=== PATIENT | female | born 1950 | race American Indian/Alaskan Native ===

== ENCOUNTER 2018-07-31 20:35 | Inpatient (IN) | payer MEDICARE ==
[2018-07-31] MEDS ORDERED: NACL 0.9% 500 ML 500 ML IV ONE (21:01)
[2018-07-31] MEDS ORDERED: KEPPRA 1,000 MG/NS 0.75% 100ML 1,000 MG/100 ML BAG IV ONE (21:03)
--- NOTE | 2018-07-31 21:14 | Emergency Department Report ---
ED Altered Mental Status HPI - General Stated Complaint: WEAKNESS Time Seen by Provider: 07/31/18 20:50 - History of Present Illness Initial Comments: Mrs. Jones is a 67 yo female with hx of alcoholism, diabetes, seizure disorder, hepatic encephalopathy, alcohol related dementia, Hepatitis C, alcoholic liver disease who presents with altered mental status. Roommate reported to EMS that patient has been sitting on the couch in her own feces for the past 3 days without moving. Patient unable to give history due to altered mental status. Medical history obtained from EMR. In 2017, Mrs. Jones had a prolonged ICU course including intubation, tracheostomy, hemodialysis for status epilepticus, gram negative sepisis, hepatic encephalopathy. According to male friend, her last drink of alcohol was 4-5 days ago. She does not take any of her prescribed medications. She recently was discharged from a senior living 4-5 months ago. MD Complaint: altered mental status -: Gradual, days(s) (3) Severity: severe Consistency of Symptoms: getting worse Context: alcohol abuse Associated Symptoms: other (unable to obtain) - Related Data Previous Rx's Medication Instructions Recorded Last Taken Type Folic Acid [Folvite] 1 mg PO DAILY #30 tablet 01/29/17 Unknown Rx Ipratropium/Albuterol Sulfate 1 ampul IH Q6HRT #30 ampul.neb 01/29/17 Unknown Rx [DUONEB *Not for PRN Use*] Multivitamins Liq [Multiple 5 ml PO QDAY #5 oral.liqd 01/29/17 Unknown Rx Vitamin Liq (Theragran)] Petrolatum,White [Vaseline Lip 1 applic TP Q2HR PRN #1 tube 01/29/17 Unknown Rx Therapy] Potassium Chloride [K-Dur] 20 meq PO QDAY #10 tablet 01/29/17 Unknown Rx Rifaximin [Xifaxan] 550 mg PO BID #66 tablet 01/29/17 Unknown Rx Thiamine [Vitamin B-1] 100 mg PO QDAY #30 tablet 01/29/17 Unknown Rx Verapamil [Calan] 80 mg PO Q8HR #90 tablet 01/29/17 Unknown Rx levETIRAcetam [Keppra TAB] 750 mg PO BID #60 tablet 01/29/17 Unknown Rx Allergies Allergy/AdvReac Type Severity Reaction Status Date / Time No Known Allergies Allergy Verified 01/06/17 23:38 ED Review of Systems ROS: Stated complaint: WEAKNESS Other details as noted in HPI Comment: Unobtainable due to pts medical conditions (unable to obtain due to altered mental status) ED Past Medical Hx - Past Medical History Previous Medical History?: Yes Hx Congestive Heart Failure: No Hx Diabetes: No Hx Deep Vein Thrombosis: No Hx Seizures: Yes (- 12/2016) Hx Asthma: No Hx COPD: No Additional medical history: alcoholism - Surgical History Hx Pacemaker: No Hx Internal Defibrillator: No - Family History Family history: other (unable to be obtained) - Social History Smoking Status: Unknown if ever smoked Substance Use Type: Alcohol - Medications Home Medications: Home Medications Medication Instructions Recorded Confirmed Last Taken Type Folic Acid [Folvite] 1 mg PO DAILY #30 tablet 01/29/17 Unknown Rx Ipratropium/Albuterol Sulfate 1 ampul IH Q6HRT #30 ampul.neb 01/29/17 Unknown Rx [DUONEB *Not for PRN Use*] Multivitamins Liq [Multiple 5 ml PO QDAY #5 oral.liqd 01/29/17 Unknown Rx Vitamin Liq (Theragran)] Petrolatum,White [Vaseline Lip 1 applic TP Q2HR PRN #1 tube 01/29/17 Unknown Rx Therapy] Potassium Chloride [K-Dur] 20 meq PO QDAY #10 tablet 01/29/17 Unknown Rx Rifaximin [Xifaxan] 550 mg PO BID #66 tablet 01/29/17 Unknown Rx Thiamine [Vitamin B-1] 100 mg PO QDAY #30 tablet 01/29/17 Unknown Rx Verapamil [Calan] 80 mg PO Q8HR #90 tablet 01/29/17 Unknown Rx levETIRAcetam [Keppra TAB] 750 mg PO BID #60 tablet 01/29/17 Unknown Rx ED Physical Exam - General General appearance: lethargic, other (when asked name: She says "10") - Head Head exam: Present: atraumatic, normocephalic - Eye Eye exam: Present: conjunctival injection, other (dried discharge on eyelids) Pupils: Present: normal accommodation, irregular - ENT ENT exam: Present: mucous membranes dry - Neck Neck exam: Present: normal inspection, full ROM. Absent: tenderness - Respiratory Respiratory exam: Present: normal lung sounds bilaterally. Absent: respiratory distress, wheezes, rales, rhonchi - Cardiovascular Cardiovascular Exam: Present: normal rhythm, tachycardia, normal heart sounds. Absent: systolic murmur, diastolic murmur, rubs, gallop - GI/Abdominal GI/Abdominal exam: Present: soft, normal bowel sounds. Absent: distended, tenderness, guarding, rebound - Extremities Exam Extremities exam: Present: normal inspection - Back Exam Back exam: Present: normal inspection - Neurological Exam Neurological exam: Present: altered - Psychiatric Psychiatric exam: Present: flat affect - Skin Skin exam: Present: dry, other (diffuse moist excoriated skin buttocks, back, lichenified skin ankles, healing laceration left thigh). Absent: rash - Other Other exam information: Moist erythematous patches under breasts and abdominal pannus ED Course Vital Signs 07/31/18 07/31/18 21:08 22:56 Temperature 98.0 F Pulse Rate 113 H Respiratory 20 20 Rate Blood Pressure 164/92 [Left] O2 Sat by Pulse 99 99 Oximetry - Lab Data Result diagrams: 07/31/18 21:36 07/31/18 21:36 Lab Results 07/31/18 07/31/18 07/31/18 Range/Units 21:36 21:36 21:36 WBC 6.0 (4.5-11.0) K/mm3 RBC 4.72 (3.65-5.03) M/mm3 Hgb 17.7 H (10.1-14.3) gm/dl Hct 50.7 H (30.3-42.9) % MCV 108 H (79-97) fl MCH 37 H (28-32) pg MCHC 35 H (30-34) % RDW 15.9 H (13.2-15.2) % Plt Count (140-440) K/mm3 [place] % (Auto) [employer] Winder PT 17.2 H (12.2-14.9) Sec. INR 1.32 H (0.87-1.13) Sodium (137-145) mmol/L Potassium (3.6-5.0) mmol/L Chloride (98-107) mmol/L Carbon Dioxide (22-30) mmol/L Anion Gap mmol/L BUN (7-17) mg/dL Creatinine (0.7-1.2) mg/dL Estimated GFR ml/min BUN/Creatinine Ratio % Glucose (65-100) mg/dL Lactic Acid 3.30 H* (0.7-2.0) mmol/L Calcium (8.4-10.2) mg/dL Total Bilirubin (0.1-1.2) mg/dL AST (5-40) units/L ALT (7-56) units/L Alkaline Phosphatase (35-129) units/L Ammonia (25-60) umol/L Total Creatine Kinase (30-135) units/L Troponin T (0.00-0.029) ng/mL Total Protein (6.3-8.2) g/dL Albumin (3.9-5) g/dL Albumin/Globulin Ratio % TSH (0.270-4.200) mlU/mL Urine Color (Yellow) Urine Turbidity (Clear) Urine pH (5.0-7.0) Ur Specific [place] (1.003-1.030) Urine Protein (Negative) mg/dL Urine Glucose (UA) (Negative) mg/dL Urine Ketones (Negative) mg/dL Urine Blood (Negative) Urine Nitrite (Negative) Urine Bilirubin (Negative) Urine Urobilinogen (<2.0) mg/dL Ur Leukocyte Esterase (Negative) Urine WBC (Auto) (0.0-6.0) /HPF Urine RBC (Auto) (0.0-6.0) /HPF U Epithel Cells (Auto) (0-13.0) /HPF Urine Mucus /HPF Salicylates (2.8-20.0) mg/dL Urine Opiates Screen Urine Methadone Screen Acetaminophen (10.0-30.0) ug/mL Ur Barbiturates Screen Ur Phencyclidine Scrn Ur Amphetamines Screen U Benzodiazepines Scrn Urine Cocaine Screen U Marijuana (THC) Screen Drugs of Abuse Note Plasma/Serum Alcohol (0-0.07) % 07/31/18 07/31/18 07/31/18 Range/Units 21:36 21:36 21:36 WBC (4.5-11.0) K/mm3 RBC (3.65-5.03) M/mm3 Hgb (10.1-14.3) gm/dl Hct (30.3-42.9) % MCV (79-97) fl MCH (28-32) pg MCHC (30-34) % RDW (13.2-15.2) % Plt Count (140-440) K/mm3 [place] % (Auto) PT (12.2-14.9) Sec. INR (0.87-1.13) Sodium 144 (137-145) mmol/L Potassium 3.8 (3.6-5.0) mmol/L Chloride 98.3 (98-107) mmol/L Carbon Dioxide 26 (22-30) mmol/L Anion Gap 24 mmol/L BUN 43 H (7-17) mg/dL Creatinine 1.2 (0.7-1.2) mg/dL Estimated GFR 55 ml/min BUN/Creatinine Ratio 36 % Glucose 148 H (65-100) mg/dL Lactic Acid (0.7-2.0) mmol/L Calcium 10.0 (8.4-10.2) mg/dL Total Bilirubin 5.70 H (0.1-1.2) mg/dL AST 63 H (5-40) units/L ALT 38 (7-56) units/L Alkaline Phosphatase 96 (35-129) units/L Ammonia 166.0 H (25-60) umol/L Total Creatine Kinase 292 H (30-135) units/L Troponin T 0.025 (0.00-0.029) ng/mL Total Protein 8.4 H (6.3-8.2) g/dL Albumin 3.3 L (3.9-5) g/dL Albumin/Globulin Ratio 0.6 % TSH 1.840 (0.270-4.200) mlU/mL Urine Color (Yellow) Urine Turbidity (Clear) Urine pH (5.0-7.0) Ur Specific [place] (1.003-1.030) Urine Protein (Negative) mg/dL Urine Glucose (UA) (Negative) mg/dL Urine Ketones (Negative) mg/dL Urine Blood (Negative) Urine Nitrite (Negative) Urine Bilirubin (Negative) Urine Urobilinogen (<2.0) mg/dL Ur Leukocyte Esterase (Negative) Urine WBC (Auto) (0.0-6.0) /HPF Urine RBC (Auto) (0.0-6.0) /HPF U Epithel Cells (Auto) (0-13.0) /HPF Urine Mucus /HPF Salicylates (2.8-20.0) mg/dL Urine Opiates Screen Urine Methadone Screen Acetaminophen (10.0-30.0) ug/mL Ur Barbiturates Screen Ur Phencyclidine Scrn Ur Amphetamines Screen U Benzodiazepines Scrn Urine Cocaine Screen U Marijuana (THC) Screen Drugs of Abuse Note Plasma/Serum Alcohol (0-0.07) % 07/31/18 07/31/18 07/31/18 Range/Units 21:36 22:36 22:36 WBC (4.5-11.0) K/mm3 RBC (3.65-5.03) M/mm3 Hgb (10.1-14.3) gm/dl Hct (30.3-42.9) % MCV (79-97) fl MCH (28-32) pg MCHC (30-34) % RDW (13.2-15.2) % Plt Count (140-440) K/mm3 [place] % (Auto) PT (12.2-14.9) Sec. INR (0.87-1.13) Sodium (137-145) mmol/L Potassium (3.6-5.0) mmol/L Chloride (98-107) mmol/L Carbon Dioxide (22-30) mmol/L Anion Gap mmol/L BUN (7-17) mg/dL Creatinine (0.7-1.2) mg/dL Estimated GFR ml/min BUN/Creatinine Ratio % Glucose (65-100) mg/dL Lactic Acid (0.7-2.0) mmol/L Calcium (8.4-10.2) mg/dL Total Bilirubin (0.1-1.2) mg/dL AST (5-40) units/L ALT (7-56) units/L Alkaline Phosphatase (35-129) units/L Ammonia (25-60) umol/L Total Creatine Kinase (30-135) units/L Troponin T (0.00-0.029) ng/mL Total Protein (6.3-8.2) g/dL Albumin (3.9-5) g/dL Albumin/Globulin Ratio % TSH (0.270-4.200) mlU/mL Urine Color [place] (Yellow) Urine Turbidity Clear (Clear) Urine pH 5.0 (5.0-7.0) Ur Specific [place] 1.028 (1.003-1.030) Urine Protein 100 mg/dl (Negative) mg/dL Urine Glucose (UA) Neg (Negative) mg/dL Urine Ketones Neg (Negative) mg/dL Urine Blood Sm (Negative) Urine Nitrite Neg (Negative) Urine Bilirubin Neg (Negative) Urine Urobilinogen 4.0 (<2.0) mg/dL Ur Leukocyte Esterase Mod (Negative) Urine WBC (Auto) 118.0 H (0.0-6.0) /HPF Urine RBC (Auto) 5.0 (0.0-6.0) /HPF U Epithel Cells (Auto) 3.0 (0-13.0) /HPF Urine Mucus Few /HPF Salicylates (2.8-20.0) mg/dL Urine Opiates Screen Presumptive negative Urine Methadone Screen Presumptive negative Acetaminophen < 5.0 L (10.0-30.0) ug/mL Ur Barbiturates Screen Presumptive negative Ur Phencyclidine Scrn Presumptive negative Ur Amphetamines Screen Presumptive negative U Benzodiazepines Scrn Presumptive negative Urine Cocaine Screen Presumptive negative U Marijuana (THC) Screen Presumptive negative Drugs of Abuse Note Disclamer Plasma/Serum Alcohol (0-0.07) % 07/31/18 07/31/18 07/31/18 Range/Units 22:36 Unknown Unknown WBC (4.5-11.0) K/mm3 RBC (3.65-5.03) M/mm3 Hgb (10.1-14.3) gm/dl Hct (30.3-42.9) % MCV (79-97) fl MCH (28-32) pg MCHC (30-34) % RDW (13.2-15.2) % Plt Count (140-440) K/mm3 [place] % (Auto) PT (12.2-14.9) Sec. INR (0.87-1.13) Sodium (137-145) mmol/L Potassium (3.6-5.0) mmol/L Chloride (98-107) mmol/L Carbon Dioxide (22-30) mmol/L Anion Gap mmol/L BUN (7-17) mg/dL Creatinine (0.7-1.2) mg/dL Estimated GFR ml/min BUN/Creatinine Ratio % Glucose (65-100) mg/dL Lactic Acid 4.30 H* (0.7-2.0) mmol/L Calcium (8.4-10.2) mg/dL Total Bilirubin (0.1-1.2) mg/dL AST (5-40) units/L ALT (7-56) units/L Alkaline Phosphatase (35-129) units/L Ammonia (25-60) umol/L Total Creatine Kinase (30-135) units/L Troponin T (0.00-0.029) ng/mL Total Protein (6.3-8.2) g/dL Albumin (3.9-5) g/dL Albumin/Globulin Ratio % TSH (0.270-4.200) mlU/mL Urine Color (Yellow) Urine Turbidity (Clear) Urine pH (5.0-7.0) Ur Specific [place] (1.003-1.030) Urine Protein (Negative) mg/dL Urine Glucose (UA) (Negative) mg/dL Urine Ketones (Negative) mg/dL Urine Blood (Negative) Urine Nitrite (Negative) Urine Bilirubin (Negative) Urine Urobilinogen (<2.0) mg/dL Ur Leukocyte Esterase (Negative) Urine WBC (Auto) (0.0-6.0) /HPF Urine RBC (Auto) (0.0-6.0) /HPF U Epithel Cells (Auto) (0-13.0) /HPF Urine Mucus /HPF Salicylates < 0.3 L (2.8-20.0) mg/dL Urine Opiates Screen Urine Methadone Screen Acetaminophen (10.0-30.0) ug/mL Ur Barbiturates Screen Ur Phencyclidine Scrn Ur Amphetamines Screen U Benzodiazepines Scrn Urine Cocaine Screen U Marijuana (THC) Screen Drugs of Abuse Note Plasma/Serum Alcohol < 0.01 (0-0.07) % - Medical Decision Making 1. Acute metabolic encephalopathy. Hepatic encephalopathy with hyperammonemia is evident. Also must consider delirium tremens with last drink of alcohol 4-5 as ago. Additional consideration: Wernicke's encephalopathy, NGT ordered with lactulose administered per tube 2. SIRS, lactic acidosis, UTI, cath UA specimen revealed pyuria, hx of UTI sepsis 2017, placed on sepsis protocol with IVF and broad spectrum antibiotics 3. KERRI, minimal urine output over 6 hours, poor po intake, dehydration, IVF instituted 4. Seizure disorder hx: IV keppra administed in ED 5. Sequela of alcoholic liver disease: Coagulopathy, thrombocytopenia 6. Diffuse skin excoriations due to poor hygiene, prolonged immobilization and moisture exposure, will need wound care 7. Tinea cruris at the breast and pannus Admitted to hospitalist service in guarded condition. Critical Care Time: Yes Critical care time in (mins) excluding proc time.: 65 Critical care attestation.: If time is entered above; I have spent that time in minutes in the direct care of this critically ill patient, excluding procedure time. 60 minutes of critical care time excluding procedures were used in the care of the patient. Patient required multiple assessments and interventions. I reviewed the electronic medical record. I spoke with consultants involved in the care of the patient. ED Disposition Clinical Impression: Acute hepatic encephalopathy, UTI (urinary tract infection), Sepsis, KERRI (acute kidney injury), Alcoholic liver disease, Tinea cruris, Skin breakdown Disposition: [id number] OP ADMIT IP TO THIS HOSP Is pt being admited?: Yes Does the pt Need Aspirin: No Condition: Stable
--- NOTE | 2018-07-31 22:12 | XRay Report ---
PROCEDURE: XR CHEST 1V AP TECHNIQUE: Chest radiograph single view. HISTORY: Altered Mental Status COMPARISONS: None . FINDINGS: Heart: Cardiac size is upper limit of normal. Mediastinum/Vessels: There is widening of the superior mediastinum most likely secondary to patient p ositioning. Lungs/Pleural space: Normal. Bony thorax: No acute osseous abnormality. Life support devices: None. IMPRESSION: No obvious acute abnormality. This document is electronically signed by Sim Zamora MD., July 31 2018 10:10:31 PM ET
[2018-07-31 22:15] LABS: Albumin 3.3 g/dL (3.9-5)
[2018-07-31] MEDS ORDERED: CEPHULAC FEEDTUBE STA (22:15)
[2018-07-31 22:21] LABS: INR 1.32 (0.87-1.13)
[2018-07-31 22:55] LABS: Amphetamine Screen,Urine PRESUMPTIVE NEGATIVE; Benzodiazepines Screen,Urine PRESUMPTIVE NEGATIVE; Cannabinoid Screen,Urine PRESUMPTIVE NEGATIVE; Cocaine Screen,Urine PRESUMPTIVE NEGATIVE; Methadone Screen,Urine PRESUMPTIVE NEGATIVE; Opiate Screen,Urine PRESUMPTIVE NEGATIVE
[2018-07-31] MEDS ORDERED: NACL 0.9% 1000 ML IV ONE (22:55)
--- NOTE | 2018-07-31 23:17 | Cat Scan Report ---
PROCEDURE: CT HEAD/BRAIN WO CON TECHNIQUE: Computerized tomography of the head was performed without contrast material. CT DOSE LENGTH PRODUCT: 1169 mGycm HISTORY: Altered Mental Status COMPARISONS: None . FINDINGS: Skull and scalp: Normal . Paranasal sinuses: Normal . Ventricles and subarachnoid spaces: Normal . Cerebrum: No evidence of hemorrhage, acute infarction or mass. Moderate atrophy and slight periventr icular deep white matter changes are noted. . Cerebellum and brainstem: No evidence of hemorrhage, acute infarction or mass . Vasculature: Normal . Other: None . ASPECTS: 10 IMPRESSION: There is no evidence of an acute intracranial process. Moderate atrophy and slight periv entricular deep white matter changes are noted. . This document is electronically signed by Enid Ko DO., July 31 2018 11:14:28 PM ET
[2018-07-31 23:28] LABS: Hematocrit 50.7 % (30.3-42.9); Hemoglobin 17.7 gm/dl (10.1-14.3); Mean Corpuscular HGB Conc 35 % (30-34); Mean Corpuscular Volume 108 fl (79-97); Red Blood Count 4.72 M/mm3 (3.65-5.03); Red Cell Distribution Width 15.9 % (13.2-15.2)
[2018-07-31] MEDS: MAXIPIME/NS 2 GM/100 ML 2 GM/100 ML BAG IV SCH (23:50)
[2018-07-31 23:59] LABS: Bilirubin,Urine NEG (Negative); Blood,Urine SM (Negative); Color,Urine Amber (Yellow); Mucus,Urine FEW /HPF
[2018-08-01] MEDS ORDERED: ATIVAN IV ONE (00:43)
[2018-08-01] MEDS ORDERED: NORMODYNE IV ONE (00:43)
[2018-08-01] MEDS ORDERED: ZOFRAN IV PRN (01:08)
[2018-08-01] MEDS ORDERED: SODIUM CHLORIDE FLUSH SYRINGE 10 ML IV PRN (01:08)
--- NOTE | 2018-08-01 01:12 | History and Physical Report ---
History of Present Illness Date of examination: 07/31/18 History of present illness: 67-year-old woman with a history of diabetes, seizures, hepatitis C, dementia was brought to the emergency room for evaluation of altered mental status. Physician reported that the perforation, the patient was sitting in her feces for 3 days. Unable to reach family, patient is unable to give a history, review of system is unobtainable PAST MEDICAL HISTORY:diabetes, seizures, hepatitis C, dementia PAST SURGICAL HISTORY: Unknown SOCIAL HISTORY: Unknown FAMILY HISTORY: Unknown Medications and Allergies Allergies Allergy/AdvReac Type Severity Reaction Status Date / Time No Known Allergies Allergy Verified 01/06/17 23:38 Home Medications Medication Instructions Recorded Confirmed Last Taken Type Folic Acid [Folvite] 1 mg PO DAILY #30 tablet 01/29/17 Unknown Rx Ipratropium/Albuterol Sulfate 1 ampul IH Q6HRT #30 ampul.neb 01/29/17 Unknown Rx [DUONEB *Not for PRN Use*] Multivitamins Liq [Multiple 5 ml PO QDAY #5 oral.liqd 01/29/17 Unknown Rx Vitamin Liq (Theragran)] Petrolatum,White [Vaseline Lip 1 applic TP Q2HR PRN #1 tube 01/29/17 Unknown Rx Therapy] Potassium Chloride [K-Dur] 20 meq PO QDAY #10 tablet 01/29/17 Unknown Rx Rifaximin [Xifaxan] 550 mg PO BID #66 tablet 01/29/17 Unknown Rx Thiamine [Vitamin B-1] 100 mg PO QDAY #30 tablet 01/29/17 Unknown Rx Verapamil [Calan] 80 mg PO Q8HR #90 tablet 01/29/17 Unknown Rx levETIRAcetam [Keppra TAB] 750 mg PO BID #60 tablet 01/29/17 Unknown Rx Active Meds: Active Medications Cefepime HCl (Maxipime/Ns 2 Gm/100 Ml) 2 gm in 100 mls @ 200 mls/hr IV Q12HR CONNIE; Protocol Last Admin: 07/31/18 23:50 Dose: 200 mls/hr Documented by: Sodium Chloride (Nacl 0.9% 1000 Ml) 1,000 mls @ 100 mls/hr IV DIRECT CONNIE Ondansetron HCl (Zofran) 4 mg IV Q4H PRN PRN Reason: Nausea And Vomiting Sodium Chloride (Sodium Chloride Flush Syringe 10 Ml) 10 ml IV BID CONNIE Sodium Chloride (Sodium Chloride Flush Syringe 10 Ml) 10 ml IV PRN PRN PRN Reason: LINE FLUSH Exam - Physical Exam Narrative exam: General Apperance: The patient lying in bed, breathing comfortable HEENT: Normocephalic, atraumatic. Pupils equally round and reactive to light, unable to do EOM, no sclericterus or JVD or thyromegaly or nodule. , no carotid bruit, mucous membranes moist, unable to examine oral cavity Heart: S1-S2, regular is rhythm Lungs: Clear to auscultation bilaterally, breathing comfortable Abdomen: Positive bowel sounds, soft, nondistended, no organomegaly Extremities: No edema cyanosis clubbing Skin: no rash, nodule, warm and dry Neuro: sedated - Constitutional Vitals: Temp Pulse Resp BP Pulse Ox 98.0 F 113 H 20 164/92 99 07/31/18 21:08 07/31/18 21:08 07/31/18 22:56 07/31/18 21:08 07/31/18 22:56 Results - Labs CBC & Chem 7: 08/01/18 03:48 08/01/18 03:48 Labs: Abnormal lab results 07/31/18 07/31/18 07/31/18 Range/Units 21:36 21:36 21:36 Hgb 17.7 H (10.1-14.3) gm/dl Hct 50.7 H (30.3-42.9) % MCV 108 H (79-97) fl MCH 37 H (28-32) pg MCHC 35 H (30-34) % RDW 15.9 H (13.2-15.2) % PT 17.2 H (12.2-14.9) Sec. INR 1.32 H (0.87-1.13) BUN (7-17) mg/dL Glucose (65-100) mg/dL Lactic Acid 3.30 H* (0.7-2.0) mmol/L Total Bilirubin (0.1-1.2) mg/dL AST (5-40) units/L Ammonia (25-60) umol/L Total Creatine Kinase (30-135) units/L Total Protein (6.3-8.2) g/dL Albumin (3.9-5) g/dL Urine WBC (Auto) (0.0-6.0) /HPF Salicylates (2.8-20.0) mg/dL Acetaminophen (10.0-30.0) ug/mL 07/31/18 07/31/18 07/31/18 Range/Units 21:36 21:36 21:36 Hgb (10.1-14.3) gm/dl Hct (30.3-42.9) % MCV (79-97) fl MCH (28-32) pg MCHC (30-34) % RDW (13.2-15.2) % PT (12.2-14.9) Sec. INR (0.87-1.13) BUN 43 H (7-17) mg/dL Glucose 148 H (65-100) mg/dL Lactic Acid (0.7-2.0) mmol/L Total Bilirubin 5.70 H (0.1-1.2) mg/dL AST 63 H (5-40) units/L Ammonia 166.0 H (25-60) umol/L Total Creatine Kinase 292 H (30-135) units/L Total Protein 8.4 H (6.3-8.2) g/dL Albumin 3.3 L (3.9-5) g/dL Urine WBC (Auto) (0.0-6.0) /HPF Salicylates (2.8-20.0) mg/dL Acetaminophen < 5.0 L (10.0-30.0) ug/mL 07/31/18 07/31/18 07/31/18 Range/Units 22:36 22:36 Unknown Hgb (10.1-14.3) gm/dl Hct (30.3-42.9) % MCV (79-97) fl MCH (28-32) pg MCHC (30-34) % RDW (13.2-15.2) % PT (12.2-14.9) Sec. INR (0.87-1.13) BUN (7-17) mg/dL Glucose (65-100) mg/dL Lactic Acid 4.30 H* (0.7-2.0) mmol/L Total Bilirubin (0.1-1.2) mg/dL AST (5-40) units/L Ammonia (25-60) umol/L Total Creatine Kinase (30-135) units/L Total Protein (6.3-8.2) g/dL Albumin (3.9-5) g/dL Urine WBC (Auto) 118.0 H (0.0-6.0) /HPF Salicylates < 0.3 L (2.8-20.0) mg/dL Acetaminophen (10.0-30.0) ug/mL - Imaging and Cardiology CT Scan - head: report reviewed Assessment and Plan Assessment Hepatic encephalopathy Urinary tract infection diabetes seizures hepatitis C dementia Plan Admit to medicine Continue lactulose, IV antibiotics, IV fluid DVT prophylaxis
--- NOTE | 2018-08-01 01:15 | XRay Report ---
PROCEDURE: XR ABDOMEN 1V AP TECHNIQUE: Abdominal radiograph, single view. HISTORY: ngt confirmation COMPARISONS: None . FINDINGS: Bowel gas pattern: Nonobstructive . Masses or calcifications: None . Bony structures: No significant abnormality . Other: The nasogastric tube ends in the stomach . IMPRESSION: The nasogastric tube ends in the stomach. This document is electronically signed by Enid Ko DO., August 01 2018 01:13:17 AM ET
[2018-08-01] MEDS ORDERED: NACL 0.9% 1000 ML 1,000 ML IV SCH (02:00)
[2018-08-01] MEDS ORDERED: NACL 0.9% 1000 ML 1,000 ML ONE (04:03)
[2018-08-01 04:10] LABS: Hematocrit 46.4 % (30.3-42.9); Mean Corpuscular HGB Conc 34 % (30-34); Mean Corpuscular Volume 108 fl (79-97); Red Blood Count 4.29 M/mm3 (3.65-5.03); Red Cell Distribution Width 15.8 % (13.2-15.2)
[2018-08-01 04:34] LABS: BUN/Creatinine Ratio 43; Blood Urea Nitrogen 39 mg/dL (7-17); Calcium 8.6 mg/dL (8.4-10.2); Hemolysis Index 24
[2018-08-01] MEDS ORDERED: D50W (25GM) Syringe IV PRN (04:36)
[2018-08-01] MEDS ORDERED: D5/0.45NS 1,000 ML IV SCH (05:00)
[2018-08-01 05:05] LABS: Platelet Count 96 K/mm3 (140-440)
[2018-08-01] MEDS ORDERED: MAXIPIME/NS 2 GM/100 ML 2 GM/100 ML BAG IV SCH (06:00)
[2018-08-01 06:43] LABS: Band Neutrophils # (Manual) 0.4 K/mm3; Basophils % (Manual) 0 % (0.0-1.8); Eosinophils % (Manual) 0 % (0.0-4.3); Total Cells Counted 100
[2018-08-01 06:44] LABS: Anisocytosis 1+; Macrocytosis 1+; Platelet Estimate Appears Decreased
[2018-08-01] MEDS: CEPHULAC PO SCH ×3 (06:45→18:44)
[2018-08-01] MEDS ORDERED: CEPHULAC ONE ×2 (06:47→14:06)
[2018-08-01 06:50] LABS: Band Neutrophils # (Manual) 0.3 K/mm3; Basophils % (Manual) 0 % (0.0-1.8); Eosinophils % (Manual) 0 % (0.0-4.3); Total Cells Counted 100
[2018-08-01 06:51] LABS: Anisocytosis 1+; Macrocytosis 1+; Platelet Estimate Appears Decreased
[2018-08-01 07:05] LABS: Platelet Count 72 K/mm3 (140-440)
[2018-08-01] MEDS: KEPPRA 750 MG in NACL 0.9% 100 ML IV SCH ×2 (10:11→22:25)
[2018-08-01] MEDS: SODIUM CHLORIDE FLUSH SYRINGE 10 ML IV SCH ×2 (10:32→22:26)
--- NOTE | 2018-08-01 12:36 | Event Note ---
Date: 08/01/18 67-year-old woman with a history of diabetes, seizures, hepatitis C, dementia was brought to the emergency room for evaluation of altered mental status. Will cont current Mx and plan as dictated in H/p follow LFT/ammonia, follow blood cx, cont abx- add vancomycin as growing gm positive cocci monitor clinically
[2018-08-01] MEDS: MAXIPIME/NS 2 GM/100 ML 2 GM/100 ML BAG IV SCH ×2 (13:07→22:49)
[2018-08-01 14:06] LABS: Albumin 2.7 g/dL (3.9-5); Bilirubin,Direct 2.7 mg/dL (0-0.2)
[2018-08-01] MEDS ORDERED: VANCOMYCIN/NS 1 GM/250 ML 1 GM/250 ML BAG IV SCH (19:00)
[2018-08-01] MEDS ORDERED: VANCOMYCIN 1,500 MG in NACL 0.9% 500 ML 500 ML IV ONE (19:30)
[2018-08-01] MEDS ORDERED: MAXIPIME/NS 2 GM/100 ML 2 GM/100 ML BAG IV ONE (22:20)
[2018-08-02] MEDS: CEPHULAC PO SCH ×4 (00:29→19:25)
[2018-08-02] MEDS ORDERED: D5/0.45NS 1,000 ML IV ONE (06:48)
[2018-08-02] MEDS ORDERED: D5/0.45NS 1,000 ML IV SCH (07:00)
[2018-08-02] MEDS: VANCOMYCIN 1,250 MG in NACL 0.9% 250ML 250 ML IV SCH (13:32)
[2018-08-02] MEDS: SODIUM CHLORIDE FLUSH SYRINGE 10 ML IV SCH ×2 (13:32→22:26)
[2018-08-02] MEDS ORDERED: CEPHULAC ONE ×2 (13:44→18:40)
[2018-08-02] MEDS ORDERED: MAXIPIME/NS 2 GM/100 ML 2 GM/100 ML BAG IV ONE (13:44)
[2018-08-02] MEDS ORDERED: HALDOL ONE (14:34)
[2018-08-02] MEDS: HALDOL IM PRN (14:36)
[2018-08-02 14:46] LABS: Hematocrit 46.1 % (30.3-42.9); Hemoglobin 15.5 gm/dl (10.1-14.3)
[2018-08-02 14:58] LABS: Alanine Aminotransferase 31 units/L (7-56); Albumin 2.7 g/dL (3.9-5); BUN/Creatinine Ratio 36; Blood Urea Nitrogen 25 mg/dL (7-17); Hemolysis Index 39
--- NOTE | 2018-08-02 15:16 | Progress Note ---
Assessment and Plan Acute Hepatic encephalopathy - Continue lactulose, Monitor LFT, ammonia, TF if mental status not improved in next 24 hr Sepsis with UTI, bacteremia and lactic acidosis Urinary tract infection Bacteremia - IV antibiotics, IV fluid, follow cx Diabetes type 2 - Monitor BG with SSI, Seizures disorder - cont keppra Hypernatremia, cont hypotonic fluid hypokalemia, replete Hepatitis C, supportive care - will do GI consult, monitor LFT for now Dementia, by history, cont to monitor DVT prophylaxis, SCD Brief history: Mrs. Jones is a 67 yo female with hx of alcoholism, diabetes, seizure disorder, hepatic encephalopathy, alcohol related dementia, Hepatitis C, alcoholic liver disease who presents with altered mental status. Roommate reported to EMS that patient has been sitting on the couch in her own feces for the past 3 days without moving. Patient unable to give history due to altered mental status. Medical history obtained from EMR. In 2017, Mrs. Jones had a prolonged ICU course including intubation, tracheostomy, hemodialysis for status epilepticus, gram negative sepisis, hepatic encephalopathy. According to male friend, her last drink of alcohol was 4-5 days ago. She does not take any of her prescribed medications. She recently was discharged from a half-way 4-5 months ago. Physical exam: General Apperance: The patient lying in bed, breathing comfortable HEENT: Normocephalic, atraumatic. Pupils equally round and reactive to light, unable to do EOM, no sclericterus or JVD or thyromegaly or nodule, no carotid bruit, mucous membranes moist, unable to examine oral cavity Heart: S1-S2, regular is rhythm Lungs: Clear to auscultation bilaterally, breathing comfortable Abdomen: Positive bowel sounds, soft, nondistended, no organomegaly Extremities: No edema cyanosis clubbing Skin: no rash, nodule, warm and dry Neuro: lethargic Subjective Date of service: 08/02/18 Interval history: patient seen and examined remained lethargic but open eyes with verbal commend No family at bedside denies any chest pain Objective - Constitutional Vitals: Vital Signs - 12hr 08/02/18 08/02/18 08/02/18 03:49 04:00 05:00 Temperature 97.7 F Pulse Rate 77 100 H 91 H Respiratory 21 11 L 18 Rate Blood Pressure 144/86 146/79 Blood Pressure 144/86 [Left] O2 Sat by Pulse 100 95 95 Oximetry 08/02/18 08/02/18 06:00 07:00 Temperature Pulse Rate 94 H 96 H Respiratory 23 20 Rate Blood Pressure 140/89 141/79 Blood Pressure [Left] O2 Sat by Pulse 96 98 Oximetry - Labs CBC & Chem 7: 08/03/18 13:23 08/03/18 13:23 Labs: Abnormal lab results 08/01/18 08/01/18 08/01/18 Range/Units 14:43 15:48 18:47 Hgb (10.1-14.3) gm/dl Hct (30.3-42.9) % Sodium (137-145) mmol/L Potassium (3.6-5.0) mmol/L Chloride (98-107) mmol/L BUN (7-17) mg/dL Glucose (65-100) mg/dL POC Glucose (70-105) Lactic Acid 3.50 H* 3.70 H* 3.70 H* (0.7-2.0) mmol/L Total Bilirubin (0.1-1.2) mg/dL AST (5-40) units/L Albumin (3.9-5) g/dL 08/01/18 08/02/18 08/02/18 Range/Units 22:57 14:15 14:20 Hgb 15.5 H (10.1-14.3) gm/dl Hct 46.1 H (30.3-42.9) % Sodium 152 H (137-145) mmol/L Potassium 3.0 L (3.6-5.0) mmol/L Chloride 112.4 H (98-107) mmol/L BUN 25 H (7-17) mg/dL Glucose 179 H (65-100) mg/dL POC Glucose 108 H (70-105) Lactic Acid (0.7-2.0) mmol/L Total Bilirubin 3.40 H (0.1-1.2) mg/dL AST 64 H (5-40) units/L Albumin 2.7 L (3.9-5) g/dL 08/02/18 08/02/18 Range/Units 14:20 14:30 Hgb (10.1-14.3) gm/dl Hct (30.3-42.9) % Sodium (137-145) mmol/L Potassium (3.6-5.0) mmol/L Chloride (98-107) mmol/L BUN (7-17) mg/dL Glucose (65-100) mg/dL POC Glucose 184 H (70-105) Lactic Acid 2.60 H* (0.7-2.0) mmol/L Total Bilirubin (0.1-1.2) mg/dL AST (5-40) units/L Albumin (3.9-5) g/dL
[2018-08-02] MEDS ORDERED: K-DUR PO NR (16:00)
[2018-08-02] MEDS: MAXIPIME/NS 2 GM/100 ML 2 GM/100 ML BAG IV SCH ×2 (17:35→22:26)
[2018-08-02] MEDS: KEPPRA 750 MG in NACL 0.9% 100 ML IV SCH ×2 (18:36→23:51)
[2018-08-02] MEDS: KCL 20 MEQ in D5NS 0.2% 1,000 ML IV SCH (19:26)
[2018-08-03] MEDS: VANCOMYCIN 1,250 MG in NACL 0.9% 250ML 250 ML IV SCH ×2 (00:09→09:20)
[2018-08-03] MEDS: CEPHULAC PO SCH ×4 (00:58→17:41)
[2018-08-03] MEDS: SODIUM CHLORIDE FLUSH SYRINGE 10 ML IV SCH ×2 (09:21→22:57)
[2018-08-03] MEDS: MAXIPIME/NS 2 GM/100 ML 2 GM/100 ML BAG IV SCH ×2 (10:04→22:56)
[2018-08-03] MEDS: KEPPRA 750 MG in NACL 0.9% 100 ML IV SCH ×2 (10:24→22:56)
[2018-08-03] MEDS: KCL 20 MEQ in D5NS 0.2% 1,000 ML IV SCH (10:25)
[2018-08-03 13:38] LABS: Hematocrit 45.8 % (30.3-42.9); Hemoglobin 15.7 gm/dl (10.1-14.3); Mean Corpuscular HGB Conc 34 % (30-34); Red Blood Count 4.16 M/mm3 (3.65-5.03); Red Cell Distribution Width 16.1 % (13.2-15.2)
[2018-08-03 13:43] LABS: Mean Corpuscular Volume 110 fl (79-97)
[2018-08-03 13:47] LABS: BUN/Creatinine Ratio 44; Blood Urea Nitrogen 22 mg/dL (7-17); Calcium 8.5 mg/dL (8.4-10.2); Hemolysis Index 182
[2018-08-03 14:01] LABS: Albumin 2.5 g/dL (3.9-5); Bilirubin,Direct 0.8 mg/dL (0-0.2)
[2018-08-03 15:00] LABS: Basophils % (Manual) 0 % (0.0-1.8); Total Cells Counted 100
[2018-08-03 15:01] LABS: Macrocytosis 1+; Platelet Estimate Consistent w Auto
[2018-08-03 15:02] LABS: Platelet Count 41 K/mm3 (140-440)
[2018-08-03] MEDS ORDERED: MAGNESIUM SULFATE IV ONE (16:23)
--- NOTE | 2018-08-03 16:23 | Progress Note ---
Assessment and Plan Acute Hepatic encephalopathy - Continue lactulose, Monitor LFT, ammonia, Sepsis with UTI, bacteremia and lactic acidosis Urinary tract infection Bacteremia - IV antibiotics, IV fluid, follow cx Diabetes type 2 - Monitor BG with SSI, Seizures disorder - cont keppra Hypernatremia, cont hypotonic fluid hypokalemia, replete Hepatitis C, supportive care - will do GI consult, monitor LFT for now thrombocytopenia, likely from [facility], cont to monitor Dementia, by history, cont to monitor Alcohol abuse, cont folate, b12, watch for withdrawl DVT prophylaxis, SCD Brief history: Mrs. Jones is a 67 yo female with hx of alcoholism, diabetes, seizure disorder, hepatic encephalopathy, alcohol related dementia, Hepatitis C, alcoholic liver disease who presents with altered mental status. Roommate reported to EMS that patient has been sitting on the couch in her own feces for the past 3 days without moving. Patient unable to give history due to altered mental status. Medical history obtained from EMR. In 2017, Mrs. Jones had a prolonged ICU course including intubation, tracheostomy, hemodialysis for status epilepticus, gram negative sepisis, hepatic encephalopathy. According to male friend, her last drink of alcohol was 4-5 days ago. She does not take any of her prescribed medications. She recently was [facility] a [facility]5 months ago. Physical exam: General Apperance: The patient lying in bed, breathing comfortable HEENT: Normocephalic, atraumatic. Pupils equally round and reactive to light, unable to do EOM, no sclericterus or JVD or thyromegaly or nodule, no carotid bruit, mucous membranes moist, unable to examine oral cavity Heart: S1-S2, regular is rhythm Lungs: Clear to auscultation bilaterally, breathing comfortable Abdomen: Positive bowel sounds, soft, nondistended, no organomegaly Extremities: No edema cyanosis clubbing Skin: no rash, nodule, warm and dry Neuro: alert but oriented to self only Subjective Date of service: 08/03/18 Interval history: patient seen and examined much alert today, follow commend No family at bedside denies any chest pain Objective - Constitutional Vitals: Vital Signs - 12hr 08/03/18 08/03/18 08/03/18 06:00 07:41 08:00 Temperature 98.4 F 98.5 F O2 Sat by Pulse 95 Oximetry 08/03/18 12:00 Temperature 98.4 F O2 Sat by Pulse Oximetry - Labs CBC & Chem 7: 08/04/18 05:17 08/04/18 09:11 Labs: Abnormal lab results 08/02/18 08/03/18 08/03/18 Range/Units 21:54 12:01 13:23 WBC 3.3 L (4.5-11.0) K/mm3 Hgb 15.7 H (10.1-14.3) gm/dl Hct 45.8 H (30.3-42.9) % MCV 110 H (79-97) fl MCH 38 H (28-32) pg RDW 16.1 H (13.2-15.2) % Plt Count 41 L (140-440) K/mm3 Lymphocytes % (Manual) 8.0 L (13.4-35.0) % Monocytes % (Manual) 24.0 H (0.0-7.3) % Eosinophils % (Manual) 5.0 H (0.0-4.3) % Nucleated RBC % 1.0 H (0.0-0.9) % Lymphocytes # (Manual) 0.3 L (1.2-5.4) K/mm3 Chloride (98-107) mmol/L Carbon Dioxide (22-30) mmol/L BUN (7-17) mg/dL Creatinine (0.7-1.2) mg/dL Glucose (65-100) mg/dL POC Glucose 144 H 108 H (70-105) Phosphorus (2.5-4.5) mg/dL Magnesium (1.7-2.3) mg/dL Total Bilirubin (0.1-1.2) mg/dL Direct Bilirubin (0-0.2) mg/dL AST (5-40) units/L Ammonia (25-60) umol/L Albumin (3.9-5) g/dL 08/03/18 08/03/18 08/03/18 Range/Units 13:23 13:23 13:23 WBC (4.5-11.0) K/mm3 Hgb (10.1-14.3) gm/dl Hct (30.3-42.9) % MCV (79-97) fl MCH (28-32) pg RDW (13.2-15.2) % Plt Count (140-440) K/mm3 Lymphocytes % (Manual) (13.4-35.0) % Monocytes % (Manual) (0.0-7.3) % Eosinophils % (Manual) (0.0-4.3) % Nucleated RBC % (0.0-0.9) % Lymphocytes # (Manual) (1.2-5.4) K/mm3 Chloride 112.3 H (98-107) mmol/L Carbon Dioxide 21 L (22-30) mmol/L BUN 22 H (7-17) mg/dL Creatinine 0.5 L (0.7-1.2) mg/dL Glucose 160 H (65-100) mg/dL POC Glucose (70-105) Phosphorus 2.10 L (2.5-4.5) mg/dL Magnesium 1.60 L (1.7-2.3) mg/dL Total Bilirubin 2.50 H (0.1-1.2) mg/dL Direct Bilirubin 0.8 H (0-0.2) mg/dL AST 109 H (5-40) units/L Ammonia 121.0 H (25-60) umol/L Albumin 2.5 L (3.9-5) g/dL
[2018-08-03] MEDS ORDERED: MAGNESIUM SULFATE 1 GM in NACL 0.9% 50 ML IV ONE (17:00)
[2018-08-03] MEDS: D5NS0.3 1,000 ML IV SCH (22:57)
[2018-08-03] MEDS: PHOS-NAK PO SCH (22:57)
[2018-08-04] MEDS: CEPHULAC PO SCH ×4 (00:42→17:46)
[2018-08-04 05:33] LABS: Mean Corpuscular Volume 110 fl (79-97)
[2018-08-04 05:39] LABS: Hematocrit 46.1 % (30.3-42.9); Mean Corpuscular HGB Conc 35 % (30-34); Red Blood Count 4.19 M/mm3 (3.65-5.03); Red Cell Distribution Width 15.5 % (13.2-15.2)
[2018-08-04 07:24] LABS: Basophils % (Manual) 0 % (0.0-1.8); Total Cells Counted 100
[2018-08-04 07:26] LABS: Anisocytosis 1+; Platelet Count 99 K/mm3 (140-440); Platelet Estimate Consistent w Auto
[2018-08-04] MEDS: MAXIPIME/NS 2 GM/100 ML 2 GM/100 ML BAG IV SCH ×2 (09:56→22:36)
[2018-08-04] MEDS: KEPPRA 750 MG in NACL 0.9% 100 ML IV SCH ×2 (09:57→23:32)
[2018-08-04] MEDS: PHOS-NAK PO SCH ×2 (09:57→22:37)
[2018-08-04] MEDS: SODIUM CHLORIDE FLUSH SYRINGE 10 ML IV SCH ×2 (09:58→22:37)
[2018-08-04 10:02] LABS: Alanine Aminotransferase 56 units/L (7-56); Albumin 2.5 g/dL (3.9-5); BUN/Creatinine Ratio 31; Blood Urea Nitrogen 22 mg/dL (7-17); Calcium 8.8 mg/dL (8.4-10.2); Hemolysis Index 32
--- NOTE | 2018-08-04 10:38 | Gastroenterology Consultation ---
<CALEB ALBERTO - Last Filed: 08/04/18 11:13> History of Present Illness - Reason for Consult Consult date: 08/04/18 hepatic encephalopathy Requesting physician: FRANCOIS SARKAR - History of Present Illness Patient is a 67 y/o female with PMH of liver disease 2/2 ETOH abuse/hep C, hepatic encephalopathy, alcohol related dementia, diabetes, and seizure disorder who presented to ED for AMS. Upon admission, she was found to have sepsis 2/2 UTI and elevated ammonia level. GI has been consulted for hepatic encephalopathy. Patient is previously known to our service from a consult in 2017 for similar symptoms (had a prolonged ICU course during that admission including intubation, tracheostomy, hemodialysis for status epilepticus, gram ne gative sepsis, and HE). This morning patient was resting in bed w/o acute distress. Noted to be alert but oriented to person only. No family at bedside. Denies CP, SOB, wt loss, abd pain, jaundice, N/V, or signs of bleeding. Tolerating diet. Upon exam, abdomen is benign and stool in rectal tube is liquid brown. Still actively drinking alcohol with last drink a few days ago (nursing states she has been asking for a beer this am) and non-compliant with taking home medications per chart review. Past History Past Medical History: other (as per HPI) Past Surgical History: Other (unknown) Social history: alcohol abuse Medications and Allergies Allergies Allergy/AdvReac Type Severity Reaction Status Date / Time No Known Allergies Allergy Verified 01/06/17 23:38 Home Medications Medication Instructions Recorded Confirmed Last Taken Type Unobtainable 08/01/18 08/01/18 Unknown History Active Meds: Active Medications Dextrose (D50w (25gm) Syringe) 50 ml IV PRN PRN PRN Reason: Hypoglycemia Haloperidol Lactate (Haldol) 5 mg IM Q6H PRN PRN Reason: Agitation Last Admin: 08/02/18 14:36 Dose: 5 mg Documented by: Cefepime HCl (Maxipime/Ns 2 Gm/100 Ml) 2 gm in 100 mls @ 200 mls/hr IV Q12HR CONNIE; Protocol Last Admin: 08/04/18 09:56 Dose: 200 mls/hr Documented by: Levetiracetam 750 mg/ Sodium (Chloride) 107.5 mls @ 400 mls/hr IV Q12HR CONNIE Last Admin: 08/04/18 09:57 Dose: 400 mls/hr Documented by: Dextrose/Sodium Chloride ([id number]) 1,000 mls @ 42 mls/hr IV DIRECT [facility] Last Admin: 08/03/18 22:57 Dose: 42 mls/hr Documented by: Lactulose (Cephulac) 20 gm PO Q6HR [facility] Last Admin: 08/04/18 07:06 Dose: 20 gm Documented by: Ondansetron HCl (Zofran) 4 mg IV Q4H PRN PRN Reason: Nausea And Vomiting Potassium Phos/Sodium Phos (Phos-Nak) 1 each PO Q12HR [facility] Last Admin: 08/04/18 09:57 Dose: 1 each Documented by: Sodium Chloride (Sodium Chloride Flush Syringe 10 Ml) 10 ml IV BID [facility] Last Admin: 08/04/18 09:58 Dose: 10 ml Documented by: Sodium Chloride (Sodium Chloride Flush Syringe 10 Ml) 10 ml IV PRN PRN PRN Reason: LINE FLUSH medications reviewed/updated as required Review of Systems - Review of Systems All systems: negative Gastrointestinal: no abdominal pain, no nausea, no vomiting, no hematemesis, no melena, no hematochezia Exam - Constitutional Vital Signs: Temp Pulse Resp BP Pulse Ox 98.2 F 98 H 25 H 150/85 100 08/04/18 08:00 08/04/18 09:00 08/04/18 09:00 08/04/18 09:00 08/04/18 09:00 General appearance: no acute distress - Respiratory Respiratory: bilateral: CTA - Cardiovascular Rhythm: regular - Gastrointestinal General gastrointestinal: Present: soft, non-distended, normal bowel sounds - Neurologic Neurological: oriented to person - Labs CBC & Chem 7: 08/04/18 05:17 08/04/18 09:11 Lab Results: Laboratory Results - last 24 hr 08/03/18 08/03/18 08/03/18 12:01 13:23 13:23 WBC 3.3 L RBC 4.16 Hgb 15.7 H Hct 45.8 H MCV 110 H MCH 38 H MCHC 34 RDW 16.1 H Plt Count 41 L Reagan % (Auto) Director Emergency Department Add Manual Diff Complete Total Counted 100 Seg Neuts % (Manual) 63.0 Band Neutrophils % 0 Lymphocytes % (Manual) 8.0 L Reactive Lymphs % (Man) 0 Monocytes % (Manual) 24.0 H Eosinophils % (Manual) 5.0 H Basophils % (Manual) 0 Metamyelocytes % 0 Myelocytes % 0 Promyelocytes % 0 Blast Cells % 0 Nucleated RBC % 1.0 H Seg Neutrophils # Man 2.1 Band Neutrophils # 0.0 Lymphocytes # (Manual) 0.3 L Abs React Lymphs (Man) 0.0 Monocytes # (Manual) 0.8 Eosinophils # (Manual) 0.2 Basophils # (Manual) 0.0 Metamyelocytes # 0.0 Myelocytes # 0.0 Promyelocytes # 0.0 Blast Cells # 0.0 WBC Morphology Not Reportable Hypersegmented Neuts Not Reportable Hyposegmented Neuts Not Reportable Hypogranular Neuts Not Reportable Smudge Cells Not Reportable Toxic Granulation Not Reportable Toxic Vacuolation Not Reportable Dohle Bodies Not Reportable Pelger-Huet Anomaly Not Reportable Sheila Rods Not Reportable Platelet Estimate Consistent w auto Clumped Platelets Not Reportable Plt Clumps, EDTA Not Reportable Large Platelets Not Reportable Giant Platelets Not Reportable Platelet Satelliting Not Reportable Plt Morphology Comment Not Reportable RBC Morphology Not Reportable Dimorphic RBCs Not Reportable Polychromasia Not Reportable Hypochromasia Not Reportable Poikilocytosis Not Reportable Anisocytosis Not Reportable Microcytosis Not Reportable Macrocytosis 1+ Spherocytes Not Reportable Pappenheimer Bodies Not Reportable Sickle Cells Not Reportable Target Cells Not Reportable Tear Drop Cells Not Reportable Ovalocytes Not Reportable Helmet Cells Not Reportable [place] Bodies Not Reportable [place] Rings Not Reportable [place] Cells Not Reportable Bite Cells Not Reportable Crenated Cell Not Reportable Elliptocytes Not Reportable Acanthocytes (Spur) Not Reportable Rouleaux Not Reportable Hemoglobin C Crystals Not Reportable Schistocytes Not Reportable Malaria parasites Not Reportable [place] Bodies Not Reportable Hem Pathologist Commnt No Sodium 144 D Potassium 4.5 D Chloride 112.3 H Carbon Dioxide 21 L Anion Gap 15 BUN 22 H Creatinine 0.5 L Estimated GFR > 60 BUN/Creatinine Ratio 44 Glucose 160 H POC Glucose 108 H Calcium 8.5 Phosphorus 2.10 L Magnesium 1.60 L Total Bilirubin Direct Bilirubin Indirect Bilirubin AST ALT Alkaline Phosphatase Ammonia Total Protein Albumin Albumin/Globulin Ratio 03/19/19 03/19/19 03/19/19 13:23 13:23 16:22 WBC RBC Hgb Hct MCV MCH MCHC RDW Plt Count Reagan % (Auto) Add Manual Diff Total Counted Seg Neuts % (Manual) Band Neutrophils % Lymphocytes % (Manual) Reactive Lymphs % (Man) Monocytes % (Manual) Eosinophils % (Manual) Basophils % (Manual) Metamyelocytes % Myelocytes % Promyelocytes % Blast Cells % Nucleated RBC % Seg Neutrophils # Man Band Neutrophils # Lymphocytes # (Manual) Abs React Lymphs (Man) Monocytes # (Manual) Eosinophils # (Manual) Basophils # (Manual) Metamyelocytes # Myelocytes # Promyelocytes # Blast Cells # WBC Morphology Hypersegmented Neuts Hyposegmented Neuts Hypogranular Neuts Smudge Cells Toxic Granulation Toxic Vacuolation Dohle Bodies Pelger-Huet Anomaly Sheila Rods Platelet Estimate Clumped Platelets Plt Clumps, EDTA Large Platelets Giant Platelets Platelet Satelliting Plt Morphology Comment RBC Morphology Dimorphic RBCs Polychromasia Hypochromasia Poikilocytosis Anisocytosis Microcytosis Macrocytosis Spherocytes Pappenheimer Bodies Sickle Cells Target Cells Tear Drop Cells Ovalocytes Helmet Cells [place] Bodies [place] Rings Blessing Cells Bite Cells Crenated Cell Elliptocytes Acanthocytes (Spur) Rouleaux Hemoglobin C Crystals Schistocytes Malaria parasites [place] Bodies Hem Pathologist Commnt Sodium Potassium Chloride Carbon Dioxide Anion Gap BUN Creatinine Estimated GFR BUN/Creatinine Ratio Glucose POC Glucose 87 Calcium Phosphorus Magnesium Total Bilirubin 2.50 H Direct Bilirubin 0.8 H Indirect Bilirubin 1.7 AST 109 H ALT 46 Alkaline Phosphatase 71 Ammonia 121.0 H Total Protein 6.4 Albumin 2.5 L Albumin/Globulin Ratio 0.6 08/04/18 08/04/18 08/04/18 00:11 05:17 08:28 WBC 3.5 L RBC 4.19 Hgb 16.0 H Hct 46.1 H MCV 110 H MCH 38 H MCHC 35 H RDW 15.5 H Plt Count 99 L D Reagan % (Auto) Director Emergency Department Add Manual Diff Complete Total Counted 100 Seg Neuts % (Manual) 59.0 Band Neutrophils % 0 Lymphocytes % (Manual) 24.0 Reactive Lymphs % (Man) 0 Monocytes % (Manual) 15.0 H Eosinophils % (Manual) 2.0 Basophils % (Manual) 0 Metamyelocytes % 0 Myelocytes % 0 Promyelocytes % 0 Blast Cells % 0 Nucleated RBC % 1.0 H Seg Neutrophils # Man 2.1 Band Neutrophils # 0.0 Lymphocytes # (Manual) 0.8 L Abs React Lymphs (Man) 0.0 Monocytes # (Manual) 0.5 Eosinophils # (Manual) 0.1 Basophils # (Manual) 0.0 Metamyelocytes # 0.0 Myelocytes # 0.0 Promyelocytes # 0.0 Blast Cells # 0.0 WBC Morphology Not Reportable Hypersegmented Neuts Not Reportable Hyposegmented Neuts Not Reportable Hypogranular Neuts Not Reportable Smudge Cells Not Reportable Toxic Granulation Not Reportable Toxic Vacuolation Not Reportable Dohle Bodies Not Reportable Pelger-Huet Anomaly Not Reportable Sheila Rods Not Reportable Platelet Estimate Consistent w auto Clumped Platelets Not Reportable Plt Clumps, EDTA Not Reportable Large Platelets Not Reportable Giant Platelets Not Reportable Platelet Satelliting Not Reportable Plt Morphology Comment Not Reportable RBC Morphology Not Reportable Dimorphic RBCs Not Reportable Polychromasia Not Reportable Hypochromasia Not Reportable Poikilocytosis Not Reportable Anisocytosis 1+ Microcytosis Not Reportable Macrocytosis Not Reportable Spherocytes Not Reportable Pappenheimer Bodies Not Reportable Sickle Cells Not Reportable Target Cells Not Reportable Tear Drop Cells Not Reportable Ovalocytes Not Reportable Helmet Cells Not Reportable [place] Bodies Not Reportable [place] Rings Not Reportable [place] Cells Not Reportable Bite Cells Not Reportable Crenated Cell Not Reportable Elliptocytes Not Reportable Acanthocytes (Spur) Not Reportable Rouleaux Not Reportable Hemoglobin C Crystals Not Reportable Schistocytes Not Reportable Malaria parasites Not Reportable [place] Bodies Not Reportable Hem Pathologist Commnt No Sodium Potassium Chloride Carbon Dioxide Anion Gap BUN Creatinine Estimated GFR BUN/Creatinine Ratio Glucose POC Glucose 107 H 120 H Calcium Phosphorus Magnesium Total Bilirubin Direct Bilirubin Indirect Bilirubin AST ALT Alkaline Phosphatase Ammonia Total Protein Albumin Albumin/Globulin Ratio 08/04/18 09:11 WBC RBC Hgb Hct MCV MCH MCHC RDW Plt Count Reagan % (Auto) Add Manual Diff Total Counted Seg Neuts % (Manual) Band Neutrophils % Lymphocytes % (Manual) Reactive Lymphs % (Man) Monocytes % (Manual) Eosinophils % (Manual) Basophils % (Manual) Metamyelocytes % Myelocytes % Promyelocytes % Blast Cells % Nucleated RBC % Seg Neutrophils # Man Band Neutrophils # Lymphocytes # (Manual) Abs React Lymphs (Man) Monocytes # (Manual) Eosinophils # (Manual) Basophils # (Manual) Metamyelocytes # Myelocytes # Promyelocytes # Blast Cells # WBC Morphology Hypersegmented Neuts Hyposegmented Neuts Hypogranular Neuts Smudge Cells Toxic Granulation Toxic Vacuolation Dohle Bodies Pelger-Huet Anomaly Sheila Rods Platelet Estimate Clumped Platelets Plt Clumps, EDTA Large Platelets Giant Platelets Platelet Satelliting Plt Morphology Comment RBC Morphology Dimorphic RBCs Polychromasia Hypochromasia Poikilocytosis Anisocytosis Microcytosis Macrocytosis Spherocytes Pappenheimer Bodies Sickle Cells Target Cells Tear Drop Cells Ovalocytes Helmet Cells [place] Bodies [place] Rings [place] Cells Bite Cells Crenated Cell Elliptocytes Acanthocytes (Spur) Rouleaux Hemoglobin C Crystals Schistocytes Malaria parasites [place] Bodies Hem Pathologist Commnt Sodium 144 Potassium 3.6 Chloride 115.7 H Carbon Dioxide 19 L Anion Gap 13 BUN 22 H Creatinine 0.7 Estimated GFR > 60 BUN/Creatinine Ratio 31 Glucose 165 H POC Glucose Calcium 8.8 Phosphorus Magnesium Total Bilirubin 2.70 H Direct Bilirubin Indirect Bilirubin AST 110 H ALT 56 Alkaline Phosphatase 83 Ammonia Total Protein 6.8 Albumin 2.5 L Albumin/Globulin Ratio 0.6 Assessment and Plan 1.hepatic encephalopathy -afebrile -WBC 3.5 -H/H 16.0/46.1 -plt 99, INR 1.32 -ammonia 121 -LFTs stable (T.apple 2.70, AST 110, ALT 56, alk phos 83) -etiology-patient has a hx of liver disease 2/2 ETOH and Hep C. Encephalopathy is likely multifactorial but liver disease likely contributes. -clinically, patient's mental status is slowly improving. Denies abd pain or N/V. No active signs of bleeding. Tolerating diet. -abd U/S -start on xifaxan -continue lactulose -continue antibiotics -continue to trend labs and supportive care (repeat INR in am) -alcohol cessation discussed/encouraged with patient-monitor for signs of withdrawal -electrolyte management per primary team -will follow <AMBER LEZAMA - Last Filed: 08/04/18 13:05> Medications and Allergies Active Meds: Active Medications Dextrose (D50w (25gm) Syringe) 50 ml IV PRN PRN PRN Reason: Hypoglycemia Folic Acid (Folvite) 1 mg PO QDAY [facility] Haloperidol Lactate (Haldol) 5 mg IM Q6H PRN PRN Reason: Agitation Last Admin: 08/02/18 14:36 Dose: 5 mg Documented by: Cefepime HCl (Maxipime/Ns 2 Gm/100 Ml) 2 gm in 100 mls @ 200 mls/hr IV Q12HR [facility]; Protocol Last Admin: 08/04/18 09:56 Dose: 200 mls/hr Documented by: Levetiracetam 750 mg/ Sodium (Chloride) 107.5 mls @ 400 mls/hr IV Q12HR [facility] Last Admin: 08/04/18 09:57 Dose: 400 mls/hr Documented by: Dextrose/Sodium Chloride (D5ns0.3) 1,000 mls @ 42 mls/hr IV DIRECT [facility] Last Admin: 08/03/18 22:57 Dose: 42 mls/hr Documented by: Lactulose (Cephulac) 20 gm PO Q6HR [facility] Last Admin: 08/04/18 07:06 Dose: 20 gm Documented by: Ondansetron HCl (Zofran) 4 mg IV Q4H PRN PRN Reason: Nausea And Vomiting Potassium Phos/Sodium Phos (Phos-Nak) 1 each PO Q12HR [facility] Last Admin: 08/04/18 09:57 Dose: 1 each Documented by: Rifaximin (Xifaxan) 550 mg PO BID [facility] Sodium Chloride (Sodium Chloride Flush Syringe 10 Ml) 10 ml IV BID [facility] Last Admin: 08/04/18 09:58 Dose: 10 ml Documented by: Sodium Chloride (Sodium Chloride Flush Syringe 10 Ml) 10 ml IV PRN PRN PRN Reason: LINE FLUSH Thiamine HCl (Vitamin B-1) 100 mg PO QDAY [facility] Exam - Constitutional Vital Signs: Temp Pulse Resp BP Pulse Ox 98.2 F 98 H 25 H 150/85 100 08/04/18 08:00 08/04/18 09:00 08/04/18 09:00 08/04/18 09:00 08/04/18 09:00 - Labs CBC & Chem 7: 08/04/18 05:17 08/04/18 09:11 Lab Results: Laboratory Results - last 24 hr 08/03/18 08/03/18 08/03/18 13:23 13:23 13:23 WBC 3.3 L RBC 4.16 Hgb 15.7 H Hct 45.8 H MCV 110 H MCH 38 H MCHC 34 RDW 16.1 H Plt Count 41 L Reagan % (Auto) Director Emergency Department Add Manual Diff Complete Total Counted 100 Seg Neuts % (Manual) 63.0 Band Neutrophils % 0 Lymphocytes % (Manual) 8.0 L Reactive Lymphs % (Man) 0 Monocytes % (Manual) 24.0 H Eosinophils % (Manual) 5.0 H Basophils % (Manual) 0 Metamyelocytes % 0 Myelocytes % 0 Promyelocytes % 0 Blast Cells % 0 Nucleated RBC % 1.0 H Seg Neutrophils # Man 2.1 Band Neutrophils # 0.0 Lymphocytes # (Manual) 0.3 L Abs React Lymphs (Man) 0.0 Monocytes # (Manual) 0.8 Eosinophils # (Manual) 0.2 Basophils # (Manual) 0.0 Metamyelocytes # 0.0 Myelocytes # 0.0 Promyelocytes # 0.0 Blast Cells # 0.0 WBC Morphology Not Reportable Hypersegmented Neuts Not Reportable Hyposegmented Neuts Not Reportable Hypogranular Neuts Not Reportable Smudge Cells Not Reportable Toxic Granulation Not Reportable Toxic Vacuolation Not Reportable Dohle Bodies Not Reportable Pelger-Huet Anomaly Not Reportable Sheila Rods Not Reportable Platelet Estimate Consistent w auto Clumped Platelets Not Reportable Plt Clumps, EDTA Not Reportable Large Platelets Not Reportable Giant Platelets Not Reportable Platelet Satelliting Not Reportable Plt Morphology Comment Not Reportable RBC Morphology Not Reportable Dimorphic RBCs Not Reportable Polychromasia Not Reportable Hypochromasia Not Reportable Poikilocytosis Not Reportable Anisocytosis Not Reportable Microcytosis Not Reportable Macrocytosis 1+ Spherocytes Not Reportable Pappenheimer Bodies Not Reportable Sickle Cells Not Reportable Target Cells Not Reportable Tear Drop Cells Not Reportable Ovalocytes Not Reportable Helmet Cells Not Reportable [place] Bodies Not Reportable [place] Rings Not Reportable [place] Cells Not Reportable Bite Cells Not Reportable Crenated Cell Not Reportable Elliptocytes Not Reportable Acanthocytes (Spur) Not Reportable Rouleaux Not Reportable Hemoglobin C Crystals Not Reportable Schistocytes Not Reportable Malaria parasites Not Reportable [place] Bodies Not Reportable Hem Pathologist Commnt No Sodium 144 D Potassium 4.5 D Chloride 112.3 H Carbon Dioxide 21 L Anion Gap 15 BUN 22 H Creatinine 0.5 L Estimated GFR > 60 BUN/Creatinine Ratio 44 Glucose 160 H POC Glucose Calcium 8.5 Phosphorus 2.10 L Magnesium 1.60 L Total Bilirubin 2.50 H Direct Bilirubin 0.8 H Indirect Bilirubin 1.7 AST 109 H ALT 46 Alkaline Phosphatase 71 Ammonia Total Protein 6.4 Albumin 2.5 L Albumin/Globulin Ratio 0.6 08/03/18 08/03/18 08/04/18 13:23 16:22 00:11 WBC RBC Hgb Hct MCV MCH MCHC RDW Plt Count Reagan % (Auto) Add Manual Diff Total Counted Seg Neuts % (Manual) Band Neutrophils % Lymphocytes % (Manual) Reactive Lymphs % (Man) Monocytes % (Manual) Eosinophils % (Manual) Basophils % (Manual) Metamyelocytes % Myelocytes % Promyelocytes % Blast Cells % Nucleated RBC % Seg Neutrophils # Man Band Neutrophils # Lymphocytes # (Manual) Abs React Lymphs (Man) Monocytes # (Manual) Eosinophils # (Manual) Basophils # (Manual) Metamyelocytes # Myelocytes # Promyelocytes # Blast Cells # WBC Morphology Hypersegmented Neuts Hyposegmented Neuts Hypogranular Neuts Smudge Cells Toxic Granulation Toxic Vacuolation Dohle Bodies Pelger-Huet Anomaly Sheila Rods Platelet Estimate Clumped Platelets Plt Clumps, EDTA Large Platelets Giant Platelets Platelet Satelliting Plt Morphology Comment RBC Morphology Dimorphic RBCs Polychromasia Hypochromasia Poikilocytosis Anisocytosis Microcytosis Macrocytosis Spherocytes Pappenheimer Bodies Sickle Cells Target Cells Tear Drop Cells Ovalocytes Helmet Cells [place] Bodies [place] Rings Blessing Cells Bite Cells Crenated Cell Elliptocytes Acanthocytes (Spur) Rouleaux Hemoglobin C Crystals Schistocytes Malaria parasites [place] Bodies Hem Pathologist Commnt Sodium Potassium Chloride Carbon Dioxide Anion Gap BUN Creatinine Estimated GFR BUN/Creatinine Ratio Glucose POC Glucose 87 107 H Calcium Phosphorus Magnesium Total Bilirubin Direct Bilirubin Indirect Bilirubin AST ALT Alkaline Phosphatase Ammonia 121.0 H Total Protein Albumin Albumin/Globulin Ratio 08/04/18 08/04/18 08/04/18 05:17 08:28 09:11 WBC 3.5 L RBC 4.19 Hgb 16.0 H Hct 46.1 H MCV 110 H MCH 38 H MCHC 35 H RDW 15.5 H Plt Count 99 L D Reagan % (Auto) Director Emergency Department Add Manual Diff Complete Total Counted 100 Seg Neuts % (Manual) 59.0 Band Neutrophils % 0 Lymphocytes % (Manual) 24.0 Reactive Lymphs % (Man) 0 Monocytes % (Manual) 15.0 H Eosinophils % (Manual) 2.0 Basophils % (Manual) 0 Metamyelocytes % 0 Myelocytes % 0 Promyelocytes % 0 Blast Cells % 0 Nucleated RBC % 1.0 H Seg Neutrophils # Man 2.1 Band Neutrophils # 0.0 Lymphocytes # (Manual) 0.8 L Abs React Lymphs (Man) 0.0 Monocytes # (Manual) 0.5 Eosinophils # (Manual) 0.1 Basophils # (Manual) 0.0 Metamyelocytes # 0.0 Myelocytes # 0.0 Promyelocytes # 0.0 Blast Cells # 0.0 WBC Morphology Not Reportable Hypersegmented Neuts Not Reportable Hyposegmented Neuts Not Reportable Hypogranular Neuts Not Reportable Smudge Cells Not Reportable Toxic Granulation Not Reportable Toxic Vacuolation Not Reportable Dohle Bodies Not Reportable Pelger-Huet Anomaly Not Reportable Sheila Rods Not Reportable Platelet Estimate Consistent w auto Clumped Platelets Not Reportable Plt Clumps, EDTA Not Reportable Large Platelets Not Reportable Giant Platelets Not Reportable Platelet Satelliting Not Reportable Plt Morphology Comment Not Reportable RBC Morphology Not Reportable Dimorphic RBCs Not Reportable Polychromasia Not Reportable Hypochromasia Not Reportable Poikilocytosis Not Reportable Anisocytosis 1+ Microcytosis Not Reportable Macrocytosis Not Reportable Spherocytes Not Reportable Pappenheimer Bodies Not Reportable Sickle Cells Not Reportable Target Cells Not Reportable Tear Drop Cells Not Reportable Ovalocytes Not Reportable Helmet Cells Not Reportable [place] Bodies Not Reportable [place] Rings Not Reportable Blessing Cells Not Reportable Bite Cells Not Reportable Crenated Cell Not Reportable Elliptocytes Not Reportable Acanthocytes (Spur) Not Reportable Rouleaux Not Reportable Hemoglobin C Crystals Not Reportable Schistocytes Not Reportable Malaria parasites Not Reportable [place] Bodies Not Reportable Hem Pathologist Commnt No Sodium 144 Potassium 3.6 Chloride 115.7 H Carbon Dioxide 19 L Anion Gap 13 BUN 22 H Creatinine 0.7 Estimated GFR > 60 BUN/Creatinine Ratio 31 Glucose 165 H POC Glucose 120 H Calcium 8.8 Phosphorus Magnesium Total Bilirubin 2.70 H Direct Bilirubin Indirect Bilirubin AST 110 H ALT 56 Alkaline Phosphatase 83 Ammonia Total Protein 6.8 Albumin 2.5 L Albumin/Globulin Ratio 0.6 Assessment and Plan Pt seen and examined. Oriented to person and to place, but o/w confused. No pain, N/V, GI bleed. Plan as above. Pt has alcoholic hepatitis and underlying cirrhosis.
--- NOTE | 2018-08-04 12:40 | Progress Note ---
Assessment and Plan Acute Hepatic encephalopathy, improving - Continue lactulose, Monitor LFT, ammonia, Sepsis with UTI, bacteremia and lactic acidosis Urinary tract infection Bacteremia with gm negative rods - IV antibiotics, IV fluid, follow final cx - repeat blood cx Diabetes type 2 - Monitor BG with SSI, Seizures disorder - cont keppra Hypernatremia, cont hypotonic fluid hypokalemia, cont to replete Hepatitis C, supportive care - GI consulted, started on xifaxane, monitor LFT for now thrombocytopenia, likely from CLD, cont to monitor Dementia, by history, cont to monitor Alcohol abuse, cont folate, b12, thiamin watch for withdrawal DVT prophylaxis, SCD Brief history: Mrs. Jones is a 67 yo female with hx of alcoholism, diabetes, seizure disorder, hepatic encephalopathy, alcohol related dementia, Hepatitis C, alcoholic liver disease who presents with altered mental status. Roommate reported to EMS that patient has been sitting on the couch in her own feces for the past 3 days without moving. Patient unable to give history due to altered mental status. Medical history obtained from EMR. In 2017, Mrs. Jones had a prolonged ICU course including intubation, tracheostomy, hemodialysis for status epilepticus, gram negative sepisis, hepatic encephalopathy. According to male friend, her last drink of alcohol was 4-5 days ago. She does not take any of her prescribed medications. She recently was discharged from a [place] [facility] 4-5 months ago. Physical exam: General Apperance: The patient lying in bed, breathing comfortable HEENT: Normocephalic, atraumatic. Pupils equally round and reactive to light, unable to do EOM, no sclericterus or JVD or thyromegaly or nodule, no carotid bruit, mucous membranes moist, unable to examine oral cavity Heart: S1-S2, regular is rhythm Lungs: Clear to auscultation bilaterally, breathing comfortable Abdomen: Positive bowel sounds, soft, nondistended, no organomegaly Extremities: No edema cyanosis clubbing Skin: no rash, nodule, warm and dry Neuro: alert but oriented to self only Subjective Date of service: 08/04/18 Interval history: patient seen and examined much alert today but oriented X1, follow commend No family at bedside denies any chest pain, still on restraint Objective - Constitutional Vitals: Vital Signs - 12hr 08/04/18 08/04/18 08/04/18 00:50 01:00 01:10 Temperature Pulse Rate 92 H 97 H 104 H Pulse Rate [ From Monitor] Respiratory 20 17 22 Rate Blood Pressure 165/90 170/83 170/83 O2 Sat by Pulse 98 99 98 Oximetry 08/04/18 08/04/18 08/04/18 02:00 03:00 04:00 Temperature Pulse Rate 104 H 102 H 105 H Pulse Rate [ 94 H From Monitor] Respiratory 23 22 21 Rate Blood Pressure 163/92 150/98 163/92 O2 Sat by Pulse 99 98 98 Oximetry 08/04/18 08/04/18 08/04/18 05:00 06:00 07:00 Temperature Pulse Rate 102 H 100 H 95 H Pulse Rate [ From Monitor] Respiratory 13 24 23 Rate Blood Pressure 215/106 189/105 169/94 O2 Sat by Pulse 96 100 100 Oximetry 08/04/18 08/04/18 08:00 09:00 Temperature 98.2 F Pulse Rate 110 H 98 H Pulse Rate [ 94 H From Monitor] Respiratory 17 25 H Rate Blood Pressure 151/83 150/85 O2 Sat by Pulse 99 100 Oximetry - Labs CBC & Chem 7: 08/05/18 05:05 08/05/18 05:05 Labs: Abnormal lab results 08/03/18 08/03/18 08/03/18 Range/Units 13:23 13:23 13:23 WBC 3.3 L (4.5-11.0) K/mm3 Hgb 15.7 H (10.1-14.3) gm/dl Hct 45.8 H (30.3-42.9) % MCV 110 H (79-97) fl MCH 38 H (28-32) pg MCHC (30-34) % RDW 16.1 H (13.2-15.2) % Plt Count 41 L (140-440) K/mm3 Lymphocytes % (Manual) 8.0 L (13.4-35.0) % Monocytes % (Manual) 24.0 H (0.0-7.3) % Eosinophils % (Manual) 5.0 H (0.0-4.3) % Nucleated RBC % 1.0 H (0.0-0.9) % Lymphocytes # (Manual) 0.3 L (1.2-5.4) K/mm3 Chloride 112.3 H (98-107) mmol/L Carbon Dioxide 21 L (22-30) mmol/L BUN 22 H (7-17) mg/dL Creatinine 0.5 L (0.7-1.2) mg/dL Glucose 160 H (65-100) mg/dL POC Glucose (70-105) Phosphorus 2.10 L (2.5-4.5) mg/dL Magnesium 1.60 L (1.7-2.3) mg/dL Total Bilirubin 2.50 H (0.1-1.2) mg/dL Direct Bilirubin 0.8 H (0-0.2) mg/dL AST 109 H (5-40) units/L Ammonia (25-60) umol/L Albumin 2.5 L (3.9-5) g/dL 08/03/18 08/04/18 08/04/18 Range/Units 13:23 00:11 05:17 WBC 3.5 L (4.5-11.0) K/mm3 Hgb 16.0 H (10.1-14.3) gm/dl Hct 46.1 H (30.3-42.9) % MCV 110 H (79-97) fl MCH 38 H (28-32) pg MCHC 35 H (30-34) % RDW 15.5 H (13.2-15.2) % Plt Count 99 L D (140-440) K/mm3 Lymphocytes % (Manual) (13.4-35.0) % Monocytes % (Manual) 15.0 H (0.0-7.3) % Eosinophils % (Manual) (0.0-4.3) % Nucleated RBC % 1.0 H (0.0-0.9) % Lymphocytes # (Manual) 0.8 L (1.2-5.4) K/mm3 Chloride (98-107) mmol/L Carbon Dioxide (22-30) mmol/L BUN (7-17) mg/dL Creatinine (0.7-1.2) mg/dL Glucose (65-100) mg/dL POC Glucose 107 H (70-105) Phosphorus (2.5-4.5) mg/dL Magnesium (1.7-2.3) mg/dL Total Bilirubin (0.1-1.2) mg/dL Direct Bilirubin (0-0.2) mg/dL AST (5-40) units/L Ammonia 121.0 H (25-60) umol/L Albumin (3.9-5) g/dL 08/04/18 08/04/18 Range/Units 08:28 09:11 WBC (4.5-11.0) K/mm3 Hgb (10.1-14.3) gm/dl Hct (30.3-42.9) % MCV (79-97) fl MCH (28-32) pg MCHC (30-34) % RDW (13.2-15.2) % Plt Count (140-440) K/mm3 Lymphocytes % (Manual) (13.4-35.0) % Monocytes % (Manual) (0.0-7.3) % Eosinophils % (Manual) (0.0-4.3) % Nucleated RBC % (0.0-0.9) % Lymphocytes # (Manual) (1.2-5.4) K/mm3 Chloride 115.7 H (98-107) mmol/L Carbon Dioxide 19 L (22-30) mmol/L BUN 22 H (7-17) mg/dL Creatinine (0.7-1.2) mg/dL Glucose 165 H (65-100) mg/dL POC Glucose 120 H (70-105) Phosphorus (2.5-4.5) mg/dL Magnesium (1.7-2.3) mg/dL Total Bilirubin 2.70 H (0.1-1.2) mg/dL Direct Bilirubin (0-0.2) mg/dL AST 110 H (5-40) units/L Ammonia (25-60) umol/L Albumin 2.5 L (3.9-5) g/dL
[2018-08-04] MEDS: VITAMIN B-1 PO SCH (14:37)
[2018-08-04] MEDS: FOLVITE PO SCH (14:37)
[2018-08-04] MEDS: HALDOL IM PRN (14:37)
[2018-08-04] MEDS: XIFAXAN PO SCH ×2 (14:38→22:37)
[2018-08-04] MEDS ORDERED: MAGNESIUM SULFATE IV ONE (16:06)
[2018-08-04] MEDS ORDERED: MAGNESIUM SULFATE 2GM/50ML 2 GM/50 ML BAG IV ONE (18:00)
[2018-08-05] MEDS: CEPHULAC PO SCH ×5 (00:07→23:49)
[2018-08-05] MEDS: D5NS0.3 1,000 ML IV SCH (00:08)
[2018-08-05] MEDS: HALDOL IM PRN (00:18)
[2018-08-05 05:37] LABS: Hemoglobin 13.6 gm/dl (10.1-14.3); Mean Corpuscular HGB Conc 34 % (30-34); Mean Corpuscular Volume 110 fl (79-97); Red Blood Count 3.64 M/mm3 (3.65-5.03); Red Cell Distribution Width 15.5 % (13.2-15.2)
[2018-08-05 05:41] LABS: Platelet Count 69 K/mm3 (140-440)
[2018-08-05 06:06] LABS: INR 1.42 (0.87-1.13)
[2018-08-05 06:07] LABS: Alanine Aminotransferase 49 units/L (7-56); Albumin 2.3 g/dL (3.9-5); BUN/Creatinine Ratio 29; Blood Urea Nitrogen 20 mg/dL (7-17); Calcium 8.5 mg/dL (8.4-10.2); Hemolysis Index 5
[2018-08-05 07:13] LABS: Basophils % (Manual) 0 % (0.0-1.8); Eosinophils % (Manual) 0 % (0.0-4.3); Total Cells Counted 100
[2018-08-05 07:14] LABS: Platelet Estimate Consistent w Auto; Target Cells Rare
[2018-08-05] MEDS: VITAMIN B-1 PO SCH (10:04)
[2018-08-05] MEDS: KEPPRA 750 MG in NACL 0.9% 100 ML IV SCH ×2 (10:32→23:01)
[2018-08-05] MEDS: MAXIPIME/NS 2 GM/100 ML 2 GM/100 ML BAG IV SCH ×2 (10:32→23:32)
--- NOTE | 2018-08-05 10:32 | Gastroenterology Progress Note ---
<CALEB ALBERTO - Last Filed: 08/05/18 10:37> Assessment and Plan 1.hepatic encephalopathy -afebrile -WBC 3.9 -H/H WNL (13.6/41.0) -plt 69, INR 1.42-trending up -ammonia 76-trending down -LFTs stable (T.apple 2.10, AST 87, ALT 49, alk phos 83) -etiology-alcoholic hepatitis and underlying cirrhosis (2/2 ETOH and Hep C). Encephalopathy is likely multifactorial but liver disease likely contributes. -clinically, patient's mental status is slowly improving. Denies abd pain or N/V. No active signs of bleeding. Tolerating diet. -abd U/S results pending -will given vit K challenge for increasing INR to check synthetic function -continue xifaxan, lactulose (to goal of BM x 2-3/day), and empiric antibiotics -continue to trend labs and supportive care (repeat INR in am) -alcohol cessation discussed/encouraged with patient-monitor for signs of withdrawal -electrolyte management per primary team -will follow Subjective Date of service: 08/05/18 Principal diagnosis: hepatic encephalopathy Interval history: No acute distress. Denies abd pain, N/V, or signs of bleeding. Tolerating diet. Objective - Constitutional Vitals: Temp Pulse Resp BP Pulse Ox 98.2 F 100 H 20 149/80 98 08/05/18 07:08 08/04/18 20:00 08/05/18 07:08 08/05/18 07:08 08/05/18 08:00 General appearance: no acute distress - Respiratory Respiratory: bilateral: CTA - Cardiovascular Rhythm: regular - Gastrointestinal General gastrointestinal: Present: soft, non-tender, non-distended, normal bowel sounds - Labs CBC & Chem 7: 08/05/18 05:05 08/05/18 05:05 Labs: Laboratory Results - last 24 hr 08/04/18 08/04/18 08/04/18 13:46 17:16 22:07 WBC RBC Hgb Hct MCV MCH MCHC RDW Plt Count Dane % (Auto) Add Manual Diff Total Counted Seg Neuts % (Manual) Band Neutrophils % Lymphocytes % (Manual) Reactive Lymphs % (Man) Monocytes % (Manual) Eosinophils % (Manual) Basophils % (Manual) Metamyelocytes % Myelocytes % Promyelocytes % Blast Cells % Nucleated RBC % Seg Neutrophils # Man Band Neutrophils # Lymphocytes # (Manual) Abs React Lymphs (Man) Monocytes # (Manual) Eosinophils # (Manual) Basophils # (Manual) Metamyelocytes # Myelocytes # Promyelocytes # Blast Cells # WBC Morphology Hypersegmented Neuts Hyposegmented Neuts Hypogranular Neuts Smudge Cells Toxic Granulation Toxic Vacuolation Dohle Bodies Pelger-Huet Anomaly Sheila Rods Platelet Estimate Clumped Platelets Plt Clumps, EDTA Large Platelets Giant Platelets Platelet Satelliting Plt Morphology Comment RBC Morphology Dimorphic RBCs Polychromasia Hypochromasia Poikilocytosis Anisocytosis Microcytosis Macrocytosis Spherocytes Pappenheimer Bodies Sickle Cells Target Cells Tear Drop Cells Ovalocytes Helmet Cells [place] Bodies [place] Rings [place] Cells Bite Cells Crenated Cell Elliptocytes Acanthocytes (Spur) Rouleaux Hemoglobin C Crystals Schistocytes Malaria parasites [place] Bodies Hem Pathologist Commnt PT INR Sodium Potassium Chloride Carbon Dioxide Anion Gap BUN Creatinine Estimated GFR BUN/Creatinine Ratio Glucose POC Glucose 116 H 110 H Calcium Phosphorus 2.20 L Magnesium 1.10 L Total Bilirubin AST ALT Alkaline Phosphatase Ammonia Total Protein Albumin Albumin/Globulin Ratio 08/05/18 08/05/18 08/05/18 05:05 05:05 05:05 WBC RBC Hgb Hct MCV MCH MCHC RDW Plt Count [place]ane % (Auto) Add Manual Diff Total Counted Seg Neuts % (Manual) Band Neutrophils % Lymphocytes % (Manual) Reactive Lymphs % (Man) Monocytes % (Manual) Eosinophils % (Manual) Basophils % (Manual) Metamyelocytes % Myelocytes % Promyelocytes % Blast Cells % Nucleated RBC % Seg Neutrophils # Man Band Neutrophils # Lymphocytes # (Manual) Abs React Lymphs (Man) Monocytes # (Manual) Eosinophils # (Manual) Basophils # (Manual) Metamyelocytes # Myelocytes # Promyelocytes # Blast Cells # WBC Morphology Hypersegmented Neuts Hyposegmented Neuts Hypogranular Neuts Smudge Cells Toxic Granulation Toxic Vacuolation Dohle Bodies Pelger-Huet Anomaly Sheila Rods Platelet Estimate Clumped Platelets Plt Clumps, EDTA Large Platelets Giant Platelets Platelet Satelliting Plt Morphology Comment RBC Morphology Dimorphic RBCs Polychromasia Hypochromasia Poikilocytosis Anisocytosis Microcytosis Macrocytosis Spherocytes Pappenheimer Bodies Sickle Cells Target Cells Tear Drop Cells Ovalocytes Helmet Cells [place] Bodies [place] Rings [place] Cells Bite Cells Crenated Cell Elliptocytes Acanthocytes (Spur) Rouleaux Hemoglobin C Crystals Schistocytes Malaria parasites [place] Bodies Hem Pathologist Commnt PT 18.3 H INR 1.42 H Sodium 148 H Potassium 3.4 L Chloride 115.6 H Carbon Dioxide 23 Anion Gap 13 BUN 20 H Creatinine 0.7 Estimated GFR > 60 BUN/Creatinine Ratio 29 Glucose 115 H POC Glucose Calcium 8.5 Phosphorus Magnesium Total Bilirubin 2.10 H AST 87 H ALT 49 Alkaline Phosphatase 83 Ammonia 76.0 H Total Protein 6.0 L Albumin 2.3 L Albumin/Globulin Ratio 0.6 08/05/18 05:05 WBC 2.9 L RBC 3.64 L Hgb 13.6 Hct 40.0 D MCV 110 H MCH 37 H MCHC 34 RDW 15.5 H Plt Count 69 L Dane % (Auto) Final Finisher Add Manual Diff Complete Total Counted 100 Seg Neuts % (Manual) 69.0 Band Neutrophils % 0 Lymphocytes % (Manual) 8.0 L Reactive Lymphs % (Man) 0 Monocytes % (Manual) 21.0 H Eosinophils % (Manual) 0 Basophils % (Manual) 0 Metamyelocytes % 2.0 Myelocytes % 0 Promyelocytes % 0 Blast Cells % 0 Nucleated RBC % Not Reportable Seg Neutrophils # Man 2.0 Band Neutrophils # 0.0 Lymphocytes # (Manual) 0.2 L Abs React Lymphs (Man) 0.0 Monocytes # (Manual) 0.6 Eosinophils # (Manual) 0.0 Basophils # (Manual) 0.0 Metamyelocytes # 0.1 Myelocytes # 0.0 Promyelocytes # 0.0 Blast Cells # 0.0 WBC Morphology Not Reportable Hypersegmented Neuts Not Reportable Hyposegmented Neuts Not Reportable Hypogranular Neuts Not Reportable Smudge Cells Not Reportable Toxic Granulation Not Reportable Toxic Vacuolation Not Reportable Dohle Bodies Not Reportable Pelger-Huet Anomaly Not Reportable Sheila Rods Not Reportable Platelet Estimate Consistent w auto Clumped Platelets Not Reportable Plt Clumps, EDTA Not Reportable Large Platelets Not Reportable Giant Platelets Not Reportable Platelet Satelliting Not Reportable Plt Morphology Comment Not Reportable RBC Morphology Not Reportable Dimorphic RBCs Not Reportable Polychromasia Not Reportable Hypochromasia Not Reportable Poikilocytosis Not Reportable Anisocytosis Not Reportable Microcytosis Not Reportable Macrocytosis Not Reportable Spherocytes Not Reportable Pappenheimer Bodies Not Reportable Sickle Cells Not Reportable Target Cells Rare Tear Drop Cells Not Reportable Ovalocytes Not Reportable Helmet Cells Not Reportable [place] Bodies Not Reportable [place] Rings Not Reportable [place] Cells Not Reportable Bite Cells Not Reportable Crenated Cell Not Reportable Elliptocytes Not Reportable Acanthocytes (Spur) Not Reportable Rouleaux Not Reportable Hemoglobin C Crystals Not Reportable Schistocytes Not Reportable Malaria parasites Not Reportable [place] Bodies Not Reportable Hem Pathologist Commnt No PT INR Sodium Potassium Chloride Carbon Dioxide Anion Gap BUN Creatinine Estimated GFR BUN/Creatinine Ratio Glucose POC Glucose Calcium Phosphorus Magnesium Total Bilirubin AST ALT Alkaline Phosphatase Ammonia Total Protein Albumin Albumin/Globulin Ratio <AMBER LEZAMA R - Last Filed: 08/05/18 14:51> Assessment and Plan Pt seen and examined. Plan as noted. Objective - Constitutional Vitals: Temp Pulse Resp BP Pulse Ox 98.2 F 87 20 116/59 95 08/05/18 07:08 08/05/18 13:21 08/05/18 13:21 08/05/18 13:21 08/05/18 13:21 - Labs CBC & Chem 7: 08/05/18 05:05 08/05/18 05:05 Labs: Laboratory Results - last 24 hr 08/04/18 08/04/18 08/05/18 17:16 22:07 05:05 WBC RBC Hgb Hct MCV MCH MCHC RDW Plt Count [place]ane % (Auto) Add Manual Diff Total Counted Seg Neuts % (Manual) Band Neutrophils % Lymphocytes % (Manual) Reactive Lymphs % (Man) Monocytes % (Manual) Eosinophils % (Manual) Basophils % (Manual) Metamyelocytes % Myelocytes % Promyelocytes % Blast Cells % Nucleated RBC % Seg Neutrophils # Man Band Neutrophils # Lymphocytes # (Manual) Abs React Lymphs (Man) Monocytes # (Manual) Eosinophils # (Manual) Basophils # (Manual) Metamyelocytes # Myelocytes # Promyelocytes # Blast Cells # WBC Morphology Hypersegmented Neuts Hyposegmented Neuts Hypogranular Neuts Smudge Cells Toxic Granulation Toxic Vacuolation Dohle Bodies Pelger-Huet Anomaly Sheila Rods Platelet Estimate Clumped Platelets Plt Clumps, EDTA Large Platelets Giant Platelets Platelet Satelliting Plt Morphology Comment RBC Morphology Dimorphic RBCs Polychromasia Hypochromasia Poikilocytosis Anisocytosis Microcytosis Macrocytosis Spherocytes Pappenheimer Bodies Sickle Cells Target Cells Tear Drop Cells Ovalocytes Helmet Cells [place] Bodies [place] Rings [place] Cells Bite Cells Crenated Cell Elliptocytes Acanthocytes (Spur) Rouleaux Hemoglobin C Crystals Schistocytes Malaria parasites [place] Bodies Hem Pathologist Commnt PT 18.3 H INR 1.42 H Sodium Potassium Chloride Carbon Dioxide Anion Gap BUN Creatinine Estimated GFR BUN/Creatinine Ratio Glucose POC Glucose 116 H 110 H Calcium Magnesium Total Bilirubin AST ALT Alkaline Phosphatase Ammonia Total Protein Albumin Albumin/Globulin Ratio 08/05/18 08/05/18 08/05/18 05:05 05:05 05:05 WBC 2.9 L RBC 3.64 L Hgb 13.6 Hct 40.0 D MCV 110 H MCH 37 H MCHC 34 RDW 15.5 H Plt Count 69 L Dane % (Auto) Final Finisher Add Manual Diff Complete Total Counted 100 Seg Neuts % (Manual) 69.0 Band Neutrophils % 0 Lymphocytes % (Manual) 8.0 L Reactive Lymphs % (Man) 0 Monocytes % (Manual) 21.0 H Eosinophils % (Manual) 0 Basophils % (Manual) 0 Metamyelocytes % 2.0 Myelocytes % 0 Promyelocytes % 0 Blast Cells % 0 Nucleated RBC % Not Reportable Seg Neutrophils # Man 2.0 Band Neutrophils # 0.0 Lymphocytes # (Manual) 0.2 L Abs React Lymphs (Man) 0.0 Monocytes # (Manual) 0.6 Eosinophils # (Manual) 0.0 Basophils # (Manual) 0.0 Metamyelocytes # 0.1 Myelocytes # 0.0 Promyelocytes # 0.0 Blast Cells # 0.0 WBC Morphology Not Reportable Hypersegmented Neuts Not Reportable Hyposegmented Neuts Not Reportable Hypogranular Neuts Not Reportable Smudge Cells Not Reportable Toxic Granulation Not Reportable Toxic Vacuolation Not Reportable Dohle Bodies Not Reportable Pelger-Huet Anomaly Not Reportable Sheila Rods Not Reportable Platelet Estimate Consistent w auto Clumped Platelets Not Reportable Plt Clumps, EDTA Not Reportable Large Platelets Not Reportable Giant Platelets Not Reportable Platelet Satelliting Not Reportable Plt Morphology Comment Not Reportable RBC Morphology Not Reportable Dimorphic RBCs Not Reportable Polychromasia Not Reportable Hypochromasia Not Reportable Poikilocytosis Not Reportable Anisocytosis Not Reportable Microcytosis Not Reportable Macrocytosis Not Reportable Spherocytes Not Reportable Pappenheimer Bodies Not Reportable Sickle Cells Not Reportable Target Cells Rare Tear Drop Cells Not Reportable Ovalocytes Not Reportable Helmet Cells Not Reportable [place] Bodies Not Reportable [place] Rings Not Reportable [place] Cells Not Reportable Bite Cells Not Reportable Crenated Cell Not Reportable Elliptocytes Not Reportable Acanthocytes (Spur) Not Reportable Rouleaux Not Reportable Hemoglobin C Crystals Not Reportable Schistocytes Not Reportable Malaria parasites Not Reportable [place] Bodies Not Reportable Hem Pathologist Commnt No PT INR Sodium 148 H Potassium 3.4 L Chloride 115.6 H Carbon Dioxide 23 Anion Gap 13 BUN 20 H Creatinine 0.7 Estimated GFR > 60 BUN/Creatinine Ratio 29 Glucose 115 H POC Glucose Calcium 8.5 Magnesium Total Bilirubin 2.10 H AST 87 H ALT 49 Alkaline Phosphatase 83 Ammonia 76.0 H Total Protein 6.0 L Albumin 2.3 L Albumin/Globulin Ratio 0.6 08/05/18 08/05/18 05:05 11:51 WBC RBC Hgb Hct MCV MCH MCHC RDW Plt Count [place]ane % (Auto) Add Manual Diff Total Counted Seg Neuts % (Manual) Band Neutrophils % Lymphocytes % (Manual) Reactive Lymphs % (Man) Monocytes % (Manual) Eosinophils % (Manual) Basophils % (Manual) Metamyelocytes % Myelocytes % Promyelocytes % Blast Cells % Nucleated RBC % Seg Neutrophils # Man Band Neutrophils # Lymphocytes # (Manual) Abs React Lymphs (Man) Monocytes # (Manual) Eosinophils # (Manual) Basophils # (Manual) Metamyelocytes # Myelocytes # Promyelocytes # Blast Cells # WBC Morphology Hypersegmented Neuts Hyposegmented Neuts Hypogranular Neuts Smudge Cells Toxic Granulation Toxic Vacuolation Dohle Bodies Pelger-Huet Anomaly Sheila Rods Platelet Estimate Clumped Platelets Plt Clumps, EDTA Large Platelets Giant Platelets Platelet Satelliting Plt Morphology Comment RBC Morphology Dimorphic RBCs Polychromasia Hypochromasia Poikilocytosis Anisocytosis Microcytosis Macrocytosis Spherocytes Pappenheimer Bodies Sickle Cells Target Cells Tear Drop Cells Ovalocytes Helmet Cells [place] Bodies [place] Rings [place] Cells Bite Cells Crenated Cell Elliptocytes Acanthocytes (Spur) Rouleaux Hemoglobin C Crystals Schistocytes Malaria parasites [place] Bodies Hem Pathologist Commnt PT INR Sodium Potassium Chloride Carbon Dioxide Anion Gap BUN Creatinine Estimated GFR BUN/Creatinine Ratio Glucose POC Glucose 118 H Calcium Magnesium 1.80 Total Bilirubin AST ALT Alkaline Phosphatase Ammonia Total Protein Albumin Albumin/Globulin Ratio
[2018-08-05] MEDS: FOLVITE PO SCH (10:33)
[2018-08-05] MEDS: PHOS-NAK PO SCH ×2 (10:33→21:18)
[2018-08-05] MEDS: XIFAXAN PO SCH ×2 (10:34→21:18)
[2018-08-05] MEDS ORDERED: VITAMIN K (ADULT ONLY) SUB-Q ONE (11:37)
[2018-08-05] MEDS ORDERED: LIBRIUM PO PRN (11:57)
--- NOTE | 2018-08-05 11:58 | Progress Note ---
Assessment and Plan Acute Hepatic encephalopathy, improving - Continue lactulose, Monitor LFT, ammonia level 76 today, Sepsis with UTI, bacteremia and lactic acidosis Urinary tract infection Bacteremia with gm negative rods - IV antibiotics, IV fluid, follow final cx - repeat blood cx negative Elevated INR, ordered vit K Diabetes type 2 - Monitor BG with SSI, Seizures disorder - cont keppra Hypernatremia, cont hypotonic fluid hypokalemia, cont to replete Hepatitis C, supportive care - GI consulted, started on xifaxane, monitor LFT for now thrombocytopenia, likely from CLD, cont to monitor Dementia, by history, cont to monitor Alcohol abuse, cont folate, thiamin, watch for withdrawal DVT prophylaxis, SCD Brief history: Mrs. Jones is a 67 yo female with hx of alcoholism, diabetes, seizure disorder, hepatic encephalopathy, alcohol related dementia, Hepatitis C, alcoholic liver disease who presents with altered mental status. Roommate reported to EMS that patient has been sitting on the couch in her own feces for the past 3 days without moving. Patient unable to give history due to altered mental status. Medical history obtained from EMR. In 2017, Mrs. Jones had a prolonged ICU course including intubation, tracheostomy, hemodialysis for status epilepticus, gram negative sepisis, hepatic encephalopathy. According to male friend, her last drink of alcohol was 4-5 days ago. She does not take any of her prescribed medications. [facility] 4[facility]. Physical exam: General Apperance: The patient lying in bed, breathing comfortable HEENT: Normocephalic, atraumatic. Pupils equally round and reactive to light, unable to do EOM, no sclericterus or JVD or thyromegaly or nodule, no carotid bruit, mucous membranes moist, unable to examine oral cavity Heart: S1-S2, regular is rhythm Lungs: Clear to auscultation bilaterally, breathing comfortable Abdomen: Positive bowel sounds, soft, nondistended, no organomegaly Extremities: No edema cyanosis clubbing Skin: no rash, nodule, warm and dry Neuro: alert but oriented to self only Subjective Date of service: 08/05/18 Principal diagnosis: hepatic encephalopathy Interval history: patient seen and examined much alert today but oriented X1, follows commend roommate at bedside denies any chest pain, off restraint Objective - Constitutional Vitals: Vital Signs - 12hr 08/05/18 08/05/18 08/05/18 00:00 07:08 08:00 Temperature 98.2 F Respiratory 20 20 Rate Blood Pressure 149/80 O2 Sat by Pulse 99 98 Oximetry - Labs CBC & Chem 7: 08/06/18 04:31 08/06/18 04:31 Labs: Abnormal lab results 08/04/18 08/04/18 08/04/18 Range/Units 13:46 17:16 22:07 WBC (4.5-11.0) K/mm3 RBC (3.65-5.03) M/mm3 MCV (79-97) fl MCH (28-32) pg RDW (13.2-15.2) % Plt Count (140-440) K/mm3 Lymphocytes % (Manual) (13.4-35.0) % Monocytes % (Manual) (0.0-7.3) % Lymphocytes # (Manual) (1.2-5.4) K/mm3 PT (12.2-14.9) Sec. INR (0.87-1.13) Sodium (137-145) mmol/L Potassium (3.6-5.0) mmol/L Chloride (98-107) mmol/L BUN (7-17) mg/dL Glucose (65-100) mg/dL POC Glucose 116 H 110 H (70-105) Phosphorus 2.20 L (2.5-4.5) mg/dL Magnesium 1.10 L (1.7-2.3) mg/dL Total Bilirubin (0.1-1.2) mg/dL AST (5-40) units/L Ammonia (25-60) umol/L Total Protein (6.3-8.2) g/dL Albumin (3.9-5) g/dL 08/05/18 08/05/18 08/05/18 Range/Units 05:05 05:05 05:05 WBC (4.5-11.0) K/mm3 RBC (3.65-5.03) M/mm3 MCV (79-97) fl MCH (28-32) pg RDW (13.2-15.2) % Plt Count (140-440) K/mm3 Lymphocytes % (Manual) (13.4-35.0) % Monocytes % (Manual) (0.0-7.3) % Lymphocytes # (Manual) (1.2-5.4) K/mm3 PT 18.3 H (12.2-14.9) Sec. INR 1.42 H (0.87-1.13) Sodium 148 H (137-145) mmol/L Potassium 3.4 L (3.6-5.0) mmol/L Chloride 115.6 H (98-107) mmol/L BUN 20 H (7-17) mg/dL Glucose 115 H (65-100) mg/dL POC Glucose (70-105) Phosphorus (2.5-4.5) mg/dL Magnesium (1.7-2.3) mg/dL Total Bilirubin 2.10 H (0.1-1.2) mg/dL AST 87 H (5-40) units/L Ammonia 76.0 H (25-60) umol/L Total Protein 6.0 L (6.3-8.2) g/dL Albumin 2.3 L (3.9-5) g/dL 08/05/18 08/05/18 Range/Units 05:05 11:51 WBC 2.9 L (4.5-11.0) K/mm3 RBC 3.64 L (3.65-5.03) M/mm3 MCV 110 H (79-97) fl MCH 37 H (28-32) pg RDW 15.5 H (13.2-15.2) % Plt Count 69 L (140-440) K/mm3 Lymphocytes % (Manual) 8.0 L (13.4-35.0) % Monocytes % (Manual) 21.0 H (0.0-7.3) % Lymphocytes # (Manual) 0.2 L (1.2-5.4) K/mm3 PT (12.2-14.9) Sec. INR (0.87-1.13) Sodium (137-145) mmol/L Potassium (3.6-5.0) mmol/L Chloride (98-107) mmol/L BUN (7-17) mg/dL Glucose (65-100) mg/dL POC Glucose 118 H (70-105) Phosphorus (2.5-4.5) mg/dL Magnesium (1.7-2.3) mg/dL Total Bilirubin (0.1-1.2) mg/dL AST (5-40) units/L Ammonia (25-60) umol/L Total Protein (6.3-8.2) g/dL Albumin (3.9-5) g/dL
[2018-08-05] MEDS: KCL 20 MEQ in D5NS 0.2% 1,000 ML IV SCH ×2 (12:22→23:49)
--- NOTE | 2018-08-05 15:12 | Ultrasound Report ---
PROCEDURE: US ABDOMEN COMPLETE TECHNIQUE: Transverse longitudinal sonograms obtained with hugo scale sonography HISTORY: elevated LFTs COMPARISONS: Ultrasound January 10, 2017 FINDINGS: Liver demonstrates mild increase in echogenicity compatible with fatty infiltration. Findings similar to prior study. Gallbladder demonstrates multiple calculi. Normal wall thickness. No biliary dilatation. Common bile duct diameter is 0.3 cm. Pancreas largely obscured by bowel gas Right kidney measures 10.6 x 5.4 x 5.4 cm. Left kidney measures 11.4 x 5.7 x 6.0 cm. Kidneys demonstrate normal cortical thickness and echogenicity. No hydronephrosis. No free fluid IMPRESSION: Increased hepatic echogenicity compatible with fatty infiltration Cholelithiasis. No sonographic evidence of acute cholecystitis No biliary dilatation No hydronephrosis No free fluid. This document is electronically signed by Kevin Paul MD., August 05 2018 03:10:58 PM ET
[2018-08-05] MEDS: SODIUM CHLORIDE FLUSH SYRINGE 10 ML IV SCH ×2 (21:18→21:39)
[2018-08-06] MEDS: CEPHULAC PO SCH ×3 (05:47→19:14)
[2018-08-06 05:48] LABS: Hematocrit 41.5 % (30.3-42.9); Mean Corpuscular HGB Conc 34 % (30-34); Red Blood Count 3.75 M/mm3 (3.65-5.03); Red Cell Distribution Width 15.6 % (13.2-15.2)
[2018-08-06 06:14] LABS: Alanine Aminotransferase 53 units/L (7-56); Albumin 2.4 g/dL (3.9-5); BUN/Creatinine Ratio 24; Blood Urea Nitrogen 17 mg/dL (7-17); Calcium 8.4 mg/dL (8.4-10.2); Hemolysis Index 16
[2018-08-06 06:29] LABS: Mean Corpuscular Volume 111 fl (79-97); Platelet Count 65 K/mm3 (140-440)
[2018-08-06 08:47] LABS: Anisocytosis 1+; Basophils % (Manual) 0 % (0.0-1.8); Macrocytosis 1+; Platelet Estimate Consistent w Auto; Total Cells Counted 100
[2018-08-06 09:39] LABS: INR 1.47 (0.87-1.13)
--- NOTE | 2018-08-06 10:54 | Gastroenterology Progress Note ---
<CALEB ALBERTO - Last Filed: 08/06/18 12:46> Assessment and Plan 1.hepatic encephalopathy -afebrile -WBC 3.1 -H/H WNL (14.0/41.5) -plt 65 -INR 1.47 s/p vit K -ammonia 76-trending down -LFTs stable (T.apple 2.30, AST 99, ALT 53, alk phos 85) -abd U/S showed fatty infiltration of the liver and gallstones (no acute cholecystitis, biliary dilation, or ascites) -etiology-alcoholic hepatitis and underlying cirrhosis (2/2 ETOH and Hep C). Encephalopathy is likely multifactorial but liver disease likely contributes. -clinically, patient's mental status is slowly improving. Denies abd pain or N/V. No active signs of bleeding. Tolerating diet. -continue xifaxan, lactulose (to goal of BM x 2-3/day), and empiric antibiotics -continue to trend labs and supportive care -alcohol cessation discussed/encouraged with patient-monitor for signs of withdrawal -electrolyte management per primary team -will follow Subjective Date of service: 08/06/18 Principal diagnosis: hepatic encephalopathy Interval history: No acute distress. Denies abd pain, N/V, or signs of bleeding. Tolerating diet. Objective - Constitutional Vitals: Temp Pulse Resp BP Pulse Ox 98.3 F 77 20 135/84 100 08/06/18 07:33 08/06/18 07:33 08/06/18 07:33 08/06/18 07:33 08/06/18 08:56 General appearance: no acute distress - Respiratory Respiratory: bilateral: CTA - Cardiovascular Rhythm: regular - Gastrointestinal General gastrointestinal: Present: soft, non-tender, non-distended, normal bowel sounds - Labs CBC & Chem 7: 08/06/18 04:31 08/06/18 04:31 Labs: Laboratory Results - last 24 hr 08/05/18 08/05/18 08/05/18 05:05 11:51 16:29 WBC RBC Hgb Hct MCV MCH MCHC RDW Plt Count [place] % (Auto) Add Manual Diff Total Counted Seg Neuts % (Manual) Band Neutrophils % Lymphocytes % (Manual) Reactive Lymphs % (Man) Monocytes % (Manual) Eosinophils % (Manual) Basophils % (Manual) Metamyelocytes % Myelocytes % Promyelocytes % Blast Cells % Nucleated RBC % Seg Neutrophils # Man Band Neutrophils # Lymphocytes # (Manual) Abs React Lymphs (Man) Monocytes # (Manual) Eosinophils # (Manual) Basophils # (Manual) Metamyelocytes # Myelocytes # Promyelocytes # Blast Cells # WBC Morphology Hypersegmented Neuts Hyposegmented Neuts Hypogranular Neuts Smudge Cells Toxic Granulation Toxic Vacuolation Dohle Bodies Pelger-Huet Anomaly Sheila Rods Platelet Estimate Clumped Platelets Plt Clumps, EDTA Large Platelets Giant Platelets Platelet Satelliting Plt Morphology Comment RBC Morphology Dimorphic RBCs Polychromasia Hypochromasia Poikilocytosis Anisocytosis Microcytosis Macrocytosis Spherocytes Pappenheimer Bodies Sickle Cells Target Cells Tear Drop Cells Ovalocytes Helmet Cells [place] Bodies Crosby Rings [place] Cells Bite Cells Crenated Cell Elliptocytes Acanthocytes (Spur) Rouleaux Hemoglobin C Crystals Schistocytes Malaria parasites [place] Bodies Hem Pathologist Commnt PT INR Sodium Potassium Chloride Carbon Dioxide Anion Gap BUN Creatinine Estimated GFR BUN/Creatinine Ratio Glucose POC Glucose 118 H 125 H Calcium Magnesium 1.80 Total Bilirubin AST ALT Alkaline Phosphatase Total Protein Albumin Albumin/Globulin Ratio 08/06/18 08/06/18 08/06/18 04:31 04:31 07:36 WBC 3.1 L RBC 3.75 Hgb 14.0 Hct 41.5 MCV 111 H MCH 37 H MCHC 34 RDW 15.6 H Plt Count 65 L [place] % (Auto) Supervisor Machine Setter Add Manual Diff Complete Total Counted 100 Seg Neuts % (Manual) 56.0 Band Neutrophils % 1.0 Lymphocytes % (Manual) 14.0 Reactive Lymphs % (Man) 0 Monocytes % (Manual) 27.0 H Eosinophils % (Manual) 1.0 Basophils % (Manual) 0 Metamyelocytes % 1.0 Myelocytes % 0 Promyelocytes % 0 Blast Cells % 0 Nucleated RBC % Not Reportable Seg Neutrophils # Man 1.7 L Band Neutrophils # 0.0 Lymphocytes # (Manual) 0.4 L Abs React Lymphs (Man) 0.0 Monocytes # (Manual) 0.8 Eosinophils # (Manual) 0.0 Basophils # (Manual) 0.0 Metamyelocytes # 0.0 Myelocytes # 0.0 Promyelocytes # 0.0 Blast Cells # 0.0 WBC Morphology Not Reportable Hypersegmented Neuts Not Reportable Hyposegmented Neuts Not Reportable Hypogranular Neuts Not Reportable Smudge Cells Not Reportable Toxic Granulation Not Reportable Toxic Vacuolation Not Reportable Dohle Bodies Not Reportable Pelger-Huet Anomaly Not Reportable Sheila Rods Not Reportable Platelet Estimate Consistent w auto Clumped Platelets Not Reportable Plt Clumps, EDTA Not Reportable Large Platelets Not Reportable Giant Platelets Not Reportable Platelet Satelliting Not Reportable Plt Morphology Comment Not Reportable RBC Morphology Not Reportable Dimorphic RBCs Not Reportable Polychromasia Not Reportable Hypochromasia Not Reportable Poikilocytosis Not Reportable Anisocytosis 1+ Microcytosis Few Macrocytosis 1+ Spherocytes Not Reportable Pappenheimer Bodies Not Reportable Sickle Cells Not Reportable Target Cells Not Reportable Tear Drop Cells Not Reportable Ovalocytes Not Reportable Helmet Cells Not Reportable [place] Bodies Not Reportable Crosby Rings Not Reportable [place] Cells Not Reportable Bite Cells Not Reportable Crenated Cell Not Reportable Elliptocytes Not Reportable Acanthocytes (Spur) Not Reportable Rouleaux Not Reportable Hemoglobin C Crystals Not Reportable Schistocytes Not Reportable Malaria parasites Not Reportable [place] Bodies Not Reportable Hem Pathologist Commnt No PT INR Sodium 145 Potassium 3.8 Chloride 111.9 H Carbon Dioxide 21 L Anion Gap 16 BUN 17 Creatinine 0.7 Estimated GFR > 60 BUN/Creatinine Ratio 24 Glucose 130 H POC Glucose 120 H Calcium 8.4 Magnesium Total Bilirubin 2.30 H AST 99 H ALT 53 Alkaline Phosphatase 85 Total Protein 6.1 L Albumin 2.4 L Albumin/Globulin Ratio 0.6 08/06/18 08:29 WBC RBC Hgb Hct MCV MCH MCHC RDW Plt Count [place] % (Auto) Add Manual Diff Total Counted Seg Neuts % (Manual) Band Neutrophils % Lymphocytes % (Manual) Reactive Lymphs % (Man) Monocytes % (Manual) Eosinophils % (Manual) Basophils % (Manual) Metamyelocytes % Myelocytes % Promyelocytes % Blast Cells % Nucleated RBC % Seg Neutrophils # Man Band Neutrophils # Lymphocytes # (Manual) Abs React Lymphs (Man) Monocytes # (Manual) Eosinophils # (Manual) Basophils # (Manual) Metamyelocytes # Myelocytes # Promyelocytes # Blast Cells # WBC Morphology Hypersegmented Neuts Hyposegmented Neuts Hypogranular Neuts Smudge Cells Toxic Granulation Toxic Vacuolation Dohle Bodies Pelger-Huet Anomaly Sheila Rods Platelet Estimate Clumped Platelets Plt Clumps, EDTA Large Platelets Giant Platelets Platelet Satelliting Plt Morphology Comment RBC Morphology Dimorphic RBCs Polychromasia Hypochromasia Poikilocytosis Anisocytosis Microcytosis Macrocytosis Spherocytes Pappenheimer Bodies Sickle Cells Target Cells Tear Drop Cells Ovalocytes Helmet Cells [place] Bodies Crosby Rings [place] Cells Bite Cells Crenated Cell Elliptocytes Acanthocytes (Spur) Rouleaux Hemoglobin C Crystals Schistocytes Malaria parasites [place] Bodies Hem Pathologist Commnt PT 18.8 H INR 1.47 H Sodium Potassium Chloride Carbon Dioxide Anion Gap BUN Creatinine Estimated GFR BUN/Creatinine Ratio Glucose POC Glucose Calcium Magnesium Total Bilirubin AST ALT Alkaline Phosphatase Total Protein Albumin Albumin/Globulin Ratio <AMBER LEZAMA R - Last Filed: 08/06/18 12:53> Assessment and Plan Pt stable. INR went up, and may be due to delayed absorption since vit K was given subQ. Monitor INR. Objective - Constitutional Vitals: Temp Pulse Resp BP Pulse Ox 98.3 F 77 20 135/84 100 08/06/18 07:33 08/06/18 07:33 08/06/18 07:33 08/06/18 07:33 08/06/18 08:56 - Labs CBC & Chem 7: 08/06/18 04:31 08/06/18 04:31 Labs: Laboratory Results - last 24 hr 08/05/18 08/06/18 08/06/18 16:29 04:31 04:31 WBC 3.1 L RBC 3.75 Hgb 14.0 Hct 41.5 MCV 111 H MCH 37 H MCHC 34 RDW 15.6 H Plt Count 65 L [place] % (Auto) Supervisor Machine Setter Add Manual Diff Complete Total Counted 100 Seg Neuts % (Manual) 56.0 Band Neutrophils % 1.0 Lymphocytes % (Manual) 14.0 Reactive Lymphs % (Man) 0 Monocytes % (Manual) 27.0 H Eosinophils % (Manual) 1.0 Basophils % (Manual) 0 Metamyelocytes % 1.0 Myelocytes % 0 Promyelocytes % 0 Blast Cells % 0 Nucleated RBC % Not Reportable Seg Neutrophils # Man 1.7 L Band Neutrophils # 0.0 Lymphocytes # (Manual) 0.4 L Abs React Lymphs (Man) 0.0 Monocytes # (Manual) 0.8 Eosinophils # (Manual) 0.0 Basophils # (Manual) 0.0 Metamyelocytes # 0.0 Myelocytes # 0.0 Promyelocytes # 0.0 Blast Cells # 0.0 WBC Morphology Not Reportable Hypersegmented Neuts Not Reportable Hyposegmented Neuts Not Reportable Hypogranular Neuts Not Reportable Smudge Cells Not Reportable Toxic Granulation Not Reportable Toxic Vacuolation Not Reportable Dohle Bodies Not Reportable Pelger-Huet Anomaly Not Reportable Sheila Rods Not Reportable Platelet Estimate Consistent w auto Clumped Platelets Not Reportable Plt Clumps, EDTA Not Reportable Large Platelets Not Reportable Giant Platelets Not Reportable Platelet Satelliting Not Reportable Plt Morphology Comment Not Reportable RBC Morphology Not Reportable Dimorphic RBCs Not Reportable Polychromasia Not Reportable Hypochromasia Not Reportable Poikilocytosis Not Reportable Anisocytosis 1+ Microcytosis Few Macrocytosis 1+ Spherocytes Not Reportable Pappenheimer Bodies Not Reportable Sickle Cells Not Reportable Target Cells Not Reportable Tear Drop Cells Not Reportable Ovalocytes Not Reportable Helmet Cells Not Reportable [place] Bodies Not Reportable Crosby Rings Not Reportable [place] Cells Not Reportable Bite Cells Not Reportable Crenated Cell Not Reportable Elliptocytes Not Reportable Acanthocytes (Spur) Not Reportable Rouleaux Not Reportable Hemoglobin C Crystals Not Reportable Schistocytes Not Reportable Malaria parasites Not Reportable [place] Bodies Not Reportable Hem Pathologist Commnt No PT INR Sodium 145 Potassium 3.8 Chloride 111.9 H Carbon Dioxide 21 L Anion Gap 16 BUN 17 Creatinine 0.7 Estimated GFR > 60 BUN/Creatinine Ratio 24 Glucose 130 H POC Glucose 125 H Calcium 8.4 Total Bilirubin 2.30 H AST 99 H ALT 53 Alkaline Phosphatase 85 Total Protein 6.1 L Albumin 2.4 L Albumin/Globulin Ratio 0.6 08/06/18 08/06/18 08/06/18 07:36 08:29 11:16 WBC RBC Hgb Hct MCV MCH MCHC RDW Plt Count [place] % (Auto) Add Manual Diff Total Counted Seg Neuts % (Manual) Band Neutrophils % Lymphocytes % (Manual) Reactive Lymphs % (Man) Monocytes % (Manual) Eosinophils % (Manual) Basophils % (Manual) Metamyelocytes % Myelocytes % Promyelocytes % Blast Cells % Nucleated RBC % Seg Neutrophils # Man Band Neutrophils # Lymphocytes # (Manual) Abs React Lymphs (Man) Monocytes # (Manual) Eosinophils # (Manual) Basophils # (Manual) Metamyelocytes # Myelocytes # Promyelocytes # Blast Cells # WBC Morphology Hypersegmented Neuts Hyposegmented Neuts Hypogranular Neuts Smudge Cells Toxic Granulation Toxic Vacuolation Dohle Bodies Pelger-Huet Anomaly Sheila Rods Platelet Estimate Clumped Platelets Plt Clumps, EDTA Large Platelets Giant Platelets Platelet Satelliting Plt Morphology Comment RBC Morphology Dimorphic RBCs Polychromasia Hypochromasia Poikilocytosis Anisocytosis Microcytosis Macrocytosis Spherocytes Pappenheimer Bodies Sickle Cells Target Cells Tear Drop Cells Ovalocytes Helmet Cells [place] Bodies Cros[place] Rings [place] Cells Bite Cells Crenated Cell Elliptocytes Acanthocytes (Spur) Rouleaux Hemoglobin C Crystals Schistocytes Malaria parasites [place] Bodies Hem Pathologist Commnt PT 18.8 H INR 1.47 H Sodium Potassium Chloride Carbon Dioxide Anion Gap BUN Creatinine Estimated GFR BUN/Creatinine Ratio Glucose POC Glucose 120 H 137 H Calcium Total Bilirubin AST ALT Alkaline Phosphatase Total Protein Albumin Albumin/Globulin Ratio
--- NOTE | 2018-08-06 11:15 | Progress Note ---
Assessment and Plan Acute Hepatic encephalopathy, improving - Continue lactulose, Monitor LFT, ammonia level improving slowly Sepsis with UTI, bacteremia and lactic acidosis Urinary tract infection Bacteremia with gm negative rods - IV antibiotics, IV fluid, follow final cx - repeat blood cx negative, will consult ID Elevated INR, s/p vit K, cont to monitor Diabetes type 2 - Monitor BG with SSI, Seizures disorder - cont keppra Hypernatremia, cont hypotonic fluid, improving hypokalemia, cont to replete as needed Hepatitis C, supportive care - GI consulted, started on xifaxane, monitor LFT for now thrombocytopenia, likely from CLD, cont to monitor Dementia, by history, cont to monitor Alcohol abuse, cont folate, thiamin, watch for withdrawal DVT prophylaxis, SCD Brief history: Mrs. Jones is a 67 yo female with hx of alcoholism, diabetes, seizure disorder, hepatic encephalopathy, alcohol related dementia, Hepatitis C, alcoholic liver disease who presents with altered mental status. Roommate reported to EMS that patient has been sitting on the couch in her own feces for the past 3 days without moving. Patient unable to give history due to altered mental status. Medical history obtained from EMR. In 2017, Mrs. Jones had a prolonged ICU course including intubation, tracheostomy, hemodialysis for status epilepticus, gram negative sepisis, hepatic encephalopathy. According to male friend, her last drink of alcohol was 4-5 days ago. She does not take any of her prescribed medications. She recently was [facility] a [facility] months ago. Physical exam: General Apperance: The patient lying in bed, breathing comfortable HEENT: Normocephalic, atraumatic. Pupils equally round and reactive to light, unable to do EOM, no sclericterus or JVD or thyromegaly or nodule, no carotid bruit, mucous membranes moist, unable to examine oral cavity Heart: S1-S2, regular is rhythm Lungs: Clear to auscultation bilaterally, breathing comfortable Abdomen: Positive bowel sounds, soft, nondistended, no organomegaly Extremities: No edema cyanosis clubbing Skin: no rash, nodule, warm and dry Neuro: alert but oriented to self only Subjective Date of service: 08/06/18 Principal diagnosis: hepatic encephalopathy Interval history: patient seen and examined much alert today but oriented X1, follows commend denies any chest pain, off restraint c/o generalized weakness Objective - Constitutional Vitals: Vital Signs - 12hr 08/06/18 08/06/18 08/06/18 01:55 01:56 07:33 Temperature 97.8 F 98.3 F Pulse Rate 60 89 77 Respiratory 20 20 Rate Blood Pressure 151/90 135/84 O2 Sat by Pulse 98 97 96 Oximetry 08/06/18 08:56 Temperature Pulse Rate Respiratory Rate Blood Pressure O2 Sat by Pulse 100 Oximetry - Labs CBC & Chem 7: 08/06/18 04:31 08/06/18 04:31 Labs: Abnormal lab results 08/05/18 08/05/18 08/06/18 Range/Units 11:51 16:29 04:31 WBC (4.5-11.0) K/mm3 MCV (79-97) fl MCH (28-32) pg RDW (13.2-15.2) % Plt Count (140-440) K/mm3 Monocytes % (Manual) (0.0-7.3) % Seg Neutrophils # Man (1.8-7.7) K/mm3 Lymphocytes # (Manual) (1.2-5.4) K/mm3 PT (12.2-14.9) Sec. INR (0.87-1.13) Chloride 111.9 H (98-107) mmol/L Carbon Dioxide 21 L (22-30) mmol/L Glucose 130 H (65-100) mg/dL POC Glucose 118 H 125 H (70-105) Total Bilirubin 2.30 H (0.1-1.2) mg/dL AST 99 H (5-40) units/L Total Protein 6.1 L (6.3-8.2) g/dL Albumin 2.4 L (3.9-5) g/dL 08/06/18 08/06/18 08/06/18 Range/Units 04:31 07:36 08:29 WBC 3.1 L (4.5-11.0) K/mm3 MCV 111 H (79-97) fl MCH 37 H (28-32) pg RDW 15.6 H (13.2-15.2) % Plt Count 65 L (140-440) K/mm3 Monocytes % (Manual) 27.0 H (0.0-7.3) % Seg Neutrophils # Man 1.7 L (1.8-7.7) K/mm3 Lymphocytes # (Manual) 0.4 L (1.2-5.4) K/mm3 PT 18.8 H (12.2-14.9) Sec. INR 1.47 H (0.87-1.13) Chloride (98-107) mmol/L Carbon Dioxide (22-30) mmol/L Glucose (65-100) mg/dL POC Glucose 120 H (70-105) Total Bilirubin (0.1-1.2) mg/dL AST (5-40) units/L Total Protein (6.3-8.2) g/dL Albumin (3.9-5) g/dL
[2018-08-06] MEDS: FOLVITE PO SCH (11:54)
[2018-08-06] MEDS: XIFAXAN PO SCH (11:54)
[2018-08-06] MEDS: VITAMIN B-1 PO SCH (11:54)
[2018-08-06] MEDS: PHOS-NAK PO SCH (11:55)
[2018-08-06] MEDS: KEPPRA 750 MG in NACL 0.9% 100 ML IV SCH (11:59)
[2018-08-06] MEDS: SODIUM CHLORIDE FLUSH SYRINGE 10 ML IV SCH (13:17)
[2018-08-06] MEDS: MAXIPIME/NS 2 GM/100 ML 2 GM/100 ML BAG IV SCH (13:17)
--- NOTE | 2018-08-06 14:37 | Consultation ---
History of Present Illness - Reason for Consult Consult date: 08/06/18 GNB bacteremia Requesting physician: FRANCOIS SARKAR - History of Present Illness 67 y/o female with history of liver disease due to active ETOH abuse/HCV, previous hepatic encephalopathy, alcohol related dementia, diabetes and seizure disorder; previous E coli UTI; admitted on 07/31/2018 due to AMS. Patient found confused and somnolent sitting on feces. In 2017, patient had a prolonged ICU course including intubation, tracheostomy, hemodialysis for status epilepticus, E coli UTI, hepatic encephalopathy. According to male friend, her last drink of alcohol was 4-5 days ago. She does not take any of her prescribed medications. She recently was discharged from a retirement 4-5 months ago. In the ED, temp 98, HR 164, R 20, BP 164/92. WBC 6, Hg 17, Plat 96. Creat 1.2. AST 63. UA 118 wbc and moderate LE. Blood culture 07/31/2018 GNR 1 of 4 bottles. Blood culture 08/03/2018 no growth today. Urine culture 07/18/2018 >100K normal skin antoni. CXR neg. CT head neg. UA abd fatty liver, cholelithiasis w/o cholecystitis. Review of Systems: unable to obtain due to baseline mentation Past History Past Medical History: other (as per HPI) Past Surgical History: Other (unknown) Social history: alcohol abuse Medications and Allergies Allergies Allergy/AdvReac Type Severity Reaction Status Date / Time No Known Allergies Allergy Verified 01/06/17 23:38 Home Medications Medication Instructions Recorded Confirmed Last Taken Type Unobtainable 08/01/18 08/01/18 Unknown History Active Meds: Active Medications Chlordiazepoxide HCl (Librium) 25 mg PO Q8H PRN PRN Reason: Anxiety Clonidine HCl (Catapres-Tts Patch) 0.2 mg TD QWEEK [facility] Dextrose (D50w (25gm) Syringe) 50 ml IV PRN PRN PRN Reason: Hypoglycemia Folic Acid (Folvite) 1 mg PO QDAY [facility] Last Admin: 08/06/18 11:54 Dose: 1 mg Documented by: Haloperidol Lactate (Haldol) 5 mg IM Q6H PRN PRN Reason: Agitation Last Admin: 08/05/18 00:18 Dose: 5 mg Documented by: Cefepime HCl (Maxipime/Ns 2 Gm/100 Ml) 2 gm in 100 mls @ 200 mls/hr IV Q12HR [facility]; Protocol Last Admin: 08/06/18 13:17 Dose: 200 mls/hr Documented by: Levetiracetam 750 mg/ Sodium (Chloride) 107.5 mls @ 400 mls/hr IV Q12HR [facility] Last Admin: 08/06/18 11:59 Dose: 400 mls/hr Documented by: Potassium Chloride 20 meq/ (Dextrose/Sodium Chloride) 1,010 mls @ 75 mls/hr IV DIRECT [facility] Last Admin: 08/05/18 23:49 Dose: 75 mls/hr Documented by: Lactulose (Cephulac) 20 gm PO Q6HR [facility] Last Admin: 08/06/18 11:55 Dose: 20 gm Documented by: Ondansetron HCl (Zofran) 4 mg IV Q4H PRN PRN Reason: Nausea And Vomiting Potassium Phos/Sodium Phos (Phos-Nak) 1 each PO Q12HR [facility] Last Admin: 08/06/18 11:55 Dose: 1 each Documented by: Rifaximin (Xifaxan) 550 mg PO BID [facility] Last Admin: 08/06/18 11:54 Dose: 550 mg Documented by: Sodium Chloride (Sodium Chloride Flush Syringe 10 Ml) 10 ml IV BID [facility] Last Admin: 08/06/18 13:17 Dose: 10 ml Documented by: Sodium Chloride (Sodium Chloride Flush Syringe 10 Ml) 10 ml IV PRN PRN PRN Reason: LINE FLUSH Thiamine HCl (Vitamin B-1) 100 mg PO QDAY [facility] Last Admin: 08/06/18 11:54 Dose: 100 mg Documented by: Physical Examination - Physical Exam Narrative exam: General appearance: Alert in NAD, conversant confused Eyes: anicteric sclerae, moist conjunctivae; no lid-lag; PERRLA HENT: Atraumatic; oropharynx clear with moist mucous membranes and no mucosal ulcerations/no oral thrush; normal hard and soft palate. Normal external ears. Neck: Trachea midline; supple, no thyromegaly or lymphadenopathy Lungs: CTA CV: RRR, no murmurs Abdomen: Soft, non-tender; no masses or hepatosplenomegaly Extremities: No peripheral edema or extremity lymphadenopathy Skin: Normal temperature, turgor and texture; no rash, ulcers or subcutaneous nodules Psych: Appropriate affect, alert and oriented to person, place and time. Neuro: alert and oriented x 3. Moving all extermities - Constitutional Vitals: Vital Signs Temp Pulse Resp BP Pulse Ox 97.7 F 76 18 138/79 98 08/06/18 13:30 08/06/18 13:30 08/06/18 13:30 08/06/18 13:30 08/06/18 13:30 Temperature -Last 24 Hours Temperature 97.7 F Temperature 98.3 F Temperature 97.8 F Temperature 98.3 F Results - Labs CBC & Chem 7: 08/06/18 04:31 08/06/18 04:31 Labs: Abnormal lab results 08/05/18 08/06/18 08/06/18 Range/Units 16:29 04:31 04:31 WBC 3.1 L (4.5-11.0) K/mm3 MCV 111 H (79-97) fl MCH 37 H (28-32) pg RDW 15.6 H (13.2-15.2) % Plt Count 65 L (140-440) K/mm3 Monocytes % (Manual) 27.0 H (0.0-7.3) % Seg Neutrophils # Man 1.7 L (1.8-7.7) K/mm3 Lymphocytes # (Manual) 0.4 L (1.2-5.4) K/mm3 PT (12.2-14.9) Sec. INR (0.87-1.13) Chloride 111.9 H (98-107) mmol/L Carbon Dioxide 21 L (22-30) mmol/L Glucose 130 H (65-100) mg/dL POC Glucose 125 H (70-105) Total Bilirubin 2.30 H (0.1-1.2) mg/dL AST 99 H (5-40) units/L Total Protein 6.1 L (6.3-8.2) g/dL Albumin 2.4 L (3.9-5) g/dL 08/06/18 08/06/18 08/06/18 Range/Units 07:36 08:29 11:16 WBC (4.5-11.0) K/mm3 MCV (79-97) fl MCH (28-32) pg RDW (13.2-15.2) % Plt Count (140-440) K/mm3 Monocytes % (Manual) (0.0-7.3) % Seg Neutrophils # Man (1.8-7.7) K/mm3 Lymphocytes # (Manual) (1.2-5.4) K/mm3 PT 18.8 H (12.2-14.9) Sec. INR 1.47 H (0.87-1.13) Chloride (98-107) mmol/L Carbon Dioxide (22-30) mmol/L Glucose (65-100) mg/dL POC Glucose 120 H 137 H (70-105) Total Bilirubin (0.1-1.2) mg/dL AST (5-40) units/L Total Protein (6.3-8.2) g/dL Albumin (3.9-5) g/dL Assessment and Plan Cultures: Blood culture 07/31/2018 GNR 1 of 4 bottles. Blood culture 08/03/2018 no growth today. Assessment: 67 y/o female with history of liver disease due to active ETOH abuse/HCV, previ ous hepatic encephalopathy, alcohol related dementia, diabetes and seizure disorder; previous E coli UTI; admitted on 07/31/2018 due to AMS. 1) Sepsis: Present on admission, manifested by tachycardia, increased lactate. Etiology most likely GNR bacteremia. 2) GNR bacteremia: from UTI. Blood culture 07/31/2018 GNR 1 of 4 bottles. Blood culture 08/03/2018 no growth today. 3) UTI: Renal US no hydro. UA 118 wbc and moderate LE. Urine culture 07/18/2018 >100K normal skin antoni. History of previous E coli UTI in 2017. 4) Acute on chronic encephalopathy: from sepsis +/- hepatic encephalopathy. Improving. Recommendations: - follow-up blood cultures - continue cefepime IV for now - follow-up urine cultures ID and MICs Dr Giron is rounding this weekend Will follow. Eileen Be MD Infectious Diseases Clinical Trial Data Manager [facility] M [phone] O [phone]
[2018-08-07] MEDS: CEPHULAC PO SCH ×5 (00:22→23:29)
[2018-08-07] MEDS: PHOS-NAK PO SCH ×3 (00:23→22:44)
[2018-08-07] MEDS: MAXIPIME/NS 2 GM/100 ML 2 GM/100 ML BAG IV SCH ×3 (00:23→22:43)
[2018-08-07] MEDS: XIFAXAN PO SCH ×3 (00:23→22:44)
[2018-08-07] MEDS: KEPPRA 750 MG in NACL 0.9% 100 ML IV SCH ×3 (00:24→22:42)
[2018-08-07] MEDS: SODIUM CHLORIDE FLUSH SYRINGE 10 ML IV SCH ×3 (00:24→22:44)
[2018-08-07] MEDS: KCL 20 MEQ in D5NS 0.2% 1,000 ML IV SCH (09:07)
[2018-08-07] MEDS: VITAMIN B-1 PO SCH (09:09)
[2018-08-07] MEDS: FOLVITE PO SCH (09:09)
--- NOTE | 2018-08-07 12:04 | Progress Note ---
Assessment and Plan Acute Hepatic encephalopathy, improving - Continue lactulose, Monitor LFT, ammonia level improving slowly - goal for 2-3 BM daily Sepsis with UTI, bacteremia and lactic acidosis Urinary tract infection Bacteremia with gm negative rods - IV antibiotics (cefepime), IV fluid, follow final cx - repeat blood cx negative, consulted ID Elevated INR, s/p vit K, cont to monitor Diabetes type 2 - Monitor BG with SSI, Seizures disorder - cont keppra Hypernatremia, cont hypotonic fluid, improving hypokalemia, cont to replete as needed Hepatitis C, supportive care - GI consulted, started on xifaxane, monitor LFT for now thrombocytopenia, likely from CLD, cont to monitor Dementia, by history, cont to monitor Alcohol abuse, cont folate, thiamin, watch for withdrawal on librium tapering dose DVT prophylaxis, SCD Cultures: Blood culture 07/31/2018 GNR 1 of 4 bottles. Blood culture 08/03/2018 no growth today. Urine Cx - normal skin antoni Brief history: Mrs. Jones is a 67 yo female with hx of alcoholism, diabetes, seizure disorder, hepatic encephalopathy, alcohol related dementia, Hepatitis C, alcoholic liver disease who presents with altered mental status. Roommate reported to EMS that patient has been sitting on the couch in her own feces for the past 3 days without moving. Patient unable to give history due to altered mental status. Medical history obtained from EMR. In 2017, Mrs. Jones had a prolonged ICU course including intubation, tracheostomy, hemodialysis for status epilepticus, gram negative sepisis, hepatic encephalopathy. According to male friend, her last drink of alcohol was 4-5 days ago. She does not take any of her prescribed medications. She recently was discharged from a care home 4-5 months ago. Physical exam: General Apperance: The patient lying in bed, breathing comfortable HEENT: Normocephalic, atraumatic. Pupils equally round and reactive to light, unable to do EOM, no sclericterus or JVD or thyromegaly or nodule, no carotid bruit, mucous membranes moist, unable to examine oral cavity Heart: S1-S2, regular is rhythm Lungs: Clear to auscultation bilaterally, breathing comfortable Abdomen: Positive bowel sounds, soft, nondistended, no organomegaly Extremities: No edema cyanosis clubbing Skin: no rash, nodule, warm and dry Neuro: alert but oriented to self only Subjective Date of service: 08/14/18 Principal diagnosis: hepatic encephalopathy Interval history: patient seen and examined much alert today but oriented X1, follows commend denies any chest pain, off restraint c/o generalized weakness hardly getting out of bed, PT recommendation pending Objective - Constitutional Vitals: Vital Signs - 12hr 08/07/18 08/07/18 02:43 07:31 Temperature 98.2 F 98.6 F Pulse Rate 87 73 Respiratory 20 18 Rate Blood Pressure 189/95 172/99 O2 Sat by Pulse 99 98 Oximetry - Labs CBC & Chem 7: 08/06/18 04:31 08/06/18 04:31 Labs: Abnormal lab results 08/06/18 08/06/18 08/07/18 Range/Units 16:09 22:46 07:32 POC Glucose 174 H 146 H 127 H (70-105) 08/07/18 Range/Units 11:19 POC Glucose 129 H (70-105)
--- NOTE | 2018-08-07 15:45 | Gastroenterology Progress Note ---
Assessment and Plan - Patient Problems (1) Acute hepatic encephalopathy Current Visit: Yes Status: Acute Plan to address problem: - Hepatic encephalopathy with active EtOH abuse (and hx of HCV). - Improved with dual lactulose and xifaxan; will continue. - Continue librium taper and PO MVI for possible EtOH-withdrawal component of AMS. - Supportive care at present. Subjective Date of service: 08/07/18 Principal diagnosis: Hepatic Encephalopathy Interval history: The patient is confabulating (talking to people not present) but oriented to self and location, and knows her name and . Not somnolent or tremulous. Denies abdominal pain or vomiting, and no reports of vomiting per nursing. Objective - Constitutional Vitals: Temp Pulse Resp BP Pulse Ox 98.7 F 69 18 133/78 98 08/07/18 14:11 08/07/18 14:11 08/07/18 14:11 08/07/18 14:11 08/07/18 14:11 General appearance: no acute distress - Respiratory Respiratory effort: normal Respiratory: bilateral: CTA - Cardiovascular Rhythm: regular Heart Sounds: Present: S1 & S2 - Gastrointestinal General gastrointestinal: Present: soft, non-tender, non-distended - Labs CBC & Chem 7: 08/06/18 04:31 08/06/18 04:31 Labs: Laboratory Results - last 24 hr 08/06/18 08/06/18 08/07/18 16:09 22:46 07:32 POC Glucose 174 H 146 H 127 H 08/07/18 11:19 POC Glucose 129 H
--- NOTE | 2018-08-07 16:48 | Progress Note ---
Assessment and Plan Cultures: Blood culture 07/31/2018 GNR 1 of 4 bottles. Blood culture 08/03/2018 no growth today. Assessment: 67 y/o female with history of liver disease due to active ETOH abuse/HCV, prev ious hepatic encephalopathy, alcohol related dementia, diabetes and seizure disorder; previous E coli UTI; admitted on 07/31/2018 due to AMS. 1) Sepsis: Present on admission, manifested by tachycardia, increased lactate. Etiology most likely GNR bacteremia. 2) GNR bacteremia: from UTI. Blood culture 07/31/2018 GNR 1 of 4 bottles. Blood culture 08/03/2018 no growth. 3) UTI: Renal US no hydro. UA 118 wbc and moderate LE. Urine culture 07/18/2018 >100K normal skin antoni. History of previous E coli UTI in 2017. 4) Acute on chronic encephalopathy: from sepsis +/- hepatic encephalopathy. Imp roving. Recommendations: - continue cefepime IV for now (has received about 5 days of abx), may be able to discharge on PO abx if cultures allow - follow-up blood cultures ID and MICs. I called micro lab, still no update on the culture Kyle Giron MD [facility] C: [phone] O: [phone] F: [phone] Subjective Date of service: 08/07/18 Principal diagnosis: Hepatic Encephalopathy Interval history: No fever. Mental status seems to be improving. Denies any complaints. States she wants to go home. Objective - Exam Narrative Exam: Physical Exam: Constitutional: Alert, cooperative. No acute distress Head, Ears, Nose: Normocephalic, atraumatic. External ears, nose normal Eyes: Conjunctivae/corneas clear. No icterus. No ptosis. Neck: Supple, no meningeal signs Oral: no thrush Cardiovascular: S1, S2 normal. Respiratory: Good air entry, clear to auscultation bilaterally GI: Soft, non-tender; bowel sounds normal. No peritoneal signs. No suprapubic or CVA tenderness Musculoskeletal: No pedal edema, no cyanosis. Skin: No rash or abscess Hem/Lymphatic: No palpable cervical or supraclavicular nodes. No lymphangitis Psych: Mood ok. Affect normal Neurological: Awake, alert. - Constitutional Vitals: Vital Signs Temp Pulse Resp BP Pulse Ox 98.7 F 69 18 133/78 98 08/07/18 14:11 08/07/18 14:11 08/07/18 14:11 08/07/18 14:11 08/07/18 14:11 Temperature -Last 24 Hours Temperature 98.7 F Temperature 98.6 F Temperature 98.2 F Temperature 98.4 F - Labs CBC & Chem 7: 08/06/18 04:31 08/06/18 04:31 Labs: Abnormal lab results 08/06/18 08/07/18 08/07/18 Range/Units 22:46 07:32 11:19 POC Glucose 146 H 127 H 129 H (70-105)
[2018-08-07] MEDS: LIBRIUM PO SCH (19:52)
[2018-08-07] MEDS: HALDOL IM PRN (22:42)
[2018-08-08] MEDS: KCL 20 MEQ in D5NS 0.2% 1,000 ML IV SCH ×2 (02:36→22:19)
[2018-08-08] MEDS: LIBRIUM PO SCH ×2 (05:08→17:57)
[2018-08-08] MEDS: FOLVITE PO SCH (10:26)
[2018-08-08] MEDS: KEPPRA PO SCH ×2 (10:26→22:20)
[2018-08-08] MEDS: MAXIPIME/NS 2 GM/100 ML 2 GM/100 ML BAG IV SCH ×2 (10:26→22:21)
[2018-08-08] MEDS: VITAMIN B-1 PO SCH (10:26)
[2018-08-08] MEDS: XIFAXAN PO SCH ×2 (10:27→22:20)
[2018-08-08] MEDS: PHOS-NAK PO SCH ×2 (10:28→22:21)
[2018-08-08] MEDS: SODIUM CHLORIDE FLUSH SYRINGE 10 ML IV SCH ×2 (10:34→22:20)
[2018-08-08] MEDS: CEPHULAC PO SCH ×3 (10:39→23:42)
[2018-08-08] MEDS ORDERED: HALDOL PO PRN (12:16)
--- NOTE | 2018-08-08 12:16 | Progress Note ---
Assessment and Plan Acute Hepatic encephalopathy, improving - Continue lactulose and xifaxane, Monitor LFT, ammonia level improved - goal for 2-3 BM daily Sepsis with UTI, bacteremia and lactic acidosis Urinary tract infection Bacteremia with gm negative rods - IV antibiotics (cefepime), IV fluid, follow final cx - repeat blood cx negative, consulted ID Elevated INR, s/p vit K, cont to monitor Diabetes type 2 - Monitor BG with SSI, Seizures disorder - cont keppra Hypernatremia, cont hypotonic fluid, improving hypokalemia, cont to replete as needed Hepatitis C, supportive care - GI consulted, started on xifaxane, monitor LFT for now thrombocytopenia, likely from CLD, cont to monitor Dementia, by history, cont to monitor Alcohol abuse, cont folate, thiamin, watch for withdrawal - on librium tapering dose Stage 2 sacral wound/skin excoriation, POA - wound care following DVT prophylaxis, SCD Cultures: Blood culture 07/31/2018 GNR 1 of 4 bottles. Blood culture 08/03/2018 no growth today. Urine Cx - normal skin antoni Disposition: may need placement, wait for PT recommendation Brief history: Mrs. Jones is a 67 yo female with hx of alcoholism, diabetes, seizure disorder, hepatic encephalopathy, alcohol related dementia, Hepatitis C, alcoholic liver disease who presents with altered mental status. Roommate reported to EMS that patient has been sitting on the couch in her own feces for the past 3 days without moving. Patient unable to give history due to altered mental status. Medical history obtained from EMR. In 2017, Mrs. Jones had a prolonged ICU course including intubation, tracheostomy, hemodialysis for status epilepticus, gram negative sepisis, hepatic encephalopathy. According to male friend, her last drink of alcohol was 4-5 days ago. She does not take any of her prescribed medications. She recently was discharged from a shelter 4-5 months ago. Physical exam: General Apperance: The patient lying in bed, breathing comfortable HEENT: Normocephalic, atraumatic. Pupils equally round and reactive to light, unable to do EOM, no sclericterus or JVD or thyromegaly or nodule, no carotid bruit, mucous membranes moist, unable to examine oral cavity Heart: S1-S2, regular is rhythm Lungs: Clear to auscultation bilaterally, breathing comfortable Abdomen: Positive bowel sounds, soft, nondistended, no organomegaly Extremities: No edema cyanosis clubbing Skin: no rash, nodule, warm and dry Neuro: alert but oriented to self and place only Subjective Date of service: 08/08/18 Principal diagnosis: hepatic encephalopathy Interval history: patient seen and examined much alert today but oriented X2, follows commend denies any chest pain, off restraint c/o generalized weakness hardly getting out of bed, PT recommendation pending Objective - Constitutional Vitals: Vital Signs - 12hr 08/08/18 08/08/18 01:37 01:58 Temperature 97.5 F L 97.2 F L Pulse Rate 74 Respiratory 20 Rate Blood Pressure 133/80 O2 Sat by Pulse 96 Oximetry - Labs CBC & Chem 7: 08/06/18 04:31 08/06/18 04:31 Labs: Abnormal lab results 08/07/18 08/07/18 08/08/18 Range/Units 20:02 21:51 07:32 POC Glucose 114 H 126 H (70-105) Prealbumin 0.092 L (0.200-0.400) g/L 08/08/18 Range/Units 11:44 POC Glucose 132 H (70-105) Prealbumin (0.200-0.400) g/L
--- NOTE | 2018-08-08 15:35 | Gastroenterology Progress Note ---
Assessment and Plan - Patient Problems (1) Acute hepatic encephalopathy Current Visit: Yes Status: Acute Plan to address problem: - Hepatic encephalopathy with active EtOH abuse (and hx of HCV). - Improved with dual lactulose and xifaxan; will continue. - Continue librium taper and PO MVI for possible EtOH-withdrawal component of AMS. - Supportive care at present. Subjective Date of service: 08/08/18 Principal diagnosis: hepatic encephalopathy Interval history: The patient is eating better today, and appears less agitated, though still not sure where she is. No N/V/abdominal pain. Objective - Constitutional Vitals: Temp Pulse Resp BP Pulse Ox 98.3 F 71 18 142/80 98 08/08/18 13:00 08/08/18 13:00 08/08/18 13:00 08/08/18 13:00 08/08/18 13:00 General appearance: no acute distress - EENT Eyes: PERRL, EOM intact ENT: hearing intact - Respiratory Respiratory effort: normal Respiratory: bilateral: CTA - Cardiovascular Rhythm: regular Heart Sounds: Present: S1 & S2 - Gastrointestinal General gastrointestinal: Present: soft, non-tender, non-distended - Labs CBC & Chem 7: 08/06/18 04:31 08/06/18 04:31 Labs: Laboratory Results - last 24 hr 08/07/18 08/07/18 08/07/18 16:38 16:54 20:02 POC Glucose 97 Ammonia 32.0 Prealbumin 0.092 L 08/07/18 08/08/18 08/08/18 21:51 07:32 11:44 POC Glucose 114 H 126 H 132 H Ammonia Prealbumin
[2018-08-08 16:54] LABS: Hematocrit 40.2 % (30.3-42.9); Hemoglobin 13.8 gm/dl (10.1-14.3); Mean Corpuscular HGB Conc 34 % (30-34); Red Blood Count 3.62 M/mm3 (3.65-5.03); Red Cell Distribution Width 14.7 % (13.2-15.2)
[2018-08-08 17:04] LABS: Mean Corpuscular Volume 111 fl (79-97); Platelet Count 70 K/mm3 (140-440)
[2018-08-08 17:23] LABS: Albumin 2.2 g/dL (3.9-5); BUN/Creatinine Ratio 24; Blood Urea Nitrogen 12 mg/dL (7-17); Calcium 8.4 mg/dL (8.4-10.2); Hemolysis Index 104
[2018-08-08 17:30] LABS: Alanine Aminotransferase 42 units/L (7-56)
[2018-08-08 19:00] LABS: Anisocytosis 1+; Macrocytosis 1+; Total Cells Counted 100
[2018-08-08 19:01] LABS: Platelet Estimate Consistent w Auto
[2018-08-09] MEDS: LIBRIUM PO SCH ×2 (06:33→18:00)
--- NOTE | 2018-08-09 08:27 | Progress Note ---
Assessment and Plan Cultures: Blood culture 07/31/2018 GNR 1 of 4 bottles. Blood culture 08/03/2018 no growth today. Assessment: 67 y/o female with history of liver disease due to active ETOH abuse/HCV, prev ious hepatic encephalopathy, alcohol related dementia, diabetes and seizure disorder; previous E coli UTI; admitted on 07/31/2018 due to AMS. 1) Sepsis: Improved. Etiology most likely GNR bacteremia. 2) GNR bacteremia: from UTI. Blood culture 07/31/2018 GNR 1 of 4 bottles. Blood culture 08/03/2018 no growth. 3) UTI: Renal US no hydro. UA 118 wbc and moderate LE. Urine culture 07/18/2018 >100K normal skin antoni. History of previous E coli UTI in 2017. 4) Acute on chronic encephalopathy: continuing , from sepsis +/- hepatic encephalopathy. Recommendations: - continue cefepime IV for now, D6 - may be able to discharge on PO abx if cultures allow - follow-up blood cultures ID and ANABEL (will result early AM per microbiology tech) Maryam Godfrey NP [facility] M: [phone] O:[phone] Subjective Date of service: 08/09/18 Principal diagnosis: hepatic encephalopathy Interval history: Patent seen and examined. Confused, not following simple commands at this time. No acute distress observed. Objective - Exam Narrative Exam: Constitutional: Alert, confused. No acute distress Head, Ears, Nose: Normocephalic, atraumatic. External ears, nose normal Eyes: Conjunctivae/corneas clear. No icterus. No ptosis. Neck: Supple, no meningeal signs Oral: no thrush Cardiovascular: S1, S2 normal. Respiratory: Good air entry, clear to auscultation bilaterally GI: Soft, non-tender; bowel sounds normal. No peritoneal signs. No suprapubic or CVA tenderness Musculoskeletal: No pedal edema, no cyanosis. Skin: No rash or abscess Hem/Lymphatic: No palpable cervical or supraclavicular nodes. No lymphangitis Psych: Mood ok. Affect flat. Neurological: Awake, alert. confused. - Constitutional Vitals: Vital Signs Temp Pulse Resp BP Pulse Ox 98.2 F 77 20 155/74 99 08/09/18 02:11 08/09/18 02:13 08/09/18 02:11 08/09/18 02:11 08/09/18 02:13 Temperature -Last 24 Hours Temperature 98.2 F Temperature 98.3 F Temperature 98.3 F - Labs CBC & Chem 7: 08/08/18 16:18 08/08/18 16:18 Labs: Abnormal lab results 08/08/18 08/08/18 08/08/18 Range/Units 11:44 16:18 16:18 WBC 3.4 L (4.5-11.0) K/mm3 RBC 3.62 L (3.65-5.03) M/mm3 MCV 111 H (79-97) fl MCH 38 H (28-32) pg Plt Count 70 L (140-440) K/mm3 Monocytes % (Manual) 14.0 H (0.0-7.3) % Lymphocytes # (Manual) 0.5 L (1.2-5.4) K/mm3 Creatinine 0.5 L (0.7-1.2) mg/dL Glucose 192 H (65-100) mg/dL POC Glucose 132 H (70-105) Total Bilirubin 2.00 H (0.1-1.2) mg/dL AST 69 H (5-40) units/L Total Protein 6.2 L (6.3-8.2) g/dL Albumin 2.2 L (3.9-5) g/dL 08/08/18 08/08/18 08/09/18 Range/Units 16:30 22:03 07:55 WBC (4.5-11.0) K/mm3 RBC (3.65-5.03) M/mm3 MCV (79-97) fl MCH (28-32) pg Plt Count (140-440) K/mm3 Monocytes % (Manual) (0.0-7.3) % Lymphocytes # (Manual) (1.2-5.4) K/mm3 Creatinine (0.7-1.2) mg/dL Glucose (65-100) mg/dL POC Glucose 181 H 111 H 113 H (70-105) Total Bilirubin (0.1-1.2) mg/dL AST (5-40) units/L Total Protein (6.3-8.2) g/dL Albumin (3.9-5) g/dL
[2018-08-09] MEDS: KEPPRA PO SCH ×2 (09:38→22:09)
[2018-08-09] MEDS: FOLVITE PO SCH (09:38)
[2018-08-09] MEDS: PHOS-NAK PO SCH ×2 (09:38→22:09)
[2018-08-09] MEDS: XIFAXAN PO SCH ×2 (09:38→22:10)
[2018-08-09] MEDS: VITAMIN B-1 PO SCH (09:38)
[2018-08-09] MEDS: MAXIPIME/NS 2 GM/100 ML 2 GM/100 ML BAG IV SCH ×2 (09:39→22:09)
[2018-08-09] MEDS: SODIUM CHLORIDE FLUSH SYRINGE 10 ML IV SCH ×2 (09:39→22:11)
--- NOTE | 2018-08-09 12:10 | Gastroenterology Progress Note ---
Assessment and Plan 1.hepatic encephalopathy -afebrile -WBC 3.4 -H/H WNL (13.8/40.2) -plt 70 -INR 1.47 s/p vit K -ammonia 32-trended down to normal -LFTs stable (T.apple 2.00, AST 69, ALT 42, alk phos 69) -abd U/S showed fatty infiltration of the liver and gallstones (no acute cholecystitis, biliary dilation, or ascites) -etiology-alcoholic hepatitis and underlying cirrhosis (2/2 ETOH and Hep C). Encephalopathy is likely multifactorial but liver disease likely contributes. -clinically, patient's mental status has slowly improved back to baseline. Denies abd pain or N/V. No active signs of bleeding. Tolerating diet. -continue xifaxan, lactulose (to goal of BM x 2-3/day), and empiric antibiotics (per ID recommendations) -Continue librium taper and PO MVI for possible EtOH-withdrawal component of AMS. -continue to trend labs and supportive care -alcohol cessation discussed/encouraged with patient -electrolyte management per primary team -no further GI recommendations at this time -patient okay to be d/c per GI standpoint with f/u in clinic for further management -will sign off, please call if needed Subjective Date of service: 08/09/18 Principal diagnosis: hepatic encephalopathy Interval history: No acute distress. Denies abd pain, N/V, or signs of bleeding. Tolerating diet. Objective - Constitutional Vitals: Temp Pulse Resp BP Pulse Ox 98.0 F 73 22 148/88 100 08/09/18 07:29 08/09/18 07:29 08/09/18 07:29 08/09/18 07:29 08/09/18 07:29 General appearance: no acute distress - Respiratory Respiratory: bilateral: CTA - Cardiovascular Rhythm: regular - Gastrointestinal General gastrointestinal: Present: soft, non-tender, non-distended, normal bowel sounds - Labs CBC & Chem 7: 08/08/18 16:18 08/08/18 16:18 Labs: Laboratory Results - last 24 hr 08/08/18 08/08/18 08/08/18 16:18 16:18 16:30 WBC 3.4 L RBC 3.62 L Hgb 13.8 Hct 40.2 MCV 111 H MCH 38 H MCHC 34 RDW 14.7 Plt Count 70 L Weld % (Auto) Weaving Professor Add Manual Diff Complete Total Counted 100 Seg Neuts % (Manual) 67.0 Band Neutrophils % 1.0 Lymphocytes % (Manual) 15.0 Reactive Lymphs % (Man) 0 Monocytes % (Manual) 14.0 H Eosinophils % (Manual) 2.0 Basophils % (Manual) 1.0 Metamyelocytes % 0 Myelocytes % 0 Promyelocytes % 0 Blast Cells % 0 Nucleated RBC % Not Reportable Seg Neutrophils # Man 2.3 Band Neutrophils # 0.0 Lymphocytes # (Manual) 0.5 L Abs React Lymphs (Man) 0.0 Monocytes # (Manual) 0.5 Eosinophils # (Manual) 0.1 Basophils # (Manual) 0.0 Metamyelocytes # 0.0 Myelocytes # 0.0 Promyelocytes # 0.0 Blast Cells # 0.0 WBC Morphology Not Reportable Hypersegmented Neuts Not Reportable Hyposegmented Neuts Not Reportable Hypogranular Neuts Not Reportable Smudge Cells Not Reportable Toxic Granulation Not Reportable Toxic Vacuolation Not Reportable Dohle Bodies Not Reportable Pelger-Huet Anomaly Not Reportable Sheila Rods Not Reportable Platelet Estimate Consistent w auto Clumped Platelets Not Reportable Plt Clumps, EDTA Not Reportable Large Platelets Not Reportable Giant Platelets Not Reportable Platelet Satelliting Not Reportable Plt Morphology Comment Not Reportable RBC Morphology Not Reportable Dimorphic RBCs Not Reportable Polychromasia Not Reportable Hypochromasia Not Reportable Poikilocytosis Not Reportable Anisocytosis 1+ Microcytosis Not Reportable Macrocytosis 1+ Spherocytes Not Reportable Pappenheimer Bodies Not Reportable Sickle Cells Not Reportable Target Cells Not Reportable Tear Drop Cells Not Reportable Ovalocytes Not Reportable Helmet Cells Not Reportable [place] Bodies Not Reportable [place] Rings Not Reportable [place] Cells Not Reportable Bite Cells Not Reportable Crenated Cell Not Reportable Elliptocytes Not Reportable Acanthocytes (Spur) Not Reportable Rouleaux Not Reportable Hemoglobin C Crystals Not Reportable Schistocytes Not Reportable Malaria parasites Not Reportable [place] Bodies Not Reportable Hem Pathologist Commnt No Sodium 137 D Potassium 4.9 D Chloride 106.8 Carbon Dioxide 22 Anion Gap 13 BUN 12 Creatinine 0.5 L Estimated GFR > 60 BUN/Creatinine Ratio 24 Glucose 192 H POC Glucose 181 H Calcium 8.4 Total Bilirubin 2.00 H AST 69 H ALT 42 Alkaline Phosphatase 69 Total Protein 6.2 L Albumin 2.2 L Albumin/Globulin Ratio 0.6 08/08/18 08/09/18 08/09/18 22:03 07:55 11:28 WBC RBC Hgb Hct MCV MCH MCHC RDW Plt Count [place]eld % (Auto) Add Manual Diff Total Counted Seg Neuts % (Manual) Band Neutrophils % Lymphocytes % (Manual) Reactive Lymphs % (Man) Monocytes % (Manual) Eosinophils % (Manual) Basophils % (Manual) Metamyelocytes % Myelocytes % Promyelocytes % Blast Cells % Nucleated RBC % Seg Neutrophils # Man Band Neutrophils # Lymphocytes # (Manual) Abs React Lymphs (Man) Monocytes # (Manual) Eosinophils # (Manual) Basophils # (Manual) Metamyelocytes # Myelocytes # Promyelocytes # Blast Cells # WBC Morphology Hypersegmented Neuts Hyposegmented Neuts Hypogranular Neuts Smudge Cells Toxic Granulation Toxic Vacuolation Dohle Bodies Pelger-Huet Anomaly Sheila Rods Platelet Estimate Clumped Platelets Plt Clumps, EDTA Large Platelets Giant Platelets Platelet Satelliting Plt Morphology Comment RBC Morphology Dimorphic RBCs Polychromasia Hypochromasia Poikilocytosis Anisocytosis Microcytosis Macrocytosis Spherocytes Pappenheimer Bodies Sickle Cells Target Cells Tear Drop Cells Ovalocytes Helmet Cells [place] Bodies [place] Rings [place] Cells Bite Cells Crenated Cell Elliptocytes Acanthocytes (Spur) Rouleaux Hemoglobin C Crystals Schistocytes Malaria parasites [place] Bodies Hem Pathologist Commnt Sodium Potassium Chloride Carbon Dioxide Anion Gap BUN Creatinine Estimated GFR BUN/Creatinine Ratio Glucose POC Glucose 111 H 113 H 119 H Calcium Total Bilirubin AST ALT Alkaline Phosphatase Total Protein Albumin Albumin/Globulin Ratio
[2018-08-09] MEDS: CEPHULAC PO SCH ×2 (12:48→23:18)
[2018-08-09] MEDS: KCL 20 MEQ in D5NS 0.2% 1,000 ML IV SCH (13:30)
--- NOTE | 2018-08-09 14:26 | Progress Note ---
Assessment and Plan Acute Hepatic encephalopathy, improving - Continue lactulose and xifaxane, Monitor LFT, ammonia level improved - goal for 2-3 BM daily Sepsis with UTI, bacteremia and lactic acidosis Urinary tract infection Bacteremia with gm negative rods - IV antibiotics (cefepime), IV fluid, follow final cx - repeat blood cx negative, consulted ID Elevated INR, s/p vit K, cont to monitor Diabetes type 2 - Monitor BG with SSI, Seizures disorder - cont keppra Hypernatremia, cont hypotonic fluid, improving hypokalemia, cont to replete as needed Hepatitis C, supportive care - GI consulted, started on xifaxane, monitor LFT for now thrombocytopenia, likely from CLD, cont to monitor Dementia, by history, cont to monitor Alcohol abuse, cont folate, thiamin, watch for withdrawal - on librium tapering dose Stage 2 sacral wound/skin excoriation, POA - wound care following DVT prophylaxis, SCD Cultures: Blood culture 07/31/2018 GNR 1 of 4 bottles. Blood culture 08/03/2018 no growth today. Urine Cx - normal skin antoni Disposition: may need placement, wait for PT recommendation Brief history: Mrs. Jones is a 67 yo female with hx of alcoholism, diabetes, seizure disorder, hepatic encephalopathy, alcohol related dementia, Hepatitis C, alcoholic liver disease who presents with altered mental status. Roommate reported to EMS that patient has been sitting on the couch in her own feces for the past 3 days without moving. In 2017, Mrs. Jones had a prolonged ICU course including intubation, tracheostomy, hemodialysis for status epilepticus, gram negative sepisis, hepatic encephalopathy. According to male friend, her last drink of alcohol was 4-5 days ago before admission. She does not take any of her prescribed medications. She recently was discharged from a residential 4-5 months ago. Her ammonia level was 166 on admission, she was placed on lactulose, consulted GI. Ammonia level trended down, blood cx grew gm neg bacteremia - repeat blood cx negative. ID following, PT consulted for discharge clearance. Physical exam: General Apperance: The patient lying in bed, breathing comfortable HEENT: Normocephalic, atraumatic. Pupils equally round and reactive to light, unable to do EOM, no sclericterus or JVD or thyromegaly or nodule, no carotid bruit, mucous membranes moist, unable to examine oral cavity Heart: S1-S2, regular is rhythm Lungs: Clear to auscultation bilaterally, breathing comfortable Abdomen: Positive bowel sounds, soft, nondistended, no organomegaly Extremities: No edema cyanosis clubbing Skin: no rash, nodule, warm and dry Neuro: alert but oriented to self and place only Subjective Date of service: 08/09/18 Principal diagnosis: hepatic encephalopathy Interval history: patient seen and examined much alert today but oriented X2, follows commend denies any chest pain, off restraint c/o generalized weakness hardly getting out of bed, PT recommendation pending Objective - Constitutional Vitals: Vital Signs - 12hr 08/09/18 07:29 Temperature 98.0 F Pulse Rate 73 Respiratory 22 Rate Blood Pressure 148/88 O2 Sat by Pulse 100 Oximetry - Labs CBC & Chem 7: 08/08/18 16:18 08/08/18 16:18 Labs: Abnormal lab results 08/08/18 08/08/18 08/08/18 Range/Units 16:18 16:18 16:30 WBC 3.4 L (4.5-11.0) K/mm3 RBC 3.62 L (3.65-5.03) M/mm3 MCV 111 H (79-97) fl MCH 38 H (28-32) pg Plt Count 70 L (140-440) K/mm3 Monocytes % (Manual) 14.0 H (0.0-7.3) % Lymphocytes # (Manual) 0.5 L (1.2-5.4) K/mm3 Creatinine 0.5 L (0.7-1.2) mg/dL Glucose 192 H (65-100) mg/dL POC Glucose 181 H (70-105) Total Bilirubin 2.00 H (0.1-1.2) mg/dL AST 69 H (5-40) units/L Total Protein 6.2 L (6.3-8.2) g/dL Albumin 2.2 L (3.9-5) g/dL 08/08/18 08/09/18 08/09/18 Range/Units 22:03 07:55 11:28 WBC (4.5-11.0) K/mm3 RBC (3.65-5.03) M/mm3 MCV (79-97) fl MCH (28-32) pg Plt Count (140-440) K/mm3 Monocytes % (Manual) (0.0-7.3) % Lymphocytes # (Manual) (1.2-5.4) K/mm3 Creatinine (0.7-1.2) mg/dL Glucose (65-100) mg/dL POC Glucose 111 H 113 H 119 H (70-105) Total Bilirubin (0.1-1.2) mg/dL AST (5-40) units/L Total Protein (6.3-8.2) g/dL Albumin (3.9-5) g/dL
[2018-08-10] MEDS: LIBRIUM PO SCH ×2 (04:57→18:50)
--- NOTE | 2018-08-10 08:32 | Progress Note ---
Assessment and Plan Cultures: Blood culture 07/31/2018 GNR 1 of 4 bottles. Blood culture 08/03/2018 no growth today. Assessment: 67 y/o female with history of liver disease due to active ETOH abuse/HCV, prev ious hepatic encephalopathy, alcohol related dementia, diabetes and seizure disorder; previous E coli UTI; admitted on 07/31/2018 due to AMS. 1) Sepsis: Resolved. Etiology most likely GNR bacteremia. 2) GNR bacteremia: from UTI. Blood culture 07/31/2018 GNR 1 of 4 bottles. Blood culture 08/03/2018 no growth. 3) UTI: Renal US no hydro. UA 118 wbc and moderate LE. Urine culture 07/18/2018 >100K normal skin antoni. History of previous E coli UTI in 2017. 4) Acute on chronic encephalopathy: continuing , from sepsis +/- hepatic encephalopathy. Recommendations: - Discontinue cefepime D8 - follow-up blood cultures ID and ANABEL, still not available per micro tech -CBC ordered for tomorrow -monitor off antibiotics [facility] M: [id number] O:[phone] Subjective Date of service: 08/10/18 Principal diagnosis: hepatic encephalopathy Interval history: Patent seen and examined. Confusion continuing, however able to follow simple commands. No acute distress. Objective - Exam Narrative Exam: Constitutional: Alert, confused. No acute distress Head, Ears, Nose: Normocephalic, atraumatic. External ears, nose normal Eyes: Conjunctivae/corneas clear. No icterus. No ptosis. Neck: Supple, no meningeal signs Oral: no thrush Cardiovascular: S1, S2 normal. Respiratory: Good air entry, clear to auscultation bilaterally GI: Soft, non-tender; bowel sounds normal. No peritoneal signs. No suprapubic or CVA tenderness Musculoskeletal: No pedal edema, no cyanosis. Skin: No rash or abscess, left superficial buttocks wound with some bleeding from patient scratching Hem/Lymphatic: No palpable cervical or supraclavicular nodes. No lymphangitis Psych: Mood ok. Affect flat. Neurological: Awake, alert. confused. - Constitutional Vitals: Vital Signs Temp Pulse Resp BP Pulse Ox 98.2 F 82 20 144/102 96 08/10/18 01:46 08/10/18 01:46 08/10/18 01:46 08/10/18 01:46 08/10/18 01:46 Temperature -Last 24 Hours Temperature 98.2 F Temperature 98.3 F Temperature 98.7 F - Labs CBC & Chem 7: 08/08/18 16:18 08/08/18 16:18 Labs: Abnormal lab results 08/09/18 08/09/18 08/09/18 Range/Units 11:28 16:31 21:54 POC Glucose 119 H 143 H 127 H (70-105)
[2018-08-10] MEDS: PHOS-NAK PO SCH ×2 (10:21→21:53)
[2018-08-10] MEDS: KEPPRA PO SCH ×2 (10:21→21:53)
[2018-08-10] MEDS: XIFAXAN PO SCH ×2 (10:21→21:53)
[2018-08-10] MEDS: FOLVITE PO SCH (10:22)
[2018-08-10] MEDS: VITAMIN B-1 PO SCH (10:22)
[2018-08-10] MEDS: SODIUM CHLORIDE FLUSH SYRINGE 10 ML IV SCH ×2 (10:22→21:54)
[2018-08-10] MEDS: MAXIPIME/NS 2 GM/100 ML 2 GM/100 ML BAG IV SCH (10:25)
[2018-08-10] MEDS: CEPHULAC PO SCH (13:33)
--- NOTE | 2018-08-10 14:30 | Progress Note ---
Assessment and Plan Assessment and plan: Mrs. Jones is a 67 yo female with hx of alcoholism, diabetes, seizure disorder, hepatic encephalopathy, alcohol related dementia, Hepatitis C, alcoholic liver disease who presents with altered mental status. Roommate reported to EMS that patient has been sitting on the couch in her own feces for the past 3 days without moving. In 2017, Mrs. Jones had a prolonged ICU course including intubation, tracheostomy, hemodialysis for status epilepticus, gram negative sepisis, hepatic encephalopathy. According to male friend, her last drink of alcohol was 4-5 days ago before admission. She does not take any of her prescribed medications. She recently was discharged from a snf 4-5 months ago. Her ammonia level was 166 on admission, she was placed on lactulose, consulted GI. Ammonia level trended down, blood cx grew Gm neg bacteremia - repeat blood cx negative. ID following, PT consulted for discharge clearance. Acute Hepatic encephalopathy, improving - Continue lactulose and xifaxane, Monitor LFT, ammonia level improved - goal for 2-3 BM daily Sepsis with UTI, bacteremia and lactic acidosis Urinary tract infection Bacteremia with Gram negative rods - IV antibiotics (cefepime), IV fluid, follow final cx - repeat blood cx negative, ID following Elevated INR, s/p vit K, cont to monitor Diabetes type 2 - Monitor BG with SSI, Seizures disorder - cont keppra Hypernatremia, Resolved hypokalemia, Resolved Hepatitis C, supportive care - GI consulted, started on xifaxane, monitor LFT for now thrombocytopenia, likely from CLD, cont to monitor Dementia, by history, cont to monitor Alcohol abuse, cont folate, thiamin, watch for withdrawal - on librium tapering dose Stage 2 sacral wound/skin excoriation, POA - wound care following DVT prophylaxis, SCD Physical Therapy to re-evaluate History Interval history: Gen weakness Hospitalist Physical - Physical exam Narrative exam: GEN: Not in acute distress, lying in bed, obese HEENT: Normocephalic, atraumatic, Neck: supple, No JVD heart: S1 and S2 reg, no murmurs, rubs or gallop Lungs: Clear to auscultation bilaterally, no wheeze Abd:soft, non tender, non distended, normal bowel sounds Ext: No edema,no clubbing, no cyanosis, Neuro:Awake,alert,oriented to person, place, not to time. - Constitutional Vitals: Temp Pulse Resp BP Pulse Ox 97.9 F 82 20 174/96 98 08/10/18 07:23 08/10/18 07:23 08/10/18 07:23 08/10/18 07:23 08/10/18 07:23 Results - Labs CBC & Chem 7: 08/08/18 16:18 08/08/18 16:18 Labs: Laboratory Last Values WBC 3.4 K/mm3 (4.5-11.0) L 08/08/18 16:18 RBC 3.62 M/mm3 (3.65-5.03) L 08/08/18 16:18 Hgb 13.8 gm/dl (10.1-14.3) 08/08/18 16:18 Hct 40.2 % (30.3-42.9) 08/08/18 16:18 MCV 111 fl (79-97) H 08/08/18 16:18 MCH 38 pg (28-32) H 08/08/18 16:18 MCHC 34 % (30-34) 08/08/18 16:18 RDW 14.7 % (13.2-15.2) 08/08/18 16:18 Plt Count 70 K/mm3 (140-440) L 08/08/18 16:18 Dickens % (Auto) Director Of Cardiopulmonary Services 08/08/18 16:18 Add Manual Diff Complete 08/08/18 16:18 Total Counted 100 08/08/18 16:18 Seg Neuts % (Manual) 67.0 % (40.0-70.0) 08/08/18 16:18 Band Neutrophils % 1.0 % 08/08/18 16:18 Lymphocytes % (Manual) 15.0 % (13.4-35.0) 08/08/18 16:18 Reactive Lymphs % (Man) 0 % 08/08/18 16:18 Monocytes % (Manual) 14.0 % (0.0-7.3) H 08/08/18 16:18 Eosinophils % (Manual) 2.0 % (0.0-4.3) 08/08/18 16:18 Basophils % (Manual) 1.0 % (0.0-1.8) 08/08/18 16:18 Metamyelocytes % 0 % 08/08/18 16:18 Myelocytes % 0 % 08/08/18 16:18 Promyelocytes % 0 % 08/08/18 16:18 Blast Cells % 0 % 08/08/18 16:18 Nucleated RBC % Not Reportable 08/08/18 16:18 Seg Neutrophils # Man 2.3 K/mm3 (1.8-7.7) 08/08/18 16:18 Band Neutrophils # 0.0 K/mm3 08/08/18 16:18 Lymphocytes # (Manual) 0.5 K/mm3 (1.2-5.4) L 08/08/18 16:18 Abs React Lymphs (Man) 0.0 K/mm3 08/08/18 16:18 Monocytes # (Manual) 0.5 K/mm3 (0.0-0.8) 08/08/18 16:18 Eosinophils # (Manual) 0.1 K/mm3 (0.0-0.4) 08/08/18 16:18 Basophils # (Manual) 0.0 K/mm3 (0.0-0.1) 08/08/18 16:18 Metamyelocytes # 0.0 K/mm3 08/08/18 16:18 Myelocytes # 0.0 K/mm3 08/08/18 16:18 Promyelocytes # 0.0 K/mm3 08/08/18 16:18 Blast Cells # 0.0 K/mm3 08/08/18 16:18 WBC Morphology Not Reportable 08/08/18 16:18 Hypersegmented Neuts Not Reportable 08/08/18 16:18 Hyposegmented Neuts Not Reportable 08/08/18 16:18 Hypogranular Neuts Not Reportable 08/08/18 16:18 Smudge Cells Not Reportable 08/08/18 16:18 Toxic Granulation Not Reportable 08/08/18 16:18 Toxic Vacuolation Not Reportable 08/08/18 16:18 Dohle Bodies Not Reportable 08/08/18 16:18 Pelger-Huet Anomaly Not Reportable 08/08/18 16:18 Sheila Rods Not Reportable 08/08/18 16:18 Platelet Estimate Consistent w auto 08/08/18 16:18 Clumped Platelets Not Reportable 08/08/18 16:18 Plt Clumps, EDTA Not Reportable 08/08/18 16:18 Large Platelets Not Reportable 08/08/18 16:18 Giant Platelets Not Reportable 08/08/18 16:18 Platelet Satelliting Not Reportable 08/08/18 16:18 Plt Morphology Comment Not Reportable 08/08/18 16:18 RBC Morphology Not Reportable 08/08/18 16:18 Dimorphic RBCs Not Reportable 08/08/18 16:18 Polychromasia Not Reportable 08/08/18 16:18 Hypochromasia Not Reportable 08/08/18 16:18 Poikilocytosis Not Reportable 08/08/18 16:18 Anisocytosis 1+ 08/08/18 16:18 Microcytosis Not Reportable 08/08/18 16:18 Macrocytosis 1+ 08/08/18 16:18 Spherocytes Not Reportable 08/08/18 16:18 Pappenheimer Bodies Not Reportable 08/08/18 16:18 Sickle Cells Not Reportable 08/08/18 16:18 Target Cells Not Reportable 08/08/18 16:18 Tear Drop Cells Not Reportable 08/08/18 16:18 Ovalocytes Not Reportable 08/08/18 16:18 Helmet Cells Not Reportable 08/08/18 16:18 Ann-Lennox Bodies Not Reportable 08/08/18 16:18 Molena Rings Not Reportable 08/08/18 16:18 Aldair Cells Not Reportable 08/08/18 16:18 Bite Cells Not Reportable 08/08/18 16:18 Crenated Cell Not Reportable 08/08/18 16:18 Elliptocytes Not Reportable 08/08/18 16:18 Acanthocytes (Spur) Not Reportable 08/08/18 16:18 Rouleaux Not Reportable 08/08/18 16:18 Hemoglobin C Crystals Not Reportable 08/08/18 16:18 Schistocytes Not Reportable 08/08/18 16:18 Malaria parasites Not Reportable 08/08/18 16:18 Marin Bodies Not Reportable 08/08/18 16:18 Hem Pathologist Commnt No 08/08/18 16:18 PT 18.8 Sec. (12.2-14.9) H 08/06/18 08:29 INR 1.47 (0.87-1.13) H 08/06/18 08:29 POC ABG pH 7.376 (7.35-7.45) 08/01/18 13:02 POC ABG pCO2 45.6 (35-45) H 08/01/18 13:02 POC ABG pO2 91 (80-105) 08/01/18 13:02 POC ABG HCO3 26.8 (22-26 mml/L) 08/01/18 13:02 POC ABG Total CO2 28 (23-27mmol/L) 08/01/18 13:02 POC ABG O2 Sat 97 08/01/18 13:02 POC ABG Base Excess 2 ((-2) - (+3)mmol/L) 08/01/18 13:02 FiO2 28 % 08/01/18 13:02 Sodium 137 mmol/L (137-145) D 08/08/18 16:18 Potassium 4.9 mmol/L (3.6-5.0) D 08/08/18 16:18 Chloride 106.8 mmol/L (98-107) 08/08/18 16:18 Carbon Dioxide 22 mmol/L (22-30) 08/08/18 16:18 Anion Gap 13 mmol/L 08/08/18 16:18 BUN 12 mg/dL (7-17) 08/08/18 16:18 Creatinine 0.5 mg/dL (0.7-1.2) L 08/08/18 16:18 Estimated GFR > 60 ml/min 08/08/18 16:18 BUN/Creatinine Ratio 24 % 08/08/18 16:18 Glucose 192 mg/dL (65-100) H 08/08/18 16:18 POC Glucose 103 (70-105) 08/10/18 07:29 Lactic Acid 2.60 mmol/L (0.7-2.0) H* 08/02/18 14:30 Calcium 8.4 mg/dL (8.4-10.2) 08/08/18 16:18 Phosphorus 2.20 mg/dL (2.5-4.5) L 08/04/18 13:46 Magnesium 1.80 mg/dL (1.7-2.3) 08/05/18 05:05 Total Bilirubin 2.00 mg/dL (0.1-1.2) H 08/08/18 16:18 Direct Bilirubin 0.8 mg/dL (0-0.2) H 08/03/18 13:23 Indirect Bilirubin 1.7 mg/dL 08/03/18 13:23 AST 69 units/L (5-40) H 08/08/18 16:18 ALT 42 units/L (7-56) 08/08/18 16:18 Alkaline Phosphatase 69 units/L (35-129) 08/08/18 16:18 Ammonia 32.0 umol/L (25-60) 08/07/18 16:54 Total Creatine Kinase 292 units/L (30-135) H 07/31/18 21:36 Troponin T 0.025 ng/mL (0.00-0.029) 07/31/18 21:36 Total Protein 6.2 g/dL (6.3-8.2) L 08/08/18 16:18 Albumin 2.2 g/dL (3.9-5) L 08/08/18 16:18 Albumin/Globulin Ratio 0.6 % 08/08/18 16:18 Prealbumin 0.092 g/L (0.200-0.400) L 08/07/18 20:02 TSH 1.840 mlU/mL (0.270-4.200) 07/31/18 21:36 Urine Color Fabiola (Yellow) 07/31/18 22:36 Urine Turbidity Clear (Clear) 07/31/18 22:36 Urine pH 5.0 (5.0-7.0) 07/31/18 22:36 Ur Specific Opdyke 1.028 (1.003-1.030) 07/31/18 22:36 Urine Protein 100 mg/dl mg/dL (Negative) 07/31/18 22:36 Urine Glucose (UA) Neg mg/dL (Negative) 07/31/18 22:36 Urine Ketones Neg mg/dL (Negative) 07/31/18 22:36 Urine Blood Sm (Negative) 07/31/18 22:36 Urine Nitrite Neg (Negative) 07/31/18 22:36 Urine Bilirubin Neg (Negative) 07/31/18 22:36 Urine Urobilinogen 4.0 mg/dL (<2.0) 07/31/18 22:36 Ur Leukocyte Esterase Mod (Negative) 07/31/18 22:36 Urine WBC (Auto) 118.0 /HPF (0.0-6.0) H 07/31/18 22:36 Urine RBC (Auto) 5.0 /HPF (0.0-6.0) 07/31/18 22:36 U Epithel Cells (Auto) 3.0 /HPF (0-13.0) 07/31/18 22:36 Urine Mucus Few /HPF 07/31/18 22:36 Salicylates < 0.3 mg/dL (2.8-20.0) L 07/31/18 Unknown Urine Opiates Screen Presumptive negative 07/31/18 22:36 Urine Methadone Screen Presumptive negative 07/31/18 22:36 Acetaminophen < 5.0 ug/mL (10.0-30.0) L 07/31/18 21:36 Ur Barbiturates Screen Presumptive negative 07/31/18 22:36 Ur Phencyclidine Scrn Presumptive negative 07/31/18 22:36 Ur Amphetamines Screen Presumptive negative 07/31/18 22:36 U Benzodiazepines Scrn Presumptive negative 07/31/18 22:36 Urine Cocaine Screen Presumptive negative 07/31/18 22:36 U Marijuana (THC) Screen Presumptive negative 07/31/18 22:36 Drugs of Abuse Note Disclamer 07/31/18 22:36 Plasma/Serum Alcohol < 0.01 % (0-0.07) 07/31/18 Unknown Active Medications - Current Medications Current Medications: Generic Name Dose Route Start Last Admin Trade Name Freq PRN Reason Stop Dose Admin Chlordiazepoxide HCl 25 mg 08/07/18 17:00 08/10/18 04:57 Librium PO 25 mg Q12H CONNIE Administration Clonidine HCl 0.2 mg 08/12/18 10:00 Catapres-Tts Patch TD QWEEK CONNIE Dextrose 50 ml 08/01/18 04:36 D50w (25gm) Syringe IV PRN PRN Hypoglycemia Folic Acid 1 mg 08/04/18 14:00 08/10/18 10:22 Folvite PO 1 mg QDAY CONNIE Administration Haloperidol 0.5 mg 08/08/18 12:16 08/08/18 22:24 Haldol PO 0.5 mg Q6H PRN Administration Agitation Potassium Chloride 20 meq/ 1,010 mls @ 75 mls/hr 08/05/18 12:15 08/09/18 13:30 Dextrose/Sodium Chloride IV 75 mls/hr DIRECT CONNIE Administration Lactulose 20 gm 08/08/18 12:00 08/10/18 13:33 Cephulac PO 20 gm Q12H CONNIE Administration Levetiracetam 750 mg 08/08/18 10:00 08/10/18 10:21 Keppra PO 750 mg BID CONNIE Administration Ondansetron HCl 4 mg 08/01/18 01:08 Zofran IV Q4H PRN Nausea And Vomiting Potassium Phos/Sodium Phos 1 each 08/03/18 22:00 08/10/18 10:21 Phos-Nak PO 1 each Q12HR CONNIE Administration Rifaximin 550 mg 08/04/18 14:00 08/10/18 10:21 Xifaxan PO 550 mg BID CONNIE Administration Sodium Chloride 10 ml 08/01/18 10:00 08/10/18 10:22 Sodium Chloride Flush Syringe 10 Ml IV 10 ml BID CONNIE Administration Sodium Chloride 10 ml 08/01/18 01:08 Sodium Chloride Flush Syringe 10 Ml IV PRN PRN LINE FLUSH Thiamine HCl 100 mg 08/04/18 14:00 08/10/18 10:22 Vitamin B-1 PO 100 mg QDAY CONNIE Administration Nutrition/Malnutrition Assess - Dietary Evaluation Nutrition/Malnutrition Findings: Nutrition Notes Start: 08/06/18 10:55 Freq: Status: Active Protocol: Document 08/06/18 10:55 RD (Rec: 08/06/18 11:44 RD [email or web address]) Co-Sign 08/06/18 10:55 OL Nutrition Notes Need for Assessment generated from: LOS Initial or Follow up Brief Note Current Diagnosis Acute Kidney Injury,Sepsis Other Pertinent Diagnosis encephalopathy, UTI, alcoholic liver disease, Tinea cruris Current Diet GI soft Purling Body Weight (kg) 0 Subjective/Other Information RD screen for LOS. Pt was unable to speak, but shook head yes and no. Pt reports appetite is good and she is eating most of her meals. Recorded intakes average 92%. Nutrition Intervention Revisit per MD consult or patient Sign Off request:
[2018-08-11] MEDS: CEPHULAC PO SCH ×2 (00:24→15:21)
[2018-08-11 00:59] LABS: Basophils % (Auto) 1.2 % (0.0-1.8); Eosinophils # (Auto) 0.1 K/mm3 (0.0-0.4); Eosinophils % (Auto) 3.3 % (0.0-4.3); Hematocrit 38.3 % (30.3-42.9); Hemoglobin 13.2 gm/dl (10.1-14.3); Lymphocytes # (Auto) 0.7 K/mm3 (1.2-5.4); Lymphocytes % (Auto) 18.3 % (13.4-35.0); Mean Corpuscular HGB Conc 34 % (30-34); Mean Corpuscular Volume 109 fl (79-97); Monocytes # (Auto) 0.6 K/mm3 (0.0-0.8); Red Cell Distribution Width 14.7 % (13.2-15.2)
[2018-08-11 01:00] LABS: Platelet Count 74 K/mm3 (140-440)
[2018-08-11] MEDS: LIBRIUM PO SCH ×2 (05:25→18:18)
[2018-08-11 05:55] LABS: Hematocrit 39.4 % (30.3-42.9); Hemoglobin 13.5 gm/dl (10.1-14.3); Mean Corpuscular HGB Conc 34 % (30-34); Mean Corpuscular Volume 109 fl (79-97); Red Blood Count 3.63 M/mm3 (3.65-5.03); Red Cell Distribution Width 14.3 % (13.2-15.2)
[2018-08-11 06:08] LABS: BUN/Creatinine Ratio 20; Blood Urea Nitrogen 8 mg/dL (7-17); Calcium 8.5 mg/dL (8.4-10.2); Hemolysis Index 65
[2018-08-11 06:14] LABS: Platelet Count 67 K/mm3 (140-440)
--- NOTE | 2018-08-11 08:25 | Progress Note ---
Assessment and Plan Cultures: Blood culture 07/31/2018 Acinetobacter lwoffii, marin susceptible, 1 of 4 bottles. Blood culture 08/03/2018 no growth today. Assessment: 67 y/o female with history of liver disease due to active ETOH abuse/HCV, previous hepatic encephalopathy, alcohol related dementia, diabetes and seizure disorder; previous E coli UTI; admitted on 07/31/2018 due to AMS. 1) Sepsis: Resolved. Etiology Acinetobacter lwoffi, 1 out of 4 bottles. 2) Acinetobacter lwoffi bacteremia: marin susceptible, from UTI. Repeat cultures show no growth to date. Completed 10 days of cefepime. 3) UTI: Renal US no hydro. UA 118 wbc and moderate LE. Urine culture 07/18/2018 >100K normal skin antoni. History of previous E coli UTI in 2017. 4) Acute on chronic encephalopathy: Improved, from sepsis +/- hepatic encephalopathy. 5) Neutropenia and Thrombocytopenia: likely due to liver cirrhosis. Alcohol can also cause bone marrow depression. Recommendations: -monitor off antibiotics ID is signing off [facility] M: [id number] O:[phone] Subjective Date of service: 08/11/18 Principal diagnosis: hepatic encephalopathy Interval history: Patent seen and examined. Mentation improved, follow simple commands. Boyfriend at bedside. No acute distress, no fevers. Objective - Exam Narrative Exam: Constitutional: Alert, awake. No acute distress Head, Ears, Nose: Normocephalic, atraumatic. External ears, nose normal Eyes: Conjunctivae/corneas clear. No icterus. No ptosis. Neck: Supple, no meningeal signs Oral: no thrush Cardiovascular: S1, S2 normal. Respiratory: Good air entry, clear to auscultation bilaterally GI: Soft, non-tender; bowel sounds normal. No peritoneal signs. No suprapubic or CVA tenderness Musculoskeletal: No pedal edema, no cyanosis. Skin: No rash or abscess, left superficial buttocks wound with some bleeding from patient scratching Hem/Lymphatic: No palpable cervical or supraclavicular nodes. No lymphangitis Psych: Mood ok. Affect good Neurological: Awake, alert. follows simple commands. - Constitutional Vitals: Vital Signs Temp Pulse Resp BP Pulse Ox 97.8 F 69 18 168/98 100 08/11/18 07:20 08/11/18 07:20 08/11/18 07:20 08/11/18 07:20 08/11/18 07:20 Temperature -Last 24 Hours Temperature 97.8 F Temperature 98.5 F Temperature 97.3 F Temperature 98.4 F - Labs CBC & Chem 7: 08/11/18 05:18 08/11/18 05:18 Labs: Abnormal lab results 08/10/18 08/10/18 08/11/18 Range/Units 16:25 21:55 00:30 WBC 3.7 L (4.5-11.0) K/mm3 RBC 3.50 L (3.65-5.03) M/mm3 MCV 109 H (79-97) fl MCH 38 H (28-32) pg Plt Count 74 L (140-440) K/mm3 Buchanan % (Auto) 16.0 H (0.0-7.3) % Lymph # 0.7 L (1.2-5.4) K/mm3 Sodium (137-145) mmol/L Creatinine (0.7-1.2) mg/dL Glucose (65-100) mg/dL POC Glucose 109 H 121 H (70-105) 08/11/18 08/11/18 Range/Units 05:18 05:18 WBC 3.2 L (4.5-11.0) K/mm3 RBC 3.63 L (3.65-5.03) M/mm3 MCV 109 H (79-97) fl MCH 37 H (28-32) pg Plt Count 67 L (140-440) K/mm3 Buchanan % (Auto) (0.0-7.3) % Lymph # (1.2-5.4) K/mm3 Sodium 135 L (137-145) mmol/L Creatinine 0.4 L (0.7-1.2) mg/dL Glucose 102 H (65-100) mg/dL POC Glucose (70-105)
[2018-08-11] MEDS: PHOS-NAK PO SCH ×2 (10:14→22:50)
[2018-08-11] MEDS: VITAMIN B-1 PO SCH (10:14)
[2018-08-11] MEDS: KEPPRA PO SCH ×2 (10:14→22:49)
[2018-08-11] MEDS: FOLVITE PO SCH (10:14)
[2018-08-11] MEDS: XIFAXAN PO SCH ×2 (10:14→22:49)
[2018-08-11] MEDS: SODIUM CHLORIDE FLUSH SYRINGE 10 ML IV SCH ×2 (10:15→22:50)
--- NOTE | 2018-08-11 15:12 | Progress Note ---
Assessment and Plan Assessment and plan: Mrs. Jones is a 67 yo female with hx of alcoholism, diabetes, seizure disorder, hepatic encephalopathy, alcohol related dementia, Hepatitis C, alcoholic liver disease who presents with altered mental status. Roommate reported to EMS that patient has been sitting on the couch in her own feces for the past 3 days without moving. In 2017, Mrs. Jones had a prolonged ICU course including intubation, tracheostomy, hemodialysis for status epilepticus, gram negative sepisis, hepatic encephalopathy. According to male friend, her last drink of alcohol was 4-5 days ago before admission. She does not take any of her prescribed medications. She recently was discharged from a [place] [facility] 4-5 months ago. Her ammonia level was 166 on admission, she was placed on lactulose, consulted GI. Ammonia level trended down, blood cx grew Gm neg bacteremia - repeat blood cx negative. ID following, PT consulted for discharge clearance. Acute Hepatic encephalopathy, improving - Continue lactulose and xifaxane, Monitor LFT, ammonia level improved - goal for 2-3 BM daily Sepsis with UTI, bacteremia and lactic acidosis Urinary tract infection Bacteremia with Gram negative rods - IV antibiotics (cefepime), IV fluid, follow final cx - repeat blood cx negative, ID following Elevated INR, s/p vit K, cont to monitor Diabetes type 2 - Monitor BG with SSI, Seizures disorder - cont keppra Hypernatremia, Resolved Hypokalemia, Resolved Hepatitis C, supportive care - GI consulted, started on xifaxane, monitor LFT for now thrombocytopenia, likely from CLD, cont to monitor Dementia, by history, cont to monitor Alcohol abuse, cont folate, thiamin, watch for withdrawal - on librium tapering dose Stage 2 sacral wound/skin excoriation, POA - wound care following DVT prophylaxis, SCD For SNF placement History Interval history: Gen weakness Hospitalist Physical - Physical exam Narrative exam: GEN: Not in acute distress, lying in bed, obese HEENT: Normocephalic, atraumatic, Neck: supple, No JVD heart: S1 and S2 reg, no murmurs, rubs or gallop Lungs: Clear to auscultation bilaterally, no wheeze Abd:soft, non tender, non distended, normal bowel sounds Ext: No edema,no clubbing, no cyanosis, Neuro:Awake,alert, oriented to person, place, not to time. - Constitutional Vitals: Temp Pulse Resp BP Pulse Ox 97.6 F 69 18 168/86 100 08/11/18 13:49 08/11/18 13:49 08/11/18 13:49 08/11/18 13:51 08/11/18 13:49 Results - Labs CBC & Chem 7: 08/11/18 05:18 08/11/18 05:18 Labs: Laboratory Last Values WBC 3.2 K/mm3 (4.5-11.0) L 08/11/18 05:18 RBC 3.63 M/mm3 (3.65-5.03) L 08/11/18 05:18 Hgb 13.5 gm/dl (10.1-14.3) 08/11/18 05:18 Hct 39.4 % (30.3-42.9) 08/11/18 05:18 MCV 109 fl (79-97) H 08/11/18 05:18 MCH 37 pg (28-32) H 08/11/18 05:18 MCHC 34 % (30-34) 08/11/18 05:18 RDW 14.3 % (13.2-15.2) 08/11/18 05:18 Plt Count 67 K/mm3 (140-440) L 08/11/18 05:18 Lymph % (Auto) 18.3 % (13.4-35.0) 08/11/18 00:30 [place] % (Auto) 16.0 % (0.0-7.3) H 08/11/18 00:30 Eos % (Auto) 3.3 % (0.0-4.3) 08/11/18 00:30 Baso % (Auto) 1.2 % (0.0-1.8) 08/11/18 00:30 Lymph # 0.7 K/mm3 (1.2-5.4) L 08/11/18 00:30 [place] # 0.6 K/mm3 (0.0-0.8) 08/11/18 00:30 Eos # 0.1 K/mm3 (0.0-0.4) 08/11/18 00:30 Baso # 0.0 K/mm3 (0.0-0.1) 08/11/18 00:30 Add Manual Diff Complete 08/08/18 16:18 Total Counted 100 08/08/18 16:18 Seg Neutrophils % 61.2 % (40.0-70.0) 08/11/18 00:30 Seg Neuts % (Manual) 67.0 % (40.0-70.0) 08/08/18 16:18 Band Neutrophils % 1.0 % 08/08/18 16:18 Lymphocytes % (Manual) 15.0 % (13.4-35.0) 08/08/18 16:18 Reactive Lymphs % (Man) 0 % 08/08/18 16:18 Monocytes % (Manual) 14.0 % (0.0-7.3) H 08/08/18 16:18 Eosinophils % (Manual) 2.0 % (0.0-4.3) 08/08/18 16:18 Basophils % (Manual) 1.0 % (0.0-1.8) 08/08/18 16:18 Metamyelocytes % 0 % 08/08/18 16:18 Myelocytes % 0 % 08/08/18 16:18 Promyelocytes % 0 % 08/08/18 16:18 Blast Cells % 0 % 08/08/18 16:18 Nucleated RBC % Not Reportable 08/08/18 16:18 Seg Neutrophils # 2.3 K/mm3 (1.8-7.7) 08/11/18 00:30 Seg Neutrophils # Man 2.3 K/mm3 (1.8-7.7) 08/08/18 16:18 Band Neutrophils # 0.0 K/mm3 08/08/18 16:18 Lymphocytes # (Manual) 0.5 K/mm3 (1.2-5.4) L 08/08/18 16:18 Abs React Lymphs (Man) 0.0 K/mm3 08/08/18 16:18 Monocytes # (Manual) 0.5 K/mm3 (0.0-0.8) 08/08/18 16:18 Eosinophils # (Manual) 0.1 K/mm3 (0.0-0.4) 08/08/18 16:18 Basophils # (Manual) 0.0 K/mm3 (0.0-0.1) 08/08/18 16:18 Metamyelocytes # 0.0 K/mm3 08/08/18 16:18 Myelocytes # 0.0 K/mm3 08/08/18 16:18 Promyelocytes # 0.0 K/mm3 08/08/18 16:18 Blast Cells # 0.0 K/mm3 08/08/18 16:18 WBC Morphology Not Reportable 08/08/18 16:18 Hypersegmented Neuts Not Reportable 08/08/18 16:18 Hyposegmented Neuts Not Reportable 08/08/18 16:18 Hypogranular Neuts Not Reportable 08/08/18 16:18 Smudge Cells Not Reportable 08/08/18 16:18 Toxic Granulation Not Reportable 08/08/18 16:18 Toxic Vacuolation Not Reportable 08/08/18 16:18 Dohle Bodies Not Reportable 08/08/18 16:18 Pelger-Huet Anomaly Not Reportable 08/08/18 16:18 Sheila Rods Not Reportable 08/08/18 16:18 Platelet Estimate Consistent w auto 08/08/18 16:18 Clumped Platelets Not Reportable 08/08/18 16:18 Plt Clumps, EDTA Not Reportable 08/08/18 16:18 Large Platelets Not Reportable 08/08/18 16:18 Giant Platelets Not Reportable 08/08/18 16:18 Platelet Satelliting Not Reportable 08/08/18 16:18 Plt Morphology Comment Not Reportable 08/08/18 16:18 RBC Morphology Not Reportable 08/08/18 16:18 Dimorphic RBCs Not Reportable 08/08/18 16:18 Polychromasia Not Reportable 08/08/18 16:18 Hypochromasia Not Reportable 08/08/18 16:18 Poikilocytosis Not Reportable 08/08/18 16:18 Anisocytosis 1+ 08/08/18 16:18 Microcytosis Not Reportable 08/08/18 16:18 Macrocytosis 1+ 08/08/18 16:18 Spherocytes Not Reportable 08/08/18 16:18 Pappenheimer Bodies Not Reportable 08/08/18 16:18 Sickle Cells Not Reportable 08/08/18 16:18 Target Cells Not Reportable 08/08/18 16:18 Tear Drop Cells Not Reportable 08/08/18 16:18 Ovalocytes Not Reportable 08/08/18 16:18 Helmet Cells Not Reportable 08/08/18 16:18 [place] Bodies Not Reportable 08/08/18 16:18 [place] Rings Not Reportable 08/08/18 16:18 [place] Cells Not Reportable 08/08/18 16:18 Bite Cells Not Reportable 08/08/18 16:18 Crenated Cell Not Reportable 08/08/18 16:18 Elliptocytes Not Reportable 08/08/18 16:18 Acanthocytes (Spur) Not Reportable 08/08/18 16:18 Rouleaux Not Reportable 08/08/18 16:18 Hemoglobin C Crystals Not Reportable 08/08/18 16:18 Schistocytes Not Reportable 08/08/18 16:18 Malaria parasites Not Reportable 08/08/18 16:18 [place] Bodies Not Reportable 08/08/18 16:18 Hem Pathologist Commnt No 08/08/18 16:18 PT 18.8 Sec. (12.2-14.9) H 08/06/18 08:29 INR 1.47 (0.87-1.13) H 08/06/18 08:29 POC ABG pH 7.376 (7.35-7.45) 08/01/18 13:02 POC ABG pCO2 45.6 (35-45) H 08/01/18 13:02 POC ABG pO2 91 (80-105) 08/01/18 13:02 POC ABG HCO3 26.8 (22-26 mml/L) 08/01/18 13:02 POC ABG Total CO2 28 (23-27mmol/L) 08/01/18 13:02 POC ABG O2 Sat 97 08/01/18 13:02 POC ABG Base Excess 2 ((-2) - (+3)mmol/L) 08/01/18 13:02 FiO2 28 % 08/01/18 13:02 Sodium 135 mmol/L (137-145) L 08/11/18 05:18 Potassium 4.5 mmol/L (3.6-5.0) 08/11/18 05:18 Chloride 104.6 mmol/L (98-107) 08/11/18 05:18 Carbon Dioxide 23 mmol/L (22-30) 08/11/18 05:18 Anion Gap 12 mmol/L 08/11/18 05:18 BUN 8 mg/dL (7-17) 08/11/18 05:18 Creatinine 0.4 mg/dL (0.7-1.2) L 08/11/18 05:18 Estimated GFR > 60 ml/min 08/11/18 05:18 BUN/Creatinine Ratio 20 % 08/11/18 05:18 Glucose 102 mg/dL (65-100) H 08/11/18 05:18 POC Glucose 126 (70-105) H 08/11/18 11:06 Lactic Acid 2.60 mmol/L (0.7-2.0) H* 08/02/18 14:30 Calcium 8.5 mg/dL (8.4-10.2) 08/11/18 05:18 Phosphorus 2.20 mg/dL (2.5-4.5) L 08/04/18 13:46 Magnesium 1.80 mg/dL (1.7-2.3) 08/05/18 05:05 Total Bilirubin 2.00 mg/dL (0.1-1.2) H 08/08/18 16:18 Direct Bilirubin 0.8 mg/dL (0-0.2) H 08/03/18 13:23 Indirect Bilirubin 1.7 mg/dL 08/03/18 13:23 AST 69 units/L (5-40) H 08/08/18 16:18 ALT 42 units/L (7-56) 08/08/18 16:18 Alkaline Phosphatase 69 units/L (35-129) 08/08/18 16:18 Ammonia 32.0 umol/L (25-60) 08/07/18 16:54 Total Creatine Kinase 292 units/L (30-135) H 07/31/18 21:36 Troponin T 0.025 ng/mL (0.00-0.029) 07/31/18 21:36 Total Protein 6.2 g/dL (6.3-8.2) L 08/08/18 16:18 Albumin 2.2 g/dL (3.9-5) L 08/08/18 16:18 Albumin/Globulin Ratio 0.6 % 08/08/18 16:18 Prealbumin 0.092 g/L (0.200-0.400) L 08/07/18 20:02 TSH 1.840 mlU/mL (0.270-4.200) 07/31/18 21:36 Urine Color [place] (Yellow) 07/31/18 22:36 Urine Turbidity Clear (Clear) 07/31/18 22:36 Urine pH 5.0 (5.0-7.0) 07/31/18 22:36 Ur Specific [place] 1.028 (1.003-1.030) 07/31/18 22:36 Urine Protein 100 mg/dl mg/dL (Negative) 07/31/18 22:36 Urine Glucose (UA) Neg mg/dL (Negative) 07/31/18 22:36 Urine Ketones Neg mg/dL (Negative) 07/31/18 22:36 Urine Blood Sm (Negative) 07/31/18 22:36 Urine Nitrite Neg (Negative) 07/31/18 22:36 Urine Bilirubin Neg (Negative) 07/31/18 22:36 Urine Urobilinogen 4.0 mg/dL (<2.0) 07/31/18 22:36 Ur Leukocyte Esterase Mod (Negative) 07/31/18 22:36 Urine WBC (Auto) 118.0 /HPF (0.0-6.0) H 07/31/18 22:36 Urine RBC (Auto) 5.0 /HPF (0.0-6.0) 07/31/18 22:36 U Epithel Cells (Auto) 3.0 /HPF (0-13.0) 07/31/18 22:36 Urine Mucus Few /HPF 07/31/18 22:36 Salicylates < 0.3 mg/dL (2.8-20.0) L 07/31/18 Unknown Urine Opiates Screen Presumptive negative 07/31/18 22:36 Urine Methadone Screen Presumptive negative 07/31/18 22:36 Acetaminophen < 5.0 ug/mL (10.0-30.0) L 07/31/18 21:36 Ur Barbiturates Screen Presumptive negative 07/31/18 22:36 Ur Phencyclidine Scrn Presumptive negative 07/31/18 22:36 Ur Amphetamines Screen Presumptive negative 07/31/18 22:36 U Benzodiazepines Scrn Presumptive negative 07/31/18 22:36 Urine Cocaine Screen Presumptive negative 07/31/18 22:36 U Marijuana (THC) Screen Presumptive negative 07/31/18 22:36 Drugs of Abuse Note Disclamer 07/31/18 22:36 Plasma/Serum Alcohol < 0.01 % (0-0.07) 07/31/18 Unknown Active Medications - Current Medications Current Medications: Generic Name Dose Route Start Last Admin Trade Name Freq PRN Reason Stop Dose Admin Chlordiazepoxide HCl 25 mg 08/07/18 17:00 08/11/18 05:25 Librium PO 25 mg Q12H CONNIE Administration Clonidine HCl 0.2 mg 08/12/18 10:00 Catapres-Tts Patch TD QWEEK CONNIE Dextrose 50 ml 08/01/18 04:36 D50w (25gm) Syringe IV PRN PRN Hypoglycemia Folic Acid 1 mg 08/04/18 14:00 08/11/18 10:14 Folvite PO 1 mg QDAY CONNIE Administration Haloperidol 0.5 mg 08/08/18 12:16 08/08/18 22:24 Haldol PO 0.5 mg Q6H PRN Administration Agitation Lactulose 20 gm 08/08/18 12:00 08/11/18 00:24 Cephulac PO 20 gm Q12H CONNIE Administration Levetiracetam 750 mg 08/08/18 10:00 08/11/18 10:14 Keppra PO 750 mg BID CONNIE Administration Ondansetron HCl 4 mg 08/01/18 01:08 Zofran IV Q4H PRN Nausea And Vomiting Potassium Phos/Sodium Phos 1 each 08/03/18 22:00 08/11/18 10:14 Phos-Nak PO 1 each Q12HR CONNIE Administration Rifaximin 550 mg 08/04/18 14:00 08/11/18 10:14 Xifaxan PO 550 mg BID CONNIE Administration Sodium Chloride 10 ml 08/01/18 10:00 08/11/18 10:15 Sodium Chloride Flush Syringe 10 Ml IV 10 ml BID CONNIE Administration Sodium Chloride 10 ml 08/01/18 01:08 Sodium Chloride Flush Syringe 10 Ml IV PRN PRN LINE FLUSH Thiamine HCl 100 mg 08/04/18 14:00 08/11/18 10:14 Vitamin B-1 PO 100 mg QDAY CONNIE Administration Nutrition/Malnutrition Assess - Dietary Evaluation Nutrition/Malnutrition Findings: Nutrition Notes Start: 08/06/18 10:55 Freq: Status: Active Protocol: Document 08/06/18 10:55 RD (Rec: 08/06/18 11:44 RD [email or web address]) Co-Sign 08/06/18 10:55 OL Nutrition Notes Need for Assessment generated from: LOS Initial or Follow up Brief Note Current Diagnosis Acute Kidney Injury,Sepsis Other Pertinent Diagnosis encephalopathy, UTI, alcoholic liver disease, Tinea cruris Current Diet GI soft [place] Body Weight (kg) 0 Subjective/Other Information RD screen for LOS. Pt was unable to speak, but shook head yes and no. Pt reports appetite is good and she is eating most of her meals. Recorded intakes average 92%. Nutrition Intervention Revisit per MD consult or patient Sign Off request:
[2018-08-12] MEDS: CEPHULAC PO SCH ×2 (00:42→12:09)
[2018-08-12] MEDS: LIBRIUM PO SCH (05:54)
[2018-08-12] MEDS ORDERED: CATAPRES-TTS PATCH TD SCH (10:00)
[2018-08-12] MEDS: XIFAXAN PO SCH (10:34)
[2018-08-12] MEDS: VITAMIN B-1 PO SCH (10:35)
[2018-08-12] MEDS: FOLVITE PO SCH (10:35)
[2018-08-12] MEDS: PHOS-NAK PO SCH (10:35)
[2018-08-12] MEDS: SODIUM CHLORIDE FLUSH SYRINGE 10 ML IV SCH (10:35)
[2018-08-12] MEDS: KEPPRA PO SCH (10:35)
[2018-08-12] MEDS ORDERED: APRESOLINE IV PRN (12:00)
[2018-08-12] MEDS ORDERED: NORVASC PO SCH (12:00)
--- NOTE | 2018-08-12 13:52 | Discharge Summary ---
Providers - Providers Date of Admission: 08/01/18 01:08 Date of discharge: 08/12/18 Attending physician: SAGAR CHOPRA 08/03/18 14:21 Consult to Wound/ET Nurse [CONS] Routine Reason For Exam: wound eval. Bilateral sacral wound 08/03/18 16:17 Consult to Physician [CONS] Routine Comment: Consulting Provider: AMBER LEZAMA Physician Instructions: Reason For Exam: hepatic encephalopathy 08/06/18 10:16 Physical Therapy Evaluation and Treat [CONS] Routine Comment: Reason For Exam: placement 08/06/18 11:14 Consult to Physician [CONS] Routine Comment: Consulting Provider: DIONNA ANNE Physician Instructions: Reason For Exam: gm negative bacteremia 08/10/18 16:22 Physical Therapy Evaluation and Treat [CONS] Routine Comment: Reason For Exam: Gen weakness Primary care physician: CASSIDY CASTILLO Hospitalization Condition: Fair Hospital course: Mrs. Jones is a 67 yo female with hx of alcoholism, diabetes, seizure disorder, hepatic encephalopathy, alcohol related dementia, Hepatitis C, alcoholic liver disease who presented with altered mental status. Her room mate stated patient has been sitting on the couch in her own feces for the past 3 days without moving. According to friend, her last drink of alcohol was 4-5 days before admission. She does not take any of her prescribed medications. Her ammonia level was 166 on admission, she was placed on lactulose, consulted GI. Ammonia level trended down, blood culture grew Gram neg bacteremia. She was diagnosed with Sepsis due to UTI , treated with Cefepime and Vancomycin. She improved slowly and was discharged to SNF on 08/12/18. Total time spent on discharge , 32 mins Disposition: DC/TX-03 SNF W [facility] CERT - Discharge Diagnoses (1) Dementia Status: Acute (2) Acute hepatic encephalopathy Status: Acute (3) Alcoholic liver disease Status: Acute (4) Hypernatremia Status: Acute (5) Seizure disorder Status: Acute (6) Sepsis Status: Acute (7) Thrombocytopenia Status: Acute (8) UTI (urinary tract infection) Status: Acute (9) Diabetes mellitus type 2 in obese Status: Acute (10) Hepatitis C virus infection Status: Acute Core Measure Documentation - Palliative Care Palliative Care/ Comfort Measures: Not Applicable - Core Measures Any of the following diagnoses?: none Exam - Constitutional Vitals: Temp Pulse Resp BP Pulse Ox 97.8 F 78 18 158/87 100 08/12/18 07:28 08/12/18 12:09 08/12/18 07:28 08/12/18 12:09 08/12/18 11:59 Plan Activity: advance as tolerated Diet: low fat, low cholesterol, low salt Additional Instructions: 1.Follow up with Physician at [facility] in 2-3 days. 2.Rec heck ammonia level Thursday08/16/18. 3.Follow up with Dr. Ernst, GI in 1 week Follow up with: CASSIDY CASTILLO MD [Primary Care Provider] - 7 Days Prescriptions: Lactulose [Cephulac] 20 gm PO Q12H #1 bottle Folic Acid [Folvite] 1 mg PO QDAY #30 tablet Haloperidol [Haldol] 0.5 mg PO Q6H PRN #30 tablet PRN Reason: Agitation chlordiazePOXIDE [Librium] 25 mg PO DAILY #3 capsule amLODIPine [Norvasc] 5 mg PO QDAY #30 tablet Thiamine [Vitamin B-1] 100 mg PO QDAY #30 tablet Rifaximin [Xifaxan] 550 mg PO BID #60 tablet
[2018-08-12 14:01] VITALS: BP 130/83
== END 2018-08-12 15:22 | DRG 871 ==
LOC: ED 20:35 → IMCU 08-01 01:08 → 2B-ACE 08-04 20:50
PROVIDERS: ADMIT Internal Medicine; ATTEND Internal Medicine
PROC: 4A033R1 Measurement of Arterial Saturation, Peripheral, Percutaneous Approach (ICD-10-PCS; principal; 2018-08-01)
DX: A41.59 Other Gram-negative sepsis (principal); K72.00 Acute and subacute hepatic failure without coma; G93.41 Metabolic encephalopathy; N39.0 Urinary tract infection, site not specified; E87.0 Hyperosmolality and hypernatremia; N17.9 Acute kidney failure, unspecified; E87.6 Hypokalemia; K70.10 Alcoholic hepatitis without ascites; G40.909 Epilepsy, unspecified, not intractable, without status epilepticus; E11.9 Type 2 diabetes mellitus without complications; F03.90 Unspecified dementia, unspecified severity, without behavioral disturbance, psychotic disturbance, mood disturbance, and anxiety; B35.6 Tinea cruris; D69.6 Thrombocytopenia, unspecified; F10.10 Alcohol abuse, uncomplicated; K70.30 Alcoholic cirrhosis of liver without ascites; K76.0 Fatty (change of) liver, not elsewhere classified; K80.80 Other cholelithiasis without obstruction; D70.9 Neutropenia, unspecified; Z93.0 Tracheostomy status
CPT/HCPCS: 36415; 36600; 70450; 71045; 74018; 76700; 80048; 80053; 80076; 80307; 80320; 81001; 82140; 82550; 82803; 82962; 83735; 84100; 84134; 84443; 84484; 85007; 85014; 85018; 85025; 85027; 85610; 87040; 87076; 87086; 87186; 93005; 93010; G0378; G0480; J0360; J0692; J1630; J1953; J2060; J3370; J3430; J3475; J3480; J7030; J7040; J7050

== ENCOUNTER 2019-02-06 10:54 | Inpatient (IN) | payer MEDICARE ==
[2019-02-06] MEDS ORDERED: ACETAMINOPHEN 650 MG RECT SUPP PR ONE ×2 (11:18→11:22)
[2019-02-06] MEDS ORDERED: SODIUM CHLORIDE 0.9% 1000 ML 1,000 ML IV ONE ×2 (11:24→12:52)
--- NOTE | 2019-02-06 11:30 | Emergency Department Report ---
HPI - General Chief Complaint: Altered Mental Status Time Seen by Provider: 02/06/19 11:14 - HPI HPI: Room 23 The patient is a 68-year-old female presenting with a chief complaint of altered mental status. The patient is a [facility] resident at [facility] the patient is normally interactive with the nurses although nonverbal but her interaction has decreased over the past 3 days. Staff also reports the patient is not eating or drinking over the past 3 days. Patient was found to be febrile to 102.3F by EMS. The patient is nonverbal and does not answer questions. The patient will open her eyes with tactile stimulation Location: [See above] Duration: [See above] Quality: [See above] Severity: [See above] Timing: [See above] Context: [See above] Modifying factors: [See above] Associated signs and symptoms: [see above] ED Past Medical Hx - Past Medical History Hx Renal Disease: Yes Hx Seizures: Yes Hx Kidney Stones: Yes Hx Asthma: Yes Hx COPD: Yes Hx Dementia: Yes Additional medical history: alcoholism - Family History Family history: no significant - Social History Smoking Status: Unknown if ever smoked Substance Use Type: None - Medications Home Medications: Home Medications Medication Instructions Recorded Confirmed Last Taken Type Folic Acid [Folvite] 1 mg PO QDAY #30 tablet 08/12/18 Unknown Rx Haloperidol [Haldol] 0.5 mg PO Q6H PRN #30 tablet 08/12/18 Unknown Rx Lactulose [Cephulac] 20 gm PO Q12H #1 bottle 08/12/18 Unknown Rx Rifaximin [Xifaxan] 550 mg PO BID #60 tablet 08/12/18 Unknown Rx Thiamine [Vitamin B-1] 100 mg PO QDAY #30 tablet 08/12/18 Unknown Rx amLODIPine [Norvasc] 5 mg PO QDAY #30 tablet 08/12/18 Unknown Rx chlordiazePOXIDE [Librium] 25 mg PO DAILY #3 capsule 08/12/18 Unknown Rx ED Review of Systems ROS: Stated complaint: SEPSIS Other details as noted in HPI Comment: Unobtainable due to pts medical conditions Physical Exam - Physical Exam Physical Exam: GENERAL: The patient is well-developed well-nourished elderly female lying on stretcher not appearing to be in acute distress. Patient opens eyes with tactile stimuli but is nonverbal HEENT: Normocephalic. Atraumatic. Extraocular motions are intact. Patient has tried appearing lips NECK: Supple. Trachea midline CHEST/LUNGS: Clear to auscultation. There is no respiratory distress noted. HEART/CARDIOVASCULAR: Regular. There is tachycardia. There is no gallop rub or murmur. ABDOMEN: Abdomen is soft, nontender. Patient has normal bowel sounds. There is no abdominal distention. SKIN: There is no rash. There is no edema. There is no diaphoresis. MUSCULOSKELETAL: There is no evidence of acute injury. ED Medical Decision Making - Lab Data Result diagrams: 02/06/19 11:50 02/06/19 12:45 Laboratory Tests 02/06/19 02/06/19 02/06/19 11:50 11:50 11:50 PT 15.7 H INR 1.28 H APTT Not Reportable Sodium 164 H* Potassium 5.7 H Chloride 127.7 H Carbon Dioxide 20 L Anion Gap 22 BUN 70 H Creatinine 2.8 H Estimated GFR 20 BUN/Creatinine Ratio 25 Glucose 75 Lactic Acid 3.10 H* Calcium 9.4 Magnesium 2.20 Total Bilirubin 1.50 H AST 211 H ALT 252 H Alkaline Phosphatase 246 H Ammonia Total Creatine Kinase 1708 H CK-MB (CK-2) 9.5 H CK-MB (CK-2) Rel Index 0.5 Troponin T 0.114 H* Total Protein 7.0 Albumin 2.4 L Albumin/Globulin Ratio 0.5 Lipase 24 TSH Free T4 Urine Color Urine Turbidity Urine pH Ur Specific [place] Urine Protein Urine Glucose (UA) Urine Ketones Urine Blood Urine Nitrite Urine Bilirubin Urine Urobilinogen Ur Leukocyte Esterase Urine WBC (Auto) Urine RBC (Auto) U Epithel Cells (Auto) Urine Bacteria (Auto) Ur Renal Epithelial Cell Urine Mucus 02/06/19 02/06/19 02/06/19 11:50 11:50 Unknown PT INR APTT Sodium Potassium Chloride Carbon Dioxide Anion Gap BUN Creatinine Estimated GFR BUN/Creatinine Ratio Glucose Lactic Acid Calcium Magnesium Total Bilirubin AST ALT Alkaline Phosphatase Ammonia 65.0 H Total Creatine Kinase CK-MB (CK-2) CK-MB (CK-2) Rel Index Troponin T Total Protein Albumin Albumin/Globulin Ratio Lipase TSH 8.460 H Free T4 0.86 Urine Color Fabiola Urine Turbidity Slightly-cloudy Urine pH 8.0 H Ur Specific [place] 1.016 Urine Protein <15 mg/dl Urine Glucose (UA) Neg Urine Ketones Neg Urine Blood Sm Urine Nitrite Neg Urine Bilirubin Neg Urine Urobilinogen 4.0 Ur Leukocyte Esterase Lg Urine WBC (Auto) 58.0 H Urine RBC (Auto) 3.0 U Epithel Cells (Auto) 3.0 Urine Bacteria (Auto) 2+ Ur Renal Epithelial Cell 2 Urine Mucus Few - EKG Data -: EKG Interpreted by Me EKG shows normal: sinus rhythm Rate: tachycardia (104 bpm) - EKG Data When compared to previous EKG there are: previous EKG unavailable Interpretation: other (no ischemic changes seen) - Radiology Data Radiology results: pending (CT head (patient would not sit still for CT imaging)), report reviewed (chest x-ray, CT head), image reviewed (chest x-ray, CT head) interpreted by me: Chest x-ray-right lower lobe haziness. No pneumothorax [facility] [address] [place] [address] XRay Report Signed Patient: FRIDA KIMBLE MR#: [id number] : 1950 Acct:[id number] Age/Sex: 68 / F ADM Date: 02/06/19 Loc: ED Attending Dr: Ordering Physician: DIANA ALVAREZ MD Date of Service: 02/06/19 Procedure(s): XR chest 1V ap Accession Number(s): [id number] cc: DIANA ALVAREZ MD Fluoro Time In Minutes: CHEST 1 VIEW INDICATION / CLINICAL INFORMATION: fever, altered mental status. COMPARISON: 07/31/2018 FINDINGS: SUPPORT DEVICES: None. HEART / MEDIASTINUM: Heart size is normal. The thoracic aorta is tortuous. LUNGS / PLEURA: Homogeneous opacity is seen in the right lower hemithorax, findings could represent layering of pleural effusion, atelectasis or developing airspace disease. No pneumothorax. ADDITIONAL FINDINGS: No significant additional findings. IMPRESSION: 1. Opacity in the right lower hemithorax, layering pleural effusion versus atelectasis or airspace disease. Signer Name: Mayur Delatorre MD Signed: 02/06/2019 12:30 PM Workstation Name: [id number] Transcribed By: MARISOL Dictated By: Mayur Delatorre MD Electronically Authenticated By: Mayur Delatorre MD Signed Date/Time: 02/06/19 1230 DD/ 1228 TD/TT: [facility] [address] [place] [address] Cat Scan Report Signed Patient: FRIDA KIMBLE MR#: [id number] : 1950 Acct:[id number] Age/Sex: 68 / F ADM Date: 02/06/19 Loc: 4A [id number]: ENEDINA BENNETT DO Ordering Physician: DIANA ALVAREZ MD Date of Service: 02/06/19 Procedure(s): CT head/brain wo con Accession Number(s): [id number] cc: DIANA ALVAREZ MD CT head/brain wo con INDICATION / CLINICAL INFORMATION: 68 years Female; altered mental status. TECHNIQUE: Routine CT head without contrast. All CT scans at this location are performed using CT dose reduction for ALARA by means of automated exposure control. COMPARISON: Prior - 07/31/2018 FINDINGS: BRAIN / INTRACRANIAL CONTENTS: Small, presumed calcified meningioma seen along the inner table of the squamosal portion of the left temporal bone. No associated mass effect. This finding measures 9 mm in maximum dimension. This is unchanged from prior. Otherwise, acute hemorrhage, mass effect, midline shift, hydrocephalus, or acute, large territorial infarct. Mild to moderate cerebral and cerebellar atrophy. There are mild areas of decreased attenuation in the white matter of the cerebral hemispheres. These are nonspecific findings and may be related to microangiopathy (hypertension, diabetes, atherosclerosis), given the patient's age. It might be difficult to evaluate for small areas of ischemia without diffusion imaging by MRI. CRANIOCERVICAL JUNCTION: No significant abnormality. ORBITS: No significant abnormality of visualized orbits. SINUSES / MASTOIDS: Minimal mucosal thickening seen in the right mastoids. ADDITIONAL FINDINGS: No significant atherosclerotic disease appreciated. IMPRESSION: 1. No focal mass, hemorrhage, hydrocephalus, or acute, large territorial infar ct. Signer Name: Mio Figueroa MD, III Signed: 02/06/2019 2:38 PM Workstation Name: [id number] Transcribed By: HR Dictated By: Mio Figueroa MD Electronically Authenticated By: Mio Figueroa MD Signed Date/Time: 02/06/19 1438 DD/ 1422 TD/TT: - Differential Diagnosis sepsis, hyperammonemia, dehydration, ICH Critical care attestation.: If time is entered above; I have spent that time in minutes in the direct care of this critically ill patient, excluding procedure time. ED Disposition Clinical Impression: Elevated troponin, Acute renal failure, Dehydration, Rhabdomyolysis, Hepatic encephalopathy, Hyperkalemia, Pneumonia, UTI (urinary tract infection) Disposition: OP ADMIT IP TO THIS HOSP Is pt being admited?: Yes Does the pt Need Aspirin: No Condition: Fair Instructions: Bacterial Pneumonia (ED) Referrals: ENEDINA BENNETT DO [Primary Care Provider] - 3-5 Days Time of Disposition: 13:01 (Dr Bennett paged)
[2019-02-06 12:24] LABS: Bacteria,Urine 2+ /HPF (Negative); Bilirubin,Urine NEG (Negative); Blood,Urine SM (Negative); Color,Urine Amber (Yellow); Mucus,Urine FEW /HPF; Protein,Urine <15 mg/dL mg/dL (Negative); Renal Epithelial Cells,Urine 2 /LPF
[2019-02-06 12:33] LABS: INR 1.28 (0.87-1.13)
--- NOTE | 2019-02-06 12:34 | XRay Report ---
CHEST 1 VIEW INDICATION / CLINICAL INFORMATION: fever, altered mental status. COMPARISON: 07/31/2018 FINDINGS: SUPPORT DEVICES: None. HEART / MEDIASTINUM: Heart size is normal. The thoracic aorta is tortuous. LUNGS / PLEURA: Homogeneous opacity is seen in the right lower hemithorax, findings could represent l ayering of pleural effusion, atelectasis or developing airspace disease. No pneumothorax. ADDITIONAL FINDINGS: No significant additional findings. IMPRESSION: 1. Opacity in the right lower hemithorax, layering pleural effusion versus atelectasis or airspace di sease. Signer Name: Mayur Delatorre MD Signed: 02/06/2019 12:30 PM Workstation Name: [id number]
[2019-02-06] MEDS ORDERED: cefTRIAXone/NS 1 GM/50 ML 1 GM/50 ML BAG IV ONE ×2 (12:36→13:34)
[2019-02-06 12:45] LABS: Creatine Kinase MB 9.5 ng/mL (0.0-4.0)
[2019-02-06 12:46] LABS: Albumin 2.4 g/dL (3.9-5); Calcium 9.4 mg/dL (8.4-10.2)
[2019-02-06 12:52] LABS: Free T4 (Free Thyroxine) 0.86 ng/dL (0.76-1.46)
[2019-02-06] MEDS ORDERED: AZITHROMYCIN 500 MG in SODIUM CHLORIDE 0.9% 250ML 250 ML IV ONE (13:00)
[2019-02-06 13:03] LABS: Hematocrit 37.1 % (30.3-42.9); Hemoglobin 12.3 gm/dl (10.1-14.3); Mean Corpuscular HGB Conc 33 % (30-34); Mean Corpuscular Volume 90 fl (79-97); Red Blood Count 4.11 M/mm3 (3.65-5.03); Red Cell Distribution Width 18.8 % (13.2-15.2)
[2019-02-06 13:07] LABS: Chol/HDL Ratio 3.58 %
[2019-02-06 13:08] LABS: INR 1.46 (0.87-1.13)
[2019-02-06 13:09] LABS: Partial Thromboplastin Time 41.9 Sec. (24.2-36.6)
[2019-02-06 13:10] LABS: Creatine Kinase MB 12.6 ng/mL (0.0-4.0)
[2019-02-06 13:11] LABS: Albumin 2.5 g/dL (3.9-5); Calcium 9.2 mg/dL (8.4-10.2)
[2019-02-06 13:13] LABS: Platelet Count 32 K/mm3 (140-440)
[2019-02-06] MEDS ORDERED: LORazepam 2 MG/ML VIAL IV ONE (13:14)
[2019-02-06] MEDS ORDERED: SODIUM CHLORIDE 0.9% 1000 ML 1,000 ML ONE (13:33)
[2019-02-06] MEDS ORDERED: LORazepam 2 MG/ML VIAL ONE (13:33)
[2019-02-06] MEDS ORDERED: LACTULOSE ENEMA 1000 ML PR ONE (14:00)
[2019-02-06 14:18] LABS: Anisocytosis 1+; Band Neutrophils # (Manual) 1.2 K/mm3; Basophils % (Manual) 0 % (0.0-1.8); Eosinophils % (Manual) 0 % (0.0-4.3); Total Cells Counted 100
--- NOTE | 2019-02-06 14:43 | Cat Scan Report ---
CT head/brain wo con INDICATION / CLINICAL INFORMATION: 68 years Female; altered mental status. TECHNIQUE: Routine CT head without contrast. All CT scans at this location are performed using CT dos e reduction for ALARA by means of automated exposure control. COMPARISON: Prior - 07/31/2018 FINDINGS: BRAIN / INTRACRANIAL CONTENTS: Small, presumed calcified meningioma seen along the inner table of the squamosal portion of the left temporal bone. No associated mass effect. This finding measures 9 mm i n maximum dimension. This is unchanged from prior. Otherwise, acute hemorrhage, mass effect, midline shift, hydrocephalus, or acute, large territorial i nfarct. Mild to moderate cerebral and cerebellar atrophy. There are mild areas of decreased attenuation in the white matter of the cerebral hemispheres. These are nonspecific findings and may be related to microangiopathy (hypertension, diabetes, atheroscleros is), given the patient's age. It might be difficult to evaluate for small areas of ischemia without d iffusion imaging by MRI. CRANIOCERVICAL JUNCTION: No significant abnormality. ORBITS: No significant abnormality of visualized orbits. SINUSES / MASTOIDS: Minimal mucosal thickening seen in the right mastoids. ADDITIONAL FINDINGS: No significant atherosclerotic disease appreciated. IMPRESSION: 1. No focal mass, hemorrhage, hydrocephalus, or acute, large territorial infarct. Signer Name: Mio Figueroa MD, III Signed: 02/06/2019 2:38 PM Workstation Name: [id number]
[2019-02-07] MEDS ORDERED: LACTULOSE ENEMA 1000 ML PR ONE (01:00)
[2019-02-07 10:51] LABS: Hematocrit 34.4 % (30.3-42.9); Hemoglobin 11.4 gm/dl (10.1-14.3); Mean Corpuscular HGB Conc 33 % (30-34); Mean Corpuscular Volume 91 fl (79-97); Red Blood Count 3.79 M/mm3 (3.65-5.03); Red Cell Distribution Width 18.8 % (13.2-15.2)
[2019-02-07 10:53] LABS: Platelet Count 31 K/mm3 (140-440)
[2019-02-07] MEDS ORDERED: D5W/0.45% NACL 1,000 ML IV SCH (11:00)
[2019-02-07 11:06] LABS: Albumin 2.3 g/dL (3.9-5)
[2019-02-07] MEDS ORDERED: DEXTROSE 5% IN WATER 1,000 ML IV SCH (15:00)
[2019-02-07] MEDS: LORazepam 2 MG/ML VIAL IV PRN (17:19)
--- NOTE | 2019-02-07 19:24 | History and Physical Report ---
History of Present Illness Date of examination: 02/07/19 Date of admission: 02/06/19 13:11 Chief complaint: AMs History of present illness: Patient seen/examined, she presented to the ER from the [place], evaluated, and admitted for sxs management, and control.Other w/up , revealed, UTI, patient started on IV ABX.PLT is low, ammoni high, treated with lactulose. She also showed in her urine, rhabdo. She was admitted with AMS/sepsis, due to UTI, and was quite dehydrated.She was hydrated. PLT low at 31,000, etiology, unknown at this time. Full w/u will follow. Past History Past Medical History: hypertension Medications and Allergies Allergies Allergy/AdvReac Type Severity Reaction Status Date / Time No Known Allergies Allergy Verified 01/06/17 23:38 Home Medications Medication Instructions Recorded Confirmed Last Taken Type Folic Acid [Folvite] 1 mg PO QDAY #30 tablet 08/12/18 02/06/19 Unknown Rx Haloperidol [Haldol] 0.5 mg PO Q6H PRN #30 tablet 08/12/18 02/06/19 Unknown Rx Lactulose [Cephulac] 20 gm PO Q12H #1 bottle 08/12/18 02/06/19 Unknown Rx Rifaximin [Xifaxan] 550 mg PO BID #60 tablet 08/12/18 02/06/19 Unknown Rx Thiamine [Vitamin B-1] 100 mg PO QDAY #30 tablet 08/12/18 02/06/19 Unknown Rx amLODIPine [Norvasc] 5 mg PO QDAY #30 tablet 08/12/18 02/06/19 Unknown Rx chlordiazePOXIDE [Librium] 25 mg PO DAILY #3 capsule 08/12/18 02/06/19 Unknown Rx ALBUTEROL NEB's [Proventil] 2.5 mg IH TID PRN 02/06/19 02/06/19 Unknown History Acetaminophen [Tylenol] 650 mg PO Q6HR PRN 02/06/19 02/06/19 Unknown History Fluticasone [Flonase] 1 spray NS QDAY 02/06/19 02/06/19 Unknown History Ipratropium/Albuterol Sulfate 1 spray IH QID 02/06/19 02/06/19 Unknown History [Combivent Respimat] Melatonin [Melatonin 10MG CAP] 10 mg PO QHS 02/06/19 02/06/19 Unknown History Active Meds: Active Medications Dextrose/Sodium Chloride (D5/0.45ns) 1,000 mls @ 85 mls/hr IV DIRECT CONNIE Last Admin: 02/07/19 11:36 Dose: 85 mls/hr Documented by: Lorazepam (Ativan) 0.5 mg IV Q6H PRN PRN Reason: Agitation Last Admin: 02/07/19 17:19 Dose: 0.5 mg Documented by: Review of Systems Constitutional: fatigue, weakness, poor appetite Breasts: deferred Rectal: incontinence Exam - Constitutional Vitals: Temp Pulse Resp BP Pulse Ox 97.4 F L 98 H 22 128/67 99 02/07/19 08:47 02/07/19 08:47 02/07/19 10:00 02/07/19 08:47 02/07/19 10:00 General appearance: Present: mild distress - EENT Eyes: Present: PERRL ENT: hearing intact, clear oral mucosa - Neck Neck: Present: supple, normal ROM - Respiratory Respiratory effort: normal Respiratory: bilateral: CTA - Cardiovascular Heart Sounds: Present: S1 & S2. Absent: rub, click - Extremities Extremities: pulses symmetrical, No edema Peripheral Pulses: within normal limits - Abdominal General gastrointestinal: Present: soft, non-tender, non-distended, normal bowel sounds Female genitourinary: Present: deferred - Rectal Rectal Exam: deferred - Integumentary Integumentary: Present: clear, warm, dry - Musculoskeletal Musculoskeletal: gait normal, strength equal bilaterally - Psychiatric Psychiatric: appropriate mood/affect - Neurologic Neurologic: moves all extremities Results - Labs CBC & Chem 7: 02/07/19 10:31 02/07/19 10:31 Labs: Abnormal lab results 02/06/19 02/07/19 02/07/19 Range/Units 20:23 10:31 10:31 RDW (13.2-15.2) % Plt Count (140-440) K/mm3 Sodium 166 H* (137-145) mmol/L Chloride 134.7 H (98-107) mmol/L Carbon Dioxide 20 L (22-30) mmol/L BUN 68 H (7-17) mg/dL Creatinine 2.0 H (0.7-1.2) mg/dL Lactic Acid 3.00 H* (0.7-2.0) mmol/L AST 150 H (5-40) units/L ALT 191 H (7-56) units/L Alkaline Phosphatase 204 H (35-129) units/L Ammonia 62.0 H (25-60) umol/L Albumin 2.3 L (3.9-5) g/dL 02/07/19 Range/Units 10:31 RDW 18.8 H (13.2-15.2) % Plt Count 31 L (140-440) K/mm3 Sodium (137-145) mmol/L Chloride (98-107) mmol/L Carbon Dioxide (22-30) mmol/L BUN (7-17) mg/dL Creatinine (0.7-1.2) mg/dL Lactic Acid (0.7-2.0) mmol/L AST (5-40) units/L ALT (7-56) units/L Alkaline Phosphatase (35-129) units/L Ammonia (25-60) umol/L Albumin (3.9-5) g/dL Assessment and Plan - Patient Problems (1) Acute renal failure (ARF) Current Visit: Yes Status: Acute Plan to address problem: this is due to dehydration, will continue to hydrate. (2) Dehydration Current Visit: Yes Status: Acute Plan to address problem: Same as above. (3) Hepatic encephalopathy Current Visit: Yes Status: Acute Plan to address problem: Continuje with Lactulose, check hep panel. (4) Rhabdomyolysis Current Visit: Yes Status: Acute Plan to address problem: Alkalanize the urine. (5) UTI (urinary tract infection) Current Visit: Yes Status: Acute Plan to address problem: leading into sepsis, will continue IV abx. (6) Sepsis Current Visit: Yes Status: Acute Plan to address problem: Same as above.
[2019-02-07] MEDS ORDERED: ALBUTEROL 2.5 MG/3 ML NEBU IH PRN (19:36)
[2019-02-07] MEDS ORDERED: HALOPERIDOL 1 MG TAB PO PRN (19:36)
[2019-02-07] MEDS ORDERED: D5W/0.9% NACL 1,000 ML IV SCH (21:00)
[2019-02-07 21:34] LABS: Basophils % (Auto) 0.1 % (0.0-1.8); Eosinophils % (Auto) 0.5 % (0.0-4.3); Hematocrit 33.1 % (30.3-42.9); Hemoglobin 10.6 gm/dl (10.1-14.3); Lymphocytes # (Auto) 0.7 K/mm3 (1.2-5.4); Lymphocytes % (Auto) 9.5 % (13.4-35.0); Mean Corpuscular HGB Conc 32 % (30-34); Mean Corpuscular Volume 95 fl (79-97); Monocytes # (Auto) 0.5 K/mm3 (0.0-0.8); Monocytes % (Auto) 7.2 % (0.0-7.3); Platelet Count 33 K/mm3 (140-440); Red Cell Distribution Width 19.5 % (13.2-15.2)
--- NOTE | 2019-02-07 21:45 | XRay Report ---
CHEST 1 VIEW INDICATION: chest pain COMPARISON: 02/06/2019 FINDINGS: Support devices: None Heart: Stable. Lungs/Pleura: Focal parenchymal density in the right lower lung persists, probably representing pneum onia. This is superimposed on chronic interstitial lung disease. IMPRESSION: 1. Right basilar pneumonia. Suggest follow-up radiograph to document clearing and exclude a right low er lung mass. Signer Name: Nirmal Melgoza MD Signed: 02/07/2019 9:41 PM Workstation Name: [id number]
[2019-02-07] MEDS: CYPROHEPTADINE 4 MG TAB PO SCH (23:25)
[2019-02-07] MEDS: LACTULOSE 20 GM/30 ML ORAL LIQD PO SCH (23:25)
[2019-02-07] MEDS: RIFAXIMIN 550 MG TAB PO SCH (23:26)
[2019-02-08] MEDS: LORazepam 2 MG/ML VIAL IV PRN (00:57)
[2019-02-08 06:00] LABS: Basophils % (Auto) 0.1 % (0.0-1.8); Eosinophils # (Auto) 0.1 K/mm3 (0.0-0.4); Hematocrit 31.5 % (30.3-42.9); Hemoglobin 10.2 gm/dl (10.1-14.3); Lymphocytes # (Auto) 0.7 K/mm3 (1.2-5.4); Lymphocytes % (Auto) 10.2 % (13.4-35.0); Mean Corpuscular HGB Conc 33 % (30-34); Mean Corpuscular Volume 93 fl (79-97); Monocytes # (Auto) 0.5 K/mm3 (0.0-0.8); Monocytes % (Auto) 6.9 % (0.0-7.3); Red Blood Count 3.39 M/mm3 (3.65-5.03); Red Cell Distribution Width 19.5 % (13.2-15.2)
[2019-02-08 06:02] LABS: Platelet Count 35 K/mm3 (140-440)
[2019-02-08 06:57] LABS: Albumin 2.1 g/dL (3.9-5); Calcium 8.6 mg/dL (8.4-10.2)
[2019-02-08] MEDS: LACTULOSE 20 GM/30 ML ORAL LIQD PO SCH ×2 (10:18→22:40)
[2019-02-08] MEDS: FOLIC ACID 1 MG TAB PO SCH (10:18)
[2019-02-08] MEDS: RIFAXIMIN 550 MG TAB PO SCH ×2 (10:19→22:34)
[2019-02-08] MEDS: FLUTICASONE PROPIONATE NASAL SPRAY 16 GM NS SCH (10:19)
[2019-02-08] MEDS: CYPROHEPTADINE 4 MG TAB PO SCH ×2 (10:19→22:34)
[2019-02-08] MEDS: THIAMINE 100 MG TAB PO SCH (10:19)
--- NOTE | 2019-02-08 16:32 | Ultrasound Report ---
ULTRASOUND ABDOMEN, COMPLETE INDICATION: Abd pain. COMPARISON: None available. FINDINGS: Pancreas: Normal. Abdominal Aorta: Normal. IVC: Normal. Liver: 17 cm. Echotexture is mildly heterogeneous. Gallbladder: Gallstones and sludge. Negative for wall thickening. Bile ducts: Normal. Common Bile Duct measures 4 mm. Right Kidney: Normal. Left Kidney: Normal. Spleen: Normal. Free fluid: None. Additional Findings: None. IMPRESSION: 1. Gallstone/sludge without wall thickening or biliary dilatation. 2. Mildly large heterogeneous liver. Signer Name: Fausto Bonilla MD Signed: 02/08/2019 4:28 PM Workstation Name: [id number]
--- NOTE | 2019-02-08 16:34 | Ultrasound Report ---
Pelvic ultrasound. 02/08/2019. HISTORY: Pelvic pain. FINDINGS: The uterus measures 8 x 5.4 x 6.3 cm. The endometrial stripe measures 5 mm. An anterior fib roid measures 3.6 cm and is partially calcified. The ovaries are obscured by bowel gas. Negative for adnexal mass or fluid. IMPRESSION: 1. Anterior uterine fibroid. 2. Ovaries not visualized. Negative for adnexal mass or fluid. Signer Name: Fausto Bonilla MD Signed: 02/08/2019 4:29 PM Workstation Name: [id number]
[2019-02-08 19:22] LABS: Hematocrit 32.5 % (30.3-42.9); Hemoglobin 10.5 gm/dl (10.1-14.3); Mean Corpuscular HGB Conc 32 % (30-34); Mean Corpuscular Volume 92 fl (79-97); Red Blood Count 3.54 M/mm3 (3.65-5.03); Red Cell Distribution Width 19.2 % (13.2-15.2)
[2019-02-08 19:24] LABS: Platelet Count 41 K/mm3 (140-440)
--- NOTE | 2019-02-08 19:29 | Progress Note ---
Assessment and Plan - Patient Problems (1) Acute renal failure (ARF) Current Visit: Yes Status: Acute Plan to address problem: this is due to dehydration, will continue to hydrate. (2) Dehydration Current Visit: Yes Status: Acute Plan to address problem: Same as above. (3) Hepatic encephalopathy Current Visit: Yes Status: Acute Plan to address problem: Continuje with Lactulose, check hep panel. (4) Rhabdomyolysis Current Visit: Yes Status: Acute Plan to address problem: Alkalanize the urine. (5) UTI (urinary tract infection) Current Visit: Yes Status: Acute Plan to address problem: leading into sepsis, will continue IV abx. (6) Sepsis Current Visit: Yes Status: Acute Plan to address problem: Same as above. Subjective Date of service: 02/08/19 Principal diagnosis: AMS/Dehydration. Interval history: Patient seen/examined, resting in bed, records reviewed.Hep C ab positive, and will explain, ABN LFTs, Rhabdo still in progress, and will continue with hydration. Will check urine alkalization.Continue Lactulose, and monitor labs. Objective - Constitutional Vitals: Vital Signs - 12hr 02/08/19 02/08/19 02/08/19 07:37 13:10 16:36 Temperature 97.4 F L 97.3 F L 97.4 F L Pulse Rate 81 88 78 Respiratory 16 14 16 Rate Blood Pressure 105/69 112/53 99/63 O2 Sat by Pulse 100 97 99 Oximetry General appearance: Present: mild distress - EENT Eyes: PERRL, EOM intact ENT: hearing intact, clear oral mucosa Ears: bilateral: normal - Neck Neck: supple, normal ROM - Respiratory Respiratory: bilateral: rhonchi - Breasts Breasts: deferred - Cardiovascular Rhythm: regular Heart Sounds: Present: S1 & S2. Absent: gallop, rub Extremities: pulses intact, No edema, normal color, Full ROM - Gastrointestinal General gastrointestinal: Present: soft, non-tender, non-distended, normal bowel sounds Rectal Exam: deferred - Genitourinary Female genitourinary: deferred - Integumentary Integumentary: clear, warm, dry - Musculoskeletal Musculoskeletal: 1, strength equal bilaterally - Neurologic Neurologic: moves all extremities - Labs CBC & Chem 7: 02/08/19 04:26 02/08/19 04:26 Labs: Abnormal lab results 02/07/19 02/08/19 02/08/19 Range/Units 21:02 04:26 04:26 RBC 3.50 L 3.39 L (3.65-5.03) M/mm3 RDW 19.5 H 19.5 H (13.2-15.2) % Plt Count 33 L 35 L (140-440) K/mm3 Lymph % (Auto) 9.5 L 10.2 L (13.4-35.0) % Lymph # 0.7 L 0.7 L (1.2-5.4) K/mm3 Seg Neutrophils % 82.7 H 80.8 H (40.0-70.0) % Sodium (137-145) mmol/L Chloride (98-107) mmol/L Carbon Dioxide (22-30) mmol/L BUN (7-17) mg/dL Creatinine (0.7-1.2) mg/dL Glucose (65-100) mg/dL AST (5-40) units/L ALT (7-56) units/L Alkaline Phosphatase (35-129) units/L Ammonia (25-60) umol/L Total Creatine Kinase (30-135) units/L Albumin (3.9-5) g/dL Vitamin B12 (211-911) pg/mL Hepatitis C Antibody Reactive A (NonReactive) 02/08/19 02/08/19 02/08/19 Range/Units 04:26 04:26 04:26 RBC (3.65-5.03) M/mm3 RDW (13.2-15.2) % Plt Count (140-440) K/mm3 Lymph % (Auto) (13.4-35.0) % Lymph # (1.2-5.4) K/mm3 Seg Neutrophils % (40.0-70.0) % Sodium 164 H* (137-145) mmol/L Chloride 135.7 H (98-107) mmol/L Carbon Dioxide 21 L (22-30) mmol/L BUN 59 H (7-17) mg/dL Creatinine 1.8 H (0.7-1.2) mg/dL Glucose 107 H (65-100) mg/dL AST 112 H (5-40) units/L ALT 155 H (7-56) units/L Alkaline Phosphatase 185 H (35-129) units/L Ammonia 76.0 H (25-60) umol/L Total Creatine Kinase 704 H (30-135) units/L Albumin 2.1 L (3.9-5) g/dL Vitamin B12 1491 H (211-911) pg/mL Hepatitis C Antibody (NonReactive)
[2019-02-08] MEDS ORDERED: LACTULOSE ENEMA 1000 ML PR PRN (19:40)
[2019-02-08 20:15] LABS: Basophils % (Manual) 0 % (0.0-1.8); Myelocytes # (Manual) 0.1 K/mm3; Total Cells Counted 100
[2019-02-08 20:16] LABS: Anisocytosis 1+; Platelet Estimate Appears Decreased
[2019-02-08 20:17] LABS: Poikilocytosis 1+
[2019-02-08] MEDS: DEXTROSE 10% IN WATER 1,000 ML IV SCH (20:58)
[2019-02-09] MEDS: FLUTICASONE PROPIONATE NASAL SPRAY 16 GM NS SCH (10:17)
--- NOTE | 2019-02-09 10:34 | Progress Note ---
Assessment and Plan - Patient Problems (1) Acute renal failure (ARF) Current Visit: Yes Status: Acute Plan to address problem: this is pre renal azotemia, due to dehydration. (2) Dehydration Current Visit: Yes Status: Acute Plan to address problem: Same as above. (3) Hepatic encephalopathy Current Visit: Yes Status: Acute Plan to address problem: Continuje with Lactulose, check hep panel. (4) Rhabdomyolysis Current Visit: Yes Status: Acute Plan to address problem: Alkalanize the urine. (5) UTI (urinary tract infection) Current Visit: Yes Status: Acute Plan to address problem: leading into sepsis, will continue IV abx. (6) Sepsis Current Visit: Yes Status: Acute Plan to address problem: Same as above. (7) Pneumonia Current Visit: Yes Status: Acute Plan to address problem: continue with IV ABX. Subjective Date of service: 02/09/19 Principal diagnosis: AMS/Dehydration. Interval history: Patient seen/examined, resting in bed, records reviewed.Hep C ab positive, and will explain, ABN LFTs, Rhabdo still in progress, and will continue with hydration. Will check urine alkalization.Continue Lactulose, and monitor labs. Patient seen, resting in bed, NAD, labs reviewed.Will continue current management. Objective - Constitutional Vitals: Vital Signs - 12hr 02/08/19 02/09/19 23:32 04:45 Temperature 98.4 F 97.9 F Pulse Rate 89 56 L Respiratory 18 18 Rate Blood Pressure 128/80 100/65 O2 Sat by Pulse 99 100 Oximetry General appearance: Present: mild distress - EENT Eyes: PERRL, EOM intact ENT: hearing intact, clear oral mucosa Ears: bilateral: normal - Neck Neck: supple, normal ROM - Respiratory Respiratory effort: normal Respiratory: bilateral: rhonchi - Breasts Breasts: deferred - Cardiovascular Rhythm: regular Heart Sounds: Present: S1 & S2. Absent: gallop, rub Extremities: pulses intact, No edema, normal color, Full ROM - Gastrointestinal General gastrointestinal: Present: soft, non-tender, non-distended, normal bowel sounds Rectal Exam: deferred - Genitourinary Female genitourinary: deferred - Integumentary Integumentary: clear, warm, dry - Musculoskeletal Musculoskeletal: 1, strength equal bilaterally - Neurologic Neurologic: moves all extremities - Psychiatric Psychiatric: appropriate mood/affect - Labs CBC & Chem 7: 02/08/19 19:12 02/08/19 04:26 Labs: Abnormal lab results 02/08/19 02/08/19 Range/Units 04:26 19:12 RBC 3.54 L (3.65-5.03) M/mm3 RDW 19.2 H (13.2-15.2) % Plt Count 41 L (140-440) K/mm3 Seg Neuts % (Manual) 86.0 H (40.0-70.0) % Lymphocytes % (Manual) 6.0 L (13.4-35.0) % Eosinophils % (Manual) 5.0 H (0.0-4.3) % Lymphocytes # (Manual) 0.4 L (1.2-5.4) K/mm3 Vitamin B12 1491 H (211-911) pg/mL
[2019-02-09] MEDS: FOLIC ACID 1 MG TAB PO SCH (14:03)
[2019-02-09] MEDS: CYPROHEPTADINE 4 MG TAB PO SCH (14:03)
[2019-02-09] MEDS: THIAMINE 100 MG TAB PO SCH (14:04)
[2019-02-09] MEDS: RIFAXIMIN 550 MG TAB PO SCH (14:04)
[2019-02-09 19:50] LABS: Hematocrit 30.6 % (30.3-42.9); Hemoglobin 9.8 gm/dl (10.1-14.3); Mean Corpuscular HGB Conc 32 % (30-34); Mean Corpuscular Volume 92 fl (79-97); Red Blood Count 3.34 M/mm3 (3.65-5.03); Red Cell Distribution Width 19.6 % (13.2-15.2)
[2019-02-09 19:52] LABS: Platelet Count 43 K/mm3 (140-440)
[2019-02-09 20:43] LABS: Basophils % (Manual) 0 % (0.0-1.8); Total Cells Counted 100
[2019-02-09 20:44] LABS: RBC Morphology Normal
[2019-02-10] MEDS: CYPROHEPTADINE 4 MG TAB PO SCH ×3 (01:17→23:25)
[2019-02-10] MEDS: RIFAXIMIN 550 MG TAB PO SCH ×3 (01:17→23:25)
[2019-02-10 04:40] LABS: Calcium 8.4 mg/dL (8.4-10.2)
--- NOTE | 2019-02-10 10:24 | Progress Note ---
Assessment and Plan - Patient Problems (1) Acute renal failure (ARF) Current Visit: Yes Status: Acute Plan to address problem: this is pre renal azotemia, due to dehydration. (2) Dehydration Current Visit: Yes Status: Acute Plan to address problem: Same as above. (3) Hepatic encephalopathy Current Visit: Yes Status: Acute Plan to address problem: Continuje with Lactulose, check hep panel. (4) Rhabdomyolysis Current Visit: Yes Status: Acute Plan to address problem: Alkalanize the urine. (5) UTI (urinary tract infection) Current Visit: Yes Status: Acute Plan to address problem: leading into sepsis, will continue IV abx. (6) Sepsis Current Visit: Yes Status: Acute Plan to address problem: Same as above. (7) Pneumonia Current Visit: Yes Status: Acute Plan to address problem: continue with IV ABX. Subjective Date of service: 02/10/19 Principal diagnosis: AMS/Dehydration. Interval history: Patient seen/examined, resting in bed, records reviewed.Hep C ab positive, and will explain, ABN LFTs, Rhabdo still in progress, and will continue with hydration. Will check urine alkalization.Continue Lactulose, and monitor labs. Patient seen, resting in bed, NAD, labs reviewed.Will continue current management. patient seen, resting in bed, labs/records reviewed.K+ low, and replaced. Objective - Constitutional Vitals: Vital Signs - 12hr 02/10/19 08:37 Temperature 97.7 F Pulse Rate 63 Respiratory 18 Rate Blood Pressure 118/76 O2 Sat by Pulse 100 Oximetry General appearance: Present: mild distress - EENT Eyes: PERRL, EOM intact ENT: hearing intact, clear oral mucosa Ears: bilateral: normal - Neck Neck: supple, normal ROM - Respiratory Respiratory effort: normal Respiratory: bilateral: CTA - Breasts Breasts: deferred - Cardiovascular Rhythm: regular Heart Sounds: Present: S1 & S2. Absent: gallop, rub Extremities: pulses intact, No edema, normal color, Full ROM - Gastrointestinal General gastrointestinal: Present: soft, non-tender, non-distended, normal bowel sounds Rectal Exam: deferred - Genitourinary Female genitourinary: deferred - Integumentary Integumentary: clear, warm, dry - Musculoskeletal Musculoskeletal: 1, strength equal bilaterally - Psychiatric Psychiatric: appropriate mood/affect - Labs CBC & Chem 7: 02/09/19 19:33 02/10/19 03:56 Labs: Abnormal lab results 02/09/19 02/10/19 02/10/19 Range/Units 19:33 03:56 03:56 RBC 3.34 L (3.65-5.03) M/mm3 Hgb 9.8 L (10.1-14.3) gm/dl RDW 19.6 H (13.2-15.2) % Plt Count 43 L (140-440) K/mm3 Monocytes % (Manual) 9.0 H (0.0-7.3) % Sodium 156 H (137-145) mmol/L Potassium 3.3 L (3.6-5.0) mmol/L Chloride 128.7 H (98-107) mmol/L BUN 34 H (7-17) mg/dL Glucose 155 H (65-100) mg/dL AST 59 H (5-40) units/L ALT 107 H (7-56) units/L Alkaline Phosphatase 159 H (35-129) units/L Ammonia 65.0 H (25-60) umol/L Total Creatine Kinase 262 H (30-135) units/L Total Protein 6.2 L (6.3-8.2) g/dL Albumin 2.0 L (3.9-5) g/dL
[2019-02-10] MEDS: POTASSIUM CHLORIDE 10 MEQ 10 MEQ/100 ML BAG IV SCH ×2 (11:00→12:00)
[2019-02-10] MEDS: FLUTICASONE PROPIONATE NASAL SPRAY 16 GM NS SCH (11:04)
[2019-02-10] MEDS: FOLIC ACID 1 MG TAB PO SCH (11:04)
[2019-02-10] MEDS: THIAMINE 100 MG TAB PO SCH (11:04)
[2019-02-10 20:00] LABS: Hematocrit 27.8 % (30.3-42.9); Hemoglobin 9.1 gm/dl (10.1-14.3); Mean Corpuscular HGB Conc 33 % (30-34); Mean Corpuscular Volume 91 fl (79-97); Red Blood Count 3.05 M/mm3 (3.65-5.03); Red Cell Distribution Width 18.8 % (13.2-15.2)
[2019-02-10 20:10] LABS: Platelet Count 51 K/mm3 (140-440)
[2019-02-10 22:38] LABS: Band Neutrophils # (Manual) 0.1 K/mm3; Basophils % (Manual) 0 % (0.0-1.8); Total Cells Counted 100
[2019-02-10 22:39] LABS: Anisocytosis 1+; Hypochromasia 2+; Platelet Estimate Appears Decreased
[2019-02-10] MEDS: DEXTROSE 10% IN WATER 1,000 ML IV SCH (23:26)
[2019-02-11] MEDS: DEXTROSE 10% IN WATER 1,000 ML IV SCH ×2 (06:12→16:44)
[2019-02-11] MEDS: FLUTICASONE PROPIONATE NASAL SPRAY 16 GM NS SCH (10:00)
[2019-02-11] MEDS: THIAMINE 100 MG TAB PO SCH (10:05)
[2019-02-11] MEDS: RIFAXIMIN 550 MG TAB PO SCH (10:05)
[2019-02-11] MEDS: CYPROHEPTADINE 4 MG TAB PO SCH (10:05)
[2019-02-11] MEDS: FOLIC ACID 1 MG TAB PO SCH (10:05)
--- NOTE | 2019-02-11 10:35 | Progress Note ---
Assessment and Plan - Patient Problems (1) Acute renal failure (ARF) Current Visit: Yes Status: Acute Plan to address problem: this is pre renal azotemia, due to dehydration. (2) Dehydration Current Visit: Yes Status: Acute Plan to address problem: Same as above. (3) Hepatic encephalopathy Current Visit: Yes Status: Acute Plan to address problem: Continuje with Lactulose, check hep panel. (4) Rhabdomyolysis Current Visit: Yes Status: Acute Plan to address problem: Alkalanize the urine. (5) UTI (urinary tract infection) Current Visit: Yes Status: Acute Plan to address problem: leading into sepsis, will continue IV abx. (6) Sepsis Current Visit: Yes Status: Acute Plan to address problem: Same as above. (7) Pneumonia Current Visit: Yes Status: Acute Plan to address problem: continue with IV ABX. Subjective Date of service: 02/11/19 Principal diagnosis: AMS/Dehydration. Interval history: Patient seen/examined, resting in bed, records reviewed.Hep C ab positive, and will explain, ABN LFTs, Rhabdo still in progress, and will continue with hydration. Will check urine alkalization.Continue Lactulose, and monitor labs. Patient seen, resting in bed, NAD, labs reviewed.Will continue current management. patient seen, resting in bed, labs/records reviewed.K+ low, and replaced. Patient seen, resting in bed, labs reviewed, new ones ordered. Objective - Constitutional Vitals: Vital Signs - 12hr 02/10/19 02/11/19 02/11/19 23:51 04:18 08:03 Temperature 98.0 F 98 F 97.7 F Pulse Rate 78 68 61 Respiratory 18 18 18 Rate Blood Pressure 130/85 121/68 Blood Pressure 128/68 [Right] O2 Sat by Pulse 98 95 100 Oximetry General appearance: Present: mild distress - EENT Eyes: PERRL, EOM intact ENT: hearing intact, clear oral mucosa Ears: bilateral: normal - Neck Neck: supple, normal ROM - Respiratory Respiratory effort: normal Respiratory: bilateral: CTA - Breasts Breasts: deferred - Cardiovascular Rhythm: regular Heart Sounds: Present: S1 & S2. Absent: gallop, rub Extremities: pulses intact, No edema, normal color, Full ROM - Gastrointestinal General gastrointestinal: Present: soft, non-tender, non-distended, normal bowel sounds Rectal Exam: deferred - Genitourinary Female genitourinary: deferred - Integumentary Integumentary: clear, warm, dry - Musculoskeletal Musculoskeletal: 1, strength equal bilaterally - Neurologic Neurologic: moves all extremities - Labs CBC & Chem 7: 02/10/19 19:37 02/10/19 03:56 Labs: Abnormal lab results 02/08/19 02/10/19 Range/Units 04:26 19:37 RBC 3.05 L (3.65-5.03) M/mm3 Hgb 9.1 L (10.1-14.3) gm/dl Hct 27.8 L (30.3-42.9) % RDW 18.8 H (13.2-15.2) % Plt Count 51 L (140-440) K/mm3 Lymphocytes % (Manual) 9.0 L (13.4-35.0) % Monocytes % (Manual) 9.0 H (0.0-7.3) % Eosinophils % (Manual) 12.0 H (0.0-4.3) % Lymphocytes # (Manual) 0.4 L (1.2-5.4) K/mm3 Eosinophils # (Manual) 0.5 H (0.0-0.4) K/mm3 Hep Bs Antibody, Quant <5 L (>=10) mIU/mL
[2019-02-11 20:24] LABS: Basophils % (Auto) 0.1 % (0.0-1.8); Eosinophils # (Auto) 0.1 K/mm3 (0.0-0.4); Eosinophils % (Auto) 4.3 % (0.0-4.3); Hematocrit 29.3 % (30.3-42.9); Hemoglobin 9.7 gm/dl (10.1-14.3); Lymphocytes # (Auto) 0.4 K/mm3 (1.2-5.4); Lymphocytes % (Auto) 13.6 % (13.4-35.0); Mean Corpuscular HGB Conc 33 % (30-34); Mean Corpuscular Volume 89 fl (79-97); Monocytes # (Auto) 0.2 K/mm3 (0.0-0.8); Platelet Count 47 K/mm3 (140-440); Red Blood Count 3.27 M/mm3 (3.65-5.03); Red Cell Distribution Width 18.5 % (13.2-15.2)
[2019-02-12] MEDS: CYPROHEPTADINE 4 MG TAB PO SCH ×3 (03:53→21:38)
[2019-02-12] MEDS: RIFAXIMIN 550 MG TAB PO SCH ×3 (03:54→21:38)
[2019-02-12 08:19] LABS: Alanine Aminotransferase 81 units/L (7-56); Albumin 1.8 g/dL (3.9-5); BUN/Creatinine Ratio 19; Blood Urea Nitrogen 15 mg/dL (7-17); Calcium 8.2 mg/dL (8.4-10.2); Hemolysis Index 44
[2019-02-12 08:25] LABS: Hematocrit 29.2 % (30.3-42.9); Hemoglobin 9.6 gm/dl (10.1-14.3); Mean Corpuscular HGB Conc 33 % (30-34); Mean Corpuscular Volume 90 fl (79-97); Red Blood Count 3.26 M/mm3 (3.65-5.03); Red Cell Distribution Width 18.7 % (13.2-15.2)
[2019-02-12 08:39] LABS: Platelet Count 43 K/mm3 (140-440)
[2019-02-12] MEDS: FOLIC ACID 1 MG TAB PO SCH (11:10)
[2019-02-12] MEDS: FLUTICASONE PROPIONATE NASAL SPRAY 16 GM NS SCH (11:10)
[2019-02-12] MEDS: THIAMINE 100 MG TAB PO SCH (11:11)
--- NOTE | 2019-02-12 15:02 | Consultation ---
History of Present Illness Consult date: 02/12/19 Chief complaint: dyphagia - History of present illness History of present illness: 68 yo F with hx of etoh abuse presents to hospital for AMS. Patient is nonverbal and can not provide any history. All history is obtained from chart. Her notes, the patient lives [place] a [place] and was found to be less interactive by the penitentiary staff. They also reported that she had not been taking anything by mouth for the past 3 days. Patient was febrile. Found to have a UTI and has been treated for this. She was evaluated by speech therapy and noted to have normal swallowing however did hold at food bolus in her mouth for prolonged period of time prior to swallowing. They feel that this may impact her nutritional status and therefore a PEG tube evaluation was recommended. The patient's albumin is 1.8, indicating severe malnutrition. Past History Past Medical History: hypertension Past Surgical History: Other (unknown) Social history: alcohol abuse Family history: no significant family history Medications and Allergies Allergies Allergy/AdvReac Type Severity Reaction Status Date / Time No Known Allergies Allergy Verified 01/06/17 23:38 Home Medications Medication Instructions Recorded Confirmed Last Taken Type Folic Acid [Folvite] 1 mg PO QDAY #30 tablet 08/12/18 02/06/19 Unknown Rx Haloperidol [Haldol] 0.5 mg PO Q6H PRN #30 tablet 08/12/18 02/06/19 Unknown Rx Lactulose [Cephulac] 20 gm PO Q12H #1 bottle 08/12/18 02/06/19 Unknown Rx Rifaximin [Xifaxan] 550 mg PO BID #60 tablet 08/12/18 02/06/19 Unknown Rx Thiamine [Vitamin B-1] 100 mg PO QDAY #30 tablet 08/12/18 02/06/19 Unknown Rx amLODIPine [Norvasc] 5 mg PO QDAY #30 tablet 08/12/18 02/06/19 Unknown Rx chlordiazePOXIDE [Librium] 25 mg PO DAILY #3 capsule 08/12/18 02/06/19 Unknown Rx ALBUTEROL NEB's [Proventil] 2.5 mg IH TID PRN 02/06/19 02/06/19 Unknown History Acetaminophen [Tylenol] 650 mg PO Q6HR PRN 02/06/19 02/06/19 Unknown History Fluticasone [Flonase] 1 spray NS QDAY 02/06/19 02/06/19 Unknown History Ipratropium/Albuterol Sulfate 1 spray IH QID 02/06/19 02/06/19 Unknown History [Combivent Respimat] Melatonin [Melatonin 10MG CAP] 10 mg PO QHS 02/06/19 02/06/19 Unknown History Active Meds: Active Medications Albuterol (Proventil) 2.5 mg IH TID PRN PRN Reason: Wheezing Cyproheptadine HCl (Periactin) 4 mg PO BID [facility] Last Admin: 02/12/19 11:11 Dose: Not Given Documented by: Fluticasone Propionate (Flonase) 50 mcg NS QDAY [facility] Last Admin: 02/12/19 11:10 Dose: Not Given Documented by: Folic Acid (Folvite) 1 mg PO QDAY [facility] Last Admin: 02/12/19 11:10 Dose: Not Given Documented by: Haloperidol (Haldol) 0.5 mg PO Q6H PRN PRN Reason: Agitation Dextrose (D10w) 1,000 mls @ 125 mls/hr IV DIRECT [facility] Last Admin: 02/11/19 16:44 Dose: 125 mls/hr Documented by: Levofloxacin/Dextrose (Levaquin 750mg/150ml) 750 mg in 150 mls @ 100 mls/hr IV Q24HR [facility]; Protocol Stop: 02/13/19 11:29 Last Admin: 02/12/19 11:09 Dose: 100 mls/hr Documented by: Lorazepam (Ativan) 0.5 mg IV Q6H PRN PRN Reason: Agitation Last Admin: 02/08/19 00:57 Dose: 0.5 mg Documented by: Rifaximin (Xifaxan) 550 mg PO BID [facility] Last Admin: 02/12/19 11:11 Dose: Not Given Documented by: Thiamine HCl (Vitamin B-1) 100 mg PO QDAY [facility] Last Admin: 02/12/19 11:11 Dose: Not Given Documented by: Review of Systems ROS unobtainable: due to mental status Exam Vital Signs Temp Pulse Resp BP Pulse Ox 100.5 F H 117 H 15 116/74 98 02/06/19 11:02 02/06/19 11:02 02/06/19 11:02 02/06/19 11:02 02/06/19 11:02 Narrative exam: General: Awake and alert, nonverbal. No apparent distress ENT: No scleral icterus or conjunctival pallor CV: S1, S2 present Respiratory: Even and unlabored Abdomen: Soft, nontender, nondistended. No obvious surgical scars Extremity: No clubbing, cyanosis, edema Results - Labs 02/12/19 07:42 02/12/19 07:42 Abnormal lab results 02/11/19 02/12/19 02/12/19 Range/Units 19:40 07:42 07:42 WBC 3.1 L 3.6 L (4.5-11.0) K/mm3 RBC 3.27 L 3.26 L (3.65-5.03) M/mm3 Hgb 9.7 L 9.6 L (10.1-14.3) gm/dl Hct 29.3 L 29.2 L (30.3-42.9) % RDW 18.5 H 18.7 H (13.2-15.2) % Plt Count 47 L 43 L (140-440) K/mm3 Lymph # 0.4 L (1.2-5.4) K/mm3 Seg Neutrophils % 76.0 H (40.0-70.0) % Potassium 3.5 L (3.6-5.0) mmol/L Chloride 115.8 H (98-107) mmol/L Carbon Dioxide 20 L (22-30) mmol/L Glucose 172 H (65-100) mg/dL Calcium 8.2 L (8.4-10.2) mg/dL AST 53 H (5-40) units/L ALT 81 H (7-56) units/L Alkaline Phosphatase 149 H (35-129) units/L Total Protein 5.9 L (6.3-8.2) g/dL Albumin 1.8 L (3.9-5) g/dL Diabetes panel 02/12/19 Range/Units 07:42 Sodium 145 D (137-145) mmol/L Potassium 3.5 L (3.6-5.0) mmol/L Chloride 115.8 H (98-107) mmol/L Carbon Dioxide 20 L (22-30) mmol/L BUN 15 (7-17) mg/dL Creatinine 0.8 (0.7-1.2) mg/dL Glucose 172 H (65-100) mg/dL Calcium 8.2 L (8.4-10.2) mg/dL AST 53 H (5-40) units/L ALT 81 H (7-56) units/L Alkaline Phosphatase 149 H (35-129) units/L Total Protein 5.9 L (6.3-8.2) g/dL Albumin 1.8 L (3.9-5) g/dL Calcium panel 02/12/19 Range/Units 07:42 Calcium 8.2 L (8.4-10.2) mg/dL Albumin 1.8 L (3.9-5) g/dL Pituitary panel 02/12/19 Range/Units 07:42 Sodium 145 D (137-145) mmol/L Potassium 3.5 L (3.6-5.0) mmol/L Chloride 115.8 H (98-107) mmol/L Carbon Dioxide 20 L (22-30) mmol/L BUN 15 (7-17) mg/dL Creatinine 0.8 (0.7-1.2) mg/dL Glucose 172 H (65-100) mg/dL Calcium 8.2 L (8.4-10.2) mg/dL Adrenal panel 02/12/19 Range/Units 07:42 Sodium 145 D (137-145) mmol/L Potassium 3.5 L (3.6-5.0) mmol/L Chloride 115.8 H (98-107) mmol/L Carbon Dioxide 20 L (22-30) mmol/L BUN 15 (7-17) mg/dL Creatinine 0.8 (0.7-1.2) mg/dL Glucose 172 H (65-100) mg/dL Calcium 8.2 L (8.4-10.2) mg/dL Total Bilirubin 0.70 (0.1-1.2) mg/dL AST 53 H (5-40) units/L ALT 81 H (7-56) units/L Alkaline Phosphatase 149 H (35-129) units/L Total Protein 5.9 L (6.3-8.2) g/dL Albumin 1.8 L (3.9-5) g/dL - Imaging US - abdomen: report reviewed, image reviewed Assessment and Plan 68-year-old female with 1. severe protein calorie malnutrition 2. etoh dependence 3. thrombocytopenia likely 2/2 #2 Plan: 1. recommend consult to GI for PEG tube placement. If unable to be performed endoscopically, will consider laparoscopic placement in OR 2. IVF 3. prealbumin D/w Dr. Carter Thank you, please call with questions.
[2019-02-12] MEDS: DEXTROSE 10% IN WATER 1,000 ML IV SCH (15:11)
--- NOTE | 2019-02-12 17:24 | Progress Note ---
Assessment and Plan - Patient Problems (1) Acute renal failure (ARF) Current Visit: Yes Status: Acute Plan to address problem: this is pre renal azotemia, due to dehydration. (2) Dehydration Current Visit: Yes Status: Acute Plan to address problem: Same as above. (3) Hepatic encephalopathy Current Visit: Yes Status: Acute Plan to address problem: Continuje with Lactulose, check hep panel. (4) Rhabdomyolysis Current Visit: Yes Status: Acute Plan to address problem: Alkalanize the urine. (5) UTI (urinary tract infection) Current Visit: Yes Status: Acute Plan to address problem: leading into sepsis, will continue IV abx. (6) Sepsis Current Visit: Yes Status: Acute Plan to address problem: Same as above. (7) Pneumonia Current Visit: Yes Status: Acute Plan to address problem: continue with IV ABX. Subjective Date of service: 02/12/19 Principal diagnosis: AMS/Dehydration. Interval history: Patient seen/examined, resting in bed, records reviewed.Hep C ab positive, and will explain, ABN LFTs, Rhabdo still in progress, and will continue with hydration. Will check urine alkalization.Continue Lactulose, and monitor labs. Patient seen, resting in bed, NAD, labs reviewed.Will continue current management. patient seen, resting in bed, labs/records reviewed.K+ low, and replaced. Patient seen, resting in bed, labs reviewed, new ones ordered. Patient seen, resting in bed, labs reviewed, case d/c with family members at the bed side., will follow Gen surg rec to consult GI instead. will repeat labs, and coags before the procedure. Objective - Constitutional Vitals: Vital Signs - 12hr 02/12/19 02/12/19 07:58 10:00 Temperature 97.5 F L Pulse Rate 124 H Respiratory 18 20 Rate Blood Pressure 113/60 O2 Sat by Pulse 91 95 Oximetry General appearance: Present: mild distress - EENT Eyes: PERRL, EOM intact ENT: hearing intact, clear oral mucosa Ears: bilateral: normal - Neck Neck: supple, normal ROM - Respiratory Respiratory effort: normal Respiratory: bilateral: CTA - Breasts Breasts: deferred - Cardiovascular Rhythm: regular Heart Sounds: Present: S1 & S2. Absent: gallop, rub Extremities: pulses intact, No edema, normal color, Full ROM - Gastrointestinal General gastrointestinal: Present: soft, non-tender, non-distended, normal bowel sounds Rectal Exam: deferred - Genitourinary Female genitourinary: deferred - Integumentary Integumentary: clear, warm, dry - Musculoskeletal Musculoskeletal: 1, strength equal bilaterally - Neurologic Neurologic: moves all extremities - Labs CBC & Chem 7: 02/12/19 07:42 02/12/19 07:42 Labs: Abnormal lab results 02/11/19 02/12/19 02/12/19 Range/Units 19:40 07:42 07:42 WBC 3.1 L 3.6 L (4.5-11.0) K/mm3 RBC 3.27 L 3.26 L (3.65-5.03) M/mm3 Hgb 9.7 L 9.6 L (10.1-14.3) gm/dl Hct 29.3 L 29.2 L (30.3-42.9) % RDW 18.5 H 18.7 H (13.2-15.2) % Plt Count 47 L 43 L (140-440) K/mm3 Lymph # 0.4 L (1.2-5.4) K/mm3 Seg Neutrophils % 76.0 H (40.0-70.0) % Potassium 3.5 L (3.6-5.0) mmol/L Chloride 115.8 H (98-107) mmol/L Carbon Dioxide 20 L (22-30) mmol/L Glucose 172 H (65-100) mg/dL Calcium 8.2 L (8.4-10.2) mg/dL AST 53 H (5-40) units/L ALT 81 H (7-56) units/L Alkaline Phosphatase 149 H (35-129) units/L Total Protein 5.9 L (6.3-8.2) g/dL Albumin 1.8 L (3.9-5) g/dL
[2019-02-12] MEDS ORDERED: DEXTROSE 50% IN WATER (25GM) 50 ML VIAL IV PRN (17:45)
[2019-02-12] MEDS ORDERED: DEXTROSE 50% IN WATER (25GM) 50 ML SYRINGE IV ONE ×2 (17:58→18:20)
--- NOTE | 2019-02-12 18:55 | XRay Report ---
RIGHT WRIST 4 VIEWS INDICATION / CLINICAL INFORMATION: Deformed wrist, question trauma. Will not use arm. COMPARISON: None available. FINDINGS: BONES / JOINT(S): The bones are diffusely demineralized. There are mild degenerative changes involvin g the first metatarsophalangeal joint. I see no evidence of fracture or dislocation. SOFT TISSUES: There is mild soft tissue swelling dorsally. ADDITIONAL FINDINGS: None. IMPRESSION: No acute osseous abnormality. Signer Name: Julio Gutierrez MD Signed: 02/12/2019 6:51 PM Workstation Name: [id number]
--- NOTE | 2019-02-12 18:56 | XRay Report ---
RIGHT HAND 3 VIEWS INDICATION / CLINICAL INFORMATION: Deformed right hand with possible trauma. Will not use arm. COMPARISON: None available. FINDINGS: BONES / JOINT(S): There are mild degenerative changes involving the first metacarpophalangeal joint. The bones are diffusely demineralized. There is no evidence of fracture, dislocation or destructive l esion. SOFT TISSUES: No significant abnormality. ADDITIONAL FINDINGS: None. IMPRESSION: No acute abnormality. Signer Name: Julio Gutierrez MD Signed: 02/12/2019 6:52 PM Workstation Name: [id number]
[2019-02-12] MEDS: INSULIN LISPRO 100 UNIT/ML SUB-Q SCH (19:11)
[2019-02-12 21:30] LABS: Basophils % (Auto) 0.1 % (0.0-1.8); Eosinophils % (Auto) 0.9 % (0.0-4.3); Hematocrit 33.5 % (30.3-42.9); Lymphocytes # (Auto) 0.2 K/mm3 (1.2-5.4); Lymphocytes % (Auto) 8.3 % (13.4-35.0); Mean Corpuscular HGB Conc 33 % (30-34); Mean Corpuscular Volume 91 fl (79-97); Monocytes # (Auto) 0.2 K/mm3 (0.0-0.8); Monocytes % (Auto) 7.6 % (0.0-7.3); Red Blood Count 3.69 M/mm3 (3.65-5.03); Red Cell Distribution Width 18.9 % (13.2-15.2)
[2019-02-12 21:35] LABS: Platelet Count 46 K/mm3 (140-440)
[2019-02-13] MEDS: INSULIN LISPRO 100 UNIT/ML SUB-Q SCH ×5 (01:41→21:07)
[2019-02-13] MEDS: FOLIC ACID 1 MG TAB PO SCH (10:00)
[2019-02-13] MEDS: CYPROHEPTADINE 4 MG TAB PO SCH ×2 (10:16→21:07)
[2019-02-13] MEDS: THIAMINE 100 MG TAB PO SCH (10:16)
[2019-02-13] MEDS: RIFAXIMIN 550 MG TAB PO SCH ×2 (10:17→21:07)
[2019-02-13] MEDS: FLUTICASONE PROPIONATE NASAL SPRAY 16 GM NS SCH (12:02)
[2019-02-13] MEDS: DEXTROSE 10% IN WATER 1,000 ML IV SCH (12:08)
[2019-02-13] MEDS ORDERED: SODIUM CHLORIDE 0.9% 1000 ML 1,000 ML ONE (12:37)
[2019-02-13] MEDS ORDERED: D10W 500 ML IV SOLN IV SCH (14:00)
[2019-02-13] MEDS ORDERED: SODIUM CHLORIDE 0.9% 100 ML IVPB IV SCH (14:00)
--- NOTE | 2019-02-13 15:08 | Gastroenterology Consultation ---
History of Present Illness - Reason for Consult Consult date: 02/13/19 dysphagia, PEG tube placement Requesting physician: GURJIT ROWLAND - History of Present Illness This is a 67 yo female with pmh of cirrhosis 2/2 ETOH abuse/hep C, hepatic encephalopathy, alcohol related dementia, DM, and seizure disorder admitted on 02/07/2019 for AMS. Patient has been on antibiotics for UTI and pneumonia. Work up also includes CT head, which showed no acute changes but mild to moderate cerebral atrophy. GI consulted for PEG placement. She is alert but nonverbal. Unable to obtain any history. Spoke with family on the phone. It appears her mental status has been declining over the past year. Last admission in 07/2018 for AMS and treated for sepsis 2/2 UTI and hepatic encephalopathy. Medication list reviewed. Past History Past Medical History: hypertension Past Surgical History: Other (unknown) Social history: alcohol abuse Family history: no significant family history Medications and Allergies Allergies Allergy/AdvReac Type Severity Reaction Status Date / Time No Known Allergies Allergy Verified 01/06/17 23:38 Home Medications Medication Instructions Recorded Confirmed Last Taken Type Folic Acid [Folvite] 1 mg PO QDAY #30 tablet 08/12/18 02/06/19 Unknown Rx Haloperidol [Haldol] 0.5 mg PO Q6H PRN #30 tablet 08/12/18 02/06/19 Unknown Rx Lactulose [Cephulac] 20 gm PO Q12H #1 bottle 08/12/18 02/06/19 Unknown Rx Rifaximin [Xifaxan] 550 mg PO BID #60 tablet 08/12/18 02/06/19 Unknown Rx Thiamine [Vitamin B-1] 100 mg PO QDAY #30 tablet 08/12/18 02/06/19 Unknown Rx amLODIPine [Norvasc] 5 mg PO QDAY #30 tablet 08/12/18 02/06/19 Unknown Rx chlordiazePOXIDE [Librium] 25 mg PO DAILY #3 capsule 08/12/18 02/06/19 Unknown Rx ALBUTEROL NEB's [Proventil] 2.5 mg IH TID PRN 02/06/19 02/06/19 Unknown History Acetaminophen [Tylenol] 650 mg PO Q6HR PRN 02/06/19 02/06/19 Unknown History Fluticasone [Flonase] 1 spray NS QDAY 02/06/19 02/06/19 Unknown History Ipratropium/Albuterol Sulfate 1 spray IH QID 02/06/19 02/06/19 Unknown History [Combivent Respimat] Melatonin [Melatonin 10MG CAP] 10 mg PO QHS 02/06/19 02/06/19 Unknown History Active Meds: Active Medications Albuterol (Proventil) 2.5 mg IH TID PRN PRN Reason: Wheezing Cyproheptadine HCl (Periactin) 4 mg PO BID [facility] Last Admin: 02/13/19 10:16 Dose: Not Given Documented by: Dextrose (D50w (25gm) Vial) 25 gm IV PRN PRN PRN Reason: Hypoglycemia Last Admin: 02/12/19 18:22 Dose: 25 gm Documented by: Fluticasone Propionate (Flonase) 50 mcg NS QDAY [facility] Last Admin: 02/13/19 12:02 Dose: 50 mcg Documented by: Folic Acid (Folvite) 1 mg PO QDAY [facility] Last Admin: 02/13/19 10:00 Dose: Not Given Documented by: Haloperidol (Haldol) 0.5 mg PO Q6H PRN PRN Reason: Agitation Dextrose (D10w) 1,000 mls @ 125 mls/hr IV DIRECT [facility] Last Admin: 02/13/19 12:08 Dose: 125 mls/hr Documented by: Insulin Human Lispro (Humalog) 0 unit SUB-Q ACHS [facility]; Protocol Last Admin: 02/13/19 11:33 Dose: Not Given Documented by: Lorazepam (Ativan) 0.5 mg IV Q6H PRN PRN Reason: Agitation Last Admin: 02/08/19 00:57 Dose: 0.5 mg Documented by: Rifaximin (Xifaxan) 550 mg PO BID [facility] Last Admin: 02/13/19 10:17 Dose: Not Given Documented by: Thiamine HCl (Vitamin B-1) 100 mg PO QDAY [facility] Last Admin: 02/13/19 10:16 Dose: Not Given Documented by: Review of Systems - Review of Systems ROS unobtainable: due to mental status Exam - Constitutional Vital Signs: Temp Pulse Resp BP Pulse Ox 91.3 F L 60 16 88/58 96 02/13/19 04:50 02/13/19 04:22 02/13/19 10:00 02/13/19 07:58 02/13/19 10:00 General appearance: no acute distress - Neck Neck: supple - Respiratory Respiratory effort: normal - Cardiovascular Rhythm: regular Heart Sounds: Present: S1 & S2 - Gastrointestinal General gastrointestinal: Present: soft, non-tender, non-distended - Labs CBC & Chem 7: 02/12/19 20:57 02/12/19 20:57 Lab Results: Laboratory Results - last 24 hr 02/12/19 02/12/19 02/12/19 17:51 18:05 18:19 WBC RBC Hgb Hct MCV MCH MCHC RDW Plt Count Lymph % (Auto) Armstrong % (Auto) Eos % (Auto) Baso % (Auto) Lymph # Armstrong # Eos # Baso # Seg Neutrophils % Seg Neutrophils # Glucose POC Glucose < 40 L < 40 L 40 L Ammonia Prealbumin 02/12/19 02/12/19 02/12/19 18:37 20:43 20:57 WBC 2.5 L RBC 3.69 Hgb 11.0 Hct 33.5 MCV 91 MCH 30 MCHC 33 RDW 18.9 H Plt Count 46 L Lymph % (Auto) 8.3 L Armstrong % (Auto) 7.6 H Eos % (Auto) 0.9 Baso % (Auto) 0.1 Lymph # 0.2 L Armstrong # 0.2 Eos # 0.0 Baso # 0.0 Seg Neutrophils % 83.1 H Seg Neutrophils # 2.1 Glucose POC Glucose 176 H 228 H Ammonia Prealbumin 02/12/19 02/13/19 02/13/19 20:57 00:46 04:14 WBC RBC Hgb Hct MCV MCH MCHC RDW Plt Count Lymph % (Auto) Armstrong % (Auto) Eos % (Auto) Baso % (Auto) Lymph # Armstrong # Eos # Baso # Seg Neutrophils % Seg Neutrophils # Glucose 189 H POC Glucose 265 H Ammonia Prealbumin 0.044 L 02/13/19 02/13/19 02/13/19 05:51 08:03 11:37 WBC RBC Hgb Hct MCV MCH MCHC RDW Plt Count Lymph % (Auto) Armstrong % (Auto) Eos % (Auto) Baso % (Auto) Lymph # Armstrong # Eos # Baso # Seg Neutrophils % Seg Neutrophils # Glucose POC Glucose 70 88 66 L Ammonia Prealbumin 02/13/19 13:43 WBC RBC Hgb Hct MCV MCH MCHC RDW Plt Count Lymph % (Auto) Armstrong % (Auto) Eos % (Auto) Baso % (Auto) Lymph # Armstrong # Eos # Baso # Seg Neutrophils % Seg Neutrophils # Glucose POC Glucose Ammonia 83.0 H Prealbumin Assessment and Plan This is a 67 yo female with pmh of cirrhosis 2/2 ETOH abuse/hep C, hepatic ence phalopathy, alcohol related dementia, DM, and seizure disorder admitted on 02/07/2019 for AMS. Patient has been on antibiotics for UTI and pneumonia (5 days of levaquin). Work up also includes CT head, which showed no acute changes but mild to moderate cerebral atrophy. GI consulted for PEG placement. # Cirrhosis # AMS - may be multifactorial with baseline alcohol related dementia, sepsis 2/2 UTI/ pneumonia, and hepatic encephalopathy. - patient has received 5 days of levaquin. rifaximin ordered but not given due to mental status. - recommend lactulose enema. - check ammonia level. # Dysphagia # Malnutrition - evaluated by speech and appears to hold food bolus in the mouth. - Albumin at 1.7. - spoke with son on the phone regarding PEG tube placement. Discussed the nature of the procedure and risks of potential complications. Son is agreeable. - patient is hypotensive today and receiving IVF. will have to reassess to see if she is stable for sedation tomorrow. will also need to receive platelets with platelet goal above 50K prior to the procedure. - no signs of ascites on recent abdominal US.
[2019-02-13 19:53] LABS: Hemoglobin 9.3 gm/dl (10.1-14.3); Mean Corpuscular HGB Conc 33 % (30-34); Mean Corpuscular Volume 88 fl (79-97); Red Blood Count 3.17 M/mm3 (3.65-5.03); Red Cell Distribution Width 18.3 % (13.2-15.2)
[2019-02-13 20:02] LABS: Platelet Count 58 K/mm3 (140-440)
--- NOTE | 2019-02-13 20:03 | Progress Note ---
Assessment and Plan - Patient Problems (1) Acute renal failure (ARF) Current Visit: Yes Status: Acute Plan to address problem: this is pre renal azotemia, due to dehydration. (2) Dehydration Current Visit: Yes Status: Acute Plan to address problem: Same as above. (3) Hepatic encephalopathy Current Visit: Yes Status: Acute Plan to address problem: Continuje with Lactulose, check hep panel. (4) Rhabdomyolysis Current Visit: Yes Status: Acute Plan to address problem: Alkalanize the urine. (5) UTI (urinary tract infection) Current Visit: Yes Status: Acute Plan to address problem: leading into sepsis, will continue IV abx. (6) Sepsis Current Visit: Yes Status: Acute Plan to address problem: Same as above. (7) Pneumonia Current Visit: Yes Status: Acute Plan to address problem: continue with IV ABX. Subjective Date of service: 02/13/19 Principal diagnosis: AMS/Dehydration. Interval history: Patient seen/examined, resting in bed, records reviewed.Hep C ab positive, and will explain, ABN LFTs, Rhabdo still in progress, and will continue with hydration. Will check urine alkalization.Continue Lactulose, and monitor labs. Patient seen, resting in bed, NAD, labs reviewed.Will continue current management. patient seen, resting in bed, labs/records reviewed.K+ low, and replaced. Patient seen, resting in bed, labs reviewed, new ones ordered. Patient seen, resting in bed, labs reviewed, case d/c with family members at the bed side., will follow Gen surg rec to consult GI instead. will repeat labs, and coags before the procedure. Patient seen/examined, resting in bed, labs reviewed, as well as notes. Will check labs, and coags in am, in preparation for peg tube placement. BP was lower earlier, and adjusted.Xrays reviewed, of the hand/wist, consistent with DJD/demineralization. Objective - Constitutional Vitals: Vital Signs - 12hr 02/13/19 10:00 Respiratory 16 Rate O2 Sat by Pulse 96 Oximetry General appearance: Present: mild distress, cachectic - EENT Eyes: PERRL, EOM intact ENT: hearing intact, clear oral mucosa Ears: bilateral: normal - Neck Neck: supple, normal ROM - Respiratory Respiratory effort: normal Respiratory: bilateral: CTA - Breasts Breasts: deferred - Cardiovascular Rhythm: regular Heart Sounds: Present: S1 & S2. Absent: gallop, rub Extremities: pulses intact, No edema, normal color, Full ROM - Gastrointestinal General gastrointestinal: Present: soft, non-tender, non-distended, normal bowel sounds Rectal Exam: deferred - Genitourinary Female genitourinary: deferred - Integumentary Integumentary: clear, warm, dry - Musculoskeletal Musculoskeletal: 1, strength equal bilaterally - Labs CBC & Chem 7: 02/12/19 20:57 02/12/19 20:57 Labs: Abnormal lab results 02/12/19 02/12/19 02/12/19 Range/Units 20:43 20:57 20:57 WBC 2.5 L (4.5-11.0) K/mm3 RDW 18.9 H (13.2-15.2) % Plt Count 46 L (140-440) K/mm3 Lymph % (Auto) 8.3 L (13.4-35.0) % Cass % (Auto) 7.6 H (0.0-7.3) % Lymph # 0.2 L (1.2-5.4) K/mm3 Seg Neutrophils % 83.1 H (40.0-70.0) % Glucose 189 H (65-100) mg/dL POC Glucose 228 H (70-105) Ammonia (25-60) umol/L Prealbumin (0.200-0.400) g/L 02/13/19 02/13/19 02/13/19 Range/Units 00:46 04:14 11:37 WBC (4.5-11.0) K/mm3 RDW (13.2-15.2) % Plt Count (140-440) K/mm3 Lymph % (Auto) (13.4-35.0) % Cass % (Auto) (0.0-7.3) % Lymph # (1.2-5.4) K/mm3 Seg Neutrophils % (40.0-70.0) % Glucose (65-100) mg/dL POC Glucose 265 H 66 L (70-105) Ammonia (25-60) umol/L Prealbumin 0.044 L (0.200-0.400) g/L 02/13/19 02/13/19 Range/Units 13:43 16:39 WBC (4.5-11.0) K/mm3 RDW (13.2-15.2) % Plt Count (140-440) K/mm3 Lymph % (Auto) (13.4-35.0) % Cass % (Auto) (0.0-7.3) % Lymph # (1.2-5.4) K/mm3 Seg Neutrophils % (40.0-70.0) % Glucose (65-100) mg/dL POC Glucose 134 H (70-105) Ammonia 83.0 H (25-60) umol/L Prealbumin (0.200-0.400) g/L
--- NOTE | 2019-02-13 20:49 | XRay Report ---
CHEST 1 VIEW 02/13/2019 8:21 PM INDICATION / CLINICAL INFORMATION: Coarse breath sounds. COMPARISON: One view of the chest from 02/07/2019. FINDINGS: SUPPORT DEVICES: None. HEART / MEDIASTINUM: No significant abnormality. LUNGS / PLEURA: Right lower lobe opacities have progressed. The lungs are otherwise clear without a s ignificant pleural effusion. No pneumothorax. ADDITIONAL FINDINGS: No significant additional findings. IMPRESSION: Interval progression of right lower lobe opacities, likely representing pneumonia. Continued radiogra phic follow-up to resolution is recommended. Signer Name: Chaz Barton MD Signed: 02/13/2019 8:44 PM Workstation Name: [id number]
[2019-02-13 20:57] LABS: Basophils % (Manual) 0 % (0.0-1.8); Total Cells Counted 100
[2019-02-13 20:58] LABS: Ovalocytes Few; Platelet Estimate Consistent w Auto
[2019-02-13] MEDS ORDERED: DEXTROSE 10% IN WATER 1,000 ML IV SCH (21:00)
[2019-02-13] MEDS ORDERED: SODIUM CHLORIDE 0.9% 500 ML 500 ML IV ONE (23:47)
[2019-02-14 08:28] LABS: Basophils % (Auto) 0.1 % (0.0-1.8); Eosinophils % (Auto) 0.4 % (0.0-4.3); Hematocrit 27.5 % (30.3-42.9); Hemoglobin 9.3 gm/dl (10.1-14.3); Lymphocytes # (Auto) 0.4 K/mm3 (1.2-5.4); Lymphocytes % (Auto) 5.4 % (13.4-35.0); Mean Corpuscular HGB Conc 34 % (30-34); Mean Corpuscular Volume 90 fl (79-97); Monocytes # (Auto) 0.4 K/mm3 (0.0-0.8); Monocytes % (Auto) 4.9 % (0.0-7.3); Red Blood Count 3.07 M/mm3 (3.65-5.03); Red Cell Distribution Width 17.9 % (13.2-15.2)
[2019-02-14 08:35] LABS: Platelet Count 70 K/mm3 (140-440)
[2019-02-14 08:44] LABS: INR 1.47 (0.87-1.13); Partial Thromboplastin Time 35.6 Sec. (24.2-36.6)
[2019-02-14 08:50] LABS: Calcium 7.8 mg/dL (8.4-10.2)
[2019-02-14] MEDS: INSULIN LISPRO 100 UNIT/ML SUB-Q SCH ×4 (09:00→22:45)
--- NOTE | 2019-02-14 09:48 | Progress Note ---
Assessment and Plan - Patient Problems (1) Acute renal failure (ARF) Current Visit: Yes Status: Acute Plan to address problem: this is pre renal azotemia, due to dehydration. (2) Dehydration Current Visit: Yes Status: Acute Plan to address problem: Same as above. (3) Hepatic encephalopathy Current Visit: Yes Status: Acute Plan to address problem: Continuje with Lactulose, check hep panel. (4) Rhabdomyolysis Current Visit: Yes Status: Acute Plan to address problem: Alkalanize the urine. (5) UTI (urinary tract infection) Current Visit: Yes Status: Acute Plan to address problem: leading into sepsis, will continue IV abx. (6) Sepsis Current Visit: Yes Status: Acute Plan to address problem: Same as above. (7) Pneumonia Current Visit: Yes Status: Acute Plan to address problem: continue with IV ABX. Subjective Date of service: 02/14/19 Principal diagnosis: AMS/Dehydration. Interval history: Patient seen/examined, resting in bed, records reviewed.Hep C ab positive, and will explain, ABN LFTs, Rhabdo still in progress, and will continue with hydration. Will check urine alkalization.Continue Lactulose, and monitor labs. Patient seen, resting in bed, NAD, labs reviewed.Will continue current management. patient seen, resting in bed, labs/records reviewed.K+ low, and replaced. Patient seen, resting in bed, labs reviewed, new ones ordered. Patient seen, resting in bed, labs reviewed, case d/c with family members at the bed side., will follow Gen surg rec to consult GI instead. will repeat labs, and coags before the procedure. Patient seen/examined, resting in bed, labs reviewed, as well as notes. Will check labs, and coags in am, in preparation for peg tube placement. BP was lower earlier, and adjusted.Xrays reviewed, of the hand/wist, consistent with DJD/demineralization. Patient seen, resting in bed, labs reviewed, awaiting GI for the Peg tube placement. Objective - Constitutional Vitals: Vital Signs - 12hr 02/13/19 02/13/19 02/14/19 23:28 23:40 00:47 Temperature Pulse Rate 67 77 77 Respiratory 18 18 Rate Blood Pressure 62/32 69/36 Blood Pressure 92/47 [Right] O2 Sat by Pulse 92 94 99 Oximetry 09/02/14/19 02/14/19 01:11 02:38 04:22 Temperature 98.0 F Pulse Rate 80 79 81 Respiratory 16 18 18 Rate Blood Pressure 96/54 83/43 Blood Pressure 96/52 [Right] O2 Sat by Pulse 99 98 100 Oximetry 02/14/19 02/14/19 05:35 08:18 Temperature 97.9 F 97.7 F Pulse Rate 84 87 Respiratory 20 18 Rate Blood Pressure 101/54 Blood Pressure 91/51 [Right] O2 Sat by Pulse 97 96 Oximetry General appearance: Present: no acute distress - EENT Eyes: PERRL, EOM intact ENT: hearing intact, clear oral mucosa Ears: bilateral: normal - Neck Neck: supple, normal ROM - Respiratory Respiratory effort: normal Respiratory: bilateral: CTA - Breasts Breasts: deferred - Cardiovascular Rhythm: regular Heart Sounds: Present: S1 & S2. Absent: gallop, rub Extremities: pulses intact, No edema, normal color, Full ROM - Gastrointestinal General gastrointestinal: Present: soft, non-tender, non-distended, normal bowel sounds Rectal Exam: deferred - Genitourinary Female genitourinary: deferred - Integumentary Integumentary: clear, warm, dry - Musculoskeletal Musculoskeletal: 1, strength equal bilaterally - Psychiatric Psychiatric: appropriate mood/affect - Labs CBC & Chem 7: 02/14/19 08:05 02/14/19 08:05 Labs: Abnormal lab results 02/13/19 02/13/19 02/13/19 Range/Units 11:37 13:43 16:39 WBC (4.5-11.0) K/mm3 RBC (3.65-5.03) M/mm3 Hgb (10.1-14.3) gm/dl Hct (30.3-42.9) % RDW (13.2-15.2) % Plt Count (140-440) K/mm3 Lymph % (Auto) (13.4-35.0) % Lymph # (1.2-5.4) K/mm3 Seg Neutrophils % (40.0-70.0) % Seg Neuts % (Manual) (40.0-70.0) % Lymphocytes % (Manual) (13.4-35.0) % Lymphocytes # (Manual) (1.2-5.4) K/mm3 PT (12.2-14.9) Sec. INR (0.87-1.13) Chloride (98-107) mmol/L Carbon Dioxide (22-30) mmol/L Creatinine (0.7-1.2) mg/dL POC Glucose 66 L 134 H (70-105) Calcium (8.4-10.2) mg/dL Ammonia 83.0 H (25-60) umol/L 02/13/19 02/13/19 02/14/19 Range/Units 19:27 20:17 05:25 WBC 3.2 L (4.5-11.0) K/mm3 RBC 3.17 L (3.65-5.03) M/mm3 Hgb 9.3 L (10.1-14.3) gm/dl Hct 28.0 L (30.3-42.9) % RDW 18.3 H (13.2-15.2) % Plt Count 58 L (140-440) K/mm3 Lymph % (Auto) (13.4-35.0) % Lymph # (1.2-5.4) K/mm3 Seg Neutrophils % (40.0-70.0) % Seg Neuts % (Manual) 84.0 H (40.0-70.0) % Lymphocytes % (Manual) 11.0 L (13.4-35.0) % Lymphocytes # (Manual) 0.4 L (1.2-5.4) K/mm3 PT (12.2-14.9) Sec. INR (0.87-1.13) Chloride (98-107) mmol/L Carbon Dioxide (22-30) mmol/L Creatinine (0.7-1.2) mg/dL POC Glucose 156 H 143 H (70-105) Calcium (8.4-10.2) mg/dL Ammonia (25-60) umol/L 02/14/19 02/14/19 02/14/19 Range/Units 08:05 08:05 08:05 WBC (4.5-11.0) K/mm3 RBC 3.07 L (3.65-5.03) M/mm3 Hgb 9.3 L (10.1-14.3) gm/dl Hct 27.5 L (30.3-42.9) % RDW 17.9 H (13.2-15.2) % Plt Count 70 L (140-440) K/mm3 Lymph % (Auto) 5.4 L (13.4-35.0) % Lymph # 0.4 L (1.2-5.4) K/mm3 Seg Neutrophils % 89.2 H (40.0-70.0) % Seg Neuts % (Manual) (40.0-70.0) % Lymphocytes % (Manual) (13.4-35.0) % Lymphocytes # (Manual) (1.2-5.4) K/mm3 PT 17.5 H (12.2-14.9) Sec. INR 1.47 H (0.87-1.13) Chloride 109.8 H (98-107) mmol/L Carbon Dioxide 21 L (22-30) mmol/L Creatinine 1.4 H D (0.7-1.2) mg/dL POC Glucose (70-105) Calcium 7.8 L (8.4-10.2) mg/dL Ammonia (25-60) umol/L
[2019-02-14] MEDS: RIFAXIMIN 550 MG TAB PO SCH ×2 (11:15→22:46)
[2019-02-14] MEDS: THIAMINE 100 MG TAB PO SCH (11:16)
[2019-02-14] MEDS: CYPROHEPTADINE 4 MG TAB PO SCH ×2 (11:16→22:45)
[2019-02-14] MEDS: FOLIC ACID 1 MG TAB PO SCH (11:16)
[2019-02-14] MEDS: FLUTICASONE PROPIONATE NASAL SPRAY 16 GM NS SCH (11:29)
[2019-02-14] MEDS: cefTRIAXone/NS 1 GM/50 ML 1 GM/50 ML BAG IV SCH (11:32)
--- NOTE | 2019-02-14 11:32 | Gastroenterology Progress Note ---
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 Patient has been on antibiotics for UTI and pneumonia (5 days of levaquin). Work up also includes CT head, which showed no acute changes but mild to moderate cerebral atrophy. GI consulted for PEG placement. # Cirrhosis # AMS- may be multifactorial with baseline alcohol related dementia, sepsis 2/2 UTI/pneumonia, and hepatic encephalopathy #dysphagia/malnutrition/PEG placement -afebrile -WBC WNL -H/H 9.3/27.5-stable- no active signs of bleeding -plt 70, INR 1.47 -LFTs-stable -ammonia 83 (has not been receiving lactulose/rifaximin due to AMS per nursing ) - evaluated by speech and appears to hold food bolus in the mouth. - no signs of ascites on recent abdominal US - will consider PEG placement based on clinical course once respiratory status has improved (currently on antibiotics for pneumonia; will need pulmonary clearance) - spoke with son on the phone regarding PEG tube placement. Discussed the nature of the procedure and risks of potential complications. Son is agreeable. -recommend alternative method of nutrition for now with TFs via Dobhoff placement -give lactulose enema now then resume via PO along with rifaximin -continue to trend labs and supportive care -will follow Subjective Date of service: 02/14/19 Principal diagnosis: PEG placement Interval history: No acute distress. Objective - Constitutional Vitals: Temp Pulse Resp BP Pulse Ox 97.7 F 87 18 101/54 96 02/14/19 08:18 02/14/19 08:18 02/14/19 08:18 02/14/19 08:18 02/14/19 08:18 General appearance: no acute distress, other (nonverbal) - Respiratory Respiratory effort: normal Respiratory: bilateral: rhonchi - Cardiovascular Rhythm: regular - Gastrointestinal General gastrointestinal: Present: soft, non-distended, normal bowel sounds - Labs CBC & Chem 7: 02/14/19 08:05 02/14/19 08:05 Labs: Laboratory Results - last 24 hr 02/13/19 02/13/19 02/13/19 11:37 13:43 16:39 WBC RBC Hgb Hct MCV MCH MCHC RDW Plt Count Lymph % (Auto) Josephine % (Auto) Eos % (Auto) Baso % (Auto) Lymph # Josephine # Eos # Baso # Add Manual Diff Total Counted Seg Neutrophils % Seg Neuts % (Manual) Band Neutrophils % Lymphocytes % (Manual) Reactive Lymphs % (Man) Monocytes % (Manual) Eosinophils % (Manual) Basophils % (Manual) Metamyelocytes % Myelocytes % Promyelocytes % Blast Cells % Nucleated RBC % Seg Neutrophils # Seg Neutrophils # Man Band Neutrophils # Lymphocytes # (Manual) Abs React Lymphs (Man) Monocytes # (Manual) Eosinophils # (Manual) Basophils # (Manual) Metamyelocytes # Myelocytes # Promyelocytes # Blast Cells # WBC Morphology Hypersegmented Neuts Hyposegmented Neuts Hypogranular Neuts Smudge Cells Toxic Granulation Toxic Vacuolation Dohle Bodies Pelger-Huet Anomaly Sheila Rods Platelet Estimate Clumped Platelets Plt Clumps, EDTA Large Platelets Giant Platelets Platelet Satelliting Plt Morphology Comment RBC Morphology Dimorphic RBCs Polychromasia Hypochromasia Poikilocytosis Anisocytosis Microcytosis Macrocytosis Spherocytes Pappenheimer Bodies Sickle Cells Target Cells Tear Drop Cells Ovalocytes Helmet Cells [place] Bodies [place] Rings [place] Cells Bite Cells Crenated Cell Elliptocytes Acanthocytes (Spur) Rouleaux Hemoglobin C Crystals Schistocytes Malaria parasites [place] Bodies Hem Pathologist Commnt PT INR APTT Sodium Potassium Chloride Carbon Dioxide Anion Gap BUN Creatinine Estimated GFR BUN/Creatinine Ratio Glucose POC Glucose 66 L 134 H Calcium Ammonia 83.0 H Total Creatine Kinase 02/13/19 02/13/19 02/14/19 19:27 20:17 05:25 WBC 3.2 L RBC 3.17 L Hgb 9.3 L Hct 28.0 L MCV 88 MCH 29 MCHC 33 RDW 18.3 H Plt Count 58 L Lymph % (Auto) Josephine % (Auto) Eos % (Auto) Baso % (Auto) Lymph # Josephine # Eos # Baso # Add Manual Diff Complete Total Counted 100 Seg Neutrophils % Seg Neuts % (Manual) 84.0 H Band Neutrophils % 0 Lymphocytes % (Manual) 11.0 L Reactive Lymphs % (Man) 0 Monocytes % (Manual) 1.0 Eosinophils % (Manual) 2.0 Basophils % (Manual) 0 Metamyelocytes % 2.0 Myelocytes % 0 Promyelocytes % 0 Blast Cells % 0 Nucleated RBC % Not Reportable Seg Neutrophils # Seg Neutrophils # Man 2.7 Band Neutrophils # 0.0 Lymphocytes # (Manual) 0.4 L Abs React Lymphs (Man) 0.0 Monocytes # (Manual) 0.0 Eosinophils # (Manual) 0.1 Basophils # (Manual) 0.0 Metamyelocytes # 0.1 Myelocytes # 0.0 Promyelocytes # 0.0 Blast Cells # 0.0 WBC Morphology Not Reportable Hypersegmented Neuts Not Reportable Hyposegmented Neuts Not Reportable Hypogranular Neuts Not Reportable Smudge Cells Not Reportable Toxic Granulation Not Reportable Toxic Vacuolation Not Reportable Dohle Bodies Not Reportable Pelger-Huet Anomaly Not Reportable Sheila Rods Not Reportable Platelet Estimate Consistent w auto Clumped Platelets Not Reportable Plt Clumps, EDTA Not Reportable Large Platelets Not Reportable Giant Platelets Not Reportable Platelet Satelliting Not Reportable Plt Morphology Comment Not Reportable RBC Morphology Not Reportable Dimorphic RBCs Not Reportable Polychromasia Not Reportable Hypochromasia Not Reportable Poikilocytosis Not Reportable Anisocytosis Not Reportable Microcytosis Not Reportable Macrocytosis Not Reportable Spherocytes Not Reportable Pappenheimer Bodies Not Reportable Sickle Cells Not Reportable Target Cells Not Reportable Tear Drop Cells Not Reportable Ovalocytes Few Helmet Cells Not Reportable [place] Bodies Not Reportable [place] Rings Not Reportable [place] Cells Not Reportable Bite Cells Not Reportable Crenated Cell Not Reportable Elliptocytes Few Acanthocytes (Spur) Not Reportable Rouleaux Not Reportable Hemoglobin C Crystals Not Reportable Schistocytes Not Reportable Malaria parasites Not Reportable [place] Bodies Not Reportable Hem Pathologist Commnt No PT INR APTT Sodium Potassium Chloride Carbon Dioxide Anion Gap BUN Creatinine Estimated GFR BUN/Creatinine Ratio Glucose POC Glucose 156 H 143 H Calcium Ammonia Total Creatine Kinase 02/14/19 02/14/19 02/14/19 08:05 08:05 08:05 WBC 7.7 RBC 3.07 L Hgb 9.3 L Hct 27.5 L MCV 90 MCH 30 MCHC 34 RDW 17.9 H Plt Count 70 L Lymph % (Auto) 5.4 L Josephine % (Auto) 4.9 Eos % (Auto) 0.4 Baso % (Auto) 0.1 Lymph # 0.4 L Josephine # 0.4 Eos # 0.0 Baso # 0.0 Add Manual Diff Total Counted Seg Neutrophils % 89.2 H Seg Neuts % (Manual) Band Neutrophils % Lymphocytes % (Manual) Reactive Lymphs % (Man) Monocytes % (Manual) Eosinophils % (Manual) Basophils % (Manual) Metamyelocytes % Myelocytes % Promyelocytes % Blast Cells % Nucleated RBC % Seg Neutrophils # 6.9 Seg Neutrophils # Man Band Neutrophils # Lymphocytes # (Manual) Abs React Lymphs (Man) Monocytes # (Manual) Eosinophils # (Manual) Basophils # (Manual) Metamyelocytes # Myelocytes # Promyelocytes # Blast Cells # WBC Morphology Hypersegmented Neuts Hyposegmented Neuts Hypogranular Neuts Smudge Cells Toxic Granulation Toxic Vacuolation Dohle Bodies Pelger-Huet Anomaly Sheila Rods Platelet Estimate Clumped Platelets Plt Clumps, EDTA Large Platelets Giant Platelets Platelet Satelliting Plt Morphology Comment RBC Morphology Dimorphic RBCs Polychromasia Hypochromasia Poikilocytosis Anisocytosis Microcytosis Macrocytosis Spherocytes Pappenheimer Bodies Sickle Cells Target Cells Tear Drop Cells Ovalocytes Helmet Cells [place] Bodies [place] Rings [place] Cells Bite Cells Crenated Cell Elliptocytes Acanthocytes (Spur) Rouleaux Hemoglobin C Crystals Schistocytes Malaria parasites [place] Bodies Hem Pathologist Commnt PT 17.5 H INR 1.47 H APTT 35.6 Sodium 141 Potassium 3.6 Chloride 109.8 H Carbon Dioxide 21 L Anion Gap 14 BUN 16 Creatinine 1.4 H D Estimated GFR 46 BUN/Creatinine Ratio 11 Glucose 77 POC Glucose Calcium 7.8 L Ammonia Total Creatine Kinase 118 02/14/19 08:28 WBC RBC Hgb Hct MCV MCH MCHC RDW Plt Count Lymph % (Auto) Josephine % (Auto) Eos % (Auto) Baso % (Auto) Lymph # Josephine # Eos # Baso # Add Manual Diff Total Counted Seg Neutrophils % Seg Neuts % (Manual) Band Neutrophils % Lymphocytes % (Manual) Reactive Lymphs % (Man) Monocytes % (Manual) Eosinophils % (Manual) Basophils % (Manual) Metamyelocytes % Myelocytes % Promyelocytes % Blast Cells % Nucleated RBC % Seg Neutrophils # Seg Neutrophils # Man Band Neutrophils # Lymphocytes # (Manual) Abs React Lymphs (Man) Monocytes # (Manual) Eosinophils # (Manual) Basophils # (Manual) Metamyelocytes # Myelocytes # Promyelocytes # Blast Cells # WBC Morphology Hypersegmented Neuts Hyposegmented Neuts Hypogranular Neuts Smudge Cells Toxic Granulation Toxic Vacuolation Dohle Bodies Pelger-Huet Anomaly Sheila Rods Platelet Estimate Clumped Platelets Plt Clumps, EDTA Large Platelets Giant Platelets Platelet Satelliting Plt Morphology Comment RBC Morphology Dimorphic RBCs Polychromasia Hypochromasia Poikilocytosis Anisocytosis Microcytosis Macrocytosis Spherocytes Pappenheimer Bodies Sickle Cells Target Cells Tear Drop Cells Ovalocytes Helmet Cells [place] Bodies [place] Rings [place] Cells Bite Cells Crenated Cell Elliptocytes Acanthocytes (Spur) Rouleaux Hemoglobin C Crystals Schistocytes Malaria parasites [place] Bodies Hem Pathologist Commnt PT INR APTT Sodium Potassium Chloride Carbon Dioxide Anion Gap BUN Creatinine Estimated GFR BUN/Creatinine Ratio Glucose POC Glucose 79 Calcium Ammonia Total Creatine Kinase
[2019-02-14] MEDS: LACTULOSE 20 GM/30 ML ORAL LIQD PO SCH ×2 (12:00→18:00)
[2019-02-14] MEDS ORDERED: LACTULOSE ENEMA 1000 ML PR SCH (13:00)
--- NOTE | 2019-02-14 14:42 | XRay Report ---
ABDOMEN 1 VIEW(S) INDICATION / CLINICAL INFORMATION: felisha tube placement. COMPARISON: None available. FINDINGS: TUBES / LINES: The Dobbhoff tube terminates in a right lower lobe bronchus BOWEL GAS PATTERN: No significant abnormality. FREE AIR / EXTRALUMINAL GAS: None seen. ADDITIONAL FINDINGS: No significant additional findings. IMPRESSION: The Dobbhoff tube terminates in a right lower lobe bronchus. Replacement is recommended. Signer Name: Seng Varela Jr, MD Signed: 02/14/2019 2:37 PM Workstation Name: [id number]
--- NOTE | 2019-02-14 17:36 | Consultation ---
History of Present Illness Consult date: 02/14/19 Reason for consult: dyspnea, pneumonia History of present illness: PULMONARY AND CRITICAL CARE CONSULTAT ION. DR. SANCHEZ THANK YOU FOR ASKING US TO PARTICIPATE IN THE CARE OF THIS PATIENT. The patient is a 68-year-old female presenting with a chief complaint of altered mental status. The patient is a [facility] the patient is normally interactive with the nurses although nonverbal but her interaction has decreased over the past 3 days. Staff also reports the patient is not eating or drinking over the past 3 days. Patient was found to be febrile to 102.3F by EMS. The patient is nonverbal and does not answer questions. The patient will open her eyes with tactile stimulation .Other w/up , revealed, UTI, patient started on IV ABX.PLT is low, ammonia level high, treated with lactulose. She was admitted with AMS/sepsis, due to UTI, and was quite dehydrated.She was hydrated. PLT low at 31,000, etiology, unknown at this time. Patients chest xray showing right lower lobe infiltrate. Patient s blood gases reported POC ABG pH 7.271 (7.35-7.45) L 02/14/19 15:34 POC ABG pCO2 49.0 (35-45) H 02/14/19 15:34 POC ABG pO2 192 (80-105) H 02/14/19 15:34 POC ABG HCO3 22.6 (22-26 mml/L) 02/14/19 15:34 POC ABG Total CO2 24 (23-27mmol/L) 02/14/19 15:34 POC ABG O2 Sat 100 02/14/19 15:34 Patient is in hypercapnic respiratory failure. Placing the patient on BIPAP 16/6, rate 16, FIO2 40%. Repeating blood gases. Placing her on albuterol/atrovent aerosol treatments q 6 hours prn for shortness of breath. Brovanna/Budesonide aerosol treatments q 12 hours. Recommend to add also zithromax . Patients smoking and alcohol history not known at this time. Patient is not candidate for general anesthesia at this time. Patient needed treated for pneumonia,UTI, sepsis and respiratory failure and for thrombocytopenis, if those conditions improved, then considered for PEG placement. Past History Past Medical History: hypertension Past Surgical History: Other (unknown) Family history: no significant family history Medications and Allergies Allergies Allergy/AdvReac Type Severity Reaction Status Date / Time No Known Allergies Allergy Verified 01/06/17 23:38 Home Medications Medication Instructions Recorded Confirmed Last Taken Type Folic Acid [Folvite] 1 mg PO QDAY #30 tablet 08/12/18 02/06/19 Unknown Rx Haloperidol [Haldol] 0.5 mg PO Q6H PRN #30 tablet 08/12/18 02/06/19 Unknown Rx Lactulose [Cephulac] 20 gm PO Q12H #1 bottle 08/12/18 02/06/19 Unknown Rx Rifaximin [Xifaxan] 550 mg PO BID #60 tablet 08/12/18 02/06/19 Unknown Rx Thiamine [Vitamin B-1] 100 mg PO QDAY #30 tablet 08/12/18 02/06/19 Unknown Rx amLODIPine [Norvasc] 5 mg PO QDAY #30 tablet 08/12/18 02/06/19 Unknown Rx chlordiazePOXIDE [Librium] 25 mg PO DAILY #3 capsule 08/12/18 02/06/19 Unknown Rx ALBUTEROL NEB's [Proventil] 2.5 mg IH TID PRN 02/06/19 02/06/19 Unknown History Acetaminophen [Tylenol] 650 mg PO Q6HR PRN 02/06/19 02/06/19 Unknown History Fluticasone [Flonase] 1 spray NS QDAY 02/06/19 02/06/19 Unknown History Ipratropium/Albuterol Sulfate 1 spray IH QID 02/06/19 02/06/19 Unknown History [Combivent Respimat] Melatonin [Melatonin 10MG CAP] 10 mg PO QHS 02/06/19 02/06/19 Unknown History Active Meds: Active Medications Albuterol (Proventil) 2.5 mg IH TID PRN PRN Reason: Wheezing Cyproheptadine HCl (Periactin) 4 mg PO BID [facility] Last Admin: 02/14/19 11:16 Dose: Not Given Documented by: Dextrose (D50w (25gm) Vial) 25 gm IV PRN PRN PRN Reason: Hypoglycemia Last Admin: 02/12/19 18:22 Dose: 25 gm Documented by: Fluticasone Propionate (Flonase) 50 mcg NS QDAY [facility] Last Admin: 02/14/19 11:29 Dose: 50 mcg Documented by: Folic Acid (Folvite) 1 mg PO QDAY [facility] Last Admin: 02/14/19 11:16 Dose: Not Given Documented by: Haloperidol (Haldol) 0.5 mg PO Q6H PRN PRN Reason: Agitation Dextrose (D10w) 1,000 mls @ 150 mls/hr IV DIRECT [facility] Last Admin: 02/13/19 21:07 Dose: 150 mls/hr Documented by: Ceftriaxone Sodium (Rocephin/Ns 1 Gm/50 Ml) 1 gm in 50 mls @ 100 mls/hr IV Q24HR [facility]; Protocol Last Admin: 02/14/19 11:32 Dose: 100 mls/hr Documented by: Insulin Human Lispro (Humalog) 0 unit SUB-Q ACHS [facility]; Protocol Last Admin: 02/14/19 09:00 Dose: Not Given Documented by: Lactulose (Cephulac) 200 gm NC ONCE [facility]NIE Lactulose (Cephulac) 20 gm PO Q6HR [facility] Rifaximin (Xifaxan) 550 mg PO BID [facility] Last Admin: 02/14/19 11:15 Dose: Not Given Documented by: Thiamine HCl (Vitamin B-1) 100 mg PO QDAY [facility] Last Admin: 02/14/19 11:16 Dose: Not Given Documented by: Review of Systems All systems: negative Physical Examination Vital signs: Vital Signs Temp Pulse Resp BP Pulse Ox 100.5 F H 117 H 15 116/74 98 02/06/19 11:02 02/06/19 11:02 02/06/19 11:02 02/06/19 11:02 02/06/19 11:02 General appearance: lethargic, appears uncomfortable, other (Mild to moderate shortness of breath.) Eyes: non-icteric ENT: oropharynx moist Neck: supple, no JVD Effort: mildly labored Ascultation: Right: rhonchi Cardiovascular: regular rate and rhythm Gastrointestinal: normoactive bowel sounds, soft, non-tender Integumentary: normal Extremities: no cyanosis, no edema Musculoskeletal: no deformities unable to assess other (Unable toassess due to mental status.) Results - Laboratory Findings CBC and BMP: 02/14/19 08:05 02/14/19 08:05 ABG POC ABG pH 7.271 (7.35-7.45) L 02/14/19 15:34 POC ABG pCO2 49.0 (35-45) H 02/14/19 15:34 POC ABG pO2 192 (80-105) H 02/14/19 15:34 POC ABG HCO3 22.6 (22-26 mml/L) 02/14/19 15:34 POC ABG Total CO2 24 (23-27mmol/L) 02/14/19 15:34 POC ABG O2 Sat 100 02/14/19 15:34 PT/INR, D-dimer PT 17.5 Sec. (12.2-14.9) H 02/14/19 08:05 INR 1.47 (0.87-1.13) H 02/14/19 08:05 Abnormal lab findings: Abnormal Labs 02/06/19 02/06/19 02/06/19 11:50 11:50 11:50 WBC 12.9 H RBC Hgb Hct RDW 18.8 H Plt Count 32 L Lymph % (Auto) [place] % (Auto) Lymph # Seg Neutrophils % Seg Neuts % (Manual) 84.0 H Lymphocytes % (Manual) 5.0 L Monocytes % (Manual) Eosinophils % (Manual) Seg Neutrophils # Man 10.8 H Lymphocytes # (Manual) 0.6 L Eosinophils # (Manual) PT 15.7 H INR 1.28 H APTT POC ABG pH POC ABG pCO2 POC ABG pO2 Sodium 164 H* Potassium 5.7 H Chloride 127.7 H Carbon Dioxide 20 L BUN 70 H Creatinine 2.8 H Glucose POC Glucose Lactic Acid Calcium Total Bilirubin 1.50 H AST 211 H ALT 252 H Alkaline Phosphatase 246 H Ammonia Total Creatine Kinase 1708 H CK-MB (CK-2) 9.5 H Troponin T 0.114 H* Total Protein Albumin 2.4 L Prealbumin HDL Cholesterol 39 L Vitamin B12 TSH Urine pH Urine WBC (Auto) Hep Bs Antibody, Quant Hepatitis C Antibody 02/06/19 02/06/19 02/06/19 11:50 11:50 11:50 WBC RBC Hgb Hct RDW Plt Count Lymph % (Auto) [place] % (Auto) Lymph # Seg Neutrophils % Seg Neuts % (Manual) Lymphocytes % (Manual) Monocytes % (Manual) Eosinophils % (Manual) Seg Neutrophils # Man Lymphocytes # (Manual) Eosinophils # (Manual) PT INR APTT POC ABG pH POC ABG pCO2 POC ABG pO2 Sodium Potassium Chloride Carbon Dioxide BUN Creatinine Glucose POC Glucose Lactic Acid 3.10 H* Calcium Total Bilirubin AST ALT Alkaline Phosphatase Ammonia 65.0 H Total Creatine Kinase CK-MB (CK-2) Troponin T Total Protein Albumin Prealbumin HDL Cholesterol Vitamin B12 TSH 8.460 H Urine pH Urine WBC (Auto) Hep Bs Antibody, Quant Hepatitis C Antibody 02/06/19 02/06/19 02/06/19 12:45 12:45 20:23 WBC RBC Hgb Hct RDW Plt Count Lymph % (Auto) [place] % (Auto) Lymph # Seg Neutrophils % Seg Neuts % (Manual) Lymphocytes % (Manual) Monocytes % (Manual) Eosinophils % (Manual) Seg Neutrophils # Man Lymphocytes # (Manual) Eosinophils # (Manual) PT 17.4 H INR 1.46 H APTT 41.9 H POC ABG pH POC ABG pCO2 POC ABG pO2 Sodium 165 H* Potassium 5.3 H Chloride 130.8 H Carbon Dioxide 21 L BUN 70 H Creatinine 2.8 H Glucose POC Glucose Lactic Acid 3.00 H* Calcium Total Bilirubin 1.50 H AST 211 H ALT 248 H Alkaline Phosphatase 241 H Ammonia Total Creatine Kinase 1906 H CK-MB (CK-2) 12.6 H Troponin T 0.135 H* Total Protein Albumin 2.5 L Prealbumin HDL Cholesterol Vitamin B12 TSH Urine pH Urine WBC (Auto) Hep Bs Antibody, Quant Hepatitis C Antibody 02/06/19 02/07/19 02/07/19 Unknown 10:31 10:31 WBC RBC Hgb Hct RDW Plt Count Lymph % (Auto) [place] % (Auto) Lymph # Seg Neutrophils % Seg Neuts % (Manual) Lymphocytes % (Manual) Monocytes % (Manual) Eosinophils % (Manual) Seg Neutrophils # Man Lymphocytes # (Manual) Eosinophils # (Manual) PT INR APTT POC ABG pH POC ABG pCO2 POC ABG pO2 Sodium 166 H* Potassium Chloride 134.7 H Carbon Dioxide 20 L BUN 68 H Creatinine 2.0 H Glucose POC Glucose Lactic Acid Calcium Total Bilirubin AST 150 H ALT 191 H Alkaline Phosphatase 204 H Ammonia 62.0 H Total Creatine Kinase CK-MB (CK-2) Troponin T Total Protein Albumin 2.3 L Prealbumin HDL Cholesterol Vitamin B12 TSH Urine pH 8.0 H Urine WBC (Auto) 58.0 H Hep Bs Antibody, Quant Hepatitis C Antibody 02/07/19 02/07/19 02/08/19 10:31 21:02 04:26 WBC RBC 3.50 L 3.39 L Hgb Hct RDW 18.8 H 19.5 H 19.5 H Plt Count 31 L 33 L 35 L Lymph % (Auto) 9.5 L 10.2 L [place] % (Auto) Lymph # 0.7 L 0.7 L Seg Neutrophils % 82.7 H 80.8 H Seg Neuts % (Manual) Lymphocytes % (Manual) Monocytes % (Manual) Eosinophils % (Manual) Seg Neutrophils # Man Lymphocytes # (Manual) Eosinophils # (Manual) PT INR APTT POC ABG pH POC ABG pCO2 POC ABG pO2 Sodium Potassium Chloride Carbon Dioxide BUN Creatinine Glucose POC Glucose Lactic Acid Calcium Total Bilirubin AST ALT Alkaline Phosphatase Ammonia Total Creatine Kinase CK-MB (CK-2) Troponin T Total Protein Albumin Prealbumin HDL Cholesterol Vitamin B12 TSH Urine pH Urine WBC (Auto) Hep Bs Antibody, Quant Hepatitis C Antibody 02/08/19 02/08/19 02/08/19 04:26 04:26 04:26 WBC RBC Hgb Hct RDW Plt Count Lymph % (Auto) [place] % (Auto) Lymph # Seg Neutrophils % Seg Neuts % (Manual) Lymphocytes % (Manual) Monocytes % (Manual) Eosinophils % (Manual) Seg Neutrophils # Man Lymphocytes # (Manual) Eosinophils # (Manual) PT INR APTT POC ABG pH POC ABG pCO2 POC ABG pO2 Sodium Potassium Chloride Carbon Dioxide BUN Creatinine Glucose POC Glucose Lactic Acid Calcium Total Bilirubin AST ALT Alkaline Phosphatase Ammonia Total Creatine Kinase CK-MB (CK-2) Troponin T Total Protein Albumin Prealbumin HDL Cholesterol Vitamin B12 1491 H TSH Urine pH Urine WBC (Auto) Hep Bs Antibody, Quant <5 L Hepatitis C Antibody Reactive A 02/08/19 02/08/19 02/08/19 04:26 04:26 19:12 WBC RBC 3.54 L Hgb Hct RDW 19.2 H Plt Count 41 L Lymph % (Auto) [place] % (Auto) Lymph # Seg Neutrophils % Seg Neuts % (Manual) 86.0 H Lymphocytes % (Manual) 6.0 L Monocytes % (Manual) Eosinophils % (Manual) 5.0 H Seg Neutrophils # Man Lymphocytes # (Manual) 0.4 L Eosinophils # (Manual) PT INR APTT POC ABG pH POC ABG pCO2 POC ABG pO2 Sodium 164 H* Potassium Chloride 135.7 H Carbon Dioxide 21 L BUN 59 H Creatinine 1.8 H Glucose 107 H POC Glucose Lactic Acid Calcium Total Bilirubin AST 112 H ALT 155 H Alkaline Phosphatase 185 H Ammonia 76.0 H Total Creatine Kinase 704 H CK-MB (CK-2) Troponin T Total Protein Albumin 2.1 L Prealbumin HDL Cholesterol Vitamin B12 TSH Urine pH Urine WBC (Auto) Hep Bs Antibody, Quant Hepatitis C Antibody 02/09/19 02/10/19 02/10/19 19:33 03:56 03:56 WBC RBC 3.34 L Hgb 9.8 L Hct RDW 19.6 H Plt Count 43 L Lymph % (Auto) [place] % (Auto) Lymph # Seg Neutrophils % Seg Neuts % (Manual) Lymphocytes % (Manual) Monocytes % (Manual) 9.0 H Eosinophils % (Manual) Seg Neutrophils # Man Lymphocytes # (Manual) Eosinophils # (Manual) PT INR APTT POC ABG pH POC ABG pCO2 POC ABG pO2 Sodium 156 H Potassium 3.3 L Chloride 128.7 H Carbon Dioxide BUN 34 H Creatinine Glucose 155 H POC Glucose Lactic Acid Calcium Total Bilirubin AST 59 H ALT 107 H Alkaline Phosphatase 159 H Ammonia 65.0 H Total Creatine Kinase 262 H CK-MB (CK-2) Troponin T Total Protein 6.2 L Albumin 2.0 L Prealbumin HDL Cholesterol Vitamin B12 TSH Urine pH Urine WBC (Auto) Hep Bs Antibody, Quant Hepatitis C Antibody 02/10/19 02/11/19 02/12/19 19:37 19:40 07:42 WBC 3.1 L 3.6 L RBC 3.05 L 3.27 L 3.26 L Hgb 9.1 L 9.7 L 9.6 L Hct 27.8 L 29.3 L 29.2 L RDW 18.8 H 18.5 H 18.7 H Plt Count 51 L 47 L 43 L Lymph % (Auto) [place] % (Auto) Lymph # 0.4 L Seg Neutrophils % 76.0 H Seg Neuts % (Manual) Lymphocytes % (Manual) 9.0 L Monocytes % (Manual) 9.0 H Eosinophils % (Manual) 12.0 H Seg Neutrophils # Man Lymphocytes # (Manual) 0.4 L Eosinophils # (Manual) 0.5 H PT INR APTT POC ABG pH POC ABG pCO2 POC ABG pO2 Sodium Potassium Chloride Carbon Dioxide BUN Creatinine Glucose POC Glucose Lactic Acid Calcium Total Bilirubin AST ALT Alkaline Phosphatase Ammonia Total Creatine Kinase CK-MB (CK-2) Troponin T Total Protein Albumin Prealbumin HDL Cholesterol Vitamin B12 TSH Urine pH Urine WBC (Auto) Hep Bs Antibody, Quant Hepatitis C Antibody 02/12/19 02/12/19 02/12/19 07:42 17:51 18:05 WBC RBC Hgb Hct RDW Plt Count Lymph % (Auto) [place] % (Auto) Lymph # Seg Neutrophils % Seg Neuts % (Manual) Lymphocytes % (Manual) Monocytes % (Manual) Eosinophils % (Manual) Seg Neutrophils # Man Lymphocytes # (Manual) Eosinophils # (Manual) PT INR APTT POC ABG pH POC ABG pCO2 POC ABG pO2 Sodium Potassium 3.5 L Chloride 115.8 H Carbon Dioxide 20 L BUN Creatinine Glucose 172 H POC Glucose < 40 L < 40 L Lactic Acid Calcium 8.2 L Total Bilirubin AST 53 H ALT 81 H Alkaline Phosphatase 149 H Ammonia Total Creatine Kinase CK-MB (CK-2) Troponin T Total Protein 5.9 L Albumin 1.8 L Prealbumin HDL Cholesterol Vitamin B12 TSH Urine pH Urine WBC (Auto) Hep Bs Antibody, Quant Hepatitis C Antibody 02/12/19 02/12/19 02/12/19 18:19 18:37 20:43 WBC RBC Hgb Hct RDW Plt Count Lymph % (Auto) [place] % (Auto) Lymph # Seg Neutrophils % Seg Neuts % (Manual) Lymphocytes % (Manual) Monocytes % (Manual) Eosinophils % (Manual) Seg Neutrophils # Man Lymphocytes # (Manual) Eosinophils # (Manual) PT INR APTT POC ABG pH POC ABG pCO2 POC ABG pO2 Sodium Potassium Chloride Carbon Dioxide BUN Creatinine Glucose POC Glucose 40 L 176 H 228 H Lactic Acid Calcium Total Bilirubin AST ALT Alkaline Phosphatase Ammonia Total Creatine Kinase CK-MB (CK-2) Troponin T Total Protein Albumin Prealbumin HDL Cholesterol Vitamin B12 TSH Urine pH Urine WBC (Auto) Hep Bs Antibody, Quant Hepatitis C Antibody 02/12/19 02/12/19 02/13/19 20:57 20:57 00:46 WBC 2.5 L RBC Hgb Hct RDW 18.9 H Plt Count 46 L Lymph % (Auto) 8.3 L [place] % (Auto) 7.6 H Lymph # 0.2 L Seg Neutrophils % 83.1 H Seg Neuts % (Manual) Lymphocytes % (Manual) Monocytes % (Manual) Eosinophils % (Manual) Seg Neutrophils # Man Lymphocytes # (Manual) Eosinophils # (Manual) PT INR APTT POC ABG pH POC ABG pCO2 POC ABG pO2 Sodium Potassium Chloride Carbon Dioxide BUN Creatinine Glucose 189 H POC Glucose 265 H Lactic Acid Calcium Total Bilirubin AST ALT Alkaline Phosphatase Ammonia Total Creatine Kinase CK-MB (CK-2) Troponin T Total Protein Albumin Prealbumin HDL Cholesterol Vitamin B12 TSH Urine pH Urine WBC (Auto) Hep Bs Antibody, Quant Hepatitis C Antibody 02/13/19 02/13/19 02/13/19 04:14 11:37 13:43 WBC RBC Hgb Hct RDW Plt Count Lymph % (Auto) [place] % (Auto) Lymph # Seg Neutrophils % Seg Neuts % (Manual) Lymphocytes % (Manual) Monocytes % (Manual) Eosinophils % (Manual) Seg Neutrophils # Man Lymphocytes # (Manual) Eosinophils # (Manual) PT INR APTT POC ABG pH POC ABG pCO2 POC ABG pO2 Sodium Potassium Chloride Carbon Dioxide BUN Creatinine Glucose POC Glucose 66 L Lactic Acid Calcium Total Bilirubin AST ALT Alkaline Phosphatase Ammonia 83.0 H Total Creatine Kinase CK-MB (CK-2) Troponin T Total Protein Albumin Prealbumin 0.044 L HDL Cholesterol Vitamin B12 TSH Urine pH Urine WBC (Auto) Hep Bs Antibody, Quant Hepatitis C Antibody 02/13/19 02/13/19 02/13/19 16:39 19:27 20:17 WBC 3.2 L RBC 3.17 L Hgb 9.3 L Hct 28.0 L RDW 18.3 H Plt Count 58 L Lymph % (Auto) [place] % (Auto) Lymph # Seg Neutrophils % Seg Neuts % (Manual) 84.0 H Lymphocytes % (Manual) 11.0 L Monocytes % (Manual) Eosinophils % (Manual) Seg Neutrophils # Man Lymphocytes # (Manual) 0.4 L Eosinophils # (Manual) PT INR APTT POC ABG pH POC ABG pCO2 POC ABG pO2 Sodium Potassium Chloride Carbon Dioxide BUN Creatinine Glucose POC Glucose 134 H 156 H Lactic Acid Calcium Total Bilirubin AST ALT Alkaline Phosphatase Ammonia Total Creatine Kinase CK-MB (CK-2) Troponin T Total Protein Albumin Prealbumin HDL Cholesterol Vitamin B12 TSH Urine pH Urine WBC (Auto) Hep Bs Antibody, Quant Hepatitis C Antibody 02/14/19 02/14/19 02/14/19 05:25 08:05 08:05 WBC RBC 3.07 L Hgb 9.3 L Hct 27.5 L RDW 17.9 H Plt Count 70 L Lymph % (Auto) 5.4 L [place] % (Auto) Lymph # 0.4 L Seg Neutrophils % 89.2 H Seg Neuts % (Manual) Lymphocytes % (Manual) Monocytes % (Manual) Eosinophils % (Manual) Seg Neutrophils # Man Lymphocytes # (Manual) Eosinophils # (Manual) PT INR APTT POC ABG pH POC ABG pCO2 POC ABG pO2 Sodium Potassium Chloride 109.8 H Carbon Dioxide 21 L BUN Creatinine 1.4 H D Glucose POC Glucose 143 H Lactic Acid Calcium 7.8 L Total Bilirubin AST ALT Alkaline Phosphatase Ammonia Total Creatine Kinase CK-MB (CK-2) Troponin T Total Protein Albumin Prealbumin HDL Cholesterol Vitamin B12 TSH Urine pH Urine WBC (Auto) Hep Bs Antibody, Quant Hepatitis C Antibody 02/14/19 02/14/19 02/14/19 08:05 12:33 14:00 WBC RBC Hgb Hct RDW Plt Count Lymph % (Auto) [place] % (Auto) Lymph # Seg Neutrophils % Seg Neuts % (Manual) Lymphocytes % (Manual) Monocytes % (Manual) Eosinophils % (Manual) Seg Neutrophils # Man Lymphocytes # (Manual) Eosinophils # (Manual) PT 17.5 H INR 1.47 H APTT POC ABG pH POC ABG pCO2 POC ABG pO2 Sodium Potassium Chloride Carbon Dioxide BUN Creatinine Glucose POC Glucose 131 H 176 H Lactic Acid Calcium Total Bilirubin AST ALT Alkaline Phosphatase Ammonia Total Creatine Kinase CK-MB (CK-2) Troponin T Total Protein Albumin Prealbumin HDL Cholesterol Vitamin B12 TSH Urine pH Urine WBC (Auto) Hep Bs Antibody, Quant Hepatitis C Antibody 02/14/19 15:34 WBC RBC Hgb Hct RDW Plt Count Lymph % (Auto) [place] % (Auto) Lymph # Seg Neutrophils % Seg Neuts % (Manual) Lymphocytes % (Manual) Monocytes % (Manual) Eosinophils % (Manual) Seg Neutrophils # Man Lymphocytes # (Manual) Eosinophils # (Manual) PT INR APTT POC ABG pH 7.271 L POC ABG pCO2 49.0 H POC ABG pO2 192 H Sodium Potassium Chloride Carbon Dioxide BUN Creatinine Glucose POC Glucose Lactic Acid Calcium Total Bilirubin AST ALT Alkaline Phosphatase Ammonia Total Creatine Kinase CK-MB (CK-2) Troponin T Total Protein Albumin Prealbumin HDL Cholesterol Vitamin B12 TSH Urine pH Urine WBC (Auto) Hep Bs Antibody, Quant Hepatitis C Antibody - Diagnostic Findings Chest x-ray: report reviewed (RIGHT LOWER LOBE PNEUMONIA.), image reviewed Assessment and Plan The patient is a 68-year-old female presenting with a chief complaint of altered mental status. The patient is a longterm resident at [facility] the patient is normally interactive with the nurses although nonverbal but her interaction has decreased over the past 3 days. Staff also reports the patient is not eating or drinking over the past 3 days. Patient was found to be febrile to 102.3F by EMS. The patient is nonverbal and does not answer questions. The patient will open her eyes with tactile stimulation .Other w/up , revealed, UTI, patient started on IV ABX.PLT is low, ammonia level high, treated with lactulose. She was admitted with AMS/sepsis, due to UTI, and was quite dehydrated.She was hydrated. PLT low at 31,000, etiology, unknown at this time. Patients chest xray showing right lower lobe infiltrate. Patient s blood gases reported POC ABG pH 7.271 (7.35-7.45) L 02/14/19 15:34 POC ABG pCO2 49.0 (35-45) H 02/14/19 15:34 POC ABG pO2 192 (80-105) H 02/14/19 15:34 POC ABG HCO3 22.6 (22-26 mml/L) 02/14/19 15:34 POC ABG Total CO2 24 (23-27mmol/L) 02/14/19 15:34 POC ABG O2 Sat 100 02/14/19 15:34 Patient is in hypercapnic respiratory failure. Placing the patient on BIPAP 16/6, rate 16, FIO2 40%. Repeating blood gases. Placing her on albuterol/atrovent aerosol treatments q 6 hours prn for shortness of breath. Brovanna/Budesonide aerosol treatments q 12 hours. Recommend to add also zithromax . Patients smoking and alcohol history not known at this time. Patient is not candidate for general anesthesia at this time. Patient needed treated for pneumonia,UTI, sepsis and respiratory failure and for thrombocytopenis, if those conditions improved, then considered for PEG placement. - Patient Problems (1) Acute hypercapnic respiratory failure Current Visit: Yes Status: Acute Plan to address problem: BIPAP 16/6, rate 16, FIO2 40%. ABGs tomorrow. Brovanna/Budesonide aerosol treatments q 12 hours. Albuterol/atrovent aerosol treatments q 6 hours prn for shortness of breath. Continue Ceftrioxone and recommend to add zithromax also. SCDs GI prophylaxis. (2) Pneumonia Current Visit: Yes Status: Acute Plan to address problem: Recommend to add zithromax to ceftrioxone. (3) UTI (urinary tract infection) Current Visit: Yes Status: Acute Plan to address problem: Patient is on ceftrioxone. (4) Sepsis Current Visit: Yes Status: Acute (5) Acute renal failure (ARF) Current Visit: Yes Status: Acute Plan to address problem: Management as per primary care and nephrology. (6) Acute hepatic encephalopathy Current Visit: No Status: Acute Plan to address problem: Management as per primary care.
[2019-02-14] MEDS ORDERED: IPRATROPIUM 0.02% NEBU 2.5 ML IH PRN (19:31)
[2019-02-14] MEDS ORDERED: ALBUTEROL 2.5 MG/3 ML NEBU IH PRN (19:31)
[2019-02-14] MEDS ORDERED: ALBUTEROL 2.5 MG/3 ML NEBU IH SCH (20:00)
[2019-02-14] MEDS: BUDESONIDE 0.5 MG/2 ML NEBU IH SCH (20:15)
[2019-02-14] MEDS: ARFORMOTEROL 15 MCG/2 ML NEBU IH SCH (20:15)
[2019-02-14] MEDS: DEXTROSE 10% IN WATER 1,000 ML IV SCH (23:18)
[2019-02-14] MEDS: AZITHROMYCIN 500 MG in SODIUM CHLORIDE 0.9% 250ML 250 ML IV SCH (23:18)
[2019-02-15] MEDS: LACTULOSE 20 GM/30 ML ORAL LIQD PO SCH ×2 (00:05→05:32)
[2019-02-15] MEDS: ARFORMOTEROL 15 MCG/2 ML NEBU IH SCH ×2 (08:16→19:11)
[2019-02-15] MEDS: BUDESONIDE 0.5 MG/2 ML NEBU IH SCH ×2 (08:16→19:11)
--- NOTE | 2019-02-15 08:25 | Progress Note ---
Assessment and Plan The patient is a 68-year-old female presenting with a chief complaint of altered mental status. The patient is a group home resident at [facility] the patient is normally interactive with the nurses although nonverbal but her interaction has decreased over the past 3 days. Staff also reports the patient is not eating or drinking over the past 3 days. Patient was found to be febrile to 102.3F by EMS. The patient is nonverbal and does not answer questions. The patient will open her eyes with tactile stimulation .Other w/up , revealed, UTI, patient started on IV ABX.PLT is low, ammonia level high, treated with lactulose. She was admitted with AMS/sepsis, due to UTI, and was quite dehydrated.She was hydrated. PLT low at 31,000, etiology, unknown at this time. Patients chest xray showing right lower lobe infiltrate. Patient s blood gases reported POC ABG pH 7.271 (7.35-7.45) L 02/14/19 15:34 POC ABG pCO2 49.0 (35-45) H 02/14/19 15:34 POC ABG pO2 192 (80-105) H 02/14/19 15:34 POC ABG HCO3 22.6 (22-26 mml/L) 02/14/19 15:34 POC ABG Total CO2 24 (23-27mmol/L) 02/14/19 15:34 POC ABG O2 Sat 100 02/14/19 15:34 Patient is in hypercapnic respiratory failure. Placing the patient on BIPAP 16/6, rate 16, FIO2 40%. Repeating blood gases. Placing her on albuterol/atrovent aerosol treatments q 6 hours prn for shortness of breath. Brovanna/Budesonide aerosol treatments q 12 hours. Recommend to add also zithromax . Patients smoking and alcohol history not known at this time. Patient is not candidate for general anesthesia at this time. Patient needed treated for pneumonia,UTI, sepsis and respiratory failure and for thrombocytopenis, if those conditions improved, then considered for PEG placement. 02/15/19 Patient sleeping at this time on BIPAP. Patient presently on BIPAP 16/6, rate 16, FIO2 40%. patient tolerating BIPAP good. O2 saturation 100%. ABGs pending. Patient afebrile. No leukocytosis. HOld PEG tube placement until pneumonia, UTi, Sepsis and respiratory failure improves. - Patient Problems (1) Acute hypercapnic respiratory failure Current Visit: Yes Status: Acute Plan to address problem: BIPAP 16/6, rate 16, FIO2 40%. ABGs today. Brovanna/Budesonide aerosol treatments q 12 hours. Albuterol/atrovent aerosol treatments q 6 hours prn for shortness of breath. Continue Ceftrioxone and recommend to add zithromax also. SCDs GI prophylaxis. (2) Pneumonia Current Visit: Yes Status: Acute Plan to address problem: Continue zithromax to ceftrioxone. (3) UTI (urinary tract infection) Current Visit: Yes Status: Acute Plan to address problem: Patient is on ceftrioxone. (4) Sepsis Current Visit: Yes Status: Acute Plan to address problem: Patient is on Ceftrioxone and Zithromax. (5) Acute renal failure (ARF) Current Visit: Yes Status: Acute Plan to address problem: Management as per primary care and nephrology. (6) Acute hepatic encephalopathy Current Visit: No Status: Acute Plan to address problem: Management as per primary care. Subjective Date of service: 02/15/19 Principal diagnosis: PEG placement Interval history: Patient sleeping at this time on BIPAP. Patient presently on BIPAP 16/6, rate 16, FIO2 40%. patient tolerating BIPAP good. O2 saturation 100%. ABGs pending. Patient afebrile. No leukocytosis. HOld PEG tube placement until pneumonia, UTi, Sepsis and respiratory failure improves. Objective Vital Signs - 12hr 02/14/19 02/14/19 02/14/19 20:31 20:32 22:00 Temperature Pulse Rate Pulse Rate [ 87 Anterior Bilateral] Pulse Rate [ 91 H Bilateral Throughout] Pulse Rate [ 87 From Monitor] Pulse Rate [ 87 Radial] Respiratory 16 Rate Respiratory 25 H Rate [Anterior Bilateral] Respiratory 20 Rate [Bilateral Throughout] Blood Pressure O2 Sat by Pulse 100 100 Oximetry 02/14/19 02/14/19 02/15/19 23:00 23:06 02:59 Temperature 98.0 F Pulse Rate 84 84 73 Pulse Rate [ Anterior Bilateral] Pulse Rate [ Bilateral Throughout] Pulse Rate [ From Monitor] Pulse Rate [ Radial] Respiratory 18 20 23 Rate Respiratory Rate [Anterior Bilateral] Respiratory Rate [Bilateral Throughout] Blood Pressure 102/49 O2 Sat by Pulse 97 96 97 Oximetry 02/15/19 02/15/19 03:51 03:55 Temperature 97.5 F L Pulse Rate 75 Pulse Rate [ Anterior Bilateral] Pulse Rate [ Bilateral Throughout] Pulse Rate [ From Monitor] Pulse Rate [ Radial] Respiratory 19 Rate Respiratory Rate [Anterior Bilateral] Respiratory Rate [Bilateral Throughout] Blood Pressure 96/53 O2 Sat by Pulse 78 L 100 Oximetry Constitutional: no acute distress, asleep, other (Resting on BIPAP.;) Eyes: non-icteric ENT: oropharynx moist Neck: supple, no JVD Effort: mildly labored Ascultation: Right: rhonchi Cardiovascular: regular rate and rhythm Gastrointestinal: normoactive bowel sounds, soft, non-tender Integumentary: normal Extremities: no cyanosis, no edema Neurologic: unable to assess Psychiatric: other (Unable toassess due to mental status.) CBC and BMP: 02/14/19 08:05 02/14/19 08:05 ABG, PT/INR, D-dimer: ABG POC ABG pH 7.271 (7.35-7.45) L 02/14/19 15:34 POC ABG pCO2 49.0 (35-45) H 02/14/19 15:34 POC ABG pO2 192 (80-105) H 02/14/19 15:34 POC ABG HCO3 22.6 (22-26 mml/L) 02/14/19 15:34 POC ABG Total CO2 24 (23-27mmol/L) 02/14/19 15:34 POC ABG O2 Sat 100 02/14/19 15:34 PT/INR, D-dimer PT 17.5 Sec. (12.2-14.9) H 02/14/19 08:05 INR 1.47 (0.87-1.13) H 02/14/19 08:05 Abnormal lab findings: Abnormal Labs 02/06/19 02/06/19 02/06/19 11:50 11:50 11:50 WBC 12.9 H RBC Hgb Hct RDW 18.8 H Plt Count 32 L Lymph % (Auto) Dickson % (Auto) Lymph # Seg Neutrophils % Seg Neuts % (Manual) 84.0 H Lymphocytes % (Manual) 5.0 L Monocytes % (Manual) Eosinophils % (Manual) Seg Neutrophils # Man 10.8 H Lymphocytes # (Manual) 0.6 L Eosinophils # (Manual) PT 15.7 H INR 1.28 H APTT POC ABG pH POC ABG pCO2 POC ABG pO2 Sodium 164 H* Potassium 5.7 H Chloride 127.7 H Carbon Dioxide 20 L BUN 70 H Creatinine 2.8 H Glucose POC Glucose Lactic Acid Calcium Total Bilirubin 1.50 H AST 211 H ALT 252 H Alkaline Phosphatase 246 H Ammonia Total Creatine Kinase 1708 H CK-MB (CK-2) 9.5 H Troponin T 0.114 H* Total Protein Albumin 2.4 L Prealbumin HDL Cholesterol 39 L Vitamin B12 TSH Urine pH Urine WBC (Auto) Hep Bs Antibody, Quant Hepatitis C Antibody 02/06/19 02/06/19 02/06/19 11:50 11:50 11:50 WBC RBC Hgb Hct RDW Plt Count Lymph % (Auto) Dickson % (Auto) Lymph # Seg Neutrophils % Seg Neuts % (Manual) Lymphocytes % (Manual) Monocytes % (Manual) Eosinophils % (Manual) Seg Neutrophils # Man Lymphocytes # (Manual) Eosinophils # (Manual) PT INR APTT POC ABG pH POC ABG pCO2 POC ABG pO2 Sodium Potassium Chloride Carbon Dioxide BUN Creatinine Glucose POC Glucose Lactic Acid 3.10 H* Calcium Total Bilirubin AST ALT Alkaline Phosphatase Ammonia 65.0 H Total Creatine Kinase CK-MB (CK-2) Troponin T Total Protein Albumin Prealbumin HDL Cholesterol Vitamin B12 TSH 8.460 H Urine pH Urine WBC (Auto) Hep Bs Antibody, Quant Hepatitis C Antibody 02/06/19 02/06/19 02/06/19 12:45 12:45 20:23 WBC RBC Hgb Hct RDW Plt Count Lymph % (Auto) Dickson % (Auto) Lymph # Seg Neutrophils % Seg Neuts % (Manual) Lymphocytes % (Manual) Monocytes % (Manual) Eosinophils % (Manual) Seg Neutrophils # Man Lymphocytes # (Manual) Eosinophils # (Manual) PT 17.4 H INR 1.46 H APTT 41.9 H POC ABG pH POC ABG pCO2 POC ABG pO2 Sodium 165 H* Potassium 5.3 H Chloride 130.8 H Carbon Dioxide 21 L BUN 70 H Creatinine 2.8 H Glucose POC Glucose Lactic Acid 3.00 H* Calcium Total Bilirubin 1.50 H AST 211 H ALT 248 H Alkaline Phosphatase 241 H Ammonia Total Creatine Kinase 1906 H CK-MB (CK-2) 12.6 H Troponin T 0.135 H* Total Protein Albumin 2.5 L Prealbumin HDL Cholesterol Vitamin B12 TSH Urine pH Urine WBC (Auto) Hep Bs Antibody, Quant Hepatitis C Antibody 02/06/19 02/07/19 02/07/19 Unknown 10:31 10:31 WBC RBC Hgb Hct RDW Plt Count Lymph % (Auto) Dickson % (Auto) Lymph # Seg Neutrophils % Seg Neuts % (Manual) Lymphocytes % (Manual) Monocytes % (Manual) Eosinophils % (Manual) Seg Neutrophils # Man Lymphocytes # (Manual) Eosinophils # (Manual) PT INR APTT POC ABG pH POC ABG pCO2 POC ABG pO2 Sodium 166 H* Potassium Chloride 134.7 H Carbon Dioxide 20 L BUN 68 H Creatinine 2.0 H Glucose POC Glucose Lactic Acid Calcium Total Bilirubin AST 150 H ALT 191 H Alkaline Phosphatase 204 H Ammonia 62.0 H Total Creatine Kinase CK-MB (CK-2) Troponin T Total Protein Albumin 2.3 L Prealbumin HDL Cholesterol Vitamin B12 TSH Urine pH 8.0 H Urine WBC (Auto) 58.0 H Hep Bs Antibody, Quant Hepatitis C Antibody 02/07/19 02/07/19 02/08/19 10:31 21:02 04:26 WBC RBC 3.50 L 3.39 L Hgb Hct RDW 18.8 H 19.5 H 19.5 H Plt Count 31 L 33 L 35 L Lymph % (Auto) 9.5 L 10.2 L Dickson % (Auto) Lymph # 0.7 L 0.7 L Seg Neutrophils % 82.7 H 80.8 H Seg Neuts % (Manual) Lymphocytes % (Manual) Monocytes % (Manual) Eosinophils % (Manual) Seg Neutrophils # Man Lymphocytes # (Manual) Eosinophils # (Manual) PT INR APTT POC ABG pH POC ABG pCO2 POC ABG pO2 Sodium Potassium Chloride Carbon Dioxide BUN Creatinine Glucose POC Glucose Lactic Acid Calcium Total Bilirubin AST ALT Alkaline Phosphatase Ammonia Total Creatine Kinase CK-MB (CK-2) Troponin T Total Protein Albumin Prealbumin HDL Cholesterol Vitamin B12 TSH Urine pH Urine WBC (Auto) Hep Bs Antibody, Quant Hepatitis C Antibody 02/08/19 02/08/19 02/08/19 04:26 04:26 04:26 WBC RBC Hgb Hct RDW Plt Count Lymph % (Auto) Dickson % (Auto) Lymph # Seg Neutrophils % Seg Neuts % (Manual) Lymphocytes % (Manual) Monocytes % (Manual) Eosinophils % (Manual) Seg Neutrophils # Man Lymphocytes # (Manual) Eosinophils # (Manual) PT INR APTT POC ABG pH POC ABG pCO2 POC ABG pO2 Sodium Potassium Chloride Carbon Dioxide BUN Creatinine Glucose POC Glucose Lactic Acid Calcium Total Bilirubin AST ALT Alkaline Phosphatase Ammonia Total Creatine Kinase CK-MB (CK-2) Troponin T Total Protein Albumin Prealbumin HDL Cholesterol Vitamin B12 1491 H TSH Urine pH Urine WBC (Auto) Hep Bs Antibody, Quant <5 L Hepatitis C Antibody Reactive A 02/08/19 02/08/19 02/08/19 04:26 04:26 19:12 WBC RBC 3.54 L Hgb Hct RDW 19.2 H Plt Count 41 L Lymph % (Auto) Dickson % (Auto) Lymph # Seg Neutrophils % Seg Neuts % (Manual) 86.0 H Lymphocytes % (Manual) 6.0 L Monocytes % (Manual) Eosinophils % (Manual) 5.0 H Seg Neutrophils # Man Lymphocytes # (Manual) 0.4 L Eosinophils # (Manual) PT INR APTT POC ABG pH POC ABG pCO2 POC ABG pO2 Sodium 164 H* Potassium Chloride 135.7 H Carbon Dioxide 21 L BUN 59 H Creatinine 1.8 H Glucose 107 H POC Glucose Lactic Acid Calcium Total Bilirubin AST 112 H ALT 155 H Alkaline Phosphatase 185 H Ammonia 76.0 H Total Creatine Kinase 704 H CK-MB (CK-2) Troponin T Total Protein Albumin 2.1 L Prealbumin HDL Cholesterol Vitamin B12 TSH Urine pH Urine WBC (Auto) Hep Bs Antibody, Quant Hepatitis C Antibody 02/09/19 02/10/19 02/10/19 19:33 03:56 03:56 WBC RBC 3.34 L Hgb 9.8 L Hct RDW 19.6 H Plt Count 43 L Lymph % (Auto) Dickson % (Auto) Lymph # Seg Neutrophils % Seg Neuts % (Manual) Lymphocytes % (Manual) Monocytes % (Manual) 9.0 H Eosinophils % (Manual) Seg Neutrophils # Man Lymphocytes # (Manual) Eosinophils # (Manual) PT INR APTT POC ABG pH POC ABG pCO2 POC ABG pO2 Sodium 156 H Potassium 3.3 L Chloride 128.7 H Carbon Dioxide BUN 34 H Creatinine Glucose 155 H POC Glucose Lactic Acid Calcium Total Bilirubin AST 59 H ALT 107 H Alkaline Phosphatase 159 H Ammonia 65.0 H Total Creatine Kinase 262 H CK-MB (CK-2) Troponin T Total Protein 6.2 L Albumin 2.0 L Prealbumin HDL Cholesterol Vitamin B12 TSH Urine pH Urine WBC (Auto) Hep Bs Antibody, Quant Hepatitis C Antibody 02/10/19 02/11/19 02/12/19 19:37 19:40 07:42 WBC 3.1 L 3.6 L RBC 3.05 L 3.27 L 3.26 L Hgb 9.1 L 9.7 L 9.6 L Hct 27.8 L 29.3 L 29.2 L RDW 18.8 H 18.5 H 18.7 H Plt Count 51 L 47 L 43 L Lymph % (Auto) Dickson % (Auto) Lymph # 0.4 L Seg Neutrophils % 76.0 H Seg Neuts % (Manual) Lymphocytes % (Manual) 9.0 L Monocytes % (Manual) 9.0 H Eosinophils % (Manual) 12.0 H Seg Neutrophils # Man Lymphocytes # (Manual) 0.4 L Eosinophils # (Manual) 0.5 H PT INR APTT POC ABG pH POC ABG pCO2 POC ABG pO2 Sodium Potassium Chloride Carbon Dioxide BUN Creatinine Glucose POC Glucose Lactic Acid Calcium Total Bilirubin AST ALT Alkaline Phosphatase Ammonia Total Creatine Kinase CK-MB (CK-2) Troponin T Total Protein Albumin Prealbumin HDL Cholesterol Vitamin B12 TSH Urine pH Urine WBC (Auto) Hep Bs Antibody, Quant Hepatitis C Antibody 02/12/19 02/12/19 02/12/19 07:42 17:51 18:05 WBC RBC Hgb Hct RDW Plt Count Lymph % (Auto) Dickson % (Auto) Lymph # Seg Neutrophils % Seg Neuts % (Manual) Lymphocytes % (Manual) Monocytes % (Manual) Eosinophils % (Manual) Seg Neutrophils # Man Lymphocytes # (Manual) Eosinophils # (Manual) PT INR APTT POC ABG pH POC ABG pCO2 POC ABG pO2 Sodium Potassium 3.5 L Chloride 115.8 H Carbon Dioxide 20 L BUN Creatinine Glucose 172 H POC Glucose < 40 L < 40 L Lactic Acid Calcium 8.2 L Total Bilirubin AST 53 H ALT 81 H Alkaline Phosphatase 149 H Ammonia Total Creatine Kinase CK-MB (CK-2) Troponin T Total Protein 5.9 L Albumin 1.8 L Prealbumin HDL Cholesterol Vitamin B12 TSH Urine pH Urine WBC (Auto) Hep Bs Antibody, Quant Hepatitis C Antibody 02/12/19 02/12/19 02/12/19 18:19 18:37 20:43 WBC RBC Hgb Hct RDW Plt Count Lymph % (Auto) Dickson % (Auto) Lymph # Seg Neutrophils % Seg Neuts % (Manual) Lymphocytes % (Manual) Monocytes % (Manual) Eosinophils % (Manual) Seg Neutrophils # Man Lymphocytes # (Manual) Eosinophils # (Manual) PT INR APTT POC ABG pH POC ABG pCO2 POC ABG pO2 Sodium Potassium Chloride Carbon Dioxide BUN Creatinine Glucose POC Glucose 40 L 176 H 228 H Lactic Acid Calcium Total Bilirubin AST ALT Alkaline Phosphatase Ammonia Total Creatine Kinase CK-MB (CK-2) Troponin T Total Protein Albumin Prealbumin HDL Cholesterol Vitamin B12 TSH Urine pH Urine WBC (Auto) Hep Bs Antibody, Quant Hepatitis C Antibody 02/12/19 02/12/19 02/13/19 20:57 20:57 00:46 WBC 2.5 L RBC Hgb Hct RDW 18.9 H Plt Count 46 L Lymph % (Auto) 8.3 L Dickson % (Auto) 7.6 H Lymph # 0.2 L Seg Neutrophils % 83.1 H Seg Neuts % (Manual) Lymphocytes % (Manual) Monocytes % (Manual) Eosinophils % (Manual) Seg Neutrophils # Man Lymphocytes # (Manual) Eosinophils # (Manual) PT INR APTT POC ABG pH POC ABG pCO2 POC ABG pO2 Sodium Potassium Chloride Carbon Dioxide BUN Creatinine Glucose 189 H POC Glucose 265 H Lactic Acid Calcium Total Bilirubin AST ALT Alkaline Phosphatase Ammonia Total Creatine Kinase CK-MB (CK-2) Troponin T Total Protein Albumin Prealbumin HDL Cholesterol Vitamin B12 TSH Urine pH Urine WBC (Auto) Hep Bs Antibody, Quant Hepatitis C Antibody 02/13/19 02/13/19 02/13/19 04:14 11:37 13:43 WBC RBC Hgb Hct RDW Plt Count Lymph % (Auto) Dickson % (Auto) Lymph # Seg Neutrophils % Seg Neuts % (Manual) Lymphocytes % (Manual) Monocytes % (Manual) Eosinophils % (Manual) Seg Neutrophils # Man Lymphocytes # (Manual) Eosinophils # (Manual) PT INR APTT POC ABG pH POC ABG pCO2 POC ABG pO2 Sodium Potassium Chloride Carbon Dioxide BUN Creatinine Glucose POC Glucose 66 L Lactic Acid Calcium Total Bilirubin AST ALT Alkaline Phosphatase Ammonia 83.0 H Total Creatine Kinase CK-MB (CK-2) Troponin T Total Protein Albumin Prealbumin 0.044 L HDL Cholesterol Vitamin B12 TSH Urine pH Urine WBC (Auto) Hep Bs Antibody, Quant Hepatitis C Antibody 02/13/19 02/13/19 02/13/19 16:39 19:27 20:17 WBC 3.2 L RBC 3.17 L Hgb 9.3 L Hct 28.0 L RDW 18.3 H Plt Count 58 L Lymph % (Auto) Dickson % (Auto) Lymph # Seg Neutrophils % Seg Neuts % (Manual) 84.0 H Lymphocytes % (Manual) 11.0 L Monocytes % (Manual) Eosinophils % (Manual) Seg Neutrophils # Man Lymphocytes # (Manual) 0.4 L Eosinophils # (Manual) PT INR APTT POC ABG pH POC ABG pCO2 POC ABG pO2 Sodium Potassium Chloride Carbon Dioxide BUN Creatinine Glucose POC Glucose 134 H 156 H Lactic Acid Calcium Total Bilirubin AST ALT Alkaline Phosphatase Ammonia Total Creatine Kinase CK-MB (CK-2) Troponin T Total Protein Albumin Prealbumin HDL Cholesterol Vitamin B12 TSH Urine pH Urine WBC (Auto) Hep Bs Antibody, Quant Hepatitis C Antibody 02/14/19 02/14/19 02/14/19 05:25 08:05 08:05 WBC RBC 3.07 L Hgb 9.3 L Hct 27.5 L RDW 17.9 H Plt Count 70 L Lymph % (Auto) 5.4 L Dickson % (Auto) Lymph # 0.4 L Seg Neutrophils % 89.2 H Seg Neuts % (Manual) Lymphocytes % (Manual) Monocytes % (Manual) Eosinophils % (Manual) Seg Neutrophils # Man Lymphocytes # (Manual) Eosinophils # (Manual) PT INR APTT POC ABG pH POC ABG pCO2 POC ABG pO2 Sodium Potassium Chloride 109.8 H Carbon Dioxide 21 L BUN Creatinine 1.4 H D Glucose POC Glucose 143 H Lactic Acid Calcium 7.8 L Total Bilirubin AST ALT Alkaline Phosphatase Ammonia Total Creatine Kinase CK-MB (CK-2) Troponin T Total Protein Albumin Prealbumin HDL Cholesterol Vitamin B12 TSH Urine pH Urine WBC (Auto) Hep Bs Antibody, Quant Hepatitis C Antibody 02/14/19 02/14/19 02/14/19 08:05 12:33 14:00 WBC RBC Hgb Hct RDW Plt Count Lymph % (Auto) Dickson % (Auto) Lymph # Seg Neutrophils % Seg Neuts % (Manual) Lymphocytes % (Manual) Monocytes % (Manual) Eosinophils % (Manual) Seg Neutrophils # Man Lymphocytes # (Manual) Eosinophils # (Manual) PT 17.5 H INR 1.47 H APTT POC ABG pH POC ABG pCO2 POC ABG pO2 Sodium Potassium Chloride Carbon Dioxide BUN Creatinine Glucose POC Glucose 131 H 176 H Lactic Acid Calcium Total Bilirubin AST ALT Alkaline Phosphatase Ammonia Total Creatine Kinase CK-MB (CK-2) Troponin T Total Protein Albumin Prealbumin HDL Cholesterol Vitamin B12 TSH Urine pH Urine WBC (Auto) Hep Bs Antibody, Quant Hepatitis C Antibody 02/14/19 02/14/19 02/15/19 15:34 21:10 08:18 WBC RBC Hgb Hct RDW Plt Count Lymph % (Auto) Dickson % (Auto) Lymph # Seg Neutrophils % Seg Neuts % (Manual) Lymphocytes % (Manual) Monocytes % (Manual) Eosinophils % (Manual) Seg Neutrophils # Man Lymphocytes # (Manual) Eosinophils # (Manual) PT INR APTT POC ABG pH 7.271 L POC ABG pCO2 49.0 H POC ABG pO2 192 H Sodium Potassium Chloride Carbon Dioxide BUN Creatinine Glucose POC Glucose 130 H 135 H Lactic Acid Calcium Total Bilirubin AST ALT Alkaline Phosphatase Ammonia Total Creatine Kinase CK-MB (CK-2) Troponin T Total Protein Albumin Prealbumin HDL Cholesterol Vitamin B12 TSH Urine pH Urine WBC (Auto) Hep Bs Antibody, Quant Hepatitis C Antibody
[2019-02-15] MEDS: INSULIN LISPRO 100 UNIT/ML SUB-Q SCH ×3 (08:56→22:21)
[2019-02-15] MEDS: cefTRIAXone/NS 1 GM/50 ML 1 GM/50 ML BAG IV SCH (10:30)
[2019-02-15] MEDS ORDERED: SODIUM CHLORIDE 0.9% 250ML 250 ML ONE (10:39)
[2019-02-15] MEDS: FLUTICASONE PROPIONATE NASAL SPRAY 16 GM NS SCH (10:57)
[2019-02-15] MEDS: THIAMINE 100 MG TAB PO SCH (10:59)
[2019-02-15] MEDS: FOLIC ACID 1 MG TAB PO SCH (10:59)
[2019-02-15] MEDS: CYPROHEPTADINE 4 MG TAB PO SCH ×2 (10:59→22:21)
[2019-02-15] MEDS: RIFAXIMIN 550 MG TAB PO SCH (10:59)
--- NOTE | 2019-02-15 11:47 | Gastroenterology Progress Note ---
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 Patient has been on antibiotics for UTI and pneumonia (5 days of levaquin). Work up also includes CT head, which showed no acute changes but mild to moderate cerebral atrophy. GI consulted for PEG placement. # Cirrhosis # AMS- may be multifactorial with baseline alcohol related dementia, sepsis 2/2 UTI/pneumonia, and hepatic encephalopathy #dysphagia/malnutrition/PEG placement -afebrile -WBC WNL -H/H 9.3/27.5- no active signs of bleeding -plt 70, INR 1.47 -LFTs-stable -ammonia 83 - evaluated by speech and appears to hold food bolus in the mouth. - no signs of ascites on recent abdominal US - will consider PEG placement based on clinical course once respiratory status has improved (currently on antibiotics for pneumonia; will need pulmonary clearance-pulmonary following w/ recommendations to hold PEG for now) -recommend alternative method of nutrition for now with TFs via Dobhoff -continue lactulose and rifaximin (currently not receiving due to AMS; dobhoff failed yesterday per nursing) -continue to trend labs and supportive care -will follow Subjective Date of service: 02/15/19 Principal diagnosis: PEG placement Interval history: patient s/p code met yesterday due to respiratory distress and placed on BiPAP. No acute distress noted this am. Remains lethargic/nonverbal. Objective - Constitutional Vitals: Temp Pulse Resp BP Pulse Ox 98.1 F 87 19 83/35 100 02/15/19 08:12 02/15/19 08:18 02/15/19 08:18 02/15/19 08:12 02/15/19 03:55 General appearance: no acute distress, other (nonverbal) - Respiratory Respiratory effort: normal Respiratory: bilateral: diminished - Cardiovascular Rhythm: regular - Gastrointestinal General gastrointestinal: Present: soft, non-distended, normal bowel sounds - Labs CBC & Chem 7: 02/14/19 08:05 02/14/19 08:05 Labs: Laboratory Results - last 24 hr 02/09/19 02/14/19 02/14/19 04:53 12:33 14:00 POC ABG pH POC ABG pCO2 POC ABG pO2 POC ABG HCO3 POC ABG Total CO2 POC ABG O2 Sat POC ABG Base Excess FiO2 POC Glucose 131 H 176 H Hepatitis C Genotype 1a 02/14/19 02/14/19 02/15/19 15:34 21:10 08:18 POC ABG pH 7.271 L POC ABG pCO2 49.0 H POC ABG pO2 192 H POC ABG HCO3 22.6 POC ABG Total CO2 24 POC ABG O2 Sat 100 POC ABG Base Excess -4 FiO2 60 POC Glucose 130 H 135 H Hepatitis C Genotype 02/15/19 09:34 POC ABG pH 7.377 POC ABG pCO2 38.8 POC ABG pO2 129 H POC ABG HCO3 22.8 POC ABG Total CO2 24 POC ABG O2 Sat 99 POC ABG Base Excess -2 FiO2 40 POC Glucose Hepatitis C Genotype
[2019-02-15] MEDS ORDERED: LACTULOSE ENEMA 1000 ML PR SCH (16:00)
--- NOTE | 2019-02-15 18:23 | Progress Note ---
Assessment and Plan - Patient Problems (1) Acute renal failure (ARF) Current Visit: Yes Status: Acute Plan to address problem: this is pre renal azotemia, due to dehydration. resolving (2) Dehydration Current Visit: Yes Status: Acute Plan to address problem: Same as above.continue with some hydration. (3) Hepatic encephalopathy Current Visit: Yes Status: Acute Plan to address problem: Continue with Lactulose, check hep panel. continue with lactulose IA. (4) Rhabdomyolysis Current Visit: Yes Status: Deleted Plan to address problem: Alkalinize the urine. (5) UTI (urinary tract infection) Current Visit: Yes Status: Acute Plan to address problem: leading into sepsis, will continue IV abx. (6) Sepsis Current Visit: Yes Status: Acute Plan to address problem: Same as above. (7) Pneumonia Current Visit: Yes Status: Acute Plan to address problem: continue with IV ABX. Zithromax added. Subjective Date of service: 02/15/19 Principal diagnosis: PEG placement Interval history: Patient seen/examined, resting in bed, records reviewed.Hep C ab positive, and will explain, ABN LFTs, Rhabdo still in progress, and will continue with hydration. Will check urine alkalization.Continue Lactulose, and monitor labs. Patient seen, resting in bed, NAD, labs reviewed.Will continue current man agement. patient seen, resting in bed, labs/records reviewed.K+ low, and replaced. Patient seen, resting in bed, labs reviewed, new ones ordered. Patient seen, resting in bed, labs reviewed, case d/c with family members at the bed side., will follow Gen surg rec to consult GI instead. will repeat labs, and coags before the procedure. Patient seen/examined, resting in bed, labs reviewed, as well as notes. Will check labs, and coags in am, in preparation for peg tube placement. BP was lower earlier, and adjusted.Xrays reviewed, of the hand/wist, consistent with DJD/demineralization. Patient seen, resting in bed, labs reviewed, awaiting GI for the Peg tube placement. Patient seen/examined, resting in bed, now on BIPAP. consultants notes reviewed, and appreciated. Will continue current management, and once stable, will re eval for peg tube candidate. Objective - Constitutional Vitals: Vital Signs - 12hr 02/15/19 02/15/1919 08:12 08:18 13:10 Temperature 98.1 F Pulse Rate 98 H Pulse Rate [ 87 Anterior Bilateral] Respiratory 18 22 Rate Respiratory 19 Rate [Anterior Bilateral] Blood Pressure 83/35 O2 Sat by Pulse 98 Oximetry General appearance: Present: no acute distress, mild distress, cachectic - EENT Eyes: PERRL, EOM intact ENT: hearing intact, clear oral mucosa Ears: bilateral: normal - Neck Neck: supple, normal ROM - Respiratory Respiratory: bilateral: diminished - Breasts Breasts: normal - Cardiovascular Rhythm: regular Heart Sounds: Present: S1 & S2. Absent: gallop, rub Extremities: pulses intact, No edema, normal color, Full ROM - Gastrointestinal General gastrointestinal: Present: soft, non-tender, non-distended, normal bowel sounds Rectal Exam: deferred - Genitourinary Female genitourinary: deferred - Integumentary Integumentary: clear, warm, dry - Neurologic Neurologic: moves all extremities - Labs CBC & Chem 7: 02/14/19 08:05 02/14/19 08:05 Labs: Abnormal lab results 02/14/19 02/15/19 02/15/19 Range/Units 21:10 08:18 09:34 POC ABG pO2 129 H (80-105) POC Glucose 130 H 135 H (70-105) 02/15/19 Range/Units 12:34 POC ABG pO2 (80-105) POC Glucose 119 H (70-105)
[2019-02-15] MEDS ORDERED: LACTULOSE ENEMA 1000 ML PR PRN (21:00)
[2019-02-15] MEDS: AZITHROMYCIN 500 MG in SODIUM CHLORIDE 0.9% 250ML 250 ML IV SCH (22:20)
--- NOTE | 2019-02-16 01:03 | XRay Report ---
CHEST 2 VIEWS INDICATION / CLINICAL INFORMATION: SOB. History of COPD and asthma. COMPARISON: 02/13/19 FINDINGS: SUPPORT DEVICES: None. HEART / MEDIASTINUM: No significant abnormality. LUNGS / PLEURA: Right lung base airspace disease is unchanged. Sliding increase in diffuse interstiti al opacities. No pneumothorax. ADDITIONAL FINDINGS: No significant additional findings. IMPRESSION: 1. Stable right lung base pneumonia. 2. Slight increase in interstitial opacities. Signer Name: Giovany John MD Signed: 02/16/2019 12:58 AM Workstation Name: [id number]
[2019-02-16 04:47] LABS: Hemoglobin 8.8 gm/dl (10.1-14.3); Mean Corpuscular HGB Conc 34 % (30-34); Mean Corpuscular Volume 90 fl (79-97); Red Blood Count 2.89 M/mm3 (3.65-5.03); Red Cell Distribution Width 18.3 % (13.2-15.2)
[2019-02-16 04:58] LABS: Platelet Count 95 K/mm3 (140-440)
[2019-02-16 05:56] LABS: Band Neutrophils # (Manual) 0.1 K/mm3; Basophils % (Manual) 0 % (0.0-1.8); Eosinophils % (Manual) 0 % (0.0-4.3); Total Cells Counted 100
[2019-02-16 05:57] LABS: Anisocytosis Few; Macrocytosis Few
[2019-02-16 05:58] LABS: Platelet Estimate Consistent w Auto
[2019-02-16 06:32] LABS: BUN/Creatinine Ratio 14; Blood Urea Nitrogen 14 mg/dL (7-17); Calcium 8.2 mg/dL (8.4-10.2); Hemolysis Index 4
[2019-02-16] MEDS: LACTULOSE ENEMA 1000 ML PR SCH (06:32)
[2019-02-16] MEDS: ARFORMOTEROL 15 MCG/2 ML NEBU IH SCH ×2 (08:16→20:56)
[2019-02-16] MEDS: BUDESONIDE 0.5 MG/2 ML NEBU IH SCH ×2 (08:16→20:56)
--- NOTE | 2019-02-16 09:21 | Progress Note ---
Assessment and Plan - Patient Problems (1) Acute renal failure (ARF) Current Visit: Yes Status: Acute Plan to address problem: this is pre renal azotemia, due to dehydration. resolving (2) Dehydration Current Visit: Yes Status: Acute Plan to address problem: Same as above.continue with some hydration. (3) Hepatic encephalopathy Current Visit: Yes Status: Acute Plan to address problem: Continue with Lactulose, check hep panel. continue with lactulose ND. (4) UTI (urinary tract infection) Current Visit: Yes Status: Acute Plan to address problem: leading into sepsis, will continue IV abx. (5) Sepsis Current Visit: Yes Status: Acute Plan to address problem: Same as above. (6) Pneumonia Current Visit: Yes Status: Acute Plan to address problem: continue with IV ABX. Zithromax added. Subjective Date of service: 02/16/19 Principal diagnosis: PEG placement Interval history: Patient seen/examined, resting in bed, records reviewed.Hep C ab positive, and will explain, ABN LFTs, Rhabdo still in progress, and will continue with hydration. Will check urine alkalization.Continue Lactulose, and monitor labs. Patient seen, resting in bed, NAD, labs reviewed.Will continue current management. patient seen, resting in bed, labs/records reviewed.K+ low, and replaced. Patient seen, resting in bed, labs reviewed, new ones ordered. Patient seen, resting in bed, labs reviewed, case d/c with family members at the bed side., will follow Gen surg rec to consult GI instead. will repeat labs, and coags before the procedure. Patient seen/examined, resting in bed, labs reviewed, as well as notes. Will check labs, and coags in am, in preparation for peg tube placement. BP was lower earlier, and adjusted.Xrays reviewed, of the hand/wist, consistent with DJD/demineralization. Patient seen, resting in bed, labs reviewed, awaiting GI for the Peg tube placement. Patient seen/examined, resting in bed, now on BIPAP. consultants notes reviewed, and appreciated. Will continue current management, and once stable, will re eval for peg tube candidate. Patient seen/examined, resting in bed, awoke, non distressed, at this time.Labs reviewed, and fair.She still remains on [place] oxygen.deep suctioning on board.Follow pulm, for clearance ,when stable. Continue IV ABX, and pulm toileting. Objective - Constitutional Vitals: Vital Signs - 12hr 02/15/19 02/16/19 02/16/19 23:09 03:23 08:16 Temperature 98.2 F 98.0 F Pulse Rate 94 H 91 H Pulse Rate [ 86 Anterior Bilateral] Respiratory 18 19 Rate Respiratory 18 Rate [Anterior Bilateral] Blood Pressure 109/51 107/42 O2 Sat by Pulse 100 99 99 Oximetry General appearance: Present: no acute distress - EENT Eyes: PERRL, EOM intact ENT: hearing intact, clear oral mucosa Ears: bilateral: normal - Neck Neck: supple, normal ROM - Respiratory Respiratory: bilateral: diminished - Breasts Breasts: deferred - Cardiovascular Rhythm: regular Heart Sounds: Present: S1 & S2. Absent: gallop, rub Extremities: pulses intact, No edema, normal color, Full ROM - Gastrointestinal General gastrointestinal: Present: soft, non-tender, non-distended, normal bowel sounds Rectal Exam: deferred - Genitourinary Female genitourinary: deferred - Integumentary Integumentary: clear, warm, dry - Musculoskeletal Musculoskeletal: 1, strength equal bilaterally - Psychiatric Psychiatric: appropriate mood/affect - Labs CBC & Chem 7: 02/16/19 04:28 02/16/19 04:28 Labs: Abnormal lab results 02/15/19 02/15/19 02/16/19 Range/Units 09:34 12:34 04:28 RBC (3.65-5.03) M/mm3 Hgb (10.1-14.3) gm/dl Hct (30.3-42.9) % RDW (13.2-15.2) % Plt Count (140-440) K/mm3 Seg Neuts % (Manual) (40.0-70.0) % Lymphocytes % (Manual) (13.4-35.0) % Lymphocytes # (Manual) (1.2-5.4) K/mm3 POC ABG pO2 129 H (80-105) Potassium 3.3 L (3.6-5.0) mmol/L Chloride 113.3 H (98-107) mmol/L Carbon Dioxide 20 L (22-30) mmol/L Glucose 130 H (65-100) mg/dL POC Glucose 119 H (70-105) Calcium 8.2 L (8.4-10.2) mg/dL 02/16/19 02/16/19 Range/Units 04:28 08:11 RBC 2.89 L (3.65-5.03) M/mm3 Hgb 8.8 L (10.1-14.3) gm/dl Hct 26.0 L (30.3-42.9) % RDW 18.3 H (13.2-15.2) % Plt Count 95 L (140-440) K/mm3 Seg Neuts % (Manual) 93.0 H (40.0-70.0) % Lymphocytes % (Manual) 5.0 L (13.4-35.0) % Lymphocytes # (Manual) 0.3 L (1.2-5.4) K/mm3 POC ABG pO2 (80-105) Potassium (3.6-5.0) mmol/L Chloride (98-107) mmol/L Carbon Dioxide (22-30) mmol/L Glucose (65-100) mg/dL POC Glucose 121 H (70-105) Calcium (8.4-10.2) mg/dL
[2019-02-16] MEDS: INSULIN LISPRO 100 UNIT/ML SUB-Q SCH ×4 (09:41→22:03)
[2019-02-16] MEDS: cefTRIAXone/NS 1 GM/50 ML 1 GM/50 ML BAG IV SCH (09:58)
[2019-02-16] MEDS: FLUTICASONE PROPIONATE NASAL SPRAY 16 GM NS SCH (09:59)
[2019-02-16] MEDS: FOLIC ACID 1 MG TAB PO SCH (09:59)
[2019-02-16] MEDS: THIAMINE 100 MG TAB PO SCH (10:00)
[2019-02-16] MEDS: CYPROHEPTADINE 4 MG TAB PO SCH ×2 (10:00→22:03)
[2019-02-16] MEDS: POTASSIUM CHLORIDE 10 MEQ 10 MEQ/100 ML BAG IV SCH ×2 (13:15→14:54)
[2019-02-16] MEDS: DEXTROSE 10% IN WATER 1,000 ML IV SCH (14:56)
--- NOTE | 2019-02-16 17:26 | Progress Note ---
Assessment and Plan Patient awake, weak. No acute respiratory distress. Patient is on 4 litres O2. O2 saturation 98%. BIPAP stand by in the room. Patient afebrile. No leukocytosis. ABG on BIPAP. POC ABG pH 7.377 (7.35-7.45) 02/15/19 09:34 POC ABG pCO2 38.8 (35-45) 02/15/19 09:34 POC ABG pO2 129 (80-105) H 02/15/19 09:34 POC ABG HCO3 22.8 (22-26 mml/L) 02/15/19 09:34 POC ABG Total CO2 24 (23-27mmol/L) 02/15/19 09:34 POC ABG O2 Sat 99 02/15/19 09:34 Patient placed on 4 litres O2. Tolerating nasal canula at this time. Chest xray still reporting stable right lower lobe infiltrate. - Patient Problems (1) Acute hypercapnic respiratory failure Current Visit: Yes Status: Acute Plan to address problem: O2 4 litres via nasal canula. BIPAP 16/6, rate 16, FIO2 40% stand by in the room. Brovanna/Budesonide aerosol treatments q 12 hours. Albuterol/atrovent aerosol treatments q 6 hours prn for shortness of breath. Continue Ceftrioxone and recommend to add zithromax also. SCDs GI prophylaxis. (2) Pneumonia Current Visit: Yes Status: Acute Plan to address problem: Continue zithromax to ceftrioxone. (3) UTI (urinary tract infection) Current Visit: Yes Status: Acute Plan to address problem: Patient is on ceftrioxone. (4) Sepsis Current Visit: Yes Status: Acute Plan to address problem: Patient is on Ceftrioxone and Zithromax. (5) Acute renal failure (ARF) Current Visit: Yes Status: Acute Plan to address problem: Management as per primary care and nephrology. (6) Acute hepatic encephalopathy Current Visit: No Status: Acute Plan to address problem: Management as per primary care. Subjective Date of service: 02/16/19 Principal diagnosis: PEG placement Interval history: Patient awake, weak. No acute respiratory distress. Patient is on 4 litres O2. O2 saturation 98%. BIPAP stand by in the room. Patient afebrile. No leukocytosis. ABG on BIPAP. POC ABG pH 7.377 (7.35-7.45) 02/15/19 09:34 POC ABG pCO2 38.8 (35-45) 02/15/19 09:34 POC ABG pO2 129 (80-105) H 02/15/19 09:34 POC ABG HCO3 22.8 (22-26 mml/L) 02/15/19 09:34 POC ABG Total CO2 24 (23-27mmol/L) 02/15/19 09:34 POC ABG O2 Sat 99 02/15/19 09:34 Patient placed on 4 litres O2. Tolerating nasal canula at this time. Chest xray still reporting stable right lower lobe infiltrate. Objective Vital Signs - 12hr 02/16/19 02/16/19 02/16/19 08:04 08:16 09:45 Temperature 98.1 F Pulse Rate 90 87 Pulse Rate [ 86 Anterior Bilateral] Pulse Rate [ From Monitor] Respiratory 16 18 Rate Respiratory 18 Rate [Anterior Bilateral] Blood Pressure 99/44 Blood Pressure 84/50 [Right] O2 Sat by Pulse 100 99 99 Oximetry 02/16/19 02/16/19 02/16/19 10:31 11:00 12:48 Temperature 98.2 F Pulse Rate 87 91 H Pulse Rate [ Anterior Bilateral] Pulse Rate [ 88 From Monitor] Respiratory 20 20 16 Rate Respiratory Rate [Anterior Bilateral] Blood Pressure 104/51 Blood Pressure 105/57 [Right] O2 Sat by Pulse 99 100 Oximetry 02/16/19 16:50 Temperature 98.2 F Pulse Rate 99 H Pulse Rate [ Anterior Bilateral] Pulse Rate [ From Monitor] Respiratory 18 Rate Respiratory Rate [Anterior Bilateral] Blood Pressure 156/79 Blood Pressure [Right] O2 Sat by Pulse 98 Oximetry Constitutional: no acute distress, alert, other (Resting on nasal canula.) Eyes: non-icteric ENT: oropharynx moist Neck: supple, no JVD Effort: mildly labored Ascultation: Right: rhonchi Cardiovascular: regular rate and rhythm Gastrointestinal: normoactive bowel sounds, soft, non-tender Integumentary: normal Extremities: no cyanosis, no edema Neurologic: unable to assess Psychiatric: other (Unable toassess due to mental status.) CBC and BMP: 02/16/19 04:28 02/16/19 04:28 ABG, PT/INR, D-dimer: ABG POC ABG pH 7.377 (7.35-7.45) 02/15/19 09:34 POC ABG pCO2 38.8 (35-45) 02/15/19 09:34 POC ABG pO2 129 (80-105) H 02/15/19 09:34 POC ABG HCO3 22.8 (22-26 mml/L) 02/15/19 09:34 POC ABG Total CO2 24 (23-27mmol/L) 02/15/19 09:34 POC ABG O2 Sat 99 02/15/19 09:34 PT/INR, D-dimer PT 17.5 Sec. (12.2-14.9) H 02/14/19 08:05 INR 1.47 (0.87-1.13) H 02/14/19 08:05 Abnormal lab findings: Abnormal Labs 02/06/19 02/06/19 02/06/19 11:50 11:50 11:50 WBC 12.9 H RBC Hgb Hct RDW 18.8 H Plt Count 32 L Lymph % (Auto) Keith % (Auto) Lymph # Seg Neutrophils % Seg Neuts % (Manual) 84.0 H Lymphocytes % (Manual) 5.0 L Monocytes % (Manual) Eosinophils % (Manual) Seg Neutrophils # Man 10.8 H Lymphocytes # (Manual) 0.6 L Eosinophils # (Manual) PT 15.7 H INR 1.28 H APTT POC ABG pH POC ABG pCO2 POC ABG pO2 Sodium 164 H* Potassium 5.7 H Chloride 127.7 H Carbon Dioxide 20 L BUN 70 H Creatinine 2.8 H Glucose POC Glucose Lactic Acid Calcium Total Bilirubin 1.50 H AST 211 H ALT 252 H Alkaline Phosphatase 246 H Ammonia Total Creatine Kinase 1708 H CK-MB (CK-2) 9.5 H Troponin T 0.114 H* Total Protein Albumin 2.4 L Prealbumin HDL Cholesterol 39 L Vitamin B12 TSH Urine pH Urine WBC (Auto) Hep Bs Antibody, Quant Hepatitis C Antibody 02/06/19 02/06/19 02/06/19 11:50 11:50 11:50 WBC RBC Hgb Hct RDW Plt Count Lymph % (Auto) Keith % (Auto) Lymph # Seg Neutrophils % Seg Neuts % (Manual) Lymphocytes % (Manual) Monocytes % (Manual) Eosinophils % (Manual) Seg Neutrophils # Man Lymphocytes # (Manual) Eosinophils # (Manual) PT INR APTT POC ABG pH POC ABG pCO2 POC ABG pO2 Sodium Potassium Chloride Carbon Dioxide BUN Creatinine Glucose POC Glucose Lactic Acid 3.10 H* Calcium Total Bilirubin AST ALT Alkaline Phosphatase Ammonia 65.0 H Total Creatine Kinase CK-MB (CK-2) Troponin T Total Protein Albumin Prealbumin HDL Cholesterol Vitamin B12 TSH 8.460 H Urine pH Urine WBC (Auto) Hep Bs Antibody, Quant Hepatitis C Antibody 02/06/19 02/06/19 02/06/19 12:45 12:45 20:23 WBC RBC Hgb Hct RDW Plt Count Lymph % (Auto) Keith % (Auto) Lymph # Seg Neutrophils % Seg Neuts % (Manual) Lymphocytes % (Manual) Monocytes % (Manual) Eosinophils % (Manual) Seg Neutrophils # Man Lymphocytes # (Manual) Eosinophils # (Manual) PT 17.4 H INR 1.46 H APTT 41.9 H POC ABG pH POC ABG pCO2 POC ABG pO2 Sodium 165 H* Potassium 5.3 H Chloride 130.8 H Carbon Dioxide 21 L BUN 70 H Creatinine 2.8 H Glucose POC Glucose Lactic Acid 3.00 H* Calcium Total Bilirubin 1.50 H AST 211 H ALT 248 H Alkaline Phosphatase 241 H Ammonia Total Creatine Kinase 1906 H CK-MB (CK-2) 12.6 H Troponin T 0.135 H* Total Protein Albumin 2.5 L Prealbumin HDL Cholesterol Vitamin B12 TSH Urine pH Urine WBC (Auto) Hep Bs Antibody, Quant Hepatitis C Antibody 02/06/19 02/07/19 02/07/19 Unknown 10:31 10:31 WBC RBC Hgb Hct RDW Plt Count Lymph % (Auto) Keith % (Auto) Lymph # Seg Neutrophils % Seg Neuts % (Manual) Lymphocytes % (Manual) Monocytes % (Manual) Eosinophils % (Manual) Seg Neutrophils # Man Lymphocytes # (Manual) Eosinophils # (Manual) PT INR APTT POC ABG pH POC ABG pCO2 POC ABG pO2 Sodium 166 H* Potassium Chloride 134.7 H Carbon Dioxide 20 L BUN 68 H Creatinine 2.0 H Glucose POC Glucose Lactic Acid Calcium Total Bilirubin AST 150 H ALT 191 H Alkaline Phosphatase 204 H Ammonia 62.0 H Total Creatine Kinase CK-MB (CK-2) Troponin T Total Protein Albumin 2.3 L Prealbumin HDL Cholesterol Vitamin B12 TSH Urine pH 8.0 H Urine WBC (Auto) 58.0 H Hep Bs Antibody, Quant Hepatitis C Antibody 02/07/19 02/07/19 02/08/19 10:31 21:02 04:26 WBC RBC 3.50 L 3.39 L Hgb Hct RDW 18.8 H 19.5 H 19.5 H Plt Count 31 L 33 L 35 L Lymph % (Auto) 9.5 L 10.2 L Keith % (Auto) Lymph # 0.7 L 0.7 L Seg Neutrophils % 82.7 H 80.8 H Seg Neuts % (Manual) Lymphocytes % (Manual) Monocytes % (Manual) Eosinophils % (Manual) Seg Neutrophils # Man Lymphocytes # (Manual) Eosinophils # (Manual) PT INR APTT POC ABG pH POC ABG pCO2 POC ABG pO2 Sodium Potassium Chloride Carbon Dioxide BUN Creatinine Glucose POC Glucose Lactic Acid Calcium Total Bilirubin AST ALT Alkaline Phosphatase Ammonia Total Creatine Kinase CK-MB (CK-2) Troponin T Total Protein Albumin Prealbumin HDL Cholesterol Vitamin B12 TSH Urine pH Urine WBC (Auto) Hep Bs Antibody, Quant Hepatitis C Antibody 02/08/19 02/08/19 02/08/19 04:26 04:26 04:26 WBC RBC Hgb Hct RDW Plt Count Lymph % (Auto) Keith % (Auto) Lymph # Seg Neutrophils % Seg Neuts % (Manual) Lymphocytes % (Manual) Monocytes % (Manual) Eosinophils % (Manual) Seg Neutrophils # Man Lymphocytes # (Manual) Eosinophils # (Manual) PT INR APTT POC ABG pH POC ABG pCO2 POC ABG pO2 Sodium Potassium Chloride Carbon Dioxide BUN Creatinine Glucose POC Glucose Lactic Acid Calcium Total Bilirubin AST ALT Alkaline Phosphatase Ammonia Total Creatine Kinase CK-MB (CK-2) Troponin T Total Protein Albumin Prealbumin HDL Cholesterol Vitamin B12 1491 H TSH Urine pH Urine WBC (Auto) Hep Bs Antibody, Quant <5 L Hepatitis C Antibody Reactive A 02/08/19 02/08/19 02/08/19 04:26 04:26 19:12 WBC RBC 3.54 L Hgb Hct RDW 19.2 H Plt Count 41 L Lymph % (Auto) Keith % (Auto) Lymph # Seg Neutrophils % Seg Neuts % (Manual) 86.0 H Lymphocytes % (Manual) 6.0 L Monocytes % (Manual) Eosinophils % (Manual) 5.0 H Seg Neutrophils # Man Lymphocytes # (Manual) 0.4 L Eosinophils # (Manual) PT INR APTT POC ABG pH POC ABG pCO2 POC ABG pO2 Sodium 164 H* Potassium Chloride 135.7 H Carbon Dioxide 21 L BUN 59 H Creatinine 1.8 H Glucose 107 H POC Glucose Lactic Acid Calcium Total Bilirubin AST 112 H ALT 155 H Alkaline Phosphatase 185 H Ammonia 76.0 H Total Creatine Kinase 704 H CK-MB (CK-2) Troponin T Total Protein Albumin 2.1 L Prealbumin HDL Cholesterol Vitamin B12 TSH Urine pH Urine WBC (Auto) Hep Bs Antibody, Quant Hepatitis C Antibody 02/09/19 02/10/19 02/10/19 19:33 03:56 03:56 WBC RBC 3.34 L Hgb 9.8 L Hct RDW 19.6 H Plt Count 43 L Lymph % (Auto) Keith % (Auto) Lymph # Seg Neutrophils % Seg Neuts % (Manual) Lymphocytes % (Manual) Monocytes % (Manual) 9.0 H Eosinophils % (Manual) Seg Neutrophils # Man Lymphocytes # (Manual) Eosinophils # (Manual) PT INR APTT POC ABG pH POC ABG pCO2 POC ABG pO2 Sodium 156 H Potassium 3.3 L Chloride 128.7 H Carbon Dioxide BUN 34 H Creatinine Glucose 155 H POC Glucose Lactic Acid Calcium Total Bilirubin AST 59 H ALT 107 H Alkaline Phosphatase 159 H Ammonia 65.0 H Total Creatine Kinase 262 H CK-MB (CK-2) Troponin T Total Protein 6.2 L Albumin 2.0 L Prealbumin HDL Cholesterol Vitamin B12 TSH Urine pH Urine WBC (Auto) Hep Bs Antibody, Quant Hepatitis C Antibody 02/10/19 02/11/19 02/12/19 19:37 19:40 07:42 WBC 3.1 L 3.6 L RBC 3.05 L 3.27 L 3.26 L Hgb 9.1 L 9.7 L 9.6 L Hct 27.8 L 29.3 L 29.2 L RDW 18.8 H 18.5 H 18.7 H Plt Count 51 L 47 L 43 L Lymph % (Auto) Keith % (Auto) Lymph # 0.4 L Seg Neutrophils % 76.0 H Seg Neuts % (Manual) Lymphocytes % (Manual) 9.0 L Monocytes % (Manual) 9.0 H Eosinophils % (Manual) 12.0 H Seg Neutrophils # Man Lymphocytes # (Manual) 0.4 L Eosinophils # (Manual) 0.5 H PT INR APTT POC ABG pH POC ABG pCO2 POC ABG pO2 Sodium Potassium Chloride Carbon Dioxide BUN Creatinine Glucose POC Glucose Lactic Acid Calcium Total Bilirubin AST ALT Alkaline Phosphatase Ammonia Total Creatine Kinase CK-MB (CK-2) Troponin T Total Protein Albumin Prealbumin HDL Cholesterol Vitamin B12 TSH Urine pH Urine WBC (Auto) Hep Bs Antibody, Quant Hepatitis C Antibody 02/12/19 02/12/19 02/12/19 07:42 17:51 18:05 WBC RBC Hgb Hct RDW Plt Count Lymph % (Auto) Keith % (Auto) Lymph # Seg Neutrophils % Seg Neuts % (Manual) Lymphocytes % (Manual) Monocytes % (Manual) Eosinophils % (Manual) Seg Neutrophils # Man Lymphocytes # (Manual) Eosinophils # (Manual) PT INR APTT POC ABG pH POC ABG pCO2 POC ABG pO2 Sodium Potassium 3.5 L Chloride 115.8 H Carbon Dioxide 20 L BUN Creatinine Glucose 172 H POC Glucose < 40 L < 40 L Lactic Acid Calcium 8.2 L Total Bilirubin AST 53 H ALT 81 H Alkaline Phosphatase 149 H Ammonia Total Creatine Kinase CK-MB (CK-2) Troponin T Total Protein 5.9 L Albumin 1.8 L Prealbumin HDL Cholesterol Vitamin B12 TSH Urine pH Urine WBC (Auto) Hep Bs Antibody, Quant Hepatitis C Antibody 02/12/19 02/12/19 02/12/19 18:19 18:37 20:43 WBC RBC Hgb Hct RDW Plt Count Lymph % (Auto) Keith % (Auto) Lymph # Seg Neutrophils % Seg Neuts % (Manual) Lymphocytes % (Manual) Monocytes % (Manual) Eosinophils % (Manual) Seg Neutrophils # Man Lymphocytes # (Manual) Eosinophils # (Manual) PT INR APTT POC ABG pH POC ABG pCO2 POC ABG pO2 Sodium Potassium Chloride Carbon Dioxide BUN Creatinine Glucose POC Glucose 40 L 176 H 228 H Lactic Acid Calcium Total Bilirubin AST ALT Alkaline Phosphatase Ammonia Total Creatine Kinase CK-MB (CK-2) Troponin T Total Protein Albumin Prealbumin HDL Cholesterol Vitamin B12 TSH Urine pH Urine WBC (Auto) Hep Bs Antibody, Quant Hepatitis C Antibody 02/12/19 02/12/19 02/13/19 20:57 20:57 00:46 WBC 2.5 L RBC Hgb Hct RDW 18.9 H Plt Count 46 L Lymph % (Auto) 8.3 L Keith % (Auto) 7.6 H Lymph # 0.2 L Seg Neutrophils % 83.1 H Seg Neuts % (Manual) Lymphocytes % (Manual) Monocytes % (Manual) Eosinophils % (Manual) Seg Neutrophils # Man Lymphocytes # (Manual) Eosinophils # (Manual) PT INR APTT POC ABG pH POC ABG pCO2 POC ABG pO2 Sodium Potassium Chloride Carbon Dioxide BUN Creatinine Glucose 189 H POC Glucose 265 H Lactic Acid Calcium Total Bilirubin AST ALT Alkaline Phosphatase Ammonia Total Creatine Kinase CK-MB (CK-2) Troponin T Total Protein Albumin Prealbumin HDL Cholesterol Vitamin B12 TSH Urine pH Urine WBC (Auto) Hep Bs Antibody, Quant Hepatitis C Antibody 02/13/19 02/13/19 02/13/19 04:14 11:37 13:43 WBC RBC Hgb Hct RDW Plt Count Lymph % (Auto) Keith % (Auto) Lymph # Seg Neutrophils % Seg Neuts % (Manual) Lymphocytes % (Manual) Monocytes % (Manual) Eosinophils % (Manual) Seg Neutrophils # Man Lymphocytes # (Manual) Eosinophils # (Manual) PT INR APTT POC ABG pH POC ABG pCO2 POC ABG pO2 Sodium Potassium Chloride Carbon Dioxide BUN Creatinine Glucose POC Glucose 66 L Lactic Acid Calcium Total Bilirubin AST ALT Alkaline Phosphatase Ammonia 83.0 H Total Creatine Kinase CK-MB (CK-2) Troponin T Total Protein Albumin Prealbumin 0.044 L HDL Cholesterol Vitamin B12 TSH Urine pH Urine WBC (Auto) Hep Bs Antibody, Quant Hepatitis C Antibody 02/13/19 02/13/19 02/13/19 16:39 19:27 20:17 WBC 3.2 L RBC 3.17 L Hgb 9.3 L Hct 28.0 L RDW 18.3 H Plt Count 58 L Lymph % (Auto) Keith % (Auto) Lymph # Seg Neutrophils % Seg Neuts % (Manual) 84.0 H Lymphocytes % (Manual) 11.0 L Monocytes % (Manual) Eosinophils % (Manual) Seg Neutrophils # Man Lymphocytes # (Manual) 0.4 L Eosinophils # (Manual) PT INR APTT POC ABG pH POC ABG pCO2 POC ABG pO2 Sodium Potassium Chloride Carbon Dioxide BUN Creatinine Glucose POC Glucose 134 H 156 H Lactic Acid Calcium Total Bilirubin AST ALT Alkaline Phosphatase Ammonia Total Creatine Kinase CK-MB (CK-2) Troponin T Total Protein Albumin Prealbumin HDL Cholesterol Vitamin B12 TSH Urine pH Urine WBC (Auto) Hep Bs Antibody, Quant Hepatitis C Antibody 02/14/19 02/14/19 02/14/19 05:25 08:05 08:05 WBC RBC 3.07 L Hgb 9.3 L Hct 27.5 L RDW 17.9 H Plt Count 70 L Lymph % (Auto) 5.4 L Keith % (Auto) Lymph # 0.4 L Seg Neutrophils % 89.2 H Seg Neuts % (Manual) Lymphocytes % (Manual) Monocytes % (Manual) Eosinophils % (Manual) Seg Neutrophils # Man Lymphocytes # (Manual) Eosinophils # (Manual) PT INR APTT POC ABG pH POC ABG pCO2 POC ABG pO2 Sodium Potassium Chloride 109.8 H Carbon Dioxide 21 L BUN Creatinine 1.4 H D Glucose POC Glucose 143 H Lactic Acid Calcium 7.8 L Total Bilirubin AST ALT Alkaline Phosphatase Ammonia Total Creatine Kinase CK-MB (CK-2) Troponin T Total Protein Albumin Prealbumin HDL Cholesterol Vitamin B12 TSH Urine pH Urine WBC (Auto) Hep Bs Antibody, Quant Hepatitis C Antibody 02/14/19 02/14/19 02/14/19 08:05 12:33 14:00 WBC RBC Hgb Hct RDW Plt Count Lymph % (Auto) Keith % (Auto) Lymph # Seg Neutrophils % Seg Neuts % (Manual) Lymphocytes % (Manual) Monocytes % (Manual) Eosinophils % (Manual) Seg Neutrophils # Man Lymphocytes # (Manual) Eosinophils # (Manual) PT 17.5 H INR 1.47 H APTT POC ABG pH POC ABG pCO2 POC ABG pO2 Sodium Potassium Chloride Carbon Dioxide BUN Creatinine Glucose POC Glucose 131 H 176 H Lactic Acid Calcium Total Bilirubin AST ALT Alkaline Phosphatase Ammonia Total Creatine Kinase CK-MB (CK-2) Troponin T Total Protein Albumin Prealbumin HDL Cholesterol Vitamin B12 TSH Urine pH Urine WBC (Auto) Hep Bs Antibody, Quant Hepatitis C Antibody 02/14/19 02/14/19 02/15/19 15:34 21:10 08:18 WBC RBC Hgb Hct RDW Plt Count Lymph % (Auto) Keith % (Auto) Lymph # Seg Neutrophils % Seg Neuts % (Manual) Lymphocytes % (Manual) Monocytes % (Manual) Eosinophils % (Manual) Seg Neutrophils # Man Lymphocytes # (Manual) Eosinophils # (Manual) PT INR APTT POC ABG pH 7.271 L POC ABG pCO2 49.0 H POC ABG pO2 192 H Sodium Potassium Chloride Carbon Dioxide BUN Creatinine Glucose POC Glucose 130 H 135 H Lactic Acid Calcium Total Bilirubin AST ALT Alkaline Phosphatase Ammonia Total Creatine Kinase CK-MB (CK-2) Troponin T Total Protein Albumin Prealbumin HDL Cholesterol Vitamin B12 TSH Urine pH Urine WBC (Auto) Hep Bs Antibody, Quant Hepatitis C Antibody 02/15/19 02/15/19 02/16/19 09:34 12:34 04:28 WBC RBC Hgb Hct RDW Plt Count Lymph % (Auto) Keith % (Auto) Lymph # Seg Neutrophils % Seg Neuts % (Manual) Lymphocytes % (Manual) Monocytes % (Manual) Eosinophils % (Manual) Seg Neutrophils # Man Lymphocytes # (Manual) Eosinophils # (Manual) PT INR APTT POC ABG pH POC ABG pCO2 POC ABG pO2 129 H Sodium Potassium 3.3 L Chloride 113.3 H Carbon Dioxide 20 L BUN Creatinine Glucose 130 H POC Glucose 119 H Lactic Acid Calcium 8.2 L Total Bilirubin AST ALT Alkaline Phosphatase Ammonia Total Creatine Kinase CK-MB (CK-2) Troponin T Total Protein Albumin Prealbumin HDL Cholesterol Vitamin B12 TSH Urine pH Urine WBC (Auto) Hep Bs Antibody, Quant Hepatitis C Antibody 02/16/19 02/16/19 02/16/19 04:28 08:11 12:59 WBC RBC 2.89 L Hgb 8.8 L Hct 26.0 L RDW 18.3 H Plt Count 95 L Lymph % (Auto) Keith % (Auto) Lymph # Seg Neutrophils % Seg Neuts % (Manual) 93.0 H Lymphocytes % (Manual) 5.0 L Monocytes % (Manual) Eosinophils % (Manual) Seg Neutrophils # Man Lymphocytes # (Manual) 0.3 L Eosinophils # (Manual) PT INR APTT POC ABG pH POC ABG pCO2 POC ABG pO2 Sodium Potassium Chloride Carbon Dioxide BUN Creatinine Glucose POC Glucose 121 H 112 H Lactic Acid Calcium Total Bilirubin AST ALT Alkaline Phosphatase Ammonia Total Creatine Kinase CK-MB (CK-2) Troponin T Total Protein Albumin Prealbumin HDL Cholesterol Vitamin B12 TSH Urine pH Urine WBC (Auto) Hep Bs Antibody, Quant Hepatitis C Antibody 02/16/19 16:58 WBC RBC Hgb Hct RDW Plt Count Lymph % (Auto) Keith % (Auto) Lymph # Seg Neutrophils % Seg Neuts % (Manual) Lymphocytes % (Manual) Monocytes % (Manual) Eosinophils % (Manual) Seg Neutrophils # Man Lymphocytes # (Manual) Eosinophils # (Manual) PT INR APTT POC ABG pH POC ABG pCO2 POC ABG pO2 Sodium Potassium Chloride Carbon Dioxide BUN Creatinine Glucose POC Glucose 128 H Lactic Acid Calcium Total Bilirubin AST ALT Alkaline Phosphatase Ammonia Total Creatine Kinase CK-MB (CK-2) Troponin T Total Protein Albumin Prealbumin HDL Cholesterol Vitamin B12 TSH Urine pH Urine WBC (Auto) Hep Bs Antibody, Quant Hepatitis C Antibody Chest x-ray: report reviewed (Right lung base pneumonia.), image reviewed
[2019-02-16] MEDS: AZITHROMYCIN 500 MG in SODIUM CHLORIDE 0.9% 250ML 250 ML IV SCH (22:03)
[2019-02-17] MEDS: ARFORMOTEROL 15 MCG/2 ML NEBU IH SCH ×2 (07:47→21:25)
[2019-02-17] MEDS: BUDESONIDE 0.5 MG/2 ML NEBU IH SCH ×2 (07:47→21:25)
[2019-02-17] MEDS: INSULIN LISPRO 100 UNIT/ML SUB-Q SCH ×4 (08:50→22:04)
--- NOTE | 2019-02-17 09:35 | Progress Note ---
Assessment and Plan - Patient Problems (1) Acute renal failure (ARF) Current Visit: Yes Status: Acute Plan to address problem: this is pre renal azotemia, due to dehydration. resolving (2) Dehydration Current Visit: Yes Status: Acute Plan to address problem: Same as above.continue with some hydration. (3) Hepatic encephalopathy Current Visit: Yes Status: Acute Plan to address problem: Continue with Lactulose, check hep panel. continue with lactulose [place]. (4) UTI (urinary tract infection) Current Visit: Yes Status: Acute Plan to address problem: leading into sepsis, will continue IV abx. (5) Sepsis Current Visit: Yes Status: Acute Plan to address problem: Same as above. (6) Pneumonia Current Visit: Yes Status: Acute Plan to address problem: continue with IV ABX. Zithromax added. Subjective Date of service: 02/17/19 Principal diagnosis: PEG placement Interval history: Patient seen/examined, resting in bed, records reviewed.Hep C ab positive, and will explain, ABN LFTs, Rhabdo still in progress, and will continue with hydration. Will check urine alkalization.Continue Lactulose, and monitor labs. Patient seen, resting in bed, NAD, labs reviewed.Will continue current management. patient seen, resting in bed, labs/records reviewed.K+ low, and replaced. Patient seen, resting in bed, labs reviewed, new ones ordered. Patient seen, resting in bed, labs reviewed, case d/c with family members at the bed side., will follow Gen surg rec to consult GI instead. will repeat labs, and coags before the procedure. Patient seen/examined, resting in bed, labs reviewed, as well as notes. Will check labs, and coags in am, in preparation for peg tube placement. BP was lower earlier, and adjusted.Xrays reviewed, of the hand/wist, consistent with DJD/demineralization. Patient seen, resting in bed, labs reviewed, awaiting GI for the Peg tube placement. Patient seen/examined, resting in bed, now on BIPAP. consultants notes reviewed, and appreciated. Will continue current management, and once stable, will re eval for peg tube candidate. Patient seen/examined, resting in bed, awoke, non distressed, at this time.Labs reviewed, and fair.She still remains on [place] oxygen.deep suctioning on board.Follow pulm, for clearance ,when stable. Continue IV ABX, and pulm toileting. Patient seen/examined, resting in bed, labs reviewed, and new ones ordered. DR WICK WILL COVER ME FOR FRI,SAT, SUN. once patient recovers, will approach peg tube again. Objective - Constitutional Vitals: Vital Signs - 12hr 02/17/19 02/17/19 02/17/19 04:08 07:47 07:49 Temperature 97.9 F Pulse Rate Respiratory 18 Rate Respiratory 20 Rate [Anterior Bilateral] Blood Pressure 105/49 O2 Sat by Pulse 96 Oximetry 02/17/19 08:11 Temperature 97.9 F Pulse Rate 84 Respiratory 18 Rate Respiratory Rate [Anterior Bilateral] Blood Pressure 94/58 O2 Sat by Pulse 100 Oximetry General appearance: Present: mild distress - EENT Eyes: PERRL, EOM intact ENT: hearing intact, clear oral mucosa Ears: bilateral: normal - Neck Neck: supple, normal ROM - Respiratory Respiratory: bilateral: diminished - Breasts Breasts: deferred - Cardiovascular Rhythm: regular Heart Sounds: Present: S1 & S2. Absent: gallop, rub Extremities: pulses intact, No edema, normal color, Full ROM - Gastrointestinal General gastrointestinal: Present: soft, non-tender, non-distended, normal bowel sounds Rectal Exam: deferred - Genitourinary Female genitourinary: deferred - Integumentary Integumentary: clear, warm, dry - Musculoskeletal Musculoskeletal: 1, strength equal bilaterally - Neurologic Neurologic: moves all extremities - Labs CBC & Chem 7: 02/16/19 04:28 02/16/19 04:28 Labs: Abnormal lab results 02/16/19 02/16/19 02/16/19 Range/Units 12:59 16:58 20:28 POC Glucose 112 H 128 H 111 H (70-105)
[2019-02-17] MEDS: CYPROHEPTADINE 4 MG TAB PO SCH ×2 (11:16→22:03)
[2019-02-17] MEDS: THIAMINE 100 MG TAB PO SCH (11:17)
[2019-02-17] MEDS: cefTRIAXone/NS 1 GM/50 ML 1 GM/50 ML BAG IV SCH (11:19)
[2019-02-17] MEDS: FOLIC ACID 1 MG TAB PO SCH (11:19)
[2019-02-17] MEDS: FLUTICASONE PROPIONATE NASAL SPRAY 16 GM NS SCH (11:19)
--- NOTE | 2019-02-17 11:26 | Event Note ---
Date: 02/17/19 If the patient is not able to undergo placement of PICC line by the PICC team, the patient will be scheduled for placement of a tunneled PICC in the dairy lab technician tomorrow.
--- NOTE | 2019-02-17 13:47 | Progress Note ---
Assessment and Plan Acute hypercapnic respiratory failure Acute hepatic encephalopathy Pneumonia UTI (urinary tract infection) Sepsis Acute renal failure (ARF) Oropharyngeal Dysphagia (CXR with worsening bilateral pulmonary infiltrates) - ? prn diuresis (will follow clinically for now) - conservative volume management - aspiration precautions - continue supplemental oxygen as needed to keep O2 sat's > 90% - BIPAP scheduled qhs with prn daytime use - continue bronchodilators with pulmonary hygiene per RT - continue empiric AB's de-escalate based on clinical and microbiologic data - VTE prophylaxis - Stress ulcer prophylaxis - continue accuchecks with glycemic control per SSI for target blood glucose 140-180 mg/dL - continue mobility protocols / off loading for pressure ulcer prevention - fall precautions - continue other care per attending / other consultants PROGNOSIS: GUARDED CODE STATUS: DNR/DNI Subjective Date of service: 02/17/19 Principal diagnosis: Ac hypercapnic hypoxemic resp failure; Ac. encephalopathy; PNA; UTI Interval history: Patient is seen today for: Acute hypercapnic respiratory failure; Acute hepatic encephalopathy; Pneumonia; UTI (urinary tract infection); Sepsis; Acute renal failure (ARF); Oropharyngeal Dysphagia Seen and examined at bedside; 24hour events reviewed; nursing and respiratory care staff consulted; no adverse overnight events reported to me; resting in bed; still with mildly increased work of breathing; + encephalopathy; no emesis or overt aspiration Objective Vital Signs - 12hr 02/17/19 02/17/19 02/17/19 04:08 07:47 07:49 Temperature 97.9 F Pulse Rate Respiratory 18 Rate Respiratory 20 Rate [Anterior Bilateral] Blood Pressure 105/49 O2 Sat by Pulse 96 Oximetry 02/17/19 08:11 Temperature 97.9 F Pulse Rate 84 Respiratory 18 Rate Respiratory Rate [Anterior Bilateral] Blood Pressure 94/58 O2 Sat by Pulse 100 Oximetry Constitutional: no acute distress, alert, other (elderly looking female, normocephalic with midly increased resp effort at rest) Eyes: non-icteric ENT: oropharynx moist Neck: supple, no JVD Effort: mildly labored Ascultation: Bilateral: diminished breath sounds, rhonchi Percussion: Bilateral: not dull Cardiovascular: regular rate and rhythm Gastrointestinal: normoactive bowel sounds, soft, non-tender, non-distended Integumentary: normal Extremities: no cyanosis, no edema, pulses normal, no ischemia or petechiae Neurologic: pupils equal and round, unable to assess Psychiatric: other (Unable to assess due to mental status.) CBC and BMP: 02/18/19 06:28 02/18/19 06:28 ABG, PT/INR, D-dimer: ABG POC ABG pH 7.377 (7.35-7.45) 02/15/19 09:34 POC ABG pCO2 38.8 (35-45) 02/15/19 09:34 POC ABG pO2 129 (80-105) H 02/15/19 09:34 POC ABG HCO3 22.8 (22-26 mml/L) 02/15/19 09:34 POC ABG Total CO2 24 (23-27mmol/L) 02/15/19 09:34 POC ABG O2 Sat 99 02/15/19 09:34 PT/INR, D-dimer PT 17.5 Sec. (12.2-14.9) H 02/14/19 08:05 INR 1.47 (0.87-1.13) H 02/14/19 08:05 Abnormal lab findings: Abnormal Labs 02/06/19 02/06/19 02/06/19 11:50 11:50 11:50 WBC 12.9 H RBC Hgb Hct RDW 18.8 H Plt Count 32 L Lymph % (Auto) [place] % (Auto) Lymph # Seg Neutrophils % Seg Neuts % (Manual) 84.0 H Lymphocytes % (Manual) 5.0 L Monocytes % (Manual) Eosinophils % (Manual) Seg Neutrophils # Man 10.8 H Lymphocytes # (Manual) 0.6 L Eosinophils # (Manual) PT 15.7 H INR 1.28 H APTT POC ABG pH POC ABG pCO2 POC ABG pO2 Sodium 164 H* Potassium 5.7 H Chloride 127.7 H Carbon Dioxide 20 L BUN 70 H Creatinine 2.8 H Glucose POC Glucose Lactic Acid Calcium Total Bilirubin 1.50 H AST 211 H ALT 252 H Alkaline Phosphatase 246 H Ammonia Total Creatine Kinase 1708 H CK-MB (CK-2) 9.5 H Troponin T 0.114 H* Total Protein Albumin 2.4 L Prealbumin HDL Cholesterol 39 L Vitamin B12 TSH Urine pH Urine WBC (Auto) Hep Bs Antibody, Quant Hepatitis C Antibody 02/06/19 02/06/19 02/06/19 11:50 11:50 11:50 WBC RBC Hgb Hct RDW Plt Count Lymph % (Auto) [place] % (Auto) Lymph # Seg Neutrophils % Seg Neuts % (Manual) Lymphocytes % (Manual) Monocytes % (Manual) Eosinophils % (Manual) Seg Neutrophils # Man Lymphocytes # (Manual) Eosinophils # (Manual) PT INR APTT POC ABG pH POC ABG pCO2 POC ABG pO2 Sodium Potassium Chloride Carbon Dioxide BUN Creatinine Glucose POC Glucose Lactic Acid 3.10 H* Calcium Total Bilirubin AST ALT Alkaline Phosphatase Ammonia 65.0 H Total Creatine Kinase CK-MB (CK-2) Troponin T Total Protein Albumin Prealbumin HDL Cholesterol Vitamin B12 TSH 8.460 H Urine pH Urine WBC (Auto) Hep Bs Antibody, Quant Hepatitis C Antibody 02/06/19 02/06/19 02/06/19 12:45 12:45 20:23 WBC RBC Hgb Hct RDW Plt Count Lymph % (Auto) [place] % (Auto) Lymph # Seg Neutrophils % Seg Neuts % (Manual) Lymphocytes % (Manual) Monocytes % (Manual) Eosinophils % (Manual) Seg Neutrophils # Man Lymphocytes # (Manual) Eosinophils # (Manual) PT 17.4 H INR 1.46 H APTT 41.9 H POC ABG pH POC ABG pCO2 POC ABG pO2 Sodium 165 H* Potassium 5.3 H Chloride 130.8 H Carbon Dioxide 21 L BUN 70 H Creatinine 2.8 H Glucose POC Glucose Lactic Acid 3.00 H* Calcium Total Bilirubin 1.50 H AST 211 H ALT 248 H Alkaline Phosphatase 241 H Ammonia Total Creatine Kinase 1906 H CK-MB (CK-2) 12.6 H Troponin T 0.135 H* Total Protein Albumin 2.5 L Prealbumin HDL Cholesterol Vitamin B12 TSH Urine pH Urine WBC (Auto) Hep Bs Antibody, Quant Hepatitis C Antibody 02/06/19 02/07/19 02/07/19 Unknown 10:31 10:31 WBC RBC Hgb Hct RDW Plt Count Lymph % (Auto) [place] % (Auto) Lymph # Seg Neutrophils % Seg Neuts % (Manual) Lymphocytes % (Manual) Monocytes % (Manual) Eosinophils % (Manual) Seg Neutrophils # Man Lymphocytes # (Manual) Eosinophils # (Manual) PT INR APTT POC ABG pH POC ABG pCO2 POC ABG pO2 Sodium 166 H* Potassium Chloride 134.7 H Carbon Dioxide 20 L BUN 68 H Creatinine 2.0 H Glucose POC Glucose Lactic Acid Calcium Total Bilirubin AST 150 H ALT 191 H Alkaline Phosphatase 204 H Ammonia 62.0 H Total Creatine Kinase CK-MB (CK-2) Troponin T Total Protein Albumin 2.3 L Prealbumin HDL Cholesterol Vitamin B12 TSH Urine pH 8.0 H Urine WBC (Auto) 58.0 H Hep Bs Antibody, Quant Hepatitis C Antibody 02/07/19 02/07/19 02/08/19 10:31 21:02 04:26 WBC RBC 3.50 L 3.39 L Hgb Hct RDW 18.8 H 19.5 H 19.5 H Plt Count 31 L 33 L 35 L Lymph % (Auto) 9.5 L 10.2 L [place] % (Auto) Lymph # 0.7 L 0.7 L Seg Neutrophils % 82.7 H 80.8 H Seg Neuts % (Manual) Lymphocytes % (Manual) Monocytes % (Manual) Eosinophils % (Manual) Seg Neutrophils # Man Lymphocytes # (Manual) Eosinophils # (Manual) PT INR APTT POC ABG pH POC ABG pCO2 POC ABG pO2 Sodium Potassium Chloride Carbon Dioxide BUN Creatinine Glucose POC Glucose Lactic Acid Calcium Total Bilirubin AST ALT Alkaline Phosphatase Ammonia Total Creatine Kinase CK-MB (CK-2) Troponin T Total Protein Albumin Prealbumin HDL Cholesterol Vitamin B12 TSH Urine pH Urine WBC (Auto) Hep Bs Antibody, Quant Hepatitis C Antibody 02/08/19 02/08/19 02/08/19 04:26 04:26 04:26 WBC RBC Hgb Hct RDW Plt Count Lymph % (Auto) [place] % (Auto) Lymph # Seg Neutrophils % Seg Neuts % (Manual) Lymphocytes % (Manual) Monocytes % (Manual) Eosinophils % (Manual) Seg Neutrophils # Man Lymphocytes # (Manual) Eosinophils # (Manual) PT INR APTT POC ABG pH POC ABG pCO2 POC ABG pO2 Sodium Potassium Chloride Carbon Dioxide BUN Creatinine Glucose POC Glucose Lactic Acid Calcium Total Bilirubin AST ALT Alkaline Phosphatase Ammonia Total Creatine Kinase CK-MB (CK-2) Troponin T Total Protein Albumin Prealbumin HDL Cholesterol Vitamin B12 1491 H TSH Urine pH Urine WBC (Auto) Hep Bs Antibody, Quant <5 L Hepatitis C Antibody Reactive A 02/08/19 02/08/19 02/08/19 04:26 04:26 19:12 WBC RBC 3.54 L Hgb Hct RDW 19.2 H Plt Count 41 L Lymph % (Auto) [place] % (Auto) Lymph # Seg Neutrophils % Seg Neuts % (Manual) 86.0 H Lymphocytes % (Manual) 6.0 L Monocytes % (Manual) Eosinophils % (Manual) 5.0 H Seg Neutrophils # Man Lymphocytes # (Manual) 0.4 L Eosinophils # (Manual) PT INR APTT POC ABG pH POC ABG pCO2 POC ABG pO2 Sodium 164 H* Potassium Chloride 135.7 H Carbon Dioxide 21 L BUN 59 H Creatinine 1.8 H Glucose 107 H POC Glucose Lactic Acid Calcium Total Bilirubin AST 112 H ALT 155 H Alkaline Phosphatase 185 H Ammonia 76.0 H Total Creatine Kinase 704 H CK-MB (CK-2) Troponin T Total Protein Albumin 2.1 L Prealbumin HDL Cholesterol Vitamin B12 TSH Urine pH Urine WBC (Auto) Hep Bs Antibody, Quant Hepatitis C Antibody 02/09/19 02/10/19 02/10/19 19:33 03:56 03:56 WBC RBC 3.34 L Hgb 9.8 L Hct RDW 19.6 H Plt Count 43 L Lymph % (Auto) [place] % (Auto) Lymph # Seg Neutrophils % Seg Neuts % (Manual) Lymphocytes % (Manual) Monocytes % (Manual) 9.0 H Eosinophils % (Manual) Seg Neutrophils # Man Lymphocytes # (Manual) Eosinophils # (Manual) PT INR APTT POC ABG pH POC ABG pCO2 POC ABG pO2 Sodium 156 H Potassium 3.3 L Chloride 128.7 H Carbon Dioxide BUN 34 H Creatinine Glucose 155 H POC Glucose Lactic Acid Calcium Total Bilirubin AST 59 H ALT 107 H Alkaline Phosphatase 159 H Ammonia 65.0 H Total Creatine Kinase 262 H CK-MB (CK-2) Troponin T Total Protein 6.2 L Albumin 2.0 L Prealbumin HDL Cholesterol Vitamin B12 TSH Urine pH Urine WBC (Auto) Hep Bs Antibody, Quant Hepatitis C Antibody 02/10/19 02/11/19 02/12/19 19:37 19:40 07:42 WBC 3.1 L 3.6 L RBC 3.05 L 3.27 L 3.26 L Hgb 9.1 L 9.7 L 9.6 L Hct 27.8 L 29.3 L 29.2 L RDW 18.8 H 18.5 H 18.7 H Plt Count 51 L 47 L 43 L Lymph % (Auto) [place] % (Auto) Lymph # 0.4 L Seg Neutrophils % 76.0 H Seg Neuts % (Manual) Lymphocytes % (Manual) 9.0 L Monocytes % (Manual) 9.0 H Eosinophils % (Manual) 12.0 H Seg Neutrophils # Man Lymphocytes # (Manual) 0.4 L Eosinophils # (Manual) 0.5 H PT INR APTT POC ABG pH POC ABG pCO2 POC ABG pO2 Sodium Potassium Chloride Carbon Dioxide BUN Creatinine Glucose POC Glucose Lactic Acid Calcium Total Bilirubin AST ALT Alkaline Phosphatase Ammonia Total Creatine Kinase CK-MB (CK-2) Troponin T Total Protein Albumin Prealbumin HDL Cholesterol Vitamin B12 TSH Urine pH Urine WBC (Auto) Hep Bs Antibody, Quant Hepatitis C Antibody 02/12/19 02/12/19 02/12/19 07:42 17:51 18:05 WBC RBC Hgb Hct RDW Plt Count Lymph % (Auto) [place] % (Auto) Lymph # Seg Neutrophils % Seg Neuts % (Manual) Lymphocytes % (Manual) Monocytes % (Manual) Eosinophils % (Manual) Seg Neutrophils # Man Lymphocytes # (Manual) Eosinophils # (Manual) PT INR APTT POC ABG pH POC ABG pCO2 POC ABG pO2 Sodium Potassium 3.5 L Chloride 115.8 H Carbon Dioxide 20 L BUN Creatinine Glucose 172 H POC Glucose < 40 L < 40 L Lactic Acid Calcium 8.2 L Total Bilirubin AST 53 H ALT 81 H Alkaline Phosphatase 149 H Ammonia Total Creatine Kinase CK-MB (CK-2) Troponin T Total Protein 5.9 L Albumin 1.8 L Prealbumin HDL Cholesterol Vitamin B12 TSH Urine pH Urine WBC (Auto) Hep Bs Antibody, Quant Hepatitis C Antibody 02/12/19 02/12/19 02/12/19 18:19 18:37 20:43 WBC RBC Hgb Hct RDW Plt Count Lymph % (Auto) [place] % (Auto) Lymph # Seg Neutrophils % Seg Neuts % (Manual) Lymphocytes % (Manual) Monocytes % (Manual) Eosinophils % (Manual) Seg Neutrophils # Man Lymphocytes # (Manual) Eosinophils # (Manual) PT INR APTT POC ABG pH POC ABG pCO2 POC ABG pO2 Sodium Potassium Chloride Carbon Dioxide BUN Creatinine Glucose POC Glucose 40 L 176 H 228 H Lactic Acid Calcium Total Bilirubin AST ALT Alkaline Phosphatase Ammonia Total Creatine Kinase CK-MB (CK-2) Troponin T Total Protein Albumin Prealbumin HDL Cholesterol Vitamin B12 TSH Urine pH Urine WBC (Auto) Hep Bs Antibody, Quant Hepatitis C Antibody 02/12/19 02/12/19 02/13/19 20:57 20:57 00:46 WBC 2.5 L RBC Hgb Hct RDW 18.9 H Plt Count 46 L Lymph % (Auto) 8.3 L [place] % (Auto) 7.6 H Lymph # 0.2 L Seg Neutrophils % 83.1 H Seg Neuts % (Manual) Lymphocytes % (Manual) Monocytes % (Manual) Eosinophils % (Manual) Seg Neutrophils # Man Lymphocytes # (Manual) Eosinophils # (Manual) PT INR APTT POC ABG pH POC ABG pCO2 POC ABG pO2 Sodium Potassium Chloride Carbon Dioxide BUN Creatinine Glucose 189 H POC Glucose 265 H Lactic Acid Calcium Total Bilirubin AST ALT Alkaline Phosphatase Ammonia Total Creatine Kinase CK-MB (CK-2) Troponin T Total Protein Albumin Prealbumin HDL Cholesterol Vitamin B12 TSH Urine pH Urine WBC (Auto) Hep Bs Antibody, Quant Hepatitis C Antibody 02/13/19 02/13/19 02/13/19 04:14 11:37 13:43 WBC RBC Hgb Hct RDW Plt Count Lymph % (Auto) [place] % (Auto) Lymph # Seg Neutrophils % Seg Neuts % (Manual) Lymphocytes % (Manual) Monocytes % (Manual) Eosinophils % (Manual) Seg Neutrophils # Man Lymphocytes # (Manual) Eosinophils # (Manual) PT INR APTT POC ABG pH POC ABG pCO2 POC ABG pO2 Sodium Potassium Chloride Carbon Dioxide BUN Creatinine Glucose POC Glucose 66 L Lactic Acid Calcium Total Bilirubin AST ALT Alkaline Phosphatase Ammonia 83.0 H Total Creatine Kinase CK-MB (CK-2) Troponin T Total Protein Albumin Prealbumin 0.044 L HDL Cholesterol Vitamin B12 TSH Urine pH Urine WBC (Auto) Hep Bs Antibody, Quant Hepatitis C Antibody 02/13/19 02/13/19 02/13/19 16:39 19:27 20:17 WBC 3.2 L RBC 3.17 L Hgb 9.3 L Hct 28.0 L RDW 18.3 H Plt Count 58 L Lymph % (Auto) [place] % (Auto) Lymph # Seg Neutrophils % Seg Neuts % (Manual) 84.0 H Lymphocytes % (Manual) 11.0 L Monocytes % (Manual) Eosinophils % (Manual) Seg Neutrophils # Man Lymphocytes # (Manual) 0.4 L Eosinophils # (Manual) PT INR APTT POC ABG pH POC ABG pCO2 POC ABG pO2 Sodium Potassium Chloride Carbon Dioxide BUN Creatinine Glucose POC Glucose 134 H 156 H Lactic Acid Calcium Total Bilirubin AST ALT Alkaline Phosphatase Ammonia Total Creatine Kinase CK-MB (CK-2) Troponin T Total Protein Albumin Prealbumin HDL Cholesterol Vitamin B12 TSH Urine pH Urine WBC (Auto) Hep Bs Antibody, Quant Hepatitis C Antibody 02/14/19 02/14/19 02/14/19 05:25 08:05 08:05 WBC RBC 3.07 L Hgb 9.3 L Hct 27.5 L RDW 17.9 H Plt Count 70 L Lymph % (Auto) 5.4 L [place] % (Auto) Lymph # 0.4 L Seg Neutrophils % 89.2 H Seg Neuts % (Manual) Lymphocytes % (Manual) Monocytes % (Manual) Eosinophils % (Manual) Seg Neutrophils # Man Lymphocytes # (Manual) Eosinophils # (Manual) PT INR APTT POC ABG pH POC ABG pCO2 POC ABG pO2 Sodium Potassium Chloride 109.8 H Carbon Dioxide 21 L BUN Creatinine 1.4 H D Glucose POC Glucose 143 H Lactic Acid Calcium 7.8 L Total Bilirubin AST ALT Alkaline Phosphatase Ammonia Total Creatine Kinase CK-MB (CK-2) Troponin T Total Protein Albumin Prealbumin HDL Cholesterol Vitamin B12 TSH Urine pH Urine WBC (Auto) Hep Bs Antibody, Quant Hepatitis C Antibody 02/14/19 02/14/19 02/14/19 08:05 12:33 14:00 WBC RBC Hgb Hct RDW Plt Count Lymph % (Auto) [place] % (Auto) Lymph # Seg Neutrophils % Seg Neuts % (Manual) Lymphocytes % (Manual) Monocytes % (Manual) Eosinophils % (Manual) Seg Neutrophils # Man Lymphocytes # (Manual) Eosinophils # (Manual) PT 17.5 H INR 1.47 H APTT POC ABG pH POC ABG pCO2 POC ABG pO2 Sodium Potassium Chloride Carbon Dioxide BUN Creatinine Glucose POC Glucose 131 H 176 H Lactic Acid Calcium Total Bilirubin AST ALT Alkaline Phosphatase Ammonia Total Creatine Kinase CK-MB (CK-2) Troponin T Total Protein Albumin Prealbumin HDL Cholesterol Vitamin B12 TSH Urine pH Urine WBC (Auto) Hep Bs Antibody, Quant Hepatitis C Antibody 02/14/19 02/14/19 02/15/19 15:34 21:10 08:18 WBC RBC Hgb Hct RDW Plt Count Lymph % (Auto) [place] % (Auto) Lymph # Seg Neutrophils % Seg Neuts % (Manual) Lymphocytes % (Manual) Monocytes % (Manual) Eosinophils % (Manual) Seg Neutrophils # Man Lymphocytes # (Manual) Eosinophils # (Manual) PT INR APTT POC ABG pH 7.271 L POC ABG pCO2 49.0 H POC ABG pO2 192 H Sodium Potassium Chloride Carbon Dioxide BUN Creatinine Glucose POC Glucose 130 H 135 H Lactic Acid Calcium Total Bilirubin AST ALT Alkaline Phosphatase Ammonia Total Creatine Kinase CK-MB (CK-2) Troponin T Total Protein Albumin Prealbumin HDL Cholesterol Vitamin B12 TSH Urine pH Urine WBC (Auto) Hep Bs Antibody, Quant Hepatitis C Antibody 02/15/19 02/15/19 02/16/19 09:34 12:34 04:28 WBC RBC Hgb Hct RDW Plt Count Lymph % (Auto) [place] % (Auto) Lymph # Seg Neutrophils % Seg Neuts % (Manual) Lymphocytes % (Manual) Monocytes % (Manual) Eosinophils % (Manual) Seg Neutrophils # Man Lymphocytes # (Manual) Eosinophils # (Manual) PT INR APTT POC ABG pH POC ABG pCO2 POC ABG pO2 129 H Sodium Potassium 3.3 L Chloride 113.3 H Carbon Dioxide 20 L BUN Creatinine Glucose 130 H POC Glucose 119 H Lactic Acid Calcium 8.2 L Total Bilirubin AST ALT Alkaline Phosphatase Ammonia Total Creatine Kinase CK-MB (CK-2) Troponin T Total Protein Albumin Prealbumin HDL Cholesterol Vitamin B12 TSH Urine pH Urine WBC (Auto) Hep Bs Antibody, Quant Hepatitis C Antibody 02/16/19 02/16/19 02/16/19 04:28 08:11 12:59 WBC RBC 2.89 L Hgb 8.8 L Hct 26.0 L RDW 18.3 H Plt Count 95 L Lymph % (Auto) [place] % (Auto) Lymph # Seg Neutrophils % Seg Neuts % (Manual) 93.0 H Lymphocytes % (Manual) 5.0 L Monocytes % (Manual) Eosinophils % (Manual) Seg Neutrophils # Man Lymphocytes # (Manual) 0.3 L Eosinophils # (Manual) PT INR APTT POC ABG pH POC ABG pCO2 POC ABG pO2 Sodium Potassium Chloride Carbon Dioxide BUN Creatinine Glucose POC Glucose 121 H 112 H Lactic Acid Calcium Total Bilirubin AST ALT Alkaline Phosphatase Ammonia Total Creatine Kinase CK-MB (CK-2) Troponin T Total Protein Albumin Prealbumin HDL Cholesterol Vitamin B12 TSH Urine pH Urine WBC (Auto) Hep Bs Antibody, Quant Hepatitis C Antibody 02/16/19 02/16/19 16:58 20:28 WBC RBC Hgb Hct RDW Plt Count Lymph % (Auto) [place] % (Auto) Lymph # Seg Neutrophils % Seg Neuts % (Manual) Lymphocytes % (Manual) Monocytes % (Manual) Eosinophils % (Manual) Seg Neutrophils # Man Lymphocytes # (Manual) Eosinophils # (Manual) PT INR APTT POC ABG pH POC ABG pCO2 POC ABG pO2 Sodium Potassium Chloride Carbon Dioxide BUN Creatinine Glucose POC Glucose 128 H 111 H Lactic Acid Calcium Total Bilirubin AST ALT Alkaline Phosphatase Ammonia Total Creatine Kinase CK-MB (CK-2) Troponin T Total Protein Albumin Prealbumin HDL Cholesterol Vitamin B12 TSH Urine pH Urine WBC (Auto) Hep Bs Antibody, Quant Hepatitis C Antibody Chest x-ray: image reviewed (increased bilateral infiltrates with RLL predomin ance) Allied health notes reviewed: nursing
[2019-02-17] MEDS: LACTULOSE ENEMA 1000 ML PR SCH (14:14)
[2019-02-17] MEDS: AZITHROMYCIN 500 MG in SODIUM CHLORIDE 0.9% 250ML 250 ML IV SCH (22:03)
[2019-02-18] MEDS: DEXTROSE 10% IN WATER 1,000 ML IV SCH (00:07)
[2019-02-18 07:48] LABS: Basophils % (Auto) 0.5 % (0.0-1.8); Eosinophils # (Auto) 0.1 K/mm3 (0.0-0.4); Eosinophils % (Auto) 1.7 % (0.0-4.3); Hematocrit 26.3 % (30.3-42.9); Hemoglobin 8.7 gm/dl (10.1-14.3); Lymphocytes # (Auto) 0.5 K/mm3 (1.2-5.4); Lymphocytes % (Auto) 13.5 % (13.4-35.0); Mean Corpuscular HGB Conc 33 % (30-34); Mean Corpuscular Volume 90 fl (79-97); Monocytes # (Auto) 0.4 K/mm3 (0.0-0.8); Monocytes % (Auto) 8.9 % (0.0-7.3); Red Blood Count 2.91 M/mm3 (3.65-5.03); Red Cell Distribution Width 18.5 % (13.2-15.2)
[2019-02-18 07:53] LABS: Platelet Count 99 K/mm3 (140-440)
[2019-02-18 08:00] LABS: BUN/Creatinine Ratio 11; Blood Urea Nitrogen 9 mg/dL (7-17); Calcium 8.1 mg/dL (8.4-10.2); Hemolysis Index 3
[2019-02-18] MEDS: ARFORMOTEROL 15 MCG/2 ML NEBU IH SCH ×2 (08:09→20:46)
[2019-02-18] MEDS: BUDESONIDE 0.5 MG/2 ML NEBU IH SCH ×2 (08:09→20:47)
[2019-02-18] MEDS: INSULIN LISPRO 100 UNIT/ML SUB-Q SCH ×4 (09:00→21:56)
[2019-02-18] MEDS: cefTRIAXone/NS 1 GM/50 ML 1 GM/50 ML BAG IV SCH (09:53)
[2019-02-18] MEDS: CYPROHEPTADINE 4 MG TAB PO SCH ×2 (09:55→21:56)
[2019-02-18] MEDS: FOLIC ACID 1 MG TAB PO SCH (09:55)
[2019-02-18] MEDS: THIAMINE 100 MG TAB PO SCH (09:57)
--- NOTE | 2019-02-18 10:13 | Progress Note ---
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 Patient has been on antibiotics for UTI and pneumonia. Work up also includes CT head, which showed no acute changes but mild to moderate cerebral atrophy. GI consulted for PEG placement but not stable enough for a PEG tube placement. - Cirrhosis Continue to moniotr amonia level and avoid hepatotoxic agents GI following - Hepatic encephalopabhty Continue to manage Liver cirrhosis and respiratory failure - Oropharyngeal dysphagia/malnutrition For PEG tube placementwhen clinically stable - Acute hypercapnic respiratory failure continue with bronchodilators and supplemental oxygen as needed to keep O2 sat's > 90% BIPAP scheduled qhs with prn daytime use per [employer] - Pneumonia CXR showed worsenign apple pul infiltrarte continue with iv antibiotic Blood Cx, no growth so far - Sepsis - resolving Continue with iv antibiotic and f/u blood Cx result - UTI (urinary tract infection) On recephin - Acute renal failure (ARF) - resolved PROGNOSIS: GUARDED CODE STATUS: DNR/DNI Time spent : 30 mins Subjective Date of service: 02/18/19 Principal diagnosis: Ac hypercapnic hypoxemic resp failure; Ac. encephalopathy; PNA; UTI Interval history: Coverign for Dr Carter. Pt seen and examined. Still confused Objective - Exam Narrative Exam: Constitutional: Confused, Head: Normocephalic atraumatic Eyes: Pupils are equal round and reactive to light Nose: No enlarged turbinates, no septal deviation. Mouth: Moist mucous membranes. Neck: Supple no thyromegaly. No bruit. No JVD Heart: Regular rate and rhythm, S1-S2 normal. No rubs murmurs or gallop Lungs: Decreased breath sounds with rhonchi Abdomen: Soft, nontender. Bowel sound are present. Extremities: No edema, no cyanosis, no clubbing. Neuro: Confused. No focal sensory or motor deficit. Skin: No rashes or hyperpigmented spots Musculoskeletal system: No joint pain or swelling Hematological: No petechia or subcutanous hemorrhages. Immunological: No multiple septic spots on the skin Lymphatic: No generalized lymphadenopathy Psychiatry: Confused - Constitutional Vitals: Vital Signs - 12hr 02/17/19 02/18/19 02/18/19 22:15 00:08 04:14 Temperature 98.2 F 98.0 F Pulse Rate 88 68 Pulse Rate [ Anterior Bilateral] Pulse Rate [ 68 Apical] Pulse Rate [ 68 From Monitor] Respiratory 18 18 18 Rate Respiratory Rate [Anterior Bilateral] Blood Pressure 140/67 93/49 O2 Sat by Pulse 96 96 100 Oximetry 02/18/19 08:09 Temperature Pulse Rate Pulse Rate [ 83 Anterior Bilateral] Pulse Rate [ Apical] Pulse Rate [ From Monitor] Respiratory Rate Respiratory 18 Rate [Anterior Bilateral] Blood Pressure O2 Sat by Pulse 97 Oximetry - Labs CBC & Chem 7: 02/18/19 06:28 02/18/19 06:28 Labs: Abnormal lab results 02/18/19 02/18/19 02/18/19 Range/Units 04:25 06:28 06:28 WBC 3.9 L (4.5-11.0) K/mm3 RBC 2.91 L (3.65-5.03) M/mm3 Hgb 8.7 L (10.1-14.3) gm/dl Hct 26.3 L (30.3-42.9) % RDW 18.5 H (13.2-15.2) % Plt Count 99 L (140-440) K/mm3 [place] % (Auto) 8.9 H (0.0-7.3) % Lymph # 0.5 L (1.2-5.4) K/mm3 Seg Neutrophils % 75.4 H (40.0-70.0) % Potassium 3.2 L (3.6-5.0) mmol/L Chloride 111.4 H (98-107) mmol/L Glucose 113 H (65-100) mg/dL POC Glucose 143 H (70-105) Calcium 8.1 L (8.4-10.2) mg/dL
--- NOTE | 2019-02-18 11:10 | Progress Note ---
Assessment and Plan Acute hypercapnic respiratory failure Acute hepatic encephalopathy Pneumonia UTI (urinary tract infection) Sepsis Acute renal failure (ARF) Oropharyngeal Dysphagia (CXR with worsening bilateral pulmonary infiltrates) - lasix 20 mg I.V. daily X 2 doses - watch hemodynamics - continue conservative volume management - aspiration precautions - continue supplemental oxygen as needed to keep O2 sat's > 90% - BIPAP scheduled qhs with prn daytime use - continue bronchodilators with pulmonary hygiene per RT - continue empiric AB's de-escalate based on clinical and microbiologic data - VTE prophylaxis - Stress ulcer prophylaxis - continue accuchecks with glycemic control per SSI for target blood glucose 140-180 mg/dL - continue mobility protocols / off loading for pressure ulcer prevention - fall precautions - continue other care per attending / other consultants PROGNOSIS: GUARDED CODE STATUS: FULL Subjective Date of service: 02/18/19 Principal diagnosis: Ac hypercapnic hypoxemic resp failure; Ac. encephalopathy; PNA; UTI Interval history: Patient is seen today for: Acute hypercapnic respiratory failure; Acute hepatic encephalopathy; Pneumonia; UTI (urinary tract infection); Sepsis; Acute renal failure (ARF); Oropharyngeal Dysphagia Seen and examined at bedside; 24hour events reviewed; nursing and respiratory care staff consulted; no adverse overnight events reported to me; resting in bed; for PICC line placement; remains on supplemental oxygen; no high grade fevers Objective Vital Signs - 12hr 02/18/19 02/18/19 02/18/19 00:08 04:14 08:09 Temperature 98.2 F 98.0 F Pulse Rate 88 68 Pulse Rate [ 83 Anterior Bilateral] Respiratory 18 18 Rate Respiratory 18 Rate [Anterior Bilateral] Blood Pressure 140/67 93/49 O2 Sat by Pulse 96 100 97 Oximetry Constitutional: no acute distress, alert, other (elderly looking female, normocephalic with midly increased resp effort at rest) Eyes: non-icteric ENT: oropharynx moist Neck: supple, no JVD Effort: mildly labored Ascultation: Bilateral: diminished breath sounds, rhonchi Percussion: Bilateral: not dull Cardiovascular: regular rate and rhythm Gastrointestinal: normoactive bowel sounds, soft, non-tender, non-distended Integumentary: normal Extremities: no cyanosis, no edema, pulses normal, no ischemia or petechiae Neurologic: pupils equal and round, unable to assess Psychiatric: other (Unable to assess due to mental status.) CBC and BMP: 02/19/19 03:51 02/19/19 03:51 ABG, PT/INR, D-dimer: ABG POC ABG pH 7.377 (7.35-7.45) 02/15/19 09:34 POC ABG pCO2 38.8 (35-45) 02/15/19 09:34 POC ABG pO2 129 (80-105) H 02/15/19 09:34 POC ABG HCO3 22.8 (22-26 mml/L) 02/15/19 09:34 POC ABG Total CO2 24 (23-27mmol/L) 02/15/19 09:34 POC ABG O2 Sat 99 02/15/19 09:34 PT/INR, D-dimer PT 17.5 Sec. (12.2-14.9) H 02/14/19 08:05 INR 1.47 (0.87-1.13) H 02/14/19 08:05 Abnormal lab findings: Abnormal Labs 02/06/19 02/06/19 02/06/19 11:50 11:50 11:50 WBC 12.9 H RBC Hgb Hct RDW 18.8 H Plt Count 32 L Lymph % (Auto) [place] % (Auto) Lymph # Seg Neutrophils % Seg Neuts % (Manual) 84.0 H Lymphocytes % (Manual) 5.0 L Monocytes % (Manual) Eosinophils % (Manual) Seg Neutrophils # Man 10.8 H Lymphocytes # (Manual) 0.6 L Eosinophils # (Manual) PT 15.7 H INR 1.28 H APTT POC ABG pH POC ABG pCO2 POC ABG pO2 Sodium 164 H* Potassium 5.7 H Chloride 127.7 H Carbon Dioxide 20 L BUN 70 H Creatinine 2.8 H Glucose POC Glucose Lactic Acid Calcium Total Bilirubin 1.50 H AST 211 H ALT 252 H Alkaline Phosphatase 246 H Ammonia Total Creatine Kinase 1708 H CK-MB (CK-2) 9.5 H Troponin T 0.114 H* Total Protein Albumin 2.4 L Prealbumin HDL Cholesterol 39 L Vitamin B12 TSH Urine pH Urine WBC (Auto) Hep Bs Antibody, Quant Hepatitis C Antibody 02/06/19 02/06/19 02/06/19 11:50 11:50 11:50 WBC RBC Hgb Hct RDW Plt Count Lymph % (Auto) [place] % (Auto) Lymph # Seg Neutrophils % Seg Neuts % (Manual) Lymphocytes % (Manual) Monocytes % (Manual) Eosinophils % (Manual) Seg Neutrophils # Man Lymphocytes # (Manual) Eosinophils # (Manual) PT INR APTT POC ABG pH POC ABG pCO2 POC ABG pO2 Sodium Potassium Chloride Carbon Dioxide BUN Creatinine Glucose POC Glucose Lactic Acid 3.10 H* Calcium Total Bilirubin AST ALT Alkaline Phosphatase Ammonia 65.0 H Total Creatine Kinase CK-MB (CK-2) Troponin T Total Protein Albumin Prealbumin HDL Cholesterol Vitamin B12 TSH 8.460 H Urine pH Urine WBC (Auto) Hep Bs Antibody, Quant Hepatitis C Antibody 02/06/19 02/06/19 02/06/19 12:45 12:45 20:23 WBC RBC Hgb Hct RDW Plt Count Lymph % (Auto) [place] % (Auto) Lymph # Seg Neutrophils % Seg Neuts % (Manual) Lymphocytes % (Manual) Monocytes % (Manual) Eosinophils % (Manual) Seg Neutrophils # Man Lymphocytes # (Manual) Eosinophils # (Manual) PT 17.4 H INR 1.46 H APTT 41.9 H POC ABG pH POC ABG pCO2 POC ABG pO2 Sodium 165 H* Potassium 5.3 H Chloride 130.8 H Carbon Dioxide 21 L BUN 70 H Creatinine 2.8 H Glucose POC Glucose Lactic Acid 3.00 H* Calcium Total Bilirubin 1.50 H AST 211 H ALT 248 H Alkaline Phosphatase 241 H Ammonia Total Creatine Kinase 1906 H CK-MB (CK-2) 12.6 H Troponin T 0.135 H* Total Protein Albumin 2.5 L Prealbumin HDL Cholesterol Vitamin B12 TSH Urine pH Urine WBC (Auto) Hep Bs Antibody, Quant Hepatitis C Antibody 02/06/19 02/07/19 02/07/19 Unknown 10:31 10:31 WBC RBC Hgb Hct RDW Plt Count Lymph % (Auto) [place] % (Auto) Lymph # Seg Neutrophils % Seg Neuts % (Manual) Lymphocytes % (Manual) Monocytes % (Manual) Eosinophils % (Manual) Seg Neutrophils # Man Lymphocytes # (Manual) Eosinophils # (Manual) PT INR APTT POC ABG pH POC ABG pCO2 POC ABG pO2 Sodium 166 H* Potassium Chloride 134.7 H Carbon Dioxide 20 L BUN 68 H Creatinine 2.0 H Glucose POC Glucose Lactic Acid Calcium Total Bilirubin AST 150 H ALT 191 H Alkaline Phosphatase 204 H Ammonia 62.0 H Total Creatine Kinase CK-MB (CK-2) Troponin T Total Protein Albumin 2.3 L Prealbumin HDL Cholesterol Vitamin B12 TSH Urine pH 8.0 H Urine WBC (Auto) 58.0 H Hep Bs Antibody, Quant Hepatitis C Antibody 02/07/19 02/07/19 02/08/19 10:31 21:02 04:26 WBC RBC 3.50 L 3.39 L Hgb Hct RDW 18.8 H 19.5 H 19.5 H Plt Count 31 L 33 L 35 L Lymph % (Auto) 9.5 L 10.2 L [place] % (Auto) Lymph # 0.7 L 0.7 L Seg Neutrophils % 82.7 H 80.8 H Seg Neuts % (Manual) Lymphocytes % (Manual) Monocytes % (Manual) Eosinophils % (Manual) Seg Neutrophils # Man Lymphocytes # (Manual) Eosinophils # (Manual) PT INR APTT POC ABG pH POC ABG pCO2 POC ABG pO2 Sodium Potassium Chloride Carbon Dioxide BUN Creatinine Glucose POC Glucose Lactic Acid Calcium Total Bilirubin AST ALT Alkaline Phosphatase Ammonia Total Creatine Kinase CK-MB (CK-2) Troponin T Total Protein Albumin Prealbumin HDL Cholesterol Vitamin B12 TSH Urine pH Urine WBC (Auto) Hep Bs Antibody, Quant Hepatitis C Antibody 02/08/19 02/08/19 02/08/19 04:26 04:26 04:26 WBC RBC Hgb Hct RDW Plt Count Lymph % (Auto) [place] % (Auto) Lymph # Seg Neutrophils % Seg Neuts % (Manual) Lymphocytes % (Manual) Monocytes % (Manual) Eosinophils % (Manual) Seg Neutrophils # Man Lymphocytes # (Manual) Eosinophils # (Manual) PT INR APTT POC ABG pH POC ABG pCO2 POC ABG pO2 Sodium Potassium Chloride Carbon Dioxide BUN Creatinine Glucose POC Glucose Lactic Acid Calcium Total Bilirubin AST ALT Alkaline Phosphatase Ammonia Total Creatine Kinase CK-MB (CK-2) Troponin T Total Protein Albumin Prealbumin HDL Cholesterol Vitamin B12 1491 H TSH Urine pH Urine WBC (Auto) Hep Bs Antibody, Quant <5 L Hepatitis C Antibody Reactive A 02/08/19 02/08/19 02/08/19 04:26 04:26 19:12 WBC RBC 3.54 L Hgb Hct RDW 19.2 H Plt Count 41 L Lymph % (Auto) [place] % (Auto) Lymph # Seg Neutrophils % Seg Neuts % (Manual) 86.0 H Lymphocytes % (Manual) 6.0 L Monocytes % (Manual) Eosinophils % (Manual) 5.0 H Seg Neutrophils # Man Lymphocytes # (Manual) 0.4 L Eosinophils # (Manual) PT INR APTT POC ABG pH POC ABG pCO2 POC ABG pO2 Sodium 164 H* Potassium Chloride 135.7 H Carbon Dioxide 21 L BUN 59 H Creatinine 1.8 H Glucose 107 H POC Glucose Lactic Acid Calcium Total Bilirubin AST 112 H ALT 155 H Alkaline Phosphatase 185 H Ammonia 76.0 H Total Creatine Kinase 704 H CK-MB (CK-2) Troponin T Total Protein Albumin 2.1 L Prealbumin HDL Cholesterol Vitamin B12 TSH Urine pH Urine WBC (Auto) Hep Bs Antibody, Quant Hepatitis C Antibody 02/09/19 02/10/19 02/10/19 19:33 03:56 03:56 WBC RBC 3.34 L Hgb 9.8 L Hct RDW 19.6 H Plt Count 43 L Lymph % (Auto) [place] % (Auto) Lymph # Seg Neutrophils % Seg Neuts % (Manual) Lymphocytes % (Manual) Monocytes % (Manual) 9.0 H Eosinophils % (Manual) Seg Neutrophils # Man Lymphocytes # (Manual) Eosinophils # (Manual) PT INR APTT POC ABG pH POC ABG pCO2 POC ABG pO2 Sodium 156 H Potassium 3.3 L Chloride 128.7 H Carbon Dioxide BUN 34 H Creatinine Glucose 155 H POC Glucose Lactic Acid Calcium Total Bilirubin AST 59 H ALT 107 H Alkaline Phosphatase 159 H Ammonia 65.0 H Total Creatine Kinase 262 H CK-MB (CK-2) Troponin T Total Protein 6.2 L Albumin 2.0 L Prealbumin HDL Cholesterol Vitamin B12 TSH Urine pH Urine WBC (Auto) Hep Bs Antibody, Quant Hepatitis C Antibody 02/10/19 02/11/19 02/12/19 19:37 19:40 07:42 WBC 3.1 L 3.6 L RBC 3.05 L 3.27 L 3.26 L Hgb 9.1 L 9.7 L 9.6 L Hct 27.8 L 29.3 L 29.2 L RDW 18.8 H 18.5 H 18.7 H Plt Count 51 L 47 L 43 L Lymph % (Auto) [place] % (Auto) Lymph # 0.4 L Seg Neutrophils % 76.0 H Seg Neuts % (Manual) Lymphocytes % (Manual) 9.0 L Monocytes % (Manual) 9.0 H Eosinophils % (Manual) 12.0 H Seg Neutrophils # Man Lymphocytes # (Manual) 0.4 L Eosinophils # (Manual) 0.5 H PT INR APTT POC ABG pH POC ABG pCO2 POC ABG pO2 Sodium Potassium Chloride Carbon Dioxide BUN Creatinine Glucose POC Glucose Lactic Acid Calcium Total Bilirubin AST ALT Alkaline Phosphatase Ammonia Total Creatine Kinase CK-MB (CK-2) Troponin T Total Protein Albumin Prealbumin HDL Cholesterol Vitamin B12 TSH Urine pH Urine WBC (Auto) Hep Bs Antibody, Quant Hepatitis C Antibody 02/12/19 02/12/19 02/12/19 07:42 17:51 18:05 WBC RBC Hgb Hct RDW Plt Count Lymph % (Auto) [place] % (Auto) Lymph # Seg Neutrophils % Seg Neuts % (Manual) Lymphocytes % (Manual) Monocytes % (Manual) Eosinophils % (Manual) Seg Neutrophils # Man Lymphocytes # (Manual) Eosinophils # (Manual) PT INR APTT POC ABG pH POC ABG pCO2 POC ABG pO2 Sodium Potassium 3.5 L Chloride 115.8 H Carbon Dioxide 20 L BUN Creatinine Glucose 172 H POC Glucose < 40 L < 40 L Lactic Acid Calcium 8.2 L Total Bilirubin AST 53 H ALT 81 H Alkaline Phosphatase 149 H Ammonia Total Creatine Kinase CK-MB (CK-2) Troponin T Total Protein 5.9 L Albumin 1.8 L Prealbumin HDL Cholesterol Vitamin B12 TSH Urine pH Urine WBC (Auto) Hep Bs Antibody, Quant Hepatitis C Antibody 02/12/19 02/12/19 02/12/19 18:19 18:37 20:43 WBC RBC Hgb Hct RDW Plt Count Lymph % (Auto) [place] % (Auto) Lymph # Seg Neutrophils % Seg Neuts % (Manual) Lymphocytes % (Manual) Monocytes % (Manual) Eosinophils % (Manual) Seg Neutrophils # Man Lymphocytes # (Manual) Eosinophils # (Manual) PT INR APTT POC ABG pH POC ABG pCO2 POC ABG pO2 Sodium Potassium Chloride Carbon Dioxide BUN Creatinine Glucose POC Glucose 40 L 176 H 228 H Lactic Acid Calcium Total Bilirubin AST ALT Alkaline Phosphatase Ammonia Total Creatine Kinase CK-MB (CK-2) Troponin T Total Protein Albumin Prealbumin HDL Cholesterol Vitamin B12 TSH Urine pH Urine WBC (Auto) Hep Bs Antibody, Quant Hepatitis C Antibody 02/12/19 02/12/19 02/13/19 20:57 20:57 00:46 WBC 2.5 L RBC Hgb Hct RDW 18.9 H Plt Count 46 L Lymph % (Auto) 8.3 L [place] % (Auto) 7.6 H Lymph # 0.2 L Seg Neutrophils % 83.1 H Seg Neuts % (Manual) Lymphocytes % (Manual) Monocytes % (Manual) Eosinophils % (Manual) Seg Neutrophils # Man Lymphocytes # (Manual) Eosinophils # (Manual) PT INR APTT POC ABG pH POC ABG pCO2 POC ABG pO2 Sodium Potassium Chloride Carbon Dioxide BUN Creatinine Glucose 189 H POC Glucose 265 H Lactic Acid Calcium Total Bilirubin AST ALT Alkaline Phosphatase Ammonia Total Creatine Kinase CK-MB (CK-2) Troponin T Total Protein Albumin Prealbumin HDL Cholesterol Vitamin B12 TSH Urine pH Urine WBC (Auto) Hep Bs Antibody, Quant Hepatitis C Antibody 02/13/19 02/13/19 02/13/19 04:14 11:37 13:43 WBC RBC Hgb Hct RDW Plt Count Lymph % (Auto) [place] % (Auto) Lymph # Seg Neutrophils % Seg Neuts % (Manual) Lymphocytes % (Manual) Monocytes % (Manual) Eosinophils % (Manual) Seg Neutrophils # Man Lymphocytes # (Manual) Eosinophils # (Manual) PT INR APTT POC ABG pH POC ABG pCO2 POC ABG pO2 Sodium Potassium Chloride Carbon Dioxide BUN Creatinine Glucose POC Glucose 66 L Lactic Acid Calcium Total Bilirubin AST ALT Alkaline Phosphatase Ammonia 83.0 H Total Creatine Kinase CK-MB (CK-2) Troponin T Total Protein Albumin Prealbumin 0.044 L HDL Cholesterol Vitamin B12 TSH Urine pH Urine WBC (Auto) Hep Bs Antibody, Quant Hepatitis C Antibody 02/13/19 02/13/19 02/13/19 16:39 19:27 20:17 WBC 3.2 L RBC 3.17 L Hgb 9.3 L Hct 28.0 L RDW 18.3 H Plt Count 58 L Lymph % (Auto) [place] % (Auto) Lymph # Seg Neutrophils % Seg Neuts % (Manual) 84.0 H Lymphocytes % (Manual) 11.0 L Monocytes % (Manual) Eosinophils % (Manual) Seg Neutrophils # Man Lymphocytes # (Manual) 0.4 L Eosinophils # (Manual) PT INR APTT POC ABG pH POC ABG pCO2 POC ABG pO2 Sodium Potassium Chloride Carbon Dioxide BUN Creatinine Glucose POC Glucose 134 H 156 H Lactic Acid Calcium Total Bilirubin AST ALT Alkaline Phosphatase Ammonia Total Creatine Kinase CK-MB (CK-2) Troponin T Total Protein Albumin Prealbumin HDL Cholesterol Vitamin B12 TSH Urine pH Urine WBC (Auto) Hep Bs Antibody, Quant Hepatitis C Antibody 02/14/19 02/14/19 02/14/19 05:25 08:05 08:05 WBC RBC 3.07 L Hgb 9.3 L Hct 27.5 L RDW 17.9 H Plt Count 70 L Lymph % (Auto) 5.4 L [place] % (Auto) Lymph # 0.4 L Seg Neutrophils % 89.2 H Seg Neuts % (Manual) Lymphocytes % (Manual) Monocytes % (Manual) Eosinophils % (Manual) Seg Neutrophils # Man Lymphocytes # (Manual) Eosinophils # (Manual) PT INR APTT POC ABG pH POC ABG pCO2 POC ABG pO2 Sodium Potassium Chloride 109.8 H Carbon Dioxide 21 L BUN Creatinine 1.4 H D Glucose POC Glucose 143 H Lactic Acid Calcium 7.8 L Total Bilirubin AST ALT Alkaline Phosphatase Ammonia Total Creatine Kinase CK-MB (CK-2) Troponin T Total Protein Albumin Prealbumin HDL Cholesterol Vitamin B12 TSH Urine pH Urine WBC (Auto) Hep Bs Antibody, Quant Hepatitis C Antibody 02/14/19 02/14/19 02/14/19 08:05 12:33 14:00 WBC RBC Hgb Hct RDW Plt Count Lymph % (Auto) [place] % (Auto) Lymph # Seg Neutrophils % Seg Neuts % (Manual) Lymphocytes % (Manual) Monocytes % (Manual) Eosinophils % (Manual) Seg Neutrophils # Man Lymphocytes # (Manual) Eosinophils # (Manual) PT 17.5 H INR 1.47 H APTT POC ABG pH POC ABG pCO2 POC ABG pO2 Sodium Potassium Chloride Carbon Dioxide BUN Creatinine Glucose POC Glucose 131 H 176 H Lactic Acid Calcium Total Bilirubin AST ALT Alkaline Phosphatase Ammonia Total Creatine Kinase CK-MB (CK-2) Troponin T Total Protein Albumin Prealbumin HDL Cholesterol Vitamin B12 TSH Urine pH Urine WBC (Auto) Hep Bs Antibody, Quant Hepatitis C Antibody 02/14/19 02/14/19 02/15/19 15:34 21:10 08:18 WBC RBC Hgb Hct RDW Plt Count Lymph % (Auto) [place] % (Auto) Lymph # Seg Neutrophils % Seg Neuts % (Manual) Lymphocytes % (Manual) Monocytes % (Manual) Eosinophils % (Manual) Seg Neutrophils # Man Lymphocytes # (Manual) Eosinophils # (Manual) PT INR APTT POC ABG pH 7.271 L POC ABG pCO2 49.0 H POC ABG pO2 192 H Sodium Potassium Chloride Carbon Dioxide BUN Creatinine Glucose POC Glucose 130 H 135 H Lactic Acid Calcium Total Bilirubin AST ALT Alkaline Phosphatase Ammonia Total Creatine Kinase CK-MB (CK-2) Troponin T Total Protein Albumin Prealbumin HDL Cholesterol Vitamin B12 TSH Urine pH Urine WBC (Auto) Hep Bs Antibody, Quant Hepatitis C Antibody 02/15/19 02/15/19 02/16/19 09:34 12:34 04:28 WBC RBC Hgb Hct RDW Plt Count Lymph % (Auto) [place] % (Auto) Lymph # Seg Neutrophils % Seg Neuts % (Manual) Lymphocytes % (Manual) Monocytes % (Manual) Eosinophils % (Manual) Seg Neutrophils # Man Lymphocytes # (Manual) Eosinophils # (Manual) PT INR APTT POC ABG pH POC ABG pCO2 POC ABG pO2 129 H Sodium Potassium 3.3 L Chloride 113.3 H Carbon Dioxide 20 L BUN Creatinine Glucose 130 H POC Glucose 119 H Lactic Acid Calcium 8.2 L Total Bilirubin AST ALT Alkaline Phosphatase Ammonia Total Creatine Kinase CK-MB (CK-2) Troponin T Total Protein Albumin Prealbumin HDL Cholesterol Vitamin B12 TSH Urine pH Urine WBC (Auto) Hep Bs Antibody, Quant Hepatitis C Antibody 02/16/19 02/16/19 02/16/19 04:28 08:11 12:59 WBC RBC 2.89 L Hgb 8.8 L Hct 26.0 L RDW 18.3 H Plt Count 95 L Lymph % (Auto) [place] % (Auto) Lymph # Seg Neutrophils % Seg Neuts % (Manual) 93.0 H Lymphocytes % (Manual) 5.0 L Monocytes % (Manual) Eosinophils % (Manual) Seg Neutrophils # Man Lymphocytes # (Manual) 0.3 L Eosinophils # (Manual) PT INR APTT POC ABG pH POC ABG pCO2 POC ABG pO2 Sodium Potassium Chloride Carbon Dioxide BUN Creatinine Glucose POC Glucose 121 H 112 H Lactic Acid Calcium Total Bilirubin AST ALT Alkaline Phosphatase Ammonia Total Creatine Kinase CK-MB (CK-2) Troponin T Total Protein Albumin Prealbumin HDL Cholesterol Vitamin B12 TSH Urine pH Urine WBC (Auto) Hep Bs Antibody, Quant Hepatitis C Antibody 02/16/19 02/16/19 02/18/19 16:58 20:28 04:25 WBC RBC Hgb Hct RDW Plt Count Lymph % (Auto) [place] % (Auto) Lymph # Seg Neutrophils % Seg Neuts % (Manual) Lymphocytes % (Manual) Monocytes % (Manual) Eosinophils % (Manual) Seg Neutrophils # Man Lymphocytes # (Manual) Eosinophils # (Manual) PT INR APTT POC ABG pH POC ABG pCO2 POC ABG pO2 Sodium Potassium Chloride Carbon Dioxide BUN Creatinine Glucose POC Glucose 128 H 111 H 143 H Lactic Acid Calcium Total Bilirubin AST ALT Alkaline Phosphatase Ammonia Total Creatine Kinase CK-MB (CK-2) Troponin T Total Protein Albumin Prealbumin HDL Cholesterol Vitamin B12 TSH Urine pH Urine WBC (Auto) Hep Bs Antibody, Quant Hepatitis C Antibody 02/18/19 02/18/19 06:28 06:28 WBC 3.9 L RBC 2.91 L Hgb 8.7 L Hct 26.3 L RDW 18.5 H Plt Count 99 L Lymph % (Auto) [place] % (Auto) 8.9 H Lymph # 0.5 L Seg Neutrophils % 75.4 H Seg Neuts % (Manual) Lymphocytes % (Manual) Monocytes % (Manual) Eosinophils % (Manual) Seg Neutrophils # Man Lymphocytes # (Manual) Eosinophils # (Manual) PT INR APTT POC ABG pH POC ABG pCO2 POC ABG pO2 Sodium Potassium 3.2 L Chloride 111.4 H Carbon Dioxide BUN Creatinine Glucose 113 H POC Glucose Lactic Acid Calcium 8.1 L Total Bilirubin AST ALT Alkaline Phosphatase Ammonia Total Creatine Kinase CK-MB (CK-2) Troponin T Total Protein Albumin Prealbumin HDL Cholesterol Vitamin B12 TSH Urine pH Urine WBC (Auto) Hep Bs Antibody, Quant Hepatitis C Antibody Allied health notes reviewed: nursing
[2019-02-18] MEDS: POTASSIUM CHLORIDE 10 MEQ 10 MEQ/100 ML BAG IV SCH ×2 (11:22→15:00)
[2019-02-18] MEDS ORDERED: LIDOCAINE (2%) 20 MG/1 ML VIAL 20 ML MDV INFILTRATI ONE (13:45)
[2019-02-18] MEDS ORDERED: HEPARIN/NS 5000 UNIT/500ML 500 ML IR ONE (13:45)
[2019-02-18] MEDS ORDERED: SODIUM CHLORIDE 0.9% 250ML 250 ML ONE (13:46)
[2019-02-18] MEDS ORDERED: fentaNYL 100 MCG/2 ML INJ ONE (13:47)
[2019-02-18] MEDS ORDERED: MIDAZOLAM 2 MG/2 ML INJ ONE (13:47)
[2019-02-18] MEDS: LACTULOSE ENEMA 1000 ML PR SCH (14:21)
--- NOTE | 2019-02-18 14:21 | Operative Report ---
Operative Report Operative Report: Exam: Ultrasound and fluoroscopic guided placement of tunneled PICC Clinical indication: Patient with bacteremia requiring long-term IV access for antibiotics Date: 02/18/2019 Procedure: Following an explanation of the risks, benefits and alternatives; written informed consent was obtained. The patient was brought to the angiographic suite and placed in supine position on the examination table. Initial ultrasound evaluation of her neck demonstrated a patent right internal jugular vein. The patient's right neck and chest wall were prepped and draped in the usual sterile fashion. 1% lidocaine was used for anesthesia. Under ultrasound guidance, the right internal jugular vein was cannulated with a 7 cm 21-gauge needle. A 0.01 a guidewire was advanced centrally under fluoroscopy. The guidewire was advanced into the IVC to document intravenous positioning and for anchoring. The needle was removed. An appropriate catheter exit site was chosen along the lateral right chest wall. 1% lidocaine was used for anesthesia at the catheter exit site and along the tunnel tract. A Bard dual-lumen power PICC was then tunneled antegrade from the catheter exit site of the venotomy site. Following standard guidewire measurements, the guidewire was removed and the PICC inserted to the peel-away sheath to position the tip in the proximal right atrium. The peel-away sheath was removed. Both ports flushed and aspirated easily and more than locked with sterile saline. The venotomy was closed using Dermabond. The catheter exit site was approximated using 3-0 Ethilon suture, the suture was also uses a retention suture. A StatLock device was also applied. Sterile dressings were then applied. The patient tolerated the procedure well. There were no immediate post procedure complications. Conscious sedation was performed under the guidance or radiologic nursing. Continuous cardiopulmonary monitoring was utilized. Impression: Ultrasound and fluoroscopic guided placement of tunneled PICC via the right internal jugular vein.
[2019-02-18] MEDS: AZITHROMYCIN 500 MG in SODIUM CHLORIDE 0.9% 250ML 250 ML IV SCH (22:00)
[2019-02-19 04:56] LABS: Basophils % (Auto) 0.3 % (0.0-1.8); Eosinophils # (Auto) 0.1 K/mm3 (0.0-0.4); Eosinophils % (Auto) 2.9 % (0.0-4.3); Hematocrit 26.9 % (30.3-42.9); Hemoglobin 8.8 gm/dl (10.1-14.3); Lymphocytes # (Auto) 0.7 K/mm3 (1.2-5.4); Mean Corpuscular HGB Conc 33 % (30-34); Mean Corpuscular Volume 91 fl (79-97); Monocytes # (Auto) 0.4 K/mm3 (0.0-0.8); Monocytes % (Auto) 11.7 % (0.0-7.3); Platelet Count 107 K/mm3 (140-440); Red Blood Count 2.95 M/mm3 (3.65-5.03); Red Cell Distribution Width 19.4 % (13.2-15.2)
[2019-02-19 05:11] LABS: Alanine Aminotransferase 39 units/L (7-56); Albumin 1.9 g/dL (3.9-5); BUN/Creatinine Ratio 10; Blood Urea Nitrogen 7 mg/dL (7-17); Hemolysis Index 27
[2019-02-19] MEDS: INSULIN LISPRO 100 UNIT/ML SUB-Q SCH ×3 (07:30→17:34)
[2019-02-19] MEDS: ARFORMOTEROL 15 MCG/2 ML NEBU IH SCH ×2 (08:19→20:57)
[2019-02-19] MEDS: BUDESONIDE 0.5 MG/2 ML NEBU IH SCH ×2 (08:20→20:57)
--- NOTE | 2019-02-19 09:19 | Progress Note ---
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 Patient has been on antibiotics for UTI and pneumonia. Work up also includes CT head, which showed no acute changes but mild to moderate cerebral atrophy. GI consulted for PEG placement but not stable enough for a PEG tube placement. 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 Time spent : 30 mins Subjective Date of service: 02/19/19 Principal diagnosis: Ac hypercapnic hypoxemic resp failure; Ac. metabo encephalopathy; PNA; UTI Interval history: Pt seen and examined. Still confused. Had PICC line placed yesterday Objective - Exam Narrative Exam: Constitutional: Confused, Afebrile Head: Normocephalic atraumatic Eyes: Pupils are equal round and reactive to light Nose: No enlarged turbinates, no septal deviation. Mouth: Moist mucous membranes. Neck: Supple no thyromegaly. No bruit. No JVD Heart: Regular rate and rhythm, S1-S2 normal. No rubs murmurs or gallop Lungs: Decreased breath sounds with rhonchi Abdomen: Soft, nontender. Bowel sound are present. Extremities: No edema, no cyanosis, no clubbing. Neuro: Confused. No focal sensory or motor deficit. Skin: No rashes or hyperpigmented spots Musculoskeletal system: No joint pain or swelling Hematological: No petechia or subcutanous hemorrhages. Immunological: No multiple septic spots on the skin Lymphatic: No generalized lymphadenopathy Psychiatry: Confused - Constitutional Vitals: Vital Signs - 12hr 02/18/19 02/19/19 02/19/19 23:57 04:37 08:44 Temperature 98.0 F 98.0 F Pulse Rate 68 59 L Respiratory 18 18 18 Rate Blood Pressure 96/46 122/68 Blood Pressure 101/59 [Right] O2 Sat by Pulse 100 100 Oximetry - Labs CBC & Chem 7: 02/20/19 06:45 02/20/19 06:45 Labs: Abnormal lab results 02/18/19 02/18/19 02/19/19 Range/Units 11:27 18:30 03:51 WBC 3.4 L (4.5-11.0) K/mm3 RBC 2.95 L (3.65-5.03) M/mm3 Hgb 8.8 L (10.1-14.3) gm/dl Hct 26.9 L (30.3-42.9) % RDW 19.4 H (13.2-15.2) % Plt Count 107 L (140-440) K/mm3 Kings % (Auto) 11.7 H (0.0-7.3) % Lymph # 0.7 L (1.2-5.4) K/mm3 Chloride (98-107) mmol/L Glucose (65-100) mg/dL POC Glucose 122 H 133 H (70-105) Calcium (8.4-10.2) mg/dL Alkaline Phosphatase (35-129) units/L Total Protein (6.3-8.2) g/dL Albumin (3.9-5) g/dL 02/19/19 Range/Units 03:51 WBC (4.5-11.0) K/mm3 RBC (3.65-5.03) M/mm3 Hgb (10.1-14.3) gm/dl Hct (30.3-42.9) % RDW (13.2-15.2) % Plt Count (140-440) K/mm3 Kings % (Auto) (0.0-7.3) % Lymph # (1.2-5.4) K/mm3 Chloride 110.3 H (98-107) mmol/L Glucose 106 H (65-100) mg/dL POC Glucose (70-105) Calcium 8.0 L (8.4-10.2) mg/dL Alkaline Phosphatase 145 H (35-129) units/L Total Protein 6.1 L (6.3-8.2) g/dL Albumin 1.9 L (3.9-5) g/dL
[2019-02-19] MEDS: cefTRIAXone/NS 1 GM/50 ML 1 GM/50 ML BAG IV SCH (10:00)
[2019-02-19] MEDS: FLUTICASONE PROPIONATE NASAL SPRAY 16 GM NS SCH ×2 (10:01→10:02)
[2019-02-19] MEDS: FOLIC ACID 1 MG TAB PO SCH ×2 (10:02→10:04)
[2019-02-19] MEDS: THIAMINE 100 MG TAB PO SCH ×2 (10:02→10:07)
[2019-02-19] MEDS: CYPROHEPTADINE 4 MG TAB PO SCH ×3 (10:02→21:31)
--- NOTE | 2019-02-19 11:12 | Progress Note ---
Assessment and Plan Patient awake, weak. No acute respiratory distress. Patient is on 3 litres O2. O2 saturation 97%. BIPAP stand by in the room. Patient afebrile. No leukocytosis. - Patient Problems (1) Acute hypercapnic respiratory failure Current Visit: Yes Status: Acute Plan to address problem: O2 4 litres via nasal canula. BIPAP 16/6, rate 16, FIO2 40% stand by in the room. Brovanna/Budesonide aerosol treatments q 12 hours. Albuterol/atrovent aerosol treatments q 6 hours prn for shortness of breath. Continue Ceftrioxone and recommend to add zithromax also. SCDs GI prophylaxis. (2) Pneumonia Current Visit: Yes Status: Acute Plan to address problem: Continue zithromax to ceftrioxone. (3) UTI (urinary tract infection) Current Visit: Yes Status: Acute Plan to address problem: Patient is on ceftrioxone. (4) Sepsis Current Visit: Yes Status: Acute Plan to address problem: Patient is on Ceftrioxone and Zithromax. (5) Acute renal failure (ARF) Current Visit: Yes Status: Acute Plan to address problem: Management as per primary care and nephrology. (6) Acute hepatic encephalopathy Current Visit: No Status: Acute Plan to address problem: Management as per primary care. Subjective Date of service: 02/19/19 Principal diagnosis: Ac hypercapnic hypoxemic resp failure; Ac. encephalopathy; PNA; UTI Interval history: Patient awake, weak. No acute respiratory distress. Patient is on 3 litres O2. O2 saturation 97%. BIPAP stand by in the room. Patient afebrile. No leukocytosis. Objective Vital Signs - 12hr 02/18/19 02/19/19 02/19/19 23:57 04:37 08:20 Temperature 98.0 F 98.0 F Pulse Rate 68 Pulse Rate [ 67 Anterior Bilateral] Respiratory 18 18 Rate Respiratory 20 Rate [Anterior Bilateral] Blood Pressure 96/46 122/68 Blood Pressure [Right] O2 Sat by Pulse 100 100 Oximetry 02/19/19 02/19/19 08:44 09:13 Temperature 98.0 F Pulse Rate 59 L 65 Pulse Rate [ Anterior Bilateral] Respiratory 18 18 Rate Respiratory Rate [Anterior Bilateral] Blood Pressure 120/65 Blood Pressure 101/59 [Right] O2 Sat by Pulse 100 97 Oximetry Constitutional: no acute distress, alert, other (elderly looking female, normocephalic with midly increased resp effort at rest) Eyes: non-icteric ENT: oropharynx moist Neck: supple, no JVD Effort: mildly labored Ascultation: Bilateral: diminished breath sounds, rhonchi Percussion: Bilateral: not dull Cardiovascular: regular rate and rhythm Gastrointestinal: normoactive bowel sounds, soft, non-tender, non-distended Integumentary: normal Extremities: no cyanosis, no edema, pulses normal, no ischemia or petechiae Neurologic: pupils equal and round, unable to assess Psychiatric: other (Unable to assess due to mental status.) CBC and BMP: 02/19/19 03:51 02/19/19 03:51 ABG, PT/INR, D-dimer: ABG POC ABG pH 7.377 (7.35-7.45) 02/15/19 09:34 POC ABG pCO2 38.8 (35-45) 02/15/19 09:34 POC ABG pO2 129 (80-105) H 02/15/19 09:34 POC ABG HCO3 22.8 (22-26 mml/L) 02/15/19 09:34 POC ABG Total CO2 24 (23-27mmol/L) 02/15/19 09:34 POC ABG O2 Sat 99 02/15/19 09:34 PT/INR, D-dimer PT 17.5 Sec. (12.2-14.9) H 02/14/19 08:05 INR 1.47 (0.87-1.13) H 02/14/19 08:05 Abnormal lab findings: Abnormal Labs 02/06/19 02/06/19 02/06/19 11:50 11:50 11:50 WBC 12.9 H RBC Hgb Hct RDW 18.8 H Plt Count 32 L Lymph % (Auto) Alexander % (Auto) Lymph # Seg Neutrophils % Seg Neuts % (Manual) 84.0 H Lymphocytes % (Manual) 5.0 L Monocytes % (Manual) Eosinophils % (Manual) Seg Neutrophils # Man 10.8 H Lymphocytes # (Manual) 0.6 L Eosinophils # (Manual) PT 15.7 H INR 1.28 H APTT POC ABG pH POC ABG pCO2 POC ABG pO2 Sodium 164 H* Potassium 5.7 H Chloride 127.7 H Carbon Dioxide 20 L BUN 70 H Creatinine 2.8 H Glucose POC Glucose Lactic Acid Calcium Total Bilirubin 1.50 H AST 211 H ALT 252 H Alkaline Phosphatase 246 H Ammonia Total Creatine Kinase 1708 H CK-MB (CK-2) 9.5 H Troponin T 0.114 H* Total Protein Albumin 2.4 L Prealbumin HDL Cholesterol 39 L Vitamin B12 TSH Urine pH Urine WBC (Auto) Hep Bs Antibody, Quant Hepatitis C Antibody 02/06/19 02/06/19 02/06/19 11:50 11:50 11:50 WBC RBC Hgb Hct RDW Plt Count Lymph % (Auto) Alexander % (Auto) Lymph # Seg Neutrophils % Seg Neuts % (Manual) Lymphocytes % (Manual) Monocytes % (Manual) Eosinophils % (Manual) Seg Neutrophils # Man Lymphocytes # (Manual) Eosinophils # (Manual) PT INR APTT POC ABG pH POC ABG pCO2 POC ABG pO2 Sodium Potassium Chloride Carbon Dioxide BUN Creatinine Glucose POC Glucose Lactic Acid 3.10 H* Calcium Total Bilirubin AST ALT Alkaline Phosphatase Ammonia 65.0 H Total Creatine Kinase CK-MB (CK-2) Troponin T Total Protein Albumin Prealbumin HDL Cholesterol Vitamin B12 TSH 8.460 H Urine pH Urine WBC (Auto) Hep Bs Antibody, Quant Hepatitis C Antibody 02/06/19 02/06/19 02/06/19 12:45 12:45 20:23 WBC RBC Hgb Hct RDW Plt Count Lymph % (Auto) Alexander % (Auto) Lymph # Seg Neutrophils % Seg Neuts % (Manual) Lymphocytes % (Manual) Monocytes % (Manual) Eosinophils % (Manual) Seg Neutrophils # Man Lymphocytes # (Manual) Eosinophils # (Manual) PT 17.4 H INR 1.46 H APTT 41.9 H POC ABG pH POC ABG pCO2 POC ABG pO2 Sodium 165 H* Potassium 5.3 H Chloride 130.8 H Carbon Dioxide 21 L BUN 70 H Creatinine 2.8 H Glucose POC Glucose Lactic Acid 3.00 H* Calcium Total Bilirubin 1.50 H AST 211 H ALT 248 H Alkaline Phosphatase 241 H Ammonia Total Creatine Kinase 1906 H CK-MB (CK-2) 12.6 H Troponin T 0.135 H* Total Protein Albumin 2.5 L Prealbumin HDL Cholesterol Vitamin B12 TSH Urine pH Urine WBC (Auto) Hep Bs Antibody, Quant Hepatitis C Antibody 02/06/19 02/07/19 02/07/19 Unknown 10:31 10:31 WBC RBC Hgb Hct RDW Plt Count Lymph % (Auto) Alexander % (Auto) Lymph # Seg Neutrophils % Seg Neuts % (Manual) Lymphocytes % (Manual) Monocytes % (Manual) Eosinophils % (Manual) Seg Neutrophils # Man Lymphocytes # (Manual) Eosinophils # (Manual) PT INR APTT POC ABG pH POC ABG pCO2 POC ABG pO2 Sodium 166 H* Potassium Chloride 134.7 H Carbon Dioxide 20 L BUN 68 H Creatinine 2.0 H Glucose POC Glucose Lactic Acid Calcium Total Bilirubin AST 150 H ALT 191 H Alkaline Phosphatase 204 H Ammonia 62.0 H Total Creatine Kinase CK-MB (CK-2) Troponin T Total Protein Albumin 2.3 L Prealbumin HDL Cholesterol Vitamin B12 TSH Urine pH 8.0 H Urine WBC (Auto) 58.0 H Hep Bs Antibody, Quant Hepatitis C Antibody 02/07/19 02/07/19 02/08/19 10:31 21:02 04:26 WBC RBC 3.50 L 3.39 L Hgb Hct RDW 18.8 H 19.5 H 19.5 H Plt Count 31 L 33 L 35 L Lymph % (Auto) 9.5 L 10.2 L Alexander % (Auto) Lymph # 0.7 L 0.7 L Seg Neutrophils % 82.7 H 80.8 H Seg Neuts % (Manual) Lymphocytes % (Manual) Monocytes % (Manual) Eosinophils % (Manual) Seg Neutrophils # Man Lymphocytes # (Manual) Eosinophils # (Manual) PT INR APTT POC ABG pH POC ABG pCO2 POC ABG pO2 Sodium Potassium Chloride Carbon Dioxide BUN Creatinine Glucose POC Glucose Lactic Acid Calcium Total Bilirubin AST ALT Alkaline Phosphatase Ammonia Total Creatine Kinase CK-MB (CK-2) Troponin T Total Protein Albumin Prealbumin HDL Cholesterol Vitamin B12 TSH Urine pH Urine WBC (Auto) Hep Bs Antibody, Quant Hepatitis C Antibody 02/08/19 02/08/19 02/08/19 04:26 04:26 04:26 WBC RBC Hgb Hct RDW Plt Count Lymph % (Auto) Alexander % (Auto) Lymph # Seg Neutrophils % Seg Neuts % (Manual) Lymphocytes % (Manual) Monocytes % (Manual) Eosinophils % (Manual) Seg Neutrophils # Man Lymphocytes # (Manual) Eosinophils # (Manual) PT INR APTT POC ABG pH POC ABG pCO2 POC ABG pO2 Sodium Potassium Chloride Carbon Dioxide BUN Creatinine Glucose POC Glucose Lactic Acid Calcium Total Bilirubin AST ALT Alkaline Phosphatase Ammonia Total Creatine Kinase CK-MB (CK-2) Troponin T Total Protein Albumin Prealbumin HDL Cholesterol Vitamin B12 1491 H TSH Urine pH Urine WBC (Auto) Hep Bs Antibody, Quant <5 L Hepatitis C Antibody Reactive A 02/08/19 02/08/19 02/08/19 04:26 04:26 19:12 WBC RBC 3.54 L Hgb Hct RDW 19.2 H Plt Count 41 L Lymph % (Auto) Alexander % (Auto) Lymph # Seg Neutrophils % Seg Neuts % (Manual) 86.0 H Lymphocytes % (Manual) 6.0 L Monocytes % (Manual) Eosinophils % (Manual) 5.0 H Seg Neutrophils # Man Lymphocytes # (Manual) 0.4 L Eosinophils # (Manual) PT INR APTT POC ABG pH POC ABG pCO2 POC ABG pO2 Sodium 164 H* Potassium Chloride 135.7 H Carbon Dioxide 21 L BUN 59 H Creatinine 1.8 H Glucose 107 H POC Glucose Lactic Acid Calcium Total Bilirubin AST 112 H ALT 155 H Alkaline Phosphatase 185 H Ammonia 76.0 H Total Creatine Kinase 704 H CK-MB (CK-2) Troponin T Total Protein Albumin 2.1 L Prealbumin HDL Cholesterol Vitamin B12 TSH Urine pH Urine WBC (Auto) Hep Bs Antibody, Quant Hepatitis C Antibody 02/09/19 02/10/19 02/10/19 19:33 03:56 03:56 WBC RBC 3.34 L Hgb 9.8 L Hct RDW 19.6 H Plt Count 43 L Lymph % (Auto) Alexander % (Auto) Lymph # Seg Neutrophils % Seg Neuts % (Manual) Lymphocytes % (Manual) Monocytes % (Manual) 9.0 H Eosinophils % (Manual) Seg Neutrophils # Man Lymphocytes # (Manual) Eosinophils # (Manual) PT INR APTT POC ABG pH POC ABG pCO2 POC ABG pO2 Sodium 156 H Potassium 3.3 L Chloride 128.7 H Carbon Dioxide BUN 34 H Creatinine Glucose 155 H POC Glucose Lactic Acid Calcium Total Bilirubin AST 59 H ALT 107 H Alkaline Phosphatase 159 H Ammonia 65.0 H Total Creatine Kinase 262 H CK-MB (CK-2) Troponin T Total Protein 6.2 L Albumin 2.0 L Prealbumin HDL Cholesterol Vitamin B12 TSH Urine pH Urine WBC (Auto) Hep Bs Antibody, Quant Hepatitis C Antibody 02/10/19 02/11/19 02/12/19 19:37 19:40 07:42 WBC 3.1 L 3.6 L RBC 3.05 L 3.27 L 3.26 L Hgb 9.1 L 9.7 L 9.6 L Hct 27.8 L 29.3 L 29.2 L RDW 18.8 H 18.5 H 18.7 H Plt Count 51 L 47 L 43 L Lymph % (Auto) Alexander % (Auto) Lymph # 0.4 L Seg Neutrophils % 76.0 H Seg Neuts % (Manual) Lymphocytes % (Manual) 9.0 L Monocytes % (Manual) 9.0 H Eosinophils % (Manual) 12.0 H Seg Neutrophils # Man Lymphocytes # (Manual) 0.4 L Eosinophils # (Manual) 0.5 H PT INR APTT POC ABG pH POC ABG pCO2 POC ABG pO2 Sodium Potassium Chloride Carbon Dioxide BUN Creatinine Glucose POC Glucose Lactic Acid Calcium Total Bilirubin AST ALT Alkaline Phosphatase Ammonia Total Creatine Kinase CK-MB (CK-2) Troponin T Total Protein Albumin Prealbumin HDL Cholesterol Vitamin B12 TSH Urine pH Urine WBC (Auto) Hep Bs Antibody, Quant Hepatitis C Antibody 02/12/19 02/12/19 02/12/19 07:42 17:51 18:05 WBC RBC Hgb Hct RDW Plt Count Lymph % (Auto) Alexander % (Auto) Lymph # Seg Neutrophils % Seg Neuts % (Manual) Lymphocytes % (Manual) Monocytes % (Manual) Eosinophils % (Manual) Seg Neutrophils # Man Lymphocytes # (Manual) Eosinophils # (Manual) PT INR APTT POC ABG pH POC ABG pCO2 POC ABG pO2 Sodium Potassium 3.5 L Chloride 115.8 H Carbon Dioxide 20 L BUN Creatinine Glucose 172 H POC Glucose < 40 L < 40 L Lactic Acid Calcium 8.2 L Total Bilirubin AST 53 H ALT 81 H Alkaline Phosphatase 149 H Ammonia Total Creatine Kinase CK-MB (CK-2) Troponin T Total Protein 5.9 L Albumin 1.8 L Prealbumin HDL Cholesterol Vitamin B12 TSH Urine pH Urine WBC (Auto) Hep Bs Antibody, Quant Hepatitis C Antibody 02/12/19 02/12/19 02/12/19 18:19 18:37 20:43 WBC RBC Hgb Hct RDW Plt Count Lymph % (Auto) Alexander % (Auto) Lymph # Seg Neutrophils % Seg Neuts % (Manual) Lymphocytes % (Manual) Monocytes % (Manual) Eosinophils % (Manual) Seg Neutrophils # Man Lymphocytes # (Manual) Eosinophils # (Manual) PT INR APTT POC ABG pH POC ABG pCO2 POC ABG pO2 Sodium Potassium Chloride Carbon Dioxide BUN Creatinine Glucose POC Glucose 40 L 176 H 228 H Lactic Acid Calcium Total Bilirubin AST ALT Alkaline Phosphatase Ammonia Total Creatine Kinase CK-MB (CK-2) Troponin T Total Protein Albumin Prealbumin HDL Cholesterol Vitamin B12 TSH Urine pH Urine WBC (Auto) Hep Bs Antibody, Quant Hepatitis C Antibody 02/12/19 02/12/19 02/13/19 20:57 20:57 00:46 WBC 2.5 L RBC Hgb Hct RDW 18.9 H Plt Count 46 L Lymph % (Auto) 8.3 L Alexander % (Auto) 7.6 H Lymph # 0.2 L Seg Neutrophils % 83.1 H Seg Neuts % (Manual) Lymphocytes % (Manual) Monocytes % (Manual) Eosinophils % (Manual) Seg Neutrophils # Man Lymphocytes # (Manual) Eosinophils # (Manual) PT INR APTT POC ABG pH POC ABG pCO2 POC ABG pO2 Sodium Potassium Chloride Carbon Dioxide BUN Creatinine Glucose 189 H POC Glucose 265 H Lactic Acid Calcium Total Bilirubin AST ALT Alkaline Phosphatase Ammonia Total Creatine Kinase CK-MB (CK-2) Troponin T Total Protein Albumin Prealbumin HDL Cholesterol Vitamin B12 TSH Urine pH Urine WBC (Auto) Hep Bs Antibody, Quant Hepatitis C Antibody 02/13/19 02/13/19 02/13/19 04:14 11:37 13:43 WBC RBC Hgb Hct RDW Plt Count Lymph % (Auto) Alexander % (Auto) Lymph # Seg Neutrophils % Seg Neuts % (Manual) Lymphocytes % (Manual) Monocytes % (Manual) Eosinophils % (Manual) Seg Neutrophils # Man Lymphocytes # (Manual) Eosinophils # (Manual) PT INR APTT POC ABG pH POC ABG pCO2 POC ABG pO2 Sodium Potassium Chloride Carbon Dioxide BUN Creatinine Glucose POC Glucose 66 L Lactic Acid Calcium Total Bilirubin AST ALT Alkaline Phosphatase Ammonia 83.0 H Total Creatine Kinase CK-MB (CK-2) Troponin T Total Protein Albumin Prealbumin 0.044 L HDL Cholesterol Vitamin B12 TSH Urine pH Urine WBC (Auto) Hep Bs Antibody, Quant Hepatitis C Antibody 02/13/19 02/13/19 02/13/19 16:39 19:27 20:17 WBC 3.2 L RBC 3.17 L Hgb 9.3 L Hct 28.0 L RDW 18.3 H Plt Count 58 L Lymph % (Auto) Alexander % (Auto) Lymph # Seg Neutrophils % Seg Neuts % (Manual) 84.0 H Lymphocytes % (Manual) 11.0 L Monocytes % (Manual) Eosinophils % (Manual) Seg Neutrophils # Man Lymphocytes # (Manual) 0.4 L Eosinophils # (Manual) PT INR APTT POC ABG pH POC ABG pCO2 POC ABG pO2 Sodium Potassium Chloride Carbon Dioxide BUN Creatinine Glucose POC Glucose 134 H 156 H Lactic Acid Calcium Total Bilirubin AST ALT Alkaline Phosphatase Ammonia Total Creatine Kinase CK-MB (CK-2) Troponin T Total Protein Albumin Prealbumin HDL Cholesterol Vitamin B12 TSH Urine pH Urine WBC (Auto) Hep Bs Antibody, Quant Hepatitis C Antibody 02/14/19 02/14/19 02/14/19 05:25 08:05 08:05 WBC RBC 3.07 L Hgb 9.3 L Hct 27.5 L RDW 17.9 H Plt Count 70 L Lymph % (Auto) 5.4 L Alexander % (Auto) Lymph # 0.4 L Seg Neutrophils % 89.2 H Seg Neuts % (Manual) Lymphocytes % (Manual) Monocytes % (Manual) Eosinophils % (Manual) Seg Neutrophils # Man Lymphocytes # (Manual) Eosinophils # (Manual) PT INR APTT POC ABG pH POC ABG pCO2 POC ABG pO2 Sodium Potassium Chloride 109.8 H Carbon Dioxide 21 L BUN Creatinine 1.4 H D Glucose POC Glucose 143 H Lactic Acid Calcium 7.8 L Total Bilirubin AST ALT Alkaline Phosphatase Ammonia Total Creatine Kinase CK-MB (CK-2) Troponin T Total Protein Albumin Prealbumin HDL Cholesterol Vitamin B12 TSH Urine pH Urine WBC (Auto) Hep Bs Antibody, Quant Hepatitis C Antibody 02/14/19 02/14/19 02/14/19 08:05 12:33 14:00 WBC RBC Hgb Hct RDW Plt Count Lymph % (Auto) Alexander % (Auto) Lymph # Seg Neutrophils % Seg Neuts % (Manual) Lymphocytes % (Manual) Monocytes % (Manual) Eosinophils % (Manual) Seg Neutrophils # Man Lymphocytes # (Manual) Eosinophils # (Manual) PT 17.5 H INR 1.47 H APTT POC ABG pH POC ABG pCO2 POC ABG pO2 Sodium Potassium Chloride Carbon Dioxide BUN Creatinine Glucose POC Glucose 131 H 176 H Lactic Acid Calcium Total Bilirubin AST ALT Alkaline Phosphatase Ammonia Total Creatine Kinase CK-MB (CK-2) Troponin T Total Protein Albumin Prealbumin HDL Cholesterol Vitamin B12 TSH Urine pH Urine WBC (Auto) Hep Bs Antibody, Quant Hepatitis C Antibody 02/14/19 02/14/19 02/15/19 15:34 21:10 08:18 WBC RBC Hgb Hct RDW Plt Count Lymph % (Auto) Alexander % (Auto) Lymph # Seg Neutrophils % Seg Neuts % (Manual) Lymphocytes % (Manual) Monocytes % (Manual) Eosinophils % (Manual) Seg Neutrophils # Man Lymphocytes # (Manual) Eosinophils # (Manual) PT INR APTT POC ABG pH 7.271 L POC ABG pCO2 49.0 H POC ABG pO2 192 H Sodium Potassium Chloride Carbon Dioxide BUN Creatinine Glucose POC Glucose 130 H 135 H Lactic Acid Calcium Total Bilirubin AST ALT Alkaline Phosphatase Ammonia Total Creatine Kinase CK-MB (CK-2) Troponin T Total Protein Albumin Prealbumin HDL Cholesterol Vitamin B12 TSH Urine pH Urine WBC (Auto) Hep Bs Antibody, Quant Hepatitis C Antibody 02/15/19 02/15/19 02/16/19 09:34 12:34 04:28 WBC RBC Hgb Hct RDW Plt Count Lymph % (Auto) Alexander % (Auto) Lymph # Seg Neutrophils % Seg Neuts % (Manual) Lymphocytes % (Manual) Monocytes % (Manual) Eosinophils % (Manual) Seg Neutrophils # Man Lymphocytes # (Manual) Eosinophils # (Manual) PT INR APTT POC ABG pH POC ABG pCO2 POC ABG pO2 129 H Sodium Potassium 3.3 L Chloride 113.3 H Carbon Dioxide 20 L BUN Creatinine Glucose 130 H POC Glucose 119 H Lactic Acid Calcium 8.2 L Total Bilirubin AST ALT Alkaline Phosphatase Ammonia Total Creatine Kinase CK-MB (CK-2) Troponin T Total Protein Albumin Prealbumin HDL Cholesterol Vitamin B12 TSH Urine pH Urine WBC (Auto) Hep Bs Antibody, Quant Hepatitis C Antibody 02/16/19 02/16/19 02/16/19 04:28 08:11 12:59 WBC RBC 2.89 L Hgb 8.8 L Hct 26.0 L RDW 18.3 H Plt Count 95 L Lymph % (Auto) Alexander % (Auto) Lymph # Seg Neutrophils % Seg Neuts % (Manual) 93.0 H Lymphocytes % (Manual) 5.0 L Monocytes % (Manual) Eosinophils % (Manual) Seg Neutrophils # Man Lymphocytes # (Manual) 0.3 L Eosinophils # (Manual) PT INR APTT POC ABG pH POC ABG pCO2 POC ABG pO2 Sodium Potassium Chloride Carbon Dioxide BUN Creatinine Glucose POC Glucose 121 H 112 H Lactic Acid Calcium Total Bilirubin AST ALT Alkaline Phosphatase Ammonia Total Creatine Kinase CK-MB (CK-2) Troponin T Total Protein Albumin Prealbumin HDL Cholesterol Vitamin B12 TSH Urine pH Urine WBC (Auto) Hep Bs Antibody, Quant Hepatitis C Antibody 02/16/19 02/16/19 02/18/19 16:58 20:28 04:25 WBC RBC Hgb Hct RDW Plt Count Lymph % (Auto) Alexander % (Auto) Lymph # Seg Neutrophils % Seg Neuts % (Manual) Lymphocytes % (Manual) Monocytes % (Manual) Eosinophils % (Manual) Seg Neutrophils # Man Lymphocytes # (Manual) Eosinophils # (Manual) PT INR APTT POC ABG pH POC ABG pCO2 POC ABG pO2 Sodium Potassium Chloride Carbon Dioxide BUN Creatinine Glucose POC Glucose 128 H 111 H 143 H Lactic Acid Calcium Total Bilirubin AST ALT Alkaline Phosphatase Ammonia Total Creatine Kinase CK-MB (CK-2) Troponin T Total Protein Albumin Prealbumin HDL Cholesterol Vitamin B12 TSH Urine pH Urine WBC (Auto) Hep Bs Antibody, Quant Hepatitis C Antibody 02/18/19 02/18/19 02/18/19 06:28 06:28 11:27 WBC 3.9 L RBC 2.91 L Hgb 8.7 L Hct 26.3 L RDW 18.5 H Plt Count 99 L Lymph % (Auto) Alexander % (Auto) 8.9 H Lymph # 0.5 L Seg Neutrophils % 75.4 H Seg Neuts % (Manual) Lymphocytes % (Manual) Monocytes % (Manual) Eosinophils % (Manual) Seg Neutrophils # Man Lymphocytes # (Manual) Eosinophils # (Manual) PT INR APTT POC ABG pH POC ABG pCO2 POC ABG pO2 Sodium Potassium 3.2 L Chloride 111.4 H Carbon Dioxide BUN Creatinine Glucose 113 H POC Glucose 122 H Lactic Acid Calcium 8.1 L Total Bilirubin AST ALT Alkaline Phosphatase Ammonia Total Creatine Kinase CK-MB (CK-2) Troponin T Total Protein Albumin Prealbumin HDL Cholesterol Vitamin B12 TSH Urine pH Urine WBC (Auto) Hep Bs Antibody, Quant Hepatitis C Antibody 02/18/19 02/19/19 02/19/19 18:30 03:51 03:51 WBC 3.4 L RBC 2.95 L Hgb 8.8 L Hct 26.9 L RDW 19.4 H Plt Count 107 L Lymph % (Auto) Alexander % (Auto) 11.7 H Lymph # 0.7 L Seg Neutrophils % Seg Neuts % (Manual) Lymphocytes % (Manual) Monocytes % (Manual) Eosinophils % (Manual) Seg Neutrophils # Man Lymphocytes # (Manual) Eosinophils # (Manual) PT INR APTT POC ABG pH POC ABG pCO2 POC ABG pO2 Sodium Potassium Chloride 110.3 H Carbon Dioxide BUN Creatinine Glucose 106 H POC Glucose 133 H Lactic Acid Calcium 8.0 L Total Bilirubin AST ALT Alkaline Phosphatase 145 H Ammonia Total Creatine Kinase CK-MB (CK-2) Troponin T Total Protein 6.1 L Albumin 1.9 L Prealbumin HDL Cholesterol Vitamin B12 TSH Urine pH Urine WBC (Auto) Hep Bs Antibody, Quant Hepatitis C Antibody 02/19/19 09:15 WBC RBC Hgb Hct RDW Plt Count Lymph % (Auto) Alexander % (Auto) Lymph # Seg Neutrophils % Seg Neuts % (Manual) Lymphocytes % (Manual) Monocytes % (Manual) Eosinophils % (Manual) Seg Neutrophils # Man Lymphocytes # (Manual) Eosinophils # (Manual) PT INR APTT POC ABG pH POC ABG pCO2 POC ABG pO2 Sodium Potassium Chloride Carbon Dioxide BUN Creatinine Glucose POC Glucose 134 H Lactic Acid Calcium Total Bilirubin AST ALT Alkaline Phosphatase Ammonia Total Creatine Kinase CK-MB (CK-2) Troponin T Total Protein Albumin Prealbumin HDL Cholesterol Vitamin B12 TSH Urine pH Urine WBC (Auto) Hep Bs Antibody, Quant Hepatitis C Antibody Allied health notes reviewed: nursing
--- NOTE | 2019-02-19 13:48 | Gastroenterology Progress Note ---
Assessment and Plan GI: pt for peg when stable - will sign off for now, call when needed Subjective Date of service: 02/19/19 Principal diagnosis: Ac hypercapnic hypoxemic resp failure; Ac. encephalopathy; PNA; UTI Interval history: - no issues overnight per staff Objective - Constitutional Vitals: Temp Pulse Resp BP Pulse Ox 98.0 F 65 18 120/65 97 02/19/19 09:13 02/19/19 09:13 02/19/19 09:13 02/19/19 09:13 02/19/19 09:13 General appearance: no acute distress - EENT Eyes: PERRL - Respiratory Respiratory: bilateral: rhonchi - Cardiovascular Rhythm: regular Heart Sounds: Present: S1 & S2 - Gastrointestinal General gastrointestinal: Present: soft, non-tender, non-distended - Labs CBC & Chem 7: 02/19/19 03:51 02/19/19 03:51 Labs: Laboratory Results - last 24 hr 02/18/19 02/18/19 02/19/19 18:30 21:22 03:51 WBC 3.4 L RBC 2.95 L Hgb 8.8 L Hct 26.9 L MCV 91 MCH 30 MCHC 33 RDW 19.4 H Plt Count 107 L Lymph % (Auto) 21.0 Faulkner % (Auto) 11.7 H Eos % (Auto) 2.9 Baso % (Auto) 0.3 Lymph # 0.7 L Faulkner # 0.4 Eos # 0.1 Baso # 0.0 Seg Neutrophils % 64.1 Seg Neutrophils # 2.2 Sodium Potassium Chloride Carbon Dioxide Anion Gap BUN Creatinine Estimated GFR BUN/Creatinine Ratio Glucose POC Glucose 133 H 97 Calcium Total Bilirubin AST ALT Alkaline Phosphatase Total Protein Albumin Albumin/Globulin Ratio 02/19/19 02/19/19 02/19/19 03:51 09:15 12:23 WBC RBC Hgb Hct MCV MCH MCHC RDW Plt Count Lymph % (Auto) Faulkner % (Auto) Eos % (Auto) Baso % (Auto) Lymph # Fa[place]ner # Eos # Baso # Seg Neutrophils % Seg Neutrophils # Sodium 142 Potassium 3.6 Chloride 110.3 H Carbon Dioxide 23 Anion Gap 12 BUN 7 Creatinine 0.7 Estimated GFR > 60 BUN/Creatinine Ratio 10 Glucose 106 H POC Glucose 134 H 121 H Calcium 8.0 L Total Bilirubin 0.50 AST 33 ALT 39 Alkaline Phosphatase 145 H Total Protein 6.1 L Albumin 1.9 L Albumin/Globulin Ratio 0.5
[2019-02-19] MEDS: FUROSEMIDE 20 MG/2 ML INJ IV SCH (14:25)
[2019-02-19] MEDS: AZITHROMYCIN 500 MG in SODIUM CHLORIDE 0.9% 250ML 250 ML IV SCH (21:31)
[2019-02-20] MEDS: INSULIN LISPRO 100 UNIT/ML SUB-Q SCH ×5 (00:20→22:00)
[2019-02-20] MEDS: DEXTROSE 10% IN WATER 1,000 ML IV SCH (00:31)
[2019-02-20 07:15] LABS: Basophils % (Auto) 0.5 % (0.0-1.8); Eosinophils # (Auto) 0.1 K/mm3 (0.0-0.4); Eosinophils % (Auto) 2.5 % (0.0-4.3); Hemoglobin 8.6 gm/dl (10.1-14.3); Lymphocytes # (Auto) 0.4 K/mm3 (1.2-5.4); Lymphocytes % (Auto) 14.5 % (13.4-35.0); Mean Corpuscular HGB Conc 34 % (30-34); Mean Corpuscular Volume 89 fl (79-97); Monocytes # (Auto) 0.3 K/mm3 (0.0-0.8); Monocytes % (Auto) 9.9 % (0.0-7.3); Platelet Count 110 K/mm3 (140-440); Red Cell Distribution Width 19.7 % (13.2-15.2)
[2019-02-20 07:47] LABS: Alanine Aminotransferase 37 units/L (7-56); BUN/Creatinine Ratio 7; Blood Urea Nitrogen 5 mg/dL (7-17); Calcium 8.1 mg/dL (8.4-10.2); Hemolysis Index 4
[2019-02-20] MEDS: ARFORMOTEROL 15 MCG/2 ML NEBU IH SCH ×2 (07:58→19:50)
[2019-02-20] MEDS: BUDESONIDE 0.5 MG/2 ML NEBU IH SCH ×2 (07:58→19:50)
[2019-02-20] MEDS: cefTRIAXone/NS 1 GM/50 ML 1 GM/50 ML BAG IV SCH (11:41)
[2019-02-20] MEDS: FUROSEMIDE 20 MG/2 ML INJ IV SCH (11:45)
[2019-02-20] MEDS: FLUTICASONE PROPIONATE NASAL SPRAY 16 GM NS SCH (11:46)
[2019-02-20] MEDS: CYPROHEPTADINE 4 MG TAB PO SCH ×2 (11:48→23:13)
[2019-02-20] MEDS: THIAMINE 100 MG TAB PO SCH (11:48)
[2019-02-20] MEDS: FOLIC ACID 1 MG TAB PO SCH (11:48)
--- NOTE | 2019-02-20 12:33 | Progress Note ---
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 Patient has been on antibiotics for UTI and pneumonia. Work up also includes CT head, which showed no acute changes but mild to moderate cerebral atrophy. GI consulted for PEG placement but not stable enough for a PEG tube placement. - Liver Cirrhosis Continue to monitor ammonia level and avoid hepatotoxic agents GI following - Hepatic encephalopabhty Continue to manage Liver cirrhosis and respiratory failure - Oropharyngeal dysphagia/malnutrition For PEG tube placement when clinically stable Will recommend another swallowing study while waiting - Acute hypercapnic respiratory failure continue with bronchodilators and supplemental oxygen as needed to keep O2 sat's > 90% BIPAP scheduled qhs with prn daytime use per Pharmacognosist - Pneumonia CXR showed worsenign apple pul infiltrarte continue with iv antibiotic Blood Cx, no growth so far - Hypokalemia supplement and recheck - Sepsis - resolving PICC line place for iv antibiotic 02/18/19 Continue with iv antibiotic and f/u blood Cx result - UTI (urinary tract infection) On recephin - Acute renal failure (ARF) - resolved PROGNOSIS: GUARDED CODE STATUS: DNR/DNI dispositon: awaiting PEG tube placemtn when pt is clinically stable. Time spent : 30 mins Subjective Date of service: 02/20/19 Principal diagnosis: Ac hypercapnic hypoxemic resp failure; Ac. metabo encephalopathy; PNA; UTI Interval history: Pt seen and examined. Still confused. Had PICC line placed 02/19/19 Objective - Exam Narrative Exam: Constitutional: Confused, Afebrile Head: Normocephalic atraumatic Eyes: Pupils are equal round and reactive to light Nose: No enlarged turbinates, no septal deviation. Mouth: Moist mucous membranes. Neck: Supple no thyromegaly. No bruit. No JVD Heart: Regular rate and rhythm, S1-S2 normal. No rubs murmurs or gallop Lungs: Decreased breath sounds with rhonchi Abdomen: Soft, nontender. Bowel sound are present. Extremities: No edema, no cyanosis, no clubbing. Neuro: Confused. No focal sensory or motor deficit. Skin: No rashes or hyperpigmented spots Musculoskeletal system: No joint pain or swelling Hematological: No petechia or subcutanous hemorrhages. Immunological: No multiple septic spots on the skin Lymphatic: No generalized lymphadenopathy Psychiatry: Confused - Constitutional Vitals: Vital Signs - 12hr 02/20/19 02/20/19 02/20/19 03:42 07:58 08:00 Temperature 97.7 F 97.7 F Pulse Rate 76 68 Pulse Rate [ 68 Anterior Bilateral] Respiratory 19 16 Rate Respiratory 18 Rate [Anterior Bilateral] Blood Pressure 98/50 115/64 O2 Sat by Pulse 97 100 100 Oximetry - Labs CBC & Chem 7: 02/20/19 06:45 02/20/19 06:45 Labs: Abnormal lab results 02/20/19 02/20/19 Range/Units 06:45 06:45 WBC 2.8 L (4.5-11.0) K/mm3 RBC 2.80 L (3.65-5.03) M/mm3 Hgb 8.6 L (10.1-14.3) gm/dl Hct 25.0 L (30.3-42.9) % RDW 19.7 H (13.2-15.2) % Plt Count 110 L (140-440) K/mm3 Dixon % (Auto) 9.9 H (0.0-7.3) % Lymph # 0.4 L (1.2-5.4) K/mm3 Seg Neutrophils % 72.6 H (40.0-70.0) % Potassium 3.2 L (3.6-5.0) mmol/L Chloride 108.4 H (98-107) mmol/L BUN 5 L (7-17) mg/dL Calcium 8.1 L (8.4-10.2) mg/dL Alkaline Phosphatase 150 H (35-129) units/L Total Protein 6.2 L (6.3-8.2) g/dL Albumin 2.0 L (3.9-5) g/dL
[2019-02-20] MEDS: POTASSIUM CHLORIDE 10 MEQ 10 MEQ/100 ML BAG IV SCH ×2 (13:18→13:57)
--- NOTE | 2019-02-20 14:34 | Progress Note ---
Assessment and Plan atient awake, weak. No acute respiratory distress. Patient not using o2 as recommended. She is pulling her o2 most of the time. O2 saturation 95%. BIPAP stand by in the room.Patient afebrile. No leukocytosis. - Patient Problems (1) Acute hypercapnic respiratory failure Current Visit: Yes Status: Acute Plan to address problem: O2 2 litres via nasal canula. BIPAP 16/6, rate 16, FIO2 40% stand by in the room. Brovanna/Budesonide aerosol treatments q 12 hours. Albuterol/atrovent aerosol treatments q 6 hours prn for shortness of breath. Continue Ceftrioxone and recommend to add zithromax also. SCDs GI prophylaxis. (2) Pneumonia Current Visit: Yes Status: Acute Plan to address problem: Continue zithromax to ceftrioxone. (3) UTI (urinary tract infection) Current Visit: Yes Status: Acute Plan to address problem: Patient is on ceftrioxone. (4) Sepsis Current Visit: Yes Status: Acute Plan to address problem: Patient is on Ceftrioxone and Zithromax. (5) Acute renal failure (ARF) Current Visit: Yes Status: Acute Plan to address problem: Management as per primary care and nephrology. (6) Acute hepatic encephalopathy Current Visit: No Status: Acute Plan to address problem: Management as per primary care. Subjective Date of service: 02/20/19 Principal diagnosis: Ac hypercapnic hypoxemic resp failure; Ac. metabo encephalopathy; PNA; UTI Interval history: Patient awake, weak. No acute respiratory distress. Patient not using o2 as recommended. She is pulling her o2 most of the time. O2 saturation 95%. BIPAP stand by in the room.Patient afebrile. No leukocytosis. Objective Vital Signs - 12hr 02/20/19 02/20/19 02/20/19 03:42 07:58 08:00 Temperature 97.7 F 97.7 F Pulse Rate 76 68 Pulse Rate [ 68 Anterior Bilateral] Pulse Rate [ Apical] Pulse Rate [ Left Radial] Pulse Rate [ Radial] Respiratory 19 16 Rate Respiratory 18 Rate [Anterior Bilateral] Blood Pressure 98/50 115/64 Blood Pressure [Right] O2 Sat by Pulse 97 100 100 Oximetry 02/20/19 02/20/19 10:00 12:49 Temperature 98.4 F Pulse Rate 69 Pulse Rate [ Anterior Bilateral] Pulse Rate [ 90 Apical] Pulse Rate [ 90 Left Radial] Pulse Rate [ 90 Radial] Respiratory 21 16 Rate Respiratory Rate [Anterior Bilateral] Blood Pressure Blood Pressure 133/68 [Right] O2 Sat by Pulse 98 95 Oximetry Constitutional: no acute distress, alert Eyes: non-icteric ENT: oropharynx moist Neck: supple, no JVD Effort: mildly labored Ascultation: Bilateral: diminished breath sounds, rhonchi Percussion: Bilateral: not dull Cardiovascular: regular rate and rhythm Gastrointestinal: normoactive bowel sounds, soft, non-tender, non-distended Integumentary: normal Extremities: no cyanosis, no edema, pulses normal, no ischemia or petechiae Neurologic: pupils equal and round, unable to assess Psychiatric: other (Unable to assess due to mental status.) CBC and BMP: 02/20/19 06:45 02/20/19 06:45 ABG, PT/INR, D-dimer: ABG POC ABG pH 7.377 (7.35-7.45) 02/15/19 09:34 POC ABG pCO2 38.8 (35-45) 02/15/19 09:34 POC ABG pO2 129 (80-105) H 02/15/19 09:34 POC ABG HCO3 22.8 (22-26 mml/L) 02/15/19 09:34 POC ABG Total CO2 24 (23-27mmol/L) 02/15/19 09:34 POC ABG O2 Sat 99 02/15/19 09:34 PT/INR, D-dimer PT 17.5 Sec. (12.2-14.9) H 02/14/19 08:05 INR 1.47 (0.87-1.13) H 02/14/19 08:05 Abnormal lab findings: Abnormal Labs 02/06/19 02/06/19 02/06/19 11:50 11:50 11:50 WBC 12.9 H RBC Hgb Hct RDW 18.8 H Plt Count 32 L Lymph % (Auto) [place] % (Auto) Lymph # Seg Neutrophils % Seg Neuts % (Manual) 84.0 H Lymphocytes % (Manual) 5.0 L Monocytes % (Manual) Eosinophils % (Manual) Seg Neutrophils # Man 10.8 H Lymphocytes # (Manual) 0.6 L Eosinophils # (Manual) PT 15.7 H INR 1.28 H APTT POC ABG pH POC ABG pCO2 POC ABG pO2 Sodium 164 H* Potassium 5.7 H Chloride 127.7 H Carbon Dioxide 20 L BUN 70 H Creatinine 2.8 H Glucose POC Glucose Lactic Acid Calcium Total Bilirubin 1.50 H AST 211 H ALT 252 H Alkaline Phosphatase 246 H Ammonia Total Creatine Kinase 1708 H CK-MB (CK-2) 9.5 H Troponin T 0.114 H* Total Protein Albumin 2.4 L Prealbumin HDL Cholesterol 39 L Vitamin B12 TSH Urine pH Urine WBC (Auto) Hep Bs Antibody, Quant Hepatitis C Antibody 02/06/19 02/06/19 02/06/19 11:50 11:50 11:50 WBC RBC Hgb Hct RDW Plt Count Lymph % (Auto) [place] % (Auto) Lymph # Seg Neutrophils % Seg Neuts % (Manual) Lymphocytes % (Manual) Monocytes % (Manual) Eosinophils % (Manual) Seg Neutrophils # Man Lymphocytes # (Manual) Eosinophils # (Manual) PT INR APTT POC ABG pH POC ABG pCO2 POC ABG pO2 Sodium Potassium Chloride Carbon Dioxide BUN Creatinine Glucose POC Glucose Lactic Acid 3.10 H* Calcium Total Bilirubin AST ALT Alkaline Phosphatase Ammonia 65.0 H Total Creatine Kinase CK-MB (CK-2) Troponin T Total Protein Albumin Prealbumin HDL Cholesterol Vitamin B12 TSH 8.460 H Urine pH Urine WBC (Auto) Hep Bs Antibody, Quant Hepatitis C Antibody 02/06/19 02/06/19 02/06/19 12:45 12:45 20:23 WBC RBC Hgb Hct RDW Plt Count Lymph % (Auto) [place] % (Auto) Lymph # Seg Neutrophils % Seg Neuts % (Manual) Lymphocytes % (Manual) Monocytes % (Manual) Eosinophils % (Manual) Seg Neutrophils # Man Lymphocytes # (Manual) Eosinophils # (Manual) PT 17.4 H INR 1.46 H APTT 41.9 H POC ABG pH POC ABG pCO2 POC ABG pO2 Sodium 165 H* Potassium 5.3 H Chloride 130.8 H Carbon Dioxide 21 L BUN 70 H Creatinine 2.8 H Glucose POC Glucose Lactic Acid 3.00 H* Calcium Total Bilirubin 1.50 H AST 211 H ALT 248 H Alkaline Phosphatase 241 H Ammonia Total Creatine Kinase 1906 H CK-MB (CK-2) 12.6 H Troponin T 0.135 H* Total Protein Albumin 2.5 L Prealbumin HDL Cholesterol Vitamin B12 TSH Urine pH Urine WBC (Auto) Hep Bs Antibody, Quant Hepatitis C Antibody 02/06/19 02/07/19 02/07/19 Unknown 10:31 10:31 WBC RBC Hgb Hct RDW Plt Count Lymph % (Auto) [place] % (Auto) Lymph # Seg Neutrophils % Seg Neuts % (Manual) Lymphocytes % (Manual) Monocytes % (Manual) Eosinophils % (Manual) Seg Neutrophils # Man Lymphocytes # (Manual) Eosinophils # (Manual) PT INR APTT POC ABG pH POC ABG pCO2 POC ABG pO2 Sodium 166 H* Potassium Chloride 134.7 H Carbon Dioxide 20 L BUN 68 H Creatinine 2.0 H Glucose POC Glucose Lactic Acid Calcium Total Bilirubin AST 150 H ALT 191 H Alkaline Phosphatase 204 H Ammonia 62.0 H Total Creatine Kinase CK-MB (CK-2) Troponin T Total Protein Albumin 2.3 L Prealbumin HDL Cholesterol Vitamin B12 TSH Urine pH 8.0 H Urine WBC (Auto) 58.0 H Hep Bs Antibody, Quant Hepatitis C Antibody 02/07/19 02/07/19 02/08/19 10:31 21:02 04:26 WBC RBC 3.50 L 3.39 L Hgb Hct RDW 18.8 H 19.5 H 19.5 H Plt Count 31 L 33 L 35 L Lymph % (Auto) 9.5 L 10.2 L [place] % (Auto) Lymph # 0.7 L 0.7 L Seg Neutrophils % 82.7 H 80.8 H Seg Neuts % (Manual) Lymphocytes % (Manual) Monocytes % (Manual) Eosinophils % (Manual) Seg Neutrophils # Man Lymphocytes # (Manual) Eosinophils # (Manual) PT INR APTT POC ABG pH POC ABG pCO2 POC ABG pO2 Sodium Potassium Chloride Carbon Dioxide BUN Creatinine Glucose POC Glucose Lactic Acid Calcium Total Bilirubin AST ALT Alkaline Phosphatase Ammonia Total Creatine Kinase CK-MB (CK-2) Troponin T Total Protein Albumin Prealbumin HDL Cholesterol Vitamin B12 TSH Urine pH Urine WBC (Auto) Hep Bs Antibody, Quant Hepatitis C Antibody 02/08/19 02/08/19 02/08/19 04:26 04:26 04:26 WBC RBC Hgb Hct RDW Plt Count Lymph % (Auto) [place] % (Auto) Lymph # Seg Neutrophils % Seg Neuts % (Manual) Lymphocytes % (Manual) Monocytes % (Manual) Eosinophils % (Manual) Seg Neutrophils # Man Lymphocytes # (Manual) Eosinophils # (Manual) PT INR APTT POC ABG pH POC ABG pCO2 POC ABG pO2 Sodium Potassium Chloride Carbon Dioxide BUN Creatinine Glucose POC Glucose Lactic Acid Calcium Total Bilirubin AST ALT Alkaline Phosphatase Ammonia Total Creatine Kinase CK-MB (CK-2) Troponin T Total Protein Albumin Prealbumin HDL Cholesterol Vitamin B12 1491 H TSH Urine pH Urine WBC (Auto) Hep Bs Antibody, Quant <5 L Hepatitis C Antibody Reactive A 02/08/19 02/08/19 02/08/19 04:26 04:26 19:12 WBC RBC 3.54 L Hgb Hct RDW 19.2 H Plt Count 41 L Lymph % (Auto) [place] % (Auto) Lymph # Seg Neutrophils % Seg Neuts % (Manual) 86.0 H Lymphocytes % (Manual) 6.0 L Monocytes % (Manual) Eosinophils % (Manual) 5.0 H Seg Neutrophils # Man Lymphocytes # (Manual) 0.4 L Eosinophils # (Manual) PT INR APTT POC ABG pH POC ABG pCO2 POC ABG pO2 Sodium 164 H* Potassium Chloride 135.7 H Carbon Dioxide 21 L BUN 59 H Creatinine 1.8 H Glucose 107 H POC Glucose Lactic Acid Calcium Total Bilirubin AST 112 H ALT 155 H Alkaline Phosphatase 185 H Ammonia 76.0 H Total Creatine Kinase 704 H CK-MB (CK-2) Troponin T Total Protein Albumin 2.1 L Prealbumin HDL Cholesterol Vitamin B12 TSH Urine pH Urine WBC (Auto) Hep Bs Antibody, Quant Hepatitis C Antibody 02/09/19 02/10/19 02/10/19 19:33 03:56 03:56 WBC RBC 3.34 L Hgb 9.8 L Hct RDW 19.6 H Plt Count 43 L Lymph % (Auto) [place] % (Auto) Lymph # Seg Neutrophils % Seg Neuts % (Manual) Lymphocytes % (Manual) Monocytes % (Manual) 9.0 H Eosinophils % (Manual) Seg Neutrophils # Man Lymphocytes # (Manual) Eosinophils # (Manual) PT INR APTT POC ABG pH POC ABG pCO2 POC ABG pO2 Sodium 156 H Potassium 3.3 L Chloride 128.7 H Carbon Dioxide BUN 34 H Creatinine Glucose 155 H POC Glucose Lactic Acid Calcium Total Bilirubin AST 59 H ALT 107 H Alkaline Phosphatase 159 H Ammonia 65.0 H Total Creatine Kinase 262 H CK-MB (CK-2) Troponin T Total Protein 6.2 L Albumin 2.0 L Prealbumin HDL Cholesterol Vitamin B12 TSH Urine pH Urine WBC (Auto) Hep Bs Antibody, Quant Hepatitis C Antibody 02/10/19 02/11/19 02/12/19 19:37 19:40 07:42 WBC 3.1 L 3.6 L RBC 3.05 L 3.27 L 3.26 L Hgb 9.1 L 9.7 L 9.6 L Hct 27.8 L 29.3 L 29.2 L RDW 18.8 H 18.5 H 18.7 H Plt Count 51 L 47 L 43 L Lymph % (Auto) [place] % (Auto) Lymph # 0.4 L Seg Neutrophils % 76.0 H Seg Neuts % (Manual) Lymphocytes % (Manual) 9.0 L Monocytes % (Manual) 9.0 H Eosinophils % (Manual) 12.0 H Seg Neutrophils # Man Lymphocytes # (Manual) 0.4 L Eosinophils # (Manual) 0.5 H PT INR APTT POC ABG pH POC ABG pCO2 POC ABG pO2 Sodium Potassium Chloride Carbon Dioxide BUN Creatinine Glucose POC Glucose Lactic Acid Calcium Total Bilirubin AST ALT Alkaline Phosphatase Ammonia Total Creatine Kinase CK-MB (CK-2) Troponin T Total Protein Albumin Prealbumin HDL Cholesterol Vitamin B12 TSH Urine pH Urine WBC (Auto) Hep Bs Antibody, Quant Hepatitis C Antibody 02/12/19 02/12/19 02/12/19 07:42 17:51 18:05 WBC RBC Hgb Hct RDW Plt Count Lymph % (Auto) [place] % (Auto) Lymph # Seg Neutrophils % Seg Neuts % (Manual) Lymphocytes % (Manual) Monocytes % (Manual) Eosinophils % (Manual) Seg Neutrophils # Man Lymphocytes # (Manual) Eosinophils # (Manual) PT INR APTT POC ABG pH POC ABG pCO2 POC ABG pO2 Sodium Potassium 3.5 L Chloride 115.8 H Carbon Dioxide 20 L BUN Creatinine Glucose 172 H POC Glucose < 40 L < 40 L Lactic Acid Calcium 8.2 L Total Bilirubin AST 53 H ALT 81 H Alkaline Phosphatase 149 H Ammonia Total Creatine Kinase CK-MB (CK-2) Troponin T Total Protein 5.9 L Albumin 1.8 L Prealbumin HDL Cholesterol Vitamin B12 TSH Urine pH Urine WBC (Auto) Hep Bs Antibody, Quant Hepatitis C Antibody 02/12/19 02/12/19 02/12/19 18:19 18:37 20:43 WBC RBC Hgb Hct RDW Plt Count Lymph % (Auto) [place] % (Auto) Lymph # Seg Neutrophils % Seg Neuts % (Manual) Lymphocytes % (Manual) Monocytes % (Manual) Eosinophils % (Manual) Seg Neutrophils # Man Lymphocytes # (Manual) Eosinophils # (Manual) PT INR APTT POC ABG pH POC ABG pCO2 POC ABG pO2 Sodium Potassium Chloride Carbon Dioxide BUN Creatinine Glucose POC Glucose 40 L 176 H 228 H Lactic Acid Calcium Total Bilirubin AST ALT Alkaline Phosphatase Ammonia Total Creatine Kinase CK-MB (CK-2) Troponin T Total Protein Albumin Prealbumin HDL Cholesterol Vitamin B12 TSH Urine pH Urine WBC (Auto) Hep Bs Antibody, Quant Hepatitis C Antibody 02/12/19 02/12/19 02/13/19 20:57 20:57 00:46 WBC 2.5 L RBC Hgb Hct RDW 18.9 H Plt Count 46 L Lymph % (Auto) 8.3 L [place] % (Auto) 7.6 H Lymph # 0.2 L Seg Neutrophils % 83.1 H Seg Neuts % (Manual) Lymphocytes % (Manual) Monocytes % (Manual) Eosinophils % (Manual) Seg Neutrophils # Man Lymphocytes # (Manual) Eosinophils # (Manual) PT INR APTT POC ABG pH POC ABG pCO2 POC ABG pO2 Sodium Potassium Chloride Carbon Dioxide BUN Creatinine Glucose 189 H POC Glucose 265 H Lactic Acid Calcium Total Bilirubin AST ALT Alkaline Phosphatase Ammonia Total Creatine Kinase CK-MB (CK-2) Troponin T Total Protein Albumin Prealbumin HDL Cholesterol Vitamin B12 TSH Urine pH Urine WBC (Auto) Hep Bs Antibody, Quant Hepatitis C Antibody 02/13/19 02/13/19 02/13/19 04:14 11:37 13:43 WBC RBC Hgb Hct RDW Plt Count Lymph % (Auto) [place] % (Auto) Lymph # Seg Neutrophils % Seg Neuts % (Manual) Lymphocytes % (Manual) Monocytes % (Manual) Eosinophils % (Manual) Seg Neutrophils # Man Lymphocytes # (Manual) Eosinophils # (Manual) PT INR APTT POC ABG pH POC ABG pCO2 POC ABG pO2 Sodium Potassium Chloride Carbon Dioxide BUN Creatinine Glucose POC Glucose 66 L Lactic Acid Calcium Total Bilirubin AST ALT Alkaline Phosphatase Ammonia 83.0 H Total Creatine Kinase CK-MB (CK-2) Troponin T Total Protein Albumin Prealbumin 0.044 L HDL Cholesterol Vitamin B12 TSH Urine pH Urine WBC (Auto) Hep Bs Antibody, Quant Hepatitis C Antibody 02/13/19 02/13/19 02/13/19 16:39 19:27 20:17 WBC 3.2 L RBC 3.17 L Hgb 9.3 L Hct 28.0 L RDW 18.3 H Plt Count 58 L Lymph % (Auto) [place] % (Auto) Lymph # Seg Neutrophils % Seg Neuts % (Manual) 84.0 H Lymphocytes % (Manual) 11.0 L Monocytes % (Manual) Eosinophils % (Manual) Seg Neutrophils # Man Lymphocytes # (Manual) 0.4 L Eosinophils # (Manual) PT INR APTT POC ABG pH POC ABG pCO2 POC ABG pO2 Sodium Potassium Chloride Carbon Dioxide BUN Creatinine Glucose POC Glucose 134 H 156 H Lactic Acid Calcium Total Bilirubin AST ALT Alkaline Phosphatase Ammonia Total Creatine Kinase CK-MB (CK-2) Troponin T Total Protein Albumin Prealbumin HDL Cholesterol Vitamin B12 TSH Urine pH Urine WBC (Auto) Hep Bs Antibody, Quant Hepatitis C Antibody 02/14/19 02/14/19 02/14/19 05:25 08:05 08:05 WBC RBC 3.07 L Hgb 9.3 L Hct 27.5 L RDW 17.9 H Plt Count 70 L Lymph % (Auto) 5.4 L [place] % (Auto) Lymph # 0.4 L Seg Neutrophils % 89.2 H Seg Neuts % (Manual) Lymphocytes % (Manual) Monocytes % (Manual) Eosinophils % (Manual) Seg Neutrophils # Man Lymphocytes # (Manual) Eosinophils # (Manual) PT INR APTT POC ABG pH POC ABG pCO2 POC ABG pO2 Sodium Potassium Chloride 109.8 H Carbon Dioxide 21 L BUN Creatinine 1.4 H D Glucose POC Glucose 143 H Lactic Acid Calcium 7.8 L Total Bilirubin AST ALT Alkaline Phosphatase Ammonia Total Creatine Kinase CK-MB (CK-2) Troponin T Total Protein Albumin Prealbumin HDL Cholesterol Vitamin B12 TSH Urine pH Urine WBC (Auto) Hep Bs Antibody, Quant Hepatitis C Antibody 02/14/19 02/14/19 02/14/19 08:05 12:33 14:00 WBC RBC Hgb Hct RDW Plt Count Lymph % (Auto) [place] % (Auto) Lymph # Seg Neutrophils % Seg Neuts % (Manual) Lymphocytes % (Manual) Monocytes % (Manual) Eosinophils % (Manual) Seg Neutrophils # Man Lymphocytes # (Manual) Eosinophils # (Manual) PT 17.5 H INR 1.47 H APTT POC ABG pH POC ABG pCO2 POC ABG pO2 Sodium Potassium Chloride Carbon Dioxide BUN Creatinine Glucose POC Glucose 131 H 176 H Lactic Acid Calcium Total Bilirubin AST ALT Alkaline Phosphatase Ammonia Total Creatine Kinase CK-MB (CK-2) Troponin T Total Protein Albumin Prealbumin HDL Cholesterol Vitamin B12 TSH Urine pH Urine WBC (Auto) Hep Bs Antibody, Quant Hepatitis C Antibody 02/14/19 02/14/19 02/15/19 15:34 21:10 08:18 WBC RBC Hgb Hct RDW Plt Count Lymph % (Auto) [place] % (Auto) Lymph # Seg Neutrophils % Seg Neuts % (Manual) Lymphocytes % (Manual) Monocytes % (Manual) Eosinophils % (Manual) Seg Neutrophils # Man Lymphocytes # (Manual) Eosinophils # (Manual) PT INR APTT POC ABG pH 7.271 L POC ABG pCO2 49.0 H POC ABG pO2 192 H Sodium Potassium Chloride Carbon Dioxide BUN Creatinine Glucose POC Glucose 130 H 135 H Lactic Acid Calcium Total Bilirubin AST ALT Alkaline Phosphatase Ammonia Total Creatine Kinase CK-MB (CK-2) Troponin T Total Protein Albumin Prealbumin HDL Cholesterol Vitamin B12 TSH Urine pH Urine WBC (Auto) Hep Bs Antibody, Quant Hepatitis C Antibody 02/15/19 02/15/19 02/16/19 09:34 12:34 04:28 WBC RBC Hgb Hct RDW Plt Count Lymph % (Auto) [place] % (Auto) Lymph # Seg Neutrophils % Seg Neuts % (Manual) Lymphocytes % (Manual) Monocytes % (Manual) Eosinophils % (Manual) Seg Neutrophils # Man Lymphocytes # (Manual) Eosinophils # (Manual) PT INR APTT POC ABG pH POC ABG pCO2 POC ABG pO2 129 H Sodium Potassium 3.3 L Chloride 113.3 H Carbon Dioxide 20 L BUN Creatinine Glucose 130 H POC Glucose 119 H Lactic Acid Calcium 8.2 L Total Bilirubin AST ALT Alkaline Phosphatase Ammonia Total Creatine Kinase CK-MB (CK-2) Troponin T Total Protein Albumin Prealbumin HDL Cholesterol Vitamin B12 TSH Urine pH Urine WBC (Auto) Hep Bs Antibody, Quant Hepatitis C Antibody 02/16/19 02/16/19 02/16/19 04:28 08:11 12:59 WBC RBC 2.89 L Hgb 8.8 L Hct 26.0 L RDW 18.3 H Plt Count 95 L Lymph % (Auto) [place] % (Auto) Lymph # Seg Neutrophils % Seg Neuts % (Manual) 93.0 H Lymphocytes % (Manual) 5.0 L Monocytes % (Manual) Eosinophils % (Manual) Seg Neutrophils # Man Lymphocytes # (Manual) 0.3 L Eosinophils # (Manual) PT INR APTT POC ABG pH POC ABG pCO2 POC ABG pO2 Sodium Potassium Chloride Carbon Dioxide BUN Creatinine Glucose POC Glucose 121 H 112 H Lactic Acid Calcium Total Bilirubin AST ALT Alkaline Phosphatase Ammonia Total Creatine Kinase CK-MB (CK-2) Troponin T Total Protein Albumin Prealbumin HDL Cholesterol Vitamin B12 TSH Urine pH Urine WBC (Auto) Hep Bs Antibody, Quant Hepatitis C Antibody 02/16/19 02/16/19 02/18/19 16:58 20:28 04:25 WBC RBC Hgb Hct RDW Plt Count Lymph % (Auto) [place] % (Auto) Lymph # Seg Neutrophils % Seg Neuts % (Manual) Lymphocytes % (Manual) Monocytes % (Manual) Eosinophils % (Manual) Seg Neutrophils # Man Lymphocytes # (Manual) Eosinophils # (Manual) PT INR APTT POC ABG pH POC ABG pCO2 POC ABG pO2 Sodium Potassium Chloride Carbon Dioxide BUN Creatinine Glucose POC Glucose 128 H 111 H 143 H Lactic Acid Calcium Total Bilirubin AST ALT Alkaline Phosphatase Ammonia Total Creatine Kinase CK-MB (CK-2) Troponin T Total Protein Albumin Prealbumin HDL Cholesterol Vitamin B12 TSH Urine pH Urine WBC (Auto) Hep Bs Antibody, Quant Hepatitis C Antibody 02/18/19 02/18/19 02/18/19 06:28 06:28 11:27 WBC 3.9 L RBC 2.91 L Hgb 8.7 L Hct 26.3 L RDW 18.5 H Plt Count 99 L Lymph % (Auto) [place] % (Auto) 8.9 H Lymph # 0.5 L Seg Neutrophils % 75.4 H Seg Neuts % (Manual) Lymphocytes % (Manual) Monocytes % (Manual) Eosinophils % (Manual) Seg Neutrophils # Man Lymphocytes # (Manual) Eosinophils # (Manual) PT INR APTT POC ABG pH POC ABG pCO2 POC ABG pO2 Sodium Potassium 3.2 L Chloride 111.4 H Carbon Dioxide BUN Creatinine Glucose 113 H POC Glucose 122 H Lactic Acid Calcium 8.1 L Total Bilirubin AST ALT Alkaline Phosphatase Ammonia Total Creatine Kinase CK-MB (CK-2) Troponin T Total Protein Albumin Prealbumin HDL Cholesterol Vitamin B12 TSH Urine pH Urine WBC (Auto) Hep Bs Antibody, Quant Hepatitis C Antibody 02/18/19 02/19/19 02/19/19 18:30 03:51 03:51 WBC 3.4 L RBC 2.95 L Hgb 8.8 L Hct 26.9 L RDW 19.4 H Plt Count 107 L Lymph % (Auto) [place] % (Auto) 11.7 H Lymph # 0.7 L Seg Neutrophils % Seg Neuts % (Manual) Lymphocytes % (Manual) Monocytes % (Manual) Eosinophils % (Manual) Seg Neutrophils # Man Lymphocytes # (Manual) Eosinophils # (Manual) PT INR APTT POC ABG pH POC ABG pCO2 POC ABG pO2 Sodium Potassium Chloride 110.3 H Carbon Dioxide BUN Creatinine Glucose 106 H POC Glucose 133 H Lactic Acid Calcium 8.0 L Total Bilirubin AST ALT Alkaline Phosphatase 145 H Ammonia Total Creatine Kinase CK-MB (CK-2) Troponin T Total Protein 6.1 L Albumin 1.9 L Prealbumin HDL Cholesterol Vitamin B12 TSH Urine pH Urine WBC (Auto) Hep Bs Antibody, Quant Hepatitis C Antibody 02/19/19 02/19/19 02/20/19 09:15 12:23 06:45 WBC 2.8 L RBC 2.80 L Hgb 8.6 L Hct 25.0 L RDW 19.7 H Plt Count 110 L Lymph % (Auto) [place] % (Auto) 9.9 H Lymph # 0.4 L Seg Neutrophils % 72.6 H Seg Neuts % (Manual) Lymphocytes % (Manual) Monocytes % (Manual) Eosinophils % (Manual) Seg Neutrophils # Man Lymphocytes # (Manual) Eosinophils # (Manual) PT INR APTT POC ABG pH POC ABG pCO2 POC ABG pO2 Sodium Potassium Chloride Carbon Dioxide BUN Creatinine Glucose POC Glucose 134 H 121 H Lactic Acid Calcium Total Bilirubin AST ALT Alkaline Phosphatase Ammonia Total Creatine Kinase CK-MB (CK-2) Troponin T Total Protein Albumin Prealbumin HDL Cholesterol Vitamin B12 TSH Urine pH Urine WBC (Auto) Hep Bs Antibody, Quant Hepatitis C Antibody 02/20/19 06:45 WBC RBC Hgb Hct RDW Plt Count Lymph % (Auto) [place] % (Auto) Lymph # Seg Neutrophils % Seg Neuts % (Manual) Lymphocytes % (Manual) Monocytes % (Manual) Eosinophils % (Manual) Seg Neutrophils # Man Lymphocytes # (Manual) Eosinophils # (Manual) PT INR APTT POC ABG pH POC ABG pCO2 POC ABG pO2 Sodium Potassium 3.2 L Chloride 108.4 H Carbon Dioxide BUN 5 L Creatinine Glucose POC Glucose Lactic Acid Calcium 8.1 L Total Bilirubin AST ALT Alkaline Phosphatase 150 H Ammonia Total Creatine Kinase CK-MB (CK-2) Troponin T Total Protein 6.2 L Albumin 2.0 L Prealbumin HDL Cholesterol Vitamin B12 TSH Urine pH Urine WBC (Auto) Hep Bs Antibody, Quant Hepatitis C Antibody Allied health notes reviewed: nursing
[2019-02-20] MEDS: AZITHROMYCIN 500 MG in SODIUM CHLORIDE 0.9% 250ML 250 ML IV SCH (21:57)
[2019-02-21] MEDS: INSULIN LISPRO 100 UNIT/ML SUB-Q SCH ×4 (07:51→22:10)
[2019-02-21] MEDS: ARFORMOTEROL 15 MCG/2 ML NEBU IH SCH ×2 (07:52→21:42)
[2019-02-21] MEDS: BUDESONIDE 0.5 MG/2 ML NEBU IH SCH ×2 (07:52→21:42)
[2019-02-21 08:30] LABS: Hematocrit 23.6 % (30.3-42.9); Mean Corpuscular HGB Conc 34 % (30-34); Mean Corpuscular Volume 90 fl (79-97); Platelet Count 103 K/mm3 (140-440); Red Blood Count 2.61 M/mm3 (3.65-5.03); Red Cell Distribution Width 19.3 % (13.2-15.2)
[2019-02-21] MEDS: FLUTICASONE PROPIONATE NASAL SPRAY 16 GM NS SCH (09:51)
[2019-02-21] MEDS: cefTRIAXone/NS 1 GM/50 ML 1 GM/50 ML BAG IV SCH (09:51)
[2019-02-21] MEDS: FOLIC ACID 1 MG TAB PO SCH (09:52)
[2019-02-21] MEDS: CYPROHEPTADINE 4 MG TAB PO SCH ×2 (09:52→22:10)
[2019-02-21] MEDS: THIAMINE 100 MG TAB PO SCH (09:52)
[2019-02-21 11:22] LABS: Alanine Aminotransferase 32 units/L (7-56); Albumin 1.8 g/dL (3.9-5); BUN/Creatinine Ratio 4; Blood Urea Nitrogen 3 mg/dL (7-17); Calcium 7.8 mg/dL (8.4-10.2); Hemolysis Index 6
[2019-02-21 12:07] LABS: Total Cells Counted 100
[2019-02-21 12:13] LABS: RBC Morphology Normal
[2019-02-21 12:14] LABS: Platelet Estimate Consistent w Auto
[2019-02-21] MEDS ORDERED: POTASSIUM CHLORIDE 20 MEQ PACKET FEEDTUBE ONE (12:45)
--- NOTE | 2019-02-21 13:20 | Progress Note ---
Assessment and Plan Patient awake. No acute respiratory distress. Patient is on 2 litres O2. O2 saturation 100%. BIPAP stand by in the room.Patient afebrile. No leukocytosis. Patient start eating soft food. . - Patient Problems (1) Acute hypercapnic respiratory failure Current Visit: Yes Status: Acute Plan to address problem: O2 2 litres via nasal canula. BIPAP 16/6, rate 16, FIO2 40% stand by in the room. Brovanna/Budesonide aerosol treatments q 12 hours. Albuterol/atrovent aerosol treatments q 6 hours prn for shortness of breath. Continue Ceftrioxone and recommend to add zithromax also. SCDs GI prophylaxis. (2) Pneumonia Current Visit: Yes Status: Acute Plan to address problem: Continue zithromax to ceftrioxone. (3) UTI (urinary tract infection) Current Visit: Yes Status: Acute Plan to address problem: Patient is on ceftrioxone. (4) Sepsis Current Visit: Yes Status: Acute Plan to address problem: Improved. Patient is on Ceftrioxone and Zithromax. (5) Acute renal failure (ARF) Current Visit: Yes Status: Acute Plan to address problem: Management as per primary care and nephrology. (6) Acute hepatic encephalopathy Current Visit: No Status: Acute Plan to address problem: Management as per primary care. Subjective Date of service: 02/21/19 Principal diagnosis: Ac hypercapnic hypoxemic resp failure; Ac. metabo encephalopathy; PNA; UTI Interval history: Patient awake. No acute respiratory distress. Patient is on 2 litres O2. O2 saturation 100%. BIPAP stand by in the room.Patient afebrile. No leukocytosis. Patient start eating soft food. Objective Vital Signs - 12hr 02/21/19 02/21/19 02/21/19 03:48 07:35 07:52 Temperature 97.4 F L 97.7 F Pulse Rate 39 L 69 Pulse Rate [ 77 Anterior Bilateral] Pulse Rate [ Apical] Pulse Rate [ Left Radial] Pulse Rate [ Radial] Respiratory 19 18 Rate Respiratory 18 Rate [Anterior Bilateral] Blood Pressure 120/65 122/76 O2 Sat by Pulse 99 88 Oximetry 02/21/19 02/21/19 02/21/19 07:54 07:55 08:17 Temperature Pulse Rate Pulse Rate [ Anterior Bilateral] Pulse Rate [ 69 Apical] Pulse Rate [ 69 Left Radial] Pulse Rate [ 69 Radial] Respiratory 18 Rate Respiratory Rate [Anterior Bilateral] Blood Pressure O2 Sat by Pulse 96 96 98 Oximetry Constitutional: no acute distress, alert Eyes: non-icteric ENT: oropharynx moist Neck: supple, no JVD Effort: mildly labored Ascultation: Bilateral: diminished breath sounds, rhonchi Percussion: Bilateral: not dull Cardiovascular: regular rate and rhythm Gastrointestinal: normoactive bowel sounds, soft, non-tender, non-distended Integumentary: normal Extremities: no cyanosis, no edema, pulses normal, no ischemia or petechiae Neurologic: pupils equal and round, unable to assess Psychiatric: other (Unable to assess due to mental status.) CBC and BMP: 02/21/19 19:36 02/21/19 19:36 ABG, PT/INR, D-dimer: ABG POC ABG pH 7.377 (7.35-7.45) 02/15/19 09:34 POC ABG pCO2 38.8 (35-45) 02/15/19 09:34 POC ABG pO2 129 (80-105) H 02/15/19 09:34 POC ABG HCO3 22.8 (22-26 mml/L) 02/15/19 09:34 POC ABG Total CO2 24 (23-27mmol/L) 02/15/19 09:34 POC ABG O2 Sat 99 02/15/19 09:34 PT/INR, D-dimer PT 17.5 Sec. (12.2-14.9) H 02/14/19 08:05 INR 1.47 (0.87-1.13) H 02/14/19 08:05 Abnormal lab findings: Abnormal Labs 02/06/19 02/06/19 02/06/19 11:50 11:50 11:50 WBC 12.9 H RBC Hgb Hct RDW 18.8 H Plt Count 32 L Lymph % (Auto) Caroline % (Auto) Lymph # Seg Neutrophils % Seg Neuts % (Manual) 84.0 H Lymphocytes % (Manual) 5.0 L Monocytes % (Manual) Eosinophils % (Manual) Nucleated RBC % Seg Neutrophils # Man 10.8 H Lymphocytes # (Manual) 0.6 L Eosinophils # (Manual) PT 15.7 H INR 1.28 H APTT POC ABG pH POC ABG pCO2 POC ABG pO2 Sodium 164 H* Potassium 5.7 H Chloride 127.7 H Carbon Dioxide 20 L BUN 70 H Creatinine 2.8 H Glucose POC Glucose Lactic Acid Calcium Total Bilirubin 1.50 H AST 211 H ALT 252 H Alkaline Phosphatase 246 H Ammonia Total Creatine Kinase 1708 H CK-MB (CK-2) 9.5 H Troponin T 0.114 H* Total Protein Albumin 2.4 L Prealbumin HDL Cholesterol 39 L Vitamin B12 TSH Urine pH Urine WBC (Auto) Hep Bs Antibody, Quant Hepatitis C Antibody 02/06/19 02/06/19 02/06/19 11:50 11:50 11:50 WBC RBC Hgb Hct RDW Plt Count Lymph % (Auto) Caroline % (Auto) Lymph # Seg Neutrophils % Seg Neuts % (Manual) Lymphocytes % (Manual) Monocytes % (Manual) Eosinophils % (Manual) Nucleated RBC % Seg Neutrophils # Man Lymphocytes # (Manual) Eosinophils # (Manual) PT INR APTT POC ABG pH POC ABG pCO2 POC ABG pO2 Sodium Potassium Chloride Carbon Dioxide BUN Creatinine Glucose POC Glucose Lactic Acid 3.10 H* Calcium Total Bilirubin AST ALT Alkaline Phosphatase Ammonia 65.0 H Total Creatine Kinase CK-MB (CK-2) Troponin T Total Protein Albumin Prealbumin HDL Cholesterol Vitamin B12 TSH 8.460 H Urine pH Urine WBC (Auto) Hep Bs Antibody, Quant Hepatitis C Antibody 02/06/19 02/06/19 02/06/19 12:45 12:45 20:23 WBC RBC Hgb Hct RDW Plt Count Lymph % (Auto) Caroline % (Auto) Lymph # Seg Neutrophils % Seg Neuts % (Manual) Lymphocytes % (Manual) Monocytes % (Manual) Eosinophils % (Manual) Nucleated RBC % Seg Neutrophils # Man Lymphocytes # (Manual) Eosinophils # (Manual) PT 17.4 H INR 1.46 H APTT 41.9 H POC ABG pH POC ABG pCO2 POC ABG pO2 Sodium 165 H* Potassium 5.3 H Chloride 130.8 H Carbon Dioxide 21 L BUN 70 H Creatinine 2.8 H Glucose POC Glucose Lactic Acid 3.00 H* Calcium Total Bilirubin 1.50 H AST 211 H ALT 248 H Alkaline Phosphatase 241 H Ammonia Total Creatine Kinase 1906 H CK-MB (CK-2) 12.6 H Troponin T 0.135 H* Total Protein Albumin 2.5 L Prealbumin HDL Cholesterol Vitamin B12 TSH Urine pH Urine WBC (Auto) Hep Bs Antibody, Quant Hepatitis C Antibody 02/06/19 02/07/19 02/07/19 Unknown 10:31 10:31 WBC RBC Hgb Hct RDW Plt Count Lymph % (Auto) Caroline % (Auto) Lymph # Seg Neutrophils % Seg Neuts % (Manual) Lymphocytes % (Manual) Monocytes % (Manual) Eosinophils % (Manual) Nucleated RBC % Seg Neutrophils # Man Lymphocytes # (Manual) Eosinophils # (Manual) PT INR APTT POC ABG pH POC ABG pCO2 POC ABG pO2 Sodium 166 H* Potassium Chloride 134.7 H Carbon Dioxide 20 L BUN 68 H Creatinine 2.0 H Glucose POC Glucose Lactic Acid Calcium Total Bilirubin AST 150 H ALT 191 H Alkaline Phosphatase 204 H Ammonia 62.0 H Total Creatine Kinase CK-MB (CK-2) Troponin T Total Protein Albumin 2.3 L Prealbumin HDL Cholesterol Vitamin B12 TSH Urine pH 8.0 H Urine WBC (Auto) 58.0 H Hep Bs Antibody, Quant Hepatitis C Antibody 02/07/19 02/07/19 02/08/19 10:31 21:02 04:26 WBC RBC 3.50 L 3.39 L Hgb Hct RDW 18.8 H 19.5 H 19.5 H Plt Count 31 L 33 L 35 L Lymph % (Auto) 9.5 L 10.2 L Caroline % (Auto) Lymph # 0.7 L 0.7 L Seg Neutrophils % 82.7 H 80.8 H Seg Neuts % (Manual) Lymphocytes % (Manual) Monocytes % (Manual) Eosinophils % (Manual) Nucleated RBC % Seg Neutrophils # Man Lymphocytes # (Manual) Eosinophils # (Manual) PT INR APTT POC ABG pH POC ABG pCO2 POC ABG pO2 Sodium Potassium Chloride Carbon Dioxide BUN Creatinine Glucose POC Glucose Lactic Acid Calcium Total Bilirubin AST ALT Alkaline Phosphatase Ammonia Total Creatine Kinase CK-MB (CK-2) Troponin T Total Protein Albumin Prealbumin HDL Cholesterol Vitamin B12 TSH Urine pH Urine WBC (Auto) Hep Bs Antibody, Quant Hepatitis C Antibody 02/08/19 02/08/19 02/08/19 04:26 04:26 04:26 WBC RBC Hgb Hct RDW Plt Count Lymph % (Auto) Caroline % (Auto) Lymph # Seg Neutrophils % Seg Neuts % (Manual) Lymphocytes % (Manual) Monocytes % (Manual) Eosinophils % (Manual) Nucleated RBC % Seg Neutrophils # Man Lymphocytes # (Manual) Eosinophils # (Manual) PT INR APTT POC ABG pH POC ABG pCO2 POC ABG pO2 Sodium Potassium Chloride Carbon Dioxide BUN Creatinine Glucose POC Glucose Lactic Acid Calcium Total Bilirubin AST ALT Alkaline Phosphatase Ammonia Total Creatine Kinase CK-MB (CK-2) Troponin T Total Protein Albumin Prealbumin HDL Cholesterol Vitamin B12 1491 H TSH Urine pH Urine WBC (Auto) Hep Bs Antibody, Quant <5 L Hepatitis C Antibody Reactive A 02/08/19 02/08/19 02/08/19 04:26 04:26 19:12 WBC RBC 3.54 L Hgb Hct RDW 19.2 H Plt Count 41 L Lymph % (Auto) Caroline % (Auto) Lymph # Seg Neutrophils % Seg Neuts % (Manual) 86.0 H Lymphocytes % (Manual) 6.0 L Monocytes % (Manual) Eosinophils % (Manual) 5.0 H Nucleated RBC % Seg Neutrophils # Man Lymphocytes # (Manual) 0.4 L Eosinophils # (Manual) PT INR APTT POC ABG pH POC ABG pCO2 POC ABG pO2 Sodium 164 H* Potassium Chloride 135.7 H Carbon Dioxide 21 L BUN 59 H Creatinine 1.8 H Glucose 107 H POC Glucose Lactic Acid Calcium Total Bilirubin AST 112 H ALT 155 H Alkaline Phosphatase 185 H Ammonia 76.0 H Total Creatine Kinase 704 H CK-MB (CK-2) Troponin T Total Protein Albumin 2.1 L Prealbumin HDL Cholesterol Vitamin B12 TSH Urine pH Urine WBC (Auto) Hep Bs Antibody, Quant Hepatitis C Antibody 02/09/19 02/10/19 02/10/19 19:33 03:56 03:56 WBC RBC 3.34 L Hgb 9.8 L Hct RDW 19.6 H Plt Count 43 L Lymph % (Auto) Caroline % (Auto) Lymph # Seg Neutrophils % Seg Neuts % (Manual) Lymphocytes % (Manual) Monocytes % (Manual) 9.0 H Eosinophils % (Manual) Nucleated RBC % Seg Neutrophils # Man Lymphocytes # (Manual) Eosinophils # (Manual) PT INR APTT POC ABG pH POC ABG pCO2 POC ABG pO2 Sodium 156 H Potassium 3.3 L Chloride 128.7 H Carbon Dioxide BUN 34 H Creatinine Glucose 155 H POC Glucose Lactic Acid Calcium Total Bilirubin AST 59 H ALT 107 H Alkaline Phosphatase 159 H Ammonia 65.0 H Total Creatine Kinase 262 H CK-MB (CK-2) Troponin T Total Protein 6.2 L Albumin 2.0 L Prealbumin HDL Cholesterol Vitamin B12 TSH Urine pH Urine WBC (Auto) Hep Bs Antibody, Quant Hepatitis C Antibody 02/10/19 02/11/19 02/12/19 19:37 19:40 07:42 WBC 3.1 L 3.6 L RBC 3.05 L 3.27 L 3.26 L Hgb 9.1 L 9.7 L 9.6 L Hct 27.8 L 29.3 L 29.2 L RDW 18.8 H 18.5 H 18.7 H Plt Count 51 L 47 L 43 L Lymph % (Auto) Caroline % (Auto) Lymph # 0.4 L Seg Neutrophils % 76.0 H Seg Neuts % (Manual) Lymphocytes % (Manual) 9.0 L Monocytes % (Manual) 9.0 H Eosinophils % (Manual) 12.0 H Nucleated RBC % Seg Neutrophils # Man Lymphocytes # (Manual) 0.4 L Eosinophils # (Manual) 0.5 H PT INR APTT POC ABG pH POC ABG pCO2 POC ABG pO2 Sodium Potassium Chloride Carbon Dioxide BUN Creatinine Glucose POC Glucose Lactic Acid Calcium Total Bilirubin AST ALT Alkaline Phosphatase Ammonia Total Creatine Kinase CK-MB (CK-2) Troponin T Total Protein Albumin Prealbumin HDL Cholesterol Vitamin B12 TSH Urine pH Urine WBC (Auto) Hep Bs Antibody, Quant Hepatitis C Antibody 02/12/19 02/12/19 02/12/19 07:42 17:51 18:05 WBC RBC Hgb Hct RDW Plt Count Lymph % (Auto) Caroline % (Auto) Lymph # Seg Neutrophils % Seg Neuts % (Manual) Lymphocytes % (Manual) Monocytes % (Manual) Eosinophils % (Manual) Nucleated RBC % Seg Neutrophils # Man Lymphocytes # (Manual) Eosinophils # (Manual) PT INR APTT POC ABG pH POC ABG pCO2 POC ABG pO2 Sodium Potassium 3.5 L Chloride 115.8 H Carbon Dioxide 20 L BUN Creatinine Glucose 172 H POC Glucose < 40 L < 40 L Lactic Acid Calcium 8.2 L Total Bilirubin AST 53 H ALT 81 H Alkaline Phosphatase 149 H Ammonia Total Creatine Kinase CK-MB (CK-2) Troponin T Total Protein 5.9 L Albumin 1.8 L Prealbumin HDL Cholesterol Vitamin B12 TSH Urine pH Urine WBC (Auto) Hep Bs Antibody, Quant Hepatitis C Antibody 02/12/19 02/12/19 02/12/19 18:19 18:37 20:43 WBC RBC Hgb Hct RDW Plt Count Lymph % (Auto) Caroline % (Auto) Lymph # Seg Neutrophils % Seg Neuts % (Manual) Lymphocytes % (Manual) Monocytes % (Manual) Eosinophils % (Manual) Nucleated RBC % Seg Neutrophils # Man Lymphocytes # (Manual) Eosinophils # (Manual) PT INR APTT POC ABG pH POC ABG pCO2 POC ABG pO2 Sodium Potassium Chloride Carbon Dioxide BUN Creatinine Glucose POC Glucose 40 L 176 H 228 H Lactic Acid Calcium Total Bilirubin AST ALT Alkaline Phosphatase Ammonia Total Creatine Kinase CK-MB (CK-2) Troponin T Total Protein Albumin Prealbumin HDL Cholesterol Vitamin B12 TSH Urine pH Urine WBC (Auto) Hep Bs Antibody, Quant Hepatitis C Antibody 02/12/19 02/12/19 02/13/19 20:57 20:57 00:46 WBC 2.5 L RBC Hgb Hct RDW 18.9 H Plt Count 46 L Lymph % (Auto) 8.3 L Caroline % (Auto) 7.6 H Lymph # 0.2 L Seg Neutrophils % 83.1 H Seg Neuts % (Manual) Lymphocytes % (Manual) Monocytes % (Manual) Eosinophils % (Manual) Nucleated RBC % Seg Neutrophils # Man Lymphocytes # (Manual) Eosinophils # (Manual) PT INR APTT POC ABG pH POC ABG pCO2 POC ABG pO2 Sodium Potassium Chloride Carbon Dioxide BUN Creatinine Glucose 189 H POC Glucose 265 H Lactic Acid Calcium Total Bilirubin AST ALT Alkaline Phosphatase Ammonia Total Creatine Kinase CK-MB (CK-2) Troponin T Total Protein Albumin Prealbumin HDL Cholesterol Vitamin B12 TSH Urine pH Urine WBC (Auto) Hep Bs Antibody, Quant Hepatitis C Antibody 02/13/19 02/13/19 02/13/19 04:14 11:37 13:43 WBC RBC Hgb Hct RDW Plt Count Lymph % (Auto) Caroline % (Auto) Lymph # Seg Neutrophils % Seg Neuts % (Manual) Lymphocytes % (Manual) Monocytes % (Manual) Eosinophils % (Manual) Nucleated RBC % Seg Neutrophils # Man Lymphocytes # (Manual) Eosinophils # (Manual) PT INR APTT POC ABG pH POC ABG pCO2 POC ABG pO2 Sodium Potassium Chloride Carbon Dioxide BUN Creatinine Glucose POC Glucose 66 L Lactic Acid Calcium Total Bilirubin AST ALT Alkaline Phosphatase Ammonia 83.0 H Total Creatine Kinase CK-MB (CK-2) Troponin T Total Protein Albumin Prealbumin 0.044 L HDL Cholesterol Vitamin B12 TSH Urine pH Urine WBC (Auto) Hep Bs Antibody, Quant Hepatitis C Antibody 02/13/19 02/13/19 02/13/19 16:39 19:27 20:17 WBC 3.2 L RBC 3.17 L Hgb 9.3 L Hct 28.0 L RDW 18.3 H Plt Count 58 L Lymph % (Auto) Caroline % (Auto) Lymph # Seg Neutrophils % Seg Neuts % (Manual) 84.0 H Lymphocytes % (Manual) 11.0 L Monocytes % (Manual) Eosinophils % (Manual) Nucleated RBC % Seg Neutrophils # Man Lymphocytes # (Manual) 0.4 L Eosinophils # (Manual) PT INR APTT POC ABG pH POC ABG pCO2 POC ABG pO2 Sodium Potassium Chloride Carbon Dioxide BUN Creatinine Glucose POC Glucose 134 H 156 H Lactic Acid Calcium Total Bilirubin AST ALT Alkaline Phosphatase Ammonia Total Creatine Kinase CK-MB (CK-2) Troponin T Total Protein Albumin Prealbumin HDL Cholesterol Vitamin B12 TSH Urine pH Urine WBC (Auto) Hep Bs Antibody, Quant Hepatitis C Antibody 02/14/19 02/14/19 02/14/19 05:25 08:05 08:05 WBC RBC 3.07 L Hgb 9.3 L Hct 27.5 L RDW 17.9 H Plt Count 70 L Lymph % (Auto) 5.4 L Caroline % (Auto) Lymph # 0.4 L Seg Neutrophils % 89.2 H Seg Neuts % (Manual) Lymphocytes % (Manual) Monocytes % (Manual) Eosinophils % (Manual) Nucleated RBC % Seg Neutrophils # Man Lymphocytes # (Manual) Eosinophils # (Manual) PT INR APTT POC ABG pH POC ABG pCO2 POC ABG pO2 Sodium Potassium Chloride 109.8 H Carbon Dioxide 21 L BUN Creatinine 1.4 H D Glucose POC Glucose 143 H Lactic Acid Calcium 7.8 L Total Bilirubin AST ALT Alkaline Phosphatase Ammonia Total Creatine Kinase CK-MB (CK-2) Troponin T Total Protein Albumin Prealbumin HDL Cholesterol Vitamin B12 TSH Urine pH Urine WBC (Auto) Hep Bs Antibody, Quant Hepatitis C Antibody 02/14/19 02/14/19 02/14/19 08:05 12:33 14:00 WBC RBC Hgb Hct RDW Plt Count Lymph % (Auto) Caroline % (Auto) Lymph # Seg Neutrophils % Seg Neuts % (Manual) Lymphocytes % (Manual) Monocytes % (Manual) Eosinophils % (Manual) Nucleated RBC % Seg Neutrophils # Man Lymphocytes # (Manual) Eosinophils # (Manual) PT 17.5 H INR 1.47 H APTT POC ABG pH POC ABG pCO2 POC ABG pO2 Sodium Potassium Chloride Carbon Dioxide BUN Creatinine Glucose POC Glucose 131 H 176 H Lactic Acid Calcium Total Bilirubin AST ALT Alkaline Phosphatase Ammonia Total Creatine Kinase CK-MB (CK-2) Troponin T Total Protein Albumin Prealbumin HDL Cholesterol Vitamin B12 TSH Urine pH Urine WBC (Auto) Hep Bs Antibody, Quant Hepatitis C Antibody 02/14/19 02/14/19 02/15/19 15:34 21:10 08:18 WBC RBC Hgb Hct RDW Plt Count Lymph % (Auto) Caroline % (Auto) Lymph # Seg Neutrophils % Seg Neuts % (Manual) Lymphocytes % (Manual) Monocytes % (Manual) Eosinophils % (Manual) Nucleated RBC % Seg Neutrophils # Man Lymphocytes # (Manual) Eosinophils # (Manual) PT INR APTT POC ABG pH 7.271 L POC ABG pCO2 49.0 H POC ABG pO2 192 H Sodium Potassium Chloride Carbon Dioxide BUN Creatinine Glucose POC Glucose 130 H 135 H Lactic Acid Calcium Total Bilirubin AST ALT Alkaline Phosphatase Ammonia Total Creatine Kinase CK-MB (CK-2) Troponin T Total Protein Albumin Prealbumin HDL Cholesterol Vitamin B12 TSH Urine pH Urine WBC (Auto) Hep Bs Antibody, Quant Hepatitis C Antibody 02/15/19 02/15/19 02/16/19 09:34 12:34 04:28 WBC RBC Hgb Hct RDW Plt Count Lymph % (Auto) Caroline % (Auto) Lymph # Seg Neutrophils % Seg Neuts % (Manual) Lymphocytes % (Manual) Monocytes % (Manual) Eosinophils % (Manual) Nucleated RBC % Seg Neutrophils # Man Lymphocytes # (Manual) Eosinophils # (Manual) PT INR APTT POC ABG pH POC ABG pCO2 POC ABG pO2 129 H Sodium Potassium 3.3 L Chloride 113.3 H Carbon Dioxide 20 L BUN Creatinine Glucose 130 H POC Glucose 119 H Lactic Acid Calcium 8.2 L Total Bilirubin AST ALT Alkaline Phosphatase Ammonia Total Creatine Kinase CK-MB (CK-2) Troponin T Total Protein Albumin Prealbumin HDL Cholesterol Vitamin B12 TSH Urine pH Urine WBC (Auto) Hep Bs Antibody, Quant Hepatitis C Antibody 02/16/19 02/16/19 02/16/19 04:28 08:11 12:59 WBC RBC 2.89 L Hgb 8.8 L Hct 26.0 L RDW 18.3 H Plt Count 95 L Lymph % (Auto) Caroline % (Auto) Lymph # Seg Neutrophils % Seg Neuts % (Manual) 93.0 H Lymphocytes % (Manual) 5.0 L Monocytes % (Manual) Eosinophils % (Manual) Nucleated RBC % Seg Neutrophils # Man Lymphocytes # (Manual) 0.3 L Eosinophils # (Manual) PT INR APTT POC ABG pH POC ABG pCO2 POC ABG pO2 Sodium Potassium Chloride Carbon Dioxide BUN Creatinine Glucose POC Glucose 121 H 112 H Lactic Acid Calcium Total Bilirubin AST ALT Alkaline Phosphatase Ammonia Total Creatine Kinase CK-MB (CK-2) Troponin T Total Protein Albumin Prealbumin HDL Cholesterol Vitamin B12 TSH Urine pH Urine WBC (Auto) Hep Bs Antibody, Quant Hepatitis C Antibody 02/16/19 02/16/19 02/18/19 16:58 20:28 04:25 WBC RBC Hgb Hct RDW Plt Count Lymph % (Auto) Caroline % (Auto) Lymph # Seg Neutrophils % Seg Neuts % (Manual) Lymphocytes % (Manual) Monocytes % (Manual) Eosinophils % (Manual) Nucleated RBC % Seg Neutrophils # Man Lymphocytes # (Manual) Eosinophils # (Manual) PT INR APTT POC ABG pH POC ABG pCO2 POC ABG pO2 Sodium Potassium Chloride Carbon Dioxide BUN Creatinine Glucose POC Glucose 128 H 111 H 143 H Lactic Acid Calcium Total Bilirubin AST ALT Alkaline Phosphatase Ammonia Total Creatine Kinase CK-MB (CK-2) Troponin T Total Protein Albumin Prealbumin HDL Cholesterol Vitamin B12 TSH Urine pH Urine WBC (Auto) Hep Bs Antibody, Quant Hepatitis C Antibody 02/18/19 02/18/19 02/18/19 06:28 06:28 11:27 WBC 3.9 L RBC 2.91 L Hgb 8.7 L Hct 26.3 L RDW 18.5 H Plt Count 99 L Lymph % (Auto) Caroline % (Auto) 8.9 H Lymph # 0.5 L Seg Neutrophils % 75.4 H Seg Neuts % (Manual) Lymphocytes % (Manual) Monocytes % (Manual) Eosinophils % (Manual) Nucleated RBC % Seg Neutrophils # Man Lymphocytes # (Manual) Eosinophils # (Manual) PT INR APTT POC ABG pH POC ABG pCO2 POC ABG pO2 Sodium Potassium 3.2 L Chloride 111.4 H Carbon Dioxide BUN Creatinine Glucose 113 H POC Glucose 122 H Lactic Acid Calcium 8.1 L Total Bilirubin AST ALT Alkaline Phosphatase Ammonia Total Creatine Kinase CK-MB (CK-2) Troponin T Total Protein Albumin Prealbumin HDL Cholesterol Vitamin B12 TSH Urine pH Urine WBC (Auto) Hep Bs Antibody, Quant Hepatitis C Antibody 02/18/19 02/19/19 02/19/19 18:30 03:51 03:51 WBC 3.4 L RBC 2.95 L Hgb 8.8 L Hct 26.9 L RDW 19.4 H Plt Count 107 L Lymph % (Auto) Caroline % (Auto) 11.7 H Lymph # 0.7 L Seg Neutrophils % Seg Neuts % (Manual) Lymphocytes % (Manual) Monocytes % (Manual) Eosinophils % (Manual) Nucleated RBC % Seg Neutrophils # Man Lymphocytes # (Manual) Eosinophils # (Manual) PT INR APTT POC ABG pH POC ABG pCO2 POC ABG pO2 Sodium Potassium Chloride 110.3 H Carbon Dioxide BUN Creatinine Glucose 106 H POC Glucose 133 H Lactic Acid Calcium 8.0 L Total Bilirubin AST ALT Alkaline Phosphatase 145 H Ammonia Total Creatine Kinase CK-MB (CK-2) Troponin T Total Protein 6.1 L Albumin 1.9 L Prealbumin HDL Cholesterol Vitamin B12 TSH Urine pH Urine WBC (Auto) Hep Bs Antibody, Quant Hepatitis C Antibody 02/19/19 02/19/19 02/20/19 09:15 12:23 06:45 WBC 2.8 L RBC 2.80 L Hgb 8.6 L Hct 25.0 L RDW 19.7 H Plt Count 110 L Lymph % (Auto) Caroline % (Auto) 9.9 H Lymph # 0.4 L Seg Neutrophils % 72.6 H Seg Neuts % (Manual) Lymphocytes % (Manual) Monocytes % (Manual) Eosinophils % (Manual) Nucleated RBC % Seg Neutrophils # Man Lymphocytes # (Manual) Eosinophils # (Manual) PT INR APTT POC ABG pH POC ABG pCO2 POC ABG pO2 Sodium Potassium Chloride Carbon Dioxide BUN Creatinine Glucose POC Glucose 134 H 121 H Lactic Acid Calcium Total Bilirubin AST ALT Alkaline Phosphatase Ammonia Total Creatine Kinase CK-MB (CK-2) Troponin T Total Protein Albumin Prealbumin HDL Cholesterol Vitamin B12 TSH Urine pH Urine WBC (Auto) Hep Bs Antibody, Quant Hepatitis C Antibody 02/20/19 02/20/19 02/21/19 06:45 21:32 07:37 WBC 2.2 L RBC 2.61 L Hgb 8.0 L Hct 23.6 L RDW 19.3 H Plt Count 103 L Lymph % (Auto) Caroline % (Auto) Lymph # Seg Neutrophils % Seg Neuts % (Manual) 88.0 H Lymphocytes % (Manual) 4.0 L Monocytes % (Manual) Eosinophils % (Manual) Nucleated RBC % 4.0 H Seg Neutrophils # Man Lymphocytes # (Manual) 0.1 L Eosinophils # (Manual) PT INR APTT POC ABG pH POC ABG pCO2 POC ABG pO2 Sodium Potassium 3.2 L Chloride 108.4 H Carbon Dioxide BUN 5 L Creatinine Glucose POC Glucose 62 L Lactic Acid Calcium 8.1 L Total Bilirubin AST ALT Alkaline Phosphatase 150 H Ammonia Total Creatine Kinase CK-MB (CK-2) Troponin T Total Protein 6.2 L Albumin 2.0 L Prealbumin HDL Cholesterol Vitamin B12 TSH Urine pH Urine WBC (Auto) Hep Bs Antibody, Quant Hepatitis C Antibody 02/21/19 07:37 WBC RBC Hgb Hct RDW Plt Count Lymph % (Auto) Caroline % (Auto) Lymph # Seg Neutrophils % Seg Neuts % (Manual) Lymphocytes % (Manual) Monocytes % (Manual) Eosinophils % (Manual) Nucleated RBC % Seg Neutrophils # Man Lymphocytes # (Manual) Eosinophils # (Manual) PT INR APTT POC ABG pH POC ABG pCO2 POC ABG pO2 Sodium Potassium 2.9 L* Chloride Carbon Dioxide BUN 3 L Creatinine Glucose 341 H POC Glucose Lactic Acid Calcium 7.8 L Total Bilirubin AST ALT Alkaline Phosphatase 138 H Ammonia Total Creatine Kinase CK-MB (CK-2) Troponin T Total Protein 5.9 L Albumin 1.8 L Prealbumin HDL Cholesterol Vitamin B12 TSH Urine pH Urine WBC (Auto) Hep Bs Antibody, Quant Hepatitis C Antibody Allied health notes reviewed: nursing
--- NOTE | 2019-02-21 18:32 | Progress Note ---
Assessment and Plan - Patient Problems (1) Acute renal failure (ARF) Current Visit: Yes Status: Acute Plan to address problem: this is pre renal azotemia, due to dehydration. resolving (2) Dehydration Current Visit: Yes Status: Acute Plan to address problem: Same as above.continue with some hydration. (3) Hepatic encephalopathy Current Visit: Yes Status: Acute Plan to address problem: Continue with Lactulose, check hep panel. continue with lactulose MO. (4) UTI (urinary tract infection) Current Visit: Yes Status: Acute Plan to address problem: leading into sepsis, will continue IV abx. (5) Sepsis Current Visit: Yes Status: Acute Plan to address problem: Same as above. (6) Pneumonia Current Visit: Yes Status: Acute Plan to address problem: continue with IV ABX. Zithromax added. (7) Leukopenia Current Visit: Yes Status: Acute Plan to address problem: This is due to hep c, will adjust as needed, (8) Thrombocytopenia Current Visit: Yes Status: Acute Plan to address problem: This is due to hep c., will monitor ,and adjust labs. (9) Hep C w/o coma, chronic Current Visit: Yes Status: Acute Plan to address problem: supportive. Subjective Date of service: 02/21/19 Principal diagnosis: Ac hypercapnic hypoxemic resp failure; Ac. metabo encephalopathy; PNA; UTI Interval history: Patient seen/examined, resting in bed, records reviewed.Hep C ab positive, and will explain, ABN LFTs, Rhabdo still in progress, and will continue with hydration. Will check urine alkalization.Continue Lactulose, and monitor labs. Patient seen, resting in bed, NAD, labs reviewed.Will continue current ma nagement. patient seen, resting in bed, labs/records reviewed.K+ low, and replaced. Patient seen, resting in bed, labs reviewed, new ones ordered. Patient seen, resting in bed, labs reviewed, case d/c with family members at the bed side., will follow Gen surg rec to consult GI instead. will repeat labs, and coags before the procedure. Patient seen/examined, resting in bed, labs reviewed, as well as notes. Will check labs, and coags in am, in preparation for peg tube placement. BP was lower earlier, and adjusted.Xrays reviewed, of the hand/wist, consistent with DJD/demineralization. Patient seen, resting in bed, labs reviewed, awaiting GI for the Peg tube placement. Patient seen/examined, resting in bed, now on BIPAP. consultants notes reviewed, and appreciated. Will continue current management, and once stable, will re eval for peg tube candidate. Patient seen/examined, resting in bed, awoke, non distressed, at this time.Labs reviewed, and fair.She still remains on [place] oxygen.deep suctioning on board.Follow pulm, for clearance ,when stable. Continue IV ABX, and pulm toileting. Patient seen/examined, resting in bed, labs reviewed, and new ones ordered. DR WICK WILL COVER ME FOR FRI<,SAT, SUN. once patient recovers, will approach peg tube again. Patient seen today, resting in bed, labs reviewed, case d/w DR HOLLINGSWORTH earlier today,reg lenght of stay. I have reached out to the LTAC for possible transfer for calibration checker continuation of care.Will also discuss possibility of hospice eval, probably a long shot, given family dynamics. Objective - Constitutional Vitals: Vital Signs - 12hr 02/21/19 02/21/19 02/21/19 07:35 07:52 07:54 Temperature 97.7 F Pulse Rate 69 Pulse Rate [ 77 Anterior Bilateral] Pulse Rate [ Apical] Pulse Rate [ Left Radial] Pulse Rate [ Radial] Respiratory 18 Rate Respiratory 18 Rate [Anterior Bilateral] Blood Pressure 122/76 O2 Sat by Pulse 88 96 Oximetry 02/21/19 02/21/19 02/21/19 07:55 08:17 12:00 Temperature Pulse Rate 78 Pulse Rate [ Anterior Bilateral] Pulse Rate [ 69 Apical] Pulse Rate [ 69 Left Radial] Pulse Rate [ 69 Radial] Respiratory 18 Rate Respiratory Rate [Anterior Bilateral] Blood Pressure O2 Sat by Pulse 96 98 Oximetry 02/21/19 02/21/19 14:05 17:00 Temperature Pulse Rate 73 66 Pulse Rate [ Anterior Bilateral] Pulse Rate [ Apical] Pulse Rate [ Left Radial] Pulse Rate [ Radial] Respiratory Rate Respiratory Rate [Anterior Bilateral] Blood Pressure O2 Sat by Pulse Oximetry General appearance: Present: mild distress, cachectic - EENT Eyes: PERRL, EOM intact ENT: hearing intact, clear oral mucosa Ears: bilateral: normal - Neck Neck: supple, normal ROM - Respiratory Respiratory: bilateral: diminished - Breasts Breasts: deferred - Cardiovascular Rhythm: regular Heart Sounds: Present: S1 & S2. Absent: gallop, rub Extremities: pulses intact, No edema, normal color, Full ROM - Gastrointestinal General gastrointestinal: Present: soft, non-tender, non-distended, normal bowel sounds Rectal Exam: deferred - Genitourinary Female genitourinary: deferred - Integumentary Integumentary: clear, warm, dry - Musculoskeletal Musculoskeletal: 1, strength equal bilaterally - Neurologic Neurologic: moves all extremities - Labs CBC & Chem 7: 02/21/19 07:37 02/21/19 07:37 Labs: Abnormal lab results 02/20/19 02/21/19 02/21/19 Range/Units 21:32 07:37 07:37 WBC 2.2 L (4.5-11.0) K/mm3 RBC 2.61 L (3.65-5.03) M/mm3 Hgb 8.0 L (10.1-14.3) gm/dl Hct 23.6 L (30.3-42.9) % RDW 19.3 H (13.2-15.2) % Plt Count 103 L (140-440) K/mm3 Seg Neuts % (Manual) 88.0 H (40.0-70.0) % Lymphocytes % (Manual) 4.0 L (13.4-35.0) % Nucleated RBC % 4.0 H (0.0-0.9) % Lymphocytes # (Manual) 0.1 L (1.2-5.4) K/mm3 Potassium 2.9 L* (3.6-5.0) mmol/L BUN 3 L (7-17) mg/dL Glucose 341 H (65-100) mg/dL POC Glucose 62 L (70-105) Calcium 7.8 L (8.4-10.2) mg/dL Alkaline Phosphatase 138 H (35-129) units/L Total Protein 5.9 L (6.3-8.2) g/dL Albumin 1.8 L (3.9-5) g/dL
[2019-02-21 19:59] LABS: Hematocrit 26.1 % (30.3-42.9); Hemoglobin 8.9 gm/dl (10.1-14.3)
[2019-02-21 20:13] LABS: BUN/Creatinine Ratio 4; Blood Urea Nitrogen 3 mg/dL (7-17); Calcium 7.8 mg/dL (8.4-10.2); Hemolysis Index 6
[2019-02-21] MEDS: AZITHROMYCIN 500 MG in SODIUM CHLORIDE 0.9% 250ML 250 ML IV SCH (22:10)
[2019-02-22] MEDS: DEXTROSE 10% IN WATER 1,000 ML IV SCH (03:53)
[2019-02-22] MEDS: BUDESONIDE 0.5 MG/2 ML NEBU IH SCH (08:58)
[2019-02-22] MEDS: ARFORMOTEROL 15 MCG/2 ML NEBU IH SCH (08:58)
--- NOTE | 2019-02-22 09:35 | XRay Report ---
CHEST 2 VIEWS INDICATION: Follow up on pneumonia. COMPARISON: 02/16/2019 FINDINGS: Support devices: Right IJ venous catheter terminates near the cavoatrial junction. Heart: Within normal limits. Lungs/pleura: Patchy bilateral infiltrates or congestive changes have nearly resolved. A focal airspa ce opacity in the right infrahilar region/right lower lobe remains and appears grossly unchanged. Sma ll right pleural effusion is suspected on the lateral image. No pneumothorax. Additional findings: None. IMPRESSION: Decreased bilateral infiltrates or congestive changes. Right lower lobe focal opacity appears relativ tyra stable. Small right pleural effusion. Signer Name: Seng Varela Jr, MD Signed: 02/22/2019 9:30 AM Workstation Name: [id number]
--- NOTE | 2019-02-22 10:44 | Discharge Summary ---
Providers - Providers Date of Admission: 02/06/19 13:11 Date of discharge: 02/22/19 Attending physician: ENEDINA BENNETT 02/08/19 10:15 Speech Therapy Evaluation and Treat [CONS] Routine Reason For Exam: difficult swallowing 02/11/19 19:11 Consult to Physician [CONS] Routine Comment: Consulting Provider: MELISSA AYALA Physician Instructions: Reason For Exam: resp distress 02/12/19 15:00 Consult to Physician [CONS] Routine Comment: Consulting Provider: MC WILSON Physician Instructions: Reason For Exam: PEG tube placement 02/14/19 12:04 Consult to Dietitian/Nutrition [CONS] Routine Physician Instructions: Reason For Exam: Reason for Consult: Write/Manage Tube Feeding 02/16/19 09:56 Consult to PICC Line RN [CONS] Urgent Reason For Exam: picc line Type Line:: PICC 02/17/19 09:43 Consult to Physician [CONS] Stat Comment: Consulting Provider: NITA YOUNGER Physician Instructions: Reason For Exam: Picc line placement/or central line placement. 02/21/19 10:54 Speech Therapy Evaluation and Treat [CONS] Routine Reason For Exam: swallowing evaluation 02/21/19 18:44 Consult to Case Management [CONS] Routine Services Needed at Discharge: Other Notified:: case checker Comment:: LTAC refferal, for eval,and placement. Additional Physician Instructions: I have already notified [facility]. Primary care physician: ENEDINA BENNETT Hospitalization Reason for admission: AMS/UTI Condition: Stable Pertinent studies: CXR Hospital course: Patient seen/examined, resting in bed, records reviewed, case d/w case checker, and with bridge game director, patient was eating her breakfast, and doing well, as long as some one is helping her. I am asured by the staff , and the bridge game director, that she is getting enough nutrition, again , as long as some one is there to feed her. Exami, is stable, she is answering questions, but still with remenant confusion, not surprising, given her chronic medical condition, and this is not too far from [place] the [facility].Therefore, I do not think,that she needs any feeding tube, and she is not a candidate for LTAC. Putting all these together, I will d/c her back to the [facility] today.I have called the son for update, no answer, and I have left him a message.She had presented to the [facility] ,on the day of admission,with CC as above, admitted for sxs management, and overall tx. She had PNA, also, and was treated with IV ABX, along with the ABX for her ongoing UTI. She was seen by GI, ID, and Pulm consultants, and their rec was followed as needed.I had spoken to the family at various times , in person during this admission period. Disposition: [id number]/[id number] SNF W [facility] CERT - Discharge Diagnoses (1) Acute renal failure (ARF) Status: Resolved (2) Dehydration Status: Resolved (3) Hepatic encephalopathy Status: Chronic (4) UTI (urinary tract infection) Status: Resolved (5) Sepsis Status: Resolved (6) Pneumonia Status: Inactive (7) Leukopenia Status: Inactive (8) Thrombocytopenia Status: Inactive (9) Hep C w/o coma, chronic Status: Chronic Core Measure Documentation - Palliative Care Palliative Care/ Comfort Measures: Not Applicable - Core Measures Any of the following diagnoses?: none Exam - Constitutional Vitals: Temp Pulse Resp BP Pulse Ox 97.7 F 84 18 116/65 99 02/22/19 05:19 02/22/19 09:00 02/22/19 09:00 02/22/19 05:18 02/22/19 08:59 General appearance: Present: no acute distress, other (improving with her eating.) - EENT Eyes: Present: PERRL ENT: hearing intact, clear oral mucosa - Neck Neck: Present: supple, normal ROM - Respiratory Respiratory effort: normal Respiratory: bilateral: CTA - Cardiovascular Heart Sounds: Present: S1 & S2. Absent: rub, click - Extremities Extremities: pulses symmetrical, No edema Peripheral Pulses: within normal limits - Abdominal General gastrointestinal: Present: soft, non-tender, non-distended, normal bowel sounds Female genitourinary: Present: deferred - Rectal Rectal Exam: deferred - Integumentary Integumentary: Present: clear, warm, dry - Musculoskeletal Musculoskeletal: gait normal, strength equal bilaterally - Psychiatric Psychiatric: appropriate mood/affect, intact judgment & insight - Neurologic Neurologic: moves all extremities Plan Activity: up only with assistance, fall precautions Diet: diabetic Durable Medical Equipment Needed Upon Discharge: other (Patient will be on oxygen at the [facility].She will continue her previous meds at the [facility].) Follow up with: ENEDINA BENNETT DO [Primary Care Provider] - 3-5 Days
[2019-02-22] MEDS: INSULIN LISPRO 100 UNIT/ML SUB-Q SCH (11:18)
[2019-02-22] MEDS: cefTRIAXone/NS 1 GM/50 ML 1 GM/50 ML BAG IV SCH (11:28)
[2019-02-22] MEDS: CYPROHEPTADINE 4 MG TAB PO SCH (11:28)
[2019-02-22] MEDS: FLUTICASONE PROPIONATE NASAL SPRAY 16 GM NS SCH (11:29)
[2019-02-22] MEDS: THIAMINE 100 MG TAB PO SCH (11:29)
[2019-02-22] MEDS: FOLIC ACID 1 MG TAB PO SCH (11:29)
[2019-02-22 11:42] VITALS: BP 114/67
--- NOTE | 2019-02-22 11:42 | Progress Note ---
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 Patient has been on antibiotics for UTI and pneumonia. Work up also includes CT head, which showed no acute changes but mild to moderate cerebral atrophy. GI consulted for PEG placement but not stable enough for a PEG tube placement. - Liver Cirrhosis Continue to monitor ammonia level and avoid hepatotoxic agents GI following - Hepatic encephalopabhty Continue to manage Liver cirrhosis and respiratory failure - Oropharyngeal dysphagia/malnutrition For PEG tube placement when clinically stable Will recommend another swallowing study while waiting - Acute hypercapnic respiratory failure continue with bronchodilators and supplemental oxygen as needed to keep O2 sat's > 90% BIPAP scheduled qhs with prn daytime use per Occupational Therapy Technician - Pneumonia CXR showed worsenign apple pul infiltrarte continue with iv antibiotic Blood Cx, no growth so far - Hypokalemia supplement and recheck - Sepsis - resolving PICC line place for iv antibiotic 02/18/19 Continue with iv antibiotic and f/u blood Cx result - UTI (urinary tract infection) On recephin - Acute renal failure (ARF) - resolved PROGNOSIS: GUARDED CODE STATUS: DNR/DNI dispositon: awaiting PEG tube placemtn when pt is clinically stable. Time spent : 30 mins Subjective Date of service: 02/22/19 Principal diagnosis: Ac hypercapnic hypoxemic resp failure; Ac. metabo encephalopathy; PNA; UTI Interval history: Pt seen and examined. Still confused. Had PICC line placed 02/19/19 Objective - Exam Narrative Exam: Constitutional: Confused, Afebrile Head: Normocephalic atraumatic Eyes: Pupils are equal round and reactive to light Nose: No enlarged turbinates, no septal deviation. Mouth: Moist mucous membranes. Neck: Supple no thyromegaly. No bruit. No JVD Heart: Regular rate and rhythm, S1-S2 normal. No rubs murmurs or gallop Lungs: Decreased breath sounds with rhonchi Abdomen: Soft, nontender. Bowel sound are present. Extremities: No edema, no cyanosis, no clubbing. Neuro: Confused. No focal sensory or motor deficit. Skin: No rashes or hyperpigmented spots Musculoskeletal system: No joint pain or swelling Hematological: No petechia or subcutanous hemorrhages. Immunological: No multiple septic spots on the skin Lymphatic: No generalized lymphadenopathy Psychiatry: Confused - Constitutional Vitals: Vital Signs - 12hr 02/21/19 02/21/19 02/22/19 23:52 23:53 05:18 Temperature 97.7 F Pulse Rate 77 70 Pulse Rate [ Anterior Bilateral] Pulse Rate [ Bilateral Throughout] Respiratory 18 18 Rate Respiratory Rate [Anterior Bilateral] Respiratory Rate [Bilateral Throughout] Blood Pressure 110/58 116/65 O2 Sat by Pulse 96 100 Oximetry 02/22/19 02/22/19 02/22/19 05:19 06:05 08:59 Temperature 97.7 F Pulse Rate Pulse Rate [ Anterior Bilateral] Pulse Rate [ Bilateral Throughout] Respiratory Rate Respiratory Rate [Anterior Bilateral] Respiratory Rate [Bilateral Throughout] Blood Pressure O2 Sat by Pulse 96 99 Oximetry 02/22/19 09:00 Temperature Pulse Rate Pulse Rate [ 81 Anterior Bilateral] Pulse Rate [ 84 Bilateral Throughout] Respiratory Rate Respiratory 16 Rate [Anterior Bilateral] Respiratory 18 Rate [Bilateral Throughout] Blood Pressure O2 Sat by Pulse Oximetry - Labs CBC & Chem 7: 02/22/19 13:38 02/21/19 19:36 Labs: Abnormal lab results 02/21/19 02/21/19 02/21/19 Range/Units 07:37 19:36 19:36 Hgb 8.9 L (10.1-14.3) gm/dl Hct 26.1 L (30.3-42.9) % Seg Neuts % (Manual) 88.0 H (40.0-70.0) % Lymphocytes % (Manual) 4.0 L (13.4-35.0) % Nucleated RBC % 4.0 H (0.0-0.9) % Lymphocytes # (Manual) 0.1 L (1.2-5.4) K/mm3 BUN 3 L (7-17) mg/dL Calcium 7.8 L (8.4-10.2) mg/dL
[2019-02-22 14:00] LABS: Basophils % (Auto) 1.1 % (0.0-1.8); Eosinophils # (Auto) 0.1 K/mm3 (0.0-0.4); Eosinophils % (Auto) 1.9 % (0.0-4.3); Hematocrit 24.6 % (30.3-42.9); Hemoglobin 8.4 gm/dl (10.1-14.3); Lymphocytes # (Auto) 0.8 K/mm3 (1.2-5.4); Lymphocytes % (Auto) 23.6 % (13.4-35.0); Mean Corpuscular HGB Conc 34 % (30-34); Mean Corpuscular Volume 90 fl (79-97); Monocytes # (Auto) 0.4 K/mm3 (0.0-0.8); Platelet Count 103 K/mm3 (140-440); Red Blood Count 2.73 M/mm3 (3.65-5.03); Red Cell Distribution Width 19.7 % (13.2-15.2)
== END 2019-02-22 16:10 | DRG 871 ==
LOC: ED 10:54 → 4A 13:11
PROVIDERS: ADMIT Internal Medicine Hematology & Oncology; ATTEND Internal Medicine Hematology & Oncology
PROC: 5A09357 Assistance with Respiratory Ventilation, Less than 24 Consecutive Hours, Continuous Positive Airway Pressure (ICD-10-PCS; 2019-02-14)
PROC: 4A033R1 Measurement of Arterial Saturation, Peripheral, Percutaneous Approach (ICD-10-PCS; 2019-02-15)
PROC: 5A09357 Assistance with Respiratory Ventilation, Less than 24 Consecutive Hours, Continuous Positive Airway Pressure (ICD-10-PCS; 2019-02-15)
PROC: 05HY33Z Insertion of Infusion Device into Upper Vein, Percutaneous Approach (ICD-10-PCS; 2019-02-16)
PROC: 0JH63XZ Insertion of Tunneled Vascular Access Device into Chest Subcutaneous Tissue and Fascia, Percutaneous Approach (ICD-10-PCS; principal; 2019-02-18)
PROC: 02HV33Z Insertion of Infusion Device into Superior Vena Cava, Percutaneous Approach (ICD-10-PCS; 2019-02-18)
PROC: B5181ZA Fluoroscopy of Superior Vena Cava using Low Osmolar Contrast, Guidance (ICD-10-PCS; 2019-02-18)
PROC: B548ZZA Ultrasonography of Superior Vena Cava, Guidance (ICD-10-PCS; 2019-02-18)
DX: A41.9 Sepsis, unspecified organism (principal); J18.9 Pneumonia, unspecified organism; E43 Unspecified severe protein-calorie malnutrition; J96.02 Acute respiratory failure with hypercapnia; N17.9 Acute kidney failure, unspecified; N39.0 Urinary tract infection, site not specified; M62.82 Rhabdomyolysis; E86.0 Dehydration; K72.90 Hepatic failure, unspecified without coma; I10 Essential (primary) hypertension; B18.2 Chronic viral hepatitis C; R13.12 Dysphagia, oropharyngeal phase; Z66 Do not resuscitate; Y90.9 Presence of alcohol in blood, level not specified; E87.5 Hyperkalemia; F10.20 Alcohol dependence, uncomplicated; K74.60 Unspecified cirrhosis of liver; Z79.51 Long term (current) use of inhaled steroids; Z68.23 Body mass index [BMI] 23.0-23.9, adult; Z87.442 Personal history of urinary calculi
CPT/HCPCS: 36415; 36558; 36600; 70450; 71045; 71046; 74018; 76700; 76856; 77001; 80048; 80053; 80061; 81001; 82140; 82550; 82553; 82607; 82747; 82803; 82947; 82962; 83690; 83735; 84134; 84439; 84443; 84484; 85007; 85014; 85018; 85025; 85027; 85610; 85730; 86705; 86706; 86803; 87040; 87086; 87517; 87806; 87902; 93005; 93010; 94640; 94660; 94760; 96361; 96365; 96375; G0378; C1751; J0456; J0696; J1644; J1815; J1940; J1956; J2060; J2250; J3010; J3480; J7030; J7040; J7042; J7050; J7070

== ENCOUNTER 2019-03-10 13:00 | Inpatient (IN) | payer MEDICARE ==
[2019-03-10] MEDS ORDERED: SODIUM CHLORIDE 0.9% 1000 ML 1,000 ML IV ONE (13:13)
--- NOTE | 2019-03-10 13:13 | Emergency Department Report ---
ED Altered Mental Status HPI - General Stated Complaint: AMS Time Seen by Provider: 03/10/19 13:08 Source: EMS Mode of arrival: Stretcher Limitations: Altered Mental Status - History of Present Illness Initial Comments: is a 68-year-old female that lives in a alf that presents emergency room for altered mental status. Patient came to the ER with unknown amount of time of altered mental status. Patient is minimally responsive at baseline. Patient has multiple medical problems report she received from alf. 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 MD Complaint: altered mental status, decreased responsiveness -: Sudden Severity: Unable to Determine Consistency of Symptoms: constant - Related Data Home Medications Medication Instructions Recorded Confirmed Last Taken ALBUTEROL NEB's [Proventil] 2.5 mg IH TID PRN 02/06/19 02/06/19 Unknown Acetaminophen [Tylenol] 650 mg PO Q6HR PRN 02/06/19 02/06/19 Unknown Fluticasone [Flonase] 1 spray NS QDAY 02/06/19 02/06/19 Unknown Ipratropium/Albuterol Sulfate 1 spray IH QID 02/06/19 02/06/19 Unknown [Combivent Respimat] Melatonin [Melatonin 10MG CAP] 10 mg PO QHS 02/06/19 02/06/19 Unknown Previous Rx's Medication Instructions Recorded Last Taken Type Folic Acid [Folvite] 1 mg PO QDAY #30 tablet 08/12/18 Unknown Rx Haloperidol [Haldol] 0.5 mg PO Q6H PRN #30 tablet 08/12/18 Unknown Rx Lactulose [Cephulac] 20 gm PO Q12H #1 bottle 08/12/18 Unknown Rx Rifaximin [Xifaxan] 550 mg PO BID #60 tablet 08/12/18 Unknown Rx Thiamine [Vitamin B-1] 100 mg PO QDAY #30 tablet 08/12/18 Unknown Rx amLODIPine 5 mg PO QDAY #30 tablet 08/12/18 Unknown Rx chlordiazePOXIDE [Librium] 25 mg PO DAILY #3 capsule 08/12/18 Unknown Rx Allergies Allergy/AdvReac Type Severity Reaction Status Date / Time No Known Allergies Allergy Verified 01/06/17 23:38 ED Review of Systems ROS: Stated complaint: AMS Other details as noted in HPI Comment: Unobtainable due to pts medical conditions ED Past Medical Hx - Past Medical History Previous Medical History?: Yes Hx Hypertension: Yes Hx Congestive Heart Failure: No Hx Diabetes: Yes Hx Deep Vein Thrombosis: No Hx Renal Disease: Yes Hx Seizures: Yes Hx Kidney Stones: Yes Hx Asthma: Yes Hx COPD: Yes Hx Dementia: Yes Hx HIV: No Additional medical history: alcoholism. Hep C. Thyroidism. anemia. . - Surgical History Past Surgical History?: No Hx Pacemaker: No Hx Internal Defibrillator: No - Family History Family history: no significant - Social History Smoking Status: Former Smoker - Medications Home Medications: Home Medications Medication Instructions Recorded Confirmed Last Taken Type Folic Acid [Folvite] 1 mg PO QDAY #30 tablet 08/12/18 02/06/19 Unknown Rx Haloperidol [Haldol] 0.5 mg PO Q6H PRN #30 tablet 08/12/18 02/06/19 Unknown Rx Lactulose [Cephulac] 20 gm PO Q12H #1 bottle 08/12/18 02/06/19 Unknown Rx Rifaximin [Xifaxan] 550 mg PO BID #60 tablet 08/12/18 02/06/19 Unknown Rx Thiamine [Vitamin B-1] 100 mg PO QDAY #30 tablet 08/12/18 02/06/19 Unknown Rx amLODIPine 5 mg PO QDAY #30 tablet 08/12/18 02/06/19 Unknown Rx chlordiazePOXIDE [Librium] 25 mg PO DAILY #3 capsule 08/12/18 02/06/19 Unknown Rx ALBUTEROL NEB's [Proventil] 2.5 mg IH TID PRN 02/06/19 02/06/19 Unknown History Acetaminophen [Tylenol] 650 mg PO Q6HR PRN 02/06/19 02/06/19 Unknown History Fluticasone [Flonase] 1 spray NS QDAY 02/06/19 02/06/19 Unknown History Ipratropium/Albuterol Sulfate 1 spray IH QID 02/06/19 02/06/19 Unknown History [Combivent Respimat] Melatonin [Melatonin 10MG CAP] 10 mg PO QHS 02/06/19 02/06/19 Unknown History ED Physical Exam - General Limitations: Altered Mental Status, Physical Limitation General appearance: in no apparent distress - Head Head exam: Present: atraumatic, normocephalic - Eye Eye exam: Present: normal appearance, PERRL Pupils: Present: normal accommodation - ENT ENT exam: Present: mucous membranes dry - Neck Neck exam: Present: normal inspection - Respiratory Respiratory exam: Present: normal lung sounds bilaterally, decreased breath sounds. Absent: respiratory distress, wheezes - Cardiovascular Cardiovascular Exam: Present: regular rate, normal rhythm - GI/Abdominal GI/Abdominal exam: Present: soft, normal bowel sounds - Rectal Rectal exam: Present: deferred - Extremities Exam Extremities exam: Present: normal inspection - Neurological Exam Neurological exam: Present: altered - Skin Skin exam: Present: warm, dry, intact, normal color. Absent: rash - Assessment Assessment Interval: Baseline - Level of Consciousness 1a. Level of Consciousness: coma/unresponsive - LOC Questions 1b. LOC Questions: aphasic - LOC Command 1c. LOC Commands: performs no tasks correctly - Best Gaze 2. Best Gaze: normal - Visual 3. Visual: no visual loss - Facial Palsy 4. Facial Palsy: normal symmetrical movement - Motor Arm 5a. Motor Arm Left: no gravity effort 5b. Motor Arm Right: no gravity effort - Motor Leg 6a. Motor Leg Left: no gravity effort 6b. Motor Leg Right: no gravity effort - Limb Ataxia 7. Limb Ataxia: absent - Sensory 8. Sensory: normal - Best Language 9. Best Language: mute/global aphasia - Dysarthria 10. Dysarthria: mute/anarrthric - Extinction and Inattention 11. Extinction/Inattention: no abnormality - Scoring Total Score: 24 Stroke Severity: Severe Stroke ED Course Vital Signs 03/10/19 13:09 Temperature 98.0 F Pulse Rate 57 L Respiratory 18 Rate Blood Pressure 135/68 O2 Sat by Pulse 100 Oximetry - Consultations Consultation #1: Hospitalist consult for admission. Hospitalist admit patient. 03/10/19 14:13 - Lab Data Result diagrams: 03/10/19 13:16 03/10/19 13:16 Lab Results 03/10/19 03/10/19 03/10/19 Range/Units 13:16 13:16 13:16 WBC 0.8 L* (4.5-11.0) K/mm3 RBC 3.35 L (3.65-5.03) M/mm3 Hgb 10.1 (10.1-14.3) gm/dl Hct 31.9 (30.3-42.9) % MCV 95 (79-97) fl MCH 30 (28-32) pg MCHC 32 (30-34) % RDW 22.1 H (13.2-15.2) % Plt Count 78 L (140-440) K/mm3 Sodium 147 H (137-145) mmol/L Potassium 5.4 H (3.6-5.0) mmol/L Chloride 111.8 H (98-107) mmol/L Carbon Dioxide 26 (22-30) mmol/L Anion Gap 15 mmol/L BUN 14 (7-17) mg/dL Creatinine 0.6 L (0.7-1.2) mg/dL Estimated GFR > 60 ml/min BUN/Creatinine Ratio 23 % Glucose 73 (65-100) mg/dL Lactic Acid 0.90 (0.7-2.0) mmol/L Calcium 9.4 (8.4-10.2) mg/dL Total Bilirubin 0.40 (0.1-1.2) mg/dL AST 128 H (5-40) units/L ALT 79 H (7-56) units/L Alkaline Phosphatase 174 H (35-129) units/L Total Creatine Kinase 86 (30-135) units/L Troponin T 0.017 (0.00-0.029) ng/mL Total Protein 7.2 (6.3-8.2) g/dL Albumin 2.4 L (3.9-5) g/dL Albumin/Globulin Ratio 0.5 % Urine Color (Yellow) Urine Turbidity (Clear) Urine pH (5.0-7.0) Ur Specific [place] (1.003-1.030) Urine Protein (Negative) mg/dL Urine Glucose (UA) (Negative) mg/dL Urine Ketones (Negative) mg/dL Urine Blood (Negative) Urine Nitrite (Negative) Urine Bilirubin (Negative) Urine Urobilinogen (<2.0) mg/dL Ur Leukocyte Esterase (Negative) Urine WBC (Auto) (0.0-6.0) /HPF Urine RBC (Auto) (0.0-6.0) /HPF U Epithel Cells (Auto) (0-13.0) /HPF Urine Bacteria (Auto) (Negative) /HPF Urine Mucus /HPF 03/10/19 Range/Units 14:38 WBC (4.5-11.0) K/mm3 RBC (3.65-5.03) M/mm3 Hgb (10.1-14.3) gm/dl Hct (30.3-42.9) % MCV (79-97) fl MCH (28-32) pg MCHC (30-34) % RDW (13.2-15.2) % Plt Count (140-440) K/mm3 Sodium (137-145) mmol/L Potassium (3.6-5.0) mmol/L Chloride (98-107) mmol/L Carbon Dioxide (22-30) mmol/L Anion Gap mmol/L BUN (7-17) mg/dL Creatinine (0.7-1.2) mg/dL Estimated GFR ml/min BUN/Creatinine Ratio % Glucose (65-100) mg/dL Lactic Acid (0.7-2.0) mmol/L Calcium (8.4-10.2) mg/dL Total Bilirubin (0.1-1.2) mg/dL AST (5-40) units/L ALT (7-56) units/L Alkaline Phosphatase (35-129) units/L Total Creatine Kinase (30-135) units/L Troponin T (0.00-0.029) ng/mL Total Protein (6.3-8.2) g/dL Albumin (3.9-5) g/dL Albumin/Globulin Ratio % Urine Color Straw (Yellow) Urine Turbidity Clear (Clear) Urine pH 7.0 (5.0-7.0) Ur Specific [place] 1.009 (1.003-1.030) Urine Protein <15 mg/dl (Negative) mg/dL Urine Glucose (UA) Neg (Negative) mg/dL Urine Ketones Neg (Negative) mg/dL Urine Blood Neg (Negative) Urine Nitrite Neg (Negative) Urine Bilirubin Neg (Negative) Urine Urobilinogen < 2.0 (<2.0) mg/dL Ur Leukocyte Esterase Sm (Negative) Urine WBC (Auto) 9.0 H (0.0-6.0) /HPF Urine RBC (Auto) 2.0 (0.0-6.0) /HPF U Epithel Cells (Auto) 1.0 (0-13.0) /HPF Urine Bacteria (Auto) 2+ (Negative) /HPF Urine Mucus Few /HPF - EKG Data -: EKG Interpreted by [facility] EKG shows normal: intervals, QRS complexes, ST-T waves Rate: normal Interpretation: other (A. fib. [place] deviation.) - Radiology Data Radiology results: report reviewed, image reviewed interpreted by me: No acute findings on cxr. CT head/brain wo con INDICATION: Altered Mental Status. TECHNIQUE: Routine CT head without contrast. All CT scans at this location are performed using CT dose reduction for ALARA by means of automated exposure control. COMPARISON: Head CT on 02/06/2019. FINDINGS: BRAIN / INTRACRANIAL CONTENTS: No acute hemorrhage, mass effect, midline shift, or hydrocephalus. No appreciable acute large territorial or lacunar infarct. No chronic infarct. Age-commensurate ventricular and cisternal/sulcal prominence. Atherosclerotic calcifications again seen in the intracranial internal carotid arteries. There is an unchanged tiny presumed calcified meningioma measuring 9 mm along the inner table of the left squamosal temporal bone. ORBITS: No significant abnormality of visualized orbits. SINUSES / MASTOIDS: No significant abnormality of visualized sinuses and mastoid air cells. ADDITIONAL FINDINGS: None. IMPRESSION: 1. No acute intracranial abnormality. No adverse change from the prior exam. - Medical Decision Making Patient is a 68-year-old female that presents emergency room for altered mental status. Patient found to have multiple abnormalities on laboratories. Patient's head CT negative for acute findings. Patient's chest x-ray negative for acute findings. Patient admitted to the hospital service. Patient given fluids and antibiotics due to laboratory findings. Patient had a Andersen placed. - Differential Diagnosis UTI. Altered mental status. Critical Care Time: Yes Critical care time in (mins) excluding proc time.: 35 Critical care attestation.: If time is entered above; I have spent that time in minutes in the direct care of this critically ill patient, excluding procedure time. Critical Care Time: 35 minutes ED Disposition Clinical Impression: Hypernatremia, Encephalopathy, Hyperkalemia, Abnormal complete blood count, Thrombocytopenia, Dehydration Altered mental state Qualifiers: Altered mental status type: unspecified Qualified Code(s): R41.82 - Altered mental status, unspecified Leukopenia Qualifiers: Leukopenia type: unspecified Qualified Code(s): D72.819 - Decreased white blood cell count, unspecified UTI (urinary tract infection) Qualifiers: Urinary tract infection type: acute cystitis Hematuria presence: with hematuria Qualified Code(s): N30.01 - Acute cystitis with hematuria Disposition: DC-09 OP ADMIT IP TO THIS HOSP Is pt being admited?: Yes Does the pt Need Aspirin: No Condition: Critical Time of Disposition: 14:31
[2019-03-10 13:37] LABS: Hematocrit 31.9 % (30.3-42.9); Hemoglobin 10.1 gm/dl (10.1-14.3); Mean Corpuscular HGB Conc 32 % (30-34); Mean Corpuscular Volume 95 fl (79-97); Red Blood Count 3.35 M/mm3 (3.65-5.03)
--- NOTE | 2019-03-10 13:48 | XRay Report ---
CHEST 1 VIEW INDICATION: Altered Mental Status. COMPARISON: 02/22/2019 FINDINGS: SUPPORT DEVICES: None. HEART / MEDIASTINUM: No significant abnormality. LUNGS / PLEURA: Diffuse interstitial pulmonary process again noted with patchy parenchymal changes lo wer lobes No pneumothorax. ADDITIONAL FINDINGS: IMPRESSION: 1. No significant change as compared to previous exam Signer Name: Slade Woodson MD Signed: 03/10/2019 1:43 PM Workstation Name: [id number]
[2019-03-10 13:50] LABS: Platelet Count 78 K/mm3 (140-440); Red Cell Distribution Width 22.1 % (13.2-15.2)
[2019-03-10] MEDS ORDERED: SODIUM CHLORIDE 0.9% 1000 ML IV SOLN IV ONE (13:59)
[2019-03-10] MEDS ORDERED: CEFEPIME/NS 2 GM/100 ML 2 GM/100 ML BAG IV ONE (14:00)
[2019-03-10 14:04] LABS: Alanine Aminotransferase 79 units/L (7-56); Albumin 2.4 g/dL (3.9-5); BUN/Creatinine Ratio 23; Blood Urea Nitrogen 14 mg/dL (7-17); Calcium 9.4 mg/dL (8.4-10.2); Hemolysis Index 43
[2019-03-10] MEDS ORDERED: CALCIUM CHLORIDE 1,000 MG/10 ML SDV IVP ONE (14:07)
[2019-03-10] MEDS ORDERED: DEXTROSE 50% IN WATER (25GM) 50 ML VIAL IV PRN (14:07)
[2019-03-10] MEDS ORDERED: INSULIN REGULAR, HUMAN 100 UNITS/1 ML IV ONE (14:07)
--- NOTE | 2019-03-10 14:15 | Cat Scan Report ---
CT head/brain wo con INDICATION: Altered Mental Status. TECHNIQUE: Routine CT head without contrast. All CT scans at this location are performed using CT dos e reduction for ALARA by means of automated exposure control. COMPARISON: Head CT on 02/06/2019. FINDINGS: BRAIN / INTRACRANIAL CONTENTS: No acute hemorrhage, mass effect, midline shift, or hydrocephalus. No appreciable acute large territorial or lacunar infarct. No chronic infarct. Age-commensurate ventricu lar and cisternal/sulcal prominence. Atherosclerotic calcifications again seen in the intracranial in ternal carotid arteries. There is an unchanged tiny presumed calcified meningioma measuring 9 mm abrahan g the inner table of the left squamosal temporal bone. ORBITS: No significant abnormality of visualized orbits. SINUSES / MASTOIDS: No significant abnormality of visualized sinuses and mastoid air cells. ADDITIONAL FINDINGS: None. IMPRESSION: 1. No acute intracranial abnormality. No adverse change from the prior exam. Signer Name: Slade Pantoja MD Signed: 03/10/2019 2:11 PM Workstation Name: [id number]
[2019-03-10] MEDS ORDERED: CALCIUM CHLORIDE 1,000 MG in SODIUM CHLORIDE 0.9% 100 ML IV ONE (15:00)
[2019-03-10 15:12] LABS: Bacteria,Urine 2+ /HPF (Negative); Bilirubin,Urine NEG (Negative); Blood,Urine NEG (Negative); Color,Urine Straw (Yellow); Mucus,Urine FEW /HPF; Protein,Urine <15 mg/dL mg/dL (Negative); Urobilinogen,Urine < 2.0 mg/dL (<2.0)
[2019-03-10] MEDS ORDERED: ONDANSETRON 4 MG/2 ML INJ IV PRN (17:46)
[2019-03-10] MEDS ORDERED: ACETAMINOPHEN 325 MG TAB PO PRN (17:46)
--- NOTE | 2019-03-10 17:46 | History and Physical Report ---
History of Present Illness Date of examination: 03/10/19 Medications and Allergies Allergies Allergy/AdvReac Type Severity Reaction Status Date / Time No Known Allergies Allergy Verified 01/06/17 23:38 Home Medications Medication Instructions Recorded Confirmed Last Taken Type Folic Acid [Folvite] 1 mg PO QDAY #30 tablet 08/12/18 02/06/19 Unknown Rx Haloperidol [Haldol] 0.5 mg PO Q6H PRN #30 tablet 08/12/18 02/06/19 Unknown Rx Lactulose [Cephulac] 20 gm PO Q12H #1 bottle 08/12/18 02/06/19 Unknown Rx Rifaximin [Xifaxan] 550 mg PO BID #60 tablet 08/12/18 02/06/19 Unknown Rx Thiamine [Vitamin B-1] 100 mg PO QDAY #30 tablet 08/12/18 02/06/19 Unknown Rx amLODIPine 5 mg PO QDAY #30 tablet 08/12/18 02/06/19 Unknown Rx chlordiazePOXIDE [Librium] 25 mg PO DAILY #3 capsule 08/12/18 02/06/19 Unknown Rx ALBUTEROL NEB's [Proventil] 2.5 mg IH TID PRN 02/06/19 02/06/19 Unknown History Acetaminophen [Tylenol] 650 mg PO Q6HR PRN 02/06/19 02/06/19 Unknown History Fluticasone [Flonase] 1 spray NS QDAY 02/06/19 02/06/19 Unknown History Ipratropium/Albuterol Sulfate 1 spray IH QID 02/06/19 02/06/19 Unknown History [Combivent Respimat] Melatonin [Melatonin 10MG CAP] 10 mg PO QHS 02/06/19 02/06/19 Unknown History Exam - Constitutional Vitals: Temp Pulse Resp BP Pulse Ox 98.0 F 66 18 133/68 99 03/10/19 14:10 03/10/19 16:41 03/10/19 16:41 03/10/19 16:41 03/10/19 16:41 Results - Labs CBC & Chem 7: 03/10/19 13:16 03/10/19 13:16 Labs: Laboratory Last Values WBC 0.8 K/mm3 (4.5-11.0) L* 03/10/19 13:16 RBC 3.35 M/mm3 (3.65-5.03) L 03/10/19 13:16 Hgb 10.1 gm/dl (10.1-14.3) 03/10/19 13:16 Hct 31.9 % (30.3-42.9) 03/10/19 13:16 MCV 95 fl (79-97) 03/10/19 13:16 MCH 30 pg (28-32) 03/10/19 13:16 MCHC 32 % (30-34) 03/10/19 13:16 RDW 22.1 % (13.2-15.2) H 03/10/19 13:16 Plt Count 78 K/mm3 (140-440) L 03/10/19 13:16 Sodium 147 mmol/L (137-145) H 03/10/19 13:16 Potassium 5.4 mmol/L (3.6-5.0) H 03/10/19 13:16 Chloride 111.8 mmol/L (98-107) H 03/10/19 13:16 Carbon Dioxide 26 mmol/L (22-30) 03/10/19 13:16 Anion Gap 15 mmol/L 03/10/19 13:16 BUN 14 mg/dL (7-17) 03/10/19 13:16 Creatinine 0.6 mg/dL (0.7-1.2) L 03/10/19 13:16 Estimated GFR > 60 ml/min 03/10/19 13:16 BUN/Creatinine Ratio 23 % 03/10/19 13:16 Glucose 73 mg/dL (65-100) 03/10/19 13:16 Lactic Acid 0.80 mmol/L (0.7-2.0) 03/10/19 16:52 Calcium 9.4 mg/dL (8.4-10.2) 03/10/19 13:16 Total Bilirubin 0.40 mg/dL (0.1-1.2) 03/10/19 13:16 AST 128 units/L (5-40) H 03/10/19 13:16 ALT 79 units/L (7-56) H 03/10/19 13:16 Alkaline Phosphatase 174 units/L (35-129) H 03/10/19 13:16 Total Creatine Kinase 86 units/L (30-135) 03/10/19 13:16 Troponin T 0.017 ng/mL (0.00-0.029) 03/10/19 13:16 Total Protein 7.2 g/dL (6.3-8.2) 03/10/19 13:16 Albumin 2.4 g/dL (3.9-5) L 03/10/19 13:16 Albumin/Globulin Ratio 0.5 % 03/10/19 13:16 Urine Color Straw (Yellow) 03/10/19 14:38 Urine Turbidity Clear (Clear) 03/10/19 14:38 Urine pH 7.0 (5.0-7.0) 03/10/19 14:38 Ur Specific [place] 1.009 (1.003-1.030) 03/10/19 14:38 Urine Protein <15 mg/dl mg/dL (Negative) 03/10/19 14:38 Urine Glucose (UA) Neg mg/dL (Negative) 03/10/19 14:38 Urine Ketones Neg mg/dL (Negative) 03/10/19 14:38 Urine Blood Neg (Negative) 03/10/19 14:38 Urine Nitrite Neg (Negative) 03/10/19 14:38 Urine Bilirubin Neg (Negative) 03/10/19 14:38 Urine Urobilinogen < 2.0 mg/dL (<2.0) 03/10/19 14:38 Ur Leukocyte Esterase Sm (Negative) 03/10/19 14:38 Urine WBC (Auto) 9.0 /HPF (0.0-6.0) H 03/10/19 14:38 Urine RBC (Auto) 2.0 /HPF (0.0-6.0) 03/10/19 14:38 U Epithel Cells (Auto) 1.0 /HPF (0-13.0) 03/10/19 14:38 Urine Bacteria (Auto) 2+ /HPF (Negative) 03/10/19 14:38 Urine Mucus Few /HPF 03/10/19 14:38
[2019-03-10] MEDS ORDERED: SODIUM CHLORIDE 0.9% 1000 ML 1,000 ML IV SCH (18:00)
[2019-03-10] MEDS ORDERED: VANCOMYCIN PHARMACY TO DOSE IV SCH (18:00)
[2019-03-10 18:36] LABS: Total Cells Counted 100
[2019-03-10 18:37] LABS: Anisocytosis 1+; Basophils % (Manual) 0 % (0.0-1.8); Hypochromasia 1+
[2019-03-10 18:38] LABS: Ovalocytes Few; Platelet Estimate Appears Decreased; Target Cells Few
[2019-03-10] MEDS ORDERED: VANCOMYCIN 1,500 MG in SODIUM CHLORIDE 0.9% 500 ML 500 ML IV ONE (19:30)
[2019-03-10] MEDS: CEFEPIME/NS 1 GM/100 ML 1 GM/100 ML BAG IV SCH (22:28)
[2019-03-10] MEDS: DEXTROSE 50% IN WATER (25GM) 50 ML SYRINGE IV PRN (22:52)
[2019-03-11] MEDS: INSULIN LISPRO 100 UNIT/ML SUB-Q SCH ×4 (00:07→18:20)
[2019-03-11] MEDS ORDERED: LIDOCAINE VISCOUS 2% 15 ML ORAL LIQD ONE (03:00)
[2019-03-11] MEDS ORDERED: ALBUTEROL 2.5 MG/3 ML NEBU IH PRN (03:52)
[2019-03-11] MEDS ORDERED: HALOPERIDOL 1 MG TAB PO PRN (03:52)
--- NOTE | 2019-03-11 04:14 | History and Physical Report ---
CHIEF COMPLAINT: Altered sensorium. HISTORY OF PRESENT ILLNESS: A 68-year-old female with multiple medical problems including hepatic failure, hypertension, sent from shelter for altered mental status. The patient is minimally responsive. 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 No fever or chills. PAST MEDICAL HISTORY: As mentioned, hypertension, hepatitis C, hepatic failure, anemia, renal stones, COPD. PAST SURGICAL HISTORY: None. FAMILY HISTORY: Hypertension. SOCIAL HISTORY: Former smoker and alcohol dependence. CURRENT MEDICATIONS: On the chart. REVIEW OF SYSTEMS: Significant for decreased responsiveness and confusion. PHYSICAL EXAMINATION: GENERAL: Elderly female, confused and lethargic. VITAL SIGNS: Temperature is 97.5, pulse is 49, respirations are 18, sats are 99%, blood pressure 122/74. HEENT: Unremarkable. Pupils equal and reactive. NECK: Supple, no lymphadenopathy, no thyromegaly. LUNGS: Clear to auscultation and percussion. Good air entry. CARDIOVASCULAR: S1, S2 heard. No gallop, no murmur, no rub. Apical impulse in left fifth intercostal space and midclavicular line. ABDOMEN: Soft and benign. No hepatosplenomegaly. No guarding, no rigidity. Hernial orifices are normal. EXTREMITIES: Good pedal pulses. No pedal edema. CENTRAL NERVOUS SYSTEM: Alert and oriented x 4. Lethargic, confused. Decreased responsiveness. LABORATORY DATA: White count is 0.8%. H and H is 10.1 and 31.19. Platelet count is 78,000. Sodium is 147, potassium is 5.4, chloride is 111.8, creatinine is 0.6, AST is 128, ALT is 79, alkaline phosphatase is 174. Albumin is 2.4. Urine WBC is 9.0. DIAGNOSTIC DATA: Head CT, no acute findings. Electrocardiogram shows atrial fibrillation, right bundle branch block and left anterior fascicular block. Chest x-ray, no acute findings. ASSESSMENT AND PLAN: 1. Acute encephalopathy sec to sepsis. Ammonia level normal. Lactulose initiated. 2. Hyperkalemia, treated in the Emergency Room. 3. Hypertension. Continue antihypertensives. 4. Chronic obstructive pulmonary disease. Continue Combivent and DuoNeb nebulizer treatments. 5. Transaminitis secondary to hepatitis C. 6. Urinary tract infection, IV Rocephin for now. 7. Hypernatremia. IV D5W for now. 8. Pancytopenia. Hematology consult requested. Reverse isolation initiated. The patient was initiated on empiric antibiotics. We will get ID consult and Hematology consult. 9. Deep venous thrombosis prophylaxis. No Lovenox or heparin. Only SCDs. In summary, the patient has acute encephalopathy, possible hyperammonemia, pancytopenia, urinary tract infection, transaminitis secondary to hepatitis C, hypernatremia, hyperkalemia. JOB# [id number] DENIS/LICO REBOLLEDO
[2019-03-11] MEDS: LACTULOSE 20 GM/30 ML ORAL LIQD PO SCH ×2 (04:56→17:04)
[2019-03-11] MEDS: DEXTROSE 5% IN WATER 1,000 ML IV SCH ×2 (04:57→17:50)
[2019-03-11] MEDS: MORPHINE 2 MG/1 ML INJ IV PRN (05:04)
[2019-03-11] MEDS: CEFEPIME/NS 1 GM/100 ML 1 GM/100 ML BAG IV SCH ×3 (05:05→21:43)
[2019-03-11] MEDS: VANCOMYCIN/NS 1 GM/250 ML 1 GM/250 ML BAG IV SCH ×2 (06:03→18:22)
[2019-03-11] MEDS: IPRATROPIUM/ALBUTEROL SULFATE 3 ML AMPUL.NEB IH SCH ×3 (08:17→21:06)
[2019-03-11 08:25] LABS: Alanine Aminotransferase 65 units/L (7-56); Albumin 1.8 g/dL (3.9-5); BUN/Creatinine Ratio 22; Blood Urea Nitrogen 13 mg/dL (7-17); Calcium 8.8 mg/dL (8.4-10.2); Hemolysis Index 31
[2019-03-11] MEDS: FLUTICASONE PROPIONATE NASAL SPRAY 16 GM NS SCH (09:48)
[2019-03-11] MEDS: amLODIPine 5 MG TAB PO SCH (09:56)
[2019-03-11] MEDS: FOLIC ACID 1 MG TAB PO SCH (09:56)
[2019-03-11] MEDS: THIAMINE 100 MG TAB PO SCH (09:56)
[2019-03-11] MEDS: chlordiazePOXIDE 25 MG CAP PO SCH (09:56)
[2019-03-11] MEDS: RIFAXIMIN 550 MG TAB PO SCH ×2 (09:57→21:44)
[2019-03-11] MEDS ORDERED: IPRATROPIUM IH SCH (10:00)
[2019-03-11] MEDS ORDERED: ALBUTEROL SULFATE IH SCH (10:00)
--- NOTE | 2019-03-11 11:40 | Event Note ---
Date: 03/10/19 See H/p in reports Pancytopenia Sepsis
--- NOTE | 2019-03-11 14:30 | Progress Note ---
Assessment and Plan Assessment and plan: 68-year-old female with multiple medical problems including hep C, hypertension sent from jail for altered mental status. Patient was minimally responsive and doesn't answer questions. Patient has liver failure secondary to hepatitis C and alcoholism. Metabolic encephalopathy - Hepatic encephalopathic is possible and patient is on lactulose despite normal level of ammonia, rifaximine - Continue to monitor Pancytopenia - WBC count is 0.8 and platelet count is 71 - Hematology and oncology consulted - Patient is covered with IV antibiotics Hypertension - continue home medications Hypernatremia - D5W Hyperkalemia - kayexalate DVT prophylaxis - On SCDs History Interval history: Patient was seen and evaluated at the bedside, patient was confused and doesn't answer any of my questions. Patient presented from jail. Patient is a patient of Dr. Carter, I called him and he wants the hospitalist group to manage the patient. Hospitalist Physical - Physical exam Narrative exam: Not in cardiopulmonary distress. The patient appeared well nourished and normally developed. Vital signs as documented. Head exam is unremarkable. No scleral icterus . Neck is without jugular venous distension, thyromegaly, or carotid bruits. Lungs are clear to auscultation. Cardiac exam reveals regular rate and Rhythm. First and second heart sounds normal. No murmurs, rubs or gallops. Abdominal exam reveals normal bowel sounds, no masses, no organomegaly and no aortic enlargement. Extremities are nonedematous and both femoral and pedal pulses are normal. 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 No focal weakness. - Constitutional Vitals: Temp Pulse Resp BP Pulse Ox 97.1 F L 72 18 127/61 99 03/11/19 08:01 03/11/19 14:00 03/11/19 14:00 03/11/19 14:00 03/11/19 08:02 Results - Labs CBC & Chem 7: 03/10/19 13:16 03/11/19 07:29 Labs: Laboratory Last Values WBC 0.8 K/mm3 (4.5-11.0) L* 03/10/19 13:16 RBC 3.35 M/mm3 (3.65-5.03) L 03/10/19 13:16 Hgb 10.1 gm/dl (10.1-14.3) 03/10/19 13:16 Hct 31.9 % (30.3-42.9) 03/10/19 13:16 MCV 95 fl (79-97) 03/10/19 13:16 MCH 30 pg (28-32) 03/10/19 13:16 MCHC 32 % (30-34) 03/10/19 13:16 RDW 22.1 % (13.2-15.2) H 03/10/19 13:16 Plt Count 78 K/mm3 (140-440) L 03/10/19 13:16 Add Manual Diff Complete 03/10/19 13:16 Total Counted 100 03/10/19 13:16 Seg Neuts % (Manual) 42.0 % (40.0-70.0) 03/10/19 13:16 Band Neutrophils % 0 % 03/10/19 13:16 Lymphocytes % (Manual) 49.0 % (13.4-35.0) H 03/10/19 13:16 Reactive Lymphs % (Man) 0 % 03/10/19 13:16 Monocytes % (Manual) 6.0 % (0.0-7.3) 03/10/19 13:16 Eosinophils % (Manual) 3.0 % (0.0-4.3) 03/10/19 13:16 Basophils % (Manual) 0 % (0.0-1.8) 03/10/19 13:16 Metamyelocytes % 0 % 03/10/19 13:16 Myelocytes % 0 % 03/10/19 13:16 Promyelocytes % 0 % 03/10/19 13:16 Blast Cells % 0 % 03/10/19 13:16 Nucleated RBC % Not Reportable 03/10/19 13:16 Seg Neutrophils # Man 0.3 K/mm3 (1.8-7.7) L 03/10/19 13:16 Band Neutrophils # 0.0 K/mm3 03/10/19 13:16 Lymphocytes # (Manual) 0.4 K/mm3 (1.2-5.4) L 03/10/19 13:16 Abs React Lymphs (Man) 0.0 K/mm3 03/10/19 13:16 Monocytes # (Manual) 0.0 K/mm3 (0.0-0.8) 03/10/19 13:16 Eosinophils # (Manual) 0.0 K/mm3 (0.0-0.4) 03/10/19 13:16 Basophils # (Manual) 0.0 K/mm3 (0.0-0.1) 03/10/19 13:16 Metamyelocytes # 0.0 K/mm3 03/10/19 13:16 Myelocytes # 0.0 K/mm3 03/10/19 13:16 Promyelocytes # 0.0 K/mm3 03/10/19 13:16 Blast Cells # 0.0 K/mm3 03/10/19 13:16 WBC Morphology Not Reportable 03/10/19 13:16 Hypersegmented Neuts Not Reportable 03/10/19 13:16 Hyposegmented Neuts Not Reportable 03/10/19 13:16 Hypogranular Neuts Not Reportable 03/10/19 13:16 Smudge Cells Not Reportable 03/10/19 13:16 Toxic Granulation Not Reportable 03/10/19 13:16 Toxic Vacuolation Not Reportable 03/10/19 13:16 Dohle Bodies Not Reportable 03/10/19 13:16 Pelger-Huet Anomaly Not Reportable 03/10/19 13:16 Sheila Rods Not Reportable 03/10/19 13:16 Platelet Estimate Appears decreased 03/10/19 13:16 Clumped Platelets Not Reportable 03/10/19 13:16 Plt Clumps, EDTA Not Reportable 03/10/19 13:16 Large Platelets Not Reportable 03/10/19 13:16 Giant Platelets Not Reportable 03/10/19 13:16 Platelet Satelliting Not Reportable 03/10/19 13:16 Plt Morphology Comment Not Reportable 03/10/19 13:16 RBC Morphology Not Reportable 03/10/19 13:16 Dimorphic RBCs Not Reportable 03/10/19 13:16 Polychromasia Not Reportable 03/10/19 13:16 Hypochromasia 1+ 03/10/19 13:16 Poikilocytosis Not Reportable 03/10/19 13:16 Anisocytosis 1+ 03/10/19 13:16 Microcytosis Not Reportable 03/10/19 13:16 Macrocytosis Not Reportable 03/10/19 13:16 Spherocytes Not Reportable 03/10/19 13:16 Pappenheimer Bodies Not Reportable 03/10/19 13:16 Sickle Cells Not Reportable 03/10/19 13:16 Target Cells Few 03/10/19 13:16 Tear Drop Cells Not Reportable 03/10/19 13:16 Ovalocytes Few 03/10/19 13:16 Helmet Cells Not Reportable 03/10/19 13:16 [place] Bodies Not Reportable 03/10/19 13:16 [place] Rings Not Reportable 03/10/19 13:16 [place] Cells Not Reportable 03/10/19 13:16 Bite Cells Not Reportable 03/10/19 13:16 Crenated Cell Not Reportable 03/10/19 13:16 Elliptocytes Not Reportable 03/10/19 13:16 Acanthocytes (Spur) Not Reportable 03/10/19 13:16 Rouleaux Not Reportable 03/10/19 13:16 Hemoglobin C Crystals Not Reportable 03/10/19 13:16 Schistocytes Not Reportable 03/10/19 13:16 Malaria parasites Not Reportable 03/10/19 13:16 [place] Bodies Not Reportable 03/10/19 13:16 Hem Pathologist Commnt No 03/10/19 13:16 Sodium 148 mmol/L (137-145) H 03/11/19 07:29 Potassium 5.6 mmol/L (3.6-5.0) H 03/11/19 07:29 Chloride 122.3 mmol/L (98-107) H 03/11/19 07:29 Carbon Dioxide 20 mmol/L (22-30) L 03/11/19 07:29 Anion Gap 11 mmol/L 03/11/19 07:29 BUN 13 mg/dL (7-17) 03/11/19 07:29 Creatinine 0.6 mg/dL (0.7-1.2) L 03/11/19 07:29 Estimated GFR > 60 ml/min 03/11/19 07:29 BUN/Creatinine Ratio 22 % 03/11/19 07:29 Glucose 77 mg/dL (65-100) 03/11/19 07:29 POC Glucose 117 (70-105) H 03/11/19 11:25 Hemoglobin A1c 4.6 % (4-6) 03/10/19 13:16 Lactic Acid 0.80 mmol/L (0.7-2.0) 03/10/19 16:52 Calcium 8.8 mg/dL (8.4-10.2) 03/11/19 07:29 Total Bilirubin 0.40 mg/dL (0.1-1.2) 03/11/19 07:29 AST 102 units/L (5-40) H 03/11/19 07:29 ALT 65 units/L (7-56) H 03/11/19 07:29 Alkaline Phosphatase 134 units/L (35-129) H 03/11/19 07:29 Ammonia 54.0 umol/L (25-60) 03/11/19 07:29 Total Creatine Kinase 86 units/L (30-135) 03/10/19 13:16 Troponin T 0.017 ng/mL (0.00-0.029) 03/10/19 13:16 Total Protein 6.1 g/dL (6.3-8.2) L 03/11/19 07:29 Albumin 1.8 g/dL (3.9-5) L 03/11/19 07:29 Albumin/Globulin Ratio 0.4 % 03/11/19 07:29 Urine Color Straw (Yellow) 03/10/19 14:38 Urine Turbidity Clear (Clear) 03/10/19 14:38 Urine pH 7.0 (5.0-7.0) 03/10/19 14:38 Ur Specific [place] 1.009 (1.003-1.030) 03/10/19 14:38 Urine Protein <15 mg/dl mg/dL (Negative) 03/10/19 14:38 Urine Glucose (UA) Neg mg/dL (Negative) 03/10/19 14:38 Urine Ketones Neg mg/dL (Negative) 03/10/19 14:38 Urine Blood Neg (Negative) 03/10/19 14:38 Urine Nitrite Neg (Negative) 03/10/19 14:38 Urine Bilirubin Neg (Negative) 03/10/19 14:38 Urine Urobilinogen < 2.0 mg/dL (<2.0) 03/10/19 14:38 Ur Leukocyte Esterase Sm (Negative) 03/10/19 14:38 Urine WBC (Auto) 9.0 /HPF (0.0-6.0) H 03/10/19 14:38 Urine RBC (Auto) 2.0 /HPF (0.0-6.0) 03/10/19 14:38 U Epithel Cells (Auto) 1.0 /HPF (0-13.0) 03/10/19 14:38 Urine Bacteria (Auto) 2+ /HPF (Negative) 03/10/19 14:38 Urine Mucus Few /HPF 03/10/19 14:38 Active Medications - Current Medications Current Medications: Generic Name Dose Route Start Last Admin Trade Name Freq PRN Reason Stop Dose Admin Acetaminophen 650 mg 03/10/19 17:46 Tylenol PO Q4H PRN Pain MILD(1-3)/Fever >100.5/GUERRERO Albuterol 2.5 mg 03/11/19 03:52 Proventil IH TID PRN Wheezing Albuterol/Ipratropium 1 ampul 03/11/19 08:00 03/11/19 08:17 Duoneb *Not For Prn Use* IH 1 ampul Q6HRT CONNIE Administration Amlodipine Besylate 5 mg 03/11/19 10:00 03/11/19 09:56 Amlodipine PO Not Given QDAY CONNIE Chlordiazepoxide HCl 25 mg 03/11/19 10:00 03/11/19 09:56 Librium PO Not Given DAILY CONNIE Dextrose 50 ml 03/10/19 22:27 03/10/19 22:52 D50w (25gm) Syringe IV 50 ml Q30MIN PRN Administration Hypoglycemia Fluticasone Propionate 50 mcg 03/11/19 10:00 03/11/19 09:48 Flonase NS 50 mcg QDAY CONNIE Administration Folic Acid 1 mg 03/11/19 10:00 03/11/19 09:56 Folvite PO Not Given QDAY CONNIE Haloperidol 0.5 mg 03/11/19 03:52 Haldol PO Q6H PRN Agitation Sodium Chloride 1,000 mls @ 75 mls/hr 03/10/19 18:00 03/10/19 21:59 Nacl 0.9% 1000 Ml IV 75 mls/hr DIRECT CONNIE Administration Cefepime HCl 1 gm in 100 mls @ 200 mls/hr 03/10/19 22:00 03/11/19 05:05 Cefepime/Ns 1 Gm/100 Ml IV 200 mls/hr Q8HR CONNIE Administration Protocol Vancomycin HCl 1 gm in 250 mls @ 166.667 mls/hr 03/11/19 07:00 03/11/19 06:03 Vancomycin/Ns 1 Gm/250 Ml IV 166.667 mls/hr Q12H CONNIE Administration Dextrose 1,000 mls @ 100 mls/hr 03/11/19 05:00 03/11/19 04:57 D5w IV 100 mls/hr DIRECT CONNIE Administration Insulin Human Lispro 0 unit 03/11/19 00:00 03/11/19 11:42 Humalog SUB-Q Not Given Q6HR [facility] Protocol Lactulose 20 gm 03/11/19 04:00 03/11/19 04:56 Cephulac PO 20 gm Q12H CONNIE Administration Morphine Sulfate 2 mg 03/10/19 17:56 03/11/19 05:04 Morphine IV 2 mg Q4H PRN Administration Pain, Moderate (4-6) Ondansetron HCl 4 mg 03/10/19 17:46 03/11/19 05:04 Zofran IV 4 mg Q8H PRN Administration Nausea And Vomiting Rifaximin 550 mg 03/11/19 10:00 03/11/19 09:57 Xifaxan PO Not Given BID CONNIE Sodium Chloride 10 ml 03/10/19 22:00 03/11/19 09:52 Sodium Chloride Flush Syringe 10 Ml IV 10 ml BID CONNIE Administration Sodium Chloride 10 ml 03/10/19 17:46 Sodium Chloride Flush Syringe 10 Ml IV PRN PRN LINE FLUSH Thiamine HCl 100 mg 03/11/19 10:00 03/11/19 09:56 Vitamin B-1 PO Not Given QDAY CONNIE Nutrition/Malnutrition Assess - Dietary Evaluation Nutrition/Malnutrition Findings: Nutrition Notes Start: 03/11/19 10:01 Freq: Status: Active Protocol: Document 03/11/19 10:01 AP (Rec: 03/11/19 10:20 AP [id number]) Co-Sign 03/11/19 10:01 LP Nutrition Notes Need for Assessment generated from: MD Order,MST Initial or Follow up Assessment Current Diagnosis COPD,Decubitus(Pressure Ulcer) ,Hypertension Other Pertinent Diagnosis AMS/nonverbal, Hep C, Anemia, Renal stones Current Diet Cardiac Labs/Tests Na 148 Pertinent Medications D5 at 100ml/hr NS at 75ml/hr Height 5 ft 3 in Weight 77.56 kg [place] Body Weight (kg) 52.27 BMI 30.2 Weight Status Obese Subjective/Other Information MD consult for MST. Pt non- verbal, spoke to RN who requested pureed diet as pt needs mealtime assistance and does not open her mouth much. Sarabjit score of 14. 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 Is patient on ventilator? No Is Patient Ambulatory and/or Out of Bed No REE-(Hettinger-St. Jeor-confined to bed) 1547.076 Calculation Used for Recommendations Hettinger-St Jeor Additional Notes PRO needs: 64-77g/day (1-1.2g/ kg/AdBW 64.5kg) Fluids: 1ml/kcal or per MD Nutrition Intervention Change Diet Order: Pureed Goal #1 Pt meet >80% of kcal/PRO needs via PO. Anticipated Discharge Needs: Unknown Follow-Up By: 03/14/19 Additional Comments F/U for PO intakes, need for ONS.
[2019-03-11] MEDS ORDERED: SODIUM POLYSTYRENE 15 GM/60 ML ORAL LIQD PR ONE (14:37)
[2019-03-11 16:01] LABS: Mean Corpuscular HGB Conc 32 % (30-34); Mean Corpuscular Volume 95 fl (79-97); Red Blood Count 3.67 M/mm3 (3.65-5.03)
[2019-03-11 16:04] LABS: Platelet Count 53 K/mm3 (140-440); Red Cell Distribution Width 22.1 % (13.2-15.2)
[2019-03-11] MEDS ORDERED: SODIUM POLYSTYRENE 15 GM/60 ML ORAL LIQD PR NR (17:30)
[2019-03-11 19:16] LABS: Basophils % (Manual) 0 % (0.0-1.8); Eosinophils % (Manual) 2.4 % (0.0-4.3); Monocytes % (Manual) 9.5 % (0.0-7.3); Total Cells Counted 42
[2019-03-11 19:17] LABS: Anisocytosis 1+; Platelet Estimate Appears Decreased
[2019-03-11 19:18] LABS: Target Cells Few
[2019-03-12] MEDS: INSULIN LISPRO 100 UNIT/ML SUB-Q SCH ×4 (01:12→17:51)
[2019-03-12] MEDS: LACTULOSE 20 GM/30 ML ORAL LIQD PO SCH ×2 (03:26→15:11)
[2019-03-12] MEDS: IPRATROPIUM/ALBUTEROL SULFATE 3 ML AMPUL.NEB IH SCH ×4 (04:00→19:00)
[2019-03-12] MEDS: CEFEPIME/NS 1 GM/100 ML 1 GM/100 ML BAG IV SCH ×3 (05:59→21:39)
[2019-03-12] MEDS: DEXTROSE 5% IN WATER 1,000 ML IV SCH ×2 (06:00→18:21)
[2019-03-12] MEDS: VANCOMYCIN/NS 1 GM/250 ML 1 GM/250 ML BAG IV SCH ×2 (06:59→18:17)
[2019-03-12] MEDS ORDERED: IPRATROPIUM/ALBUTEROL SULFATE 3 ML AMPUL.NEB IH ONE (07:56)
[2019-03-12] MEDS: amLODIPine 5 MG TAB PO SCH (09:32)
[2019-03-12] MEDS: RIFAXIMIN 550 MG TAB PO SCH ×2 (09:32→21:40)
[2019-03-12] MEDS: chlordiazePOXIDE 25 MG CAP PO SCH (09:32)
[2019-03-12] MEDS: THIAMINE 100 MG TAB PO SCH (09:32)
[2019-03-12] MEDS: FOLIC ACID 1 MG TAB PO SCH (09:33)
[2019-03-12] MEDS: FLUTICASONE PROPIONATE NASAL SPRAY 16 GM NS SCH (09:33)
[2019-03-12 09:34] LABS: BUN/Creatinine Ratio 16; Blood Urea Nitrogen 13 mg/dL (7-17); Calcium 8.6 mg/dL (8.4-10.2); Hemolysis Index 23
[2019-03-12 09:38] LABS: Hematocrit 32.2 % (30.3-42.9); Hemoglobin 10.3 gm/dl (10.1-14.3); Mean Corpuscular HGB Conc 32 % (30-34); Mean Corpuscular Volume 97 fl (79-97); Red Blood Count 3.33 M/mm3 (3.65-5.03)
[2019-03-12 09:39] LABS: Platelet Count 58 K/mm3 (140-440); Red Cell Distribution Width 22.8 % (13.2-15.2)
[2019-03-12] MEDS ORDERED: SODIUM POLYSTYRENE 15 GM/60 ML ORAL LIQD PR ONE (09:54)
--- NOTE | 2019-03-12 10:49 | Progress Note ---
Assessment and Plan Assessment and plan: 68-year-old female with multiple medical problems including hep C, hypertension sent from intermediate for altered mental status. Patient was minimally responsive and doesn't answer questions. Patient has liver failure secondary to hepatitis C and alcoholism. Metabolic encephalopathy - Hepatic encephalopathic is possible and patient is on lactulose despite normal level of ammonia, rifaximine - Continue to monitor - Showed some improvement from yesterday Pancytopenia - WBC count was 0.8 and platelet count was 71 on admission, currently WBC is 1.2, todays labs pending - Hematology consulted waiting his recommendations - ON neutropenic precautions - Patient is covered with IV antibiotics Hypertension - continue home medications Hypernatremia - D5W Hyperkalemia - kayexalate - Labs pending Nutrition - On IVF, will ask the nurse to put NG tube feeding DVT prophylaxis - On SCDs Disposition; continue inpatient care History Interval history: Patient was seen and evaluated at the bedside, patient is non verbal. She refused to eat. Hospitalist Physical - Physical exam Narrative exam: Not in cardiopulmonary distress. The patient appeared well nourished and normally developed. Vital signs as documented. Head exam is unremarkable. No scleral icterus . Neck is without jugular venous distension, thyromegaly, or carotid bruits. Lungs are clear to auscultation. Cardiac exam reveals regular rate and Rhythm. First and second heart sounds normal. No murmurs, rubs or gallops. Abdominal exam reveals normal bowel sounds, no masses, no organomegaly and no ao rtic enlargement. Extremities are nonedematous and both femoral and pedal pulses are normal. 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 - Constitutional Vitals: Temp Pulse Resp BP Pulse Ox 97.5 F L 84 17 120/69 96 03/12/19 02:00 03/12/19 08:00 03/12/19 08:00 03/12/19 07:49 03/12/19 07:49 Results - Labs CBC & Chem 7: 03/12/19 08:55 03/12/19 08:55 Labs: Laboratory Last Values WBC 2.4 K/mm3 (4.5-11.0) L 03/12/19 08:55 RBC 3.33 M/mm3 (3.65-5.03) L 03/12/19 08:55 Hgb 10.3 gm/dl (10.1-14.3) 03/12/19 08:55 Hct 32.2 % (30.3-42.9) 03/12/19 08:55 MCV 97 fl (79-97) 03/12/19 08:55 MCH 31 pg (28-32) 03/12/19 08:55 MCHC 32 % (30-34) 03/12/19 08:55 RDW 22.8 % (13.2-15.2) H 03/12/19 08:55 Plt Count 58 K/mm3 (140-440) L 03/12/19 08:55 Lymph % (Auto) [place] 03/12/19 08:55 [place] % (Auto) [place] 03/12/19 08:55 Eos % (Auto) [place] 03/12/19 08:55 Baso % (Auto) [place] 03/12/19 08:55 Lymph # [place] 03/12/19 08:55 [place] # [place] 03/12/19 08:55 Eos # [place] 03/12/19 08:55 Baso # [place] 03/12/19 08:55 Add Manual Diff Complete 03/11/19 15:28 Total Counted 42 03/11/19 15:28 Seg Neutrophils % [place] 03/12/19 08:55 Seg Neuts % (Manual) 78.6 % (40.0-70.0) H 03/11/19 15:28 Band Neutrophils % 0 % 03/11/19 15:28 Lymphocytes % (Manual) 9.5 % (13.4-35.0) L 03/11/19 15:28 Reactive Lymphs % (Man) 0 % 03/11/19 15:28 Monocytes % (Manual) 9.5 % (0.0-7.3) H 03/11/19 15:28 Eosinophils % (Manual) 2.4 % (0.0-4.3) 03/11/19 15:28 Basophils % (Manual) 0 % (0.0-1.8) 03/11/19 15:28 Metamyelocytes % 0 % 03/11/19 15:28 Myelocytes % 0 % 03/11/19 15:28 Promyelocytes % 0 % 03/11/19 15:28 Blast Cells % 0 % 03/11/19 15:28 Nucleated RBC % Not Reportable 03/11/19 15:28 Seg Neutrophils # [place] 10/26/19 08:55 Seg Neutrophils # Man 0.9 K/mm3 (1.8-7.7) L 03/11/19 15:28 Band Neutrophils # 0.0 K/mm3 03/11/19 15:28 Lymphocytes # (Manual) 0.1 K/mm3 (1.2-5.4) L 03/11/19 15:28 Abs React Lymphs (Man) 0.0 K/mm3 03/11/19 15:28 Monocytes # (Manual) 0.1 K/mm3 (0.0-0.8) 03/11/19 15:28 Eosinophils # (Manual) 0.0 K/mm3 (0.0-0.4) 03/11/19 15:28 Basophils # (Manual) 0.0 K/mm3 (0.0-0.1) 03/11/19 15:28 Metamyelocytes # 0.0 K/mm3 03/11/19 15:28 Myelocytes # 0.0 K/mm3 03/11/19 15:28 Promyelocytes # 0.0 K/mm3 03/11/19 15:28 Blast Cells # 0.0 K/mm3 03/11/19 15:28 WBC Morphology Not Reportable 03/11/19 15:28 Hypersegmented Neuts Not Reportable 03/11/19 15:28 Hyposegmented Neuts Not Reportable 03/11/19 15:28 Hypogranular Neuts Not Reportable 03/11/19 15:28 Smudge Cells Not Reportable 03/11/19 15:28 Toxic Granulation Not Reportable 03/11/19 15:28 Toxic Vacuolation Not Reportable 03/11/19 15:28 Dohle Bodies Not Reportable 03/11/19 15:28 Pelger-Huet Anomaly Not Reportable 03/11/19 15:28 Sheila Rods Not Reportable 03/11/19 15:28 Platelet Estimate Appears decreased 03/11/19 15:28 Clumped Platelets Not Reportable 03/11/19 15:28 Plt Clumps, EDTA Not Reportable 03/11/19 15:28 Large Platelets Not Reportable 03/11/19 15:28 Giant Platelets Not Reportable 03/11/19 15:28 Platelet Satelliting Not Reportable 03/11/19 15:28 Plt Morphology Comment Not Reportable 03/11/19 15:28 RBC Morphology Not Reportable 03/11/19 15:28 Dimorphic RBCs Not Reportable 03/11/19 15:28 Polychromasia Not Reportable 03/11/19 15:28 Hypochromasia Not Reportable 03/11/19 15:28 Poikilocytosis Not Reportable 03/11/19 15:28 Anisocytosis 1+ 03/11/19 15:28 Microcytosis Not Reportable 03/11/19 15:28 Macrocytosis Not Reportable 03/11/19 15:28 Spherocytes Not Reportable 03/11/19 15:28 Pappenheimer Bodies Not Reportable 03/11/19 15:28 Sickle Cells Not Reportable 03/11/19 15:28 Target Cells Few 03/11/19 15:28 Tear Drop Cells Not Reportable 03/11/19 15:28 Ovalocytes Not Reportable 03/11/19 15:28 Helmet Cells Not Reportable 03/11/19 15:28 [place] Bodies Not Reportable 03/11/19 15:28 [place] Rings Not Reportable 03/11/19 15:28 [place] Cells Not Reportable 03/11/19 15:28 Bite Cells Not Reportable 03/11/19 15:28 Crenated Cell Not Reportable 03/11/19 15:28 Elliptocytes Not Reportable 03/11/19 15:28 Acanthocytes (Spur) Not Reportable 03/11/19 15:28 Rouleaux Not Reportable 03/11/19 15:28 Hemoglobin C Crystals Not Reportable 03/11/19 15:28 Schistocytes Not Reportable 03/11/19 15:28 Malaria parasites Not Reportable 03/11/19 15:28 [place] Bodies Not Reportable 03/11/19 15:28 Hem Pathologist Commnt No 03/11/19 15:28 Sodium 143 mmol/L (137-145) 03/12/19 08:55 Potassium 5.6 mmol/L (3.6-5.0) H 03/12/19 08:55 Chloride 114.2 mmol/L (98-107) H 03/12/19 08:55 Carbon Dioxide 21 mmol/L (22-30) L 03/12/19 08:55 Anion Gap 13 mmol/L 03/12/19 08:55 BUN 13 mg/dL (7-17) 03/12/19 08:55 Creatinine 0.8 mg/dL (0.7-1.2) 03/12/19 08:55 Estimated GFR > 60 ml/min 03/12/19 08:55 BUN/Creatinine Ratio 16 % 03/12/19 08:55 Glucose 74 mg/dL (65-100) 03/12/19 08:55 POC Glucose 116 (70-105) H 03/12/19 05:45 Hemoglobin A1c 4.6 % (4-6) 03/10/19 13:16 Lactic Acid 0.80 mmol/L (0.7-2.0) 03/10/19 16:52 Calcium 8.6 mg/dL (8.4-10.2) 03/12/19 08:55 Total Bilirubin 0.40 mg/dL (0.1-1.2) 03/11/19 07:29 AST 102 units/L (5-40) H 03/11/19 07:29 ALT 65 units/L (7-56) H 03/11/19 07:29 Alkaline Phosphatase 134 units/L (35-129) H 03/11/19 07:29 Ammonia 54.0 umol/L (25-60) 03/11/19 07:29 Total Creatine Kinase 86 units/L (30-135) 03/10/19 13:16 Troponin T 0.017 ng/mL (0.00-0.029) 03/10/19 13:16 Total Protein 6.1 g/dL (6.3-8.2) L 03/11/19 07:29 Albumin 1.8 g/dL (3.9-5) L 03/11/19 07:29 Albumin/Globulin Ratio 0.4 % 03/11/19 07:29 Urine Color Straw (Yellow) 03/10/19 14:38 Urine Turbidity Clear (Clear) 03/10/19 14:38 Urine pH 7.0 (5.0-7.0) 03/10/19 14:38 Ur Specific [place] 1.009 (1.003-1.030) 03/10/19 14:38 Urine Protein <15 mg/dl mg/dL (Negative) 03/10/19 14:38 Urine Glucose (UA) Neg mg/dL (Negative) 03/10/19 14:38 Urine Ketones Neg mg/dL (Negative) 03/10/19 14:38 Urine Blood Neg (Negative) 03/10/19 14:38 Urine Nitrite Neg (Negative) 03/10/19 14:38 Urine Bilirubin Neg (Negative) 03/10/19 14:38 Urine Urobilinogen < 2.0 mg/dL (<2.0) 03/10/19 14:38 Ur Leukocyte Esterase Sm (Negative) 03/10/19 14:38 Urine WBC (Auto) 9.0 /HPF (0.0-6.0) H 03/10/19 14:38 Urine RBC (Auto) 2.0 /HPF (0.0-6.0) 03/10/19 14:38 U Epithel Cells (Auto) 1.0 /HPF (0-13.0) 03/10/19 14:38 Urine Bacteria (Auto) 2+ /HPF (Negative) 03/10/19 14:38 Urine Mucus Few /HPF 03/10/19 14:38 Active Medications - Current Medications Current Medications: Generic Name Dose Route Start Last Admin Trade Name Freq PRN Reason Stop Dose Admin Acetaminophen 650 mg 03/10/19 17:46 Tylenol PO Q4H PRN Pain MILD(1-3)/Fever >100.5/GUERRERO Albuterol 2.5 mg 03/11/19 03:52 Proventil IH TID PRN Wheezing Albuterol/Ipratropium 1 ampul 03/11/19 08:00 03/12/19 08:00 Duoneb *Not For Prn Use* IH 1 ampul Q6HRT CONNIE Administration Amlodipine Besylate 5 mg 03/11/19 10:00 03/12/19 09:32 Amlodipine PO 5 mg QDAY CONNIE Administration Chlordiazepoxide HCl 25 mg 03/11/19 10:00 03/12/19 09:32 Librium PO 25 mg DAILY CONNIE Administration Dextrose 50 ml 03/10/19 22:27 03/10/19 22:52 D50w (25gm) Syringe IV 50 ml Q30MIN PRN Administration Hypoglycemia Fluticasone Propionate 50 mcg 03/11/19 10:00 03/12/19 09:33 Flonase NS 50 mcg QDAY CONNIE Administration Folic Acid 1 mg 03/11/19 10:00 03/12/19 09:33 Folvite PO 1 mg QDAY CONNIE Administration Haloperidol 0.5 mg 03/11/19 03:52 03/12/19 09:32 Haldol PO 0.5 mg Q6H PRN Administration Agitation Sodium Chloride 1,000 mls @ 75 mls/hr 03/10/19 18:00 03/10/19 21:59 Nacl 0.9% 1000 Ml IV 75 mls/hr DIRECT CONNIE Administration Cefepime HCl 1 gm in 100 mls @ 200 mls/hr 03/10/19 22:00 03/12/19 05:59 Cefepime/Ns 1 Gm/100 Ml IV 200 mls/hr Q8HR CONNIE Administration Protocol Vancomycin HCl 1 gm in 250 mls @ 166.667 mls/hr 03/11/19 07:00 03/12/19 06:59 Vancomycin/Ns 1 Gm/250 Ml IV 166.667 mls/hr Q12H CONNIE Administration Dextrose 1,000 mls @ 100 mls/hr 03/11/19 05:00 03/12/19 06:00 D5w IV 100 mls/hr DIRECT CONNIE Administration Insulin Human Lispro 0 unit 03/11/19 00:00 03/12/19 06:00 Humalog SUB-Q Not Given Q6HR [facility] Protocol Lactulose 20 gm 03/11/19 04:00 03/12/19 03:26 Cephulac PO Not Given Q12H [facility] Morphine Sulfate 2 mg 03/10/19 17:56 03/11/19 05:04 Morphine IV 2 mg Q4H PRN Administration Pain, Moderate (4-6) Ondansetron HCl 4 mg 03/10/19 17:46 03/11/19 05:04 Zofran IV 4 mg Q8H PRN Administration Nausea And Vomiting Rifaximin 550 mg 03/11/19 10:00 03/12/19 09:32 Xifaxan PO 550 mg BID CONNIE Administration Sodium Chloride 10 ml 03/10/19 22:00 03/12/19 09:33 Sodium Chloride Flush Syringe 10 Ml IV 10 ml BID CONNIE Administration Sodium Chloride 10 ml 03/10/19 17:46 Sodium Chloride Flush Syringe 10 Ml IV PRN PRN LINE FLUSH Thiamine HCl 100 mg 03/11/19 10:00 03/12/19 09:32 Vitamin B-1 PO 100 mg QDAY CONNIE Administration Nutrition/Malnutrition Assess - Dietary Evaluation Nutrition/Malnutrition Findings: Nutrition Notes Start: 03/11/19 10:01 Freq: Status: Active Protocol: Document 03/11/19 10:01 AP (Rec: 03/11/19 10:20 AP [id number]) Co-Sign 03/11/19 10:01 LP Nutrition Notes Need for Assessment generated from: MD Order,MST Initial or Follow up Assessment Current Diagnosis COPD,Decubitus(Pressure Ulcer) ,Hypertension Other Pertinent Diagnosis AMS/nonverbal, Hep C, Anemia, Renal stones Current Diet Cardiac Labs/Tests Na 148 Pertinent Medications D5 at 100ml/hr NS at 75ml/hr Height 5 ft 3 in Weight 77.56 kg Hansen Body Weight (kg) 52.27 BMI 30.2 Weight Status Obese Subjective/Other Information MD consult for MST. Pt non- verbal, spoke to RN who requested pureed diet as pt needs mealtime assistance and does not open her mouth much. Sarabjit score of 14. Current % PO Poor (25-49%) Minimum of two criteria No Reduced [employer] Strength Measurably Reduced (severe) #1 Nutrition Diagnosis Inadequate oral intake Etiology AMS As Evidenced by Signs and Symptoms Pt needing meal time assistance, pureed foods for easier buccal access. Is patient on ventilator? No Is Patient Ambulatory and/or Out of Bed No REE-([facility]-confined to bed) [phone] Calculation Used for Recommendations [facility] Additional Notes PRO needs: 64-77g/day (1-1.2g/ kg/AdBW 64.5kg) Fluids: 1ml/kcal or per MD Nutrition Intervention Change Diet Order: Pureed Goal #1 Pt meet >80% of kcal/PRO needs via PO. Anticipated Discharge Needs: Unknown Follow-Up By: 03/14/19 Additional Comments F/U for PO intakes, need for ONS.
[2019-03-12 11:05] LABS: Anisocytosis 1+; Basophils % (Manual) 0 % (0.0-1.8); Macrocytosis 1+; Platelet Estimate Consistent w Auto; Total Cells Counted 100
[2019-03-12] MEDS ORDERED: SIMPLE SYRUP 15 ML FEEDTUBE PRN ×2 (11:12)
[2019-03-12] MEDS ORDERED: LIPASE 10,500/PROTEASE 25,000/AMYLASE 43,750 (UNITS) DR CAP FEEDTUBE PRN (11:12)
[2019-03-12] MEDS ORDERED: SODIUM BICARBONATE 325 MG TAB FEEDTUBE PRN (11:12)
--- NOTE | 2019-03-12 12:47 | XRay Report ---
ABDOMEN 1 VIEW(S) INDICATION / CLINICAL INFORMATION: NG tube placement.. COMPARISON: Abdomen from 02/14/2019 FINDINGS: TUBES / LINES: DHT tip in the proximal stomach should be advanced at least 10 cm distally. BOWEL GAS PATTERN: Moderate colonic stool burden as may be seen with constipation. FREE AIR / EXTRALUMINAL GAS: None seen. ADDITIONAL FINDINGS: There is cholelithiasis. IMPRESSION: 1. DHT as above. Signer Name: Roscoe Kaiser MD Signed: 03/12/2019 12:43 PM Workstation Name: [id number]
--- NOTE | 2019-03-12 14:18 | XRay Report ---
ABDOMEN 1 VIEW 1:57 PM INDICATION / CLINICAL INFORMATION: NG tube placement.. COMPARISON: Earlier today at 12:18 PM FINDINGS: TUBES / LINES: There is a feeding tube which has been advanced the prior study. The tip of the tube o verlies the proximal stomach and is well below the gastroesophageal junction. BOWEL GAS PATTERN: No significant abnormality. FREE AIR / EXTRALUMINAL GAS: None seen. ADDITIONAL FINDINGS: No significant additional findings. IMPRESSION: Feeding tube tip overlies the proximal stomach. Signer Name: Julio Gutierrez MD Signed: 03/12/2019 2:13 PM Workstation Name: [id number]
--- NOTE | 2019-03-12 15:38 | Event Note ---
Date: 03/12/19 [id number]
[2019-03-13] MEDS: INSULIN LISPRO 100 UNIT/ML SUB-Q SCH ×4 (00:51→17:54)
[2019-03-13] MEDS: IPRATROPIUM/ALBUTEROL SULFATE 3 ML AMPUL.NEB IH SCH ×4 (01:56→19:33)
[2019-03-13] MEDS: LACTULOSE 20 GM/30 ML ORAL LIQD PO SCH ×2 (03:09→16:05)
[2019-03-13 04:46] LABS: Hematocrit 29.4 % (30.3-42.9); Hemoglobin 9.4 gm/dl (10.1-14.3); Mean Corpuscular HGB Conc 32 % (30-34); Mean Corpuscular Volume 96 fl (79-97); Red Blood Count 3.06 M/mm3 (3.65-5.03)
[2019-03-13 04:50] LABS: Red Cell Distribution Width 23.1 % (13.2-15.2)
[2019-03-13 04:55] LABS: BUN/Creatinine Ratio 14; Blood Urea Nitrogen 14 mg/dL (7-17); Calcium 8.6 mg/dL (8.4-10.2); Hemolysis Index 65
[2019-03-13] MEDS: CEFEPIME/NS 1 GM/100 ML 1 GM/100 ML BAG IV SCH (05:26)
[2019-03-13] MEDS: DEXTROSE 5% IN WATER 1,000 ML IV SCH ×2 (05:26→16:05)
[2019-03-13 06:56] LABS: Basophils % (Manual) 0 % (0.0-1.8); Total Cells Counted 100
[2019-03-13 06:57] LABS: Anisocytosis 1+; Macrocytosis Few; Platelet Estimate Consistent w Auto
[2019-03-13] MEDS: VANCOMYCIN/NS 1 GM/250 ML 1 GM/250 ML BAG IV SCH (07:23)
[2019-03-13 07:35] LABS: Mean Platelet Volume 9.8 fl (6-12); Platelet Count 62 K/mm3 (140-440)
[2019-03-13] MEDS: chlordiazePOXIDE 25 MG CAP PO SCH (09:27)
[2019-03-13] MEDS: RIFAXIMIN 550 MG TAB PO SCH ×2 (09:27→22:50)
[2019-03-13] MEDS: FOLIC ACID 1 MG TAB PO SCH (09:27)
[2019-03-13] MEDS: THIAMINE 100 MG TAB PO SCH (09:27)
[2019-03-13] MEDS: FLUTICASONE PROPIONATE NASAL SPRAY 16 GM NS SCH (09:28)
[2019-03-13] MEDS: amLODIPine 5 MG TAB PO SCH (09:28)
--- NOTE | 2019-03-13 13:39 | Progress Note ---
Assessment and Plan Assessment and plan: 68-year-old female with multiple medical problems including hep C, hypertension sent from halfway for altered mental status. Patient is responsive but doesn't answer questions. She has liver failure secondary to hepatitis C and alcoholism. VRE UTI -IV cefepime and vancomycin discontinued -IV consulted Acute Metabolic encephalopathy with agitation - Probably due to acute infection - on scheduled and PRN sedative agents and restraints - Continue to monitor clinically Acute on chronic Pancytopenia - improving, will continue to monitor levels - Oncology consulted Hypertension - stable Hypernatremia - probably 2/2 dehydration - improved on IV D5W Hyperkalemia - s/p kayexalate, improved Hypoglycemia -On hypoglycemic protocol CLD -Continue lactulose and rifaximin Nutrition - s/p NG tube placement on tube feeding DVT prophylaxis - On SCDs due to thrombocytopenia Disposition: continue inpatient care, d/c per clinical course History Interval history: Pt is unable to communicate appropriately. She continues to be on restraints due to agitation Hospitalist Physical - Constitutional Vitals: Temp Pulse Resp BP Pulse Ox 98.5 F 106 H 18 108/59 93 03/13/19 08:34 03/13/19 09:28 03/13/19 08:34 03/13/19 09:28 03/13/19 08:34 General appearance: Present: no acute distress, well-nourished - EENT Eyes: Present: PERRL, EOM intact ENT: clear oral mucosa - Neck Neck: Present: supple - Respiratory Respiratory effort: normal Respiratory: bilateral: rhonchi - Cardiovascular Rhythm: regular Heart Sounds: Present: S1 & S2 - Extremities Extremities: No edema - Abdominal General gastrointestinal: soft, non-tender, normal bowel sounds - Psychiatric Psychiatric: other (could not assess due to AMS) - Neurologic Neurologic: moves all extremities, other (AMS) Results - Labs CBC & Chem 7: 03/13/19 03:48 03/13/19 03:48 Labs: Laboratory Last Values WBC 2.7 K/mm3 (4.5-11.0) L 03/13/19 03:48 RBC 3.06 M/mm3 (3.65-5.03) L 03/13/19 03:48 Hgb 9.4 gm/dl (10.1-14.3) L 03/13/19 03:48 Hct 29.4 % (30.3-42.9) L 03/13/19 03:48 MCV 96 fl (79-97) 03/13/19 03:48 MCH 31 pg (28-32) 03/13/19 03:48 MCHC 32 % (30-34) 03/13/19 03:48 RDW 23.1 % (13.2-15.2) H 03/13/19 03:48 Plt Count 62 K/mm3 (140-440) L 03/13/19 03:48 Lymph % (Auto) Telecommunications Repairer 03/12/19 08:55 [place] % (Auto) Telecommunications Repairer 03/12/19 08:55 Eos % (Auto) Telecommunications Repairer 03/12/19 08:55 Baso % (Auto) Telecommunications Repairer 03/12/19 08:55 Lymph # Telecommunications Repairer 03/12/19 08:55 [place] # Telecommunications Repairer 03/12/19 08:55 Eos # Telecommunications Repairer 03/12/19 08:55 Baso # Telecommunications Repairer 03/12/19 08:55 Add Manual Diff Complete 03/13/19 03:48 Total Counted 100 03/13/19 03:48 Seg Neutrophils % Telecommunications Repairer 03/12/19 08:55 Seg Neuts % (Manual) 76.0 % (40.0-70.0) H 03/13/19 03:48 Band Neutrophils % 0 % 03/13/19 03:48 Lymphocytes % (Manual) 20.0 % (13.4-35.0) 03/13/19 03:48 Reactive Lymphs % (Man) 0 % 03/13/19 03:48 Monocytes % (Manual) 3.0 % (0.0-7.3) 03/13/19 03:48 Eosinophils % (Manual) 1.0 % (0.0-4.3) 03/13/19 03:48 Basophils % (Manual) 0 % (0.0-1.8) 03/13/19 03:48 Metamyelocytes % 0 % 03/13/19 03:48 Myelocytes % 0 % 03/13/19 03:48 Promyelocytes % 0 % 03/13/19 03:48 Blast Cells % 0 % 03/13/19 03:48 Nucleated RBC % 11.0 % (0.0-0.9) H 03/13/19 03:48 Seg Neutrophils # Telecommunications Repairer 03/12/19 08:55 Seg Neutrophils # Man 2.0 K/mm3 (1.8-7.7) 03/13/19 03:48 Band Neutrophils # 0.0 K/mm3 03/13/19 03:48 Lymphocytes # (Manual) 0.5 K/mm3 (1.2-5.4) L 03/13/19 03:48 Abs React Lymphs (Man) 0.0 K/mm3 03/13/19 03:48 Monocytes # (Manual) 0.1 K/mm3 (0.0-0.8) 03/13/19 03:48 Eosinophils # (Manual) 0.0 K/mm3 (0.0-0.4) 03/13/19 03:48 Basophils # (Manual) 0.0 K/mm3 (0.0-0.1) 03/13/19 03:48 Metamyelocytes # 0.0 K/mm3 03/13/19 03:48 Myelocytes # 0.0 K/mm3 03/13/19 03:48 Promyelocytes # 0.0 K/mm3 03/13/19 03:48 Blast Cells # 0.0 K/mm3 03/13/19 03:48 WBC Morphology Not Reportable 03/13/19 03:48 Hypersegmented Neuts Not Reportable 03/13/19 03:48 Hyposegmented Neuts Not Reportable 03/13/19 03:48 Hypogranular Neuts Not Reportable 03/13/19 03:48 Smudge Cells Not Reportable 03/13/19 03:48 Toxic Granulation Not Reportable 03/13/19 03:48 Toxic Vacuolation Not Reportable 03/13/19 03:48 Dohle Bodies Not Reportable 03/13/19 03:48 Pelger-Huet Anomaly Not Reportable 03/13/19 03:48 Sheila Rods Not Reportable 03/13/19 03:48 Platelet Estimate Consistent w auto 03/13/19 03:48 Clumped Platelets Not Reportable 03/13/19 03:48 Plt Clumps, EDTA Not Reportable 03/13/19 03:48 Large Platelets Not Reportable 03/13/19 03:48 Giant Platelets Not Reportable 03/13/19 03:48 Platelet Satelliting Not Reportable 03/13/19 03:48 Plt Morphology Comment Not Reportable 03/13/19 03:48 RBC Morphology Not Reportable 03/13/19 03:48 Dimorphic RBCs Not Reportable 03/13/19 03:48 Polychromasia Not Reportable 03/13/19 03:48 Hypochromasia Not Reportable 03/13/19 03:48 Poikilocytosis Not Reportable 03/13/19 03:48 Anisocytosis 1+ 03/13/19 03:48 Microcytosis Rare 03/13/19 03:48 Macrocytosis Few 03/13/19 03:48 Spherocytes Not Reportable 03/13/19 03:48 Pappenheimer Bodies Not Reportable 03/13/19 03:48 Sickle Cells Not Reportable 03/13/19 03:48 Target Cells Not Reportable 03/13/19 03:48 Tear Drop Cells Not Reportable 03/13/19 03:48 Ovalocytes Not Reportable 03/13/19 03:48 Helmet Cells Not Reportable 03/13/19 03:48 Ann-Di Giorgio Bodies Not Reportable 03/13/19 03:48 Bowdle Rings Not Reportable 03/13/19 03:48 Aldair Cells Not Reportable 03/13/19 03:48 Bite Cells Not Reportable 03/13/19 03:48 Crenated Cell Not Reportable 03/13/19 03:48 Elliptocytes Not Reportable 03/13/19 03:48 Acanthocytes (Spur) Not Reportable 03/13/19 03:48 Rouleaux Not Reportable 03/13/19 03:48 Hemoglobin C Crystals Not Reportable 03/13/19 03:48 Schistocytes Not Reportable 03/13/19 03:48 Malaria parasites Not Reportable 03/13/19 03:48 Marin Bodies Not Reportable 03/13/19 03:48 Hem Pathologist Commnt No 03/13/19 03:48 Sodium 140 mmol/L (137-145) 03/13/19 03:48 Potassium 4.9 mmol/L (3.6-5.0) 03/13/19 03:48 Chloride 112.7 mmol/L (98-107) H 03/13/19 03:48 Carbon Dioxide 21 mmol/L (22-30) L 03/13/19 03:48 Anion Gap 11 mmol/L 03/13/19 03:48 BUN 14 mg/dL (7-17) 03/13/19 03:48 Creatinine 1.0 mg/dL (0.7-1.2) 03/13/19 03:48 Estimated GFR > 60 ml/min 03/13/19 03:48 BUN/Creatinine Ratio 14 % 03/13/19 03:48 Glucose 103 mg/dL (65-100) H 03/13/19 03:48 POC Glucose 116 (70-105) H 03/13/19 12:12 Hemoglobin A1c 4.6 % (4-6) 03/10/19 13:16 Lactic Acid 0.80 mmol/L (0.7-2.0) 03/10/19 16:52 Calcium 8.6 mg/dL (8.4-10.2) 03/13/19 03:48 Total Bilirubin 0.40 mg/dL (0.1-1.2) 03/11/19 07:29 AST 102 units/L (5-40) H 03/11/19 07:29 ALT 65 units/L (7-56) H 03/11/19 07:29 Alkaline Phosphatase 134 units/L (35-129) H 03/11/19 07:29 Ammonia 54.0 umol/L (25-60) 03/11/19 07:29 Total Creatine Kinase 86 units/L (30-135) 03/10/19 13:16 Troponin T 0.017 ng/mL (0.00-0.029) 03/10/19 13:16 Total Protein 6.1 g/dL (6.3-8.2) L 03/11/19 07:29 Albumin 1.8 g/dL (3.9-5) L 03/11/19 07:29 Albumin/Globulin Ratio 0.4 % 03/11/19 07:29 Urine Color Straw (Yellow) 03/10/19 14:38 Urine Turbidity Clear (Clear) 03/10/19 14:38 Urine pH 7.0 (5.0-7.0) 03/10/19 14:38 Ur Specific [place] 1.009 (1.003-1.030) 03/10/19 14:38 Urine Protein <15 mg/dl mg/dL (Negative) 03/10/19 14:38 Urine Glucose (UA) Neg mg/dL (Negative) 03/10/19 14:38 Urine Ketones Neg mg/dL (Negative) 03/10/19 14:38 Urine Blood Neg (Negative) 03/10/19 14:38 Urine Nitrite Neg (Negative) 03/10/19 14:38 Urine Bilirubin Neg (Negative) 03/10/19 14:38 Urine Urobilinogen < 2.0 mg/dL (<2.0) 03/10/19 14:38 Ur Leukocyte Esterase Sm (Negative) 03/10/19 14:38 Urine WBC (Auto) 9.0 /HPF (0.0-6.0) H 03/10/19 14:38 Urine RBC (Auto) 2.0 /HPF (0.0-6.0) 03/10/19 14:38 U Epithel Cells (Auto) 1.0 /HPF (0-13.0) 03/10/19 14:38 Urine Bacteria (Auto) 2+ /HPF (Negative) 03/10/19 14:38 Urine Mucus Few /HPF 03/10/19 14:38 Vancomycin Trough 39.7 ug/mL (5.0-20.0) H 03/13/19 05:58 Active Medications - Current Medications Current Medications: Generic Name Dose Route Start Last Admin Trade Name Freq PRN Reason Stop Dose Admin Acetaminophen 650 mg 03/10/19 17:46 Tylenol PO Q4H PRN Pain MILD(1-3)/Fever >100.5/GUERRERO Albuterol 2.5 mg 03/11/19 03:52 Proventil IH TID PRN Wheezing Albuterol/Ipratropium 1 ampul 03/11/19 08:00 03/13/19 07:41 Duoneb *Not For Prn Use* IH 1 ampul Q6HRT CONNIE Administration Amlodipine Besylate 5 mg 03/11/19 10:00 03/13/19 09:28 Amlodipine PO 5 mg QDAY CONNIE Administration Lipase/Protease/Amylase 1 each 03/12/19 11:12 Pancremartine Sahni 10,500 Unit FEEDTUBE PRN PRN For Clogged Feeding Tube Chlordiazepoxide HCl 25 mg 03/11/19 10:00 03/13/19 09:27 Librium PO 25 mg DAILY CONNIE Administration Dextrose 50 ml 03/10/19 22:27 03/10/19 22:52 D50w (25gm) Syringe IV 50 ml Q30MIN PRN Administration Hypoglycemia Fluticasone Propionate 50 mcg 03/11/19 10:00 03/13/19 09:28 Flonase NS 50 mcg QDAY CONNIE Administration Folic Acid 1 mg 03/11/19 10:00 03/13/19 09:27 Folvite PO 1 mg QDAY CONNIE Administration Haloperidol 0.5 mg 03/11/19 03:52 03/12/19 09:32 Haldol PO 0.5 mg Q6H PRN Administration Agitation Sodium Chloride 1,000 mls @ 75 mls/hr 03/10/19 18:00 03/10/19 21:59 Nacl 0.9% 1000 Ml IV 75 mls/hr DIRECT CONNIE Administration Dextrose 1,000 mls @ 100 mls/hr 03/11/19 05:00 03/13/19 05:26 D5w IV 100 mls/hr DIRECT CONNIE Administration Insulin Human Lispro 0 unit 03/11/19 00:00 03/13/19 12:49 Humalog SUB-Q Not Given Q6HR [facility] Protocol Lactulose 20 gm 03/11/19 04:00 03/13/19 03:09 Cephulac PO 20 gm Q12H CONNIE Administration Morphine Sulfate 2 mg 03/10/19 17:56 03/11/19 05:04 Morphine IV 2 mg Q4H PRN Administration Pain, Moderate (4-6) Ondansetron HCl 4 mg 03/10/19 17:46 03/11/19 05:04 Zofran IV 4 mg Q8H PRN Administration Nausea And Vomiting Rifaximin 550 mg 03/11/19 10:00 03/13/19 09:27 Xifaxan PO 550 mg BID CONNIE Administration Simple Syrup 15 ml 03/12/19 11:12 Simple Syrup FEEDTUBE PRN PRN Hypoglycemia Simple Syrup 30 ml 03/12/19 11:12 Simple Syrup FEEDTUBE PRN PRN Hypoglycemia Sodium Bicarbonate 325 mg 03/12/19 11:12 Sodium Bicarbonate FEEDTUBE PRN PRN For Clogged Feeding Tube Sodium Chloride 10 ml 03/10/19 22:00 03/13/19 09:27 Sodium Chloride Flush Syringe 10 Ml IV 10 ml BID CONNIE Administration Sodium Chloride 10 ml 03/10/19 17:46 Sodium Chloride Flush Syringe 10 Ml IV PRN PRN LINE FLUSH Thiamine HCl 100 mg 03/11/19 10:00 03/13/19 09:27 Vitamin B-1 PO 100 mg QDAY CONNIE Administration Nutrition/Malnutrition Assess - Dietary Evaluation Nutrition/Malnutrition Findings: Nutrition Notes Start: 03/11/19 10:01 Freq: Status: Active Protocol: Document 03/12/19 11:00 ASHLEY (Rec: 03/12/19 11:12 [id number]) Nutrition Notes Need for Assessment generated from: MD Order Initial or Follow up Assessment Current Diagnosis COPD,Decubitus(Pressure Ulcer) ,Hypertension Other Pertinent Diagnosis AMS/nonverbal, Hep C, Anemia, Renal stones Current Diet Pureed Labs/Tests K: 5.6 Pertinent Medications albuterol D5W at 100ml/hr Height 5 ft 3 in Weight 77.56 kg [place] Body Weight (kg) 52.27 BMI 30.2 Weight Status Obese Subjective/Other Information MD consult to write/manage TF. RD to trial Nepro, as kidney labs are trending high Percent of energy/protein needs met: 0%/0% Minimum of two criteria No Reduced [employer] And Repairer Strength Measurably Reduced (severe) #1 Nutrition Diagnosis Inadequate oral intake As Evidenced by Signs and Symptoms Pt now requiring TF Diagnosis Progress(for reassessment Continues documentation) Is patient on ventilator? No Is Patient Ambulatory and/or Out of Bed No REE-([facility]-confined to bed) [phone] Calculation Used for Recommendations [facility] Additional Notes PRO needs: 64-77g/day (1-1.2g/ kg/AdBW 64.5kg) Fluids: 1ml/kcal or per MD Nutrition Intervention Change Diet Order: TF Nutrition Support: Nepro 1.8 at 35ml/hr Water flush of 150ml q4h Kcal 1,512 Protein (gm) 68 Fluid (mL) 611 Goal #1 TF initiation Goal #2 TF to meet at least 80% of estimated energy and protein needs. Anticipated Discharge Needs: Unknown Follow-Up By: 03/14/19 Additional Comments F/u for TF tolerance, K+ labs
[2019-03-14] MEDS: INSULIN LISPRO 100 UNIT/ML SUB-Q SCH ×4 (00:35→17:55)
[2019-03-14] MEDS: DEXTROSE 5% IN WATER 1,000 ML IV SCH (01:38)
[2019-03-14] MEDS: IPRATROPIUM/ALBUTEROL SULFATE 3 ML AMPUL.NEB IH SCH ×5 (01:41→20:57)
[2019-03-14] MEDS: LACTULOSE 20 GM/30 ML ORAL LIQD PO SCH ×2 (03:05→16:42)
[2019-03-14] MEDS ORDERED: CALCIUM CHLORIDE 1,000 MG/10 ML SYRINGE IV ONE (06:45)
[2019-03-14] MEDS ORDERED: LIP THERAPY VASELINE TP PRN (06:51)
[2019-03-14] MEDS ORDERED: MINERAL OIL/PETROLATUM, WHITE OPHTH OINT 3.5 GM OU PRN (06:51)
[2019-03-14] MEDS ORDERED: PROPOFOL 1,000 MG/100 ML BOTTLE IV SCH (07:00)
--- NOTE | 2019-03-14 07:16 | XRay Report ---
CHEST 1 VIEW INDICATION: ETT placement. COMPARISON: 03/10/2019 FINDINGS: Support devices: Endotracheal tube below the level of clavicles in the distal trachea. Dobbhoff tube is incompletely visualized on this exam; however, the tip remains curled in the proximal stomach and should be repositioned at least 10 cm distally into the duodenum. Heart: Within normal limits. Lungs/Pleura: Mild interstitial edema. Additional findings: None. IMPRESSION: 1. Support devices as above. 2. Mild interstitial edema. Signer Name: Roscoe Kaiser MD Signed: 03/14/2019 7:12 AM Workstation Name: [id number]
--- NOTE | 2019-03-14 07:29 | Event Note ---
Date: 03/14/19 JANNY SAUL WAS CALLED ON PATIENT AT ABOUT 6.40A.M AFTER THE NURSE NOTICED VOMITING WITH RESPIRATORY DISTRESS. ON ARRIVAL , CPR WAS IN PROGRESS AND PATIENT WAS BEING SUCTIONED AND BAGGED. 1 DOSE OF EPINEPHRINE WAS GIVEN I.V AND VITAL SIGN RESTORED. PATIENT WAS SUBSEQUENTLY INTUBATED AND PULSE AND BLOOD PRESSURE RESTORED. VITAL SIGN ; BP =138/83. T= 96 F, P= 69 PATIENT WAS TRANSFERED TO ICU WITH VENTILATOR SETTINGS, LABS (CBC, CMP,CARDIACS, BLOOD CULTURE ), CHEST X-RAY ORDERED. PATIENT WAS ALSO PLACED ON I.V ZOSYN AFTER CHEST X-RAY SHOWED BILATERAL PATCHY OPACITY . CRITICAL CARE CONSULT WAS PLACED ON PATIENT WHO REMAINED STABLE .
--- NOTE | 2019-03-14 07:54 | Hem/Onc Progress Note ---
Assessment and Plan 1. Leukopenia and the patient has a history of liver disease and alcohol usage. These may have a role. Thrombocytopenia may have a similar reason. Deficiency investigations. In January, B12 was 1400, folate 13. 2. Encephalopathy, being treated for sepsis. 3. History of electrolyte imbalance. 4. History of hypertension. 5. History of chronic obstructive pulmonary disease. 6. AST, ALT abnormality. 7. The patient was placed on reverse isolation. I will follow the patient during inpatient stay. wbc better - but pt on vent - Patient Problems (1) Leukopenia Current Visit: Yes Status: Acute Qualifiers: Leukopenia type: unspecified Qualified Code(s): D72.819 - Decreased white blood cell count, unspecified Subjective Date of service: 03/14/19 Principal diagnosis: low wbc Interval history: transfered to ICU - on vent Objective - Exam Narrative Exam: Pain - on vent General appearance - intubated Performance status - complete dependence Eyes - no icterus, ENT - no bleeding LNs cervical not palpable Neck - no LN Respiratory Normal Breath sounds - CTA anteriorly CVS S1 S2 + Extremities edema+ General GI Soft Rectal deferred female - deferred Skin warm Musculoskeletal on vent Neurologically intubated - Constitutional Vitals: Last Vital Signs Temp 98.1 F 03/14/19 02:28 Pulse 95 H 03/14/19 04:31 Resp 18 03/14/19 02:28 BP 96/48 03/14/19 02:28 Pulse Ox 97 03/14/19 02:28 - Labs Lab Results: Laboratory Results - last 24 hr 03/13/19 03/13/19 03/14/19 12:12 18:00 00:17 POC Glucose 116 H 132 H 130 H Random Vancomycin 03/14/19 03/14/19 03/14/19 05:24 05:44 06:53 POC Glucose 110 H 98 Random Vancomycin 27.6 Medications & Allergies - Medications Allergies/Adverse Reactions: Allergies No Known Allergies Allergy (Verified 01/06/17 23:38) Per son Home Medications: Home Medications Medication Instructions Recorded Confirmed Last Taken Type Folic Acid [Folvite] 1 mg PO QDAY #30 tablet 08/12/18 03/10/19 03/09/19 Rx Haloperidol [Haldol] 0.5 mg PO Q6H PRN #30 tablet 08/12/18 03/10/19 03/10/19 Rx Lactulose [Cephulac] 20 gm PO Q12H #1 bottle 08/12/18 03/10/19 03/09/19 Rx Rifaximin [Xifaxan] 550 mg PO BID #60 tablet 08/12/18 03/10/19 03/09/19 Rx Thiamine [Vitamin B-1] 100 mg PO QDAY #30 tablet 08/12/18 03/10/19 03/09/19 Rx amLODIPine 5 mg PO QDAY #30 tablet 08/12/18 03/10/19 03/09/19 Rx chlordiazePOXIDE [Librium] 25 mg PO DAILY #3 capsule 08/12/18 03/10/19 03/09/19 Rx ALBUTEROL NEB's [Proventil] 2.5 mg IH TID PRN 02/06/19 03/10/19 03/09/19 History Acetaminophen [Tylenol] 650 mg PO Q6HR PRN 02/06/19 03/10/19 03/09/19 History Fluticasone [Flonase] 1 spray NS QDAY 02/06/19 03/10/19 03/09/19 History Ipratropium/Albuterol Sulfate 1 spray IH QID 02/06/19 03/10/19 03/09/19 History [Combivent Respimat] Melatonin [Melatonin 10MG CAP] 10 mg PO QHS 02/06/19 03/10/19 03/09/19 History Active Medications: Generic Name Dose Route Start Last Admin Trade Name Freq PRN Reason Stop Dose Admin Acetaminophen 650 mg 03/10/19 17:46 Tylenol PO Q4H PRN Pain MILD(1-3)/Fever >100.5/GUERRERO Albuterol 2.5 mg 03/11/19 03:52 Proventil IH TID PRN Wheezing Albuterol/Ipratropium 1 ampul 03/11/19 08:00 03/14/19 01:41 Duoneb *Not For Prn Use* IH 1 ampul Q6HRT CONNIE Administration Lipase/Protease/Amylase 1 each 03/12/19 11:12 Pancremartine Sahni 10,500 Unit FEEDTUBE PRN PRN For Clogged Feeding Tube Chlordiazepoxide HCl 25 mg 03/11/19 10:00 03/13/19 09:27 Librium PO 25 mg DAILY CONNIE Administration Dextrose 50 ml 03/10/19 22:27 03/10/19 22:52 D50w (25gm) Syringe IV 50 ml Q30MIN PRN Administration Hypoglycemia Fluticasone Propionate 50 mcg 03/11/19 10:00 03/13/19 09:28 Flonase NS 50 mcg QDAY CONNIE Administration Folic Acid 1 mg 03/11/19 10:00 03/13/19 09:27 Folvite PO 1 mg QDAY CONNIE Administration Haloperidol 0.5 mg 03/11/19 03:52 03/12/19 09:32 Haldol PO 0.5 mg Q6H PRN Administration Agitation Hydrophilic Ointment 1 applic 03/14/19 06:51 Vaseline Lip Therapy TP Q2HR PRN Dry Lips Dextrose 1,000 mls @ 100 mls/hr 03/11/19 05:00 03/14/19 01:38 D5w IV 100 mls/hr DIRECT CONNIE Administration Propofol 1,000 mg in 100 mls @ 2.587 mls/hr 03/14/19 07:00 Diprivan 10 Mg/Ml IV TITR CONNIE Protocol 5 MCG/KG/MIN Piperacillin Sod/Tazobactam Sod 4.5 gm in 100 mls @ 200 mls/hr 03/14/19 08:00 Zosyn/Ns 4.5gm/100ml IV Q6HR [facility] Protocol Insulin Human Lispro 0 unit 03/11/19 00:00 03/14/19 07:18 Humalog SUB-Q Not Given Q6HR [facility] Protocol Lactulose 20 gm 03/11/19 04:00 03/14/19 03:05 Cephulac PO 20 gm Q12H CONNIE Administration Morphine Sulfate 2 mg 03/10/19 17:56 03/11/19 05:04 Morphine IV 2 mg Q4H PRN Administration Pain, Moderate (4-6) Multi-Ingred Cream/Lotion/Oil/Oint 1 applic 03/14/19 06:51 Artificial Tears Ophth Oint OU Q4HR PRN Dry Eye(s) Ondansetron HCl 4 mg 03/10/19 17:46 03/11/19 05:04 Zofran IV 4 mg Q8H PRN Administration Nausea And Vomiting Rifaximin 550 mg 03/11/19 10:00 03/13/19 22:50 Xifaxan PO 550 mg BID CONNIE Administration Simple Syrup 15 ml 03/12/19 11:12 Simple Syrup FEEDTUBE PRN PRN Hypoglycemia Simple Syrup 30 ml 03/12/19 11:12 Simple Syrup FEEDTUBE PRN PRN Hypoglycemia Sodium Bicarbonate 325 mg 03/12/19 11:12 Sodium Bicarbonate FEEDTUBE PRN PRN For Clogged Feeding Tube Sodium Chloride 10 ml 03/10/19 22:00 03/14/19 00:34 Sodium Chloride Flush Syringe 10 Ml IV 10 ml BID CONNIE Administration Sodium Chloride 10 ml 03/10/19 17:46 03/13/19 22:50 Sodium Chloride Flush Syringe 10 Ml IV 10 ml PRN PRN Administration LINE FLUSH Thiamine HCl 100 mg 03/11/19 10:00 03/13/19 09:27 Vitamin B-1 PO 100 mg QDAY CONNIE Administration
[2019-03-14 08:02] LABS: Hematocrit 28.3 % (30.3-42.9); Hemoglobin 9.2 gm/dl (10.1-14.3); Mean Corpuscular HGB Conc 32 % (30-34); Mean Corpuscular Volume 94 fl (79-97); Platelet Count 44 K/mm3 (140-440); Red Cell Distribution Width 22.5 % (13.2-15.2)
[2019-03-14 08:13] LABS: Creatine Kinase MB 8.6 ng/mL (0.0-4.0)
[2019-03-14 08:14] LABS: Albumin 2.2 g/dL (3.9-5); Calcium 9.5 mg/dL (8.4-10.2)
[2019-03-14 08:40] LABS: Chol/HDL Ratio 3.09 %
[2019-03-14 10:13] LABS: Anisocytosis 1+; Band Neutrophils # (Manual) 0.1 K/mm3; Basophils % (Manual) 0 % (0.0-1.8); Macrocytosis 1+; Platelet Estimate Consistent w Auto; Total Cells Counted 100
[2019-03-14] MEDS: fentaNYL DRIP Premix 2,000 MCG/100 ML BAG IV SCH (11:00)
--- NOTE | 2019-03-14 11:33 | Progress Note ---
Assessment and Plan Assessment and plan: 68-year-old female with multiple medical problems including hep C, hypertension sent from longterm for altered mental status. Patient is responsive but doesn't answer questions. She has liver failure secondary to hepatitis C and alcoholism. 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 New sepsis evidenced by wbc<4k, HR>90, not POA -due to possible aspiration PNA -CXR reported as mild interstitial edema -sputum and blood cultures pending VRE UTI -IV cefepime and vancomycin discontinued -due to her severe thrombocytopenia, will hold off on Zyvox until pt seen by ID -ID consult pending Acute Metabolic encephalopathy with agitation - Probably due to the acute infection - head CT scan on 03/10 neg, repeat head CT scan today pending Acute on chronic Pancytopenia - continue to monitor levels - Oncology consulted Hypotension - likely due to the sepsis - monitor BP, may need IV pressor Hypernatremia - probably 2/2 dehydration - improved on IV D5W Hyperkalemia - s/p kayexalate, resolved Hypoglycemia -On hypoglycemic protocol KERRI -cont IVF, will monitor cr level H/o CLD -Continue lactulose and rifaximin Nutrition -tube feeding on hold due to aspiration -will repeat KUB for tube positioning DVT prophylaxis - On SCDs due to thrombocytopenia Disposition: condition is guarded Critical time spent: 35 mins History Interval history: Per report, pt aspirated this am and became unresponsive. CPR was done and she was intubated and transferred to the ICU Hospitalist Physical - Constitutional Vitals: Temp Pulse Resp BP Pulse Ox 98.1 F 87 24 85/55 98 03/14/19 02:28 03/14/19 11:21 03/14/19 11:21 03/14/19 11:21 03/14/19 11:21 General appearance: Present: no acute distress, other (mildly agitated) - EENT Eyes: Present: PERRL ENT: clear oral mucosa, other (pt is intubated and dubhoff tube noted) - Neck Neck: Present: supple - Respiratory Respiratory effort: normal Respiratory: bilateral: rales, wheezing - Cardiovascular Rhythm: regular Heart Sounds: Present: S1 & S2 - Extremities Extremities: No edema - Abdominal General gastrointestinal: soft, non-tender, non-distended, normal bowel sounds - Psychiatric Psychiatric: other (could not be assessed because pt is intubated and sedated) - Neurologic Neurologic: other (could not be assessed because pt is intubated and sedated) Results - Labs CBC & Chem 7: 03/14/19 06:44 03/14/19 06:44 Labs: Laboratory Last Values WBC 2.6 K/mm3 (4.5-11.0) L 03/14/19 06:44 RBC 3.00 M/mm3 (3.65-5.03) L 03/14/19 06:44 Hgb 9.2 gm/dl (10.1-14.3) L 03/14/19 06:44 Hct 28.3 % (30.3-42.9) L 03/14/19 06:44 MCV 94 fl (79-97) 03/14/19 06:44 MCH 31 pg (28-32) 03/14/19 06:44 MCHC 32 % (30-34) 03/14/19 06:44 RDW 22.5 % (13.2-15.2) H 03/14/19 06:44 Plt Count 44 K/mm3 (140-440) L 03/14/19 06:44 Lymph % (Auto) Refinery Operator Helper 03/12/19 08:55 [place] % (Auto) Refinery Operator Helper 03/12/19 08:55 Eos % (Auto) Refinery Operator Helper 03/12/19 08:55 Baso % (Auto) Refinery Operator Helper 03/12/19 08:55 Lymph # Refinery Operator Helper 03/12/19 08:55 [place] # Refinery Operator Helper 03/12/19 08:55 Eos # Refinery Operator Helper 03/12/19 08:55 Baso # Refinery Operator Helper 03/12/19 08:55 Add Manual Diff Complete 03/14/19 06:44 Total Counted 100 03/14/19 06:44 Seg Neutrophils % Refinery Operator Helper 03/12/19 08:55 Seg Neuts % (Manual) 75.0 % (40.0-70.0) H 03/14/19 06:44 Band Neutrophils % 2.0 % 03/14/19 06:44 Lymphocytes % (Manual) 14.0 % (13.4-35.0) 03/14/19 06:44 Reactive Lymphs % (Man) 0 % 03/14/19 06:44 Monocytes % (Manual) 4.0 % (0.0-7.3) 03/14/19 06:44 Eosinophils % (Manual) 5.0 % (0.0-4.3) H 03/14/19 06:44 Basophils % (Manual) 0 % (0.0-1.8) 03/14/19 06:44 Metamyelocytes % 0 % 03/14/19 06:44 Myelocytes % 0 % 03/14/19 06:44 Promyelocytes % 0 % 03/14/19 06:44 Blast Cells % 0 % 03/14/19 06:44 Nucleated RBC % 19.0 % (0.0-0.9) H 03/14/19 06:44 Seg Neutrophils # Refinery Operator Helper 03/12/19 08:55 Seg Neutrophils # Man 2.0 K/mm3 (1.8-7.7) 03/14/19 06:44 Band Neutrophils # 0.1 K/mm3 03/14/19 06:44 Lymphocytes # (Manual) 0.4 K/mm3 (1.2-5.4) L 03/14/19 06:44 Abs React Lymphs (Man) 0.0 K/mm3 03/14/19 06:44 Monocytes # (Manual) 0.1 K/mm3 (0.0-0.8) 03/14/19 06:44 Eosinophils # (Manual) 0.1 K/mm3 (0.0-0.4) 03/14/19 06:44 Basophils # (Manual) 0.0 K/mm3 (0.0-0.1) 03/14/19 06:44 Metamyelocytes # 0.0 K/mm3 03/14/19 06:44 Myelocytes # 0.0 K/mm3 03/14/19 06:44 Promyelocytes # 0.0 K/mm3 03/14/19 06:44 Blast Cells # 0.0 K/mm3 03/14/19 06:44 WBC Morphology Not Reportable 03/14/19 06:44 Hypersegmented Neuts Not Reportable 03/14/19 06:44 Hyposegmented Neuts Not Reportable 03/14/19 06:44 Hypogranular Neuts Not Reportable 03/14/19 06:44 Smudge Cells Not Reportable 03/14/19 06:44 Toxic Granulation Not Reportable 03/14/19 06:44 Toxic Vacuolation Not Reportable 03/14/19 06:44 Dohle Bodies Not Reportable 03/14/19 06:44 Pelger-Huet Anomaly Not Reportable 03/14/19 06:44 Sheila Rods Not Reportable 03/14/19 06:44 Platelet Estimate Consistent w auto 03/14/19 06:44 Clumped Platelets Not Reportable 03/14/19 06:44 Plt Clumps, EDTA Not Reportable 03/14/19 06:44 Large Platelets Not Reportable 03/14/19 06:44 Giant Platelets Not Reportable 03/14/19 06:44 Platelet Satelliting Not Reportable 03/14/19 06:44 Plt Morphology Comment Not Reportable 03/14/19 06:44 RBC Morphology Not Reportable 03/14/19 06:44 Dimorphic RBCs Not Reportable 03/14/19 06:44 Polychromasia Not Reportable 03/14/19 06:44 Hypochromasia Not Reportable 03/14/19 06:44 Poikilocytosis Not Reportable 03/14/19 06:44 Anisocytosis 1+ 03/14/19 06:44 Microcytosis Not Reportable 03/14/19 06:44 Macrocytosis 1+ 03/14/19 06:44 Spherocytes Not Reportable 03/14/19 06:44 Pappenheimer Bodies Not Reportable 03/14/19 06:44 Sickle Cells Not Reportable 03/14/19 06:44 Target Cells Not Reportable 03/14/19 06:44 Tear Drop Cells Not Reportable 03/14/19 06:44 Ovalocytes Not Reportable 03/14/19 06:44 Helmet Cells Not Reportable 03/14/19 06:44 Ann-Hallam Bodies Not Reportable 03/14/19 06:44 [place] Rings Not Reportable 03/14/19 06:44 [place] Cells Not Reportable 03/14/19 06:44 Bite Cells Not Reportable 03/14/19 06:44 Crenated Cell Not Reportable 03/14/19 06:44 Elliptocytes Not Reportable 03/14/19 06:44 Acanthocytes (Spur) Not Reportable 03/14/19 06:44 Rouleaux Not Reportable 03/14/19 06:44 Hemoglobin C Crystals Not Reportable 03/14/19 06:44 Schistocytes Not Reportable 03/14/19 06:44 Malaria parasites Not Reportable 03/14/19 06:44 [place] Bodies Not Reportable 03/14/19 06:44 Hem Pathologist Commnt No 03/14/19 06:44 POC ABG pH 7.283 (7.35-7.45) L 03/14/19 09:05 POC ABG pCO2 54.9 (35-45) H 03/14/19 09:05 POC ABG pO2 76 (80-105) L 03/14/19 09:05 POC ABG HCO3 26.0 (22-26 mml/L) 03/14/19 09:05 POC ABG Total CO2 28 (23-27mmol/L) 03/14/19 09:05 POC ABG O2 Sat 93 03/14/19 09:05 POC ABG Base Excess -1 ((-2) - (+3)mmol/L) 03/14/19 09:05 FiO2 50 % 03/14/19 09:05 Sodium 140 mmol/L (137-145) 03/14/19 06:44 Potassium 4.6 mmol/L (3.6-5.0) 03/14/19 06:44 Chloride 110.2 mmol/L (98-107) H 03/14/19 06:44 Carbon Dioxide 21 mmol/L (22-30) L 03/14/19 06:44 Anion Gap 13 mmol/L 03/14/19 06:44 BUN 14 mg/dL (7-17) 03/14/19 06:44 Creatinine 1.3 mg/dL (0.7-1.2) H 03/14/19 06:44 Estimated GFR 50 ml/min 03/14/19 06:44 BUN/Creatinine Ratio 11 % 03/14/19 06:44 Glucose 96 mg/dL (65-100) 03/14/19 06:44 POC Glucose 98 (70-105) 03/14/19 06:53 Hemoglobin A1c 4.6 % (4-6) 03/10/19 13:16 Lactic Acid 0.80 mmol/L (0.7-2.0) 03/10/19 16:52 Calcium 9.5 mg/dL (8.4-10.2) 03/14/19 06:44 Total Bilirubin 0.50 mg/dL (0.1-1.2) 03/14/19 06:44 AST 144 units/L (5-40) H 03/14/19 06:44 ALT 90 units/L (7-56) H 03/14/19 06:44 Alkaline Phosphatase 226 units/L (35-129) H 03/14/19 06:44 Ammonia 54.0 umol/L (25-60) 03/11/19 07:29 Total Creatine Kinase 120 units/L (30-135) 03/14/19 06:44 CK-MB (CK-2) 8.6 ng/mL (0.0-4.0) H 03/14/19 06:44 CK-MB (CK-2) Rel Index 7.1 (0-4) H 03/14/19 06:44 Troponin T 0.056 ng/mL (0.00-0.029) H D 03/14/19 06:44 Total Protein 6.7 g/dL (6.3-8.2) 03/14/19 06:44 Albumin 2.2 g/dL (3.9-5) L 03/14/19 06:44 Albumin/Globulin Ratio 0.5 % 03/14/19 06:44 Triglycerides 62 mg/dL (2-149) 03/14/19 06:44 Cholesterol 133 mg/dL (50-199) 03/14/19 06:44 LDL Cholesterol Direct 89 mg/dL (50-130) 03/14/19 06:44 HDL Cholesterol 43 mg/dL (40-59) 03/14/19 06:44 Cholesterol/HDL Ratio 3.09 % 03/14/19 06:44 Urine Color Straw (Yellow) 03/10/19 14:38 Urine Turbidity Clear (Clear) 03/10/19 14:38 Urine pH 7.0 (5.0-7.0) 03/10/19 14:38 Ur Specific [place] 1.009 (1.003-1.030) 03/10/19 14:38 Urine Protein <15 mg/dl mg/dL (Negative) 03/10/19 14:38 Urine Glucose (UA) Neg mg/dL (Negative) 03/10/19 14:38 Urine Ketones Neg mg/dL (Negative) 03/10/19 14:38 Urine Blood Neg (Negative) 03/10/19 14:38 Urine Nitrite Neg (Negative) 03/10/19 14:38 Urine Bilirubin Neg (Negative) 03/10/19 14:38 Urine Urobilinogen < 2.0 mg/dL (<2.0) 03/10/19 14:38 Ur Leukocyte Esterase Sm (Negative) 03/10/19 14:38 Urine WBC (Auto) 9.0 /HPF (0.0-6.0) H 03/10/19 14:38 Urine RBC (Auto) 2.0 /HPF (0.0-6.0) 03/10/19 14:38 U Epithel Cells (Auto) 1.0 /HPF (0-13.0) 03/10/19 14:38 Urine Bacteria (Auto) 2+ /HPF (Negative) 03/10/19 14:38 Urine Mucus Few /HPF 03/10/19 14:38 Vancomycin Trough 39.7 ug/mL (5.0-20.0) H 03/13/19 05:58 Random Vancomycin 27.6 ug/mL (0-40.0) 03/14/19 05:44 Active Medications - Current Medications Current Medications: Generic Name Dose Route Start Last Admin Trade Name Freq PRN Reason Stop Dose Admin Acetaminophen 650 mg 03/10/19 17:46 Tylenol PO Q4H PRN Pain MILD(1-3)/Fever >100.5/GUERRERO Albuterol 2.5 mg 03/11/19 03:52 Proventil IH TID PRN Wheezing Albuterol/Ipratropium 1 ampul 03/11/19 08:00 03/14/19 09:34 Duoneb *Not For Prn Use* IH 1 ampul Q6HRT CONNIE Administration Lipase/Protease/Amylase 1 each 03/12/19 11:12 Pancremartine Sahni 10,500 Unit FEEDTUBE PRN PRN For Clogged Feeding Tube Chlordiazepoxide HCl 25 mg 03/11/19 10:00 03/13/19 09:27 Librium PO 25 mg DAILY CONNIE Administration Dextrose 50 ml 03/10/19 22:27 03/10/19 22:52 D50w (25gm) Syringe IV 50 ml Q30MIN PRN Administration Hypoglycemia Fluticasone Propionate 50 mcg 03/11/19 10:00 03/13/19 09:28 Flonase NS 50 mcg QDAY CONNIE Administration Folic Acid 1 mg 03/11/19 10:00 03/13/19 09:27 Folvite PO 1 mg QDAY CONNIE Administration Haloperidol 0.5 mg 03/11/19 03:52 03/12/19 09:32 Haldol PO 0.5 mg Q6H PRN Administration Agitation Hydrophilic Ointment 1 applic 03/14/19 06:51 Vaseline Lip Therapy TP Q2HR PRN Dry Lips Dextrose 1,000 mls @ 100 mls/hr 03/11/19 05:00 03/14/19 01:38 D5w IV 100 mls/hr DIRECT CONNIE Administration Propofol 1,000 mg in 100 mls @ 2.587 mls/hr 03/14/19 07:00 03/14/19 11:15 Diprivan 10 Mg/Ml IV 5 mcg/kg/min TITR CONNIE 2.587 mls/hr Titration Protocol 5 MCG/KG/MIN Piperacillin Sod/Tazobactam Sod 4.5 gm in 100 mls @ 200 mls/hr 03/14/19 08:00 Zosyn/Ns 4.5gm/100ml IV Q6HR [facility] Protocol Fentanyl Citrate 2,000 mcg in 100 mls @ 4.312 mls/hr 03/14/19 11:00 03/14/19 11:30 Fentanyl Drip Premix IV 3 mcg/kg/hr TITR CONNIE 12.935 mls/hr Titration Protocol 1 MCG/KG/HR Insulin Human Lispro 0 unit 03/11/19 00:00 03/14/19 07:18 Humalog SUB-Q Not Given Q6HR [facility] Protocol Lactulose 20 gm 03/11/19 04:00 03/14/19 03:05 Cephulac PO 20 gm Q12H CONNIE Administration Morphine Sulfate 2 mg 03/10/19 17:56 03/11/19 05:04 Morphine IV 2 mg Q4H PRN Administration Pain, Moderate (4-6) Multi-Ingred Cream/Lotion/Oil/Oint 1 applic 03/14/19 06:51 Artificial Tears Ophth Oint OU Q4HR PRN Dry Eye(s) Ondansetron HCl 4 mg 03/10/19 17:46 03/11/19 05:04 Zofran IV 4 mg Q8H PRN Administration Nausea And Vomiting Rifaximin 550 mg 03/11/19 10:00 03/13/19 22:50 Xifaxan PO 550 mg BID CONNIE Administration Simple Syrup 15 ml 03/12/19 11:12 Simple Syrup FEEDTUBE PRN PRN Hypoglycemia Simple Syrup 30 ml 03/12/19 11:12 Simple Syrup FEEDTUBE PRN PRN Hypoglycemia Sodium Bicarbonate 325 mg 03/12/19 11:12 Sodium Bicarbonate FEEDTUBE PRN PRN For Clogged Feeding Tube Sodium Chloride 10 ml 03/10/19 22:00 03/14/19 00:34 Sodium Chloride Flush Syringe 10 Ml IV 10 ml BID CONNIE Administration Sodium Chloride 10 ml 03/10/19 17:46 03/13/19 22:50 Sodium Chloride Flush Syringe 10 Ml IV 10 ml PRN PRN Administration LINE FLUSH Thiamine HCl 100 mg 03/11/19 10:00 03/13/19 09:27 Vitamin B-1 PO 100 mg QDAY CONNIE Administration Nutrition/Malnutrition Assess - Dietary Evaluation Nutrition/Malnutrition Findings: Nutrition Notes Start: 03/11/19 10:01 Freq: Status: Active Protocol: Document 03/14/19 11:11 LM (Rec: 03/14/19 11:30 LM [id number]) Nutrition Notes Initial or Follow up Reassessment Current Diagnosis COPD,Decubitus(Pressure Ulcer) ,Hypertension Other Pertinent Diagnosis AMS/nonverbal, Hep C, Anemia, Renal stones Current Diet Nepro 1.8 at 35 ml/hr Labs/Tests Cr 1.8 GFR 50 Pertinent Medications Propofol at 2.587 ml/hr ( provides 68 kcal) Height 5 ft 3 in Weight 86.23 kg [place] Body Weight (kg) 52.27 BMI 33.6 Weight change and time frame wt change noted. Wt taken from bedscale this AM. Weight Status Obese Subjective/Other Information Pt tranferred to CCU. Pt coded and intubated. Percent of energy/protein needs met: 0%/0% Minimum of two criteria No #1 Nutrition Diagnosis Inadequate oral intake Diagnosis Progress(for reassessment Continues documentation) Is patient on ventilator? Yes Is Patient Ambulatory and/or Out of Bed No REE-([facility]-confined to bed) 5108.008 Calculation Used for Recommendations [facility] Additional Notes Protein: >105 g (>2g/kg IBW 52 .27 kg) Fluids: 1 ml/kcal or per Nutrition Intervention Change Diet Order: TF Nutrition Support: Nepro 1.8 at 35ml/hr Water flush of 150ml q4h Kcal 1,512 Protein (gm) 68 Fluid (mL) 611
[2019-03-14] MEDS: PIPERACIL/TAZOBACTA 4.5/NS 100 4.5 GM/100 ML VIAL IV SCH ×3 (13:01→17:56)
[2019-03-14] MEDS: FLUTICASONE PROPIONATE NASAL SPRAY 16 GM NS SCH (13:21)
[2019-03-14] MEDS ORDERED: SIMPLE SYRUP 15 ML FEEDTUBE PRN ×2 (13:25)
[2019-03-14] MEDS ORDERED: LIPASE 10,500/PROTEASE 25,000/AMYLASE 43,750 (UNITS) DR CAP FEEDTUBE PRN (13:25)
[2019-03-14] MEDS ORDERED: SODIUM BICARBONATE 325 MG TAB FEEDTUBE PRN (13:25)
[2019-03-14] MEDS: DEXTROSE 50% IN WATER (25GM) 50 ML SYRINGE IV PRN ×2 (13:33→17:55)
--- NOTE | 2019-03-14 13:43 | XRay Report ---
ABDOMEN 1 VIEW 1:14 PM INDICATION / CLINICAL INFORMATION: Dobbhoff placement. COMPARISON: 03/12/2019. FINDINGS: TUBES / LINES: The tip of the weighted enteric feeding tube overlies the proximal stomach, similar in appearance to the prior study. BOWEL GAS PATTERN: No significant abnormality. FREE AIR / EXTRALUMINAL GAS: None seen. ADDITIONAL FINDINGS: No significant additional findings. IMPRESSION: Feeding tube tip overlies the proximal stomach. Signer Name: Julio Gutierrez MD Signed: 03/14/2019 1:38 PM Workstation Name: [id number]
[2019-03-14] MEDS ORDERED: SODIUM CHLORIDE 0.9% 1000 ML 1,000 ML IV ONE ×3 (13:51→18:00)
[2019-03-14] MEDS: D5W/0.9% NACL 1,000 ML IV SCH (14:04)
[2019-03-14] MEDS: VASOPRESSIN 20 UNIT in SODIUM CHLORIDE 0.9% 100 ML IV SCH (15:48)
--- NOTE | 2019-03-14 15:50 | Consultation ---
History of Present Illness - Reason for Consult Consult date: 03/14/19 - History of Present Illness Ms Jones is a 68 yo F who is the [facility] of a [facility] who was admitted to the hospital for complaints of altered mental status. She has a multitude of medical problems, and is minimally responsive at baseline. She is noted to have a history of DM2 and hepatitis C. Afebrile since admission and neutropenic, which has since improved. urine cultures positive for VRE faecium. She is currently on vanc and Zosyn. Imaging personally reviewed: CXR - interstitial edema Past History Past Medical History: hepatitis Past Surgical History: Other (Unabel to obtain secondary to mental status) Social history: other (Unabel to obtain secondary to mental status) Family history: other (Unabel to obtain secondary to mental status) Medications and Allergies Allergies Allergy/AdvReac Type Severity Reaction Status Date / Time No Known Allergies Allergy Verified 01/06/17 23:38 Home Medications Medication Instructions Recorded Confirmed Last Taken Type Folic Acid [Folvite] 1 mg PO QDAY #30 tablet 08/12/18 03/10/19 03/09/19 Rx Haloperidol [Haldol] 0.5 mg PO Q6H PRN #30 tablet 08/12/18 03/10/19 03/10/19 Rx Lactulose [Cephulac] 20 gm PO Q12H #1 bottle 08/12/18 03/10/19 03/09/19 Rx Rifaximin [Xifaxan] 550 mg PO BID #60 tablet 08/12/18 03/10/19 03/09/19 Rx Thiamine [Vitamin B-1] 100 mg PO QDAY #30 tablet 08/12/18 03/10/19 03/09/19 Rx amLODIPine 5 mg PO QDAY #30 tablet 08/12/18 03/10/19 03/09/19 Rx chlordiazePOXIDE [Librium] 25 mg PO DAILY #3 capsule 08/12/18 03/10/19 03/09/19 Rx ALBUTEROL NEB's [Proventil] 2.5 mg IH TID PRN 02/06/19 03/10/19 03/09/19 History Acetaminophen [Tylenol] 650 mg PO Q6HR PRN 02/06/19 03/10/19 03/09/19 History Fluticasone [Flonase] 1 spray NS QDAY 02/06/19 03/10/19 03/09/19 History Ipratropium/Albuterol Sulfate 1 spray IH QID 02/06/19 03/10/19 03/09/19 History [Combivent Respimat] Melatonin [Melatonin 10MG CAP] 10 mg PO QHS 02/06/19 03/10/19 03/09/19 History Active Meds: Active Medications Acetaminophen (Tylenol) 650 mg PO Q4H PRN PRN Reason: Pain MILD(1-3)/Fever >100.5/GUERRERO Albuterol (Proventil) 2.5 mg IH TID PRN PRN Reason: Wheezing Albuterol/Ipratropium (Duoneb *Not For Prn Use*) 1 ampul IH Q6HRT [facility] Last Admin: 03/14/19 13:54 Dose: 1 ampul Documented by: Lipase/Protease/Amylase (Pancremartine Sahni 10,500 Unit) 1 each FEEDTUBE PRN PRN PRN Reason: For Clogged Feeding Tube Chlordiazepoxide HCl (Librium) 25 mg PO DAILY [facility] Last Admin: 03/13/19 09:27 Dose: 25 mg Documented by: Dextrose (D50w (25gm) Syringe) 50 ml IV Q30MIN PRN PRN Reason: Hypoglycemia Last Admin: 03/14/19 13:33 Dose: 15 ml Documented by: Fluticasone Propionate (Flonase) 50 mcg NS QDAY [facility] Last Admin: 03/14/19 13:21 Dose: Not Given Documented by: Folic Acid (Folvite) 1 mg PO QDAY [facility] Last Admin: 03/13/19 09:27 Dose: 1 mg Documented by: Haloperidol (Haldol) 0.5 mg PO Q6H PRN PRN Reason: Agitation Last Admin: 03/12/19 09:32 Dose: 0.5 mg Documented by: Hydrophilic Ointment (Vaseline Lip Therapy) 1 applic TP Q2HR PRN PRN Reason: Dry Lips Propofol (Diprivan 10 Mg/Ml) 1,000 mg in 100 mls @ 2.587 mls/hr IV TITR [facility]; Protocol Last Titration: 03/14/19 12:00 Dose: 0 mcg/kg/min, 0 mls/hr Documented by: Piperacillin Sod/Tazobactam Sod (Zosyn/Ns 4.5gm/100ml) 4.5 gm in 100 mls @ 200 mls/hr IV Q6HR CONNIE; Protocol Last Admin: 03/14/19 13:21 Dose: 200 mls/hr Documented by: Fentanyl Citrate (Fentanyl Drip Premix) 2,000 mcg in 100 mls @ 4.312 mls/hr IV TITR CONNIE; Protocol Last Titration: 03/14/19 14:04 Dose: 0 mcg/kg/hr, 0 mls/hr Documented by: Dextrose/Sodium Chloride (D5ns) 1,000 mls @ 100 mls/hr IV DIRECT CONNIE Last Admin: 03/14/19 14:04 Dose: 100 mls/hr Documented by: Vasopressin 20 unit/ Sodium (Chloride) 101 mls @ 9.09 mls/hr IV TITR CONNIE; Protocol Insulin Human Lispro (Humalog) 0 unit SUB-Q Q6HR CONNIE; Protocol Last Admin: 03/14/19 13:25 Dose: Not Given Documented by: Lactulose (Cephulac) 20 gm PO Q12H CONNIE Last Admin: 03/14/19 03:05 Dose: 20 gm Documented by: Morphine Sulfate (Morphine) 2 mg IV Q4H PRN PRN Reason: Pain, Moderate (4-6) Last Admin: 03/11/19 05:04 Dose: 2 mg Documented by: Multi-Ingred Cream/Lotion/Oil/Oint (Artificial Tears Ophth Oint) 1 applic OU Q4HR PRN PRN Reason: Dry Eye(s) Ondansetron HCl (Zofran) 4 mg IV Q8H PRN PRN Reason: Nausea And Vomiting Last Admin: 03/11/19 05:04 Dose: 4 mg Documented by: Rifaximin (Xifaxan) 550 mg PO BID [facility] Last Admin: 03/13/19 22:50 Dose: 550 mg Documented by: Simple Syrup (Simple Syrup) 15 ml FEEDTUBE PRN PRN PRN Reason: Hypoglycemia Simple Syrup (Simple Syrup) 30 ml FEEDTUBE PRN PRN PRN Reason: Hypoglycemia Sodium Bicarbonate (Sodium Bicarbonate) 325 mg FEEDTUBE PRN PRN PRN Reason: For Clogged Feeding Tube Sodium Chloride (Sodium Chloride Flush Syringe 10 Ml) 10 ml IV BID [facility] Last Admin: 03/14/19 00:34 Dose: 10 ml Documented by: Sodium Chloride (Sodium Chloride Flush Syringe 10 Ml) 10 ml IV PRN PRN PRN Reason: LINE FLUSH Last Admin: 03/13/19 22:50 Dose: 10 ml Documented by: Thiamine HCl (Vitamin B-1) 100 mg PO QDAY CONNIE Last Admin: 03/13/19 09:27 Dose: 100 mg Documented by: Review of Systems ROS unobtainable: due to mental status Physical Examination - Physical Exam Narrative exam: Constitutional: intubated, sedated Head, Ears, Nose: Normocephalic, atraumatic. External ears, nose normal Eyes: Conjunctivae/corneas clear. No icterus. No ptosis. Neck: Supple, no meningeal signs Oral: dentition fair, no thrush Cardiovascular: S1, S2 normal. Respiratory: Good air entry, clear to auscultation bilaterally GI: Soft, non-tender; bowel sounds normal. No peritoneal signs. Musculoskeletal: No pedal edema, no cyanosis. Skin: No rash or abscess Hem/Lymphatic: No palpable cervical or supraclavicular nodes. No lymphangitis Psych: Sedated Neurological: Intubated, sedated - Constitutional Vitals: Vital Signs Temp Pulse Resp BP Pulse Ox 97.9 F 90 16 82/48 100 03/14/19 12:00 03/14/19 15:11 03/14/19 15:11 03/14/19 15:11 03/14/19 15:11 Temperature -Last 24 Hours Temperature 97.9 F Temperature 98.1 F Temperature 97.9 F Results - Labs CBC & Chem 7: 03/14/19 06:44 03/14/19 06:44 Labs: Abnormal lab results 03/13/19 03/14/19 03/14/19 Range/Units 18:00 00:17 05:24 WBC (4.5-11.0) K/mm3 RBC (3.65-5.03) M/mm3 Hgb (10.1-14.3) gm/dl Hct (30.3-42.9) % RDW (13.2-15.2) % Plt Count (140-440) K/mm3 Seg Neuts % (Manual) (40.0-70.0) % Eosinophils % (Manual) (0.0-4.3) % Nucleated RBC % (0.0-0.9) % Lymphocytes # (Manual) (1.2-5.4) K/mm3 POC ABG pH (7.35-7.45) POC ABG pCO2 (35-45) POC ABG pO2 (80-105) Chloride (98-107) mmol/L Carbon Dioxide (22-30) mmol/L Creatinine (0.7-1.2) mg/dL POC Glucose 132 H 130 H 110 H (70-105) Lactic Acid (0.7-2.0) mmol/L AST (5-40) units/L ALT (7-56) units/L Alkaline Phosphatase (35-129) units/L CK-MB (CK-2) (0.0-4.0) ng/mL CK-MB (CK-2) Rel Index (0-4) Troponin T (0.00-0.029) ng/mL Albumin (3.9-5) g/dL 03/14/19 03/14/19 03/14/19 Range/Units 06:44 06:44 09:05 WBC 2.6 L (4.5-11.0) K/mm3 RBC 3.00 L (3.65-5.03) M/mm3 Hgb 9.2 L (10.1-14.3) gm/dl Hct 28.3 L (30.3-42.9) % RDW 22.5 H (13.2-15.2) % Plt Count 44 L (140-440) K/mm3 Seg Neuts % (Manual) 75.0 H (40.0-70.0) % Eosinophils % (Manual) 5.0 H (0.0-4.3) % Nucleated RBC % 19.0 H (0.0-0.9) % Lymphocytes # (Manual) 0.4 L (1.2-5.4) K/mm3 POC ABG pH 7.283 L (7.35-7.45) POC ABG pCO2 54.9 H (35-45) POC ABG pO2 76 L (80-105) Chloride 110.2 H (98-107) mmol/L Carbon Dioxide 21 L (22-30) mmol/L Creatinine 1.3 H (0.7-1.2) mg/dL POC Glucose (70-105) Lactic Acid (0.7-2.0) mmol/L AST 144 H (5-40) units/L ALT 90 H (7-56) units/L Alkaline Phosphatase 226 H (35-129) units/L CK-MB (CK-2) 8.6 H (0.0-4.0) ng/mL CK-MB (CK-2) Rel Index 7.1 H (0-4) Troponin T 0.056 H D (0.00-0.029) ng/mL Albumin 2.2 L (3.9-5) g/dL 03/14/19 03/14/19 03/14/19 Range/Units 11:54 12:15 12:43 WBC (4.5-11.0) K/mm3 RBC (3.65-5.03) M/mm3 Hgb (10.1-14.3) gm/dl Hct (30.3-42.9) % RDW (13.2-15.2) % Plt Count (140-440) K/mm3 Seg Neuts % (Manual) (40.0-70.0) % Eosinophils % (Manual) (0.0-4.3) % Nucleated RBC % (0.0-0.9) % Lymphocytes # (Manual) (1.2-5.4) K/mm3 POC ABG pH 7.458 H (7.35-7.45) POC ABG pCO2 32.7 L (35-45) POC ABG pO2 (80-105) Chloride (98-107) mmol/L Carbon Dioxide (22-30) mmol/L Creatinine (0.7-1.2) mg/dL POC Glucose (70-105) Lactic Acid 2.10 H* 2.10 H* (0.7-2.0) mmol/L AST (5-40) units/L ALT (7-56) units/L Alkaline Phosphatase (35-129) units/L CK-MB (CK-2) (0.0-4.0) ng/mL CK-MB (CK-2) Rel Index (0-4) Troponin T (0.00-0.029) ng/mL Albumin (3.9-5) g/dL Assessment and Plan Cultures: 03/10 UCx - VRE faecim 03/10 BCx - NGTD 03/14 BCX - NGTD A/P: 68 yo F PMHx hepatitis C, Dm2, many other comorbidities admitted with altered mental status, possible secondary to VRE UTI 1. VRE UTI - given worsening thrombocytopenia would treat with daptomycin. Would also ensure steen catheter is changed prior to cessation of antibiotics. OK to stop vancomycin and pip-david. 2. Hepatitis C 3. DM2 - tight glycemic control for wound healing Recs: - start daptomycin 8mg/kg q24h - stop vancomycin - stop pip-david - change steen catheter when able. Thank you for the consult, we will continue to follow. Berta Stacy MD [facility] ([facility]) M: [phone] O: [phone] F: [phone]
[2019-03-14] MEDS: RIFAXIMIN 550 MG TAB PO SCH ×2 (16:40→22:08)
[2019-03-14] MEDS: THIAMINE 100 MG TAB PO SCH (16:40)
[2019-03-14] MEDS: chlordiazePOXIDE 25 MG CAP PO SCH (16:40)
[2019-03-14] MEDS: FOLIC ACID 1 MG TAB PO SCH (16:40)
--- NOTE | 2019-03-14 16:57 | Consultation ---
History of Present Illness Consult date: 03/14/19 Requesting physician: CHRISTOPHER PATE Reason for consult: other (Acute hypoxemic respiratory failure; Severe sepsis with septic shock; Aspiration pneumonia) History of present illness: 68-year-old female that lives in a [facility] that presents emergency room for altered mental status. Patient came to the ER with unknown amount of time of altered mental status. Patient is minimally responsive at baseline. Patient has multiple medical problems report she received from [facility]. 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 This morning, was being suctioned, aspirated and documented asystole. She received 1 dose of epinephrine and was intubated and transferred to the ICU for ongoing care. Patient was seen and examined. Vitals, labs, medications, chart and imaging reviewed. History per review of medical records. Past History Past Medical History: hepatitis Past Surgical History: Other (Unabel to obtain secondary to mental status) Social history: other (Unabel to obtain secondary to mental status) Family history: other (Unabel to obtain secondary to mental status) Medications and Allergies Allergies Allergy/AdvReac Type Severity Reaction Status Date / Time No Known Allergies Allergy Verified 01/06/17 23:38 Home Medications Medication Instructions Recorded Confirmed Last Taken Type Folic Acid [Folvite] 1 mg PO QDAY #30 tablet 08/12/18 03/10/19 03/09/19 Rx Haloperidol [Haldol] 0.5 mg PO Q6H PRN #30 tablet 08/12/18 03/10/19 03/10/19 Rx Lactulose [Cephulac] 20 gm PO Q12H #1 bottle 08/12/18 03/10/19 03/09/19 Rx Rifaximin [Xifaxan] 550 mg PO BID #60 tablet 08/12/18 03/10/19 03/09/19 Rx Thiamine [Vitamin B-1] 100 mg PO QDAY #30 tablet 08/12/18 03/10/19 03/09/19 Rx amLODIPine 5 mg PO QDAY #30 tablet 08/12/18 03/10/19 03/09/19 Rx chlordiazePOXIDE [Librium] 25 mg PO DAILY #3 capsule 08/12/18 03/10/19 03/09/19 Rx ALBUTEROL NEB's [Proventil] 2.5 mg IH TID PRN 02/06/19 03/10/19 03/09/19 History Acetaminophen [Tylenol] 650 mg PO Q6HR PRN 02/06/19 03/10/19 03/09/19 History Fluticasone [Flonase] 1 spray NS QDAY 02/06/19 03/10/19 03/09/19 History Ipratropium/Albuterol Sulfate 1 spray IH QID 02/06/19 03/10/19 03/09/19 History [Combivent Respimat] Melatonin [Melatonin 10MG CAP] 10 mg PO QHS 02/06/19 03/10/19 03/09/19 History Active Meds: Active Medications Acetaminophen (Tylenol) 650 mg PO Q4H PRN PRN Reason: Pain MILD(1-3)/Fever >100.5/GUERRERO Albuterol (Proventil) 2.5 mg IH TID PRN PRN Reason: Wheezing Albuterol/Ipratropium (Duoneb *Not For Prn Use*) 1 ampul IH Q6HRT [facility] Last Admin: 03/14/19 13:54 Dose: 1 ampul Documented by: Lipase/Protease/Amylase (Roseann Sahni 10,500 Unit) 1 each FEEDTUBE PRN PRN PRN Reason: For Clogged Feeding Tube Chlordiazepoxide HCl (Librium) 25 mg PO DAILY [facility] Last Admin: 03/14/19 16:40 Dose: 25 mg Documented by: Dextrose (D50w (25gm) Syringe) 50 ml IV Q30MIN PRN PRN Reason: Hypoglycemia Last Admin: 03/14/19 13:33 Dose: 15 ml Documented by: Fluticasone Propionate (Flonase) 50 mcg NS QDAY [facility] Last Admin: 03/14/19 13:21 Dose: Not Given Documented by: Folic Acid (Folvite) 1 mg PO QDAY [facility] Last Admin: 03/14/19 16:40 Dose: 1 mg Documented by: Haloperidol (Haldol) 0.5 mg PO Q6H PRN PRN Reason: Agitation Last Admin: 03/12/19 09:32 Dose: 0.5 mg Documented by: Hydrophilic Ointment (Vaseline Lip Therapy) 1 applic TP Q2HR PRN PRN Reason: Dry Lips Propofol (Diprivan 10 Mg/Ml) 1,000 mg in 100 mls @ 2.587 mls/hr IV TITR CONNIE; Protocol Last Titration: 03/14/19 12:00 Dose: 0 mcg/kg/min, 0 mls/hr Documented by: Piperacillin Sod/Tazobactam Sod (Zosyn/Ns 4.5gm/100ml) 4.5 gm in 100 mls @ 200 mls/hr IV Q6HR CONNIE; Protocol Last Admin: 03/14/19 13:21 Dose: 200 mls/hr Documented by: Fentanyl Citrate (Fentanyl Drip Premix) 2,000 mcg in 100 mls @ 4.312 mls/hr IV TITR CONNIE; Protocol Last Titration: 03/14/19 14:04 Dose: 0 mcg/kg/hr, 0 mls/hr Documented by: Dextrose/Sodium Chloride (D5ns) 1,000 mls @ 100 mls/hr IV DIRECT CONNIE Last Admin: 03/14/19 14:04 Dose: 100 mls/hr Documented by: Vasopressin 20 unit/ Sodium (Chloride) 101 mls @ 9.09 mls/hr IV TITR CONNIE; Protocol Last Admin: 03/14/19 15:48 Dose: 0.03 units/min, 9.09 mls/hr Documented by: Sodium Chloride (Nacl 0.9% 1000 Ml) 1,000 mls @ 999 mls/hr IV BOLUS ONE Stop: 03/14/19 17:29 Last Admin: 03/14/19 16:40 Dose: 999 mls/hr Documented by: Insulin Human Lispro (Humalog) 0 unit SUB-Q Q6HR CONNIE; Protocol Last Admin: 03/14/19 13:25 Dose: Not Given Documented by: Lactulose (Cephulac) 20 gm PO Q12H CONNIE Last Admin: 03/14/19 16:42 Dose: Not Given Documented by: Morphine Sulfate (Morphine) 2 mg IV Q4H PRN PRN Reason: Pain, Moderate (4-6) Last Admin: 03/11/19 05:04 Dose: 2 mg Documented by: Multi-Ingred Cream/Lotion/Oil/Oint (Artificial Tears Ophth Oint) 1 applic OU Q4HR PRN PRN Reason: Dry Eye(s) Ondansetron HCl (Zofran) 4 mg IV Q8H PRN PRN Reason: Nausea And Vomiting Last Admin: 03/11/19 05:04 Dose: 4 mg Documented by: Rifaximin (Xifaxan) 550 mg PO BID [facility] Last Admin: 03/14/19 16:40 Dose: 550 mg Documented by: Simple Syrup (Simple Syrup) 15 ml FEEDTUBE PRN PRN PRN Reason: Hypoglycemia Simple Syrup (Simple Syrup) 30 ml FEEDTUBE PRN PRN PRN Reason: Hypoglycemia Sodium Bicarbonate (Sodium Bicarbonate) 325 mg FEEDTUBE PRN PRN PRN Reason: For Clogged Feeding Tube Sodium Chloride (Sodium Chloride Flush Syringe 10 Ml) 10 ml IV BID [facility] Last Admin: 03/14/19 16:41 Dose: 10 ml Documented by: Sodium Chloride (Sodium Chloride Flush Syringe 10 Ml) 10 ml IV PRN PRN PRN Reason: LINE FLUSH Last Admin: 03/13/19 22:50 Dose: 10 ml Documented by: Thiamine HCl (Vitamin B-1) 100 mg PO QDAY [facility] Last Admin: 03/14/19 16:40 Dose: 100 mg Documented by: Physical Examination Vital signs: Vital Signs Temp Pulse Resp BP Pulse Ox 98.0 F 57 L 18 135/68 100 03/10/19 13:09 03/10/19 13:09 03/10/19 13:09 03/10/19 13:09 03/10/19 13:09 General appearance: other (mild respiratory distress, ) Eyes: non-icteric ENT: oropharynx dry, other (ETT at 23cm at the lip, small bowel feeding tube in nares) Neck: supple, no lymphadenopathy, no JVD Effort: mildly labored Ascultation: Bilateral: diminished breath sounds, rhonchi Cardiovascular: regular rate and rhythm, other (S1, S2, no murmurs, gallops or rubs rhythm strip shows accelerated junctional ) Gastrointestinal: normoactive bowel sounds, soft, non-tender, other (non distended, Andersen minimal urine output) Integumentary: normal Extremities: no cyanosis, no edema, pink and warm, pulses normal, no ischemia or petechiae unable to assess other (unable to assess) Results - Laboratory Findings CBC and BMP: 03/15/19 04:00 03/15/19 04:00 ABG POC ABG pH 7.458 (7.35-7.45) H 03/14/19 12:15 POC ABG pCO2 32.7 (35-45) L 03/14/19 12:15 POC ABG HCO3 23.2 (22-26 mml/L) 03/14/19 12:15 POC ABG Total CO2 24 (23-27mmol/L) 03/14/19 12:15 POC ABG O2 Sat 83 03/14/19 12:15 Abnormal lab findings: Abnormal Labs 03/10/19 03/10/19 03/10/19 13:16 13:16 14:38 WBC 0.8 L* RBC 3.35 L Hgb Hct RDW 22.1 H Plt Count 78 L Seg Neuts % (Manual) Lymphocytes % (Manual) 49.0 H Monocytes % (Manual) Eosinophils % (Manual) Nucleated RBC % Seg Neutrophils # Man 0.3 L Lymphocytes # (Manual) 0.4 L POC ABG pH POC ABG pCO2 POC ABG pO2 Sodium 147 H Potassium 5.4 H Chloride 111.8 H Carbon Dioxide Creatinine 0.6 L Glucose POC Glucose Lactic Acid AST 128 H ALT 79 H Alkaline Phosphatase 174 H CK-MB (CK-2) CK-MB (CK-2) Rel Index Troponin T Total Protein Albumin 2.4 L Urine WBC (Auto) 9.0 H Vancomycin Trough 03/10/19 03/10/19 03/11/19 21:22 23:36 07:29 WBC RBC Hgb Hct RDW Plt Count Seg Neuts % (Manual) Lymphocytes % (Manual) Monocytes % (Manual) Eosinophils % (Manual) Nucleated RBC % Seg Neutrophils # Man Lymphocytes # (Manual) POC ABG pH POC ABG pCO2 POC ABG pO2 Sodium 148 H Potassium 5.6 H Chloride 122.3 H Carbon Dioxide 20 L Creatinine 0.6 L Glucose POC Glucose 65 L 112 H Lactic Acid AST 102 H ALT 65 H Alkaline Phosphatase 134 H CK-MB (CK-2) CK-MB (CK-2) Rel Index Troponin T Total Protein 6.1 L Albumin 1.8 L Urine WBC (Auto) Vancomycin Trough 03/11/19 03/11/19 03/11/19 11:25 15:28 18:00 WBC 1.2 L* RBC Hgb Hct RDW 22.1 H Plt Count 53 L Seg Neuts % (Manual) 78.6 H Lymphocytes % (Manual) 9.5 L Monocytes % (Manual) 9.5 H Eosinophils % (Manual) Nucleated RBC % Seg Neutrophils # Man 0.9 L Lymphocytes # (Manual) 0.1 L POC ABG pH POC ABG pCO2 POC ABG pO2 Sodium Potassium Chloride Carbon Dioxide Creatinine Glucose POC Glucose 117 H 118 H Lactic Acid AST ALT Alkaline Phosphatase CK-MB (CK-2) CK-MB (CK-2) Rel Index Troponin T Total Protein Albumin Urine WBC (Auto) Vancomycin Trough 03/12/19 03/12/19 03/12/19 00:19 05:45 08:55 WBC 2.4 L RBC 3.33 L Hgb Hct RDW 22.8 H Plt Count 58 L Seg Neuts % (Manual) 93.0 H Lymphocytes % (Manual) 4.0 L Monocytes % (Manual) Eosinophils % (Manual) Nucleated RBC % 7.0 H Seg Neutrophils # Man Lymphocytes # (Manual) 0.1 L POC ABG pH POC ABG pCO2 POC ABG pO2 Sodium Potassium Chloride Carbon Dioxide Creatinine Glucose POC Glucose 124 H 116 H Lactic Acid AST ALT Alkaline Phosphatase CK-MB (CK-2) CK-MB (CK-2) Rel Index Troponin T Total Protein Albumin Urine WBC (Auto) Vancomycin Trough 03/12/19 03/13/19 03/13/19 08:55 00:18 03:48 WBC 2.7 L RBC 3.06 L Hgb 9.4 L Hct 29.4 L RDW 23.1 H Plt Count 62 L Seg Neuts % (Manual) 76.0 H Lymphocytes % (Manual) Monocytes % (Manual) Eosinophils % (Manual) Nucleated RBC % 11.0 H Seg Neutrophils # Man Lymphocytes # (Manual) 0.5 L POC ABG pH POC ABG pCO2 POC ABG pO2 Sodium Potassium 5.6 H Chloride 114.2 H Carbon Dioxide 21 L Creatinine Glucose POC Glucose 119 H Lactic Acid AST ALT Alkaline Phosphatase CK-MB (CK-2) CK-MB (CK-2) Rel Index Troponin T Total Protein Albumin Urine WBC (Auto) Vancomycin Trough 03/13/19 03/13/19 03/13/19 03:48 05:52 05:58 WBC RBC Hgb Hct RDW Plt Count Seg Neuts % (Manual) Lymphocytes % (Manual) Monocytes % (Manual) Eosinophils % (Manual) Nucleated RBC % Seg Neutrophils # Man Lymphocytes # (Manual) POC ABG pH POC ABG pCO2 POC ABG pO2 Sodium Potassium Chloride 112.7 H Carbon Dioxide 21 L Creatinine Glucose 103 H POC Glucose 114 H Lactic Acid AST ALT Alkaline Phosphatase CK-MB (CK-2) CK-MB (CK-2) Rel Index Troponin T Total Protein Albumin Urine WBC (Auto) Vancomycin Trough 39.7 H 03/13/19 03/13/19 03/14/19 12:12 18:00 00:17 WBC RBC Hgb Hct RDW Plt Count Seg Neuts % (Manual) Lymphocytes % (Manual) Monocytes % (Manual) Eosinophils % (Manual) Nucleated RBC % Seg Neutrophils # Man Lymphocytes # (Manual) POC ABG pH POC ABG pCO2 POC ABG pO2 Sodium Potassium Chloride Carbon Dioxide Creatinine Glucose POC Glucose 116 H 132 H 130 H Lactic Acid AST ALT Alkaline Phosphatase CK-MB (CK-2) CK-MB (CK-2) Rel Index Troponin T Total Protein Albumin Urine WBC (Auto) Vancomycin Trough 03/14/19 03/14/19 03/14/19 05:24 06:44 06:44 WBC 2.6 L RBC 3.00 L Hgb 9.2 L Hct 28.3 L RDW 22.5 H Plt Count 44 L Seg Neuts % (Manual) 75.0 H Lymphocytes % (Manual) Monocytes % (Manual) Eosinophils % (Manual) 5.0 H Nucleated RBC % 19.0 H Seg Neutrophils # Man Lymphocytes # (Manual) 0.4 L POC ABG pH POC ABG pCO2 POC ABG pO2 Sodium Potassium Chloride 110.2 H Carbon Dioxide 21 L Creatinine 1.3 H Glucose POC Glucose 110 H Lactic Acid AST 144 H ALT 90 H Alkaline Phosphatase 226 H CK-MB (CK-2) 8.6 H CK-MB (CK-2) Rel Index 7.1 H Troponin T 0.056 H D Total Protein Albumin 2.2 L Urine WBC (Auto) Vancomycin Trough 03/14/19 03/14/19 03/14/19 09:05 11:54 12:15 WBC RBC Hgb Hct RDW Plt Count Seg Neuts % (Manual) Lymphocytes % (Manual) Monocytes % (Manual) Eosinophils % (Manual) Nucleated RBC % Seg Neutrophils # Man Lymphocytes # (Manual) POC ABG pH 7.283 L 7.458 H POC ABG pCO2 54.9 H 32.7 L POC ABG pO2 76 L Sodium Potassium Chloride Carbon Dioxide Creatinine Glucose POC Glucose Lactic Acid 2.10 H* AST ALT Alkaline Phosphatase CK-MB (CK-2) CK-MB (CK-2) Rel Index Troponin T Total Protein Albumin Urine WBC (Auto) Vancomycin Trough 03/14/19 03/14/19 03/14/19 12:43 13:35 15:35 WBC RBC Hgb Hct RDW Plt Count Seg Neuts % (Manual) Lymphocytes % (Manual) Monocytes % (Manual) Eosinophils % (Manual) Nucleated RBC % Seg Neutrophils # Man Lymphocytes # (Manual) POC ABG pH POC ABG pCO2 POC ABG pO2 Sodium Potassium Chloride Carbon Dioxide Creatinine Glucose POC Glucose 68 L Lactic Acid 2.10 H* 3.50 H* AST ALT Alkaline Phosphatase CK-MB (CK-2) CK-MB (CK-2) Rel Index Troponin T Total Protein Albumin Urine WBC (Auto) Vancomycin Trough - Diagnostic Findings Chest x-ray: image reviewed (ETT in position, right lung bases developing infiltrate) Assessment and Plan Severe sepsis with septic shock Cardiac arrest-asystole with ROSC Acute hypoxic respiratory failure on MVS Lactic acidosis- multifactorial Acute toxic- metabolic encephalopathy Aspiration pneumonia VRE UTI Hypernatremia Thrombocytopenia h/o Cirrhosis h/o Alcohol abuse disorder KERRI Hyperkalemia PLAN - Wean vasopressor support for MAP>65, currently on vasopressin Add dopamine if needed, place central venous access -Volume resuscitation per sepsis protocol -VAP bundle addressed -Aspiration precautions, HOB>40 degrees - Lung protective strategies -Adjust minute ventilation for better acid-base balance -Increases FIO2 100% and PEEP to 8, follow up ABG in 2 hours -CXR, ABG in am -CBC, BMP and lactic acid at 8pm -Daily SAT, SBT as tolerated -Hold tube feedings for 24 hours, will reassess in the morning and address nutrition then -Keep off sedation to allow for evaluation of mental status -Empiric antibiotics for aspiration PNA, antibiotics for VRE, de-escalate based on cultures and clinical status -Place on contact isolation -VTE prophylaxis ( SCDs), tend platelet counts and monitor for bleeding -Stress ulcer prophylaxis - Accuchecks with glycemic control for SSI (While critically ill target blood glucose of 140-180 mg/dL; avoid hypoglycemia) - mobility protocol for pressure ulcer prevention - Monitor hemodynamics closely -Monitor electrolyte profile closely and replete as indicated -Chronic home medications, resume as clinically indicated -Hold off on CT scan of the brain today as her hemodynamics are unstable. She is on high ventilatory settings and is unstable for transport. Will reassess her neurologic status and decide on timing of head CT/neuro imaging -Andersen catheter in this critically ill patient, with poor urine output, requiring accurate intake and output monitoring. -12 lead EKG, she is in a n accelerated junctional rhythm on telemetry CONDITION: CRITICAL PROGNOSIS: GUARDED-POOR CODE STATUS: FULL CODE The high probability of a clinically significant, sudden or life-threatening deterioration of the [respiratory, cardiovascular, neurology] system(s) required my full and direct attention, intervention and personal management. The aggregate critical care time was [75] minutes without overlap. Time includes spent on; [x] Data Review and interpretation [x] Patient assessment and monitoring of vital signs [x] Documentation [x] Medication orders and management
[2019-03-14 21:01] LABS: Calcium 8.4 mg/dL (8.4-10.2)
[2019-03-14] MEDS: DOPamine/D5W 800 MG/250 ML 800 MG/250 ML BAG IV SCH (21:41)
[2019-03-14] MEDS: MORPHINE 2 MG/1 ML INJ IV PRN (22:15)
[2019-03-14] MEDS ORDERED: ALBUMIN HUMAN 25% (25 GM/100 ML) INJ IV ONE (22:19)
[2019-03-15] MEDS: D5W/0.9% NACL 1,000 ML IV SCH ×3 (00:01→17:14)
[2019-03-15] MEDS: PIPERACIL/TAZOBACTA 4.5/NS 100 4.5 GM/100 ML VIAL IV SCH ×5 (00:01→23:33)
[2019-03-15] MEDS: VASOPRESSIN 20 UNIT in SODIUM CHLORIDE 0.9% 100 ML IV SCH ×3 (00:04→22:46)
[2019-03-15] MEDS: INSULIN LISPRO 100 UNIT/ML SUB-Q SCH ×4 (00:15→18:51)
[2019-03-15] MEDS ORDERED: ETOMIDATE 20 MG/10 ML INJ IV ONE (01:00)
[2019-03-15] MEDS ORDERED: SUCCINYLCHOLINE CHLORIDE 200 MG/10 ML INJ MDV ONE (01:00)
[2019-03-15] MEDS: IPRATROPIUM/ALBUTEROL SULFATE 3 ML AMPUL.NEB IH SCH ×4 (01:17→21:10)
[2019-03-15] MEDS: MORPHINE 2 MG/1 ML INJ IV PRN (02:12)
[2019-03-15 05:03] LABS: Hematocrit 27.3 % (30.3-42.9); Hemoglobin 8.5 gm/dl (10.1-14.3); Mean Corpuscular HGB Conc 31 % (30-34); Mean Corpuscular Volume 98 fl (79-97); Red Blood Count 2.77 M/mm3 (3.65-5.03)
[2019-03-15 05:13] LABS: Calcium 8.2 mg/dL (8.4-10.2)
--- NOTE | 2019-03-15 05:36 | XRay Report ---
CHEST 1 VIEW 0231 INDICATION / CLINICAL INFORMATION: follow up respiratory failure. COMPARISON: 03/14/2019 FINDINGS: SUPPORT DEVICES: Stable HEART / MEDIASTINUM: Stable LUNGS / PLEURA: Bilateral pulmonary infiltrates/edema have moderately worsened. Congestive changes ar e worse. No pneumothorax. ADDITIONAL FINDINGS: No significant additional findings. IMPRESSION: Worsening Signer Name: Derrek Baker MD Signed: 03/15/2019 5:31 AM Workstation Name: [id number]
[2019-03-15 05:43] LABS: Platelet Count 27 K/mm3 (140-440)
--- NOTE | 2019-03-15 06:39 | Consultation ---
REFERRED BY: Natalya See M.D. REASON FOR CONSULTATION: Leukopenia and thrombocytopenia. HISTORY OF PRESENT ILLNESS: I saw the patient, a 68-year-old female with ____ issues in the hospital. The patient has a history of hepatic failure, hypertension. The patient was at skilled nursing and was sent for altered mentation and being unresponsive, history of hepatitis C and history of alcoholic liver disease. Blood count shows low white cell count and platelets. I have been asked to evaluate the patient for this. The patient is not responding to verbal commands. Most of the information comes from the medical records. PAST MEDICAL HISTORY: As above, renal stones, anemia, COPD. PAST SURGICAL HISTORY: None available. FAMILY HISTORY: Hypertension. SOCIAL HISTORY: Ex-smoker, no alcohol usage. REVIEW OF SYSTEMS: Not reliable. ALLERGIES: No known drug allergies. MEDICATIONS: Includes Lipase, Librium, folic acid. PHYSICAL EXAMINATION: VITAL SIGNS: Temperature ____, pulse 91, respirations 18, BP 98/53. HEENT: No pallor, no icterus. NECK: No neck lymph nodes. HEART: S1, S2. LUNGS: Clear to auscultation anteriorly. ABDOMEN: ____. NEUROLOGIC: Alert, not verbalizing. LABORATORY DATA: White cell 1.2 then later 2.4, hemoglobin 11, MCV 95, platelets 53. Potassium 5.6, creatinine 0.6, calcium 8.8, bilirubin ____. RADIOLOGY: Head CT was done. This shows nil acute. ASSESSMENT AND PLAN: 1. Leukopenia and the patient has a history of liver disease and alcohol usage. These may have a role. Thrombocytopenia may have a similar reason. Deficiency investigations will be looked into. In January, B12 was 1400, folate 13. ____. We will follow the trend. 2. Encephalopathy, being treated for sepsis. 3. History of electrolyte imbalance. 4. History of hypertension. 5. History of chronic obstructive pulmonary disease. 6. AST, ALT abnormality. 7. The patient was placed on reverse isolation. I will follow the patient during inpatient stay. JOB# [id number] MS/NTS
--- NOTE | 2019-03-15 08:01 | Hem/Onc Progress Note ---
Assessment and Plan 1. Leukopenia and the patient has a history of liver disease and alcohol usage. These may have a role. Thrombocytopenia may have a similar reason. Deficiency investigations. In January, B12 was 1400, folate 13. 2. Encephalopathy, being treated for sepsis. 3. History of electrolyte imbalance. 4. History of hypertension. 5. History of chronic obstructive pulmonary disease. 6. AST, ALT abnormality. 7. The patient was placed on reverse isolation. I will follow the patient during inpatient stay. wbc better - but pt on vent b12 - folate normal - will follow plt low - may be sec to meds/antibiotics - Patient Problems (1) Leukopenia Current Visit: Yes Status: Acute Qualifiers: Leukopenia type: unspecified Qualified Code(s): D72.819 - Decreased white blood cell count, unspecified Subjective Date of service: 03/15/19 Principal diagnosis: low plt Interval history: intubated - on abx Objective - Exam Narrative Exam: Pain - on vent General appearance - intubated Performance status - complete dependence Eyes - no icterus, ENT - no bleeding LNs cervical not palpable Neck - no LN Respiratory Normal Breath sounds - CTA anteriorly CVS S1 S2 + Extremities edema+ General GI Soft Rectal deferred female - deferred Skin warm Musculoskeletal on vent Neurologically intubated - Constitutional Vitals: Last Vital Signs Temp 99.2 F 03/15/19 07:41 Pulse 94 H 03/15/19 06:15 Resp 22 03/15/19 06:15 BP 92/62 03/15/19 06:15 Pulse Ox 100 03/15/19 06:15 - Labs Lab Results: Laboratory Results - last 24 hr 03/14/19 03/14/19 03/14/19 06:44 06:44 09:05 WBC 2.6 L RBC 3.00 L Hgb 9.2 L Hct 28.3 L MCV 94 MCH 31 MCHC 32 RDW 22.5 H Plt Count 44 L Add Manual Diff Complete Total Counted 100 Seg Neuts % (Manual) 75.0 H Band Neutrophils % 2.0 Lymphocytes % (Manual) 14.0 Reactive Lymphs % (Man) 0 Monocytes % (Manual) 4.0 Eosinophils % (Manual) 5.0 H Basophils % (Manual) 0 Metamyelocytes % 0 Myelocytes % 0 Promyelocytes % 0 Blast Cells % 0 Nucleated RBC % 19.0 H Seg Neutrophils # Man 2.0 Band Neutrophils # 0.1 Lymphocytes # (Manual) 0.4 L Abs React Lymphs (Man) 0.0 Monocytes # (Manual) 0.1 Eosinophils # (Manual) 0.1 Basophils # (Manual) 0.0 Metamyelocytes # 0.0 Myelocytes # 0.0 Promyelocytes # 0.0 Blast Cells # 0.0 WBC Morphology Not Reportable Hypersegmented Neuts Not Reportable Hyposegmented Neuts Not Reportable Hypogranular Neuts Not Reportable Smudge Cells Not Reportable Toxic Granulation Not Reportable Toxic Vacuolation Not Reportable Dohle Bodies Not Reportable Pelger-Huet Anomaly Not Reportable Sheila Rods Not Reportable Platelet Estimate Consistent w auto Clumped Platelets Not Reportable Plt Clumps, EDTA Not Reportable Large Platelets Not Reportable Giant Platelets Not Reportable Platelet Satelliting Not Reportable Plt Morphology Comment Not Reportable RBC Morphology Not Reportable Dimorphic RBCs Not Reportable Polychromasia Not Reportable Hypochromasia Not Reportable Poikilocytosis Not Reportable Anisocytosis 1+ Microcytosis Not Reportable Macrocytosis 1+ Spherocytes Not Reportable Pappenheimer Bodies Not Reportable Sickle Cells Not Reportable Target Cells Not Reportable Tear Drop Cells Not Reportable Ovalocytes Not Reportable Helmet Cells Not Reportable [place] Bodies Not Reportable [place] Rings Not Reportable [place] Cells Not Reportable Bite Cells Not Reportable Crenated Cell Not Reportable Elliptocytes Not Reportable Acanthocytes (Spur) Not Reportable Rouleaux Not Reportable Hemoglobin C Crystals Not Reportable Schistocytes Not Reportable Malaria parasites Not Reportable [place] Bodies Not Reportable Hem Pathologist Commnt No POC ABG pH 7.283 L POC ABG pCO2 54.9 H POC ABG pO2 76 L POC ABG HCO3 26.0 POC ABG Total CO2 28 POC ABG O2 Sat 93 POC ABG Base Excess -1 FiO2 50 Sodium 140 Potassium 4.6 Chloride 110.2 H Carbon Dioxide 21 L Anion Gap 13 BUN 14 Creatinine 1.3 H Estimated GFR 50 BUN/Creatinine Ratio 11 Glucose 96 POC Glucose Lactic Acid Calcium 9.5 Total Bilirubin 0.50 AST 144 H ALT 90 H Alkaline Phosphatase 226 H Total Creatine Kinase 120 CK-MB (CK-2) 8.6 H CK-MB (CK-2) Rel Index 7.1 H Troponin T 0.056 H D Total Protein 6.7 Albumin 2.2 L Albumin/Globulin Ratio 0.5 Triglycerides 62 Cholesterol 133 LDL Cholesterol Direct 89 HDL Cholesterol 43 Cholesterol/HDL Ratio 3.09 03/14/19 03/14/19 03/14/19 11:54 12:15 12:43 WBC RBC Hgb Hct MCV MCH MCHC RDW Plt Count Add Manual Diff Total Counted Seg Neuts % (Manual) Band Neutrophils % Lymphocytes % (Manual) Reactive Lymphs % (Man) Monocytes % (Manual) Eosinophils % (Manual) Basophils % (Manual) Metamyelocytes % Myelocytes % Promyelocytes % Blast Cells % Nucleated RBC % Seg Neutrophils # Man Band Neutrophils # Lymphocytes # (Manual) Abs React Lymphs (Man) Monocytes # (Manual) Eosinophils # (Manual) Basophils # (Manual) Metamyelocytes # Myelocytes # Promyelocytes # Blast Cells # WBC Morphology Hypersegmented Neuts Hyposegmented Neuts Hypogranular Neuts Smudge Cells Toxic Granulation Toxic Vacuolation Dohle Bodies Pelger-Huet Anomaly Sheila Rods Platelet Estimate Clumped Platelets Plt Clumps, EDTA Large Platelets Giant Platelets Platelet Satelliting Plt Morphology Comment RBC Morphology Dimorphic RBCs Polychromasia Hypochromasia Poikilocytosis Anisocytosis Microcytosis Macrocytosis Spherocytes Pappenheimer Bodies Sickle Cells Target Cells Tear Drop Cells Ovalocytes Helmet Cells [place] Bodies [place] Rings [place] Cells Bite Cells Crenated Cell Elliptocytes Acanthocytes (Spur) Rouleaux Hemoglobin C Crystals Schistocytes Malaria parasites [place] Bodies Hem Pathologist Commnt POC ABG pH 7.458 H POC ABG pCO2 32.7 L POC ABG pO2 POC ABG HCO3 23.2 POC ABG Total CO2 24 POC ABG O2 Sat 83 POC ABG Base Excess -1 FiO2 50 Sodium Potassium Chloride Carbon Dioxide Anion Gap BUN Creatinine Estimated GFR BUN/Creatinine Ratio Glucose POC Glucose Lactic Acid 2.10 H* 2.10 H* Calcium Total Bilirubin AST ALT Alkaline Phosphatase Total Creatine Kinase CK-MB (CK-2) CK-MB (CK-2) Rel Index Troponin T Total Protein Albumin Albumin/Globulin Ratio Triglycerides Cholesterol LDL Cholesterol Direct HDL Cholesterol Cholesterol/HDL Ratio 03/14/19 03/14/19 03/14/19 13:35 15:35 17:34 WBC RBC Hgb Hct MCV MCH MCHC RDW Plt Count Add Manual Diff Total Counted Seg Neuts % (Manual) Band Neutrophils % Lymphocytes % (Manual) Reactive Lymphs % (Man) Monocytes % (Manual) Eosinophils % (Manual) Basophils % (Manual) Metamyelocytes % Myelocytes % Promyelocytes % Blast Cells % Nucleated RBC % Seg Neutrophils # Man Band Neutrophils # Lymphocytes # (Manual) Abs React Lymphs (Man) Monocytes # (Manual) Eosinophils # (Manual) Basophils # (Manual) Metamyelocytes # Myelocytes # Promyelocytes # Blast Cells # WBC Morphology Hypersegmented Neuts Hyposegmented Neuts Hypogranular Neuts Smudge Cells Toxic Granulation Toxic Vacuolation Dohle Bodies Pelger-Huet Anomaly Sheila Rods Platelet Estimate Clumped Platelets Plt Clumps, EDTA Large Platelets Giant Platelets Platelet Satelliting Plt Morphology Comment RBC Morphology Dimorphic RBCs Polychromasia Hypochromasia Poikilocytosis Anisocytosis Microcytosis Macrocytosis Spherocytes Pappenheimer Bodies Sickle Cells Target Cells Tear Drop Cells Ovalocytes Helmet Cells [place] Bodies [place] Rings [place] Cells Bite Cells Crenated Cell Elliptocytes Acanthocytes (Spur) Rouleaux Hemoglobin C Crystals Schistocytes Malaria parasites [place] Bodies Hem Pathologist Commnt POC ABG pH 7.241 L POC ABG pCO2 50.4 H POC ABG pO2 POC ABG HCO3 21.7 POC ABG Total CO2 23 POC ABG O2 Sat 67 POC ABG Base Excess -6 FiO2 100 Sodium Potassium Chloride Carbon Dioxide Anion Gap BUN Creatinine Estimated GFR BUN/Creatinine Ratio Glucose POC Glucose 68 L Lactic Acid 3.50 H* Calcium Total Bilirubin AST ALT Alkaline Phosphatase Total Creatine Kinase CK-MB (CK-2) CK-MB (CK-2) Rel Index Troponin T Total Protein Albumin Albumin/Globulin Ratio Triglycerides Cholesterol LDL Cholesterol Direct HDL Cholesterol Cholesterol/HDL Ratio 03/14/19 03/14/19 03/14/19 17:46 17:55 18:29 WBC RBC Hgb Hct MCV MCH MCHC RDW Plt Count Add Manual Diff Total Counted Seg Neuts % (Manual) Band Neutrophils % Lymphocytes % (Manual) Reactive Lymphs % (Man) Monocytes % (Manual) Eosinophils % (Manual) Basophils % (Manual) Metamyelocytes % Myelocytes % Promyelocytes % Blast Cells % Nucleated RBC % Seg Neutrophils # Man Band Neutrophils # Lymphocytes # (Manual) Abs React Lymphs (Man) Monocytes # (Manual) Eosinophils # (Manual) Basophils # (Manual) Metamyelocytes # Myelocytes # Promyelocytes # Blast Cells # WBC Morphology Hypersegmented Neuts Hyposegmented Neuts Hypogranular Neuts Smudge Cells Toxic Granulation Toxic Vacuolation Dohle Bodies Pelger-Huet Anomaly Sheila Rods Platelet Estimate Clumped Platelets Plt Clumps, EDTA Large Platelets Giant Platelets Platelet Satelliting Plt Morphology Comment RBC Morphology Dimorphic RBCs Polychromasia Hypochromasia Poikilocytosis Anisocytosis Microcytosis Macrocytosis Spherocytes Pappenheimer Bodies Sickle Cells Target Cells Tear Drop Cells Ovalocytes Helmet Cells [place] Bodies [place] Rings [place] Cells Bite Cells Crenated Cell Elliptocytes Acanthocytes (Spur) Rouleaux Hemoglobin C Crystals Schistocytes Malaria parasites [place] Bodies Hem Pathologist Commnt POC ABG pH 7.244 L POC ABG pCO2 50.1 H POC ABG pO2 156 H POC ABG HCO3 21.6 POC ABG Total CO2 23 POC ABG O2 Sat 99 POC ABG Base Excess -6 FiO2 100 Sodium Potassium Chloride Carbon Dioxide Anion Gap BUN Creatinine Estimated GFR BUN/Creatinine Ratio Glucose POC Glucose 49 L 57 L Lactic Acid Calcium Total Bilirubin AST ALT Alkaline Phosphatase Total Creatine Kinase CK-MB (CK-2) CK-MB (CK-2) Rel Index Troponin T Total Protein Albumin Albumin/Globulin Ratio Triglycerides Cholesterol LDL Cholesterol Direct HDL Cholesterol Cholesterol/HDL Ratio 03/14/19 03/14/19 03/14/19 18:32 20:27 23:47 WBC RBC Hgb Hct MCV MCH MCHC RDW Plt Count Add Manual Diff Total Counted Seg Neuts % (Manual) Band Neutrophils % Lymphocytes % (Manual) Reactive Lymphs % (Man) Monocytes % (Manual) Eosinophils % (Manual) Basophils % (Manual) Metamyelocytes % Myelocytes % Promyelocytes % Blast Cells % Nucleated RBC % Seg Neutrophils # Man Band Neutrophils # Lymphocytes # (Manual) Abs React Lymphs (Man) Monocytes # (Manual) Eosinophils # (Manual) Basophils # (Manual) Metamyelocytes # Myelocytes # Promyelocytes # Blast Cells # WBC Morphology Hypersegmented Neuts Hyposegmented Neuts Hypogranular Neuts Smudge Cells Toxic Granulation Toxic Vacuolation Dohle Bodies Pelger-Huet Anomaly Sheila Rods Platelet Estimate Clumped Platelets Plt Clumps, EDTA Large Platelets Giant Platelets Platelet Satelliting Plt Morphology Comment RBC Morphology Dimorphic RBCs Polychromasia Hypochromasia Poikilocytosis Anisocytosis Microcytosis Macrocytosis Spherocytes Pappenheimer Bodies Sickle Cells Target Cells Tear Drop Cells Ovalocytes Helmet Cells [place] Bodies [place] Rings [place] Cells Bite Cells Crenated Cell Elliptocytes Acanthocytes (Spur) Rouleaux Hemoglobin C Crystals Schistocytes Malaria parasites [place] Bodies Hem Pathologist Commnt POC ABG pH POC ABG pCO2 POC ABG pO2 POC ABG HCO3 POC ABG Total CO2 POC ABG O2 Sat POC ABG Base Excess FiO2 Sodium 141 Potassium 4.2 Chloride 112.6 H Carbon Dioxide 19 L Anion Gap 14 BUN 15 Creatinine 1.4 H Estimated GFR 46 BUN/Creatinine Ratio 11 Glucose 132 H POC Glucose 115 H 116 H Lactic Acid Calcium 8.4 Total Bilirubin AST ALT Alkaline Phosphatase Total Creatine Kinase CK-MB (CK-2) CK-MB (CK-2) Rel Index Troponin T Total Protein Albumin Albumin/Globulin Ratio Triglycerides Cholesterol LDL Cholesterol Direct HDL Cholesterol Cholesterol/HDL Ratio 03/14/19 03/15/19 03/15/19 Unknown 04:00 04:00 WBC 6.9 RBC 2.77 L Hgb 8.5 L Hct 27.3 L MCV 98 H MCH 31 MCHC 31 RDW 23.0 H Plt Count 27 L Add Manual Diff Total Counted Seg Neuts % (Manual) Band Neutrophils % Lymphocytes % (Manual) Reactive Lymphs % (Man) Monocytes % (Manual) Eosinophils % (Manual) Basophils % (Manual) Metamyelocytes % Myelocytes % Promyelocytes % Blast Cells % Nucleated RBC % Seg Neutrophils # Man Band Neutrophils # Lymphocytes # (Manual) Abs React Lymphs (Man) Monocytes # (Manual) Eosinophils # (Manual) Basophils # (Manual) Metamyelocytes # Myelocytes # Promyelocytes # Blast Cells # WBC Morphology Hypersegmented Neuts Hyposegmented Neuts Hypogranular Neuts Smudge Cells Toxic Granulation Toxic Vacuolation Dohle Bodies Pelger-Huet Anomaly Sheila Rods Platelet Estimate Clumped Platelets Plt Clumps, EDTA Large Platelets Giant Platelets Platelet Satelliting Plt Morphology Comment RBC Morphology Dimorphic RBCs Polychromasia Hypochromasia Poikilocytosis Anisocytosis Microcytosis Macrocytosis Spherocytes Pappenheimer Bodies Sickle Cells Target Cells Tear Drop Cells Ovalocytes Helmet Cells [place] Bodies [place] Cells Bite Cells Crenated Cell Elliptocytes Acanthocytes (Spur) Rouleaux Hemoglobin C Crystals Schistocytes Malaria parasites [place] Bodies Hem Pathologist Commnt POC ABG pH POC ABG pCO2 POC ABG pO2 POC ABG HCO3 POC ABG Total CO2 POC ABG O2 Sat POC ABG Base Excess FiO2 Sodium 141 Potassium 4.8 Chloride 112.1 H Carbon Dioxide 19 L Anion Gap 15 BUN 17 Creatinine 1.5 H Estimated GFR 42 BUN/Creatinine Ratio 11 Glucose 123 H POC Glucose Lactic Acid 3.30 H* Calcium 8.2 L Total Bilirubin AST ALT Alkaline Phosphatase Total Creatine Kinase CK-MB (CK-2) CK-MB (CK-2) Rel Index Troponin T Total Protein Albumin Albumin/Globulin Ratio Triglycerides Cholesterol LDL Cholesterol Direct HDL Cholesterol Cholesterol/HDL Ratio 03/15/19 03/15/19 03/15/19 05:30 05:47 06:24 WBC RBC Hgb Hct MCV MCH MCHC RDW Plt Count Add Manual Diff Total Counted Seg Neuts % (Manual) Band Neutrophils % Lymphocytes % (Manual) Reactive Lymphs % (Man) Monocytes % (Manual) Eosinophils % (Manual) Basophils % (Manual) Metamyelocytes % Myelocytes % Promyelocytes % Blast Cells % Nucleated RBC % Seg Neutrophils # Man Band Neutrophils # Lymphocytes # (Manual) Abs React Lymphs (Man) Monocytes # (Manual) Eosinophils # (Manual) Basophils # (Manual) Metamyelocytes # Myelocytes # Promyelocytes # Blast Cells # WBC Morphology Hypersegmented Neuts Hyposegmented Neuts Hypogranular Neuts Smudge Cells Toxic Granulation Toxic Vacuolation Dohle Bodies Pelger-Huet Anomaly Sheila Rods Platelet Estimate Clumped Platelets Plt Clumps, EDTA Large Platelets Giant Platelets Platelet Satelliting Plt Morphology Comment RBC Morphology Dimorphic RBCs Polychromasia Hypochromasia Poikilocytosis Anisocytosis Microcytosis Macrocytosis Spherocytes Pappenheimer Bodies Sickle Cells Target Cells Tear Drop Cells Ovalocytes Helmet Cells [place] Bodies [place] Rings [place] Cells Bite Cells Crenated Cell Elliptocytes Acanthocytes (Spur) Rouleaux Hemoglobin C Crystals Schistocytes Malaria parasites [place] Bodies Hem Pathologist Commnt POC ABG pH 7.303 L 7.243 L POC ABG pCO2 45.8 H 52.2 H POC ABG pO2 50 L POC ABG HCO3 22.7 22.5 POC ABG Total CO2 24 24 POC ABG O2 Sat 81 77 POC ABG Base Excess -4 -5 FiO2 80 80 Sodium Potassium Chloride Carbon Dioxide Anion Gap BUN Creatinine Estimated GFR BUN/Creatinine Ratio Glucose POC Glucose 140 H Lactic Acid Calcium Total Bilirubin AST ALT Alkaline Phosphatase Total Creatine Kinase CK-MB (CK-2) CK-MB (CK-2) Rel Index Troponin T Total Protein Albumin Albumin/Globulin Ratio Triglycerides Cholesterol LDL Cholesterol Direct HDL Cholesterol Cholesterol/HDL Ratio 03/15/19 07:35 WBC RBC Hgb Hct MCV MCH MCHC RDW Plt Count Add Manual Diff Total Counted Seg Neuts % (Manual) Band Neutrophils % Lymphocytes % (Manual) Reactive Lymphs % (Man) Monocytes % (Manual) Eosinophils % (Manual) Basophils % (Manual) Metamyelocytes % Myelocytes % Promyelocytes % Blast Cells % Nucleated RBC % Seg Neutrophils # Man Band Neutrophils # Lymphocytes # (Manual) Abs React Lymphs (Man) Monocytes # (Manual) Eosinophils # (Manual) Basophils # (Manual) Metamyelocytes # Myelocytes # Promyelocytes # Blast Cells # WBC Morphology Hypersegmented Neuts Hyposegmented Neuts Hypogranular Neuts Smudge Cells Toxic Granulation Toxic Vacuolation Dohle Bodies Pelger-Huet Anomaly Sheila Rods Platelet Estimate Clumped Platelets Plt Clumps, EDTA Large Platelets Giant Platelets Platelet Satelliting Plt Morphology Comment RBC Morphology Dimorphic RBCs Polychromasia Hypochromasia Poikilocytosis Anisocytosis Microcytosis Macrocytosis Spherocytes Pappenheimer Bodies Sickle Cells Target Cells Tear Drop Cells Ovalocytes Helmet Cells [place] Bodies [place] Rings [place] Cells Bite Cells Crenated Cell Elliptocytes Acanthocytes (Spur) Rouleaux Hemoglobin C Crystals Schistocytes Malaria parasites [place] Bodies Hem Pathologist Commnt POC ABG pH 7.282 L POC ABG pCO2 50.4 H POC ABG pO2 71 L POC ABG HCO3 23.8 POC ABG Total CO2 25 POC ABG O2 Sat 92 POC ABG Base Excess -3 FiO2 80 Sodium Potassium Chloride Carbon Dioxide Anion Gap BUN Creatinine Estimated GFR BUN/Creatinine Ratio Glucose POC Glucose Lactic Acid Calcium Total Bilirubin AST ALT Alkaline Phosphatase Total Creatine Kinase CK-MB (CK-2) CK-MB (CK-2) Rel Index Troponin T Total Protein Albumin Albumin/Globulin Ratio Triglycerides Cholesterol LDL Cholesterol Direct HDL Cholesterol Cholesterol/HDL Ratio Medications & Allergies - Medications Allergies/Adverse Reactions: Allergies No Known Allergies Allergy (Verified 01/06/17 23:38) Per son Home Medications: Home Medications Medication Instructions Recorded Confirmed Last Taken Type Folic Acid [Folvite] 1 mg PO QDAY #30 tablet 08/12/18 03/10/19 03/09/19 Rx Haloperidol [Haldol] 0.5 mg PO Q6H PRN #30 tablet 08/12/18 03/10/19 03/10/19 Rx Lactulose [Cephulac] 20 gm PO Q12H #1 bottle 08/12/18 03/10/19 03/09/19 Rx Rifaximin [Xifaxan] 550 mg PO BID #60 tablet 08/12/18 03/10/19 03/09/19 Rx Thiamine [Vitamin B-1] 100 mg PO QDAY #30 tablet 08/12/18 03/10/19 03/09/19 Rx amLODIPine 5 mg PO QDAY #30 tablet 08/12/18 03/10/19 03/09/19 Rx chlordiazePOXIDE [Librium] 25 mg PO DAILY #3 capsule 08/12/18 03/10/19 03/09/19 Rx ALBUTEROL NEB's [Proventil] 2.5 mg IH TID PRN 02/06/19 03/10/19 03/09/19 History Acetaminophen [Tylenol] 650 mg PO Q6HR PRN 02/06/19 03/10/19 03/09/19 History Fluticasone [Flonase] 1 spray NS QDAY 02/06/19 03/10/19 03/09/19 History Ipratropium/Albuterol Sulfate 1 spray IH QID 02/06/19 03/10/19 03/09/19 History [Combivent Respimat] Melatonin [Melatonin 10MG CAP] 10 mg PO QHS 02/06/19 03/10/19 03/09/19 History Active Medications: Generic Name Dose Route Start Last Admin Trade Name Freq PRN Reason Stop Dose Admin Acetaminophen 650 mg 03/10/19 17:46 Tylenol PO Q4H PRN Pain MILD(1-3)/Fever >100.5/GUERRERO Albuterol 2.5 mg 03/11/19 03:52 Proventil IH TID PRN Wheezing Albuterol/Ipratropium 1 ampul 03/11/19 08:00 03/15/19 01:17 Duoneb *Not For Prn Use* IH 1 ampul Q6HRT CONNIE Administration Lipase/Protease/Amylase 1 each 03/14/19 13:25 Pancremartine Sahni 10,500 Unit FEEDTUBE PRN PRN For Clogged Feeding Tube Chlordiazepoxide HCl 25 mg 03/11/19 10:00 03/14/19 16:40 Librium PO 25 mg DAILY CONNIE Administration Dextrose 50 ml 03/10/19 22:27 03/14/19 17:55 D50w (25gm) Syringe IV 50 ml Q30MIN PRN Administration Hypoglycemia Fluticasone Propionate 50 mcg 03/11/19 10:00 03/14/19 13:21 Flonase NS Not Given QDAY CONNIE Folic Acid 1 mg 03/11/19 10:00 03/14/19 16:40 Folvite PO 1 mg QDAY CONNIE Administration Haloperidol 0.5 mg 03/11/19 03:52 03/12/19 09:32 Haldol PO 0.5 mg Q6H PRN Administration Agitation Hydrophilic Ointment 1 applic 03/14/19 06:51 Vaseline Lip Therapy TP Q2HR PRN Dry Lips Propofol 1,000 mg in 100 mls @ 2.587 mls/hr 03/14/19 07:00 03/14/19 12:00 Diprivan 10 Mg/Ml IV 0 mcg/kg/min TITR CONNIE 0 mls/hr Titration Protocol 5 MCG/KG/MIN Piperacillin Sod/Tazobactam Sod 4.5 gm in 100 mls @ 200 mls/hr 03/14/19 08:00 03/15/19 06:22 Zosyn/Ns 4.5gm/100ml IV 200 mls/hr Q6HR CONNIE Administration Protocol Fentanyl Citrate 2,000 mcg in 100 mls @ 4.312 mls/hr 03/14/19 11:00 03/15/19 07:41 Fentanyl Drip Premix IV 1 mcg/kg/hr TITR CONNIE 4.312 mls/hr Titration Protocol 1 MCG/KG/HR Dextrose/Sodium Chloride 1,000 mls @ 125 mls/hr 03/14/19 14:50 03/15/19 00:01 D5ns IV 125 mls/hr DIRECT CONNIE Administration Vasopressin 20 unit/ Sodium 101 mls @ 9.09 mls/hr 03/14/19 14:00 03/15/19 00:04 Chloride IV 0.03 units/min TITR CONNIE 9.09 mls/hr Administration Protocol 0.03 UNITS/MIN Daptomycin 700 mg/ Sodium 100 mls @ 200 mls/hr 03/14/19 18:00 03/14/19 18:19 Chloride IV 200 mls/hr Q24H CONNIE Administration Protocol Dopamine HCl/Dextrose 800 mg in 250 mls @ 3.234 mls/hr 03/14/19 22:00 03/14/19 21:41 Intropin Drip 800 Mg/D5w 250 Ml IV 5 mcg/kg/min TITR CONNIE 8.084 mls/hr Administration Protocol 2 MCG/KG/MIN Insulin Human Lispro 0 unit 03/11/19 00:00 03/15/19 06:22 Humalog SUB-Q Not Given Q6HR [facility] Protocol Morphine Sulfate 2 mg 03/10/19 17:56 03/15/19 02:12 Morphine IV 2 mg Q4H PRN Administration Pain, Moderate (4-6) Multi-Ingred Cream/Lotion/Oil/Oint 1 applic 03/14/19 06:51 Artificial Tears Ophth Oint OU Q4HR PRN Dry Eye(s) Ondansetron HCl 4 mg 03/10/19 17:46 03/11/19 05:04 Zofran IV 4 mg Q8H PRN Administration Nausea And Vomiting Rifaximin 550 mg 03/11/19 10:00 03/14/19 22:08 Xifaxan PO 550 mg BID CONNIE Administration Simple Syrup 15 ml 03/14/19 13:25 Simple Syrup FEEDTUBE PRN PRN Hypoglycemia Simple Syrup 30 ml 03/14/19 13:25 Simple Syrup FEEDTUBE PRN PRN Hypoglycemia Sodium Bicarbonate 325 mg 03/14/19 13:25 Sodium Bicarbonate FEEDTUBE PRN PRN For Clogged Feeding Tube Sodium Chloride 10 ml 03/10/19 22:00 03/14/19 22:08 Sodium Chloride Flush Syringe 10 Ml IV 10 ml BID CONNIE Administration Sodium Chloride 10 ml 03/10/19 17:46 03/13/19 22:50 Sodium Chloride Flush Syringe 10 Ml IV 10 ml PRN PRN Administration LINE FLUSH Thiamine HCl 100 mg 03/11/19 10:00 03/14/19 16:40 Vitamin B-1 PO 100 mg QDAY CONNIE Administration
[2019-03-15 08:16] LABS: Band Neutrophils # (Manual) 1.2 K/mm3; Basophils % (Manual) 0 % (0.0-1.8); Total Cells Counted 100
[2019-03-15 08:17] LABS: Anisocytosis 1+; Platelet Estimate Consistent w Auto
[2019-03-15] MEDS: FOLIC ACID 1 MG TAB PO SCH (09:03)
[2019-03-15] MEDS: THIAMINE 100 MG TAB PO SCH (09:04)
[2019-03-15] MEDS: chlordiazePOXIDE 25 MG CAP PO SCH (09:04)
[2019-03-15] MEDS: RIFAXIMIN 550 MG TAB PO SCH ×2 (09:06→21:24)
[2019-03-15] MEDS: FLUTICASONE PROPIONATE NASAL SPRAY 16 GM NS SCH (09:07)
--- NOTE | 2019-03-15 09:52 | Progress Note ---
Assessment and Plan Severe sepsis with septic shock Cardiac arrest-asystole with ROSC Acute hypoxic respiratory failure on MVS Lactic acidosis- multifactorial Acute toxic- metabolic encephalopathy Aspiration pneumonia VRE UTI Hypernatremia Thrombocytopenia h/o Cirrhosis h/o Alcohol abuse disorder KERRI Hyperkalemia - Continue to wean vasopressor support for MAP>65, currently on vasopressin Add dopamine if needed, place central venous access -Volume resuscitation per sepsis protocol -VAP bundle addressed -Aspiration precautions, HOB>40 degrees - Lung protective strategies -Wean FIO2 for O2 sats>90% , once FIO2 is down to 50%, wean PEEP -CXR, ABG in am -CBC, BMP in am -Avoid nephrotoxins and adjust all medications fro GFR and CrCL -Daily assessment fro weaning readiness -Start tube feedings -Agitation management, Pain management -Empiric antibiotics for aspiration PNA, antibiotics for VRE, de-escalate based on cultures and clinical status -Continue contact isolation - Continue VTE prophylaxis ( SCDs), trend platelet counts and monitor for bleeding -Stress ulcer prophylaxis - Accuchecks with glycemic control for SSI (While critically ill target blood glucose of 140-180 mg/dL; avoid hypoglycemia) - Continue mobility protocol for pressure ulcer prevention - Continue to monitor hemodynamics closely -Monitor electrolyte profile closely and replete as indicated -Chronic home medications, continue as clinically indicated - Continue to hold off on neuro-imaging for now - Continue Andersen catheter in this critically ill patient, with poor urine output, requiring accurate intake and output monitoring. CONDITION: CRITICAL PROGNOSIS: GUARDED CODE STATUS: FULL CODE The high probability of a clinically significant, sudden or life-threatening deterioration of the [respiratory, cardiovascular, neurology, hematology] system(s) required my full and direct attention, intervention and personal manag ement. The aggregate critical care time was [35] minutes without overlap. Time includes spent on; [x] Data Review and interpretation [x] Patient assessment and monitoring of vital signs [x] Documentation [x] Medication orders and management Subjective Date of service: 03/15/19 Principal diagnosis: low plt Interval history: Follow up for severe sepsis with septic shock; acute hypoxemic respiratory failure on MVS; s/p cardiac arrest with ROSC; VRE UTI; aspiration pneumonia; Patient seen and examined. Vitals, labs, medications, chart and imaging r eviewed. Events overnight were managed remotely. She remains on vasopressin and dopamine at 5mcg, now making urine: no fevers, no vomiting; weaning supplemental oxygen Remains critically ill on full ventilatory support Objective - Exam Narrative Exam: General appearance: other (no respiratory distress, no patient-ventilator dys- synchrony) Eyes: non-icteric ENT: oropharynx dry, other (ETT at 23cm at the lip, small bowel feeding tube in nares) Neck: supple, no lymphadenopathy, no JVD Effort: mildly labored Ascultation: Bilateral: diminished breath sounds, rhonchi Cardiovascular: regular rate and rhythm, other (S1, S2, no murmurs, gallops or rubs rhythm strip shows accelerated junctional ) Gastrointestinal: normoactive bowel sounds, soft, non-tender, other (non distended, Andersen minimal urine output) Integumentary: normal Extremities: no cyanosis, no edema, pink and warm, pulses normal, no ischemia or petechiae Neurology- Obeys simple commands Vital Signs - 12hr 03/14/19 03/14/19 03/14/19 22:00 22:15 22:30 Temperature Pulse Rate 81 95 H 98 H Pulse Rate [ Anterior Bilateral Throughout] Pulse Rate [ From Monitor] Respiratory 23 24 15 Rate Respiratory Rate [Anterior Bilateral Throughout] Blood Pressure 99/58 110/62 119/70 O2 Sat by Pulse 98 85 88 Oximetry 03/14/19 03/14/19 03/14/19 22:41 22:45 23:00 Temperature Pulse Rate 102 H 103 H 99 H Pulse Rate [ Anterior Bilateral Throughout] Pulse Rate [ From Monitor] Respiratory 18 14 24 Rate Respiratory Rate [Anterior Bilateral Throughout] Blood Pressure 119/70 117/78 112/64 O2 Sat by Pulse 96 89 100 Oximetry 03/14/19 03/14/19 03/14/19 23:15 23:31 23:45 Temperature Pulse Rate 99 H 100 H 96 H Pulse Rate [ Anterior Bilateral Throughout] Pulse Rate [ From Monitor] Respiratory 24 23 24 Rate Respiratory Rate [Anterior Bilateral Throughout] Blood Pressure 108/63 117/58 104/62 O2 Sat by Pulse 99 88 97 Oximetry 03/15/19 03/15/19 03/15/19 00:00 00:15 00:20 Temperature 97.3 F L Pulse Rate 101 H 96 H Pulse Rate [ Anterior Bilateral Throughout] Pulse Rate [ 97 H From Monitor] Respiratory 22 7 L 24 Rate Respiratory Rate [Anterior Bilateral Throughout] Blood Pressure 102/65 106/64 O2 Sat by Pulse 100 100 Oximetry 03/15/19 03/15/19 03/15/19 00:30 00:45 00:50 Temperature Pulse Rate 95 H 96 H 96 H Pulse Rate [ Anterior Bilateral Throughout] Pulse Rate [ From Monitor] Respiratory 18 22 Rate Respiratory Rate [Anterior Bilateral Throughout] Blood Pressure 95/65 91/64 91/64 O2 Sat by Pulse 100 100 100 Oximetry 03/15/19 03/15/19 03/15/19 01:00 01:15 01:27 Temperature Pulse Rate 94 H 98 H Pulse Rate [ 100 H Anterior Bilateral Throughout] Pulse Rate [ From Monitor] Respiratory 24 6 L Rate Respiratory 24 Rate [Anterior Bilateral Throughout] Blood Pressure 103/64 112/65 O2 Sat by Pulse 100 100 Oximetry 03/15/19 03/15/19 03/15/19 01:30 01:45 02:01 Temperature Pulse Rate 100 H 100 H 101 H Pulse Rate [ Anterior Bilateral Throughout] Pulse Rate [ From Monitor] Respiratory 13 24 10 L Rate Respiratory Rate [Anterior Bilateral Throughout] Blood Pressure 96/54 112/52 103/56 O2 Sat by Pulse 100 100 100 Oximetry 03/15/19 03/15/19 03/15/19 02:15 02:30 02:45 Temperature Pulse Rate 105 H 103 H 103 H Pulse Rate [ Anterior Bilateral Throughout] Pulse Rate [ From Monitor] Respiratory 12 14 17 Rate Respiratory Rate [Anterior Bilateral Throughout] Blood Pressure 112/62 116/67 129/75 O2 Sat by Pulse 100 95 100 Oximetry 03/15/19 03/15/19 03/15/19 03:00 03:15 03:30 Temperature Pulse Rate 100 H 96 H 96 H Pulse Rate [ Anterior Bilateral Throughout] Pulse Rate [ From Monitor] Respiratory 17 15 15 Rate Respiratory Rate [Anterior Bilateral Throughout] Blood Pressure 107/74 111/63 115/64 O2 Sat by Pulse 99 100 100 Oximetry 03/15/19 03/15/19 03/15/19 03:45 04:00 04:13 Temperature 97 F L Pulse Rate 95 H 92 H Pulse Rate [ Anterior Bilateral Throughout] Pulse Rate [ 92 H From Monitor] Respiratory 15 17 Rate Respiratory Rate [Anterior Bilateral Throughout] Blood Pressure 113/72 97/58 O2 Sat by Pulse 99 100 Oximetry 03/15/19 03/15/19 03/15/19 04:15 04:31 04:45 Temperature Pulse Rate 95 H 95 H 96 H Pulse Rate [ Anterior Bilateral Throughout] Pulse Rate [ From Monitor] Respiratory 14 15 15 Rate Respiratory Rate [Anterior Bilateral Throughout] Blood Pressure 98/62 111/60 110/60 O2 Sat by Pulse 98 100 100 Oximetry 03/15/19 03/15/19 03/15/19 04:57 05:00 05:15 Temperature Pulse Rate 96 H 96 H 90 Pulse Rate [ Anterior Bilateral Throughout] Pulse Rate [ From Monitor] Respiratory 20 25 H Rate Respiratory Rate [Anterior Bilateral Throughout] Blood Pressure 113/60 113/60 O2 Sat by Pulse 100 100 100 Oximetry 03/15/19 03/15/19 03/15/19 05:30 05:45 06:00 Temperature Pulse Rate 96 H 91 H 96 H Pulse Rate [ Anterior Bilateral Throughout] Pulse Rate [ From Monitor] Respiratory 22 21 25 H Rate Respiratory Rate [Anterior Bilateral Throughout] Blood Pressure 115/55 106/60 101/54 O2 Sat by Pulse 100 100 100 Oximetry 03/15/19 03/15/19 03/15/19 06:15 06:30 06:45 Temperature Pulse Rate 94 H 92 H 93 H Pulse Rate [ Anterior Bilateral Throughout] Pulse Rate [ From Monitor] Respiratory 22 18 24 Rate Respiratory Rate [Anterior Bilateral Throughout] Blood Pressure 92/62 102/52 95/48 O2 Sat by Pulse 100 97 100 Oximetry 03/15/19 03/15/19 03/15/19 07:00 07:15 07:30 Temperature Pulse Rate 90 92 H 93 H Pulse Rate [ Anterior Bilateral Throughout] Pulse Rate [ From Monitor] Respiratory 24 14 24 Rate Respiratory Rate [Anterior Bilateral Throughout] Blood Pressure 96/50 91/43 91/49 O2 Sat by Pulse 100 100 100 Oximetry 03/15/19 03/15/19 03/15/19 07:41 07:45 07:49 Temperature 99.2 F Pulse Rate 90 93 H Pulse Rate [ Anterior Bilateral Throughout] Pulse Rate [ From Monitor] Respiratory 21 Rate Respiratory Rate [Anterior Bilateral Throughout] Blood Pressure 96/57 96/57 O2 Sat by Pulse 100 100 Oximetry 03/15/19 03/15/19 03/15/19 08:00 08:05 08:15 Temperature Pulse Rate 93 H 95 H Pulse Rate [ 101 H Anterior Bilateral Throughout] Pulse Rate [ From Monitor] Respiratory 18 21 Rate Respiratory 24 Rate [Anterior Bilateral Throughout] Blood Pressure 108/57 113/60 O2 Sat by Pulse 100 100 Oximetry 03/15/19 03/15/19 03/15/19 08:30 08:45 09:00 Temperature Pulse Rate 86 98 H 95 H Pulse Rate [ Anterior Bilateral Throughout] Pulse Rate [ From Monitor] Respiratory 24 10 L 14 Rate Respiratory Rate [Anterior Bilateral Throughout] Blood Pressure 101/49 107/51 106/47 O2 Sat by Pulse 100 100 100 Oximetry CBC and BMP: 03/15/19 04:00 03/15/19 04:00 ABG, PT/INR, D-dimer: ABG POC ABG pH 7.282 (7.35-7.45) L 03/15/19 07:35 POC ABG pCO2 50.4 (35-45) H 03/15/19 07:35 POC ABG pO2 71 (80-105) L 03/15/19 07:35 POC ABG HCO3 23.8 (22-26 mml/L) 03/15/19 07:35 POC ABG Total CO2 25 (23-27mmol/L) 03/15/19 07:35 POC ABG O2 Sat 92 03/15/19 07:35 Abnormal lab findings: Abnormal Labs 03/10/19 03/10/19 03/10/19 13:16 13:16 14:38 WBC 0.8 L* RBC 3.35 L Hgb Hct MCV RDW 22.1 H Plt Count 78 L Seg Neuts % (Manual) Lymphocytes % (Manual) 49.0 H Monocytes % (Manual) Eosinophils % (Manual) Nucleated RBC % Seg Neutrophils # Man 0.3 L Lymphocytes # (Manual) 0.4 L POC ABG pH POC ABG pCO2 POC ABG pO2 Sodium 147 H Potassium 5.4 H Chloride 111.8 H Carbon Dioxide Creatinine 0.6 L Glucose POC Glucose Lactic Acid Calcium AST 128 H ALT 79 H Alkaline Phosphatase 174 H CK-MB (CK-2) CK-MB (CK-2) Rel Index Troponin T Total Protein Albumin 2.4 L Urine WBC (Auto) 9.0 H Vancomycin Trough 03/10/19 03/10/19 03/11/19 21:22 23:36 07:29 WBC RBC Hgb Hct MCV RDW Plt Count Seg Neuts % (Manual) Lymphocytes % (Manual) Monocytes % (Manual) Eosinophils % (Manual) Nucleated RBC % Seg Neutrophils # Man Lymphocytes # (Manual) POC ABG pH POC ABG pCO2 POC ABG pO2 Sodium 148 H Potassium 5.6 H Chloride 122.3 H Carbon Dioxide 20 L Creatinine 0.6 L Glucose POC Glucose 65 L 112 H Lactic Acid Calcium AST 102 H ALT 65 H Alkaline Phosphatase 134 H CK-MB (CK-2) CK-MB (CK-2) Rel Index Troponin T Total Protein 6.1 L Albumin 1.8 L Urine WBC (Auto) Vancomycin Trough 03/11/19 03/11/19 03/11/19 11:25 15:28 18:00 WBC 1.2 L* RBC Hgb Hct MCV RDW 22.1 H Plt Count 53 L Seg Neuts % (Manual) 78.6 H Lymphocytes % (Manual) 9.5 L Monocytes % (Manual) 9.5 H Eosinophils % (Manual) Nucleated RBC % Seg Neutrophils # Man 0.9 L Lymphocytes # (Manual) 0.1 L POC ABG pH POC ABG pCO2 POC ABG pO2 Sodium Potassium Chloride Carbon Dioxide Creatinine Glucose POC Glucose 117 H 118 H Lactic Acid Calcium AST ALT Alkaline Phosphatase CK-MB (CK-2) CK-MB (CK-2) Rel Index Troponin T Total Protein Albumin Urine WBC (Auto) Vancomycin Trough 03/12/19 03/12/19 03/12/19 00:19 05:45 08:55 WBC 2.4 L RBC 3.33 L Hgb Hct MCV RDW 22.8 H Plt Count 58 L Seg Neuts % (Manual) 93.0 H Lymphocytes % (Manual) 4.0 L Monocytes % (Manual) Eosinophils % (Manual) Nucleated RBC % 7.0 H Seg Neutrophils # Man Lymphocytes # (Manual) 0.1 L POC ABG pH POC ABG pCO2 POC ABG pO2 Sodium Potassium Chloride Carbon Dioxide Creatinine Glucose POC Glucose 124 H 116 H Lactic Acid Calcium AST ALT Alkaline Phosphatase CK-MB (CK-2) CK-MB (CK-2) Rel Index Troponin T Total Protein Albumin Urine WBC (Auto) Vancomycin Trough 03/12/19 03/13/19 03/13/19 08:55 00:18 03:48 WBC 2.7 L RBC 3.06 L Hgb 9.4 L Hct 29.4 L MCV RDW 23.1 H Plt Count 62 L Seg Neuts % (Manual) 76.0 H Lymphocytes % (Manual) Monocytes % (Manual) Eosinophils % (Manual) Nucleated RBC % 11.0 H Seg Neutrophils # Man Lymphocytes # (Manual) 0.5 L POC ABG pH POC ABG pCO2 POC ABG pO2 Sodium Potassium 5.6 H Chloride 114.2 H Carbon Dioxide 21 L Creatinine Glucose POC Glucose 119 H Lactic Acid Calcium AST ALT Alkaline Phosphatase CK-MB (CK-2) CK-MB (CK-2) Rel Index Troponin T Total Protein Albumin Urine WBC (Auto) Vancomycin Trough 03/13/19 03/13/19 03/13/19 03:48 05:52 05:58 WBC RBC Hgb Hct MCV RDW Plt Count Seg Neuts % (Manual) Lymphocytes % (Manual) Monocytes % (Manual) Eosinophils % (Manual) Nucleated RBC % Seg Neutrophils # Man Lymphocytes # (Manual) POC ABG pH POC ABG pCO2 POC ABG pO2 Sodium Potassium Chloride 112.7 H Carbon Dioxide 21 L Creatinine Glucose 103 H POC Glucose 114 H Lactic Acid Calcium AST ALT Alkaline Phosphatase CK-MB (CK-2) CK-MB (CK-2) Rel Index Troponin T Total Protein Albumin Urine WBC (Auto) Vancomycin Trough 39.7 H 03/13/19 03/13/19 03/14/19 12:12 18:00 00:17 WBC RBC Hgb Hct MCV RDW Plt Count Seg Neuts % (Manual) Lymphocytes % (Manual) Monocytes % (Manual) Eosinophils % (Manual) Nucleated RBC % Seg Neutrophils # Man Lymphocytes # (Manual) POC ABG pH POC ABG pCO2 POC ABG pO2 Sodium Potassium Chloride Carbon Dioxide Creatinine Glucose POC Glucose 116 H 132 H 130 H Lactic Acid Calcium AST ALT Alkaline Phosphatase CK-MB (CK-2) CK-MB (CK-2) Rel Index Troponin T Total Protein Albumin Urine WBC (Auto) Vancomycin Trough 03/14/19 03/14/19 03/14/19 05:24 06:44 06:44 WBC 2.6 L RBC 3.00 L Hgb 9.2 L Hct 28.3 L MCV RDW 22.5 H Plt Count 44 L Seg Neuts % (Manual) 75.0 H Lymphocytes % (Manual) Monocytes % (Manual) Eosinophils % (Manual) 5.0 H Nucleated RBC % 19.0 H Seg Neutrophils # Man Lymphocytes # (Manual) 0.4 L POC ABG pH POC ABG pCO2 POC ABG pO2 Sodium Potassium Chloride 110.2 H Carbon Dioxide 21 L Creatinine 1.3 H Glucose POC Glucose 110 H Lactic Acid Calcium AST 144 H ALT 90 H Alkaline Phosphatase 226 H CK-MB (CK-2) 8.6 H CK-MB (CK-2) Rel Index 7.1 H Troponin T 0.056 H D Total Protein Albumin 2.2 L Urine WBC (Auto) Vancomycin Trough 03/14/19 03/14/19 03/14/19 09:05 11:54 12:15 WBC RBC Hgb Hct MCV RDW Plt Count Seg Neuts % (Manual) Lymphocytes % (Manual) Monocytes % (Manual) Eosinophils % (Manual) Nucleated RBC % Seg Neutrophils # Man Lymphocytes # (Manual) POC ABG pH 7.283 L 7.458 H POC ABG pCO2 54.9 H 32.7 L POC ABG pO2 76 L Sodium Potassium Chloride Carbon Dioxide Creatinine Glucose POC Glucose Lactic Acid 2.10 H* Calcium AST ALT Alkaline Phosphatase CK-MB (CK-2) CK-MB (CK-2) Rel Index Troponin T Total Protein Albumin Urine WBC (Auto) Vancomycin Trough 03/14/19 03/14/19 03/14/19 12:43 13:35 15:35 WBC RBC Hgb Hct MCV RDW Plt Count Seg Neuts % (Manual) Lymphocytes % (Manual) Monocytes % (Manual) Eosinophils % (Manual) Nucleated RBC % Seg Neutrophils # Man Lymphocytes # (Manual) POC ABG pH POC ABG pCO2 POC ABG pO2 Sodium Potassium Chloride Carbon Dioxide Creatinine Glucose POC Glucose 68 L Lactic Acid 2.10 H* 3.50 H* Calcium AST ALT Alkaline Phosphatase CK-MB (CK-2) CK-MB (CK-2) Rel Index Troponin T Total Protein Albumin Urine WBC (Auto) Vancomycin Trough 03/14/19 03/14/19 03/14/19 17:34 17:46 17:55 WBC RBC Hgb Hct MCV RDW Plt Count Seg Neuts % (Manual) Lymphocytes % (Manual) Monocytes % (Manual) Eosinophils % (Manual) Nucleated RBC % Seg Neutrophils # Man Lymphocytes # (Manual) POC ABG pH 7.241 L 7.244 L POC ABG pCO2 50.4 H 50.1 H POC ABG pO2 156 H Sodium Potassium Chloride Carbon Dioxide Creatinine Glucose POC Glucose 49 L Lactic Acid Calcium AST ALT Alkaline Phosphatase CK-MB (CK-2) CK-MB (CK-2) Rel Index Troponin T Total Protein Albumin Urine WBC (Auto) Vancomycin Trough 03/14/19 03/14/19 03/14/19 18:29 18:32 20:27 WBC RBC Hgb Hct MCV RDW Plt Count Seg Neuts % (Manual) Lymphocytes % (Manual) Monocytes % (Manual) Eosinophils % (Manual) Nucleated RBC % Seg Neutrophils # Man Lymphocytes # (Manual) POC ABG pH POC ABG pCO2 POC ABG pO2 Sodium Potassium Chloride 112.6 H Carbon Dioxide 19 L Creatinine 1.4 H Glucose 132 H POC Glucose 57 L 115 H Lactic Acid Calcium AST ALT Alkaline Phosphatase CK-MB (CK-2) CK-MB (CK-2) Rel Index Troponin T Total Protein Albumin Urine WBC (Auto) Vancomycin Trough 03/14/19 03/14/19 03/15/19 23:47 Unknown 04:00 WBC RBC 2.77 L Hgb 8.5 L Hct 27.3 L MCV 98 H RDW 23.0 H Plt Count 27 L Seg Neuts % (Manual) 75.0 H Lymphocytes % (Manual) 1.0 L Monocytes % (Manual) Eosinophils % (Manual) Nucleated RBC % 4.0 H Seg Neutrophils # Man Lymphocytes # (Manual) 0.1 L POC ABG pH POC ABG pCO2 POC ABG pO2 Sodium Potassium Chloride Carbon Dioxide Creatinine Glucose POC Glucose 116 H Lactic Acid 3.30 H* Calcium AST ALT Alkaline Phosphatase CK-MB (CK-2) CK-MB (CK-2) Rel Index Troponin T Total Protein Albumin Urine WBC (Auto) Vancomycin Trough 03/15/19 03/15/19 03/15/19 04:00 05:30 05:47 WBC RBC Hgb Hct MCV RDW Plt Count Seg Neuts % (Manual) Lymphocytes % (Manual) Monocytes % (Manual) Eosinophils % (Manual) Nucleated RBC % Seg Neutrophils # Man Lymphocytes # (Manual) POC ABG pH 7.303 L 7.243 L POC ABG pCO2 45.8 H 52.2 H POC ABG pO2 50 L Sodium Potassium Chloride 112.1 H Carbon Dioxide 19 L Creatinine 1.5 H Glucose 123 H POC Glucose Lactic Acid Calcium 8.2 L AST ALT Alkaline Phosphatase CK-MB (CK-2) CK-MB (CK-2) Rel Index Troponin T Total Protein Albumin Urine WBC (Auto) Vancomycin Trough 03/15/19 03/15/19 06:24 07:35 WBC RBC Hgb Hct MCV RDW Plt Count Seg Neuts % (Manual) Lymphocytes % (Manual) Monocytes % (Manual) Eosinophils % (Manual) Nucleated RBC % Seg Neutrophils # Man Lymphocytes # (Manual) POC ABG pH 7.282 L POC ABG pCO2 50.4 H POC ABG pO2 71 L Sodium Potassium Chloride Carbon Dioxide Creatinine Glucose POC Glucose 140 H Lactic Acid Calcium AST ALT Alkaline Phosphatase CK-MB (CK-2) CK-MB (CK-2) Rel Index Troponin T Total Protein Albumin Urine WBC (Auto) Vancomycin Trough
--- NOTE | 2019-03-15 11:43 | Progress Note ---
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, encephalopathy, renal disease Acute resp failure with hypoxia on mechanical ventilator less than 96 hours Management per manager cleaning -Chest x-ray shows worsening pulmonary edema Cannot rule out pneumonia, empiric antibiotics, obtain echo, diuretics KERRI is due to ATN and vasomotor nephropathy -monitor cr level VRE UTI, septic shock abx per ID , on two pressors thrombocytopenia likely 2/2 sepsis Acute Metabolic encephalopathy with agitation - Probably due to the acute infection - head CT scan neg x 2 Acute on chronic Pancytopenia - continue to monitor levels - Oncology consulted Hypernatremia - probably 2/2 dehydration - improved on IV D5W Hyperkalemia - s/p kayexalate, resolved Hypoglycemia -On hypoglycemic protocol H/o CLD -Continue lactulose and rifaximin Nutrition -tube feeding on hold due to worsening respiratory status, will resume tube feedings today -will repeat KUB for tube positioning DVT prophylaxis - On SCDs due to thrombocytopenia Disposition: condition is guarded Critical time spent: 35 mins History Interval history: Intubated and sedated, no vomiting, no fevers, no agitation, no seizures Hospitalist Physical - Physical exam Narrative exam: General.: No distress, intubated HEENT: Moist mucous membranes, extraocular muscles intact, no lymphadenopathy Neck: supple Cardiac: S1-S2 heard Lungs: clear to auscultation bilaterally Abdomen: soft , nontender, nondistended, bowel sounds positive Extremities: no edema clubbing or cyanosis Skin: no rash or lesions Neurologic: Intubated and sedated Psych: Intubated and sedated - Constitutional Vitals: Temp Pulse Resp BP Pulse Ox 99.2 F 94 H 10 L 108/55 100 03/15/19 07:41 03/15/19 10:45 03/15/19 10:45 03/15/19 10:45 03/15/19 10:45 General appearance: Present: no acute distress, other (mildly agitated) Results - Labs CBC & Chem 7: 03/15/19 04:00 03/15/19 04:00 Labs: Laboratory Last Values WBC 6.9 K/mm3 (4.5-11.0) 03/15/19 04:00 RBC 2.77 M/mm3 (3.65-5.03) L 03/15/19 04:00 Hgb 8.5 gm/dl (10.1-14.3) L 03/15/19 04:00 Hct 27.3 % (30.3-42.9) L 03/15/19 04:00 MCV 98 fl (79-97) H 03/15/19 04:00 MCH 31 pg (28-32) 03/15/19 04:00 MCHC 31 % (30-34) 03/15/19 04:00 RDW 23.0 % (13.2-15.2) H 03/15/19 04:00 Plt Count 27 K/mm3 (140-440) L 03/15/19 04:00 Lymph % (Auto) Business Liaison Manager 03/12/19 08:55 [place] % (Auto) Business Liaison Manager 03/12/19 08:55 Eos % (Auto) Business Liaison Manager 03/12/19 08:55 Baso % (Auto) Business Liaison Manager 03/12/19 08:55 Lymph # Business Liaison Manager 03/12/19 08:55 [place] # Business Liaison Manager 03/12/19 08:55 Eos # Business Liaison Manager 03/12/19 08:55 Baso # Business Liaison Manager 03/12/19 08:55 Add Manual Diff Complete 03/15/19 04:00 Total Counted 100 03/15/19 04:00 Seg Neutrophils % Business Liaison Manager 03/12/19 08:55 Seg Neuts % (Manual) 75.0 % (40.0-70.0) H 03/15/19 04:00 Band Neutrophils % 18.0 % 03/15/19 04:00 Lymphocytes % (Manual) 1.0 % (13.4-35.0) L 03/15/19 04:00 Reactive Lymphs % (Man) 0 % 03/15/19 04:00 Monocytes % (Manual) 4.0 % (0.0-7.3) 03/15/19 04:00 Eosinophils % (Manual) 1.0 % (0.0-4.3) 03/15/19 04:00 Basophils % (Manual) 0 % (0.0-1.8) 03/15/19 04:00 Metamyelocytes % 1.0 % 03/15/19 04:00 Myelocytes % 0 % 03/15/19 04:00 Promyelocytes % 0 % 03/15/19 04:00 Blast Cells % 0 % 03/15/19 04:00 Nucleated RBC % 4.0 % (0.0-0.9) H 03/15/19 04:00 Seg Neutrophils # Business Liaison Manager 03/12/19 08:55 Seg Neutrophils # Man 5.2 K/mm3 (1.8-7.7) 03/15/19 04:00 Band Neutrophils # 1.2 K/mm3 03/15/19 04:00 Lymphocytes # (Manual) 0.1 K/mm3 (1.2-5.4) L 03/15/19 04:00 Abs React Lymphs (Man) 0.0 K/mm3 03/15/19 04:00 Monocytes # (Manual) 0.3 K/mm3 (0.0-0.8) 03/15/19 04:00 Eosinophils # (Manual) 0.1 K/mm3 (0.0-0.4) 03/15/19 04:00 Basophils # (Manual) 0.0 K/mm3 (0.0-0.1) 03/15/19 04:00 Metamyelocytes # 0.1 K/mm3 03/15/19 04:00 Myelocytes # 0.0 K/mm3 03/15/19 04:00 Promyelocytes # 0.0 K/mm3 03/15/19 04:00 Blast Cells # 0.0 K/mm3 03/15/19 04:00 WBC Morphology Not Reportable 03/15/19 04:00 Hypersegmented Neuts Not Reportable 03/15/19 04:00 Hyposegmented Neuts Not Reportable 03/15/19 04:00 Hypogranular Neuts Not Reportable 03/15/19 04:00 Smudge Cells Not Reportable 03/15/19 04:00 Toxic Granulation Not Reportable 03/15/19 04:00 Toxic Vacuolation Not Reportable 03/15/19 04:00 Dohle Bodies Not Reportable 03/15/19 04:00 Pelger-Huet Anomaly Not Reportable 03/15/19 04:00 Sheila Rods Not Reportable 03/15/19 04:00 Platelet Estimate Consistent w auto 03/15/19 04:00 Clumped Platelets Not Reportable 03/15/19 04:00 Plt Clumps, EDTA Not Reportable 03/15/19 04:00 Large Platelets Not Reportable 03/15/19 04:00 Giant Platelets Not Reportable 03/15/19 04:00 Platelet Satelliting Not Reportable 03/15/19 04:00 Plt Morphology Comment Not Reportable 03/15/19 04:00 RBC Morphology Not Reportable 03/15/19 04:00 Dimorphic RBCs Not Reportable 03/15/19 04:00 Polychromasia Not Reportable 03/15/19 04:00 Hypochromasia Not Reportable 03/15/19 04:00 Poikilocytosis Not Reportable 03/15/19 04:00 Anisocytosis 1+ 03/15/19 04:00 Microcytosis Not Reportable 03/15/19 04:00 Macrocytosis Not Reportable 03/15/19 04:00 Spherocytes Not Reportable 03/15/19 04:00 Pappenheimer Bodies Not Reportable 03/15/19 04:00 Sickle Cells Not Reportable 03/15/19 04:00 Target Cells Not Reportable 03/15/19 04:00 Tear Drop Cells Not Reportable 03/15/19 04:00 Ovalocytes Not Reportable 03/15/19 04:00 Helmet Cells Not Reportable 03/15/19 04:00 Ann-[place] Bodies Not Reportable 03/15/19 04:00 [place] Rings Not Reportable 03/15/19 04:00 [place] Cells Not Reportable 03/15/19 04:00 Bite Cells Not Reportable 03/15/19 04:00 Crenated Cell Not Reportable 03/15/19 04:00 Elliptocytes Not Reportable 03/15/19 04:00 Acanthocytes (Spur) Not Reportable 03/15/19 04:00 Rouleaux Not Reportable 03/15/19 04:00 Hemoglobin C Crystals Not Reportable 03/15/19 04:00 Schistocytes Not Reportable 03/15/19 04:00 Malaria parasites Not Reportable 03/15/19 04:00 [place] Bodies Not Reportable 03/15/19 04:00 Hem Pathologist Commnt No 03/15/19 04:00 POC ABG pH 7.282 (7.35-7.45) L 03/15/19 07:35 POC ABG pCO2 50.4 (35-45) H 03/15/19 07:35 POC ABG pO2 71 (80-105) L 03/15/19 07:35 POC ABG HCO3 23.8 (22-26 mml/L) 03/15/19 07:35 POC ABG Total CO2 25 (23-27mmol/L) 03/15/19 07:35 POC ABG O2 Sat 92 03/15/19 07:35 POC ABG Base Excess -3 ((-2) - (+3)mmol/L) 03/15/19 07:35 FiO2 80 % 03/15/19 07:35 Sodium 141 mmol/L (137-145) 03/15/19 04:00 Potassium 4.8 mmol/L (3.6-5.0) 03/15/19 04:00 Chloride 112.1 mmol/L (98-107) H 03/15/19 04:00 Carbon Dioxide 19 mmol/L (22-30) L 03/15/19 04:00 Anion Gap 15 mmol/L 03/15/19 04:00 BUN 17 mg/dL (7-17) 03/15/19 04:00 Creatinine 1.5 mg/dL (0.7-1.2) H 03/15/19 04:00 Estimated GFR 42 ml/min 03/15/19 04:00 BUN/Creatinine Ratio 11 % 03/15/19 04:00 Glucose 123 mg/dL (65-100) H 03/15/19 04:00 POC Glucose 140 (70-105) H 03/15/19 06:24 Hemoglobin A1c 4.6 % (4-6) 03/10/19 13:16 Lactic Acid 3.30 mmol/L (0.7-2.0) H* 03/14/19 Unknown Calcium 8.2 mg/dL (8.4-10.2) L 03/15/19 04:00 Total Bilirubin 0.50 mg/dL (0.1-1.2) 03/14/19 06:44 AST 144 units/L (5-40) H 03/14/19 06:44 ALT 90 units/L (7-56) H 03/14/19 06:44 Alkaline Phosphatase 226 units/L (35-129) H 03/14/19 06:44 Ammonia 54.0 umol/L (25-60) 03/11/19 07:29 Total Creatine Kinase 120 units/L (30-135) 03/14/19 06:44 CK-MB (CK-2) 8.6 ng/mL (0.0-4.0) H 03/14/19 06:44 CK-MB (CK-2) Rel Index 7.1 (0-4) H 03/14/19 06:44 Troponin T 0.056 ng/mL (0.00-0.029) H D 03/14/19 06:44 Total Protein 6.7 g/dL (6.3-8.2) 03/14/19 06:44 Albumin 2.2 g/dL (3.9-5) L 03/14/19 06:44 Albumin/Globulin Ratio 0.5 % 03/14/19 06:44 Triglycerides 62 mg/dL (2-149) 03/14/19 06:44 Cholesterol 133 mg/dL (50-199) 03/14/19 06:44 LDL Cholesterol Direct 89 mg/dL (50-130) 03/14/19 06:44 HDL Cholesterol 43 mg/dL (40-59) 03/14/19 06:44 Cholesterol/HDL Ratio 3.09 % 03/14/19 06:44 Urine Color Straw (Yellow) 03/10/19 14:38 Urine Turbidity Clear (Clear) 03/10/19 14:38 Urine pH 7.0 (5.0-7.0) 03/10/19 14:38 Ur Specific [place] 1.009 (1.003-1.030) 03/10/19 14:38 Urine Protein <15 mg/dl mg/dL (Negative) 03/10/19 14:38 Urine Glucose (UA) Neg mg/dL (Negative) 03/10/19 14:38 Urine Ketones Neg mg/dL (Negative) 03/10/19 14:38 Urine Blood Neg (Negative) 03/10/19 14:38 Urine Nitrite Neg (Negative) 03/10/19 14:38 Urine Bilirubin Neg (Negative) 03/10/19 14:38 Urine Urobilinogen < 2.0 mg/dL (<2.0) 03/10/19 14:38 Ur Leukocyte Esterase Sm (Negative) 03/10/19 14:38 Urine WBC (Auto) 9.0 /HPF (0.0-6.0) H 03/10/19 14:38 Urine RBC (Auto) 2.0 /HPF (0.0-6.0) 03/10/19 14:38 U Epithel Cells (Auto) 1.0 /HPF (0-13.0) 03/10/19 14:38 Urine Bacteria (Auto) 2+ /HPF (Negative) 03/10/19 14:38 Urine Mucus Few /HPF 03/10/19 14:38 Vancomycin Trough 39.7 ug/mL (5.0-20.0) H 03/13/19 05:58 Random Vancomycin 27.6 ug/mL (0-40.0) 03/14/19 05:44 Active Medications - Current Medications Current Medications: Generic Name Dose Route Start Last Admin Trade Name Freq PRN Reason Stop Dose Admin Acetaminophen 650 mg 03/10/19 17:46 Tylenol PO Q4H PRN Pain MILD(1-3)/Fever >100.5/GUERRERO Albuterol 2.5 mg 03/11/19 03:52 Proventil IH TID PRN Wheezing Albuterol/Ipratropium 1 ampul 03/11/19 08:00 03/15/19 08:05 Duoneb *Not For Prn Use* IH 1 ampul Q6HRT CONNIE Administration Lipase/Protease/Amylase 1 each 03/14/19 13:25 Pancremartine Sahni 10,500 Unit FEEDTUBE PRN PRN For Clogged Feeding Tube Chlordiazepoxide HCl 25 mg 03/11/19 10:00 03/15/19 09:04 Librium PO 25 mg DAILY CONNIE Administration Dextrose 50 ml 03/10/19 22:27 03/14/19 17:55 D50w (25gm) Syringe IV 50 ml Q30MIN PRN Administration Hypoglycemia Famotidine 20 mg 03/15/19 10:00 Pepcid PO DAILY CONNIE Fluticasone Propionate 50 mcg 03/11/19 10:00 03/15/19 09:07 Flonase NS 50 mcg QDAY CONNIE Administration Folic Acid 1 mg 03/11/19 10:00 03/15/19 09:03 Folvite PO 1 mg QDAY CONNIE Administration Haloperidol 0.5 mg 03/11/19 03:52 03/12/19 09:32 Haldol PO 0.5 mg Q6H PRN Administration Agitation Hydrophilic Ointment 1 applic 03/14/19 06:51 Vaseline Lip Therapy TP Q2HR PRN Dry Lips Propofol 1,000 mg in 100 mls @ 2.587 mls/hr 03/14/19 07:00 03/14/19 12:00 Diprivan 10 Mg/Ml IV 0 mcg/kg/min TITR CONNIE 0 mls/hr Titration Protocol 5 MCG/KG/MIN Piperacillin Sod/Tazobactam Sod 4.5 gm in 100 mls @ 200 mls/hr 03/14/19 08:00 03/15/19 06:22 Zosyn/Ns 4.5gm/100ml IV 200 mls/hr Q6HR CONNIE Administration Protocol Fentanyl Citrate 2,000 mcg in 100 mls @ 4.312 mls/hr 03/14/19 11:00 03/15/19 07:41 Fentanyl Drip Premix IV 1 mcg/kg/hr TITR CONNIE 4.312 mls/hr Titration Protocol 1 MCG/KG/HR Dextrose/Sodium Chloride 1,000 mls @ 125 mls/hr 03/14/19 14:50 03/15/19 09:04 D5ns IV 125 mls/hr DIRECT CONNIE Administration Vasopressin 20 unit/ Sodium 101 mls @ 9.09 mls/hr 03/14/19 14:00 03/15/19 11:19 Chloride IV 0.03 units/min TITR CONNIE 9.09 mls/hr Administration Protocol 0.03 UNITS/MIN Dopamine HCl/Dextrose 800 mg in 250 mls @ 3.234 mls/hr 03/14/19 22:00 03/15/19 11:20 Intropin Drip 800 Mg/D5w 250 Ml IV 3 mcg/kg/min TITR CONNIE 4.85 mls/hr Titration Protocol 2 MCG/KG/MIN Daptomycin 700 mg/ Sodium 100 mls @ 200 mls/hr 03/16/19 10:00 Chloride IV Q48HR [facility] Protocol Insulin Human Lispro 0 unit 03/11/19 00:00 03/15/19 06:22 Humalog SUB-Q Not Given Q6HR CONNIE Protocol Morphine Sulfate 2 mg 03/10/19 17:56 03/15/19 02:12 Morphine IV 2 mg Q4H PRN Administration Pain, Moderate (4-6) Multi-Ingred Cream/Lotion/Oil/Oint 1 applic 03/14/19 06:51 Artificial Tears Ophth Oint OU Q4HR PRN Dry Eye(s) Ondansetron HCl 4 mg 03/10/19 17:46 03/11/19 05:04 Zofran IV 4 mg Q8H PRN Administration Nausea And Vomiting Rifaximin 550 mg 03/11/19 10:00 03/15/19 09:06 Xifaxan PO 550 mg BID CONNIE Administration Simple Syrup 15 ml 03/14/19 13:25 Simple Syrup FEEDTUBE PRN PRN Hypoglycemia Simple Syrup 30 ml 03/14/19 13:25 Simple Syrup FEEDTUBE PRN PRN Hypoglycemia Sodium Bicarbonate 325 mg 03/14/19 13:25 Sodium Bicarbonate FEEDTUBE PRN PRN For Clogged Feeding Tube Sodium Chloride 10 ml 03/10/19 22:00 03/15/19 09:04 Sodium Chloride Flush Syringe 10 Ml IV 10 ml BID CONNIE Administration Sodium Chloride 10 ml 03/10/19 17:46 03/13/19 22:50 Sodium Chloride Flush Syringe 10 Ml IV 10 ml PRN PRN Administration LINE FLUSH Thiamine HCl 100 mg 03/11/19 10:00 03/15/19 09:04 Vitamin B-1 PO 100 mg QDAY CONNIE Administration Nutrition/Malnutrition Assess - Dietary Evaluation Nutrition/Malnutrition Findings: Nutrition Notes Start: 03/11/19 10:01 Freq: Status: Active Protocol: Document 03/15/19 10:07 AP (Rec: 03/15/19 10:37 AP [id number]) Co-Sign 03/15/19 10:07 LM Nutrition Notes Need for Assessment generated from: MD Order Initial or Follow up Reassessment Current Diagnosis COPD,Decubitus(Pressure Ulcer) ,Hypertension Other Pertinent Diagnosis AMS/nonverbal, Hep C, Anemia, Renal stones Current Diet Vital AF 1.2 at 55ml/hr Labs/Tests Reviewed Pertinent Medications Propofol at 2.587 ml/hr ( provides 68 kcal) Height 5 ft 3 in Weight 89.9 kg [place] Body Weight (kg) 52.27 BMI 35.1 Weight Status Obese Subjective/Other Information F/U for TF reinitiation. TF will resume per MD later today , dobhoff in place. Percent of energy/protein needs met: 0%/0% Minimum of two criteria No Reduced Financial Reporting Manager Strength Measurably Reduced (severe) #1 Nutrition Diagnosis Inadequate oral intake Diagnosis Progress(for reassessment Continues documentation) Is patient on ventilator? Yes Is Patient Ambulatory and/or Out of Bed No REE-([facility]-confined to bed) 1695.012 Calculation Used for Recommendations [facility] Additional Notes Protein: >105 g (>2g/kg IBW 52 .27 kg) Fluids: 1 ml/kcal or per MD Nutrition Intervention Change Diet Order: TF Nutrition Support: Vital AF 1.2 at 55ml/hr Flush 100ml q4h Kcal 1,584 Protein (gm) 99 Fluid (mL) 1,071 Goal #1 TF tolerance Goal #2 TF to meet at least 80% of estimated energy and protein needs. Anticipated Discharge Needs: unable to determine at this time Follow-Up By: 03/17/19 Additional Comments F/U for TF tolerance/rates.
[2019-03-15] MEDS: FAMOTIDINE 20 MG TAB PO SCH (11:50)
--- NOTE | 2019-03-15 12:49 | Progress Note ---
Assessment and Plan Cultures: 03/10 UCx - VRE faecim 03/10 BCx - NGTD 03/14 BCX - NGTD A/P: 68 yo F PMHx hepatitis C, Dm2, many other comorbidities admitted with altered mental status, possible secondary to VRE UTI 1. VRE UTI - given worsening thrombocytopenia would treat with daptomycin. Would also ensure steen catheter is changed prior to cessation of antibiotics. OK to stop vancomycin and pip-david. 2. Hepatitis C 3. DM2 - tight glycemic control for wound healing Recs: - start daptomycin 8mg/kg q24h - plan for 5 day course stop date 03/19 - ordered CK for AM for daptomycin monitoring. - change steen catheter when able. Thank you for the consult, we will continue to follow. Berta Stacy MD [facility] ([facility]) M: [phone] O: [phone] F: [phone] Subjective Date of service: 03/15/19 Principal diagnosis: low plt Interval history: remains intubated and sedated Objective - Exam Narrative Exam: Constitutional: intubated, sedated Head, Ears, Nose: Normocephalic, atraumatic. External ears, nose normal Eyes: Conjunctivae/corneas clear. No icterus. No ptosis. Neck: Supple, no meningeal signs Oral: dentition fair, no thrush Cardiovascular: S1, S2 normal. Respiratory: Good air entry, clear to auscultation bilaterally GI: Soft, non-tender; bowel sounds normal. No peritoneal signs. Musculoskeletal: No pedal edema, no cyanosis. Skin: No rash or abscess Hem/Lymphatic: No palpable cervical or supraclavicular nodes. No lymphangitis Psych: Sedated Neurological: Intubated, sedated - Constitutional Vitals: Vital Signs Temp Pulse Resp BP Pulse Ox 96.4 F L 92 H 17 88/47 100 03/15/19 11:45 03/15/19 12:14 03/15/19 11:30 03/15/19 12:14 03/15/19 12:14 Temperature -Last 24 Hours Temperature 96.4 F Temperature 99.2 F Temperature 97 F Temperature 97.3 F Temperature 96 F Temperature 98.0 F - Labs CBC & Chem 7: 03/15/19 04:00 03/15/19 04:00 Labs: Abnormal lab results 03/14/19 03/14/19 03/14/19 Range/Units 12:43 13:35 15:35 RBC (3.65-5.03) M/mm3 Hgb (10.1-14.3) gm/dl Hct (30.3-42.9) % MCV (79-97) fl RDW (13.2-15.2) % Plt Count (140-440) K/mm3 Seg Neuts % (Manual) (40.0-70.0) % Lymphocytes % (Manual) (13.4-35.0) % Nucleated RBC % (0.0-0.9) % Lymphocytes # (Manual) (1.2-5.4) K/mm3 POC ABG pH (7.35-7.45) POC ABG pCO2 (35-45) POC ABG pO2 (80-105) Chloride (98-107) mmol/L Carbon Dioxide (22-30) mmol/L Creatinine (0.7-1.2) mg/dL Glucose (65-100) mg/dL POC Glucose 68 L (70-105) Lactic Acid 2.10 H* 3.50 H* (0.7-2.0) mmol/L Calcium (8.4-10.2) mg/dL 03/14/19 03/14/19 03/14/19 Range/Units 17:34 17:46 17:55 RBC (3.65-5.03) M/mm3 Hgb (10.1-14.3) gm/dl Hct (30.3-42.9) % MCV (79-97) fl RDW (13.2-15.2) % Plt Count (140-440) K/mm3 Seg Neuts % (Manual) (40.0-70.0) % Lymphocytes % (Manual) (13.4-35.0) % Nucleated RBC % (0.0-0.9) % Lymphocytes # (Manual) (1.2-5.4) K/mm3 POC ABG pH 7.241 L 7.244 L (7.35-7.45) POC ABG pCO2 50.4 H 50.1 H (35-45) POC ABG pO2 156 H (80-105) Chloride (98-107) mmol/L Carbon Dioxide (22-30) mmol/L Creatinine (0.7-1.2) mg/dL Glucose (65-100) mg/dL POC Glucose 49 L (70-105) Lactic Acid (0.7-2.0) mmol/L Calcium (8.4-10.2) mg/dL 03/14/19 03/14/19 03/14/19 Range/Units 18:29 18:32 20:27 RBC (3.65-5.03) M/mm3 Hgb (10.1-14.3) gm/dl Hct (30.3-42.9) % MCV (79-97) fl RDW (13.2-15.2) % Plt Count (140-440) K/mm3 Seg Neuts % (Manual) (40.0-70.0) % Lymphocytes % (Manual) (13.4-35.0) % Nucleated RBC % (0.0-0.9) % Lymphocytes # (Manual) (1.2-5.4) K/mm3 POC ABG pH (7.35-7.45) POC ABG pCO2 (35-45) POC ABG pO2 (80-105) Chloride 112.6 H (98-107) mmol/L Carbon Dioxide 19 L (22-30) mmol/L Creatinine 1.4 H (0.7-1.2) mg/dL Glucose 132 H (65-100) mg/dL POC Glucose 57 L 115 H (70-105) Lactic Acid (0.7-2.0) mmol/L Calcium (8.4-10.2) mg/dL 03/14/19 03/14/19 03/15/19 Range/Units 23:47 Unknown 04:00 RBC 2.77 L (3.65-5.03) M/mm3 Hgb 8.5 L (10.1-14.3) gm/dl Hct 27.3 L (30.3-42.9) % MCV 98 H (79-97) fl RDW 23.0 H (13.2-15.2) % Plt Count 27 L (140-440) K/mm3 Seg Neuts % (Manual) 75.0 H (40.0-70.0) % Lymphocytes % (Manual) 1.0 L (13.4-35.0) % Nucleated RBC % 4.0 H (0.0-0.9) % Lymphocytes # (Manual) 0.1 L (1.2-5.4) K/mm3 POC ABG pH (7.35-7.45) POC ABG pCO2 (35-45) POC ABG pO2 (80-105) Chloride (98-107) mmol/L Carbon Dioxide (22-30) mmol/L Creatinine (0.7-1.2) mg/dL Glucose (65-100) mg/dL POC Glucose 116 H (70-105) Lactic Acid 3.30 H* (0.7-2.0) mmol/L Calcium (8.4-10.2) mg/dL 03/15/19 03/15/19 03/15/19 Range/Units 04:00 05:30 05:47 RBC (3.65-5.03) M/mm3 Hgb (10.1-14.3) gm/dl Hct (30.3-42.9) % MCV (79-97) fl RDW (13.2-15.2) % Plt Count (140-440) K/mm3 Seg Neuts % (Manual) (40.0-70.0) % Lymphocytes % (Manual) (13.4-35.0) % Nucleated RBC % (0.0-0.9) % Lymphocytes # (Manual) (1.2-5.4) K/mm3 POC ABG pH 7.303 L 7.243 L (7.35-7.45) POC ABG pCO2 45.8 H 52.2 H (35-45) POC ABG pO2 50 L (80-105) Chloride 112.1 H (98-107) mmol/L Carbon Dioxide 19 L (22-30) mmol/L Creatinine 1.5 H (0.7-1.2) mg/dL Glucose 123 H (65-100) mg/dL POC Glucose (70-105) Lactic Acid (0.7-2.0) mmol/L Calcium 8.2 L (8.4-10.2) mg/dL 03/15/19 03/15/19 03/15/19 Range/Units 06:24 07:35 11:47 RBC (3.65-5.03) M/mm3 Hgb (10.1-14.3) gm/dl Hct (30.3-42.9) % MCV (79-97) fl RDW (13.2-15.2) % Plt Count (140-440) K/mm3 Seg Neuts % (Manual) (40.0-70.0) % Lymphocytes % (Manual) (13.4-35.0) % Nucleated RBC % (0.0-0.9) % Lymphocytes # (Manual) (1.2-5.4) K/mm3 POC ABG pH 7.282 L (7.35-7.45) POC ABG pCO2 50.4 H (35-45) POC ABG pO2 71 L (80-105) Chloride (98-107) mmol/L Carbon Dioxide (22-30) mmol/L Creatinine (0.7-1.2) mg/dL Glucose (65-100) mg/dL POC Glucose 140 H 161 H (70-105) Lactic Acid (0.7-2.0) mmol/L Calcium (8.4-10.2) mg/dL
[2019-03-15] MEDS: FUROSEMIDE 40 MG/4 ML INJ IV SCH ×2 (13:28→23:32)
[2019-03-15] MEDS: fentaNYL DRIP Premix 2,000 MCG/100 ML BAG IV SCH (17:13)
[2019-03-16] MEDS: INSULIN LISPRO 100 UNIT/ML SUB-Q SCH ×3 (00:24→17:39)
[2019-03-16] MEDS: DOPamine/D5W 800 MG/250 ML 800 MG/250 ML BAG IV SCH (00:53)
[2019-03-16] MEDS: D5W/0.9% NACL 1,000 ML IV SCH ×3 (01:30→20:05)
[2019-03-16] MEDS: IPRATROPIUM/ALBUTEROL SULFATE 3 ML AMPUL.NEB IH SCH ×4 (02:11→20:05)
--- NOTE | 2019-03-16 03:50 | XRay Report ---
CHEST 1 VIEW [id number] INDICATION / CLINICAL INFORMATION: follow up respiratory failure. COMPARISON: 03/15/2019 FINDINGS: SUPPORT DEVICES: Stable HEART / MEDIASTINUM: Stable LUNGS / PLEURA: Congestive changes and pulmonary edema continue. No pneumothorax. ADDITIONAL FINDINGS: No significant additional findings. IMPRESSION: No significant changes Signer Name: Derrek Baker MD Signed: 03/16/2019 3:46 AM Workstation Name: [id number]
[2019-03-16 04:37] LABS: ABG Base Excess -6.6 mmol/L (-2.0-3.0); ABG HCO3 19.2 mmol/L (20.0-26.0); ABG Methemoglobin 0.6 % (0.0-1.5); ABG PCO2 39.6 mm Hg; ABG PH 7.304 pH Units (7.350-7.450); ABG PO2 174.4 mm Hg (80.0-90.0)
[2019-03-16 05:36] LABS: Hemoglobin 8.9 gm/dl (10.1-14.3); Mean Corpuscular HGB Conc 32 % (30-34); Mean Corpuscular Volume 96 fl (79-97); Red Blood Count 2.92 M/mm3 (3.65-5.03)
[2019-03-16] MEDS: PIPERACIL/TAZOBACTA 4.5/NS 100 4.5 GM/100 ML VIAL IV SCH ×3 (05:55→17:37)
[2019-03-16 05:56] LABS: Platelet Count 42 K/mm3 (140-440); Red Cell Distribution Width 22.8 % (13.2-15.2)
--- NOTE | 2019-03-16 07:59 | Hem/Onc Progress Note ---
Assessment and Plan 1. h/o Leukopenia and the patient has a history of liver disease and alcohol usage. These may have a role. Thrombocytopenia may have a similar reason. Deficiency investigations. In January, B12 was 1400, folate 13. 2. Encephalopathy, being treated for sepsis. 3. History of electrolyte imbalance. 4. History of hypertension. 5. History of chronic obstructive pulmonary disease. 6. AST, ALT abnormality. 7. The patient was placed on reverse isolation. I will follow the patient during inpatient stay. wbc better - but pt on vent b12 - folate normal - will follow plt low - may be sec to meds/antibiotics - Patient Problems (1) Leukopenia Current Visit: Yes Status: Acute Qualifiers: Leukopenia type: unspecified Qualified Code(s): D72.819 - Decreased white blood cell count, unspecified Subjective Date of service: 03/16/19 Principal diagnosis: low plt Interval history: intubated Objective - Exam Narrative Exam: Pain - on vent General appearance - intubated Performance status - complete dependence Eyes - no icterus, ENT - no bleeding LNs cervical not palpable Neck - no LN Respiratory Normal Breath sounds - CTA anteriorly CVS S1 S2 + Extremities edema+ General GI Soft Rectal deferred female - deferred Skin warm Musculoskeletal on vent Neurologically intubated - Constitutional Vitals: Last Vital Signs Temp 96.6 F L 03/16/19 04:00 Pulse 97 H 03/16/19 07:00 Resp 24 03/16/19 07:00 BP 118/79 03/16/19 07:00 Pulse Ox 97 03/16/19 07:00 - Labs Lab Results: Laboratory Results - last 24 hr 03/15/19 03/15/19 03/15/19 04:00 11:47 13:15 WBC RBC Hgb Hct MCV MCH MCHC RDW Plt Count Add Manual Diff Complete Total Counted 100 Seg Neuts % (Manual) 75.0 H Band Neutrophils % 18.0 Lymphocytes % (Manual) 1.0 L Reactive Lymphs % (Man) 0 Monocytes % (Manual) 4.0 Eosinophils % (Manual) 1.0 Basophils % (Manual) 0 Metamyelocytes % 1.0 Myelocytes % 0 Promyelocytes % 0 Blast Cells % 0 Nucleated RBC % 4.0 H Seg Neutrophils # Man 5.2 Band Neutrophils # 1.2 Lymphocytes # (Manual) 0.1 L Abs React Lymphs (Man) 0.0 Monocytes # (Manual) 0.3 Eosinophils # (Manual) 0.1 Basophils # (Manual) 0.0 Metamyelocytes # 0.1 Myelocytes # 0.0 Promyelocytes # 0.0 Blast Cells # 0.0 WBC Morphology Not Reportable Hypersegmented Neuts Not Reportable Hyposegmented Neuts Not Reportable Hypogranular Neuts Not Reportable Smudge Cells Not Reportable Toxic Granulation Not Reportable Toxic Vacuolation Not Reportable Dohle Bodies Not Reportable Pelger-Huet Anomaly Not Reportable Sheila Rods Not Reportable Platelet Estimate Consistent w auto Clumped Platelets Not Reportable Plt Clumps, EDTA Not Reportable Large Platelets Not Reportable Giant Platelets Not Reportable Platelet Satelliting Not Reportable Plt Morphology Comment Not Reportable RBC Morphology Not Reportable Dimorphic RBCs Not Reportable Polychromasia Not Reportable Hypochromasia Not Reportable Poikilocytosis Not Reportable Anisocytosis 1+ Microcytosis Not Reportable Macrocytosis Not Reportable Spherocytes Not Reportable Pappenheimer Bodies Not Reportable Sickle Cells Not Reportable Target Cells Not Reportable Tear Drop Cells Not Reportable Ovalocytes Not Reportable Helmet Cells Not Reportable [place] Bodies Not Reportable [place] Rings Not Reportable [place] Cells Not Reportable Bite Cells Not Reportable Crenated Cell Not Reportable Elliptocytes Not Reportable Acanthocytes (Spur) Not Reportable Rouleaux Not Reportable Hemoglobin C Crystals Not Reportable Schistocytes Not Reportable Malaria parasites Not Reportable [place] Bodies Not Reportable Hem Pathologist Commnt No ABG pH ABG pCO2 ABG pO2 ABG HCO3 ABG O2 Saturation ABG O2 Content ABG Base Excess ABG Hemoglobin ABG Carboxyhemoglobin ABG Methemoglobin Oxyhemoglobin FiO2 Sodium Potassium Chloride Carbon Dioxide Anion Gap BUN Creatinine Estimated GFR BUN/Creatinine Ratio Glucose POC Glucose 161 H Lactic Acid 1.50 Calcium Total Creatine Kinase 03/15/19 03/15/19 03/16/19 18:22 23:25 04:33 WBC RBC Hgb Hct MCV MCH MCHC RDW Plt Count Add Manual Diff Total Counted Seg Neuts % (Manual) Band Neutrophils % Lymphocytes % (Manual) Reactive Lymphs % (Man) Monocytes % (Manual) Eosinophils % (Manual) Basophils % (Manual) Metamyelocytes % Myelocytes % Promyelocytes % Blast Cells % Nucleated RBC % Seg Neutrophils # Man Band Neutrophils # Lymphocytes # (Manual) Abs React Lymphs (Man) Monocytes # (Manual) Eosinophils # (Manual) Basophils # (Manual) Metamyelocytes # Myelocytes # Promyelocytes # Blast Cells # WBC Morphology Hypersegmented Neuts Hyposegmented Neuts Hypogranular Neuts Smudge Cells Toxic Granulation Toxic Vacuolation Dohle Bodies Pelger-Huet Anomaly Sheila Rods Platelet Estimate Clumped Platelets Plt Clumps, EDTA Large Platelets Giant Platelets Platelet Satelliting Plt Morphology Comment RBC Morphology Dimorphic RBCs Polychromasia Hypochromasia Poikilocytosis Anisocytosis Microcytosis Macrocytosis Spherocytes Pappenheimer Bodies Sickle Cells Target Cells Tear Drop Cells Ovalocytes Helmet Cells [place] Bodies [place] Rings [place] Cells Bite Cells Crenated Cell Elliptocytes Acanthocytes (Spur) Rouleaux Hemoglobin C Crystals Schistocytes Malaria parasites [place] Bodies Hem Pathologist Commnt ABG pH 7.304 L ABG pCO2 39.6 ABG pO2 174.4 H ABG HCO3 19.2 L ABG O2 Saturation 99.0 ABG O2 Content 12.0 ABG Base Excess -6.6 L ABG Hemoglobin 8.5 L ABG Carboxyhemoglobin 1.9 ABG Methemoglobin 0.6 Oxyhemoglobin 96.6 FiO2 65 Sodium Potassium Chloride Carbon Dioxide Anion Gap BUN Creatinine Estimated GFR BUN/Creatinine Ratio Glucose POC Glucose 103 139 H Lactic Acid Calcium Total Creatine Kinase 03/16/19 03/16/19 03/16/19 05:19 05:19 05:19 WBC 9.3 RBC 2.92 L Hgb 8.9 L Hct 28.0 L MCV 96 MCH 30 MCHC 32 RDW 22.8 H Plt Count 42 L Add Manual Diff Total Counted Seg Neuts % (Manual) Band Neutrophils % Lymphocytes % (Manual) Reactive Lymphs % (Man) Monocytes % (Manual) Eosinophils % (Manual) Basophils % (Manual) Metamyelocytes % Myelocytes % Promyelocytes % Blast Cells % Nucleated RBC % Seg Neutrophils # Man Band Neutrophils # Lymphocytes # (Manual) Abs React Lymphs (Man) Monocytes # (Manual) Eosinophils # (Manual) Basophils # (Manual) Metamyelocytes # Myelocytes # Promyelocytes # Blast Cells # WBC Morphology Hypersegmented Neuts Hyposegmented Neuts Hypogranular Neuts Smudge Cells Toxic Granulation Toxic Vacuolation Dohle Bodies Pelger-Huet Anomaly Sheila Rods Platelet Estimate Clumped Platelets Plt Clumps, EDTA Large Platelets Giant Platelets Platelet Satelliting Plt Morphology Comment RBC Morphology Dimorphic RBCs Polychromasia Hypochromasia Poikilocytosis Anisocytosis Microcytosis Macrocytosis Spherocytes Pappenheimer Bodies Sickle Cells Target Cells Tear Drop Cells Ovalocytes Helmet Cells [place] Bodies [place] Rings [place] Cells Bite Cells Crenated Cell Elliptocytes Acanthocytes (Spur) Rouleaux Hemoglobin C Crystals Schistocytes Malaria parasites [place] Bodies Hem Pathologist Commnt ABG pH ABG pCO2 ABG pO2 ABG HCO3 ABG O2 Saturation ABG O2 Content ABG Base Excess ABG Hemoglobin ABG Carboxyhemoglobin ABG Methemoglobin Oxyhemoglobin FiO2 Sodium 142 Potassium 5.2 H Chloride 114.0 H Carbon Dioxide 18 L Anion Gap 15 BUN 22 H Creatinine 1.7 H Estimated GFR 36 BUN/Creatinine Ratio 13 Glucose 109 H POC Glucose Lactic Acid Calcium 8.0 L Total Creatine Kinase 194 H 03/16/19 05:51 WBC RBC Hgb Hct MCV MCH MCHC RDW Plt Count Add Manual Diff Total Counted Seg Neuts % (Manual) Band Neutrophils % Lymphocytes % (Manual) Reactive Lymphs % (Man) Monocytes % (Manual) Eosinophils % (Manual) Basophils % (Manual) Metamyelocytes % Myelocytes % Promyelocytes % Blast Cells % Nucleated RBC % Seg Neutrophils # Man Band Neutrophils # Lymphocytes # (Manual) Abs React Lymphs (Man) Monocytes # (Manual) Eosinophils # (Manual) Basophils # (Manual) Metamyelocytes # Myelocytes # Promyelocytes # Blast Cells # WBC Morphology Hypersegmented Neuts Hyposegmented Neuts Hypogranular Neuts Smudge Cells Toxic Granulation Toxic Vacuolation Dohle Bodies Pelger-Huet Anomaly Sheila Rods Platelet Estimate Clumped Platelets Plt Clumps, EDTA Large Platelets Giant Platelets Platelet Satelliting Plt Morphology Comment RBC Morphology Dimorphic RBCs Polychromasia Hypochromasia Poikilocytosis Anisocytosis Microcytosis Macrocytosis Spherocytes Pappenheimer Bodies Sickle Cells Target Cells Tear Drop Cells Ovalocytes Helmet Cells [place] Bodies [place] Rings [place] Cells Bite Cells Crenated Cell Elliptocytes Acanthocytes (Spur) Rouleaux Hemoglobin C Crystals Schistocytes Malaria parasites [place] Bodies Hem Pathologist Commnt ABG pH ABG pCO2 ABG pO2 ABG HCO3 ABG O2 Saturation ABG O2 Content ABG Base Excess ABG Hemoglobin ABG Carboxyhemoglobin ABG Methemoglobin Oxyhemoglobin FiO2 Sodium Potassium Chloride Carbon Dioxide Anion Gap BUN Creatinine Estimated GFR BUN/Creatinine Ratio Glucose POC Glucose 123 H Lactic Acid Calcium Total Creatine Kinase Medications & Allergies - Medications Allergies/Adverse Reactions: Allergies No Known Allergies Allergy (Verified 01/06/17 23:38) Per son Home Medications: Home Medications Medication Instructions Recorded Confirmed Last Taken Type Folic Acid [Folvite] 1 mg PO QDAY #30 tablet 08/12/18 03/10/19 03/09/19 Rx Haloperidol [Haldol] 0.5 mg PO Q6H PRN #30 tablet 08/12/18 03/10/19 03/10/19 Rx Lactulose [Cephulac] 20 gm PO Q12H #1 bottle 08/12/18 03/10/19 03/09/19 Rx Rifaximin [Xifaxan] 550 mg PO BID #60 tablet 08/12/18 03/10/19 03/09/19 Rx Thiamine [Vitamin B-1] 100 mg PO QDAY #30 tablet 08/12/18 03/10/19 03/09/19 Rx amLODIPine 5 mg PO QDAY #30 tablet 08/12/18 03/10/19 03/09/19 Rx chlordiazePOXIDE [Librium] 25 mg PO DAILY #3 capsule 08/12/18 03/10/19 03/09/19 Rx ALBUTEROL NEB's [Proventil] 2.5 mg IH TID PRN 02/06/19 03/10/19 03/09/19 History Acetaminophen [Tylenol] 650 mg PO Q6HR PRN 02/06/19 03/10/19 03/09/19 History Fluticasone [Flonase] 1 spray NS QDAY 02/06/19 03/10/19 03/09/19 History Ipratropium/Albuterol Sulfate 1 spray IH QID 02/06/19 03/10/19 03/09/19 History [Combivent Respimat] Melatonin [Melatonin 10MG CAP] 10 mg PO QHS 02/06/19 03/10/19 03/09/19 History Active Medications: Generic Name Dose Route Start Last Admin Trade Name Freq PRN Reason Stop Dose Admin Acetaminophen 650 mg 03/10/19 17:46 Tylenol PO Q4H PRN Pain MILD(1-3)/Fever >100.5/GUERRERO Albuterol 2.5 mg 03/11/19 03:52 Proventil IH TID PRN Wheezing Albuterol/Ipratropium 1 ampul 03/11/19 08:00 03/16/19 02:11 Duoneb *Not For Prn Use* IH 1 ampul Q6HRT CONNIE Administration Lipase/Protease/Amylase 1 each 03/14/19 13:25 Pancremartine Sahni 10,500 Unit FEEDTUBE PRN PRN For Clogged Feeding Tube Chlordiazepoxide HCl 25 mg 03/11/19 10:00 03/15/19 09:04 Librium PO 25 mg DAILY CONNIE Administration Dextrose 50 ml 03/10/19 22:27 03/14/19 17:55 D50w (25gm) Syringe IV 50 ml Q30MIN PRN Administration Hypoglycemia Famotidine 20 mg 03/15/19 10:00 03/15/19 11:50 Pepcid PO 20 mg DAILY CONNIE Administration Fluticasone Propionate 50 mcg 03/11/19 10:00 03/15/19 09:07 Flonase NS 50 mcg QDAY CONNIE Administration Folic Acid 1 mg 03/11/19 10:00 03/15/19 09:03 Folvite PO 1 mg QDAY CONNIE Administration Furosemide 40 mg 03/15/19 12:00 03/15/19 23:32 Lasix IV 40 mg Q12H CONNIE Administration Haloperidol 0.5 mg 03/11/19 03:52 03/12/19 09:32 Haldol PO 0.5 mg Q6H PRN Administration Agitation Hydrophilic Ointment 1 applic 03/14/19 06:51 Vaseline Lip Therapy TP Q2HR PRN Dry Lips Propofol 1,000 mg in 100 mls @ 2.587 mls/hr 03/14/19 07:00 03/14/19 12:00 Diprivan 10 Mg/Ml IV 0 mcg/kg/min TITR CONNIE 0 mls/hr Titration Protocol 5 MCG/KG/MIN Piperacillin Sod/Tazobactam Sod 4.5 gm in 100 mls @ 200 mls/hr 03/14/19 08:00 03/16/19 05:55 Zosyn/Ns 4.5gm/100ml IV 200 mls/hr Q6HR [facility] Administration Protocol Fentanyl Citrate 2,000 mcg in 100 mls @ 4.312 mls/hr 03/14/19 11:00 03/16/19 01:24 Fentanyl Drip Premix IV 1 mcg/kg/hr TITR CONNIE 4.312 mls/hr Titration Protocol 1 MCG/KG/HR Dextrose/Sodium Chloride 1,000 mls @ 125 mls/hr 03/14/19 14:50 03/16/19 01:30 D5ns IV 125 mls/hr DIRECT CONNIE Administration Vasopressin 20 unit/ Sodium 101 mls @ 9.09 mls/hr 03/14/19 14:00 03/15/19 22:46 Chloride IV 0.03 units/min TITR CONNIE 9.09 mls/hr Administration Protocol 0.03 UNITS/MIN Dopamine HCl/Dextrose 800 mg in 250 mls @ 3.234 mls/hr 03/14/19 22:00 03/16/19 00:53 Intropin Drip 800 Mg/D5w 250 Ml IV 7 mcg/kg/min TITR CONNIE 11.318 mls/hr Administration Protocol 2 MCG/KG/MIN Daptomycin 700 mg/ Sodium 100 mls @ 200 mls/hr 03/16/19 10:00 Chloride IV Q48HR [facility] Protocol Insulin Human Lispro 0 unit 03/11/19 00:00 03/16/19 00:24 Humalog SUB-Q Not Given Q6HR [facility] Protocol Morphine Sulfate 2 mg 03/10/19 17:56 03/15/19 02:12 Morphine IV 2 mg Q4H PRN Administration Pain, Moderate (4-6) Multi-Ingred Cream/Lotion/Oil/Oint 1 applic 03/14/19 06:51 Artificial Tears Ophth Oint OU Q4HR PRN Dry Eye(s) Ondansetron HCl 4 mg 03/10/19 17:46 03/11/19 05:04 Zofran IV 4 mg Q8H PRN Administration Nausea And Vomiting Rifaximin 550 mg 03/11/19 10:00 03/15/19 21:24 Xifaxan PO 550 mg BID CONNIE Administration Simple Syrup 15 ml 03/14/19 13:25 Simple Syrup FEEDTUBE PRN PRN Hypoglycemia Simple Syrup 30 ml 03/14/19 13:25 Simple Syrup FEEDTUBE PRN PRN Hypoglycemia Sodium Bicarbonate 325 mg 03/14/19 13:25 Sodium Bicarbonate FEEDTUBE PRN PRN For Clogged Feeding Tube Sodium Chloride 10 ml 03/10/19 22:00 03/15/19 21:24 Sodium Chloride Flush Syringe 10 Ml IV 10 ml BID CONNIE Administration Sodium Chloride 10 ml 03/10/19 17:46 03/13/19 22:50 Sodium Chloride Flush Syringe 10 Ml IV 10 ml PRN PRN Administration LINE FLUSH Thiamine HCl 100 mg 03/11/19 10:00 03/15/19 09:04 Vitamin B-1 PO 100 mg QDAY CONINE Administration
--- NOTE | 2019-03-16 09:47 | Progress Note ---
Assessment and Plan Severe sepsis with septic shock Cardiac arrest-asystole with ROSC Acute hypoxic respiratory failure on MVS Lactic acidosis- multifactorial ( resolved) Acute toxic- metabolic encephalopathy Aspiration pneumonia VRE UTI Hypernatremia Thrombocytopenia h/o Cirrhosis h/o Alcohol abuse disorder KERRI Hyperkalemia -Patient is has decreasing oxygen requirement. Hold off on fluid restrictive strategies, until shock has resolved. With on going acidosis and negative base excess on ABG she still needs some intravascular volume. -Stop lasix -Place central venous access- discussed with son and a consent was obtained. -Updated the son at the bedside and answered all his questions -Discussed in ICU-IDT rounds - Continue to wean vasopressor support for MAP>65, currently on vasopressin, dop amine -Volume resuscitation per sepsis protocol -VAP bundle addressed -Aspiration precautions, HOB>40 degrees - Lung protective strategies -Wean FIO2 for O2 sats>90% , once FIO2 is down to 50%, wean PEEP -CXR, ABG in am -CBC, BMP in am -Avoid nephrotoxins and adjust all medications fro GFR and CrCL -Daily assessment fro weaning readiness -Start tube feedings -Agitation management, Pain management -Empiric antibiotics for aspiration PNA, antibiotics for VRE, de-escalate based on cultures and clinical status -Continue contact isolation - Continue VTE prophylaxis ( SCDs), trend platelet counts and monitor for bleeding -Stress ulcer prophylaxis - Accuchecks with glycemic control for SSI (While critically ill target blood glucose of 140-180 mg/dL; avoid hypoglycemia) - Continue mobility protocol for pressure ulcer prevention - Continue to monitor hemodynamics closely -Monitor electrolyte profile closely and replete as indicated -Chronic home medications, continue as clinically indicated - Continue to hold off on neuro-imaging for now - Continue Andersen catheter in this critically ill patient, with poor urine output, requiring accurate intake and output monitoring. CONDITION: CRITICAL PROGNOSIS: GUARDED CODE STATUS: FULL CODE The high probability of a clinically significant, sudden or life-threatening deterioration of the [respiratory, cardiovascular, neurology, hematology] system(s) required my full and direct attention, intervention and personal management. The aggregate critical care time was [35] minutes without overlap. Time includes spent on; [x] Data Review and interpretation [x] Patient assessment and monitoring of vital signs [x] Documentation [x] Medication orders and management Subjective Date of service: 03/16/19 Principal diagnosis: low plt Interval history: Follow up for severe sepsis with septic shock; acute hypoxemic respiratory failure on MVS; s/p cardiac arrest with ROSC; VRE UTI; aspiration pneumonia; Patient seen and examined. Vitals, labs, medications, chart and imaging reviewed. Events overnight were managed remotely. She remains on vasopressin and dopamine at [facility] [place], now making urine: no fevers, no vomiting; weaning supplemental oxygen ABG 7.3/40/174/19/-7 Remains critically ill on full ventilatory support Objective Vital Signs - 12hr 03/15/19 03/15/19 03/15/19 22:00 22:15 22:30 Temperature Pulse Rate 94 H 94 H 95 H Pulse Rate [ Anterior Bilateral Throughout] Pulse Rate [ From Monitor] Respiratory 16 12 12 Rate Respiratory Rate [Anterior Bilateral Throughout] Blood Pressure 92/52 106/62 112/71 O2 Sat by Pulse 100 100 100 Oximetry 03/15/19 03/15/19 03/15/19 22:45 23:00 23:15 Temperature Pulse Rate 93 H 93 H 91 H Pulse Rate [ Anterior Bilateral Throughout] Pulse Rate [ From Monitor] Respiratory 10 L 9 L 15 Rate Respiratory Rate [Anterior Bilateral Throughout] Blood Pressure 113/71 115/72 115/74 O2 Sat by Pulse 100 100 100 Oximetry 03/15/19 03/15/19 03/15/19 23:23 23:30 23:45 Temperature Pulse Rate 96 H 94 H 95 H Pulse Rate [ Anterior Bilateral Throughout] Pulse Rate [ From Monitor] Respiratory 14 11 L 24 Rate Respiratory Rate [Anterior Bilateral Throughout] Blood Pressure 115/74 118/70 113/68 O2 Sat by Pulse 100 100 98 Oximetry 03/16/19 03/16/19 03/16/19 00:00 00:15 00:30 Temperature 96.6 F L Pulse Rate 92 H 94 H 93 H Pulse Rate [ Anterior Bilateral Throughout] Pulse Rate [ 92 H From Monitor] Respiratory 24 16 10 L Rate Respiratory Rate [Anterior Bilateral Throughout] Blood Pressure 108/67 95/52 90/45 O2 Sat by Pulse 100 100 100 Oximetry 03/16/19 03/16/19 03/16/19 00:39 00:45 01:01 Temperature Pulse Rate 79 84 78 Pulse Rate [ Anterior Bilateral Throughout] Pulse Rate [ From Monitor] Respiratory 16 12 Rate Respiratory Rate [Anterior Bilateral Throughout] Blood Pressure 86/41 103/46 86/41 O2 Sat by Pulse 100 99 100 Oximetry 03/16/19 03/16/19 03/16/19 01:15 01:30 01:45 Temperature Pulse Rate 78 88 92 H Pulse Rate [ Anterior Bilateral Throughout] Pulse Rate [ From Monitor] Respiratory 17 24 24 Rate Respiratory Rate [Anterior Bilateral Throughout] Blood Pressure 92/51 101/62 108/67 O2 Sat by Pulse 100 100 100 Oximetry 03/16/19 03/16/19 03/16/19 02:00 02:11 02:15 Temperature Pulse Rate 91 H 94 H Pulse Rate [ 89 Anterior Bilateral Throughout] Pulse Rate [ From Monitor] Respiratory 20 24 Rate Respiratory 24 Rate [Anterior Bilateral Throughout] Blood Pressure 115/71 115/67 O2 Sat by Pulse 100 100 Oximetry 03/16/19 03/16/19 03/16/19 02:30 02:45 03:00 Temperature Pulse Rate 93 H 86 86 Pulse Rate [ Anterior Bilateral Throughout] Pulse Rate [ From Monitor] Respiratory 15 24 25 H Rate Respiratory Rate [Anterior Bilateral Throughout] Blood Pressure 94/57 88/51 96/57 O2 Sat by Pulse 100 100 100 Oximetry 03/16/19 03/16/19 03/16/19 03:15 03:30 03:45 Temperature Pulse Rate 88 86 91 H Pulse Rate [ Anterior Bilateral Throughout] Pulse Rate [ From Monitor] Respiratory 26 H 23 22 Rate Respiratory Rate [Anterior Bilateral Throughout] Blood Pressure 106/62 104/65 109/68 O2 Sat by Pulse 100 100 100 Oximetry 03/16/19 03/16/19 03/16/19 04:00 04:15 04:31 Temperature 96.6 F L Pulse Rate 92 H 90 92 H Pulse Rate [ Anterior Bilateral Throughout] Pulse Rate [ 99 H From Monitor] Respiratory 25 H 23 24 Rate Respiratory Rate [Anterior Bilateral Throughout] Blood Pressure 121/75 121/75 112/83 O2 Sat by Pulse 100 100 100 Oximetry 03/16/19 03/16/19 03/16/19 04:45 05:00 05:15 Temperature Pulse Rate 95 H 96 H 98 H Pulse Rate [ Anterior Bilateral Throughout] Pulse Rate [ From Monitor] Respiratory 23 25 H 23 Rate Respiratory Rate [Anterior Bilateral Throughout] Blood Pressure 113/80 110/77 117/78 O2 Sat by Pulse 99 100 100 Oximetry 03/16/19 03/16/19 03/16/19 05:19 05:30 05:45 Temperature Pulse Rate 102 H 100 H 101 H Pulse Rate [ Anterior Bilateral Throughout] Pulse Rate [ From Monitor] Respiratory 24 23 Rate Respiratory Rate [Anterior Bilateral Throughout] Blood Pressure 117/78 113/75 112/75 O2 Sat by Pulse 91 98 100 Oximetry 03/16/19 03/16/19 03/16/19 06:00 06:15 06:30 Temperature Pulse Rate 97 H 98 H 95 H Pulse Rate [ Anterior Bilateral Throughout] Pulse Rate [ From Monitor] Respiratory 24 24 24 Rate Respiratory Rate [Anterior Bilateral Throughout] Blood Pressure 120/84 112/73 114/75 O2 Sat by Pulse 100 100 100 Oximetry 03/16/19 03/16/19 03/16/19 06:45 07:00 07:15 Temperature Pulse Rate 100 H 97 H 98 H Pulse Rate [ Anterior Bilateral Throughout] Pulse Rate [ From Monitor] Respiratory 23 24 25 H Rate Respiratory Rate [Anterior Bilateral Throughout] Blood Pressure 117/80 118/79 122/77 O2 Sat by Pulse 98 97 100 Oximetry 03/16/19 03/16/19 03/16/19 07:30 07:45 08:00 Temperature 97.4 F L Pulse Rate 101 H 107 H 97 H Pulse Rate [ Anterior Bilateral Throughout] Pulse Rate [ From Monitor] Respiratory 24 26 H 24 Rate Respiratory Rate [Anterior Bilateral Throughout] Blood Pressure 118/76 93/46 107/69 O2 Sat by Pulse 98 98 100 Oximetry 03/16/19 03/16/19 03/16/19 08:15 08:30 08:45 Temperature Pulse Rate 92 H 95 H 104 H Pulse Rate [ Anterior Bilateral Throughout] Pulse Rate [ From Monitor] Respiratory 24 25 H 18 Rate Respiratory Rate [Anterior Bilateral Throughout] Blood Pressure 127/78 132/81 107/74 O2 Sat by Pulse 100 100 99 Oximetry 03/16/19 03/16/19 03/16/19 09:00 09:04 09:06 Temperature Pulse Rate 96 H 95 H Pulse Rate [ 101 H Anterior Bilateral Throughout] Pulse Rate [ From Monitor] Respiratory 23 Rate Respiratory 24 Rate [Anterior Bilateral Throughout] Blood Pressure 107/74 115/74 O2 Sat by Pulse 98 100 Oximetry Constitutional: other (mild respiratory distress, ) Eyes: non-icteric ENT: oropharynx dry, other (ETT at 23cm at the lip, small bowel feeding tube in nares) Neck: supple, no lymphadenopathy, no JVD Effort: mildly labored Ascultation: Bilateral: diminished breath sounds, rhonchi Cardiovascular: regular rate and rhythm, other (S1, S2, no murmurs, gallops or rubs rhythm strip shows accelerated junctional ) Gastrointestinal: normoactive bowel sounds, soft, non-tender, other (non distended, Andersen minimal urine output) Integumentary: normal Extremities: no cyanosis, no edema, pink and warm, pulses normal, no ischemia or petechiae Neurologic: unable to assess Psychiatric: other (unable to assess) CBC and BMP: 03/16/19 05:19 03/16/19 05:19 ABG, PT/INR, D-dimer: ABG POC ABG pH 7.282 (7.35-7.45) L 03/15/19 07:35 ABG pH 7.304 pH Units (7.350-7.450) L 03/16/19 04:33 POC ABG pCO2 50.4 (35-45) H 03/15/19 07:35 ABG pCO2 39.6 mm Hg 03/16/19 04:33 POC ABG pO2 71 (80-105) L 03/15/19 07:35 ABG pO2 174.4 mm Hg (80.0-90.0) H 03/16/19 04:33 POC ABG HCO3 23.8 (22-26 mml/L) 03/15/19 07:35 POC ABG Total CO2 25 (23-27mmol/L) 03/15/19 07:35 POC ABG O2 Sat 92 03/15/19 07:35 ABG O2 Saturation 99.0 % (95.0-99.0) 03/16/19 04:33 Abnormal lab findings: Abnormal Labs 03/10/19 03/10/19 03/10/19 13:16 13:16 14:38 WBC 0.8 L* RBC 3.35 L Hgb Hct MCV RDW 22.1 H Plt Count 78 L Seg Neuts % (Manual) Lymphocytes % (Manual) 49.0 H Monocytes % (Manual) Eosinophils % (Manual) Nucleated RBC % Seg Neutrophils # Man 0.3 L Lymphocytes # (Manual) 0.4 L POC ABG pH ABG pH POC ABG pCO2 POC ABG pO2 ABG pO2 ABG HCO3 ABG Base Excess ABG Hemoglobin Sodium 147 H Potassium 5.4 H Chloride 111.8 H Carbon Dioxide BUN Creatinine 0.6 L Glucose POC Glucose Lactic Acid Calcium AST 128 H ALT 79 H Alkaline Phosphatase 174 H Total Creatine Kinase CK-MB (CK-2) CK-MB (CK-2) Rel Index Troponin T Total Protein Albumin 2.4 L Urine WBC (Auto) 9.0 H Vancomycin Trough 03/10/19 03/10/19 03/11/19 21:22 23:36 07:29 WBC RBC Hgb Hct MCV RDW Plt Count Seg Neuts % (Manual) Lymphocytes % (Manual) Monocytes % (Manual) Eosinophils % (Manual) Nucleated RBC % Seg Neutrophils # Man Lymphocytes # (Manual) POC ABG pH ABG pH POC ABG pCO2 POC ABG pO2 ABG pO2 ABG HCO3 ABG Base Excess ABG Hemoglobin Sodium 148 H Potassium 5.6 H Chloride 122.3 H Carbon Dioxide 20 L BUN Creatinine 0.6 L Glucose POC Glucose 65 L 112 H Lactic Acid Calcium AST 102 H ALT 65 H Alkaline Phosphatase 134 H Total Creatine Kinase CK-MB (CK-2) CK-MB (CK-2) Rel Index Troponin T Total Protein 6.1 L Albumin 1.8 L Urine WBC (Auto) Vancomycin Trough 03/11/19 03/11/19 03/11/19 11:25 15:28 18:00 WBC 1.2 L* RBC Hgb Hct MCV RDW 22.1 H Plt Count 53 L Seg Neuts % (Manual) 78.6 H Lymphocytes % (Manual) 9.5 L Monocytes % (Manual) 9.5 H Eosinophils % (Manual) Nucleated RBC % Seg Neutrophils # Man 0.9 L Lymphocytes # (Manual) 0.1 L POC ABG pH ABG pH POC ABG pCO2 POC ABG pO2 ABG pO2 ABG HCO3 ABG Base Excess ABG Hemoglobin Sodium Potassium Chloride Carbon Dioxide BUN Creatinine Glucose POC Glucose 117 H 118 H Lactic Acid Calcium AST ALT Alkaline Phosphatase Total Creatine Kinase CK-MB (CK-2) CK-MB (CK-2) Rel Index Troponin T Total Protein Albumin Urine WBC (Auto) Vancomycin Trough 03/12/19 03/12/19 03/12/19 00:19 05:45 08:55 WBC 2.4 L RBC 3.33 L Hgb Hct MCV RDW 22.8 H Plt Count 58 L Seg Neuts % (Manual) 93.0 H Lymphocytes % (Manual) 4.0 L Monocytes % (Manual) Eosinophils % (Manual) Nucleated RBC % 7.0 H Seg Neutrophils # Man Lymphocytes # (Manual) 0.1 L POC ABG pH ABG pH POC ABG pCO2 POC ABG pO2 ABG pO2 ABG HCO3 ABG Base Excess ABG Hemoglobin Sodium Potassium Chloride Carbon Dioxide BUN Creatinine Glucose POC Glucose 124 H 116 H Lactic Acid Calcium AST ALT Alkaline Phosphatase Total Creatine Kinase CK-MB (CK-2) CK-MB (CK-2) Rel Index Troponin T Total Protein Albumin Urine WBC (Auto) Vancomycin Trough 03/12/19 03/13/19 03/13/19 08:55 00:18 03:48 WBC 2.7 L RBC 3.06 L Hgb 9.4 L Hct 29.4 L MCV RDW 23.1 H Plt Count 62 L Seg Neuts % (Manual) 76.0 H Lymphocytes % (Manual) Monocytes % (Manual) Eosinophils % (Manual) Nucleated RBC % 11.0 H Seg Neutrophils # Man Lymphocytes # (Manual) 0.5 L POC ABG pH ABG pH POC ABG pCO2 POC ABG pO2 ABG pO2 ABG HCO3 ABG Base Excess ABG Hemoglobin Sodium Potassium 5.6 H Chloride 114.2 H Carbon Dioxide 21 L BUN Creatinine Glucose POC Glucose 119 H Lactic Acid Calcium AST ALT Alkaline Phosphatase Total Creatine Kinase CK-MB (CK-2) CK-MB (CK-2) Rel Index Troponin T Total Protein Albumin Urine WBC (Auto) Vancomycin Trough 03/13/19 03/13/19 03/13/19 03:48 05:52 05:58 WBC RBC Hgb Hct MCV RDW Plt Count Seg Neuts % (Manual) Lymphocytes % (Manual) Monocytes % (Manual) Eosinophils % (Manual) Nucleated RBC % Seg Neutrophils # Man Lymphocytes # (Manual) POC ABG pH ABG pH POC ABG pCO2 POC ABG pO2 ABG pO2 ABG HCO3 ABG Base Excess ABG Hemoglobin Sodium Potassium Chloride 112.7 H Carbon Dioxide 21 L BUN Creatinine Glucose 103 H POC Glucose 114 H Lactic Acid Calcium AST ALT Alkaline Phosphatase Total Creatine Kinase CK-MB (CK-2) CK-MB (CK-2) Rel Index Troponin T Total Protein Albumin Urine WBC (Auto) Vancomycin Trough 39.7 H 03/13/19 03/13/19 03/14/19 12:12 18:00 00:17 WBC RBC Hgb Hct MCV RDW Plt Count Seg Neuts % (Manual) Lymphocytes % (Manual) Monocytes % (Manual) Eosinophils % (Manual) Nucleated RBC % Seg Neutrophils # Man Lymphocytes # (Manual) POC ABG pH ABG pH POC ABG pCO2 POC ABG pO2 ABG pO2 ABG HCO3 ABG Base Excess ABG Hemoglobin Sodium Potassium Chloride Carbon Dioxide BUN Creatinine Glucose POC Glucose 116 H 132 H 130 H Lactic Acid Calcium AST ALT Alkaline Phosphatase Total Creatine Kinase CK-MB (CK-2) CK-MB (CK-2) Rel Index Troponin T Total Protein Albumin Urine WBC (Auto) Vancomycin Trough 03/14/19 03/14/19 03/14/19 05:24 06:44 06:44 WBC 2.6 L RBC 3.00 L Hgb 9.2 L Hct 28.3 L MCV RDW 22.5 H Plt Count 44 L Seg Neuts % (Manual) 75.0 H Lymphocytes % (Manual) Monocytes % (Manual) Eosinophils % (Manual) 5.0 H Nucleated RBC % 19.0 H Seg Neutrophils # Man Lymphocytes # (Manual) 0.4 L POC ABG pH ABG pH POC ABG pCO2 POC ABG pO2 ABG pO2 ABG HCO3 ABG Base Excess ABG Hemoglobin Sodium Potassium Chloride 110.2 H Carbon Dioxide 21 L BUN Creatinine 1.3 H Glucose POC Glucose 110 H Lactic Acid Calcium AST 144 H ALT 90 H Alkaline Phosphatase 226 H Total Creatine Kinase CK-MB (CK-2) 8.6 H CK-MB (CK-2) Rel Index 7.1 H Troponin T 0.056 H D Total Protein Albumin 2.2 L Urine WBC (Auto) Vancomycin Trough 03/14/19 03/14/19 03/14/19 09:05 11:54 12:15 WBC RBC Hgb Hct MCV RDW Plt Count Seg Neuts % (Manual) Lymphocytes % (Manual) Monocytes % (Manual) Eosinophils % (Manual) Nucleated RBC % Seg Neutrophils # Man Lymphocytes # (Manual) POC ABG pH 7.283 L 7.458 H ABG pH POC ABG pCO2 54.9 H 32.7 L POC ABG pO2 76 L ABG pO2 ABG HCO3 ABG Base Excess ABG Hemoglobin Sodium Potassium Chloride Carbon Dioxide BUN Creatinine Glucose POC Glucose Lactic Acid 2.10 H* Calcium AST ALT Alkaline Phosphatase Total Creatine Kinase CK-MB (CK-2) CK-MB (CK-2) Rel Index Troponin T Total Protein Albumin Urine WBC (Auto) Vancomycin Trough 03/14/19 03/14/19 03/14/19 12:43 13:35 15:35 WBC RBC Hgb Hct MCV RDW Plt Count Seg Neuts % (Manual) Lymphocytes % (Manual) Monocytes % (Manual) Eosinophils % (Manual) Nucleated RBC % Seg Neutrophils # Man Lymphocytes # (Manual) POC ABG pH ABG pH POC ABG pCO2 POC ABG pO2 ABG pO2 ABG HCO3 ABG Base Excess ABG Hemoglobin Sodium Potassium Chloride Carbon Dioxide BUN Creatinine Glucose POC Glucose 68 L Lactic Acid 2.10 H* 3.50 H* Calcium AST ALT Alkaline Phosphatase Total Creatine Kinase CK-MB (CK-2) CK-MB (CK-2) Rel Index Troponin T Total Protein Albumin Urine WBC (Auto) Vancomycin Trough 03/14/19 03/14/19 03/14/19 17:34 17:46 17:55 WBC RBC Hgb Hct MCV RDW Plt Count Seg Neuts % (Manual) Lymphocytes % (Manual) Monocytes % (Manual) Eosinophils % (Manual) Nucleated RBC % Seg Neutrophils # Man Lymphocytes # (Manual) POC ABG pH 7.241 L 7.244 L ABG pH POC ABG pCO2 50.4 H 50.1 H POC ABG pO2 156 H ABG pO2 ABG HCO3 ABG Base Excess ABG Hemoglobin Sodium Potassium Chloride Carbon Dioxide BUN Creatinine Glucose POC Glucose 49 L Lactic Acid Calcium AST ALT Alkaline Phosphatase Total Creatine Kinase CK-MB (CK-2) CK-MB (CK-2) Rel Index Troponin T Total Protein Albumin Urine WBC (Auto) Vancomycin Trough 03/14/19 03/14/19 03/14/19 18:29 18:32 20:27 WBC RBC Hgb Hct MCV RDW Plt Count Seg Neuts % (Manual) Lymphocytes % (Manual) Monocytes % (Manual) Eosinophils % (Manual) Nucleated RBC % Seg Neutrophils # Man Lymphocytes # (Manual) POC ABG pH ABG pH POC ABG pCO2 POC ABG pO2 ABG pO2 ABG HCO3 ABG Base Excess ABG Hemoglobin Sodium Potassium Chloride 112.6 H Carbon Dioxide 19 L BUN Creatinine 1.4 H Glucose 132 H POC Glucose 57 L 115 H Lactic Acid Calcium AST ALT Alkaline Phosphatase Total Creatine Kinase CK-MB (CK-2) CK-MB (CK-2) Rel Index Troponin T Total Protein Albumin Urine WBC (Auto) Vancomycin Trough 10/28/19 10/28/19 10/29/19 23:47 Unknown 04:00 WBC RBC 2.77 L Hgb 8.5 L Hct 27.3 L MCV 98 H RDW 23.0 H Plt Count 27 L Seg Neuts % (Manual) 75.0 H Lymphocytes % (Manual) 1.0 L Monocytes % (Manual) Eosinophils % (Manual) Nucleated RBC % 4.0 H Seg Neutrophils # Man Lymphocytes # (Manual) 0.1 L POC ABG pH ABG pH POC ABG pCO2 POC ABG pO2 ABG pO2 ABG HCO3 ABG Base Excess ABG Hemoglobin Sodium Potassium Chloride Carbon Dioxide BUN Creatinine Glucose POC Glucose 116 H Lactic Acid 3.30 H* Calcium AST ALT Alkaline Phosphatase Total Creatine Kinase CK-MB (CK-2) CK-MB (CK-2) Rel Index Troponin T Total Protein Albumin Urine WBC (Auto) Vancomycin Trough 03/15/19 03/15/19 03/15/19 04:00 06:24 07:35 WBC RBC Hgb Hct MCV RDW Plt Count Seg Neuts % (Manual) Lymphocytes % (Manual) Monocytes % (Manual) Eosinophils % (Manual) Nucleated RBC % Seg Neutrophils # Man Lymphocytes # (Manual) POC ABG pH 7.282 L ABG pH POC ABG pCO2 50.4 H POC ABG pO2 71 L ABG pO2 ABG HCO3 ABG Base Excess ABG Hemoglobin Sodium Potassium Chloride 112.1 H Carbon Dioxide 19 L BUN Creatinine 1.5 H Glucose 123 H POC Glucose 140 H Lactic Acid Calcium 8.2 L AST ALT Alkaline Phosphatase Total Creatine Kinase CK-MB (CK-2) CK-MB (CK-2) Rel Index Troponin T Total Protein Albumin Urine WBC (Auto) Vancomycin Trough 03/15/19 03/15/19 03/16/19 11:47 23:25 04:33 WBC RBC Hgb Hct MCV RDW Plt Count Seg Neuts % (Manual) Lymphocytes % (Manual) Monocytes % (Manual) Eosinophils % (Manual) Nucleated RBC % Seg Neutrophils # Man Lymphocytes # (Manual) POC ABG pH ABG pH 7.304 L POC ABG pCO2 POC ABG pO2 ABG pO2 174.4 H ABG HCO3 19.2 L ABG Base Excess -6.6 L ABG Hemoglobin 8.5 L Sodium Potassium Chloride Carbon Dioxide BUN Creatinine Glucose POC Glucose 161 H 139 H Lactic Acid Calcium AST ALT Alkaline Phosphatase Total Creatine Kinase CK-MB (CK-2) CK-MB (CK-2) Rel Index Troponin T Total Protein Albumin Urine WBC (Auto) Vancomycin Trough 03/16/19 03/16/19 03/16/19 05:19 05:19 05:19 WBC RBC 2.92 L Hgb 8.9 L Hct 28.0 L MCV RDW 22.8 H Plt Count 42 L Seg Neuts % (Manual) Lymphocytes % (Manual) Monocytes % (Manual) Eosinophils % (Manual) Nucleated RBC % Seg Neutrophils # Man Lymphocytes # (Manual) POC ABG pH ABG pH POC ABG pCO2 POC ABG pO2 ABG pO2 ABG HCO3 ABG Base Excess ABG Hemoglobin Sodium Potassium 5.2 H Chloride 114.0 H Carbon Dioxide 18 L BUN 22 H Creatinine 1.7 H Glucose 109 H POC Glucose Lactic Acid Calcium 8.0 L AST ALT Alkaline Phosphatase Total Creatine Kinase 194 H CK-MB (CK-2) CK-MB (CK-2) Rel Index Troponin T Total Protein Albumin Urine WBC (Auto) Vancomycin Trough 03/16/19 05:51 WBC RBC Hgb Hct MCV RDW Plt Count Seg Neuts % (Manual) Lymphocytes % (Manual) Monocytes % (Manual) Eosinophils % (Manual) Nucleated RBC % Seg Neutrophils # Man Lymphocytes # (Manual) POC ABG pH ABG pH POC ABG pCO2 POC ABG pO2 ABG pO2 ABG HCO3 ABG Base Excess ABG Hemoglobin Sodium Potassium Chloride Carbon Dioxide BUN Creatinine Glucose POC Glucose 123 H Lactic Acid Calcium AST ALT Alkaline Phosphatase Total Creatine Kinase CK-MB (CK-2) CK-MB (CK-2) Rel Index Troponin T Total Protein Albumin Urine WBC (Auto) Vancomycin Trough Chest x-ray: image reviewed (ETT in position, alveolar edema) Allied health notes reviewed: RT
[2019-03-16] MEDS: chlordiazePOXIDE 25 MG CAP PO SCH (09:48)
[2019-03-16] MEDS: FLUTICASONE PROPIONATE NASAL SPRAY 16 GM NS SCH (09:48)
[2019-03-16] MEDS: RIFAXIMIN 550 MG TAB PO SCH (09:48)
[2019-03-16] MEDS: THIAMINE 100 MG TAB PO SCH (09:48)
[2019-03-16] MEDS: FAMOTIDINE 20 MG TAB PO SCH (09:48)
[2019-03-16] MEDS: FOLIC ACID 1 MG TAB PO SCH (09:48)
[2019-03-16] MEDS ORDERED: MIDAZOLAM 2 MG/2 ML INJ ONE (10:51)
--- NOTE | 2019-03-16 10:54 | Progress Note ---
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, encephalopathy, renal disease Acute resp failure with hypoxia on mechanical ventilator less than 96 hours Management per assistant therapy aide -Chest x-ray shows worsening pulmonary edema Cannot rule out pneumonia, empiric antibiotics, echo shows preserved EF, cont inue diuretics KERRI is due to ATN and vasomotor nephropathy -monitor cr level VRE UTI, septic shock abx per ID , on two pressors, dopamine and vasopressin thrombocytopenia likely 2/2 sepsis Acute Metabolic encephalopathy with agitation - Probably due to the acute infection - head CT scan neg x 2 Acute on chronic Pancytopenia - continue to monitor levels - Oncology consulted Hypernatremia - probably 2/2 dehydration - improved on IV D5W Hyperkalemia - s/p kayexalate, resolved Hypoglycemia -On hypoglycemic protocol H/o CLD -Continue lactulose and rifaximin Nutrition Continue tube feeding DVT prophylaxis - On SCDs due to thrombocytopenia Disposition: Prognosis is guarded/poor Critical time spent: 35 mins History Interval history: Intubated and sedated, no vomiting, no fevers, no agitation, no seizures Hospitalist Physical - Physical exam Narrative exam: General.: No distress, intubated HEENT: Moist mucous membranes, extraocular muscles intact, no lymphadenopathy Neck: supple Cardiac: S1-S2 heard Lungs: clear to auscultation bilaterally Abdomen: soft , nontender, nondistended, bowel sounds positive Extremities: no edema clubbing or cyanosis Skin: no rash or lesions Neurologic: Intubated and sedated Psych: Intubated and sedated - Constitutional Vitals: Temp Pulse Resp BP Pulse Ox 97.4 F L 101 H 24 115/74 100 03/16/19 08:00 03/16/19 09:06 03/16/19 09:06 03/16/19 09:04 03/16/19 09:04 General appearance: Present: no acute distress, other (mildly agitated) Results - Labs CBC & Chem 7: 03/16/19 05:19 03/16/19 05:19 Labs: Laboratory Last Values WBC 9.3 K/mm3 (4.5-11.0) 03/16/19 05:19 RBC 2.92 M/mm3 (3.65-5.03) L 03/16/19 05:19 Hgb 8.9 gm/dl (10.1-14.3) L 03/16/19 05:19 Hct 28.0 % (30.3-42.9) L 03/16/19 05:19 MCV 96 fl (79-97) 03/16/19 05:19 MCH 30 pg (28-32) 03/16/19 05:19 MCHC 32 % (30-34) 03/16/19 05:19 RDW 22.8 % (13.2-15.2) H 03/16/19 05:19 Plt Count 42 K/mm3 (140-440) L 03/16/19 05:19 Lymph % (Auto) Concierge Manager 03/12/19 08:55 [place] % (Auto) Concierge Manager 03/12/19 08:55 Eos % (Auto) Concierge Manager 03/12/19 08:55 Baso % (Auto) Concierge Manager 03/12/19 08:55 Lymph # Concierge Manager 03/12/19 08:55 [place] # Concierge Manager 03/12/19 08:55 Eos # Concierge Manager 03/12/19 08:55 Baso # Concierge Manager 03/12/19 08:55 Add Manual Diff Complete 03/15/19 04:00 Total Counted 100 03/15/19 04:00 Seg Neutrophils % Concierge Manager 03/12/19 08:55 Seg Neuts % (Manual) 75.0 % (40.0-70.0) H 03/15/19 04:00 Band Neutrophils % 18.0 % 03/15/19 04:00 Lymphocytes % (Manual) 1.0 % (13.4-35.0) L 03/15/19 04:00 Reactive Lymphs % (Man) 0 % 03/15/19 04:00 Monocytes % (Manual) 4.0 % (0.0-7.3) 03/15/19 04:00 Eosinophils % (Manual) 1.0 % (0.0-4.3) 03/15/19 04:00 Basophils % (Manual) 0 % (0.0-1.8) 03/15/19 04:00 Metamyelocytes % 1.0 % 03/15/19 04:00 Myelocytes % 0 % 03/15/19 04:00 Promyelocytes % 0 % 03/15/19 04:00 Blast Cells % 0 % 03/15/19 04:00 Nucleated RBC % 4.0 % (0.0-0.9) H 03/15/19 04:00 Seg Neutrophils # Concierge Manager 03/12/19 08:55 Seg Neutrophils # Man 5.2 K/mm3 (1.8-7.7) 03/15/19 04:00 Band Neutrophils # 1.2 K/mm3 03/15/19 04:00 Lymphocytes # (Manual) 0.1 K/mm3 (1.2-5.4) L 03/15/19 04:00 Abs React Lymphs (Man) 0.0 K/mm3 03/15/19 04:00 Monocytes # (Manual) 0.3 K/mm3 (0.0-0.8) 03/15/19 04:00 Eosinophils # (Manual) 0.1 K/mm3 (0.0-0.4) 03/15/19 04:00 Basophils # (Manual) 0.0 K/mm3 (0.0-0.1) 03/15/19 04:00 Metamyelocytes # 0.1 K/mm3 03/15/19 04:00 Myelocytes # 0.0 K/mm3 03/15/19 04:00 Promyelocytes # 0.0 K/mm3 03/15/19 04:00 Blast Cells # 0.0 K/mm3 03/15/19 04:00 WBC Morphology Not Reportable 03/15/19 04:00 Hypersegmented Neuts Not Reportable 03/15/19 04:00 Hyposegmented Neuts Not Reportable 03/15/19 04:00 Hypogranular Neuts Not Reportable 03/15/19 04:00 Smudge Cells Not Reportable 03/15/19 04:00 Toxic Granulation Not Reportable 03/15/19 04:00 Toxic Vacuolation Not Reportable 03/15/19 04:00 Dohle Bodies Not Reportable 03/15/19 04:00 Pelger-Huet Anomaly Not Reportable 03/15/19 04:00 Sheila Rods Not Reportable 03/15/19 04:00 Platelet Estimate Consistent w auto 03/15/19 04:00 Clumped Platelets Not Reportable 03/15/19 04:00 Plt Clumps, EDTA Not Reportable 03/15/19 04:00 Large Platelets Not Reportable 03/15/19 04:00 Giant Platelets Not Reportable 03/15/19 04:00 Platelet Satelliting Not Reportable 03/15/19 04:00 Plt Morphology Comment Not Reportable 03/15/19 04:00 RBC Morphology Not Reportable 03/15/19 04:00 Dimorphic RBCs Not Reportable 03/15/19 04:00 Polychromasia Not Reportable 03/15/19 04:00 Hypochromasia Not Reportable 03/15/19 04:00 Poikilocytosis Not Reportable 03/15/19 04:00 Anisocytosis 1+ 03/15/19 04:00 Microcytosis Not Reportable 03/15/19 04:00 Macrocytosis Not Reportable 03/15/19 04:00 Spherocytes Not Reportable 03/15/19 04:00 Pappenheimer Bodies Not Reportable 03/15/19 04:00 Sickle Cells Not Reportable 03/15/19 04:00 Target Cells Not Reportable 03/15/19 04:00 Tear Drop Cells Not Reportable 03/15/19 04:00 Ovalocytes Not Reportable 03/15/19 04:00 Helmet Cells Not Reportable 03/15/19 04:00 [place] Bodies Not Reportable 03/15/19 04:00 [place] Rings Not Reportable 03/15/19 04:00 [place] Cells Not Reportable 03/15/19 04:00 Bite Cells Not Reportable 03/15/19 04:00 Crenated Cell Not Reportable 03/15/19 04:00 Elliptocytes Not Reportable 03/15/19 04:00 Acanthocytes (Spur) Not Reportable 03/15/19 04:00 Rouleaux Not Reportable 03/15/19 04:00 Hemoglobin C Crystals Not Reportable 03/15/19 04:00 Schistocytes Not Reportable 03/15/19 04:00 Malaria parasites Not Reportable 03/15/19 04:00 [place] Bodies Not Reportable 03/15/19 04:00 Hem Pathologist Commnt No 03/15/19 04:00 POC ABG pH 7.282 (7.35-7.45) L 03/15/19 07:35 ABG pH 7.304 pH Units (7.350-7.450) L 03/16/19 04:33 POC ABG pCO2 50.4 (35-45) H 03/15/19 07:35 ABG pCO2 39.6 mm Hg 03/16/19 04:33 POC ABG pO2 71 (80-105) L 03/15/19 07:35 ABG pO2 174.4 mm Hg (80.0-90.0) H 03/16/19 04:33 POC ABG HCO3 23.8 (22-26 mml/L) 03/15/19 07:35 ABG HCO3 19.2 mmol/L (20.0-26.0) L 03/16/19 04:33 POC ABG Total CO2 25 (23-27mmol/L) 03/15/19 07:35 POC ABG O2 Sat 92 03/15/19 07:35 ABG O2 Saturation 99.0 % (95.0-99.0) 03/16/19 04:33 ABG O2 Content 12.0 (0.0-44) 03/16/19 04:33 POC ABG Base Excess -3 ((-2) - (+3)mmol/L) 03/15/19 07:35 ABG Base Excess -6.6 mmol/L (-2.0-3.0) L 03/16/19 04:33 ABG Hemoglobin 8.5 gm/dl (12.0-16.0) L 03/16/19 04:33 ABG Carboxyhemoglobin 1.9 % (0.0-5.0) 03/16/19 04:33 ABG Methemoglobin 0.6 % (0.0-1.5) 03/16/19 04:33 Oxyhemoglobin 96.6 % (95.0-99.0) 03/16/19 04:33 FiO2 65 % 03/16/19 04:33 Sodium 142 mmol/L (137-145) 03/16/19 05:19 Potassium 5.2 mmol/L (3.6-5.0) H 03/16/19 05:19 Chloride 114.0 mmol/L (98-107) H 03/16/19 05:19 Carbon Dioxide 18 mmol/L (22-30) L 03/16/19 05:19 Anion Gap 15 mmol/L 03/16/19 05:19 BUN 22 mg/dL (7-17) H 03/16/19 05:19 Creatinine 1.7 mg/dL (0.7-1.2) H 03/16/19 05:19 Estimated GFR 36 ml/min 03/16/19 05:19 BUN/Creatinine Ratio 13 % 03/16/19 05:19 Glucose 109 mg/dL (65-100) H 03/16/19 05:19 POC Glucose 123 (70-105) H 03/16/19 05:51 Hemoglobin A1c 4.6 % (4-6) 03/10/19 13:16 Lactic Acid 1.50 mmol/L (0.7-2.0) 03/15/19 13:15 Calcium 8.0 mg/dL (8.4-10.2) L 03/16/19 05:19 Total Bilirubin 0.50 mg/dL (0.1-1.2) 03/14/19 06:44 AST 144 units/L (5-40) H 03/14/19 06:44 ALT 90 units/L (7-56) H 03/14/19 06:44 Alkaline Phosphatase 226 units/L (35-129) H 03/14/19 06:44 Ammonia 54.0 umol/L (25-60) 03/11/19 07:29 Total Creatine Kinase 194 units/L (30-135) H 03/16/19 05:19 CK-MB (CK-2) 8.6 ng/mL (0.0-4.0) H 03/14/19 06:44 CK-MB (CK-2) Rel Index 7.1 (0-4) H 03/14/19 06:44 Troponin T 0.056 ng/mL (0.00-0.029) H D 03/14/19 06:44 Total Protein 6.7 g/dL (6.3-8.2) 03/14/19 06:44 Albumin 2.2 g/dL (3.9-5) L 03/14/19 06:44 Albumin/Globulin Ratio 0.5 % 03/14/19 06:44 Triglycerides 62 mg/dL (2-149) 03/14/19 06:44 Cholesterol 133 mg/dL (50-199) 03/14/19 06:44 LDL Cholesterol Direct 89 mg/dL (50-130) 03/14/19 06:44 HDL Cholesterol 43 mg/dL (40-59) 03/14/19 06:44 Cholesterol/HDL Ratio 3.09 % 03/14/19 06:44 Urine Color Straw (Yellow) 03/10/19 14:38 Urine Turbidity Clear (Clear) 03/10/19 14:38 Urine pH 7.0 (5.0-7.0) 03/10/19 14:38 Ur Specific [place] 1.009 (1.003-1.030) 03/10/19 14:38 Urine Protein <15 mg/dl mg/dL (Negative) 03/10/19 14:38 Urine Glucose (UA) Neg mg/dL (Negative) 03/10/19 14:38 Urine Ketones Neg mg/dL (Negative) 03/10/19 14:38 Urine Blood Neg (Negative) 03/10/19 14:38 Urine Nitrite Neg (Negative) 03/10/19 14:38 Urine Bilirubin Neg (Negative) 03/10/19 14:38 Urine Urobilinogen < 2.0 mg/dL (<2.0) 03/10/19 14:38 Ur Leukocyte Esterase Sm (Negative) 03/10/19 14:38 Urine WBC (Auto) 9.0 /HPF (0.0-6.0) H 03/10/19 14:38 Urine RBC (Auto) 2.0 /HPF (0.0-6.0) 03/10/19 14:38 U Epithel Cells (Auto) 1.0 /HPF (0-13.0) 03/10/19 14:38 Urine Bacteria (Auto) 2+ /HPF (Negative) 03/10/19 14:38 Urine Mucus Few /HPF 03/10/19 14:38 Vancomycin Trough 39.7 ug/mL (5.0-20.0) H 03/13/19 05:58 Random Vancomycin 27.6 ug/mL (0-40.0) 03/14/19 05:44 Active Medications - Current Medications Current Medications: Generic Name Dose Route Start Last Admin Trade Name Freq PRN Reason Stop Dose Admin Acetaminophen 650 mg 03/10/19 17:46 Tylenol PO Q4H PRN Pain MILD(1-3)/Fever >100.5/GUERRERO Albuterol 2.5 mg 03/11/19 03:52 Proventil IH TID PRN Wheezing Albuterol/Ipratropium 1 ampul 03/11/19 08:00 03/16/19 09:06 Duoneb *Not For Prn Use* IH 1 ampul Q6HRT CONNIE Administration Lipase/Protease/Amylase 1 each 03/14/19 13:25 Pancremartine Sahni 10,500 Unit FEEDTUBE PRN PRN For Clogged Feeding Tube Chlordiazepoxide HCl 25 mg 03/11/19 10:00 03/16/19 09:48 Librium PO 25 mg DAILY CONNIE Administration Dextrose 50 ml 03/10/19 22:27 03/14/19 17:55 D50w (25gm) Syringe IV 50 ml Q30MIN PRN Administration Hypoglycemia Famotidine 20 mg 03/15/19 10:00 03/16/19 09:48 Pepcid PO 20 mg DAILY CONNIE Administration Fluticasone Propionate 50 mcg 03/11/19 10:00 03/16/19 09:48 Flonase NS 50 mcg QDAY CONNIE Administration Folic Acid 1 mg 03/11/19 10:00 03/16/19 09:48 Folvite PO 1 mg QDAY CONNIE Administration Haloperidol 0.5 mg 03/11/19 03:52 03/12/19 09:32 Haldol PO 0.5 mg Q6H PRN Administration Agitation Hydrophilic Ointment 1 applic 03/14/19 06:51 Vaseline Lip Therapy TP Q2HR PRN Dry Lips Propofol 1,000 mg in 100 mls @ 2.587 mls/hr 03/14/19 07:00 03/14/19 12:00 Diprivan 10 Mg/Ml IV 0 mcg/kg/min TITR CONNIE 0 mls/hr Titration Protocol 5 MCG/KG/MIN Piperacillin Sod/Tazobactam Sod 4.5 gm in 100 mls @ 200 mls/hr 03/14/19 08:00 03/16/19 05:55 Zosyn/Ns 4.5gm/100ml IV 200 mls/hr Q6HR CONNIE Administration Protocol Fentanyl Citrate 2,000 mcg in 100 mls @ 4.312 mls/hr 03/14/19 11:00 03/16/19 01:24 Fentanyl Drip Premix IV 1 mcg/kg/hr TITR CONNIE 4.312 mls/hr Titration Protocol 1 MCG/KG/HR Dextrose/Sodium Chloride 1,000 mls @ 125 mls/hr 03/14/19 14:50 03/16/19 01:30 D5ns IV 125 mls/hr DIRECT CONNIE Administration Vasopressin 20 unit/ Sodium 101 mls @ 9.09 mls/hr 03/14/19 14:00 03/15/19 22:46 Chloride IV 0.03 units/min TITR CONNIE 9.09 mls/hr Administration Protocol 0.03 UNITS/MIN Dopamine HCl/Dextrose 800 mg in 250 mls @ 3.234 mls/hr 03/14/19 22:00 03/16/19 10:05 Intropin Drip 800 Mg/D5w 250 Ml IV 7 mcg/kg/min TITR CONNIE 11.318 mls/hr Titration Protocol 2 MCG/KG/MIN Daptomycin 700 mg/ Sodium 100 mls @ 200 mls/hr 03/16/19 10:00 Chloride IV Q48HR [facility] Protocol Insulin Human Lispro 0 unit 03/11/19 00:00 03/16/19 00:24 Humalog SUB-Q Not Given Q6HR [facility] Protocol Morphine Sulfate 2 mg 03/10/19 17:56 03/15/19 02:12 Morphine IV 2 mg Q4H PRN Administration Pain, Moderate (4-6) Multi-Ingred Cream/Lotion/Oil/Oint 1 applic 03/14/19 06:51 Artificial Tears Ophth Oint OU Q4HR PRN Dry Eye(s) Ondansetron HCl 4 mg 03/10/19 17:46 03/11/19 05:04 Zofran IV 4 mg Q8H PRN Administration Nausea And Vomiting Rifaximin 550 mg 03/11/19 10:00 03/16/19 09:48 Xifaxan PO 550 mg BID CONNIE Administration Simple Syrup 15 ml 03/14/19 13:25 Simple Syrup FEEDTUBE PRN PRN Hypoglycemia Simple Syrup 30 ml 03/14/19 13:25 Simple Syrup FEEDTUBE PRN PRN Hypoglycemia Sodium Bicarbonate 325 mg 03/14/19 13:25 Sodium Bicarbonate FEEDTUBE PRN PRN For Clogged Feeding Tube Sodium Chloride 10 ml 03/10/19 22:00 03/16/19 09:49 Sodium Chloride Flush Syringe 10 Ml IV 10 ml BID CONNIE Administration Sodium Chloride 10 ml 03/10/19 17:46 03/13/19 22:50 Sodium Chloride Flush Syringe 10 Ml IV 10 ml PRN PRN Administration LINE FLUSH Thiamine HCl 100 mg 03/11/19 10:00 03/16/19 09:48 Vitamin B-1 PO 100 mg QDAY CONNIE Administration Nutrition/Malnutrition Assess - Dietary Evaluation Nutrition/Malnutrition Findings: Nutrition Notes Start: 03/11/19 10:01 Freq: Status: Active Protocol: Document 03/15/19 10:07 AP (Rec: 03/15/19 10:37 AP [id number]) Co-Sign 03/15/19 10:07 LM Nutrition Notes Need for Assessment generated from: MD Order Initial or Follow up Reassessment Current Diagnosis COPD,Decubitus(Pressure Ulcer) ,Hypertension Other Pertinent Diagnosis AMS/nonverbal, Hep C, Anemia, Renal stones Current Diet Vital AF 1.2 at 55ml/hr Labs/Tests Reviewed Pertinent Medications Propofol at 2.587 ml/hr ( provides 68 kcal) Height 5 ft 3 in Weight 89.9 kg [place] Body Weight (kg) 52.27 BMI 35.1 Weight Status Obese Subjective/Other Information F/U for TF reinitiation. TF will resume per MD later today , dobhoff in place. Percent of energy/protein needs met: 0%/0% Minimum of two criteria No Reduced Associate Director Regulatory Affairs Strength Measurably Reduced (severe) #1 Nutrition Diagnosis Inadequate oral intake Diagnosis Progress(for reassessment Continues documentation) Is patient on ventilator? Yes Is Patient Ambulatory and/or Out of Bed No REE-([facility]-confined to bed) [phone] Calculation Used for Recommendations [facility] Additional Notes Protein: >105 g (>2g/kg IBW 52 .27 kg) Fluids: 1 ml/kcal or per MD Nutrition Intervention Change Diet Order: TF Nutrition Support: Vital AF 1.2 at 55ml/hr Flush 100ml q4h Kcal 1,584 Protein (gm) 99 Fluid (mL) 1,071 Goal #1 TF tolerance Goal #2 TF to meet at least 80% of estimated energy and protein needs. Anticipated Discharge Needs: unable to determine at this time Follow-Up By: 03/17/19 Additional Comments F/U for TF tolerance/rates.
--- NOTE | 2019-03-16 11:08 | Procedure Note ---
Date of procedure: 03/16/19 Pre-op diagnosis: Severe sepsis with septic shock, acute hypoxic respiratory failure Post-op diagnosis: same Procedure: Right IJ central venous catheter under ultrasound guidance Informed consent obtained. [place] precautions addressed. Sterile drapes, under ultrasound guidance, right internal jugular identified, canulated. Dark red blood aspirated, guidewire passed. Stab wound created, vein dilated. Triple lumen CVC placed, Seldinger technique, guidewire removed. All ports aspirating blood and flushing easily Sterile dressing placed. Stat CXR ordered. No immediate complications. Anesthesia: other (Midazolam) Surgeon: GIOVANNY LAL Estimated blood loss: minimal Pathology: none Condition: critical Disposition: ICU
[2019-03-16] MEDS: fentaNYL DRIP Premix 2,000 MCG/100 ML BAG IV SCH (11:12)
--- NOTE | 2019-03-16 11:34 | XRay Report ---
CHEST 1 VIEW INDICATION / CLINICAL INFORMATION: R internal Jugular TLC placement.. COMPARISON: 03/16/2019, at 0223 hours FINDINGS: SUPPORT DEVICES: There is a new right internal jugular central line with the tip injecting at the exp ected location of the superior vena cava/right atrial junction. Endotracheal tube and feeding tube ap pear unchanged HEART / MEDIASTINUM: Unchanged LUNGS / PLEURA: There is bilateral perihilar initial disease characteristic of pulmonary edema. As ap pears relatively unchanged when compared to earlier today.. No pneumothorax. ADDITIONAL FINDINGS: No significant additional findings. IMPRESSION: 1. Pulmonary edema appears unchanged. Right internal jugular central line appears in satisfactory pos ition radiographically. No pneumothorax is seen. Signer Name: Rogers Conner MD Signed: 03/16/2019 11:30 AM Workstation Name: [id number]
[2019-03-16] MEDS: VASOPRESSIN 20 UNIT in SODIUM CHLORIDE 0.9% 100 ML IV SCH (11:49)
[2019-03-16 11:53] LABS: Band Neutrophils # (Manual) 0.1 K/mm3; Basophils % (Manual) 0 % (0.0-1.8); Total Cells Counted 100
[2019-03-16 11:55] LABS: Anisocytosis Few; Ovalocytes Few; Platelet Estimate Consistent w Auto
[2019-03-16] MEDS ORDERED: MIDAZOLAM 2 MG/2 ML INJ IV ONE (12:00)
--- NOTE | 2019-03-16 14:58 | Progress Note ---
Assessment and Plan Cultures: 03/10 UCx - VRE faecim 03/10 BCx - NGTD 03/14 BCX - NGTD A/P: 68 yo F PMHx hepatitis C, Dm2, many other comorbidities admitted with altered mental status, possible secondary to VRE UTI 1. VRE UTI - given worsening thrombocytopenia would treat with daptomycin. Would also ensure steen catheter is changed prior to cessation of antibiotics. OK to stop vancomycin and pip-david. 2. Hepatitis C 3. DM2 - tight glycemic control for wound healing Recs: - start daptomycin 8mg/kg q24h - plan for 5 day course stop date 03/19 - ordered CK for AM for daptomycin monitoring. - change steen catheter when able. Thank you for the consult, we will continue to follow. Berta Stacy MD [facility] ([facility]) M: [phone] O: [phone] F: [phone] Subjective Date of service: 03/16/19 Principal diagnosis: low plt Interval history: remains intubated and sedated Objective - Exam Narrative Exam: Constitutional: intubated, sedated Head, Ears, Nose: Normocephalic, atraumatic. External ears, nose normal Eyes: Conjunctivae/corneas clear. No icterus. No ptosis. Neck: Supple, no meningeal signs Oral: dentition fair, no thrush Cardiovascular: S1, S2 normal. Respiratory: Good air entry, clear to auscultation bilaterally GI: Soft, non-tender; bowel sounds normal. No peritoneal signs. Musculoskeletal: No pedal edema, no cyanosis. Skin: No rash or abscess Hem/Lymphatic: No palpable cervical or supraclavicular nodes. No lymphangitis Psych: Sedated Neurological: Intubated, sedated - Constitutional Vitals: Vital Signs Temp Pulse Resp BP Pulse Ox 96.8 F L 90 11 L 111/65 100 03/16/19 12:00 03/16/19 14:15 03/16/19 14:15 03/16/19 14:15 03/16/19 14:15 Temperature -Last 24 Hours Temperature 96.8 F Temperature 97.4 F Temperature 96.6 F Temperature 96.6 F Temperature 96.4 F Temperature 97.9 F - Labs CBC & Chem 7: 03/16/19 05:19 03/16/19 05:19 Labs: Abnormal lab results 03/15/19 03/16/19 03/16/19 Range/Units 23:25 04:33 05:19 RBC 2.92 L (3.65-5.03) M/mm3 Hgb 8.9 L (10.1-14.3) gm/dl Hct 28.0 L (30.3-42.9) % RDW 22.8 H (13.2-15.2) % Plt Count 42 L (140-440) K/mm3 Seg Neuts % (Manual) 84.0 H (40.0-70.0) % Lymphocytes % (Manual) 5.0 L (13.4-35.0) % Seg Neutrophils # Man 7.8 H (1.8-7.7) K/mm3 Lymphocytes # (Manual) 0.5 L (1.2-5.4) K/mm3 ABG pH 7.304 L (7.350-7.450) pH Units ABG pO2 174.4 H (80.0-90.0) mm Hg ABG HCO3 19.2 L (20.0-26.0) mmol/L ABG Base Excess -6.6 L (-2.0-3.0) mmol/L ABG Hemoglobin 8.5 L (12.0-16.0) gm/dl Potassium (3.6-5.0) mmol/L Chloride (98-107) mmol/L Carbon Dioxide (22-30) mmol/L BUN (7-17) mg/dL Creatinine (0.7-1.2) mg/dL Glucose (65-100) mg/dL POC Glucose 139 H (70-105) Calcium (8.4-10.2) mg/dL Total Creatine Kinase (30-135) units/L 03/16/19 03/16/19 03/16/19 Range/Units 05:19 05:19 05:51 RBC (3.65-5.03) M/mm3 Hgb (10.1-14.3) gm/dl Hct (30.3-42.9) % RDW (13.2-15.2) % Plt Count (140-440) K/mm3 Seg Neuts % (Manual) (40.0-70.0) % Lymphocytes % (Manual) (13.4-35.0) % Seg Neutrophils # Man (1.8-7.7) K/mm3 Lymphocytes # (Manual) (1.2-5.4) K/mm3 ABG pH (7.350-7.450) pH Units ABG pO2 (80.0-90.0) mm Hg ABG HCO3 (20.0-26.0) mmol/L ABG Base Excess (-2.0-3.0) mmol/L ABG Hemoglobin (12.0-16.0) gm/dl Potassium 5.2 H (3.6-5.0) mmol/L Chloride 114.0 H (98-107) mmol/L Carbon Dioxide 18 L (22-30) mmol/L BUN 22 H (7-17) mg/dL Creatinine 1.7 H (0.7-1.2) mg/dL Glucose 109 H (65-100) mg/dL POC Glucose 123 H (70-105) Calcium 8.0 L (8.4-10.2) mg/dL Total Creatine Kinase 194 H (30-135) units/L
[2019-03-17] MEDS: VASOPRESSIN 20 UNIT in SODIUM CHLORIDE 0.9% 100 ML IV SCH ×2 (00:16→13:06)
[2019-03-17] MEDS: PIPERACIL/TAZOBACTA 4.5/NS 100 4.5 GM/100 ML VIAL IV SCH ×4 (00:17→23:29)
[2019-03-17] MEDS: INSULIN LISPRO 100 UNIT/ML SUB-Q SCH ×4 (00:30→19:06)
[2019-03-17] MEDS: DOPamine/D5W 800 MG/250 ML 800 MG/250 ML BAG IV SCH (01:45)
[2019-03-17] MEDS: RIFAXIMIN 550 MG TAB PO SCH ×3 (02:11→22:47)
[2019-03-17] MEDS: IPRATROPIUM/ALBUTEROL SULFATE 3 ML AMPUL.NEB IH SCH ×4 (02:21→21:30)
--- NOTE | 2019-03-17 04:16 | XRay Report ---
CHEST 1 VIEW 0207 INDICATION / CLINICAL INFORMATION: follow up respiratory failure. COMPARISON: 03/16/2019 FINDINGS: SUPPORT DEVICES: Stable HEART / MEDIASTINUM: Stable LUNGS / PLEURA: Congestive changes and pulmonary edema continue. No pneumothorax. ADDITIONAL FINDINGS: No significant additional findings. IMPRESSION: No significant changes Signer Name: Derrek Baker MD Signed: 03/17/2019 4:11 AM Workstation Name: [id number]
[2019-03-17 05:12] LABS: Basophils % (Auto) 0.2 % (0.0-1.8); Eosinophils # (Auto) 0.3 K/mm3 (0.0-0.4); Eosinophils % (Auto) 3.2 % (0.0-4.3); Hematocrit 23.4 % (30.3-42.9); Hemoglobin 7.5 gm/dl (10.1-14.3); Lymphocytes # (Auto) 0.5 K/mm3 (1.2-5.4); Lymphocytes % (Auto) 6.2 % (13.4-35.0); Mean Corpuscular HGB Conc 32 % (30-34); Mean Corpuscular Volume 97 fl (79-97); Monocytes # (Auto) 0.6 K/mm3 (0.0-0.8); Monocytes % (Auto) 6.4 % (0.0-7.3); Red Blood Count 2.42 M/mm3 (3.65-5.03)
[2019-03-17] MEDS: D5W/0.9% NACL 1,000 ML IV SCH (05:22)
[2019-03-17 05:26] LABS: Red Cell Distribution Width 22.2 % (13.2-15.2)
[2019-03-17 05:27] LABS: Platelet Count 37 K/mm3 (140-440)
[2019-03-17 05:33] LABS: Calcium 7.9 mg/dL (8.4-10.2)
[2019-03-17 05:37] LABS: ABG Base Excess -8.8 mmol/L (-2.0-3.0); ABG HCO3 17.9 mmol/L (20.0-26.0); ABG Methemoglobin 0.5 % (0.0-1.5); ABG Oxygen Saturation 97.7 % (95.0-99.0); ABG PCO2 42.9 mm Hg; ABG PH 7.238 pH Units (7.350-7.450); ABG PO2 114.7 mm Hg (80.0-90.0)
--- NOTE | 2019-03-17 07:15 | Hem/Onc Progress Note ---
Assessment and Plan 1. h/o Leukopenia and the patient has a history of liver disease and alcohol usage. These may have a role. Thrombocytopenia may have a similar reason. Deficiency investigations. In January, B12 was 1400, folate 13. 2. Encephalopathy, being treated for sepsis. 3. History of electrolyte imbalance. 4. History of hypertension. 5. History of chronic obstructive pulmonary disease. 6. AST, ALT abnormality. 7. The patient was placed on reverse isolation. I will follow the patient during inpatient stay. wbc better - but pt on vent b12 - folate normal - will follow plt low - may be sec to meds/antibiotics ID following pt - Patient Problems (1) Leukopenia Current Visit: Yes Status: Acute Qualifiers: Leukopenia type: unspecified Qualified Code(s): D72.819 - Decreased white blood cell count, unspecified Subjective Date of service: 03/17/19 Principal diagnosis: low plt and anemia Interval history: on vent Objective - Exam Narrative Exam: Pain - on vent General appearance - intubated Performance status - complete dependence Eyes - no icterus, ENT - no bleeding LNs cervical not palpable Neck - no LN Respiratory Normal Breath sounds - CTA anteriorly CVS S1 S2 + Extremities edema+ General GI Soft Rectal deferred female - deferred Skin warm Musculoskeletal on vent Neurologically intubated - Constitutional Vitals: Last Vital Signs Temp 99.0 F 03/17/19 04:00 Pulse 96 H 03/17/19 07:00 Resp 15 03/17/19 07:00 BP 139/84 03/17/19 07:00 Pulse Ox 100 03/17/19 07:00 - Labs Lab Results: Laboratory Results - last 24 hr 03/15/19 03/15/19 03/16/19 05:30 05:47 05:19 WBC RBC Hgb Hct MCV MCH MCHC RDW Plt Count Lymph % (Auto) [place] % (Auto) Eos % (Auto) Baso % (Auto) Lymph # [place] # Eos # Baso # Add Manual Diff Complete Total Counted 100 Seg Neutrophils % Seg Neuts % (Manual) 84.0 H Band Neutrophils % 1.0 Lymphocytes % (Manual) 5.0 L Reactive Lymphs % (Man) 0 Monocytes % (Manual) 5.0 Eosinophils % (Manual) 3.0 Basophils % (Manual) 0 Metamyelocytes % 2.0 Myelocytes % 0 Promyelocytes % 0 Blast Cells % 0 Nucleated RBC % Not Reportable Seg Neutrophils # Seg Neutrophils # Man 7.8 H Band Neutrophils # 0.1 Lymphocytes # (Manual) 0.5 L Abs React Lymphs (Man) 0.0 Monocytes # (Manual) 0.5 Eosinophils # (Manual) 0.3 Basophils # (Manual) 0.0 Metamyelocytes # 0.2 Myelocytes # 0.0 Promyelocytes # 0.0 Blast Cells # 0.0 WBC Morphology Not Reportable Hypersegmented Neuts Not Reportable Hyposegmented Neuts Not Reportable Hypogranular Neuts Not Reportable Smudge Cells Not Reportable Toxic Granulation Not Reportable Toxic Vacuolation Not Reportable Dohle Bodies Not Reportable Pelger-Huet Anomaly Not Reportable Sheila Rods Not Reportable Platelet Estimate Consistent w auto Clumped Platelets Not Reportable Plt Clumps, EDTA Not Reportable Large Platelets Not Reportable Giant Platelets Not Reportable Platelet Satelliting Not Reportable Plt Morphology Comment Not Reportable RBC Morphology Not Reportable Dimorphic RBCs Not Reportable Polychromasia Not Reportable Hypochromasia Not Reportable Poikilocytosis Not Reportable Anisocytosis Few Microcytosis Not Reportable Macrocytosis Not Reportable Spherocytes Not Reportable Pappenheimer Bodies Not Reportable Sickle Cells Not Reportable Target Cells Not Reportable Tear Drop Cells Not Reportable Ovalocytes Few Helmet Cells Not Reportable Ann-[place] Bodies Not Reportable Jal Rings Not Reportable [place] Cells Not Reportable Bite Cells Not Reportable Crenated Cell Not Reportable Elliptocytes Not Reportable Acanthocytes (Spur) Not Reportable Rouleaux Not Reportable Hemoglobin C Crystals Not Reportable Schistocytes Not Reportable Malaria parasites Not Reportable [place] Bodies Not Reportable Hem Pathologist Commnt No POC ABG pH TNR TNR ABG pH POC ABG pCO2 TNR TNR ABG pCO2 POC ABG pO2 TNR TNR ABG pO2 POC ABG HCO3 TNR TNR ABG HCO3 POC ABG Total CO2 TNR TNR POC ABG O2 Sat TNR TNR ABG O2 Saturation ABG O2 Content POC ABG Base Excess TNR TNR ABG Base Excess ABG Hemoglobin ABG Carboxyhemoglobin ABG Methemoglobin Oxyhemoglobin FiO2 TNR TNR Sodium Potassium Chloride Carbon Dioxide Anion Gap BUN Creatinine Estimated GFR BUN/Creatinine Ratio Glucose POC Glucose Calcium 1003/16/19 03/17/19 12:19 17:42 00:46 WBC RBC Hgb Hct MCV MCH MCHC RDW Plt Count Lymph % (Auto) [place] % (Auto) Eos % (Auto) Baso % (Auto) Lymph # [place] # Eos # Baso # Add Manual Diff Total Counted Seg Neutrophils % Seg Neuts % (Manual) Band Neutrophils % Lymphocytes % (Manual) Reactive Lymphs % (Man) Monocytes % (Manual) Eosinophils % (Manual) Basophils % (Manual) Metamyelocytes % Myelocytes % Promyelocytes % Blast Cells % Nucleated RBC % Seg Neutrophils # Seg Neutrophils # Man Band Neutrophils # Lymphocytes # (Manual) Abs React Lymphs (Man) Monocytes # (Manual) Eosinophils # (Manual) Basophils # (Manual) Metamyelocytes # Myelocytes # Promyelocytes # Blast Cells # WBC Morphology Hypersegmented Neuts Hyposegmented Neuts Hypogranular Neuts Smudge Cells Toxic Granulation Toxic Vacuolation Dohle Bodies Pelger-Huet Anomaly Sheila Rods Platelet Estimate Clumped Platelets Plt Clumps, EDTA Large Platelets Giant Platelets Platelet Satelliting Plt Morphology Comment RBC Morphology Dimorphic RBCs Polychromasia Hypochromasia Poikilocytosis Anisocytosis Microcytosis Macrocytosis Spherocytes Pappenheimer Bodies Sickle Cells Target Cells Tear Drop Cells Ovalocytes Helmet Cells Ann-[place] Bodies Jal Rings [place] Cells Bite Cells Crenated Cell Elliptocytes Acanthocytes (Spur) Rouleaux Hemoglobin C Crystals Schistocytes Malaria parasites [place] Bodies Hem Pathologist Commnt POC ABG pH ABG pH POC ABG pCO2 ABG pCO2 POC ABG pO2 ABG pO2 POC ABG HCO3 ABG HCO3 POC ABG Total CO2 POC ABG O2 Sat ABG O2 Saturation ABG O2 Content POC ABG Base Excess ABG Base Excess ABG Hemoglobin ABG Carboxyhemoglobin ABG Methemoglobin Oxyhemoglobin FiO2 Sodium Potassium Chloride Carbon Dioxide Anion Gap BUN Creatinine Estimated GFR BUN/Creatinine Ratio Glucose POC Glucose 134 H 130 H 115 H Calcium 03/17/19 03/17/19 03/17/19 04:45 04:45 05:00 WBC 8.6 RBC 2.42 L Hgb 7.5 L Hct 23.4 L MCV 97 MCH 31 MCHC 32 RDW 22.2 H Plt Count 37 L Lymph % (Auto) 6.2 L [place] % (Auto) 6.4 Eos % (Auto) 3.2 Baso % (Auto) 0.2 Lymph # 0.5 L [place] # 0.6 Eos # 0.3 Baso # 0.0 Add Manual Diff Total Counted Seg Neutrophils % 84.0 H Seg Neuts % (Manual) Band Neutrophils % Lymphocytes % (Manual) Reactive Lymphs % (Man) Monocytes % (Manual) Eosinophils % (Manual) Basophils % (Manual) Metamyelocytes % Myelocytes % Promyelocytes % Blast Cells % Nucleated RBC % Seg Neutrophils # 7.2 Seg Neutrophils # Man Band Neutrophils # Lymphocytes # (Manual) Abs React Lymphs (Man) Monocytes # (Manual) Eosinophils # (Manual) Basophils # (Manual) Metamyelocytes # Myelocytes # Promyelocytes # Blast Cells # WBC Morphology Hypersegmented Neuts Hyposegmented Neuts Hypogranular Neuts Smudge Cells Toxic Granulation Toxic Vacuolation Dohle Bodies Pelger-Huet Anomaly Sheila Rods Platelet Estimate Clumped Platelets Plt Clumps, EDTA Large Platelets Giant Platelets Platelet Satelliting Plt Morphology Comment RBC Morphology Dimorphic RBCs Polychromasia Hypochromasia Poikilocytosis Anisocytosis Microcytosis Macrocytosis Spherocytes Pappenheimer Bodies Sickle Cells Target Cells Tear Drop Cells Ovalocytes Helmet Cells Ann-[place] Bodies Jal Rings [place] Cells Bite Cells Crenated Cell Elliptocytes Acanthocytes (Spur) Rouleaux Hemoglobin C Crystals Schistocytes Malaria parasites [place] Bodies Hem Pathologist Commnt POC ABG pH ABG pH 7.238 L POC ABG pCO2 ABG pCO2 42.9 POC ABG pO2 ABG pO2 114.7 H POC ABG HCO3 ABG HCO3 17.9 L POC ABG Total CO2 POC ABG O2 Sat ABG O2 Saturation 97.7 ABG O2 Content 9.9 POC ABG Base Excess ABG Base Excess -8.8 L ABG Hemoglobin 7.3 L ABG Carboxyhemoglobin 2.2 ABG Methemoglobin 0.5 Oxyhemoglobin 95.1 FiO2 30 Sodium 145 Potassium 4.2 Chloride 115.4 H Carbon Dioxide 16 L Anion Gap 18 BUN 27 H Creatinine 1.8 H Estimated GFR 34 BUN/Creatinine Ratio 15 Glucose 109 H POC Glucose Calcium 7.9 L 03/17/19 06:05 WBC RBC Hgb Hct MCV MCH MCHC RDW Plt Count Lymph % (Auto) [place] % (Auto) Eos % (Auto) Baso % (Auto) Lymph # [place] # Eos # Baso # Add Manual Diff Total Counted Seg Neutrophils % Seg Neuts % (Manual) Band Neutrophils % Lymphocytes % (Manual) Reactive Lymphs % (Man) Monocytes % (Manual) Eosinophils % (Manual) Basophils % (Manual) Metamyelocytes % Myelocytes % Promyelocytes % Blast Cells % Nucleated RBC % Seg Neutrophils # Seg Neutrophils # Man Band Neutrophils # Lymphocytes # (Manual) Abs React Lymphs (Man) Monocytes # (Manual) Eosinophils # (Manual) Basophils # (Manual) Metamyelocytes # Myelocytes # Promyelocytes # Blast Cells # WBC Morphology Hypersegmented Neuts Hyposegmented Neuts Hypogranular Neuts Smudge Cells Toxic Granulation Toxic Vacuolation Dohle Bodies Pelger-Huet Anomaly Sheila Rods Platelet Estimate Clumped Platelets Plt Clumps, EDTA Large Platelets Giant Platelets Platelet Satelliting Plt Morphology Comment RBC Morphology Dimorphic RBCs Polychromasia Hypochromasia Poikilocytosis Anisocytosis Microcytosis Macrocytosis Spherocytes Pappenheimer Bodies Sickle Cells Target Cells Tear Drop Cells Ovalocytes Helmet Cells Ann-[place] Bodies Jal Rings [place] Cells Bite Cells Crenated Cell Elliptocytes Acanthocytes (Spur) Rouleaux Hemoglobin C Crystals Schistocytes Malaria parasites [place] Bodies Hem Pathologist Commnt POC ABG pH ABG pH POC ABG pCO2 ABG pCO2 POC ABG pO2 ABG pO2 POC ABG HCO3 ABG HCO3 POC ABG Total CO2 POC ABG O2 Sat ABG O2 Saturation ABG O2 Content POC ABG Base Excess ABG Base Excess ABG Hemoglobin ABG Carboxyhemoglobin ABG Methemoglobin Oxyhemoglobin FiO2 Sodium Potassium Chloride Carbon Dioxide Anion Gap BUN Creatinine Estimated GFR BUN/Creatinine Ratio Glucose POC Glucose 124 H Calcium Medications & Allergies - Medications Allergies/Adverse Reactions: Allergies No Known Allergies Allergy (Verified 01/06/17 23:38) Per son Home Medications: Home Medications Medication Instructions Recorded Confirmed Last Taken Type Folic Acid [Folvite] 1 mg PO QDAY #30 tablet 08/12/18 03/10/19 03/09/19 Rx Haloperidol [Haldol] 0.5 mg PO Q6H PRN #30 tablet 08/12/18 03/10/19 03/10/19 Rx Lactulose [Cephulac] 20 gm PO Q12H #1 bottle 0303/10/19 03/09/19 Rx Rifaximin [Xifaxan] 550 mg PO BID #60 tablet 08/12/18 03/10/19 03/09/19 Rx Thiamine [Vitamin B-1] 100 mg PO QDAY #30 tablet 08/12/18 03/10/19 03/09/19 Rx amLODIPine 5 mg PO QDAY #30 tablet 08/12/18 03/10/19 03/09/19 Rx chlordiazePOXIDE [Librium] 25 mg PO DAILY #3 capsule 08/12/18 03/10/19 03/09/19 Rx ALBUTEROL NEB's [Proventil] 2.5 mg IH TID PRN 02/06/19 03/10/19 03/09/19 History Acetaminophen [Tylenol] 650 mg PO Q6HR PRN 02/06/19 03/10/19 03/09/19 History Fluticasone [Flonase] 1 spray NS QDAY 02/06/19 03/10/19 03/09/19 History Ipratropium/Albuterol Sulfate 1 spray IH QID 02/06/19 03/10/19 03/09/19 History [Combivent Respimat] Melatonin [Melatonin 10MG CAP] 10 mg PO QHS 02/06/19 03/10/19 03/09/19 History Active Medications: Generic Name Dose Route Start Last Admin Trade Name Freq PRN Reason Stop Dose Admin Acetaminophen 650 mg 03/10/19 17:46 Tylenol PO Q4H PRN Pain MILD(1-3)/Fever >100.5/GUERRERO Albuterol 2.5 mg 03/11/19 03:52 Proventil IH TID PRN Wheezing Albuterol/Ipratropium 1 ampul 03/11/19 08:00 03/17/19 02:21 Duoneb *Not For Prn Use* IH 1 ampul Q6HRT CONNIE Administration Lipase/Protease/Amylase 1 each 03/14/19 13:25 Roseann Sahni 10,500 Unit FEEDTUBE PRN PRN For Clogged Feeding Tube Chlordiazepoxide HCl 25 mg 03/11/19 10:00 03/16/19 09:48 Librium PO 25 mg DAILY CONNIE Administration Dextrose 50 ml 03/10/19 22:27 03/14/19 17:55 D50w (25gm) Syringe IV 50 ml Q30MIN PRN Administration Hypoglycemia Famotidine 20 mg 03/15/19 10:00 03/16/19 09:48 Pepcid PO 20 mg DAILY CONNIE Administration Fluticasone Propionate 50 mcg 03/11/19 10:00 03/16/19 09:48 Flonase NS 50 mcg QDAY CONNIE Administration Folic Acid 1 mg 03/11/19 10:00 03/16/19 09:48 Folvite PO 1 mg QDAY CONNIE Administration Haloperidol 0.5 mg 03/11/19 03:52 03/12/19 09:32 Haldol PO 0.5 mg Q6H PRN Administration Agitation Hydrophilic Ointment 1 applic 03/14/19 06:51 Vaseline Lip Therapy TP Q2HR PRN Dry Lips Propofol 1,000 mg in 100 mls @ 2.587 mls/hr 03/14/19 07:00 03/14/19 12:00 Diprivan 10 Mg/Ml IV 0 mcg/kg/min TITR CONNIE 0 mls/hr Titration Protocol 5 MCG/KG/MIN Piperacillin Sod/Tazobactam Sod 4.5 gm in 100 mls @ 200 mls/hr 03/14/19 08:00 03/17/19 07:07 Zosyn/Ns 4.5gm/100ml IV 200 mls/hr Q6HR CONNIE Administration Protocol Fentanyl Citrate 2,000 mcg in 100 mls @ 4.312 mls/hr 03/14/19 11:00 03/16/19 23:48 Fentanyl Drip Premix IV 0 mcg/kg/hr TITR CONNIE 0 mls/hr Titration Protocol 1 MCG/KG/HR Dextrose/Sodium Chloride 1,000 mls @ 125 mls/hr 03/14/19 14:50 03/17/19 05:22 D5ns IV 125 mls/hr DIRECT CONNIE Administration Vasopressin 20 unit/ Sodium 101 mls @ 9.09 mls/hr 03/14/19 14:00 03/17/19 00:16 Chloride IV 0.03 units/min TITR CONNIE 9.09 mls/hr Administration Protocol 0.03 UNITS/MIN Dopamine HCl/Dextrose 800 mg in 250 mls @ 3.234 mls/hr 03/14/19 22:00 03/17/19 01:45 Intropin Drip 800 Mg/D5w 250 Ml IV 5 mcg/kg/min TITR CONNIE 8.084 mls/hr Administration Protocol 2 MCG/KG/MIN Daptomycin 700 mg/ Sodium 100 mls @ 200 mls/hr 03/16/19 10:00 03/16/19 11:14 Chloride IV 200 mls/hr Q48HR [facility] Administration Protocol Insulin Human Lispro 0 unit 03/11/19 00:00 03/17/19 06:30 Humalog SUB-Q Not Given Q6HR [facility] Protocol Morphine Sulfate 2 mg 03/10/19 17:56 03/15/19 02:12 Morphine IV 2 mg Q4H PRN Administration Pain, Moderate (4-6) Multi-Ingred Cream/Lotion/Oil/Oint 1 applic 03/14/19 06:51 Artificial Tears Ophth Oint OU Q4HR PRN Dry Eye(s) Ondansetron HCl 4 mg 03/10/19 17:46 03/11/19 05:04 Zofran IV 4 mg Q8H PRN Administration Nausea And Vomiting Rifaximin 550 mg 03/11/19 10:00 03/17/19 02:11 Xifaxan PO 550 mg BID CONNIE Administration Simple Syrup 15 ml 03/14/19 13:25 Simple Syrup FEEDTUBE PRN PRN Hypoglycemia Simple Syrup 30 ml 03/14/19 13:25 Simple Syrup FEEDTUBE PRN PRN Hypoglycemia Sodium Bicarbonate 325 mg 03/14/19 13:25 Sodium Bicarbonate FEEDTUBE PRN PRN For Clogged Feeding Tube Sodium Chloride 10 ml 03/10/19 22:00 03/16/19 22:05 Sodium Chloride Flush Syringe 10 Ml IV Not Given BID CONNIE Sodium Chloride 10 ml 03/10/19 17:46 03/13/19 22:50 Sodium Chloride Flush Syringe 10 Ml IV 10 ml PRN PRN Administration LINE FLUSH Thiamine HCl 100 mg 03/11/19 10:00 03/16/19 09:48 Vitamin B-1 PO 100 mg QDAY CONNIE Administration
--- NOTE | 2019-03-17 10:40 | Progress Note ---
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 ID consult appreciated KERRI is due to ATN and vasomotor nephropathy -monitor cr level, stable VRE UTI, septic shock, sepsis POA abx per ID , on two pressors, dopamine and vasopressin thrombocytopenia likely 2/2 sepsis Acute Metabolic encephalopathy with agitation - Probably due to the acute infection - head CT scan neg x 2 Acute on chronic Pancytopenia - continue to monitor levels - Oncology consulted Hypernatremia - probably 2/2 dehydration - improved on IV D5W Hyperkalemia - s/p kayexalate, resolved Hypoglycemia -On hypoglycemic protocol H/o CLD -Continue lactulose and rifaximin Nutrition Continue tube feeding DVT prophylaxis - On SCDs due to thrombocytopenia Disposition: Prognosis is guarded/poor Critical time spent: 35 mins History Interval history: Intubated and sedated, no vomiting, no fevers, no agitation, no seizures Hospitalist Physical - Physical exam Narrative exam: General.: No distress, intubated HEENT: Moist mucous membranes, extraocular muscles intact, no lymphadenopathy Neck: supple Cardiac: S1-S2 heard Lungs: clear to auscultation bilaterally Abdomen: soft , nontender, nondistended, bowel sounds positive Extremities: no edema clubbing or cyanosis Skin: no rash or lesions Neurologic: Intubated and sedated Psych: Intubated and sedated - Constitutional Vitals: Temp Pulse Resp BP Pulse Ox 98.1 F 100 H 19 139/84 100 03/17/19 08:00 03/17/19 07:53 03/17/19 07:53 03/17/19 07:00 03/17/19 07:00 General appearance: Present: no acute distress, other (mildly agitated) Results - Labs CBC & Chem 7: 03/17/19 04:45 03/17/19 04:45 Labs: Laboratory Last Values WBC 8.6 K/mm3 (4.5-11.0) 03/17/19 04:45 RBC 2.42 M/mm3 (3.65-5.03) L 03/17/19 04:45 Hgb 7.5 gm/dl (10.1-14.3) L 03/17/19 04:45 Hct 23.4 % (30.3-42.9) L 03/17/19 04:45 MCV 97 fl (79-97) 03/17/19 04:45 MCH 31 pg (28-32) 03/17/19 04:45 MCHC 32 % (30-34) 03/17/19 04:45 RDW 22.2 % (13.2-15.2) H 03/17/19 04:45 Plt Count 37 K/mm3 (140-440) L 03/17/19 04:45 Lymph % (Auto) 6.2 % (13.4-35.0) L 03/17/19 04:45 [place] % (Auto) 6.4 % (0.0-7.3) 03/17/19 04:45 Eos % (Auto) 3.2 % (0.0-4.3) 03/17/19 04:45 Baso % (Auto) 0.2 % (0.0-1.8) 03/17/19 04:45 Lymph # 0.5 K/mm3 (1.2-5.4) L 03/17/19 04:45 [place] # 0.6 K/mm3 (0.0-0.8) 03/17/19 04:45 Eos # 0.3 K/mm3 (0.0-0.4) 03/17/19 04:45 Baso # 0.0 K/mm3 (0.0-0.1) 03/17/19 04:45 Add Manual Diff Complete 03/16/19 05:19 Total Counted 100 03/16/19 05:19 Seg Neutrophils % 84.0 % (40.0-70.0) H 03/17/19 04:45 Seg Neuts % (Manual) 84.0 % (40.0-70.0) H 03/16/19 05:19 Band Neutrophils % 1.0 % 03/16/19 05:19 Lymphocytes % (Manual) 5.0 % (13.4-35.0) L 03/16/19 05:19 Reactive Lymphs % (Man) 0 % 03/16/19 05:19 Monocytes % (Manual) 5.0 % (0.0-7.3) 03/16/19 05:19 Eosinophils % (Manual) 3.0 % (0.0-4.3) 03/16/19 05:19 Basophils % (Manual) 0 % (0.0-1.8) 03/16/19 05:19 Metamyelocytes % 2.0 % 03/16/19 05:19 Myelocytes % 0 % 03/16/19 05:19 Promyelocytes % 0 % 03/16/19 05:19 Blast Cells % 0 % 03/16/19 05:19 Nucleated RBC % Not Reportable 03/16/19 05:19 Seg Neutrophils # 7.2 K/mm3 (1.8-7.7) 03/17/19 04:45 Seg Neutrophils # Man 7.8 K/mm3 (1.8-7.7) H 03/16/19 05:19 Band Neutrophils # 0.1 K/mm3 03/16/19 05:19 Lymphocytes # (Manual) 0.5 K/mm3 (1.2-5.4) L 03/16/19 05:19 Abs React Lymphs (Man) 0.0 K/mm3 03/16/19 05:19 Monocytes # (Manual) 0.5 K/mm3 (0.0-0.8) 03/16/19 05:19 Eosinophils # (Manual) 0.3 K/mm3 (0.0-0.4) 03/16/19 05:19 Basophils # (Manual) 0.0 K/mm3 (0.0-0.1) 03/16/19 05:19 Metamyelocytes # 0.2 K/mm3 03/16/19 05:19 Myelocytes # 0.0 K/mm3 03/16/19 05:19 Promyelocytes # 0.0 K/mm3 03/16/19 05:19 Blast Cells # 0.0 K/mm3 03/16/19 05:19 WBC Morphology Not Reportable 03/16/19 05:19 Hypersegmented Neuts Not Reportable 03/16/19 05:19 Hyposegmented Neuts Not Reportable 03/16/19 05:19 Hypogranular Neuts Not Reportable 03/16/19 05:19 Smudge Cells Not Reportable 03/16/19 05:19 Toxic Granulation Not Reportable 03/16/19 05:19 Toxic Vacuolation Not Reportable 03/16/19 05:19 Dohle Bodies Not Reportable 03/16/19 05:19 Pelger-Huet Anomaly Not Reportable 03/16/19 05:19 Sheila Rods Not Reportable 03/16/19 05:19 Platelet Estimate Consistent w auto 03/16/19 05:19 Clumped Platelets Not Reportable 03/16/19 05:19 Plt Clumps, EDTA Not Reportable 03/16/19 05:19 Large Platelets Not Reportable 03/16/19 05:19 Giant Platelets Not Reportable 03/16/19 05:19 Platelet Satelliting Not Reportable 03/16/19 05:19 Plt Morphology Comment Not Reportable 03/16/19 05:19 RBC Morphology Not Reportable 03/16/19 05:19 Dimorphic RBCs Not Reportable 03/16/19 05:19 Polychromasia Not Reportable 03/16/19 05:19 Hypochromasia Not Reportable 03/16/19 05:19 Poikilocytosis Not Reportable 03/16/19 05:19 Anisocytosis Few 03/16/19 05:19 Microcytosis Not Reportable 03/16/19 05:19 Macrocytosis Not Reportable 03/16/19 05:19 Spherocytes Not Reportable 03/16/19 05:19 Pappenheimer Bodies Not Reportable 03/16/19 05:19 Sickle Cells Not Reportable 03/16/19 05:19 Target Cells Not Reportable 03/16/19 05:19 Tear Drop Cells Not Reportable 03/16/19 05:19 Ovalocytes Few 03/16/19 05:19 Helmet Cells Not Reportable 03/16/19 05:19 [place] Bodies Not Reportable 03/16/19 05:19 [place] Rings Not Reportable 03/16/19 05:19 [place] Cells Not Reportable 03/16/19 05:19 Bite Cells Not Reportable 03/16/19 05:19 Crenated Cell Not Reportable 03/16/19 05:19 Elliptocytes Not Reportable 03/16/19 05:19 Acanthocytes (Spur) Not Reportable 03/16/19 05:19 Rouleaux Not Reportable 03/16/19 05:19 Hemoglobin C Crystals Not Reportable 03/16/19 05:19 Schistocytes Not Reportable 03/16/19 05:19 Malaria parasites Not Reportable 03/16/19 05:19 [place] Bodies Not Reportable 03/16/19 05:19 Hem Pathologist Commnt No 03/16/19 05:19 POC ABG pH 7.282 (7.35-7.45) L 03/15/19 07:35 ABG pH 7.238 pH Units (7.350-7.450) L 03/17/19 05:00 POC ABG pCO2 50.4 (35-45) H 03/15/19 07:35 ABG pCO2 42.9 mm Hg 03/17/19 05:00 POC ABG pO2 71 (80-105) L 03/15/19 07:35 ABG pO2 114.7 mm Hg (80.0-90.0) H 03/17/19 05:00 POC ABG HCO3 23.8 (22-26 mml/L) 03/15/19 07:35 ABG HCO3 17.9 mmol/L (20.0-26.0) L 03/17/19 05:00 POC ABG Total CO2 25 (23-27mmol/L) 03/15/19 07:35 POC ABG O2 Sat 92 03/15/19 07:35 ABG O2 Saturation 97.7 % (95.0-99.0) 03/17/19 05:00 ABG O2 Content 9.9 (0.0-44) 03/17/19 05:00 POC ABG Base Excess -3 ((-2) - (+3)mmol/L) 03/15/19 07:35 ABG Base Excess -8.8 mmol/L (-2.0-3.0) L 03/17/19 05:00 ABG Hemoglobin 7.3 gm/dl (12.0-16.0) L 03/17/19 05:00 ABG Carboxyhemoglobin 2.2 % (0.0-5.0) 03/17/19 05:00 ABG Methemoglobin 0.5 % (0.0-1.5) 03/17/19 05:00 Oxyhemoglobin 95.1 % (95.0-99.0) 03/17/19 05:00 FiO2 30 % 03/17/19 05:00 Sodium 145 mmol/L (137-145) 03/17/19 04:45 Potassium 4.2 mmol/L (3.6-5.0) 03/17/19 04:45 Chloride 115.4 mmol/L (98-107) H 03/17/19 04:45 Carbon Dioxide 16 mmol/L (22-30) L 03/17/19 04:45 Anion Gap 18 mmol/L 03/17/19 04:45 BUN 27 mg/dL (7-17) H 03/17/19 04:45 Creatinine 1.8 mg/dL (0.7-1.2) H 03/17/19 04:45 Estimated GFR 34 ml/min 03/17/19 04:45 BUN/Creatinine Ratio 15 % 03/17/19 04:45 Glucose 109 mg/dL (65-100) H 03/17/19 04:45 POC Glucose 124 (70-105) H 03/17/19 06:05 Hemoglobin A1c 4.6 % (4-6) 03/10/19 13:16 Lactic Acid 1.50 mmol/L (0.7-2.0) 03/15/19 13:15 Calcium 7.9 mg/dL (8.4-10.2) L 03/17/19 04:45 Total Bilirubin 0.50 mg/dL (0.1-1.2) 03/14/19 06:44 AST 144 units/L (5-40) H 03/14/19 06:44 ALT 90 units/L (7-56) H 03/14/19 06:44 Alkaline Phosphatase 226 units/L (35-129) H 03/14/19 06:44 Ammonia 54.0 umol/L (25-60) 03/11/19 07:29 Total Creatine Kinase 194 units/L (30-135) H 03/16/19 05:19 CK-MB (CK-2) 8.6 ng/mL (0.0-4.0) H 03/14/19 06:44 CK-MB (CK-2) Rel Index 7.1 (0-4) H 03/14/19 06:44 Troponin T 0.056 ng/mL (0.00-0.029) H D 03/14/19 06:44 Total Protein 6.7 g/dL (6.3-8.2) 03/14/19 06:44 Albumin 2.2 g/dL (3.9-5) L 03/14/19 06:44 Albumin/Globulin Ratio 0.5 % 03/14/19 06:44 Triglycerides 62 mg/dL (2-149) 03/14/19 06:44 Cholesterol 133 mg/dL (50-199) 03/14/19 06:44 LDL Cholesterol Direct 89 mg/dL (50-130) 03/14/19 06:44 HDL Cholesterol 43 mg/dL (40-59) 03/14/19 06:44 Cholesterol/HDL Ratio 3.09 % 03/14/19 06:44 Urine Color Straw (Yellow) 03/10/19 14:38 Urine Turbidity Clear (Clear) 03/10/19 14:38 Urine pH 7.0 (5.0-7.0) 03/10/19 14:38 Ur Specific [place] 1.009 (1.003-1.030) 03/10/19 14:38 Urine Protein <15 mg/dl mg/dL (Negative) 03/10/19 14:38 Urine Glucose (UA) Neg mg/dL (Negative) 03/10/19 14:38 Urine Ketones Neg mg/dL (Negative) 03/10/19 14:38 Urine Blood Neg (Negative) 03/10/19 14:38 Urine Nitrite Neg (Negative) 03/10/19 14:38 Urine Bilirubin Neg (Negative) 03/10/19 14:38 Urine Urobilinogen < 2.0 mg/dL (<2.0) 03/10/19 14:38 Ur Leukocyte Esterase Sm (Negative) 03/10/19 14:38 Urine WBC (Auto) 9.0 /HPF (0.0-6.0) H 03/10/19 14:38 Urine RBC (Auto) 2.0 /HPF (0.0-6.0) 03/10/19 14:38 U Epithel Cells (Auto) 1.0 /HPF (0-13.0) 03/10/19 14:38 Urine Bacteria (Auto) 2+ /HPF (Negative) 03/10/19 14:38 Urine Mucus Few /HPF 03/10/19 14:38 Vancomycin Trough 39.7 ug/mL (5.0-20.0) H 03/13/19 05:58 Random Vancomycin 27.6 ug/mL (0-40.0) 03/14/19 05:44 Active Medications - Current Medications Current Medications: Generic Name Dose Route Start Last Admin Trade Name Freq PRN Reason Stop Dose Admin Acetaminophen 650 mg 03/10/19 17:46 Tylenol PO Q4H PRN Pain MILD(1-3)/Fever >100.5/GUERRERO Albuterol 2.5 mg 03/11/19 03:52 Proventil IH TID PRN Wheezing Albuterol/Ipratropium 1 ampul 03/11/19 08:00 03/17/19 07:53 Duoneb *Not For Prn Use* IH 1 ampul Q6HRT CONNIE Administration Lipase/Protease/Amylase 1 each 03/14/19 13:25 Pancremartine Sahni 10,500 Unit FEEDTUBE PRN PRN For Clogged Feeding Tube Chlordiazepoxide HCl 25 mg 03/11/19 10:00 03/16/19 09:48 Librium PO 25 mg DAILY CONNIE Administration Dextrose 50 ml 03/10/19 22:27 03/14/19 17:55 D50w (25gm) Syringe IV 50 ml Q30MIN PRN Administration Hypoglycemia Famotidine 20 mg 03/15/19 10:00 03/16/19 09:48 Pepcid PO 20 mg DAILY CONNIE Administration Fluticasone Propionate 50 mcg 03/11/19 10:00 03/16/19 09:48 Flonase NS 50 mcg QDAY CONNIE Administration Folic Acid 1 mg 03/11/19 10:00 03/16/19 09:48 Folvite PO 1 mg QDAY CONNIE Administration Haloperidol 0.5 mg 03/11/19 03:52 03/12/19 09:32 Haldol PO 0.5 mg Q6H PRN Administration Agitation Hydrophilic Ointment 1 applic 03/14/19 06:51 Vaseline Lip Therapy TP Q2HR PRN Dry Lips Propofol 1,000 mg in 100 mls @ 2.587 mls/hr 03/14/19 07:00 03/14/19 12:00 Diprivan 10 Mg/Ml IV 0 mcg/kg/min TITR CONNIE 0 mls/hr Titration Protocol 5 MCG/KG/MIN Piperacillin Sod/Tazobactam Sod 4.5 gm in 100 mls @ 200 mls/hr 03/14/19 08:00 03/17/19 07:07 Zosyn/Ns 4.5gm/100ml IV 200 mls/hr Q6HR CONNIE Administration Protocol Fentanyl Citrate 2,000 mcg in 100 mls @ 4.312 mls/hr 03/14/19 11:00 03/16/19 23:48 Fentanyl Drip Premix IV 0 mcg/kg/hr TITR CONNIE 0 mls/hr Titration Protocol 1 MCG/KG/HR Dextrose/Sodium Chloride 1,000 mls @ 125 mls/hr 03/14/19 14:50 03/17/19 05:22 D5ns IV 125 mls/hr DIRECT CONNIE Administration Vasopressin 20 unit/ Sodium 101 mls @ 9.09 mls/hr 03/14/19 14:00 03/17/19 08:15 Chloride IV 0.03 units/min TITR CONNIE 9.09 mls/hr Titration Protocol 0.03 UNITS/MIN Dopamine HCl/Dextrose 800 mg in 250 mls @ 3.234 mls/hr 03/14/19 22:00 03/17/19 09:15 Intropin Drip 800 Mg/D5w 250 Ml IV 2 mcg/kg/min TITR CONNIE 3.234 mls/hr Titration Protocol 2 MCG/KG/MIN Daptomycin 700 mg/ Sodium 100 mls @ 200 mls/hr 03/16/19 10:00 03/16/19 11:14 Chloride IV 200 mls/hr Q48HR CONNIE Administration Protocol Insulin Human Lispro 0 unit 03/11/19 00:00 03/17/19 06:30 Humalog SUB-Q Not Given Q6HR [facility] Protocol Morphine Sulfate 2 mg 03/10/19 17:56 03/15/19 02:12 Morphine IV 2 mg Q4H PRN Administration Pain, Moderate (4-6) Multi-Ingred Cream/Lotion/Oil/Oint 1 applic 03/14/19 06:51 Artificial Tears Ophth Oint OU Q4HR PRN Dry Eye(s) Ondansetron HCl 4 mg 03/10/19 17:46 03/11/19 05:04 Zofran IV 4 mg Q8H PRN Administration Nausea And Vomiting Rifaximin 550 mg 03/11/19 10:00 03/17/19 02:11 Xifaxan PO 550 mg BID CONNIE Administration Simple Syrup 15 ml 03/14/19 13:25 Simple Syrup FEEDTUBE PRN PRN Hypoglycemia Simple Syrup 30 ml 03/14/19 13:25 Simple Syrup FEEDTUBE PRN PRN Hypoglycemia Sodium Bicarbonate 325 mg 03/14/19 13:25 Sodium Bicarbonate FEEDTUBE PRN PRN For Clogged Feeding Tube Sodium Chloride 10 ml 03/10/19 22:00 03/16/19 22:05 Sodium Chloride Flush Syringe 10 Ml IV Not Given BID CONNIE Sodium Chloride 10 ml 03/10/19 17:46 03/13/19 22:50 Sodium Chloride Flush Syringe 10 Ml IV 10 ml PRN PRN Administration LINE FLUSH Thiamine HCl 100 mg 03/11/19 10:00 03/16/19 09:48 Vitamin B-1 PO 100 mg QDAY CONNIE Administration Nutrition/Malnutrition Assess - Dietary Evaluation Nutrition/Malnutrition Findings: Nutrition Notes Start: 03/11/19 10:01 Freq: Status: Active Protocol: Document 03/15/19 10:07 AP (Rec: 03/15/19 10:37 AP [id number]) Co-Sign 03/15/19 10:07 LM Nutrition Notes Need for Assessment generated from: MD Order Initial or Follow up Reassessment Current Diagnosis COPD,Decubitus(Pressure Ulcer) ,Hypertension Other Pertinent Diagnosis AMS/nonverbal, Hep C, Anemia, Renal stones Current Diet Vital AF 1.2 at 55ml/hr Labs/Tests Reviewed Pertinent Medications Propofol at 2.587 ml/hr ( provides 68 kcal) Height 5 ft 3 in Weight 89.9 kg [place] Body Weight (kg) 52.27 BMI 35.1 Weight Status Obese Subjective/Other Information F/U for TF reinitiation. TF will resume per MD later today , dobhoff in place. Percent of energy/protein needs met: 0%/0% Minimum of two criteria No Reduced Runway Model Strength Measurably Reduced (severe) #1 Nutrition Diagnosis Inadequate oral intake Diagnosis Progress(for reassessment Continues documentation) Is patient on ventilator? Yes Is Patient Ambulatory and/or Out of Bed No REE-([facility]-confined to bed) 0478.012 Calculation Used for Recommendations [facility] Additional Notes Protein: >105 g (>2g/kg IBW 52 .27 kg) Fluids: 1 ml/kcal or per MD Nutrition Intervention Change Diet Order: TF Nutrition Support: Vital AF 1.2 at 55ml/hr Flush 100ml q4h Kcal 1,584 Protein (gm) 99 Fluid (mL) 1,071 Goal #1 TF tolerance Goal #2 TF to meet at least 80% of estimated energy and protein needs. Anticipated Discharge Needs: unable to determine at this time Follow-Up By: 03/17/19 Additional Comments F/U for TF tolerance/rates.
--- NOTE | 2019-03-17 10:55 | Progress Note ---
Assessment and Plan Severe sepsis with septic shock Cardiac arrest (asystole with ROSC) Acute hypoxic respiratory failure on MVS Lactic acidosis- multifactorial (resolved) Acute toxic- metabolic encephalopathy Aspiration pneumonia VRE UTI Hypernatremia Thrombocytopenia h/o Cirrhosis h/o Alcohol abuse disorder KERRI Hyperkalemia - get CVP's and address - increase set minute volumes re: persistent metabolic acidosis and hypotension) - begin D5W with 3 amps NaHCO3/L at 125 ml's per hour X 3 liters and re-evaluate - lasix stopped - Continue to wean vasopressor support for MAP > 65 mmHg (currently on vasopressin & dopamine) - continue volume resuscitation for sepsis - VAP bundle addressed (Aspiration precautions, HOB > 40 degrees) - continue Lung protective strategies - continue to wean FIO2 for O2 sats>90% , once FIO2 is down to 50%, wean PEEP - prn CXR's & ABG's acutely - continue to avoid nephrotoxins and adjust all medications fro GFR and CrCL - daily SAT's and SBT assessment as tolerated - continue enteral nutrition and advance to goal rate as tolerated - continue agitation management / Pain management per CPOT - continue empiric antibiotics for aspiration PNA, antibiotics for VRE, de- escalate based on cultures and clinical status (ID input appreciated) - Continue contact isolation - Continue VTE prophylaxis (SCDs), trend platelet counts and monitor for bleeding - continue stress ulcer prophylaxis with PPI - continue accuchecks with glycemic control for SSI (While critically ill target blood glucose of 140-180 mg/dL; avoid hypoglycemia) - Continue mobility protocol for pressure ulcer prevention - Continue to monitor hemodynamics closely - Monitor electrolyte profile closely and replete as indicated - continue chronic home medications per attending and as clinically indicated - Continue to hold off on neuro-imaging for now - Continue Andersen catheter in this critically ill patient, with poor urine output, requiring accurate intake and output monitoring. - continue other care per attending / other consultants .... re-evaluate in am & prn CONDITION: CRITICAL PROGNOSIS: GUARDED CODE STATUS: FULL CODE The high probability of a clinically significant, sudden or life-threatening deterioration of the [respiratory, cardiovascular, neurology, hematology] system(s) required my full and direct attention, intervention and personal management. The aggregate critical care time was [35] minutes without overlap. Time includes spent on; [x] Data Review and interpretation [x] Patient assessment and monitoring of vital signs [x] Documentation [x] Medication orders and management Subjective Date of service: 03/17/19 Principal diagnosis: Severe sepsis with shock; Ac. hypoxemic resp failure; cardiac arrest; PNA Interval history: Follow up for severe sepsis with septic shock; acute hypoxemic respiratory failure on MVS; s/p cardiac arrest with ROSC; VRE UTI; Aspiration pneumonia Seen and examined at bedside; 24hour events reviewed; nursing and respiratory care staff consulted; no adverse overnight events reported to me; resting in bed; remains on MVS; daily SAT ongoing and she is begining to wake up and open her eyes; No emesis or overt aspiration; no high grade fevers; remains on Vasopressin Objective Vital Signs - 12hr 03/16/19 03/16/19 03/16/19 23:00 23:15 23:28 Temperature Pulse Rate 98 H 98 H 90 Pulse Rate [ Anterior Bilateral Throughout] Pulse Rate [ From Monitor] Respiratory 12 18 Rate Respiratory Rate [Anterior Bilateral Throughout] Blood Pressure 66/39 74/44 83/50 O2 Sat by Pulse 100 100 100 Oximetry 03/16/19 03/16/19 03/17/19 23:30 23:45 00:00 Temperature 97.8 F Pulse Rate 89 92 H 90 Pulse Rate [ Anterior Bilateral Throughout] Pulse Rate [ 90 From Monitor] Respiratory 19 10 L 14 Rate Respiratory Rate [Anterior Bilateral Throughout] Blood Pressure 83/50 86/55 85/49 O2 Sat by Pulse 100 100 100 Oximetry 03/17/19 03/17/19 03/17/19 00:15 00:30 00:45 Temperature Pulse Rate 91 H 95 H 95 H Pulse Rate [ Anterior Bilateral Throughout] Pulse Rate [ From Monitor] Respiratory 15 12 16 Rate Respiratory Rate [Anterior Bilateral Throughout] Blood Pressure 86/50 104/70 112/68 O2 Sat by Pulse 100 100 100 Oximetry 03/17/19 03/17/19 03/17/19 01:00 01:15 01:30 Temperature Pulse Rate 96 H 88 91 H Pulse Rate [ Anterior Bilateral Throughout] Pulse Rate [ From Monitor] Respiratory 11 L 16 24 Rate Respiratory Rate [Anterior Bilateral Throughout] Blood Pressure 97/69 87/56 95/57 O2 Sat by Pulse 100 100 100 Oximetry 03/17/19 03/17/19 03/17/19 01:45 02:00 02:15 Temperature Pulse Rate 87 96 H 91 H Pulse Rate [ Anterior Bilateral Throughout] Pulse Rate [ From Monitor] Respiratory 15 24 24 Rate Respiratory Rate [Anterior Bilateral Throughout] Blood Pressure 104/64 106/61 110/72 O2 Sat by Pulse 100 100 Oximetry 03/17/19 03/17/19 03/17/19 02:17 02:30 02:45 Temperature Pulse Rate 104 H 98 H Pulse Rate [ 99 H Anterior Bilateral Throughout] Pulse Rate [ From Monitor] Respiratory 14 23 Rate Respiratory 24 Rate [Anterior Bilateral Throughout] Blood Pressure 112/78 114/72 O2 Sat by Pulse Oximetry 03/17/19 03/17/19 03/17/19 03:00 03:15 03:30 Temperature Pulse Rate 100 H 98 H 100 H Pulse Rate [ Anterior Bilateral Throughout] Pulse Rate [ From Monitor] Respiratory 23 23 23 Rate Respiratory Rate [Anterior Bilateral Throughout] Blood Pressure 120/75 122/78 123/80 O2 Sat by Pulse Oximetry 03/17/19 03/17/19 03/17/19 03:45 04:00 04:15 Temperature 99.0 F Pulse Rate 100 H 99 H 97 H Pulse Rate [ Anterior Bilateral Throughout] Pulse Rate [ 93 H From Monitor] Respiratory 23 23 23 Rate Respiratory Rate [Anterior Bilateral Throughout] Blood Pressure 119/79 124/79 117/74 O2 Sat by Pulse 100 Oximetry 03/17/19 03/17/19 03/17/19 04:30 04:46 05:00 Temperature Pulse Rate 106 H 103 H 94 H Pulse Rate [ Anterior Bilateral Throughout] Pulse Rate [ From Monitor] Respiratory 15 13 13 Rate Respiratory Rate [Anterior Bilateral Throughout] Blood Pressure 108/64 76/47 68/37 O2 Sat by Pulse 100 Oximetry 03/17/19 03/17/19 03/17/19 05:14 05:15 05:30 Temperature Pulse Rate 70 69 104 H Pulse Rate [ Anterior Bilateral Throughout] Pulse Rate [ From Monitor] Respiratory 21 23 Rate Respiratory Rate [Anterior Bilateral Throughout] Blood Pressure 141/75 141/75 180/100 O2 Sat by Pulse 99 99 100 Oximetry 03/17/19 03/17/19 03/17/19 05:45 06:00 06:15 Temperature Pulse Rate 105 H 108 H 101 H Pulse Rate [ Anterior Bilateral Throughout] Pulse Rate [ From Monitor] Respiratory 15 16 20 Rate Respiratory Rate [Anterior Bilateral Throughout] Blood Pressure 183/103 177/101 147/88 O2 Sat by Pulse 100 100 100 Oximetry 03/17/19 03/17/19 03/17/19 06:30 06:45 07:00 Temperature Pulse Rate 97 H 94 H 96 H Pulse Rate [ Anterior Bilateral Throughout] Pulse Rate [ From Monitor] Respiratory 10 L 9 L 15 Rate Respiratory Rate [Anterior Bilateral Throughout] Blood Pressure 140/83 129/82 139/84 O2 Sat by Pulse 100 100 100 Oximetry 03/17/19 03/17/19 07:53 08:00 Temperature 98.1 F Pulse Rate Pulse Rate [ 100 H Anterior Bilateral Throughout] Pulse Rate [ From Monitor] Respiratory Rate Respiratory 19 Rate [Anterior Bilateral Throughout] Blood Pressure O2 Sat by Pulse Oximetry Constitutional: appears uncomfortable, other (elderly looking obese AAF with mild respiratory distress on MVS ) Eyes: non-icteric ENT: oropharynx moist, other (ETT at 23cm at the lip, small bowel feeding tube in nares) Neck: supple, no lymphadenopathy, no JVD Effort: mildly labored Ascultation: Bilateral: diminished breath sounds, rhonchi Percussion: Bilateral: not dull Cardiovascular: regular rate and rhythm, other (S1, S2, no murmurs, gallops or rubs rhythm strip shows accelerated junctional ) Gastrointestinal: normoactive bowel sounds, soft, non-tender, non-distended, other (No HSM) Integumentary: normal Extremities: no cyanosis, no edema, pulses normal, no ischemia or petechiae Neurologic: unable to assess Psychiatric: other (unable to assess) CBC and BMP: 03/17/19 04:45 03/17/19 04:45 ABG, PT/INR, D-dimer: ABG POC ABG pH 7.282 (7.35-7.45) L 03/15/19 07:35 ABG pH 7.238 pH Units (7.350-7.450) L 03/17/19 05:00 POC ABG pCO2 50.4 (35-45) H 03/15/19 07:35 ABG pCO2 42.9 mm Hg 03/17/19 05:00 POC ABG pO2 71 (80-105) L 03/15/19 07:35 ABG pO2 114.7 mm Hg (80.0-90.0) H 03/17/19 05:00 POC ABG HCO3 23.8 (22-26 mml/L) 03/15/19 07:35 POC ABG Total CO2 25 (23-27mmol/L) 03/15/19 07:35 POC ABG O2 Sat 92 03/15/19 07:35 ABG O2 Saturation 97.7 % (95.0-99.0) 03/17/19 05:00 Abnormal lab findings: Abnormal Labs 03/10/19 03/10/19 03/10/19 13:16 13:16 14:38 WBC 0.8 L* RBC 3.35 L Hgb Hct MCV RDW 22.1 H Plt Count 78 L Lymph % (Auto) Lymph # Seg Neutrophils % Seg Neuts % (Manual) Lymphocytes % (Manual) 49.0 H Monocytes % (Manual) Eosinophils % (Manual) Nucleated RBC % Seg Neutrophils # Man 0.3 L Lymphocytes # (Manual) 0.4 L POC ABG pH ABG pH POC ABG pCO2 POC ABG pO2 ABG pO2 ABG HCO3 ABG Base Excess ABG Hemoglobin Sodium 147 H Potassium 5.4 H Chloride 111.8 H Carbon Dioxide BUN Creatinine 0.6 L Glucose POC Glucose Lactic Acid Calcium AST 128 H ALT 79 H Alkaline Phosphatase 174 H Total Creatine Kinase CK-MB (CK-2) CK-MB (CK-2) Rel Index Troponin T Total Protein Albumin 2.4 L Urine WBC (Auto) 9.0 H Vancomycin Trough 03/10/19 03/10/19 03/11/19 21:22 23:36 07:29 WBC RBC Hgb Hct MCV RDW Plt Count Lymph % (Auto) Lymph # Seg Neutrophils % Seg Neuts % (Manual) Lymphocytes % (Manual) Monocytes % (Manual) Eosinophils % (Manual) Nucleated RBC % Seg Neutrophils # Man Lymphocytes # (Manual) POC ABG pH ABG pH POC ABG pCO2 POC ABG pO2 ABG pO2 ABG HCO3 ABG Base Excess ABG Hemoglobin Sodium 148 H Potassium 5.6 H Chloride 122.3 H Carbon Dioxide 20 L BUN Creatinine 0.6 L Glucose POC Glucose 65 L 112 H Lactic Acid Calcium AST 102 H ALT 65 H Alkaline Phosphatase 134 H Total Creatine Kinase CK-MB (CK-2) CK-MB (CK-2) Rel Index Troponin T Total Protein 6.1 L Albumin 1.8 L Urine WBC (Auto) Vancomycin Trough 03/11/19 03/11/19 03/11/19 11:25 15:28 18:00 WBC 1.2 L* RBC Hgb Hct MCV RDW 22.1 H Plt Count 53 L Lymph % (Auto) Lymph # Seg Neutrophils % Seg Neuts % (Manual) 78.6 H Lymphocytes % (Manual) 9.5 L Monocytes % (Manual) 9.5 H Eosinophils % (Manual) Nucleated RBC % Seg Neutrophils # Man 0.9 L Lymphocytes # (Manual) 0.1 L POC ABG pH ABG pH POC ABG pCO2 POC ABG pO2 ABG pO2 ABG HCO3 ABG Base Excess ABG Hemoglobin Sodium Potassium Chloride Carbon Dioxide BUN Creatinine Glucose POC Glucose 117 H 118 H Lactic Acid Calcium AST ALT Alkaline Phosphatase Total Creatine Kinase CK-MB (CK-2) CK-MB (CK-2) Rel Index Troponin T Total Protein Albumin Urine WBC (Auto) Vancomycin Trough 03/12/19 03/12/19 03/12/19 00:19 05:45 08:55 WBC 2.4 L RBC 3.33 L Hgb Hct MCV RDW 22.8 H Plt Count 58 L Lymph % (Auto) Lymph # Seg Neutrophils % Seg Neuts % (Manual) 93.0 H Lymphocytes % (Manual) 4.0 L Monocytes % (Manual) Eosinophils % (Manual) Nucleated RBC % 7.0 H Seg Neutrophils # Man Lymphocytes # (Manual) 0.1 L POC ABG pH ABG pH POC ABG pCO2 POC ABG pO2 ABG pO2 ABG HCO3 ABG Base Excess ABG Hemoglobin Sodium Potassium Chloride Carbon Dioxide BUN Creatinine Glucose POC Glucose 124 H 116 H Lactic Acid Calcium AST ALT Alkaline Phosphatase Total Creatine Kinase CK-MB (CK-2) CK-MB (CK-2) Rel Index Troponin T Total Protein Albumin Urine WBC (Auto) Vancomycin Trough 03/12/19 03/13/19 03/13/19 08:55 00:18 03:48 WBC 2.7 L RBC 3.06 L Hgb 9.4 L Hct 29.4 L MCV RDW 23.1 H Plt Count 62 L Lymph % (Auto) Lymph # Seg Neutrophils % Seg Neuts % (Manual) 76.0 H Lymphocytes % (Manual) Monocytes % (Manual) Eosinophils % (Manual) Nucleated RBC % 11.0 H Seg Neutrophils # Man Lymphocytes # (Manual) 0.5 L POC ABG pH ABG pH POC ABG pCO2 POC ABG pO2 ABG pO2 ABG HCO3 ABG Base Excess ABG Hemoglobin Sodium Potassium 5.6 H Chloride 114.2 H Carbon Dioxide 21 L BUN Creatinine Glucose POC Glucose 119 H Lactic Acid Calcium AST ALT Alkaline Phosphatase Total Creatine Kinase CK-MB (CK-2) CK-MB (CK-2) Rel Index Troponin T Total Protein Albumin Urine WBC (Auto) Vancomycin Trough 03/13/19 03/13/19 03/13/19 03:48 05:52 05:58 WBC RBC Hgb Hct MCV RDW Plt Count Lymph % (Auto) Lymph # Seg Neutrophils % Seg Neuts % (Manual) Lymphocytes % (Manual) Monocytes % (Manual) Eosinophils % (Manual) Nucleated RBC % Seg Neutrophils # Man Lymphocytes # (Manual) POC ABG pH ABG pH POC ABG pCO2 POC ABG pO2 ABG pO2 ABG HCO3 ABG Base Excess ABG Hemoglobin Sodium Potassium Chloride 112.7 H Carbon Dioxide 21 L BUN Creatinine Glucose 103 H POC Glucose 114 H Lactic Acid Calcium AST ALT Alkaline Phosphatase Total Creatine Kinase CK-MB (CK-2) CK-MB (CK-2) Rel Index Troponin T Total Protein Albumin Urine WBC (Auto) Vancomycin Trough 39.7 H 03/13/19 03/13/19 03/14/19 12:12 18:00 00:17 WBC RBC Hgb Hct MCV RDW Plt Count Lymph % (Auto) Lymph # Seg Neutrophils % Seg Neuts % (Manual) Lymphocytes % (Manual) Monocytes % (Manual) Eosinophils % (Manual) Nucleated RBC % Seg Neutrophils # Man Lymphocytes # (Manual) POC ABG pH ABG pH POC ABG pCO2 POC ABG pO2 ABG pO2 ABG HCO3 ABG Base Excess ABG Hemoglobin Sodium Potassium Chloride Carbon Dioxide BUN Creatinine Glucose POC Glucose 116 H 132 H 130 H Lactic Acid Calcium AST ALT Alkaline Phosphatase Total Creatine Kinase CK-MB (CK-2) CK-MB (CK-2) Rel Index Troponin T Total Protein Albumin Urine WBC (Auto) Vancomycin Trough 03/14/19 03/14/19 03/14/19 05:24 06:44 06:44 WBC 2.6 L RBC 3.00 L Hgb 9.2 L Hct 28.3 L MCV RDW 22.5 H Plt Count 44 L Lymph % (Auto) Lymph # Seg Neutrophils % Seg Neuts % (Manual) 75.0 H Lymphocytes % (Manual) Monocytes % (Manual) Eosinophils % (Manual) 5.0 H Nucleated RBC % 19.0 H Seg Neutrophils # Man Lymphocytes # (Manual) 0.4 L POC ABG pH ABG pH POC ABG pCO2 POC ABG pO2 ABG pO2 ABG HCO3 ABG Base Excess ABG Hemoglobin Sodium Potassium Chloride 110.2 H Carbon Dioxide 21 L BUN Creatinine 1.3 H Glucose POC Glucose 110 H Lactic Acid Calcium AST 144 H ALT 90 H Alkaline Phosphatase 226 H Total Creatine Kinase CK-MB (CK-2) 8.6 H CK-MB (CK-2) Rel Index 7.1 H Troponin T 0.056 H D Total Protein Albumin 2.2 L Urine WBC (Auto) Vancomycin Trough 03/14/19 03/14/19 03/14/19 09:05 11:54 12:15 WBC RBC Hgb Hct MCV RDW Plt Count Lymph % (Auto) Lymph # Seg Neutrophils % Seg Neuts % (Manual) Lymphocytes % (Manual) Monocytes % (Manual) Eosinophils % (Manual) Nucleated RBC % Seg Neutrophils # Man Lymphocytes # (Manual) POC ABG pH 7.283 L 7.458 H ABG pH POC ABG pCO2 54.9 H 32.7 L POC ABG pO2 76 L ABG pO2 ABG HCO3 ABG Base Excess ABG Hemoglobin Sodium Potassium Chloride Carbon Dioxide BUN Creatinine Glucose POC Glucose Lactic Acid 2.10 H* Calcium AST ALT Alkaline Phosphatase Total Creatine Kinase CK-MB (CK-2) CK-MB (CK-2) Rel Index Troponin T Total Protein Albumin Urine WBC (Auto) Vancomycin Trough 03/14/19 03/14/19 03/14/19 12:43 13:35 15:35 WBC RBC Hgb Hct MCV RDW Plt Count Lymph % (Auto) Lymph # Seg Neutrophils % Seg Neuts % (Manual) Lymphocytes % (Manual) Monocytes % (Manual) Eosinophils % (Manual) Nucleated RBC % Seg Neutrophils # Man Lymphocytes # (Manual) POC ABG pH ABG pH POC ABG pCO2 POC ABG pO2 ABG pO2 ABG HCO3 ABG Base Excess ABG Hemoglobin Sodium Potassium Chloride Carbon Dioxide BUN Creatinine Glucose POC Glucose 68 L Lactic Acid 2.10 H* 3.50 H* Calcium AST ALT Alkaline Phosphatase Total Creatine Kinase CK-MB (CK-2) CK-MB (CK-2) Rel Index Troponin T Total Protein Albumin Urine WBC (Auto) Vancomycin Trough 03/14/19 03/14/19 03/14/19 17:34 17:46 17:55 WBC RBC Hgb Hct MCV RDW Plt Count Lymph % (Auto) Lymph # Seg Neutrophils % Seg Neuts % (Manual) Lymphocytes % (Manual) Monocytes % (Manual) Eosinophils % (Manual) Nucleated RBC % Seg Neutrophils # Man Lymphocytes # (Manual) POC ABG pH 7.241 L 7.244 L ABG pH POC ABG pCO2 50.4 H 50.1 H POC ABG pO2 156 H ABG pO2 ABG HCO3 ABG Base Excess ABG Hemoglobin Sodium Potassium Chloride Carbon Dioxide BUN Creatinine Glucose POC Glucose 49 L Lactic Acid Calcium AST ALT Alkaline Phosphatase Total Creatine Kinase CK-MB (CK-2) CK-MB (CK-2) Rel Index Troponin T Total Protein Albumin Urine WBC (Auto) Vancomycin Trough 03/14/19 03/14/19 03/14/19 18:29 18:32 20:27 WBC RBC Hgb Hct MCV RDW Plt Count Lymph % (Auto) Lymph # Seg Neutrophils % Seg Neuts % (Manual) Lymphocytes % (Manual) Monocytes % (Manual) Eosinophils % (Manual) Nucleated RBC % Seg Neutrophils # Man Lymphocytes # (Manual) POC ABG pH ABG pH POC ABG pCO2 POC ABG pO2 ABG pO2 ABG HCO3 ABG Base Excess ABG Hemoglobin Sodium Potassium Chloride 112.6 H Carbon Dioxide 19 L BUN Creatinine 1.4 H Glucose 132 H POC Glucose 57 L 115 H Lactic Acid Calcium AST ALT Alkaline Phosphatase Total Creatine Kinase CK-MB (CK-2) CK-MB (CK-2) Rel Index Troponin T Total Protein Albumin Urine WBC (Auto) Vancomycin Trough 03/14/19 03/14/19 03/15/19 23:47 Unknown 04:00 WBC RBC 2.77 L Hgb 8.5 L Hct 27.3 L MCV 98 H RDW 23.0 H Plt Count 27 L Lymph % (Auto) Lymph # Seg Neutrophils % Seg Neuts % (Manual) 75.0 H Lymphocytes % (Manual) 1.0 L Monocytes % (Manual) Eosinophils % (Manual) Nucleated RBC % 4.0 H Seg Neutrophils # Man Lymphocytes # (Manual) 0.1 L POC ABG pH ABG pH POC ABG pCO2 POC ABG pO2 ABG pO2 ABG HCO3 ABG Base Excess ABG Hemoglobin Sodium Potassium Chloride Carbon Dioxide BUN Creatinine Glucose POC Glucose 116 H Lactic Acid 3.30 H* Calcium AST ALT Alkaline Phosphatase Total Creatine Kinase CK-MB (CK-2) CK-MB (CK-2) Rel Index Troponin T Total Protein Albumin Urine WBC (Auto) Vancomycin Trough 03/15/19 03/15/19 03/15/19 04:00 06:24 07:35 WBC RBC Hgb Hct MCV RDW Plt Count Lymph % (Auto) Lymph # Seg Neutrophils % Seg Neuts % (Manual) Lymphocytes % (Manual) Monocytes % (Manual) Eosinophils % (Manual) Nucleated RBC % Seg Neutrophils # Man Lymphocytes # (Manual) POC ABG pH 7.282 L ABG pH POC ABG pCO2 50.4 H POC ABG pO2 71 L ABG pO2 ABG HCO3 ABG Base Excess ABG Hemoglobin Sodium Potassium Chloride 112.1 H Carbon Dioxide 19 L BUN Creatinine 1.5 H Glucose 123 H POC Glucose 140 H Lactic Acid Calcium 8.2 L AST ALT Alkaline Phosphatase Total Creatine Kinase CK-MB (CK-2) CK-MB (CK-2) Rel Index Troponin T Total Protein Albumin Urine WBC (Auto) Vancomycin Trough 03/15/19 03/15/19 03/16/19 11:47 23:25 04:33 WBC RBC Hgb Hct MCV RDW Plt Count Lymph % (Auto) Lymph # Seg Neutrophils % Seg Neuts % (Manual) Lymphocytes % (Manual) Monocytes % (Manual) Eosinophils % (Manual) Nucleated RBC % Seg Neutrophils # Man Lymphocytes # (Manual) POC ABG pH ABG pH 7.304 L POC ABG pCO2 POC ABG pO2 ABG pO2 174.4 H ABG HCO3 19.2 L ABG Base Excess -6.6 L ABG Hemoglobin 8.5 L Sodium Potassium Chloride Carbon Dioxide BUN Creatinine Glucose POC Glucose 161 H 139 H Lactic Acid Calcium AST ALT Alkaline Phosphatase Total Creatine Kinase CK-MB (CK-2) CK-MB (CK-2) Rel Index Troponin T Total Protein Albumin Urine WBC (Auto) Vancomycin Trough 03/16/19 03/16/19 03/16/19 05:19 05:19 05:19 WBC RBC 2.92 L Hgb 8.9 L Hct 28.0 L MCV RDW 22.8 H Plt Count 42 L Lymph % (Auto) Lymph # Seg Neutrophils % Seg Neuts % (Manual) 84.0 H Lymphocytes % (Manual) 5.0 L Monocytes % (Manual) Eosinophils % (Manual) Nucleated RBC % Seg Neutrophils # Man 7.8 H Lymphocytes # (Manual) 0.5 L POC ABG pH ABG pH POC ABG pCO2 POC ABG pO2 ABG pO2 ABG HCO3 ABG Base Excess ABG Hemoglobin Sodium Potassium 5.2 H Chloride 114.0 H Carbon Dioxide 18 L BUN 22 H Creatinine 1.7 H Glucose 109 H POC Glucose Lactic Acid Calcium 8.0 L AST ALT Alkaline Phosphatase Total Creatine Kinase 194 H CK-MB (CK-2) CK-MB (CK-2) Rel Index Troponin T Total Protein Albumin Urine WBC (Auto) Vancomycin Trough 03/16/19 03/16/19 03/16/19 05:51 12:19 17:42 WBC RBC Hgb Hct MCV RDW Plt Count Lymph % (Auto) Lymph # Seg Neutrophils % Seg Neuts % (Manual) Lymphocytes % (Manual) Monocytes % (Manual) Eosinophils % (Manual) Nucleated RBC % Seg Neutrophils # Man Lymphocytes # (Manual) POC ABG pH ABG pH POC ABG pCO2 POC ABG pO2 ABG pO2 ABG HCO3 ABG Base Excess ABG Hemoglobin Sodium Potassium Chloride Carbon Dioxide BUN Creatinine Glucose POC Glucose 123 H 134 H 130 H Lactic Acid Calcium AST ALT Alkaline Phosphatase Total Creatine Kinase CK-MB (CK-2) CK-MB (CK-2) Rel Index Troponin T Total Protein Albumin Urine WBC (Auto) Vancomycin Trough 03/17/19 03/17/19 03/17/19 00:46 04:45 04:45 WBC RBC 2.42 L Hgb 7.5 L Hct 23.4 L MCV RDW 22.2 H Plt Count 37 L Lymph % (Auto) 6.2 L Lymph # 0.5 L Seg Neutrophils % 84.0 H Seg Neuts % (Manual) Lymphocytes % (Manual) Monocytes % (Manual) Eosinophils % (Manual) Nucleated RBC % Seg Neutrophils # Man Lymphocytes # (Manual) POC ABG pH ABG pH POC ABG pCO2 POC ABG pO2 ABG pO2 ABG HCO3 ABG Base Excess ABG Hemoglobin Sodium Potassium Chloride 115.4 H Carbon Dioxide 16 L BUN 27 H Creatinine 1.8 H Glucose 109 H POC Glucose 115 H Lactic Acid Calcium 7.9 L AST ALT Alkaline Phosphatase Total Creatine Kinase CK-MB (CK-2) CK-MB (CK-2) Rel Index Troponin T Total Protein Albumin Urine WBC (Auto) Vancomycin Trough 03/17/19 03/17/19 05:00 06:05 WBC RBC Hgb Hct MCV RDW Plt Count Lymph % (Auto) Lymph # Seg Neutrophils % Seg Neuts % (Manual) Lymphocytes % (Manual) Monocytes % (Manual) Eosinophils % (Manual) Nucleated RBC % Seg Neutrophils # Man Lymphocytes # (Manual) POC ABG pH ABG pH 7.238 L POC ABG pCO2 POC ABG pO2 ABG pO2 114.7 H ABG HCO3 17.9 L ABG Base Excess -8.8 L ABG Hemoglobin 7.3 L Sodium Potassium Chloride Carbon Dioxide BUN Creatinine Glucose POC Glucose 124 H Lactic Acid Calcium AST ALT Alkaline Phosphatase Total Creatine Kinase CK-MB (CK-2) CK-MB (CK-2) Rel Index Troponin T Total Protein Albumin Urine WBC (Auto) Vancomycin Trough Chest x-ray: image reviewed (rotated to the right; RIJ CVL tip in distal SVC) Allied health notes reviewed: RT
[2019-03-17] MEDS: FLUTICASONE PROPIONATE NASAL SPRAY 16 GM NS SCH (11:00)
[2019-03-17] MEDS: FAMOTIDINE 20 MG TAB PO SCH (11:00)
[2019-03-17] MEDS: chlordiazePOXIDE 25 MG CAP PO SCH (11:01)
[2019-03-17] MEDS: THIAMINE 100 MG TAB PO SCH (11:01)
[2019-03-17] MEDS: FOLIC ACID 1 MG TAB PO SCH (11:01)
[2019-03-17] MEDS ORDERED: DEXTROSE 5% IN WATER 1,000 ML with SODIUM BICARBONATE 150 MEQ IV SCH (12:00)
[2019-03-17 12:58] LABS: Iron 81 ug/dL (37-170); Total Iron Binding Capacity 127 mcg/dL (250-450)
[2019-03-17] MEDS ORDERED: SODIUM CHLORIDE 0.9% 500 ML 500 ML ONE (13:04)
--- NOTE | 2019-03-17 16:37 | Progress Note ---
Assessment and Plan Cultures: 03/10 UCx - VRE faecim 03/10 BCx - NGTD 03/14 BCX - NGTD A/P: 68 yo F PMHx hepatitis C, Dm2, many other comorbidities admitted with altered mental status, possible secondary to VRE UTI 1. VRE UTI - given worsening thrombocytopenia would treat with daptomycin. Would also ensure steen catheter is changed prior to cessation of antibiotics. OK to stop vancomycin and pip-david. 2. Hepatitis C 3. DM2 - tight glycemic control for wound healing 4. Hypoxic respiratory failure secondary to aspiration pneumonia - Continue pip- david for now, expect 5-7 day course pending clinical improvement. Recs: - start daptomycin 8mg/kg q24h - plan for 5 day course stop date 03/19 - continue pip-david 4.5g q6h. expect 5-7 day course pending improvement. Thank you for the consult, we will continue to follow. Berta Stacy MD [facility] ([facility]) M: [phone] O: [phone] F: [phone] Subjective Date of service: 03/17/19 Principal diagnosis: Severe sepsis with shock; Ac. hypoxemic resp failure; cardiac arrest; PNA Interval history: remains intubated and sedated Objective - Exam Narrative Exam: Constitutional: intubated, sedated Head, Ears, Nose: Normocephalic, atraumatic. External ears, nose normal Eyes: Conjunctivae/corneas clear. No icterus. No ptosis. Neck: Supple, no meningeal signs Oral: dentition fair, no thrush Cardiovascular: S1, S2 normal. Respiratory: Good air entry, clear to auscultation bilaterally GI: Soft, non-tender; bowel sounds normal. No peritoneal signs. Musculoskeletal: No pedal edema, no cyanosis. Skin: No rash or abscess Hem/Lymphatic: No palpable cervical or supraclavicular nodes. No lymphangitis Psych: Sedated Neurological: Intubated, sedated - Constitutional Vitals: Vital Signs Temp Pulse Resp BP Pulse Ox 98.1 F 87 24 115/72 100 03/17/19 08:00 03/17/19 15:00 03/17/19 14:07 03/17/19 15:00 03/17/19 15:00 Temperature -Last 24 Hours Temperature 98.1 F Temperature 99.0 F Temperature 97.8 F Temperature 98.6 F - Labs CBC & Chem 7: 03/17/19 04:45 03/17/19 04:45 Labs: Abnormal lab results 03/16/19 03/16/19 03/17/19 Range/Units 12: 17:42 00:46 RBC (3.65-5.03) M/mm3 Hgb (10.1-14.3) gm/dl Hct (30.3-42.9) % RDW (13.2-15.2) % Plt Count (140-440) K/mm3 Lymph % (Auto) (13.4-35.0) % Lymph # (1.2-5.4) K/mm3 Seg Neutrophils % (40.0-70.0) % ABG pH (7.350-7.450) pH Units ABG pO2 (80.0-90.0) mm Hg ABG HCO3 (20.0-26.0) mmol/L ABG Base Excess (-2.0-3.0) mmol/L ABG Hemoglobin (12.0-16.0) gm/dl Chloride (98-107) mmol/L Carbon Dioxide (22-30) mmol/L BUN (7-17) mg/dL Creatinine (0.7-1.2) mg/dL Glucose (65-100) mg/dL POC Glucose 134 H 130 H 115 H (70-105) Calcium (8.4-10.2) mg/dL TIBC (250-450) mcg/dL Ferritin (13.0-400.0) ng/mL 03/17/19 03/17/19 03/17/19 Range/Units 04:45 04:45 05:00 RBC 2.42 L (3.65-5.03) M/mm3 Hgb 7.5 L (10.1-14.3) gm/dl Hct 23.4 L (30.3-42.9) % RDW 22.2 H (13.2-15.2) % Plt Count 37 L (140-440) K/mm3 Lymph % (Auto) 6.2 L (13.4-35.0) % Lymph # 0.5 L (1.2-5.4) K/mm3 Seg Neutrophils % 84.0 H (40.0-70.0) % ABG pH 7.238 L (7.350-7.450) pH Units ABG pO2 114.7 H (80.0-90.0) mm Hg ABG HCO3 17.9 L (20.0-26.0) mmol/L ABG Base Excess -8.8 L (-2.0-3.0) mmol/L ABG Hemoglobin 7.3 L (12.0-16.0) gm/dl Chloride 115.4 H (98-107) mmol/L Carbon Dioxide 16 L (22-30) mmol/L BUN 27 H (7-17) mg/dL Creatinine 1.8 H (0.7-1.2) mg/dL Glucose 109 H (65-100) mg/dL POC Glucose (70-105) Calcium 7.9 L (8.4-10.2) mg/dL TIBC (250-450) mcg/dL Ferritin (13.0-400.0) ng/mL 03/17/19 03/17/19 03/17/19 Range/Units 06:05 11:15 11:15 RBC (3.65-5.03) M/mm3 Hgb (10.1-14.3) gm/dl Hct (30.3-42.9) % RDW (13.2-15.2) % Plt Count (140-440) K/mm3 Lymph % (Auto) (13.4-35.0) % Lymph # (1.2-5.4) K/mm3 Seg Neutrophils % (40.0-70.0) % ABG pH (7.350-7.450) pH Units ABG pO2 (80.0-90.0) mm Hg ABG HCO3 (20.0-26.0) mmol/L ABG Base Excess (-2.0-3.0) mmol/L ABG Hemoglobin (12.0-16.0) gm/dl Chloride (98-107) mmol/L Carbon Dioxide (22-30) mmol/L BUN (7-17) mg/dL Creatinine (0.7-1.2) mg/dL Glucose (65-100) mg/dL POC Glucose 124 H (70-105) Calcium (8.4-10.2) mg/dL TIBC 127 L (250-450) mcg/dL Ferritin 512.4 H (13.0-400.0) ng/mL 03/17/19 Range/Units 12:06 RBC (3.65-5.03) M/mm3 Hgb (10.1-14.3) gm/dl Hct (30.3-42.9) % RDW (13.2-15.2) % Plt Count (140-440) K/mm3 Lymph % (Auto) (13.4-35.0) % Lymph # (1.2-5.4) K/mm3 Seg Neutrophils % (40.0-70.0) % ABG pH (7.350-7.450) pH Units ABG pO2 (80.0-90.0) mm Hg ABG HCO3 (20.0-26.0) mmol/L ABG Base Excess (-2.0-3.0) mmol/L ABG Hemoglobin (12.0-16.0) gm/dl Chloride (98-107) mmol/L Carbon Dioxide (22-30) mmol/L BUN (7-17) mg/dL Creatinine (0.7-1.2) mg/dL Glucose (65-100) mg/dL POC Glucose 133 H (70-105) Calcium (8.4-10.2) mg/dL TIBC (250-450) mcg/dL Ferritin (13.0-400.0) ng/mL
[2019-03-17] MEDS ORDERED: SODIUM CHLORIDE 0.9% 500 ML 500 ML IV SCH (20:00)
[2019-03-17] MEDS ORDERED: SODIUM BICARBONATE 150 MEQ in DEXTROSE 5% IN WATER 1,000 ML IV ONE (23:00)
[2019-03-18] MEDS: INSULIN LISPRO 100 UNIT/ML SUB-Q SCH ×4 (00:02→17:56)
[2019-03-18] MEDS: VASOPRESSIN 20 UNIT in SODIUM CHLORIDE 0.9% 100 ML IV SCH (01:15)
[2019-03-18] MEDS: IPRATROPIUM/ALBUTEROL SULFATE 3 ML AMPUL.NEB IH SCH ×4 (02:59→20:22)
--- NOTE | 2019-03-18 04:02 | XRay Report ---
CHEST 1 VIEW [id number] INDICATION / CLINICAL INFORMATION: follow up respiratory failure. COMPARISON: 03/17/2019 FINDINGS: SUPPORT DEVICES: Stable HEART / MEDIASTINUM: Stable LUNGS / PLEURA: Congestive changes and mild pulmonary edema continue. Left perihilar infiltrate/edema is unchanged. No pneumothorax. ADDITIONAL FINDINGS: No significant additional findings. IMPRESSION: No significant changes Signer Name: Derrek Baker MD Signed: 03/18/2019 3:57 AM Workstation Name: [id number]
[2019-03-18 04:40] LABS: ABG HCO3 21.1 mmol/L (20.0-26.0); ABG Methemoglobin 0.4 % (0.0-1.5); ABG Oxygen Saturation 98.2 % (95.0-99.0); ABG PCO2 33.2 mm Hg; ABG PH 7.422 pH Units (7.350-7.450); ABG PO2 113.7 mm Hg (80.0-90.0)
[2019-03-18] MEDS: PIPERACIL/TAZOBACTA 4.5/NS 100 4.5 GM/100 ML VIAL IV SCH ×3 (05:51→23:00)
[2019-03-18 06:24] LABS: Calcium 7.6 mg/dL (8.4-10.2)
--- NOTE | 2019-03-18 06:46 | Hem/Onc Progress Note ---
Assessment and Plan 1. h/o Leukopenia and the patient has a history of liver disease and alcohol usage. These may have a role. Thrombocytopenia may have a similar reason. Deficiency investigations. In January, B12 was 1400, folate 13. 2. Encephalopathy, being treated for sepsis. 3. History of electrolyte imbalance. 4. History of hypertension. 5. History of chronic obstructive pulmonary disease. 6. AST, ALT abnormality. 7. The patient was placed on reverse isolation. I will follow the patient during inpatient stay. wbc better - but pt on vent b12 - folate normal - will follow plt low - may be sec to infection/meds/antibiotics - pt was on vanco - zosyn - now daptomycin ID following pt cbc today - d/w RN - plt still low but no bleeding b12- folate - iron ferritin WNL - Patient Problems (1) Leukopenia Current Visit: Yes Status: Acute Qualifiers: Leukopenia type: unspecified Qualified Code(s): D72.819 - Decreased white blood cell count, unspecified Subjective Date of service: 03/18/19 Principal diagnosis: low plt Interval history: still on vent Objective - Exam Narrative Exam: Pain - on vent General appearance - intubated Performance status - complete dependence Eyes - no icterus, ENT - no bleeding LNs cervical not palpable Neck - no LN Respiratory Normal Breath sounds - CTA anteriorly CVS S1 S2 + Extremities edema+ General GI Soft Rectal deferred female - deferred Skin warm Musculoskeletal on vent Neurologically intubated - Constitutional Vitals: Last Vital Signs Temp 98.5 F 03/18/19 04:00 Pulse 67 03/18/19 06:15 Resp 19 03/18/19 06:15 BP 92/55 03/18/19 06:15 Pulse Ox 100 03/18/19 06:15 - Labs Lab Results: Laboratory Results - last 24 hr 03/17/19 03/17/19 03/17/19 11:15 11:15 12:06 ABG pH ABG pCO2 ABG pO2 ABG HCO3 ABG O2 Saturation ABG O2 Content ABG Base Excess ABG Hemoglobin ABG Carboxyhemoglobin ABG Methemoglobin Oxyhemoglobin FiO2 Sodium Potassium Chloride Carbon Dioxide Anion Gap BUN Creatinine Estimated GFR BUN/Creatinine Ratio Glucose POC Glucose 133 H Calcium Iron 81 TIBC 127 L Ferritin 512.4 H 03/17/19 03/17/19 03/18/19 18:27 23:30 04:00 ABG pH 7.422 ABG pCO2 33.2 ABG pO2 113.7 H ABG HCO3 21.1 ABG O2 Saturation 98.2 ABG O2 Content 9.7 ABG Base Excess -3.0 L ABG Hemoglobin 7.0 L ABG Carboxyhemoglobin 2.2 ABG Methemoglobin 0.4 Oxyhemoglobin 95.7 FiO2 25 Sodium Potassium Chloride Carbon Dioxide Anion Gap BUN Creatinine Estimated GFR BUN/Creatinine Ratio Glucose POC Glucose 158 H 143 H Calcium Iron TIBC Ferritin 03/18/19 03/18/19 05:48 05:50 ABG pH ABG pCO2 ABG pO2 ABG HCO3 ABG O2 Saturation ABG O2 Content ABG Base Excess ABG Hemoglobin ABG Carboxyhemoglobin ABG Methemoglobin Oxyhemoglobin FiO2 Sodium 141 Potassium 3.6 Chloride 109.9 H Carbon Dioxide 22 Anion Gap 13 BUN 28 H Creatinine 1.5 H Estimated GFR 42 BUN/Creatinine Ratio 19 Glucose 128 H POC Glucose 118 H Calcium 7.6 L Iron TIBC Ferritin Medications & Allergies - Medications Allergies/Adverse Reactions: Allergies No Known Allergies Allergy (Verified 01/06/17 23:38) Per son Home Medications: Home Medications Medication Instructions Recorded Confirmed Last Taken Type Folic Acid [Folvite] 1 mg PO QDAY #30 tablet 08/12/18 03/10/19 03/09/19 Rx Haloperidol [Haldol] 0.5 mg PO Q6H PRN #30 tablet 08/12/18 03/10/19 03/10/19 Rx Lactulose [Cephulac] 20 gm PO Q12H #1 bottle 08/12/18 03/10/19 03/09/19 Rx Rifaximin [Xifaxan] 550 mg PO BID #60 tablet 08/12/18 03/10/19 03/09/19 Rx Thiamine [Vitamin B-1] 100 mg PO QDAY #30 tablet 08/12/18 03/10/19 03/09/19 Rx amLODIPine 5 mg PO QDAY #30 tablet 08/12/18 03/10/19 03/09/19 Rx chlordiazePOXIDE [Librium] 25 mg PO DAILY #3 capsule 08/12/18 03/10/19 03/09/19 Rx ALBUTEROL NEB's [Proventil] 2.5 mg IH TID PRN 02/06/19 03/10/19 03/09/19 History Acetaminophen [Tylenol] 650 mg PO Q6HR PRN 02/06/19 03/10/19 03/09/19 History Fluticasone [Flonase] 1 spray NS QDAY 02/06/19 03/10/19 03/09/19 History Ipratropium/Albuterol Sulfate 1 spray IH QID 02/06/19 03/10/19 03/09/19 History [Combivent Respimat] Melatonin [Melatonin 10MG CAP] 10 mg PO QHS 02/06/19 03/10/19 03/09/19 History Active Medications: Generic Name Dose Route Start Last Admin Trade Name Freq PRN Reason Stop Dose Admin Acetaminophen 650 mg 03/10/19 17:46 Tylenol PO Q4H PRN Pain MILD(1-3)/Fever >100.5/GUERRERO Albuterol 2.5 mg 03/11/19 03:52 Proventil IH TID PRN Wheezing Albuterol/Ipratropium 1 ampul 03/11/19 08:00 03/18/19 02:59 Duoneb *Not For Prn Use* IH 1 ampul Q6HRT CONNIE Administration Lipase/Protease/Amylase 1 each 03/14/19 13:25 Pancreazmarti Sahni 10,500 Unit FEEDTUBE PRN PRN For Clogged Feeding Tube Chlordiazepoxide HCl 25 mg 03/11/19 10:00 03/17/19 11:01 Librium PO 25 mg DAILY CONNIE Administration Dextrose 50 ml 03/10/19 22:27 03/14/19 17:55 D50w (25gm) Syringe IV 50 ml Q30MIN PRN Administration Hypoglycemia Famotidine 20 mg 03/15/19 10:00 03/17/19 11:00 Pepcid PO 20 mg DAILY CONNIE Administration Fluticasone Propionate 50 mcg 03/11/19 10:00 03/17/19 11:00 Flonase NS 50 mcg QDAY CONNIE Administration Folic Acid 1 mg 03/11/19 10:00 03/17/19 11:01 Folvite PO 1 mg QDAY CONNIE Administration Haloperidol 0.5 mg 03/11/19 03:52 03/12/19 09:32 Haldol PO 0.5 mg Q6H PRN Administration Agitation Hydrophilic Ointment 1 applic 03/14/19 06:51 Vaseline Lip Therapy TP Q2HR PRN Dry Lips Propofol 1,000 mg in 100 mls @ 2.587 mls/hr 03/14/19 07:00 03/14/19 12:00 Diprivan 10 Mg/Ml IV 0 mcg/kg/min TITR CONNIE 0 mls/hr Titration Protocol 5 MCG/KG/MIN Piperacillin Sod/Tazobactam Sod 4.5 gm in 100 mls @ 200 mls/hr 03/14/19 08:00 03/18/19 05:51 Zosyn/Ns 4.5gm/100ml IV 200 mls/hr Q6HR CONNIE Administration Protocol Fentanyl Citrate 2,000 mcg in 100 mls @ 4.312 mls/hr 03/14/19 11:00 03/18/19 05:00 Fentanyl Drip Premix IV 0 mcg/kg/hr TITR CONNIE 0 mls/hr Titration Protocol 1 MCG/KG/HR Vasopressin 20 unit/ Sodium 101 mls @ 9.09 mls/hr 03/14/19 14:00 03/18/19 01:15 Chloride IV 0.03 units/min TITR CONNIE 9.09 mls/hr Administration Protocol 0.03 UNITS/MIN Dopamine HCl/Dextrose 800 mg in 250 mls @ 3.234 mls/hr 03/14/19 22:00 03/17/19 20:31 Intropin Drip 800 Mg/D5w 250 Ml IV 2 mcg/kg/min TITR CONNIE 3.234 mls/hr Titration Protocol 2 MCG/KG/MIN Daptomycin 700 mg/ Sodium 100 mls @ 200 mls/hr 03/16/19 10:00 03/16/19 11:14 Chloride IV 200 mls/hr Q48HR CONNIE Administration Protocol Sodium Chloride 500 mls @ 15 mls/hr 03/17/19 20:00 Nacl 0.9% 500 Ml IV PRN CONNIE Sodium Bicarbonate 150 meq/ 1,150 mls @ 125 mls/hr 03/17/19 23:00 03/17/19 22:57 Dextrose IV 03/18/19 08:11 125 mls/hr DIRECT ONE Administration Insulin Human Lispro 0 unit 03/11/19 00:00 03/18/19 05:52 Humalog SUB-Q Not Given Q6HR CONNIE Protocol Morphine Sulfate 2 mg 03/10/19 17:56 03/15/19 02:12 Morphine IV 2 mg Q4H PRN Administration Pain, Moderate (4-6) Multi-Ingred Cream/Lotion/Oil/Oint 1 applic 03/14/19 06:51 Artificial Tears Ophth Oint OU Q4HR PRN Dry Eye(s) Ondansetron HCl 4 mg 03/10/19 17:46 03/11/19 05:04 Zofran IV 4 mg Q8H PRN Administration Nausea And Vomiting Rifaximin 550 mg 03/11/19 10:00 03/17/19 22:47 Xifaxan PO 550 mg BID CONNIE Administration Simple Syrup 15 ml 03/14/19 13:25 Simple Syrup FEEDTUBE PRN PRN Hypoglycemia Simple Syrup 30 ml 03/14/19 13:25 Simple Syrup FEEDTUBE PRN PRN Hypoglycemia Sodium Bicarbonate 325 mg 03/14/19 13:25 Sodium Bicarbonate FEEDTUBE PRN PRN For Clogged Feeding Tube Sodium Chloride 10 ml 03/10/19 22:00 03/17/19 22:47 Sodium Chloride Flush Syringe 10 Ml IV 10 ml BID CONNIE Administration Sodium Chloride 10 ml 03/10/19 17:46 03/13/19 22:50 Sodium Chloride Flush Syringe 10 Ml IV 10 ml PRN PRN Administration LINE FLUSH Thiamine HCl 100 mg 03/11/19 10:00 03/17/19 11:01 Vitamin B-1 PO 100 mg QDAY CONNIE Administration
[2019-03-18 07:32] LABS: Mean Corpuscular HGB Conc 32 % (30-34); Mean Corpuscular Volume 95 fl (79-97); Red Blood Count 2.31 M/mm3 (3.65-5.03)
[2019-03-18 07:37] LABS: Platelet Count 45 K/mm3 (140-440); Red Cell Distribution Width 22.2 % (13.2-15.2)
[2019-03-18 08:50] LABS: Basophils % (Manual) 0 % (0.0-1.8); Total Cells Counted 100
[2019-03-18 08:51] LABS: Anisocytosis 1+; Macrocytosis Rare
[2019-03-18 08:52] LABS: Platelet Estimate Consistent w Auto; Target Cells Few
--- NOTE | 2019-03-18 10:50 | Progress Note ---
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 ID consult appreciated KERRI is due to ATN and vasomotor nephropathy -monitor cr level, stable and improved VRE UTI, septic shock, sepsis POA abx per ID , off pressors since 03/17 thrombocytopenia likely 2/2 sepsis, stable Acute Metabolic encephalopathy with agitation - Probably due to the acute infection - head CT scan neg x 2 Acute on chronic Pancytopenia - continue to monitor levels - Oncology consulted Hypernatremia - probably 2/2 dehydration - improved on IV D5W Hyperkalemia - s/p kayexalate, resolved Hypoglycemia -On hypoglycemic protocol H/o CLD -Continue lactulose and rifaximin Nutrition Continue tube feeding DVT prophylaxis - On SCDs due to thrombocytopenia Disposition: Prognosis is guarded/poor Critical time spent: 35 mins History Interval history: Intubated and not sedated, , no vomiting, no fevers, no agitation, no seizures Hospitalist Physical - Physical exam Narrative exam: General.: No distress, intubated HEENT: Moist mucous membranes, extraocular muscles intact, no lymphadenopathy Neck: supple Cardiac: S1-S2 heard Lungs: clear to auscultation bilaterally Abdomen: soft , nontender, nondistended, bowel sounds positive Extremities: no edema clubbing or cyanosis Skin: no rash or lesions Neurologic: Intubated, not sedated. Minimally responsive. Grimaces to painful stimuli, does not open eyes, does not turn to voice, but squeezes her face to loud noise Psych: Intubated - Constitutional Vitals: Temp Pulse Resp BP Pulse Ox 97.3 F L 72 16 100/68 100 03/18/19 08:00 03/18/19 09:45 03/18/19 09:45 03/18/19 09:45 03/18/19 09:45 General appearance: Present: no acute distress, other (mildly agitated) Results - Labs CBC & Chem 7: 03/18/19 05:45 03/18/19 05:48 Labs: Laboratory Last Values WBC 6.8 K/mm3 (4.5-11.0) 03/18/19 05:45 RBC 2.31 M/mm3 (3.65-5.03) L 03/18/19 05:45 Hgb 7.0 gm/dl (10.1-14.3) L 03/18/19 05:45 Hct 22.0 % (30.3-42.9) L 03/18/19 05:45 MCV 95 fl (79-97) 03/18/19 05:45 MCH 31 pg (28-32) 03/18/19 05:45 MCHC 32 % (30-34) 03/18/19 05:45 RDW 22.2 % (13.2-15.2) H 03/18/19 05:45 Plt Count 45 K/mm3 (140-440) L 03/18/19 05:45 Lymph % (Auto) 6.2 % (13.4-35.0) L 03/17/19 04:45 [place] % (Auto) 6.4 % (0.0-7.3) 03/17/19 04:45 Eos % (Auto) 3.2 % (0.0-4.3) 03/17/19 04:45 Baso % (Auto) 0.2 % (0.0-1.8) 03/17/19 04:45 Lymph # 0.5 K/mm3 (1.2-5.4) L 03/17/19 04:45 [place] # 0.6 K/mm3 (0.0-0.8) 03/17/19 04:45 Eos # 0.3 K/mm3 (0.0-0.4) 03/17/19 04:45 Baso # 0.0 K/mm3 (0.0-0.1) 03/17/19 04:45 Add Manual Diff Complete 03/18/19 05:45 Total Counted 100 03/18/19 05:45 Seg Neutrophils % 84.0 % (40.0-70.0) H 03/17/19 04:45 Seg Neuts % (Manual) 82.0 % (40.0-70.0) H 03/18/19 05:45 Band Neutrophils % 0 % 03/18/19 05:45 Lymphocytes % (Manual) 12.0 % (13.4-35.0) L 03/18/19 05:45 Reactive Lymphs % (Man) 0 % 03/18/19 05:45 Monocytes % (Manual) 1.0 % (0.0-7.3) 03/18/19 05:45 Eosinophils % (Manual) 5.0 % (0.0-4.3) H 03/18/19 05:45 Basophils % (Manual) 0 % (0.0-1.8) 03/18/19 05:45 Metamyelocytes % 0 % 03/18/19 05:45 Myelocytes % 0 % 03/18/19 05:45 Promyelocytes % 0 % 03/18/19 05:45 Blast Cells % 0 % 03/18/19 05:45 Nucleated RBC % 1.0 % (0.0-0.9) H 03/18/19 05:45 Seg Neutrophils # 7.2 K/mm3 (1.8-7.7) 03/17/19 04:45 Seg Neutrophils # Man 5.6 K/mm3 (1.8-7.7) 03/18/19 05:45 Band Neutrophils # 0.0 K/mm3 03/18/19 05:45 Lymphocytes # (Manual) 0.8 K/mm3 (1.2-5.4) L 03/18/19 05:45 Abs React Lymphs (Man) 0.0 K/mm3 03/18/19 05:45 Monocytes # (Manual) 0.1 K/mm3 (0.0-0.8) 03/18/19 05:45 Eosinophils # (Manual) 0.3 K/mm3 (0.0-0.4) 03/18/19 05:45 Basophils # (Manual) 0.0 K/mm3 (0.0-0.1) 03/18/19 05:45 Metamyelocytes # 0.0 K/mm3 03/18/19 05:45 Myelocytes # 0.0 K/mm3 03/18/19 05:45 Promyelocytes # 0.0 K/mm3 03/18/19 05:45 Blast Cells # 0.0 K/mm3 03/18/19 05:45 WBC Morphology Not Reportable 03/16/19 05:19 Hypersegmented Neuts Not Reportable 03/18/19 05:45 Hyposegmented Neuts Not Reportable 03/18/19 05:45 Hypogranular Neuts Not Reportable 03/18/19 05:45 Smudge Cells Not Reportable 03/18/19 05:45 Toxic Granulation Not Reportable 03/18/19 05:45 Toxic Vacuolation Not Reportable 03/18/19 05:45 Dohle Bodies Not Reportable 03/18/19 05:45 Pelger-Huet Anomaly Not Reportable 03/18/19 05:45 Sheila Rods Not Reportable 03/18/19 05:45 Platelet Estimate Consistent w auto 03/18/19 05:45 Clumped Platelets Not Reportable 03/18/19 05:45 Plt Clumps, EDTA Not Reportable 03/18/19 05:45 Large Platelets Not Reportable 03/18/19 05:45 Giant Platelets Not Reportable 03/18/19 05:45 Platelet Satelliting Not Reportable 03/18/19 05:45 Plt Morphology Comment Not Reportable 03/18/19 05:45 RBC Morphology Not Reportable 03/18/19 05:45 Dimorphic RBCs Not Reportable 03/18/19 05:45 Polychromasia Not Reportable 03/18/19 05:45 Hypochromasia Not Reportable 03/18/19 05:45 Poikilocytosis Not Reportable 03/18/19 05:45 Anisocytosis 1+ 03/18/19 05:45 Microcytosis Rare 03/18/19 05:45 Macrocytosis Rare 03/18/19 05:45 Spherocytes Not Reportable 03/18/19 05:45 Pappenheimer Bodies Not Reportable 03/18/19 05:45 Sickle Cells Not Reportable 03/18/19 05:45 Target Cells Few 03/18/19 05:45 Tear Drop Cells Not Reportable 03/18/19 05:45 Ovalocytes Not Reportable 03/18/19 05:45 Helmet Cells Not Reportable 03/18/19 05:45 Ann-Chidester Bodies Not Reportable 03/18/19 05:45 [place] Rings Not Reportable 03/18/19 05:45 Aldair Cells Not Reportable 03/18/19 05:45 Bite Cells Not Reportable 03/18/19 05:45 Crenated Cell Not Reportable 03/18/19 05:45 Elliptocytes Not Reportable 03/18/19 05:45 Acanthocytes (Spur) Not Reportable 03/18/19 05:45 Rouleaux Not Reportable 03/18/19 05:45 Hemoglobin C Crystals Not Reportable 03/18/19 05:45 Schistocytes Not Reportable 03/18/19 05:45 Malaria parasites Not Reportable 03/18/19 05:45 [place] Bodies Not Reportable 03/18/19 05:45 Hem Pathologist Commnt Sent to pathology 03/18/19 05:45 POC ABG pH 7.282 (7.35-7.45) L 03/15/19 07:35 ABG pH 7.422 pH Units (7.350-7.450) 03/18/19 04:00 POC ABG pCO2 50.4 (35-45) H 03/15/19 07:35 ABG pCO2 33.2 mm Hg 03/18/19 04:00 POC ABG pO2 71 (80-105) L 03/15/19 07:35 ABG pO2 113.7 mm Hg (80.0-90.0) H 03/18/19 04:00 POC ABG HCO3 23.8 (22-26 mml/L) 03/15/19 07:35 ABG HCO3 21.1 mmol/L (20.0-26.0) 03/18/19 04:00 POC ABG Total CO2 25 (23-27mmol/L) 03/15/19 07:35 POC ABG O2 Sat 92 03/15/19 07:35 ABG O2 Saturation 98.2 % (95.0-99.0) 03/18/19 04:00 ABG O2 Content 9.7 (0.0-44) 03/18/19 04:00 POC ABG Base Excess -3 ((-2) - (+3)mmol/L) 03/15/19 07:35 ABG Base Excess -3.0 mmol/L (-2.0-3.0) L 03/18/19 04:00 ABG Hemoglobin 7.0 gm/dl (12.0-16.0) L 03/18/19 04:00 ABG Carboxyhemoglobin 2.2 % (0.0-5.0) 03/18/19 04:00 ABG Methemoglobin 0.4 % (0.0-1.5) 03/18/19 04:00 Oxyhemoglobin 95.7 % (95.0-99.0) 03/18/19 04:00 FiO2 25 % 03/18/19 04:00 Sodium 141 mmol/L (137-145) 03/18/19 05:48 Potassium 3.6 mmol/L (3.6-5.0) 03/18/19 05:48 Chloride 109.9 mmol/L (98-107) H 03/18/19 05:48 Carbon Dioxide 22 mmol/L (22-30) 03/18/19 05:48 Anion Gap 13 mmol/L 03/18/19 05:48 BUN 28 mg/dL (7-17) H 03/18/19 05:48 Creatinine 1.5 mg/dL (0.7-1.2) H 03/18/19 05:48 Estimated GFR 42 ml/min 03/18/19 05:48 BUN/Creatinine Ratio 19 % 03/18/19 05:48 Glucose 128 mg/dL (65-100) H 03/18/19 05:48 POC Glucose 118 (70-105) H 03/18/19 05:50 Hemoglobin A1c 4.6 % (4-6) 03/10/19 13:16 Lactic Acid 1.50 mmol/L (0.7-2.0) 03/15/19 13:15 Calcium 7.6 mg/dL (8.4-10.2) L 03/18/19 05:48 Iron 81 ug/dL (37-170) 03/17/19 11:15 TIBC 127 mcg/dL (250-450) L 03/17/19 11:15 Ferritin 512.4 ng/mL (13.0-400.0) H 03/17/19 11:15 Total Bilirubin 0.50 mg/dL (0.1-1.2) 03/14/19 06:44 AST 144 units/L (5-40) H 03/14/19 06:44 ALT 90 units/L (7-56) H 03/14/19 06:44 Alkaline Phosphatase 226 units/L (35-129) H 03/14/19 06:44 Ammonia 54.0 umol/L (25-60) 03/11/19 07:29 Total Creatine Kinase 194 units/L (30-135) H 03/16/19 05:19 CK-MB (CK-2) 8.6 ng/mL (0.0-4.0) H 03/14/19 06:44 CK-MB (CK-2) Rel Index 7.1 (0-4) H 03/14/19 06:44 Troponin T 0.056 ng/mL (0.00-0.029) H D 03/14/19 06:44 Total Protein 6.7 g/dL (6.3-8.2) 03/14/19 06:44 Albumin 2.2 g/dL (3.9-5) L 03/14/19 06:44 Albumin/Globulin Ratio 0.5 % 03/14/19 06:44 Triglycerides 62 mg/dL (2-149) 03/14/19 06:44 Cholesterol 133 mg/dL (50-199) 03/14/19 06:44 LDL Cholesterol Direct 89 mg/dL (50-130) 03/14/19 06:44 HDL Cholesterol 43 mg/dL (40-59) 03/14/19 06:44 Cholesterol/HDL Ratio 3.09 % 03/14/19 06:44 Urine Color Straw (Yellow) 03/10/19 14:38 Urine Turbidity Clear (Clear) 03/10/19 14:38 Urine pH 7.0 (5.0-7.0) 03/10/19 14:38 Ur Specific [place] 1.009 (1.003-1.030) 03/10/19 14:38 Urine Protein <15 mg/dl mg/dL (Negative) 03/10/19 14:38 Urine Glucose (UA) Neg mg/dL (Negative) 03/10/19 14:38 Urine Ketones Neg mg/dL (Negative) 03/10/19 14:38 Urine Blood Neg (Negative) 03/10/19 14:38 Urine Nitrite Neg (Negative) 03/10/19 14:38 Urine Bilirubin Neg (Negative) 03/10/19 14:38 Urine Urobilinogen < 2.0 mg/dL (<2.0) 03/10/19 14:38 Ur Leukocyte Esterase Sm (Negative) 03/10/19 14:38 Urine WBC (Auto) 9.0 /HPF (0.0-6.0) H 03/10/19 14:38 Urine RBC (Auto) 2.0 /HPF (0.0-6.0) 03/10/19 14:38 U Epithel Cells (Auto) 1.0 /HPF (0-13.0) 03/10/19 14:38 Urine Bacteria (Auto) 2+ /HPF (Negative) 03/10/19 14:38 Urine Mucus Few /HPF 03/10/19 14:38 Vancomycin Trough 39.7 ug/mL (5.0-20.0) H 03/13/19 05:58 Random Vancomycin 27.6 ug/mL (0-40.0) 03/14/19 05:44 Active Medications - Current Medications Current Medications: Generic Name Dose Route Start Last Admin Trade Name Freq PRN Reason Stop Dose Admin Acetaminophen 650 mg 03/10/19 17:46 Tylenol PO Q4H PRN Pain MILD(1-3)/Fever >100.5/GUERRERO Albuterol 2.5 mg 03/11/19 03:52 Proventil IH TID PRN Wheezing Albuterol/Ipratropium 1 ampul 03/11/19 08:00 03/18/19 08:25 Duoneb *Not For Prn Use* IH 1 ampul Q6HRT CONNIE Administration Lipase/Protease/Amylase 1 each 03/14/19 13:25 Pancreazmarti Sahni 10,500 Unit FEEDTUBE PRN PRN For Clogged Feeding Tube Chlordiazepoxide HCl 25 mg 03/11/19 10:00 03/17/19 11:01 Librium PO 25 mg DAILY CONNIE Administration Dextrose 50 ml 03/10/19 22:27 03/14/19 17:55 D50w (25gm) Syringe IV 50 ml Q30MIN PRN Administration Hypoglycemia Famotidine 20 mg 03/15/19 10:00 03/17/19 11:00 Pepcid PO 20 mg DAILY CONNIE Administration Fluticasone Propionate 50 mcg 03/11/19 10:00 03/17/19 11:00 Flonase NS 50 mcg QDAY CONNIE Administration Folic Acid 1 mg 03/11/19 10:00 03/17/19 11:01 Folvite PO 1 mg QDAY CONNIE Administration Haloperidol 0.5 mg 03/11/19 03:52 03/12/19 09:32 Haldol PO 0.5 mg Q6H PRN Administration Agitation Hydrophilic Ointment 1 applic 03/14/19 06:51 Vaseline Lip Therapy TP Q2HR PRN Dry Lips Propofol 1,000 mg in 100 mls @ 2.587 mls/hr 03/14/19 07:00 03/14/19 12:00 Diprivan 10 Mg/Ml IV 0 mcg/kg/min TITR CONNIE 0 mls/hr Titration Protocol 5 MCG/KG/MIN Piperacillin Sod/Tazobactam Sod 4.5 gm in 100 mls @ 200 mls/hr 03/14/19 08:00 03/18/19 05:51 Zosyn/Ns 4.5gm/100ml IV 200 mls/hr Q6HR CONNIE Administration Protocol Fentanyl Citrate 2,000 mcg in 100 mls @ 4.312 mls/hr 03/14/19 11:00 03/18/19 05:00 Fentanyl Drip Premix IV 0 mcg/kg/hr TITR CONNIE 0 mls/hr Titration Protocol 1 MCG/KG/HR Vasopressin 20 unit/ Sodium 101 mls @ 9.09 mls/hr 03/14/19 14:00 03/18/19 01:15 Chloride IV 0.03 units/min TITR CONNIE 9.09 mls/hr Administration Protocol 0.03 UNITS/MIN Dopamine HCl/Dextrose 800 mg in 250 mls @ 3.234 mls/hr 03/14/19 22:00 1106/05 08:45 Intropin Drip 800 Mg/D5w 250 Ml IV 0 mcg/kg/min TITR CONNIE 0 mls/hr Titration Protocol 2 MCG/KG/MIN Sodium Chloride 500 mls @ 15 mls/hr 03/17/19 20:00 Nacl 0.9% 500 Ml IV PRN CONNIE Daptomycin 700 mg/ Sodium 100 mls @ 200 mls/hr 03/18/19 10:00 Chloride IV 03/19/19 23:59 Q24HR CONNIE Protocol Insulin Human Lispro 0 unit 03/11/19 00:00 03/18/19 05:52 Humalog SUB-Q Not Given Q6HR CONNIE Protocol Morphine Sulfate 2 mg 03/10/19 17:56 03/15/19 02:12 Morphine IV 2 mg Q4H PRN Administration Pain, Moderate (4-6) Multi-Ingred Cream/Lotion/Oil/Oint 1 applic 03/14/19 06:51 Artificial Tears Ophth Oint OU Q4HR PRN Dry Eye(s) Ondansetron HCl 4 mg 03/10/19 17:46 03/11/19 05:04 Zofran IV 4 mg Q8H PRN Administration Nausea And Vomiting Rifaximin 550 mg 03/11/19 10:00 03/17/19 22:47 Xifaxan PO 550 mg BID CONNIE Administration Simple Syrup 15 ml 03/14/19 13:25 Simple Syrup FEEDTUBE PRN PRN Hypoglycemia Simple Syrup 30 ml 03/14/19 13:25 Simple Syrup FEEDTUBE PRN PRN Hypoglycemia Sodium Bicarbonate 325 mg 03/14/19 13:25 Sodium Bicarbonate FEEDTUBE PRN PRN For Clogged Feeding Tube Sodium Chloride 10 ml 03/10/19 22:00 03/17/19 22:47 Sodium Chloride Flush Syringe 10 Ml IV 10 ml BID CONNIE Administration Sodium Chloride 10 ml 03/10/19 17:46 03/13/19 22:50 Sodium Chloride Flush Syringe 10 Ml IV 10 ml PRN PRN Administration LINE FLUSH Thiamine HCl 100 mg 03/11/19 10:00 03/17/19 11:01 Vitamin B-1 PO 100 mg QDAY CONNIE Administration Nutrition/Malnutrition Assess - Dietary Evaluation Nutrition/Malnutrition Findings: Nutrition Notes Start: 03/11/19 10:01 Freq: Status: Active Protocol: Document 03/17/19 11:08 AP (Rec: 03/17/19 11:33 AP [id number]) Co-Sign 03/17/19 11:08 LM Nutrition Notes Need for Assessment generated from: MD Order Initial or Follow up Reassessment Current Diagnosis COPD,Decubitus(Pressure Ulcer) ,Hypertension Other Pertinent Diagnosis AMS/nonverbal, Hep C, Anemia, Renal stones Current Diet Vital AF 1.2 at 55ml/hr Labs/Tests Reviewed Pertinent Medications Reviewed Height 5 ft 3 in Weight 96.5 kg [place] Body Weight (kg) 52.27 BMI 37.7 Weight Status Obese Subjective/Other Information F/U for TF rate/tolerance. Vital AF 1.2 running at 55ml/ hr. Percent of energy/protein needs met: 93%/94% Minimum of two criteria No #1 Nutrition Diagnosis Inadequate oral intake Diagnosis Progress(for reassessment Continues documentation) Is patient on ventilator? Yes Is Patient Ambulatory and/or Out of Bed No REE-([facility]-confined to bed) 1774.128 Calculation Used for Recommendations Alonzo Carrington Additional Notes Protein: >105 g (>2g/kg IBW 52 .27 kg) Fluids: 1 ml/kcal or per MD Nutrition Intervention Change Diet Order: TF Nutrition Support: Vital AF 1.2 at 55ml/hr Flush 100ml q4h Kcal 1,584 Protein (gm) 99 Fluid (mL) 1,071 Goal #1 TF tolerance Goal #2 TF continue to meet at least 80% of estimated energy and protein needs. Anticipated Discharge Needs: unable to determine at this time Follow-Up By: 03/24/19 Additional Comments F/U for TF tolerance/rate.
[2019-03-18] MEDS: FAMOTIDINE 20 MG TAB PO SCH (10:51)
[2019-03-18] MEDS: THIAMINE 100 MG TAB PO SCH (10:51)
[2019-03-18] MEDS: FOLIC ACID 1 MG TAB PO SCH (10:51)
[2019-03-18] MEDS: chlordiazePOXIDE 25 MG CAP PO SCH (10:51)
[2019-03-18] MEDS: FLUTICASONE PROPIONATE NASAL SPRAY 16 GM NS SCH (10:51)
[2019-03-18] MEDS: RIFAXIMIN 550 MG TAB PO SCH ×2 (10:51→22:28)
[2019-03-18] MEDS ORDERED: SODIUM CHLORIDE 0.9% 1000 ML 1,000 ML IV SCH (13:00)
[2019-03-18] MEDS ORDERED: SCOPOLAMINE TRANSDERMAL PATCH 72 HR TD ONE (13:00)
--- NOTE | 2019-03-18 14:36 | Progress Note ---
Assessment and Plan Severe sepsis with septic shock Cardiac arrest (asystole with ROSC) Acute hypoxic respiratory failure on MVS Lactic acidosis- multifactorial (resolved) Acute toxic- metabolic encephalopathy Aspiration pneumonia VRE UTI Hypernatremia Thrombocytopenia h/o Cirrhosis h/o Alcohol abuse disorder KERRI Hyperkalemia - CVP's running high; will target conservative volume management - add midodrine to support BP - Continue to wean vasopressor support for MAP > 65 mmHg (currently on vasopressin & dopamine) - stop D5W with 3 amps NaHCO3/L at 125 ml's per hour (begin IVNS @ 100mls/hr X 1 liter) - increase Psupp to 15 cm H2O; continue SBT but rest overnight on AC mode - discontinue steen catheter - place scopolamine patch for secretion control - VAP bundle addressed (Aspiration precautions, HOB > 40 degrees) - continue Lung protective strategies - continue to wean FIO2 for O2 sats >90% - prn CXR's & ABG's acutely - continue to avoid nephrotoxins and adjust all medications fro GFR and CrCL - daily SAT's and SBT assessment as tolerated - continue enteral nutrition and advance to goal rate as tolerated - continue agitation management / Pain management per CPOT - continue empiric antibiotics for aspiration PNA, antibiotics for VRE, de- escalate based on cultures and clinical status (ID input appreciated) - Continue contact isolation - Continue VTE prophylaxis (SCDs), trend platelet counts and monitor for bleeding - continue stress ulcer prophylaxis with PPI - continue accuchecks with glycemic control for SSI (While critically ill target blood glucose of 140-180 mg/dL; avoid hypoglycemia) - Continue mobility protocol for pressure ulcer prevention - Continue to monitor hemodynamics closely - Monitor electrolyte profile closely and replete as indicated - continue chronic home medications per attending and as clinically indicated - Continue to hold off on neuro-imaging for now - Continue Steen catheter in this critically ill patient, with poor urine output, requiring accurate intake and output monitoring. - continue other care per attending / other consultants .... re-evaluate in am & prn CONDITION: CRITICAL PROGNOSIS: GUARDED CODE STATUS: FULL CODE The high probability of a clinically significant, sudden or life-threatening deterioration of the [respiratory, cardiovascular, neurology, hematology] syste m(s) required my full and direct attention, intervention and personal management. The aggregate critical care time was [33] minutes without overlap. Time includes spent on; [x] Data Review and interpretation [x] Patient assessment and monitoring of vital signs [x] Documentation [x] Medication orders and management Subjective Date of service: 03/18/19 Principal diagnosis: Severe sepsis with shock; Ac. hypoxemic resp failure; cardiac arrest; PNA Interval history: Follow up for severe sepsis with septic shock; acute hypoxemic respiratory failure on MVS; s/p cardiac arrest with ROSC; VRE UTI; Aspiration pneumonia Seen and examined at bedside; 24hour events reviewed; nursing and respiratory care staff consulted; no adverse overnight events reported to me; resting in bed; remains on MVS; daily SAT ongoing; secretions large; ABD on SBT suboptimal with hypercapnia; AMS is persistent; no emesis or overt aspiration reported; remains on vasopressors but weaning Objective Vital Signs - 12hr 03/18/19 03/18/19 03/18/19 02:45 02:59 03:00 Temperature Pulse Rate 78 75 Pulse Rate [ 80 Anterior Throughout] Pulse Rate [ From Monitor] Respiratory 9 L 15 Rate Respiratory 24 Rate [Anterior Throughout] Blood Pressure 125/71 129/72 O2 Sat by Pulse 100 100 Oximetry 03/18/19 03/18/19 03/18/19 03:15 03:30 03:40 Temperature Pulse Rate 74 77 75 Pulse Rate [ Anterior Throughout] Pulse Rate [ From Monitor] Respiratory 13 19 Rate Respiratory Rate [Anterior Throughout] Blood Pressure 131/74 137/75 137/75 O2 Sat by Pulse 100 100 100 Oximetry 03/18/19 03/18/19 03/18/19 03:45 04:00 04:15 Temperature 98.5 F Pulse Rate 76 79 75 Pulse Rate [ Anterior Throughout] Pulse Rate [ 79 From Monitor] Respiratory 20 16 10 L Rate Respiratory Rate [Anterior Throughout] Blood Pressure 129/75 123/70 112/68 O2 Sat by Pulse 100 100 100 Oximetry 03/18/19 03/18/19 03/18/19 04:30 04:45 05:00 Temperature Pulse Rate 77 74 81 Pulse Rate [ Anterior Throughout] Pulse Rate [ From Monitor] Respiratory 10 L 12 14 Rate Respiratory Rate [Anterior Throughout] Blood Pressure 116/70 122/70 126/76 O2 Sat by Pulse 100 100 100 Oximetry 03/18/19 03/18/19 03/18/19 05:15 05:31 05:45 Temperature Pulse Rate 76 89 87 Pulse Rate [ Anterior Throughout] Pulse Rate [ From Monitor] Respiratory 15 13 13 Rate Respiratory Rate [Anterior Throughout] Blood Pressure 128/75 81/55 96/49 O2 Sat by Pulse 100 100 100 Oximetry 03/18/19 03/18/19 03/18/19 06:00 06:15 06:30 Temperature Pulse Rate 75 67 70 Pulse Rate [ Anterior Throughout] Pulse Rate [ From Monitor] Respiratory 14 19 18 Rate Respiratory Rate [Anterior Throughout] Blood Pressure 87/57 92/55 106/63 O2 Sat by Pulse 100 100 100 Oximetry 03/18/19 03/18/19 03/18/19 06:45 07:00 07:15 Temperature Pulse Rate 74 68 76 Pulse Rate [ Anterior Throughout] Pulse Rate [ From Monitor] Respiratory 18 16 16 Rate Respiratory Rate [Anterior Throughout] Blood Pressure 116/69 121/74 128/76 O2 Sat by Pulse 100 100 100 Oximetry 03/18/19 03/18/19 03/18/19 07:30 07:45 08:00 Temperature 97.3 F L Pulse Rate 68 75 78 Pulse Rate [ Anterior Throughout] Pulse Rate [ 78 From Monitor] Respiratory 16 16 25 H Rate Respiratory Rate [Anterior Throughout] Blood Pressure 124/70 122/79 119/72 O2 Sat by Pulse 100 100 100 Oximetry 03/18/19 03/18/19 03/18/19 08:01 08:15 08:31 Temperature Pulse Rate 75 78 93 H Pulse Rate [ Anterior Throughout] Pulse Rate [ From Monitor] Respiratory 22 14 14 Rate Respiratory Rate [Anterior Throughout] Blood Pressure 134/74 129/82 119/72 O2 Sat by Pulse 100 100 99 Oximetry 03/18/19 03/18/19 03/18/19 08:45 09:00 09:15 Temperature Pulse Rate 78 89 79 Pulse Rate [ Anterior Throughout] Pulse Rate [ From Monitor] Respiratory 15 15 19 Rate Respiratory Rate [Anterior Throughout] Blood Pressure 124/74 122/79 97/60 O2 Sat by Pulse 100 100 100 Oximetry 03/18/19 03/18/19 03/18/19 09:30 09:45 10:00 Temperature Pulse Rate 76 72 75 Pulse Rate [ Anterior Throughout] Pulse Rate [ From Monitor] Respiratory 18 16 23 Rate Respiratory Rate [Anterior Throughout] Blood Pressure 96/56 100/68 102/59 O2 Sat by Pulse 100 100 100 Oximetry 03/18/19 03/18/19 03/18/19 10:15 10:30 10:45 Temperature Pulse Rate 74 78 82 Pulse Rate [ Anterior Throughout] Pulse Rate [ From Monitor] Respiratory 15 15 14 Rate Respiratory Rate [Anterior Throughout] Blood Pressure 96/57 97/65 100/73 O2 Sat by Pulse 100 100 100 Oximetry 03/18/19 03/18/19 03/18/19 11:00 11:15 11:22 Temperature Pulse Rate 86 87 101 H Pulse Rate [ Anterior Throughout] Pulse Rate [ From Monitor] Respiratory 20 17 Rate Respiratory Rate [Anterior Throughout] Blood Pressure 102/70 104/74 104/74 O2 Sat by Pulse 100 100 100 Oximetry 03/18/19 03/18/19 03/18/19 11:31 11:45 12:00 Temperature Pulse Rate 100 H 90 92 H Pulse Rate [ Anterior Throughout] Pulse Rate [ From Monitor] Respiratory 15 18 15 Rate Respiratory Rate [Anterior Throughout] Blood Pressure 110/72 110/72 107/68 O2 Sat by Pulse 95 100 100 Oximetry 03/18/19 03/18/19 03/18/19 12:15 12:30 12:45 Temperature Pulse Rate 87 89 88 Pulse Rate [ Anterior Throughout] Pulse Rate [ From Monitor] Respiratory 23 15 12 Rate Respiratory Rate [Anterior Throughout] Blood Pressure 113/71 111/74 111/74 O2 Sat by Pulse 100 100 100 Oximetry 03/18/19 03/18/19 03/18/19 13:00 13:15 13:31 Temperature Pulse Rate 89 86 94 H Pulse Rate [ Anterior Throughout] Pulse Rate [ From Monitor] Respiratory 22 20 9 L Rate Respiratory Rate [Anterior Throughout] Blood Pressure 105/69 95/55 95/62 O2 Sat by Pulse 100 100 98 Oximetry 03/18/19 03/18/19 03/18/19 13:45 14:00 14:15 Temperature Pulse Rate 90 92 H 87 Pulse Rate [ Anterior Throughout] Pulse Rate [ From Monitor] Respiratory 19 15 20 Rate Respiratory Rate [Anterior Throughout] Blood Pressure 98/62 98/60 102/60 O2 Sat by Pulse 100 100 100 Oximetry Constitutional: appears uncomfortable, other (elderly looking obese AAF with mild respiratory distress on MVS ) Eyes: non-icteric ENT: oropharynx moist, other (ETT at 23cm at the lip, small bowel feeding tube in nares) Neck: supple, no lymphadenopathy, no JVD Effort: mildly labored Ascultation: Bilateral: diminished breath sounds, rales Percussion: Bilateral: not dull Cardiovascular: regular rate and rhythm, other (S1, S2, no murmurs, gallops or rubs rhythm strip shows accelerated junctional ) Gastrointestinal: normoactive bowel sounds, soft, non-tender, non-distended, other (No HSM) Integumentary: normal Extremities: no cyanosis, no edema, pulses normal, no ischemia or petechiae Neurologic: unable to assess Psychiatric: other (unable to assess) CBC and BMP: 03/18/19 05:45 03/18/19 05:48 ABG, PT/INR, D-dimer: ABG POC ABG pH 7.299 (7.35-7.45) L 03/18/19 14:01 ABG pH 7.422 pH Units (7.350-7.450) 03/18/19 04:00 POC ABG pCO2 48.7 (35-45) H 03/18/19 14:01 ABG pCO2 33.2 mm Hg 03/18/19 04:00 POC ABG pO2 81 (80-105) 03/18/19 14:01 ABG pO2 113.7 mm Hg (80.0-90.0) H 03/18/19 04:00 POC ABG HCO3 23.9 (22-26 mml/L) 03/18/19 14:01 POC ABG Total CO2 25 (23-27mmol/L) 03/18/19 14:01 POC ABG O2 Sat 94 03/18/19 14:01 ABG O2 Saturation 98.2 % (95.0-99.0) 03/18/19 04:00 Abnormal lab findings: Abnormal Labs 03/10/19 03/10/19 03/10/19 13:16 13:16 14:38 WBC 0.8 L* RBC 3.35 L Hgb Hct MCV RDW 22.1 H Plt Count 78 L Lymph % (Auto) Lymph # Seg Neutrophils % Seg Neuts % (Manual) Lymphocytes % (Manual) 49.0 H Monocytes % (Manual) Eosinophils % (Manual) Nucleated RBC % Seg Neutrophils # Man 0.3 L Lymphocytes # (Manual) 0.4 L POC ABG pH ABG pH POC ABG pCO2 POC ABG pO2 ABG pO2 ABG HCO3 ABG Base Excess ABG Hemoglobin Sodium 147 H Potassium 5.4 H Chloride 111.8 H Carbon Dioxide BUN Creatinine 0.6 L Glucose POC Glucose Lactic Acid Calcium TIBC Ferritin AST 128 H ALT 79 H Alkaline Phosphatase 174 H Total Creatine Kinase CK-MB (CK-2) CK-MB (CK-2) Rel Index Troponin T Total Protein Albumin 2.4 L Urine WBC (Auto) 9.0 H Vancomycin Trough 03/10/19 03/10/19 03/11/19 21:22 23:36 07:29 WBC RBC Hgb Hct MCV RDW Plt Count Lymph % (Auto) Lymph # Seg Neutrophils % Seg Neuts % (Manual) Lymphocytes % (Manual) Monocytes % (Manual) Eosinophils % (Manual) Nucleated RBC % Seg Neutrophils # Man Lymphocytes # (Manual) POC ABG pH ABG pH POC ABG pCO2 POC ABG pO2 ABG pO2 ABG HCO3 ABG Base Excess ABG Hemoglobin Sodium 148 H Potassium 5.6 H Chloride 122.3 H Carbon Dioxide 20 L BUN Creatinine 0.6 L Glucose POC Glucose 65 L 112 H Lactic Acid Calcium TIBC Ferritin AST 102 H ALT 65 H Alkaline Phosphatase 134 H Total Creatine Kinase CK-MB (CK-2) CK-MB (CK-2) Rel Index Troponin T Total Protein 6.1 L Albumin 1.8 L Urine WBC (Auto) Vancomycin Trough 03/11/19 03/11/19 03/11/19 11:25 15:28 18:00 WBC 1.2 L* RBC Hgb Hct MCV RDW 22.1 H Plt Count 53 L Lymph % (Auto) Lymph # Seg Neutrophils % Seg Neuts % (Manual) 78.6 H Lymphocytes % (Manual) 9.5 L Monocytes % (Manual) 9.5 H Eosinophils % (Manual) Nucleated RBC % Seg Neutrophils # Man 0.9 L Lymphocytes # (Manual) 0.1 L POC ABG pH ABG pH POC ABG pCO2 POC ABG pO2 ABG pO2 ABG HCO3 ABG Base Excess ABG Hemoglobin Sodium Potassium Chloride Carbon Dioxide BUN Creatinine Glucose POC Glucose 117 H 118 H Lactic Acid Calcium TIBC Ferritin AST ALT Alkaline Phosphatase Total Creatine Kinase CK-MB (CK-2) CK-MB (CK-2) Rel Index Troponin T Total Protein Albumin Urine WBC (Auto) Vancomycin Trough 03/12/19 03/12/19 03/12/19 00:19 05:45 08:55 WBC 2.4 L RBC 3.33 L Hgb Hct MCV RDW 22.8 H Plt Count 58 L Lymph % (Auto) Lymph # Seg Neutrophils % Seg Neuts % (Manual) 93.0 H Lymphocytes % (Manual) 4.0 L Monocytes % (Manual) Eosinophils % (Manual) Nucleated RBC % 7.0 H Seg Neutrophils # Man Lymphocytes # (Manual) 0.1 L POC ABG pH ABG pH POC ABG pCO2 POC ABG pO2 ABG pO2 ABG HCO3 ABG Base Excess ABG Hemoglobin Sodium Potassium Chloride Carbon Dioxide BUN Creatinine Glucose POC Glucose 124 H 116 H Lactic Acid Calcium TIBC Ferritin AST ALT Alkaline Phosphatase Total Creatine Kinase CK-MB (CK-2) CK-MB (CK-2) Rel Index Troponin T Total Protein Albumin Urine WBC (Auto) Vancomycin Trough 03/12/19 03/13/19 03/13/19 08:55 00:18 03:48 WBC 2.7 L RBC 3.06 L Hgb 9.4 L Hct 29.4 L MCV RDW 23.1 H Plt Count 62 L Lymph % (Auto) Lymph # Seg Neutrophils % Seg Neuts % (Manual) 76.0 H Lymphocytes % (Manual) Monocytes % (Manual) Eosinophils % (Manual) Nucleated RBC % 11.0 H Seg Neutrophils # Man Lymphocytes # (Manual) 0.5 L POC ABG pH ABG pH POC ABG pCO2 POC ABG pO2 ABG pO2 ABG HCO3 ABG Base Excess ABG Hemoglobin Sodium Potassium 5.6 H Chloride 114.2 H Carbon Dioxide 21 L BUN Creatinine Glucose POC Glucose 119 H Lactic Acid Calcium TIBC Ferritin AST ALT Alkaline Phosphatase Total Creatine Kinase CK-MB (CK-2) CK-MB (CK-2) Rel Index Troponin T Total Protein Albumin Urine WBC (Auto) Vancomycin Trough 03/13/19 03/13/19 03/13/19 03:48 05:52 05:58 WBC RBC Hgb Hct MCV RDW Plt Count Lymph % (Auto) Lymph # Seg Neutrophils % Seg Neuts % (Manual) Lymphocytes % (Manual) Monocytes % (Manual) Eosinophils % (Manual) Nucleated RBC % Seg Neutrophils # Man Lymphocytes # (Manual) POC ABG pH ABG pH POC ABG pCO2 POC ABG pO2 ABG pO2 ABG HCO3 ABG Base Excess ABG Hemoglobin Sodium Potassium Chloride 112.7 H Carbon Dioxide 21 L BUN Creatinine Glucose 103 H POC Glucose 114 H Lactic Acid Calcium TIBC Ferritin AST ALT Alkaline Phosphatase Total Creatine Kinase CK-MB (CK-2) CK-MB (CK-2) Rel Index Troponin T Total Protein Albumin Urine WBC (Auto) Vancomycin Trough 39.7 H 03/13/19 03/13/19 03/14/19 12:12 18:00 00:17 WBC RBC Hgb Hct MCV RDW Plt Count Lymph % (Auto) Lymph # Seg Neutrophils % Seg Neuts % (Manual) Lymphocytes % (Manual) Monocytes % (Manual) Eosinophils % (Manual) Nucleated RBC % Seg Neutrophils # Man Lymphocytes # (Manual) POC ABG pH ABG pH POC ABG pCO2 POC ABG pO2 ABG pO2 ABG HCO3 ABG Base Excess ABG Hemoglobin Sodium Potassium Chloride Carbon Dioxide BUN Creatinine Glucose POC Glucose 116 H 132 H 130 H Lactic Acid Calcium TIBC Ferritin AST ALT Alkaline Phosphatase Total Creatine Kinase CK-MB (CK-2) CK-MB (CK-2) Rel Index Troponin T Total Protein Albumin Urine WBC (Auto) Vancomycin Trough 03/14/19 03/14/19 03/14/19 05:24 06:44 06:44 WBC 2.6 L RBC 3.00 L Hgb 9.2 L Hct 28.3 L MCV RDW 22.5 H Plt Count 44 L Lymph % (Auto) Lymph # Seg Neutrophils % Seg Neuts % (Manual) 75.0 H Lymphocytes % (Manual) Monocytes % (Manual) Eosinophils % (Manual) 5.0 H Nucleated RBC % 19.0 H Seg Neutrophils # Man Lymphocytes # (Manual) 0.4 L POC ABG pH ABG pH POC ABG pCO2 POC ABG pO2 ABG pO2 ABG HCO3 ABG Base Excess ABG Hemoglobin Sodium Potassium Chloride 110.2 H Carbon Dioxide 21 L BUN Creatinine 1.3 H Glucose POC Glucose 110 H Lactic Acid Calcium TIBC Ferritin AST 144 H ALT 90 H Alkaline Phosphatase 226 H Total Creatine Kinase CK-MB (CK-2) 8.6 H CK-MB (CK-2) Rel Index 7.1 H Troponin T 0.056 H D Total Protein Albumin 2.2 L Urine WBC (Auto) Vancomycin Trough 03/14/19 03/14/19 03/14/19 09:05 11:54 12:15 WBC RBC Hgb Hct MCV RDW Plt Count Lymph % (Auto) Lymph # Seg Neutrophils % Seg Neuts % (Manual) Lymphocytes % (Manual) Monocytes % (Manual) Eosinophils % (Manual) Nucleated RBC % Seg Neutrophils # Man Lymphocytes # (Manual) POC ABG pH 7.283 L 7.458 H ABG pH POC ABG pCO2 54.9 H 32.7 L POC ABG pO2 76 L ABG pO2 ABG HCO3 ABG Base Excess ABG Hemoglobin Sodium Potassium Chloride Carbon Dioxide BUN Creatinine Glucose POC Glucose Lactic Acid 2.10 H* Calcium TIBC Ferritin AST ALT Alkaline Phosphatase Total Creatine Kinase CK-MB (CK-2) CK-MB (CK-2) Rel Index Troponin T Total Protein Albumin Urine WBC (Auto) Vancomycin Trough 03/14/19 03/14/19 03/14/19 12:43 13:35 15:35 WBC RBC Hgb Hct MCV RDW Plt Count Lymph % (Auto) Lymph # Seg Neutrophils % Seg Neuts % (Manual) Lymphocytes % (Manual) Monocytes % (Manual) Eosinophils % (Manual) Nucleated RBC % Seg Neutrophils # Man Lymphocytes # (Manual) POC ABG pH ABG pH POC ABG pCO2 POC ABG pO2 ABG pO2 ABG HCO3 ABG Base Excess ABG Hemoglobin Sodium Potassium Chloride Carbon Dioxide BUN Creatinine Glucose POC Glucose 68 L Lactic Acid 2.10 H* 3.50 H* Calcium TIBC Ferritin AST ALT Alkaline Phosphatase Total Creatine Kinase CK-MB (CK-2) CK-MB (CK-2) Rel Index Troponin T Total Protein Albumin Urine WBC (Auto) Vancomycin Trough 03/14/19 03/14/19 03/14/19 17:34 17:46 17:55 WBC RBC Hgb Hct MCV RDW Plt Count Lymph % (Auto) Lymph # Seg Neutrophils % Seg Neuts % (Manual) Lymphocytes % (Manual) Monocytes % (Manual) Eosinophils % (Manual) Nucleated RBC % Seg Neutrophils # Man Lymphocytes # (Manual) POC ABG pH 7.241 L 7.244 L ABG pH POC ABG pCO2 50.4 H 50.1 H POC ABG pO2 156 H ABG pO2 ABG HCO3 ABG Base Excess ABG Hemoglobin Sodium Potassium Chloride Carbon Dioxide BUN Creatinine Glucose POC Glucose 49 L Lactic Acid Calcium TIBC Ferritin AST ALT Alkaline Phosphatase Total Creatine Kinase CK-MB (CK-2) CK-MB (CK-2) Rel Index Troponin T Total Protein Albumin Urine WBC (Auto) Vancomycin Trough 03/14/19 03/14/19 03/14/19 18:29 18:32 20:27 WBC RBC Hgb Hct MCV RDW Plt Count Lymph % (Auto) Lymph # Seg Neutrophils % Seg Neuts % (Manual) Lymphocytes % (Manual) Monocytes % (Manual) Eosinophils % (Manual) Nucleated RBC % Seg Neutrophils # Man Lymphocytes # (Manual) POC ABG pH ABG pH POC ABG pCO2 POC ABG pO2 ABG pO2 ABG HCO3 ABG Base Excess ABG Hemoglobin Sodium Potassium Chloride 112.6 H Carbon Dioxide 19 L BUN Creatinine 1.4 H Glucose 132 H POC Glucose 57 L 115 H Lactic Acid Calcium TIBC Ferritin AST ALT Alkaline Phosphatase Total Creatine Kinase CK-MB (CK-2) CK-MB (CK-2) Rel Index Troponin T Total Protein Albumin Urine WBC (Auto) Vancomycin Trough 03/14/19 03/14/19 03/15/19 23:47 Unknown 04:00 WBC RBC 2.77 L Hgb 8.5 L Hct 27.3 L MCV 98 H RDW 23.0 H Plt Count 27 L Lymph % (Auto) Lymph # Seg Neutrophils % Seg Neuts % (Manual) 75.0 H Lymphocytes % (Manual) 1.0 L Monocytes % (Manual) Eosinophils % (Manual) Nucleated RBC % 4.0 H Seg Neutrophils # Man Lymphocytes # (Manual) 0.1 L POC ABG pH ABG pH POC ABG pCO2 POC ABG pO2 ABG pO2 ABG HCO3 ABG Base Excess ABG Hemoglobin Sodium Potassium Chloride Carbon Dioxide BUN Creatinine Glucose POC Glucose 116 H Lactic Acid 3.30 H* Calcium TIBC Ferritin AST ALT Alkaline Phosphatase Total Creatine Kinase CK-MB (CK-2) CK-MB (CK-2) Rel Index Troponin T Total Protein Albumin Urine WBC (Auto) Vancomycin Trough 03/15/19 03/15/19 03/15/19 04:00 06:24 07:35 WBC RBC Hgb Hct MCV RDW Plt Count Lymph % (Auto) Lymph # Seg Neutrophils % Seg Neuts % (Manual) Lymphocytes % (Manual) Monocytes % (Manual) Eosinophils % (Manual) Nucleated RBC % Seg Neutrophils # Man Lymphocytes # (Manual) POC ABG pH 7.282 L ABG pH POC ABG pCO2 50.4 H POC ABG pO2 71 L ABG pO2 ABG HCO3 ABG Base Excess ABG Hemoglobin Sodium Potassium Chloride 112.1 H Carbon Dioxide 19 L BUN Creatinine 1.5 H Glucose 123 H POC Glucose 140 H Lactic Acid Calcium 8.2 L TIBC Ferritin AST ALT Alkaline Phosphatase Total Creatine Kinase CK-MB (CK-2) CK-MB (CK-2) Rel Index Troponin T Total Protein Albumin Urine WBC (Auto) Vancomycin Trough 03/15/19 03/15/19 03/16/19 11:47 23:25 04:33 WBC RBC Hgb Hct MCV RDW Plt Count Lymph % (Auto) Lymph # Seg Neutrophils % Seg Neuts % (Manual) Lymphocytes % (Manual) Monocytes % (Manual) Eosinophils % (Manual) Nucleated RBC % Seg Neutrophils # Man Lymphocytes # (Manual) POC ABG pH ABG pH 7.304 L POC ABG pCO2 POC ABG pO2 ABG pO2 174.4 H ABG HCO3 19.2 L ABG Base Excess -6.6 L ABG Hemoglobin 8.5 L Sodium Potassium Chloride Carbon Dioxide BUN Creatinine Glucose POC Glucose 161 H 139 H Lactic Acid Calcium TIBC Ferritin AST ALT Alkaline Phosphatase Total Creatine Kinase CK-MB (CK-2) CK-MB (CK-2) Rel Index Troponin T Total Protein Albumin Urine WBC (Auto) Vancomycin Trough 03/16/19 03/16/19 03/16/19 05:19 05:19 05:19 WBC RBC 2.92 L Hgb 8.9 L Hct 28.0 L MCV RDW 22.8 H Plt Count 42 L Lymph % (Auto) Lymph # Seg Neutrophils % Seg Neuts % (Manual) 84.0 H Lymphocytes % (Manual) 5.0 L Monocytes % (Manual) Eosinophils % (Manual) Nucleated RBC % Seg Neutrophils # Man 7.8 H Lymphocytes # (Manual) 0.5 L POC ABG pH ABG pH POC ABG pCO2 POC ABG pO2 ABG pO2 ABG HCO3 ABG Base Excess ABG Hemoglobin Sodium Potassium 5.2 H Chloride 114.0 H Carbon Dioxide 18 L BUN 22 H Creatinine 1.7 H Glucose 109 H POC Glucose Lactic Acid Calcium 8.0 L TIBC Ferritin AST ALT Alkaline Phosphatase Total Creatine Kinase 194 H CK-MB (CK-2) CK-MB (CK-2) Rel Index Troponin T Total Protein Albumin Urine WBC (Auto) Vancomycin Trough 03/16/19 03/16/19 03/16/19 05:51 12:19 17:42 WBC RBC Hgb Hct MCV RDW Plt Count Lymph % (Auto) Lymph # Seg Neutrophils % Seg Neuts % (Manual) Lymphocytes % (Manual) Monocytes % (Manual) Eosinophils % (Manual) Nucleated RBC % Seg Neutrophils # Man Lymphocytes # (Manual) POC ABG pH ABG pH POC ABG pCO2 POC ABG pO2 ABG pO2 ABG HCO3 ABG Base Excess ABG Hemoglobin Sodium Potassium Chloride Carbon Dioxide BUN Creatinine Glucose POC Glucose 123 H 134 H 130 H Lactic Acid Calcium TIBC Ferritin AST ALT Alkaline Phosphatase Total Creatine Kinase CK-MB (CK-2) CK-MB (CK-2) Rel Index Troponin T Total Protein Albumin Urine WBC (Auto) Vancomycin Trough 03/17/19 03/17/19 03/17/19 00:46 04:45 04:45 WBC RBC 2.42 L Hgb 7.5 L Hct 23.4 L MCV RDW 22.2 H Plt Count 37 L Lymph % (Auto) 6.2 L Lymph # 0.5 L Seg Neutrophils % 84.0 H Seg Neuts % (Manual) Lymphocytes % (Manual) Monocytes % (Manual) Eosinophils % (Manual) Nucleated RBC % Seg Neutrophils # Man Lymphocytes # (Manual) POC ABG pH ABG pH POC ABG pCO2 POC ABG pO2 ABG pO2 ABG HCO3 ABG Base Excess ABG Hemoglobin Sodium Potassium Chloride 115.4 H Carbon Dioxide 16 L BUN 27 H Creatinine 1.8 H Glucose 109 H POC Glucose 115 H Lactic Acid Calcium 7.9 L TIBC Ferritin AST ALT Alkaline Phosphatase Total Creatine Kinase CK-MB (CK-2) CK-MB (CK-2) Rel Index Troponin T Total Protein Albumin Urine WBC (Auto) Vancomycin Trough 03/17/19 03/17/19 03/17/19 05:00 06:05 11:15 WBC RBC Hgb Hct MCV RDW Plt Count Lymph % (Auto) Lymph # Seg Neutrophils % Seg Neuts % (Manual) Lymphocytes % (Manual) Monocytes % (Manual) Eosinophils % (Manual) Nucleated RBC % Seg Neutrophils # Man Lymphocytes # (Manual) POC ABG pH ABG pH 7.238 L POC ABG pCO2 POC ABG pO2 ABG pO2 114.7 H ABG HCO3 17.9 L ABG Base Excess -8.8 L ABG Hemoglobin 7.3 L Sodium Potassium Chloride Carbon Dioxide BUN Creatinine Glucose POC Glucose 124 H Lactic Acid Calcium TIBC 127 L Ferritin AST ALT Alkaline Phosphatase Total Creatine Kinase CK-MB (CK-2) CK-MB (CK-2) Rel Index Troponin T Total Protein Albumin Urine WBC (Auto) Vancomycin Trough 03/17/19 03/17/19 03/17/19 11:15 12:06 18:27 WBC RBC Hgb Hct MCV RDW Plt Count Lymph % (Auto) Lymph # Seg Neutrophils % Seg Neuts % (Manual) Lymphocytes % (Manual) Monocytes % (Manual) Eosinophils % (Manual) Nucleated RBC % Seg Neutrophils # Man Lymphocytes # (Manual) POC ABG pH ABG pH POC ABG pCO2 POC ABG pO2 ABG pO2 ABG HCO3 ABG Base Excess ABG Hemoglobin Sodium Potassium Chloride Carbon Dioxide BUN Creatinine Glucose POC Glucose 133 H 158 H Lactic Acid Calcium TIBC Ferritin 512.4 H AST ALT Alkaline Phosphatase Total Creatine Kinase CK-MB (CK-2) CK-MB (CK-2) Rel Index Troponin T Total Protein Albumin Urine WBC (Auto) Vancomycin Trough 03/17/19 03/18/19 03/18/19 23:30 04:00 05:45 WBC RBC 2.31 L Hgb 7.0 L Hct 22.0 L MCV RDW 22.2 H Plt Count 45 L Lymph % (Auto) Lymph # Seg Neutrophils % Seg Neuts % (Manual) 82.0 H Lymphocytes % (Manual) 12.0 L Monocytes % (Manual) Eosinophils % (Manual) 5.0 H Nucleated RBC % 1.0 H Seg Neutrophils # Man Lymphocytes # (Manual) 0.8 L POC ABG pH ABG pH POC ABG pCO2 POC ABG pO2 ABG pO2 113.7 H ABG HCO3 ABG Base Excess -3.0 L ABG Hemoglobin 7.0 L Sodium Potassium Chloride Carbon Dioxide BUN Creatinine Glucose POC Glucose 143 H Lactic Acid Calcium TIBC Ferritin AST ALT Alkaline Phosphatase Total Creatine Kinase CK-MB (CK-2) CK-MB (CK-2) Rel Index Troponin T Total Protein Albumin Urine WBC (Auto) Vancomycin Trough 03/18/19 03/18/19 03/18/19 05:48 05:50 14:01 WBC RBC Hgb Hct MCV RDW Plt Count Lymph % (Auto) Lymph # Seg Neutrophils % Seg Neuts % (Manual) Lymphocytes % (Manual) Monocytes % (Manual) Eosinophils % (Manual) Nucleated RBC % Seg Neutrophils # Man Lymphocytes # (Manual) POC ABG pH 7.299 L ABG pH POC ABG pCO2 48.7 H POC ABG pO2 ABG pO2 ABG HCO3 ABG Base Excess ABG Hemoglobin Sodium Potassium Chloride 109.9 H Carbon Dioxide BUN 28 H Creatinine 1.5 H Glucose 128 H POC Glucose 118 H Lactic Acid Calcium 7.6 L TIBC Ferritin AST ALT Alkaline Phosphatase Total Creatine Kinase CK-MB (CK-2) CK-MB (CK-2) Rel Index Troponin T Total Protein Albumin Urine WBC (Auto) Vancomycin Trough Chest x-ray: image reviewed Allied health notes reviewed: RT
--- NOTE | 2019-03-18 14:49 | Progress Note ---
Assessment and Plan Cultures: 03/10 UCx - VRE faecim 03/10 BCx - NGTD 03/14 BCX - NGTD A/P: 68 yo F PMHx hepatitis C, Dm2, many other comorbidities admitted with altered mental status, possible secondary to VRE UTI 1. VRE UTI - given worsening thrombocytopenia would treat with daptomycin. Would also ensure steen catheter is changed prior to cessation of antibiotics. 2. Hepatitis C 3. DM2 - tight glycemic control for wound healing 4. Hypoxic respiratory failure secondary to aspiration pneumonia - Continue pip- david for now, expect 5-7 day course pending clinical improvement. Recs: - start daptomycin 8mg/kg q24h - plan for 5 day course stop date 03/19 - continue pip-david 4.5g q6h. expect 7 day course pending improvement. Thank you for the consult, we will continue to follow. Berta Stacy MD [facility] ([facility]) M: [phone] O: [phone] F: [phone] Subjective Date of service: 03/18/19 Principal diagnosis: Severe sepsis with shock; Ac. hypoxemic resp failure; cardiac arrest; PNA Interval history: remains intubated and sedated Objective - Exam Narrative Exam: Constitutional: intubated, sedated Head, Ears, Nose: Normocephalic, atraumatic. External ears, nose normal Eyes: Conjunctivae/corneas clear. No icterus. No ptosis. Neck: Supple, no meningeal signs Oral: dentition fair, no thrush Cardiovascular: S1, S2 normal. Respiratory: Good air entry, clear to auscultation bilaterally GI: Soft, non-tender; bowel sounds normal. No peritoneal signs. Musculoskeletal: No pedal edema, no cyanosis. Skin: No rash or abscess Hem/Lymphatic: No palpable cervical or supraclavicular nodes. No lymphangitis Psych: Sedated Neurological: Intubated, sedated - Constitutional Vitals: Vital Signs Temp Pulse Resp BP Pulse Ox 97.3 F L 87 20 102/60 100 03/18/19 08:00 03/18/19 14:15 03/18/19 14:15 03/18/19 14:15 03/18/19 14:15 Temperature -Last 24 Hours Temperature 97.3 F Temperature 98.5 F Temperature 99.3 F Temperature 99.3 F Temperature 98.8 F Temperature 98.8 F Temperature 98.5 F - Labs CBC & Chem 7: 03/18/19 05:45 03/18/19 05:48 Labs: Abnormal lab results 03/17/19 03/17/19 03/18/19 Range/Units 18:27 23:30 04:00 RBC (3.65-5.03) M/mm3 Hgb (10.1-14.3) gm/dl Hct (30.3-42.9) % RDW (13.2-15.2) % Plt Count (140-440) K/mm3 Seg Neuts % (Manual) (40.0-70.0) % Lymphocytes % (Manual) (13.4-35.0) % Eosinophils % (Manual) (0.0-4.3) % Nucleated RBC % (0.0-0.9) % Lymphocytes # (Manual) (1.2-5.4) K/mm3 POC ABG pH (7.35-7.45) POC ABG pCO2 (35-45) ABG pO2 113.7 H (80.0-90.0) mm Hg ABG Base Excess -3.0 L (-2.0-3.0) mmol/L ABG Hemoglobin 7.0 L (12.0-16.0) gm/dl Chloride (98-107) mmol/L BUN (7-17) mg/dL Creatinine (0.7-1.2) mg/dL Glucose (65-100) mg/dL POC Glucose 158 H 143 H (70-105) Calcium (8.4-10.2) mg/dL 03/18/19 03/18/19 03/18/19 Range/Units 05:45 05:48 05:50 RBC 2.31 L (3.65-5.03) M/mm3 Hgb 7.0 L (10.1-14.3) gm/dl Hct 22.0 L (30.3-42.9) % RDW 22.2 H (13.2-15.2) % Plt Count 45 L (140-440) K/mm3 Seg Neuts % (Manual) 82.0 H (40.0-70.0) % Lymphocytes % (Manual) 12.0 L (13.4-35.0) % Eosinophils % (Manual) 5.0 H (0.0-4.3) % Nucleated RBC % 1.0 H (0.0-0.9) % Lymphocytes # (Manual) 0.8 L (1.2-5.4) K/mm3 POC ABG pH (7.35-7.45) POC ABG pCO2 (35-45) ABG pO2 (80.0-90.0) mm Hg ABG Base Excess (-2.0-3.0) mmol/L ABG Hemoglobin (12.0-16.0) gm/dl Chloride 109.9 H (98-107) mmol/L BUN 28 H (7-17) mg/dL Creatinine 1.5 H (0.7-1.2) mg/dL Glucose 128 H (65-100) mg/dL POC Glucose 118 H (70-105) Calcium 7.6 L (8.4-10.2) mg/dL 03/18/19 Range/Units 14:01 RBC (3.65-5.03) M/mm3 Hgb (10.1-14.3) gm/dl Hct (30.3-42.9) % RDW (13.2-15.2) % Plt Count (140-440) K/mm3 Seg Neuts % (Manual) (40.0-70.0) % Lymphocytes % (Manual) (13.4-35.0) % Eosinophils % (Manual) (0.0-4.3) % Nucleated RBC % (0.0-0.9) % Lymphocytes # (Manual) (1.2-5.4) K/mm3 POC ABG pH 7.299 L (7.35-7.45) POC ABG pCO2 48.7 H (35-45) ABG pO2 (80.0-90.0) mm Hg ABG Base Excess (-2.0-3.0) mmol/L ABG Hemoglobin (12.0-16.0) gm/dl Chloride (98-107) mmol/L BUN (7-17) mg/dL Creatinine (0.7-1.2) mg/dL Glucose (65-100) mg/dL POC Glucose (70-105) Calcium (8.4-10.2) mg/dL
[2019-03-18] MEDS: MIDODRINE 5 MG TAB PO SCH ×3 (15:13→20:34)
[2019-03-19] MEDS: INSULIN LISPRO 100 UNIT/ML SUB-Q SCH ×4 (00:04→21:17)
--- NOTE | 2019-03-19 02:35 | XRay Report ---
CHEST 1 VIEW 03/19/2019 2:16 AM INDICATION / CLINICAL INFORMATION: follow up respiratory failure. COMPARISON: 03/18/19 FINDINGS: SUPPORT DEVICES: Unchanged. Right midline PICC again projects over the right axilla. HEART / MEDIASTINUM: Stable. LUNGS / PLEURA: Mild bilateral interstitial edema is unchanged. No pneumothorax. ADDITIONAL FINDINGS: No significant additional findings. IMPRESSION: 1. No significant change. Signer Name: Giovany John MD Signed: 03/19/2019 2:31 AM Workstation Name: [id number]
[2019-03-19] MEDS: IPRATROPIUM/ALBUTEROL SULFATE 3 ML AMPUL.NEB IH SCH ×4 (03:33→20:07)
[2019-03-19 05:03] LABS: ABG Base Excess -3.3 mmol/L (-2.0-3.0); ABG HCO3 22.3 mmol/L (20.0-26.0); ABG Methemoglobin 0.5 % (0.0-1.5); ABG PH 7.332 pH Units (7.350-7.450); ABG PO2 116.2 mm Hg (80.0-90.0)
[2019-03-19] MEDS: PIPERACIL/TAZOBACTA 4.5/NS 100 4.5 GM/100 ML VIAL IV SCH ×3 (06:17→21:18)
--- NOTE | 2019-03-19 07:48 | Progress Note ---
Assessment and Plan Assessment and plan: 68-year-old woman who was sent from [facility] for altered mental status, she is only minimally responsive at baseline Past medical history includes hypertension, diabetes, hep C, liver disease secondary to alcoholism, encephalopathy, renal disease Acute resp failure with hypoxia on mechanical ventilator less than 96 hours Management per income tax investigator, daily weaning trials Septic shock/pneumonia Continue antibiotics. ID consult appreciated KERRI is due to ATN and vasomotor nephropathy -monitor cr level, stable and improved VRE UTI, septic shock, sepsis POA abx per ID , off pressors since 03/17 thrombocytopenia likely 2/2 sepsis, stable Acute Metabolic encephalopathy with agitation - Probably due to the acute infection - head CT scan neg x 2, Acute on chronic Pancytopenia - continue to monitor levels - Oncology consulted Hypernatremia - probably 2/2 dehydration - improved on IV D5W Hyperkalemia - s/p kayexalate, resolved Hypoglycemia -On hypoglycemic protocol H/o CLD -Continue lactulose and rifaximin Nutrition Continue tube feeding DVT prophylaxis - On SCDs due to thrombocytopenia Disposition: Prognosis is guarded/poor Critical time spent: 35 mins History Interval history: Intubated and not sedated, , no vomiting, no fevers, no agitation, no seizures Hospitalist Physical - Physical exam Narrative exam: General.: No distress, intubated HEENT: Moist mucous membranes, extraocular muscles intact, no lymphadenopathy Neck: supple Cardiac: S1-S2 heard Lungs: clear to auscultation bilaterally Abdomen: soft , nontender, nondistended, bowel sounds positive Extremities: no edema clubbing or cyanosis Skin: no rash or lesions Neurologic: Intubated, not sedated. Minimally responsive. Grimaces to painful stimuli, does not open eyes, does not turn to voice, but squeezes her face to loud noise Psych: Intubated - Constitutional Vitals: Temp Pulse Resp BP Pulse Ox 95.0 F L 68 18 94/58 100 03/19/19 04:00 03/19/19 07:00 03/19/19 07:00 03/19/19 07:00 03/19/19 07:00 General appearance: Present: no acute distress, other (mildly agitated) Results - Labs CBC & Chem 7: 03/18/19 05:45 03/18/19 05:48 Labs: Laboratory Last Values WBC 6.8 K/mm3 (4.5-11.0) 03/18/19 05:45 RBC 2.31 M/mm3 (3.65-5.03) L 03/18/19 05:45 Hgb 7.0 gm/dl (10.1-14.3) L 03/18/19 05:45 Hct 22.0 % (30.3-42.9) L 03/18/19 05:45 MCV 95 fl (79-97) 03/18/19 05:45 MCH 31 pg (28-32) 03/18/19 05:45 MCHC 32 % (30-34) 03/18/19 05:45 RDW 22.2 % (13.2-15.2) H 03/18/19 05:45 Plt Count 45 K/mm3 (140-440) L 03/18/19 05:45 Lymph % (Auto) 6.2 % (13.4-35.0) L 03/17/19 04:45 [place] % (Auto) 6.4 % (0.0-7.3) 03/17/19 04:45 Eos % (Auto) 3.2 % (0.0-4.3) 03/17/19 04:45 Baso % (Auto) 0.2 % (0.0-1.8) 03/17/19 04:45 Lymph # 0.5 K/mm3 (1.2-5.4) L 03/17/19 04:45 [place] # 0.6 K/mm3 (0.0-0.8) 03/17/19 04:45 Eos # 0.3 K/mm3 (0.0-0.4) 03/17/19 04:45 Baso # 0.0 K/mm3 (0.0-0.1) 03/17/19 04:45 Add Manual Diff Complete 03/18/19 05:45 Total Counted 100 03/18/19 05:45 Seg Neutrophils % 84.0 % (40.0-70.0) H 03/17/19 04:45 Seg Neuts % (Manual) 82.0 % (40.0-70.0) H 03/18/19 05:45 Band Neutrophils % 0 % 03/18/19 05:45 Lymphocytes % (Manual) 12.0 % (13.4-35.0) L 03/18/19 05:45 Reactive Lymphs % (Man) 0 % 03/18/19 05:45 Monocytes % (Manual) 1.0 % (0.0-7.3) 03/18/19 05:45 Eosinophils % (Manual) 5.0 % (0.0-4.3) H 03/18/19 05:45 Basophils % (Manual) 0 % (0.0-1.8) 03/18/19 05:45 Metamyelocytes % 0 % 03/18/19 05:45 Myelocytes % 0 % 03/18/19 05:45 Promyelocytes % 0 % 03/18/19 05:45 Blast Cells % 0 % 03/18/19 05:45 Nucleated RBC % 1.0 % (0.0-0.9) H 03/18/19 05:45 Seg Neutrophils # 7.2 K/mm3 (1.8-7.7) 03/17/19 04:45 Seg Neutrophils # Man 5.6 K/mm3 (1.8-7.7) 03/18/19 05:45 Band Neutrophils # 0.0 K/mm3 03/18/19 05:45 Lymphocytes # (Manual) 0.8 K/mm3 (1.2-5.4) L 03/18/19 05:45 Abs React Lymphs (Man) 0.0 K/mm3 03/18/19 05:45 Monocytes # (Manual) 0.1 K/mm3 (0.0-0.8) 03/18/19 05:45 Eosinophils # (Manual) 0.3 K/mm3 (0.0-0.4) 03/18/19 05:45 Basophils # (Manual) 0.0 K/mm3 (0.0-0.1) 03/18/19 05:45 Metamyelocytes # 0.0 K/mm3 03/18/19 05:45 Myelocytes # 0.0 K/mm3 03/18/19 05:45 Promyelocytes # 0.0 K/mm3 03/18/19 05:45 Blast Cells # 0.0 K/mm3 03/18/19 05:45 Pathologist Review 03/18/19 05:45 WBC Morphology Not Reportable 03/16/19 05:19 Hypersegmented Neuts Not Reportable 03/18/19 05:45 Hyposegmented Neuts Not Reportable 03/18/19 05:45 Hypogranular Neuts Not Reportable 03/18/19 05:45 Smudge Cells Not Reportable 03/18/19 05:45 Toxic Granulation Not Reportable 03/18/19 05:45 Toxic Vacuolation Not Reportable 03/18/19 05:45 Dohle Bodies Not Reportable 03/18/19 05:45 Pelger-Huet Anomaly Not Reportable 03/18/19 05:45 Sheila Rods Not Reportable 03/18/19 05:45 Platelet Estimate Consistent w auto 03/18/19 05:45 Clumped Platelets Not Reportable 03/18/19 05:45 Plt Clumps, EDTA Not Reportable 03/18/19 05:45 Large Platelets Not Reportable 03/18/19 05:45 Giant Platelets Not Reportable 03/18/19 05:45 Platelet Satelliting Not Reportable 03/18/19 05:45 Plt Morphology Comment Not Reportable 03/18/19 05:45 RBC Morphology Not Reportable 03/18/19 05:45 Dimorphic RBCs Not Reportable 03/18/19 05:45 Polychromasia Not Reportable 03/18/19 05:45 Hypochromasia Not Reportable 03/18/19 05:45 Poikilocytosis Not Reportable 03/18/19 05:45 Anisocytosis 1+ 03/18/19 05:45 Microcytosis Rare 03/18/19 05:45 Macrocytosis Rare 03/18/19 05:45 Spherocytes Not Reportable 03/18/19 05:45 Pappenheimer Bodies Not Reportable 03/18/19 05:45 Sickle Cells Not Reportable 03/18/19 05:45 Target Cells Few 03/18/19 05:45 Tear Drop Cells Not Reportable 03/18/19 05:45 Ovalocytes Not Reportable 03/18/19 05:45 Helmet Cells Not Reportable 03/18/19 05:45 [place] Bodies Not Reportable 03/18/19 05:45 [place] Rings Not Reportable 03/18/19 05:45 [place] Cells Not Reportable 03/18/19 05:45 Bite Cells Not Reportable 03/18/19 05:45 Crenated Cell Not Reportable 03/18/19 05:45 Elliptocytes Not Reportable 03/18/19 05:45 Acanthocytes (Spur) Not Reportable 03/18/19 05:45 Rouleaux Not Reportable 03/18/19 05:45 Hemoglobin C Crystals Not Reportable 03/18/19 05:45 Schistocytes Not Reportable 03/18/19 05:45 Malaria parasites Not Reportable 03/18/19 05:45 [place] Bodies Not Reportable 03/18/19 05:45 Hem Pathologist Commnt Sent to pathology 03/18/19 05:45 POC ABG pH 7.299 (7.35-7.45) L 03/18/19 14:01 ABG pH 7.332 pH Units (7.350-7.450) L 03/19/19 04:43 POC ABG pCO2 48.7 (35-45) H 03/18/19 14:01 ABG pCO2 43.0 mm Hg 03/19/19 04:43 POC ABG pO2 81 (80-105) 03/18/19 14:01 ABG pO2 116.2 mm Hg (80.0-90.0) H 03/19/19 04:43 POC ABG HCO3 23.9 (22-26 mml/L) 03/18/19 14:01 ABG HCO3 22.3 mmol/L (20.0-26.0) 03/19/19 04:43 POC ABG Total CO2 25 (23-27mmol/L) 03/18/19 14:01 POC ABG O2 Sat 94 03/18/19 14:01 ABG O2 Saturation 98.0 % (95.0-99.0) 03/19/19 04:43 ABG O2 Content 10.0 (0.0-44) 03/19/19 04:43 POC ABG Base Excess -3 ((-2) - (+3)mmol/L) 03/18/19 14:01 ABG Base Excess -3.3 mmol/L (-2.0-3.0) L 03/19/19 04:43 ABG Hemoglobin 7.3 gm/dl (12.0-16.0) L 03/19/19 04:43 ABG Carboxyhemoglobin 2.7 % (0.0-5.0) 03/19/19 04:43 ABG Methemoglobin 0.5 % (0.0-1.5) 03/19/19 04:43 Oxyhemoglobin 94.9 % (95.0-99.0) L 03/19/19 04:43 FiO2 25 % 03/19/19 04:43 Sodium 141 mmol/L (137-145) 03/18/19 05:48 Potassium 3.6 mmol/L (3.6-5.0) 03/18/19 05:48 Chloride 109.9 mmol/L (98-107) H 03/18/19 05:48 Carbon Dioxide 22 mmol/L (22-30) 03/18/19 05:48 Anion Gap 13 mmol/L 03/18/19 05:48 BUN 28 mg/dL (7-17) H 03/18/19 05:48 Creatinine 1.5 mg/dL (0.7-1.2) H 03/18/19 05:48 Estimated GFR 42 ml/min 03/18/19 05:48 BUN/Creatinine Ratio 19 % 03/18/19 05:48 Glucose 128 mg/dL (65-100) H 03/18/19 05:48 POC Glucose 122 (70-105) H 03/19/19 06:02 Hemoglobin A1c 4.6 % (4-6) 03/10/19 13:16 Lactic Acid 1.50 mmol/L (0.7-2.0) 03/15/19 13:15 Calcium 7.6 mg/dL (8.4-10.2) L 03/18/19 05:48 Iron 81 ug/dL (37-170) 03/17/19 11:15 TIBC 127 mcg/dL (250-450) L 03/17/19 11:15 Ferritin 512.4 ng/mL (13.0-400.0) H 03/17/19 11:15 Total Bilirubin 0.50 mg/dL (0.1-1.2) 03/14/19 06:44 AST 144 units/L (5-40) H 03/14/19 06:44 ALT 90 units/L (7-56) H 03/14/19 06:44 Alkaline Phosphatase 226 units/L (35-129) H 03/14/19 06:44 Ammonia 54.0 umol/L (25-60) 03/11/19 07:29 Total Creatine Kinase 194 units/L (30-135) H 03/16/19 05:19 CK-MB (CK-2) 8.6 ng/mL (0.0-4.0) H 03/14/19 06:44 CK-MB (CK-2) Rel Index 7.1 (0-4) H 03/14/19 06:44 Troponin T 0.056 ng/mL (0.00-0.029) H D 03/14/19 06:44 Total Protein 6.7 g/dL (6.3-8.2) 03/14/19 06:44 Albumin 2.2 g/dL (3.9-5) L 03/14/19 06:44 Albumin/Globulin Ratio 0.5 % 03/14/19 06:44 Triglycerides 62 mg/dL (2-149) 03/14/19 06:44 Cholesterol 133 mg/dL (50-199) 03/14/19 06:44 LDL Cholesterol Direct 89 mg/dL (50-130) 03/14/19 06:44 HDL Cholesterol 43 mg/dL (40-59) 03/14/19 06:44 Cholesterol/HDL Ratio 3.09 % 03/14/19 06:44 Urine Color Straw (Yellow) 03/10/19 14:38 Urine Turbidity Clear (Clear) 03/10/19 14:38 Urine pH 7.0 (5.0-7.0) 03/10/19 14:38 Ur Specific [place] 1.009 (1.003-1.030) 03/10/19 14:38 Urine Protein <15 mg/dl mg/dL (Negative) 03/10/19 14:38 Urine Glucose (UA) Neg mg/dL (Negative) 03/10/19 14:38 Urine Ketones Neg mg/dL (Negative) 03/10/19 14:38 Urine Blood Neg (Negative) 03/10/19 14:38 Urine Nitrite Neg (Negative) 03/10/19 14:38 Urine Bilirubin Neg (Negative) 03/10/19 14:38 Urine Urobilinogen < 2.0 mg/dL (<2.0) 03/10/19 14:38 Ur Leukocyte Esterase Sm (Negative) 03/10/19 14:38 Urine WBC (Auto) 9.0 /HPF (0.0-6.0) H 03/10/19 14:38 Urine RBC (Auto) 2.0 /HPF (0.0-6.0) 03/10/19 14:38 U Epithel Cells (Auto) 1.0 /HPF (0-13.0) 03/10/19 14:38 Urine Bacteria (Auto) 2+ /HPF (Negative) 03/10/19 14:38 Urine Mucus Few /HPF 03/10/19 14:38 Vancomycin Trough 39.7 ug/mL (5.0-20.0) H 03/13/19 05:58 Random Vancomycin 27.6 ug/mL (0-40.0) 03/14/19 05:44 Active Medications - Current Medications Current Medications: Generic Name Dose Route Start Last Admin Trade Name Freq PRN Reason Stop Dose Admin Acetaminophen 650 mg 03/10/19 17:46 Tylenol PO Q4H PRN Pain MILD(1-3)/Fever >100.5/GUERRERO Albuterol 2.5 mg 03/11/19 03:52 Proventil IH TID PRN Wheezing Albuterol/Ipratropium 1 ampul 03/11/19 08:00 03/19/19 03:33 Duoneb *Not For Prn Use* IH 1 ampul Q6HRT CONNIE Administration Lipase/Protease/Amylase 1 each 03/14/19 13:25 Pancreazmarti Sahni 10,500 Unit FEEDTUBE PRN PRN For Clogged Feeding Tube Chlordiazepoxide HCl 25 mg 03/11/19 10:00 03/18/19 10:51 Librium PO 25 mg DAILY CONNIE Administration Dextrose 50 ml 03/10/19 22:27 03/14/19 17:55 D50w (25gm) Syringe IV 50 ml Q30MIN PRN Administration Hypoglycemia Famotidine 20 mg 03/15/19 10:00 03/18/19 10:51 Pepcid PO 20 mg DAILY CONNIE Administration Fluticasone Propionate 50 mcg 03/11/19 10:00 03/18/19 10:51 Flonase NS 50 mcg QDAY CONNIE Administration Folic Acid 1 mg 03/11/19 10:00 03/18/19 10:51 Folvite PO 1 mg QDAY CONNIE Administration Haloperidol 0.5 mg 03/11/19 03:52 03/12/19 09:32 Haldol PO 0.5 mg Q6H PRN Administration Agitation Hydrophilic Ointment 1 applic 03/14/19 06:51 Vaseline Lip Therapy TP Q2HR PRN Dry Lips Propofol 1,000 mg in 100 mls @ 2.587 mls/hr 03/14/19 07:00 03/14/19 12:00 Diprivan 10 Mg/Ml IV 0 mcg/kg/min TITR CONNIE 0 mls/hr Titration Protocol 5 MCG/KG/MIN Fentanyl Citrate 2,000 mcg in 100 mls @ 4.312 mls/hr 03/14/19 11:00 03/18/19 21:00 Fentanyl Drip Premix IV 2 mcg/kg/hr TITR CONNIE 8.623 mls/hr Titration Protocol 1 MCG/KG/HR Vasopressin 20 unit/ Sodium 101 mls @ 9.09 mls/hr 03/14/19 14:00 03/18/19 12:30 Chloride IV Infused TITR CONNIE Titration Protocol 0.03 UNITS/MIN Dopamine HCl/Dextrose 800 mg in 250 mls @ 3.234 mls/hr 03/14/19 22:00 03/18/19 08:45 Intropin Drip 800 Mg/D5w 250 Ml IV 0 mcg/kg/min TITR CONNIE 0 mls/hr Titration Protocol 2 MCG/KG/MIN Sodium Chloride 500 mls @ 15 mls/hr 03/17/19 20:00 Nacl 0.9% 500 Ml IV PRN CONNIE Daptomycin 700 mg/ Sodium 100 mls @ 200 mls/hr 03/18/19 10:00 03/18/19 10:50 Chloride IV 03/19/19 23:59 200 mls/hr Q24HR CONNIE Administration Protocol Piperacillin Sod/Tazobactam Sod 4.5 gm in 100 mls @ 200 mls/hr 03/18/19 22:00 03/19/19 06:17 Zosyn/Ns 4.5gm/100ml IV 200 mls/hr Q8HR CONNIE Administration Protocol Insulin Human Lispro 0 unit 03/11/19 00:00 03/19/19 06:17 Humalog SUB-Q Not Given Q6HR CONNIE Protocol Midodrine 10 mg 03/18/19 14:00 03/18/19 20:34 Proamatine PO 03/19/19 08:01 10 mg TID CONNIE Administration Morphine Sulfate 2 mg 03/10/19 17:56 03/15/19 02:12 Morphine IV 2 mg Q4H PRN Administration Pain, Moderate (4-6) Multi-Ingred Cream/Lotion/Oil/Oint 1 applic 03/14/19 06:51 Artificial Tears Ophth Oint OU Q4HR PRN Dry Eye(s) Ondansetron HCl 4 mg 03/10/19 17:46 03/11/19 05:04 Zofran IV 4 mg Q8H PRN Administration Nausea And Vomiting Rifaximin 550 mg 03/11/19 10:00 03/18/19 22:28 Xifaxan PO 550 mg BID CONNIE Administration Simple Syrup 15 ml 03/14/19 13:25 Simple Syrup FEEDTUBE PRN PRN Hypoglycemia Simple Syrup 30 ml 03/14/19 13:25 Simple Syrup FEEDTUBE PRN PRN Hypoglycemia Sodium Bicarbonate 325 mg 03/14/19 13:25 Sodium Bicarbonate FEEDTUBE PRN PRN For Clogged Feeding Tube Sodium Chloride 10 ml 03/10/19 22:00 03/19/19 04:13 Sodium Chloride Flush Syringe 10 Ml IV Not Given BID CONNIE Sodium Chloride 10 ml 03/10/19 17:46 03/13/19 22:50 Sodium Chloride Flush Syringe 10 Ml IV 10 ml PRN PRN Administration LINE FLUSH Thiamine HCl 100 mg 03/11/19 10:00 03/18/19 10:51 Vitamin B-1 PO 100 mg QDAY CONNIE Administration Nutrition/Malnutrition Assess - Dietary Evaluation Nutrition/Malnutrition Findings: Nutrition Notes Start: 03/11/19 10:01 Freq: Status: Active Protocol: Document 03/17/19 11:08 AP (Rec: 03/17/19 11:33 AP [id number]) Co-Sign 03/17/19 11:08 LM Nutrition Notes Need for Assessment generated from: MD Order Initial or Follow up Reassessment Current Diagnosis COPD,Decubitus(Pressure Ulcer) ,Hypertension Other Pertinent Diagnosis AMS/nonverbal, Hep C, Anemia, Renal stones Current Diet Vital AF 1.2 at 55ml/hr Labs/Tests Reviewed Pertinent Medications Reviewed Height 5 ft 3 in Weight 96.5 kg [place] Body Weight (kg) 52.27 BMI 37.7 Weight Status Obese Subjective/Other Information F/U for TF rate/tolerance. Vital AF 1.2 running at 55ml/ hr. Percent of energy/protein needs met: 93%/94% Minimum of two criteria No #1 Nutrition Diagnosis Inadequate oral intake Diagnosis Progress(for reassessment Continues documentation) Is patient on ventilator? Yes Is Patient Ambulatory and/or Out of Bed No REE-([facility]-confined to bed) 1774.128 Calculation Used for Recommendations [facility] Additional Notes Protein: >105 g (>2g/kg IBW 52 .27 kg) Fluids: 1 ml/kcal or per MD Nutrition Intervention Change Diet Order: TF Nutrition Support: Vital AF 1.2 at 55ml/hr Flush 100ml q4h Kcal 1,584 Protein (gm) 99 Fluid (mL) 1,071 Goal #1 TF tolerance Goal #2 TF continue to meet at least 80% of estimated energy and protein needs. Anticipated Discharge Needs: unable to determine at this time Follow-Up By: 03/24/19 Additional Comments F/U for TF tolerance/rate.
--- NOTE | 2019-03-19 09:09 | Progress Note ---
Assessment and Plan Severe sepsis with septic shock Cardiac arrest-asystole with ROSC Acute hypoxic respiratory failure on MVS Lactic acidosis- multifactorial ( resolved) Acute toxic- metabolic encephalopathy Aspiration pneumonia VRE UTI Hypernatremia Thrombocytopenia h/o Cirrhosis h/o Alcohol abuse disorder KERRI Hyperkalemia She is inconsistently tolerating PSV trials, and has copious oropharyngeal secretions. Her mental status also waxes and wanes. Will evaluate on a dialy basis for readiness for extubation. Add anti-cholinergics for secretion control and management Continue all therapies and care as outlined below -VAP bundle addressed -Aspiration precautions, HOB>40 degrees - Lung protective strategies -Wean FIO2 for O2 sats>90% , once FIO2 is down to 50%, wean PEEP -CXR, ABG prn -Avoid nephrotoxins and adjust all medications fro GFR and CrCL -Daily assessment fro weaning readiness -Start tube feedings -Agitation management, Pain management -Empiric antibiotics for aspiration PNA, antibiotics for VRE, de-escalate based on cultures and clinical status -Continue contact isolation - Continue VTE prophylaxis ( SCDs), trend platelet counts and monitor for bleeding -Stress ulcer prophylaxis - Accuchecks with glycemic control for SSI (While critically ill target blood glucose of 140-180 mg/dL; avoid hypoglycemia) - Continue mobility protocol for pressure ulcer prevention - Continue to monitor hemodynamics closely -Monitor electrolyte profile closely and replete as indicated -Chronic home medications, continue as clinically indicated - Continue to hold off on neuro-imaging for now - Continue Andersen catheter in this critically ill patient, with poor urine output, requiring accurate intake and output monitoring. CONDITION: CRITICAL PROGNOSIS: GUARDED CODE STATUS: FULL CODE The high probability of a clinically significant, sudden or life-threatening deterioration of the [respiratory, cardiovascular, neurology, hematology] system(s) required my full and direct attention, intervention and personal management. The aggregate critical care time was [35] minutes without overlap. Time includes spent on; [x] Data Review and interpretation [x] Patient assessment and monitoring of vital signs [x] Documentation [x] Medication orders and management Subjective Date of service: 03/19/19 Principal diagnosis: Severe sepsis with shock; Ac. hypoxemic resp failure; cardiac arrest; PNA Interval history: Follow up for severe sepsis with septic shock; acute hypoxemic respiratory failu re on MVS; s/p cardiac arrest with ROSC; VRE UTI; aspiration pneumonia; Patient seen and examined. Vitals, labs, medications, chart and imaging reviewed.24 hour events reviewed. Remains encephalopathic Remains critically ill on full ventilatory support Objective Vital Signs - 12hr 03/18/19 03/18/19 03/18/19 21:15 21:30 21:45 Temperature Pulse Rate 75 77 74 Pulse Rate [ Anterior Bilateral Throughout] Pulse Rate [ Anterior Throughout] Pulse Rate [ From Monitor] Respiratory 12 11 L 19 Rate Respiratory Rate [Anterior Bilateral Throughout] Respiratory Rate [Anterior Throughout] Respiratory Rate [ Generalized] Blood Pressure 106/69 141/121 116/65 O2 Sat by Pulse 100 100 100 Oximetry 03/18/19 03/18/19 03/18/19 22:00 22:15 22:30 Temperature Pulse Rate 72 71 71 Pulse Rate [ Anterior Bilateral Throughout] Pulse Rate [ Anterior Throughout] Pulse Rate [ From Monitor] Respiratory 14 18 13 Rate Respiratory Rate [Anterior Bilateral Throughout] Respiratory Rate [Anterior Throughout] Respiratory 25 H Rate [ Generalized] Blood Pressure 109/62 108/62 105/60 O2 Sat by Pulse 100 100 100 Oximetry 03/18/19 03/18/19 03/18/19 22:45 23:00 23:15 Temperature Pulse Rate 70 72 69 Pulse Rate [ Anterior Bilateral Throughout] Pulse Rate [ Anterior Throughout] Pulse Rate [ From Monitor] Respiratory 14 15 16 Rate Respiratory Rate [Anterior Bilateral Throughout] Respiratory Rate [Anterior Throughout] Respiratory Rate [ Generalized] Blood Pressure 110/62 108/63 109/62 O2 Sat by Pulse 100 100 100 Oximetry 03/18/19 03/18/19 03/18/19 23:24 23:30 23:45 Temperature Pulse Rate 69 76 76 Pulse Rate [ Anterior Bilateral Throughout] Pulse Rate [ Anterior Throughout] Pulse Rate [ From Monitor] Respiratory 13 13 15 Rate Respiratory Rate [Anterior Bilateral Throughout] Respiratory Rate [Anterior Throughout] Respiratory Rate [ Generalized] Blood Pressure 109/62 108/58 119/66 O2 Sat by Pulse 100 100 100 Oximetry 03/18/19 03/19/19 03/19/19 23:52 00:00 00:03 Temperature 97.8 F Pulse Rate 76 66 66 Pulse Rate [ Anterior Bilateral Throughout] Pulse Rate [ Anterior Throughout] Pulse Rate [ 67 From Monitor] Respiratory 13 14 Rate Respiratory Rate [Anterior Bilateral Throughout] Respiratory Rate [Anterior Throughout] Respiratory Rate [ Generalized] Blood Pressure 105/58 110/67 110/67 O2 Sat by Pulse 100 100 100 Oximetry 03/19/19 03/19/19 03/19/19 00:15 00:30 00:45 Temperature Pulse Rate 72 60 65 Pulse Rate [ Anterior Bilateral Throughout] Pulse Rate [ Anterior Throughout] Pulse Rate [ From Monitor] Respiratory 14 17 13 Rate Respiratory Rate [Anterior Bilateral Throughout] Respiratory Rate [Anterior Throughout] Respiratory Rate [ Generalized] Blood Pressure 91/52 88/50 109/65 O2 Sat by Pulse 100 100 100 Oximetry 03/19/19 03/19/19 03/19/19 01:00 01:15 01:30 Temperature Pulse Rate 65 62 60 Pulse Rate [ Anterior Bilateral Throughout] Pulse Rate [ Anterior Throughout] Pulse Rate [ From Monitor] Respiratory 16 16 14 Rate Respiratory Rate [Anterior Bilateral Throughout] Respiratory Rate [Anterior Throughout] Respiratory Rate [ Generalized] Blood Pressure 108/66 112/64 110/61 O2 Sat by Pulse 100 100 100 Oximetry 03/19/19 03/19/19 03/19/19 01:45 02:00 02:15 Temperature Pulse Rate 61 63 76 Pulse Rate [ Anterior Bilateral Throughout] Pulse Rate [ Anterior Throughout] Pulse Rate [ From Monitor] Respiratory 13 17 12 Rate Respiratory Rate [Anterior Bilateral Throughout] Respiratory Rate [Anterior Throughout] Respiratory Rate [ Generalized] Blood Pressure 113/67 118/66 122/70 O2 Sat by Pulse 100 100 100 Oximetry 03/19/19 03/19/19 03/19/19 02:30 02:45 03:00 Temperature Pulse Rate 65 65 64 Pulse Rate [ Anterior Bilateral Throughout] Pulse Rate [ Anterior Throughout] Pulse Rate [ From Monitor] Respiratory 15 12 19 Rate Respiratory Rate [Anterior Bilateral Throughout] Respiratory Rate [Anterior Throughout] Respiratory Rate [ Generalized] Blood Pressure 116/69 118/67 124/72 O2 Sat by Pulse 100 100 100 Oximetry 03/19/19 03/19/19 03/19/19 03:15 03:30 03:34 Temperature Pulse Rate 66 67 Pulse Rate [ Anterior Bilateral Throughout] Pulse Rate [ 66 Anterior Throughout] Pulse Rate [ From Monitor] Respiratory 16 23 Rate Respiratory Rate [Anterior Bilateral Throughout] Respiratory 20 Rate [Anterior Throughout] Respiratory Rate [ Generalized] Blood Pressure 117/71 118/73 O2 Sat by Pulse 100 100 Oximetry 03/19/19 03/19/19 03/19/19 03:45 04:00 04:15 Temperature 95.0 F L Pulse Rate 64 68 67 Pulse Rate [ Anterior Bilateral Throughout] Pulse Rate [ Anterior Throughout] Pulse Rate [ 66 From Monitor] Respiratory 12 16 10 L Rate Respiratory Rate [Anterior Bilateral Throughout] Respiratory Rate [Anterior Throughout] Respiratory Rate [ Generalized] Blood Pressure 114/67 117/73 121/71 O2 Sat by Pulse 100 100 100 Oximetry 03/19/19 03/19/19 03/19/19 04:24 04:30 04:45 Temperature Pulse Rate 66 68 66 Pulse Rate [ Anterior Bilateral Throughout] Pulse Rate [ Anterior Throughout] Pulse Rate [ From Monitor] Respiratory 11 L 12 Rate Respiratory Rate [Anterior Bilateral Throughout] Respiratory Rate [Anterior Throughout] Respiratory Rate [ Generalized] Blood Pressure 121/71 105/72 102/66 O2 Sat by Pulse 100 100 100 Oximetry 03/19/19 03/19/19 03/19/19 05:00 05:15 05:30 Temperature Pulse Rate 67 65 66 Pulse Rate [ Anterior Bilateral Throughout] Pulse Rate [ Anterior Throughout] Pulse Rate [ From Monitor] Respiratory 16 16 18 Rate Respiratory Rate [Anterior Bilateral Throughout] Respiratory Rate [Anterior Throughout] Respiratory Rate [ Generalized] Blood Pressure 95/68 114/67 123/71 O2 Sat by Pulse 100 100 100 Oximetry 03/19/19 03/19/19 03/19/19 05:45 06:00 06:15 Temperature Pulse Rate 66 68 68 Pulse Rate [ Anterior Bilateral Throughout] Pulse Rate [ Anterior Throughout] Pulse Rate [ From Monitor] Respiratory 13 15 14 Rate Respiratory Rate [Anterior Bilateral Throughout] Respiratory Rate [Anterior Throughout] Respiratory Rate [ Generalized] Blood Pressure 114/69 122/72 119/75 O2 Sat by Pulse 100 100 100 Oximetry 03/19/19 03/19/19 03/19/19 06:30 06:45 07:00 Temperature Pulse Rate 79 75 68 Pulse Rate [ Anterior Bilateral Throughout] Pulse Rate [ Anterior Throughout] Pulse Rate [ From Monitor] Respiratory 14 15 18 Rate Respiratory Rate [Anterior Bilateral Throughout] Respiratory Rate [Anterior Throughout] Respiratory Rate [ Generalized] Blood Pressure 156/88 129/78 94/58 O2 Sat by Pulse 100 100 100 Oximetry 03/19/19 03/19/19 03/19/19 07:15 07:30 07:45 Temperature Pulse Rate 68 66 82 Pulse Rate [ Anterior Bilateral Throughout] Pulse Rate [ Anterior Throughout] Pulse Rate [ From Monitor] Respiratory 12 22 17 Rate Respiratory Rate [Anterior Bilateral Throughout] Respiratory Rate [Anterior Throughout] Respiratory Rate [ Generalized] Blood Pressure 125/72 123/74 113/71 O2 Sat by Pulse 100 100 100 Oximetry 03/19/19 03/19/19 03/19/19 08:00 08:16 08:28 Temperature Pulse Rate 78 72 73 Pulse Rate [ 85 Anterior Bilateral Throughout] Pulse Rate [ 85 Anterior Throughout] Pulse Rate [ From Monitor] Respiratory 14 18 25 H Rate Respiratory 18 Rate [Anterior Bilateral Throughout] Respiratory 18 Rate [Anterior Throughout] Respiratory Rate [ Generalized] Blood Pressure 108/72 139/73 111/70 O2 Sat by Pulse 100 100 100 Oximetry Constitutional: appears uncomfortable, other (elderly looking obese AAF with mild respiratory distress on MVS ) Eyes: non-icteric ENT: oropharynx moist, other (ETT at 23cm at the lip, small bowel feeding tube in nares) Neck: supple, no lymphadenopathy, no JVD Effort: mildly labored Ascultation: Bilateral: diminished breath sounds, rales, rhonchi Percussion: Bilateral: not dull Cardiovascular: regular rate and rhythm, other (S1, S2, no murmurs, gallops or rubs rhythm strip shows accelerated junctional ) Gastrointestinal: normoactive bowel sounds, soft, non-tender, non-distended, other (No HSM) Integumentary: normal Extremities: no cyanosis, no edema, pulses normal, no ischemia or petechiae Neurologic: pupils equal and round, other (awke and alert, tracks voice) Psychiatric: other (unable to assess) CBC and BMP: 03/29/19 05:00 03/29/19 05:00 ABG, PT/INR, D-dimer: ABG POC ABG pH 7.299 (7.35-7.45) L 03/18/19 14:01 ABG pH 7.332 pH Units (7.350-7.450) L 03/19/19 04:43 POC ABG pCO2 48.7 (35-45) H 03/18/19 14:01 ABG pCO2 43.0 mm Hg 03/19/19 04:43 POC ABG pO2 81 (80-105) 03/18/19 14:01 ABG pO2 116.2 mm Hg (80.0-90.0) H 03/19/19 04:43 POC ABG HCO3 23.9 (22-26 mml/L) 03/18/19 14:01 POC ABG Total CO2 25 (23-27mmol/L) 03/18/19 14:01 POC ABG O2 Sat 94 03/18/19 14:01 ABG O2 Saturation 98.0 % (95.0-99.0) 03/19/19 04:43 Abnormal lab findings: Abnormal Labs 03/10/19 03/10/19 03/10/19 13:16 13:16 14:38 WBC 0.8 L* RBC 3.35 L Hgb Hct MCV RDW 22.1 H Plt Count 78 L Lymph % (Auto) Lymph # Seg Neutrophils % Seg Neuts % (Manual) Lymphocytes % (Manual) 49.0 H Monocytes % (Manual) Eosinophils % (Manual) Nucleated RBC % Seg Neutrophils # Man 0.3 L Lymphocytes # (Manual) 0.4 L POC ABG pH ABG pH POC ABG pCO2 POC ABG pO2 ABG pO2 ABG HCO3 ABG Base Excess ABG Hemoglobin Oxyhemoglobin Sodium 147 H Potassium 5.4 H Chloride 111.8 H Carbon Dioxide BUN Creatinine 0.6 L Glucose POC Glucose Lactic Acid Calcium TIBC Ferritin AST 128 H ALT 79 H Alkaline Phosphatase 174 H Total Creatine Kinase CK-MB (CK-2) CK-MB (CK-2) Rel Index Troponin T Total Protein Albumin 2.4 L Urine WBC (Auto) 9.0 H Vancomycin Trough 03/10/19 03/10/19 03/11/19 21:22 23:36 07:29 WBC RBC Hgb Hct MCV RDW Plt Count Lymph % (Auto) Lymph # Seg Neutrophils % Seg Neuts % (Manual) Lymphocytes % (Manual) Monocytes % (Manual) Eosinophils % (Manual) Nucleated RBC % Seg Neutrophils # Man Lymphocytes # (Manual) POC ABG pH ABG pH POC ABG pCO2 POC ABG pO2 ABG pO2 ABG HCO3 ABG Base Excess ABG Hemoglobin Oxyhemoglobin Sodium 148 H Potassium 5.6 H Chloride 122.3 H Carbon Dioxide 20 L BUN Creatinine 0.6 L Glucose POC Glucose 65 L 112 H Lactic Acid Calcium TIBC Ferritin AST 102 H ALT 65 H Alkaline Phosphatase 134 H Total Creatine Kinase CK-MB (CK-2) CK-MB (CK-2) Rel Index Troponin T Total Protein 6.1 L Albumin 1.8 L Urine WBC (Auto) Vancomycin Trough 03/11/19 03/11/19 03/11/19 11:25 15:28 18:00 WBC 1.2 L* RBC Hgb Hct MCV RDW 22.1 H Plt Count 53 L Lymph % (Auto) Lymph # Seg Neutrophils % Seg Neuts % (Manual) 78.6 H Lymphocytes % (Manual) 9.5 L Monocytes % (Manual) 9.5 H Eosinophils % (Manual) Nucleated RBC % Seg Neutrophils # Man 0.9 L Lymphocytes # (Manual) 0.1 L POC ABG pH ABG pH POC ABG pCO2 POC ABG pO2 ABG pO2 ABG HCO3 ABG Base Excess ABG Hemoglobin Oxyhemoglobin Sodium Potassium Chloride Carbon Dioxide BUN Creatinine Glucose POC Glucose 117 H 118 H Lactic Acid Calcium TIBC Ferritin AST ALT Alkaline Phosphatase Total Creatine Kinase CK-MB (CK-2) CK-MB (CK-2) Rel Index Troponin T Total Protein Albumin Urine WBC (Auto) Vancomycin Trough 03/12/19 03/12/19 03/12/19 00:19 05:45 08:55 WBC 2.4 L RBC 3.33 L Hgb Hct MCV RDW 22.8 H Plt Count 58 L Lymph % (Auto) Lymph # Seg Neutrophils % Seg Neuts % (Manual) 93.0 H Lymphocytes % (Manual) 4.0 L Monocytes % (Manual) Eosinophils % (Manual) Nucleated RBC % 7.0 H Seg Neutrophils # Man Lymphocytes # (Manual) 0.1 L POC ABG pH ABG pH POC ABG pCO2 POC ABG pO2 ABG pO2 ABG HCO3 ABG Base Excess ABG Hemoglobin Oxyhemoglobin Sodium Potassium Chloride Carbon Dioxide BUN Creatinine Glucose POC Glucose 124 H 116 H Lactic Acid Calcium TIBC Ferritin AST ALT Alkaline Phosphatase Total Creatine Kinase CK-MB (CK-2) CK-MB (CK-2) Rel Index Troponin T Total Protein Albumin Urine WBC (Auto) Vancomycin Trough 03/12/19 03/13/19 03/13/19 08:55 00:18 03:48 WBC 2.7 L RBC 3.06 L Hgb 9.4 L Hct 29.4 L MCV RDW 23.1 H Plt Count 62 L Lymph % (Auto) Lymph # Seg Neutrophils % Seg Neuts % (Manual) 76.0 H Lymphocytes % (Manual) Monocytes % (Manual) Eosinophils % (Manual) Nucleated RBC % 11.0 H Seg Neutrophils # Man Lymphocytes # (Manual) 0.5 L POC ABG pH ABG pH POC ABG pCO2 POC ABG pO2 ABG pO2 ABG HCO3 ABG Base Excess ABG Hemoglobin Oxyhemoglobin Sodium Potassium 5.6 H Chloride 114.2 H Carbon Dioxide 21 L BUN Creatinine Glucose POC Glucose 119 H Lactic Acid Calcium TIBC Ferritin AST ALT Alkaline Phosphatase Total Creatine Kinase CK-MB (CK-2) CK-MB (CK-2) Rel Index Troponin T Total Protein Albumin Urine WBC (Auto) Vancomycin Trough 03/13/19 03/13/19 03/13/19 03:48 05:52 05:58 WBC RBC Hgb Hct MCV RDW Plt Count Lymph % (Auto) Lymph # Seg Neutrophils % Seg Neuts % (Manual) Lymphocytes % (Manual) Monocytes % (Manual) Eosinophils % (Manual) Nucleated RBC % Seg Neutrophils # Man Lymphocytes # (Manual) POC ABG pH ABG pH POC ABG pCO2 POC ABG pO2 ABG pO2 ABG HCO3 ABG Base Excess ABG Hemoglobin Oxyhemoglobin Sodium Potassium Chloride 112.7 H Carbon Dioxide 21 L BUN Creatinine Glucose 103 H POC Glucose 114 H Lactic Acid Calcium TIBC Ferritin AST ALT Alkaline Phosphatase Total Creatine Kinase CK-MB (CK-2) CK-MB (CK-2) Rel Index Troponin T Total Protein Albumin Urine WBC (Auto) Vancomycin Trough 39.7 H 03/13/19 03/13/19 03/14/19 12:12 18:00 00:17 WBC RBC Hgb Hct MCV RDW Plt Count Lymph % (Auto) Lymph # Seg Neutrophils % Seg Neuts % (Manual) Lymphocytes % (Manual) Monocytes % (Manual) Eosinophils % (Manual) Nucleated RBC % Seg Neutrophils # Man Lymphocytes # (Manual) POC ABG pH ABG pH POC ABG pCO2 POC ABG pO2 ABG pO2 ABG HCO3 ABG Base Excess ABG Hemoglobin Oxyhemoglobin Sodium Potassium Chloride Carbon Dioxide BUN Creatinine Glucose POC Glucose 116 H 132 H 130 H Lactic Acid Calcium TIBC Ferritin AST ALT Alkaline Phosphatase Total Creatine Kinase CK-MB (CK-2) CK-MB (CK-2) Rel Index Troponin T Total Protein Albumin Urine WBC (Auto) Vancomycin Trough 03/14/19 03/14/19 03/14/19 05:24 06:44 06:44 WBC 2.6 L RBC 3.00 L Hgb 9.2 L Hct 28.3 L MCV RDW 22.5 H Plt Count 44 L Lymph % (Auto) Lymph # Seg Neutrophils % Seg Neuts % (Manual) 75.0 H Lymphocytes % (Manual) Monocytes % (Manual) Eosinophils % (Manual) 5.0 H Nucleated RBC % 19.0 H Seg Neutrophils # Man Lymphocytes # (Manual) 0.4 L POC ABG pH ABG pH POC ABG pCO2 POC ABG pO2 ABG pO2 ABG HCO3 ABG Base Excess ABG Hemoglobin Oxyhemoglobin Sodium Potassium Chloride 110.2 H Carbon Dioxide 21 L BUN Creatinine 1.3 H Glucose POC Glucose 110 H Lactic Acid Calcium TIBC Ferritin AST 144 H ALT 90 H Alkaline Phosphatase 226 H Total Creatine Kinase CK-MB (CK-2) 8.6 H CK-MB (CK-2) Rel Index 7.1 H Troponin T 0.056 H D Total Protein Albumin 2.2 L Urine WBC (Auto) Vancomycin Trough 03/14/19 03/14/19 03/14/19 09:05 11:54 12:15 WBC RBC Hgb Hct MCV RDW Plt Count Lymph % (Auto) Lymph # Seg Neutrophils % Seg Neuts % (Manual) Lymphocytes % (Manual) Monocytes % (Manual) Eosinophils % (Manual) Nucleated RBC % Seg Neutrophils # Man Lymphocytes # (Manual) POC ABG pH 7.283 L 7.458 H ABG pH POC ABG pCO2 54.9 H 32.7 L POC ABG pO2 76 L ABG pO2 ABG HCO3 ABG Base Excess ABG Hemoglobin Oxyhemoglobin Sodium Potassium Chloride Carbon Dioxide BUN Creatinine Glucose POC Glucose Lactic Acid 2.10 H* Calcium TIBC Ferritin AST ALT Alkaline Phosphatase Total Creatine Kinase CK-MB (CK-2) CK-MB (CK-2) Rel Index Troponin T Total Protein Albumin Urine WBC (Auto) Vancomycin Trough 03/14/19 03/14/19 03/14/19 12:43 13:35 15:35 WBC RBC Hgb Hct MCV RDW Plt Count Lymph % (Auto) Lymph # Seg Neutrophils % Seg Neuts % (Manual) Lymphocytes % (Manual) Monocytes % (Manual) Eosinophils % (Manual) Nucleated RBC % Seg Neutrophils # Man Lymphocytes # (Manual) POC ABG pH ABG pH POC ABG pCO2 POC ABG pO2 ABG pO2 ABG HCO3 ABG Base Excess ABG Hemoglobin Oxyhemoglobin Sodium Potassium Chloride Carbon Dioxide BUN Creatinine Glucose POC Glucose 68 L Lactic Acid 2.10 H* 3.50 H* Calcium TIBC Ferritin AST ALT Alkaline Phosphatase Total Creatine Kinase CK-MB (CK-2) CK-MB (CK-2) Rel Index Troponin T Total Protein Albumin Urine WBC (Auto) Vancomycin Trough 03/14/19 03/14/19 03/14/19 17:34 17:46 17:55 WBC RBC Hgb Hct MCV RDW Plt Count Lymph % (Auto) Lymph # Seg Neutrophils % Seg Neuts % (Manual) Lymphocytes % (Manual) Monocytes % (Manual) Eosinophils % (Manual) Nucleated RBC % Seg Neutrophils # Man Lymphocytes # (Manual) POC ABG pH 7.241 L 7.244 L ABG pH POC ABG pCO2 50.4 H 50.1 H POC ABG pO2 156 H ABG pO2 ABG HCO3 ABG Base Excess ABG Hemoglobin Oxyhemoglobin Sodium Potassium Chloride Carbon Dioxide BUN Creatinine Glucose POC Glucose 49 L Lactic Acid Calcium TIBC Ferritin AST ALT Alkaline Phosphatase Total Creatine Kinase CK-MB (CK-2) CK-MB (CK-2) Rel Index Troponin T Total Protein Albumin Urine WBC (Auto) Vancomycin Trough 03/14/19 03/14/19 03/14/19 18:29 18:32 20:27 WBC RBC Hgb Hct MCV RDW Plt Count Lymph % (Auto) Lymph # Seg Neutrophils % Seg Neuts % (Manual) Lymphocytes % (Manual) Monocytes % (Manual) Eosinophils % (Manual) Nucleated RBC % Seg Neutrophils # Man Lymphocytes # (Manual) POC ABG pH ABG pH POC ABG pCO2 POC ABG pO2 ABG pO2 ABG HCO3 ABG Base Excess ABG Hemoglobin Oxyhemoglobin Sodium Potassium Chloride 112.6 H Carbon Dioxide 19 L BUN Creatinine 1.4 H Glucose 132 H POC Glucose 57 L 115 H Lactic Acid Calcium TIBC Ferritin AST ALT Alkaline Phosphatase Total Creatine Kinase CK-MB (CK-2) CK-MB (CK-2) Rel Index Troponin T Total Protein Albumin Urine WBC (Auto) Vancomycin Trough 03/14/19 03/14/19 03/15/19 23:47 Unknown 04:00 WBC RBC 2.77 L Hgb 8.5 L Hct 27.3 L MCV 98 H RDW 23.0 H Plt Count 27 L Lymph % (Auto) Lymph # Seg Neutrophils % Seg Neuts % (Manual) 75.0 H Lymphocytes % (Manual) 1.0 L Monocytes % (Manual) Eosinophils % (Manual) Nucleated RBC % 4.0 H Seg Neutrophils # Man Lymphocytes # (Manual) 0.1 L POC ABG pH ABG pH POC ABG pCO2 POC ABG pO2 ABG pO2 ABG HCO3 ABG Base Excess ABG Hemoglobin Oxyhemoglobin Sodium Potassium Chloride Carbon Dioxide BUN Creatinine Glucose POC Glucose 116 H Lactic Acid 3.30 H* Calcium TIBC Ferritin AST ALT Alkaline Phosphatase Total Creatine Kinase CK-MB (CK-2) CK-MB (CK-2) Rel Index Troponin T Total Protein Albumin Urine WBC (Auto) Vancomycin Trough 03/15/19 03/15/19 03/15/19 04:00 06:24 07:35 WBC RBC Hgb Hct MCV RDW Plt Count Lymph % (Auto) Lymph # Seg Neutrophils % Seg Neuts % (Manual) Lymphocytes % (Manual) Monocytes % (Manual) Eosinophils % (Manual) Nucleated RBC % Seg Neutrophils # Man Lymphocytes # (Manual) POC ABG pH 7.282 L ABG pH POC ABG pCO2 50.4 H POC ABG pO2 71 L ABG pO2 ABG HCO3 ABG Base Excess ABG Hemoglobin Oxyhemoglobin Sodium Potassium Chloride 112.1 H Carbon Dioxide 19 L BUN Creatinine 1.5 H Glucose 123 H POC Glucose 140 H Lactic Acid Calcium 8.2 L TIBC Ferritin AST ALT Alkaline Phosphatase Total Creatine Kinase CK-MB (CK-2) CK-MB (CK-2) Rel Index Troponin T Total Protein Albumin Urine WBC (Auto) Vancomycin Trough 03/15/19 03/15/19 03/16/19 11:47 23:25 04:33 WBC RBC Hgb Hct MCV RDW Plt Count Lymph % (Auto) Lymph # Seg Neutrophils % Seg Neuts % (Manual) Lymphocytes % (Manual) Monocytes % (Manual) Eosinophils % (Manual) Nucleated RBC % Seg Neutrophils # Man Lymphocytes # (Manual) POC ABG pH ABG pH 7.304 L POC ABG pCO2 POC ABG pO2 ABG pO2 174.4 H ABG HCO3 19.2 L ABG Base Excess -6.6 L ABG Hemoglobin 8.5 L Oxyhemoglobin Sodium Potassium Chloride Carbon Dioxide BUN Creatinine Glucose POC Glucose 161 H 139 H Lactic Acid Calcium TIBC Ferritin AST ALT Alkaline Phosphatase Total Creatine Kinase CK-MB (CK-2) CK-MB (CK-2) Rel Index Troponin T Total Protein Albumin Urine WBC (Auto) Vancomycin Trough 03/16/19 03/16/19 03/16/19 05:19 05:19 05:19 WBC RBC 2.92 L Hgb 8.9 L Hct 28.0 L MCV RDW 22.8 H Plt Count 42 L Lymph % (Auto) Lymph # Seg Neutrophils % Seg Neuts % (Manual) 84.0 H Lymphocytes % (Manual) 5.0 L Monocytes % (Manual) Eosinophils % (Manual) Nucleated RBC % Seg Neutrophils # Man 7.8 H Lymphocytes # (Manual) 0.5 L POC ABG pH ABG pH POC ABG pCO2 POC ABG pO2 ABG pO2 ABG HCO3 ABG Base Excess ABG Hemoglobin Oxyhemoglobin Sodium Potassium 5.2 H Chloride 114.0 H Carbon Dioxide 18 L BUN 22 H Creatinine 1.7 H Glucose 109 H POC Glucose Lactic Acid Calcium 8.0 L TIBC Ferritin AST ALT Alkaline Phosphatase Total Creatine Kinase 194 H CK-MB (CK-2) CK-MB (CK-2) Rel Index Troponin T Total Protein Albumin Urine WBC (Auto) Vancomycin Trough 03/16/19 03/16/19 03/16/19 05:51 12:19 17:42 WBC RBC Hgb Hct MCV RDW Plt Count Lymph % (Auto) Lymph # Seg Neutrophils % Seg Neuts % (Manual) Lymphocytes % (Manual) Monocytes % (Manual) Eosinophils % (Manual) Nucleated RBC % Seg Neutrophils # Man Lymphocytes # (Manual) POC ABG pH ABG pH POC ABG pCO2 POC ABG pO2 ABG pO2 ABG HCO3 ABG Base Excess ABG Hemoglobin Oxyhemoglobin Sodium Potassium Chloride Carbon Dioxide BUN Creatinine Glucose POC Glucose 123 H 134 H 130 H Lactic Acid Calcium TIBC Ferritin AST ALT Alkaline Phosphatase Total Creatine Kinase CK-MB (CK-2) CK-MB (CK-2) Rel Index Troponin T Total Protein Albumin Urine WBC (Auto) Vancomycin Trough 03/17/19 03/17/19 03/17/19 00:46 04:45 04:45 WBC RBC 2.42 L Hgb 7.5 L Hct 23.4 L MCV RDW 22.2 H Plt Count 37 L Lymph % (Auto) 6.2 L Lymph # 0.5 L Seg Neutrophils % 84.0 H Seg Neuts % (Manual) Lymphocytes % (Manual) Monocytes % (Manual) Eosinophils % (Manual) Nucleated RBC % Seg Neutrophils # Man Lymphocytes # (Manual) POC ABG pH ABG pH POC ABG pCO2 POC ABG pO2 ABG pO2 ABG HCO3 ABG Base Excess ABG Hemoglobin Oxyhemoglobin Sodium Potassium Chloride 115.4 H Carbon Dioxide 16 L BUN 27 H Creatinine 1.8 H Glucose 109 H POC Glucose 115 H Lactic Acid Calcium 7.9 L TIBC Ferritin AST ALT Alkaline Phosphatase Total Creatine Kinase CK-MB (CK-2) CK-MB (CK-2) Rel Index Troponin T Total Protein Albumin Urine WBC (Auto) Vancomycin Trough 03/17/19 03/17/19 03/17/19 05:00 06:05 11:15 WBC RBC Hgb Hct MCV RDW Plt Count Lymph % (Auto) Lymph # Seg Neutrophils % Seg Neuts % (Manual) Lymphocytes % (Manual) Monocytes % (Manual) Eosinophils % (Manual) Nucleated RBC % Seg Neutrophils # Man Lymphocytes # (Manual) POC ABG pH ABG pH 7.238 L POC ABG pCO2 POC ABG pO2 ABG pO2 114.7 H ABG HCO3 17.9 L ABG Base Excess -8.8 L ABG Hemoglobin 7.3 L Oxyhemoglobin Sodium Potassium Chloride Carbon Dioxide BUN Creatinine Glucose POC Glucose 124 H Lactic Acid Calcium TIBC 127 L Ferritin AST ALT Alkaline Phosphatase Total Creatine Kinase CK-MB (CK-2) CK-MB (CK-2) Rel Index Troponin T Total Protein Albumin Urine WBC (Auto) Vancomycin Trough 03/17/19 03/17/19 03/17/19 11:15 12:06 18:27 WBC RBC Hgb Hct MCV RDW Plt Count Lymph % (Auto) Lymph # Seg Neutrophils % Seg Neuts % (Manual) Lymphocytes % (Manual) Monocytes % (Manual) Eosinophils % (Manual) Nucleated RBC % Seg Neutrophils # Man Lymphocytes # (Manual) POC ABG pH ABG pH POC ABG pCO2 POC ABG pO2 ABG pO2 ABG HCO3 ABG Base Excess ABG Hemoglobin Oxyhemoglobin Sodium Potassium Chloride Carbon Dioxide BUN Creatinine Glucose POC Glucose 133 H 158 H Lactic Acid Calcium TIBC Ferritin 512.4 H AST ALT Alkaline Phosphatase Total Creatine Kinase CK-MB (CK-2) CK-MB (CK-2) Rel Index Troponin T Total Protein Albumin Urine WBC (Auto) Vancomycin Trough 03/17/19 03/18/19 03/18/19 23:30 04:00 05:45 WBC RBC 2.31 L Hgb 7.0 L Hct 22.0 L MCV RDW 22.2 H Plt Count 45 L Lymph % (Auto) Lymph # Seg Neutrophils % Seg Neuts % (Manual) 82.0 H Lymphocytes % (Manual) 12.0 L Monocytes % (Manual) Eosinophils % (Manual) 5.0 H Nucleated RBC % 1.0 H Seg Neutrophils # Man Lymphocytes # (Manual) 0.8 L POC ABG pH ABG pH POC ABG pCO2 POC ABG pO2 ABG pO2 113.7 H ABG HCO3 ABG Base Excess -3.0 L ABG Hemoglobin 7.0 L Oxyhemoglobin Sodium Potassium Chloride Carbon Dioxide BUN Creatinine Glucose POC Glucose 143 H Lactic Acid Calcium TIBC Ferritin AST ALT Alkaline Phosphatase Total Creatine Kinase CK-MB (CK-2) CK-MB (CK-2) Rel Index Troponin T Total Protein Albumin Urine WBC (Auto) Vancomycin Trough 03/18/19 03/18/19 03/18/19 05:48 05:50 14:01 WBC RBC Hgb Hct MCV RDW Plt Count Lymph % (Auto) Lymph # Seg Neutrophils % Seg Neuts % (Manual) Lymphocytes % (Manual) Monocytes % (Manual) Eosinophils % (Manual) Nucleated RBC % Seg Neutrophils # Man Lymphocytes # (Manual) POC ABG pH 7.299 L ABG pH POC ABG pCO2 48.7 H POC ABG pO2 ABG pO2 ABG HCO3 ABG Base Excess ABG Hemoglobin Oxyhemoglobin Sodium Potassium Chloride 109.9 H Carbon Dioxide BUN 28 H Creatinine 1.5 H Glucose 128 H POC Glucose 118 H Lactic Acid Calcium 7.6 L TIBC Ferritin AST ALT Alkaline Phosphatase Total Creatine Kinase CK-MB (CK-2) CK-MB (CK-2) Rel Index Troponin T Total Protein Albumin Urine WBC (Auto) Vancomycin Trough 03/18/19 03/19/19 03/19/19 23:53 04:43 06:02 WBC RBC Hgb Hct MCV RDW Plt Count Lymph % (Auto) Lymph # Seg Neutrophils % Seg Neuts % (Manual) Lymphocytes % (Manual) Monocytes % (Manual) Eosinophils % (Manual) Nucleated RBC % Seg Neutrophils # Man Lymphocytes # (Manual) POC ABG pH ABG pH 7.332 L POC ABG pCO2 POC ABG pO2 ABG pO2 116.2 H ABG HCO3 ABG Base Excess -3.3 L ABG Hemoglobin 7.3 L Oxyhemoglobin 94.9 L Sodium Potassium Chloride Carbon Dioxide BUN Creatinine Glucose POC Glucose 130 H 122 H Lactic Acid Calcium TIBC Ferritin AST ALT Alkaline Phosphatase Total Creatine Kinase CK-MB (CK-2) CK-MB (CK-2) Rel Index Troponin T Total Protein Albumin Urine WBC (Auto) Vancomycin Trough [facility] health notes reviewed: RT
[2019-03-19] MEDS: chlordiazePOXIDE 25 MG CAP PO SCH (15:32)
[2019-03-19] MEDS: FOLIC ACID 1 MG TAB PO SCH (15:32)
[2019-03-19] MEDS: FAMOTIDINE 20 MG TAB PO SCH (15:32)
[2019-03-19] MEDS: RIFAXIMIN 550 MG TAB PO SCH ×2 (15:39→21:17)
[2019-03-19] MEDS: MIDODRINE 5 MG TAB PO SCH (15:57)
[2019-03-19] MEDS: FLUTICASONE PROPIONATE NASAL SPRAY 16 GM NS SCH (16:00)
[2019-03-19] MEDS: THIAMINE 100 MG TAB PO SCH (16:02)
[2019-03-20] MEDS: INSULIN LISPRO 100 UNIT/ML SUB-Q SCH ×4 (00:16→19:44)
--- NOTE | 2019-03-20 01:48 | XRay Report ---
CHEST 1 VIEW 03/20/2019 2:00 AM INDICATION / CLINICAL INFORMATION: follow up respiratory failure. COMPARISON: 03/19/19 FINDINGS: SUPPORT DEVICES: Unchanged. HEART / MEDIASTINUM: Stable. LUNGS / PLEURA: Slight interval worsening of bilateral pulmonary edema and tiny bilateral pleural eff usions. No pneumothorax. ADDITIONAL FINDINGS: No significant additional findings. IMPRESSION: 1. Slight interval worsening. Signer Name: Giovany John MD Signed: 03/20/2019 2:44 AM Workstation Name: [id number]
[2019-03-20] MEDS ORDERED: POTASSIUM CHLORIDE 20 MEQ PACKET FEEDTUBE ONE (01:53)
[2019-03-20] MEDS: IPRATROPIUM/ALBUTEROL SULFATE 3 ML AMPUL.NEB IH SCH ×4 (03:04→19:41)
[2019-03-20 04:36] LABS: ABG Base Excess -1.7 mmol/L (-2.0-3.0); ABG HCO3 23.3 mmol/L (20.0-26.0); ABG Methemoglobin 0.4 % (0.0-1.5); ABG Oxygen Saturation 98.3 % (95.0-99.0); ABG PCO2 40.2 mm Hg; ABG PH 7.38 pH Units (7.350-7.450); ABG PO2 121.6 mm Hg (80.0-90.0)
[2019-03-20] MEDS: PIPERACIL/TAZOBACTA 4.5/NS 100 4.5 GM/100 ML VIAL IV SCH ×3 (06:08→21:09)
[2019-03-20] MEDS: MORPHINE 2 MG/1 ML INJ IV PRN (08:48)
[2019-03-20] MEDS: RIFAXIMIN 550 MG TAB PO SCH ×2 (10:22→21:09)
[2019-03-20] MEDS: FOLIC ACID 1 MG TAB PO SCH (10:22)
[2019-03-20] MEDS: chlordiazePOXIDE 25 MG CAP PO SCH (10:22)
[2019-03-20] MEDS: FAMOTIDINE 20 MG TAB PO SCH (10:22)
[2019-03-20] MEDS: FLUTICASONE PROPIONATE NASAL SPRAY 16 GM NS SCH (10:24)
[2019-03-20] MEDS: THIAMINE 100 MG TAB PO SCH (12:02)
--- NOTE | 2019-03-20 12:07 | Progress Note ---
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 ID consult appreciated KERRI is due to ATN and vasomotor nephropathy -monitor cr level, stable and improved VRE UTI, septic shock, sepsis POA abx per ID , off pressors since 03/17 thrombocytopenia likely 2/2 sepsis, stable Acute Metabolic encephalopathy with agitation - Probably due to the acute infection - head CT scan neg x 2, Acute on chronic Pancytopenia - continue to monitor levels - Oncology consulted Hypernatremia - probably 2/2 dehydration - improved on IV D5W Hyperkalemia - s/p kayexalate, resolved Hypoglycemia -On hypoglycemic protocol H/o CLD -Continue lactulose and rifaximin Nutrition Continue tube feeding DVT prophylaxis - On SCDs due to thrombocytopenia Disposition: Prognosis is guarded/poor Critical time spent: 35 mins History Interval history: Intubated and not sedated, , no vomiting, no fevers, no agitation, no seizures Hospitalist Physical - Physical exam Narrative exam: General.: No distress, intubated HEENT: Moist mucous membranes, extraocular muscles intact, no lymphadenopathy Neck: supple Cardiac: S1-S2 heard Lungs: clear to auscultation bilaterally Abdomen: soft , nontender, nondistended, bowel sounds positive Extremities: no edema clubbing or cyanosis Skin: no rash or lesions Neurologic: Intubated, not sedated. Minimally responsive. Grimaces to painful stimuli, does not open eyes, does not turn to voice, but squeezes her face to loud noise Psych: Intubated - Constitutional Vitals: Temp Pulse Resp BP Pulse Ox 96.2 F L 93 H 24 107/56 100 03/20/19 12:00 03/20/19 12:01 03/20/19 12:01 03/20/19 12:01 03/20/19 12:01 General appearance: Present: no acute distress, other (mildly agitated) Results - Labs CBC & Chem 7: 03/18/19 05:45 03/20/19 01:00 EST Labs: Laboratory Last Values WBC 6.8 K/mm3 (4.5-11.0) 03/18/19 05:45 RBC 2.31 M/mm3 (3.65-5.03) L 03/18/19 05:45 Hgb 7.0 gm/dl (10.1-14.3) L 03/18/19 05:45 Hct 22.0 % (30.3-42.9) L 03/18/19 05:45 MCV 95 fl (79-97) 03/18/19 05:45 MCH 31 pg (28-32) 03/18/19 05:45 MCHC 32 % (30-34) 03/18/19 05:45 RDW 22.2 % (13.2-15.2) H 03/18/19 05:45 Plt Count 45 K/mm3 (140-440) L 03/18/19 05:45 Lymph % (Auto) 6.2 % (13.4-35.0) L 03/17/19 04:45 [place] % (Auto) 6.4 % (0.0-7.3) 03/17/19 04:45 Eos % (Auto) 3.2 % (0.0-4.3) 03/17/19 04:45 Baso % (Auto) 0.2 % (0.0-1.8) 03/17/19 04:45 Lymph # 0.5 K/mm3 (1.2-5.4) L 03/17/19 04:45 [place] # 0.6 K/mm3 (0.0-0.8) 03/17/19 04:45 Eos # 0.3 K/mm3 (0.0-0.4) 03/17/19 04:45 Baso # 0.0 K/mm3 (0.0-0.1) 03/17/19 04:45 Add Manual Diff Complete 03/18/19 05:45 Total Counted 100 03/18/19 05:45 Seg Neutrophils % 84.0 % (40.0-70.0) H 03/17/19 04:45 Seg Neuts % (Manual) 82.0 % (40.0-70.0) H 03/18/19 05:45 Band Neutrophils % 0 % 03/18/19 05:45 Lymphocytes % (Manual) 12.0 % (13.4-35.0) L 03/18/19 05:45 Reactive Lymphs % (Man) 0 % 03/18/19 05:45 Monocytes % (Manual) 1.0 % (0.0-7.3) 03/18/19 05:45 Eosinophils % (Manual) 5.0 % (0.0-4.3) H 03/18/19 05:45 Basophils % (Manual) 0 % (0.0-1.8) 03/18/19 05:45 Metamyelocytes % 0 % 03/18/19 05:45 Myelocytes % 0 % 03/18/19 05:45 Promyelocytes % 0 % 03/18/19 05:45 Blast Cells % 0 % 03/18/19 05:45 Nucleated RBC % 1.0 % (0.0-0.9) H 03/18/19 05:45 Seg Neutrophils # 7.2 K/mm3 (1.8-7.7) 03/17/19 04:45 Seg Neutrophils # Man 5.6 K/mm3 (1.8-7.7) 03/18/19 05:45 Band Neutrophils # 0.0 K/mm3 03/18/19 05:45 Lymphocytes # (Manual) 0.8 K/mm3 (1.2-5.4) L 03/18/19 05:45 Abs React Lymphs (Man) 0.0 K/mm3 03/18/19 05:45 Monocytes # (Manual) 0.1 K/mm3 (0.0-0.8) 03/18/19 05:45 Eosinophils # (Manual) 0.3 K/mm3 (0.0-0.4) 03/18/19 05:45 Basophils # (Manual) 0.0 K/mm3 (0.0-0.1) 03/18/19 05:45 Metamyelocytes # 0.0 K/mm3 03/18/19 05:45 Myelocytes # 0.0 K/mm3 03/18/19 05:45 Promyelocytes # 0.0 K/mm3 03/18/19 05:45 Blast Cells # 0.0 K/mm3 03/18/19 05:45 Pathologist Review 03/18/19 05:45 WBC Morphology Not Reportable 03/16/19 05:19 Hypersegmented Neuts Not Reportable 03/18/19 05:45 Hyposegmented Neuts Not Reportable 03/18/19 05:45 Hypogranular Neuts Not Reportable 03/18/19 05:45 Smudge Cells Not Reportable 03/18/19 05:45 Toxic Granulation Not Reportable 03/18/19 05:45 Toxic Vacuolation Not Reportable 03/18/19 05:45 Dohle Bodies Not Reportable 03/18/19 05:45 Pelger-Huet Anomaly Not Reportable 03/18/19 05:45 Sheila Rods Not Reportable 03/18/19 05:45 Platelet Estimate Consistent w auto 03/18/19 05:45 Clumped Platelets Not Reportable 03/18/19 05:45 Plt Clumps, EDTA Not Reportable 03/18/19 05:45 Large Platelets Not Reportable 03/18/19 05:45 Giant Platelets Not Reportable 03/18/19 05:45 Platelet Satelliting Not Reportable 03/18/19 05:45 Plt Morphology Comment Not Reportable 03/18/19 05:45 RBC Morphology Not Reportable 03/18/19 05:45 Dimorphic RBCs Not Reportable 03/18/19 05:45 Polychromasia Not Reportable 03/18/19 05:45 Hypochromasia Not Reportable 03/18/19 05:45 Poikilocytosis Not Reportable 03/18/19 05:45 Anisocytosis 1+ 03/18/19 05:45 Microcytosis Rare 03/18/19 05:45 Macrocytosis Rare 03/18/19 05:45 Spherocytes Not Reportable 03/18/19 05:45 Pappenheimer Bodies Not Reportable 03/18/19 05:45 Sickle Cells Not Reportable 03/18/19 05:45 Target Cells Few 03/18/19 05:45 Tear Drop Cells Not Reportable 03/18/19 05:45 Ovalocytes Not Reportable 03/18/19 05:45 Helmet Cells Not Reportable 03/18/19 05:45 Ann-Racker[place] Bodies Not Reportable 03/18/19 05:45 [place] Rings Not Reportable 03/18/19 05:45 [place] Cells Not Reportable 03/18/19 05:45 Bite Cells Not Reportable 03/18/19 05:45 Crenated Cell Not Reportable 03/18/19 05:45 Elliptocytes Not Reportable 03/18/19 05:45 Acanthocytes (Spur) Not Reportable 03/18/19 05:45 Rouleaux Not Reportable 03/18/19 05:45 Hemoglobin C Crystals Not Reportable 03/18/19 05:45 Schistocytes Not Reportable 03/18/19 05:45 Malaria parasites Not Reportable 03/18/19 05:45 [place] Bodies Not Reportable 03/18/19 05:45 Hem Pathologist Commnt Sent to pathology 03/18/19 05:45 POC ABG pH 7.316 (7.35-7.45) L 03/19/19 15:33 ABG pH 7.380 pH Units (7.350-7.450) 03/20/19 04:27 POC ABG pCO2 45.7 (35-45) H 03/19/19 15:33 ABG pCO2 40.2 mm Hg 03/20/19 04:27 POC ABG pO2 100 (80-105) 03/19/19 15:33 ABG pO2 121.6 mm Hg (80.0-90.0) H 03/20/19 04:27 POC ABG HCO3 23.3 (22-26 mml/L) 03/19/19 15:33 ABG HCO3 23.3 mmol/L (20.0-26.0) 03/20/19 04:27 POC ABG Total CO2 25 (23-27mmol/L) 03/19/19 15:33 POC ABG O2 Sat 97 03/19/19 15:33 ABG O2 Saturation 98.3 % (95.0-99.0) 03/20/19 04:27 ABG O2 Content 9.9 (0.0-44) 03/20/19 04:27 POC ABG Base Excess -3 ((-2) - (+3)mmol/L) 03/19/19 15:33 ABG Base Excess -1.7 mmol/L (-2.0-3.0) 03/20/19 04:27 ABG Hemoglobin 7.1 gm/dl (12.0-16.0) L 03/20/19 04:27 ABG Carboxyhemoglobin 2.5 % (0.0-5.0) 03/20/19 04:27 ABG Methemoglobin 0.4 % (0.0-1.5) 03/20/19 04:27 Oxyhemoglobin 95.5 % (95.0-99.0) 03/20/19 04:27 FiO2 25 % 03/20/19 04:27 Sodium 145 mmol/L (137-145) 03/20/19 01:00 EST Potassium 3.4 mmol/L (3.6-5.0) L 03/20/19 01:00 EST Chloride 111.7 mmol/L (98-107) H 03/20/19 01:00 EST Carbon Dioxide 23 mmol/L (22-30) 03/20/19 01:00 EST Anion Gap 14 mmol/L 03/20/19 01:00 EST BUN 29 mg/dL (7-17) H 03/20/19 01:00 EST Creatinine 1.2 mg/dL (0.7-1.2) 03/20/19 01:00 EST Estimated GFR 54 ml/min 03/20/19 01:00 EST BUN/Creatinine Ratio 24 % 03/20/19 01:00 EST Glucose 94 mg/dL (65-100) 03/20/19 01:00 EST POC Glucose 97 (70-105) 03/20/19 05:34 Hemoglobin A1c 4.6 % (4-6) 03/10/19 13:16 Lactic Acid 1.50 mmol/L (0.7-2.0) 03/15/19 13:15 Calcium 8.0 mg/dL (8.4-10.2) L 03/20/19 01:00 EST Iron 81 ug/dL (37-170) 03/17/19 11:15 TIBC 127 mcg/dL (250-450) L 03/17/19 11:15 Ferritin 512.4 ng/mL (13.0-400.0) H 03/17/19 11:15 Total Bilirubin 0.50 mg/dL (0.1-1.2) 03/14/19 06:44 AST 144 units/L (5-40) H 03/14/19 06:44 ALT 90 units/L (7-56) H 03/14/19 06:44 Alkaline Phosphatase 226 units/L (35-129) H 03/14/19 06:44 Ammonia 54.0 umol/L (25-60) 03/11/19 07:29 Total Creatine Kinase 194 units/L (30-135) H 03/16/19 05:19 CK-MB (CK-2) 8.6 ng/mL (0.0-4.0) H 03/14/19 06:44 CK-MB (CK-2) Rel Index 7.1 (0-4) H 03/14/19 06:44 Troponin T 0.056 ng/mL (0.00-0.029) H D 03/14/19 06:44 Total Protein 6.7 g/dL (6.3-8.2) 03/14/19 06:44 Albumin 2.2 g/dL (3.9-5) L 03/14/19 06:44 Albumin/Globulin Ratio 0.5 % 03/14/19 06:44 Triglycerides 62 mg/dL (2-149) 03/14/19 06:44 Cholesterol 133 mg/dL (50-199) 03/14/19 06:44 LDL Cholesterol Direct 89 mg/dL (50-130) 03/14/19 06:44 HDL Cholesterol 43 mg/dL (40-59) 03/14/19 06:44 Cholesterol/HDL Ratio 3.09 % 03/14/19 06:44 Urine Color Straw (Yellow) 03/10/19 14:38 Urine Turbidity Clear (Clear) 03/10/19 14:38 Urine pH 7.0 (5.0-7.0) 03/10/19 14:38 Ur Specific [place] 1.009 (1.003-1.030) 03/10/19 14:38 Urine Protein <15 mg/dl mg/dL (Negative) 03/10/19 14:38 Urine Glucose (UA) Neg mg/dL (Negative) 03/10/19 14:38 Urine Ketones Neg mg/dL (Negative) 03/10/19 14:38 Urine Blood Neg (Negative) 03/10/19 14:38 Urine Nitrite Neg (Negative) 03/10/19 14:38 Urine Bilirubin Neg (Negative) 03/10/19 14:38 Urine Urobilinogen < 2.0 mg/dL (<2.0) 03/10/19 14:38 Ur Leukocyte Esterase Sm (Negative) 03/10/19 14:38 Urine WBC (Auto) 9.0 /HPF (0.0-6.0) H 03/10/19 14:38 Urine RBC (Auto) 2.0 /HPF (0.0-6.0) 03/10/19 14:38 U Epithel Cells (Auto) 1.0 /HPF (0-13.0) 03/10/19 14:38 Urine Bacteria (Auto) 2+ /HPF (Negative) 03/10/19 14:38 Urine Mucus Few /HPF 03/10/19 14:38 Vancomycin Trough 39.7 ug/mL (5.0-20.0) H 03/13/19 05:58 Random Vancomycin 27.6 ug/mL (0-40.0) 03/14/19 05:44 Active Medications - Current Medications Current Medications: Generic Name Dose Route Start Last Admin Trade Name Freq PRN Reason Stop Dose Admin Acetaminophen 650 mg 03/10/19 17:46 Tylenol PO Q4H PRN Pain MILD(1-3)/Fever >100.5/GUERRERO Albuterol 2.5 mg 03/11/19 03:52 Proventil IH TID PRN Wheezing Albuterol/Ipratropium 1 ampul 03/11/19 08:00 03/20/19 09:36 Duoneb *Not For Prn Use* IH 1 ampul Q6HRT CONNIE Administration Lipase/Protease/Amylase 1 each 03/14/19 13:25 Pancreazmarti Sahni 10,500 Unit FEEDTUBE PRN PRN For Clogged Feeding Tube Chlordiazepoxide HCl 25 mg 03/11/19 10:00 03/20/19 10:22 Librium PO 25 mg DAILY CONNIE Administration Dextrose 50 ml 03/10/19 22:27 03/14/19 17:55 D50w (25gm) Syringe IV 50 ml Q30MIN PRN Administration Hypoglycemia Famotidine 20 mg 03/15/19 10:00 03/20/19 10:22 Pepcid PO 20 mg DAILY CONNIE Administration Fluticasone Propionate 50 mcg 03/11/19 10:00 03/20/19 10:24 Flonase NS Not Given QDAY CONNIE Folic Acid 1 mg 03/11/19 10:00 03/20/19 10:22 Folvite PO 1 mg QDAY CONNIE Administration Haloperidol 0.5 mg 03/11/19 03:52 03/12/19 09:32 Haldol PO 0.5 mg Q6H PRN Administration Agitation Hydrophilic Ointment 1 applic 03/14/19 06:51 Vaseline Lip Therapy TP Q2HR PRN Dry Lips Propofol 1,000 mg in 100 mls @ 2.587 mls/hr 03/14/19 07:00 03/14/19 12:00 Diprivan 10 Mg/Ml IV 0 mcg/kg/min TITR CONNIE 0 mls/hr Titration Protocol 5 MCG/KG/MIN Fentanyl Citrate 2,000 mcg in 100 mls @ 4.312 mls/hr 03/14/19 11:00 03/18/19 21:00 Fentanyl Drip Premix IV 2 mcg/kg/hr TITR CONNIE 8.623 mls/hr Titration Protocol 1 MCG/KG/HR Vasopressin 20 unit/ Sodium 101 mls @ 9.09 mls/hr 03/14/19 14:00 03/18/19 1 2:30 Chloride IV Infused TITR CONNIE Titration Protocol 0.03 UNITS/MIN Dopamine HCl/Dextrose 800 mg in 250 mls @ 3.234 mls/hr 03/14/19 22:00 03/18/19 08:45 Intropin Drip 800 Mg/D5w 250 Ml IV 0 mcg/kg/min TITR CONNIE 0 mls/hr Titration Protocol 2 MCG/KG/MIN Sodium Chloride 500 mls @ 15 mls/hr 03/17/19 20:00 Nacl 0.9% 500 Ml IV PRN CONNIE Piperacillin Sod/Tazobactam Sod 4.5 gm in 100 mls @ 200 mls/hr 03/18/19 22:00 03/20/19 06:08 Zosyn/Ns 4.5gm/100ml IV 200 mls/hr Q8HR [facility] Administration Protocol Insulin Human Lispro 0 unit 03/11/19 00:00 03/20/19 12:03 Humalog SUB-Q Not Given Q6HR [facility] Protocol Morphine Sulfate 2 mg 03/10/19 17:56 03/20/19 08:48 Morphine IV 2 mg Q4H PRN Administration Pain, Moderate (4-6) Multi-Ingred Cream/Lotion/Oil/Oint 1 applic 03/14/19 06:51 03/20/19 10:22 Artificial Tears Ophth Oint OU 0.35 applic Q4HR PRN Administration Dry Eye(s) Ondansetron HCl 4 mg 03/10/19 17:46 03/11/19 05:04 Zofran IV 4 mg Q8H PRN Administration Nausea And Vomiting Rifaximin 550 mg 03/11/19 10:00 03/20/19 10:22 Xifaxan PO 550 mg BID CONNIE Administration Simple Syrup 15 ml 03/14/19 13:25 Simple Syrup FEEDTUBE PRN PRN Hypoglycemia Simple Syrup 30 ml 03/14/19 13:25 Simple Syrup FEEDTUBE PRN PRN Hypoglycemia Sodium Bicarbonate 325 mg 03/14/19 13:25 Sodium Bicarbonate FEEDTUBE PRN PRN For Clogged Feeding Tube Sodium Chloride 10 ml 03/10/19 22:00 03/20/19 11:56 Sodium Chloride Flush Syringe 10 Ml IV Not Given BID CONNIE Sodium Chloride 10 ml 03/10/19 17:46 03/13/19 22:50 Sodium Chloride Flush Syringe 10 Ml IV 10 ml PRN PRN Administration LINE FLUSH Thiamine HCl 100 mg 03/11/19 10:00 03/20/19 12:02 Vitamin B-1 PO Not Given QDAY CONNIE Nutrition/Malnutrition Assess - Dietary Evaluation Nutrition/Malnutrition Findings: Nutrition Notes Start: 03/11/19 10:01 Freq: Status: Active Protocol: Document 03/17/19 11:08 AP (Rec: 03/17/19 11:33 AP [email or web address]) Co-Sign 03/17/19 11:08 LM Nutrition Notes Need for Assessment generated from: MD Order Initial or Follow up Reassessment Current Diagnosis COPD,Decubitus(Pressure Ulcer) ,Hypertension Other Pertinent Diagnosis AMS/nonverbal, Hep C, Anemia, Renal stones Current Diet Vital AF 1.2 at 55ml/hr Labs/Tests Reviewed Pertinent Medications Reviewed Height 5 ft 3 in Weight 96.5 kg [place] Body Weight (kg) 52.27 BMI 37.7 Weight Status Obese Subjective/Other Information F/U for TF rate/tolerance. Vital AF 1.2 running at 55ml/ hr. Percent of energy/protein needs met: 93%/94% Minimum of two criteria No #1 Nutrition Diagnosis Inadequate oral intake Diagnosis Progress(for reassessment Continues documentation) Is patient on ventilator? Yes Is Patient Ambulatory and/or Out of Bed No REE-([facility]-confined to bed) 1774.128 Calculation Used for Recommendations [facility] Additional Notes Protein: >105 g (>2g/kg IBW 52 .27 kg) Fluids: 1 ml/kcal or per MD Nutrition Intervention Change Diet Order: TF Nutrition Support: Vital AF 1.2 at 55ml/hr Flush 100ml q4h Kcal 1,584 Protein (gm) 99 Fluid (mL) 1,071 Goal #1 TF tolerance Goal #2 TF continue to meet at least 80% of estimated energy and protein needs. Anticipated Discharge Needs: unable to determine at this time Follow-Up By: 03/24/19 Additional Comments F/U for TF tolerance/rate.
--- NOTE | 2019-03-20 13:25 | Progress Note ---
Assessment and Plan Cultures: 03/10 UCx - VRE faecim 03/10 BCx - NGTD 03/14 BCX - NGTD A/P: 68 yo F PMHx hepatitis C, Dm2, many other comorbidities admitted with altered mental status, possible secondary to VRE UTI: 1. VRE UTI - given worsening thrombocytopenia would treat with daptomycin. Would also ensure steen catheter is changed prior to cessation of antibiotics. 2. Hepatitis C 3. DM2 - tight glycemic control for wound healing 4. Hypoxic respiratory failure secondary to aspiration pneumonia - Continue pip- david for now, expect 5-7 day course pending clinical improvement. Recs: - completed daptomycin yesterday - continue pip-david 4.5g q6h. expect 5-7 day course depending on clinical improvement. Dr. Regis castillo tomorrow. Kyle Giron MD, FACP [facility] ([facility]) C: [phone] O: [phone] F: [phone] Subjective Date of service: 03/20/19 Principal diagnosis: Severe sepsis with shock; Ac. hypoxemic resp failure; cardiac arrest; PNA Interval history: No fever. On the vent. History and ROS are limited. Objective - Exam Narrative Exam: Physical Exam: Constitutional: sedated, intubated Head, Ears, Nose: Normocephalic, atraumatic. External ears, nose normal Eyes: Conjunctivae/corneas clear. No icterus. No ptosis. Neck: intubated, exam limited Oral: intubated Cardiovascular: S1, S2 normal. Respiratory: Good air entry, clear to auscultation bilaterally GI: Soft, non-tender; bowel sounds normal. No peritoneal signs Musculoskeletal: No pedal edema, no cyanosis. Skin: No rash or abscess Hem/Lymphatic: No palpable cervical or supraclavicular nodes. No lymphangitis Psych: no agitation Neurological: sedated, intubated, on vent - Constitutional Vitals: Vital Signs Temp Pulse Resp BP Pulse Ox 96.2 F L 92 H 30 H 102/57 100 03/20/19 12:11 03/20/19 13:00 03/20/19 13:00 03/20/19 13:00 03/20/19 13:00 Temperature -Last 24 Hours Temperature 96.2 F Temperature 96.2 F Temperature 96.0 F Temperature 96 F Temperature 97 F Temperature 97.3 F Temperature 96.0 F Temperature 97.9 F - Labs CBC & Chem 7: 03/18/19 05:45 03/20/19 01:00 EST Labs: Abnormal lab results 03/19/19 03/19/19 03/19/19 Range/Units 12:16 15:33 23:44 POC ABG pH 7.316 L (7.35-7.45) POC ABG pCO2 45.7 H (35-45) ABG pO2 (80.0-90.0) mm Hg ABG Hemoglobin (12.0-16.0) gm/dl Potassium (3.6-5.0) mmol/L Chloride (98-107) mmol/L BUN (7-17) mg/dL POC Glucose 132 H 106 H (70-105) Calcium (8.4-10.2) mg/dL 03/20/19 03/20/19 Range/Units 01:00 EST 04:27 POC ABG pH (7.35-7.45) POC ABG pCO2 (35-45) ABG pO2 121.6 H (80.0-90.0) mm Hg ABG Hemoglobin 7.1 L (12.0-16.0) gm/dl Potassium 3.4 L (3.6-5.0) mmol/L Chloride 111.7 H (98-107) mmol/L BUN 29 H (7-17) mg/dL POC Glucose (70-105) Calcium 8.0 L (8.4-10.2) mg/dL - Imaging and cardiology Chest x-ray: report reviewed, image reviewed (diffuse bilateral infiltrates)
--- NOTE | 2019-03-20 13:30 | Progress Note ---
Assessment and Plan Severe sepsis with septic shock Cardiac arrest-asystole with ROSC Acute hypoxic respiratory failure on MVS Lactic acidosis- multifactorial ( resolved) Acute toxic- metabolic encephalopathy Aspiration pneumonia VRE UTI Hypernatremia Thrombocytopenia h/o Cirrhosis h/o Alcohol abuse disorder KERRI Hyperkalemia -Continue to monitor off vasopressors -Discussions re trach and PEG -VAP bundle addressed -Aspiration precautions, HOB>40 degrees - Lung protective strategies -Wean FIO2 for O2 sats>90% , once FIO2 is down to 50%, wean PEEP -CXR, ABG in am -CBC, BMP in am -Avoid nephrotoxins and adjust all medications fro GFR and CrCL -Daily assessment fro weaning readiness -Continue tube feedings -Agitation management, Pain management -Antibiotics per ID recommendations -Continue contact isolation - Continue VTE prophylaxis with heparin -Stress ulcer prophylaxis - Accuchecks with glycemic control for SSI (While critically ill target blood glucose of 140-180 mg/dL; avoid hypoglycemia) - Continue mobility protocol for pressure ulcer prevention - Continue to monitor hemodynamics closely -Monitor electrolyte profile closely and replete as indicated -Chronic home medications, continue as clinically indicated CONDITION: CRITICAL PROGNOSIS: GUARDED CODE STATUS: FULL CODE The high probability of a clinically significant, sudden or life-threatening deterioration of the [respiratory, cardiovascular, neurology, hematology] system(s) required my full and direct attention, intervention and personal management. The aggregate critical care time was [35] minutes without overlap. T norma includes spent on; [x] Data Review and interpretation [x] Patient assessment and monitoring of vital signs [x] Documentation [x] Medication orders and management Subjective Date of service: 03/20/19 Principal diagnosis: Severe sepsis with shock; Ac. hypoxemic resp failure; cardiac arrest; PNA Interval history: Follow up for severe sepsis with septic shock; acute hypoxemic respiratory failure on MVS; s/p cardiac arrest with ROSC; VRE UTI; aspiration pneumonia; Patient seen and examined. Vitals, labs, medications, chart and imaging reviewed. Events overnight were managed remotely.No fevers, no vomiting; weaning supplemental oxygen Remains critically ill on full ventilatory support; Tolerates some SBT Objective Vital Signs - 12hr 03/20/19 03/20/19 03/20/19 02:00 02:30 03:00 Temperature Pulse Rate 68 70 76 Pulse Rate [ Anterior Throughout] Pulse Rate [ From Monitor] Respiratory 14 10 L 17 Rate Respiratory Rate [Anterior Throughout] Respiratory Rate [ Generalized] Blood Pressure 98/57 101/58 94/63 O2 Sat by Pulse 100 100 100 Oximetry 03/20/19 03/20/19 03/20/19 03:04 03:30 04:00 Temperature 97 F L Pulse Rate 70 76 Pulse Rate [ 79 Anterior Throughout] Pulse Rate [ 76 From Monitor] Respiratory 16 26 H Rate Respiratory 13 Rate [Anterior Throughout] Respiratory Rate [ Generalized] Blood Pressure 100/62 92/60 O2 Sat by Pulse 100 100 Oximetry 03/20/19 03/20/19 03/20/19 04:07 04:31 05:01 Temperature Pulse Rate 70 80 83 Pulse Rate [ Anterior Throughout] Pulse Rate [ From Monitor] Respiratory 19 15 Rate Respiratory Rate [Anterior Throughout] Respiratory Rate [ Generalized] Blood Pressure 92/60 123/81 120/95 O2 Sat by Pulse 100 100 100 Oximetry 03/20/19 03/20/19 03/20/19 05:30 06:00 06:30 Temperature Pulse Rate 71 75 74 Pulse Rate [ Anterior Throughout] Pulse Rate [ From Monitor] Respiratory 12 15 15 Rate Respiratory Rate [Anterior Throughout] Respiratory Rate [ Generalized] Blood Pressure 92/52 100/43 110/44 O2 Sat by Pulse 100 100 100 Oximetry 03/20/19 03/20/19 03/20/19 07:00 07:30 08:00 Temperature 96.0 F L Pulse Rate 74 87 85 Pulse Rate [ Anterior Throughout] Pulse Rate [ 76 From Monitor] Respiratory 13 18 17 Rate Respiratory Rate [Anterior Throughout] Respiratory Rate [ Generalized] Blood Pressure 107/54 98/57 92/65 O2 Sat by Pulse 100 100 100 Oximetry 03/20/19 03/20/19 03/20/19 08:30 09:00 09:25 Temperature Pulse Rate 79 78 82 Pulse Rate [ Anterior Throughout] Pulse Rate [ From Monitor] Respiratory 23 19 27 H Rate Respiratory Rate [Anterior Throughout] Respiratory Rate [ Generalized] Blood Pressure 99/63 88/49 100/53 O2 Sat by Pulse 100 100 100 Oximetry 03/20/19 03/20/19 03/20/19 09:30 10:00 10:30 Temperature Pulse Rate 83 92 H 93 H Pulse Rate [ Anterior Throughout] Pulse Rate [ From Monitor] Respiratory 29 H 19 20 Rate Respiratory Rate [Anterior Throughout] Respiratory 25 H Rate [ Generalized] Blood Pressure 100/53 103/55 95/50 O2 Sat by Pulse 100 100 100 Oximetry 03/20/19 03/20/19 03/20/19 11:00 11:30 12:00 Temperature 96.2 F L Pulse Rate 94 H 91 H 88 Pulse Rate [ Anterior Throughout] Pulse Rate [ 76 From Monitor] Respiratory 24 25 H 26 H Rate Respiratory Rate [Anterior Throughout] Respiratory Rate [ Generalized] Blood Pressure 101/55 96/50 O2 Sat by Pulse 100 100 100 Oximetry 03/20/19 03/20/19 03/20/19 12:01 12:11 12:30 Temperature 96.2 F L Pulse Rate 93 H 93 H Pulse Rate [ Anterior Throughout] Pulse Rate [ From Monitor] Respiratory 24 20 Rate Respiratory Rate [Anterior Throughout] Respiratory Rate [ Generalized] Blood Pressure 107/56 95/57 O2 Sat by Pulse 100 100 Oximetry 03/20/19 13:00 Temperature Pulse Rate 92 H Pulse Rate [ Anterior Throughout] Pulse Rate [ From Monitor] Respiratory 30 H Rate Respiratory Rate [Anterior Throughout] Respiratory Rate [ Generalized] Blood Pressure 102/57 O2 Sat by Pulse 100 Oximetry Constitutional: appears uncomfortable, other (elderly looking obese AAF with mild respiratory distress on MVS ) Eyes: non-icteric ENT: oropharynx moist, other (ETT at 23cm at the lip, small bowel feeding tube in nares) Neck: supple, no lymphadenopathy, no JVD Effort: mildly labored Ascultation: Bilateral: diminished breath sounds, rales, rhonchi Percussion: Bilateral: not dull Cardiovascular: regular rate and rhythm, other (S1, S2, no murmurs, gallops or r ubs rhythm strip shows accelerated junctional ) Gastrointestinal: normoactive bowel sounds, soft, non-tender, non-distended, other (No HSM) Integumentary: normal Extremities: no cyanosis, no edema, pulses normal, no ischemia or petechiae Neurologic: non-focal exam, pupils equal and round, other (awake and alert, tracks voice , moves all extremities) Psychiatric: other (unable to assess) CBC and BMP: 03/29/19 05:00 03/29/19 05:00 ABG, PT/INR, D-dimer: ABG POC ABG pH 7.316 (7.35-7.45) L 03/19/19 15:33 ABG pH 7.380 pH Units (7.350-7.450) 03/20/19 04:27 POC ABG pCO2 45.7 (35-45) H 03/19/19 15:33 ABG pCO2 40.2 mm Hg 03/20/19 04:27 POC ABG pO2 100 (80-105) 03/19/19 15:33 ABG pO2 121.6 mm Hg (80.0-90.0) H 03/20/19 04:27 POC ABG HCO3 23.3 (22-26 mml/L) 03/19/19 15:33 POC ABG Total CO2 25 (23-27mmol/L) 03/19/19 15:33 POC ABG O2 Sat 97 03/19/19 15:33 ABG O2 Saturation 98.3 % (95.0-99.0) 03/20/19 04:27 Abnormal lab findings: Abnormal Labs 03/10/19 03/10/19 03/10/19 13:16 13:16 14:38 WBC 0.8 L* RBC 3.35 L Hgb Hct MCV RDW 22.1 H Plt Count 78 L Lymph % (Auto) Lymph # Seg Neutrophils % Seg Neuts % (Manual) Lymphocytes % (Manual) 49.0 H Monocytes % (Manual) Eosinophils % (Manual) Nucleated RBC % Seg Neutrophils # Man 0.3 L Lymphocytes # (Manual) 0.4 L POC ABG pH ABG pH POC ABG pCO2 POC ABG pO2 ABG pO2 ABG HCO3 ABG Base Excess ABG Hemoglobin Oxyhemoglobin Sodium 147 H Potassium 5.4 H Chloride 111.8 H Carbon Dioxide BUN Creatinine 0.6 L Glucose POC Glucose Lactic Acid Calcium TIBC Ferritin AST 128 H ALT 79 H Alkaline Phosphatase 174 H Total Creatine Kinase CK-MB (CK-2) CK-MB (CK-2) Rel Index Troponin T Total Protein Albumin 2.4 L Urine WBC (Auto) 9.0 H Vancomycin Trough 03/10/19 03/10/19 03/11/19 21:22 23:36 07:29 WBC RBC Hgb Hct MCV RDW Plt Count Lymph % (Auto) Lymph # Seg Neutrophils % Seg Neuts % (Manual) Lymphocytes % (Manual) Monocytes % (Manual) Eosinophils % (Manual) Nucleated RBC % Seg Neutrophils # Man Lymphocytes # (Manual) POC ABG pH ABG pH POC ABG pCO2 POC ABG pO2 ABG pO2 ABG HCO3 ABG Base Excess ABG Hemoglobin Oxyhemoglobin Sodium 148 H Potassium 5.6 H Chloride 122.3 H Carbon Dioxide 20 L BUN Creatinine 0.6 L Glucose POC Glucose 65 L 112 H Lactic Acid Calcium TIBC Ferritin AST 102 H ALT 65 H Alkaline Phosphatase 134 H Total Creatine Kinase CK-MB (CK-2) CK-MB (CK-2) Rel Index Troponin T Total Protein 6.1 L Albumin 1.8 L Urine WBC (Auto) Vancomycin Trough 03/11/19 03/11/19 03/11/19 11:25 15:28 18:00 WBC 1.2 L* RBC Hgb Hct MCV RDW 22.1 H Plt Count 53 L Lymph % (Auto) Lymph # Seg Neutrophils % Seg Neuts % (Manual) 78.6 H Lymphocytes % (Manual) 9.5 L Monocytes % (Manual) 9.5 H Eosinophils % (Manual) Nucleated RBC % Seg Neutrophils # Man 0.9 L Lymphocytes # (Manual) 0.1 L POC ABG pH ABG pH POC ABG pCO2 POC ABG pO2 ABG pO2 ABG HCO3 ABG Base Excess ABG Hemoglobin Oxyhemoglobin Sodium Potassium Chloride Carbon Dioxide BUN Creatinine Glucose POC Glucose 117 H 118 H Lactic Acid Calcium TIBC Ferritin AST ALT Alkaline Phosphatase Total Creatine Kinase CK-MB (CK-2) CK-MB (CK-2) Rel Index Troponin T Total Protein Albumin Urine WBC (Auto) Vancomycin Trough 03/12/19 03/12/19 03/12/19 00:19 05:45 08:55 WBC 2.4 L RBC 3.33 L Hgb Hct MCV RDW 22.8 H Plt Count 58 L Lymph % (Auto) Lymph # Seg Neutrophils % Seg Neuts % (Manual) 93.0 H Lymphocytes % (Manual) 4.0 L Monocytes % (Manual) Eosinophils % (Manual) Nucleated RBC % 7.0 H Seg Neutrophils # Man Lymphocytes # (Manual) 0.1 L POC ABG pH ABG pH POC ABG pCO2 POC ABG pO2 ABG pO2 ABG HCO3 ABG Base Excess ABG Hemoglobin Oxyhemoglobin Sodium Potassium Chloride Carbon Dioxide BUN Creatinine Glucose POC Glucose 124 H 116 H Lactic Acid Calcium TIBC Ferritin AST ALT Alkaline Phosphatase Total Creatine Kinase CK-MB (CK-2) CK-MB (CK-2) Rel Index Troponin T Total Protein Albumin Urine WBC (Auto) Vancomycin Trough 03/12/19 03/13/19 03/13/19 08:55 00:18 03:48 WBC 2.7 L RBC 3.06 L Hgb 9.4 L Hct 29.4 L MCV RDW 23.1 H Plt Count 62 L Lymph % (Auto) Lymph # Seg Neutrophils % Seg Neuts % (Manual) 76.0 H Lymphocytes % (Manual) Monocytes % (Manual) Eosinophils % (Manual) Nucleated RBC % 11.0 H Seg Neutrophils # Man Lymphocytes # (Manual) 0.5 L POC ABG pH ABG pH POC ABG pCO2 POC ABG pO2 ABG pO2 ABG HCO3 ABG Base Excess ABG Hemoglobin Oxyhemoglobin Sodium Potassium 5.6 H Chloride 114.2 H Carbon Dioxide 21 L BUN Creatinine Glucose POC Glucose 119 H Lactic Acid Calcium TIBC Ferritin AST ALT Alkaline Phosphatase Total Creatine Kinase CK-MB (CK-2) CK-MB (CK-2) Rel Index Troponin T Total Protein Albumin Urine WBC (Auto) Vancomycin Trough 03/13/19 03/13/19 03/13/19 03:48 05:52 05:58 WBC RBC Hgb Hct MCV RDW Plt Count Lymph % (Auto) Lymph # Seg Neutrophils % Seg Neuts % (Manual) Lymphocytes % (Manual) Monocytes % (Manual) Eosinophils % (Manual) Nucleated RBC % Seg Neutrophils # Man Lymphocytes # (Manual) POC ABG pH ABG pH POC ABG pCO2 POC ABG pO2 ABG pO2 ABG HCO3 ABG Base Excess ABG Hemoglobin Oxyhemoglobin Sodium Potassium Chloride 112.7 H Carbon Dioxide 21 L BUN Creatinine Glucose 103 H POC Glucose 114 H Lactic Acid Calcium TIBC Ferritin AST ALT Alkaline Phosphatase Total Creatine Kinase CK-MB (CK-2) CK-MB (CK-2) Rel Index Troponin T Total Protein Albumin Urine WBC (Auto) Vancomycin Trough 39.7 H 03/13/19 03/13/19 03/14/19 12:12 18:00 00:17 WBC RBC Hgb Hct MCV RDW Plt Count Lymph % (Auto) Lymph # Seg Neutrophils % Seg Neuts % (Manual) Lymphocytes % (Manual) Monocytes % (Manual) Eosinophils % (Manual) Nucleated RBC % Seg Neutrophils # Man Lymphocytes # (Manual) POC ABG pH ABG pH POC ABG pCO2 POC ABG pO2 ABG pO2 ABG HCO3 ABG Base Excess ABG Hemoglobin Oxyhemoglobin Sodium Potassium Chloride Carbon Dioxide BUN Creatinine Glucose POC Glucose 116 H 132 H 130 H Lactic Acid Calcium TIBC Ferritin AST ALT Alkaline Phosphatase Total Creatine Kinase CK-MB (CK-2) CK-MB (CK-2) Rel Index Troponin T Total Protein Albumin Urine WBC (Auto) Vancomycin Trough 03/14/19 03/14/19 03/14/19 05:24 06:44 06:44 WBC 2.6 L RBC 3.00 L Hgb 9.2 L Hct 28.3 L MCV RDW 22.5 H Plt Count 44 L Lymph % (Auto) Lymph # Seg Neutrophils % Seg Neuts % (Manual) 75.0 H Lymphocytes % (Manual) Monocytes % (Manual) Eosinophils % (Manual) 5.0 H Nucleated RBC % 19.0 H Seg Neutrophils # Man Lymphocytes # (Manual) 0.4 L POC ABG pH ABG pH POC ABG pCO2 POC ABG pO2 ABG pO2 ABG HCO3 ABG Base Excess ABG Hemoglobin Oxyhemoglobin Sodium Potassium Chloride 110.2 H Carbon Dioxide 21 L BUN Creatinine 1.3 H Glucose POC Glucose 110 H Lactic Acid Calcium TIBC Ferritin AST 144 H ALT 90 H Alkaline Phosphatase 226 H Total Creatine Kinase CK-MB (CK-2) 8.6 H CK-MB (CK-2) Rel Index 7.1 H Troponin T 0.056 H D Total Protein Albumin 2.2 L Urine WBC (Auto) Vancomycin Trough 03/14/19 03/14/19 03/14/19 09:05 11:54 12:15 WBC RBC Hgb Hct MCV RDW Plt Count Lymph % (Auto) Lymph # Seg Neutrophils % Seg Neuts % (Manual) Lymphocytes % (Manual) Monocytes % (Manual) Eosinophils % (Manual) Nucleated RBC % Seg Neutrophils # Man Lymphocytes # (Manual) POC ABG pH 7.283 L 7.458 H ABG pH POC ABG pCO2 54.9 H 32.7 L POC ABG pO2 76 L ABG pO2 ABG HCO3 ABG Base Excess ABG Hemoglobin Oxyhemoglobin Sodium Potassium Chloride Carbon Dioxide BUN Creatinine Glucose POC Glucose Lactic Acid 2.10 H* Calcium TIBC Ferritin AST ALT Alkaline Phosphatase Total Creatine Kinase CK-MB (CK-2) CK-MB (CK-2) Rel Index Troponin T Total Protein Albumin Urine WBC (Auto) Vancomycin Trough 03/14/19 03/14/19 03/14/19 12:43 13:35 15:35 WBC RBC Hgb Hct MCV RDW Plt Count Lymph % (Auto) Lymph # Seg Neutrophils % Seg Neuts % (Manual) Lymphocytes % (Manual) Monocytes % (Manual) Eosinophils % (Manual) Nucleated RBC % Seg Neutrophils # Man Lymphocytes # (Manual) POC ABG pH ABG pH POC ABG pCO2 POC ABG pO2 ABG pO2 ABG HCO3 ABG Base Excess ABG Hemoglobin Oxyhemoglobin Sodium Potassium Chloride Carbon Dioxide BUN Creatinine Glucose POC Glucose 68 L Lactic Acid 2.10 H* 3.50 H* Calcium TIBC Ferritin AST ALT Alkaline Phosphatase Total Creatine Kinase CK-MB (CK-2) CK-MB (CK-2) Rel Index Troponin T Total Protein Albumin Urine WBC (Auto) Vancomycin Trough 03/14/19 03/14/19 03/14/19 17:34 17:46 17:55 WBC RBC Hgb Hct MCV RDW Plt Count Lymph % (Auto) Lymph # Seg Neutrophils % Seg Neuts % (Manual) Lymphocytes % (Manual) Monocytes % (Manual) Eosinophils % (Manual) Nucleated RBC % Seg Neutrophils # Man Lymphocytes # (Manual) POC ABG pH 7.241 L 7.244 L ABG pH POC ABG pCO2 50.4 H 50.1 H POC ABG pO2 156 H ABG pO2 ABG HCO3 ABG Base Excess ABG Hemoglobin Oxyhemoglobin Sodium Potassium Chloride Carbon Dioxide BUN Creatinine Glucose POC Glucose 49 L Lactic Acid Calcium TIBC Ferritin AST ALT Alkaline Phosphatase Total Creatine Kinase CK-MB (CK-2) CK-MB (CK-2) Rel Index Troponin T Total Protein Albumin Urine WBC (Auto) Vancomycin Trough 03/14/19 03/14/19 03/14/19 18:29 18:32 20:27 WBC RBC Hgb Hct MCV RDW Plt Count Lymph % (Auto) Lymph # Seg Neutrophils % Seg Neuts % (Manual) Lymphocytes % (Manual) Monocytes % (Manual) Eosinophils % (Manual) Nucleated RBC % Seg Neutrophils # Man Lymphocytes # (Manual) POC ABG pH ABG pH POC ABG pCO2 POC ABG pO2 ABG pO2 ABG HCO3 ABG Base Excess ABG Hemoglobin Oxyhemoglobin Sodium Potassium Chloride 112.6 H Carbon Dioxide 19 L BUN Creatinine 1.4 H Glucose 132 H POC Glucose 57 L 115 H Lactic Acid Calcium TIBC Ferritin AST ALT Alkaline Phosphatase Total Creatine Kinase CK-MB (CK-2) CK-MB (CK-2) Rel Index Troponin T Total Protein Albumin Urine WBC (Auto) Vancomycin Trough 03/14/19 03/14/19 03/15/19 23:47 Unknown 04:00 WBC RBC 2.77 L Hgb 8.5 L Hct 27.3 L MCV 98 H RDW 23.0 H Plt Count 27 L Lymph % (Auto) Lymph # Seg Neutrophils % Seg Neuts % (Manual) 75.0 H Lymphocytes % (Manual) 1.0 L Monocytes % (Manual) Eosinophils % (Manual) Nucleated RBC % 4.0 H Seg Neutrophils # Man Lymphocytes # (Manual) 0.1 L POC ABG pH ABG pH POC ABG pCO2 POC ABG pO2 ABG pO2 ABG HCO3 ABG Base Excess ABG Hemoglobin Oxyhemoglobin Sodium Potassium Chloride Carbon Dioxide BUN Creatinine Glucose POC Glucose 116 H Lactic Acid 3.30 H* Calcium TIBC Ferritin AST ALT Alkaline Phosphatase Total Creatine Kinase CK-MB (CK-2) CK-MB (CK-2) Rel Index Troponin T Total Protein Albumin Urine WBC (Auto) Vancomycin Trough 03/15/19 03/15/19 03/15/19 04:00 06:24 07:35 WBC RBC Hgb Hct MCV RDW Plt Count Lymph % (Auto) Lymph # Seg Neutrophils % Seg Neuts % (Manual) Lymphocytes % (Manual) Monocytes % (Manual) Eosinophils % (Manual) Nucleated RBC % Seg Neutrophils # Man Lymphocytes # (Manual) POC ABG pH 7.282 L ABG pH POC ABG pCO2 50.4 H POC ABG pO2 71 L ABG pO2 ABG HCO3 ABG Base Excess ABG Hemoglobin Oxyhemoglobin Sodium Potassium Chloride 112.1 H Carbon Dioxide 19 L BUN Creatinine 1.5 H Glucose 123 H POC Glucose 140 H Lactic Acid Calcium 8.2 L TIBC Ferritin AST ALT Alkaline Phosphatase Total Creatine Kinase CK-MB (CK-2) CK-MB (CK-2) Rel Index Troponin T Total Protein Albumin Urine WBC (Auto) Vancomycin Trough 03/15/19 03/15/19 03/16/19 11:47 23:25 04:33 WBC RBC Hgb Hct MCV RDW Plt Count Lymph % (Auto) Lymph # Seg Neutrophils % Seg Neuts % (Manual) Lymphocytes % (Manual) Monocytes % (Manual) Eosinophils % (Manual) Nucleated RBC % Seg Neutrophils # Man Lymphocytes # (Manual) POC ABG pH ABG pH 7.304 L POC ABG pCO2 POC ABG pO2 ABG pO2 174.4 H ABG HCO3 19.2 L ABG Base Excess -6.6 L ABG Hemoglobin 8.5 L Oxyhemoglobin Sodium Potassium Chloride Carbon Dioxide BUN Creatinine Glucose POC Glucose 161 H 139 H Lactic Acid Calcium TIBC Ferritin AST ALT Alkaline Phosphatase Total Creatine Kinase CK-MB (CK-2) CK-MB (CK-2) Rel Index Troponin T Total Protein Albumin Urine WBC (Auto) Vancomycin Trough 03/16/19 03/16/19 03/16/19 05:19 05:19 05:19 WBC RBC 2.92 L Hgb 8.9 L Hct 28.0 L MCV RDW 22.8 H Plt Count 42 L Lymph % (Auto) Lymph # Seg Neutrophils % Seg Neuts % (Manual) 84.0 H Lymphocytes % (Manual) 5.0 L Monocytes % (Manual) Eosinophils % (Manual) Nucleated RBC % Seg Neutrophils # Man 7.8 H Lymphocytes # (Manual) 0.5 L POC ABG pH ABG pH POC ABG pCO2 POC ABG pO2 ABG pO2 ABG HCO3 ABG Base Excess ABG Hemoglobin Oxyhemoglobin Sodium Potassium 5.2 H Chloride 114.0 H Carbon Dioxide 18 L BUN 22 H Creatinine 1.7 H Glucose 109 H POC Glucose Lactic Acid Calcium 8.0 L TIBC Ferritin AST ALT Alkaline Phosphatase Total Creatine Kinase 194 H CK-MB (CK-2) CK-MB (CK-2) Rel Index Troponin T Total Protein Albumin Urine WBC (Auto) Vancomycin Trough 03/16/19 03/16/19 03/16/19 05:51 12:19 17:42 WBC RBC Hgb Hct MCV RDW Plt Count Lymph % (Auto) Lymph # Seg Neutrophils % Seg Neuts % (Manual) Lymphocytes % (Manual) Monocytes % (Manual) Eosinophils % (Manual) Nucleated RBC % Seg Neutrophils # Man Lymphocytes # (Manual) POC ABG pH ABG pH POC ABG pCO2 POC ABG pO2 ABG pO2 ABG HCO3 ABG Base Excess ABG Hemoglobin Oxyhemoglobin Sodium Potassium Chloride Carbon Dioxide BUN Creatinine Glucose POC Glucose 123 H 134 H 130 H Lactic Acid Calcium TIBC Ferritin AST ALT Alkaline Phosphatase Total Creatine Kinase CK-MB (CK-2) CK-MB (CK-2) Rel Index Troponin T Total Protein Albumin Urine WBC (Auto) Vancomycin Trough 03/17/19 03/17/19 03/17/19 00:46 04:45 04:45 WBC RBC 2.42 L Hgb 7.5 L Hct 23.4 L MCV RDW 22.2 H Plt Count 37 L Lymph % (Auto) 6.2 L Lymph # 0.5 L Seg Neutrophils % 84.0 H Seg Neuts % (Manual) Lymphocytes % (Manual) Monocytes % (Manual) Eosinophils % (Manual) Nucleated RBC % Seg Neutrophils # Man Lymphocytes # (Manual) POC ABG pH ABG pH POC ABG pCO2 POC ABG pO2 ABG pO2 ABG HCO3 ABG Base Excess ABG Hemoglobin Oxyhemoglobin Sodium Potassium Chloride 115.4 H Carbon Dioxide 16 L BUN 27 H Creatinine 1.8 H Glucose 109 H POC Glucose 115 H Lactic Acid Calcium 7.9 L TIBC Ferritin AST ALT Alkaline Phosphatase Total Creatine Kinase CK-MB (CK-2) CK-MB (CK-2) Rel Index Troponin T Total Protein Albumin Urine WBC (Auto) Vancomycin Trough 03/17/19 03/17/19 03/17/19 05:00 06:05 11:15 WBC RBC Hgb Hct MCV RDW Plt Count Lymph % (Auto) Lymph # Seg Neutrophils % Seg Neuts % (Manual) Lymphocytes % (Manual) Monocytes % (Manual) Eosinophils % (Manual) Nucleated RBC % Seg Neutrophils # Man Lymphocytes # (Manual) POC ABG pH ABG pH 7.238 L POC ABG pCO2 POC ABG pO2 ABG pO2 114.7 H ABG HCO3 17.9 L ABG Base Excess -8.8 L ABG Hemoglobin 7.3 L Oxyhemoglobin Sodium Potassium Chloride Carbon Dioxide BUN Creatinine Glucose POC Glucose 124 H Lactic Acid Calcium TIBC 127 L Ferritin AST ALT Alkaline Phosphatase Total Creatine Kinase CK-MB (CK-2) CK-MB (CK-2) Rel Index Troponin T Total Protein Albumin Urine WBC (Auto) Vancomycin Trough 03/17/19 03/17/19 03/17/19 11:15 12:06 18:27 WBC RBC Hgb Hct MCV RDW Plt Count Lymph % (Auto) Lymph # Seg Neutrophils % Seg Neuts % (Manual) Lymphocytes % (Manual) Monocytes % (Manual) Eosinophils % (Manual) Nucleated RBC % Seg Neutrophils # Man Lymphocytes # (Manual) POC ABG pH ABG pH POC ABG pCO2 POC ABG pO2 ABG pO2 ABG HCO3 ABG Base Excess ABG Hemoglobin Oxyhemoglobin Sodium Potassium Chloride Carbon Dioxide BUN Creatinine Glucose POC Glucose 133 H 158 H Lactic Acid Calcium TIBC Ferritin 512.4 H AST ALT Alkaline Phosphatase Total Creatine Kinase CK-MB (CK-2) CK-MB (CK-2) Rel Index Troponin T Total Protein Albumin Urine WBC (Auto) Vancomycin Trough 03/17/19 03/18/19 03/18/19 23:30 04:00 05:45 WBC RBC 2.31 L Hgb 7.0 L Hct 22.0 L MCV RDW 22.2 H Plt Count 45 L Lymph % (Auto) Lymph # Seg Neutrophils % Seg Neuts % (Manual) 82.0 H Lymphocytes % (Manual) 12.0 L Monocytes % (Manual) Eosinophils % (Manual) 5.0 H Nucleated RBC % 1.0 H Seg Neutrophils # Man Lymphocytes # (Manual) 0.8 L POC ABG pH ABG pH POC ABG pCO2 POC ABG pO2 ABG pO2 113.7 H ABG HCO3 ABG Base Excess -3.0 L ABG Hemoglobin 7.0 L Oxyhemoglobin Sodium Potassium Chloride Carbon Dioxide BUN Creatinine Glucose POC Glucose 143 H Lactic Acid Calcium TIBC Ferritin AST ALT Alkaline Phosphatase Total Creatine Kinase CK-MB (CK-2) CK-MB (CK-2) Rel Index Troponin T Total Protein Albumin Urine WBC (Auto) Vancomycin Trough 03/18/19 03/18/19 03/18/19 05:48 05:50 14:01 WBC RBC Hgb Hct MCV RDW Plt Count Lymph % (Auto) Lymph # Seg Neutrophils % Seg Neuts % (Manual) Lymphocytes % (Manual) Monocytes % (Manual) Eosinophils % (Manual) Nucleated RBC % Seg Neutrophils # Man Lymphocytes # (Manual) POC ABG pH 7.299 L ABG pH POC ABG pCO2 48.7 H POC ABG pO2 ABG pO2 ABG HCO3 ABG Base Excess ABG Hemoglobin Oxyhemoglobin Sodium Potassium Chloride 109.9 H Carbon Dioxide BUN 28 H Creatinine 1.5 H Glucose 128 H POC Glucose 118 H Lactic Acid Calcium 7.6 L TIBC Ferritin AST ALT Alkaline Phosphatase Total Creatine Kinase CK-MB (CK-2) CK-MB (CK-2) Rel Index Troponin T Total Protein Albumin Urine WBC (Auto) Vancomycin Trough 03/18/19 03/19/19 03/19/19 23:53 04:43 06:02 WBC RBC Hgb Hct MCV RDW Plt Count Lymph % (Auto) Lymph # Seg Neutrophils % Seg Neuts % (Manual) Lymphocytes % (Manual) Monocytes % (Manual) Eosinophils % (Manual) Nucleated RBC % Seg Neutrophils # Man Lymphocytes # (Manual) POC ABG pH ABG pH 7.332 L POC ABG pCO2 POC ABG pO2 ABG pO2 116.2 H ABG HCO3 ABG Base Excess -3.3 L ABG Hemoglobin 7.3 L Oxyhemoglobin 94.9 L Sodium Potassium Chloride Carbon Dioxide BUN Creatinine Glucose POC Glucose 130 H 122 H Lactic Acid Calcium TIBC Ferritin AST ALT Alkaline Phosphatase Total Creatine Kinase CK-MB (CK-2) CK-MB (CK-2) Rel Index Troponin T Total Protein Albumin Urine WBC (Auto) Vancomycin Trough 03/19/19 03/19/19 03/19/19 12:16 15:33 23:44 WBC RBC Hgb Hct MCV RDW Plt Count Lymph % (Auto) Lymph # Seg Neutrophils % Seg Neuts % (Manual) Lymphocytes % (Manual) Monocytes % (Manual) Eosinophils % (Manual) Nucleated RBC % Seg Neutrophils # Man Lymphocytes # (Manual) POC ABG pH 7.316 L ABG pH POC ABG pCO2 45.7 H POC ABG pO2 ABG pO2 ABG HCO3 ABG Base Excess ABG Hemoglobin Oxyhemoglobin Sodium Potassium Chloride Carbon Dioxide BUN Creatinine Glucose POC Glucose 132 H 106 H Lactic Acid Calcium TIBC Ferritin AST ALT Alkaline Phosphatase Total Creatine Kinase CK-MB (CK-2) CK-MB (CK-2) Rel Index Troponin T Total Protein Albumin Urine WBC (Auto) Vancomycin Trough 03/20/19 03/20/19 01:00 EST 04:27 WBC RBC Hgb Hct MCV RDW Plt Count Lymph % (Auto) Lymph # Seg Neutrophils % Seg Neuts % (Manual) Lymphocytes % (Manual) Monocytes % (Manual) Eosinophils % (Manual) Nucleated RBC % Seg Neutrophils # Man Lymphocytes # (Manual) POC ABG pH ABG pH POC ABG pCO2 POC ABG pO2 ABG pO2 121.6 H ABG HCO3 ABG Base Excess ABG Hemoglobin 7.1 L Oxyhemoglobin Sodium Potassium 3.4 L Chloride 111.7 H Carbon Dioxide BUN 29 H Creatinine Glucose POC Glucose Lactic Acid Calcium 8.0 L TIBC Ferritin AST ALT Alkaline Phosphatase Total Creatine Kinase CK-MB (CK-2) CK-MB (CK-2) Rel Index Troponin T Total Protein Albumin Urine WBC (Auto) Vancomycin Trough Chest x-ray: image reviewed Allied health notes reviewed: RT
[2019-03-20] MEDS: SCOPOLAMINE TRANSDERMAL PATCH 72 HR TD SCH (14:09)
[2019-03-20] MEDS: GLYCOPYRROLATE 1 MG TAB PO SCH ×2 (14:19→21:08)
[2019-03-21] MEDS: INSULIN LISPRO 100 UNIT/ML SUB-Q SCH ×4 (00:20→17:52)
[2019-03-21] MEDS: IPRATROPIUM/ALBUTEROL SULFATE 3 ML AMPUL.NEB IH SCH ×4 (03:49→19:56)
--- NOTE | 2019-03-21 04:21 | XRay Report ---
CHEST 1 VIEW 03/21/2019 2:05 AM INDICATION / CLINICAL INFORMATION: follow up respiratory failure. COMPARISON: 03/20/19 FINDINGS: SUPPORT DEVICES: Unchanged. HEART / MEDIASTINUM: Stable. LUNGS / PLEURA: Minimal improvement in bilateral pulmonary opacities. No pneumothorax. ADDITIONAL FINDINGS: No significant additional findings. IMPRESSION: 1. Minimal improvement. Signer Name: Giovany John MD Signed: 03/21/2019 4:17 AM Workstation Name: [id number]
[2019-03-21] MEDS: PIPERACIL/TAZOBACTA 4.5/NS 100 4.5 GM/100 ML VIAL IV SCH ×3 (05:50→21:06)
--- NOTE | 2019-03-21 06:51 | Hem/Onc Progress Note ---
Assessment and Plan 1. h/o Leukopenia and the patient has a history of liver disease and alcohol usage. These may have a role. Thrombocytopenia may have a similar reason. Deficiency investigations. In January, B12 was 1400, folate 13. 2. Encephalopathy, being treated for sepsis. 3. History of electrolyte imbalance. 4. History of hypertension. 5. History of chronic obstructive pulmonary disease. 6. AST, ALT abnormality. 7. The patient was placed on reverse isolation. I will follow the patient during inpatient stay. wbc better - but pt on vent b12 - folate normal - will follow plt low - may be sec to infection/meds/antibiotics - pt was on vanco - zosyn - now daptomycin ID following pt plt still low but no bleeding b12- folate - iron ferritin WNL ordered cbc now - Patient Problems (1) Leukopenia Current Visit: Yes Status: Acute Qualifiers: Leukopenia type: unspecified Qualified Code(s): D72.819 - Decreased white blood cell count, unspecified Subjective Date of service: 03/21/19 Principal diagnosis: low plt Interval history: on vent Objective - Exam Narrative Exam: Pain - on vent General appearance - intubated Performance status - complete dependence Eyes - no icterus, ENT - no bleeding LNs cervical not palpable Neck - no LN Respiratory Normal Breath sounds - CTA anteriorly CVS S1 S2 + Extremities edema+ General GI Soft Rectal deferred female - deferred Skin warm Musculoskeletal on vent Neurologically intubated - Constitutional Vitals: Last Vital Signs Temp 97.4 F L 03/21/19 00:00 Pulse 72 03/21/19 06:30 Resp 17 03/21/19 06:30 BP 93/66 03/21/19 06:30 Pulse Ox 100 03/21/19 06:30 - Labs Lab Results: Laboratory Results - last 24 hr 03/20/19 03/20/19 03/21/19 18:09 23:36 05:42 POC Glucose 133 H 114 H 116 H Medications & Allergies - Medications Allergies/Adverse Reactions: Allergies No Known Allergies Allergy (Verified 01/06/17 23:38) Per son Home Medications: Home Medications Medication Instructions Recorded Confirmed Last Taken Type Folic Acid [Folvite] 1 mg PO QDAY #30 tablet 08/12/18 03/10/19 03/09/19 Rx Haloperidol [Haldol] 0.5 mg PO Q6H PRN #30 tablet 08/12/18 03/10/19 03/10/19 Rx Lactulose [Cephulac] 20 gm PO Q12H #1 bottle 08/12/18 03/10/19 03/09/19 Rx Rifaximin [Xifaxan] 550 mg PO BID #60 tablet 08/12/18 03/10/19 03/09/19 Rx Thiamine [Vitamin B-1] 100 mg PO QDAY #30 tablet 08/12/18 03/10/19 03/09/19 Rx amLODIPine 5 mg PO QDAY #30 tablet 08/12/18 03/10/19 03/09/19 Rx chlordiazePOXIDE [Librium] 25 mg PO DAILY #3 capsule 08/12/18 03/10/19 03/09/19 Rx ALBUTEROL NEB's [Proventil] 2.5 mg IH TID PRN 02/06/19 03/10/19 03/09/19 History Acetaminophen [Tylenol] 650 mg PO Q6HR PRN 02/06/19 03/10/19 03/09/19 History Fluticasone [Flonase] 1 spray NS QDAY 02/06/19 03/10/19 03/09/19 History Ipratropium/Albuterol Sulfate 1 spray IH QID 02/06/19 03/10/19 03/09/19 History [Combivent Respimat] Melatonin [Melatonin 10MG CAP] 10 mg PO QHS 02/06/19 03/10/19 03/09/19 History Active Medications: Generic Name Dose Route Start Last Admin Trade Name Freq PRN Reason Stop Dose Admin Acetaminophen 650 mg 03/10/19 17:46 Tylenol PO Q4H PRN Pain MILD(1-3)/Fever >100.5/GUERRERO Albuterol 2.5 mg 03/11/19 03:52 Proventil IH TID PRN Wheezing Albuterol/Ipratropium 1 ampul 03/11/19 08:00 03/21/19 03:49 Duoneb *Not For Prn Use* IH 1 ampul Q6HRT CONNIE Administration Lipase/Protease/Amylase 1 each 03/14/19 13:25 Pancremartine Sahni 10,500 Unit FEEDTUBE PRN PRN For Clogged Feeding Tube Chlordiazepoxide HCl 25 mg 03/11/19 10:00 03/20/19 10:22 Librium PO 25 mg DAILY CONNIE Administration Dextrose 50 ml 03/10/19 22:27 03/14/19 17:55 D50w (25gm) Syringe IV 50 ml Q30MIN PRN Administration Hypoglycemia Famotidine 20 mg 03/15/19 10:00 03/20/19 10:22 Pepcid PO 20 mg DAILY CONNIE Administration Fluticasone Propionate 50 mcg 03/11/19 10:00 03/20/19 10:24 Flonase NS Not Given QDAY CONNIE Folic Acid 1 mg 03/11/19 10:00 03/20/19 10:22 Folvite PO 1 mg QDAY CONNIE Administration Glycopyrrolate 1 mg 03/20/19 14:00 03/20/19 21:08 Robinul PO 1 mg BID CONNIE Administration Haloperidol 0.5 mg 03/11/19 03:52 03/12/19 09:32 Haldol PO 0.5 mg Q6H PRN Administration Agitation Hydrophilic Ointment 1 applic 03/14/19 06:51 Vaseline Lip Therapy TP Q2HR PRN Dry Lips Propofol 1,000 mg in 100 mls @ 2.587 mls/hr 03/14/19 07:00 03/14/19 12:00 Diprivan 10 Mg/Ml IV 0 mcg/kg/min TITR CONNIE 0 mls/hr Titration Protocol 5 MCG/KG/MIN Fentanyl Citrate 2,000 mcg in 100 mls @ 4.312 mls/hr 03/14/19 11:00 03/18/19 21:00 Fentanyl Drip Premix IV 2 mcg/kg/hr TITR CONNIE 8.623 mls/hr Titration Protocol 1 MCG/KG/HR Vasopressin 20 unit/ Sodium 101 mls @ 9.09 mls/hr 03/14/19 14:00 03/18/19 12:30 Chloride IV Infused TITR CONNIE Titration Protocol 0.03 UNITS/MIN Dopamine HCl/Dextrose 800 mg in 250 mls @ 3.234 mls/hr 03/14/19 22:00 03/18/19 08:45 Intropin Drip 800 Mg/D5w 250 Ml IV 0 mcg/kg/min TITR CONNIE 0 mls/hr Titration Protocol 2 MCG/KG/MIN Sodium Chloride 500 mls @ 15 mls/hr 03/17/19 20:00 Nacl 0.9% 500 Ml IV PRN CONNIE Piperacillin Sod/Tazobactam Sod 4.5 gm in 100 mls @ 200 mls/hr 03/18/19 22:00 03/21/19 05:50 Zosyn/Ns 4.5gm/100ml IV 200 mls/hr Q8HR CONNIE Administration Protocol Insulin Human Lispro 0 unit 03/11/19 00:00 03/20/19 19:44 Humalog SUB-Q Not Given Q6HR [facility] Protocol Morphine Sulfate 2 mg 03/10/19 17:56 03/20/19 08:48 Morphine IV 2 mg Q4H PRN Administration Pain, Moderate (4-6) Multi-Ingred Cream/Lotion/Oil/Oint 1 applic 03/14/19 06:51 03/20/19 10:22 Artificial Tears Ophth Oint OU 0.35 applic Q4HR PRN Administration Dry Eye(s) Ondansetron HCl 4 mg 03/10/19 17:46 03/11/19 05:04 Zofran IV 4 mg Q8H PRN Administration Nausea And Vomiting Rifaximin 550 mg 03/11/19 10:00 03/20/19 21:09 Xifaxan PO 550 mg BID [facility] Administration Scopolamine 1 each 03/20/19 15:00 03/20/19 14:09 Transderm-Scop TD 1 each Q3D CONNIE Administration Simple Syrup 15 ml 03/14/19 13:25 Simple Syrup FEEDTUBE PRN PRN Hypoglycemia Simple Syrup 30 ml 03/14/19 13:25 Simple Syrup FEEDTUBE PRN PRN Hypoglycemia Sodium Bicarbonate 325 mg 03/14/19 13:25 Sodium Bicarbonate FEEDTUBE PRN PRN For Clogged Feeding Tube Sodium Chloride 10 ml 03/10/19 22:00 03/20/19 21:09 Sodium Chloride Flush Syringe 10 Ml IV 10 ml BID CONNIE Administration Sodium Chloride 10 ml 03/10/19 17:46 03/13/19 22:50 Sodium Chloride Flush Syringe 10 Ml IV 10 ml PRN PRN Administration LINE FLUSH Thiamine HCl 100 mg 03/11/19 10:00 03/20/19 12:02 Vitamin B-1 PO Not Given QDAY [facility]
[2019-03-21 08:36] LABS: Hematocrit 21.6 % (30.3-42.9); Hemoglobin 7.1 gm/dl (10.1-14.3); Mean Corpuscular HGB Conc 33 % (30-34); Mean Corpuscular Volume 96 fl (79-97); Red Blood Count 2.25 M/mm3 (3.65-5.03)
[2019-03-21 08:48] LABS: Red Cell Distribution Width 21.6 % (13.2-15.2)
[2019-03-21 08:51] LABS: Platelet Count 105 K/mm3 (140-440)
--- NOTE | 2019-03-21 08:51 | Progress Note ---
Assessment and Plan Severe sepsis with septic shock Cardiac arrest (asystole with ROSC) Acute hypoxic respiratory failure on MVS Lactic acidosis- multifactorial (resolved) Acute toxic- metabolic encephalopathy Aspiration pneumonia VRE UTI Hypernatremia Thrombocytopenia h/o Cirrhosis h/o Alcohol abuse disorder KERRI Hyperkalemia - get ABG and address - volume resuscitation; CVP's also trending lower as BP has dropped - LR 250 mls bolus then run at 75 ml's/hr to complete 2 liters - trend lactate levels and procalcitonin re: hypotension - Continue to wean vasopressor support for MAP > 65 mmHg (currently on vasopressin & dopamine) - discontinued steen catheter - place scopolamine patch for secretion control - VAP bundle addressed (Aspiration precautions, HOB > 40 degrees) - continue Lung protective strategies - continue to wean FIO2 for O2 sats >90% - prn CXR's & ABG's acutely - continue to avoid nephrotoxins and adjust all medications fro GFR and CrCL - daily SAT's and SBT assessment as tolerated - continue enteral nutrition and advance to goal rate as tolerated - continue agitation management / Pain management per CPOT - continue empiric antibiotics for aspiration PNA, antibiotics for VRE, de- escalate based on cultures and clinical status (ID input appreciated) - Continue contact isolation - Continue VTE prophylaxis (SCDs), trend platelet counts and monitor for bleeding - continue stress ulcer prophylaxis with PPI - continue accuchecks with glycemic control for SSI (While critically ill target blood glucose of 140-180 mg/dL; avoid hypoglycemia) - Continue mobility protocol for pressure ulcer prevention - Continue to monitor hemodynamics closely - Monitor electrolyte profile closely and replete as indicated - continue chronic home medications per attending and as clinically indicated - Continue to hold off on neuro-imaging for now - Continue Steen catheter in this critically ill patient, with poor urine output, requiring accurate intake and output monitoring. - continue other care per attending / other consultants .... re-evaluate in am & prn CONDITION: CRITICAL PROGNOSIS: GUARDED CODE STATUS: FULL CODE The high probability of a clinically significant, sudden or life-threatening deterioration of the [respiratory, cardiovascular, neurology, hematology] system(s) required my full and direct attention, intervention and personal management. The aggregate critical care time was [35] minutes without overlap. Time includes spent on; [x] Data Review and interpretation [x] Patient assessment and monitoring of vital signs [x] Documentation [x] Medication orders and management Subjective Date of service: 03/21/19 Principal diagnosis: Severe sepsis with shock; Ac. hypoxemic resp failure; cardiac arrest; PNA Interval history: Follow up for severe sepsis with septic shock; acute hypoxemic respiratory failure on MVS; s/p cardiac arrest with ROSC; VRE UTI; Aspiration pneumonia Seen and examined at bedside; 24hour events reviewed; nursing and respiratory care staff consulted; no adverse overnight events reported to me; resting in bed; BP's running low; stil lethargic and tenuously tolerating PSV trial; No emesis or overt aspiration; looks very weak. Objective Vital Signs - 12hr 03/20/19 03/20/19 03/20/19 21:00 21:30 22:00 Temperature Pulse Rate 81 78 82 Pulse Rate [ Anterior Bilateral Throughout] Pulse Rate [ Anterior Throughout] Pulse Rate [ From Monitor] Respiratory 18 18 14 Rate Respiratory Rate [Anterior Bilateral Throughout] Respiratory Rate [Anterior Throughout] Respiratory 25 H Rate [ Generalized] Blood Pressure 118/61 114/70 102/63 O2 Sat by Pulse 100 100 100 Oximetry 03/20/19 03/20/19 03/20/19 22:30 23:00 23:18 Temperature Pulse Rate 77 78 80 Pulse Rate [ Anterior Bilateral Throughout] Pulse Rate [ Anterior Throughout] Pulse Rate [ From Monitor] Respiratory 14 16 12 Rate Respiratory Rate [Anterior Bilateral Throughout] Respiratory Rate [Anterior Throughout] Respiratory Rate [ Generalized] Blood Pressure 111/70 128/80 128/80 O2 Sat by Pulse 100 100 100 Oximetry 03/20/19 03/20/19 03/21/19 23:30 23:49 00:00 Temperature 97.4 F L Pulse Rate 78 76 74 Pulse Rate [ Anterior Bilateral Throughout] Pulse Rate [ Anterior Throughout] Pulse Rate [ 74 From Monitor] Respiratory 13 11 L Rate Respiratory Rate [Anterior Bilateral Throughout] Respiratory Rate [Anterior Throughout] Respiratory Rate [ Generalized] Blood Pressure 116/75 128/80 120/75 O2 Sat by Pulse 100 100 100 Oximetry 03/21/19 03/21/19 03/21/19 00:30 01:00 01:30 Temperature Pulse Rate 69 73 68 Pulse Rate [ Anterior Bilateral Throughout] Pulse Rate [ Anterior Throughout] Pulse Rate [ From Monitor] Respiratory 11 L 12 14 Rate Respiratory Rate [Anterior Bilateral Throughout] Respiratory Rate [Anterior Throughout] Respiratory Rate [ Generalized] Blood Pressure 118/75 120/75 123/75 O2 Sat by Pulse 100 100 100 Oximetry 03/21/19 03/21/19 03/21/19 02:00 02:30 03:00 Temperature Pulse Rate 74 75 79 Pulse Rate [ Anterior Bilateral Throughout] Pulse Rate [ Anterior Throughout] Pulse Rate [ From Monitor] Respiratory 12 13 12 Rate Respiratory Rate [Anterior Bilateral Throughout] Respiratory Rate [Anterior Throughout] Respiratory Rate [ Generalized] Blood Pressure 115/76 120/73 113/77 O2 Sat by Pulse 100 100 100 Oximetry 03/21/19 03/21/19 03/21/19 03:30 03:50 03:51 Temperature Pulse Rate 84 Pulse Rate [ 86 Anterior Bilateral Throughout] Pulse Rate [ 86 Anterior Throughout] Pulse Rate [ From Monitor] Respiratory Rate Respiratory 15 Rate [Anterior Bilateral Throughout] Respiratory 15 Rate [Anterior Throughout] Respiratory Rate [ Generalized] Blood Pressure 113/77 107/64 O2 Sat by Pulse 100 Oximetry 03/21/19 03/21/19 03/21/19 04:00 04:30 05:00 Temperature 97.3 F L Pulse Rate 89 73 74 Pulse Rate [ Anterior Bilateral Throughout] Pulse Rate [ Anterior Throughout] Pulse Rate [ 89 From Monitor] Respiratory 15 19 15 Rate Respiratory Rate [Anterior Bilateral Throughout] Respiratory Rate [Anterior Throughout] Respiratory Rate [ Generalized] Blood Pressure 109/76 118/69 99/64 O2 Sat by Pulse 100 100 100 Oximetry 03/21/19 03/21/19 03/21/19 05:30 06:00 06:30 Temperature Pulse Rate 74 75 72 Pulse Rate [ Anterior Bilateral Throughout] Pulse Rate [ Anterior Throughout] Pulse Rate [ From Monitor] Respiratory 12 15 17 Rate Respiratory Rate [Anterior Bilateral Throughout] Respiratory Rate [Anterior Throughout] Respiratory Rate [ Generalized] Blood Pressure 107/83 109/67 93/66 O2 Sat by Pulse 100 100 100 Oximetry 03/21/19 03/21/19 03/21/19 07:00 07:11 07:30 Temperature Pulse Rate 72 85 67 Pulse Rate [ 81 Anterior Bilateral Throughout] Pulse Rate [ Anterior Throughout] Pulse Rate [ From Monitor] Respiratory 15 13 Rate Respiratory 20 Rate [Anterior Bilateral Throughout] Respiratory Rate [Anterior Throughout] Respiratory Rate [ Generalized] Blood Pressure 108/81 108/81 108/81 O2 Sat by Pulse 100 100 100 Oximetry 03/21/19 03/21/19 08:00 08:22 Temperature Pulse Rate 75 80 Pulse Rate [ Anterior Bilateral Throughout] Pulse Rate [ Anterior Throughout] Pulse Rate [ 75 From Monitor] Respiratory 14 Rate Respiratory Rate [Anterior Bilateral Throughout] Respiratory Rate [Anterior Throughout] Respiratory Rate [ Generalized] Blood Pressure 101/58 O2 Sat by Pulse 100 Oximetry Constitutional: appears uncomfortable, other (elderly looking obese AAF with mild respiratory distress on MVS ) Eyes: non-icteric ENT: oropharynx moist, other (ETT 23 cm JA) Neck: supple, no lymphadenopathy, no JVD Effort: mildly labored Ascultation: Bilateral: diminished breath sounds, rhonchi Percussion: Bilateral: not dull Cardiovascular: regular rate and rhythm, other (S1, S2, no murmurs, gallops or rubs rhythm strip shows accelerated junctional ) Gastrointestinal: normoactive bowel sounds, soft, non-tender, non-distended, other (No HSM) Integumentary: normal Extremities: no cyanosis, no edema, pulses normal, no ischemia or petechiae Neurologic: unable to assess Psychiatric: other (unable to assess) CBC and BMP: 03/21/19 08:12 03/20/19 01:00 EST ABG, PT/INR, D-dimer: ABG POC ABG pH 7.316 (7.35-7.45) L 03/19/19 15:33 ABG pH 7.380 pH Units (7.350-7.450) 03/20/19 04:27 POC ABG pCO2 45.7 (35-45) H 03/19/19 15:33 ABG pCO2 40.2 mm Hg 03/20/19 04:27 POC ABG pO2 100 (80-105) 03/19/19 15:33 ABG pO2 121.6 mm Hg (80.0-90.0) H 03/20/19 04:27 POC ABG HCO3 23.3 (22-26 mml/L) 03/19/19 15:33 POC ABG Total CO2 25 (23-27mmol/L) 03/19/19 15:33 POC ABG O2 Sat 97 03/19/19 15:33 ABG O2 Saturation 98.3 % (95.0-99.0) 03/20/19 04:27 Abnormal lab findings: Abnormal Labs 03/10/19 03/10/19 03/10/19 13:16 13:16 14:38 WBC 0.8 L* RBC 3.35 L Hgb Hct MCV RDW 22.1 H Plt Count 78 L Lymph % (Auto) Lymph # Seg Neutrophils % Seg Neuts % (Manual) Lymphocytes % (Manual) 49.0 H Monocytes % (Manual) Eosinophils % (Manual) Nucleated RBC % Seg Neutrophils # Man 0.3 L Lymphocytes # (Manual) 0.4 L POC ABG pH ABG pH POC ABG pCO2 POC ABG pO2 ABG pO2 ABG HCO3 ABG Base Excess ABG Hemoglobin Oxyhemoglobin Sodium 147 H Potassium 5.4 H Chloride 111.8 H Carbon Dioxide BUN Creatinine 0.6 L Glucose POC Glucose Lactic Acid Calcium TIBC Ferritin AST 128 H ALT 79 H Alkaline Phosphatase 174 H Total Creatine Kinase CK-MB (CK-2) CK-MB (CK-2) Rel Index Troponin T Total Protein Albumin 2.4 L Urine WBC (Auto) 9.0 H Vancomycin Trough 03/10/19 03/10/19 03/11/19 21:22 23:36 07:29 WBC RBC Hgb Hct MCV RDW Plt Count Lymph % (Auto) Lymph # Seg Neutrophils % Seg Neuts % (Manual) Lymphocytes % (Manual) Monocytes % (Manual) Eosinophils % (Manual) Nucleated RBC % Seg Neutrophils # Man Lymphocytes # (Manual) POC ABG pH ABG pH POC ABG pCO2 POC ABG pO2 ABG pO2 ABG HCO3 ABG Base Excess ABG Hemoglobin Oxyhemoglobin Sodium 148 H Potassium 5.6 H Chloride 122.3 H Carbon Dioxide 20 L BUN Creatinine 0.6 L Glucose POC Glucose 65 L 112 H Lactic Acid Calcium TIBC Ferritin AST 102 H ALT 65 H Alkaline Phosphatase 134 H Total Creatine Kinase CK-MB (CK-2) CK-MB (CK-2) Rel Index Troponin T Total Protein 6.1 L Albumin 1.8 L Urine WBC (Auto) Vancomycin Trough 03/11/19 03/11/19 03/11/19 11:25 15:28 18:00 WBC 1.2 L* RBC Hgb Hct MCV RDW 22.1 H Plt Count 53 L Lymph % (Auto) Lymph # Seg Neutrophils % Seg Neuts % (Manual) 78.6 H Lymphocytes % (Manual) 9.5 L Monocytes % (Manual) 9.5 H Eosinophils % (Manual) Nucleated RBC % Seg Neutrophils # Man 0.9 L Lymphocytes # (Manual) 0.1 L POC ABG pH ABG pH POC ABG pCO2 POC ABG pO2 ABG pO2 ABG HCO3 ABG Base Excess ABG Hemoglobin Oxyhemoglobin Sodium Potassium Chloride Carbon Dioxide BUN Creatinine Glucose POC Glucose 117 H 118 H Lactic Acid Calcium TIBC Ferritin AST ALT Alkaline Phosphatase Total Creatine Kinase CK-MB (CK-2) CK-MB (CK-2) Rel Index Troponin T Total Protein Albumin Urine WBC (Auto) Vancomycin Trough 03/12/19 03/12/19 03/12/19 00:19 05:45 08:55 WBC 2.4 L RBC 3.33 L Hgb Hct MCV RDW 22.8 H Plt Count 58 L Lymph % (Auto) Lymph # Seg Neutrophils % Seg Neuts % (Manual) 93.0 H Lymphocytes % (Manual) 4.0 L Monocytes % (Manual) Eosinophils % (Manual) Nucleated RBC % 7.0 H Seg Neutrophils # Man Lymphocytes # (Manual) 0.1 L POC ABG pH ABG pH POC ABG pCO2 POC ABG pO2 ABG pO2 ABG HCO3 ABG Base Excess ABG Hemoglobin Oxyhemoglobin Sodium Potassium Chloride Carbon Dioxide BUN Creatinine Glucose POC Glucose 124 H 116 H Lactic Acid Calcium TIBC Ferritin AST ALT Alkaline Phosphatase Total Creatine Kinase CK-MB (CK-2) CK-MB (CK-2) Rel Index Troponin T Total Protein Albumin Urine WBC (Auto) Vancomycin Trough 03/12/19 03/13/19 03/13/19 08:55 00:18 03:48 WBC 2.7 L RBC 3.06 L Hgb 9.4 L Hct 29.4 L MCV RDW 23.1 H Plt Count 62 L Lymph % (Auto) Lymph # Seg Neutrophils % Seg Neuts % (Manual) 76.0 H Lymphocytes % (Manual) Monocytes % (Manual) Eosinophils % (Manual) Nucleated RBC % 11.0 H Seg Neutrophils # Man Lymphocytes # (Manual) 0.5 L POC ABG pH ABG pH POC ABG pCO2 POC ABG pO2 ABG pO2 ABG HCO3 ABG Base Excess ABG Hemoglobin Oxyhemoglobin Sodium Potassium 5.6 H Chloride 114.2 H Carbon Dioxide 21 L BUN Creatinine Glucose POC Glucose 119 H Lactic Acid Calcium TIBC Ferritin AST ALT Alkaline Phosphatase Total Creatine Kinase CK-MB (CK-2) CK-MB (CK-2) Rel Index Troponin T Total Protein Albumin Urine WBC (Auto) Vancomycin Trough 03/13/19 03/13/1919 03:48 05:52 05:58 WBC RBC Hgb Hct MCV RDW Plt Count Lymph % (Auto) Lymph # Seg Neutrophils % Seg Neuts % (Manual) Lymphocytes % (Manual) Monocytes % (Manual) Eosinophils % (Manual) Nucleated RBC % Seg Neutrophils # Man Lymphocytes # (Manual) POC ABG pH ABG pH POC ABG pCO2 POC ABG pO2 ABG pO2 ABG HCO3 ABG Base Excess ABG Hemoglobin Oxyhemoglobin Sodium Potassium Chloride 112.7 H Carbon Dioxide 21 L BUN Creatinine Glucose 103 H POC Glucose 114 H Lactic Acid Calcium TIBC Ferritin AST ALT Alkaline Phosphatase Total Creatine Kinase CK-MB (CK-2) CK-MB (CK-2) Rel Index Troponin T Total Protein Albumin Urine WBC (Auto) Vancomycin Trough 39.7 H 03/13/19 03/13/19 03/14/19 12:12 18:00 00:17 WBC RBC Hgb Hct MCV RDW Plt Count Lymph % (Auto) Lymph # Seg Neutrophils % Seg Neuts % (Manual) Lymphocytes % (Manual) Monocytes % (Manual) Eosinophils % (Manual) Nucleated RBC % Seg Neutrophils # Man Lymphocytes # (Manual) POC ABG pH ABG pH POC ABG pCO2 POC ABG pO2 ABG pO2 ABG HCO3 ABG Base Excess ABG Hemoglobin Oxyhemoglobin Sodium Potassium Chloride Carbon Dioxide BUN Creatinine Glucose POC Glucose 116 H 132 H 130 H Lactic Acid Calcium TIBC Ferritin AST ALT Alkaline Phosphatase Total Creatine Kinase CK-MB (CK-2) CK-MB (CK-2) Rel Index Troponin T Total Protein Albumin Urine WBC (Auto) Vancomycin Trough 03/14/19 03/14/19 03/14/19 05:24 06:44 06:44 WBC 2.6 L RBC 3.00 L Hgb 9.2 L Hct 28.3 L MCV RDW 22.5 H Plt Count 44 L Lymph % (Auto) Lymph # Seg Neutrophils % Seg Neuts % (Manual) 75.0 H Lymphocytes % (Manual) Monocytes % (Manual) Eosinophils % (Manual) 5.0 H Nucleated RBC % 19.0 H Seg Neutrophils # Man Lymphocytes # (Manual) 0.4 L POC ABG pH ABG pH POC ABG pCO2 POC ABG pO2 ABG pO2 ABG HCO3 ABG Base Excess ABG Hemoglobin Oxyhemoglobin Sodium Potassium Chloride 110.2 H Carbon Dioxide 21 L BUN Creatinine 1.3 H Glucose POC Glucose 110 H Lactic Acid Calcium TIBC Ferritin AST 144 H ALT 90 H Alkaline Phosphatase 226 H Total Creatine Kinase CK-MB (CK-2) 8.6 H CK-MB (CK-2) Rel Index 7.1 H Troponin T 0.056 H D Total Protein Albumin 2.2 L Urine WBC (Auto) Vancomycin Trough 03/14/19 03/14/19 03/14/19 09:05 11:54 12:15 WBC RBC Hgb Hct MCV RDW Plt Count Lymph % (Auto) Lymph # Seg Neutrophils % Seg Neuts % (Manual) Lymphocytes % (Manual) Monocytes % (Manual) Eosinophils % (Manual) Nucleated RBC % Seg Neutrophils # Man Lymphocytes # (Manual) POC ABG pH 7.283 L 7.458 H ABG pH POC ABG pCO2 54.9 H 32.7 L POC ABG pO2 76 L ABG pO2 ABG HCO3 ABG Base Excess ABG Hemoglobin Oxyhemoglobin Sodium Potassium Chloride Carbon Dioxide BUN Creatinine Glucose POC Glucose Lactic Acid 2.10 H* Calcium TIBC Ferritin AST ALT Alkaline Phosphatase Total Creatine Kinase CK-MB (CK-2) CK-MB (CK-2) Rel Index Troponin T Total Protein Albumin Urine WBC (Auto) Vancomycin Trough 03/14/19 03/14/19 03/14/19 12:43 13:35 15:35 WBC RBC Hgb Hct MCV RDW Plt Count Lymph % (Auto) Lymph # Seg Neutrophils % Seg Neuts % (Manual) Lymphocytes % (Manual) Monocytes % (Manual) Eosinophils % (Manual) Nucleated RBC % Seg Neutrophils # Man Lymphocytes # (Manual) POC ABG pH ABG pH POC ABG pCO2 POC ABG pO2 ABG pO2 ABG HCO3 ABG Base Excess ABG Hemoglobin Oxyhemoglobin Sodium Potassium Chloride Carbon Dioxide BUN Creatinine Glucose POC Glucose 68 L Lactic Acid 2.10 H* 3.50 H* Calcium TIBC Ferritin AST ALT Alkaline Phosphatase Total Creatine Kinase CK-MB (CK-2) CK-MB (CK-2) Rel Index Troponin T Total Protein Albumin Urine WBC (Auto) Vancomycin Trough 03/14/19 03/14/19 03/14/19 17:34 17:46 17:55 WBC RBC Hgb Hct MCV RDW Plt Count Lymph % (Auto) Lymph # Seg Neutrophils % Seg Neuts % (Manual) Lymphocytes % (Manual) Monocytes % (Manual) Eosinophils % (Manual) Nucleated RBC % Seg Neutrophils # Man Lymphocytes # (Manual) POC ABG pH 7.241 L 7.244 L ABG pH POC ABG pCO2 50.4 H 50.1 H POC ABG pO2 156 H ABG pO2 ABG HCO3 ABG Base Excess ABG Hemoglobin Oxyhemoglobin Sodium Potassium Chloride Carbon Dioxide BUN Creatinine Glucose POC Glucose 49 L Lactic Acid Calcium TIBC Ferritin AST ALT Alkaline Phosphatase Total Creatine Kinase CK-MB (CK-2) CK-MB (CK-2) Rel Index Troponin T Total Protein Albumin Urine WBC (Auto) Vancomycin Trough 03/14/19 03/14/19 03/14/19 18:29 18:32 20:27 WBC RBC Hgb Hct MCV RDW Plt Count Lymph % (Auto) Lymph # Seg Neutrophils % Seg Neuts % (Manual) Lymphocytes % (Manual) Monocytes % (Manual) Eosinophils % (Manual) Nucleated RBC % Seg Neutrophils # Man Lymphocytes # (Manual) POC ABG pH ABG pH POC ABG pCO2 POC ABG pO2 ABG pO2 ABG HCO3 ABG Base Excess ABG Hemoglobin Oxyhemoglobin Sodium Potassium Chloride 112.6 H Carbon Dioxide 19 L BUN Creatinine 1.4 H Glucose 132 H POC Glucose 57 L 115 H Lactic Acid Calcium TIBC Ferritin AST ALT Alkaline Phosphatase Total Creatine Kinase CK-MB (CK-2) CK-MB (CK-2) Rel Index Troponin T Total Protein Albumin Urine WBC (Auto) Vancomycin Trough 03/14/19 03/14/19 03/15/19 23:47 Unknown 04:00 WBC RBC 2.77 L Hgb 8.5 L Hct 27.3 L MCV 98 H RDW 23.0 H Plt Count 27 L Lymph % (Auto) Lymph # Seg Neutrophils % Seg Neuts % (Manual) 75.0 H Lymphocytes % (Manual) 1.0 L Monocytes % (Manual) Eosinophils % (Manual) Nucleated RBC % 4.0 H Seg Neutrophils # Man Lymphocytes # (Manual) 0.1 L POC ABG pH ABG pH POC ABG pCO2 POC ABG pO2 ABG pO2 ABG HCO3 ABG Base Excess ABG Hemoglobin Oxyhemoglobin Sodium Potassium Chloride Carbon Dioxide BUN Creatinine Glucose POC Glucose 116 H Lactic Acid 3.30 H* Calcium TIBC Ferritin AST ALT Alkaline Phosphatase Total Creatine Kinase CK-MB (CK-2) CK-MB (CK-2) Rel Index Troponin T Total Protein Albumin Urine WBC (Auto) Vancomycin Trough 10/03/15/19 03/15/19 04:00 06:24 07:35 WBC RBC Hgb Hct MCV RDW Plt Count Lymph % (Auto) Lymph # Seg Neutrophils % Seg Neuts % (Manual) Lymphocytes % (Manual) Monocytes % (Manual) Eosinophils % (Manual) Nucleated RBC % Seg Neutrophils # Man Lymphocytes # (Manual) POC ABG pH 7.282 L ABG pH POC ABG pCO2 50.4 H POC ABG pO2 71 L ABG pO2 ABG HCO3 ABG Base Excess ABG Hemoglobin Oxyhemoglobin Sodium Potassium Chloride 112.1 H Carbon Dioxide 19 L BUN Creatinine 1.5 H Glucose 123 H POC Glucose 140 H Lactic Acid Calcium 8.2 L TIBC Ferritin AST ALT Alkaline Phosphatase Total Creatine Kinase CK-MB (CK-2) CK-MB (CK-2) Rel Index Troponin T Total Protein Albumin Urine WBC (Auto) Vancomycin Trough 03/15/19 03/15/19 03/16/19 11:47 23:25 04:33 WBC RBC Hgb Hct MCV RDW Plt Count Lymph % (Auto) Lymph # Seg Neutrophils % Seg Neuts % (Manual) Lymphocytes % (Manual) Monocytes % (Manual) Eosinophils % (Manual) Nucleated RBC % Seg Neutrophils # Man Lymphocytes # (Manual) POC ABG pH ABG pH 7.304 L POC ABG pCO2 POC ABG pO2 ABG pO2 174.4 H ABG HCO3 19.2 L ABG Base Excess -6.6 L ABG Hemoglobin 8.5 L Oxyhemoglobin Sodium Potassium Chloride Carbon Dioxide BUN Creatinine Glucose POC Glucose 161 H 139 H Lactic Acid Calcium TIBC Ferritin AST ALT Alkaline Phosphatase Total Creatine Kinase CK-MB (CK-2) CK-MB (CK-2) Rel Index Troponin T Total Protein Albumin Urine WBC (Auto) Vancomycin Trough 03/16/19 03/16/19 03/16/19 05:19 05:19 05:19 WBC RBC 2.92 L Hgb 8.9 L Hct 28.0 L MCV RDW 22.8 H Plt Count 42 L Lymph % (Auto) Lymph # Seg Neutrophils % Seg Neuts % (Manual) 84.0 H Lymphocytes % (Manual) 5.0 L Monocytes % (Manual) Eosinophils % (Manual) Nucleated RBC % Seg Neutrophils # Man 7.8 H Lymphocytes # (Manual) 0.5 L POC ABG pH ABG pH POC ABG pCO2 POC ABG pO2 ABG pO2 ABG HCO3 ABG Base Excess ABG Hemoglobin Oxyhemoglobin Sodium Potassium 5.2 H Chloride 114.0 H Carbon Dioxide 18 L BUN 22 H Creatinine 1.7 H Glucose 109 H POC Glucose Lactic Acid Calcium 8.0 L TIBC Ferritin AST ALT Alkaline Phosphatase Total Creatine Kinase 194 H CK-MB (CK-2) CK-MB (CK-2) Rel Index Troponin T Total Protein Albumin Urine WBC (Auto) Vancomycin Trough 03/16/19 03/16/19 03/16/19 05:51 12:19 17:42 WBC RBC Hgb Hct MCV RDW Plt Count Lymph % (Auto) Lymph # Seg Neutrophils % Seg Neuts % (Manual) Lymphocytes % (Manual) Monocytes % (Manual) Eosinophils % (Manual) Nucleated RBC % Seg Neutrophils # Man Lymphocytes # (Manual) POC ABG pH ABG pH POC ABG pCO2 POC ABG pO2 ABG pO2 ABG HCO3 ABG Base Excess ABG Hemoglobin Oxyhemoglobin Sodium Potassium Chloride Carbon Dioxide BUN Creatinine Glucose POC Glucose 123 H 134 H 130 H Lactic Acid Calcium TIBC Ferritin AST ALT Alkaline Phosphatase Total Creatine Kinase CK-MB (CK-2) CK-MB (CK-2) Rel Index Troponin T Total Protein Albumin Urine WBC (Auto) Vancomycin Trough 03/17/19 03/17/19 03/17/19 00:46 04:45 04:45 WBC RBC 2.42 L Hgb 7.5 L Hct 23.4 L MCV RDW 22.2 H Plt Count 37 L Lymph % (Auto) 6.2 L Lymph # 0.5 L Seg Neutrophils % 84.0 H Seg Neuts % (Manual) Lymphocytes % (Manual) Monocytes % (Manual) Eosinophils % (Manual) Nucleated RBC % Seg Neutrophils # Man Lymphocytes # (Manual) POC ABG pH ABG pH POC ABG pCO2 POC ABG pO2 ABG pO2 ABG HCO3 ABG Base Excess ABG Hemoglobin Oxyhemoglobin Sodium Potassium Chloride 115.4 H Carbon Dioxide 16 L BUN 27 H Creatinine 1.8 H Glucose 109 H POC Glucose 115 H Lactic Acid Calcium 7.9 L TIBC Ferritin AST ALT Alkaline Phosphatase Total Creatine Kinase CK-MB (CK-2) CK-MB (CK-2) Rel Index Troponin T Total Protein Albumin Urine WBC (Auto) Vancomycin Trough 03/17/19 03/17/19 03/17/19 05:00 06:05 11:15 WBC RBC Hgb Hct MCV RDW Plt Count Lymph % (Auto) Lymph # Seg Neutrophils % Seg Neuts % (Manual) Lymphocytes % (Manual) Monocytes % (Manual) Eosinophils % (Manual) Nucleated RBC % Seg Neutrophils # Man Lymphocytes # (Manual) POC ABG pH ABG pH 7.238 L POC ABG pCO2 POC ABG pO2 ABG pO2 114.7 H ABG HCO3 17.9 L ABG Base Excess -8.8 L ABG Hemoglobin 7.3 L Oxyhemoglobin Sodium Potassium Chloride Carbon Dioxide BUN Creatinine Glucose POC Glucose 124 H Lactic Acid Calcium TIBC 127 L Ferritin AST ALT Alkaline Phosphatase Total Creatine Kinase CK-MB (CK-2) CK-MB (CK-2) Rel Index Troponin T Total Protein Albumin Urine WBC (Auto) Vancomycin Trough 03/17/19 03/17/19 03/17/19 11:15 12:06 18:27 WBC RBC Hgb Hct MCV RDW Plt Count Lymph % (Auto) Lymph # Seg Neutrophils % Seg Neuts % (Manual) Lymphocytes % (Manual) Monocytes % (Manual) Eosinophils % (Manual) Nucleated RBC % Seg Neutrophils # Man Lymphocytes # (Manual) POC ABG pH ABG pH POC ABG pCO2 POC ABG pO2 ABG pO2 ABG HCO3 ABG Base Excess ABG Hemoglobin Oxyhemoglobin Sodium Potassium Chloride Carbon Dioxide BUN Creatinine Glucose POC Glucose 133 H 158 H Lactic Acid Calcium TIBC Ferritin 512.4 H AST ALT Alkaline Phosphatase Total Creatine Kinase CK-MB (CK-2) CK-MB (CK-2) Rel Index Troponin T Total Protein Albumin Urine WBC (Auto) Vancomycin Trough 03/17/19 03/18/19 03/18/19 23:30 04:00 05:45 WBC RBC 2.31 L Hgb 7.0 L Hct 22.0 L MCV RDW 22.2 H Plt Count 45 L Lymph % (Auto) Lymph # Seg Neutrophils % Seg Neuts % (Manual) 82.0 H Lymphocytes % (Manual) 12.0 L Monocytes % (Manual) Eosinophils % (Manual) 5.0 H Nucleated RBC % 1.0 H Seg Neutrophils # Man Lymphocytes # (Manual) 0.8 L POC ABG pH ABG pH POC ABG pCO2 POC ABG pO2 ABG pO2 113.7 H ABG HCO3 ABG Base Excess -3.0 L ABG Hemoglobin 7.0 L Oxyhemoglobin Sodium Potassium Chloride Carbon Dioxide BUN Creatinine Glucose POC Glucose 143 H Lactic Acid Calcium TIBC Ferritin AST ALT Alkaline Phosphatase Total Creatine Kinase CK-MB (CK-2) CK-MB (CK-2) Rel Index Troponin T Total Protein Albumin Urine WBC (Auto) Vancomycin Trough 03/18/19 03/18/19 03/18/19 05:48 05:50 14:01 WBC RBC Hgb Hct MCV RDW Plt Count Lymph % (Auto) Lymph # Seg Neutrophils % Seg Neuts % (Manual) Lymphocytes % (Manual) Monocytes % (Manual) Eosinophils % (Manual) Nucleated RBC % Seg Neutrophils # Man Lymphocytes # (Manual) POC ABG pH 7.299 L ABG pH POC ABG pCO2 48.7 H POC ABG pO2 ABG pO2 ABG HCO3 ABG Base Excess ABG Hemoglobin Oxyhemoglobin Sodium Potassium Chloride 109.9 H Carbon Dioxide BUN 28 H Creatinine 1.5 H Glucose 128 H POC Glucose 118 H Lactic Acid Calcium 7.6 L TIBC Ferritin AST ALT Alkaline Phosphatase Total Creatine Kinase CK-MB (CK-2) CK-MB (CK-2) Rel Index Troponin T Total Protein Albumin Urine WBC (Auto) Vancomycin Trough 03/18/19 03/19/19 03/19/19 23:53 04:43 06:02 WBC RBC Hgb Hct MCV RDW Plt Count Lymph % (Auto) Lymph # Seg Neutrophils % Seg Neuts % (Manual) Lymphocytes % (Manual) Monocytes % (Manual) Eosinophils % (Manual) Nucleated RBC % Seg Neutrophils # Man Lymphocytes # (Manual) POC ABG pH ABG pH 7.332 L POC ABG pCO2 POC ABG pO2 ABG pO2 116.2 H ABG HCO3 ABG Base Excess -3.3 L ABG Hemoglobin 7.3 L Oxyhemoglobin 94.9 L Sodium Potassium Chloride Carbon Dioxide BUN Creatinine Glucose POC Glucose 130 H 122 H Lactic Acid Calcium TIBC Ferritin AST ALT Alkaline Phosphatase Total Creatine Kinase CK-MB (CK-2) CK-MB (CK-2) Rel Index Troponin T Total Protein Albumin Urine WBC (Auto) Vancomycin Trough 03/19/19 03/19/19 03/19/19 12:16 15:33 23:44 WBC RBC Hgb Hct MCV RDW Plt Count Lymph % (Auto) Lymph # Seg Neutrophils % Seg Neuts % (Manual) Lymphocytes % (Manual) Monocytes % (Manual) Eosinophils % (Manual) Nucleated RBC % Seg Neutrophils # Man Lymphocytes # (Manual) POC ABG pH 7.316 L ABG pH POC ABG pCO2 45.7 H POC ABG pO2 ABG pO2 ABG HCO3 ABG Base Excess ABG Hemoglobin Oxyhemoglobin Sodium Potassium Chloride Carbon Dioxide BUN Creatinine Glucose POC Glucose 132 H 106 H Lactic Acid Calcium TIBC Ferritin AST ALT Alkaline Phosphatase Total Creatine Kinase CK-MB (CK-2) CK-MB (CK-2) Rel Index Troponin T Total Protein Albumin Urine WBC (Auto) Vancomycin Trough 03/20/19 03/20/19 03/20/19 01:00 EST 04:27 18:09 WBC RBC Hgb Hct MCV RDW Plt Count Lymph % (Auto) Lymph # Seg Neutrophils % Seg Neuts % (Manual) Lymphocytes % (Manual) Monocytes % (Manual) Eosinophils % (Manual) Nucleated RBC % Seg Neutrophils # Man Lymphocytes # (Manual) POC ABG pH ABG pH POC ABG pCO2 POC ABG pO2 ABG pO2 121.6 H ABG HCO3 ABG Base Excess ABG Hemoglobin 7.1 L Oxyhemoglobin Sodium Potassium 3.4 L Chloride 111.7 H Carbon Dioxide BUN 29 H Creatinine Glucose POC Glucose 133 H Lactic Acid Calcium 8.0 L TIBC Ferritin AST ALT Alkaline Phosphatase Total Creatine Kinase CK-MB (CK-2) CK-MB (CK-2) Rel Index Troponin T Total Protein Albumin Urine WBC (Auto) Vancomycin Trough 03/20/19 03/21/19 23:36 05:42 WBC RBC Hgb Hct MCV RDW Plt Count Lymph % (Auto) Lymph # Seg Neutrophils % Seg Neuts % (Manual) Lymphocytes % (Manual) Monocytes % (Manual) Eosinophils % (Manual) Nucleated RBC % Seg Neutrophils # Man Lymphocytes # (Manual) POC ABG pH ABG pH POC ABG pCO2 POC ABG pO2 ABG pO2 ABG HCO3 ABG Base Excess ABG Hemoglobin Oxyhemoglobin Sodium Potassium Chloride Carbon Dioxide BUN Creatinine Glucose POC Glucose 114 H 116 H Lactic Acid Calcium TIBC Ferritin AST ALT Alkaline Phosphatase Total Creatine Kinase CK-MB (CK-2) CK-MB (CK-2) Rel Index Troponin T Total Protein Albumin Urine WBC (Auto) Vancomycin Trough Chest x-ray: image reviewed (pulmonary infiltrates improving; ETT in good position) Allied health notes reviewed: nursing
[2019-03-21] MEDS: GLYCOPYRROLATE 1 MG TAB PO SCH ×2 (09:27→21:06)
[2019-03-21] MEDS: FOLIC ACID 1 MG TAB PO SCH (09:27)
[2019-03-21] MEDS: THIAMINE 100 MG TAB PO SCH (09:28)
[2019-03-21] MEDS: chlordiazePOXIDE 25 MG CAP PO SCH (09:28)
[2019-03-21] MEDS: RIFAXIMIN 550 MG TAB PO SCH ×2 (09:28→21:06)
[2019-03-21] MEDS: FLUTICASONE PROPIONATE NASAL SPRAY 16 GM NS SCH (09:28)
[2019-03-21] MEDS: FAMOTIDINE 20 MG TAB PO SCH (09:28)
[2019-03-21 09:35] LABS: Total Cells Counted 100
[2019-03-21 09:36] LABS: Anisocytosis 1+; Band Neutrophils # (Manual) 0.1 K/mm3; Basophils % (Manual) 0 % (0.0-1.8); Macrocytosis 1+; Platelet Estimate Consistent w Auto; Target Cells Few
--- NOTE | 2019-03-21 10:42 | Progress Note ---
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 ID consult appreciated KERRI is due to ATN and vasomotor nephropathy -monitor cr level, stable and improved VRE UTI, septic shock, sepsis POA abx per ID , off pressors since 03/17 thrombocytopenia likely 2/2 sepsis, stable Acute Metabolic encephalopathy with agitation - Probably due to the acute infection - head CT scan neg x 2, Acute on chronic Pancytopenia - continue to monitor levels - Oncology consulted Hypernatremia - probably 2/2 dehydration - improved on IV D5W Hyperkalemia - s/p kayexalate, resolved Hypoglycemia -On hypoglycemic protocol H/o CLD -Continue lactulose and rifaximin Nutrition Continue tube feeding DVT prophylaxis - On SCDs due to thrombocytopenia Disposition: Prognosis is guarded/poor Critical time spent: 35 mins History Interval history: Intubated and not sedated, , no vomiting, no fevers, no agitation, no seizures Hospitalist Physical - Physical exam Narrative exam: General.: No distress, intubated HEENT: Moist mucous membranes, extraocular muscles intact, no lymphadenopathy Neck: supple Cardiac: S1-S2 heard Lungs: clear to auscultation bilaterally Abdomen: soft , nontender, nondistended, bowel sounds positive Extremities: no edema clubbing or cyanosis Skin: no rash or lesions Neurologic: Intubated, not sedated. Minimally responsive. Grimaces to painful stimuli, does not open eyes, does not turn to voice, but squeezes her face to loud noise Psych: Intubated - Constitutional Vitals: Temp Pulse Resp BP Pulse Ox 97.3 F L 80 15 95/56 100 03/21/19 04:00 03/21/19 10:00 03/21/19 10:00 03/21/19 10:00 03/21/19 10:00 General appearance: Present: no acute distress, other (mildly agitated) Results - Labs CBC & Chem 7: 03/21/19 08:12 03/20/19 01:00 EST Labs: Laboratory Last Values WBC 3.9 K/mm3 (4.5-11.0) L 03/21/19 08:12 RBC 2.25 M/mm3 (3.65-5.03) L 03/21/19 08:12 Hgb 7.1 gm/dl (10.1-14.3) L 03/21/19 08:12 Hct 21.6 % (30.3-42.9) L 03/21/19 08:12 MCV 96 fl (79-97) 03/21/19 08:12 MCH 31 pg (28-32) 03/21/19 08:12 MCHC 33 % (30-34) 03/21/19 08:12 RDW 21.6 % (13.2-15.2) H 03/21/19 08:12 Plt Count 105 K/mm3 (140-440) L 03/21/19 08:12 Lymph % (Auto) 6.2 % (13.4-35.0) L 03/17/19 04:45 Floyd % (Auto) Piano Instructor 03/21/19 08:12 Eos % (Auto) 3.2 % (0.0-4.3) 03/17/19 04:45 Baso % (Auto) 0.2 % (0.0-1.8) 03/17/19 04:45 Lymph # 0.5 K/mm3 (1.2-5.4) L 03/17/19 04:45 Floyd # 0.6 K/mm3 (0.0-0.8) 03/17/19 04:45 Eos # 0.3 K/mm3 (0.0-0.4) 03/17/19 04:45 Baso # 0.0 K/mm3 (0.0-0.1) 03/17/19 04:45 Add Manual Diff Complete 03/21/19 08:12 Total Counted 100 03/21/19 08:12 Seg Neutrophils % 84.0 % (40.0-70.0) H 03/17/19 04:45 Seg Neuts % (Manual) 67.0 % (40.0-70.0) 03/21/19 08:12 Band Neutrophils % 2.0 % 03/21/19 08:12 Lymphocytes % (Manual) 13.0 % (13.4-35.0) L 03/21/19 08:12 Reactive Lymphs % (Man) 1.0 % 03/21/19 08:12 Monocytes % (Manual) 13.0 % (0.0-7.3) H 03/21/19 08:12 Eosinophils % (Manual) 3.0 % (0.0-4.3) 03/21/19 08:12 Basophils % (Manual) 0 % (0.0-1.8) 03/21/19 08:12 Metamyelocytes % 1.0 % 03/21/19 08:12 Myelocytes % 0 % 03/21/19 08:12 Promyelocytes % 0 % 03/21/19 08:12 Blast Cells % 0 % 03/21/19 08:12 Nucleated RBC % Not Reportable 03/21/19 08:12 Seg Neutrophils # 7.2 K/mm3 (1.8-7.7) 03/17/19 04:45 Seg Neutrophils # Man 2.6 K/mm3 (1.8-7.7) 03/21/19 08:12 Band Neutrophils # 0.1 K/mm3 03/21/19 08:12 Lymphocytes # (Manual) 0.5 K/mm3 (1.2-5.4) L 03/21/19 08:12 Abs React Lymphs (Man) 0.0 K/mm3 03/21/19 08:12 Monocytes # (Manual) 0.5 K/mm3 (0.0-0.8) 03/21/19 08:12 Eosinophils # (Manual) 0.1 K/mm3 (0.0-0.4) 03/21/19 08:12 Basophils # (Manual) 0.0 K/mm3 (0.0-0.1) 03/21/19 08:12 Metamyelocytes # 0.0 K/mm3 03/21/19 08:12 Myelocytes # 0.0 K/mm3 03/21/19 08:12 Promyelocytes # 0.0 K/mm3 03/21/19 08:12 Blast Cells # 0.0 K/mm3 03/21/19 08:12 Pathologist Review 03/18/19 05:45 WBC Morphology Not Reportable 03/21/19 08:12 Hypersegmented Neuts Not Reportable 03/21/19 08:12 Hyposegmented Neuts Not Reportable 03/21/19 08:12 Hypogranular Neuts Not Reportable 03/21/19 08:12 Smudge Cells Not Reportable 03/21/19 08:12 Toxic Granulation Not Reportable 03/21/19 08:12 Toxic Vacuolation Not Reportable 03/21/19 08:12 Dohle Bodies Not Reportable 03/21/19 08:12 Pelger-Huet Anomaly Not Reportable 03/21/19 08:12 Sheila Rods Not Reportable 03/21/19 08:12 Platelet Estimate Consistent w auto 03/21/19 08:12 Clumped Platelets Not Reportable 03/21/19 08:12 Plt Clumps, EDTA Not Reportable 03/21/19 08:12 Large Platelets Not Reportable 03/21/19 08:12 Giant Platelets Not Reportable 03/21/19 08:12 Platelet Satelliting Not Reportable 03/21/19 08:12 Plt Morphology Comment Not Reportable 03/21/19 08:12 RBC Morphology Not Reportable 03/21/19 08:12 Dimorphic RBCs Not Reportable 03/21/19 08:12 Polychromasia Not Reportable 03/21/19 08:12 Hypochromasia Not Reportable 03/21/19 08:12 Poikilocytosis Not Reportable 03/21/19 08:12 Anisocytosis 1+ 03/21/19 08:12 Microcytosis Not Reportable 03/21/19 08:12 Macrocytosis 1+ 03/21/19 08:12 Spherocytes Not Reportable 03/21/19 08:12 Pappenheimer Bodies Not Reportable 03/21/19 08:12 Sickle Cells Not Reportable 03/21/19 08:12 Target Cells Few 03/21/19 08:12 Tear Drop Cells Not Reportable 03/21/19 08:12 Ovalocytes Not Reportable 03/21/19 08:12 Helmet Cells Not Reportable 03/21/19 08:12 Ann-Power Bodies Not Reportable 03/21/19 08:12 Iaeger Rings Not Reportable 03/21/19 08:12 [place] Cells Not Reportable 03/21/19 08:12 Bite Cells Not Reportable 03/21/19 08:12 Crenated Cell Not Reportable 03/21/19 08:12 Elliptocytes Not Reportable 03/21/19 08:12 Acanthocytes (Spur) Not Reportable 03/21/19 08:12 Rouleaux Not Reportable 03/21/19 08:12 Hemoglobin C Crystals Not Reportable 03/21/19 08:12 Schistocytes Not Reportable 03/21/19 08:12 Malaria parasites Not Reportable 03/21/19 08:12 [place] Bodies Not Reportable 03/21/19 08:12 Hem Pathologist Commnt No 03/21/19 08:12 POC ABG pH 7.316 (7.35-7.45) L 03/19/19 15:33 ABG pH 7.380 pH Units (7.350-7.450) 03/20/19 04:27 POC ABG pCO2 45.7 (35-45) H 03/19/19 15:33 ABG pCO2 40.2 mm Hg 03/20/19 04:27 POC ABG pO2 100 (80-105) 03/19/19 15:33 ABG pO2 121.6 mm Hg (80.0-90.0) H 03/20/19 04:27 POC ABG HCO3 23.3 (22-26 mml/L) 03/19/19 15:33 ABG HCO3 23.3 mmol/L (20.0-26.0) 03/20/19 04:27 POC ABG Total CO2 25 (23-27mmol/L) 03/19/19 15:33 POC ABG O2 Sat 97 03/19/19 15:33 ABG O2 Saturation 98.3 % (95.0-99.0) 03/20/19 04:27 ABG O2 Content 9.9 (0.0-44) 03/20/19 04:27 POC ABG Base Excess -3 ((-2) - (+3)mmol/L) 03/19/19 15:33 ABG Base Excess -1.7 mmol/L (-2.0-3.0) 03/20/19 04:27 ABG Hemoglobin 7.1 gm/dl (12.0-16.0) L 03/20/19 04:27 ABG Carboxyhemoglobin 2.5 % (0.0-5.0) 03/20/19 04:27 ABG Methemoglobin 0.4 % (0.0-1.5) 03/20/19 04:27 Oxyhemoglobin 95.5 % (95.0-99.0) 03/20/19 04:27 FiO2 25 % 03/20/19 04:27 Sodium 145 mmol/L (137-145) 03/20/19 01:00 EST Potassium 3.4 mmol/L (3.6-5.0) L 03/20/19 01:00 EST Chloride 111.7 mmol/L (98-107) H 03/20/19 01:00 EST Carbon Dioxide 23 mmol/L (22-30) 03/20/19 01:00 EST Anion Gap 14 mmol/L 03/20/19 01:00 EST BUN 29 mg/dL (7-17) H 03/20/19 01:00 EST Creatinine 1.2 mg/dL (0.7-1.2) 03/20/19 01:00 EST Estimated GFR 54 ml/min 03/20/19 01:00 EST BUN/Creatinine Ratio 24 % 03/20/19 01:00 EST Glucose 94 mg/dL (65-100) 03/20/19 01:00 EST POC Glucose 116 (70-105) H 03/21/19 05:42 Hemoglobin A1c 4.6 % (4-6) 03/10/19 13:16 Lactic Acid 1.50 mmol/L (0.7-2.0) 03/15/19 13:15 Calcium 8.0 mg/dL (8.4-10.2) L 03/20/19 01:00 EST Iron 81 ug/dL (37-170) 03/17/19 11:15 TIBC 127 mcg/dL (250-450) L 03/17/19 11:15 Ferritin 512.4 ng/mL (13.0-400.0) H 03/17/19 11:15 Total Bilirubin 0.50 mg/dL (0.1-1.2) 03/14/19 06:44 AST 144 units/L (5-40) H 03/14/19 06:44 ALT 90 units/L (7-56) H 03/14/19 06:44 Alkaline Phosphatase 226 units/L (35-129) H 03/14/19 06:44 Ammonia 54.0 umol/L (25-60) 03/11/19 07:29 Total Creatine Kinase 194 units/L (30-135) H 03/16/19 05:19 CK-MB (CK-2) 8.6 ng/mL (0.0-4.0) H 03/14/19 06:44 CK-MB (CK-2) Rel Index 7.1 (0-4) H 03/14/19 06:44 Troponin T 0.056 ng/mL (0.00-0.029) H D 03/14/19 06:44 Total Protein 6.7 g/dL (6.3-8.2) 03/14/19 06:44 Albumin 2.2 g/dL (3.9-5) L 03/14/19 06:44 Albumin/Globulin Ratio 0.5 % 03/14/19 06:44 Triglycerides 62 mg/dL (2-149) 03/14/19 06:44 Cholesterol 133 mg/dL (50-199) 03/14/19 06:44 LDL Cholesterol Direct 89 mg/dL (50-130) 03/14/19 06:44 HDL Cholesterol 43 mg/dL (40-59) 03/14/19 06:44 Cholesterol/HDL Ratio 3.09 % 03/14/19 06:44 Urine Color Straw (Yellow) 03/10/19 14:38 Urine Turbidity Clear (Clear) 03/10/19 14:38 Urine pH 7.0 (5.0-7.0) 03/10/19 14:38 Ur Specific [place] 1.009 (1.003-1.030) 03/10/19 14:38 Urine Protein <15 mg/dl mg/dL (Negative) 03/10/19 14:38 Urine Glucose (UA) Neg mg/dL (Negative) 03/10/19 14:38 Urine Ketones Neg mg/dL (Negative) 03/10/19 14:38 Urine Blood Neg (Negative) 03/10/19 14:38 Urine Nitrite Neg (Negative) 03/10/19 14:38 Urine Bilirubin Neg (Negative) 03/10/19 14:38 Urine Urobilinogen < 2.0 mg/dL (<2.0) 03/10/19 14:38 Ur Leukocyte Esterase Sm (Negative) 03/10/19 14:38 Urine WBC (Auto) 9.0 /HPF (0.0-6.0) H 03/10/19 14:38 Urine RBC (Auto) 2.0 /HPF (0.0-6.0) 03/10/19 14:38 U Epithel Cells (Auto) 1.0 /HPF (0-13.0) 03/10/19 14:38 Urine Bacteria (Auto) 2+ /HPF (Negative) 03/10/19 14:38 Urine Mucus Few /HPF 03/10/19 14:38 Vancomycin Trough 39.7 ug/mL (5.0-20.0) H 03/13/19 05:58 Random Vancomycin 27.6 ug/mL (0-40.0) 03/14/19 05:44 Active Medications - Current Medications Current Medications: Generic Name Dose Route Start Last Admin Trade Name Freq PRN Reason Stop Dose Admin Acetaminophen 650 mg 03/10/19 17:46 Tylenol PO Q4H PRN Pain MILD(1-3)/Fever >100.5/GUERRERO Albuterol 2.5 mg 03/11/19 03:52 Proventil IH TID PRN Wheezing Albuterol/Ipratropium 1 ampul 03/11/19 08:00 03/21/19 07:11 Duoneb *Not For Prn Use* IH 1 ampul Q6HRT CONNIE Administration Lipase/Protease/Amylase 1 each 03/14/19 13:25 Pancremartine Sahni 10,500 Unit FEEDTUBE PRN PRN For Clogged Feeding Tube Chlordiazepoxide HCl 25 mg 03/11/19 10:00 03/21/19 09:28 Librium PO 25 mg DAILY CONNIE Administration Dextrose 50 ml 03/10/19 22:27 03/14/19 17:55 D50w (25gm) Syringe IV 50 ml Q30MIN PRN Administration Hypoglycemia Famotidine 20 mg 03/15/19 10:00 03/21/19 09:28 Pepcid PO 20 mg DAILY CONNIE Administration Fluticasone Propionate 50 mcg 03/11/19 10:00 03/21/19 09:28 Flonase NS 50 mcg QDAY CONNIE Administration Folic Acid 1 mg 03/11/19 10:00 03/21/19 09:27 Folvite PO 1 mg QDAY CONNIE Administration Glycopyrrolate 1 mg 03/20/19 14:00 03/21/19 09:27 Robinul PO 1 mg BID CONNIE Administration Haloperidol 0.5 mg 03/11/19 03:52 03/12/19 09:32 Haldol PO 0.5 mg Q6H PRN Administration Agitation Hydrophilic Ointment 1 applic 03/14/19 06:51 Vaseline Lip Therapy TP Q2HR PRN Dry Lips Propofol 1,000 mg in 100 mls @ 2.587 mls/hr 03/14/19 07:00 03/14/19 12:00 Diprivan 10 Mg/Ml IV 0 mcg/kg/min TITR CONNIE 0 mls/hr Titration Protocol 5 MCG/KG/MIN Fentanyl Citrate 2,000 mcg in 100 mls @ 4.312 mls/hr 03/14/19 11:00 03/18/19 21:00 Fentanyl Drip Premix IV 2 mcg/kg/hr TITR CONNIE 8.623 mls/hr Titration Protocol 1 MCG/KG/HR Vasopressin 20 unit/ Sodium 101 mls @ 9.09 mls/hr 03/14/19 14:00 03/18/19 12:30 Chloride IV Infused TITR CONNIE Titration Protocol 0.03 UNITS/MIN Dopamine HCl/Dextrose 800 mg in 250 mls @ 3.234 mls/hr 03/14/19 22:00 03/18/19 08:45 Intropin Drip 800 Mg/D5w 250 Ml IV 0 mcg/kg/min TITR CONNIE 0 mls/hr Titration Protocol 2 MCG/KG/MIN Sodium Chloride 500 mls @ 15 mls/hr 03/17/19 20:00 Nacl 0.9% 500 Ml IV PRN CONNIE Piperacillin Sod/Tazobactam Sod 4.5 gm in 100 mls @ 200 mls/hr 03/18/19 22:00 03/21/19 05:50 Zosyn/Ns 4.5gm/100ml IV 200 mls/hr Q8HR [facility] Administration Protocol Insulin Human Lispro 0 unit 03/11/19 00:00 03/21/19 06:00 Humalog SUB-Q Not Given Q6HR [facility] Protocol Morphine Sulfate 2 mg 03/10/19 17:56 03/20/19 08:48 Morphine IV 2 mg Q4H PRN Administration Pain, Moderate (4-6) Multi-Ingred Cream/Lotion/Oil/Oint 1 applic 03/14/19 06:51 03/20/19 10:22 Artificial Tears Ophth Oint OU 0.35 applic Q4HR PRN Administration Dry Eye(s) Ondansetron HCl 4 mg 03/10/19 17:46 03/11/19 05:04 Zofran IV 4 mg Q8H PRN Administration Nausea And Vomiting Rifaximin 550 mg 03/11/19 10:00 03/21/19 09:28 Xifaxan PO 550 mg BID CONNIE Administration Scopolamine 1 each 03/20/19 15:00 03/20/19 14:09 Transderm-Scop TD 1 each Q3D CONNIE Administration Simple Syrup 15 ml 03/14/19 13:25 Simple Syrup FEEDTUBE PRN PRN Hypoglycemia Simple Syrup 30 ml 03/14/19 13:25 Simple Syrup FEEDTUBE PRN PRN Hypoglycemia Sodium Bicarbonate 325 mg 03/14/19 13:25 Sodium Bicarbonate FEEDTUBE PRN PRN For Clogged Feeding Tube Sodium Chloride 10 ml 03/10/19 22:00 03/21/19 09:28 Sodium Chloride Flush Syringe 10 Ml IV 10 ml BID CONNIE Administration Sodium Chloride 10 ml 03/10/19 17:46 03/13/19 22:50 Sodium Chloride Flush Syringe 10 Ml IV 10 ml PRN PRN Administration LINE FLUSH Thiamine HCl 100 mg 03/11/19 10:00 03/21/19 09:28 Vitamin B-1 PO 100 mg QDAY CONNIE Administration Nutrition/Malnutrition Assess - Dietary Evaluation Nutrition/Malnutrition Findings: Nutrition Notes Start: 03/11/19 10:01 Freq: Status: Active Protocol: Document 03/17/19 11:08 AP (Rec: 03/17/19 11:33 AP [id number]) Co-Sign 03/17/19 11:08 LM Nutrition Notes Need for Assessment generated from: MD Order Initial or Follow up Reassessment Current Diagnosis COPD,Decubitus(Pressure Ulcer) ,Hypertension Other Pertinent Diagnosis AMS/nonverbal, Hep C, Anemia, Renal stones Current Diet Vital AF 1.2 at 55ml/hr Labs/Tests Reviewed Pertinent Medications Reviewed Height 5 ft 3 in Weight 96.5 kg [place] Body Weight (kg) 52.27 BMI 37.7 Weight Status Obese Subjective/Other Information F/U for TF rate/tolerance. Vital AF 1.2 running at 55ml/ hr. Percent of energy/protein needs met: 93%/94% Minimum of two criteria No #1 Nutrition Diagnosis Inadequate oral intake Diagnosis Progress(for reassessment Continues documentation) Is patient on ventilator? Yes Is Patient Ambulatory and/or Out of Bed No REE-([facility]-confined to bed) 1774.128 Calculation Used for Recommendations [facility] Additional Notes Protein: >105 g (>2g/kg IBW 52 .27 kg) Fluids: 1 ml/kcal or per MD Nutrition Intervention Change Diet Order: TF Nutrition Support: Vital AF 1.2 at 55ml/hr Flush 100ml q4h Kcal 1,584 Protein (gm) 99 Fluid (mL) 1,071 Goal #1 TF tolerance Goal #2 TF continue to meet at least 80% of estimated energy and protein needs. Anticipated Discharge Needs: unable to determine at this time Follow-Up By: 03/24/19 Additional Comments F/U for TF tolerance/rate.
[2019-03-21] MEDS: LACTATED RINGERS 2,000 ML IV SCH ×2 (12:37→21:00)
--- NOTE | 2019-03-21 16:05 | Progress Note ---
Assessment and Plan Cultures: 03/10 UCx - VRE faecim 03/10 BCx - NGTD 03/14 BCX - NGTD A/P: 68 yo F PMHx hepatitis C, Dm2, many other comorbidities admitted with altered mental status, possible secondary to VRE UTI: 1. VRE UTI - given worsening thrombocytopenia would treat with daptomycin. Would also ensure steen catheter is changed prior to cessation of antibiotics. 2. Hepatitis C 3. DM2 - tight glycemic control for wound healing 4. Hypoxic respiratory failure secondary to aspiration pneumonia - Continue pip- david for now, expect 5-7 day course pending clinical improvement. Recs: - completed daptomycin yesterday - continue pip-david 4.5g q6h. given prolonged intubated and critical illness will extend to 10 days, but longer course not likely clinically useful. Berta Stacy MD [facility] ([facility]) M: [phone] O: [phone] F: [phone] Subjective Date of service: 03/21/19 Principal diagnosis: Severe sepsis with shock; Ac. hypoxemic resp failure; cardiac arrest; PNA Interval history: remains intubated and sedated Objective - Exam Narrative Exam: Constitutional: intubated, sedated Head, Ears, Nose: Normocephalic, atraumatic. External ears, nose normal Eyes: Conjunctivae/corneas clear. No icterus. No ptosis. Neck: Supple, no meningeal signs Oral: dentition fair, no thrush Cardiovascular: S1, S2 normal. Respiratory: Good air entry, clear to auscultation bilaterally GI: Soft, non-tender; bowel sounds normal. No peritoneal signs. Musculoskeletal: No pedal edema, no cyanosis. Skin: No rash or abscess Hem/Lymphatic: No palpable cervical or supraclavicular nodes. No lymphangitis Psych: Sedated Neurological: Intubated, sedated - Constitutional Vitals: Vital Signs Temp Pulse Resp BP Pulse Ox 98.1 F 87 28 H 95/56 100 03/21/19 11:54 03/21/19 12:30 03/21/19 12:30 03/21/19 12:30 03/21/19 12:30 Temperature -Last 24 Hours Temperature 98.1 F Temperature 96.3 F Temperature 97.3 F Temperature 97.4 F Temperature 97.4 F Temperature 97.7 F Temperature 96.7 F - Labs CBC & Chem 7: 03/21/19 08:12 03/20/19 01:00 EST Labs: Abnormal lab results 03/20/19 03/20/19 03/20/19 Range/Units 12:06 18:09 23:36 WBC (4.5-11.0) K/mm3 RBC (3.65-5.03) M/mm3 Hgb (10.1-14.3) gm/dl Hct (30.3-42.9) % RDW (13.2-15.2) % Plt Count (140-440) K/mm3 Lymphocytes % (Manual) (13.4-35.0) % Monocytes % (Manual) (0.0-7.3) % Lymphocytes # (Manual) (1.2-5.4) K/mm3 POC ABG pO2 (80-105) POC Glucose 134 H 133 H 114 H (70-105) 03/21/19 03/21/19 03/21/19 Range/Units 05:42 08:12 14:09 WBC 3.9 L (4.5-11.0) K/mm3 RBC 2.25 L (3.65-5.03) M/mm3 Hgb 7.1 L (10.1-14.3) gm/dl Hct 21.6 L (30.3-42.9) % RDW 21.6 H (13.2-15.2) % Plt Count 105 L (140-440) K/mm3 Lymphocytes % (Manual) 13.0 L (13.4-35.0) % Monocytes % (Manual) 13.0 H (0.0-7.3) % Lymphocytes # (Manual) 0.5 L (1.2-5.4) K/mm3 POC ABG pO2 120 H (80-105) POC Glucose 116 H (70-105)
--- NOTE | 2019-03-21 16:28 | Cat Scan Report ---
CT HEAD WITHOUT CONTRAST HISTORY: Altered mental status. TECHNIQUE: Axial imaging performed from the skull apex through the skull base without the use of con trast. All CT scans at this location are performed using CT dose reduction for ALARA by means of aut omated exposure control. COMPARISON: 03/10/2019 FINDINGS: Parenchyma: No acute intracranial hemorrhage or parenchymal abnormality.. Mild hypoattenuation thro ughout the white matter is noted and consistent with chronic microvascular ischemic disease. Ventricles: There is mild diffuse brain atrophy with commensurate ventricular enlargement which is l ikely age appropriate. Soft tissues: Soft tissues including the orbits appear normal. Bones: No acute osseous abnormality. Assumed 9 mm meningioma along the left temporal convexity is u nchanged. Sinuses: The paranasal sinuses are clear. A right nasal tube is in position. The mastoid air cells a re partially opacified with fluid. No associated fracture is detected. IMPRESSION: No acute intracranial process. Fluid in the mastoid air cells. Signer Name: Seng Varela Jr, MD Signed: 03/21/2019 4:24 PM Workstation Name: [id number]
[2019-03-21] MEDS: MORPHINE 2 MG/1 ML INJ IV PRN (21:07)
[2019-03-22] MEDS: IPRATROPIUM/ALBUTEROL SULFATE 3 ML AMPUL.NEB IH SCH ×4 (02:05→20:14)
[2019-03-22] MEDS: MORPHINE 2 MG/1 ML INJ IV PRN (02:47)
[2019-03-22] MEDS: INSULIN LISPRO 100 UNIT/ML SUB-Q SCH ×3 (04:08→13:12)
[2019-03-22] MEDS: PIPERACIL/TAZOBACTA 4.5/NS 100 4.5 GM/100 ML VIAL IV SCH ×3 (06:24→22:11)
--- NOTE | 2019-03-22 06:39 | Hem/Onc Progress Note ---
Assessment and Plan 1. h/o Leukopenia and the patient has a history of liver disease and alcohol usage. These may have a role. Thrombocytopenia may have a similar reason. Deficiency investigations. In January, B12 was 1400, folate 13. 2. Encephalopathy, being treated for sepsis. 3. History of electrolyte imbalance. 4. History of hypertension. 5. History of chronic obstructive pulmonary disease. 6. AST, ALT abnormality. 7. The patient was placed on reverse isolation. I will follow the patient during inpatient stay. wbc better - but pt on vent b12 - folate normal - will follow plt low - may be sec to infection/meds/antibiotics - pt was on vanco - zosyn - now daptomycin ID following pt plt still low but no bleeding b12- folate - iron ferritin WNL platelets better - Patient Problems (1) Leukopenia Current Visit: Yes Status: Acute Qualifiers: Leukopenia type: unspecified Qualified Code(s): D72.819 - Decreased white blood cell count, unspecified Subjective Date of service: 03/22/19 Principal diagnosis: low plt Interval history: no bleeding - more awake Objective - Exam Narrative Exam: Pain - on vent General appearance - intubated Performance status - complete dependence Eyes - no icterus, ENT - no bleeding LNs cervical not palpable Neck - no LN Respiratory Normal Breath sounds - CTA anteriorly CVS S1 S2 + Extremities edema+ General GI Soft Rectal deferred female - deferred Skin warm Musculoskeletal on vent Neurologically intubated - Constitutional Vitals: Last Vital Signs Temp 97.3 F L 03/22/19 03:49 Pulse 69 03/22/19 05:00 Resp 21 03/22/19 05:00 BP 138/82 03/22/19 05:00 Pulse Ox 100 03/22/19 05:00 - Labs Lab Results: Laboratory Results - last 24 hr 03/20/19 03/21/19 03/21/19 12:06 08:12 11:56 WBC 3.9 L RBC 2.25 L Hgb 7.1 L Hct 21.6 L MCV 96 MCH 31 MCHC 33 RDW 21.6 H Plt Count 105 L [place] % (Auto) Lead Instructor/Flight Attendant Add Manual Diff Complete Total Counted 100 Seg Neuts % (Manual) 67.0 Band Neutrophils % 2.0 Lymphocytes % (Manual) 13.0 L Reactive Lymphs % (Man) 1.0 Monocytes % (Manual) 13.0 H Eosinophils % (Manual) 3.0 Basophils % (Manual) 0 Metamyelocytes % 1.0 Myelocytes % 0 Promyelocytes % 0 Blast Cells % 0 Nucleated RBC % Not Reportable Seg Neutrophils # Man 2.6 Band Neutrophils # 0.1 Lymphocytes # (Manual) 0.5 L Abs React Lymphs (Man) 0.0 Monocytes # (Manual) 0.5 Eosinophils # (Manual) 0.1 Basophils # (Manual) 0.0 Metamyelocytes # 0.0 Myelocytes # 0.0 Promyelocytes # 0.0 Blast Cells # 0.0 WBC Morphology Not Reportable Hypersegmented Neuts Not Reportable Hyposegmented Neuts Not Reportable Hypogranular Neuts Not Reportable Smudge Cells Not Reportable Toxic Granulation Not Reportable Toxic Vacuolation Not Reportable Dohle Bodies Not Reportable Pelger-Huet Anomaly Not Reportable Sheila Rods Not Reportable Platelet Estimate Consistent w auto Clumped Platelets Not Reportable Plt Clumps, EDTA Not Reportable Large Platelets Not Reportable Giant Platelets Not Reportable Platelet Satelliting Not Reportable Plt Morphology Comment Not Reportable RBC Morphology Not Reportable Dimorphic RBCs Not Reportable Polychromasia Not Reportable Hypochromasia Not Reportable Poikilocytosis Not Reportable Anisocytosis 1+ Microcytosis Not Reportable Macrocytosis 1+ Spherocytes Not Reportable Pappenheimer Bodies Not Reportable Sickle Cells Not Reportable Target Cells Few Tear Drop Cells Not Reportable Ovalocytes Not Reportable Helmet Cells Not Reportable Ann-Seagraves Bodies Not Reportable [place] Rings Not Reportable [place] Cells Not Reportable Bite Cells Not Reportable Crenated Cell Not Reportable Elliptocytes Not Reportable Acanthocytes (Spur) Not Reportable Rouleaux Not Reportable Hemoglobin C Crystals Not Reportable Schistocytes Not Reportable Malaria parasites Not Reportable [place] Bodies Not Reportable Hem Pathologist Commnt No POC ABG pH POC ABG pCO2 POC ABG pO2 POC ABG HCO3 POC ABG Total CO2 POC ABG O2 Sat POC ABG Base Excess FiO2 POC Glucose 134 H 102 Lactic Acid Procalcitonin 03/21/19 03/21/19 03/21/19 13:05 13:05 14:09 WBC RBC Hgb Hct MCV MCH MCHC RDW Plt Count [place] % (Auto) Add Manual Diff Total Counted Seg Neuts % (Manual) Band Neutrophils % Lymphocytes % (Manual) Reactive Lymphs % (Man) Monocytes % (Manual) Eosinophils % (Manual) Basophils % (Manual) Metamyelocytes % Myelocytes % Promyelocytes % Blast Cells % Nucleated RBC % Seg Neutrophils # Man Band Neutrophils # Lymphocytes # (Manual) Abs React Lymphs (Man) Monocytes # (Manual) Eosinophils # (Manual) Basophils # (Manual) Metamyelocytes # Myelocytes # Promyelocytes # Blast Cells # WBC Morphology Hypersegmented Neuts Hyposegmented Neuts Hypogranular Neuts Smudge Cells Toxic Granulation Toxic Vacuolation Dohle Bodies Pelger-Huet Anomaly Sheila Rods Platelet Estimate Clumped Platelets Plt Clumps, EDTA Large Platelets Giant Platelets Platelet Satelliting Plt Morphology Comment RBC Morphology Dimorphic RBCs Polychromasia Hypochromasia Poikilocytosis Anisocytosis Microcytosis Macrocytosis Spherocytes Pappenheimer Bodies Sickle Cells Target Cells Tear Drop Cells Ovalocytes Helmet Cells Ann-Seagraves Bodies [place] Rings [place] Cells Bite Cells Crenated Cell Elliptocytes Acanthocytes (Spur) Rouleaux Hemoglobin C Crystals Schistocytes Malaria parasites [place] Bodies Hem Pathologist Commnt POC ABG pH 7.384 POC ABG pCO2 44.7 POC ABG pO2 120 H POC ABG HCO3 26.6 POC ABG Total CO2 28 POC ABG O2 Sat 99 POC ABG Base Excess 2 FiO2 25 POC Glucose Lactic Acid 0.80 Procalcitonin 1.19 03/21/19 03/22/19 17:51 05:36 WBC RBC Hgb Hct MCV MCH MCHC RDW Plt Count [place] % (Auto) Add Manual Diff Total Counted Seg Neuts % (Manual) Band Neutrophils % Lymphocytes % (Manual) Reactive Lymphs % (Man) Monocytes % (Manual) Eosinophils % (Manual) Basophils % (Manual) Metamyelocytes % Myelocytes % Promyelocytes % Blast Cells % Nucleated RBC % Seg Neutrophils # Man Band Neutrophils # Lymphocytes # (Manual) Abs React Lymphs (Man) Monocytes # (Manual) Eosinophils # (Manual) Basophils # (Manual) Metamyelocytes # Myelocytes # Promyelocytes # Blast Cells # WBC Morphology Hypersegmented Neuts Hyposegmented Neuts Hypogranular Neuts Smudge Cells Toxic Granulation Toxic Vacuolation Dohle Bodies Pelger-Huet Anomaly Sheila Rods Platelet Estimate Clumped Platelets Plt Clumps, EDTA Large Platelets Giant Platelets Platelet Satelliting Plt Morphology Comment RBC Morphology Dimorphic RBCs Polychromasia Hypochromasia Poikilocytosis Anisocytosis Microcytosis Macrocytosis Spherocytes Pappenheimer Bodies Sickle Cells Target Cells Tear Drop Cells Ovalocytes Helmet Cells Ann-Seagraves Bodies [place] Rings [place] Cells Bite Cells Crenated Cell Elliptocytes Acanthocytes (Spur) Rouleaux Hemoglobin C Crystals Schistocytes Malaria parasites [place] Bodies Hem Pathologist Commnt POC ABG pH POC ABG pCO2 POC ABG pO2 POC ABG HCO3 POC ABG Total CO2 POC ABG O2 Sat POC ABG Base Excess FiO2 POC Glucose 145 H 106 H Lactic Acid Procalcitonin Medications & Allergies - Medications Allergies/Adverse Reactions: Allergies No Known Allergies Allergy (Verified 01/06/17 23:38) Per son Home Medications: Home Medications Medication Instructions Recorded Confirmed Last Taken Type Folic Acid [Folvite] 1 mg PO QDAY #30 tablet 08/12/18 03/10/19 03/09/19 Rx Haloperidol [Haldol] 0.5 mg PO Q6H PRN #30 tablet 08/12/18 03/10/19 03/10/19 Rx Lactulose [Cephulac] 20 gm PO Q12H #1 bottle 08/12/18 03/10/19 03/09/19 Rx Rifaximin [Xifaxan] 550 mg PO BID #60 tablet 08/12/18 03/10/19 03/09/19 Rx Thiamine [Vitamin B-1] 100 mg PO QDAY #30 tablet 08/12/18 03/10/19 03/09/19 Rx amLODIPine 5 mg PO QDAY #30 tablet 08/12/18 03/10/19 03/09/19 Rx chlordiazePOXIDE [Librium] 25 mg PO DAILY #3 capsule 08/12/18 03/10/19 03/09/19 Rx ALBUTEROL NEB's [Proventil] 2.5 mg IH TID PRN 02/06/19 03/10/19 03/09/19 History Acetaminophen [Tylenol] 650 mg PO Q6HR PRN 02/06/19 03/10/19 03/09/19 History Fluticasone [Flonase] 1 spray NS QDAY 02/06/19 03/10/19 03/09/19 History Ipratropium/Albuterol Sulfate 1 spray IH QID 02/06/19 03/10/19 03/09/19 History [Combivent Respimat] Melatonin [Melatonin 10MG CAP] 10 mg PO QHS 02/06/19 03/10/19 03/09/19 History Active Medications: Generic Name Dose Route Start Last Admin Trade Name Freq PRN Reason Stop Dose Admin Acetaminophen 650 mg 03/10/19 17:46 Tylenol PO Q4H PRN Pain MILD(1-3)/Fever >100.5/GUERRERO Albuterol 2.5 mg 03/11/19 03:52 Proventil IH TID PRN Wheezing Albuterol/Ipratropium 1 ampul 03/11/19 08:00 03/22/19 02:05 Duoneb *Not For Prn Use* IH 1 ampul Q6HRT CONNIE Administration Lipase/Protease/Amylase 1 each 03/14/19 13:25 Pancremartine Sahni 10,500 Unit FEEDTUBE PRN PRN For Clogged Feeding Tube Chlordiazepoxide HCl 25 mg 03/11/19 10:00 03/21/19 09:28 Librium PO 25 mg DAILY CONNIE Administration Dextrose 50 ml 03/10/19 22:27 03/14/19 17:55 D50w (25gm) Syringe IV 50 ml Q30MIN PRN Administration Hypoglycemia Famotidine 20 mg 03/15/19 10:00 03/21/19 09:28 Pepcid PO 20 mg DAILY CONNIE Administration Fluticasone Propionate 50 mcg 03/11/19 10:00 03/21/19 09:28 Flonase NS 50 mcg QDAY CONNIE Administration Folic Acid 1 mg 03/11/19 10:00 03/21/19 09:27 Folvite PO 1 mg QDAY CONNIE Administration Glycopyrrolate 1 mg 03/20/19 14:00 03/21/19 21:06 Robinul PO 1 mg BID CONNIE Administration Haloperidol 0.5 mg 03/11/19 03:52 03/12/19 09:32 Haldol PO 0.5 mg Q6H PRN Administration Agitation Hydrophilic Ointment 1 applic 03/14/19 06:51 Vaseline Lip Therapy TP Q2HR PRN Dry Lips Propofol 1,000 mg in 100 mls @ 2.587 mls/hr 03/14/19 07:00 03/14/19 12:00 Diprivan 10 Mg/Ml IV 0 mcg/kg/min TITR CONNIE 0 mls/hr Titration Protocol 5 MCG/KG/MIN Fentanyl Citrate 2,000 mcg in 100 mls @ 4.312 mls/hr 03/14/19 11:00 03/18/19 21:00 Fentanyl Drip Premix IV 2 mcg/kg/hr TITR CONNIE 8.623 mls/hr Titration Protocol 1 MCG/KG/HR Vasopressin 20 unit/ Sodium 101 mls @ 9.09 mls/hr 03/14/19 14:00 03/18/19 12:30 Chloride IV Infused TITR CONNIE Titration Protocol 0.03 UNITS/MIN Dopamine HCl/Dextrose 800 mg in 250 mls @ 3.234 mls/hr 03/14/19 22:00 03/18/19 08:45 Intropin Drip 800 Mg/D5w 250 Ml IV 0 mcg/kg/min TITR CONNIE 0 mls/hr Titration Protocol 2 MCG/KG/MIN Sodium Chloride 500 mls @ 15 mls/hr 03/17/19 20:00 Nacl 0.9% 500 Ml IV PRN CONNIE Piperacillin Sod/Tazobactam Sod 4.5 gm in 100 mls @ 200 mls/hr 03/18/19 22:00 03/22/19 06:24 Zosyn/Ns 4.5gm/100ml IV 200 mls/hr Q8HR CONNIE Administration Protocol Lactated Ringer's 2,000 mls @ 0 mls/hr 03/21/19 13:00 03/21/19 21:00 Lactated Ringers IV 999 mls/hr DIRECT CONNIE Administration As Directed Insulin Human Lispro 0 unit 03/11/19 00:00 03/22/19 06:17 Humalog SUB-Q Not Given Q6HR CONNIE Protocol Morphine Sulfate 2 mg 03/10/19 17:56 03/22/19 02:47 Morphine IV 2 mg Q4H PRN Administration Pain, Moderate (4-6) Multi-Ingred Cream/Lotion/Oil/Oint 1 applic 03/14/19 06:51 03/20/19 10:22 Artificial Tears Ophth Oint OU 0.35 applic Q4HR PRN Administration Dry Eye(s) Ondansetron HCl 4 mg 03/10/19 17:46 03/11/19 05:04 Zofran IV 4 mg Q8H PRN Administration Nausea And Vomiting Rifaximin 550 mg 03/11/19 10:00 03/21/19 21:06 Xifaxan PO 550 mg BID CONNIE Administration Scopolamine 1 each 03/20/19 15:00 03/20/19 14:09 Transderm-Scop TD 1 each Q3D CONNIE Administration Simple Syrup 15 ml 03/14/19 13:25 Simple Syrup FEEDTUBE PRN PRN Hypoglycemia Simple Syrup 30 ml 03/14/19 13:25 Simple Syrup FEEDTUBE PRN PRN Hypoglycemia Sodium Bicarbonate 325 mg 03/14/19 13:25 Sodium Bicarbonate FEEDTUBE PRN PRN For Clogged Feeding Tube Sodium Chloride 10 ml 03/10/19 22:00 03/21/19 21:06 Sodium Chloride Flush Syringe 10 Ml IV 10 ml BID CONNIE Administration Sodium Chloride 10 ml 03/10/19 17:46 03/13/19 22:50 Sodium Chloride Flush Syringe 10 Ml IV 10 ml PRN PRN Administration LINE FLUSH Thiamine HCl 100 mg 03/11/19 10:00 03/21/19 09:28 Vitamin B-1 PO 100 mg QDAY CONNIE Administration
[2019-03-22] MEDS: chlordiazePOXIDE 25 MG CAP PO SCH (10:53)
[2019-03-22] MEDS: FOLIC ACID 1 MG TAB PO SCH (10:53)
[2019-03-22] MEDS: THIAMINE 100 MG TAB PO SCH (10:53)
[2019-03-22] MEDS: FAMOTIDINE 20 MG TAB PO SCH ×2 (10:53→22:12)
[2019-03-22] MEDS: RIFAXIMIN 550 MG TAB PO SCH ×2 (10:53→22:12)
[2019-03-22] MEDS: GLYCOPYRROLATE 1 MG TAB PO SCH (10:53)
[2019-03-22] MEDS: FLUTICASONE PROPIONATE NASAL SPRAY 16 GM NS SCH (10:54)
--- NOTE | 2019-03-22 11:45 | Progress Note ---
Assessment and Plan Severe sepsis with septic shock Cardiac arrest (asystole with ROSC) Acute hypoxic respiratory failure on MVS Lactic acidosis- multifactorial (resolved) Acute toxic- metabolic encephalopathy Aspiration pneumonia VRE UTI Hypernatremia Thrombocytopenia h/o Cirrhosis h/o Alcohol abuse disorder KERRI Hyperkalemia - hold tube feeds for tentative extubation - stop Librium - get ABG and address - complete volume resuscitation - discontinue RIJ CVL - lactate and procalcitonin levels unremarkable - CT head done and no acute process noted - weaned off vasopressors now - discontinued steen catheter - place scopolamine patch for secretion control - VAP bundle addressed (Aspiration precautions, HOB > 40 degrees) - continue Lung protective strategies - continue to wean FIO2 for O2 sats >90% - prn CXR's & ABG's acutely - continue to avoid nephrotoxins and adjust all medications fro GFR and CrCL - daily SAT's and SBT assessment as tolerated - continue enteral nutrition and advance to goal rate as tolerated (hold for tentative extubation) - continue agitation management / Pain management per CPOT - continue empiric antibiotics for aspiration PNA, antibiotics for VRE, de- escalate based on cultures and clinical status (ID input appreciated) - Continue contact isolation - Continue VTE prophylaxis (SCDs), trend platelet counts and monitor for bleeding - continue stress ulcer prophylaxis with PPI - continue accuchecks with glycemic control for SSI (While critically ill target blood glucose of 140-180 mg/dL; avoid hypoglycemia) - Continue mobility protocol for pressure ulcer prevention - Continue to monitor hemodynamics closely - Monitor electrolyte profile closely and replete as indicated - continue chronic home medications per attending and as clinically indicated - continue other care per attending / other consultants .... re-evaluate in am & prn CONDITION: CRITICAL PROGNOSIS: GUARDED CODE STATUS: FULL CODE The high probability of a clinically significant, sudden or life-threatening deterioration of the [respiratory, cardiovascular, neurology, hematology] system(s) required my full and direct attention, intervention and personal management. The aggregate critical care time was [32] minutes without overlap. Time includes spent on; [x] Data Review and interpretation [x] Patient assessment and monitoring of vital signs [x] Documentation [x] Medication orders and management Subjective Date of service: 03/22/19 Principal diagnosis: Severe sepsis with shock; Ac. hypoxemic resp failure; cardi ac arrest; PNA Interval history: Follow up for severe sepsis with septic shock; acute hypoxemic respiratory failure on MVS; s/p cardiac arrest with ROSC; VRE UTI; Aspiration pneumonia Seen and examined at bedside; 24hour events reviewed; nursing and respiratory care staff consulted; no adverse overnight events reported to me; resting in bed; BP's much better with volume resuscitation; still very lethargic; on PSV trial but still tolerating somewhat tenuously; No N/V/F/C; denies acue chest pains Objective Vital Signs - 12hr 03/22/19 03/22/19 03/22/19 00:00 00:05 00:31 Temperature Pulse Rate 81 81 78 Pulse Rate [ Anterior Throughout] Pulse Rate [ 87 From Monitor] Respiratory 24 8 L Rate Respiratory Rate [Anterior Throughout] Blood Pressure 112/89 112/89 112/83 O2 Sat by Pulse 100 100 100 Oximetry 03/22/19 03/22/19 03/22/19 01:00 01:30 02:00 Temperature Pulse Rate 80 76 82 Pulse Rate [ Anterior Throughout] Pulse Rate [ From Monitor] Respiratory 13 10 L 12 Rate Respiratory Rate [Anterior Throughout] Blood Pressure 120/79 126/80 134/83 O2 Sat by Pulse 100 100 100 Oximetry 03/22/19 03/22/19 03/22/19 02:05 02:30 03:00 Temperature Pulse Rate 67 65 Pulse Rate [ 76 Anterior Throughout] Pulse Rate [ From Monitor] Respiratory 10 L 0 L Rate Respiratory 14 Rate [Anterior Throughout] Blood Pressure 134/78 126/69 O2 Sat by Pulse 100 100 Oximetry 03/22/19 03/22/19 03/22/19 03:30 03:49 04:00 Temperature 97.3 F L Pulse Rate 77 76 Pulse Rate [ Anterior Throughout] Pulse Rate [ 94 H From Monitor] Respiratory 12 15 Rate Respiratory Rate [Anterior Throughout] Blood Pressure 138/81 132/84 O2 Sat by Pulse 100 100 Oximetry 03/22/19 03/22/19 03/22/19 04:08 04:30 05:00 Temperature Pulse Rate 73 78 69 Pulse Rate [ Anterior Throughout] Pulse Rate [ From Monitor] Respiratory 11 L 21 Rate Respiratory Rate [Anterior Throughout] Blood Pressure 138/81 136/93 138/82 O2 Sat by Pulse 100 100 100 Oximetry 03/22/19 03/22/19 03/22/19 05:30 06:00 06:31 Temperature Pulse Rate 79 77 84 Pulse Rate [ Anterior Throughout] Pulse Rate [ From Monitor] Respiratory 22 16 19 Rate Respiratory Rate [Anterior Throughout] Blood Pressure 133/93 134/82 138/75 O2 Sat by Pulse 100 100 100 Oximetry 03/22/19 03/22/19 03/22/19 07:00 07:30 08:00 Temperature 97.2 F L Pulse Rate 75 75 79 Pulse Rate [ 78 Anterior Throughout] Pulse Rate [ From Monitor] Respiratory 25 H 22 24 Rate Respiratory 19 Rate [Anterior Throughout] Blood Pressure 140/87 140/92 140/96 O2 Sat by Pulse 100 100 100 Oximetry 03/22/19 03/22/19 03/22/19 08:31 09:01 09:30 Temperature Pulse Rate 86 81 79 Pulse Rate [ Anterior Throughout] Pulse Rate [ From Monitor] Respiratory 33 H 31 H 30 H Rate Respiratory Rate [Anterior Throughout] Blood Pressure 164/114 150/85 138/90 O2 Sat by Pulse 100 100 100 Oximetry Constitutional: appears uncomfortable, other (elderly looking obese AAF with mil d respiratory distress on MVS ) Eyes: non-icteric ENT: oropharynx moist, other (ETT 23 cm JA) Neck: supple, no lymphadenopathy, no JVD, other (RIJ in neck) Effort: mildly labored Ascultation: Bilateral: diminished breath sounds, rales (scant in bases) Percussion: Bilateral: not dull Cardiovascular: regular rate and rhythm, other (S1, S2, no murmurs, gallops or rubs rhythm strip shows accelerated junctional ) Gastrointestinal: normoactive bowel sounds, soft, non-tender, non-distended, other (No HSM) Integumentary: normal Extremities: no cyanosis, no edema, pulses normal, no ischemia or petechiae Neurologic: non-focal exam (grossly), pupils equal and round, unable to assess Psychiatric: other (unable to assess) CBC and BMP: 03/23/19 05:30 03/23/19 05:30 ABG, PT/INR, D-dimer: ABG POC ABG pH 7.384 (7.35-7.45) 03/21/19 14:09 ABG pH 7.380 pH Units (7.350-7.450) 03/20/19 04:27 POC ABG pCO2 44.7 (35-45) 03/21/19 14:09 ABG pCO2 40.2 mm Hg 03/20/19 04:27 POC ABG pO2 120 (80-105) H 03/21/19 14:09 ABG pO2 121.6 mm Hg (80.0-90.0) H 03/20/19 04:27 POC ABG HCO3 26.6 (22-26 mml/L) 03/21/19 14:09 POC ABG Total CO2 28 (23-27mmol/L) 03/21/19 14:09 POC ABG O2 Sat 99 03/21/19 14:09 ABG O2 Saturation 98.3 % (95.0-99.0) 03/20/19 04:27 Abnormal lab findings: Abnormal Labs 03/10/19 03/10/19 03/10/19 13:16 13:16 14:38 WBC 0.8 L* RBC 3.35 L Hgb Hct MCV RDW 22.1 H Plt Count 78 L Lymph % (Auto) Lymph # Seg Neutrophils % Seg Neuts % (Manual) Lymphocytes % (Manual) 49.0 H Monocytes % (Manual) Eosinophils % (Manual) Nucleated RBC % Seg Neutrophils # Man 0.3 L Lymphocytes # (Manual) 0.4 L POC ABG pH ABG pH POC ABG pCO2 POC ABG pO2 ABG pO2 ABG HCO3 ABG Base Excess ABG Hemoglobin Oxyhemoglobin Sodium 147 H Potassium 5.4 H Chloride 111.8 H Carbon Dioxide BUN Creatinine 0.6 L Glucose POC Glucose Lactic Acid Calcium TIBC Ferritin AST 128 H ALT 79 H Alkaline Phosphatase 174 H Total Creatine Kinase CK-MB (CK-2) CK-MB (CK-2) Rel Index Troponin T Total Protein Albumin 2.4 L Urine WBC (Auto) 9.0 H Vancomycin Trough 03/10/19 03/10/19 03/11/19 21:22 23:36 07:29 WBC RBC Hgb Hct MCV RDW Plt Count Lymph % (Auto) Lymph # Seg Neutrophils % Seg Neuts % (Manual) Lymphocytes % (Manual) Monocytes % (Manual) Eosinophils % (Manual) Nucleated RBC % Seg Neutrophils # Man Lymphocytes # (Manual) POC ABG pH ABG pH POC ABG pCO2 POC ABG pO2 ABG pO2 ABG HCO3 ABG Base Excess ABG Hemoglobin Oxyhemoglobin Sodium 148 H Potassium 5.6 H Chloride 122.3 H Carbon Dioxide 20 L BUN Creatinine 0.6 L Glucose POC Glucose 65 L 112 H Lactic Acid Calcium TIBC Ferritin AST 102 H ALT 65 H Alkaline Phosphatase 134 H Total Creatine Kinase CK-MB (CK-2) CK-MB (CK-2) Rel Index Troponin T Total Protein 6.1 L Albumin 1.8 L Urine WBC (Auto) Vancomycin Trough 03/11/19 03/11/19 03/11/19 11:25 15:28 18:00 WBC 1.2 L* RBC Hgb Hct MCV RDW 22.1 H Plt Count 53 L Lymph % (Auto) Lymph # Seg Neutrophils % Seg Neuts % (Manual) 78.6 H Lymphocytes % (Manual) 9.5 L Monocytes % (Manual) 9.5 H Eosinophils % (Manual) Nucleated RBC % Seg Neutrophils # Man 0.9 L Lymphocytes # (Manual) 0.1 L POC ABG pH ABG pH POC ABG pCO2 POC ABG pO2 ABG pO2 ABG HCO3 ABG Base Excess ABG Hemoglobin Oxyhemoglobin Sodium Potassium Chloride Carbon Dioxide BUN Creatinine Glucose POC Glucose 117 H 118 H Lactic Acid Calcium TIBC Ferritin AST ALT Alkaline Phosphatase Total Creatine Kinase CK-MB (CK-2) CK-MB (CK-2) Rel Index Troponin T Total Protein Albumin Urine WBC (Auto) Vancomycin Trough 03/12/19 03/12/19 03/12/19 00:19 05:45 08:55 WBC 2.4 L RBC 3.33 L Hgb Hct MCV RDW 22.8 H Plt Count 58 L Lymph % (Auto) Lymph # Seg Neutrophils % Seg Neuts % (Manual) 93.0 H Lymphocytes % (Manual) 4.0 L Monocytes % (Manual) Eosinophils % (Manual) Nucleated RBC % 7.0 H Seg Neutrophils # Man Lymphocytes # (Manual) 0.1 L POC ABG pH ABG pH POC ABG pCO2 POC ABG pO2 ABG pO2 ABG HCO3 ABG Base Excess ABG Hemoglobin Oxyhemoglobin Sodium Potassium Chloride Carbon Dioxide BUN Creatinine Glucose POC Glucose 124 H 116 H Lactic Acid Calcium TIBC Ferritin AST ALT Alkaline Phosphatase Total Creatine Kinase CK-MB (CK-2) CK-MB (CK-2) Rel Index Troponin T Total Protein Albumin Urine WBC (Auto) Vancomycin Trough 03/12/19 03/13/19 03/13/19 08:55 00:18 03:48 WBC 2.7 L RBC 3.06 L Hgb 9.4 L Hct 29.4 L MCV RDW 23.1 H Plt Count 62 L Lymph % (Auto) Lymph # Seg Neutrophils % Seg Neuts % (Manual) 76.0 H Lymphocytes % (Manual) Monocytes % (Manual) Eosinophils % (Manual) Nucleated RBC % 11.0 H Seg Neutrophils # Man Lymphocytes # (Manual) 0.5 L POC ABG pH ABG pH POC ABG pCO2 POC ABG pO2 ABG pO2 ABG HCO3 ABG Base Excess ABG Hemoglobin Oxyhemoglobin Sodium Potassium 5.6 H Chloride 114.2 H Carbon Dioxide 21 L BUN Creatinine Glucose POC Glucose 119 H Lactic Acid Calcium TIBC Ferritin AST ALT Alkaline Phosphatase Total Creatine Kinase CK-MB (CK-2) CK-MB (CK-2) Rel Index Troponin T Total Protein Albumin Urine WBC (Auto) Vancomycin Trough 03/13/19 03/13/19 03/13/19 03:48 05:52 05:58 WBC RBC Hgb Hct MCV RDW Plt Count Lymph % (Auto) Lymph # Seg Neutrophils % Seg Neuts % (Manual) Lymphocytes % (Manual) Monocytes % (Manual) Eosinophils % (Manual) Nucleated RBC % Seg Neutrophils # Man Lymphocytes # (Manual) POC ABG pH ABG pH POC ABG pCO2 POC ABG pO2 ABG pO2 ABG HCO3 ABG Base Excess ABG Hemoglobin Oxyhemoglobin Sodium Potassium Chloride 112.7 H Carbon Dioxide 21 L BUN Creatinine Glucose 103 H POC Glucose 114 H Lactic Acid Calcium TIBC Ferritin AST ALT Alkaline Phosphatase Total Creatine Kinase CK-MB (CK-2) CK-MB (CK-2) Rel Index Troponin T Total Protein Albumin Urine WBC (Auto) Vancomycin Trough 39.7 H 03/13/19 03/13/19 03/14/19 12:12 18:00 00:17 WBC RBC Hgb Hct MCV RDW Plt Count Lymph % (Auto) Lymph # Seg Neutrophils % Seg Neuts % (Manual) Lymphocytes % (Manual) Monocytes % (Manual) Eosinophils % (Manual) Nucleated RBC % Seg Neutrophils # Man Lymphocytes # (Manual) POC ABG pH ABG pH POC ABG pCO2 POC ABG pO2 ABG pO2 ABG HCO3 ABG Base Excess ABG Hemoglobin Oxyhemoglobin Sodium Potassium Chloride Carbon Dioxide BUN Creatinine Glucose POC Glucose 116 H 132 H 130 H Lactic Acid Calcium TIBC Ferritin AST ALT Alkaline Phosphatase Total Creatine Kinase CK-MB (CK-2) CK-MB (CK-2) Rel Index Troponin T Total Protein Albumin Urine WBC (Auto) Vancomycin Trough 03/14/19 03/14/19 03/14/19 05:24 06:44 06:44 WBC 2.6 L RBC 3.00 L Hgb 9.2 L Hct 28.3 L MCV RDW 22.5 H Plt Count 44 L Lymph % (Auto) Lymph # Seg Neutrophils % Seg Neuts % (Manual) 75.0 H Lymphocytes % (Manual) Monocytes % (Manual) Eosinophils % (Manual) 5.0 H Nucleated RBC % 19.0 H Seg Neutrophils # Man Lymphocytes # (Manual) 0.4 L POC ABG pH ABG pH POC ABG pCO2 POC ABG pO2 ABG pO2 ABG HCO3 ABG Base Excess ABG Hemoglobin Oxyhemoglobin Sodium Potassium Chloride 110.2 H Carbon Dioxide 21 L BUN Creatinine 1.3 H Glucose POC Glucose 110 H Lactic Acid Calcium TIBC Ferritin AST 144 H ALT 90 H Alkaline Phosphatase 226 H Total Creatine Kinase CK-MB (CK-2) 8.6 H CK-MB (CK-2) Rel Index 7.1 H Troponin T 0.056 H D Total Protein Albumin 2.2 L Urine WBC (Auto) Vancomycin Trough 03/14/19 03/14/19 03/14/19 09:05 11:54 12:15 WBC RBC Hgb Hct MCV RDW Plt Count Lymph % (Auto) Lymph # Seg Neutrophils % Seg Neuts % (Manual) Lymphocytes % (Manual) Monocytes % (Manual) Eosinophils % (Manual) Nucleated RBC % Seg Neutrophils # Man Lymphocytes # (Manual) POC ABG pH 7.283 L 7.458 H ABG pH POC ABG pCO2 54.9 H 32.7 L POC ABG pO2 76 L ABG pO2 ABG HCO3 ABG Base Excess ABG Hemoglobin Oxyhemoglobin Sodium Potassium Chloride Carbon Dioxide BUN Creatinine Glucose POC Glucose Lactic Acid 2.10 H* Calcium TIBC Ferritin AST ALT Alkaline Phosphatase Total Creatine Kinase CK-MB (CK-2) CK-MB (CK-2) Rel Index Troponin T Total Protein Albumin Urine WBC (Auto) Vancomycin Trough 03/14/19 03/14/19 03/14/19 12:43 13:35 15:35 WBC RBC Hgb Hct MCV RDW Plt Count Lymph % (Auto) Lymph # Seg Neutrophils % Seg Neuts % (Manual) Lymphocytes % (Manual) Monocytes % (Manual) Eosinophils % (Manual) Nucleated RBC % Seg Neutrophils # Man Lymphocytes # (Manual) POC ABG pH ABG pH POC ABG pCO2 POC ABG pO2 ABG pO2 ABG HCO3 ABG Base Excess ABG Hemoglobin Oxyhemoglobin Sodium Potassium Chloride Carbon Dioxide BUN Creatinine Glucose POC Glucose 68 L Lactic Acid 2.10 H* 3.50 H* Calcium TIBC Ferritin AST ALT Alkaline Phosphatase Total Creatine Kinase CK-MB (CK-2) CK-MB (CK-2) Rel Index Troponin T Total Protein Albumin Urine WBC (Auto) Vancomycin Trough 03/14/19 03/14/19 03/14/19 17:34 17:46 17:55 WBC RBC Hgb Hct MCV RDW Plt Count Lymph % (Auto) Lymph # Seg Neutrophils % Seg Neuts % (Manual) Lymphocytes % (Manual) Monocytes % (Manual) Eosinophils % (Manual) Nucleated RBC % Seg Neutrophils # Man Lymphocytes # (Manual) POC ABG pH 7.241 L 7.244 L ABG pH POC ABG pCO2 50.4 H 50.1 H POC ABG pO2 156 H ABG pO2 ABG HCO3 ABG Base Excess ABG Hemoglobin Oxyhemoglobin Sodium Potassium Chloride Carbon Dioxide BUN Creatinine Glucose POC Glucose 49 L Lactic Acid Calcium TIBC Ferritin AST ALT Alkaline Phosphatase Total Creatine Kinase CK-MB (CK-2) CK-MB (CK-2) Rel Index Troponin T Total Protein Albumin Urine WBC (Auto) Vancomycin Trough 03/14/19 03/14/19 03/14/19 18:29 18:32 20:27 WBC RBC Hgb Hct MCV RDW Plt Count Lymph % (Auto) Lymph # Seg Neutrophils % Seg Neuts % (Manual) Lymphocytes % (Manual) Monocytes % (Manual) Eosinophils % (Manual) Nucleated RBC % Seg Neutrophils # Man Lymphocytes # (Manual) POC ABG pH ABG pH POC ABG pCO2 POC ABG pO2 ABG pO2 ABG HCO3 ABG Base Excess ABG Hemoglobin Oxyhemoglobin Sodium Potassium Chloride 112.6 H Carbon Dioxide 19 L BUN Creatinine 1.4 H Glucose 132 H POC Glucose 57 L 115 H Lactic Acid Calcium TIBC Ferritin AST ALT Alkaline Phosphatase Total Creatine Kinase CK-MB (CK-2) CK-MB (CK-2) Rel Index Troponin T Total Protein Albumin Urine WBC (Auto) Vancomycin Trough 03/14/19 03/14/19 03/15/19 23:47 Unknown 04:00 WBC RBC 2.77 L Hgb 8.5 L Hct 27.3 L MCV 98 H RDW 23.0 H Plt Count 27 L Lymph % (Auto) Lymph # Seg Neutrophils % Seg Neuts % (Manual) 75.0 H Lymphocytes % (Manual) 1.0 L Monocytes % (Manual) Eosinophils % (Manual) Nucleated RBC % 4.0 H Seg Neutrophils # Man Lymphocytes # (Manual) 0.1 L POC ABG pH ABG pH POC ABG pCO2 POC ABG pO2 ABG pO2 ABG HCO3 ABG Base Excess ABG Hemoglobin Oxyhemoglobin Sodium Potassium Chloride Carbon Dioxide BUN Creatinine Glucose POC Glucose 116 H Lactic Acid 3.30 H* Calcium TIBC Ferritin AST ALT Alkaline Phosphatase Total Creatine Kinase CK-MB (CK-2) CK-MB (CK-2) Rel Index Troponin T Total Protein Albumin Urine WBC (Auto) Vancomycin Trough 03/15/19 03/15/19 03/15/19 04:00 06:24 07:35 WBC RBC Hgb Hct MCV RDW Plt Count Lymph % (Auto) Lymph # Seg Neutrophils % Seg Neuts % (Manual) Lymphocytes % (Manual) Monocytes % (Manual) Eosinophils % (Manual) Nucleated RBC % Seg Neutrophils # Man Lymphocytes # (Manual) POC ABG pH 7.282 L ABG pH POC ABG pCO2 50.4 H POC ABG pO2 71 L ABG pO2 ABG HCO3 ABG Base Excess ABG Hemoglobin Oxyhemoglobin Sodium Potassium Chloride 112.1 H Carbon Dioxide 19 L BUN Creatinine 1.5 H Glucose 123 H POC Glucose 140 H Lactic Acid Calcium 8.2 L TIBC Ferritin AST ALT Alkaline Phosphatase Total Creatine Kinase CK-MB (CK-2) CK-MB (CK-2) Rel Index Troponin T Total Protein Albumin Urine WBC (Auto) Vancomycin Trough 03/15/19 03/15/19 03/16/19 11:47 23:25 04:33 WBC RBC Hgb Hct MCV RDW Plt Count Lymph % (Auto) Lymph # Seg Neutrophils % Seg Neuts % (Manual) Lymphocytes % (Manual) Monocytes % (Manual) Eosinophils % (Manual) Nucleated RBC % Seg Neutrophils # Man Lymphocytes # (Manual) POC ABG pH ABG pH 7.304 L POC ABG pCO2 POC ABG pO2 ABG pO2 174.4 H ABG HCO3 19.2 L ABG Base Excess -6.6 L ABG Hemoglobin 8.5 L Oxyhemoglobin Sodium Potassium Chloride Carbon Dioxide BUN Creatinine Glucose POC Glucose 161 H 139 H Lactic Acid Calcium TIBC Ferritin AST ALT Alkaline Phosphatase Total Creatine Kinase CK-MB (CK-2) CK-MB (CK-2) Rel Index Troponin T Total Protein Albumin Urine WBC (Auto) Vancomycin Trough 03/16/19 03/16/19 03/16/19 05:19 05:19 05:19 WBC RBC 2.92 L Hgb 8.9 L Hct 28.0 L MCV RDW 22.8 H Plt Count 42 L Lymph % (Auto) Lymph # Seg Neutrophils % Seg Neuts % (Manual) 84.0 H Lymphocytes % (Manual) 5.0 L Monocytes % (Manual) Eosinophils % (Manual) Nucleated RBC % Seg Neutrophils # Man 7.8 H Lymphocytes # (Manual) 0.5 L POC ABG pH ABG pH POC ABG pCO2 POC ABG pO2 ABG pO2 ABG HCO3 ABG Base Excess ABG Hemoglobin Oxyhemoglobin Sodium Potassium 5.2 H Chloride 114.0 H Carbon Dioxide 18 L BUN 22 H Creatinine 1.7 H Glucose 109 H POC Glucose Lactic Acid Calcium 8.0 L TIBC Ferritin AST ALT Alkaline Phosphatase Total Creatine Kinase 194 H CK-MB (CK-2) CK-MB (CK-2) Rel Index Troponin T Total Protein Albumin Urine WBC (Auto) Vancomycin Trough 03/16/19 03/16/19 03/16/19 05:51 12:19 17:42 WBC RBC Hgb Hct MCV RDW Plt Count Lymph % (Auto) Lymph # Seg Neutrophils % Seg Neuts % (Manual) Lymphocytes % (Manual) Monocytes % (Manual) Eosinophils % (Manual) Nucleated RBC % Seg Neutrophils # Man Lymphocytes # (Manual) POC ABG pH ABG pH POC ABG pCO2 POC ABG pO2 ABG pO2 ABG HCO3 ABG Base Excess ABG Hemoglobin Oxyhemoglobin Sodium Potassium Chloride Carbon Dioxide BUN Creatinine Glucose POC Glucose 123 H 134 H 130 H Lactic Acid Calcium TIBC Ferritin AST ALT Alkaline Phosphatase Total Creatine Kinase CK-MB (CK-2) CK-MB (CK-2) Rel Index Troponin T Total Protein Albumin Urine WBC (Auto) Vancomycin Trough 03/17/19 03/17/19 03/17/19 00:46 04:45 04:45 WBC RBC 2.42 L Hgb 7.5 L Hct 23.4 L MCV RDW 22.2 H Plt Count 37 L Lymph % (Auto) 6.2 L Lymph # 0.5 L Seg Neutrophils % 84.0 H Seg Neuts % (Manual) Lymphocytes % (Manual) Monocytes % (Manual) Eosinophils % (Manual) Nucleated RBC % Seg Neutrophils # Man Lymphocytes # (Manual) POC ABG pH ABG pH POC ABG pCO2 POC ABG pO2 ABG pO2 ABG HCO3 ABG Base Excess ABG Hemoglobin Oxyhemoglobin Sodium Potassium Chloride 115.4 H Carbon Dioxide 16 L BUN 27 H Creatinine 1.8 H Glucose 109 H POC Glucose 115 H Lactic Acid Calcium 7.9 L TIBC Ferritin AST ALT Alkaline Phosphatase Total Creatine Kinase CK-MB (CK-2) CK-MB (CK-2) Rel Index Troponin T Total Protein Albumin Urine WBC (Auto) Vancomycin Trough 03/17/19 03/17/19 03/17/19 05:00 06:05 11:15 WBC RBC Hgb Hct MCV RDW Plt Count Lymph % (Auto) Lymph # Seg Neutrophils % Seg Neuts % (Manual) Lymphocytes % (Manual) Monocytes % (Manual) Eosinophils % (Manual) Nucleated RBC % Seg Neutrophils # Man Lymphocytes # (Manual) POC ABG pH ABG pH 7.238 L POC ABG pCO2 POC ABG pO2 ABG pO2 114.7 H ABG HCO3 17.9 L ABG Base Excess -8.8 L ABG Hemoglobin 7.3 L Oxyhemoglobin Sodium Potassium Chloride Carbon Dioxide BUN Creatinine Glucose POC Glucose 124 H Lactic Acid Calcium TIBC 127 L Ferritin AST ALT Alkaline Phosphatase Total Creatine Kinase CK-MB (CK-2) CK-MB (CK-2) Rel Index Troponin T Total Protein Albumin Urine WBC (Auto) Vancomycin Trough 03/17/19 03/17/19 03/17/19 11:15 12:06 18:27 WBC RBC Hgb Hct MCV RDW Plt Count Lymph % (Auto) Lymph # Seg Neutrophils % Seg Neuts % (Manual) Lymphocytes % (Manual) Monocytes % (Manual) Eosinophils % (Manual) Nucleated RBC % Seg Neutrophils # Man Lymphocytes # (Manual) POC ABG pH ABG pH POC ABG pCO2 POC ABG pO2 ABG pO2 ABG HCO3 ABG Base Excess ABG Hemoglobin Oxyhemoglobin Sodium Potassium Chloride Carbon Dioxide BUN Creatinine Glucose POC Glucose 133 H 158 H Lactic Acid Calcium TIBC Ferritin 512.4 H AST ALT Alkaline Phosphatase Total Creatine Kinase CK-MB (CK-2) CK-MB (CK-2) Rel Index Troponin T Total Protein Albumin Urine WBC (Auto) Vancomycin Trough 03/17/19 03/18/19 03/18/19 23:30 04:00 05:45 WBC RBC 2.31 L Hgb 7.0 L Hct 22.0 L MCV RDW 22.2 H Plt Count 45 L Lymph % (Auto) Lymph # Seg Neutrophils % Seg Neuts % (Manual) 82.0 H Lymphocytes % (Manual) 12.0 L Monocytes % (Manual) Eosinophils % (Manual) 5.0 H Nucleated RBC % 1.0 H Seg Neutrophils # Man Lymphocytes # (Manual) 0.8 L POC ABG pH ABG pH POC ABG pCO2 POC ABG pO2 ABG pO2 113.7 H ABG HCO3 ABG Base Excess -3.0 L ABG Hemoglobin 7.0 L Oxyhemoglobin Sodium Potassium Chloride Carbon Dioxide BUN Creatinine Glucose POC Glucose 143 H Lactic Acid Calcium TIBC Ferritin AST ALT Alkaline Phosphatase Total Creatine Kinase CK-MB (CK-2) CK-MB (CK-2) Rel Index Troponin T Total Protein Albumin Urine WBC (Auto) Vancomycin Trough 03/18/19 03/18/19 03/18/19 05:48 05:50 14:01 WBC RBC Hgb Hct MCV RDW Plt Count Lymph % (Auto) Lymph # Seg Neutrophils % Seg Neuts % (Manual) Lymphocytes % (Manual) Monocytes % (Manual) Eosinophils % (Manual) Nucleated RBC % Seg Neutrophils # Man Lymphocytes # (Manual) POC ABG pH 7.299 L ABG pH POC ABG pCO2 48.7 H POC ABG pO2 ABG pO2 ABG HCO3 ABG Base Excess ABG Hemoglobin Oxyhemoglobin Sodium Potassium Chloride 109.9 H Carbon Dioxide BUN 28 H Creatinine 1.5 H Glucose 128 H POC Glucose 118 H Lactic Acid Calcium 7.6 L TIBC Ferritin AST ALT Alkaline Phosphatase Total Creatine Kinase CK-MB (CK-2) CK-MB (CK-2) Rel Index Troponin T Total Protein Albumin Urine WBC (Auto) Vancomycin Trough 03/18/19 03/19/19 03/19/19 23:53 04:43 06:02 WBC RBC Hgb Hct MCV RDW Plt Count Lymph % (Auto) Lymph # Seg Neutrophils % Seg Neuts % (Manual) Lymphocytes % (Manual) Monocytes % (Manual) Eosinophils % (Manual) Nucleated RBC % Seg Neutrophils # Man Lymphocytes # (Manual) POC ABG pH ABG pH 7.332 L POC ABG pCO2 POC ABG pO2 ABG pO2 116.2 H ABG HCO3 ABG Base Excess -3.3 L ABG Hemoglobin 7.3 L Oxyhemoglobin 94.9 L Sodium Potassium Chloride Carbon Dioxide BUN Creatinine Glucose POC Glucose 130 H 122 H Lactic Acid Calcium TIBC Ferritin AST ALT Alkaline Phosphatase Total Creatine Kinase CK-MB (CK-2) CK-MB (CK-2) Rel Index Troponin T Total Protein Albumin Urine WBC (Auto) Vancomycin Trough 03/19/19 03/19/19 03/19/19 12:16 15:33 23:44 WBC RBC Hgb Hct MCV RDW Plt Count Lymph % (Auto) Lymph # Seg Neutrophils % Seg Neuts % (Manual) Lymphocytes % (Manual) Monocytes % (Manual) Eosinophils % (Manual) Nucleated RBC % Seg Neutrophils # Man Lymphocytes # (Manual) POC ABG pH 7.316 L ABG pH POC ABG pCO2 45.7 H POC ABG pO2 ABG pO2 ABG HCO3 ABG Base Excess ABG Hemoglobin Oxyhemoglobin Sodium Potassium Chloride Carbon Dioxide BUN Creatinine Glucose POC Glucose 132 H 106 H Lactic Acid Calcium TIBC Ferritin AST ALT Alkaline Phosphatase Total Creatine Kinase CK-MB (CK-2) CK-MB (CK-2) Rel Index Troponin T Total Protein Albumin Urine WBC (Auto) Vancomycin Trough 03/20/19 03/20/19 03/20/19 01:00 EST 04:27 12:06 WBC RBC Hgb Hct MCV RDW Plt Count Lymph % (Auto) Lymph # Seg Neutrophils % Seg Neuts % (Manual) Lymphocytes % (Manual) Monocytes % (Manual) Eosinophils % (Manual) Nucleated RBC % Seg Neutrophils # Man Lymphocytes # (Manual) POC ABG pH ABG pH POC ABG pCO2 POC ABG pO2 ABG pO2 121.6 H ABG HCO3 ABG Base Excess ABG Hemoglobin 7.1 L Oxyhemoglobin Sodium Potassium 3.4 L Chloride 111.7 H Carbon Dioxide BUN 29 H Creatinine Glucose POC Glucose 134 H Lactic Acid Calcium 8.0 L TIBC Ferritin AST ALT Alkaline Phosphatase Total Creatine Kinase CK-MB (CK-2) CK-MB (CK-2) Rel Index Troponin T Total Protein Albumin Urine WBC (Auto) Vancomycin Trough 03/20/19 03/20/19 03/21/19 18:09 23:36 05:42 WBC RBC Hgb Hct MCV RDW Plt Count Lymph % (Auto) Lymph # Seg Neutrophils % Seg Neuts % (Manual) Lymphocytes % (Manual) Monocytes % (Manual) Eosinophils % (Manual) Nucleated RBC % Seg Neutrophils # Man Lymphocytes # (Manual) POC ABG pH ABG pH POC ABG pCO2 POC ABG pO2 ABG pO2 ABG HCO3 ABG Base Excess ABG Hemoglobin Oxyhemoglobin Sodium Potassium Chloride Carbon Dioxide BUN Creatinine Glucose POC Glucose 133 H 114 H 116 H Lactic Acid Calcium TIBC Ferritin AST ALT Alkaline Phosphatase Total Creatine Kinase CK-MB (CK-2) CK-MB (CK-2) Rel Index Troponin T Total Protein Albumin Urine WBC (Auto) Vancomycin Trough 03/21/19 03/21/19 03/21/19 08:12 14:09 17:51 WBC 3.9 L RBC 2.25 L Hgb 7.1 L Hct 21.6 L MCV RDW 21.6 H Plt Count 105 L Lymph % (Auto) Lymph # Seg Neutrophils % Seg Neuts % (Manual) Lymphocytes % (Manual) 13.0 L Monocytes % (Manual) 13.0 H Eosinophils % (Manual) Nucleated RBC % Seg Neutrophils # Man Lymphocytes # (Manual) 0.5 L POC ABG pH ABG pH POC ABG pCO2 POC ABG pO2 120 H ABG pO2 ABG HCO3 ABG Base Excess ABG Hemoglobin Oxyhemoglobin Sodium Potassium Chloride Carbon Dioxide BUN Creatinine Glucose POC Glucose 145 H Lactic Acid Calcium TIBC Ferritin AST ALT Alkaline Phosphatase Total Creatine Kinase CK-MB (CK-2) CK-MB (CK-2) Rel Index Troponin T Total Protein Albumin Urine WBC (Auto) Vancomycin Trough 03/22/19 05:36 WBC RBC Hgb Hct MCV RDW Plt Count Lymph % (Auto) Lymph # Seg Neutrophils % Seg Neuts % (Manual) Lymphocytes % (Manual) Monocytes % (Manual) Eosinophils % (Manual) Nucleated RBC % Seg Neutrophils # Man Lymphocytes # (Manual) POC ABG pH ABG pH POC ABG pCO2 POC ABG pO2 ABG pO2 ABG HCO3 ABG Base Excess ABG Hemoglobin Oxyhemoglobin Sodium Potassium Chloride Carbon Dioxide BUN Creatinine Glucose POC Glucose 106 H Lactic Acid Calcium TIBC Ferritin AST ALT Alkaline Phosphatase Total Creatine Kinase CK-MB (CK-2) CK-MB (CK-2) Rel Index Troponin T Total Protein Albumin Urine WBC (Auto) Vancomycin Trough Chest x-ray: image reviewed (none today) Allied health notes reviewed: nursing
[2019-03-22 11:59] LABS: Hematocrit 23.9 % (30.3-42.9); Hemoglobin 7.6 gm/dl (10.1-14.3); Mean Corpuscular HGB Conc 32 % (30-34); Mean Corpuscular Volume 98 fl (79-97); Platelet Count 149 K/mm3 (140-440); Red Blood Count 2.45 M/mm3 (3.65-5.03)
[2019-03-22 12:12] LABS: BUN/Creatinine Ratio 25; Blood Urea Nitrogen 20 mg/dL (7-17); Calcium 8.4 mg/dL (8.4-10.2); Hemolysis Index 3
[2019-03-22 12:14] LABS: Red Cell Distribution Width 22.2 % (13.2-15.2)
--- NOTE | 2019-03-22 14:47 | Progress Note ---
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 ID consult appreciated KERRI is due to ATN and vasomotor nephropathy -monitor cr level, stable and improved VRE UTI, septic shock, sepsis POA abx per ID , off pressors since 03/17 thrombocytopenia likely 2/2 sepsis, stable Acute Metabolic encephalopathy with agitation - Probably due to the acute infection - head CT scan neg x 2, Acute on chronic Pancytopenia - continue to monitor levels - Oncology consulted Hypernatremia - probably 2/2 dehydration - improved on IV D5W - monitor BMP closely Hyperkalemia - s/p kayexalate, resolved Hypoglycemia -On hypoglycemic protocol H/o CLD -Continue lactulose and rifaximin Nutrition Continue tube feeding DVT prophylaxis - On SCDs due to thrombocytopenia Disposition: Prognosis is guarded/poor History Interval history: Patient was seen and examined. Follow-up on current diagnosis of AMS. No overnight events reported to me. Patient denies any chest pain, shortness breath, nausea/vomiting or severe headaches. Imaging, nursing note, chart, labs and old chart reviewed. Discussed with patient. Hospitalist Physical - Physical exam Narrative exam: Gen: critically ill, awake, eyes open, intubated not sedated on PS HEENT: NCAT, EOMI, PERRL, OP with ETT and NGT Neck: supple, no adenopathy, no thyromegaly, no JVD CVS/Heart: RRR, normal S1S2, pulses present bilaterally Chest/Lungs: Symmetrical chest expansion, good air entry bilaterally GI/Abdomen: soft, NTND, good bowel sounds, no guarding or rebound /Bladder: no suprapubic tenderness, no CVA or paraspinal tenderness Extermity/Skin: right neck IJ TLC MSK: sFROM x 4 Neuro: CN 2-12 grossly intact, doesn't follow commands Psych: calm - Constitutional Vitals: Temp Pulse Resp BP Pulse Ox 96.0 F L 69 0 L 115/70 100 03/22/19 12:00 03/22/19 13:00 03/22/19 13:00 03/22/19 13:00 03/22/19 13:00 General appearance: Present: no acute distress, other (mildly agitated) Results - Labs CBC & Chem 7: 03/22/19 Unknown 03/22/19 11:10 Labs: Laboratory Last Values WBC 4.2 K/mm3 (4.5-11.0) L 03/22/19 Unknown RBC 2.45 M/mm3 (3.65-5.03) L 03/22/19 Unknown Hgb 7.6 gm/dl (10.1-14.3) L 03/22/19 Unknown Hct 23.9 % (30.3-42.9) L 03/22/19 Unknown MCV 98 fl (79-97) H 03/22/19 Unknown MCH 31 pg (28-32) 03/22/19 Unknown MCHC 32 % (30-34) 03/22/19 Unknown RDW 22.2 % (13.2-15.2) H 03/22/19 Unknown Plt Count 149 K/mm3 (140-440) 03/22/19 Unknown Lymph % (Auto) 6.2 % (13.4-35.0) L 03/17/19 04:45 [place] % (Auto) Wheel Tuner 03/21/19 08:12 Eos % (Auto) 3.2 % (0.0-4.3) 03/17/19 04:45 Baso % (Auto) 0.2 % (0.0-1.8) 03/17/19 04:45 Lymph # 0.5 K/mm3 (1.2-5.4) L 03/17/19 04:45 [place] # 0.6 K/mm3 (0.0-0.8) 03/17/19 04:45 Eos # 0.3 K/mm3 (0.0-0.4) 03/17/19 04:45 Baso # 0.0 K/mm3 (0.0-0.1) 03/17/19 04:45 Add Manual Diff Complete 03/21/19 08:12 Total Counted 100 03/21/19 08:12 Seg Neutrophils % 84.0 % (40.0-70.0) H 03/17/19 04:45 Seg Neuts % (Manual) 67.0 % (40.0-70.0) 03/21/19 08:12 Band Neutrophils % 2.0 % 03/21/19 08:12 Lymphocytes % (Manual) 13.0 % (13.4-35.0) L 03/21/19 08:12 Reactive Lymphs % (Man) 1.0 % 03/21/19 08:12 Monocytes % (Manual) 13.0 % (0.0-7.3) H 03/21/19 08:12 Eosinophils % (Manual) 3.0 % (0.0-4.3) 03/21/19 08:12 Basophils % (Manual) 0 % (0.0-1.8) 03/21/19 08:12 Metamyelocytes % 1.0 % 03/21/19 08:12 Myelocytes % 0 % 03/21/19 08:12 Promyelocytes % 0 % 03/21/19 08:12 Blast Cells % 0 % 03/21/19 08:12 Nucleated RBC % Not Reportable 03/21/19 08:12 Seg Neutrophils # 7.2 K/mm3 (1.8-7.7) 03/17/19 04:45 Seg Neutrophils # Man 2.6 K/mm3 (1.8-7.7) 03/21/19 08:12 Band Neutrophils # 0.1 K/mm3 03/21/19 08:12 Lymphocytes # (Manual) 0.5 K/mm3 (1.2-5.4) L 03/21/19 08:12 Abs React Lymphs (Man) 0.0 K/mm3 03/21/19 08:12 Monocytes # (Manual) 0.5 K/mm3 (0.0-0.8) 03/21/19 08:12 Eosinophils # (Manual) 0.1 K/mm3 (0.0-0.4) 03/21/19 08:12 Basophils # (Manual) 0.0 K/mm3 (0.0-0.1) 03/21/19 08:12 Metamyelocytes # 0.0 K/mm3 03/21/19 08:12 Myelocytes # 0.0 K/mm3 03/21/19 08:12 Promyelocytes # 0.0 K/mm3 03/21/19 08:12 Blast Cells # 0.0 K/mm3 03/21/19 08:12 Pathologist Review 03/18/19 05:45 WBC Morphology Not Reportable 03/21/19 08:12 Hypersegmented Neuts Not Reportable 03/21/19 08:12 Hyposegmented Neuts Not Reportable 03/21/19 08:12 Hypogranular Neuts Not Reportable 03/21/19 08:12 Smudge Cells Not Reportable 03/21/19 08:12 Toxic Granulation Not Reportable 03/21/19 08:12 Toxic Vacuolation Not Reportable 03/21/19 08:12 Dohle Bodies Not Reportable 03/21/19 08:12 Pelger-Huet Anomaly Not Reportable 03/21/19 08:12 Shelia Rods Not Reportable 03/21/19 08:12 Platelet Estimate Consistent w auto 03/21/19 08:12 Clumped Platelets Not Reportable 03/21/19 08:12 Plt Clumps, EDTA Not Reportable 03/21/19 08:12 Large Platelets Not Reportable 03/21/19 08:12 Giant Platelets Not Reportable 03/21/19 08:12 Platelet Satelliting Not Reportable 03/21/19 08:12 Plt Morphology Comment Not Reportable 03/21/19 08:12 RBC Morphology Not Reportable 03/21/19 08:12 Dimorphic RBCs Not Reportable 03/21/19 08:12 Polychromasia Not Reportable 03/21/19 08:12 Hypochromasia Not Reportable 03/21/19 08:12 Poikilocytosis Not Reportable 03/21/19 08:12 Anisocytosis 1+ 03/21/19 08:12 Microcytosis Not Reportable 03/21/19 08:12 Macrocytosis 1+ 03/21/19 08:12 Spherocytes Not Reportable 03/21/19 08:12 Pappenheimer Bodies Not Reportable 03/21/19 08:12 Sickle Cells Not Reportable 03/21/19 08:12 Target Cells Few 03/21/19 08:12 Tear Drop Cells Not Reportable 03/21/19 08:12 Ovalocytes Not Reportable 03/21/19 08:12 Helmet Cells Not Reportable 03/21/19 08:12 [place] Bodies Not Reportable 03/21/19 08:12 [place] Rings Not Reportable 03/21/19 08:12 [place] Cells Not Reportable 03/21/19 08:12 Bite Cells Not Reportable 03/21/19 08:12 Crenated Cell Not Reportable 03/21/19 08:12 Elliptocytes Not Reportable 03/21/19 08:12 Acanthocytes (Spur) Not Reportable 03/21/19 08:12 Rouleaux Not Reportable 03/21/19 08:12 Hemoglobin C Crystals Not Reportable 03/21/19 08:12 Schistocytes Not Reportable 03/21/19 08:12 Malaria parasites Not Reportable 03/21/19 08:12 [place] Bodies Not Reportable 03/21/19 08:12 Hem Pathologist Commnt No 03/21/19 08:12 POC ABG pH 7.285 (7.35-7.45) L 03/22/19 12:04 ABG pH 7.380 pH Units (7.350-7.450) 03/20/19 04:27 POC ABG pCO2 55.4 (35-45) H 03/22/19 12:04 ABG pCO2 40.2 mm Hg 03/20/19 04:27 POC ABG pO2 101 (80-105) 03/22/19 12:04 ABG pO2 121.6 mm Hg (80.0-90.0) H 03/20/19 04:27 POC ABG HCO3 26.3 (22-26 mml/L) 03/22/19 12:04 ABG HCO3 23.3 mmol/L (20.0-26.0) 03/20/19 04:27 POC ABG Total CO2 28 (23-27mmol/L) 03/22/19 12:04 POC ABG O2 Sat 97 03/22/19 12:04 ABG O2 Saturation 98.3 % (95.0-99.0) 03/20/19 04:27 ABG O2 Content 9.9 (0.0-44) 03/20/19 04:27 POC ABG Base Excess 0 ((-2) - (+3)mmol/L) 03/22/19 12:04 ABG Base Excess -1.7 mmol/L (-2.0-3.0) 03/20/19 04:27 ABG Hemoglobin 7.1 gm/dl (12.0-16.0) L 03/20/19 04:27 ABG Carboxyhemoglobin 2.5 % (0.0-5.0) 03/20/19 04:27 ABG Methemoglobin 0.4 % (0.0-1.5) 03/20/19 04:27 Oxyhemoglobin 95.5 % (95.0-99.0) 03/20/19 04:27 FiO2 25 % 03/22/19 12:04 Sodium 149 mmol/L (137-145) H 03/22/19 11:10 Potassium 3.9 mmol/L (3.6-5.0) 03/22/19 11:10 Chloride 115.6 mmol/L (98-107) H 03/22/19 11:10 Carbon Dioxide 26 mmol/L (22-30) 03/22/19 11:10 Anion Gap 11 mmol/L 03/22/19 11:10 BUN 20 mg/dL (7-17) H 03/22/19 11:10 Creatinine 0.8 mg/dL (0.7-1.2) 03/22/19 11:10 Estimated GFR > 60 ml/min 03/22/19 11:10 BUN/Creatinine Ratio 25 % 03/22/19 11:10 Glucose 109 mg/dL (65-100) H 03/22/19 11:10 POC Glucose 124 (70-105) H 03/22/19 11:39 Hemoglobin A1c 4.6 % (4-6) 03/10/19 13:16 Lactic Acid 0.80 mmol/L (0.7-2.0) 03/21/19 13:05 Calcium 8.4 mg/dL (8.4-10.2) 03/22/19 11:10 Iron 81 ug/dL (37-170) 03/17/19 11:15 TIBC 127 mcg/dL (250-450) L 03/17/19 11:15 Ferritin 512.4 ng/mL (13.0-400.0) H 03/17/19 11:15 Total Bilirubin 0.50 mg/dL (0.1-1.2) 03/14/19 06:44 AST 144 units/L (5-40) H 03/14/19 06:44 ALT 90 units/L (7-56) H 03/14/19 06:44 Alkaline Phosphatase 226 units/L (35-129) H 03/14/19 06:44 Ammonia 54.0 umol/L (25-60) 03/11/19 07:29 Total Creatine Kinase 194 units/L (30-135) H 03/16/19 05:19 CK-MB (CK-2) 8.6 ng/mL (0.0-4.0) H 03/14/19 06:44 CK-MB (CK-2) Rel Index 7.1 (0-4) H 03/14/19 06:44 Troponin T 0.056 ng/mL (0.00-0.029) H D 03/14/19 06:44 Total Protein 6.7 g/dL (6.3-8.2) 03/14/19 06:44 Albumin 2.2 g/dL (3.9-5) L 03/14/19 06:44 Albumin/Globulin Ratio 0.5 % 03/14/19 06:44 Triglycerides 62 mg/dL (2-149) 03/14/19 06:44 Cholesterol 133 mg/dL (50-199) 03/14/19 06:44 LDL Cholesterol Direct 89 mg/dL (50-130) 03/14/19 06:44 HDL Cholesterol 43 mg/dL (40-59) 03/14/19 06:44 Cholesterol/HDL Ratio 3.09 % 03/14/19 06:44 Procalcitonin 1.19 ng/mL (<0.15) 03/21/19 13:05 Urine Color Straw (Yellow) 03/10/19 14:38 Urine Turbidity Clear (Clear) 03/10/19 14:38 Urine pH 7.0 (5.0-7.0) 03/10/19 14:38 Ur Specific [place] 1.009 (1.003-1.030) 03/10/19 14:38 Urine Protein <15 mg/dl mg/dL (Negative) 03/10/19 14:38 Urine Glucose (UA) Neg mg/dL (Negative) 03/10/19 14:38 Urine Ketones Neg mg/dL (Negative) 03/10/19 14:38 Urine Blood Neg (Negative) 03/10/19 14:38 Urine Nitrite Neg (Negative) 03/10/19 14:38 Urine Bilirubin Neg (Negative) 03/10/19 14:38 Urine Urobilinogen < 2.0 mg/dL (<2.0) 03/10/19 14:38 Ur Leukocyte Esterase Sm (Negative) 03/10/19 14:38 Urine WBC (Auto) 9.0 /HPF (0.0-6.0) H 03/10/19 14:38 Urine RBC (Auto) 2.0 /HPF (0.0-6.0) 03/10/19 14:38 U Epithel Cells (Auto) 1.0 /HPF (0-13.0) 03/10/19 14:38 Urine Bacteria (Auto) 2+ /HPF (Negative) 03/10/19 14:38 Urine Mucus Few /HPF 03/10/19 14:38 Vancomycin Trough 39.7 ug/mL (5.0-20.0) H 03/13/19 05:58 Random Vancomycin 27.6 ug/mL (0-40.0) 03/14/19 05:44 Active Medications - Current Medications Current Medications: Generic Name Dose Route Start Last Admin Trade Name Freq PRN Reason Stop Dose Admin Acetaminophen 650 mg 03/10/19 17:46 Tylenol PO Q4H PRN Pain MILD(1-3)/Fever >100.5/GUERRERO Albuterol 2.5 mg 03/11/19 03:52 Proventil IH TID PRN Wheezing Albuterol/Ipratropium 1 ampul 03/11/19 08:00 03/22/19 08:04 Duoneb *Not For Prn Use* IH 1 ampul Q6HRT CONNIE Administration Lipase/Protease/Amylase 1 each 03/14/19 13:25 Pancremartine Sahni 10,500 Unit FEEDTUBE PRN PRN For Clogged Feeding Tube Dextrose 50 ml 03/10/19 22:27 03/14/19 17:55 D50w (25gm) Syringe IV 50 ml Q30MIN PRN Administration Hypoglycemia Famotidine 20 mg 03/22/19 10:00 03/22/19 10:53 Pepcid PO 20 mg BID CONNIE Administration Fluticasone Propionate 50 mcg 03/11/19 10:00 03/22/19 10:54 Flonase NS 50 mcg QDAY CONNIE Administration Folic Acid 1 mg 03/11/19 10:00 03/22/19 10:53 Folvite PO 1 mg QDAY CONNIE Administration Haloperidol 0.5 mg 03/11/19 03:52 03/12/19 09:32 Haldol PO 0.5 mg Q6H PRN Administration Agitation Hydrophilic Ointment 1 applic 03/14/19 06:51 Vaseline Lip Therapy TP Q2HR PRN Dry Lips Propofol 1,000 mg in 100 mls @ 2.587 mls/hr 03/14/19 07:00 03/14/19 12:00 Diprivan 10 Mg/Ml IV 0 mcg/kg/min TITR CONNIE 0 mls/hr Titration Protocol 5 MCG/KG/MIN Fentanyl Citrate 2,000 mcg in 100 mls @ 4.312 mls/hr 03/14/19 11:00 03/18/19 21:00 Fentanyl Drip Premix IV 2 mcg/kg/hr TITR CONNIE 8.623 mls/hr Titration Protocol 1 MCG/KG/HR Vasopressin 20 unit/ Sodium 101 mls @ 9.09 mls/hr 03/14/19 14:00 03/18/19 12:30 Chloride IV Infused TITR CONNIE Titration Protocol 0.03 UNITS/MIN Dopamine HCl/Dextrose 800 mg in 250 mls @ 3.234 mls/hr 03/14/19 22:00 03/18/19 08:45 Intropin Drip 800 Mg/D5w 250 Ml IV 0 mcg/kg/min TITR CONNIE 0 mls/hr Titration Protocol 2 MCG/KG/MIN Sodium Chloride 500 mls @ 15 mls/hr 03/17/19 20:00 Nacl 0.9% 500 Ml IV PRN CONNIE Piperacillin Sod/Tazobactam Sod 4.5 gm in 100 mls @ 200 mls/hr 03/18/19 22:00 03/22/19 14:00 Zosyn/Ns 4.5gm/100ml IV 03/23/19 23:59 200 mls/hr Q8HR CONNIE Administration Protocol Insulin Human Lispro 0 unit 03/11/19 00:00 03/22/19 13:12 Humalog SUB-Q Not Given Q6HR [facility] Protocol Morphine Sulfate 2 mg 03/10/19 17:56 03/22/19 02:47 Morphine IV 2 mg Q4H PRN Administration Pain, Moderate (4-6) Multi-Ingred Cream/Lotion/Oil/Oint 1 applic 03/14/19 06:51 03/20/19 10:22 Artificial Tears Ophth Oint OU 0.35 applic Q4HR PRN Administration Dry Eye(s) Ondansetron HCl 4 mg 03/10/19 17:46 03/11/19 05:04 Zofran IV 4 mg Q8H PRN Administration Nausea And Vomiting Rifaximin 550 mg 03/11/19 10:00 03/22/19 10:53 Xifaxan PO 550 mg BID CONNIE Administration Scopolamine 1 each 03/20/19 15:00 03/20/19 14:09 Transderm-Scop TD 1 each Q3D CONNIE Administration Simple Syrup 15 ml 03/14/19 13:25 Simple Syrup FEEDTUBE PRN PRN Hypoglycemia Simple Syrup 30 ml 03/14/19 13:25 Simple Syrup FEEDTUBE PRN PRN Hypoglycemia Sodium Bicarbonate 325 mg 03/14/19 13:25 Sodium Bicarbonate FEEDTUBE PRN PRN For Clogged Feeding Tube Sodium Chloride 10 ml 03/10/19 22:00 03/22/19 13:12 Sodium Chloride Flush Syringe 10 Ml IV Not Given BID CONNIE Sodium Chloride 10 ml 03/10/19 17:46 03/13/19 22:50 Sodium Chloride Flush Syringe 10 Ml IV 10 ml PRN PRN Administration LINE FLUSH Thiamine HCl 100 mg 03/11/19 10:00 03/22/19 10:53 Vitamin B-1 PO 100 mg QDAY CONNIE Administration Nutrition/Malnutrition Assess - Dietary Evaluation Nutrition/Malnutrition Findings: Nutrition Notes Start: 03/11/19 10:01 Freq: Status: Active Protocol: Document 03/17/19 11:08 AP (Rec: 03/17/19 11:33 AP [id number]) Co-Sign 03/17/19 11:08 LM Nutrition Notes Need for Assessment generated from: MD Order Initial or Follow up Reassessment Current Diagnosis COPD,Decubitus(Pressure Ulcer) ,Hypertension Other Pertinent Diagnosis AMS/nonverbal, Hep C, Anemia, Renal stones Current Diet Vital AF 1.2 at 55ml/hr Labs/Tests Reviewed Pertinent Medications Reviewed Height 5 ft 3 in Weight 96.5 kg [place] Body Weight (kg) 52.27 BMI 37.7 Weight Status Obese Subjective/Other Information F/U for TF rate/tolerance. Vital AF 1.2 running at 55ml/ hr. Percent of energy/protein needs met: 93%/94% Minimum of two criteria No #1 Nutrition Diagnosis Inadequate oral intake Diagnosis Progress(for reassessment Continues documentation) Is patient on ventilator? Yes Is Patient Ambulatory and/or Out of Bed No REE-([facility]-confined to bed) 1774.128 Calculation Used for Recommendations [facility] Additional Notes Protein: >105 g (>2g/kg IBW 52 .27 kg) Fluids: 1 ml/kcal or per MD Nutrition Intervention Change Diet Order: TF Nutrition Support: Vital AF 1.2 at 55ml/hr Flush 100ml q4h Kcal 1,584 Protein (gm) 99 Fluid (mL) 1,071 Goal #1 TF tolerance Goal #2 TF continue to meet at least 80% of estimated energy and protein needs. Anticipated Discharge Needs: unable to determine at this time Follow-Up By: 03/24/19 Additional Comments F/U for TF tolerance/rate.
--- NOTE | 2019-03-22 15:52 | Progress Note ---
Assessment and Plan Cultures: 03/10 UCx - VRE faecim 03/10 BCx - NGTD 03/14 BCX - NGTD A/P: 68 yo F PMHx hepatitis C, Dm2, many other comorbidities admitted with altered mental status, possible secondary to VRE UTI: 1. VRE UTI - given worsening thrombocytopenia would treat with daptomycin. Would also ensure steen catheter is changed prior to cessation of antibiotics. 2. Hepatitis C 3. DM2 - tight glycemic control for wound healing 4. Hypoxic respiratory failure secondary to aspiration pneumonia - Continue pip- david for now, expect 5-7 day course pending clinical improvement. Recs: - continue pip-david 4.5g q6h. given prolonged intubated and critical illness will extend to 10 days, but longer course not likely clinically useful. Berta Stacy MD [facility] ([facility]) M: [phone] O: [phone] F: [phone] Subjective Date of service: 03/22/19 Principal diagnosis: Severe sepsis with shock; Ac. hypoxemic resp failure; cardiac arrest; PNA Interval history: remains intubated and sedated Objective - Exam Narrative Exam: Constitutional: intubated, sedated Head, Ears, Nose: Normocephalic, atraumatic. External ears, nose normal Eyes: Conjunctivae/corneas clear. No icterus. No ptosis. Neck: Supple, no meningeal signs Oral: dentition fair, no thrush Cardiovascular: S1, S2 normal. Respiratory: Good air entry, clear to auscultation bilaterally GI: Soft, non-tender; bowel sounds normal. No peritoneal signs. Musculoskeletal: No pedal edema, no cyanosis. Skin: No rash or abscess Hem/Lymphatic: No palpable cervical or supraclavicular nodes. No lymphangitis Psych: Sedated Neurological: Intubated, sedated - Constitutional Vitals: Vital Signs Temp Pulse Resp BP Pulse Ox 96.0 F L 64 12 113/72 100 03/22/19 12:00 03/22/19 15:30 03/22/19 15:30 03/22/19 15:30 03/22/19 15:30 Temperature -Last 24 Hours Temperature 96.0 F Temperature 97.2 F Temperature 97.3 F Temperature 97.4 F Temperature 98.3 F Temperature 98.2 F - Labs CBC & Chem 7: 03/22/19 Unknown 03/22/19 11:10 Labs: Abnormal lab results 03/21/19 03/22/19 03/22/19 Range/Units 17:51 05:36 11:10 WBC (4.5-11.0) K/mm3 RBC (3.65-5.03) M/mm3 Hgb (10.1-14.3) gm/dl Hct (30.3-42.9) % MCV (79-97) fl RDW (13.2-15.2) % POC ABG pH (7.35-7.45) POC ABG pCO2 (35-45) Sodium 149 H (137-145) mmol/L Chloride 115.6 H (98-107) mmol/L BUN 20 H (7-17) mg/dL Glucose 109 H (65-100) mg/dL POC Glucose 145 H 106 H (70-105) 03/22/19 03/22/19 03/22/19 Range/Units 11:39 12:04 Unknown WBC 4.2 L (4.5-11.0) K/mm3 RBC 2.45 L (3.65-5.03) M/mm3 Hgb 7.6 L (10.1-14.3) gm/dl Hct 23.9 L (30.3-42.9) % MCV 98 H (79-97) fl RDW 22.2 H (13.2-15.2) % POC ABG pH 7.285 L (7.35-7.45) POC ABG pCO2 55.4 H (35-45) Sodium (137-145) mmol/L Chloride (98-107) mmol/L BUN (7-17) mg/dL Glucose (65-100) mg/dL POC Glucose 124 H (70-105)
[2019-03-23] MEDS: INSULIN LISPRO 100 UNIT/ML SUB-Q SCH ×4 (00:26→18:00)
[2019-03-23] MEDS: IPRATROPIUM/ALBUTEROL SULFATE 3 ML AMPUL.NEB IH SCH ×4 (02:37→21:20)
[2019-03-23] MEDS: PIPERACIL/TAZOBACTA 4.5/NS 100 4.5 GM/100 ML VIAL IV SCH ×3 (05:42→21:44)
[2019-03-23 05:53] LABS: Hematocrit 21.4 % (30.3-42.9); Mean Corpuscular HGB Conc 33 % (30-34); Mean Corpuscular Volume 97 fl (79-97); Platelet Count 162 K/mm3 (140-440); Red Blood Count 2.22 M/mm3 (3.65-5.03)
[2019-03-23 06:12] LABS: Red Cell Distribution Width 21.5 % (13.2-15.2)
[2019-03-23 06:17] LABS: BUN/Creatinine Ratio 21; Blood Urea Nitrogen 19 mg/dL (7-17); Calcium 8.3 mg/dL (8.4-10.2); Hemolysis Index 4
--- NOTE | 2019-03-23 07:30 | Hem/Onc Progress Note ---
Assessment and Plan 1. h/o Leukopenia and the patient has a history of liver disease and alcohol usage. These may have a role. Thrombocytopenia may have a similar reason. Deficiency investigations. In January, B12 was 1400, folate 13. 2. Encephalopathy, being treated for sepsis. 3. History of electrolyte imbalance. 4. History of hypertension. 5. History of chronic obstructive pulmonary disease. 6. AST, ALT abnormality. 7. The patient was placed on reverse isolation. I will follow the patient during inpatient stay. b12 - folate normal - will follow h/o plt low - may be sec to infection/meds/antibiotics - pt was on vanco - zosyn - daptomycin ID following pt b12- folate - iron ferritin WNL platelets better - d/w Staff - lovenox for DVT prevention - Patient Problems (1) Leukopenia Current Visit: Yes Status: Acute Qualifiers: Leukopenia type: unspecified Qualified Code(s): D72.819 - Decreased white blood cell count, unspecified Subjective Date of service: 03/23/19 Principal diagnosis: anemia Interval history: pt plt are better - still on vent Objective - Exam Narrative Exam: Pain - on vent General appearance - intubated Performance status - complete dependence Eyes - no icterus, ENT - no bleeding LNs cervical not palpable Neck - no LN Respiratory Normal Breath sounds - CTA anteriorly CVS S1 S2 + Extremities edema+ General GI Soft Rectal deferred female - deferred Skin warm Musculoskeletal on vent Neurologically intubated - Constitutional Vitals: Last Vital Signs Temp 99.7 F H 03/23/19 04:00 Pulse 92 H 03/23/19 06:00 Resp 22 03/23/19 06:00 BP 103/54 03/23/19 06:00 Pulse Ox 100 03/23/19 06:00 - Labs Lab Results: Laboratory Results - last 24 hr 03/22/19 03/22/19 03/22/19 11:10 11:39 12:04 WBC RBC Hgb Hct MCV MCH MCHC RDW Plt Count POC ABG pH 7.285 L POC ABG pCO2 55.4 H POC ABG pO2 101 POC ABG HCO3 26.3 POC ABG Total CO2 28 POC ABG O2 Sat 97 POC ABG Base Excess 0 FiO2 25 Sodium 149 H Potassium 3.9 Chloride 115.6 H Carbon Dioxide 26 Anion Gap 11 BUN 20 H Creatinine 0.8 Estimated GFR > 60 BUN/Creatinine Ratio 25 Glucose 109 H POC Glucose 124 H Calcium 8.4 03/22/19 03/22/19 03/22/19 18:36 23:39 Unknown WBC 4.2 L RBC 2.45 L Hgb 7.6 L Hct 23.9 L MCV 98 H MCH 31 MCHC 32 RDW 22.2 H Plt Count 149 POC ABG pH POC ABG pCO2 POC ABG pO2 POC ABG HCO3 POC ABG Total CO2 POC ABG O2 Sat POC ABG Base Excess FiO2 Sodium Potassium Chloride Carbon Dioxide Anion Gap BUN Creatinine Estimated GFR BUN/Creatinine Ratio Glucose POC Glucose 120 H 99 Calcium 03/23/19 03/23/19 03/23/19 04:37 05:12 05:30 WBC 4.2 L RBC 2.22 L Hgb 7.0 L Hct 21.4 L MCV 97 MCH 32 MCHC 33 RDW 21.5 H Plt Count 162 POC ABG pH 7.500 H POC ABG pCO2 39.6 POC ABG pO2 60 L POC ABG HCO3 30.8 POC ABG Total CO2 32 POC ABG O2 Sat 93 POC ABG Base Excess 8 FiO2 25 Sodium Potassium Chloride Carbon Dioxide Anion Gap BUN Creatinine Estimated GFR BUN/Creatinine Ratio Glucose POC Glucose 106 H Calcium 03/23/19 05:30 WBC RBC Hgb Hct MCV MCH MCHC RDW Plt Count POC ABG pH POC ABG pCO2 POC ABG pO2 POC ABG HCO3 POC ABG Total CO2 POC ABG O2 Sat POC ABG Base Excess FiO2 Sodium 149 H Potassium 3.8 Chloride 114.7 H Carbon Dioxide 23 Anion Gap 15 BUN 19 H Creatinine 0.9 Estimated GFR > 60 BUN/Creatinine Ratio 21 Glucose 99 POC Glucose Calcium 8.3 L Medications & Allergies - Medications Allergies/Adverse Reactions: Allergies No Known Allergies Allergy (Verified 01/06/17 23:38) Per son Home Medications: Home Medications Medication Instructions Recorded Confirmed Last Taken Type Folic Acid [Folvite] 1 mg PO QDAY #30 tablet 08/12/18 03/10/19 03/09/19 Rx Haloperidol [Haldol] 0.5 mg PO Q6H PRN #30 tablet 08/12/18 03/10/19 03/10/19 Rx Lactulose [Cephulac] 20 gm PO Q12H #1 bottle 08/12/18 03/10/19 03/09/19 Rx Rifaximin [Xifaxan] 550 mg PO BID #60 tablet 08/12/18 03/10/19 03/09/19 Rx Thiamine [Vitamin B-1] 100 mg PO QDAY #30 tablet 08/12/18 03/10/19 03/09/19 Rx amLODIPine 5 mg PO QDAY #30 tablet 08/12/18 03/10/19 03/09/19 Rx chlordiazePOXIDE [Librium] 25 mg PO DAILY #3 capsule 08/12/18 03/10/19 03/09/19 Rx ALBUTEROL NEB's [Proventil] 2.5 mg IH TID PRN 02/06/19 03/10/19 03/09/19 History Acetaminophen [Tylenol] 650 mg PO Q6HR PRN 02/06/19 03/10/19 03/09/19 History Fluticasone [Flonase] 1 spray NS QDAY 02/06/19 03/10/19 03/09/19 History Ipratropium/Albuterol Sulfate 1 spray IH QID 02/06/19 03/10/19 03/09/19 History [Combivent Respimat] Melatonin [Melatonin 10MG CAP] 10 mg PO QHS 02/06/19 03/10/19 03/09/19 History Active Medications: Generic Name Dose Route Start Last Admin Trade Name Freq PRN Reason Stop Dose Admin Acetaminophen 650 mg 03/10/19 17:46 Tylenol PO Q4H PRN Pain MILD(1-3)/Fever >100.5/GUERRERO Albuterol 2.5 mg 03/11/19 03:52 Proventil IH TID PRN Wheezing Albuterol/Ipratropium 1 ampul 03/11/19 08:00 03/23/19 02:37 Duoneb *Not For Prn Use* IH 1 ampul Q6HRT CONNIE Administration Lipase/Protease/Amylase 1 each 03/14/19 13:25 Pancremartine Sahni 10,500 Unit FEEDTUBE PRN PRN For Clogged Feeding Tube Dextrose 50 ml 03/10/19 22:27 03/14/19 17:55 D50w (25gm) Syringe IV 50 ml Q30MIN PRN Administration Hypoglycemia Famotidine 20 mg 03/22/19 10:00 03/22/19 22:12 Pepcid PO 20 mg BID CONNIE Administration Fluticasone Propionate 50 mcg 03/11/19 10:00 03/22/19 10:54 Flonase NS 50 mcg QDAY CONNIE Administration Folic Acid 1 mg 03/11/19 10:00 03/22/19 10:53 Folvite PO 1 mg QDAY CONNIE Administration Haloperidol 0.5 mg 03/11/19 03:52 03/12/19 09:32 Haldol PO 0.5 mg Q6H PRN Administration Agitation Hydrophilic Ointment 1 applic 03/14/19 06:51 Vaseline Lip Therapy TP Q2HR PRN Dry Lips Propofol 1,000 mg in 100 mls @ 2.587 mls/hr 03/14/19 07:00 03/14/19 12:00 Diprivan 10 Mg/Ml IV 0 mcg/kg/min TITR CONNIE 0 mls/hr Titration Protocol 5 MCG/KG/MIN Fentanyl Citrate 2,000 mcg in 100 mls @ 4.312 mls/hr 03/14/19 11:00 03/18/19 21:00 Fentanyl Drip Premix IV 2 mcg/kg/hr TITR CONNIE 8.623 mls/hr Titration Protocol 1 MCG/KG/HR Vasopressin 20 unit/ Sodium 101 mls @ 9.09 mls/hr 03/14/19 14:00 03/18/19 12:30 Chloride IV Infused TITR CONNIE Titration Protocol 0.03 UNITS/MIN Dopamine HCl/Dextrose 800 mg in 250 mls @ 3.234 mls/hr 03/14/19 22:00 03/18/19 08:45 Intropin Drip 800 Mg/D5w 250 Ml IV 0 mcg/kg/min TITR CONNIE 0 mls/hr Titration Protocol 2 MCG/KG/MIN Sodium Chloride 500 mls @ 15 mls/hr 03/17/19 20:00 Nacl 0.9% 500 Ml IV PRN CONNIE Piperacillin Sod/Tazobactam Sod 4.5 gm in 100 mls @ 200 mls/hr 03/18/19 22:00 03/23/19 05:42 Zosyn/Ns 4.5gm/100ml IV 03/23/19 23:59 200 mls/hr Q8HR CONNIE Administration Protocol Insulin Human Lispro 0 unit 03/11/19 00:00 03/23/19 05:32 Humalog SUB-Q Not Given Q6HR CONNIE Protocol Morphine Sulfate 2 mg 03/10/19 17:56 03/22/19 02:47 Morphine IV 2 mg Q4H PRN Administration Pain, Moderate (4-6) Multi-Ingred Cream/Lotion/Oil/Oint 1 applic 03/14/19 06:51 03/20/19 10:22 Artificial Tears Ophth Oint OU 0.35 applic Q4HR PRN Administration Dry Eye(s) Ondansetron HCl 4 mg 03/10/19 17:46 03/11/19 05:04 Zofran IV 4 mg Q8H PRN Administration Nausea And Vomiting Rifaximin 550 mg 03/11/19 10:00 03/22/19 22:12 Xifaxan PO 550 mg BID CONNIE Administration Scopolamine 1 each 03/20/19 15:00 03/20/19 14:09 Transderm-Scop TD 1 each Q3D CONNIE Administration Simple Syrup 15 ml 03/14/19 13:25 Simple Syrup FEEDTUBE PRN PRN Hypoglycemia Simple Syrup 30 ml 03/14/19 13:25 Simple Syrup FEEDTUBE PRN PRN Hypoglycemia Sodium Bicarbonate 325 mg 03/14/19 13:25 Sodium Bicarbonate FEEDTUBE PRN PRN For Clogged Feeding Tube Sodium Chloride 10 ml 03/10/19 22:00 03/22/19 22:12 Sodium Chloride Flush Syringe 10 Ml IV 10 ml BID CONNIE Administration Sodium Chloride 10 ml 03/10/19 17:46 03/13/19 22:50 Sodium Chloride Flush Syringe 10 Ml IV 10 ml PRN PRN Administration LINE FLUSH Thiamine HCl 100 mg 03/11/19 10:00 03/22/19 10:53 Vitamin B-1 PO 100 mg QDAY CONNIE Administration
[2019-03-23] MEDS: FAMOTIDINE 20 MG TAB PO SCH ×2 (10:02→21:44)
[2019-03-23] MEDS: FOLIC ACID 1 MG TAB PO SCH (10:02)
[2019-03-23] MEDS: FLUTICASONE PROPIONATE NASAL SPRAY 16 GM NS SCH (10:02)
[2019-03-23] MEDS: THIAMINE 100 MG TAB PO SCH (10:02)
[2019-03-23] MEDS: RIFAXIMIN 550 MG TAB PO SCH ×2 (10:02→21:44)
--- NOTE | 2019-03-23 10:25 | Progress Note ---
Assessment and Plan Severe sepsis with septic shock Cardiac arrest (asystole with ROSC) Acute hypoxic respiratory failure on MVS Lactic acidosis- multifactorial (resolved) Acute toxic- metabolic encephalopathy Aspiration pneumonia VRE UTI Hypernatremia Thrombocytopenia h/o Cirrhosis h/o Alcohol abuse disorder KERRI Hyperkalemia - failed SBT; ABG with hypercapnic acidosis - resume daily SAT's and SBT assessment as tolerated in am - CT head done and no acute process noted - weaned off vasopressors now - discontinued steen catheter - place scopolamine patch for secretion control - VAP bundle addressed (Aspiration precautions, HOB > 40 degrees) - continue Lung protective strategies - continue to wean FIO2 for O2 sats >90% - prn CXR's & ABG's acutely - continue to avoid nephrotoxins and adjust all medications fro GFR and CrCL - continue enteral nutrition and advance to goal rate as tolerated (hold for tentative extubation) - continue agitation management / Pain management per CPOT - continue empiric antibiotics for aspiration PNA, antibiotics for VRE, de- escalate based on cultures and clinical status (ID input appreciated) - Continue contact isolation - Continue VTE prophylaxis (SCDs), trend platelet counts and monitor for bleeding - continue stress ulcer prophylaxis with PPI - continue accuchecks with glycemic control for SSI (While critically ill target blood glucose of 140-180 mg/dL; avoid hypoglycemia) - Continue mobility protocol for pressure ulcer prevention - Continue to monitor hemodynamics closely - Monitor electrolyte profile closely and replete as indicated - continue chronic home medications per attending and as clinically indicated - continue other care per attending / other consultants .... re-evaluate in am & prn CONDITION: CRITICAL PROGNOSIS: GUARDED CODE STATUS: FULL CODE The high probability of a clinically significant, sudden or life-threatening deterioration of the [respiratory, cardiovascular, neurology, hematology] system(s) required my full and direct attention, intervention and personal management. The aggregate critical care time was [35] minutes without overlap. Time includes spent on; [x] Data Review and interpretation [x] Patient assessment and monitoring of vital signs [x] Documentation [x] Medication orders and management Subjective Date of service: 03/23/19 Principal diagnosis: Severe sepsis with shock; Ac. hypoxemic resp failure; cardiac arrest; PNA Interval history: Follow up for severe sepsis with septic shock; acute hypoxemic respiratory failure on MVS; s/p cardiac arrest with ROSC; VRE UTI; Aspiration pneumonia Seen and examined at bedside; 24hour events reviewed; nursing and respiratory care staff consulted; no adverse overnight events reported to me; resting in bed; on SBT but tolerating tenuously; AMS is persistent; No N/V/F/C Objective Vital Signs - 12hr 03/22/19 03/22/19 03/22/19 22:30 23:00 23:30 Temperature Pulse Rate 78 78 83 Pulse Rate [ Anterior Bilateral] Pulse Rate [ Anterior Throughout] Pulse Rate [ From Monitor] Respiratory 13 18 18 Rate Respiratory Rate [Anterior Bilateral] Respiratory Rate [Anterior Throughout] Blood Pressure 96/61 100/62 102/63 O2 Sat by Pulse 100 100 100 Oximetry 03/23/19 03/23/19 03/23/19 00:00 00:16 00:30 Temperature 96.2 F L Pulse Rate 83 77 83 Pulse Rate [ Anterior Bilateral] Pulse Rate [ Anterior Throughout] Pulse Rate [ From Monitor] Respiratory 20 21 Rate Respiratory Rate [Anterior Bilateral] Respiratory Rate [Anterior Throughout] Blood Pressure 102/55 96/61 103/63 O2 Sat by Pulse 100 100 100 Oximetry 03/23/19 03/23/19 03/23/19 01:00 01:30 02:00 Temperature Pulse Rate 82 88 88 Pulse Rate [ Anterior Bilateral] Pulse Rate [ Anterior Throughout] Pulse Rate [ From Monitor] Respiratory 21 21 19 Rate Respiratory Rate [Anterior Bilateral] Respiratory Rate [Anterior Throughout] Blood Pressure 104/63 110/64 106/64 O2 Sat by Pulse 100 100 100 Oximetry 03/23/19 03/23/19 03/23/19 02:30 02:37 03:00 Temperature Pulse Rate 84 93 H Pulse Rate [ 72 Anterior Bilateral] Pulse Rate [ 78 Anterior Throughout] Pulse Rate [ From Monitor] Respiratory 20 19 Rate Respiratory 19 Rate [Anterior Bilateral] Respiratory 22 Rate [Anterior Throughout] Blood Pressure 103/66 100/58 O2 Sat by Pulse 100 100 Oximetry 03/23/19 03/23/19 03/23/19 03:30 03:43 04:00 Temperature 99.7 F H Pulse Rate 95 H 93 H Pulse Rate [ Anterior Bilateral] Pulse Rate [ Anterior Throughout] Pulse Rate [ From Monitor] Respiratory 17 Rate Respiratory Rate [Anterior Bilateral] Respiratory Rate [Anterior Throughout] Blood Pressure 97/59 O2 Sat by Pulse 100 100 Oximetry 03/23/19 03/23/19 03/23/19 04:01 04:30 04:31 Temperature Pulse Rate 96 H 106 H 96 H Pulse Rate [ Anterior Bilateral] Pulse Rate [ Anterior Throughout] Pulse Rate [ From Monitor] Respiratory 18 21 Rate Respiratory Rate [Anterior Bilateral] Respiratory Rate [Anterior Throughout] Blood Pressure 102/61 111/66 102/61 O2 Sat by Pulse 100 100 100 Oximetry 03/23/19 03/23/19 03/23/19 05:00 05:30 06:00 Temperature Pulse Rate 99 H 95 H 92 H Pulse Rate [ Anterior Bilateral] Pulse Rate [ Anterior Throughout] Pulse Rate [ From Monitor] Respiratory 22 24 22 Rate Respiratory Rate [Anterior Bilateral] Respiratory Rate [Anterior Throughout] Blood Pressure 104/64 102/57 103/54 O2 Sat by Pulse 100 100 100 Oximetry 03/23/19 03/23/19 03/23/19 06:30 07:00 07:30 Temperature Pulse Rate 96 H 95 H 96 H Pulse Rate [ Anterior Bilateral] Pulse Rate [ Anterior Throughout] Pulse Rate [ From Monitor] Respiratory 23 26 H 23 Rate Respiratory Rate [Anterior Bilateral] Respiratory Rate [Anterior Throughout] Blood Pressure 111/60 104/53 111/68 O2 Sat by Pulse 100 100 100 Oximetry 03/23/19 03/23/19 03/23/19 08:00 08:30 09:00 Temperature 100.7 F H Pulse Rate 109 H 91 H 90 Pulse Rate [ Anterior Bilateral] Pulse Rate [ Anterior Throughout] Pulse Rate [ 95 H From Monitor] Respiratory 18 22 18 Rate Respiratory Rate [Anterior Bilateral] Respiratory Rate [Anterior Throughout] Blood Pressure 111/68 112/64 115/65 O2 Sat by Pulse 100 100 100 Oximetry 03/23/19 09:15 Temperature Pulse Rate Pulse Rate [ Anterior Bilateral] Pulse Rate [ Anterior Throughout] Pulse Rate [ From Monitor] Respiratory 32 H Rate Respiratory Rate [Anterior Bilateral] Respiratory Rate [Anterior Throughout] Blood Pressure O2 Sat by Pulse Oximetry Constitutional: appears uncomfortable, other (elderly looking obese AAF with mild respiratory distress on MVS ) Eyes: non-icteric ENT: oropharynx moist, other (ETT 23 cm JA) Neck: supple, no lymphadenopathy, no JVD, other (RIJ in neck) Effort: mildly labored Ascultation: Bilateral: diminished breath sounds, rhonchi Percussion: Bilateral: not dull Cardiovascular: regular rate and rhythm, other (S1, S2, no murmurs, gallops or rubs rhythm strip shows accelerated junctional ) Gastrointestinal: normoactive bowel sounds, soft, non-tender, non-distended, other (No HSM) Integumentary: normal Extremities: no cyanosis, no edema, pulses normal, no ischemia or petechiae Neurologic: non-focal exam (grossly), pupils equal and round, unable to assess Psychiatric: other (unable to assess) CBC and BMP: 03/26/19 06:50 03/26/19 04:40 ABG, PT/INR, D-dimer: ABG POC ABG pH 7.500 (7.35-7.45) H 03/23/19 04:37 ABG pH 7.380 pH Units (7.350-7.450) 03/20/19 04:27 POC ABG pCO2 39.6 (35-45) 03/23/19 04:37 ABG pCO2 40.2 mm Hg 03/20/19 04:27 POC ABG pO2 60 (80-105) L 03/23/19 04:37 ABG pO2 121.6 mm Hg (80.0-90.0) H 03/20/19 04:27 POC ABG HCO3 30.8 (22-26 mml/L) 03/23/19 04:37 POC ABG Total CO2 32 (23-27mmol/L) 03/23/19 04:37 POC ABG O2 Sat 93 03/23/19 04:37 ABG O2 Saturation 98.3 % (95.0-99.0) 03/20/19 04:27 Abnormal lab findings: Abnormal Labs 03/10/19 03/10/19 03/10/19 13:16 13:16 14:38 WBC 0.8 L* RBC 3.35 L Hgb Hct MCV RDW 22.1 H Plt Count 78 L Lymph % (Auto) Lymph # Seg Neutrophils % Seg Neuts % (Manual) Lymphocytes % (Manual) 49.0 H Monocytes % (Manual) Eosinophils % (Manual) Nucleated RBC % Seg Neutrophils # Man 0.3 L Lymphocytes # (Manual) 0.4 L POC ABG pH ABG pH POC ABG pCO2 POC ABG pO2 ABG pO2 ABG HCO3 ABG Base Excess ABG Hemoglobin Oxyhemoglobin Sodium 147 H Potassium 5.4 H Chloride 111.8 H Carbon Dioxide BUN Creatinine 0.6 L Glucose POC Glucose Lactic Acid Calcium TIBC Ferritin AST 128 H ALT 79 H Alkaline Phosphatase 174 H Total Creatine Kinase CK-MB (CK-2) CK-MB (CK-2) Rel Index Troponin T Total Protein Albumin 2.4 L Urine WBC (Auto) 9.0 H Vancomycin Trough 03/10/19 03/10/19 03/11/19 21:22 23:36 07:29 WBC RBC Hgb Hct MCV RDW Plt Count Lymph % (Auto) Lymph # Seg Neutrophils % Seg Neuts % (Manual) Lymphocytes % (Manual) Monocytes % (Manual) Eosinophils % (Manual) Nucleated RBC % Seg Neutrophils # Man Lymphocytes # (Manual) POC ABG pH ABG pH POC ABG pCO2 POC ABG pO2 ABG pO2 ABG HCO3 ABG Base Excess ABG Hemoglobin Oxyhemoglobin Sodium 148 H Potassium 5.6 H Chloride 122.3 H Carbon Dioxide 20 L BUN Creatinine 0.6 L Glucose POC Glucose 65 L 112 H Lactic Acid Calcium TIBC Ferritin AST 102 H ALT 65 H Alkaline Phosphatase 134 H Total Creatine Kinase CK-MB (CK-2) CK-MB (CK-2) Rel Index Troponin T Total Protein 6.1 L Albumin 1.8 L Urine WBC (Auto) Vancomycin Trough 03/11/19 03/11/19 03/11/19 11:25 15:28 18:00 WBC 1.2 L* RBC Hgb Hct MCV RDW 22.1 H Plt Count 53 L Lymph % (Auto) Lymph # Seg Neutrophils % Seg Neuts % (Manual) 78.6 H Lymphocytes % (Manual) 9.5 L Monocytes % (Manual) 9.5 H Eosinophils % (Manual) Nucleated RBC % Seg Neutrophils # Man 0.9 L Lymphocytes # (Manual) 0.1 L POC ABG pH ABG pH POC ABG pCO2 POC ABG pO2 ABG pO2 ABG HCO3 ABG Base Excess ABG Hemoglobin Oxyhemoglobin Sodium Potassium Chloride Carbon Dioxide BUN Creatinine Glucose POC Glucose 117 H 118 H Lactic Acid Calcium TIBC Ferritin AST ALT Alkaline Phosphatase Total Creatine Kinase CK-MB (CK-2) CK-MB (CK-2) Rel Index Troponin T Total Protein Albumin Urine WBC (Auto) Vancomycin Trough 03/12/19 03/12/19 03/12/19 00:19 05:45 08:55 WBC 2.4 L RBC 3.33 L Hgb Hct MCV RDW 22.8 H Plt Count 58 L Lymph % (Auto) Lymph # Seg Neutrophils % Seg Neuts % (Manual) 93.0 H Lymphocytes % (Manual) 4.0 L Monocytes % (Manual) Eosinophils % (Manual) Nucleated RBC % 7.0 H Seg Neutrophils # Man Lymphocytes # (Manual) 0.1 L POC ABG pH ABG pH POC ABG pCO2 POC ABG pO2 ABG pO2 ABG HCO3 ABG Base Excess ABG Hemoglobin Oxyhemoglobin Sodium Potassium Chloride Carbon Dioxide BUN Creatinine Glucose POC Glucose 124 H 116 H Lactic Acid Calcium TIBC Ferritin AST ALT Alkaline Phosphatase Total Creatine Kinase CK-MB (CK-2) CK-MB (CK-2) Rel Index Troponin T Total Protein Albumin Urine WBC (Auto) Vancomycin Trough 03/12/19 03/13/19 03/13/19 08:55 00:18 03:48 WBC 2.7 L RBC 3.06 L Hgb 9.4 L Hct 29.4 L MCV RDW 23.1 H Plt Count 62 L Lymph % (Auto) Lymph # Seg Neutrophils % Seg Neuts % (Manual) 76.0 H Lymphocytes % (Manual) Monocytes % (Manual) Eosinophils % (Manual) Nucleated RBC % 11.0 H Seg Neutrophils # Man Lymphocytes # (Manual) 0.5 L POC ABG pH ABG pH POC ABG pCO2 POC ABG pO2 ABG pO2 ABG HCO3 ABG Base Excess ABG Hemoglobin Oxyhemoglobin Sodium Potassium 5.6 H Chloride 114.2 H Carbon Dioxide 21 L BUN Creatinine Glucose POC Glucose 119 H Lactic Acid Calcium TIBC Ferritin AST ALT Alkaline Phosphatase Total Creatine Kinase CK-MB (CK-2) CK-MB (CK-2) Rel Index Troponin T Total Protein Albumin Urine WBC (Auto) Vancomycin Trough 03/13/19 03/13/19 03/13/19 03:48 05:52 05:58 WBC RBC Hgb Hct MCV RDW Plt Count Lymph % (Auto) Lymph # Seg Neutrophils % Seg Neuts % (Manual) Lymphocytes % (Manual) Monocytes % (Manual) Eosinophils % (Manual) Nucleated RBC % Seg Neutrophils # Man Lymphocytes # (Manual) POC ABG pH ABG pH POC ABG pCO2 POC ABG pO2 ABG pO2 ABG HCO3 ABG Base Excess ABG Hemoglobin Oxyhemoglobin Sodium Potassium Chloride 112.7 H Carbon Dioxide 21 L BUN Creatinine Glucose 103 H POC Glucose 114 H Lactic Acid Calcium TIBC Ferritin AST ALT Alkaline Phosphatase Total Creatine Kinase CK-MB (CK-2) CK-MB (CK-2) Rel Index Troponin T Total Protein Albumin Urine WBC (Auto) Vancomycin Trough 39.7 H 03/13/19 03/13/19 03/14/19 12:12 18:00 00:17 WBC RBC Hgb Hct MCV RDW Plt Count Lymph % (Auto) Lymph # Seg Neutrophils % Seg Neuts % (Manual) Lymphocytes % (Manual) Monocytes % (Manual) Eosinophils % (Manual) Nucleated RBC % Seg Neutrophils # Man Lymphocytes # (Manual) POC ABG pH ABG pH POC ABG pCO2 POC ABG pO2 ABG pO2 ABG HCO3 ABG Base Excess ABG Hemoglobin Oxyhemoglobin Sodium Potassium Chloride Carbon Dioxide BUN Creatinine Glucose POC Glucose 116 H 132 H 130 H Lactic Acid Calcium TIBC Ferritin AST ALT Alkaline Phosphatase Total Creatine Kinase CK-MB (CK-2) CK-MB (CK-2) Rel Index Troponin T Total Protein Albumin Urine WBC (Auto) Vancomycin Trough 03/14/19 03/14/19 03/14/19 05:24 06:44 06:44 WBC 2.6 L RBC 3.00 L Hgb 9.2 L Hct 28.3 L MCV RDW 22.5 H Plt Count 44 L Lymph % (Auto) Lymph # Seg Neutrophils % Seg Neuts % (Manual) 75.0 H Lymphocytes % (Manual) Monocytes % (Manual) Eosinophils % (Manual) 5.0 H Nucleated RBC % 19.0 H Seg Neutrophils # Man Lymphocytes # (Manual) 0.4 L POC ABG pH ABG pH POC ABG pCO2 POC ABG pO2 ABG pO2 ABG HCO3 ABG Base Excess ABG Hemoglobin Oxyhemoglobin Sodium Potassium Chloride 110.2 H Carbon Dioxide 21 L BUN Creatinine 1.3 H Glucose POC Glucose 110 H Lactic Acid Calcium TIBC Ferritin AST 144 H ALT 90 H Alkaline Phosphatase 226 H Total Creatine Kinase CK-MB (CK-2) 8.6 H CK-MB (CK-2) Rel Index 7.1 H Troponin T 0.056 H D Total Protein Albumin 2.2 L Urine WBC (Auto) Vancomycin Trough 03/14/19 03/14/19 03/14/19 09:05 11:54 12:15 WBC RBC Hgb Hct MCV RDW Plt Count Lymph % (Auto) Lymph # Seg Neutrophils % Seg Neuts % (Manual) Lymphocytes % (Manual) Monocytes % (Manual) Eosinophils % (Manual) Nucleated RBC % Seg Neutrophils # Man Lymphocytes # (Manual) POC ABG pH 7.283 L 7.458 H ABG pH POC ABG pCO2 54.9 H 32.7 L POC ABG pO2 76 L ABG pO2 ABG HCO3 ABG Base Excess ABG Hemoglobin Oxyhemoglobin Sodium Potassium Chloride Carbon Dioxide BUN Creatinine Glucose POC Glucose Lactic Acid 2.10 H* Calcium TIBC Ferritin AST ALT Alkaline Phosphatase Total Creatine Kinase CK-MB (CK-2) CK-MB (CK-2) Rel Index Troponin T Total Protein Albumin Urine WBC (Auto) Vancomycin Trough 03/14/19 03/14/19 03/14/19 12:43 13:35 15:35 WBC RBC Hgb Hct MCV RDW Plt Count Lymph % (Auto) Lymph # Seg Neutrophils % Seg Neuts % (Manual) Lymphocytes % (Manual) Monocytes % (Manual) Eosinophils % (Manual) Nucleated RBC % Seg Neutrophils # Man Lymphocytes # (Manual) POC ABG pH ABG pH POC ABG pCO2 POC ABG pO2 ABG pO2 ABG HCO3 ABG Base Excess ABG Hemoglobin Oxyhemoglobin Sodium Potassium Chloride Carbon Dioxide BUN Creatinine Glucose POC Glucose 68 L Lactic Acid 2.10 H* 3.50 H* Calcium TIBC Ferritin AST ALT Alkaline Phosphatase Total Creatine Kinase CK-MB (CK-2) CK-MB (CK-2) Rel Index Troponin T Total Protein Albumin Urine WBC (Auto) Vancomycin Trough 03/14/19 03/14/19 03/14/19 17:34 17:46 17:55 WBC RBC Hgb Hct MCV RDW Plt Count Lymph % (Auto) Lymph # Seg Neutrophils % Seg Neuts % (Manual) Lymphocytes % (Manual) Monocytes % (Manual) Eosinophils % (Manual) Nucleated RBC % Seg Neutrophils # Man Lymphocytes # (Manual) POC ABG pH 7.241 L 7.244 L ABG pH POC ABG pCO2 50.4 H 50.1 H POC ABG pO2 156 H ABG pO2 ABG HCO3 ABG Base Excess ABG Hemoglobin Oxyhemoglobin Sodium Potassium Chloride Carbon Dioxide BUN Creatinine Glucose POC Glucose 49 L Lactic Acid Calcium TIBC Ferritin AST ALT Alkaline Phosphatase Total Creatine Kinase CK-MB (CK-2) CK-MB (CK-2) Rel Index Troponin T Total Protein Albumin Urine WBC (Auto) Vancomycin Trough 03/14/19 03/14/19 03/14/19 18:29 18:32 20:27 WBC RBC Hgb Hct MCV RDW Plt Count Lymph % (Auto) Lymph # Seg Neutrophils % Seg Neuts % (Manual) Lymphocytes % (Manual) Monocytes % (Manual) Eosinophils % (Manual) Nucleated RBC % Seg Neutrophils # Man Lymphocytes # (Manual) POC ABG pH ABG pH POC ABG pCO2 POC ABG pO2 ABG pO2 ABG HCO3 ABG Base Excess ABG Hemoglobin Oxyhemoglobin Sodium Potassium Chloride 112.6 H Carbon Dioxide 19 L BUN Creatinine 1.4 H Glucose 132 H POC Glucose 57 L 115 H Lactic Acid Calcium TIBC Ferritin AST ALT Alkaline Phosphatase Total Creatine Kinase CK-MB (CK-2) CK-MB (CK-2) Rel Index Troponin T Total Protein Albumin Urine WBC (Auto) Vancomycin Trough 03/14/19 03/14/19 03/15/19 23:47 Unknown 04:00 WBC RBC 2.77 L Hgb 8.5 L Hct 27.3 L MCV 98 H RDW 23.0 H Plt Count 27 L Lymph % (Auto) Lymph # Seg Neutrophils % Seg Neuts % (Manual) 75.0 H Lymphocytes % (Manual) 1.0 L Monocytes % (Manual) Eosinophils % (Manual) Nucleated RBC % 4.0 H Seg Neutrophils # Man Lymphocytes # (Manual) 0.1 L POC ABG pH ABG pH POC ABG pCO2 POC ABG pO2 ABG pO2 ABG HCO3 ABG Base Excess ABG Hemoglobin Oxyhemoglobin Sodium Potassium Chloride Carbon Dioxide BUN Creatinine Glucose POC Glucose 116 H Lactic Acid 3.30 H* Calcium TIBC Ferritin AST ALT Alkaline Phosphatase Total Creatine Kinase CK-MB (CK-2) CK-MB (CK-2) Rel Index Troponin T Total Protein Albumin Urine WBC (Auto) Vancomycin Trough 03/15/19 03/15/19 03/15/19 04:00 06:24 07:35 WBC RBC Hgb Hct MCV RDW Plt Count Lymph % (Auto) Lymph # Seg Neutrophils % Seg Neuts % (Manual) Lymphocytes % (Manual) Monocytes % (Manual) Eosinophils % (Manual) Nucleated RBC % Seg Neutrophils # Man Lymphocytes # (Manual) POC ABG pH 7.282 L ABG pH POC ABG pCO2 50.4 H POC ABG pO2 71 L ABG pO2 ABG HCO3 ABG Base Excess ABG Hemoglobin Oxyhemoglobin Sodium Potassium Chloride 112.1 H Carbon Dioxide 19 L BUN Creatinine 1.5 H Glucose 123 H POC Glucose 140 H Lactic Acid Calcium 8.2 L TIBC Ferritin AST ALT Alkaline Phosphatase Total Creatine Kinase CK-MB (CK-2) CK-MB (CK-2) Rel Index Troponin T Total Protein Albumin Urine WBC (Auto) Vancomycin Trough 03/15/19 03/15/19 03/16/19 11:47 23:25 04:33 WBC RBC Hgb Hct MCV RDW Plt Count Lymph % (Auto) Lymph # Seg Neutrophils % Seg Neuts % (Manual) Lymphocytes % (Manual) Monocytes % (Manual) Eosinophils % (Manual) Nucleated RBC % Seg Neutrophils # Man Lymphocytes # (Manual) POC ABG pH ABG pH 7.304 L POC ABG pCO2 POC ABG pO2 ABG pO2 174.4 H ABG HCO3 19.2 L ABG Base Excess -6.6 L ABG Hemoglobin 8.5 L Oxyhemoglobin Sodium Potassium Chloride Carbon Dioxide BUN Creatinine Glucose POC Glucose 161 H 139 H Lactic Acid Calcium TIBC Ferritin AST ALT Alkaline Phosphatase Total Creatine Kinase CK-MB (CK-2) CK-MB (CK-2) Rel Index Troponin T Total Protein Albumin Urine WBC (Auto) Vancomycin Trough 03/16/19 03/16/19 03/16/19 05:19 05:19 05:19 WBC RBC 2.92 L Hgb 8.9 L Hct 28.0 L MCV RDW 22.8 H Plt Count 42 L Lymph % (Auto) Lymph # Seg Neutrophils % Seg Neuts % (Manual) 84.0 H Lymphocytes % (Manual) 5.0 L Monocytes % (Manual) Eosinophils % (Manual) Nucleated RBC % Seg Neutrophils # Man 7.8 H Lymphocytes # (Manual) 0.5 L POC ABG pH ABG pH POC ABG pCO2 POC ABG pO2 ABG pO2 ABG HCO3 ABG Base Excess ABG Hemoglobin Oxyhemoglobin Sodium Potassium 5.2 H Chloride 114.0 H Carbon Dioxide 18 L BUN 22 H Creatinine 1.7 H Glucose 109 H POC Glucose Lactic Acid Calcium 8.0 L TIBC Ferritin AST ALT Alkaline Phosphatase Total Creatine Kinase 194 H CK-MB (CK-2) CK-MB (CK-2) Rel Index Troponin T Total Protein Albumin Urine WBC (Auto) Vancomycin Trough 03/16/19 03/16/19 03/16/19 05:51 12:19 17:42 WBC RBC Hgb Hct MCV RDW Plt Count Lymph % (Auto) Lymph # Seg Neutrophils % Seg Neuts % (Manual) Lymphocytes % (Manual) Monocytes % (Manual) Eosinophils % (Manual) Nucleated RBC % Seg Neutrophils # Man Lymphocytes # (Manual) POC ABG pH ABG pH POC ABG pCO2 POC ABG pO2 ABG pO2 ABG HCO3 ABG Base Excess ABG Hemoglobin Oxyhemoglobin Sodium Potassium Chloride Carbon Dioxide BUN Creatinine Glucose POC Glucose 123 H 134 H 130 H Lactic Acid Calcium TIBC Ferritin AST ALT Alkaline Phosphatase Total Creatine Kinase CK-MB (CK-2) CK-MB (CK-2) Rel Index Troponin T Total Protein Albumin Urine WBC (Auto) Vancomycin Trough 03/17/19 03/17/19 03/17/19 00:46 04:45 04:45 WBC RBC 2.42 L Hgb 7.5 L Hct 23.4 L MCV RDW 22.2 H Plt Count 37 L Lymph % (Auto) 6.2 L Lymph # 0.5 L Seg Neutrophils % 84.0 H Seg Neuts % (Manual) Lymphocytes % (Manual) Monocytes % (Manual) Eosinophils % (Manual) Nucleated RBC % Seg Neutrophils # Man Lymphocytes # (Manual) POC ABG pH ABG pH POC ABG pCO2 POC ABG pO2 ABG pO2 ABG HCO3 ABG Base Excess ABG Hemoglobin Oxyhemoglobin Sodium Potassium Chloride 115.4 H Carbon Dioxide 16 L BUN 27 H Creatinine 1.8 H Glucose 109 H POC Glucose 115 H Lactic Acid Calcium 7.9 L TIBC Ferritin AST ALT Alkaline Phosphatase Total Creatine Kinase CK-MB (CK-2) CK-MB (CK-2) Rel Index Troponin T Total Protein Albumin Urine WBC (Auto) Vancomycin Trough 03/17/19 03/17/19 03/17/19 05:00 06:05 11:15 WBC RBC Hgb Hct MCV RDW Plt Count Lymph % (Auto) Lymph # Seg Neutrophils % Seg Neuts % (Manual) Lymphocytes % (Manual) Monocytes % (Manual) Eosinophils % (Manual) Nucleated RBC % Seg Neutrophils # Man Lymphocytes # (Manual) POC ABG pH ABG pH 7.238 L POC ABG pCO2 POC ABG pO2 ABG pO2 114.7 H ABG HCO3 17.9 L ABG Base Excess -8.8 L ABG Hemoglobin 7.3 L Oxyhemoglobin Sodium Potassium Chloride Carbon Dioxide BUN Creatinine Glucose POC Glucose 124 H Lactic Acid Calcium TIBC 127 L Ferritin AST ALT Alkaline Phosphatase Total Creatine Kinase CK-MB (CK-2) CK-MB (CK-2) Rel Index Troponin T Total Protein Albumin Urine WBC (Auto) Vancomycin Trough 03/17/19 03/17/19 03/17/19 11:15 12:06 18:27 WBC RBC Hgb Hct MCV RDW Plt Count Lymph % (Auto) Lymph # Seg Neutrophils % Seg Neuts % (Manual) Lymphocytes % (Manual) Monocytes % (Manual) Eosinophils % (Manual) Nucleated RBC % Seg Neutrophils # Man Lymphocytes # (Manual) POC ABG pH ABG pH POC ABG pCO2 POC ABG pO2 ABG pO2 ABG HCO3 ABG Base Excess ABG Hemoglobin Oxyhemoglobin Sodium Potassium Chloride Carbon Dioxide BUN Creatinine Glucose POC Glucose 133 H 158 H Lactic Acid Calcium TIBC Ferritin 512.4 H AST ALT Alkaline Phosphatase Total Creatine Kinase CK-MB (CK-2) CK-MB (CK-2) Rel Index Troponin T Total Protein Albumin Urine WBC (Auto) Vancomycin Trough 03/17/19 03/18/19 03/18/19 23:30 04:00 05:45 WBC RBC 2.31 L Hgb 7.0 L Hct 22.0 L MCV RDW 22.2 H Plt Count 45 L Lymph % (Auto) Lymph # Seg Neutrophils % Seg Neuts % (Manual) 82.0 H Lymphocytes % (Manual) 12.0 L Monocytes % (Manual) Eosinophils % (Manual) 5.0 H Nucleated RBC % 1.0 H Seg Neutrophils # Man Lymphocytes # (Manual) 0.8 L POC ABG pH ABG pH POC ABG pCO2 POC ABG pO2 ABG pO2 113.7 H ABG HCO3 ABG Base Excess -3.0 L ABG Hemoglobin 7.0 L Oxyhemoglobin Sodium Potassium Chloride Carbon Dioxide BUN Creatinine Glucose POC Glucose 143 H Lactic Acid Calcium TIBC Ferritin AST ALT Alkaline Phosphatase Total Creatine Kinase CK-MB (CK-2) CK-MB (CK-2) Rel Index Troponin T Total Protein Albumin Urine WBC (Auto) Vancomycin Trough 03/18/19 03/18/19 03/18/19 05:48 05:50 14:01 WBC RBC Hgb Hct MCV RDW Plt Count Lymph % (Auto) Lymph # Seg Neutrophils % Seg Neuts % (Manual) Lymphocytes % (Manual) Monocytes % (Manual) Eosinophils % (Manual) Nucleated RBC % Seg Neutrophils # Man Lymphocytes # (Manual) POC ABG pH 7.299 L ABG pH POC ABG pCO2 48.7 H POC ABG pO2 ABG pO2 ABG HCO3 ABG Base Excess ABG Hemoglobin Oxyhemoglobin Sodium Potassium Chloride 109.9 H Carbon Dioxide BUN 28 H Creatinine 1.5 H Glucose 128 H POC Glucose 118 H Lactic Acid Calcium 7.6 L TIBC Ferritin AST ALT Alkaline Phosphatase Total Creatine Kinase CK-MB (CK-2) CK-MB (CK-2) Rel Index Troponin T Total Protein Albumin Urine WBC (Auto) Vancomycin Trough 03/18/19 03/19/19 03/19/19 23:53 04:43 06:02 WBC RBC Hgb Hct MCV RDW Plt Count Lymph % (Auto) Lymph # Seg Neutrophils % Seg Neuts % (Manual) Lymphocytes % (Manual) Monocytes % (Manual) Eosinophils % (Manual) Nucleated RBC % Seg Neutrophils # Man Lymphocytes # (Manual) POC ABG pH ABG pH 7.332 L POC ABG pCO2 POC ABG pO2 ABG pO2 116.2 H ABG HCO3 ABG Base Excess -3.3 L ABG Hemoglobin 7.3 L Oxyhemoglobin 94.9 L Sodium Potassium Chloride Carbon Dioxide BUN Creatinine Glucose POC Glucose 130 H 122 H Lactic Acid Calcium TIBC Ferritin AST ALT Alkaline Phosphatase Total Creatine Kinase CK-MB (CK-2) CK-MB (CK-2) Rel Index Troponin T Total Protein Albumin Urine WBC (Auto) Vancomycin Trough 03/19/19 03/19/19 03/19/19 12:16 15:33 23:44 WBC RBC Hgb Hct MCV RDW Plt Count Lymph % (Auto) Lymph # Seg Neutrophils % Seg Neuts % (Manual) Lymphocytes % (Manual) Monocytes % (Manual) Eosinophils % (Manual) Nucleated RBC % Seg Neutrophils # Man Lymphocytes # (Manual) POC ABG pH 7.316 L ABG pH POC ABG pCO2 45.7 H POC ABG pO2 ABG pO2 ABG HCO3 ABG Base Excess ABG Hemoglobin Oxyhemoglobin Sodium Potassium Chloride Carbon Dioxide BUN Creatinine Glucose POC Glucose 132 H 106 H Lactic Acid Calcium TIBC Ferritin AST ALT Alkaline Phosphatase Total Creatine Kinase CK-MB (CK-2) CK-MB (CK-2) Rel Index Troponin T Total Protein Albumin Urine WBC (Auto) Vancomycin Trough 03/20/19 03/20/19 03/20/19 01:00 EST 04:27 12:06 WBC RBC Hgb Hct MCV RDW Plt Count Lymph % (Auto) Lymph # Seg Neutrophils % Seg Neuts % (Manual) Lymphocytes % (Manual) Monocytes % (Manual) Eosinophils % (Manual) Nucleated RBC % Seg Neutrophils # Man Lymphocytes # (Manual) POC ABG pH ABG pH POC ABG pCO2 POC ABG pO2 ABG pO2 121.6 H ABG HCO3 ABG Base Excess ABG Hemoglobin 7.1 L Oxyhemoglobin Sodium Potassium 3.4 L Chloride 111.7 H Carbon Dioxide BUN 29 H Creatinine Glucose POC Glucose 134 H Lactic Acid Calcium 8.0 L TIBC Ferritin AST ALT Alkaline Phosphatase Total Creatine Kinase CK-MB (CK-2) CK-MB (CK-2) Rel Index Troponin T Total Protein Albumin Urine WBC (Auto) Vancomycin Trough 03/20/19 03/20/19 03/21/19 18:09 23:36 05:42 WBC RBC Hgb Hct MCV RDW Plt Count Lymph % (Auto) Lymph # Seg Neutrophils % Seg Neuts % (Manual) Lymphocytes % (Manual) Monocytes % (Manual) Eosinophils % (Manual) Nucleated RBC % Seg Neutrophils # Man Lymphocytes # (Manual) POC ABG pH ABG pH POC ABG pCO2 POC ABG pO2 ABG pO2 ABG HCO3 ABG Base Excess ABG Hemoglobin Oxyhemoglobin Sodium Potassium Chloride Carbon Dioxide BUN Creatinine Glucose POC Glucose 133 H 114 H 116 H Lactic Acid Calcium TIBC Ferritin AST ALT Alkaline Phosphatase Total Creatine Kinase CK-MB (CK-2) CK-MB (CK-2) Rel Index Troponin T Total Protein Albumin Urine WBC (Auto) Vancomycin Trough 03/21/19 03/21/19 03/21/19 08:12 14:09 17:51 WBC 3.9 L RBC 2.25 L Hgb 7.1 L Hct 21.6 L MCV RDW 21.6 H Plt Count 105 L Lymph % (Auto) Lymph # Seg Neutrophils % Seg Neuts % (Manual) Lymphocytes % (Manual) 13.0 L Monocytes % (Manual) 13.0 H Eosinophils % (Manual) Nucleated RBC % Seg Neutrophils # Man Lymphocytes # (Manual) 0.5 L POC ABG pH ABG pH POC ABG pCO2 POC ABG pO2 120 H ABG pO2 ABG HCO3 ABG Base Excess ABG Hemoglobin Oxyhemoglobin Sodium Potassium Chloride Carbon Dioxide BUN Creatinine Glucose POC Glucose 145 H Lactic Acid Calcium TIBC Ferritin AST ALT Alkaline Phosphatase Total Creatine Kinase CK-MB (CK-2) CK-MB (CK-2) Rel Index Troponin T Total Protein Albumin Urine WBC (Auto) Vancomycin Trough 03/22/19 03/22/19 03/22/19 05:36 11:10 11:39 WBC RBC Hgb Hct MCV RDW Plt Count Lymph % (Auto) Lymph # Seg Neutrophils % Seg Neuts % (Manual) Lymphocytes % (Manual) Monocytes % (Manual) Eosinophils % (Manual) Nucleated RBC % Seg Neutrophils # Man Lymphocytes # (Manual) POC ABG pH ABG pH POC ABG pCO2 POC ABG pO2 ABG pO2 ABG HCO3 ABG Base Excess ABG Hemoglobin Oxyhemoglobin Sodium 149 H Potassium Chloride 115.6 H Carbon Dioxide BUN 20 H Creatinine Glucose 109 H POC Glucose 106 H 124 H Lactic Acid Calcium TIBC Ferritin AST ALT Alkaline Phosphatase Total Creatine Kinase CK-MB (CK-2) CK-MB (CK-2) Rel Index Troponin T Total Protein Albumin Urine WBC (Auto) Vancomycin Trough 03/22/19 03/22/19 03/22/19 12:04 18:36 Unknown WBC 4.2 L RBC 2.45 L Hgb 7.6 L Hct 23.9 L MCV 98 H RDW 22.2 H Plt Count Lymph % (Auto) Lymph # Seg Neutrophils % Seg Neuts % (Manual) Lymphocytes % (Manual) Monocytes % (Manual) Eosinophils % (Manual) Nucleated RBC % Seg Neutrophils # Man Lymphocytes # (Manual) POC ABG pH 7.285 L ABG pH POC ABG pCO2 55.4 H POC ABG pO2 ABG pO2 ABG HCO3 ABG Base Excess ABG Hemoglobin Oxyhemoglobin Sodium Potassium Chloride Carbon Dioxide BUN Creatinine Glucose POC Glucose 120 H Lactic Acid Calcium TIBC Ferritin AST ALT Alkaline Phosphatase Total Creatine Kinase CK-MB (CK-2) CK-MB (CK-2) Rel Index Troponin T Total Protein Albumin Urine WBC (Auto) Vancomycin Trough 03/23/19 03/23/19 03/23/19 04:37 05:12 05:30 WBC 4.2 L RBC 2.22 L Hgb 7.0 L Hct 21.4 L MCV RDW 21.5 H Plt Count Lymph % (Auto) Lymph # Seg Neutrophils % Seg Neuts % (Manual) Lymphocytes % (Manual) Monocytes % (Manual) Eosinophils % (Manual) Nucleated RBC % Seg Neutrophils # Man Lymphocytes # (Manual) POC ABG pH 7.500 H ABG pH POC ABG pCO2 POC ABG pO2 60 L ABG pO2 ABG HCO3 ABG Base Excess ABG Hemoglobin Oxyhemoglobin Sodium Potassium Chloride Carbon Dioxide BUN Creatinine Glucose POC Glucose 106 H Lactic Acid Calcium TIBC Ferritin AST ALT Alkaline Phosphatase Total Creatine Kinase CK-MB (CK-2) CK-MB (CK-2) Rel Index Troponin T Total Protein Albumin Urine WBC (Auto) Vancomycin Trough 03/23/19 05:30 WBC RBC Hgb Hct MCV RDW Plt Count Lymph % (Auto) Lymph # Seg Neutrophils % Seg Neuts % (Manual) Lymphocytes % (Manual) Monocytes % (Manual) Eosinophils % (Manual) Nucleated RBC % Seg Neutrophils # Man Lymphocytes # (Manual) POC ABG pH ABG pH POC ABG pCO2 POC ABG pO2 ABG pO2 ABG HCO3 ABG Base Excess ABG Hemoglobin Oxyhemoglobin Sodium 149 H Potassium Chloride 114.7 H Carbon Dioxide BUN 19 H Creatinine Glucose POC Glucose Lactic Acid Calcium 8.3 L TIBC Ferritin AST ALT Alkaline Phosphatase Total Creatine Kinase CK-MB (CK-2) CK-MB (CK-2) Rel Index Troponin T Total Protein Albumin Urine WBC (Auto) Vancomycin Trough Allied health notes reviewed: nursing
--- NOTE | 2019-03-23 13:17 | Progress Note ---
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 ID consult appreciated KERRI is due to ATN and vasomotor nephropathy -monitor cr level, stable and improved VRE UTI, septic shock, sepsis POA abx per ID , off pressors since 03/17 thrombocytopenia likely 2/2 sepsis, stable Acute Metabolic encephalopathy with agitation - Probably due to the acute infection - head CT scan neg x 2, Acute on chronic Pancytopenia - continue to monitor levels - Oncology consulted Hypernatremia - probably 2/2 dehydration - improved on IV D5W - monitor BMP closely Hyperkalemia - s/p kayexalate, resolved Hypoglycemia -On hypoglycemic protocol H/o CLD -Continue lactulose and rifaximin Nutrition Continue tube feeding DVT prophylaxis - On SCDs due to thrombocytopenia Disposition: Prognosis is guarded/poor History Interval history: Patient was seen and examined. Follow-up on current diagnosis of AMS. No overnight events reported to me. Patient denies any chest pain, shortness breath, nausea/vomiting or severe headaches. Imaging, nursing note, chart, labs and old chart reviewed. Discussed with patient. Hospitalist Physical - Physical exam Narrative exam: Gen: critically ill, awake, eyes open, intubated not sedated on PS HEENT: NCAT, EOMI, PERRL, OP with ETT and NGT Neck: supple, no adenopathy, no thyromegaly, no JVD CVS/Heart: RRR, normal S1S2, pulses present bilaterally Chest/Lungs: Symmetrical chest expansion, good air entry bilaterally GI/Abdomen: soft, NTND, good bowel sounds, no guarding or rebound /Bladder: no suprapubic tenderness, no CVA or paraspinal tenderness Extermity/Skin: right neck IJ TLC MSK: sFROM x 4 Neuro: CN 2-12 grossly intact, doesn't follow commands Psych: calm - Constitutional Vitals: Temp Pulse Resp BP Pulse Ox 99.9 F H 93 H 17 139/73 100 03/23/19 12:00 03/23/19 12:00 03/23/19 12:00 03/23/19 12:00 03/23/19 12:00 General appearance: Present: no acute distress, other (mildly agitated) Results - Labs CBC & Chem 7: 03/23/19 05:30 03/23/19 05:30 Labs: Laboratory Last Values WBC 4.2 K/mm3 (4.5-11.0) L 03/23/19 05:30 RBC 2.22 M/mm3 (3.65-5.03) L 03/23/19 05:30 Hgb 7.0 gm/dl (10.1-14.3) L 03/23/19 05:30 Hct 21.4 % (30.3-42.9) L 03/23/19 05:30 MCV 97 fl (79-97) 03/23/19 05:30 MCH 32 pg (28-32) 03/23/19 05:30 MCHC 33 % (30-34) 03/23/19 05:30 RDW 21.5 % (13.2-15.2) H 03/23/19 05:30 Plt Count 162 K/mm3 (140-440) 03/23/19 05:30 Lymph % (Auto) 6.2 % (13.4-35.0) L 03/17/19 04:45 Sac % (Auto) Early Childhood Worker 03/21/19 08:12 Eos % (Auto) 3.2 % (0.0-4.3) 03/17/19 04:45 Baso % (Auto) 0.2 % (0.0-1.8) 03/17/19 04:45 Lymph # 0.5 K/mm3 (1.2-5.4) L 03/17/19 04:45 Sac # 0.6 K/mm3 (0.0-0.8) 03/17/19 04:45 Eos # 0.3 K/mm3 (0.0-0.4) 03/17/19 04:45 Baso # 0.0 K/mm3 (0.0-0.1) 03/17/19 04:45 Add Manual Diff Complete 03/21/19 08:12 Total Counted 100 03/21/19 08:12 Seg Neutrophils % 84.0 % (40.0-70.0) H 03/17/19 04:45 Seg Neuts % (Manual) 67.0 % (40.0-70.0) 03/21/19 08:12 Band Neutrophils % 2.0 % 03/21/19 08:12 Lymphocytes % (Manual) 13.0 % (13.4-35.0) L 03/21/19 08:12 Reactive Lymphs % (Man) 1.0 % 03/21/19 08:12 Monocytes % (Manual) 13.0 % (0.0-7.3) H 03/21/19 08:12 Eosinophils % (Manual) 3.0 % (0.0-4.3) 03/21/19 08:12 Basophils % (Manual) 0 % (0.0-1.8) 03/21/19 08:12 Metamyelocytes % 1.0 % 03/21/19 08:12 Myelocytes % 0 % 03/21/19 08:12 Promyelocytes % 0 % 03/21/19 08:12 Blast Cells % 0 % 03/21/19 08:12 Nucleated RBC % Not Reportable 03/21/19 08:12 Seg Neutrophils # 7.2 K/mm3 (1.8-7.7) 03/17/19 04:45 Seg Neutrophils # Man 2.6 K/mm3 (1.8-7.7) 03/21/19 08:12 Band Neutrophils # 0.1 K/mm3 03/21/19 08:12 Lymphocytes # (Manual) 0.5 K/mm3 (1.2-5.4) L 03/21/19 08:12 Abs React Lymphs (Man) 0.0 K/mm3 03/21/19 08:12 Monocytes # (Manual) 0.5 K/mm3 (0.0-0.8) 03/21/19 08:12 Eosinophils # (Manual) 0.1 K/mm3 (0.0-0.4) 03/21/19 08:12 Basophils # (Manual) 0.0 K/mm3 (0.0-0.1) 03/21/19 08:12 Metamyelocytes # 0.0 K/mm3 03/21/19 08:12 Myelocytes # 0.0 K/mm3 03/21/19 08:12 Promyelocytes # 0.0 K/mm3 03/21/19 08:12 Blast Cells # 0.0 K/mm3 03/21/19 08:12 Pathologist Review 03/18/19 05:45 WBC Morphology Not Reportable 03/21/19 08:12 Hypersegmented Neuts Not Reportable 03/21/19 08:12 Hyposegmented Neuts Not Reportable 03/21/19 08:12 Hypogranular Neuts Not Reportable 03/21/19 08:12 Smudge Cells Not Reportable 03/21/19 08:12 Toxic Granulation Not Reportable 03/21/19 08:12 Toxic Vacuolation Not Reportable 03/21/19 08:12 Dohle Bodies Not Reportable 03/21/19 08:12 Pelger-Huet Anomaly Not Reportable 03/21/19 08:12 Sheila Rods Not Reportable 03/21/19 08:12 Platelet Estimate Consistent w auto 03/21/19 08:12 Clumped Platelets Not Reportable 03/21/19 08:12 Plt Clumps, EDTA Not Reportable 03/21/19 08:12 Large Platelets Not Reportable 03/21/19 08:12 Giant Platelets Not Reportable 03/21/19 08:12 Platelet Satelliting Not Reportable 03/21/19 08:12 Plt Morphology Comment Not Reportable 03/21/19 08:12 RBC Morphology Not Reportable 03/21/19 08:12 Dimorphic RBCs Not Reportable 03/21/19 08:12 Polychromasia Not Reportable 03/21/19 08:12 Hypochromasia Not Reportable 03/21/19 08:12 Poikilocytosis Not Reportable 03/21/19 08:12 Anisocytosis 1+ 03/21/19 08:12 Microcytosis Not Reportable 03/21/19 08:12 Macrocytosis 1+ 03/21/19 08:12 Spherocytes Not Reportable 03/21/19 08:12 Pappenheimer Bodies Not Reportable 03/21/19 08:12 Sickle Cells Not Reportable 03/21/19 08:12 Target Cells Few 03/21/19 08:12 Tear Drop Cells Not Reportable 03/21/19 08:12 Ovalocytes Not Reportable 03/21/19 08:12 Helmet Cells Not Reportable 03/21/19 08:12 [place] Bodies Not Reportable 03/21/19 08:12 [place] Rings Not Reportable 03/21/19 08:12 [place] Cells Not Reportable 03/21/19 08:12 Bite Cells Not Reportable 03/21/19 08:12 Crenated Cell Not Reportable 03/21/19 08:12 Elliptocytes Not Reportable 03/21/19 08:12 Acanthocytes (Spur) Not Reportable 03/21/19 08:12 Rouleaux Not Reportable 03/21/19 08:12 Hemoglobin C Crystals Not Reportable 03/21/19 08:12 Schistocytes Not Reportable 03/21/19 08:12 Malaria parasites Not Reportable 03/21/19 08:12 [place] Bodies Not Reportable 03/21/19 08:12 Hem Pathologist Commnt No 03/21/19 08:12 POC ABG pH 7.500 (7.35-7.45) H 03/23/19 04:37 ABG pH 7.380 pH Units (7.350-7.450) 03/20/19 04:27 POC ABG pCO2 39.6 (35-45) 03/23/19 04:37 ABG pCO2 40.2 mm Hg 03/20/19 04:27 POC ABG pO2 60 (80-105) L 03/23/19 04:37 ABG pO2 121.6 mm Hg (80.0-90.0) H 03/20/19 04:27 POC ABG HCO3 30.8 (22-26 mml/L) 03/23/19 04:37 ABG HCO3 23.3 mmol/L (20.0-26.0) 03/20/19 04:27 POC ABG Total CO2 32 (23-27mmol/L) 03/23/19 04:37 POC ABG O2 Sat 93 03/23/19 04:37 ABG O2 Saturation 98.3 % (95.0-99.0) 03/20/19 04:27 ABG O2 Content 9.9 (0.0-44) 03/20/19 04:27 POC ABG Base Excess 8 ((-2) - (+3)mmol/L) 03/23/19 04:37 ABG Base Excess -1.7 mmol/L (-2.0-3.0) 03/20/19 04:27 ABG Hemoglobin 7.1 gm/dl (12.0-16.0) L 03/20/19 04:27 ABG Carboxyhemoglobin 2.5 % (0.0-5.0) 03/20/19 04:27 ABG Methemoglobin 0.4 % (0.0-1.5) 03/20/19 04:27 Oxyhemoglobin 95.5 % (95.0-99.0) 03/20/19 04:27 FiO2 25 % 03/23/19 04:37 Sodium 149 mmol/L (137-145) H 03/23/19 05:30 Potassium 3.8 mmol/L (3.6-5.0) 03/23/19 05:30 Chloride 114.7 mmol/L (98-107) H 03/23/19 05:30 Carbon Dioxide 23 mmol/L (22-30) 03/23/19 05:30 Anion Gap 15 mmol/L 03/23/19 05:30 BUN 19 mg/dL (7-17) H 03/23/19 05:30 Creatinine 0.9 mg/dL (0.7-1.2) 03/23/19 05:30 Estimated GFR > 60 ml/min 03/23/19 05:30 BUN/Creatinine Ratio 21 % 03/23/19 05:30 Glucose 99 mg/dL (65-100) 03/23/19 05:30 POC Glucose 118 (70-105) H 03/23/19 11:50 Hemoglobin A1c 4.6 % (4-6) 03/10/19 13:16 Lactic Acid 0.80 mmol/L (0.7-2.0) 03/21/19 13:05 Calcium 8.3 mg/dL (8.4-10.2) L 03/23/19 05:30 Iron 81 ug/dL (37-170) 03/17/19 11:15 TIBC 127 mcg/dL (250-450) L 03/17/19 11:15 Ferritin 512.4 ng/mL (13.0-400.0) H 03/17/19 11:15 Total Bilirubin 0.50 mg/dL (0.1-1.2) 03/14/19 06:44 AST 144 units/L (5-40) H 03/14/19 06:44 ALT 90 units/L (7-56) H 03/14/19 06:44 Alkaline Phosphatase 226 units/L (35-129) H 03/14/19 06:44 Ammonia 54.0 umol/L (25-60) 03/11/19 07:29 Total Creatine Kinase 194 units/L (30-135) H 03/16/19 05:19 CK-MB (CK-2) 8.6 ng/mL (0.0-4.0) H 03/14/19 06:44 CK-MB (CK-2) Rel Index 7.1 (0-4) H 03/14/19 06:44 Troponin T 0.056 ng/mL (0.00-0.029) H D 03/14/19 06:44 Total Protein 6.7 g/dL (6.3-8.2) 03/14/19 06:44 Albumin 2.2 g/dL (3.9-5) L 03/14/19 06:44 Albumin/Globulin Ratio 0.5 % 03/14/19 06:44 Triglycerides 62 mg/dL (2-149) 03/14/19 06:44 Cholesterol 133 mg/dL (50-199) 03/14/19 06:44 LDL Cholesterol Direct 89 mg/dL (50-130) 03/14/19 06:44 HDL Cholesterol 43 mg/dL (40-59) 03/14/19 06:44 Cholesterol/HDL Ratio 3.09 % 03/14/19 06:44 Procalcitonin 1.19 ng/mL (<0.15) 03/21/19 13:05 Urine Color Straw (Yellow) 03/10/19 14:38 Urine Turbidity Clear (Clear) 03/10/19 14:38 Urine pH 7.0 (5.0-7.0) 03/10/19 14:38 Ur Specific [place] 1.009 (1.003-1.030) 03/10/19 14:38 Urine Protein <15 mg/dl mg/dL (Negative) 03/10/19 14:38 Urine Glucose (UA) Neg mg/dL (Negative) 03/10/19 14:38 Urine Ketones Neg mg/dL (Negative) 03/10/19 14:38 Urine Blood Neg (Negative) 03/10/19 14:38 Urine Nitrite Neg (Negative) 03/10/19 14:38 Urine Bilirubin Neg (Negative) 03/10/19 14:38 Urine Urobilinogen < 2.0 mg/dL (<2.0) 03/10/19 14:38 Ur Leukocyte Esterase Sm (Negative) 03/10/19 14:38 Urine WBC (Auto) 9.0 /HPF (0.0-6.0) H 03/10/19 14:38 Urine RBC (Auto) 2.0 /HPF (0.0-6.0) 03/10/19 14:38 U Epithel Cells (Auto) 1.0 /HPF (0-13.0) 03/10/19 14:38 Urine Bacteria (Auto) 2+ /HPF (Negative) 03/10/19 14:38 Urine Mucus Few /HPF 03/10/19 14:38 Vancomycin Trough 39.7 ug/mL (5.0-20.0) H 03/13/19 05:58 Random Vancomycin 27.6 ug/mL (0-40.0) 03/14/19 05:44 Active Medications - Current Medications Current Medications: Generic Name Dose Route Start Last Admin Trade Name Freq PRN Reason Stop Dose Admin Acetaminophen 650 mg 03/10/19 17:46 Tylenol PO Q4H PRN Pain MILD(1-3)/Fever >100.5/GUERRERO Albuterol 2.5 mg 03/11/19 03:52 Proventil IH TID PRN Wheezing Albuterol/Ipratropium 1 ampul 03/11/19 08:00 03/23/19 08:55 Duoneb *Not For Prn Use* IH 1 ampul Q6HRT CONNIE Administration Lipase/Protease/Amylase 1 each 03/14/19 13:25 Pancremartine Sahni 10,500 Unit FEEDTUBE PRN PRN For Clogged Feeding Tube Dextrose 50 ml 03/10/19 22:27 03/14/19 17:55 D50w (25gm) Syringe IV 50 ml Q30MIN PRN Administration Hypoglycemia Famotidine 20 mg 03/22/19 10:00 03/23/19 10:02 Pepcid PO 20 mg BID CONNIE Administration Fluticasone Propionate 50 mcg 03/11/19 10:00 03/23/19 10:02 Flonase NS 50 mcg QDAY CONNIE Administration Folic Acid 1 mg 03/11/19 10:00 03/23/19 10:02 Folvite PO 1 mg QDAY CONNIE Administration Haloperidol 0.5 mg 03/11/19 03:52 03/12/19 09:32 Haldol PO 0.5 mg Q6H PRN Administration Agitation Hydrophilic Ointment 1 applic 03/14/19 06:51 Vaseline Lip Therapy TP Q2HR PRN Dry Lips Propofol 1,000 mg in 100 mls @ 2.587 mls/hr 03/14/19 07:00 03/14/19 12:00 Diprivan 10 Mg/Ml IV 0 mcg/kg/min TITR CONNIE 0 mls/hr Titration Protocol 5 MCG/KG/MIN Fentanyl Citrate 2,000 mcg in 100 mls @ 4.312 mls/hr 03/14/19 11:00 03/18/19 21:00 Fentanyl Drip Premix IV 2 mcg/kg/hr TITR CONNIE 8.623 mls/hr Titration Protocol 1 MCG/KG/HR Vasopressin 20 unit/ Sodium 101 mls @ 9.09 mls/hr 03/14/19 14:00 03/18/19 12:30 Chloride IV Infused TITR CONNIE Titration Protocol 0.03 UNITS/MIN Dopamine HCl/Dextrose 800 mg in 250 mls @ 3.234 mls/hr 03/14/19 22:00 03/18/19 08:45 Intropin Drip 800 Mg/D5w 250 Ml IV 0 mcg/kg/min TITR CONNIE 0 mls/hr Titration Protocol 2 MCG/KG/MIN Sodium Chloride 500 mls @ 15 mls/hr 03/17/19 20:00 Nacl 0.9% 500 Ml IV PRN CONNIE Piperacillin Sod/Tazobactam Sod 4.5 gm in 100 mls @ 200 mls/hr 03/18/19 22:00 03/23/19 05:42 Zosyn/Ns 4.5gm/100ml IV 03/23/19 23:59 200 mls/hr Q8HR CONNIE Administration Protocol Insulin Human Lispro 0 unit 03/11/19 00:00 03/23/19 12:29 Humalog SUB-Q Not Given Q6HR CONNIE Protocol Morphine Sulfate 2 mg 03/10/19 17:56 03/22/19 02:47 Morphine IV 2 mg Q4H PRN Administration Pain, Moderate (4-6) Multi-Ingred Cream/Lotion/Oil/Oint 1 applic 03/14/19 06:51 03/20/19 10:22 Artificial Tears Ophth Oint OU 0.35 applic Q4HR PRN Administration Dry Eye(s) Ondansetron HCl 4 mg 03/10/19 17:46 03/11/19 05:04 Zofran IV 4 mg Q8H PRN Administration Nausea And Vomiting Rifaximin 550 mg 03/11/19 10:00 03/23/19 10:02 Xifaxan PO 550 mg BID CONNIE Administration Scopolamine 1 each 03/20/19 15:00 03/20/19 14:09 Transderm-Scop TD 1 each Q3D CONNIE Administration Simple Syrup 15 ml 03/14/19 13:25 Simple Syrup FEEDTUBE PRN PRN Hypoglycemia Simple Syrup 30 ml 03/14/19 13:25 Simple Syrup FEEDTUBE PRN PRN Hypoglycemia Sodium Bicarbonate 325 mg 03/14/19 13:25 Sodium Bicarbonate FEEDTUBE PRN PRN For Clogged Feeding Tube Sodium Chloride 10 ml 03/10/19 22:00 03/23/19 10:03 Sodium Chloride Flush Syringe 10 Ml IV 10 ml BID CONNIE Administration Sodium Chloride 10 ml 03/10/19 17:46 03/13/19 22:50 Sodium Chloride Flush Syringe 10 Ml IV 10 ml PRN PRN Administration LINE FLUSH Thiamine HCl 100 mg 03/11/19 10:00 03/23/19 10:02 Vitamin B-1 PO 100 mg QDAY CONNIE Administration Nutrition/Malnutrition Assess - Dietary Evaluation Nutrition/Malnutrition Findings: Nutrition Notes Start: 03/11/19 10:01 Freq: Status: Active Protocol: Document 03/17/19 11:08 AP (Rec: 03/17/19 11:33 AP [id number]) Co-Sign 03/17/19 11:08 LM Nutrition Notes Need for Assessment generated from: MD Order Initial or Follow up Reassessment Current Diagnosis COPD,Decubitus(Pressure Ulcer) ,Hypertension Other Pertinent Diagnosis AMS/nonverbal, Hep C, Anemia, Renal stones Current Diet Vital AF 1.2 at 55ml/hr Labs/Tests Reviewed Pertinent Medications Reviewed Height 5 ft 3 in Weight 96.5 kg [place] Body Weight (kg) 52.27 BMI 37.7 Weight Status Obese Subjective/Other Information F/U for TF rate/tolerance. Vital AF 1.2 running at 55ml/ hr. Percent of energy/protein needs met: 93%/94% Minimum of two criteria No #1 Nutrition Diagnosis Inadequate oral intake Diagnosis Progress(for reassessment Continues documentation) Is patient on ventilator? Yes Is Patient Ambulatory and/or Out of Bed No REE-([facility]-confined to bed) 1774.128 Calculation Used for Recommendations [facility] Additional Notes Protein: >105 g (>2g/kg IBW 52 .27 kg) Fluids: 1 ml/kcal or per MD Nutrition Intervention Change Diet Order: TF Nutrition Support: Vital AF 1.2 at 55ml/hr Flush 100ml q4h Kcal 1,584 Protein (gm) 99 Fluid (mL) 1,071 Goal #1 TF tolerance Goal #2 TF continue to meet at least 80% of estimated energy and protein needs. Anticipated Discharge Needs: unable to determine at this time Follow-Up By: 03/24/19 Additional Comments F/U for TF tolerance/rate.
[2019-03-23] MEDS: SCOPOLAMINE TRANSDERMAL PATCH 72 HR TD SCH (15:46)
--- NOTE | 2019-03-23 17:09 | Progress Note ---
Assessment and Plan Cultures: 03/10 UCx - VRE faecim 03/10 BCx - NGTD 03/14 BCX - NGTD A/P: 68 yo F PMHx hepatitis C, Dm2, many other comorbidities admitted with altered mental status, possible secondary to VRE UTI: 1. VRE UTI - Resolved 2. Hepatitis C 3. DM2 - tight glycemic control for wound healing 4. Hypoxic respiratory failure secondary to aspiration pneumonia - Continue pip- david for now Recs: - continue pip-david 4.5g q6h. given prolonged intubated and critical illness will extend to 10 days, but longer course not likely clinically useful. - Possible some element of central fevers. If fevers recur, would re-culture. Berta Stacy MD [facility] ([facility]) M: [phone] O: [phone] F: [phone] Subjective Date of service: 03/23/19 Principal diagnosis: Severe sepsis with shock; Ac. hypoxemic resp failure; cardiac arrest; PNA Interval history: remains intubated and sedated Objective - Exam Narrative Exam: Constitutional: intubated, sedated Head, Ears, Nose: Normocephalic, atraumatic. External ears, nose normal Eyes: Conjunctivae/corneas clear. No icterus. No ptosis. Neck: Supple, no meningeal signs Oral: dentition fair, no thrush Cardiovascular: S1, S2 normal. Respiratory: Good air entry, clear to auscultation bilaterally GI: Soft, non-tender; bowel sounds normal. No peritoneal signs. Musculoskeletal: No pedal edema, no cyanosis. Skin: No rash or abscess Hem/Lymphatic: No palpable cervical or supraclavicular nodes. No lymphangitis Psych: Sedated Neurological: Intubated, sedated - Constitutional Vitals: Vital Signs Temp Pulse Resp BP Pulse Ox 98.4 F 85 12 121/58 100 03/23/19 16:00 03/23/19 17:00 03/23/19 17:00 03/23/19 17:00 03/23/19 17:00 Temperature -Last 24 Hours Temperature 98.4 F Temperature 99.9 F Temperature 100.7 F Temperature 100.7 F Temperature 99.7 F Temperature 96.2 F Temperature 95.7 F - Labs CBC & Chem 7: 03/23/19 05:30 03/23/19 05:30 Labs: Abnormal lab results 03/22/19 03/23/19 03/23/19 Range/Units 18:36 04:37 05:12 WBC (4.5-11.0) K/mm3 RBC (3.65-5.03) M/mm3 Hgb (10.1-14.3) gm/dl Hct (30.3-42.9) % RDW (13.2-15.2) % POC ABG pH 7.500 H (7.35-7.45) POC ABG pO2 60 L (80-105) Sodium (137-145) mmol/L Chloride (98-107) mmol/L BUN (7-17) mg/dL POC Glucose 120 H 106 H (70-105) Calcium (8.4-10.2) mg/dL 03/23/19 03/23/19 03/23/19 Range/Units 05:30 05:30 11:50 WBC 4.2 L (4.5-11.0) K/mm3 RBC 2.22 L (3.65-5.03) M/mm3 Hgb 7.0 L (10.1-14.3) gm/dl Hct 21.4 L (30.3-42.9) % RDW 21.5 H (13.2-15.2) % POC ABG pH (7.35-7.45) POC ABG pO2 (80-105) Sodium 149 H (137-145) mmol/L Chloride 114.7 H (98-107) mmol/L BUN 19 H (7-17) mg/dL POC Glucose 118 H (70-105) Calcium 8.3 L (8.4-10.2) mg/dL
[2019-03-24] MEDS: INSULIN LISPRO 100 UNIT/ML SUB-Q SCH ×4 (00:39→22:18)
--- NOTE | 2019-03-24 02:35 | XRay Report ---
CHEST 1 VIEW 03/24/2019 2:10 AM INDICATION / CLINICAL INFORMATION: follow up for pna. COMPARISON: 03/21/19 FINDINGS: SUPPORT DEVICES: Endotracheal and feeding tubes are unchanged. HEART / MEDIASTINUM: Stable. LUNGS / PLEURA: Bilateral pulmonary opacities and small right effusion are unchanged. No pneumothorax . ADDITIONAL FINDINGS: No significant additional findings. IMPRESSION: 1. No significant change. Signer Name: Giovany John MD Signed: 03/24/2019 2:30 AM Workstation Name: [id number]
[2019-03-24] MEDS: IPRATROPIUM/ALBUTEROL SULFATE 3 ML AMPUL.NEB IH SCH ×4 (02:52→21:19)
[2019-03-24 05:01] LABS: ABG Base Excess -0.3 mmol/L (-2.0-3.0); ABG HCO3 24.8 mmol/L (20.0-26.0); ABG Methemoglobin 0.4 % (0.0-1.5); ABG Oxygen Saturation 97.7 % (95.0-99.0); ABG PH 7.379 pH Units (7.350-7.450); ABG PO2 104.6 mm Hg (80.0-90.0)
[2019-03-24 05:09] LABS: Hematocrit 24.4 % (30.3-42.9); Hemoglobin 7.9 gm/dl (10.1-14.3); Mean Corpuscular HGB Conc 32 % (30-34); Mean Corpuscular Volume 99 fl (79-97); Platelet Count 182 K/mm3 (140-440); Red Blood Count 2.46 M/mm3 (3.65-5.03)
[2019-03-24 05:18] LABS: Red Cell Distribution Width 23.5 % (13.2-15.2)
[2019-03-24 05:35] LABS: BUN/Creatinine Ratio 23; Blood Urea Nitrogen 18 mg/dL (7-17); Calcium 8.3 mg/dL (8.4-10.2); Hemolysis Index 9
--- NOTE | 2019-03-24 08:13 | Hem/Onc Progress Note ---
Assessment and Plan 1. h/o Leukopenia and the patient has a history of liver disease and alcohol usage. These may have a role. Thrombocytopenia may have a similar reason. Deficiency investigations. In January, B12 was 1400, folate 13. 2. Encephalopathy, being treated for sepsis. 3. History of electrolyte imbalance. 4. History of hypertension. 5. History of chronic obstructive pulmonary disease. 6. AST, ALT abnormality. 7. The patient was placed on reverse isolation. I will follow the patient during inpatient stay. b12 - folate normal - will follow h/o plt low - may be sec to infection/meds/antibiotics - pt was on vanco - zosyn - daptomycin ID following pt b12- folate - iron ferritin WNL platelets better - lovenox for DVT prevention is an option - Patient Problems (1) Leukopenia Current Visit: Yes Status: Acute Qualifiers: Leukopenia type: unspecified Qualified Code(s): D72.819 - Decreased white blood cell count, unspecified Subjective Date of service: 03/24/19 Principal diagnosis: anemia Interval history: still on vent Objective - Exam Narrative Exam: Pain - on vent General appearance - intubated Performance status - complete dependence Eyes - no icterus, ENT - no bleeding LNs cervical not palpable Neck - no LN Respiratory Normal Breath sounds - CTA anteriorly CVS S1 S2 + Extremities edema+ General GI Soft Rectal deferred female - deferred Skin warm Musculoskeletal on vent Neurologically intubated - Constitutional Vitals: Last Vital Signs Temp 95.9 F L 03/24/19 07:48 Pulse 73 03/24/19 06:30 Resp 18 03/24/19 06:30 BP 124/76 03/24/19 06:30 Pulse Ox 98 03/24/19 06:30 - Labs Lab Results: Laboratory Results - last 24 hr 03/23/19 03/23/19 03/23/19 11:50 18:11 23:23 WBC RBC Hgb Hct MCV MCH MCHC RDW Plt Count ABG pH ABG pCO2 ABG pO2 ABG HCO3 ABG O2 Saturation ABG O2 Content ABG Base Excess ABG Hemoglobin ABG Carboxyhemoglobin ABG Methemoglobin Oxyhemoglobin FiO2 Sodium Potassium Chloride Carbon Dioxide Anion Gap BUN Creatinine Estimated GFR BUN/Creatinine Ratio Glucose POC Glucose 118 H 107 H 112 H Calcium 03/24/19 03/24/19 03/24/19 04:36 04:42 04:42 WBC 4.0 L RBC 2.46 L Hgb 7.9 L Hct 24.4 L MCV 99 H MCH 32 MCHC 32 RDW 23.5 H Plt Count 182 ABG pH 7.379 ABG pCO2 43.0 ABG pO2 104.6 H ABG HCO3 24.8 ABG O2 Saturation 97.7 ABG O2 Content 9.7 ABG Base Excess -0.3 ABG Hemoglobin 7.1 L ABG Carboxyhemoglobin 2.4 ABG Methemoglobin 0.4 Oxyhemoglobin 95.0 FiO2 25 Sodium 149 H Potassium 3.8 Chloride 115.7 H Carbon Dioxide 23 Anion Gap 14 BUN 18 H Creatinine 0.8 Estimated GFR > 60 BUN/Creatinine Ratio 23 Glucose 128 H POC Glucose Calcium 8.3 L 03/24/19 06:03 WBC RBC Hgb Hct MCV MCH MCHC RDW Plt Count ABG pH ABG pCO2 ABG pO2 ABG HCO3 ABG O2 Saturation ABG O2 Content ABG Base Excess ABG Hemoglobin ABG Carboxyhemoglobin ABG Methemoglobin Oxyhemoglobin FiO2 Sodium Potassium Chloride Carbon Dioxide Anion Gap BUN Creatinine Estimated GFR BUN/Creatinine Ratio Glucose POC Glucose 136 H Calcium Medications & Allergies - Medications Allergies/Adverse Reactions: Allergies No Known Allergies Allergy (Verified 01/06/17 23:38) Per son Home Medications: Home Medications Medication Instructions Recorded Confirmed Last Taken Type Folic Acid [Folvite] 1 mg PO QDAY #30 tablet 08/12/18 03/10/19 03/09/19 Rx Haloperidol [Haldol] 0.5 mg PO Q6H PRN #30 tablet 08/12/18 03/10/19 03/10/19 Rx Lactulose [Cephulac] 20 gm PO Q12H #1 bottle 08/12/18 03/10/19 03/09/19 Rx Rifaximin [Xifaxan] 550 mg PO BID #60 tablet 08/12/18 03/10/19 03/09/19 Rx Thiamine [Vitamin B-1] 100 mg PO QDAY #30 tablet 08/12/18 03/10/19 03/09/19 Rx amLODIPine 5 mg PO QDAY #30 tablet 08/12/18 03/10/19 03/09/19 Rx chlordiazePOXIDE [Librium] 25 mg PO DAILY #3 capsule 08/12/18 03/10/19 03/09/19 Rx ALBUTEROL NEB's [Proventil] 2.5 mg IH TID PRN 02/06/19 03/10/19 03/09/19 History Acetaminophen [Tylenol] 650 mg PO Q6HR PRN 02/06/19 03/10/19 03/09/19 History Fluticasone [Flonase] 1 spray NS QDAY 02/06/19 03/10/19 03/09/19 History Ipratropium/Albuterol Sulfate 1 spray IH QID 02/06/19 03/10/19 03/09/19 History [Combivent Respimat] Melatonin [Melatonin 10MG CAP] 10 mg PO QHS 02/06/19 03/10/19 03/09/19 History Active Medications: Generic Name Dose Route Start Last Admin Trade Name Freq PRN Reason Stop Dose Admin Acetaminophen 650 mg 03/10/19 17:46 Tylenol PO Q4H PRN Pain MILD(1-3)/Fever >100.5/GUERRERO Albuterol 2.5 mg 03/11/19 03:52 Proventil IH TID PRN Wheezing Albuterol/Ipratropium 1 ampul 03/11/19 08:00 03/24/19 02:52 Duoneb *Not For Prn Use* IH 1 ampul Q6HRT CONNIE Administration Lipase/Protease/Amylase 1 each 03/14/19 13:25 Pancremartine Sahni 10,500 Unit FEEDTUBE PRN PRN For Clogged Feeding Tube Dextrose 50 ml 03/10/19 22:27 03/14/19 17:55 D50w (25gm) Syringe IV 50 ml Q30MIN PRN Administration Hypoglycemia Famotidine 20 mg 03/22/19 10:00 03/23/19 21:44 Pepcid PO 20 mg BID CONNIE Administration Fluticasone Propionate 50 mcg 03/11/19 10:00 03/23/19 10:02 Flonase NS 50 mcg QDAY CONNIE Administration Folic Acid 1 mg 03/11/19 10:00 03/23/19 10:02 Folvite PO 1 mg QDAY CONNIE Administration Haloperidol 0.5 mg 03/11/19 03:52 03/12/19 09:32 Haldol PO 0.5 mg Q6H PRN Administration Agitation Hydrophilic Ointment 1 applic 03/14/19 06:51 Vaseline Lip Therapy TP Q2HR PRN Dry Lips Propofol 1,000 mg in 100 mls @ 2.587 mls/hr 03/14/19 07:00 03/14/19 12:00 Diprivan 10 Mg/Ml IV 0 mcg/kg/min TITR CONNIE 0 mls/hr Titration Protocol 5 MCG/KG/MIN Fentanyl Citrate 2,000 mcg in 100 mls @ 4.312 mls/hr 03/14/19 11:00 03/18/19 21:00 Fentanyl Drip Premix IV 2 mcg/kg/hr TITR CONNIE 8.623 mls/hr Titration Protocol 1 MCG/KG/HR Vasopressin 20 unit/ Sodium 101 mls @ 9.09 mls/hr 03/14/19 14:00 03/18/19 12:30 Chloride IV Infused TITR CONNIE Titration Protocol 0.03 UNITS/MIN Dopamine HCl/Dextrose 800 mg in 250 mls @ 3.234 mls/hr 03/14/19 22:00 03/18/19 08:45 Intropin Drip 800 Mg/D5w 250 Ml IV 0 mcg/kg/min TITR CONNIE 0 mls/hr Titration Protocol 2 MCG/KG/MIN Sodium Chloride 500 mls @ 15 mls/hr 03/17/19 20:00 Nacl 0.9% 500 Ml IV PRN [facility] Insulin Human Lispro 0 unit 03/11/19 00:00 03/24/19 06:39 Humalog SUB-Q Not Given Q6HR [facility] Protocol Morphine Sulfate 2 mg 03/10/19 17:56 03/22/19 02:47 Morphine IV 2 mg Q4H PRN Administration Pain, Moderate (4-6) Multi-Ingred Cream/Lotion/Oil/Oint 1 applic 03/14/19 06:51 03/20/19 10:22 Artificial Tears Ophth Oint OU 0.35 applic Q4HR PRN Administration Dry Eye(s) Ondansetron HCl 4 mg 03/10/19 17:46 03/11/19 05:04 Zofran IV 4 mg Q8H PRN Administration Nausea And Vomiting Rifaximin 550 mg 03/11/19 10:00 03/23/19 21:44 Xifaxan PO 550 mg BID CONNIE Administration Scopolamine 1 each 03/20/19 15:00 03/23/19 15:46 Transderm-Scop TD 1 each Q3D CONNIE Administration Simple Syrup 15 ml 03/14/19 13:25 Simple Syrup FEEDTUBE PRN PRN Hypoglycemia Simple Syrup 30 ml 03/14/19 13:25 Simple Syrup FEEDTUBE PRN PRN Hypoglycemia Sodium Bicarbonate 325 mg 03/14/19 13:25 Sodium Bicarbonate FEEDTUBE PRN PRN For Clogged Feeding Tube Sodium Chloride 10 ml 03/10/19 22:00 03/23/19 21:46 Sodium Chloride Flush Syringe 10 Ml IV 10 ml BID CONNIE Administration Sodium Chloride 10 ml 03/10/19 17:46 03/13/19 22:50 Sodium Chloride Flush Syringe 10 Ml IV 10 ml PRN PRN Administration LINE FLUSH Thiamine HCl 100 mg 03/11/19 10:00 03/23/19 10:02 Vitamin B-1 PO 100 mg QDAY CONNIE Administration
--- NOTE | 2019-03-24 09:00 | Progress Note ---
Assessment and Plan Severe sepsis with septic shock Cardiac arrest-asystole with ROSC Acute hypoxic respiratory failure on MVS Lactic acidosis- multifactorial ( resolved) Acute toxic- metabolic encephalopathy Aspiration pneumonia VRE UTI Hypernatremia Thrombocytopenia h/o Cirrhosis h/o Alcohol abuse disorder KERRI Hyperkalemia -VAP bundle addressed -Aspiration precautions, HOB>40 degrees - Lung protective strategies -Wean FIO2 for O2 sats>90% -CXR, ABG prn -CBC, BMP in am -Avoid nephrotoxins and adjust all medications for GFR and CrCL -Daily assessment for weaning readiness, SBTs -Continue tube feedings with glycemic control -Agitation management, Pain management -Antibiotics per ID -Continue contact isolation - Continue VTE prophylaxis -heparin -Stress ulcer prophylaxis - Accuchecks with glycemic control for SSI (While critically ill target blood glucose of 140-180 mg/dL; avoid hypoglycemia) - Continue mobility protocol for pressure ulcer prevention - Continue to monitor hemodynamics closely -Monitor electrolyte profile closely and replete as indicated -Chronic home medications, continue as clinically indicated CONDITION: CRITICAL PROGNOSIS: GUARDED CODE STATUS: FULL CODE The high probability of a clinically significant, sudden or life-threatening deterioration of the [respiratory, cardiovascular, neurology, hematology] system(s) required my full and direct attention, intervention and personal man agement. The aggregate critical care time was [35] minutes without overlap. Time includes spent on; [x] Data Review and interpretation [x] Patient assessment and monitoring of vital signs [x] Documentation [x] Medication orders and management Subjective Date of service: 03/24/19 Principal diagnosis: anemia Interval history: Follow up for severe sepsis with septic shock; acute hypoxemic respiratory failure on MVS; s/p cardiac arrest with ROSC; VRE UTI; aspiration pneumonia; Patient seen and examined. Vitals, labs, medications, chart and imaging reviewed. Events overnight were managed remotely.: no fevers, no vomiting; oral secretions are copious but gradually improving Remains critically ill on full ventilatory support Objective Vital Signs - 12hr 03/23/19 03/23/19 03/23/19 21:00 21:20 21:21 Temperature Pulse Rate 70 86 Pulse Rate [ 76 Anterior Bilateral] Pulse Rate [ 82 Anterior Throughout] Respiratory 18 Rate Respiratory 19 Rate [Anterior Bilateral] Respiratory 22 Rate [Anterior Throughout] Blood Pressure 123/77 123/77 O2 Sat by Pulse 100 100 Oximetry 03/23/19 03/23/19 03/23/19 21:30 22:00 22:30 Temperature Pulse Rate 72 73 82 Pulse Rate [ Anterior Bilateral] Pulse Rate [ Anterior Throughout] Respiratory 18 19 14 Rate Respiratory Rate [Anterior Bilateral] Respiratory Rate [Anterior Throughout] Blood Pressure 145/93 129/78 129/78 O2 Sat by Pulse 100 100 94 Oximetry 03/23/19 03/23/19 03/23/19 23:00 23:30 23:34 Temperature 97.1 F L Pulse Rate 66 66 Pulse Rate [ Anterior Bilateral] Pulse Rate [ Anterior Throughout] Respiratory 18 18 Rate Respiratory Rate [Anterior Bilateral] Respiratory Rate [Anterior Throughout] Blood Pressure 124/68 121/70 O2 Sat by Pulse 99 100 Oximetry 03/23/19 03/24/19 03/24/19 23:54 00:00 00:30 Temperature Pulse Rate 65 68 66 Pulse Rate [ Anterior Bilateral] Pulse Rate [ Anterior Throughout] Respiratory 17 18 Rate Respiratory Rate [Anterior Bilateral] Respiratory Rate [Anterior Throughout] Blood Pressure 125/71 125/71 124/74 O2 Sat by Pulse 100 99 99 Oximetry 03/24/19 03/24/19 03/24/19 00:42 01:00 01:30 Temperature Pulse Rate 71 67 64 Pulse Rate [ Anterior Bilateral] Pulse Rate [ Anterior Throughout] Respiratory 19 17 Rate Respiratory Rate [Anterior Bilateral] Respiratory Rate [Anterior Throughout] Blood Pressure 130/75 130/72 O2 Sat by Pulse 99 100 Oximetry 03/24/19 03/24/19 03/24/19 02:00 02:30 02:55 Temperature Pulse Rate 63 65 Pulse Rate [ 82 Anterior Bilateral] Pulse Rate [ 91 H Anterior Throughout] Respiratory 17 18 Rate Respiratory 22 Rate [Anterior Bilateral] Respiratory 24 Rate [Anterior Throughout] Blood Pressure 124/72 110/68 O2 Sat by Pulse 98 100 Oximetry 03/24/19 03/24/19 03/24/19 03:00 03:30 04:00 Temperature Pulse Rate 66 73 73 Pulse Rate [ Anterior Bilateral] Pulse Rate [ Anterior Throughout] Respiratory 10 L 16 14 Rate Respiratory Rate [Anterior Bilateral] Respiratory Rate [Anterior Throughout] Blood Pressure 117/75 120/70 125/71 O2 Sat by Pulse 100 99 100 Oximetry 03/24/19 03/24/19 03/24/19 04:26 04:30 05:00 Temperature 97.6 F Pulse Rate 71 68 Pulse Rate [ Anterior Bilateral] Pulse Rate [ Anterior Throughout] Respiratory 10 L 18 Rate Respiratory Rate [Anterior Bilateral] Respiratory Rate [Anterior Throughout] Blood Pressure 127/75 134/75 O2 Sat by Pulse 97 97 Oximetry 03/24/19 03/24/19 03/24/19 05:10 05:30 06:00 Temperature Pulse Rate 67 66 64 Pulse Rate [ Anterior Bilateral] Pulse Rate [ Anterior Throughout] Respiratory 18 18 Rate Respiratory Rate [Anterior Bilateral] Respiratory Rate [Anterior Throughout] Blood Pressure 134/75 127/75 124/76 O2 Sat by Pulse 100 96 94 Oximetry 03/24/19 03/24/19 03/24/19 06:30 07:00 07:30 Temperature Pulse Rate 73 73 69 Pulse Rate [ Anterior Bilateral] Pulse Rate [ Anterior Throughout] Respiratory 18 19 19 Rate Respiratory Rate [Anterior Bilateral] Respiratory Rate [Anterior Throughout] Blood Pressure 124/76 124/76 121/78 O2 Sat by Pulse 98 100 100 Oximetry 03/24/19 03/24/19 07:48 08:00 Temperature 95.9 F L Pulse Rate 70 Pulse Rate [ Anterior Bilateral] Pulse Rate [ Anterior Throughout] Respiratory 19 Rate Respiratory Rate [Anterior Bilateral] Respiratory Rate [Anterior Throughout] Blood Pressure 130/82 O2 Sat by Pulse 100 Oximetry Constitutional: appears uncomfortable, other (elderly looking obese AAF with mild respiratory distress on MVS ) Eyes: non-icteric ENT: oropharynx moist, other (ETT 23 cm JA) Neck: supple, no lymphadenopathy, no JVD, other (RIJ in neck) Effort: mildly labored Ascultation: Bilateral: diminished breath sounds, rales (scant in bases), rhonchi Percussion: Bilateral: not dull Cardiovascular: regular rate and rhythm, other (S1, S2, no murmurs, gallops or rubs rhythm strip shows accelerated junctional ) Gastrointestinal: normoactive bowel sounds, soft, non-tender, non-distended, other (No HSM) Integumentary: normal Extremities: no cyanosis, no edema, pulses normal, no ischemia or petechiae Neurologic: non-focal exam (grossly), pupils equal and round, other (awake, alert, tracks voice) Psychiatric: mood appropriate CBC and BMP: 03/29/19 05:00 03/29/19 05:00 ABG, PT/INR, D-dimer: ABG POC ABG pH 7.500 (7.35-7.45) H 03/23/19 04:37 ABG pH 7.379 pH Units (7.350-7.450) 03/24/19 04:36 POC ABG pCO2 39.6 (35-45) 03/23/19 04:37 ABG pCO2 43.0 mm Hg 03/24/19 04:36 POC ABG pO2 60 (80-105) L 03/23/19 04:37 ABG pO2 104.6 mm Hg (80.0-90.0) H 03/24/19 04:36 POC ABG HCO3 30.8 (22-26 mml/L) 03/23/19 04:37 POC ABG Total CO2 32 (23-27mmol/L) 03/23/19 04:37 POC ABG O2 Sat 93 03/23/19 04:37 ABG O2 Saturation 97.7 % (95.0-99.0) 03/24/19 04:36 Abnormal lab findings: Abnormal Labs 03/10/19 03/10/19 03/10/19 13:16 13:16 14:38 WBC 0.8 L* RBC 3.35 L Hgb Hct MCV RDW 22.1 H Plt Count 78 L Lymph % (Auto) Lymph # Seg Neutrophils % Seg Neuts % (Manual) Lymphocytes % (Manual) 49.0 H Monocytes % (Manual) Eosinophils % (Manual) Nucleated RBC % Seg Neutrophils # Man 0.3 L Lymphocytes # (Manual) 0.4 L POC ABG pH ABG pH POC ABG pCO2 POC ABG pO2 ABG pO2 ABG HCO3 ABG Base Excess ABG Hemoglobin Oxyhemoglobin Sodium 147 H Potassium 5.4 H Chloride 111.8 H Carbon Dioxide BUN Creatinine 0.6 L Glucose POC Glucose Lactic Acid Calcium TIBC Ferritin AST 128 H ALT 79 H Alkaline Phosphatase 174 H Total Creatine Kinase CK-MB (CK-2) CK-MB (CK-2) Rel Index Troponin T Total Protein Albumin 2.4 L Urine WBC (Auto) 9.0 H Vancomycin Trough 03/10/19 03/10/19 03/11/19 21:22 23:36 07:29 WBC RBC Hgb Hct MCV RDW Plt Count Lymph % (Auto) Lymph # Seg Neutrophils % Seg Neuts % (Manual) Lymphocytes % (Manual) Monocytes % (Manual) Eosinophils % (Manual) Nucleated RBC % Seg Neutrophils # Man Lymphocytes # (Manual) POC ABG pH ABG pH POC ABG pCO2 POC ABG pO2 ABG pO2 ABG HCO3 ABG Base Excess ABG Hemoglobin Oxyhemoglobin Sodium 148 H Potassium 5.6 H Chloride 122.3 H Carbon Dioxide 20 L BUN Creatinine 0.6 L Glucose POC Glucose 65 L 112 H Lactic Acid Calcium TIBC Ferritin AST 102 H ALT 65 H Alkaline Phosphatase 134 H Total Creatine Kinase CK-MB (CK-2) CK-MB (CK-2) Rel Index Troponin T Total Protein 6.1 L Albumin 1.8 L Urine WBC (Auto) Vancomycin Trough 03/11/19 03/11/19 03/11/19 11:25 15:28 18:00 WBC 1.2 L* RBC Hgb Hct MCV RDW 22.1 H Plt Count 53 L Lymph % (Auto) Lymph # Seg Neutrophils % Seg Neuts % (Manual) 78.6 H Lymphocytes % (Manual) 9.5 L Monocytes % (Manual) 9.5 H Eosinophils % (Manual) Nucleated RBC % Seg Neutrophils # Man 0.9 L Lymphocytes # (Manual) 0.1 L POC ABG pH ABG pH POC ABG pCO2 POC ABG pO2 ABG pO2 ABG HCO3 ABG Base Excess ABG Hemoglobin Oxyhemoglobin Sodium Potassium Chloride Carbon Dioxide BUN Creatinine Glucose POC Glucose 117 H 118 H Lactic Acid Calcium TIBC Ferritin AST ALT Alkaline Phosphatase Total Creatine Kinase CK-MB (CK-2) CK-MB (CK-2) Rel Index Troponin T Total Protein Albumin Urine WBC (Auto) Vancomycin Trough 03/12/19 03/12/19 03/12/19 00:19 05:45 08:55 WBC 2.4 L RBC 3.33 L Hgb Hct MCV RDW 22.8 H Plt Count 58 L Lymph % (Auto) Lymph # Seg Neutrophils % Seg Neuts % (Manual) 93.0 H Lymphocytes % (Manual) 4.0 L Monocytes % (Manual) Eosinophils % (Manual) Nucleated RBC % 7.0 H Seg Neutrophils # Man Lymphocytes # (Manual) 0.1 L POC ABG pH ABG pH POC ABG pCO2 POC ABG pO2 ABG pO2 ABG HCO3 ABG Base Excess ABG Hemoglobin Oxyhemoglobin Sodium Potassium Chloride Carbon Dioxide BUN Creatinine Glucose POC Glucose 124 H 116 H Lactic Acid Calcium TIBC Ferritin AST ALT Alkaline Phosphatase Total Creatine Kinase CK-MB (CK-2) CK-MB (CK-2) Rel Index Troponin T Total Protein Albumin Urine WBC (Auto) Vancomycin Trough 03/12/19 03/13/19 03/13/19 08:55 00:18 03:48 WBC 2.7 L RBC 3.06 L Hgb 9.4 L Hct 29.4 L MCV RDW 23.1 H Plt Count 62 L Lymph % (Auto) Lymph # Seg Neutrophils % Seg Neuts % (Manual) 76.0 H Lymphocytes % (Manual) Monocytes % (Manual) Eosinophils % (Manual) Nucleated RBC % 11.0 H Seg Neutrophils # Man Lymphocytes # (Manual) 0.5 L POC ABG pH ABG pH POC ABG pCO2 POC ABG pO2 ABG pO2 ABG HCO3 ABG Base Excess ABG Hemoglobin Oxyhemoglobin Sodium Potassium 5.6 H Chloride 114.2 H Carbon Dioxide 21 L BUN Creatinine Glucose POC Glucose 119 H Lactic Acid Calcium TIBC Ferritin AST ALT Alkaline Phosphatase Total Creatine Kinase CK-MB (CK-2) CK-MB (CK-2) Rel Index Troponin T Total Protein Albumin Urine WBC (Auto) Vancomycin Trough 03/13/19 03/13/19 03/13/19 03:48 05:52 05:58 WBC RBC Hgb Hct MCV RDW Plt Count Lymph % (Auto) Lymph # Seg Neutrophils % Seg Neuts % (Manual) Lymphocytes % (Manual) Monocytes % (Manual) Eosinophils % (Manual) Nucleated RBC % Seg Neutrophils # Man Lymphocytes # (Manual) POC ABG pH ABG pH POC ABG pCO2 POC ABG pO2 ABG pO2 ABG HCO3 ABG Base Excess ABG Hemoglobin Oxyhemoglobin Sodium Potassium Chloride 112.7 H Carbon Dioxide 21 L BUN Creatinine Glucose 103 H POC Glucose 114 H Lactic Acid Calcium TIBC Ferritin AST ALT Alkaline Phosphatase Total Creatine Kinase CK-MB (CK-2) CK-MB (CK-2) Rel Index Troponin T Total Protein Albumin Urine WBC (Auto) Vancomycin Trough 39.7 H 03/13/19 03/13/19 03/14/19 12:12 18:00 00:17 WBC RBC Hgb Hct MCV RDW Plt Count Lymph % (Auto) Lymph # Seg Neutrophils % Seg Neuts % (Manual) Lymphocytes % (Manual) Monocytes % (Manual) Eosinophils % (Manual) Nucleated RBC % Seg Neutrophils # Man Lymphocytes # (Manual) POC ABG pH ABG pH POC ABG pCO2 POC ABG pO2 ABG pO2 ABG HCO3 ABG Base Excess ABG Hemoglobin Oxyhemoglobin Sodium Potassium Chloride Carbon Dioxide BUN Creatinine Glucose POC Glucose 116 H 132 H 130 H Lactic Acid Calcium TIBC Ferritin AST ALT Alkaline Phosphatase Total Creatine Kinase CK-MB (CK-2) CK-MB (CK-2) Rel Index Troponin T Total Protein Albumin Urine WBC (Auto) Vancomycin Trough 03/14/19 03/14/19 03/14/19 05:24 06:44 06:44 WBC 2.6 L RBC 3.00 L Hgb 9.2 L Hct 28.3 L MCV RDW 22.5 H Plt Count 44 L Lymph % (Auto) Lymph # Seg Neutrophils % Seg Neuts % (Manual) 75.0 H Lymphocytes % (Manual) Monocytes % (Manual) Eosinophils % (Manual) 5.0 H Nucleated RBC % 19.0 H Seg Neutrophils # Man Lymphocytes # (Manual) 0.4 L POC ABG pH ABG pH POC ABG pCO2 POC ABG pO2 ABG pO2 ABG HCO3 ABG Base Excess ABG Hemoglobin Oxyhemoglobin Sodium Potassium Chloride 110.2 H Carbon Dioxide 21 L BUN Creatinine 1.3 H Glucose POC Glucose 110 H Lactic Acid Calcium TIBC Ferritin AST 144 H ALT 90 H Alkaline Phosphatase 226 H Total Creatine Kinase CK-MB (CK-2) 8.6 H CK-MB (CK-2) Rel Index 7.1 H Troponin T 0.056 H D Total Protein Albumin 2.2 L Urine WBC (Auto) Vancomycin Trough 03/14/19 03/14/19 03/14/19 09:05 11:54 12:15 WBC RBC Hgb Hct MCV RDW Plt Count Lymph % (Auto) Lymph # Seg Neutrophils % Seg Neuts % (Manual) Lymphocytes % (Manual) Monocytes % (Manual) Eosinophils % (Manual) Nucleated RBC % Seg Neutrophils # Man Lymphocytes # (Manual) POC ABG pH 7.283 L 7.458 H ABG pH POC ABG pCO2 54.9 H 32.7 L POC ABG pO2 76 L ABG pO2 ABG HCO3 ABG Base Excess ABG Hemoglobin Oxyhemoglobin Sodium Potassium Chloride Carbon Dioxide BUN Creatinine Glucose POC Glucose Lactic Acid 2.10 H* Calcium TIBC Ferritin AST ALT Alkaline Phosphatase Total Creatine Kinase CK-MB (CK-2) CK-MB (CK-2) Rel Index Troponin T Total Protein Albumin Urine WBC (Auto) Vancomycin Trough 03/14/19 03/14/19 03/14/19 12:43 13:35 15:35 WBC RBC Hgb Hct MCV RDW Plt Count Lymph % (Auto) Lymph # Seg Neutrophils % Seg Neuts % (Manual) Lymphocytes % (Manual) Monocytes % (Manual) Eosinophils % (Manual) Nucleated RBC % Seg Neutrophils # Man Lymphocytes # (Manual) POC ABG pH ABG pH POC ABG pCO2 POC ABG pO2 ABG pO2 ABG HCO3 ABG Base Excess ABG Hemoglobin Oxyhemoglobin Sodium Potassium Chloride Carbon Dioxide BUN Creatinine Glucose POC Glucose 68 L Lactic Acid 2.10 H* 3.50 H* Calcium TIBC Ferritin AST ALT Alkaline Phosphatase Total Creatine Kinase CK-MB (CK-2) CK-MB (CK-2) Rel Index Troponin T Total Protein Albumin Urine WBC (Auto) Vancomycin Trough 03/14/19 03/14/19 03/14/19 17:34 17:46 17:55 WBC RBC Hgb Hct MCV RDW Plt Count Lymph % (Auto) Lymph # Seg Neutrophils % Seg Neuts % (Manual) Lymphocytes % (Manual) Monocytes % (Manual) Eosinophils % (Manual) Nucleated RBC % Seg Neutrophils # Man Lymphocytes # (Manual) POC ABG pH 7.241 L 7.244 L ABG pH POC ABG pCO2 50.4 H 50.1 H POC ABG pO2 156 H ABG pO2 ABG HCO3 ABG Base Excess ABG Hemoglobin Oxyhemoglobin Sodium Potassium Chloride Carbon Dioxide BUN Creatinine Glucose POC Glucose 49 L Lactic Acid Calcium TIBC Ferritin AST ALT Alkaline Phosphatase Total Creatine Kinase CK-MB (CK-2) CK-MB (CK-2) Rel Index Troponin T Total Protein Albumin Urine WBC (Auto) Vancomycin Trough 03/14/19 03/14/19 03/14/19 18:29 18:32 20:27 WBC RBC Hgb Hct MCV RDW Plt Count Lymph % (Auto) Lymph # Seg Neutrophils % Seg Neuts % (Manual) Lymphocytes % (Manual) Monocytes % (Manual) Eosinophils % (Manual) Nucleated RBC % Seg Neutrophils # Man Lymphocytes # (Manual) POC ABG pH ABG pH POC ABG pCO2 POC ABG pO2 ABG pO2 ABG HCO3 ABG Base Excess ABG Hemoglobin Oxyhemoglobin Sodium Potassium Chloride 112.6 H Carbon Dioxide 19 L BUN Creatinine 1.4 H Glucose 132 H POC Glucose 57 L 115 H Lactic Acid Calcium TIBC Ferritin AST ALT Alkaline Phosphatase Total Creatine Kinase CK-MB (CK-2) CK-MB (CK-2) Rel Index Troponin T Total Protein Albumin Urine WBC (Auto) Vancomycin Trough 03/14/19 03/14/19 03/15/19 23:47 Unknown 04:00 WBC RBC 2.77 L Hgb 8.5 L Hct 27.3 L MCV 98 H RDW 23.0 H Plt Count 27 L Lymph % (Auto) Lymph # Seg Neutrophils % Seg Neuts % (Manual) 75.0 H Lymphocytes % (Manual) 1.0 L Monocytes % (Manual) Eosinophils % (Manual) Nucleated RBC % 4.0 H Seg Neutrophils # Man Lymphocytes # (Manual) 0.1 L POC ABG pH ABG pH POC ABG pCO2 POC ABG pO2 ABG pO2 ABG HCO3 ABG Base Excess ABG Hemoglobin Oxyhemoglobin Sodium Potassium Chloride Carbon Dioxide BUN Creatinine Glucose POC Glucose 116 H Lactic Acid 3.30 H* Calcium TIBC Ferritin AST ALT Alkaline Phosphatase Total Creatine Kinase CK-MB (CK-2) CK-MB (CK-2) Rel Index Troponin T Total Protein Albumin Urine WBC (Auto) Vancomycin Trough 03/15/19 03/15/19 03/15/19 04:00 06:24 07:35 WBC RBC Hgb Hct MCV RDW Plt Count Lymph % (Auto) Lymph # Seg Neutrophils % Seg Neuts % (Manual) Lymphocytes % (Manual) Monocytes % (Manual) Eosinophils % (Manual) Nucleated RBC % Seg Neutrophils # Man Lymphocytes # (Manual) POC ABG pH 7.282 L ABG pH POC ABG pCO2 50.4 H POC ABG pO2 71 L ABG pO2 ABG HCO3 ABG Base Excess ABG Hemoglobin Oxyhemoglobin Sodium Potassium Chloride 112.1 H Carbon Dioxide 19 L BUN Creatinine 1.5 H Glucose 123 H POC Glucose 140 H Lactic Acid Calcium 8.2 L TIBC Ferritin AST ALT Alkaline Phosphatase Total Creatine Kinase CK-MB (CK-2) CK-MB (CK-2) Rel Index Troponin T Total Protein Albumin Urine WBC (Auto) Vancomycin Trough 03/15/19 03/15/19 03/16/19 11:47 23:25 04:33 WBC RBC Hgb Hct MCV RDW Plt Count Lymph % (Auto) Lymph # Seg Neutrophils % Seg Neuts % (Manual) Lymphocytes % (Manual) Monocytes % (Manual) Eosinophils % (Manual) Nucleated RBC % Seg Neutrophils # Man Lymphocytes # (Manual) POC ABG pH ABG pH 7.304 L POC ABG pCO2 POC ABG pO2 ABG pO2 174.4 H ABG HCO3 19.2 L ABG Base Excess -6.6 L ABG Hemoglobin 8.5 L Oxyhemoglobin Sodium Potassium Chloride Carbon Dioxide BUN Creatinine Glucose POC Glucose 161 H 139 H Lactic Acid Calcium TIBC Ferritin AST ALT Alkaline Phosphatase Total Creatine Kinase CK-MB (CK-2) CK-MB (CK-2) Rel Index Troponin T Total Protein Albumin Urine WBC (Auto) Vancomycin Trough 03/16/19 03/16/19 03/16/19 05:19 05:19 05:19 WBC RBC 2.92 L Hgb 8.9 L Hct 28.0 L MCV RDW 22.8 H Plt Count 42 L Lymph % (Auto) Lymph # Seg Neutrophils % Seg Neuts % (Manual) 84.0 H Lymphocytes % (Manual) 5.0 L Monocytes % (Manual) Eosinophils % (Manual) Nucleated RBC % Seg Neutrophils # Man 7.8 H Lymphocytes # (Manual) 0.5 L POC ABG pH ABG pH POC ABG pCO2 POC ABG pO2 ABG pO2 ABG HCO3 ABG Base Excess ABG Hemoglobin Oxyhemoglobin Sodium Potassium 5.2 H Chloride 114.0 H Carbon Dioxide 18 L BUN 22 H Creatinine 1.7 H Glucose 109 H POC Glucose Lactic Acid Calcium 8.0 L TIBC Ferritin AST ALT Alkaline Phosphatase Total Creatine Kinase 194 H CK-MB (CK-2) CK-MB (CK-2) Rel Index Troponin T Total Protein Albumin Urine WBC (Auto) Vancomycin Trough 03/16/19 03/16/19 03/16/19 05:51 12:19 17:42 WBC RBC Hgb Hct MCV RDW Plt Count Lymph % (Auto) Lymph # Seg Neutrophils % Seg Neuts % (Manual) Lymphocytes % (Manual) Monocytes % (Manual) Eosinophils % (Manual) Nucleated RBC % Seg Neutrophils # Man Lymphocytes # (Manual) POC ABG pH ABG pH POC ABG pCO2 POC ABG pO2 ABG pO2 ABG HCO3 ABG Base Excess ABG Hemoglobin Oxyhemoglobin Sodium Potassium Chloride Carbon Dioxide BUN Creatinine Glucose POC Glucose 123 H 134 H 130 H Lactic Acid Calcium TIBC Ferritin AST ALT Alkaline Phosphatase Total Creatine Kinase CK-MB (CK-2) CK-MB (CK-2) Rel Index Troponin T Total Protein Albumin Urine WBC (Auto) Vancomycin Trough 03/17/19 03/17/1903/17/19 00:46 04:45 04:45 WBC RBC 2.42 L Hgb 7.5 L Hct 23.4 L MCV RDW 22.2 H Plt Count 37 L Lymph % (Auto) 6.2 L Lymph # 0.5 L Seg Neutrophils % 84.0 H Seg Neuts % (Manual) Lymphocytes % (Manual) Monocytes % (Manual) Eosinophils % (Manual) Nucleated RBC % Seg Neutrophils # Man Lymphocytes # (Manual) POC ABG pH ABG pH POC ABG pCO2 POC ABG pO2 ABG pO2 ABG HCO3 ABG Base Excess ABG Hemoglobin Oxyhemoglobin Sodium Potassium Chloride 115.4 H Carbon Dioxide 16 L BUN 27 H Creatinine 1.8 H Glucose 109 H POC Glucose 115 H Lactic Acid Calcium 7.9 L TIBC Ferritin AST ALT Alkaline Phosphatase Total Creatine Kinase CK-MB (CK-2) CK-MB (CK-2) Rel Index Troponin T Total Protein Albumin Urine WBC (Auto) Vancomycin Trough 03/17/19 03/17/19 03/17/19 05:00 06:05 11:15 WBC RBC Hgb Hct MCV RDW Plt Count Lymph % (Auto) Lymph # Seg Neutrophils % Seg Neuts % (Manual) Lymphocytes % (Manual) Monocytes % (Manual) Eosinophils % (Manual) Nucleated RBC % Seg Neutrophils # Man Lymphocytes # (Manual) POC ABG pH ABG pH 7.238 L POC ABG pCO2 POC ABG pO2 ABG pO2 114.7 H ABG HCO3 17.9 L ABG Base Excess -8.8 L ABG Hemoglobin 7.3 L Oxyhemoglobin Sodium Potassium Chloride Carbon Dioxide BUN Creatinine Glucose POC Glucose 124 H Lactic Acid Calcium TIBC 127 L Ferritin AST ALT Alkaline Phosphatase Total Creatine Kinase CK-MB (CK-2) CK-MB (CK-2) Rel Index Troponin T Total Protein Albumin Urine WBC (Auto) Vancomycin Trough 03/17/19 03/17/19 03/17/19 11:15 12:06 18:27 WBC RBC Hgb Hct MCV RDW Plt Count Lymph % (Auto) Lymph # Seg Neutrophils % Seg Neuts % (Manual) Lymphocytes % (Manual) Monocytes % (Manual) Eosinophils % (Manual) Nucleated RBC % Seg Neutrophils # Man Lymphocytes # (Manual) POC ABG pH ABG pH POC ABG pCO2 POC ABG pO2 ABG pO2 ABG HCO3 ABG Base Excess ABG Hemoglobin Oxyhemoglobin Sodium Potassium Chloride Carbon Dioxide BUN Creatinine Glucose POC Glucose 133 H 158 H Lactic Acid Calcium TIBC Ferritin 512.4 H AST ALT Alkaline Phosphatase Total Creatine Kinase CK-MB (CK-2) CK-MB (CK-2) Rel Index Troponin T Total Protein Albumin Urine WBC (Auto) Vancomycin Trough 03/17/19 03/18/19 03/18/19 23:30 04:00 05:45 WBC RBC 2.31 L Hgb 7.0 L Hct 22.0 L MCV RDW 22.2 H Plt Count 45 L Lymph % (Auto) Lymph # Seg Neutrophils % Seg Neuts % (Manual) 82.0 H Lymphocytes % (Manual) 12.0 L Monocytes % (Manual) Eosinophils % (Manual) 5.0 H Nucleated RBC % 1.0 H Seg Neutrophils # Man Lymphocytes # (Manual) 0.8 L POC ABG pH ABG pH POC ABG pCO2 POC ABG pO2 ABG pO2 113.7 H ABG HCO3 ABG Base Excess -3.0 L ABG Hemoglobin 7.0 L Oxyhemoglobin Sodium Potassium Chloride Carbon Dioxide BUN Creatinine Glucose POC Glucose 143 H Lactic Acid Calcium TIBC Ferritin AST ALT Alkaline Phosphatase Total Creatine Kinase CK-MB (CK-2) CK-MB (CK-2) Rel Index Troponin T Total Protein Albumin Urine WBC (Auto) Vancomycin Trough 03/18/19 03/18/19 03/18/19 05:48 05:50 14:01 WBC RBC Hgb Hct MCV RDW Plt Count Lymph % (Auto) Lymph # Seg Neutrophils % Seg Neuts % (Manual) Lymphocytes % (Manual) Monocytes % (Manual) Eosinophils % (Manual) Nucleated RBC % Seg Neutrophils # Man Lymphocytes # (Manual) POC ABG pH 7.299 L ABG pH POC ABG pCO2 48.7 H POC ABG pO2 ABG pO2 ABG HCO3 ABG Base Excess ABG Hemoglobin Oxyhemoglobin Sodium Potassium Chloride 109.9 H Carbon Dioxide BUN 28 H Creatinine 1.5 H Glucose 128 H POC Glucose 118 H Lactic Acid Calcium 7.6 L TIBC Ferritin AST ALT Alkaline Phosphatase Total Creatine Kinase CK-MB (CK-2) CK-MB (CK-2) Rel Index Troponin T Total Protein Albumin Urine WBC (Auto) Vancomycin Trough 03/18/19 03/19/19 03/19/19 23:53 04:43 06:02 WBC RBC Hgb Hct MCV RDW Plt Count Lymph % (Auto) Lymph # Seg Neutrophils % Seg Neuts % (Manual) Lymphocytes % (Manual) Monocytes % (Manual) Eosinophils % (Manual) Nucleated RBC % Seg Neutrophils # Man Lymphocytes # (Manual) POC ABG pH ABG pH 7.332 L POC ABG pCO2 POC ABG pO2 ABG pO2 116.2 H ABG HCO3 ABG Base Excess -3.3 L ABG Hemoglobin 7.3 L Oxyhemoglobin 94.9 L Sodium Potassium Chloride Carbon Dioxide BUN Creatinine Glucose POC Glucose 130 H 122 H Lactic Acid Calcium TIBC Ferritin AST ALT Alkaline Phosphatase Total Creatine Kinase CK-MB (CK-2) CK-MB (CK-2) Rel Index Troponin T Total Protein Albumin Urine WBC (Auto) Vancomycin Trough 03/19/19 03/19/19 03/19/19 12:16 15:33 23:44 WBC RBC Hgb Hct MCV RDW Plt Count Lymph % (Auto) Lymph # Seg Neutrophils % Seg Neuts % (Manual) Lymphocytes % (Manual) Monocytes % (Manual) Eosinophils % (Manual) Nucleated RBC % Seg Neutrophils # Man Lymphocytes # (Manual) POC ABG pH 7.316 L ABG pH POC ABG pCO2 45.7 H POC ABG pO2 ABG pO2 ABG HCO3 ABG Base Excess ABG Hemoglobin Oxyhemoglobin Sodium Potassium Chloride Carbon Dioxide BUN Creatinine Glucose POC Glucose 132 H 106 H Lactic Acid Calcium TIBC Ferritin AST ALT Alkaline Phosphatase Total Creatine Kinase CK-MB (CK-2) CK-MB (CK-2) Rel Index Troponin T Total Protein Albumin Urine WBC (Auto) Vancomycin Trough 03/20/19 03/20/19 03/20/19 01:00 EST 04:27 12:06 WBC RBC Hgb Hct MCV RDW Plt Count Lymph % (Auto) Lymph # Seg Neutrophils % Seg Neuts % (Manual) Lymphocytes % (Manual) Monocytes % (Manual) Eosinophils % (Manual) Nucleated RBC % Seg Neutrophils # Man Lymphocytes # (Manual) POC ABG pH ABG pH POC ABG pCO2 POC ABG pO2 ABG pO2 121.6 H ABG HCO3 ABG Base Excess ABG Hemoglobin 7.1 L Oxyhemoglobin Sodium Potassium 3.4 L Chloride 111.7 H Carbon Dioxide BUN 29 H Creatinine Glucose POC Glucose 134 H Lactic Acid Calcium 8.0 L TIBC Ferritin AST ALT Alkaline Phosphatase Total Creatine Kinase CK-MB (CK-2) CK-MB (CK-2) Rel Index Troponin T Total Protein Albumin Urine WBC (Auto) Vancomycin Trough 03/20/19 03/20/19 03/21/19 18:09 23:36 05:42 WBC RBC Hgb Hct MCV RDW Plt Count Lymph % (Auto) Lymph # Seg Neutrophils % Seg Neuts % (Manual) Lymphocytes % (Manual) Monocytes % (Manual) Eosinophils % (Manual) Nucleated RBC % Seg Neutrophils # Man Lymphocytes # (Manual) POC ABG pH ABG pH POC ABG pCO2 POC ABG pO2 ABG pO2 ABG HCO3 ABG Base Excess ABG Hemoglobin Oxyhemoglobin Sodium Potassium Chloride Carbon Dioxide BUN Creatinine Glucose POC Glucose 133 H 114 H 116 H Lactic Acid Calcium TIBC Ferritin AST ALT Alkaline Phosphatase Total Creatine Kinase CK-MB (CK-2) CK-MB (CK-2) Rel Index Troponin T Total Protein Albumin Urine WBC (Auto) Vancomycin Trough 03/21/19 03/21/19 03/21/19 08:12 14:09 17:51 WBC 3.9 L RBC 2.25 L Hgb 7.1 L Hct 21.6 L MCV RDW 21.6 H Plt Count 105 L Lymph % (Auto) Lymph # Seg Neutrophils % Seg Neuts % (Manual) Lymphocytes % (Manual) 13.0 L Monocytes % (Manual) 13.0 H Eosinophils % (Manual) Nucleated RBC % Seg Neutrophils # Man Lymphocytes # (Manual) 0.5 L POC ABG pH ABG pH POC ABG pCO2 POC ABG pO2 120 H ABG pO2 ABG HCO3 ABG Base Excess ABG Hemoglobin Oxyhemoglobin Sodium Potassium Chloride Carbon Dioxide BUN Creatinine Glucose POC Glucose 145 H Lactic Acid Calcium TIBC Ferritin AST ALT Alkaline Phosphatase Total Creatine Kinase CK-MB (CK-2) CK-MB (CK-2) Rel Index Troponin T Total Protein Albumin Urine WBC (Auto) Vancomycin Trough 03/22/19 03/22/19 03/22/19 05:36 11:10 11:39 WBC RBC Hgb Hct MCV RDW Plt Count Lymph % (Auto) Lymph # Seg Neutrophils % Seg Neuts % (Manual) Lymphocytes % (Manual) Monocytes % (Manual) Eosinophils % (Manual) Nucleated RBC % Seg Neutrophils # Man Lymphocytes # (Manual) POC ABG pH ABG pH POC ABG pCO2 POC ABG pO2 ABG pO2 ABG HCO3 ABG Base Excess ABG Hemoglobin Oxyhemoglobin Sodium 149 H Potassium Chloride 115.6 H Carbon Dioxide BUN 20 H Creatinine Glucose 109 H POC Glucose 106 H 124 H Lactic Acid Calcium TIBC Ferritin AST ALT Alkaline Phosphatase Total Creatine Kinase CK-MB (CK-2) CK-MB (CK-2) Rel Index Troponin T Total Protein Albumin Urine WBC (Auto) Vancomycin Trough 03/22/19 03/22/19 03/22/19 12:04 18:36 Unknown WBC 4.2 L RBC 2.45 L Hgb 7.6 L Hct 23.9 L MCV 98 H RDW 22.2 H Plt Count Lymph % (Auto) Lymph # Seg Neutrophils % Seg Neuts % (Manual) Lymphocytes % (Manual) Monocytes % (Manual) Eosinophils % (Manual) Nucleated RBC % Seg Neutrophils # Man Lymphocytes # (Manual) POC ABG pH 7.285 L ABG pH POC ABG pCO2 55.4 H POC ABG pO2 ABG pO2 ABG HCO3 ABG Base Excess ABG Hemoglobin Oxyhemoglobin Sodium Potassium Chloride Carbon Dioxide BUN Creatinine Glucose POC Glucose 120 H Lactic Acid Calcium TIBC Ferritin AST ALT Alkaline Phosphatase Total Creatine Kinase CK-MB (CK-2) CK-MB (CK-2) Rel Index Troponin T Total Protein Albumin Urine WBC (Auto) Vancomycin Trough 03/23/19 03/23/19 03/23/19 04:37 05:12 05:30 WBC 4.2 L RBC 2.22 L Hgb 7.0 L Hct 21.4 L MCV RDW 21.5 H Plt Count Lymph % (Auto) Lymph # Seg Neutrophils % Seg Neuts % (Manual) Lymphocytes % (Manual) Monocytes % (Manual) Eosinophils % (Manual) Nucleated RBC % Seg Neutrophils # Man Lymphocytes # (Manual) POC ABG pH 7.500 H ABG pH POC ABG pCO2 POC ABG pO2 60 L ABG pO2 ABG HCO3 ABG Base Excess ABG Hemoglobin Oxyhemoglobin Sodium Potassium Chloride Carbon Dioxide BUN Creatinine Glucose POC Glucose 106 H Lactic Acid Calcium TIBC Ferritin AST ALT Alkaline Phosphatase Total Creatine Kinase CK-MB (CK-2) CK-MB (CK-2) Rel Index Troponin T Total Protein Albumin Urine WBC (Auto) Vancomycin Trough 03/23/19 03/23/19 03/23/19 05:30 11:50 18:11 WBC RBC Hgb Hct MCV RDW Plt Count Lymph % (Auto) Lymph # Seg Neutrophils % Seg Neuts % (Manual) Lymphocytes % (Manual) Monocytes % (Manual) Eosinophils % (Manual) Nucleated RBC % Seg Neutrophils # Man Lymphocytes # (Manual) POC ABG pH ABG pH POC ABG pCO2 POC ABG pO2 ABG pO2 ABG HCO3 ABG Base Excess ABG Hemoglobin Oxyhemoglobin Sodium 149 H Potassium Chloride 114.7 H Carbon Dioxide BUN 19 H Creatinine Glucose POC Glucose 118 H 107 H Lactic Acid Calcium 8.3 L TIBC Ferritin AST ALT Alkaline Phosphatase Total Creatine Kinase CK-MB (CK-2) CK-MB (CK-2) Rel Index Troponin T Total Protein Albumin Urine WBC (Auto) Vancomycin Trough 03/23/19 03/24/19 03/24/19 23:23 04:36 04:42 WBC 4.0 L RBC 2.46 L Hgb 7.9 L Hct 24.4 L MCV 99 H RDW 23.5 H Plt Count Lymph % (Auto) Lymph # Seg Neutrophils % Seg Neuts % (Manual) Lymphocytes % (Manual) Monocytes % (Manual) Eosinophils % (Manual) Nucleated RBC % Seg Neutrophils # Man Lymphocytes # (Manual) POC ABG pH ABG pH POC ABG pCO2 POC ABG pO2 ABG pO2 104.6 H ABG HCO3 ABG Base Excess ABG Hemoglobin 7.1 L Oxyhemoglobin Sodium Potassium Chloride Carbon Dioxide BUN Creatinine Glucose POC Glucose 112 H Lactic Acid Calcium TIBC Ferritin AST ALT Alkaline Phosphatase Total Creatine Kinase CK-MB (CK-2) CK-MB (CK-2) Rel Index Troponin T Total Protein Albumin Urine WBC (Auto) Vancomycin Trough 03/24/19 03/24/19 04:42 06:03 WBC RBC Hgb Hct MCV RDW Plt Count Lymph % (Auto) Lymph # Seg Neutrophils % Seg Neuts % (Manual) Lymphocytes % (Manual) Monocytes % (Manual) Eosinophils % (Manual) Nucleated RBC % Seg Neutrophils # Man Lymphocytes # (Manual) POC ABG pH ABG pH POC ABG pCO2 POC ABG pO2 ABG pO2 ABG HCO3 ABG Base Excess ABG Hemoglobin Oxyhemoglobin Sodium 149 H Potassium Chloride 115.7 H Carbon Dioxide BUN 18 H Creatinine Glucose 128 H POC Glucose 136 H Lactic Acid Calcium 8.3 L TIBC Ferritin AST ALT Alkaline Phosphatase Total Creatine Kinase CK-MB (CK-2) CK-MB (CK-2) Rel Index Troponin T Total Protein Albumin Urine WBC (Auto) Vancomycin Trough Allied health notes reviewed: nursing
[2019-03-24] MEDS: RIFAXIMIN 550 MG TAB PO SCH ×2 (10:38→22:18)
[2019-03-24] MEDS: FOLIC ACID 1 MG TAB PO SCH (10:38)
[2019-03-24] MEDS: THIAMINE 100 MG TAB PO SCH (10:39)
[2019-03-24] MEDS: FLUTICASONE PROPIONATE NASAL SPRAY 16 GM NS SCH (10:39)
[2019-03-24] MEDS: FAMOTIDINE 20 MG TAB PO SCH ×2 (10:39→22:18)
[2019-03-24] MEDS ORDERED: PIPERACIL/TAZOBACTA 4.5/NS 100 4.5 GM/100 ML VIAL IV SCH (12:00)
[2019-03-24] MEDS ORDERED: SODIUM BICARBONATE 325 MG TAB FEEDTUBE PRN ×2 (12:18→12:29)
[2019-03-24] MEDS ORDERED: LIPASE 10,500/PROTEASE 25,000/AMYLASE 43,750 (UNITS) DR CAP FEEDTUBE PRN ×2 (12:18→12:29)
[2019-03-24] MEDS ORDERED: SIMPLE SYRUP 15 ML FEEDTUBE PRN ×4 (12:18→12:29)
--- NOTE | 2019-03-24 12:49 | Progress Note ---
Assessment and Plan Cultures: 03/10 UCx - VRE faecim 03/10 BCx - NGTD 03/14 BCX - NGTD A/P: 68 yo F PMHx hepatitis C, Dm2, many other comorbidities admitted with altered mental status, possible secondary to VRE UTI: 1. VRE UTI - Resolved 2. Hepatitis C 3. DM2 - tight glycemic control for wound healing 4. Hypoxic respiratory failure secondary to aspiration pneumonia - Complted 7 days of pip-david Recs: - off antibiotics, continue to monitor - Possible some element of central fevers. If fevers recur, would re-culture. Berta Stacy MD [facility] ([facility]) M: [phone] O: [phone] F: [phone] Subjective Date of service: 03/24/19 Principal diagnosis: anemia Interval history: remains intubated and sedated Objective - Exam Narrative Exam: Constitutional: intubated, sedated Head, Ears, Nose: Normocephalic, atraumatic. External ears, nose normal Eyes: Conjunctivae/corneas clear. No icterus. No ptosis. Neck: Supple, no meningeal signs Oral: dentition fair, no thrush Cardiovascular: S1, S2 normal. Respiratory: Good air entry, clear to auscultation bilaterally GI: Soft, non-tender; bowel sounds normal. No peritoneal signs. Musculoskeletal: No pedal edema, no cyanosis. Skin: No rash or abscess Hem/Lymphatic: No palpable cervical or supraclavicular nodes. No lymphangitis Psych: Sedated Neurological: Intubated, sedated - Constitutional Vitals: Vital Signs Temp Pulse Resp BP Pulse Ox 95.9 F L 80 18 143/88 97 03/24/19 12:00 03/24/19 12:30 03/24/19 12:30 03/24/19 12:30 03/24/19 11:30 Temperature -Last 24 Hours Temperature 95.9 F Temperature 95.9 F Temperature 97.6 F Temperature 97.1 F Temperature 98.7 F Temperature 98.4 F - Labs CBC & Chem 7: 03/24/19 04:42 03/24/19 04:42 Labs: Abnormal lab results 03/23/19 03/23/19 03/24/19 Range/Units 18:11 23:23 04:36 WBC (4.5-11.0) K/mm3 RBC (3.65-5.03) M/mm3 Hgb (10.1-14.3) gm/dl Hct (30.3-42.9) % MCV (79-97) fl RDW (13.2-15.2) % ABG pO2 104.6 H (80.0-90.0) mm Hg ABG Hemoglobin 7.1 L (12.0-16.0) gm/dl Sodium (137-145) mmol/L Chloride (98-107) mmol/L BUN (7-17) mg/dL Glucose (65-100) mg/dL POC Glucose 107 H 112 H (70-105) Calcium (8.4-10.2) mg/dL 03/24/19 03/24/19 03/24/19 Range/Units 04:42 04:42 06:03 WBC 4.0 L (4.5-11.0) K/mm3 RBC 2.46 L (3.65-5.03) M/mm3 Hgb 7.9 L (10.1-14.3) gm/dl Hct 24.4 L (30.3-42.9) % MCV 99 H (79-97) fl RDW 23.5 H (13.2-15.2) % ABG pO2 (80.0-90.0) mm Hg ABG Hemoglobin (12.0-16.0) gm/dl Sodium 149 H (137-145) mmol/L Chloride 115.7 H (98-107) mmol/L BUN 18 H (7-17) mg/dL Glucose 128 H (65-100) mg/dL POC Glucose 136 H (70-105) Calcium 8.3 L (8.4-10.2) mg/dL
--- NOTE | 2019-03-24 17:30 | Progress Note ---
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 ID consult appreciated KERRI is due to ATN and vasomotor nephropathy: -monitor cr level, stable and improved VRE UTI, septic shock, sepsis POA: resolved abx per ID, off vasopressors since 03/17/19, still in contact isolation Thrombocytopenia: likely 2/2 sepsis, stable Acute Metabolic encephalopathy with agitation: Probably due to the acute infection Acute on chronic Pancytopenia: continue to monitor levels, Oncology consulted Hypernatremia: probably 2/2 dehydration- improved on IV D5W- monitor BMP closely Hyperkalemia: s/p kayexalate, resolved Hypoglycemia: On hypoglycemic protocol H/o Chronic liver disease: Continue lactulose and rifaximin Nutrition: Continue tube feeding DVT prophylaxis: On SCDs due to thrombocytopenia Disposition: continue inpatient care, Prognosis is guarded/poor Tracheostomy/PEG anticipated. History Interval history: Patient was seen and examined. Follow-up on current diagnosis of AMS. No overnight events reported to me. Patient denies any chest pain, shortness breath, nausea/vomiting or severe headaches. Imaging, nursing note, chart, labs and old chart reviewed. Discussed with patient. Hospitalist Physical - Physical exam Narrative exam: Gen: critically ill, awake, eyes open, intubated not sedated on PS HEENT: NCAT, EOMI, PERRL, OP with ETT and NGT Neck: supple, no adenopathy, no thyromegaly, no JVD CVS/Heart: RRR, normal S1S2, pulses present bilaterally Chest/Lungs: Symmetrical chest expansion, good air entry bilaterally GI/Abdomen: soft, NTND, good bowel sounds, no guarding or rebound /Bladder: no suprapubic tenderness, no CVA or paraspinal tenderness Extermity/Skin: right neck IJ TLC MSK: sFROM x 4 Neuro: CN 2-12 grossly intact, doesn't follow commands Psych: calm - Constitutional Vitals: Temp Pulse Resp BP Pulse Ox 95.9 F L 76 22 135/80 99 03/24/19 12:00 03/24/19 15:30 03/24/19 15:30 03/24/19 15:30 03/24/19 14:20 General appearance: Present: no acute distress, other (mildly agitated) Results - Labs CBC & Chem 7: 03/24/19 04:42 03/24/19 04:42 Labs: Laboratory Last Values WBC 4.0 K/mm3 (4.5-11.0) L 03/24/19 04:42 RBC 2.46 M/mm3 (3.65-5.03) L 03/24/19 04:42 Hgb 7.9 gm/dl (10.1-14.3) L 03/24/19 04:42 Hct 24.4 % (30.3-42.9) L 03/24/19 04:42 MCV 99 fl (79-97) H 03/24/19 04:42 MCH 32 pg (28-32) 03/24/19 04:42 MCHC 32 % (30-34) 03/24/19 04:42 RDW 23.5 % (13.2-15.2) H 03/24/19 04:42 Plt Count 182 K/mm3 (140-440) 03/24/19 04:42 Lymph % (Auto) 6.2 % (13.4-35.0) L 03/17/19 04:45 Citrus % (Auto) Carbide Grinder 03/21/19 08:12 Eos % (Auto) 3.2 % (0.0-4.3) 03/17/19 04:45 Baso % (Auto) 0.2 % (0.0-1.8) 03/17/19 04:45 Lymph # 0.5 K/mm3 (1.2-5.4) L 03/17/19 04:45 Citrus # 0.6 K/mm3 (0.0-0.8) 03/17/19 04:45 Eos # 0.3 K/mm3 (0.0-0.4) 03/17/19 04:45 Baso # 0.0 K/mm3 (0.0-0.1) 03/17/19 04:45 Add Manual Diff Complete 03/21/19 08:12 Total Counted 100 03/21/19 08:12 Seg Neutrophils % 84.0 % (40.0-70.0) H 03/17/19 04:45 Seg Neuts % (Manual) 67.0 % (40.0-70.0) 03/21/19 08:12 Band Neutrophils % 2.0 % 03/21/19 08:12 Lymphocytes % (Manual) 13.0 % (13.4-35.0) L 03/21/19 08:12 Reactive Lymphs % (Man) 1.0 % 03/21/19 08:12 Monocytes % (Manual) 13.0 % (0.0-7.3) H 03/21/19 08:12 Eosinophils % (Manual) 3.0 % (0.0-4.3) 03/21/19 08:12 Basophils % (Manual) 0 % (0.0-1.8) 03/21/19 08:12 Metamyelocytes % 1.0 % 03/21/19 08:12 Myelocytes % 0 % 03/21/19 08:12 Promyelocytes % 0 % 03/21/19 08:12 Blast Cells % 0 % 03/21/19 08:12 Nucleated RBC % Not Reportable 03/21/19 08:12 Seg Neutrophils # 7.2 K/mm3 (1.8-7.7) 03/17/19 04:45 Seg Neutrophils # Man 2.6 K/mm3 (1.8-7.7) 03/21/19 08:12 Band Neutrophils # 0.1 K/mm3 03/21/19 08:12 Lymphocytes # (Manual) 0.5 K/mm3 (1.2-5.4) L 03/21/19 08:12 Abs React Lymphs (Man) 0.0 K/mm3 03/21/19 08:12 Monocytes # (Manual) 0.5 K/mm3 (0.0-0.8) 03/21/19 08:12 Eosinophils # (Manual) 0.1 K/mm3 (0.0-0.4) 03/21/19 08:12 Basophils # (Manual) 0.0 K/mm3 (0.0-0.1) 03/21/19 08:12 Metamyelocytes # 0.0 K/mm3 03/21/19 08:12 Myelocytes # 0.0 K/mm3 03/21/19 08:12 Promyelocytes # 0.0 K/mm3 03/21/19 08:12 Blast Cells # 0.0 K/mm3 03/21/19 08:12 Pathologist Review 03/18/19 05:45 WBC Morphology Not Reportable 03/21/19 08:12 Hypersegmented Neuts Not Reportable 03/21/19 08:12 Hyposegmented Neuts Not Reportable 03/21/19 08:12 Hypogranular Neuts Not Reportable 03/21/19 08:12 Smudge Cells Not Reportable 03/21/19 08:12 Toxic Granulation Not Reportable 03/21/19 08:12 Toxic Vacuolation Not Reportable 03/21/19 08:12 Dohle Bodies Not Reportable 03/21/19 08:12 Pelger-Huet Anomaly Not Reportable 03/21/19 08:12 Sheila Rods Not Reportable 03/21/19 08:12 Platelet Estimate Consistent w auto 03/21/19 08:12 Clumped Platelets Not Reportable 03/21/19 08:12 Plt Clumps, EDTA Not Reportable 03/21/19 08:12 Large Platelets Not Reportable 03/21/19 08:12 Giant Platelets Not Reportable 03/21/19 08:12 Platelet Satelliting Not Reportable 03/21/19 08:12 Plt Morphology Comment Not Reportable 03/21/19 08:12 RBC Morphology Not Reportable 03/21/19 08:12 Dimorphic RBCs Not Reportable 03/21/19 08:12 Polychromasia Not Reportable 03/21/19 08:12 Hypochromasia Not Reportable 03/21/19 08:12 Poikilocytosis Not Reportable 03/21/19 08:12 Anisocytosis 1+ 03/21/19 08:12 Microcytosis Not Reportable 03/21/19 08:12 Macrocytosis 1+ 03/21/19 08:12 Spherocytes Not Reportable 03/21/19 08:12 Pappenheimer Bodies Not Reportable 03/21/19 08:12 Sickle Cells Not Reportable 03/21/19 08:12 Target Cells Few 03/21/19 08:12 Tear Drop Cells Not Reportable 03/21/19 08:12 Ovalocytes Not Reportable 03/21/19 08:12 Helmet Cells Not Reportable 03/21/19 08:12 Ann-Newell Bodies Not Reportable 03/21/19 08:12 [place] Rings Not Reportable 03/21/19 08:12 [place] Cells Not Reportable 03/21/19 08:12 Bite Cells Not Reportable 03/21/19 08:12 Crenated Cell Not Reportable 03/21/19 08:12 Elliptocytes Not Reportable 03/21/19 08:12 Acanthocytes (Spur) Not Reportable 03/21/19 08:12 Rouleaux Not Reportable 03/21/19 08:12 Hemoglobin C Crystals Not Reportable 03/21/19 08:12 Schistocytes Not Reportable 03/21/19 08:12 Malaria parasites Not Reportable 03/21/19 08:12 [place] Bodies Not Reportable 03/21/19 08:12 Hem Pathologist Commnt No 03/21/19 08:12 POC ABG pH 7.500 (7.35-7.45) H 03/23/19 04:37 ABG pH 7.379 pH Units (7.350-7.450) 03/24/19 04:36 POC ABG pCO2 39.6 (35-45) 03/23/19 04:37 ABG pCO2 43.0 mm Hg 03/24/19 04:36 POC ABG pO2 60 (80-105) L 03/23/19 04:37 ABG pO2 104.6 mm Hg (80.0-90.0) H 03/24/19 04:36 POC ABG HCO3 30.8 (22-26 mml/L) 03/23/19 04:37 ABG HCO3 24.8 mmol/L (20.0-26.0) 03/24/19 04:36 POC ABG Total CO2 32 (23-27mmol/L) 03/23/19 04:37 POC ABG O2 Sat 93 03/23/19 04:37 ABG O2 Saturation 97.7 % (95.0-99.0) 03/24/19 04:36 ABG O2 Content 9.7 (0.0-44) 03/24/19 04:36 POC ABG Base Excess 8 ((-2) - (+3)mmol/L) 03/23/19 04:37 ABG Base Excess -0.3 mmol/L (-2.0-3.0) 03/24/19 04:36 ABG Hemoglobin 7.1 gm/dl (12.0-16.0) L 03/24/19 04:36 ABG Carboxyhemoglobin 2.4 % (0.0-5.0) 03/24/19 04:36 ABG Methemoglobin 0.4 % (0.0-1.5) 03/24/19 04:36 Oxyhemoglobin 95.0 % (95.0-99.0) 03/24/19 04:36 FiO2 25 % 03/24/19 04:36 Sodium 149 mmol/L (137-145) H 03/24/19 04:42 Potassium 3.8 mmol/L (3.6-5.0) 03/24/19 04:42 Chloride 115.7 mmol/L (98-107) H 03/24/19 04:42 Carbon Dioxide 23 mmol/L (22-30) 03/24/19 04:42 Anion Gap 14 mmol/L 03/24/19 04:42 BUN 18 mg/dL (7-17) H 03/24/19 04:42 Creatinine 0.8 mg/dL (0.7-1.2) 03/24/19 04:42 Estimated GFR > 60 ml/min 03/24/19 04:42 BUN/Creatinine Ratio 23 % 03/24/19 04:42 Glucose 128 mg/dL (65-100) H 03/24/19 04:42 POC Glucose 137 (70-105) H 03/24/19 12:24 Hemoglobin A1c 4.6 % (4-6) 03/10/19 13:16 Lactic Acid 0.80 mmol/L (0.7-2.0) 03/21/19 13:05 Calcium 8.3 mg/dL (8.4-10.2) L 03/24/19 04:42 Iron 81 ug/dL (37-170) 03/17/19 11:15 TIBC 127 mcg/dL (250-450) L 03/17/19 11:15 Ferritin 512.4 ng/mL (13.0-400.0) H 03/17/19 11:15 Total Bilirubin 0.50 mg/dL (0.1-1.2) 03/14/19 06:44 AST 144 units/L (5-40) H 03/14/19 06:44 ALT 90 units/L (7-56) H 03/14/19 06:44 Alkaline Phosphatase 226 units/L (35-129) H 03/14/19 06:44 Ammonia 54.0 umol/L (25-60) 03/11/19 07:29 Total Creatine Kinase 194 units/L (30-135) H 03/16/19 05:19 CK-MB (CK-2) 8.6 ng/mL (0.0-4.0) H 03/14/19 06:44 CK-MB (CK-2) Rel Index 7.1 (0-4) H 03/14/19 06:44 Troponin T 0.056 ng/mL (0.00-0.029) H D 03/14/19 06:44 Total Protein 6.7 g/dL (6.3-8.2) 03/14/19 06:44 Albumin 2.2 g/dL (3.9-5) L 03/14/19 06:44 Albumin/Globulin Ratio 0.5 % 03/14/19 06:44 Triglycerides 62 mg/dL (2-149) 03/14/19 06:44 Cholesterol 133 mg/dL (50-199) 03/14/19 06:44 LDL Cholesterol Direct 89 mg/dL (50-130) 03/14/19 06:44 HDL Cholesterol 43 mg/dL (40-59) 03/14/19 06:44 Cholesterol/HDL Ratio 3.09 % 03/14/19 06:44 Procalcitonin 1.19 ng/mL (<0.15) 03/21/19 13:05 Urine Color Straw (Yellow) 03/10/19 14:38 Urine Turbidity Clear (Clear) 03/10/19 14:38 Urine pH 7.0 (5.0-7.0) 03/10/19 14:38 Ur Specific [place] 1.009 (1.003-1.030) 03/10/19 14:38 Urine Protein <15 mg/dl mg/dL (Negative) 03/10/19 14:38 Urine Glucose (UA) Neg mg/dL (Negative) 03/10/19 14:38 Urine Ketones Neg mg/dL (Negative) 03/10/19 14:38 Urine Blood Neg (Negative) 03/10/19 14:38 Urine Nitrite Neg (Negative) 03/10/19 14:38 Urine Bilirubin Neg (Negative) 03/10/19 14:38 Urine Urobilinogen < 2.0 mg/dL (<2.0) 03/10/19 14:38 Ur Leukocyte Esterase Sm (Negative) 03/10/19 14:38 Urine WBC (Auto) 9.0 /HPF (0.0-6.0) H 03/10/19 14:38 Urine RBC (Auto) 2.0 /HPF (0.0-6.0) 03/10/19 14:38 U Epithel Cells (Auto) 1.0 /HPF (0-13.0) 03/10/19 14:38 Urine Bacteria (Auto) 2+ /HPF (Negative) 03/10/19 14:38 Urine Mucus Few /HPF 03/10/19 14:38 Vancomycin Trough 39.7 ug/mL (5.0-20.0) H 03/13/19 05:58 Random Vancomycin 27.6 ug/mL (0-40.0) 03/14/19 05:44 Active Medications - Current Medications Current Medications: Generic Name Dose Route Start Last Admin Trade Name Freq PRN Reason Stop Dose Admin Acetaminophen 650 mg 03/10/19 17:46 Tylenol PO Q4H PRN Pain MILD(1-3)/Fever >100.5/GUERRERO Albuterol 2.5 mg 03/11/19 03:52 Proventil IH TID PRN Wheezing Albuterol/Ipratropium 1 ampul 03/11/19 08:00 03/24/19 14:19 Duoneb *Not For Prn Use* IH 1 ampul Q6HRT CONNIE Administration Lipase/Protease/Amylase 1 each 03/14/19 13:25 Pancremartine Sahni 10,500 Unit FEEDTUBE PRN PRN For Clogged Feeding Tube Dextrose 50 ml 03/10/19 22:27 03/14/19 17:55 D50w (25gm) Syringe IV 50 ml Q30MIN PRN Administration Hypoglycemia Famotidine 20 mg 03/22/19 10:00 03/24/19 10:39 Pepcid PO 20 mg BID CONNIE Administration Fluticasone Propionate 50 mcg 03/11/19 10:00 03/24/19 10:39 Flonase NS 50 mcg QDAY CONNIE Administration Folic Acid 1 mg 03/11/19 10:00 03/24/19 10:38 Folvite PO 1 mg QDAY CONNIE Administration Haloperidol 0.5 mg 03/11/19 03:52 03/12/19 09:32 Haldol PO 0.5 mg Q6H PRN Administration Agitation Hydrophilic Ointment 1 applic 03/14/19 06:51 Vaseline Lip Therapy TP Q2HR PRN Dry Lips Propofol 1,000 mg in 100 mls @ 2.587 mls/hr 03/14/19 07:00 03/14/19 12:00 Diprivan 10 Mg/Ml IV 0 mcg/kg/min TITR CONNIE 0 mls/hr Titration Protocol 5 MCG/KG/MIN Fentanyl Citrate 2,000 mcg in 100 mls @ 4.312 mls/hr 03/14/19 11:00 03/18/19 21:00 Fentanyl Drip Premix IV 2 mcg/kg/hr TITR CONNIE 8.623 mls/hr Titration Protocol 1 MCG/KG/HR Vasopressin 20 unit/ Sodium 101 mls @ 9.09 mls/hr 03/14/19 14:00 03/18/19 12:30 Chloride IV Infused TITR CONNIE Titration Protocol 0.03 UNITS/MIN Dopamine HCl/Dextrose 800 mg in 250 mls @ 3.234 mls/hr 03/14/19 22:00 03/18/19 08:45 Intropin Drip 800 Mg/D5w 250 Ml IV 0 mcg/kg/min TITR CONNIE 0 mls/hr Titration Protocol 2 MCG/KG/MIN Sodium Chloride 500 mls @ 15 mls/hr 03/17/19 20:00 Nacl 0.9% 500 Ml IV PRN [facility] Insulin Human Lispro 0 unit 03/11/19 00:00 03/24/19 12:40 Humalog SUB-Q Not Given Q6HR [facility] Protocol Morphine Sulfate 2 mg 03/10/19 17:56 03/22/19 02:47 Morphine IV 2 mg Q4H PRN Administration Pain, Moderate (4-6) Multi-Ingred Cream/Lotion/Oil/Oint 1 applic 03/14/19 06:51 03/20/19 10:22 Artificial Tears Ophth Oint OU 0.35 applic Q4HR PRN Administration Dry Eye(s) Ondansetron HCl 4 mg 03/10/19 17:46 03/11/19 05:04 Zofran IV 4 mg Q8H PRN Administration Nausea And Vomiting Rifaximin 550 mg 03/11/19 10:00 03/24/19 10:38 Xifaxan PO 550 mg BID CONNIE Administration Scopolamine 1 each 03/20/19 15:00 03/23/19 15:46 Transderm-Scop TD 1 each Q3D CONNIE Administration Simple Syrup 15 ml 03/14/19 13:25 Simple Syrup FEEDTUBE PRN PRN Hypoglycemia Simple Syrup 30 ml 03/14/19 13:25 Simple Syrup FEEDTUBE PRN PRN Hypoglycemia Sodium Bicarbonate 325 mg 03/14/19 13:25 Sodium Bicarbonate FEEDTUBE PRN PRN For Clogged Feeding Tube Sodium Chloride 10 ml 03/10/19 22:00 03/23/19 21:46 Sodium Chloride Flush Syringe 10 Ml IV 10 ml BID CONNIE Administration Sodium Chloride 10 ml 03/10/19 17:46 03/13/19 22:50 Sodium Chloride Flush Syringe 10 Ml IV 10 ml PRN PRN Administration LINE FLUSH Thiamine HCl 100 mg 03/11/19 10:00 03/24/19 10:39 Vitamin B-1 PO 100 mg QDAY CONNIE Administration Nutrition/Malnutrition Assess - Dietary Evaluation Nutrition/Malnutrition Findings: Nutrition Notes Start: 03/11/19 10:01 Freq: Status: Active Protocol: Document 03/24/19 12:19 AP (Rec: 03/24/19 12:32 AP [email or web address]) Co-Sign 03/24/19 12:19 LM Nutrition Notes Need for Assessment generated from: MD Order Initial or Follow up Reassessment Current Diagnosis COPD,Decubitus(Pressure Ulcer) ,Hypertension Other Pertinent Diagnosis AMS/nonverbal, Hep C, Anemia, Renal stones Current Diet Vital AF 1.2 at 55ml/hr Labs/Tests Na 149 Pertinent Medications Reviewed Height 5 ft 3 in Weight 102.2 kg Freedom Body Weight (kg) 52.27 BMI 39.9 Weight Status Obese Subjective/Other Information F/U for TF rate/tolerance. Vital AF 1.2 running at 55ml/ hr. Pt to receive trach/PEG next week per RN. Percent of energy/protein needs met: 93%/94% Minimum of two criteria No Reduced Directional Drill Operator Strength Measurably Reduced (severe) #1 Nutrition Diagnosis Inadequate oral intake Diagnosis Progress(for reassessment Continues documentation) Is patient on ventilator? Yes Is Patient Ambulatory and/or Out of Bed No REE-(Lima-St Jeor-confined to bed) [phone] Nutrition Intervention Change Diet Order: TF Nutrition Support: Vital AF 1.2 at 55ml/hr. Increase flush to 200ml q4h for hypernatremia. Once resolved flush 100ml q4h. Kcal 1,584 Protein (gm) 99 Fluid (mL) 1,071 Goal #1 TF tolerance Goal #2 TF continue to meet at least 80% of estimated energy and protein needs. Anticipated Discharge Needs: unable to determine at this time Follow-Up By: 03/28/19 Additional Comments F/U for TF tolerance, Na labs.
[2019-03-24] MEDS: MORPHINE 2 MG/1 ML INJ IV PRN (22:18)
[2019-03-25] MEDS: IPRATROPIUM/ALBUTEROL SULFATE 3 ML AMPUL.NEB IH SCH ×4 (01:27→22:04)
[2019-03-25 05:20] LABS: Hematocrit 23.4 % (30.3-42.9); Hemoglobin 7.5 gm/dl (10.1-14.3); Mean Corpuscular HGB Conc 32 % (30-34); Mean Corpuscular Volume 100 fl (79-97); Platelet Count 197 K/mm3 (140-440); Red Blood Count 2.35 M/mm3 (3.65-5.03)
[2019-03-25 05:25] LABS: Red Cell Distribution Width 24.7 % (13.2-15.2)
[2019-03-25 05:31] LABS: BUN/Creatinine Ratio 21; Blood Urea Nitrogen 15 mg/dL (7-17); Calcium 8.5 mg/dL (8.4-10.2); Hemolysis Index 10
--- NOTE | 2019-03-25 07:30 | Hem/Onc Progress Note ---
Assessment and Plan 1. h/o Leukopenia and the patient has a history of liver disease and alcohol usage. These may have a role. Thrombocytopenia may have a similar reason. Deficiency investigations. In January, B12 was 1400, folate 13. 2. Encephalopathy, being treated for sepsis. 3. History of electrolyte imbalance. 4. History of hypertension. 5. History of chronic obstructive pulmonary disease. 6. AST, ALT abnormality. 7. The patient was placed on reverse isolation. I will follow the patient during inpatient stay. b12 - folate normal - will follow h/o plt low - may be sec to infection/meds/antibiotics - pt was on vanco - zosyn - daptomycin ID following pt b12- folate - iron ferritin WNL platelets better lovenox for DVT prevention is an option - Patient Problems (1) Leukopenia Current Visit: Yes Status: Acute Qualifiers: Leukopenia type: unspecified Qualified Code(s): D72.819 - Decreased white blood cell count, unspecified Subjective Date of service: 03/25/19 Principal diagnosis: anemia Interval history: still on vent Objective - Exam Narrative Exam: Pain - on vent General appearance - intubated Performance status - complete dependence Eyes - no icterus, ENT - no bleeding LNs cervical not palpable Neck - no LN Respiratory Normal Breath sounds - CTA anteriorly CVS S1 S2 + Extremities edema+ General GI Soft Rectal deferred female - deferred Skin warm Musculoskeletal on vent Neurologically intubated - Constitutional Vitals: Last Vital Signs Temp 99.3 F 03/25/19 04:46 Pulse 96 H 03/25/19 07:00 Resp 18 03/25/19 07:00 BP 136/94 03/25/19 07:00 Pulse Ox 100 03/25/19 07:00 - Labs Lab Results: Laboratory Results - last 24 hr 03/18/19 03/24/19 03/24/19 05:45 12:24 17:48 WBC RBC Hgb Hct MCV MCH MCHC RDW Plt Count WBC Morphology Not Reportable Sodium Potassium Chloride Carbon Dioxide Anion Gap BUN Creatinine Estimated GFR BUN/Creatinine Ratio Glucose POC Glucose 137 H 139 H Calcium 03/24/19 03/25/19 03/25/19 23:51 04:45 04:45 WBC 4.6 RBC 2.35 L Hgb 7.5 L Hct 23.4 L MCV 100 H MCH 32 MCHC 32 RDW 24.7 H Plt Count 197 WBC Morphology Sodium 146 H Potassium 4.2 Chloride 114.1 H Carbon Dioxide 25 Anion Gap 11 BUN 15 Creatinine 0.7 Estimated GFR > 60 BUN/Creatinine Ratio 21 Glucose 117 H POC Glucose 131 H Calcium 8.5 Medications & Allergies - Medications Allergies/Adverse Reactions: Allergies No Known Allergies Allergy (Verified 01/06/17 23:38) Per son Home Medications: Home Medications Medication Instructions Recorded Confirmed Last Taken Type Folic Acid [Folvite] 1 mg PO QDAY #30 tablet 08/12/18 03/10/19 03/09/19 Rx Haloperidol [Haldol] 0.5 mg PO Q6H PRN #30 tablet 08/12/18 03/10/19 03/10/19 Rx Lactulose [Cephulac] 20 gm PO Q12H #1 bottle 08/12/18 03/10/19 03/09/19 Rx Rifaximin [Xifaxan] 550 mg PO BID #60 tablet 08/12/18 03/10/19 03/09/19 Rx Thiamine [Vitamin B-1] 100 mg PO QDAY #30 tablet 08/12/18 03/10/19 03/09/19 Rx amLODIPine 5 mg PO QDAY #30 tablet 08/12/18 03/10/19 03/09/19 Rx chlordiazePOXIDE [Librium] 25 mg PO DAILY #3 capsule 08/12/18 03/10/19 03/09/19 Rx ALBUTEROL NEB's [Proventil] 2.5 mg IH TID PRN 02/06/19 03/10/19 03/09/19 History Acetaminophen [Tylenol] 650 mg PO Q6HR PRN 02/06/19 03/10/19 03/09/19 History Fluticasone [Flonase] 1 spray NS QDAY 02/06/19 03/10/19 03/09/19 History Ipratropium/Albuterol Sulfate 1 spray IH QID 02/06/19 03/10/19 03/09/19 History [Combivent Respimat] Melatonin [Melatonin 10MG CAP] 10 mg PO QHS 02/06/19 03/10/19 03/09/19 History Active Medications: Generic Name Dose Route Start Last Admin Trade Name Freq PRN Reason Stop Dose Admin Acetaminophen 650 mg 03/10/19 17:46 Tylenol PO Q4H PRN Pain MILD(1-3)/Fever >100.5/GUERRERO Albuterol 2.5 mg 03/11/19 03:52 Proventil IH TID PRN Wheezing Albuterol/Ipratropium 1 ampul 03/11/19 08:00 03/25/19 01:27 Duoneb *Not For Prn Use* IH 1 ampul Q6HRT CONNIE Administration Lipase/Protease/Amylase 1 each 03/14/19 13:25 Pancremartine Sahni 10,500 Unit FEEDTUBE PRN PRN For Clogged Feeding Tube Dextrose 50 ml 03/10/19 22:27 03/14/19 17:55 D50w (25gm) Syringe IV 50 ml Q30MIN PRN Administration Hypoglycemia Famotidine 20 mg 03/22/19 10:00 03/24/19 22:18 Pepcid PO 20 mg BID CONNIE Administration Fluticasone Propionate 50 mcg 03/11/19 10:00 03/24/19 10:39 Flonase NS 50 mcg QDAY CONNIE Administration Folic Acid 1 mg 03/11/19 10:00 03/24/19 10:38 Folvite PO 1 mg QDAY CONNIE Administration Haloperidol 0.5 mg 03/11/19 03:52 03/12/19 09:32 Haldol PO 0.5 mg Q6H PRN Administration Agitation Hydrophilic Ointment 1 applic 03/14/19 06:51 Vaseline Lip Therapy TP Q2HR PRN Dry Lips Propofol 1,000 mg in 100 mls @ 2.587 mls/hr 03/14/19 07:00 03/14/19 12:00 Diprivan 10 Mg/Ml IV 0 mcg/kg/min TITR CONNIE 0 mls/hr Titration Protocol 5 MCG/KG/MIN Fentanyl Citrate 2,000 mcg in 100 mls @ 4.312 mls/hr 03/14/19 11:00 03/18/19 21:00 Fentanyl Drip Premix IV 2 mcg/kg/hr TITR CONNIE 8.623 mls/hr Titration Protocol 1 MCG/KG/HR Vasopressin 20 unit/ Sodium 101 mls @ 9.09 mls/hr 03/14/19 14:00 03/18/19 12:30 Chloride IV Infused TITR CONNIE Titration Protocol 0.03 UNITS/MIN Dopamine HCl/Dextrose 800 mg in 250 mls @ 3.234 mls/hr 03/14/19 22:00 03/18/19 08:45 Intropin Drip 800 Mg/D5w 250 Ml IV 0 mcg/kg/min TITR CONNIE 0 mls/hr Titration Protocol 2 MCG/KG/MIN Sodium Chloride 500 mls @ 15 mls/hr 03/17/19 20:00 Nacl 0.9% 500 Ml IV PRN ON LICENSE OF [facility] Insulin Human Lispro 0 unit 03/11/19 00:00 03/24/19 22:18 Humalog SUB-Q Not Given Q6HR ON LICENSE OF [facility] Protocol Morphine Sulfate 2 mg 03/10/19 17:56 03/24/19 22:18 Morphine IV 2 mg Q4H PRN Administration Pain, Moderate (4-6) Multi-Ingred Cream/Lotion/Oil/Oint 1 applic 03/14/19 06:51 03/20/19 10:22 Artificial Tears Ophth Oint OU 0.35 applic Q4HR PRN Administration Dry Eye(s) Ondansetron HCl 4 mg 03/10/19 17:46 03/11/19 05:04 Zofran IV 4 mg Q8H PRN Administration Nausea And Vomiting Rifaximin 550 mg 03/11/19 10:00 03/24/19 22:18 Xifaxan PO 550 mg BID CONNIE Administration Scopolamine 1 each 03/20/19 15:00 03/23/19 15:46 Transderm-Scop TD 1 each Q3D CONNIE Administration Simple Syrup 15 ml 03/14/19 13:25 Simple Syrup FEEDTUBE PRN PRN Hypoglycemia Simple Syrup 30 ml 03/14/19 13:25 Simple Syrup FEEDTUBE PRN PRN Hypoglycemia Sodium Bicarbonate 325 mg 03/14/19 13:25 Sodium Bicarbonate FEEDTUBE PRN PRN For Clogged Feeding Tube Sodium Chloride 10 ml 03/10/19 22:00 03/24/19 22:18 Sodium Chloride Flush Syringe 10 Ml IV 10 ml BID CONNIE Administration Sodium Chloride 10 ml 03/10/19 17:46 03/13/19 22:50 Sodium Chloride Flush Syringe 10 Ml IV 10 ml PRN PRN Administration LINE FLUSH Thiamine HCl 100 mg 03/11/19 10:00 03/24/19 10:39 Vitamin B-1 PO 100 mg QDAY CONNIE Administration
[2019-03-25] MEDS: MORPHINE 2 MG/1 ML INJ IV PRN ×2 (08:45→13:41)
[2019-03-25] MEDS: ENOXAPARIN 40 MG/0.4 ML INJ SUB-Q SCH (09:52)
[2019-03-25] MEDS: FAMOTIDINE 20 MG TAB PO SCH ×2 (09:52→21:27)
[2019-03-25] MEDS: FOLIC ACID 1 MG TAB PO SCH (09:53)
[2019-03-25] MEDS: THIAMINE 100 MG TAB PO SCH (09:53)
[2019-03-25] MEDS: FLUTICASONE PROPIONATE NASAL SPRAY 16 GM NS SCH (09:54)
[2019-03-25] MEDS: RIFAXIMIN 550 MG TAB PO SCH ×2 (10:21→21:27)
--- NOTE | 2019-03-25 10:29 | Progress Note ---
Assessment and Plan Severe sepsis with septic shock - resolved Cardiac arrest-asystole with ROSC Acute hypoxic respiratory failure on MVS Lactic acidosis- multifactorial ( resolved) Acute toxic- metabolic encephalopathy( improving) Aspiration pneumonia VRE UTI Hypernatremia Thrombocytopenia h/o Cirrhosis h/o Alcohol abuse disorder KERRI Hyperkalemia -Patient remains mechanical ventilator support via ETT. Not tolerating PSV tria ls and continues to fail. Discussed extensively with her sister at the bedside the need for tracheostomy, she is agreeable. Will place surgical consult Increase free water flushes for hypernatremia Oral secretions are improving, continue with secretion management Avoid delirium, maintenance of sleep-wake cycle Continue with mobility and off loading to avoid pressure ulcer Discussed with ICU team during IDT rounds - Continue daily PSV as tolerated -VAP bundle addressed -Aspiration precautions, HOB>40 degrees - Lung protective strategies -Wean FIO2 for O2 sats>90% -CXR, ABG prn -CBC, BMP in am -Avoid nephrotoxins and adjust all medications fro GFR and CrCL -Continue tube feedings -Agitation management, Pain management -Completed course of antibiotics, monitor off antibiotics for now -Continue contact isolation - Continue VTE prophylaxis - Continue stress ulcer prophylaxis - Accuchecks with glycemic control for SSI (Target blood glucose of 140-180 mg/dL; avoid hypoglycemia) - Continue mobility protocol for pressure ulcer prevention - Continue to monitor hemodynamics closely -Monitor electrolyte profile closely and replete as indicated CONDITION: CRITICAL PROGNOSIS: GUARDED CODE STATUS: FULL CODE The high probability of a clinically significant, sudden or life-threatening deterioration of the [respiratory, cardiovascular, neurology, hematology] system(s) required my full and direct attention, intervention and personal management. The aggregate critical care time was [35] minutes without overlap. Time includes spent on; [x] Data Review and interpretation [x] Patient assessment and monitoring of vital signs [x] Documentation [x] Medication orders and management Subjective Date of service: 03/25/19 Principal diagnosis: anemia Interval history: Follow up for severe sepsis with septic shock; acute hypoxemic respiratory failure on MVS; s/p cardiac arrest with ROSC; VRE UTI; aspiration pneumonia; Patient seen and examined. Vitals, labs, medications, chart and imaging reviewed. Events overnight were managed remotely no fevers, no vomiting; weaning supplemental oxygen, failing on high PS at 16 to generate tidal volumes of 300. More awake Remains critically ill on full ventilatory support No fevers documented, no vomiting, has diarrhea with a FMS Objective Vital Signs - 12hr 03/24/19 03/24/19 03/24/19 22:30 23:00 23:05 Temperature Pulse Rate 80 80 77 Pulse Rate [ Anterior Bilateral] Pulse Rate [ From Monitor] Respiratory 13 18 15 Rate Respiratory Rate [Anterior Bilateral] Blood Pressure 88/47 103/65 103/65 O2 Sat by Pulse 99 100 99 Oximetry 03/24/19 03/24/19 03/25/19 23:27 23:30 00:00 Temperature 95.7 F L Pulse Rate 80 85 Pulse Rate [ Anterior Bilateral] Pulse Rate [ 74 From Monitor] Respiratory 15 18 Rate Respiratory Rate [Anterior Bilateral] Blood Pressure 111/61 103/65 O2 Sat by Pulse 96 97 Oximetry 03/25/19 03/25/19 03/25/19 00:30 01:00 01:25 Temperature Pulse Rate 82 87 Pulse Rate [ 83 Anterior Bilateral] Pulse Rate [ From Monitor] Respiratory 15 15 Rate Respiratory 26 H Rate [Anterior Bilateral] Blood Pressure 92/62 90/54 O2 Sat by Pulse 96 97 Oximetry 03/25/19 03/25/19 03/25/19 01:30 02:00 02:30 Temperature Pulse Rate 87 91 H 93 H Pulse Rate [ Anterior Bilateral] Pulse Rate [ From Monitor] Respiratory 19 17 18 Rate Respiratory Rate [Anterior Bilateral] Blood Pressure 111/56 120/70 121/64 O2 Sat by Pulse 100 100 100 Oximetry 03/25/19 03/25/19 03/25/19 03:00 03:30 04:00 Temperature Pulse Rate 94 H 92 H 95 H Pulse Rate [ Anterior Bilateral] Pulse Rate [ 80 From Monitor] Respiratory 17 22 23 Rate Respiratory Rate [Anterior Bilateral] Blood Pressure 123/65 116/60 116/60 O2 Sat by Pulse 100 100 99 Oximetry 03/25/19 03/25/19 03/25/19 04:30 04:46 05:00 Temperature 99.3 F Pulse Rate 94 H 98 H Pulse Rate [ Anterior Bilateral] Pulse Rate [ From Monitor] Respiratory 22 20 Rate Respiratory Rate [Anterior Bilateral] Blood Pressure 125/63 116/70 O2 Sat by Pulse 100 100 Oximetry 03/25/19 03/25/19 03/25/19 05:27 05:30 06:00 Temperature Pulse Rate 94 H 99 H 95 H Pulse Rate [ Anterior Bilateral] Pulse Rate [ From Monitor] Respiratory 14 13 Rate Respiratory Rate [Anterior Bilateral] Blood Pressure 116/70 130/65 126/66 O2 Sat by Pulse 99 99 100 Oximetry 03/25/19 03/25/19 03/25/19 06:30 07:00 07:30 Temperature Pulse Rate 97 H 96 H 96 H Pulse Rate [ Anterior Bilateral] Pulse Rate [ From Monitor] Respiratory 23 18 20 Rate Respiratory Rate [Anterior Bilateral] Blood Pressure 128/70 136/94 138/77 O2 Sat by Pulse 100 100 100 Oximetry 03/25/19 03/25/19 03/25/19 08:00 08:30 09:00 Temperature 100.9 F H Pulse Rate 97 H 111 H 96 H Pulse Rate [ 96 H Anterior Bilateral] Pulse Rate [ 80 From Monitor] Respiratory 13 17 11 L Rate Respiratory 24 Rate [Anterior Bilateral] Blood Pressure 150/72 144/76 136/67 O2 Sat by Pulse 100 95 100 Oximetry 03/25/19 03/25/19 03/25/19 09:10 09:30 10:00 Temperature Pulse Rate 113 H 100 H 94 H Pulse Rate [ Anterior Bilateral] Pulse Rate [ From Monitor] Respiratory 25 H 19 27 H Rate Respiratory Rate [Anterior Bilateral] Blood Pressure 136/67 136/72 136/67 O2 Sat by Pulse 96 100 100 Oximetry Constitutional: alert, appears uncomfortable, other (elderly looking obese AAF with mild respiratory distress on MVS ) Eyes: non-icteric ENT: oropharynx moist, other (ETT 23 cm JA) Neck: supple, no lymphadenopathy, no JVD, other Effort: mildly labored Ascultation: Bilateral: diminished breath sounds, rales (scant in bases), rhonchi Percussion: Bilateral: not dull Cardiovascular: regular rate and rhythm, other (S1, S2, no murmurs, gallops or rubs rhythm strip shows accelerated junctional ) Gastrointestinal: normoactive bowel sounds, soft, non-tender, non-distended, other (No HSM) Integumentary: normal Extremities: no cyanosis, no edema, pulses normal, no ischemia or petechiae Neurologic: non-focal exam (grossly), pupils equal and round Psychiatric: other (unable to assess) CBC and BMP: 03/25/19 04:45 03/25/19 04:45 ABG, PT/INR, D-dimer: ABG POC ABG pH 7.500 (7.35-7.45) H 03/23/19 04:37 ABG pH 7.379 pH Units (7.350-7.450) 03/24/19 04:36 POC ABG pCO2 39.6 (35-45) 03/23/19 04:37 ABG pCO2 43.0 mm Hg 03/24/19 04:36 POC ABG pO2 60 (80-105) L 03/23/19 04:37 ABG pO2 104.6 mm Hg (80.0-90.0) H 03/24/19 04:36 POC ABG HCO3 30.8 (22-26 mml/L) 03/23/19 04:37 POC ABG Total CO2 32 (23-27mmol/L) 03/23/19 04:37 POC ABG O2 Sat 93 03/23/19 04:37 ABG O2 Saturation 97.7 % (95.0-99.0) 03/24/19 04:36 Abnormal lab findings: Abnormal Labs 03/10/19 03/10/19 03/10/19 13:16 13:16 14:38 WBC 0.8 L* RBC 3.35 L Hgb Hct MCV RDW 22.1 H Plt Count 78 L Lymph % (Auto) Lymph # Seg Neutrophils % Seg Neuts % (Manual) Lymphocytes % (Manual) 49.0 H Monocytes % (Manual) Eosinophils % (Manual) Nucleated RBC % Seg Neutrophils # Man 0.3 L Lymphocytes # (Manual) 0.4 L POC ABG pH ABG pH POC ABG pCO2 POC ABG pO2 ABG pO2 ABG HCO3 ABG Base Excess ABG Hemoglobin Oxyhemoglobin Sodium 147 H Potassium 5.4 H Chloride 111.8 H Carbon Dioxide BUN Creatinine 0.6 L Glucose POC Glucose Lactic Acid Calcium TIBC Ferritin AST 128 H ALT 79 H Alkaline Phosphatase 174 H Total Creatine Kinase CK-MB (CK-2) CK-MB (CK-2) Rel Index Troponin T Total Protein Albumin 2.4 L Urine WBC (Auto) 9.0 H Vancomycin Trough 03/10/19 03/10/19 03/11/19 21:22 23:36 07:29 WBC RBC Hgb Hct MCV RDW Plt Count Lymph % (Auto) Lymph # Seg Neutrophils % Seg Neuts % (Manual) Lymphocytes % (Manual) Monocytes % (Manual) Eosinophils % (Manual) Nucleated RBC % Seg Neutrophils # Man Lymphocytes # (Manual) POC ABG pH ABG pH POC ABG pCO2 POC ABG pO2 ABG pO2 ABG HCO3 ABG Base Excess ABG Hemoglobin Oxyhemoglobin Sodium 148 H Potassium 5.6 H Chloride 122.3 H Carbon Dioxide 20 L BUN Creatinine 0.6 L Glucose POC Glucose 65 L 112 H Lactic Acid Calcium TIBC Ferritin AST 102 H ALT 65 H Alkaline Phosphatase 134 H Total Creatine Kinase CK-MB (CK-2) CK-MB (CK-2) Rel Index Troponin T Total Protein 6.1 L Albumin 1.8 L Urine WBC (Auto) Vancomycin Trough 03/11/19 03/11/19 03/11/19 11:25 15:28 18:00 WBC 1.2 L* RBC Hgb Hct MCV RDW 22.1 H Plt Count 53 L Lymph % (Auto) Lymph # Seg Neutrophils % Seg Neuts % (Manual) 78.6 H Lymphocytes % (Manual) 9.5 L Monocytes % (Manual) 9.5 H Eosinophils % (Manual) Nucleated RBC % Seg Neutrophils # Man 0.9 L Lymphocytes # (Manual) 0.1 L POC ABG pH ABG pH POC ABG pCO2 POC ABG pO2 ABG pO2 ABG HCO3 ABG Base Excess ABG Hemoglobin Oxyhemoglobin Sodium Potassium Chloride Carbon Dioxide BUN Creatinine Glucose POC Glucose 117 H 118 H Lactic Acid Calcium TIBC Ferritin AST ALT Alkaline Phosphatase Total Creatine Kinase CK-MB (CK-2) CK-MB (CK-2) Rel Index Troponin T Total Protein Albumin Urine WBC (Auto) Vancomycin Trough 03/12/19 03/12/19 03/12/19 00:19 05:45 08:55 WBC 2.4 L RBC 3.33 L Hgb Hct MCV RDW 22.8 H Plt Count 58 L Lymph % (Auto) Lymph # Seg Neutrophils % Seg Neuts % (Manual) 93.0 H Lymphocytes % (Manual) 4.0 L Monocytes % (Manual) Eosinophils % (Manual) Nucleated RBC % 7.0 H Seg Neutrophils # Man Lymphocytes # (Manual) 0.1 L POC ABG pH ABG pH POC ABG pCO2 POC ABG pO2 ABG pO2 ABG HCO3 ABG Base Excess ABG Hemoglobin Oxyhemoglobin Sodium Potassium Chloride Carbon Dioxide BUN Creatinine Glucose POC Glucose 124 H 116 H Lactic Acid Calcium TIBC Ferritin AST ALT Alkaline Phosphatase Total Creatine Kinase CK-MB (CK-2) CK-MB (CK-2) Rel Index Troponin T Total Protein Albumin Urine WBC (Auto) Vancomycin Trough 03/12/19 03/13/19 03/13/19 08:55 00:18 03:48 WBC 2.7 L RBC 3.06 L Hgb 9.4 L Hct 29.4 L MCV RDW 23.1 H Plt Count 62 L Lymph % (Auto) Lymph # Seg Neutrophils % Seg Neuts % (Manual) 76.0 H Lymphocytes % (Manual) Monocytes % (Manual) Eosinophils % (Manual) Nucleated RBC % 11.0 H Seg Neutrophils # Man Lymphocytes # (Manual) 0.5 L POC ABG pH ABG pH POC ABG pCO2 POC ABG pO2 ABG pO2 ABG HCO3 ABG Base Excess ABG Hemoglobin Oxyhemoglobin Sodium Potassium 5.6 H Chloride 114.2 H Carbon Dioxide 21 L BUN Creatinine Glucose POC Glucose 119 H Lactic Acid Calcium TIBC Ferritin AST ALT Alkaline Phosphatase Total Creatine Kinase CK-MB (CK-2) CK-MB (CK-2) Rel Index Troponin T Total Protein Albumin Urine WBC (Auto) Vancomycin Trough 03/13/19 03/13/19 03/13/19 03:48 05:52 05:58 WBC RBC Hgb Hct MCV RDW Plt Count Lymph % (Auto) Lymph # Seg Neutrophils % Seg Neuts % (Manual) Lymphocytes % (Manual) Monocytes % (Manual) Eosinophils % (Manual) Nucleated RBC % Seg Neutrophils # Man Lymphocytes # (Manual) POC ABG pH ABG pH POC ABG pCO2 POC ABG pO2 ABG pO2 ABG HCO3 ABG Base Excess ABG Hemoglobin Oxyhemoglobin Sodium Potassium Chloride 112.7 H Carbon Dioxide 21 L BUN Creatinine Glucose 103 H POC Glucose 114 H Lactic Acid Calcium TIBC Ferritin AST ALT Alkaline Phosphatase Total Creatine Kinase CK-MB (CK-2) CK-MB (CK-2) Rel Index Troponin T Total Protein Albumin Urine WBC (Auto) Vancomycin Trough 39.7 H 03/13/19 03/13/19 03/14/19 12:12 18:00 00:17 WBC RBC Hgb Hct MCV RDW Plt Count Lymph % (Auto) Lymph # Seg Neutrophils % Seg Neuts % (Manual) Lymphocytes % (Manual) Monocytes % (Manual) Eosinophils % (Manual) Nucleated RBC % Seg Neutrophils # Man Lymphocytes # (Manual) POC ABG pH ABG pH POC ABG pCO2 POC ABG pO2 ABG pO2 ABG HCO3 ABG Base Excess ABG Hemoglobin Oxyhemoglobin Sodium Potassium Chloride Carbon Dioxide BUN Creatinine Glucose POC Glucose 116 H 132 H 130 H Lactic Acid Calcium TIBC Ferritin AST ALT Alkaline Phosphatase Total Creatine Kinase CK-MB (CK-2) CK-MB (CK-2) Rel Index Troponin T Total Protein Albumin Urine WBC (Auto) Vancomycin Trough 03/14/19 03/14/19 03/14/19 05:24 06:44 06:44 WBC 2.6 L RBC 3.00 L Hgb 9.2 L Hct 28.3 L MCV RDW 22.5 H Plt Count 44 L Lymph % (Auto) Lymph # Seg Neutrophils % Seg Neuts % (Manual) 75.0 H Lymphocytes % (Manual) Monocytes % (Manual) Eosinophils % (Manual) 5.0 H Nucleated RBC % 19.0 H Seg Neutrophils # Man Lymphocytes # (Manual) 0.4 L POC ABG pH ABG pH POC ABG pCO2 POC ABG pO2 ABG pO2 ABG HCO3 ABG Base Excess ABG Hemoglobin Oxyhemoglobin Sodium Potassium Chloride 110.2 H Carbon Dioxide 21 L BUN Creatinine 1.3 H Glucose POC Glucose 110 H Lactic Acid Calcium TIBC Ferritin AST 144 H ALT 90 H Alkaline Phosphatase 226 H Total Creatine Kinase CK-MB (CK-2) 8.6 H CK-MB (CK-2) Rel Index 7.1 H Troponin T 0.056 H D Total Protein Albumin 2.2 L Urine WBC (Auto) Vancomycin Trough 03/14/19 03/14/19 03/14/19 09:05 11:54 12:15 WBC RBC Hgb Hct MCV RDW Plt Count Lymph % (Auto) Lymph # Seg Neutrophils % Seg Neuts % (Manual) Lymphocytes % (Manual) Monocytes % (Manual) Eosinophils % (Manual) Nucleated RBC % Seg Neutrophils # Man Lymphocytes # (Manual) POC ABG pH 7.283 L 7.458 H ABG pH POC ABG pCO2 54.9 H 32.7 L POC ABG pO2 76 L ABG pO2 ABG HCO3 ABG Base Excess ABG Hemoglobin Oxyhemoglobin Sodium Potassium Chloride Carbon Dioxide BUN Creatinine Glucose POC Glucose Lactic Acid 2.10 H* Calcium TIBC Ferritin AST ALT Alkaline Phosphatase Total Creatine Kinase CK-MB (CK-2) CK-MB (CK-2) Rel Index Troponin T Total Protein Albumin Urine WBC (Auto) Vancomycin Trough 03/14/19 03/14/19 03/14/19 12:43 13:35 15:35 WBC RBC Hgb Hct MCV RDW Plt Count Lymph % (Auto) Lymph # Seg Neutrophils % Seg Neuts % (Manual) Lymphocytes % (Manual) Monocytes % (Manual) Eosinophils % (Manual) Nucleated RBC % Seg Neutrophils # Man Lymphocytes # (Manual) POC ABG pH ABG pH POC ABG pCO2 POC ABG pO2 ABG pO2 ABG HCO3 ABG Base Excess ABG Hemoglobin Oxyhemoglobin Sodium Potassium Chloride Carbon Dioxide BUN Creatinine Glucose POC Glucose 68 L Lactic Acid 2.10 H* 3.50 H* Calcium TIBC Ferritin AST ALT Alkaline Phosphatase Total Creatine Kinase CK-MB (CK-2) CK-MB (CK-2) Rel Index Troponin T Total Protein Albumin Urine WBC (Auto) Vancomycin Trough 03/14/19 03/14/19 03/14/19 17:34 17:46 17:55 WBC RBC Hgb Hct MCV RDW Plt Count Lymph % (Auto) Lymph # Seg Neutrophils % Seg Neuts % (Manual) Lymphocytes % (Manual) Monocytes % (Manual) Eosinophils % (Manual) Nucleated RBC % Seg Neutrophils # Man Lymphocytes # (Manual) POC ABG pH 7.241 L 7.244 L ABG pH POC ABG pCO2 50.4 H 50.1 H POC ABG pO2 156 H ABG pO2 ABG HCO3 ABG Base Excess ABG Hemoglobin Oxyhemoglobin Sodium Potassium Chloride Carbon Dioxide BUN Creatinine Glucose POC Glucose 49 L Lactic Acid Calcium TIBC Ferritin AST ALT Alkaline Phosphatase Total Creatine Kinase CK-MB (CK-2) CK-MB (CK-2) Rel Index Troponin T Total Protein Albumin Urine WBC (Auto) Vancomycin Trough 03/14/19 03/14/19 03/14/19 18:29 18:32 20:27 WBC RBC Hgb Hct MCV RDW Plt Count Lymph % (Auto) Lymph # Seg Neutrophils % Seg Neuts % (Manual) Lymphocytes % (Manual) Monocytes % (Manual) Eosinophils % (Manual) Nucleated RBC % Seg Neutrophils # Man Lymphocytes # (Manual) POC ABG pH ABG pH POC ABG pCO2 POC ABG pO2 ABG pO2 ABG HCO3 ABG Base Excess ABG Hemoglobin Oxyhemoglobin Sodium Potassium Chloride 112.6 H Carbon Dioxide 19 L BUN Creatinine 1.4 H Glucose 132 H POC Glucose 57 L 115 H Lactic Acid Calcium TIBC Ferritin AST ALT Alkaline Phosphatase Total Creatine Kinase CK-MB (CK-2) CK-MB (CK-2) Rel Index Troponin T Total Protein Albumin Urine WBC (Auto) Vancomycin Trough 03/14/19 03/14/19 03/15/19 23:47 Unknown 04:00 WBC RBC 2.77 L Hgb 8.5 L Hct 27.3 L MCV 98 H RDW 23.0 H Plt Count 27 L Lymph % (Auto) Lymph # Seg Neutrophils % Seg Neuts % (Manual) 75.0 H Lymphocytes % (Manual) 1.0 L Monocytes % (Manual) Eosinophils % (Manual) Nucleated RBC % 4.0 H Seg Neutrophils # Man Lymphocytes # (Manual) 0.1 L POC ABG pH ABG pH POC ABG pCO2 POC ABG pO2 ABG pO2 ABG HCO3 ABG Base Excess ABG Hemoglobin Oxyhemoglobin Sodium Potassium Chloride Carbon Dioxide BUN Creatinine Glucose POC Glucose 116 H Lactic Acid 3.30 H* Calcium TIBC Ferritin AST ALT Alkaline Phosphatase Total Creatine Kinase CK-MB (CK-2) CK-MB (CK-2) Rel Index Troponin T Total Protein Albumin Urine WBC (Auto) Vancomycin Trough 03/15/19 03/15/19 03/15/19 04:00 06:24 07:35 WBC RBC Hgb Hct MCV RDW Plt Count Lymph % (Auto) Lymph # Seg Neutrophils % Seg Neuts % (Manual) Lymphocytes % (Manual) Monocytes % (Manual) Eosinophils % (Manual) Nucleated RBC % Seg Neutrophils # Man Lymphocytes # (Manual) POC ABG pH 7.282 L ABG pH POC ABG pCO2 50.4 H POC ABG pO2 71 L ABG pO2 ABG HCO3 ABG Base Excess ABG Hemoglobin Oxyhemoglobin Sodium Potassium Chloride 112.1 H Carbon Dioxide 19 L BUN Creatinine 1.5 H Glucose 123 H POC Glucose 140 H Lactic Acid Calcium 8.2 L TIBC Ferritin AST ALT Alkaline Phosphatase Total Creatine Kinase CK-MB (CK-2) CK-MB (CK-2) Rel Index Troponin T Total Protein Albumin Urine WBC (Auto) Vancomycin Trough 03/15/19 03/15/19 03/16/19 11:47 23:25 04:33 WBC RBC Hgb Hct MCV RDW Plt Count Lymph % (Auto) Lymph # Seg Neutrophils % Seg Neuts % (Manual) Lymphocytes % (Manual) Monocytes % (Manual) Eosinophils % (Manual) Nucleated RBC % Seg Neutrophils # Man Lymphocytes # (Manual) POC ABG pH ABG pH 7.304 L POC ABG pCO2 POC ABG pO2 ABG pO2 174.4 H ABG HCO3 19.2 L ABG Base Excess -6.6 L ABG Hemoglobin 8.5 L Oxyhemoglobin Sodium Potassium Chloride Carbon Dioxide BUN Creatinine Glucose POC Glucose 161 H 139 H Lactic Acid Calcium TIBC Ferritin AST ALT Alkaline Phosphatase Total Creatine Kinase CK-MB (CK-2) CK-MB (CK-2) Rel Index Troponin T Total Protein Albumin Urine WBC (Auto) Vancomycin Trough 03/16/19 03/16/19 03/16/19 05:19 05:19 05:19 WBC RBC 2.92 L Hgb 8.9 L Hct 28.0 L MCV RDW 22.8 H Plt Count 42 L Lymph % (Auto) Lymph # Seg Neutrophils % Seg Neuts % (Manual) 84.0 H Lymphocytes % (Manual) 5.0 L Monocytes % (Manual) Eosinophils % (Manual) Nucleated RBC % Seg Neutrophils # Man 7.8 H Lymphocytes # (Manual) 0.5 L POC ABG pH ABG pH POC ABG pCO2 POC ABG pO2 ABG pO2 ABG HCO3 ABG Base Excess ABG Hemoglobin Oxyhemoglobin Sodium Potassium 5.2 H Chloride 114.0 H Carbon Dioxide 18 L BUN 22 H Creatinine 1.7 H Glucose 109 H POC Glucose Lactic Acid Calcium 8.0 L TIBC Ferritin AST ALT Alkaline Phosphatase Total Creatine Kinase 194 H CK-MB (CK-2) CK-MB (CK-2) Rel Index Troponin T Total Protein Albumin Urine WBC (Auto) Vancomycin Trough 03/16/19 03/16/19 03/16/19 05:51 12:19 17:42 WBC RBC Hgb Hct MCV RDW Plt Count Lymph % (Auto) Lymph # Seg Neutrophils % Seg Neuts % (Manual) Lymphocytes % (Manual) Monocytes % (Manual) Eosinophils % (Manual) Nucleated RBC % Seg Neutrophils # Man Lymphocytes # (Manual) POC ABG pH ABG pH POC ABG pCO2 POC ABG pO2 ABG pO2 ABG HCO3 ABG Base Excess ABG Hemoglobin Oxyhemoglobin Sodium Potassium Chloride Carbon Dioxide BUN Creatinine Glucose POC Glucose 123 H 134 H 130 H Lactic Acid Calcium TIBC Ferritin AST ALT Alkaline Phosphatase Total Creatine Kinase CK-MB (CK-2) CK-MB (CK-2) Rel Index Troponin T Total Protein Albumin Urine WBC (Auto) Vancomycin Trough 03/17/19 03/17/19 03/17/19 00:46 04:45 04:45 WBC RBC 2.42 L Hgb 7.5 L Hct 23.4 L MCV RDW 22.2 H Plt Count 37 L Lymph % (Auto) 6.2 L Lymph # 0.5 L Seg Neutrophils % 84.0 H Seg Neuts % (Manual) Lymphocytes % (Manual) Monocytes % (Manual) Eosinophils % (Manual) Nucleated RBC % Seg Neutrophils # Man Lymphocytes # (Manual) POC ABG pH ABG pH POC ABG pCO2 POC ABG pO2 ABG pO2 ABG HCO3 ABG Base Excess ABG Hemoglobin Oxyhemoglobin Sodium Potassium Chloride 115.4 H Carbon Dioxide 16 L BUN 27 H Creatinine 1.8 H Glucose 109 H POC Glucose 115 H Lactic Acid Calcium 7.9 L TIBC Ferritin AST ALT Alkaline Phosphatase Total Creatine Kinase CK-MB (CK-2) CK-MB (CK-2) Rel Index Troponin T Total Protein Albumin Urine WBC (Auto) Vancomycin Trough 03/17/19 03/17/19 03/17/19 05:00 06:05 11:15 WBC RBC Hgb Hct MCV RDW Plt Count Lymph % (Auto) Lymph # Seg Neutrophils % Seg Neuts % (Manual) Lymphocytes % (Manual) Monocytes % (Manual) Eosinophils % (Manual) Nucleated RBC % Seg Neutrophils # Man Lymphocytes # (Manual) POC ABG pH ABG pH 7.238 L POC ABG pCO2 POC ABG pO2 ABG pO2 114.7 H ABG HCO3 17.9 L ABG Base Excess -8.8 L ABG Hemoglobin 7.3 L Oxyhemoglobin Sodium Potassium Chloride Carbon Dioxide BUN Creatinine Glucose POC Glucose 124 H Lactic Acid Calcium TIBC 127 L Ferritin AST ALT Alkaline Phosphatase Total Creatine Kinase CK-MB (CK-2) CK-MB (CK-2) Rel Index Troponin T Total Protein Albumin Urine WBC (Auto) Vancomycin Trough 03/17/19 03/17/19 03/17/19 11:15 12:06 18:27 WBC RBC Hgb Hct MCV RDW Plt Count Lymph % (Auto) Lymph # Seg Neutrophils % Seg Neuts % (Manual) Lymphocytes % (Manual) Monocytes % (Manual) Eosinophils % (Manual) Nucleated RBC % Seg Neutrophils # Man Lymphocytes # (Manual) POC ABG pH ABG pH POC ABG pCO2 POC ABG pO2 ABG pO2 ABG HCO3 ABG Base Excess ABG Hemoglobin Oxyhemoglobin Sodium Potassium Chloride Carbon Dioxide BUN Creatinine Glucose POC Glucose 133 H 158 H Lactic Acid Calcium TIBC Ferritin 512.4 H AST ALT Alkaline Phosphatase Total Creatine Kinase CK-MB (CK-2) CK-MB (CK-2) Rel Index Troponin T Total Protein Albumin Urine WBC (Auto) Vancomycin Trough 03/17/19 03/18/19 03/18/19 23:30 04:00 05:45 WBC RBC 2.31 L Hgb 7.0 L Hct 22.0 L MCV RDW 22.2 H Plt Count 45 L Lymph % (Auto) Lymph # Seg Neutrophils % Seg Neuts % (Manual) 82.0 H Lymphocytes % (Manual) 12.0 L Monocytes % (Manual) Eosinophils % (Manual) 5.0 H Nucleated RBC % 1.0 H Seg Neutrophils # Man Lymphocytes # (Manual) 0.8 L POC ABG pH ABG pH POC ABG pCO2 POC ABG pO2 ABG pO2 113.7 H ABG HCO3 ABG Base Excess -3.0 L ABG Hemoglobin 7.0 L Oxyhemoglobin Sodium Potassium Chloride Carbon Dioxide BUN Creatinine Glucose POC Glucose 143 H Lactic Acid Calcium TIBC Ferritin AST ALT Alkaline Phosphatase Total Creatine Kinase CK-MB (CK-2) CK-MB (CK-2) Rel Index Troponin T Total Protein Albumin Urine WBC (Auto) Vancomycin Trough 03/18/19 03/18/19 03/18/19 05:48 05:50 14:01 WBC RBC Hgb Hct MCV RDW Plt Count Lymph % (Auto) Lymph # Seg Neutrophils % Seg Neuts % (Manual) Lymphocytes % (Manual) Monocytes % (Manual) Eosinophils % (Manual) Nucleated RBC % Seg Neutrophils # Man Lymphocytes # (Manual) POC ABG pH 7.299 L ABG pH POC ABG pCO2 48.7 H POC ABG pO2 ABG pO2 ABG HCO3 ABG Base Excess ABG Hemoglobin Oxyhemoglobin Sodium Potassium Chloride 109.9 H Carbon Dioxide BUN 28 H Creatinine 1.5 H Glucose 128 H POC Glucose 118 H Lactic Acid Calcium 7.6 L TIBC Ferritin AST ALT Alkaline Phosphatase Total Creatine Kinase CK-MB (CK-2) CK-MB (CK-2) Rel Index Troponin T Total Protein Albumin Urine WBC (Auto) Vancomycin Trough 03/18/19 03/19/19 03/19/19 23:53 04:43 06:02 WBC RBC Hgb Hct MCV RDW Plt Count Lymph % (Auto) Lymph # Seg Neutrophils % Seg Neuts % (Manual) Lymphocytes % (Manual) Monocytes % (Manual) Eosinophils % (Manual) Nucleated RBC % Seg Neutrophils # Man Lymphocytes # (Manual) POC ABG pH ABG pH 7.332 L POC ABG pCO2 POC ABG pO2 ABG pO2 116.2 H ABG HCO3 ABG Base Excess -3.3 L ABG Hemoglobin 7.3 L Oxyhemoglobin 94.9 L Sodium Potassium Chloride Carbon Dioxide BUN Creatinine Glucose POC Glucose 130 H 122 H Lactic Acid Calcium TIBC Ferritin AST ALT Alkaline Phosphatase Total Creatine Kinase CK-MB (CK-2) CK-MB (CK-2) Rel Index Troponin T Total Protein Albumin Urine WBC (Auto) Vancomycin Trough 03/19/19 03/19/19 03/19/19 12:16 15:33 23:44 WBC RBC Hgb Hct MCV RDW Plt Count Lymph % (Auto) Lymph # Seg Neutrophils % Seg Neuts % (Manual) Lymphocytes % (Manual) Monocytes % (Manual) Eosinophils % (Manual) Nucleated RBC % Seg Neutrophils # Man Lymphocytes # (Manual) POC ABG pH 7.316 L ABG pH POC ABG pCO2 45.7 H POC ABG pO2 ABG pO2 ABG HCO3 ABG Base Excess ABG Hemoglobin Oxyhemoglobin Sodium Potassium Chloride Carbon Dioxide BUN Creatinine Glucose POC Glucose 132 H 106 H Lactic Acid Calcium TIBC Ferritin AST ALT Alkaline Phosphatase Total Creatine Kinase CK-MB (CK-2) CK-MB (CK-2) Rel Index Troponin T Total Protein Albumin Urine WBC (Auto) Vancomycin Trough 03/20/19 03/20/19 03/20/19 01:00 EST 04:27 12:06 WBC RBC Hgb Hct MCV RDW Plt Count Lymph % (Auto) Lymph # Seg Neutrophils % Seg Neuts % (Manual) Lymphocytes % (Manual) Monocytes % (Manual) Eosinophils % (Manual) Nucleated RBC % Seg Neutrophils # Man Lymphocytes # (Manual) POC ABG pH ABG pH POC ABG pCO2 POC ABG pO2 ABG pO2 121.6 H ABG HCO3 ABG Base Excess ABG Hemoglobin 7.1 L Oxyhemoglobin Sodium Potassium 3.4 L Chloride 111.7 H Carbon Dioxide BUN 29 H Creatinine Glucose POC Glucose 134 H Lactic Acid Calcium 8.0 L TIBC Ferritin AST ALT Alkaline Phosphatase Total Creatine Kinase CK-MB (CK-2) CK-MB (CK-2) Rel Index Troponin T Total Protein Albumin Urine WBC (Auto) Vancomycin Trough 03/20/19 03/20/19 03/21/19 18:09 23:36 05:42 WBC RBC Hgb Hct MCV RDW Plt Count Lymph % (Auto) Lymph # Seg Neutrophils % Seg Neuts % (Manual) Lymphocytes % (Manual) Monocytes % (Manual) Eosinophils % (Manual) Nucleated RBC % Seg Neutrophils # Man Lymphocytes # (Manual) POC ABG pH ABG pH POC ABG pCO2 POC ABG pO2 ABG pO2 ABG HCO3 ABG Base Excess ABG Hemoglobin Oxyhemoglobin Sodium Potassium Chloride Carbon Dioxide BUN Creatinine Glucose POC Glucose 133 H 114 H 116 H Lactic Acid Calcium TIBC Ferritin AST ALT Alkaline Phosphatase Total Creatine Kinase CK-MB (CK-2) CK-MB (CK-2) Rel Index Troponin T Total Protein Albumin Urine WBC (Auto) Vancomycin Trough 03/21/19 03/21/19 03/21/19 08:12 14:09 17:51 WBC 3.9 L RBC 2.25 L Hgb 7.1 L Hct 21.6 L MCV RDW 21.6 H Plt Count 105 L Lymph % (Auto) Lymph # Seg Neutrophils % Seg Neuts % (Manual) Lymphocytes % (Manual) 13.0 L Monocytes % (Manual) 13.0 H Eosinophils % (Manual) Nucleated RBC % Seg Neutrophils # Man Lymphocytes # (Manual) 0.5 L POC ABG pH ABG pH POC ABG pCO2 POC ABG pO2 120 H ABG pO2 ABG HCO3 ABG Base Excess ABG Hemoglobin Oxyhemoglobin Sodium Potassium Chloride Carbon Dioxide BUN Creatinine Glucose POC Glucose 145 H Lactic Acid Calcium TIBC Ferritin AST ALT Alkaline Phosphatase Total Creatine Kinase CK-MB (CK-2) CK-MB (CK-2) Rel Index Troponin T Total Protein Albumin Urine WBC (Auto) Vancomycin Trough 03/22/19 03/22/19 03/22/19 05:36 11:10 11:39 WBC RBC Hgb Hct MCV RDW Plt Count Lymph % (Auto) Lymph # Seg Neutrophils % Seg Neuts % (Manual) Lymphocytes % (Manual) Monocytes % (Manual) Eosinophils % (Manual) Nucleated RBC % Seg Neutrophils # Man Lymphocytes # (Manual) POC ABG pH ABG pH POC ABG pCO2 POC ABG pO2 ABG pO2 ABG HCO3 ABG Base Excess ABG Hemoglobin Oxyhemoglobin Sodium 149 H Potassium Chloride 115.6 H Carbon Dioxide BUN 20 H Creatinine Glucose 109 H POC Glucose 106 H 124 H Lactic Acid Calcium TIBC Ferritin AST ALT Alkaline Phosphatase Total Creatine Kinase CK-MB (CK-2) CK-MB (CK-2) Rel Index Troponin T Total Protein Albumin Urine WBC (Auto) Vancomycin Trough 03/22/19 03/22/19 03/22/19 12:04 18:36 Unknown WBC 4.2 L RBC 2.45 L Hgb 7.6 L Hct 23.9 L MCV 98 H RDW 22.2 H Plt Count Lymph % (Auto) Lymph # Seg Neutrophils % Seg Neuts % (Manual) Lymphocytes % (Manual) Monocytes % (Manual) Eosinophils % (Manual) Nucleated RBC % Seg Neutrophils # Man Lymphocytes # (Manual) POC ABG pH 7.285 L ABG pH POC ABG pCO2 55.4 H POC ABG pO2 ABG pO2 ABG HCO3 ABG Base Excess ABG Hemoglobin Oxyhemoglobin Sodium Potassium Chloride Carbon Dioxide BUN Creatinine Glucose POC Glucose 120 H Lactic Acid Calcium TIBC Ferritin AST ALT Alkaline Phosphatase Total Creatine Kinase CK-MB (CK-2) CK-MB (CK-2) Rel Index Troponin T Total Protein Albumin Urine WBC (Auto) Vancomycin Trough 03/23/19 03/23/19 03/23/19 04:37 05:12 05:30 WBC 4.2 L RBC 2.22 L Hgb 7.0 L Hct 21.4 L MCV RDW 21.5 H Plt Count Lymph % (Auto) Lymph # Seg Neutrophils % Seg Neuts % (Manual) Lymphocytes % (Manual) Monocytes % (Manual) Eosinophils % (Manual) Nucleated RBC % Seg Neutrophils # Man Lymphocytes # (Manual) POC ABG pH 7.500 H ABG pH POC ABG pCO2 POC ABG pO2 60 L ABG pO2 ABG HCO3 ABG Base Excess ABG Hemoglobin Oxyhemoglobin Sodium Potassium Chloride Carbon Dioxide BUN Creatinine Glucose POC Glucose 106 H Lactic Acid Calcium TIBC Ferritin AST ALT Alkaline Phosphatase Total Creatine Kinase CK-MB (CK-2) CK-MB (CK-2) Rel Index Troponin T Total Protein Albumin Urine WBC (Auto) Vancomycin Trough 03/23/19 03/23/19 03/23/19 05:30 11:50 18:11 WBC RBC Hgb Hct MCV RDW Plt Count Lymph % (Auto) Lymph # Seg Neutrophils % Seg Neuts % (Manual) Lymphocytes % (Manual) Monocytes % (Manual) Eosinophils % (Manual) Nucleated RBC % Seg Neutrophils # Man Lymphocytes # (Manual) POC ABG pH ABG pH POC ABG pCO2 POC ABG pO2 ABG pO2 ABG HCO3 ABG Base Excess ABG Hemoglobin Oxyhemoglobin Sodium 149 H Potassium Chloride 114.7 H Carbon Dioxide BUN 19 H Creatinine Glucose POC Glucose 118 H 107 H Lactic Acid Calcium 8.3 L TIBC Ferritin AST ALT Alkaline Phosphatase Total Creatine Kinase CK-MB (CK-2) CK-MB (CK-2) Rel Index Troponin T Total Protein Albumin Urine WBC (Auto) Vancomycin Trough 03/23/19 03/24/19 03/24/19 23:23 04:36 04:42 WBC 4.0 L RBC 2.46 L Hgb 7.9 L Hct 24.4 L MCV 99 H RDW 23.5 H Plt Count Lymph % (Auto) Lymph # Seg Neutrophils % Seg Neuts % (Manual) Lymphocytes % (Manual) Monocytes % (Manual) Eosinophils % (Manual) Nucleated RBC % Seg Neutrophils # Man Lymphocytes # (Manual) POC ABG pH ABG pH POC ABG pCO2 POC ABG pO2 ABG pO2 104.6 H ABG HCO3 ABG Base Excess ABG Hemoglobin 7.1 L Oxyhemoglobin Sodium Potassium Chloride Carbon Dioxide BUN Creatinine Glucose POC Glucose 112 H Lactic Acid Calcium TIBC Ferritin AST ALT Alkaline Phosphatase Total Creatine Kinase CK-MB (CK-2) CK-MB (CK-2) Rel Index Troponin T Total Protein Albumin Urine WBC (Auto) Vancomycin Trough 03/24/19 03/24/19 03/24/19 04:42 06:03 12:24 WBC RBC Hgb Hct MCV RDW Plt Count Lymph % (Auto) Lymph # Seg Neutrophils % Seg Neuts % (Manual) Lymphocytes % (Manual) Monocytes % (Manual) Eosinophils % (Manual) Nucleated RBC % Seg Neutrophils # Man Lymphocytes # (Manual) POC ABG pH ABG pH POC ABG pCO2 POC ABG pO2 ABG pO2 ABG HCO3 ABG Base Excess ABG Hemoglobin Oxyhemoglobin Sodium 149 H Potassium Chloride 115.7 H Carbon Dioxide BUN 18 H Creatinine Glucose 128 H POC Glucose 136 H 137 H Lactic Acid Calcium 8.3 L TIBC Ferritin AST ALT Alkaline Phosphatase Total Creatine Kinase CK-MB (CK-2) CK-MB (CK-2) Rel Index Troponin T Total Protein Albumin Urine WBC (Auto) Vancomycin Trough 03/24/19 03/24/19 03/25/19 17:48 23:51 04:45 WBC RBC 2.35 L Hgb 7.5 L Hct 23.4 L MCV 100 H RDW 24.7 H Plt Count Lymph % (Auto) Lymph # Seg Neutrophils % Seg Neuts % (Manual) Lymphocytes % (Manual) Monocytes % (Manual) Eosinophils % (Manual) Nucleated RBC % Seg Neutrophils # Man Lymphocytes # (Manual) POC ABG pH ABG pH POC ABG pCO2 POC ABG pO2 ABG pO2 ABG HCO3 ABG Base Excess ABG Hemoglobin Oxyhemoglobin Sodium Potassium Chloride Carbon Dioxide BUN Creatinine Glucose POC Glucose 139 H 131 H Lactic Acid Calcium TIBC Ferritin AST ALT Alkaline Phosphatase Total Creatine Kinase CK-MB (CK-2) CK-MB (CK-2) Rel Index Troponin T Total Protein Albumin Urine WBC (Auto) Vancomycin Trough 03/25/19 04:45 WBC RBC Hgb Hct MCV RDW Plt Count Lymph % (Auto) Lymph # Seg Neutrophils % Seg Neuts % (Manual) Lymphocytes % (Manual) Monocytes % (Manual) Eosinophils % (Manual) Nucleated RBC % Seg Neutrophils # Man Lymphocytes # (Manual) POC ABG pH ABG pH POC ABG pCO2 POC ABG pO2 ABG pO2 ABG HCO3 ABG Base Excess ABG Hemoglobin Oxyhemoglobin Sodium 146 H Potassium Chloride 114.1 H Carbon Dioxide BUN Creatinine Glucose 117 H POC Glucose Lactic Acid Calcium TIBC Ferritin AST ALT Alkaline Phosphatase Total Creatine Kinase CK-MB (CK-2) CK-MB (CK-2) Rel Index Troponin T Total Protein Albumin Urine WBC (Auto) Vancomycin Trough Chest x-ray: image reviewed Allied health notes reviewed: RT
[2019-03-25] MEDS: INSULIN LISPRO 100 UNIT/ML SUB-Q SCH (12:05)
--- NOTE | 2019-03-25 12:27 | Progress Note ---
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 ID consult appreciated KERRI is due to ATN and vasomotor nephropathy: -monitor cr level, stable and improved VRE UTI, septic shock, sepsis POA: resolved abx per ID, off vasopressors since 03/17/19, still in contact isolation Thrombocytopenia: likely 2/2 sepsis, stable Acute Metabolic encephalopathy with agitation: Probably due to the acute infection Acute on chronic Pancytopenia: continue to monitor levels, Oncology consulted Hypernatremia: probably 2/2 dehydration- improved on IV D5W- monitor BMP closely Hyperkalemia: s/p kayexalate, resolved Hypoglycemia: On hypoglycemic protocol H/o Chronic liver disease: Continue lactulose and rifaximin Nutrition: Continue tube feeding DVT prophylaxis: On SCDs due to thrombocytopenia Disposition: continue inpatient care, Prognosis is guarded/poor Tracheostomy/PEG anticipated. History Interval history: Patient was seen and examined. Follow-up on current diagnosis of AMS, respiratory failure, Not on Vasopressin or Dopamine IV drip at bedside. Patient eyes are open. No overnight events reported to me. Imaging, nursing note, chart, labs and old chart reviewed. Hospitalist Physical - Physical exam Narrative exam: Gen: critically ill, awake, eyes open, intubated not sedated on PS HEENT: NCAT, EOMI, PERRL, OP with ETT and NGT Neck: supple, no adenopathy, no thyromegaly, no JVD CVS/Heart: RRR, normal S1S2, pulses present bilaterally Chest/Lungs: Symmetrical chest expansion, good air entry bilaterally GI/Abdomen: soft, NTND, good bowel sounds, no guarding or rebound /Bladder: no suprapubic tenderness, no CVA or paraspinal tenderness Extermity/Skin: right neck IJ TLC MSK: sFROM x 4 Neuro: CN 2-12 grossly intact, doesn't follow commands Psych: calm - Constitutional Vitals: Temp Pulse Resp BP Pulse Ox 99.5 F 89 22 142/79 97 03/25/19 12:00 03/25/19 12:10 03/25/19 12:10 03/25/19 12:10 03/25/19 12:10 General appearance: Present: no acute distress, other (mildly agitated) Results - Labs CBC & Chem 7: 03/25/19 04:45 03/25/19 04:45 Labs: Laboratory Last Values WBC 4.6 K/mm3 (4.5-11.0) 03/25/19 04:45 RBC 2.35 M/mm3 (3.65-5.03) L 03/25/19 04:45 Hgb 7.5 gm/dl (10.1-14.3) L 03/25/19 04:45 Hct 23.4 % (30.3-42.9) L 03/25/19 04:45 MCV 100 fl (79-97) H 03/25/19 04:45 MCH 32 pg (28-32) 03/25/19 04:45 MCHC 32 % (30-34) 03/25/19 04:45 RDW 24.7 % (13.2-15.2) H 03/25/19 04:45 Plt Count 197 K/mm3 (140-440) 03/25/19 04:45 Lymph % (Auto) 6.2 % (13.4-35.0) L 03/17/19 04:45 Rhea % (Auto) Dinking Machine Operator 03/21/19 08:12 Eos % (Auto) 3.2 % (0.0-4.3) 03/17/19 04:45 Baso % (Auto) 0.2 % (0.0-1.8) 03/17/19 04:45 Lymph # 0.5 K/mm3 (1.2-5.4) L 03/17/19 04:45 Rhea # 0.6 K/mm3 (0.0-0.8) 03/17/19 04:45 Eos # 0.3 K/mm3 (0.0-0.4) 03/17/19 04:45 Baso # 0.0 K/mm3 (0.0-0.1) 03/17/19 04:45 Add Manual Diff Complete 03/21/19 08:12 Total Counted 100 03/21/19 08:12 Seg Neutrophils % 84.0 % (40.0-70.0) H 03/17/19 04:45 Seg Neuts % (Manual) 67.0 % (40.0-70.0) 03/21/19 08:12 Band Neutrophils % 2.0 % 03/21/19 08:12 Lymphocytes % (Manual) 13.0 % (13.4-35.0) L 03/21/19 08:12 Reactive Lymphs % (Man) 1.0 % 03/21/19 08:12 Monocytes % (Manual) 13.0 % (0.0-7.3) H 03/21/19 08:12 Eosinophils % (Manual) 3.0 % (0.0-4.3) 03/21/19 08:12 Basophils % (Manual) 0 % (0.0-1.8) 03/21/19 08:12 Metamyelocytes % 1.0 % 03/21/19 08:12 Myelocytes % 0 % 03/21/19 08:12 Promyelocytes % 0 % 03/21/19 08:12 Blast Cells % 0 % 03/21/19 08:12 Nucleated RBC % Not Reportable 03/21/19 08:12 Seg Neutrophils # 7.2 K/mm3 (1.8-7.7) 03/17/19 04:45 Seg Neutrophils # Man 2.6 K/mm3 (1.8-7.7) 03/21/19 08:12 Band Neutrophils # 0.1 K/mm3 03/21/19 08:12 Lymphocytes # (Manual) 0.5 K/mm3 (1.2-5.4) L 03/21/19 08:12 Abs React Lymphs (Man) 0.0 K/mm3 03/21/19 08:12 Monocytes # (Manual) 0.5 K/mm3 (0.0-0.8) 03/21/19 08:12 Eosinophils # (Manual) 0.1 K/mm3 (0.0-0.4) 03/21/19 08:12 Basophils # (Manual) 0.0 K/mm3 (0.0-0.1) 03/21/19 08:12 Metamyelocytes # 0.0 K/mm3 03/21/19 08:12 Myelocytes # 0.0 K/mm3 03/21/19 08:12 Promyelocytes # 0.0 K/mm3 03/21/19 08:12 Blast Cells # 0.0 K/mm3 03/21/19 08:12 Pathologist Review 03/18/19 05:45 WBC Morphology Not Reportable 03/21/19 08:12 Hypersegmented Neuts Not Reportable 03/21/19 08:12 Hyposegmented Neuts Not Reportable 03/21/19 08:12 Hypogranular Neuts Not Reportable 03/21/19 08:12 Smudge Cells Not Reportable 03/21/19 08:12 Toxic Granulation Not Reportable 03/21/19 08:12 Toxic Vacuolation Not Reportable 03/21/19 08:12 Dohle Bodies Not Reportable 03/21/19 08:12 Pelger-Huet Anomaly Not Reportable 03/21/19 08:12 Sheila Rods Not Reportable 03/21/19 08:12 Platelet Estimate Consistent w auto 03/21/19 08:12 Clumped Platelets Not Reportable 03/21/19 08:12 Plt Clumps, EDTA Not Reportable 03/21/19 08:12 Large Platelets Not Reportable 03/21/19 08:12 Giant Platelets Not Reportable 03/21/19 08:12 Platelet Satelliting Not Reportable 03/21/19 08:12 Plt Morphology Comment Not Reportable 03/21/19 08:12 RBC Morphology Not Reportable 03/21/19 08:12 Dimorphic RBCs Not Reportable 03/21/19 08:12 Polychromasia Not Reportable 03/21/19 08:12 Hypochromasia Not Reportable 03/21/19 08:12 Poikilocytosis Not Reportable 03/21/19 08:12 Anisocytosis 1+ 03/21/19 08:12 Microcytosis Not Reportable 03/21/19 08:12 Macrocytosis 1+ 03/21/19 08:12 Spherocytes Not Reportable 03/21/19 08:12 Pappenheimer Bodies Not Reportable 03/21/19 08:12 Sickle Cells Not Reportable 03/21/19 08:12 Target Cells Few 03/21/19 08:12 Tear Drop Cells Not Reportable 03/21/19 08:12 Ovalocytes Not Reportable 03/21/19 08:12 Helmet Cells Not Reportable 03/21/19 08:12 [place] Bodies Not Reportable 03/21/19 08:12 [place] Rings Not Reportable 03/21/19 08:12 [place] Cells Not Reportable 03/21/19 08:12 Bite Cells Not Reportable 03/21/19 08:12 Crenated Cell Not Reportable 03/21/19 08:12 Elliptocytes Not Reportable 03/21/19 08:12 Acanthocytes (Spur) Not Reportable 03/21/19 08:12 Rouleaux Not Reportable 03/21/19 08:12 Hemoglobin C Crystals Not Reportable 03/21/19 08:12 Schistocytes Not Reportable 03/21/19 08:12 Malaria parasites Not Reportable 03/21/19 08:12 [place] Bodies Not Reportable 03/21/19 08:12 Hem Pathologist Commnt No 03/21/19 08:12 POC ABG pH 7.500 (7.35-7.45) H 03/23/19 04:37 ABG pH 7.379 pH Units (7.350-7.450) 03/24/19 04:36 POC ABG pCO2 39.6 (35-45) 03/23/19 04:37 ABG pCO2 43.0 mm Hg 03/24/19 04:36 POC ABG pO2 60 (80-105) L 03/23/19 04:37 ABG pO2 104.6 mm Hg (80.0-90.0) H 03/24/19 04:36 POC ABG HCO3 30.8 (22-26 mml/L) 03/23/19 04:37 ABG HCO3 24.8 mmol/L (20.0-26.0) 03/24/19 04:36 POC ABG Total CO2 32 (23-27mmol/L) 03/23/19 04:37 POC ABG O2 Sat 93 03/23/19 04:37 ABG O2 Saturation 97.7 % (95.0-99.0) 03/24/19 04:36 ABG O2 Content 9.7 (0.0-44) 03/24/19 04:36 POC ABG Base Excess 8 ((-2) - (+3)mmol/L) 03/23/19 04:37 ABG Base Excess -0.3 mmol/L (-2.0-3.0) 03/24/19 04:36 ABG Hemoglobin 7.1 gm/dl (12.0-16.0) L 03/24/19 04:36 ABG Carboxyhemoglobin 2.4 % (0.0-5.0) 03/24/19 04:36 ABG Methemoglobin 0.4 % (0.0-1.5) 03/24/19 04:36 Oxyhemoglobin 95.0 % (95.0-99.0) 03/24/19 04:36 FiO2 25 % 03/24/19 04:36 Sodium 146 mmol/L (137-145) H 03/25/19 04:45 Potassium 4.2 mmol/L (3.6-5.0) 03/25/19 04:45 Chloride 114.1 mmol/L (98-107) H 03/25/19 04:45 Carbon Dioxide 25 mmol/L (22-30) 03/25/19 04:45 Anion Gap 11 mmol/L 03/25/19 04:45 BUN 15 mg/dL (7-17) 03/25/19 04:45 Creatinine 0.7 mg/dL (0.7-1.2) 03/25/19 04:45 Estimated GFR > 60 ml/min 03/25/19 04:45 BUN/Creatinine Ratio 21 % 03/25/19 04:45 Glucose 117 mg/dL (65-100) H 03/25/19 04:45 POC Glucose 131 (70-105) H 03/24/19 23:51 Hemoglobin A1c 4.6 % (4-6) 03/10/19 13:16 Lactic Acid 0.80 mmol/L (0.7-2.0) 03/21/19 13:05 Calcium 8.5 mg/dL (8.4-10.2) 03/25/19 04:45 Iron 81 ug/dL (37-170) 03/17/19 11:15 TIBC 127 mcg/dL (250-450) L 03/17/19 11:15 Ferritin 512.4 ng/mL (13.0-400.0) H 03/17/19 11:15 Total Bilirubin 0.50 mg/dL (0.1-1.2) 03/14/19 06:44 AST 144 units/L (5-40) H 03/14/19 06:44 ALT 90 units/L (7-56) H 03/14/19 06:44 Alkaline Phosphatase 226 units/L (35-129) H 03/14/19 06:44 Ammonia 54.0 umol/L (25-60) 03/11/19 07:29 Total Creatine Kinase 194 units/L (30-135) H 03/16/19 05:19 CK-MB (CK-2) 8.6 ng/mL (0.0-4.0) H 03/14/19 06:44 CK-MB (CK-2) Rel Index 7.1 (0-4) H 03/14/19 06:44 Troponin T 0.056 ng/mL (0.00-0.029) H D 03/14/19 06:44 Total Protein 6.7 g/dL (6.3-8.2) 03/14/19 06:44 Albumin 2.2 g/dL (3.9-5) L 03/14/19 06:44 Albumin/Globulin Ratio 0.5 % 03/14/19 06:44 Triglycerides 62 mg/dL (2-149) 03/14/19 06:44 Cholesterol 133 mg/dL (50-199) 03/14/19 06:44 LDL Cholesterol Direct 89 mg/dL (50-130) 03/14/19 06:44 HDL Cholesterol 43 mg/dL (40-59) 03/14/19 06:44 Cholesterol/HDL Ratio 3.09 % 03/14/19 06:44 Procalcitonin 1.19 ng/mL (<0.15) 03/21/19 13:05 Urine Color Straw (Yellow) 03/10/19 14:38 Urine Turbidity Clear (Clear) 03/10/19 14:38 Urine pH 7.0 (5.0-7.0) 03/10/19 14:38 Ur Specific [place] 1.009 (1.003-1.030) 03/10/19 14:38 Urine Protein <15 mg/dl mg/dL (Negative) 03/10/19 14:38 Urine Glucose (UA) Neg mg/dL (Negative) 03/10/19 14:38 Urine Ketones Neg mg/dL (Negative) 03/10/19 14:38 Urine Blood Neg (Negative) 03/10/19 14:38 Urine Nitrite Neg (Negative) 03/10/19 14:38 Urine Bilirubin Neg (Negative) 03/10/19 14:38 Urine Urobilinogen < 2.0 mg/dL (<2.0) 03/10/19 14:38 Ur Leukocyte Esterase Sm (Negative) 03/10/19 14:38 Urine WBC (Auto) 9.0 /HPF (0.0-6.0) H 03/10/19 14:38 Urine RBC (Auto) 2.0 /HPF (0.0-6.0) 03/10/19 14:38 U Epithel Cells (Auto) 1.0 /HPF (0-13.0) 03/10/19 14:38 Urine Bacteria (Auto) 2+ /HPF (Negative) 03/10/19 14:38 Urine Mucus Few /HPF 03/10/19 14:38 Vancomycin Trough 39.7 ug/mL (5.0-20.0) H 03/13/19 05:58 Random Vancomycin 27.6 ug/mL (0-40.0) 03/14/19 05:44 Active Medications - Current Medications Current Medications: Generic Name Dose Route Start Last Admin Trade Name Freq PRN Reason Stop Dose Admin Acetaminophen 650 mg 03/10/19 17:46 Tylenol PO Q4H PRN Pain MILD(1-3)/Fever >100.5/GUERRERO Albuterol 2.5 mg 03/11/19 03:52 Proventil IH TID PRN Wheezing Albuterol/Ipratropium 1 ampul 03/11/19 08:00 03/25/19 09:14 Duoneb *Not For Prn Use* IH 1 ampul Q6HRT CONNIE Administration Lipase/Protease/Amylase 1 each 03/14/19 13:25 Pancremartine Sahni 10,500 Unit FEEDTUBE PRN PRN For Clogged Feeding Tube Dextrose 50 ml 03/10/19 22:27 03/14/19 17:55 D50w (25gm) Syringe IV 50 ml Q30MIN PRN Administration Hypoglycemia Enoxaparin Sodium 40 mg 03/25/19 10:00 03/25/19 09:52 Enoxaparin SUB-Q 40 mg QDAY@1000 CONNIE Administration Famotidine 20 mg 03/22/19 10:00 03/25/19 09:52 Pepcid PO 20 mg BID CONNIE Administration Fluticasone Propionate 50 mcg 03/11/19 10:00 03/25/19 09:54 Flonase NS 50 mcg QDAY CONNIE Administration Folic Acid 1 mg 03/11/19 10:00 03/25/19 09:53 Folvite PO 1 mg QDAY CONNIE Administration Haloperidol 0.5 mg 03/11/19 03:52 03/12/19 09:32 Haldol PO 0.5 mg Q6H PRN Administration Agitation Hydrophilic Ointment 1 applic 03/14/19 06:51 Vaseline Lip Therapy TP Q2HR PRN Dry Lips Sodium Chloride 500 mls @ 15 mls/hr 03/17/19 20:00 Nacl 0.9% 500 Ml IV PRN [facility] Insulin Human Lispro 0 unit 03/11/19 00:00 03/24/19 22:18 Humalog SUB-Q Not Given Q6HR [facility] Protocol Morphine Sulfate 2 mg 03/10/19 17:56 03/25/19 08:45 Morphine IV 2 mg Q4H PRN Administration Pain, Moderate (4-6) Multi-Ingred Cream/Lotion/Oil/Oint 1 applic 03/14/19 06:51 03/20/19 10:22 Artificial Tears Ophth Oint OU 0.35 applic Q4HR PRN Administration Dry Eye(s) Ondansetron HCl 4 mg 03/10/19 17:46 03/11/19 05:04 Zofran IV 4 mg Q8H PRN Administration Nausea And Vomiting Rifaximin 550 mg 03/11/19 10:00 03/25/19 10:21 Xifaxan PO 550 mg BID CONNIE Administration Scopolamine 1 each 03/20/19 15:00 03/23/19 15:46 Transderm-Scop TD 1 each Q3D CONNIE Administration Simple Syrup 15 ml 03/14/19 13:25 Simple Syrup FEEDTUBE PRN PRN Hypoglycemia Simple Syrup 30 ml 03/14/19 13:25 Simple Syrup FEEDTUBE PRN PRN Hypoglycemia Sodium Bicarbonate 325 mg 03/14/19 13:25 Sodium Bicarbonate FEEDTUBE PRN PRN For Clogged Feeding Tube Sodium Chloride 10 ml 03/10/19 22:00 03/25/19 09:53 Sodium Chloride Flush Syringe 10 Ml IV 10 ml BID CONNIE Administration Sodium Chloride 10 ml 03/10/19 17:46 03/13/19 22:50 Sodium Chloride Flush Syringe 10 Ml IV 10 ml PRN PRN Administration LINE FLUSH Thiamine HCl 100 mg 03/11/19 10:00 03/25/19 09:53 Vitamin B-1 PO 100 mg QDAY CONNIE Administration Nutrition/Malnutrition Assess - Dietary Evaluation Nutrition/Malnutrition Findings: Nutrition Notes Start: 03/11/19 10:01 Freq: Status: Active Protocol: Document 03/24/19 12:19 AP (Rec: 03/24/19 12:32 AP [id number]) Co-Sign 03/24/19 12:19 LM Nutrition Notes Need for Assessment generated from: MD Order Initial or Follow up Reassessment Current Diagnosis COPD,Decubitus(Pressure Ulcer) ,Hypertension Other Pertinent Diagnosis AMS/nonverbal, Hep C, Anemia, Renal stones Current Diet Vital AF 1.2 at 55ml/hr Labs/Tests Na 149 Pertinent Medications Reviewed Height 5 ft 3 in Weight 102.2 kg [place] Body Weight (kg) 52.27 BMI 39.9 Weight Status Obese Subjective/Other Information F/U for TF rate/tolerance. Vital AF 1.2 running at 55ml/ hr. Pt to receive trach/PEG next week per RN. Percent of energy/protein needs met: 93%/94% Minimum of two criteria No Reduced Floor Broker Strength Measurably Reduced (severe) #1 Nutrition Diagnosis Inadequate oral intake Diagnosis Progress(for reassessment Continues documentation) Is patient on ventilator? Yes Is Patient Ambulatory and/or Out of Bed No REE-([facility]-confined to bed) 1842.456 Nutrition Intervention Change Diet Order: TF Nutrition Support: Vital AF 1.2 at 55ml/hr. Increase flush to 200ml q4h for hypernatremia. Once resolved flush 100ml q4h. Kcal 1,584 Protein (gm) 99 Fluid (mL) 1,071 Goal #1 TF tolerance Goal #2 TF continue to meet at least 80% of estimated energy and protein needs. Anticipated Discharge Needs: unable to determine at this time Follow-Up By: 03/28/19 Additional Comments F/U for TF tolerance, Na labs.
--- NOTE | 2019-03-25 15:25 | Progress Note ---
Assessment and Plan Cultures: 03/10 UCx - VRE faecim 03/10 BCx - NGTD 03/14 BCX - NGTD A/P: 68 yo F PMHx hepatitis C, Dm2, many other comorbidities admitted with altered mental status, possible secondary to VRE UTI: 1. VRE UTI - Resolved 2. Hepatitis C 3. DM2 - tight glycemic control for wound healing 4. Hypoxic respiratory failure secondary to aspiration pneumonia - Complted 7 days of pip-david. 5. Septic shock - initially due to VRE UTI/aspiration pneumonia. fevers have been recurrent, still requires full ventilator support and is on pressors. Would continue to monitor fevers, if they continue to recur would need to consider CT chest to fully evaluate lung pathology and may need to restart antibiotics. Recs: - off antibiotics, continue to monitor - Possible some element of central fevers. If fevers recur, would re-culture. - consider CT chest if she continues to fever GKyle Serena Stacy MD [facility] M: [phone] O: [phone] F: [phone] Subjective Date of service: 03/25/19 Principal diagnosis: anemia Interval history: remains intubated and sedated. Recurrent fevers overnight after cessation of antibiotics. Objective - Exam Narrative Exam: Constitutional: intubated, sedated Head, Ears, Nose: Normocephalic, atraumatic. External ears, nose normal Eyes: Conjunctivae/corneas clear. No icterus. No ptosis. Neck: Supple, no meningeal signs Oral: dentition fair, no thrush Cardiovascular: S1, S2 normal. Respiratory: Good air entry, clear to auscultation bilaterally GI: Soft, non-tender; bowel sounds normal. No peritoneal signs. Musculoskeletal: No pedal edema, no cyanosis. Skin: No rash or abscess Hem/Lymphatic: No palpable cervical or supraclavicular nodes. No lymphangitis Psych: Sedated Neurological: Intubated, sedated - Constitutional Vitals: Vital Signs Temp Pulse Resp BP Pulse Ox 98.0 F 86 16 110/61 97 03/25/19 12:57 03/25/19 15:00 03/25/19 15:00 03/25/19 15:00 03/25/19 14:30 Temperature -Last 24 Hours Temperature 98.0 F Temperature 99.5 F Temperature 100.9 F Temperature 100.9 F Temperature 99.3 F Temperature 95.7 F Temperature 95.1 F - Labs CBC & Chem 7: 03/25/19 04:45 03/25/19 04:45 Labs: Abnormal lab results 03/24/19 03/24/19 03/24/19 Range/Units 12:24 17:48 23:51 RBC (3.65-5.03) M/mm3 Hgb (10.1-14.3) gm/dl Hct (30.3-42.9) % MCV (79-97) fl RDW (13.2-15.2) % Sodium (137-145) mmol/L Chloride (98-107) mmol/L Glucose (65-100) mg/dL POC Glucose 137 H 139 H 131 H (70-105) 03/25/19 03/25/19 Range/Units 04:45 04:45 RBC 2.35 L (3.65-5.03) M/mm3 Hgb 7.5 L (10.1-14.3) gm/dl Hct 23.4 L (30.3-42.9) % MCV 100 H (79-97) fl RDW 24.7 H (13.2-15.2) % Sodium 146 H (137-145) mmol/L Chloride 114.1 H (98-107) mmol/L Glucose 117 H (65-100) mg/dL POC Glucose (70-105)
--- NOTE | 2019-03-25 16:37 | Consultation ---
History of Present Illness Consult date: 03/25/19 Chief complaint: 68 yo F who presented to ER with altered mental status. is a 68-year-old female that lives in a shelter that presents emergency room for altered mental status. Patient came to the ER with unknown amount of time of altered mental status. Patient is minimally responsive at baseline. Patient has multiple medical problems report she received from shelter. 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 - History of present illness History of present illness: 68 yo F with hx of HTN, hep C who lives in [place] was sent to ER for altered mental status. She is currently intubated and cannot communicate. She was admitted on 03/10/19 and a code blue was called on the patient on 03/14/19. She had ROSC after ACLS was performed and has been intubated since. Patient was found to be in septic shock due to VRE UTI. Surgery is consulted for evaluation for trach/peg as patient cannot be weaned from ventilator. Past History Past Medical History: hepatitis Past Surgical History: Other (Unabel to obtain secondary to mental status) Social history: other (Unabel to obtain secondary to mental status) Family history: other (Unabel to obtain secondary to mental status) Medications and Allergies Allergies Allergy/AdvReac Type Severity Reaction Status Date / Time No Known Allergies Allergy Verified 01/06/17 23:38 Home Medications Medication Instructions Recorded Confirmed Last Taken Type Folic Acid [Folvite] 1 mg PO QDAY #30 tablet 08/12/18 03/10/19 03/09/19 Rx Haloperidol [Haldol] 0.5 mg PO Q6H PRN #30 tablet 08/12/18 03/10/19 03/10/19 Rx Lactulose [Cephulac] 20 gm PO Q12H #1 bottle 08/12/18 03/10/19 03/09/19 Rx Rifaximin [Xifaxan] 550 mg PO BID #60 tablet 08/12/18 03/10/19 03/09/19 Rx Thiamine [Vitamin B-1] 100 mg PO QDAY #30 tablet 08/12/18 03/10/19 03/09/19 Rx amLODIPine 5 mg PO QDAY #30 tablet 08/12/18 03/10/19 03/09/19 Rx chlordiazePOXIDE [Librium] 25 mg PO DAILY #3 capsule 08/12/18 03/10/19 03/09/19 Rx ALBUTEROL NEB's [Proventil] 2.5 mg IH TID PRN 02/06/19 03/10/19 03/09/19 History Acetaminophen [Tylenol] 650 mg PO Q6HR PRN 02/06/19 03/10/19 03/09/19 History Fluticasone [Flonase] 1 spray NS QDAY 02/06/19 03/10/19 03/09/19 History Ipratropium/Albuterol Sulfate 1 spray IH QID 02/06/19 03/10/19 03/09/19 History [Combivent Respimat] Melatonin [Melatonin 10MG CAP] 10 mg PO QHS 02/06/19 03/10/19 03/09/19 History Active Meds: Active Medications Acetaminophen (Tylenol) 650 mg PO Q4H PRN PRN Reason: Pain MILD(1-3)/Fever >100.5/GUERRERO Albuterol (Proventil) 2.5 mg IH TID PRN PRN Reason: Wheezing Albuterol/Ipratropium (Duoneb *Not For Prn Use*) 1 ampul IH Q6HRT [facility] Last Admin: 03/25/19 15:03 Dose: 1 ampul Documented by: Lipase/Protease/Amylase (Roseann Sahni 10,500 Unit) 1 each FEEDTUBE PRN PRN PRN Reason: For Clogged Feeding Tube Dextrose (D50w (25gm) Syringe) 50 ml IV Q30MIN PRN PRN Reason: Hypoglycemia Last Admin: 03/14/19 17:55 Dose: 50 ml Documented by: Enoxaparin Sodium (Enoxaparin) 40 mg SUB-Q QDAY@1000 [facility] Last Admin: 03/25/19 09:52 Dose: 40 mg Documented by: Famotidine (Pepcid) 20 mg PO BID [facility] Last Admin: 03/25/19 09:52 Dose: 20 mg Documented by: Fluticasone Propionate (Flonase) 50 mcg NS QDAY [facility] Last Admin: 03/25/19 09:54 Dose: 50 mcg Documented by: Folic Acid (Folvite) 1 mg PO QDAY [facility] Last Admin: 03/25/19 09:53 Dose: 1 mg Documented by: Haloperidol (Haldol) 0.5 mg PO Q6H PRN PRN Reason: Agitation Last Admin: 03/12/19 09:32 Dose: 0.5 mg Documented by: Hydrophilic Ointment (Vaseline Lip Therapy) 1 applic TP Q2HR PRN PRN Reason: Dry Lips Sodium Chloride (Nacl 0.9% 500 Ml) 500 mls @ 15 mls/hr IV PRN [facility] Insulin Human Lispro (Humalog) 0 unit SUB-Q Q6HR [facility]; Protocol Last Admin: 03/25/19 12:05 Dose: Not Given Documented by: Morphine Sulfate (Morphine) 2 mg IV Q4H PRN PRN Reason: Pain, Moderate (4-6) Last Admin: 03/25/19 13:41 Dose: 2 mg Documented by: Multi-Ingred Cream/Lotion/Oil/Oint (Artificial Tears Ophth Oint) 1 applic OU Q4HR PRN PRN Reason: Dry Eye(s) Last Admin: 03/20/19 10:22 Dose: 0.35 applic Documented by: Ondansetron HCl (Zofran) 4 mg IV Q8H PRN PRN Reason: Nausea And Vomiting Last Admin: 03/11/19 05:04 Dose: 4 mg Documented by: Rifaximin (Xifaxan) 550 mg PO BID [facility] Last Admin: 03/25/19 10:21 Dose: 550 mg Documented by: Scopolamine (Transderm-Scop) 1 each TD Q3D [facility] Last Admin: 03/23/19 15:46 Dose: 1 each Documented by: Simple Syrup (Simple Syrup) 15 ml FEEDTUBE PRN PRN PRN Reason: Hypoglycemia Simple Syrup (Simple Syrup) 30 ml FEEDTUBE PRN PRN PRN Reason: Hypoglycemia Sodium Bicarbonate (Sodium Bicarbonate) 325 mg FEEDTUBE PRN PRN PRN Reason: For Clogged Feeding Tube Sodium Chloride (Sodium Chloride Flush Syringe 10 Ml) 10 ml IV BID [facility] Last Admin: 03/25/19 09:53 Dose: 10 ml Documented by: Sodium Chloride (Sodium Chloride Flush Syringe 10 Ml) 10 ml IV PRN PRN PRN Reason: LINE FLUSH Last Admin: 03/13/19 22:50 Dose: 10 ml Documented by: Thiamine HCl (Vitamin B-1) 100 mg PO QDAY [facility] Last Admin: 03/25/19 09:53 Dose: 100 mg Documented by: Review of Systems ROS unobtainable: due to endotracheal tube, due to mental status Exam Vital Signs Temp Pulse Resp BP Pulse Ox 98.0 F 57 L 18 135/68 100 03/10/19 13:09 03/10/19 13:09 03/10/19 13:09 03/10/19 13:09 03/10/19 13:09 Narrative exam: Gen: Intubated on vent. Opens eyes to voice. ENT: ETT and OGT in place. Trachea midline, no masses or LAD CV: s1, S2+ Resp: on CPAP mode on vent Abd: soft, NT, ND. no visible surgical scars Ext: no c/c/e Results - Labs 03/25/19 04:45 03/25/19 04:45 Abnormal lab results 03/24/19 03/24/19 03/25/19 Range/Units 17:48 23:51 04:45 RBC 2.35 L (3.65-5.03) M/mm3 Hgb 7.5 L (10.1-14.3) gm/dl Hct 23.4 L (30.3-42.9) % MCV 100 H (79-97) fl RDW 24.7 H (13.2-15.2) % Sodium (137-145) mmol/L Chloride (98-107) mmol/L Glucose (65-100) mg/dL POC Glucose 139 H 131 H (70-105) 03/25/19 Range/Units 04:45 RBC (3.65-5.03) M/mm3 Hgb (10.1-14.3) gm/dl Hct (30.3-42.9) % MCV (79-97) fl RDW (13.2-15.2) % Sodium 146 H (137-145) mmol/L Chloride 114.1 H (98-107) mmol/L Glucose 117 H (65-100) mg/dL POC Glucose (70-105) Diabetes panel 03/25/19 Range/Units 04:45 Sodium 146 H (137-145) mmol/L Potassium 4.2 (3.6-5.0) mmol/L Chloride 114.1 H (98-107) mmol/L Carbon Dioxide 25 (22-30) mmol/L BUN 15 (7-17) mg/dL Creatinine 0.7 (0.7-1.2) mg/dL Glucose 117 H (65-100) mg/dL Calcium 8.5 (8.4-10.2) mg/dL Calcium panel 03/25/19 Range/Units 04:45 Calcium 8.5 (8.4-10.2) mg/dL Pituitary panel 03/25/19 Range/Units 04:45 Sodium 146 H (137-145) mmol/L Potassium 4.2 (3.6-5.0) mmol/L Chloride 114.1 H (98-107) mmol/L Carbon Dioxide 25 (22-30) mmol/L BUN 15 (7-17) mg/dL Creatinine 0.7 (0.7-1.2) mg/dL Glucose 117 H (65-100) mg/dL Calcium 8.5 (8.4-10.2) mg/dL Adrenal panel 03/25/19 Range/Units 04:45 Sodium 146 H (137-145) mmol/L Potassium 4.2 (3.6-5.0) mmol/L Chloride 114.1 H (98-107) mmol/L Carbon Dioxide 25 (22-30) mmol/L BUN 15 (7-17) mg/dL Creatinine 0.7 (0.7-1.2) mg/dL Glucose 117 H (65-100) mg/dL Calcium 8.5 (8.4-10.2) mg/dL - Imaging Chest x-ray: report reviewed, image reviewed Assessment and Plan 68 yo F with 1. VDRF 2. septic shock 3. UTI 4. hepC 5. s/p code blue Plan: 1. continue vent management per critical care team 2. will reach out to son to obtain consent for procedures 3. will check with OR regarding next available time/date for trach/peg Thank you, please call with questions.
[2019-03-26] MEDS: IPRATROPIUM/ALBUTEROL SULFATE 3 ML AMPUL.NEB IH SCH ×4 (03:35→21:33)
[2019-03-26 06:16] LABS: BUN/Creatinine Ratio 23; Blood Urea Nitrogen 16 mg/dL (7-17); Calcium 8.4 mg/dL (8.4-10.2); Hemolysis Index 80
[2019-03-26] MEDS: INSULIN LISPRO 100 UNIT/ML SUB-Q SCH ×5 (06:41→20:18)
[2019-03-26 07:06] LABS: Hematocrit 23.4 % (30.3-42.9); Hemoglobin 7.5 gm/dl (10.1-14.3); Mean Corpuscular HGB Conc 32 % (30-34); Mean Corpuscular Volume 100 fl (79-97); Platelet Count 205 K/mm3 (140-440); Red Blood Count 2.35 M/mm3 (3.65-5.03)
[2019-03-26 07:24] LABS: Red Cell Distribution Width 25.1 % (13.2-15.2)
[2019-03-26] MEDS: RIFAXIMIN 550 MG TAB PO SCH ×2 (10:38→23:41)
[2019-03-26] MEDS: FOLIC ACID 1 MG TAB PO SCH (10:38)
[2019-03-26] MEDS: THIAMINE 100 MG TAB PO SCH (10:38)
[2019-03-26] MEDS: ENOXAPARIN 40 MG/0.4 ML INJ SUB-Q SCH (10:38)
[2019-03-26] MEDS: FAMOTIDINE 20 MG TAB PO SCH ×2 (10:38→23:41)
[2019-03-26] MEDS: FLUTICASONE PROPIONATE NASAL SPRAY 16 GM NS SCH (10:39)
--- NOTE | 2019-03-26 13:16 | Progress Note ---
Assessment and Plan Assessment and plan: Patient is a 68-year-old woman from [facility] with a history of hypertension, diabetes mellitus type 2, hep C, liver disease secondary to alcoholism and chronic renal disease who presented to [facility] ED with altered mental status, she is only minimally responsive at baseline Acute resp failure with hypoxia on mechanical ventilator> 96 hours: trach and PEG consideration at 7 days, Management per pega developer, daily weaning trials Septic shock/pneumonia: Continue antibiotics. ID consult appreciated KERRI is due to ATN and vasomotor nephropathy: -monitor cr level, stable and improved VRE UTI, septic shock, sepsis POA: resolved abx per ID, off vasopressors since 03/17/19, still in contact isolation Thrombocytopenia: likely 2/2 sepsis, stable Acute Metabolic encephalopathy with agitation: Probably due to the acute infection Acute on chronic Pancytopenia: continue to monitor levels, Oncology consulted Hypernatremia: probably 2/2 dehydration- improved on IV D5W- monitor BMP closely Hyperkalemia: s/p kayexalate, resolved Hypoglycemia: On hypoglycemic protocol H/o Chronic liver disease: Continue lactulose and rifaximin Nutrition: Continue tube feeding DVT prophylaxis: On SCDs due to thrombocytopenia Disposition: continue inpatient care, Prognosis is guarded/poor Tracheostomy/PEG anticipated. History Interval history: Patient was seen and examined. Follow-up on current diagnosis of AMS, respiratory failure, Not on Vasopressin or Dopamine IV drip at bedside. Patient eyes are open. No overnight events reported to me. Imaging, nursing note, chart, labs and old chart reviewed. Hospitalist Physical - Physical exam Narrative exam: Gen: critically ill, awake, eyes open, intubated not sedated on PS HEENT: NCAT, EOMI, PERRL, OP with ETT and NGT Neck: supple, no adenopathy, no thyromegaly, no JVD CVS/Heart: RRR, normal S1S2, pulses present bilaterally Chest/Lungs: Symmetrical chest expansion, good air entry bilaterally GI/Abdomen: soft, NTND, good bowel sounds, no guarding or rebound /Bladder: no suprapubic tenderness, no CVA or paraspinal tenderness Extermity/Skin: right neck IJ TLC MSK: sFROM x 4 Neuro: CN 2-12 grossly intact, doesn't follow commands Psych: calm - Constitutional Vitals: Temp Pulse Resp BP Pulse Ox 96.2 F L 82 19 152/84 98 03/26/19 12:00 03/26/19 12:00 03/26/19 12:00 03/26/19 12:00 03/26/19 12:00 General appearance: Present: no acute distress, other (mildly agitated) Results - Labs CBC & Chem 7: 03/26/19 06:50 03/26/19 04:40 Labs: Laboratory Last Values WBC 4.1 K/mm3 (4.5-11.0) L 03/26/19 06:50 RBC 2.35 M/mm3 (3.65-5.03) L 03/26/19 06:50 Hgb 7.5 gm/dl (10.1-14.3) L 03/26/19 06:50 Hct 23.4 % (30.3-42.9) L 03/26/19 06:50 MCV 100 fl (79-97) H 03/26/19 06:50 MCH 32 pg (28-32) 03/26/19 06:50 MCHC 32 % (30-34) 03/26/19 06:50 RDW 25.1 % (13.2-15.2) H 03/26/19 06:50 Plt Count 205 K/mm3 (140-440) 03/26/19 06:50 Lymph % (Auto) 6.2 % (13.4-35.0) L 03/17/19 04:45 Callahan % (Auto) Sales Contract Administrator 03/21/19 08:12 Eos % (Auto) 3.2 % (0.0-4.3) 03/17/19 04:45 Baso % (Auto) 0.2 % (0.0-1.8) 03/17/19 04:45 Lymph # 0.5 K/mm3 (1.2-5.4) L 03/17/19 04:45 Callahan # 0.6 K/mm3 (0.0-0.8) 03/17/19 04:45 Eos # 0.3 K/mm3 (0.0-0.4) 03/17/19 04:45 Baso # 0.0 K/mm3 (0.0-0.1) 03/17/19 04:45 Add Manual Diff Complete 03/21/19 08:12 Total Counted 100 03/21/19 08:12 Seg Neutrophils % 84.0 % (40.0-70.0) H 03/17/19 04:45 Seg Neuts % (Manual) 67.0 % (40.0-70.0) 03/21/19 08:12 Band Neutrophils % 2.0 % 03/21/19 08:12 Lymphocytes % (Manual) 13.0 % (13.4-35.0) L 03/21/19 08:12 Reactive Lymphs % (Man) 1.0 % 03/21/19 08:12 Monocytes % (Manual) 13.0 % (0.0-7.3) H 03/21/19 08:12 Eosinophils % (Manual) 3.0 % (0.0-4.3) 03/21/19 08:12 Basophils % (Manual) 0 % (0.0-1.8) 03/21/19 08:12 Metamyelocytes % 1.0 % 03/21/19 08:12 Myelocytes % 0 % 03/21/19 08:12 Promyelocytes % 0 % 03/21/19 08:12 Blast Cells % 0 % 03/21/19 08:12 Nucleated RBC % Not Reportable 03/21/19 08:12 Seg Neutrophils # 7.2 K/mm3 (1.8-7.7) 03/17/19 04:45 Seg Neutrophils # Man 2.6 K/mm3 (1.8-7.7) 03/21/19 08:12 Band Neutrophils # 0.1 K/mm3 03/21/19 08:12 Lymphocytes # (Manual) 0.5 K/mm3 (1.2-5.4) L 03/21/19 08:12 Abs React Lymphs (Man) 0.0 K/mm3 03/21/19 08:12 Monocytes # (Manual) 0.5 K/mm3 (0.0-0.8) 03/21/19 08:12 Eosinophils # (Manual) 0.1 K/mm3 (0.0-0.4) 03/21/19 08:12 Basophils # (Manual) 0.0 K/mm3 (0.0-0.1) 03/21/19 08:12 Metamyelocytes # 0.0 K/mm3 03/21/19 08:12 Myelocytes # 0.0 K/mm3 03/21/19 08:12 Promyelocytes # 0.0 K/mm3 03/21/19 08:12 Blast Cells # 0.0 K/mm3 03/21/19 08:12 Pathologist Review 03/18/19 05:45 WBC Morphology Not Reportable 03/21/19 08:12 Hypersegmented Neuts Not Reportable 03/21/19 08:12 Hyposegmented Neuts Not Reportable 03/21/19 08:12 Hypogranular Neuts Not Reportable 03/21/19 08:12 Smudge Cells Not Reportable 03/21/19 08:12 Toxic Granulation Not Reportable 03/21/19 08:12 Toxic Vacuolation Not Reportable 03/21/19 08:12 Dohle Bodies Not Reportable 03/21/19 08:12 Pelger-Huet Anomaly Not Reportable 03/21/19 08:12 Sheila Rods Not Reportable 03/21/19 08:12 Platelet Estimate Consistent w auto 03/21/19 08:12 Clumped Platelets Not Reportable 03/21/19 08:12 Plt Clumps, EDTA Not Reportable 03/21/19 08:12 Large Platelets Not Reportable 03/21/19 08:12 Giant Platelets Not Reportable 03/21/19 08:12 Platelet Satelliting Not Reportable 03/21/19 08:12 Plt Morphology Comment Not Reportable 03/21/19 08:12 RBC Morphology Not Reportable 03/21/19 08:12 Dimorphic RBCs Not Reportable 03/21/19 08:12 Polychromasia Not Reportable 03/21/19 08:12 Hypochromasia Not Reportable 03/21/19 08:12 Poikilocytosis Not Reportable 03/21/19 08:12 Anisocytosis 1+ 03/21/19 08:12 Microcytosis Not Reportable 03/21/19 08:12 Macrocytosis 1+ 03/21/19 08:12 Spherocytes Not Reportable 03/21/19 08:12 Pappenheimer Bodies Not Reportable 03/21/19 08:12 Sickle Cells Not Reportable 03/21/19 08:12 Target Cells Few 03/21/19 08:12 Tear Drop Cells Not Reportable 03/21/19 08:12 Ovalocytes Not Reportable 03/21/19 08:12 Helmet Cells Not Reportable 03/21/19 08:12 [place] Bodies Not Reportable 03/21/19 08:12 [place] Rings Not Reportable 03/21/19 08:12 [place] Cells Not Reportable 03/21/19 08:12 Bite Cells Not Reportable 03/21/19 08:12 Crenated Cell Not Reportable 03/21/19 08:12 Elliptocytes Not Reportable 03/21/19 08:12 Acanthocytes (Spur) Not Reportable 03/21/19 08:12 Rouleaux Not Reportable 03/21/19 08:12 Hemoglobin C Crystals Not Reportable 03/21/19 08:12 Schistocytes Not Reportable 03/21/19 08:12 Malaria parasites Not Reportable 03/21/19 08:12 [place] Bodies Not Reportable 03/21/19 08:12 Hem Pathologist Commnt No 03/21/19 08:12 POC ABG pH 7.500 (7.35-7.45) H 03/23/19 04:37 ABG pH 7.379 pH Units (7.350-7.450) 03/24/19 04:36 POC ABG pCO2 39.6 (35-45) 03/23/19 04:37 ABG pCO2 43.0 mm Hg 03/24/19 04:36 POC ABG pO2 60 (80-105) L 03/23/19 04:37 ABG pO2 104.6 mm Hg (80.0-90.0) H 03/24/19 04:36 POC ABG HCO3 30.8 (22-26 mml/L) 03/23/19 04:37 ABG HCO3 24.8 mmol/L (20.0-26.0) 03/24/19 04:36 POC ABG Total CO2 32 (23-27mmol/L) 03/23/19 04:37 POC ABG O2 Sat 93 03/23/19 04:37 ABG O2 Saturation 97.7 % (95.0-99.0) 03/24/19 04:36 ABG O2 Content 9.7 (0.0-44) 03/24/19 04:36 POC ABG Base Excess 8 ((-2) - (+3)mmol/L) 03/23/19 04:37 ABG Base Excess -0.3 mmol/L (-2.0-3.0) 03/24/19 04:36 ABG Hemoglobin 7.1 gm/dl (12.0-16.0) L 03/24/19 04:36 ABG Carboxyhemoglobin 2.4 % (0.0-5.0) 03/24/19 04:36 ABG Methemoglobin 0.4 % (0.0-1.5) 03/24/19 04:36 Oxyhemoglobin 95.0 % (95.0-99.0) 03/24/19 04:36 FiO2 25 % 03/24/19 04:36 Sodium 145 mmol/L (137-145) 03/26/19 04:40 Potassium 4.8 mmol/L (3.6-5.0) 03/26/19 04:40 Chloride 113.9 mmol/L (98-107) H 03/26/19 04:40 Carbon Dioxide 23 mmol/L (22-30) 03/26/19 04:40 Anion Gap 13 mmol/L 03/26/19 04:40 BUN 16 mg/dL (7-17) 03/26/19 04:40 Creatinine 0.7 mg/dL (0.7-1.2) 03/26/19 04:40 Estimated GFR > 60 ml/min 03/26/19 04:40 BUN/Creatinine Ratio 23 % 03/26/19 04:40 Glucose 95 mg/dL (65-100) 03/26/19 04:40 POC Glucose 103 (70-105) 03/26/19 11:29 Hemoglobin A1c 4.6 % (4-6) 03/10/19 13:16 Lactic Acid 0.80 mmol/L (0.7-2.0) 03/21/19 13:05 Calcium 8.4 mg/dL (8.4-10.2) 03/26/19 04:40 Iron 81 ug/dL (37-170) 03/17/19 11:15 TIBC 127 mcg/dL (250-450) L 03/17/19 11:15 Ferritin 512.4 ng/mL (13.0-400.0) H 03/17/19 11:15 Total Bilirubin 0.50 mg/dL (0.1-1.2) 03/14/19 06:44 AST 144 units/L (5-40) H 03/14/19 06:44 ALT 90 units/L (7-56) H 03/14/19 06:44 Alkaline Phosphatase 226 units/L (35-129) H 03/14/19 06:44 Ammonia 54.0 umol/L (25-60) 03/11/19 07:29 Total Creatine Kinase 194 units/L (30-135) H 03/16/19 05:19 CK-MB (CK-2) 8.6 ng/mL (0.0-4.0) H 03/14/19 06:44 CK-MB (CK-2) Rel Index 7.1 (0-4) H 03/14/19 06:44 Troponin T 0.056 ng/mL (0.00-0.029) H D 03/14/19 06:44 Total Protein 6.7 g/dL (6.3-8.2) 03/14/19 06:44 Albumin 2.2 g/dL (3.9-5) L 03/14/19 06:44 Albumin/Globulin Ratio 0.5 % 03/14/19 06:44 Triglycerides 62 mg/dL (2-149) 03/14/19 06:44 Cholesterol 133 mg/dL (50-199) 03/14/19 06:44 LDL Cholesterol Direct 89 mg/dL (50-130) 03/14/19 06:44 HDL Cholesterol 43 mg/dL (40-59) 03/14/19 06:44 Cholesterol/HDL Ratio 3.09 % 03/14/19 06:44 Procalcitonin 1.19 ng/mL (<0.15) 03/21/19 13:05 Urine Color Straw (Yellow) 03/10/19 14:38 Urine Turbidity Clear (Clear) 03/10/19 14:38 Urine pH 7.0 (5.0-7.0) 03/10/19 14:38 Ur Specific [place] 1.009 (1.003-1.030) 03/10/19 14:38 Urine Protein <15 mg/dl mg/dL (Negative) 03/10/19 14:38 Urine Glucose (UA) Neg mg/dL (Negative) 03/10/19 14:38 Urine Ketones Neg mg/dL (Negative) 03/10/19 14:38 Urine Blood Neg (Negative) 03/10/19 14:38 Urine Nitrite Neg (Negative) 03/10/19 14:38 Urine Bilirubin Neg (Negative) 03/10/19 14:38 Urine Urobilinogen < 2.0 mg/dL (<2.0) 03/10/19 14:38 Ur Leukocyte Esterase Sm (Negative) 03/10/19 14:38 Urine WBC (Auto) 9.0 /HPF (0.0-6.0) H 03/10/19 14:38 Urine RBC (Auto) 2.0 /HPF (0.0-6.0) 03/10/19 14:38 U Epithel Cells (Auto) 1.0 /HPF (0-13.0) 03/10/19 14:38 Urine Bacteria (Auto) 2+ /HPF (Negative) 03/10/19 14:38 Urine Mucus Few /HPF 03/10/19 14:38 Vancomycin Trough 39.7 ug/mL (5.0-20.0) H 03/13/19 05:58 Random Vancomycin 27.6 ug/mL (0-40.0) 03/14/19 05:44 Active Medications - Current Medications Current Medications: Generic Name Dose Route Start Last Admin Trade Name Freq PRN Reason Stop Dose Admin Acetaminophen 650 mg 03/10/19 17:46 Tylenol PO Q4H PRN Pain MILD(1-3)/Fever >100.5/GUERRERO Albuterol 2.5 mg 03/11/19 03:52 Proventil IH TID PRN Wheezing Albuterol/Ipratropium 1 ampul 03/11/19 08:00 03/26/19 08:47 Duoneb *Not For Prn Use* IH 1 ampul Q6HRT CONNIE Administration Lipase/Protease/Amylase 1 each 03/14/19 13:25 Pancremartine Sahni 10,500 Unit FEEDTUBE PRN PRN For Clogged Feeding Tube Dextrose 50 ml 03/10/19 22:27 03/14/19 17:55 D50w (25gm) Syringe IV 50 ml Q30MIN PRN Administration Hypoglycemia Enoxaparin Sodium 40 mg 03/25/19 10:00 03/26/19 10:38 Enoxaparin SUB-Q 40 mg QDAY@1000 CONNIE Administration Famotidine 20 mg 03/22/19 10:00 03/26/19 10:38 Pepcid PO 20 mg BID CONNIE Administration Fluticasone Propionate 50 mcg 03/11/19 10:00 03/26/19 10:39 Flonase NS 50 mcg QDAY CONNIE Administration Folic Acid 1 mg 03/11/19 10:00 03/26/19 10:38 Folvite PO 1 mg QDAY CONNIE Administration Haloperidol 0.5 mg 03/11/19 03:52 03/12/19 09:32 Haldol PO 0.5 mg Q6H PRN Administration Agitation Hydrophilic Ointment 1 applic 03/14/19 06:51 Vaseline Lip Therapy TP Q2HR PRN Dry Lips Sodium Chloride 500 mls @ 15 mls/hr 03/17/19 20:00 Nacl 0.9% 500 Ml IV PRN [facility] Insulin Human Lispro 0 unit 03/11/19 00:00 03/26/19 10:37 Humalog SUB-Q Not Given Q6HR [facility] Protocol Morphine Sulfate 2 mg 03/10/19 17:56 03/25/19 13:41 Morphine IV 2 mg Q4H PRN Administration Pain, Moderate (4-6) Multi-Ingred Cream/Lotion/Oil/Oint 1 applic 03/14/19 06:51 03/20/19 10:22 Artificial Tears Ophth Oint OU 0.35 applic Q4HR PRN Administration Dry Eye(s) Ondansetron HCl 4 mg 03/10/19 17:46 03/11/19 05:04 Zofran IV 4 mg Q8H PRN Administration Nausea And Vomiting Rifaximin 550 mg 03/11/19 10:00 03/26/19 10:38 Xifaxan PO 550 mg BID CONNIE Administration Scopolamine 1 each 03/20/19 15:00 03/23/19 15:46 Transderm-Scop TD 1 each Q3D CONNIE Administration Simple Syrup 15 ml 03/14/19 13:25 Simple Syrup FEEDTUBE PRN PRN Hypoglycemia Simple Syrup 30 ml 03/14/19 13:25 Simple Syrup FEEDTUBE PRN PRN Hypoglycemia Sodium Bicarbonate 325 mg 03/14/19 13:25 Sodium Bicarbonate FEEDTUBE PRN PRN For Clogged Feeding Tube Sodium Chloride 10 ml 03/10/19 22:00 03/26/19 10:39 Sodium Chloride Flush Syringe 10 Ml IV 10 ml BID CONNIE Administration Sodium Chloride 10 ml 03/10/19 17:46 03/13/19 22:50 Sodium Chloride Flush Syringe 10 Ml IV 10 ml PRN PRN Administration LINE FLUSH Thiamine HCl 100 mg 03/11/19 10:00 03/26/19 10:38 Vitamin B-1 PO 100 mg QDAY CONNIE Administration Nutrition/Malnutrition Assess - Dietary Evaluation Nutrition/Malnutrition Findings: Nutrition Notes Start: 03/11/19 10:01 Freq: Status: Active Protocol: Document 03/24/19 12:19 AP (Rec: 03/24/19 12:32 AP [id number]) Co-Sign 03/24/19 12:19 LM Nutrition Notes Need for Assessment generated from: MD Order Initial or Follow up Reassessment Current Diagnosis COPD,Decubitus(Pressure Ulcer) ,Hypertension Other Pertinent Diagnosis AMS/nonverbal, Hep C, Anemia, Renal stones Current Diet Vital AF 1.2 at 55ml/hr Labs/Tests Na 149 Pertinent Medications Reviewed Height 5 ft 3 in Weight 102.2 kg [place] Body Weight (kg) 52.27 BMI 39.9 Weight Status Obese Subjective/Other Information F/U for TF rate/tolerance. Vital AF 1.2 running at 55ml/ hr. Pt to receive trach/PEG next week per RN. Percent of energy/protein needs met: 93%/94% Minimum of two criteria No Reduced Chamber Worker Strength Measurably Reduced (severe) #1 Nutrition Diagnosis Inadequate oral intake Diagnosis Progress(for reassessment Continues documentation) Is patient on ventilator? Yes Is Patient Ambulatory and/or Out of Bed No REE-([place]-confined to bed) 1842.456 Nutrition Intervention Change Diet Order: TF Nutrition Support: Vital AF 1.2 at 55ml/hr. Increase flush to 200ml q4h for hypernatremia. Once resolved flush 100ml q4h. Kcal 1,584 Protein (gm) 99 Fluid (mL) 1,071 Goal #1 TF tolerance Goal #2 TF continue to meet at least 80% of estimated energy and protein needs. Anticipated Discharge Needs: unable to determine at this time Follow-Up By: 03/28/19 Additional Comments F/U for TF tolerance, Na labs.
[2019-03-26] MEDS: MORPHINE 2 MG/1 ML INJ IV PRN (14:02)
--- NOTE | 2019-03-26 16:41 | Progress Note ---
Assessment and Plan Cultures: 03/10 UCx - VRE faecim 03/10 BCx - NGTD 03/14 BCX - NGTD A/P: 68 yo F PMHx hepatitis C, Dm2, many other comorbidities admitted with altered mental status, possible secondary to VRE UTI: 1. VRE UTI - Resolved 2. Hepatitis C 3. DM2 - tight glycemic control for wound healing 4. Hypoxic respiratory failure secondary to aspiration pneumonia - Complted 7 days of pip-david. 5. Septic shock - initially due to VRE UTI/aspiration pneumonia. fevers have been recurrent, still requires full ventilator support and is on pressors. Would continue to monitor fevers, if they continue to recur would need to consider CT chest to fully evaluate lung pathology and may need to restart antibiotics. Recs: - off antibiotics, continue to monitor - Possible some element of central fevers. If fevers recur, would re-culture. We will sign off for now. Please call with any questions. Berta Stacy MD [facility] ([facility]) M: [phone] O: [phone] F: [phone] Subjective Date of service: 03/26/19 Principal diagnosis: anemia Interval history: remains intubated and sedated. Afebrile overnight, persistent mild leukopenia. Objective - Exam Narrative Exam: Constitutional: intubated, sedated Head, Ears, Nose: Normocephalic, atraumatic. External ears, nose normal Eyes: Conjunctivae/corneas clear. No icterus. No ptosis. Neck: Supple, no meningeal signs Oral: dentition fair, no thrush Cardiovascular: S1, S2 normal. Respiratory: Good air entry, clear to auscultation bilaterally GI: Soft, non-tender; bowel sounds normal. No peritoneal signs. Musculoskeletal: No pedal edema, no cyanosis. Skin: No rash or abscess Hem/Lymphatic: No palpable cervical or supraclavicular nodes. No lymphangitis Psych: Sedated Neurological: Intubated, sedated - Constitutional Vitals: Vital Signs Temp Pulse Resp BP Pulse Ox 96.2 F L 80 13 124/71 97 03/26/19 12:00 03/26/19 15:00 03/26/19 15:00 03/26/19 15:00 03/26/19 15:00 Temperature -Last 24 Hours Temperature 96.2 F Temperature 97.5 F Temperature 97.5 F Temperature 97.9 F Temperature 97.8 F Temperature 98.4 F - Labs CBC & Chem 7: 03/26/19 06:50 03/26/19 04:40 Labs: Abnormal lab results 03/25/19 03/25/19 03/26/19 Range/Units 05:33 18:21 04:40 WBC (4.5-11.0) K/mm3 RBC (3.65-5.03) M/mm3 Hgb (10.1-14.3) gm/dl Hct (30.3-42.9) % MCV (79-97) fl RDW (13.2-15.2) % Chloride 113.9 H (98-107) mmol/L POC Glucose 129 H 120 H (70-105) 03/26/19 Range/Units 06:50 WBC 4.1 L (4.5-11.0) K/mm3 RBC 2.35 L (3.65-5.03) M/mm3 Hgb 7.5 L (10.1-14.3) gm/dl Hct 23.4 L (30.3-42.9) % MCV 100 H (79-97) fl RDW 25.1 H (13.2-15.2) % Chloride (98-107) mmol/L POC Glucose (70-105)
[2019-03-26] MEDS: SCOPOLAMINE TRANSDERMAL PATCH 72 HR TD SCH (17:25)
--- NOTE | 2019-03-26 20:58 | Progress Note ---
Assessment and Plan Severe sepsis with septic shock Cardiac arrest (asystole with ROSC) Acute hypoxic respiratory failure on MVS Lactic acidosis- multifactorial (resolved) Acute toxic- metabolic encephalopathy Aspiration pneumonia VRE UTI Hypernatremia Thrombocytopenia h/o Cirrhosis h/o Alcohol abuse disorder KERRI Hyperkalemia - will consult for tracheastomy next 48 hours if no weaning progress - contiunue daily SAT's and SBT assessment as tolerated in am - CT head done and no acute process noted - weaned off vasopressors now - discontinued steen catheter - place scopolamine patch for secretion control - VAP bundle addressed (Aspiration precautions, HOB > 40 degrees) - continue Lung protective strategies - continue to wean FIO2 for O2 sats >90% - prn CXR's & ABG's acutely - continue to avoid nephrotoxins and adjust all medications fro GFR and CrCL - continue enteral nutrition and advance to goal rate as tolerated (hold for tentative extubation) - continue agitation management / Pain management per CPOT - complete empiric antibiotics for aspiration PNA, antibiotics for VRE, de- escalate based on cultures and clinical status (ID input appreciated) - Continue contact isolation - Continue VTE prophylaxis (SCDs), trend platelet counts and monitor for bleeding - continue stress ulcer prophylaxis with PPI - continue accuchecks with glycemic control for SSI (While critically ill target blood glucose of 140-180 mg/dL; avoid hypoglycemia) - Continue mobility protocol for pressure ulcer prevention - Continue to monitor hemodynamics closely - Monitor electrolyte profile closely and replete as indicated - continue chronic home medications per attending and as clinically indicated - continue other care per attending / other consultants .... re-evaluate in am & prn CONDITION: CRITICAL PROGNOSIS: GUARDED CODE STATUS: FULL CODE The high probability of a clinically significant, sudden or life-threatening deterioration of the [respiratory, cardiovascular, neurology, hematology] system(s) required my full and direct attention, intervention and personal management. The aggregate critical care time was [31] minutes without overlap. Time includes spent on; [x] Data Review and interpretation [x] Patient assessment and monitoring of vital signs [x] Documentation [x] Medication orders and management Subjective Date of service: 03/26/19 Principal diagnosis: Severe sepsis with shock; Ac. hypoxemic resp failure; card iac arrest; PNA Interval history: Follow up for severe sepsis with septic shock; acute hypoxemic respiratory failure on MVS; s/p cardiac arrest with ROSC; VRE UTI; Aspiration pneumonia Seen and examined at bedside; 24hour events reviewed; nursing and respiratory care staff consulted; no adverse overnight events reported to me; resting in bed; remains a tenuous wean and likely heading towards a tracheostomy; no N/V/F/C Objective Vital Signs - 12hr 03/26/19 03/26/19 03/26/19 09:00 10:00 11:00 Temperature Pulse Rate 73 76 89 Pulse Rate [ Anterior Bilateral] Pulse Rate [ From Monitor] Respiratory 20 16 17 Rate Respiratory Rate [Anterior Bilateral] Blood Pressure 140/77 145/86 148/94 O2 Sat by Pulse 96 96 97 Oximetry 03/26/19 03/26/19 03/26/19 12:00 12:47 13:00 Temperature 96.2 F L Pulse Rate 78 84 83 Pulse Rate [ Anterior Bilateral] Pulse Rate [ 82 From Monitor] Respiratory 19 26 H Rate Respiratory Rate [Anterior Bilateral] Blood Pressure 152/84 157/86 157/86 O2 Sat by Pulse 97 95 96 Oximetry 03/26/19 03/26/19 03/26/19 13:28 14:01 14:02 Temperature Pulse Rate 88 Pulse Rate [ 85 Anterior Bilateral] Pulse Rate [ From Monitor] Respiratory 20 18 Rate Respiratory 15 Rate [Anterior Bilateral] Blood Pressure 166/79 O2 Sat by Pulse 93 Oximetry 03/26/19 03/26/19 03/26/19 15:00 16:00 17:00 Temperature 95.9 F L Pulse Rate 80 72 81 Pulse Rate [ Anterior Bilateral] Pulse Rate [ 68 From Monitor] Respiratory 13 14 16 Rate Respiratory Rate [Anterior Bilateral] Blood Pressure 124/71 116/70 130/95 O2 Sat by Pulse 97 100 100 Oximetry 03/26/19 03/26/19 17:35 18:00 Temperature Pulse Rate 72 72 Pulse Rate [ Anterior Bilateral] Pulse Rate [ From Monitor] Respiratory 11 L Rate Respiratory Rate [Anterior Bilateral] Blood Pressure 138/74 138/74 O2 Sat by Pulse 100 100 Oximetry Constitutional: appears uncomfortable, other (elderly looking obese AAF with mild respiratory distress on MVS ) Eyes: non-icteric ENT: oropharynx moist, other (ETT 23 cm JA) Neck: supple, no lymphadenopathy, no JVD, other (large neck circumference) Effort: mildly labored Ascultation: Bilateral: diminished breath sounds, rales (scant in bases) Percussion: Bilateral: not dull Cardiovascular: regular rate and rhythm, other (S1, S2, no murmurs, gallops or rubs rhythm strip shows accelerated junctional ) Gastrointestinal: normoactive bowel sounds, soft, non-tender, non-distended, other (No HSM) Integumentary: normal Extremities: no cyanosis, no edema, pulses normal, no ischemia or petechiae Neurologic: non-focal exam (grossly), pupils equal and round, unable to assess, other (lethargic) Psychiatric: other (unable to assess) CBC and BMP: 03/27/19 05:27 03/27/19 05:27 ABG, PT/INR, D-dimer: ABG POC ABG pH 7.500 (7.35-7.45) H 03/23/19 04:37 ABG pH 7.379 pH Units (7.350-7.450) 03/24/19 04:36 POC ABG pCO2 39.6 (35-45) 03/23/19 04:37 ABG pCO2 43.0 mm Hg 03/24/19 04:36 POC ABG pO2 60 (80-105) L 03/23/19 04:37 ABG pO2 104.6 mm Hg (80.0-90.0) H 03/24/19 04:36 POC ABG HCO3 30.8 (22-26 mml/L) 03/23/19 04:37 POC ABG Total CO2 32 (23-27mmol/L) 03/23/19 04:37 POC ABG O2 Sat 93 03/23/19 04:37 ABG O2 Saturation 97.7 % (95.0-99.0) 03/24/19 04:36 Abnormal lab findings: Abnormal Labs 03/10/19 03/10/19 03/10/19 13:16 13:16 14:38 WBC 0.8 L* RBC 3.35 L Hgb Hct MCV RDW 22.1 H Plt Count 78 L Lymph % (Auto) Lymph # Seg Neutrophils % Seg Neuts % (Manual) Lymphocytes % (Manual) 49.0 H Monocytes % (Manual) Eosinophils % (Manual) Nucleated RBC % Seg Neutrophils # Man 0.3 L Lymphocytes # (Manual) 0.4 L POC ABG pH ABG pH POC ABG pCO2 POC ABG pO2 ABG pO2 ABG HCO3 ABG Base Excess ABG Hemoglobin Oxyhemoglobin Sodium 147 H Potassium 5.4 H Chloride 111.8 H Carbon Dioxide BUN Creatinine 0.6 L Glucose POC Glucose Lactic Acid Calcium TIBC Ferritin AST 128 H ALT 79 H Alkaline Phosphatase 174 H Total Creatine Kinase CK-MB (CK-2) CK-MB (CK-2) Rel Index Troponin T Total Protein Albumin 2.4 L Urine WBC (Auto) 9.0 H Vancomycin Trough 03/10/19 03/10/19 03/11/19 21:22 23:36 07:29 WBC RBC Hgb Hct MCV RDW Plt Count Lymph % (Auto) Lymph # Seg Neutrophils % Seg Neuts % (Manual) Lymphocytes % (Manual) Monocytes % (Manual) Eosinophils % (Manual) Nucleated RBC % Seg Neutrophils # Man Lymphocytes # (Manual) POC ABG pH ABG pH POC ABG pCO2 POC ABG pO2 ABG pO2 ABG HCO3 ABG Base Excess ABG Hemoglobin Oxyhemoglobin Sodium 148 H Potassium 5.6 H Chloride 122.3 H Carbon Dioxide 20 L BUN Creatinine 0.6 L Glucose POC Glucose 65 L 112 H Lactic Acid Calcium TIBC Ferritin AST 102 H ALT 65 H Alkaline Phosphatase 134 H Total Creatine Kinase CK-MB (CK-2) CK-MB (CK-2) Rel Index Troponin T Total Protein 6.1 L Albumin 1.8 L Urine WBC (Auto) Vancomycin Trough 03/11/19 03/11/19 03/11/19 11:25 15:28 18:00 WBC 1.2 L* RBC Hgb Hct MCV RDW 22.1 H Plt Count 53 L Lymph % (Auto) Lymph # Seg Neutrophils % Seg Neuts % (Manual) 78.6 H Lymphocytes % (Manual) 9.5 L Monocytes % (Manual) 9.5 H Eosinophils % (Manual) Nucleated RBC % Seg Neutrophils # Man 0.9 L Lymphocytes # (Manual) 0.1 L POC ABG pH ABG pH POC ABG pCO2 POC ABG pO2 ABG pO2 ABG HCO3 ABG Base Excess ABG Hemoglobin Oxyhemoglobin Sodium Potassium Chloride Carbon Dioxide BUN Creatinine Glucose POC Glucose 117 H 118 H Lactic Acid Calcium TIBC Ferritin AST ALT Alkaline Phosphatase Total Creatine Kinase CK-MB (CK-2) CK-MB (CK-2) Rel Index Troponin T Total Protein Albumin Urine WBC (Auto) Vancomycin Trough 03/12/19 03/12/19 03/12/19 00:19 05:45 08:55 WBC 2.4 L RBC 3.33 L Hgb Hct MCV RDW 22.8 H Plt Count 58 L Lymph % (Auto) Lymph # Seg Neutrophils % Seg Neuts % (Manual) 93.0 H Lymphocytes % (Manual) 4.0 L Monocytes % (Manual) Eosinophils % (Manual) Nucleated RBC % 7.0 H Seg Neutrophils # Man Lymphocytes # (Manual) 0.1 L POC ABG pH ABG pH POC ABG pCO2 POC ABG pO2 ABG pO2 ABG HCO3 ABG Base Excess ABG Hemoglobin Oxyhemoglobin Sodium Potassium Chloride Carbon Dioxide BUN Creatinine Glucose POC Glucose 124 H 116 H Lactic Acid Calcium TIBC Ferritin AST ALT Alkaline Phosphatase Total Creatine Kinase CK-MB (CK-2) CK-MB (CK-2) Rel Index Troponin T Total Protein Albumin Urine WBC (Auto) Vancomycin Trough 03/12/19 03/13/19 03/13/19 08:55 00:18 03:48 WBC 2.7 L RBC 3.06 L Hgb 9.4 L Hct 29.4 L MCV RDW 23.1 H Plt Count 62 L Lymph % (Auto) Lymph # Seg Neutrophils % Seg Neuts % (Manual) 76.0 H Lymphocytes % (Manual) Monocytes % (Manual) Eosinophils % (Manual) Nucleated RBC % 11.0 H Seg Neutrophils # Man Lymphocytes # (Manual) 0.5 L POC ABG pH ABG pH POC ABG pCO2 POC ABG pO2 ABG pO2 ABG HCO3 ABG Base Excess ABG Hemoglobin Oxyhemoglobin Sodium Potassium 5.6 H Chloride 114.2 H Carbon Dioxide 21 L BUN Creatinine Glucose POC Glucose 119 H Lactic Acid Calcium TIBC Ferritin AST ALT Alkaline Phosphatase Total Creatine Kinase CK-MB (CK-2) CK-MB (CK-2) Rel Index Troponin T Total Protein Albumin Urine WBC (Auto) Vancomycin Trough 03/13/19 03/13/19 03/13/19 03:48 05:52 05:58 WBC RBC Hgb Hct MCV RDW Plt Count Lymph % (Auto) Lymph # Seg Neutrophils % Seg Neuts % (Manual) Lymphocytes % (Manual) Monocytes % (Manual) Eosinophils % (Manual) Nucleated RBC % Seg Neutrophils # Man Lymphocytes # (Manual) POC ABG pH ABG pH POC ABG pCO2 POC ABG pO2 ABG pO2 ABG HCO3 ABG Base Excess ABG Hemoglobin Oxyhemoglobin Sodium Potassium Chloride 112.7 H Carbon Dioxide 21 L BUN Creatinine Glucose 103 H POC Glucose 114 H Lactic Acid Calcium TIBC Ferritin AST ALT Alkaline Phosphatase Total Creatine Kinase CK-MB (CK-2) CK-MB (CK-2) Rel Index Troponin T Total Protein Albumin Urine WBC (Auto) Vancomycin Trough 39.7 H 03/13/19 03/13/19 03/14/19 12:12 18:00 00:17 WBC RBC Hgb Hct MCV RDW Plt Count Lymph % (Auto) Lymph # Seg Neutrophils % Seg Neuts % (Manual) Lymphocytes % (Manual) Monocytes % (Manual) Eosinophils % (Manual) Nucleated RBC % Seg Neutrophils # Man Lymphocytes # (Manual) POC ABG pH ABG pH POC ABG pCO2 POC ABG pO2 ABG pO2 ABG HCO3 ABG Base Excess ABG Hemoglobin Oxyhemoglobin Sodium Potassium Chloride Carbon Dioxide BUN Creatinine Glucose POC Glucose 116 H 132 H 130 H Lactic Acid Calcium TIBC Ferritin AST ALT Alkaline Phosphatase Total Creatine Kinase CK-MB (CK-2) CK-MB (CK-2) Rel Index Troponin T Total Protein Albumin Urine WBC (Auto) Vancomycin Trough 03/14/19 03/14/19 03/14/19 05:24 06:44 06:44 WBC 2.6 L RBC 3.00 L Hgb 9.2 L Hct 28.3 L MCV RDW 22.5 H Plt Count 44 L Lymph % (Auto) Lymph # Seg Neutrophils % Seg Neuts % (Manual) 75.0 H Lymphocytes % (Manual) Monocytes % (Manual) Eosinophils % (Manual) 5.0 H Nucleated RBC % 19.0 H Seg Neutrophils # Man Lymphocytes # (Manual) 0.4 L POC ABG pH ABG pH POC ABG pCO2 POC ABG pO2 ABG pO2 ABG HCO3 ABG Base Excess ABG Hemoglobin Oxyhemoglobin Sodium Potassium Chloride 110.2 H Carbon Dioxide 21 L BUN Creatinine 1.3 H Glucose POC Glucose 110 H Lactic Acid Calcium TIBC Ferritin AST 144 H ALT 90 H Alkaline Phosphatase 226 H Total Creatine Kinase CK-MB (CK-2) 8.6 H CK-MB (CK-2) Rel Index 7.1 H Troponin T 0.056 H D Total Protein Albumin 2.2 L Urine WBC (Auto) Vancomycin Trough 03/14/19 03/14/19 03/14/19 09:05 11:54 12:15 WBC RBC Hgb Hct MCV RDW Plt Count Lymph % (Auto) Lymph # Seg Neutrophils % Seg Neuts % (Manual) Lymphocytes % (Manual) Monocytes % (Manual) Eosinophils % (Manual) Nucleated RBC % Seg Neutrophils # Man Lymphocytes # (Manual) POC ABG pH 7.283 L 7.458 H ABG pH POC ABG pCO2 54.9 H 32.7 L POC ABG pO2 76 L ABG pO2 ABG HCO3 ABG Base Excess ABG Hemoglobin Oxyhemoglobin Sodium Potassium Chloride Carbon Dioxide BUN Creatinine Glucose POC Glucose Lactic Acid 2.10 H* Calcium TIBC Ferritin AST ALT Alkaline Phosphatase Total Creatine Kinase CK-MB (CK-2) CK-MB (CK-2) Rel Index Troponin T Total Protein Albumin Urine WBC (Auto) Vancomycin Trough 03/14/19 03/14/19 03/14/19 12:43 13:35 15:35 WBC RBC Hgb Hct MCV RDW Plt Count Lymph % (Auto) Lymph # Seg Neutrophils % Seg Neuts % (Manual) Lymphocytes % (Manual) Monocytes % (Manual) Eosinophils % (Manual) Nucleated RBC % Seg Neutrophils # Man Lymphocytes # (Manual) POC ABG pH ABG pH POC ABG pCO2 POC ABG pO2 ABG pO2 ABG HCO3 ABG Base Excess ABG Hemoglobin Oxyhemoglobin Sodium Potassium Chloride Carbon Dioxide BUN Creatinine Glucose POC Glucose 68 L Lactic Acid 2.10 H* 3.50 H* Calcium TIBC Ferritin AST ALT Alkaline Phosphatase Total Creatine Kinase CK-MB (CK-2) CK-MB (CK-2) Rel Index Troponin T Total Protein Albumin Urine WBC (Auto) Vancomycin Trough 03/14/19 03/14/19 03/14/19 17:34 17:46 17:55 WBC RBC Hgb Hct MCV RDW Plt Count Lymph % (Auto) Lymph # Seg Neutrophils % Seg Neuts % (Manual) Lymphocytes % (Manual) Monocytes % (Manual) Eosinophils % (Manual) Nucleated RBC % Seg Neutrophils # Man Lymphocytes # (Manual) POC ABG pH 7.241 L 7.244 L ABG pH POC ABG pCO2 50.4 H 50.1 H POC ABG pO2 156 H ABG pO2 ABG HCO3 ABG Base Excess ABG Hemoglobin Oxyhemoglobin Sodium Potassium Chloride Carbon Dioxide BUN Creatinine Glucose POC Glucose 49 L Lactic Acid Calcium TIBC Ferritin AST ALT Alkaline Phosphatase Total Creatine Kinase CK-MB (CK-2) CK-MB (CK-2) Rel Index Troponin T Total Protein Albumin Urine WBC (Auto) Vancomycin Trough 03/14/19 03/14/19 03/14/19 18:29 18:32 20:27 WBC RBC Hgb Hct MCV RDW Plt Count Lymph % (Auto) Lymph # Seg Neutrophils % Seg Neuts % (Manual) Lymphocytes % (Manual) Monocytes % (Manual) Eosinophils % (Manual) Nucleated RBC % Seg Neutrophils # Man Lymphocytes # (Manual) POC ABG pH ABG pH POC ABG pCO2 POC ABG pO2 ABG pO2 ABG HCO3 ABG Base Excess ABG Hemoglobin Oxyhemoglobin Sodium Potassium Chloride 112.6 H Carbon Dioxide 19 L BUN Creatinine 1.4 H Glucose 132 H POC Glucose 57 L 115 H Lactic Acid Calcium TIBC Ferritin AST ALT Alkaline Phosphatase Total Creatine Kinase CK-MB (CK-2) CK-MB (CK-2) Rel Index Troponin T Total Protein Albumin Urine WBC (Auto) Vancomycin Trough 03/14/19 03/14/19 03/15/19 23:47 Unknown 04:00 WBC RBC 2.77 L Hgb 8.5 L Hct 27.3 L MCV 98 H RDW 23.0 H Plt Count 27 L Lymph % (Auto) Lymph # Seg Neutrophils % Seg Neuts % (Manual) 75.0 H Lymphocytes % (Manual) 1.0 L Monocytes % (Manual) Eosinophils % (Manual) Nucleated RBC % 4.0 H Seg Neutrophils # Man Lymphocytes # (Manual) 0.1 L POC ABG pH ABG pH POC ABG pCO2 POC ABG pO2 ABG pO2 ABG HCO3 ABG Base Excess ABG Hemoglobin Oxyhemoglobin Sodium Potassium Chloride Carbon Dioxide BUN Creatinine Glucose POC Glucose 116 H Lactic Acid 3.30 H* Calcium TIBC Ferritin AST ALT Alkaline Phosphatase Total Creatine Kinase CK-MB (CK-2) CK-MB (CK-2) Rel Index Troponin T Total Protein Albumin Urine WBC (Auto) Vancomycin Trough 03/15/19 03/15/19 03/15/19 04:00 06:24 07:35 WBC RBC Hgb Hct MCV RDW Plt Count Lymph % (Auto) Lymph # Seg Neutrophils % Seg Neuts % (Manual) Lymphocytes % (Manual) Monocytes % (Manual) Eosinophils % (Manual) Nucleated RBC % Seg Neutrophils # Man Lymphocytes # (Manual) POC ABG pH 7.282 L ABG pH POC ABG pCO2 50.4 H POC ABG pO2 71 L ABG pO2 ABG HCO3 ABG Base Excess ABG Hemoglobin Oxyhemoglobin Sodium Potassium Chloride 112.1 H Carbon Dioxide 19 L BUN Creatinine 1.5 H Glucose 123 H POC Glucose 140 H Lactic Acid Calcium 8.2 L TIBC Ferritin AST ALT Alkaline Phosphatase Total Creatine Kinase CK-MB (CK-2) CK-MB (CK-2) Rel Index Troponin T Total Protein Albumin Urine WBC (Auto) Vancomycin Trough 03/15/19 03/15/19 03/16/19 11:47 23:25 04:33 WBC RBC Hgb Hct MCV RDW Plt Count Lymph % (Auto) Lymph # Seg Neutrophils % Seg Neuts % (Manual) Lymphocytes % (Manual) Monocytes % (Manual) Eosinophils % (Manual) Nucleated RBC % Seg Neutrophils # Man Lymphocytes # (Manual) POC ABG pH ABG pH 7.304 L POC ABG pCO2 POC ABG pO2 ABG pO2 174.4 H ABG HCO3 19.2 L ABG Base Excess -6.6 L ABG Hemoglobin 8.5 L Oxyhemoglobin Sodium Potassium Chloride Carbon Dioxide BUN Creatinine Glucose POC Glucose 161 H 139 H Lactic Acid Calcium TIBC Ferritin AST ALT Alkaline Phosphatase Total Creatine Kinase CK-MB (CK-2) CK-MB (CK-2) Rel Index Troponin T Total Protein Albumin Urine WBC (Auto) Vancomycin Trough 03/16/19 03/16/19 03/16/19 05:19 05:19 05:19 WBC RBC 2.92 L Hgb 8.9 L Hct 28.0 L MCV RDW 22.8 H Plt Count 42 L Lymph % (Auto) Lymph # Seg Neutrophils % Seg Neuts % (Manual) 84.0 H Lymphocytes % (Manual) 5.0 L Monocytes % (Manual) Eosinophils % (Manual) Nucleated RBC % Seg Neutrophils # Man 7.8 H Lymphocytes # (Manual) 0.5 L POC ABG pH ABG pH POC ABG pCO2 POC ABG pO2 ABG pO2 ABG HCO3 ABG Base Excess ABG Hemoglobin Oxyhemoglobin Sodium Potassium 5.2 H Chloride 114.0 H Carbon Dioxide 18 L BUN 22 H Creatinine 1.7 H Glucose 109 H POC Glucose Lactic Acid Calcium 8.0 L TIBC Ferritin AST ALT Alkaline Phosphatase Total Creatine Kinase 194 H CK-MB (CK-2) CK-MB (CK-2) Rel Index Troponin T Total Protein Albumin Urine WBC (Auto) Vancomycin Trough 03/16/19 03/16/19 03/16/19 05:51 12:19 17:42 WBC RBC Hgb Hct MCV RDW Plt Count Lymph % (Auto) Lymph # Seg Neutrophils % Seg Neuts % (Manual) Lymphocytes % (Manual) Monocytes % (Manual) Eosinophils % (Manual) Nucleated RBC % Seg Neutrophils # Man Lymphocytes # (Manual) POC ABG pH ABG pH POC ABG pCO2 POC ABG pO2 ABG pO2 ABG HCO3 ABG Base Excess ABG Hemoglobin Oxyhemoglobin Sodium Potassium Chloride Carbon Dioxide BUN Creatinine Glucose POC Glucose 123 H 134 H 130 H Lactic Acid Calcium TIBC Ferritin AST ALT Alkaline Phosphatase Total Creatine Kinase CK-MB (CK-2) CK-MB (CK-2) Rel Index Troponin T Total Protein Albumin Urine WBC (Auto) Vancomycin Trough 03/17/19 03/17/19 03/17/19 00:46 04:45 04:45 WBC RBC 2.42 L Hgb 7.5 L Hct 23.4 L MCV RDW 22.2 H Plt Count 37 L Lymph % (Auto) 6.2 L Lymph # 0.5 L Seg Neutrophils % 84.0 H Seg Neuts % (Manual) Lymphocytes % (Manual) Monocytes % (Manual) Eosinophils % (Manual) Nucleated RBC % Seg Neutrophils # Man Lymphocytes # (Manual) POC ABG pH ABG pH POC ABG pCO2 POC ABG pO2 ABG pO2 ABG HCO3 ABG Base Excess ABG Hemoglobin Oxyhemoglobin Sodium Potassium Chloride 115.4 H Carbon Dioxide 16 L BUN 27 H Creatinine 1.8 H Glucose 109 H POC Glucose 115 H Lactic Acid Calcium 7.9 L TIBC Ferritin AST ALT Alkaline Phosphatase Total Creatine Kinase CK-MB (CK-2) CK-MB (CK-2) Rel Index Troponin T Total Protein Albumin Urine WBC (Auto) Vancomycin Trough 03/17/19 03/17/19 03/17/19 05:00 06:05 11:15 WBC RBC Hgb Hct MCV RDW Plt Count Lymph % (Auto) Lymph # Seg Neutrophils % Seg Neuts % (Manual) Lymphocytes % (Manual) Monocytes % (Manual) Eosinophils % (Manual) Nucleated RBC % Seg Neutrophils # Man Lymphocytes # (Manual) POC ABG pH ABG pH 7.238 L POC ABG pCO2 POC ABG pO2 ABG pO2 114.7 H ABG HCO3 17.9 L ABG Base Excess -8.8 L ABG Hemoglobin 7.3 L Oxyhemoglobin Sodium Potassium Chloride Carbon Dioxide BUN Creatinine Glucose POC Glucose 124 H Lactic Acid Calcium TIBC 127 L Ferritin AST ALT Alkaline Phosphatase Total Creatine Kinase CK-MB (CK-2) CK-MB (CK-2) Rel Index Troponin T Total Protein Albumin Urine WBC (Auto) Vancomycin Trough 03/17/19 03/17/19 03/17/19 11:15 12:06 18:27 WBC RBC Hgb Hct MCV RDW Plt Count Lymph % (Auto) Lymph # Seg Neutrophils % Seg Neuts % (Manual) Lymphocytes % (Manual) Monocytes % (Manual) Eosinophils % (Manual) Nucleated RBC % Seg Neutrophils # Man Lymphocytes # (Manual) POC ABG pH ABG pH POC ABG pCO2 POC ABG pO2 ABG pO2 ABG HCO3 ABG Base Excess ABG Hemoglobin Oxyhemoglobin Sodium Potassium Chloride Carbon Dioxide BUN Creatinine Glucose POC Glucose 133 H 158 H Lactic Acid Calcium TIBC Ferritin 512.4 H AST ALT Alkaline Phosphatase Total Creatine Kinase CK-MB (CK-2) CK-MB (CK-2) Rel Index Troponin T Total Protein Albumin Urine WBC (Auto) Vancomycin Trough 03/17/19 03/18/19 03/18/19 23:30 04:00 05:45 WBC RBC 2.31 L Hgb 7.0 L Hct 22.0 L MCV RDW 22.2 H Plt Count 45 L Lymph % (Auto) Lymph # Seg Neutrophils % Seg Neuts % (Manual) 82.0 H Lymphocytes % (Manual) 12.0 L Monocytes % (Manual) Eosinophils % (Manual) 5.0 H Nucleated RBC % 1.0 H Seg Neutrophils # Man Lymphocytes # (Manual) 0.8 L POC ABG pH ABG pH POC ABG pCO2 POC ABG pO2 ABG pO2 113.7 H ABG HCO3 ABG Base Excess -3.0 L ABG Hemoglobin 7.0 L Oxyhemoglobin Sodium Potassium Chloride Carbon Dioxide BUN Creatinine Glucose POC Glucose 143 H Lactic Acid Calcium TIBC Ferritin AST ALT Alkaline Phosphatase Total Creatine Kinase CK-MB (CK-2) CK-MB (CK-2) Rel Index Troponin T Total Protein Albumin Urine WBC (Auto) Vancomycin Trough 03/18/19 03/18/19 03/18/19 05:48 05:50 14:01 WBC RBC Hgb Hct MCV RDW Plt Count Lymph % (Auto) Lymph # Seg Neutrophils % Seg Neuts % (Manual) Lymphocytes % (Manual) Monocytes % (Manual) Eosinophils % (Manual) Nucleated RBC % Seg Neutrophils # Man Lymphocytes # (Manual) POC ABG pH 7.299 L ABG pH POC ABG pCO2 48.7 H POC ABG pO2 ABG pO2 ABG HCO3 ABG Base Excess ABG Hemoglobin Oxyhemoglobin Sodium Potassium Chloride 109.9 H Carbon Dioxide BUN 28 H Creatinine 1.5 H Glucose 128 H POC Glucose 118 H Lactic Acid Calcium 7.6 L TIBC Ferritin AST ALT Alkaline Phosphatase Total Creatine Kinase CK-MB (CK-2) CK-MB (CK-2) Rel Index Troponin T Total Protein Albumin Urine WBC (Auto) Vancomycin Trough 03/18/19 03/19/19 03/19/19 23:53 04:43 06:02 WBC RBC Hgb Hct MCV RDW Plt Count Lymph % (Auto) Lymph # Seg Neutrophils % Seg Neuts % (Manual) Lymphocytes % (Manual) Monocytes % (Manual) Eosinophils % (Manual) Nucleated RBC % Seg Neutrophils # Man Lymphocytes # (Manual) POC ABG pH ABG pH 7.332 L POC ABG pCO2 POC ABG pO2 ABG pO2 116.2 H ABG HCO3 ABG Base Excess -3.3 L ABG Hemoglobin 7.3 L Oxyhemoglobin 94.9 L Sodium Potassium Chloride Carbon Dioxide BUN Creatinine Glucose POC Glucose 130 H 122 H Lactic Acid Calcium TIBC Ferritin AST ALT Alkaline Phosphatase Total Creatine Kinase CK-MB (CK-2) CK-MB (CK-2) Rel Index Troponin T Total Protein Albumin Urine WBC (Auto) Vancomycin Trough 03/19/19 03/19/19 03/19/19 12:16 15:33 23:44 WBC RBC Hgb Hct MCV RDW Plt Count Lymph % (Auto) Lymph # Seg Neutrophils % Seg Neuts % (Manual) Lymphocytes % (Manual) Monocytes % (Manual) Eosinophils % (Manual) Nucleated RBC % Seg Neutrophils # Man Lymphocytes # (Manual) POC ABG pH 7.316 L ABG pH POC ABG pCO2 45.7 H POC ABG pO2 ABG pO2 ABG HCO3 ABG Base Excess ABG Hemoglobin Oxyhemoglobin Sodium Potassium Chloride Carbon Dioxide BUN Creatinine Glucose POC Glucose 132 H 106 H Lactic Acid Calcium TIBC Ferritin AST ALT Alkaline Phosphatase Total Creatine Kinase CK-MB (CK-2) CK-MB (CK-2) Rel Index Troponin T Total Protein Albumin Urine WBC (Auto) Vancomycin Trough 03/20/19 03/20/19 03/20/19 01:00 EST 04:27 12:06 WBC RBC Hgb Hct MCV RDW Plt Count Lymph % (Auto) Lymph # Seg Neutrophils % Seg Neuts % (Manual) Lymphocytes % (Manual) Monocytes % (Manual) Eosinophils % (Manual) Nucleated RBC % Seg Neutrophils # Man Lymphocytes # (Manual) POC ABG pH ABG pH POC ABG pCO2 POC ABG pO2 ABG pO2 121.6 H ABG HCO3 ABG Base Excess ABG Hemoglobin 7.1 L Oxyhemoglobin Sodium Potassium 3.4 L Chloride 111.7 H Carbon Dioxide BUN 29 H Creatinine Glucose POC Glucose 134 H Lactic Acid Calcium 8.0 L TIBC Ferritin AST ALT Alkaline Phosphatase Total Creatine Kinase CK-MB (CK-2) CK-MB (CK-2) Rel Index Troponin T Total Protein Albumin Urine WBC (Auto) Vancomycin Trough 03/20/19 03/20/19 03/21/19 18:09 23:36 05:42 WBC RBC Hgb Hct MCV RDW Plt Count Lymph % (Auto) Lymph # Seg Neutrophils % Seg Neuts % (Manual) Lymphocytes % (Manual) Monocytes % (Manual) Eosinophils % (Manual) Nucleated RBC % Seg Neutrophils # Man Lymphocytes # (Manual) POC ABG pH ABG pH POC ABG pCO2 POC ABG pO2 ABG pO2 ABG HCO3 ABG Base Excess ABG Hemoglobin Oxyhemoglobin Sodium Potassium Chloride Carbon Dioxide BUN Creatinine Glucose POC Glucose 133 H 114 H 116 H Lactic Acid Calcium TIBC Ferritin AST ALT Alkaline Phosphatase Total Creatine Kinase CK-MB (CK-2) CK-MB (CK-2) Rel Index Troponin T Total Protein Albumin Urine WBC (Auto) Vancomycin Trough 03/21/19 03/21/19 03/21/19 08:12 14:09 17:51 WBC 3.9 L RBC 2.25 L Hgb 7.1 L Hct 21.6 L MCV RDW 21.6 H Plt Count 105 L Lymph % (Auto) Lymph # Seg Neutrophils % Seg Neuts % (Manual) Lymphocytes % (Manual) 13.0 L Monocytes % (Manual) 13.0 H Eosinophils % (Manual) Nucleated RBC % Seg Neutrophils # Man Lymphocytes # (Manual) 0.5 L POC ABG pH ABG pH POC ABG pCO2 POC ABG pO2 120 H ABG pO2 ABG HCO3 ABG Base Excess ABG Hemoglobin Oxyhemoglobin Sodium Potassium Chloride Carbon Dioxide BUN Creatinine Glucose POC Glucose 145 H Lactic Acid Calcium TIBC Ferritin AST ALT Alkaline Phosphatase Total Creatine Kinase CK-MB (CK-2) CK-MB (CK-2) Rel Index Troponin T Total Protein Albumin Urine WBC (Auto) Vancomycin Trough 03/22/19 03/22/19 03/22/19 05:36 11:10 11:39 WBC RBC Hgb Hct MCV RDW Plt Count Lymph % (Auto) Lymph # Seg Neutrophils % Seg Neuts % (Manual) Lymphocytes % (Manual) Monocytes % (Manual) Eosinophils % (Manual) Nucleated RBC % Seg Neutrophils # Man Lymphocytes # (Manual) POC ABG pH ABG pH POC ABG pCO2 POC ABG pO2 ABG pO2 ABG HCO3 ABG Base Excess ABG Hemoglobin Oxyhemoglobin Sodium 149 H Potassium Chloride 115.6 H Carbon Dioxide BUN 20 H Creatinine Glucose 109 H POC Glucose 106 H 124 H Lactic Acid Calcium TIBC Ferritin AST ALT Alkaline Phosphatase Total Creatine Kinase CK-MB (CK-2) CK-MB (CK-2) Rel Index Troponin T Total Protein Albumin Urine WBC (Auto) Vancomycin Trough 03/22/19 03/22/19 03/22/19 12:04 18:36 Unknown WBC 4.2 L RBC 2.45 L Hgb 7.6 L Hct 23.9 L MCV 98 H RDW 22.2 H Plt Count Lymph % (Auto) Lymph # Seg Neutrophils % Seg Neuts % (Manual) Lymphocytes % (Manual) Monocytes % (Manual) Eosinophils % (Manual) Nucleated RBC % Seg Neutrophils # Man Lymphocytes # (Manual) POC ABG pH 7.285 L ABG pH POC ABG pCO2 55.4 H POC ABG pO2 ABG pO2 ABG HCO3 ABG Base Excess ABG Hemoglobin Oxyhemoglobin Sodium Potassium Chloride Carbon Dioxide BUN Creatinine Glucose POC Glucose 120 H Lactic Acid Calcium TIBC Ferritin AST ALT Alkaline Phosphatase Total Creatine Kinase CK-MB (CK-2) CK-MB (CK-2) Rel Index Troponin T Total Protein Albumin Urine WBC (Auto) Vancomycin Trough 03/23/19 03/23/19 03/23/19 04:37 05:12 05:30 WBC 4.2 L RBC 2.22 L Hgb 7.0 L Hct 21.4 L MCV RDW 21.5 H Plt Count Lymph % (Auto) Lymph # Seg Neutrophils % Seg Neuts % (Manual) Lymphocytes % (Manual) Monocytes % (Manual) Eosinophils % (Manual) Nucleated RBC % Seg Neutrophils # Man Lymphocytes # (Manual) POC ABG pH 7.500 H ABG pH POC ABG pCO2 POC ABG pO2 60 L ABG pO2 ABG HCO3 ABG Base Excess ABG Hemoglobin Oxyhemoglobin Sodium Potassium Chloride Carbon Dioxide BUN Creatinine Glucose POC Glucose 106 H Lactic Acid Calcium TIBC Ferritin AST ALT Alkaline Phosphatase Total Creatine Kinase CK-MB (CK-2) CK-MB (CK-2) Rel Index Troponin T Total Protein Albumin Urine WBC (Auto) Vancomycin Trough 03/23/19 03/23/19 03/23/19 05:30 11:50 18:11 WBC RBC Hgb Hct MCV RDW Plt Count Lymph % (Auto) Lymph # Seg Neutrophils % Seg Neuts % (Manual) Lymphocytes % (Manual) Monocytes % (Manual) Eosinophils % (Manual) Nucleated RBC % Seg Neutrophils # Man Lymphocytes # (Manual) POC ABG pH ABG pH POC ABG pCO2 POC ABG pO2 ABG pO2 ABG HCO3 ABG Base Excess ABG Hemoglobin Oxyhemoglobin Sodium 149 H Potassium Chloride 114.7 H Carbon Dioxide BUN 19 H Creatinine Glucose POC Glucose 118 H 107 H Lactic Acid Calcium 8.3 L TIBC Ferritin AST ALT Alkaline Phosphatase Total Creatine Kinase CK-MB (CK-2) CK-MB (CK-2) Rel Index Troponin T Total Protein Albumin Urine WBC (Auto) Vancomycin Trough 03/23/19 03/24/19 03/24/19 23:23 04:36 04:42 WBC 4.0 L RBC 2.46 L Hgb 7.9 L Hct 24.4 L MCV 99 H RDW 23.5 H Plt Count Lymph % (Auto) Lymph # Seg Neutrophils % Seg Neuts % (Manual) Lymphocytes % (Manual) Monocytes % (Manual) Eosinophils % (Manual) Nucleated RBC % Seg Neutrophils # Man Lymphocytes # (Manual) POC ABG pH ABG pH POC ABG pCO2 POC ABG pO2 ABG pO2 104.6 H ABG HCO3 ABG Base Excess ABG Hemoglobin 7.1 L Oxyhemoglobin Sodium Potassium Chloride Carbon Dioxide BUN Creatinine Glucose POC Glucose 112 H Lactic Acid Calcium TIBC Ferritin AST ALT Alkaline Phosphatase Total Creatine Kinase CK-MB (CK-2) CK-MB (CK-2) Rel Index Troponin T Total Protein Albumin Urine WBC (Auto) Vancomycin Trough 03/24/19 03/24/19 03/24/19 04:42 06:03 12:24 WBC RBC Hgb Hct MCV RDW Plt Count Lymph % (Auto) Lymph # Seg Neutrophils % Seg Neuts % (Manual) Lymphocytes % (Manual) Monocytes % (Manual) Eosinophils % (Manual) Nucleated RBC % Seg Neutrophils # Man Lymphocytes # (Manual) POC ABG pH ABG pH POC ABG pCO2 POC ABG pO2 ABG pO2 ABG HCO3 ABG Base Excess ABG Hemoglobin Oxyhemoglobin Sodium 149 H Potassium Chloride 115.7 H Carbon Dioxide BUN 18 H Creatinine Glucose 128 H POC Glucose 136 H 137 H Lactic Acid Calcium 8.3 L TIBC Ferritin AST ALT Alkaline Phosphatase Total Creatine Kinase CK-MB (CK-2) CK-MB (CK-2) Rel Index Troponin T Total Protein Albumin Urine WBC (Auto) Vancomycin Trough 03/24/19 03/24/19 03/25/19 17:48 23:51 04:45 WBC RBC 2.35 L Hgb 7.5 L Hct 23.4 L MCV 100 H RDW 24.7 H Plt Count Lymph % (Auto) Lymph # Seg Neutrophils % Seg Neuts % (Manual) Lymphocytes % (Manual) Monocytes % (Manual) Eosinophils % (Manual) Nucleated RBC % Seg Neutrophils # Man Lymphocytes # (Manual) POC ABG pH ABG pH POC ABG pCO2 POC ABG pO2 ABG pO2 ABG HCO3 ABG Base Excess ABG Hemoglobin Oxyhemoglobin Sodium Potassium Chloride Carbon Dioxide BUN Creatinine Glucose POC Glucose 139 H 131 H Lactic Acid Calcium TIBC Ferritin AST ALT Alkaline Phosphatase Total Creatine Kinase CK-MB (CK-2) CK-MB (CK-2) Rel Index Troponin T Total Protein Albumin Urine WBC (Auto) Vancomycin Trough 03/25/19 03/25/19 03/25/19 04:45 05:33 18:21 WBC RBC Hgb Hct MCV RDW Plt Count Lymph % (Auto) Lymph # Seg Neutrophils % Seg Neuts % (Manual) Lymphocytes % (Manual) Monocytes % (Manual) Eosinophils % (Manual) Nucleated RBC % Seg Neutrophils # Man Lymphocytes # (Manual) POC ABG pH ABG pH POC ABG pCO2 POC ABG pO2 ABG pO2 ABG HCO3 ABG Base Excess ABG Hemoglobin Oxyhemoglobin Sodium 146 H Potassium Chloride 114.1 H Carbon Dioxide BUN Creatinine Glucose 117 H POC Glucose 129 H 120 H Lactic Acid Calcium TIBC Ferritin AST ALT Alkaline Phosphatase Total Creatine Kinase CK-MB (CK-2) CK-MB (CK-2) Rel Index Troponin T Total Protein Albumin Urine WBC (Auto) Vancomycin Trough 03/26/19 03/26/19 03/26/19 04:40 06:50 16:18 WBC 4.1 L RBC 2.35 L Hgb 7.5 L Hct 23.4 L MCV 100 H RDW 25.1 H Plt Count Lymph % (Auto) Lymph # Seg Neutrophils % Seg Neuts % (Manual) Lymphocytes % (Manual) Monocytes % (Manual) Eosinophils % (Manual) Nucleated RBC % Seg Neutrophils # Man Lymphocytes # (Manual) POC ABG pH ABG pH POC ABG pCO2 POC ABG pO2 ABG pO2 ABG HCO3 ABG Base Excess ABG Hemoglobin Oxyhemoglobin Sodium Potassium Chloride 113.9 H Carbon Dioxide BUN Creatinine Glucose POC Glucose 115 H Lactic Acid Calcium TIBC Ferritin AST ALT Alkaline Phosphatase Total Creatine Kinase CK-MB (CK-2) CK-MB (CK-2) Rel Index Troponin T Total Protein Albumin Urine WBC (Auto) Vancomycin Trough 03/26/19 18:06 WBC RBC Hgb Hct MCV RDW Plt Count Lymph % (Auto) Lymph # Seg Neutrophils % Seg Neuts % (Manual) Lymphocytes % (Manual) Monocytes % (Manual) Eosinophils % (Manual) Nucleated RBC % Seg Neutrophils # Man Lymphocytes # (Manual) POC ABG pH ABG pH POC ABG pCO2 POC ABG pO2 ABG pO2 ABG HCO3 ABG Base Excess ABG Hemoglobin Oxyhemoglobin Sodium Potassium Chloride Carbon Dioxide BUN Creatinine Glucose POC Glucose 121 H Lactic Acid Calcium TIBC Ferritin AST ALT Alkaline Phosphatase Total Creatine Kinase CK-MB (CK-2) CK-MB (CK-2) Rel Index Troponin T Total Protein Albumin Urine WBC (Auto) Vancomycin Trough Chest x-ray: other (none today) Allied health notes reviewed: nursing
[2019-03-27] MEDS: IPRATROPIUM/ALBUTEROL SULFATE 3 ML AMPUL.NEB IH SCH ×4 (01:55→21:06)
[2019-03-27 05:59] LABS: Hematocrit 25.1 % (30.3-42.9); Hemoglobin 8.1 gm/dl (10.1-14.3); Mean Corpuscular HGB Conc 32 % (30-34); Mean Corpuscular Volume 100 fl (79-97); Platelet Count 189 K/mm3 (140-440); Red Blood Count 2.52 M/mm3 (3.65-5.03)
[2019-03-27 06:00] LABS: Red Cell Distribution Width 24.7 % (13.2-15.2)
[2019-03-27 06:14] LABS: BUN/Creatinine Ratio 27; Blood Urea Nitrogen 16 mg/dL (7-17); Calcium 8.7 mg/dL (8.4-10.2); Hemolysis Index 4
[2019-03-27] MEDS: FLUTICASONE PROPIONATE NASAL SPRAY 16 GM NS SCH (10:00)
[2019-03-27] MEDS: FAMOTIDINE 20 MG TAB PO SCH ×2 (10:00→21:50)
[2019-03-27] MEDS: RIFAXIMIN 550 MG TAB PO SCH ×2 (10:00→21:50)
[2019-03-27] MEDS: THIAMINE 100 MG TAB PO SCH (10:00)
[2019-03-27] MEDS: ENOXAPARIN 40 MG/0.4 ML INJ SUB-Q SCH (10:00)
[2019-03-27] MEDS: FOLIC ACID 1 MG TAB PO SCH (10:00)
--- NOTE | 2019-03-27 12:45 | Hem/Onc Progress Note ---
Assessment and Plan 1. h/o Leukopenia and the patient has a history of liver disease and alcohol usage. These may have a role. Thrombocytopenia may have a similar reason. Deficiency investigations. In January, B12 was 1400, folate 13. 2. Encephalopathy, being treated for sepsis. 3. History of electrolyte imbalance. 4. History of hypertension. 5. History of chronic obstructive pulmonary disease. 6. AST, ALT abnormality. 7. The patient was placed on reverse isolation. I will follow the patient during inpatient stay. ANEMIA - FOLLOW b12 - folate normal - will follow h/o plt low - may be sec to infection/meds/antibiotics - pt was on vanco - zosyn - daptomycin ID following pt b12- folate - iron ferritin WNL platelets better lovenox for DVT prevention WBC fluctuating - will follow there was a question if trach - PEG is needed - Patient Problems (1) Leukopenia Current Visit: Yes Status: Acute Qualifiers: Leukopenia type: unspecified Qualified Code(s): D72.819 - Decreased white blood cell count, unspecified Subjective Date of service: 03/27/19 Principal diagnosis: low wbc - anemia Interval history: still intubated Objective - Exam Narrative Exam: Pain - on vent General appearance - intubated Performance status - complete dependence Eyes - no icterus, ENT - no bleeding LNs cervical not palpable Neck - no LN Respiratory Normal Breath sounds - CTA anteriorly CVS S1 S2 + Extremities edema+ General GI Soft Rectal deferred female - deferred Skin warm Musculoskeletal on vent Neurologically intubated - Constitutional Vitals: Last Vital Signs Temp 97.8 F 03/27/19 03:38 Pulse 74 03/27/19 10:38 Resp 21 03/27/19 10:38 BP 163/91 03/27/19 10:38 Pulse Ox 100 03/27/19 10:38 - Labs Lab Results: Laboratory Results - last 24 hr 03/26/19 03/26/19 03/27/19 16:18 18:06 01:57 WBC RBC Hgb Hct MCV MCH MCHC RDW Plt Count Sodium Potassium Chloride Carbon Dioxide Anion Gap BUN Creatinine Estimated GFR BUN/Creatinine Ratio Glucose POC Glucose 115 H 121 H 130 H Calcium 03/27/19 03/27/19 05:27 05:27 WBC 2.9 L RBC 2.52 L Hgb 8.1 L Hct 25.1 L MCV 100 H MCH 32 MCHC 32 RDW 24.7 H Plt Count 189 Sodium 148 H Potassium 4.3 Chloride 114.5 H Carbon Dioxide 28 Anion Gap 10 BUN 16 Creatinine 0.6 L Estimated GFR > 60 BUN/Creatinine Ratio 27 Glucose 109 H POC Glucose Calcium 8.7 Medications & Allergies - Medications Allergies/Adverse Reactions: Allergies No Known Allergies Allergy (Verified 01/06/17 23:38) Per son Home Medications: Home Medications Medication Instructions Recorded Confirmed Last Taken Type Folic Acid [Folvite] 1 mg PO QDAY #30 tablet 08/12/18 03/10/19 03/09/19 Rx Haloperidol [Haldol] 0.5 mg PO Q6H PRN #30 tablet 08/12/18 03/10/19 03/10/19 Rx Lactulose [Cephulac] 20 gm PO Q12H #1 bottle 08/12/18 03/10/19 03/09/19 Rx Rifaximin [Xifaxan] 550 mg PO BID #60 tablet 08/12/18 03/10/19 03/09/19 Rx Thiamine [Vitamin B-1] 100 mg PO QDAY #30 tablet 08/12/18 03/10/19 03/09/19 Rx amLODIPine 5 mg PO QDAY #30 tablet 08/12/18 03/10/19 03/09/19 Rx chlordiazePOXIDE [Librium] 25 mg PO DAILY #3 capsule 08/12/18 03/10/19 03/09/19 Rx ALBUTEROL NEB's [Proventil] 2.5 mg IH TID PRN 02/06/19 03/10/19 03/09/19 History Acetaminophen [Tylenol] 650 mg PO Q6HR PRN 02/06/19 03/10/19 03/09/19 History Fluticasone [Flonase] 1 spray NS QDAY 02/06/19 03/10/19 03/09/19 History Ipratropium/Albuterol Sulfate 1 spray IH QID 02/06/19 03/10/19 03/09/19 History [Combivent Respimat] Melatonin [Melatonin 10MG CAP] 10 mg PO QHS 02/06/19 03/10/19 03/09/19 History Active Medications: Generic Name Dose Route Start Last Admin Trade Name Freq PRN Reason Stop Dose Admin Acetaminophen 650 mg 03/10/19 17:46 Tylenol PO Q4H PRN Pain MILD(1-3)/Fever >100.5/GUERRERO Albuterol 2.5 mg 03/11/19 03:52 Proventil IH TID PRN Wheezing Albuterol/Ipratropium 1 ampul 03/11/19 08:00 03/27/19 08:17 Duoneb *Not For Prn Use* IH 1 ampul Q6HRT CONNIE Administration Lipase/Protease/Amylase 1 each 03/14/19 13:25 Pancremartine Sahni 10,500 Unit FEEDTUBE PRN PRN For Clogged Feeding Tube Dextrose 50 ml 03/10/19 22:27 03/14/19 17:55 D50w (25gm) Syringe IV 50 ml Q30MIN PRN Administration Hypoglycemia Enoxaparin Sodium 40 mg 03/25/19 10:00 03/27/19 10:00 Enoxaparin SUB-Q 40 mg QDAY@1000 CONNIE Administration Famotidine 20 mg 03/22/19 10:00 03/27/19 10:00 Pepcid PO 20 mg BID CONNIE Administration Fluticasone Propionate 50 mcg 03/11/19 10:00 03/27/19 10:00 Flonase NS 50 mcg QDAY CONNIE Administration Folic Acid 1 mg 03/11/19 10:00 03/27/19 10:00 Folvite PO 1 mg QDAY CONNIE Administration Haloperidol 0.5 mg 03/11/19 03:52 03/12/19 09:32 Haldol PO 0.5 mg Q6H PRN Administration Agitation Hydrophilic Ointment 1 applic 03/14/19 06:51 Vaseline Lip Therapy TP Q2HR PRN Dry Lips Sodium Chloride 500 mls @ 15 mls/hr 03/17/19 20:00 Nacl 0.9% 500 Ml IV PRN CONNIE Insulin Human Lispro 0 unit 03/11/19 00:00 03/26/19 20:18 Humalog SUB-Q Not Given Q6HR [facility] Protocol Morphine Sulfate 2 mg 03/10/19 17:56 03/26/19 14:02 Morphine IV 2 mg Q4H PRN Administration Pain, Moderate (4-6) Multi-Ingred Cream/Lotion/Oil/Oint 1 applic 03/14/19 06:51 03/20/19 10:22 Artificial Tears Ophth Oint OU 0.35 applic Q4HR PRN Administration Dry Eye(s) Ondansetron HCl 4 mg 03/10/19 17:46 03/11/19 05:04 Zofran IV 4 mg Q8H PRN Administration Nausea And Vomiting Rifaximin 550 mg 03/11/19 10:00 03/27/19 10:00 Xifaxan PO 550 mg BID CONNIE Administration Scopolamine 1 each 03/20/19 15:00 03/26/19 17:25 Transderm-Scop TD 1 each Q3D CONNIE Administration Simple Syrup 15 ml 03/14/19 13:25 Simple Syrup FEEDTUBE PRN PRN Hypoglycemia Simple Syrup 30 ml 03/14/19 13:25 Simple Syrup FEEDTUBE PRN PRN Hypoglycemia Sodium Bicarbonate 325 mg 03/14/19 13:25 Sodium Bicarbonate FEEDTUBE PRN PRN For Clogged Feeding Tube Sodium Chloride 10 ml 03/10/19 22:00 03/27/19 10:00 Sodium Chloride Flush Syringe 10 Ml IV 10 ml BID CONNIE Administration Sodium Chloride 10 ml 03/10/19 17:46 03/13/19 22:50 Sodium Chloride Flush Syringe 10 Ml IV 10 ml PRN PRN Administration LINE FLUSH Thiamine HCl 100 mg 03/11/19 10:00 03/27/19 10:00 Vitamin B-1 PO 100 mg QDAY CONNIE Administration
--- NOTE | 2019-03-27 13:16 | Progress Note ---
Assessment and Plan Assessment and plan: Patient is a 68-year-old woman from [facility] with a history of hypertension, diabetes mellitus type 2, hep C, liver disease secondary to alcoholism and chronic renal disease who presented to [facility] ED with altered mental status, she is only minimally responsive at baseline Acute resp failure with hypoxia on mechanical ventilator> 96 hours: trach and PEG consideration at 7 days, Management per public policy mediator, daily weaning trials Septic shock/pneumonia: Continue antibiotics. ID consult appreciated KERRI is due to ATN and vasomotor nephropathy: -monitor cr level, stable and improved VRE UTI, septic shock, sepsis POA: resolved abx per ID, off vasopressors since 03/17/19, still in contact isolation Thrombocytopenia: likely 2/2 sepsis, stable Acute Metabolic encephalopathy with agitation: Probably due to the acute infection Acute on chronic Pancytopenia: continue to monitor levels, Oncology consulted Hypernatremia: probably 2/2 dehydration- improved on IV D5W- monitor BMP closely Hyperkalemia: s/p kayexalate, resolved Hypoglycemia: On hypoglycemic protocol H/o Chronic liver disease: Continue lactulose and rifaximin Nutrition: Continue tube feeding DVT prophylaxis: On SCDs due to thrombocytopenia Disposition: continue inpatient care, Prognosis is guarded/poor Tracheostomy/PEG anticipated. History Interval history: Patient was seen and examined. Follow-up on current diagnosis of AMS, respiratory failure, Not on Vasopressin or Dopamine IV drip at bedside. Patient eyes are open. No overnight events reported to me. Imaging, nursing note, chart, labs and old chart reviewed. Hospitalist Physical - Physical exam Narrative exam: Gen: critically ill, awake, eyes open, intubated not sedated on PS HEENT: NCAT, EOMI, PERRL, OP with ETT and NGT Neck: supple, no adenopathy, no thyromegaly, no JVD CVS/Heart: RRR, normal S1S2, pulses present bilaterally Chest/Lungs: Symmetrical chest expansion, good air entry bilaterally GI/Abdomen: soft, NTND, good bowel sounds, no guarding or rebound /Bladder: no suprapubic tenderness, no CVA or paraspinal tenderness Extermity/Skin: right neck IJ TLC MSK: sFROM x 4 Neuro: CN 2-12 grossly intact, doesn't follow commands Psych: calm - Constitutional Vitals: Temp Pulse Resp BP Pulse Ox 97.8 F 74 21 163/91 100 03/27/19 03:38 03/27/19 10:38 03/27/19 10:38 03/27/19 10:38 03/27/19 10:38 General appearance: Present: no acute distress, other (mildly agitated) Results - Labs CBC & Chem 7: 03/27/19 05:27 03/27/19 05:27 Labs: Laboratory Last Values WBC 2.9 K/mm3 (4.5-11.0) L 03/27/19 05:27 RBC 2.52 M/mm3 (3.65-5.03) L 03/27/19 05:27 Hgb 8.1 gm/dl (10.1-14.3) L 03/27/19 05:27 Hct 25.1 % (30.3-42.9) L 03/27/19 05:27 MCV 100 fl (79-97) H 03/27/19 05:27 MCH 32 pg (28-32) 03/27/19 05:27 MCHC 32 % (30-34) 03/27/19 05:27 RDW 24.7 % (13.2-15.2) H 03/27/19 05:27 Plt Count 189 K/mm3 (140-440) 03/27/19 05:27 Lymph % (Auto) 6.2 % (13.4-35.0) L 03/17/19 04:45 [place] % (Auto) Billing Auditor 03/21/19 08:12 Eos % (Auto) 3.2 % (0.0-4.3) 03/17/19 04:45 Baso % (Auto) 0.2 % (0.0-1.8) 03/17/19 04:45 Lymph # 0.5 K/mm3 (1.2-5.4) L 03/17/19 04:45 [place] # 0.6 K/mm3 (0.0-0.8) 03/17/19 04:45 Eos # 0.3 K/mm3 (0.0-0.4) 03/17/19 04:45 Baso # 0.0 K/mm3 (0.0-0.1) 03/17/19 04:45 Add Manual Diff Complete 03/21/19 08:12 Total Counted 100 03/21/19 08:12 Seg Neutrophils % 84.0 % (40.0-70.0) H 03/17/19 04:45 Seg Neuts % (Manual) 67.0 % (40.0-70.0) 03/21/19 08:12 Band Neutrophils % 2.0 % 03/21/19 08:12 Lymphocytes % (Manual) 13.0 % (13.4-35.0) L 03/21/19 08:12 Reactive Lymphs % (Man) 1.0 % 03/21/19 08:12 Monocytes % (Manual) 13.0 % (0.0-7.3) H 03/21/19 08:12 Eosinophils % (Manual) 3.0 % (0.0-4.3) 03/21/19 08:12 Basophils % (Manual) 0 % (0.0-1.8) 03/21/19 08:12 Metamyelocytes % 1.0 % 03/21/19 08:12 Myelocytes % 0 % 03/21/19 08:12 Promyelocytes % 0 % 03/21/19 08:12 Blast Cells % 0 % 03/21/19 08:12 Nucleated RBC % Not Reportable 03/21/19 08:12 Seg Neutrophils # 7.2 K/mm3 (1.8-7.7) 03/17/19 04:45 Seg Neutrophils # Man 2.6 K/mm3 (1.8-7.7) 03/21/19 08:12 Band Neutrophils # 0.1 K/mm3 03/21/19 08:12 Lymphocytes # (Manual) 0.5 K/mm3 (1.2-5.4) L 03/21/19 08:12 Abs React Lymphs (Man) 0.0 K/mm3 03/21/19 08:12 Monocytes # (Manual) 0.5 K/mm3 (0.0-0.8) 03/21/19 08:12 Eosinophils # (Manual) 0.1 K/mm3 (0.0-0.4) 03/21/19 08:12 Basophils # (Manual) 0.0 K/mm3 (0.0-0.1) 03/21/19 08:12 Metamyelocytes # 0.0 K/mm3 03/21/19 08:12 Myelocytes # 0.0 K/mm3 03/21/19 08:12 Promyelocytes # 0.0 K/mm3 03/21/19 08:12 Blast Cells # 0.0 K/mm3 03/21/19 08:12 Pathologist Review 03/18/19 05:45 WBC Morphology Not Reportable 03/21/19 08:12 Hypersegmented Neuts Not Reportable 03/21/19 08:12 Hyposegmented Neuts Not Reportable 03/21/19 08:12 Hypogranular Neuts Not Reportable 03/21/19 08:12 Smudge Cells Not Reportable 03/21/19 08:12 Toxic Granulation Not Reportable 03/21/19 08:12 Toxic Vacuolation Not Reportable 03/21/19 08:12 Dohle Bodies Not Reportable 03/21/19 08:12 Pelger-Huet Anomaly Not Reportable 03/21/19 08:12 Sheila Rods Not Reportable 03/21/19 08:12 Platelet Estimate Consistent w auto 03/21/19 08:12 Clumped Platelets Not Reportable 03/21/19 08:12 Plt Clumps, EDTA Not Reportable 03/21/19 08:12 Large Platelets Not Reportable 03/21/19 08:12 Giant Platelets Not Reportable 03/21/19 08:12 Platelet Satelliting Not Reportable 03/21/19 08:12 Plt Morphology Comment Not Reportable 03/21/19 08:12 RBC Morphology Not Reportable 03/21/19 08:12 Dimorphic RBCs Not Reportable 03/21/19 08:12 Polychromasia Not Reportable 03/21/19 08:12 Hypochromasia Not Reportable 03/21/19 08:12 Poikilocytosis Not Reportable 03/21/19 08:12 Anisocytosis 1+ 03/21/19 08:12 Microcytosis Not Reportable 03/21/19 08:12 Macrocytosis 1+ 03/21/19 08:12 Spherocytes Not Reportable 03/21/19 08:12 Pappenheimer Bodies Not Reportable 03/21/19 08:12 Sickle Cells Not Reportable 03/21/19 08:12 Target Cells Few 03/21/19 08:12 Tear Drop Cells Not Reportable 03/21/19 08:12 Ovalocytes Not Reportable 03/21/19 08:12 Helmet Cells Not Reportable 03/21/19 08:12 [place] Bodies Not Reportable 03/21/19 08:12 [place] Rings Not Reportable 03/21/19 08:12 [place] Cells Not Reportable 03/21/19 08:12 Bite Cells Not Reportable 03/21/19 08:12 Crenated Cell Not Reportable 03/21/19 08:12 Elliptocytes Not Reportable 03/21/19 08:12 Acanthocytes (Spur) Not Reportable 03/21/19 08:12 Rouleaux Not Reportable 03/21/19 08:12 Hemoglobin C Crystals Not Reportable 03/21/19 08:12 Schistocytes Not Reportable 03/21/19 08:12 Malaria parasites Not Reportable 03/21/19 08:12 [place] Bodies Not Reportable 03/21/19 08:12 Hem Pathologist Commnt No 03/21/19 08:12 POC ABG pH 7.500 (7.35-7.45) H 03/23/19 04:37 ABG pH 7.379 pH Units (7.350-7.450) 03/24/19 04:36 POC ABG pCO2 39.6 (35-45) 03/23/19 04:37 ABG pCO2 43.0 mm Hg 03/24/19 04:36 POC ABG pO2 60 (80-105) L 03/23/19 04:37 ABG pO2 104.6 mm Hg (80.0-90.0) H 03/24/19 04:36 POC ABG HCO3 30.8 (22-26 mml/L) 03/23/19 04:37 ABG HCO3 24.8 mmol/L (20.0-26.0) 03/24/19 04:36 POC ABG Total CO2 32 (23-27mmol/L) 03/23/19 04:37 POC ABG O2 Sat 93 03/23/19 04:37 ABG O2 Saturation 97.7 % (95.0-99.0) 03/24/19 04:36 ABG O2 Content 9.7 (0.0-44) 03/24/19 04:36 POC ABG Base Excess 8 ((-2) - (+3)mmol/L) 03/23/19 04:37 ABG Base Excess -0.3 mmol/L (-2.0-3.0) 03/24/19 04:36 ABG Hemoglobin 7.1 gm/dl (12.0-16.0) L 03/24/19 04:36 ABG Carboxyhemoglobin 2.4 % (0.0-5.0) 03/24/19 04:36 ABG Methemoglobin 0.4 % (0.0-1.5) 03/24/19 04:36 Oxyhemoglobin 95.0 % (95.0-99.0) 03/24/19 04:36 FiO2 25 % 03/24/19 04:36 Sodium 148 mmol/L (137-145) H 03/27/19 05:27 Potassium 4.3 mmol/L (3.6-5.0) 03/27/19 05:27 Chloride 114.5 mmol/L (98-107) H 03/27/19 05:27 Carbon Dioxide 28 mmol/L (22-30) 03/27/19 05:27 Anion Gap 10 mmol/L 03/27/19 05:27 BUN 16 mg/dL (7-17) 03/27/19 05:27 Creatinine 0.6 mg/dL (0.7-1.2) L 03/27/19 05:27 Estimated GFR > 60 ml/min 03/27/19 05:27 BUN/Creatinine Ratio 27 % 03/27/19 05:27 Glucose 109 mg/dL (65-100) H 03/27/19 05:27 POC Glucose 130 (70-105) H 03/27/19 01:57 Hemoglobin A1c 4.6 % (4-6) 03/10/19 13:16 Lactic Acid 0.80 mmol/L (0.7-2.0) 03/21/19 13:05 Calcium 8.7 mg/dL (8.4-10.2) 03/27/19 05:27 Iron 81 ug/dL (37-170) 03/17/19 11:15 TIBC 127 mcg/dL (250-450) L 03/17/19 11:15 Ferritin 512.4 ng/mL (13.0-400.0) H 03/17/19 11:15 Total Bilirubin 0.50 mg/dL (0.1-1.2) 03/14/19 06:44 AST 144 units/L (5-40) H 03/14/19 06:44 ALT 90 units/L (7-56) H 03/14/19 06:44 Alkaline Phosphatase 226 units/L (35-129) H 03/14/19 06:44 Ammonia 54.0 umol/L (25-60) 03/11/19 07:29 Total Creatine Kinase 194 units/L (30-135) H 03/16/19 05:19 CK-MB (CK-2) 8.6 ng/mL (0.0-4.0) H 03/14/19 06:44 CK-MB (CK-2) Rel Index 7.1 (0-4) H 03/14/19 06:44 Troponin T 0.056 ng/mL (0.00-0.029) H D 03/14/19 06:44 Total Protein 6.7 g/dL (6.3-8.2) 03/14/19 06:44 Albumin 2.2 g/dL (3.9-5) L 03/14/19 06:44 Albumin/Globulin Ratio 0.5 % 03/14/19 06:44 Triglycerides 62 mg/dL (2-149) 03/14/19 06:44 Cholesterol 133 mg/dL (50-199) 03/14/19 06:44 LDL Cholesterol Direct 89 mg/dL (50-130) 03/14/19 06:44 HDL Cholesterol 43 mg/dL (40-59) 03/14/19 06:44 Cholesterol/HDL Ratio 3.09 % 03/14/19 06:44 Procalcitonin 1.19 ng/mL (<0.15) 03/21/19 13:05 Urine Color Straw (Yellow) 03/10/19 14:38 Urine Turbidity Clear (Clear) 03/10/19 14:38 Urine pH 7.0 (5.0-7.0) 03/10/19 14:38 Ur Specific [place] 1.009 (1.003-1.030) 03/10/19 14:38 Urine Protein <15 mg/dl mg/dL (Negative) 03/10/19 14:38 Urine Glucose (UA) Neg mg/dL (Negative) 03/10/19 14:38 Urine Ketones Neg mg/dL (Negative) 03/10/19 14:38 Urine Blood Neg (Negative) 03/10/19 14:38 Urine Nitrite Neg (Negative) 03/10/19 14:38 Urine Bilirubin Neg (Negative) 03/10/19 14:38 Urine Urobilinogen < 2.0 mg/dL (<2.0) 03/10/19 14:38 Ur Leukocyte Esterase Sm (Negative) 03/10/19 14:38 Urine WBC (Auto) 9.0 /HPF (0.0-6.0) H 03/10/19 14:38 Urine RBC (Auto) 2.0 /HPF (0.0-6.0) 03/10/19 14:38 U Epithel Cells (Auto) 1.0 /HPF (0-13.0) 03/10/19 14:38 Urine Bacteria (Auto) 2+ /HPF (Negative) 03/10/19 14:38 Urine Mucus Few /HPF 03/10/19 14:38 Vancomycin Trough 39.7 ug/mL (5.0-20.0) H 03/13/19 05:58 Random Vancomycin 27.6 ug/mL (0-40.0) 03/14/19 05:44 Active Medications - Current Medications Current Medications: Generic Name Dose Route Start Last Admin Trade Name Freq PRN Reason Stop Dose Admin Acetaminophen 650 mg 03/10/19 17:46 Tylenol PO Q4H PRN Pain MILD(1-3)/Fever >100.5/GUERRERO Albuterol 2.5 mg 03/11/19 03:52 Proventil IH TID PRN Wheezing Albuterol/Ipratropium 1 ampul 03/11/19 08:00 03/27/19 08:17 Duoneb *Not For Prn Use* IH 1 ampul Q6HRT CONNIE Administration Lipase/Protease/Amylase 1 each 03/14/19 13:25 Pancremartine Sahni 10,500 Unit FEEDTUBE PRN PRN For Clogged Feeding Tube Dextrose 50 ml 03/10/19 22:27 03/14/19 17:55 D50w (25gm) Syringe IV 50 ml Q30MIN PRN Administration Hypoglycemia Enoxaparin Sodium 40 mg 03/25/19 10:00 03/27/19 10:00 Enoxaparin SUB-Q 40 mg QDAY@1000 CONNIE Administration Famotidine 20 mg 03/22/19 10:00 03/27/19 10:00 Pepcid PO 20 mg BID CONNIE Administration Fluticasone Propionate 50 mcg 03/11/19 10:00 03/27/19 10:00 Flonase NS 50 mcg QDAY CONNIE Administration Folic Acid 1 mg 03/11/19 10:00 03/27/19 10:00 Folvite PO 1 mg QDAY CONNIE Administration Haloperidol 0.5 mg 03/11/19 03:52 03/12/19 09:32 Haldol PO 0.5 mg Q6H PRN Administration Agitation Hydrophilic Ointment 1 applic 03/14/19 06:51 Vaseline Lip Therapy TP Q2HR PRN Dry Lips Sodium Chloride 500 mls @ 15 mls/hr 03/17/19 20:00 Nacl 0.9% 500 Ml IV PRN [facility] Insulin Human Lispro 0 unit 03/11/19 00:00 03/26/19 20:18 Humalog SUB-Q Not Given Q6HR [facility] Protocol Morphine Sulfate 2 mg 03/10/19 17:56 03/26/19 14:02 Morphine IV 2 mg Q4H PRN Administration Pain, Moderate (4-6) Multi-Ingred Cream/Lotion/Oil/Oint 1 applic 03/14/19 06:51 03/20/19 10:22 Artificial Tears Ophth Oint OU 0.35 applic Q4HR PRN Administration Dry Eye(s) Ondansetron HCl 4 mg 03/10/19 17:46 03/11/19 05:04 Zofran IV 4 mg Q8H PRN Administration Nausea And Vomiting Rifaximin 550 mg 03/11/19 10:00 03/27/19 10:00 Xifaxan PO 550 mg BID CONNIE Administration Scopolamine 1 each 03/20/19 15:00 03/26/19 17:25 Transderm-Scop TD 1 each Q3D CONNIE Administration Simple Syrup 15 ml 03/14/19 13:25 Simple Syrup FEEDTUBE PRN PRN Hypoglycemia Simple Syrup 30 ml 03/14/19 13:25 Simple Syrup FEEDTUBE PRN PRN Hypoglycemia Sodium Bicarbonate 325 mg 03/14/19 13:25 Sodium Bicarbonate FEEDTUBE PRN PRN For Clogged Feeding Tube Sodium Chloride 10 ml 03/10/19 22:00 03/27/19 10:00 Sodium Chloride Flush Syringe 10 Ml IV 10 ml BID CONNIE Administration Sodium Chloride 10 ml 03/10/19 17:46 03/13/19 22:50 Sodium Chloride Flush Syringe 10 Ml IV 10 ml PRN PRN Administration LINE FLUSH Thiamine HCl 100 mg 03/11/19 10:00 03/27/19 10:00 Vitamin B-1 PO 100 mg QDAY CONNIE Administration Nutrition/Malnutrition Assess - Dietary Evaluation Nutrition/Malnutrition Findings: Nutrition Notes Start: 03/11/19 10:01 Freq: Status: Active Protocol: Document 03/24/19 12:19 AP (Rec: 03/24/19 12:32 AP [id number]) Co-Sign 03/24/19 12:19 LM Nutrition Notes Need for Assessment generated from: MD Order Initial or Follow up Reassessment Current Diagnosis COPD,Decubitus(Pressure Ulcer) ,Hypertension Other Pertinent Diagnosis AMS/nonverbal, Hep C, Anemia, Renal stones Current Diet Vital AF 1.2 at 55ml/hr Labs/Tests Na 149 Pertinent Medications Reviewed Height 5 ft 3 in Weight 102.2 kg Sentinel Body Weight (kg) 52.27 BMI 39.9 Weight Status Obese Subjective/Other Information F/U for TF rate/tolerance. Vital AF 1.2 running at 55ml/ hr. Pt to receive trach/PEG next week per RN. Percent of energy/protein needs met: 93%/94% Minimum of two criteria No Reduced Mulling Machine Operator Strength Measurably Reduced (severe) #1 Nutrition Diagnosis Inadequate oral intake Diagnosis Progress(for reassessment Continues documentation) Is patient on ventilator? Yes Is Patient Ambulatory and/or Out of Bed No REE-([facility]-confined to bed) 1842.456 Nutrition Intervention Change Diet Order: TF Nutrition Support: Vital AF 1.2 at 55ml/hr. Increase flush to 200ml q4h for hypernatremia. Once resolved flush 100ml q4h. Kcal 1,584 Protein (gm) 99 Fluid (mL) 1,071 Goal #1 TF tolerance Goal #2 TF continue to meet at least 80% of estimated energy and protein needs. Anticipated Discharge Needs: unable to determine at this time Follow-Up By: 03/28/19 Additional Comments F/U for TF tolerance, Na labs.
[2019-03-27] MEDS: MORPHINE 2 MG/1 ML INJ IV PRN (13:31)
[2019-03-27] MEDS: INSULIN LISPRO 100 UNIT/ML SUB-Q SCH ×3 (13:32→19:26)
--- NOTE | 2019-03-27 14:42 | Progress Note ---
Assessment and Plan Severe sepsis with septic shock Cardiac arrest (asystole with ROSC) Acute hypoxic respiratory failure on MVS Lactic acidosis- multifactorial (resolved) Acute toxic- metabolic encephalopathy Aspiration pneumonia VRE UTI Hypernatremia Thrombocytopenia h/o Cirrhosis h/o Alcohol abuse disorder KERRI Hyperkalemia - consult placed already for tracheastomy & PEG - continue daily SAT's and SBT assessment meanwhile, as tolerated - continue Lung protective strategies - continue to wean FIO2 for O2 sats >90% - VAP bundle addressed (Aspiration precautions, HOB > 40 degrees) - continue to wean per pulmonary driven protocol's otherwise - prn CXR's & ABG's at this point - CT head done and no acute process noted - weaned off vasopressors now - discontinued steen catheter - place scopolamine patch for secretion control - continue to avoid nephrotoxins and adjust all medications fro GFR and CrCL - continue enteral nutrition and advance to goal rate as tolerated (hold for tentative extubation) - continue agitation management / Pain management per CPOT - S/P empiric antibiotics course for aspiration PNA and VRE (ID input appreciated) - Continue contact isolation - Continue VTE prophylaxis (SCDs), trend platelet counts and monitor for bleeding - continue stress ulcer prophylaxis with PPI - continue accuchecks with glycemic control for SSI (While critically ill target blood glucose of 140-180 mg/dL; avoid hypoglycemia) - Continue mobility protocol for pressure ulcer prevention - Continue to monitor hemodynamics closely - Monitor electrolyte profile closely and replete as indicated - continue chronic home medications per attending and as clinically indicated - continue other care per attending / other consultants .... re-evaluate in am & prn CONDITION: CRITICAL PROGNOSIS: GUARDED CODE STATUS: FULL CODE The high probability of a clinically significant, sudden or life-threatening deterioration of the [respiratory, cardiovascular, neurologic & hematologic] system(s) required my full and direct attention, intervention and personal management. The aggregate critical care time was [34] minutes without overlap. Time includes spent on; [x] Data Review and interpretation [x] Patient assessment and monitoring of vital signs [x] Documentation [x] Medication orders and management Subjective Date of service: 03/27/19 Principal diagnosis: Severe sepsis with shock; Ac. hypoxemic resp failure; cardiac arrest; PNA Interval history: Follow up for severe sepsis with septic shock; acute hypoxemic respiratory failure on MVS; s/p cardiac arrest with ROSC; VRE UTI; Aspiration pneumonia Seen and examined at bedside; 24hour events reviewed; nursing and respiratory care staff consulted; no adverse overnight events reported to me; resting in bed; remains on MVS; AMS is persistent; not weaning well but on PSV with P-supp of 16 cm H2O; no new issues otherwise Objective Vital Signs - 12hr 03/27/19 03/27/19 03/27/19 03:00 03:36 03:38 Temperature 97.8 F Pulse Rate 70 68 Pulse Rate [ Anterior Bilateral] Pulse Rate [ From Monitor] Respiratory 14 Rate Respiratory Rate [Anterior Bilateral] Blood Pressure 136/77 O2 Sat by Pulse 100 Oximetry 03/27/19 03/27/19 03/27/19 04:00 05:00 06:00 Temperature Pulse Rate 74 65 50 L Pulse Rate [ Anterior Bilateral] Pulse Rate [ 59 L From Monitor] Respiratory 16 12 10 L Rate Respiratory Rate [Anterior Bilateral] Blood Pressure 150/87 124/74 124/74 O2 Sat by Pulse 99 100 100 Oximetry 03/27/19 03/27/19 03/27/19 07:00 08:00 08:13 Temperature 96.3 F L Pulse Rate 59 L 68 67 Pulse Rate [ Anterior Bilateral] Pulse Rate [ 64 From Monitor] Respiratory 13 12 Rate Respiratory Rate [Anterior Bilateral] Blood Pressure 143/81 141/83 141/83 O2 Sat by Pulse 98 98 98 Oximetry 03/27/19 03/27/19 03/27/19 08:18 09:00 10:00 Temperature Pulse Rate 61 74 Pulse Rate [ 65 Anterior Bilateral] Pulse Rate [ From Monitor] Respiratory 12 20 Rate Respiratory 14 Rate [Anterior Bilateral] Blood Pressure 154/88 163/91 O2 Sat by Pulse Oximetry 03/27/19 03/27/19 03/27/19 10:38 11:00 12:00 Temperature 96.6 F L Pulse Rate 74 73 79 Pulse Rate [ Anterior Bilateral] Pulse Rate [ From Monitor] Respiratory 21 20 16 Rate Respiratory Rate [Anterior Bilateral] Blood Pressure 163/91 166/98 165/101 O2 Sat by Pulse 100 100 93 Oximetry 03/27/19 03/27/19 13:00 14:09 Temperature Pulse Rate 83 80 Pulse Rate [ Anterior Bilateral] Pulse Rate [ From Monitor] Respiratory 18 18 Rate Respiratory Rate [Anterior Bilateral] Blood Pressure 165/101 O2 Sat by Pulse 95 Oximetry Constitutional: appears uncomfortable, other (elderly looking obese AAF with m ild respiratory distress on MVS ) Eyes: non-icteric ENT: oropharynx moist, other (ETT 23 cm JA) Neck: supple, no lymphadenopathy, no JVD, other (large neck circumference) Effort: mildly labored Ascultation: Bilateral: diminished breath sounds, rales (scant in bases) Percussion: Bilateral: not dull Cardiovascular: regular rate and rhythm, other (S1, S2, no murmurs, gallops or rubs rhythm strip shows accelerated junctional ) Gastrointestinal: normoactive bowel sounds, soft, non-tender, non-distended, other (No HSM) Integumentary: normal Extremities: no cyanosis, no edema, pulses normal, no ischemia or petechiae Neurologic: non-focal exam (grossly), pupils equal and round, unable to assess, other (lethargic) Psychiatric: other (unable to assess) CBC and BMP: 03/29/19 05:00 03/29/19 05:00 ABG, PT/INR, D-dimer: ABG POC ABG pH 7.500 (7.35-7.45) H 03/23/19 04:37 ABG pH 7.379 pH Units (7.350-7.450) 03/24/19 04:36 POC ABG pCO2 39.6 (35-45) 03/23/19 04:37 ABG pCO2 43.0 mm Hg 03/24/19 04:36 POC ABG pO2 60 (80-105) L 03/23/19 04:37 ABG pO2 104.6 mm Hg (80.0-90.0) H 03/24/19 04:36 POC ABG HCO3 30.8 (22-26 mml/L) 03/23/19 04:37 POC ABG Total CO2 32 (23-27mmol/L) 03/23/19 04:37 POC ABG O2 Sat 93 03/23/19 04:37 ABG O2 Saturation 97.7 % (95.0-99.0) 03/24/19 04:36 Abnormal lab findings: Abnormal Labs 03/10/19 03/10/19 03/10/19 13:16 13:16 14:38 WBC 0.8 L* RBC 3.35 L Hgb Hct MCV RDW 22.1 H Plt Count 78 L Lymph % (Auto) Lymph # Seg Neutrophils % Seg Neuts % (Manual) Lymphocytes % (Manual) 49.0 H Monocytes % (Manual) Eosinophils % (Manual) Nucleated RBC % Seg Neutrophils # Man 0.3 L Lymphocytes # (Manual) 0.4 L POC ABG pH ABG pH POC ABG pCO2 POC ABG pO2 ABG pO2 ABG HCO3 ABG Base Excess ABG Hemoglobin Oxyhemoglobin Sodium 147 H Potassium 5.4 H Chloride 111.8 H Carbon Dioxide BUN Creatinine 0.6 L Glucose POC Glucose Lactic Acid Calcium TIBC Ferritin AST 128 H ALT 79 H Alkaline Phosphatase 174 H Total Creatine Kinase CK-MB (CK-2) CK-MB (CK-2) Rel Index Troponin T Total Protein Albumin 2.4 L Urine WBC (Auto) 9.0 H Vancomycin Trough 03/10/19 03/10/19 03/11/19 21:22 23:36 07:29 WBC RBC Hgb Hct MCV RDW Plt Count Lymph % (Auto) Lymph # Seg Neutrophils % Seg Neuts % (Manual) Lymphocytes % (Manual) Monocytes % (Manual) Eosinophils % (Manual) Nucleated RBC % Seg Neutrophils # Man Lymphocytes # (Manual) POC ABG pH ABG pH POC ABG pCO2 POC ABG pO2 ABG pO2 ABG HCO3 ABG Base Excess ABG Hemoglobin Oxyhemoglobin Sodium 148 H Potassium 5.6 H Chloride 122.3 H Carbon Dioxide 20 L BUN Creatinine 0.6 L Glucose POC Glucose 65 L 112 H Lactic Acid Calcium TIBC Ferritin AST 102 H ALT 65 H Alkaline Phosphatase 134 H Total Creatine Kinase CK-MB (CK-2) CK-MB (CK-2) Rel Index Troponin T Total Protein 6.1 L Albumin 1.8 L Urine WBC (Auto) Vancomycin Trough 03/11/19 03/11/19 03/11/19 11:25 15:28 18:00 WBC 1.2 L* RBC Hgb Hct MCV RDW 22.1 H Plt Count 53 L Lymph % (Auto) Lymph # Seg Neutrophils % Seg Neuts % (Manual) 78.6 H Lymphocytes % (Manual) 9.5 L Monocytes % (Manual) 9.5 H Eosinophils % (Manual) Nucleated RBC % Seg Neutrophils # Man 0.9 L Lymphocytes # (Manual) 0.1 L POC ABG pH ABG pH POC ABG pCO2 POC ABG pO2 ABG pO2 ABG HCO3 ABG Base Excess ABG Hemoglobin Oxyhemoglobin Sodium Potassium Chloride Carbon Dioxide BUN Creatinine Glucose POC Glucose 117 H 118 H Lactic Acid Calcium TIBC Ferritin AST ALT Alkaline Phosphatase Total Creatine Kinase CK-MB (CK-2) CK-MB (CK-2) Rel Index Troponin T Total Protein Albumin Urine WBC (Auto) Vancomycin Trough 03/12/19 03/12/19 03/12/19 00:19 05:45 08:55 WBC 2.4 L RBC 3.33 L Hgb Hct MCV RDW 22.8 H Plt Count 58 L Lymph % (Auto) Lymph # Seg Neutrophils % Seg Neuts % (Manual) 93.0 H Lymphocytes % (Manual) 4.0 L Monocytes % (Manual) Eosinophils % (Manual) Nucleated RBC % 7.0 H Seg Neutrophils # Man Lymphocytes # (Manual) 0.1 L POC ABG pH ABG pH POC ABG pCO2 POC ABG pO2 ABG pO2 ABG HCO3 ABG Base Excess ABG Hemoglobin Oxyhemoglobin Sodium Potassium Chloride Carbon Dioxide BUN Creatinine Glucose POC Glucose 124 H 116 H Lactic Acid Calcium TIBC Ferritin AST ALT Alkaline Phosphatase Total Creatine Kinase CK-MB (CK-2) CK-MB (CK-2) Rel Index Troponin T Total Protein Albumin Urine WBC (Auto) Vancomycin Trough 03/12/19 03/13/19 03/13/19 08:55 00:18 03:48 WBC 2.7 L RBC 3.06 L Hgb 9.4 L Hct 29.4 L MCV RDW 23.1 H Plt Count 62 L Lymph % (Auto) Lymph # Seg Neutrophils % Seg Neuts % (Manual) 76.0 H Lymphocytes % (Manual) Monocytes % (Manual) Eosinophils % (Manual) Nucleated RBC % 11.0 H Seg Neutrophils # Man Lymphocytes # (Manual) 0.5 L POC ABG pH ABG pH POC ABG pCO2 POC ABG pO2 ABG pO2 ABG HCO3 ABG Base Excess ABG Hemoglobin Oxyhemoglobin Sodium Potassium 5.6 H Chloride 114.2 H Carbon Dioxide 21 L BUN Creatinine Glucose POC Glucose 119 H Lactic Acid Calcium TIBC Ferritin AST ALT Alkaline Phosphatase Total Creatine Kinase CK-MB (CK-2) CK-MB (CK-2) Rel Index Troponin T Total Protein Albumin Urine WBC (Auto) Vancomycin Trough 03/13/19 03/13/19 03/13/19 03:48 05:52 05:58 WBC RBC Hgb Hct MCV RDW Plt Count Lymph % (Auto) Lymph # Seg Neutrophils % Seg Neuts % (Manual) Lymphocytes % (Manual) Monocytes % (Manual) Eosinophils % (Manual) Nucleated RBC % Seg Neutrophils # Man Lymphocytes # (Manual) POC ABG pH ABG pH POC ABG pCO2 POC ABG pO2 ABG pO2 ABG HCO3 ABG Base Excess ABG Hemoglobin Oxyhemoglobin Sodium Potassium Chloride 112.7 H Carbon Dioxide 21 L BUN Creatinine Glucose 103 H POC Glucose 114 H Lactic Acid Calcium TIBC Ferritin AST ALT Alkaline Phosphatase Total Creatine Kinase CK-MB (CK-2) CK-MB (CK-2) Rel Index Troponin T Total Protein Albumin Urine WBC (Auto) Vancomycin Trough 39.7 H 03/13/19 03/13/19 03/14/19 12:12 18:00 00:17 WBC RBC Hgb Hct MCV RDW Plt Count Lymph % (Auto) Lymph # Seg Neutrophils % Seg Neuts % (Manual) Lymphocytes % (Manual) Monocytes % (Manual) Eosinophils % (Manual) Nucleated RBC % Seg Neutrophils # Man Lymphocytes # (Manual) POC ABG pH ABG pH POC ABG pCO2 POC ABG pO2 ABG pO2 ABG HCO3 ABG Base Excess ABG Hemoglobin Oxyhemoglobin Sodium Potassium Chloride Carbon Dioxide BUN Creatinine Glucose POC Glucose 116 H 132 H 130 H Lactic Acid Calcium TIBC Ferritin AST ALT Alkaline Phosphatase Total Creatine Kinase CK-MB (CK-2) CK-MB (CK-2) Rel Index Troponin T Total Protein Albumin Urine WBC (Auto) Vancomycin Trough 03/14/19 03/14/19 03/14/19 05:24 06:44 06:44 WBC 2.6 L RBC 3.00 L Hgb 9.2 L Hct 28.3 L MCV RDW 22.5 H Plt Count 44 L Lymph % (Auto) Lymph # Seg Neutrophils % Seg Neuts % (Manual) 75.0 H Lymphocytes % (Manual) Monocytes % (Manual) Eosinophils % (Manual) 5.0 H Nucleated RBC % 19.0 H Seg Neutrophils # Man Lymphocytes # (Manual) 0.4 L POC ABG pH ABG pH POC ABG pCO2 POC ABG pO2 ABG pO2 ABG HCO3 ABG Base Excess ABG Hemoglobin Oxyhemoglobin Sodium Potassium Chloride 110.2 H Carbon Dioxide 21 L BUN Creatinine 1.3 H Glucose POC Glucose 110 H Lactic Acid Calcium TIBC Ferritin AST 144 H ALT 90 H Alkaline Phosphatase 226 H Total Creatine Kinase CK-MB (CK-2) 8.6 H CK-MB (CK-2) Rel Index 7.1 H Troponin T 0.056 H D Total Protein Albumin 2.2 L Urine WBC (Auto) Vancomycin Trough 03/14/19 03/14/19 03/14/19 09:05 11:54 12:15 WBC RBC Hgb Hct MCV RDW Plt Count Lymph % (Auto) Lymph # Seg Neutrophils % Seg Neuts % (Manual) Lymphocytes % (Manual) Monocytes % (Manual) Eosinophils % (Manual) Nucleated RBC % Seg Neutrophils # Man Lymphocytes # (Manual) POC ABG pH 7.283 L 7.458 H ABG pH POC ABG pCO2 54.9 H 32.7 L POC ABG pO2 76 L ABG pO2 ABG HCO3 ABG Base Excess ABG Hemoglobin Oxyhemoglobin Sodium Potassium Chloride Carbon Dioxide BUN Creatinine Glucose POC Glucose Lactic Acid 2.10 H* Calcium TIBC Ferritin AST ALT Alkaline Phosphatase Total Creatine Kinase CK-MB (CK-2) CK-MB (CK-2) Rel Index Troponin T Total Protein Albumin Urine WBC (Auto) Vancomycin Trough 03/14/19 03/14/19 03/14/19 12:43 13:35 15:35 WBC RBC Hgb Hct MCV RDW Plt Count Lymph % (Auto) Lymph # Seg Neutrophils % Seg Neuts % (Manual) Lymphocytes % (Manual) Monocytes % (Manual) Eosinophils % (Manual) Nucleated RBC % Seg Neutrophils # Man Lymphocytes # (Manual) POC ABG pH ABG pH POC ABG pCO2 POC ABG pO2 ABG pO2 ABG HCO3 ABG Base Excess ABG Hemoglobin Oxyhemoglobin Sodium Potassium Chloride Carbon Dioxide BUN Creatinine Glucose POC Glucose 68 L Lactic Acid 2.10 H* 3.50 H* Calcium TIBC Ferritin AST ALT Alkaline Phosphatase Total Creatine Kinase CK-MB (CK-2) CK-MB (CK-2) Rel Index Troponin T Total Protein Albumin Urine WBC (Auto) Vancomycin Trough 03/14/19 03/14/19 03/14/19 17:34 17:46 17:55 WBC RBC Hgb Hct MCV RDW Plt Count Lymph % (Auto) Lymph # Seg Neutrophils % Seg Neuts % (Manual) Lymphocytes % (Manual) Monocytes % (Manual) Eosinophils % (Manual) Nucleated RBC % Seg Neutrophils # Man Lymphocytes # (Manual) POC ABG pH 7.241 L 7.244 L ABG pH POC ABG pCO2 50.4 H 50.1 H POC ABG pO2 156 H ABG pO2 ABG HCO3 ABG Base Excess ABG Hemoglobin Oxyhemoglobin Sodium Potassium Chloride Carbon Dioxide BUN Creatinine Glucose POC Glucose 49 L Lactic Acid Calcium TIBC Ferritin AST ALT Alkaline Phosphatase Total Creatine Kinase CK-MB (CK-2) CK-MB (CK-2) Rel Index Troponin T Total Protein Albumin Urine WBC (Auto) Vancomycin Trough 03/14/19 03/14/19 03/14/19 18:29 18:32 20:27 WBC RBC Hgb Hct MCV RDW Plt Count Lymph % (Auto) Lymph # Seg Neutrophils % Seg Neuts % (Manual) Lymphocytes % (Manual) Monocytes % (Manual) Eosinophils % (Manual) Nucleated RBC % Seg Neutrophils # Man Lymphocytes # (Manual) POC ABG pH ABG pH POC ABG pCO2 POC ABG pO2 ABG pO2 ABG HCO3 ABG Base Excess ABG Hemoglobin Oxyhemoglobin Sodium Potassium Chloride 112.6 H Carbon Dioxide 19 L BUN Creatinine 1.4 H Glucose 132 H POC Glucose 57 L 115 H Lactic Acid Calcium TIBC Ferritin AST ALT Alkaline Phosphatase Total Creatine Kinase CK-MB (CK-2) CK-MB (CK-2) Rel Index Troponin T Total Protein Albumin Urine WBC (Auto) Vancomycin Trough 03/14/19 03/14/19 03/15/19 23:47 Unknown 04:00 WBC RBC 2.77 L Hgb 8.5 L Hct 27.3 L MCV 98 H RDW 23.0 H Plt Count 27 L Lymph % (Auto) Lymph # Seg Neutrophils % Seg Neuts % (Manual) 75.0 H Lymphocytes % (Manual) 1.0 L Monocytes % (Manual) Eosinophils % (Manual) Nucleated RBC % 4.0 H Seg Neutrophils # Man Lymphocytes # (Manual) 0.1 L POC ABG pH ABG pH POC ABG pCO2 POC ABG pO2 ABG pO2 ABG HCO3 ABG Base Excess ABG Hemoglobin Oxyhemoglobin Sodium Potassium Chloride Carbon Dioxide BUN Creatinine Glucose POC Glucose 116 H Lactic Acid 3.30 H* Calcium TIBC Ferritin AST ALT Alkaline Phosphatase Total Creatine Kinase CK-MB (CK-2) CK-MB (CK-2) Rel Index Troponin T Total Protein Albumin Urine WBC (Auto) Vancomycin Trough 03/15/19 03/15/19 03/15/19 04:00 06:24 07:35 WBC RBC Hgb Hct MCV RDW Plt Count Lymph % (Auto) Lymph # Seg Neutrophils % Seg Neuts % (Manual) Lymphocytes % (Manual) Monocytes % (Manual) Eosinophils % (Manual) Nucleated RBC % Seg Neutrophils # Man Lymphocytes # (Manual) POC ABG pH 7.282 L ABG pH POC ABG pCO2 50.4 H POC ABG pO2 71 L ABG pO2 ABG HCO3 ABG Base Excess ABG Hemoglobin Oxyhemoglobin Sodium Potassium Chloride 112.1 H Carbon Dioxide 19 L BUN Creatinine 1.5 H Glucose 123 H POC Glucose 140 H Lactic Acid Calcium 8.2 L TIBC Ferritin AST ALT Alkaline Phosphatase Total Creatine Kinase CK-MB (CK-2) CK-MB (CK-2) Rel Index Troponin T Total Protein Albumin Urine WBC (Auto) Vancomycin Trough 03/15/19 03/15/19 03/16/19 11:47 23:25 04:33 WBC RBC Hgb Hct MCV RDW Plt Count Lymph % (Auto) Lymph # Seg Neutrophils % Seg Neuts % (Manual) Lymphocytes % (Manual) Monocytes % (Manual) Eosinophils % (Manual) Nucleated RBC % Seg Neutrophils # Man Lymphocytes # (Manual) POC ABG pH ABG pH 7.304 L POC ABG pCO2 POC ABG pO2 ABG pO2 174.4 H ABG HCO3 19.2 L ABG Base Excess -6.6 L ABG Hemoglobin 8.5 L Oxyhemoglobin Sodium Potassium Chloride Carbon Dioxide BUN Creatinine Glucose POC Glucose 161 H 139 H Lactic Acid Calcium TIBC Ferritin AST ALT Alkaline Phosphatase Total Creatine Kinase CK-MB (CK-2) CK-MB (CK-2) Rel Index Troponin T Total Protein Albumin Urine WBC (Auto) Vancomycin Trough 03/16/19 03/16/19 03/16/19 05:19 05:19 05:19 WBC RBC 2.92 L Hgb 8.9 L Hct 28.0 L MCV RDW 22.8 H Plt Count 42 L Lymph % (Auto) Lymph # Seg Neutrophils % Seg Neuts % (Manual) 84.0 H Lymphocytes % (Manual) 5.0 L Monocytes % (Manual) Eosinophils % (Manual) Nucleated RBC % Seg Neutrophils # Man 7.8 H Lymphocytes # (Manual) 0.5 L POC ABG pH ABG pH POC ABG pCO2 POC ABG pO2 ABG pO2 ABG HCO3 ABG Base Excess ABG Hemoglobin Oxyhemoglobin Sodium Potassium 5.2 H Chloride 114.0 H Carbon Dioxide 18 L BUN 22 H Creatinine 1.7 H Glucose 109 H POC Glucose Lactic Acid Calcium 8.0 L TIBC Ferritin AST ALT Alkaline Phosphatase Total Creatine Kinase 194 H CK-MB (CK-2) CK-MB (CK-2) Rel Index Troponin T Total Protein Albumin Urine WBC (Auto) Vancomycin Trough 03/16/19 03/16/19 03/16/19 05:51 12:19 17:42 WBC RBC Hgb Hct MCV RDW Plt Count Lymph % (Auto) Lymph # Seg Neutrophils % Seg Neuts % (Manual) Lymphocytes % (Manual) Monocytes % (Manual) Eosinophils % (Manual) Nucleated RBC % Seg Neutrophils # Man Lymphocytes # (Manual) POC ABG pH ABG pH POC ABG pCO2 POC ABG pO2 ABG pO2 ABG HCO3 ABG Base Excess ABG Hemoglobin Oxyhemoglobin Sodium Potassium Chloride Carbon Dioxide BUN Creatinine Glucose POC Glucose 123 H 134 H 130 H Lactic Acid Calcium TIBC Ferritin AST ALT Alkaline Phosphatase Total Creatine Kinase CK-MB (CK-2) CK-MB (CK-2) Rel Index Troponin T Total Protein Albumin Urine WBC (Auto) Vancomycin Trough 03/17/19 03/17/19 03/17/19 00:46 04:45 04:45 WBC RBC 2.42 L Hgb 7.5 L Hct 23.4 L MCV RDW 22.2 H Plt Count 37 L Lymph % (Auto) 6.2 L Lymph # 0.5 L Seg Neutrophils % 84.0 H Seg Neuts % (Manual) Lymphocytes % (Manual) Monocytes % (Manual) Eosinophils % (Manual) Nucleated RBC % Seg Neutrophils # Man Lymphocytes # (Manual) POC ABG pH ABG pH POC ABG pCO2 POC ABG pO2 ABG pO2 ABG HCO3 ABG Base Excess ABG Hemoglobin Oxyhemoglobin Sodium Potassium Chloride 115.4 H Carbon Dioxide 16 L BUN 27 H Creatinine 1.8 H Glucose 109 H POC Glucose 115 H Lactic Acid Calcium 7.9 L TIBC Ferritin AST ALT Alkaline Phosphatase Total Creatine Kinase CK-MB (CK-2) CK-MB (CK-2) Rel Index Troponin T Total Protein Albumin Urine WBC (Auto) Vancomycin Trough 03/17/19 03/17/19 03/17/19 05:00 06:05 11:15 WBC RBC Hgb Hct MCV RDW Plt Count Lymph % (Auto) Lymph # Seg Neutrophils % Seg Neuts % (Manual) Lymphocytes % (Manual) Monocytes % (Manual) Eosinophils % (Manual) Nucleated RBC % Seg Neutrophils # Man Lymphocytes # (Manual) POC ABG pH ABG pH 7.238 L POC ABG pCO2 POC ABG pO2 ABG pO2 114.7 H ABG HCO3 17.9 L ABG Base Excess -8.8 L ABG Hemoglobin 7.3 L Oxyhemoglobin Sodium Potassium Chloride Carbon Dioxide BUN Creatinine Glucose POC Glucose 124 H Lactic Acid Calcium TIBC 127 L Ferritin AST ALT Alkaline Phosphatase Total Creatine Kinase CK-MB (CK-2) CK-MB (CK-2) Rel Index Troponin T Total Protein Albumin Urine WBC (Auto) Vancomycin Trough 03/17/19 03/17/19 03/17/19 11:15 12:06 18:27 WBC RBC Hgb Hct MCV RDW Plt Count Lymph % (Auto) Lymph # Seg Neutrophils % Seg Neuts % (Manual) Lymphocytes % (Manual) Monocytes % (Manual) Eosinophils % (Manual) Nucleated RBC % Seg Neutrophils # Man Lymphocytes # (Manual) POC ABG pH ABG pH POC ABG pCO2 POC ABG pO2 ABG pO2 ABG HCO3 ABG Base Excess ABG Hemoglobin Oxyhemoglobin Sodium Potassium Chloride Carbon Dioxide BUN Creatinine Glucose POC Glucose 133 H 158 H Lactic Acid Calcium TIBC Ferritin 512.4 H AST ALT Alkaline Phosphatase Total Creatine Kinase CK-MB (CK-2) CK-MB (CK-2) Rel Index Troponin T Total Protein Albumin Urine WBC (Auto) Vancomycin Trough 03/17/19 03/18/19 03/18/19 23:30 04:00 05:45 WBC RBC 2.31 L Hgb 7.0 L Hct 22.0 L MCV RDW 22.2 H Plt Count 45 L Lymph % (Auto) Lymph # Seg Neutrophils % Seg Neuts % (Manual) 82.0 H Lymphocytes % (Manual) 12.0 L Monocytes % (Manual) Eosinophils % (Manual) 5.0 H Nucleated RBC % 1.0 H Seg Neutrophils # Man Lymphocytes # (Manual) 0.8 L POC ABG pH ABG pH POC ABG pCO2 POC ABG pO2 ABG pO2 113.7 H ABG HCO3 ABG Base Excess -3.0 L ABG Hemoglobin 7.0 L Oxyhemoglobin Sodium Potassium Chloride Carbon Dioxide BUN Creatinine Glucose POC Glucose 143 H Lactic Acid Calcium TIBC Ferritin AST ALT Alkaline Phosphatase Total Creatine Kinase CK-MB (CK-2) CK-MB (CK-2) Rel Index Troponin T Total Protein Albumin Urine WBC (Auto) Vancomycin Trough 03/18/19 03/18/19 03/18/19 05:48 05:50 14:01 WBC RBC Hgb Hct MCV RDW Plt Count Lymph % (Auto) Lymph # Seg Neutrophils % Seg Neuts % (Manual) Lymphocytes % (Manual) Monocytes % (Manual) Eosinophils % (Manual) Nucleated RBC % Seg Neutrophils # Man Lymphocytes # (Manual) POC ABG pH 7.299 L ABG pH POC ABG pCO2 48.7 H POC ABG pO2 ABG pO2 ABG HCO3 ABG Base Excess ABG Hemoglobin Oxyhemoglobin Sodium Potassium Chloride 109.9 H Carbon Dioxide BUN 28 H Creatinine 1.5 H Glucose 128 H POC Glucose 118 H Lactic Acid Calcium 7.6 L TIBC Ferritin AST ALT Alkaline Phosphatase Total Creatine Kinase CK-MB (CK-2) CK-MB (CK-2) Rel Index Troponin T Total Protein Albumin Urine WBC (Auto) Vancomycin Trough 03/18/19 03/19/19 03/19/19 23:53 04:43 06:02 WBC RBC Hgb Hct MCV RDW Plt Count Lymph % (Auto) Lymph # Seg Neutrophils % Seg Neuts % (Manual) Lymphocytes % (Manual) Monocytes % (Manual) Eosinophils % (Manual) Nucleated RBC % Seg Neutrophils # Man Lymphocytes # (Manual) POC ABG pH ABG pH 7.332 L POC ABG pCO2 POC ABG pO2 ABG pO2 116.2 H ABG HCO3 ABG Base Excess -3.3 L ABG Hemoglobin 7.3 L Oxyhemoglobin 94.9 L Sodium Potassium Chloride Carbon Dioxide BUN Creatinine Glucose POC Glucose 130 H 122 H Lactic Acid Calcium TIBC Ferritin AST ALT Alkaline Phosphatase Total Creatine Kinase CK-MB (CK-2) CK-MB (CK-2) Rel Index Troponin T Total Protein Albumin Urine WBC (Auto) Vancomycin Trough 03/19/19 03/19/19 03/19/19 12:16 15:33 23:44 WBC RBC Hgb Hct MCV RDW Plt Count Lymph % (Auto) Lymph # Seg Neutrophils % Seg Neuts % (Manual) Lymphocytes % (Manual) Monocytes % (Manual) Eosinophils % (Manual) Nucleated RBC % Seg Neutrophils # Man Lymphocytes # (Manual) POC ABG pH 7.316 L ABG pH POC ABG pCO2 45.7 H POC ABG pO2 ABG pO2 ABG HCO3 ABG Base Excess ABG Hemoglobin Oxyhemoglobin Sodium Potassium Chloride Carbon Dioxide BUN Creatinine Glucose POC Glucose 132 H 106 H Lactic Acid Calcium TIBC Ferritin AST ALT Alkaline Phosphatase Total Creatine Kinase CK-MB (CK-2) CK-MB (CK-2) Rel Index Troponin T Total Protein Albumin Urine WBC (Auto) Vancomycin Trough 03/20/19 03/20/19 03/20/19 01:00 EST 04:27 12:06 WBC RBC Hgb Hct MCV RDW Plt Count Lymph % (Auto) Lymph # Seg Neutrophils % Seg Neuts % (Manual) Lymphocytes % (Manual) Monocytes % (Manual) Eosinophils % (Manual) Nucleated RBC % Seg Neutrophils # Man Lymphocytes # (Manual) POC ABG pH ABG pH POC ABG pCO2 POC ABG pO2 ABG pO2 121.6 H ABG HCO3 ABG Base Excess ABG Hemoglobin 7.1 L Oxyhemoglobin Sodium Potassium 3.4 L Chloride 111.7 H Carbon Dioxide BUN 29 H Creatinine Glucose POC Glucose 134 H Lactic Acid Calcium 8.0 L TIBC Ferritin AST ALT Alkaline Phosphatase Total Creatine Kinase CK-MB (CK-2) CK-MB (CK-2) Rel Index Troponin T Total Protein Albumin Urine WBC (Auto) Vancomycin Trough 03/20/19 03/20/19 03/21/19 18:09 23:36 05:42 WBC RBC Hgb Hct MCV RDW Plt Count Lymph % (Auto) Lymph # Seg Neutrophils % Seg Neuts % (Manual) Lymphocytes % (Manual) Monocytes % (Manual) Eosinophils % (Manual) Nucleated RBC % Seg Neutrophils # Man Lymphocytes # (Manual) POC ABG pH ABG pH POC ABG pCO2 POC ABG pO2 ABG pO2 ABG HCO3 ABG Base Excess ABG Hemoglobin Oxyhemoglobin Sodium Potassium Chloride Carbon Dioxide BUN Creatinine Glucose POC Glucose 133 H 114 H 116 H Lactic Acid Calcium TIBC Ferritin AST ALT Alkaline Phosphatase Total Creatine Kinase CK-MB (CK-2) CK-MB (CK-2) Rel Index Troponin T Total Protein Albumin Urine WBC (Auto) Vancomycin Trough 03/21/19 03/21/19 03/21/19 08:12 14:09 17:51 WBC 3.9 L RBC 2.25 L Hgb 7.1 L Hct 21.6 L MCV RDW 21.6 H Plt Count 105 L Lymph % (Auto) Lymph # Seg Neutrophils % Seg Neuts % (Manual) Lymphocytes % (Manual) 13.0 L Monocytes % (Manual) 13.0 H Eosinophils % (Manual) Nucleated RBC % Seg Neutrophils # Man Lymphocytes # (Manual) 0.5 L POC ABG pH ABG pH POC ABG pCO2 POC ABG pO2 120 H ABG pO2 ABG HCO3 ABG Base Excess ABG Hemoglobin Oxyhemoglobin Sodium Potassium Chloride Carbon Dioxide BUN Creatinine Glucose POC Glucose 145 H Lactic Acid Calcium TIBC Ferritin AST ALT Alkaline Phosphatase Total Creatine Kinase CK-MB (CK-2) CK-MB (CK-2) Rel Index Troponin T Total Protein Albumin Urine WBC (Auto) Vancomycin Trough 03/22/19 03/22/19 03/22/19 05:36 11:10 11:39 WBC RBC Hgb Hct MCV RDW Plt Count Lymph % (Auto) Lymph # Seg Neutrophils % Seg Neuts % (Manual) Lymphocytes % (Manual) Monocytes % (Manual) Eosinophils % (Manual) Nucleated RBC % Seg Neutrophils # Man Lymphocytes # (Manual) POC ABG pH ABG pH POC ABG pCO2 POC ABG pO2 ABG pO2 ABG HCO3 ABG Base Excess ABG Hemoglobin Oxyhemoglobin Sodium 149 H Potassium Chloride 115.6 H Carbon Dioxide BUN 20 H Creatinine Glucose 109 H POC Glucose 106 H 124 H Lactic Acid Calcium TIBC Ferritin AST ALT Alkaline Phosphatase Total Creatine Kinase CK-MB (CK-2) CK-MB (CK-2) Rel Index Troponin T Total Protein Albumin Urine WBC (Auto) Vancomycin Trough 03/22/19 03/22/19 03/22/19 12:04 18:36 Unknown WBC 4.2 L RBC 2.45 L Hgb 7.6 L Hct 23.9 L MCV 98 H RDW 22.2 H Plt Count Lymph % (Auto) Lymph # Seg Neutrophils % Seg Neuts % (Manual) Lymphocytes % (Manual) Monocytes % (Manual) Eosinophils % (Manual) Nucleated RBC % Seg Neutrophils # Man Lymphocytes # (Manual) POC ABG pH 7.285 L ABG pH POC ABG pCO2 55.4 H POC ABG pO2 ABG pO2 ABG HCO3 ABG Base Excess ABG Hemoglobin Oxyhemoglobin Sodium Potassium Chloride Carbon Dioxide BUN Creatinine Glucose POC Glucose 120 H Lactic Acid Calcium TIBC Ferritin AST ALT Alkaline Phosphatase Total Creatine Kinase CK-MB (CK-2) CK-MB (CK-2) Rel Index Troponin T Total Protein Albumin Urine WBC (Auto) Vancomycin Trough 03/23/19 03/23/19 03/23/19 04:37 05:12 05:30 WBC 4.2 L RBC 2.22 L Hgb 7.0 L Hct 21.4 L MCV RDW 21.5 H Plt Count Lymph % (Auto) Lymph # Seg Neutrophils % Seg Neuts % (Manual) Lymphocytes % (Manual) Monocytes % (Manual) Eosinophils % (Manual) Nucleated RBC % Seg Neutrophils # Man Lymphocytes # (Manual) POC ABG pH 7.500 H ABG pH POC ABG pCO2 POC ABG pO2 60 L ABG pO2 ABG HCO3 ABG Base Excess ABG Hemoglobin Oxyhemoglobin Sodium Potassium Chloride Carbon Dioxide BUN Creatinine Glucose POC Glucose 106 H Lactic Acid Calcium TIBC Ferritin AST ALT Alkaline Phosphatase Total Creatine Kinase CK-MB (CK-2) CK-MB (CK-2) Rel Index Troponin T Total Protein Albumin Urine WBC (Auto) Vancomycin Trough 03/23/19 03/23/19 03/23/19 05:30 11:50 18:11 WBC RBC Hgb Hct MCV RDW Plt Count Lymph % (Auto) Lymph # Seg Neutrophils % Seg Neuts % (Manual) Lymphocytes % (Manual) Monocytes % (Manual) Eosinophils % (Manual) Nucleated RBC % Seg Neutrophils # Man Lymphocytes # (Manual) POC ABG pH ABG pH POC ABG pCO2 POC ABG pO2 ABG pO2 ABG HCO3 ABG Base Excess ABG Hemoglobin Oxyhemoglobin Sodium 149 H Potassium Chloride 114.7 H Carbon Dioxide BUN 19 H Creatinine Glucose POC Glucose 118 H 107 H Lactic Acid Calcium 8.3 L TIBC Ferritin AST ALT Alkaline Phosphatase Total Creatine Kinase CK-MB (CK-2) CK-MB (CK-2) Rel Index Troponin T Total Protein Albumin Urine WBC (Auto) Vancomycin Trough 03/23/19 03/24/19 03/24/19 23:23 04:36 04:42 WBC 4.0 L RBC 2.46 L Hgb 7.9 L Hct 24.4 L MCV 99 H RDW 23.5 H Plt Count Lymph % (Auto) Lymph # Seg Neutrophils % Seg Neuts % (Manual) Lymphocytes % (Manual) Monocytes % (Manual) Eosinophils % (Manual) Nucleated RBC % Seg Neutrophils # Man Lymphocytes # (Manual) POC ABG pH ABG pH POC ABG pCO2 POC ABG pO2 ABG pO2 104.6 H ABG HCO3 ABG Base Excess ABG Hemoglobin 7.1 L Oxyhemoglobin Sodium Potassium Chloride Carbon Dioxide BUN Creatinine Glucose POC Glucose 112 H Lactic Acid Calcium TIBC Ferritin AST ALT Alkaline Phosphatase Total Creatine Kinase CK-MB (CK-2) CK-MB (CK-2) Rel Index Troponin T Total Protein Albumin Urine WBC (Auto) Vancomycin Trough 03/24/19 03/24/19 03/24/19 04:42 06:03 12:24 WBC RBC Hgb Hct MCV RDW Plt Count Lymph % (Auto) Lymph # Seg Neutrophils % Seg Neuts % (Manual) Lymphocytes % (Manual) Monocytes % (Manual) Eosinophils % (Manual) Nucleated RBC % Seg Neutrophils # Man Lymphocytes # (Manual) POC ABG pH ABG pH POC ABG pCO2 POC ABG pO2 ABG pO2 ABG HCO3 ABG Base Excess ABG Hemoglobin Oxyhemoglobin Sodium 149 H Potassium Chloride 115.7 H Carbon Dioxide BUN 18 H Creatinine Glucose 128 H POC Glucose 136 H 137 H Lactic Acid Calcium 8.3 L TIBC Ferritin AST ALT Alkaline Phosphatase Total Creatine Kinase CK-MB (CK-2) CK-MB (CK-2) Rel Index Troponin T Total Protein Albumin Urine WBC (Auto) Vancomycin Trough 03/24/19 03/24/19 03/25/19 17:48 23:51 04:45 WBC RBC 2.35 L Hgb 7.5 L Hct 23.4 L MCV 100 H RDW 24.7 H Plt Count Lymph % (Auto) Lymph # Seg Neutrophils % Seg Neuts % (Manual) Lymphocytes % (Manual) Monocytes % (Manual) Eosinophils % (Manual) Nucleated RBC % Seg Neutrophils # Man Lymphocytes # (Manual) POC ABG pH ABG pH POC ABG pCO2 POC ABG pO2 ABG pO2 ABG HCO3 ABG Base Excess ABG Hemoglobin Oxyhemoglobin Sodium Potassium Chloride Carbon Dioxide BUN Creatinine Glucose POC Glucose 139 H 131 H Lactic Acid Calcium TIBC Ferritin AST ALT Alkaline Phosphatase Total Creatine Kinase CK-MB (CK-2) CK-MB (CK-2) Rel Index Troponin T Total Protein Albumin Urine WBC (Auto) Vancomycin Trough 03/25/19 03/25/19 03/25/19 04:45 05:33 18:21 WBC RBC Hgb Hct MCV RDW Plt Count Lymph % (Auto) Lymph # Seg Neutrophils % Seg Neuts % (Manual) Lymphocytes % (Manual) Monocytes % (Manual) Eosinophils % (Manual) Nucleated RBC % Seg Neutrophils # Man Lymphocytes # (Manual) POC ABG pH ABG pH POC ABG pCO2 POC ABG pO2 ABG pO2 ABG HCO3 ABG Base Excess ABG Hemoglobin Oxyhemoglobin Sodium 146 H Potassium Chloride 114.1 H Carbon Dioxide BUN Creatinine Glucose 117 H POC Glucose 129 H 120 H Lactic Acid Calcium TIBC Ferritin AST ALT Alkaline Phosphatase Total Creatine Kinase CK-MB (CK-2) CK-MB (CK-2) Rel Index Troponin T Total Protein Albumin Urine WBC (Auto) Vancomycin Trough 03/26/19 03/26/19 03/26/19 04:40 06:50 16:18 WBC 4.1 L RBC 2.35 L Hgb 7.5 L Hct 23.4 L MCV 100 H RDW 25.1 H Plt Count Lymph % (Auto) Lymph # Seg Neutrophils % Seg Neuts % (Manual) Lymphocytes % (Manual) Monocytes % (Manual) Eosinophils % (Manual) Nucleated RBC % Seg Neutrophils # Man Lymphocytes # (Manual) POC ABG pH ABG pH POC ABG pCO2 POC ABG pO2 ABG pO2 ABG HCO3 ABG Base Excess ABG Hemoglobin Oxyhemoglobin Sodium Potassium Chloride 113.9 H Carbon Dioxide BUN Creatinine Glucose POC Glucose 115 H Lactic Acid Calcium TIBC Ferritin AST ALT Alkaline Phosphatase Total Creatine Kinase CK-MB (CK-2) CK-MB (CK-2) Rel Index Troponin T Total Protein Albumin Urine WBC (Auto) Vancomycin Trough 03/26/19 03/27/19 03/27/19 18:06 01:57 05:27 WBC 2.9 L RBC 2.52 L Hgb 8.1 L Hct 25.1 L MCV 100 H RDW 24.7 H Plt Count Lymph % (Auto) Lymph # Seg Neutrophils % Seg Neuts % (Manual) Lymphocytes % (Manual) Monocytes % (Manual) Eosinophils % (Manual) Nucleated RBC % Seg Neutrophils # Man Lymphocytes # (Manual) POC ABG pH ABG pH POC ABG pCO2 POC ABG pO2 ABG pO2 ABG HCO3 ABG Base Excess ABG Hemoglobin Oxyhemoglobin Sodium Potassium Chloride Carbon Dioxide BUN Creatinine Glucose POC Glucose 121 H 130 H Lactic Acid Calcium TIBC Ferritin AST ALT Alkaline Phosphatase Total Creatine Kinase CK-MB (CK-2) CK-MB (CK-2) Rel Index Troponin T Total Protein Albumin Urine WBC (Auto) Vancomycin Trough 03/27/19 05:27 WBC RBC Hgb Hct MCV RDW Plt Count Lymph % (Auto) Lymph # Seg Neutrophils % Seg Neuts % (Manual) Lymphocytes % (Manual) Monocytes % (Manual) Eosinophils % (Manual) Nucleated RBC % Seg Neutrophils # Man Lymphocytes # (Manual) POC ABG pH ABG pH POC ABG pCO2 POC ABG pO2 ABG pO2 ABG HCO3 ABG Base Excess ABG Hemoglobin Oxyhemoglobin Sodium 148 H Potassium Chloride 114.5 H Carbon Dioxide BUN Creatinine 0.6 L Glucose 109 H POC Glucose Lactic Acid Calcium TIBC Ferritin AST ALT Alkaline Phosphatase Total Creatine Kinase CK-MB (CK-2) CK-MB (CK-2) Rel Index Troponin T Total Protein Albumin Urine WBC (Auto) Vancomycin Trough Chest x-ray: other (none for my review today) Allied health notes reviewed: nursing
[2019-03-28] MEDS: IPRATROPIUM/ALBUTEROL SULFATE 3 ML AMPUL.NEB IH SCH ×4 (02:03→20:55)
[2019-03-28] MEDS: MORPHINE 2 MG/1 ML INJ IV PRN (03:41)
[2019-03-28 05:11] LABS: Hematocrit 24.3 % (30.3-42.9); Hemoglobin 7.7 gm/dl (10.1-14.3); Mean Corpuscular HGB Conc 32 % (30-34); Mean Corpuscular Volume 101 fl (79-97); Platelet Count 192 K/mm3 (140-440); Red Blood Count 2.41 M/mm3 (3.65-5.03); Red Cell Distribution Width 25.4 % (13.2-15.2)
[2019-03-28 05:40] LABS: BUN/Creatinine Ratio 34; Blood Urea Nitrogen 17 mg/dL (7-17); Calcium 8.6 mg/dL (8.4-10.2); Hemolysis Index 5
[2019-03-28] MEDS: INSULIN LISPRO 100 UNIT/ML SUB-Q SCH ×4 (06:14→18:00)
--- NOTE | 2019-03-28 07:48 | Hem/Onc Progress Note ---
Assessment and Plan 1. h/o Leukopenia and the patient has a history of liver disease and alcohol usage. These may have a role. Thrombocytopenia may have a similar reason. Deficiency investigations. In January, B12 was 1400, folate 13. 2. Encephalopathy, being treated for sepsis. 3. History of electrolyte imbalance. 4. History of hypertension. 5. History of chronic obstructive pulmonary disease. 6. AST, ALT abnormality. 7. The patient was placed on reverse isolation. I will follow the patient during inpatient stay. ANEMIA - FOLLOW b12 - folate normal - will follow h/o plt low - may be sec to infection/meds/antibiotics - pt was on vanco - zosyn - daptomycin ID following pt b12- folate - iron ferritin WNL platelets better lovenox for DVT prevention WBC fluctuating - will follow there was a question if trach - PEG is needed - Patient Problems (1) Leukopenia Current Visit: Yes Status: Acute Qualifiers: Leukopenia type: unspecified Qualified Code(s): D72.819 - Decreased white blood cell count, unspecified Subjective Date of service: 03/28/19 Principal diagnosis: Anemia - Low WBC Interval history: still intubated Objective - Exam Narrative Exam: Pain - on vent General appearance - intubated Performance status - complete dependence Eyes - no icterus, ENT - no bleeding LNs cervical not palpable Neck - no LN Respiratory Normal Breath sounds - CTA anteriorly CVS S1 S2 + Extremities edema+ General GI Soft Rectal deferred female - deferred Skin warm Musculoskeletal on vent Neurologically intubated - Constitutional Vitals: Last Vital Signs Temp 97.5 F L 03/28/19 04:00 Pulse 79 03/28/19 07:00 Resp 12 03/28/19 07:00 BP 96/55 03/28/19 07:00 Pulse Ox 97 03/28/19 07:00 - Labs Lab Results: Laboratory Results - last 24 hr 03/27/19 03/27/19 03/27/19 13:39 18:49 23:53 WBC RBC Hgb Hct MCV MCH MCHC RDW Plt Count Sodium Potassium Chloride Carbon Dioxide Anion Gap BUN Creatinine Estimated GFR BUN/Creatinine Ratio Glucose POC Glucose 99 131 H 115 H Calcium 03/28/19 03/28/19 03/28/19 04:53 04:53 05:33 WBC 3.2 L RBC 2.41 L Hgb 7.7 L Hct 24.3 L MCV 101 H MCH 32 MCHC 32 RDW 25.4 H Plt Count 192 Sodium 149 H Potassium 4.3 Chloride 114.6 H Carbon Dioxide 25 Anion Gap 14 BUN 17 Creatinine 0.5 L Estimated GFR > 60 BUN/Creatinine Ratio 34 Glucose 86 POC Glucose 87 Calcium 8.6 Medications & Allergies - Medications Allergies/Adverse Reactions: Allergies No Known Allergies Allergy (Verified 01/06/17 23:38) Per son Home Medications: Home Medications Medication Instructions Recorded Confirmed Last Taken Type Folic Acid [Folvite] 1 mg PO QDAY #30 tablet 08/12/18 03/10/19 03/09/19 Rx Haloperidol [Haldol] 0.5 mg PO Q6H PRN #30 tablet 08/12/18 03/10/19 03/10/19 Rx Lactulose [Cephulac] 20 gm PO Q12H #1 bottle 08/12/18 03/10/19 03/09/19 Rx Rifaximin [Xifaxan] 550 mg PO BID #60 tablet 08/12/18 03/10/19 03/09/19 Rx Thiamine [Vitamin B-1] 100 mg PO QDAY #30 tablet 08/12/18 03/10/19 03/09/19 Rx amLODIPine 5 mg PO QDAY #30 tablet 08/12/18 03/10/19 03/09/19 Rx chlordiazePOXIDE [Librium] 25 mg PO DAILY #3 capsule 08/12/18 03/10/19 03/09/19 Rx ALBUTEROL NEB's [Proventil] 2.5 mg IH TID PRN 02/06/19 03/10/19 03/09/19 History Acetaminophen [Tylenol] 650 mg PO Q6HR PRN 02/06/19 03/10/19 03/09/19 History Fluticasone [Flonase] 1 spray NS QDAY 02/06/19 03/10/19 03/09/19 History Ipratropium/Albuterol Sulfate 1 spray IH QID 02/06/19 03/10/19 03/09/19 History [Combivent Respimat] Melatonin [Melatonin 10MG CAP] 10 mg PO QHS 02/06/19 03/10/19 03/09/19 History Active Medications: Generic Name Dose Route Start Last Admin Trade Name Freq PRN Reason Stop Dose Admin Acetaminophen 650 mg 03/10/19 17:46 Tylenol PO Q4H PRN Pain MILD(1-3)/Fever >100.5/GUERRERO Albuterol 2.5 mg 03/11/19 03:52 Proventil IH TID PRN Wheezing Albuterol/Ipratropium 1 ampul 03/11/19 08:00 03/28/19 07:38 Duoneb *Not For Prn Use* IH 1 ampul Q6HRT CONNIE Administration Lipase/Protease/Amylase 1 each 03/14/19 13:25 Pancreazmarti Sahni 10,500 Unit FEEDTUBE PRN PRN For Clogged Feeding Tube Dextrose 50 ml 03/10/19 22:27 03/14/19 17:55 D50w (25gm) Syringe IV 50 ml Q30MIN PRN Administration Hypoglycemia Enoxaparin Sodium 40 mg 03/25/19 10:00 03/27/19 10:00 Enoxaparin SUB-Q 40 mg QDAY@1000 CONNIE Administration Famotidine 20 mg 03/22/19 10:00 03/27/19 21:50 Pepcid PO 20 mg BID CONNIE Administration Fluticasone Propionate 50 mcg 03/11/19 10:00 03/27/19 10:00 Flonase NS 50 mcg QDAY CONNIE Administration Folic Acid 1 mg 03/11/19 10:00 03/27/19 10:00 Folvite PO 1 mg QDAY CONNIE Administration Haloperidol 0.5 mg 03/11/19 03:52 03/12/19 09:32 Haldol PO 0.5 mg Q6H PRN Administration Agitation Hydrophilic Ointment 1 applic 03/14/19 06:51 Vaseline Lip Therapy TP Q2HR PRN Dry Lips Sodium Chloride 500 mls @ 15 mls/hr 03/17/19 20:00 Nacl 0.9% 500 Ml IV PRN CONNIE Insulin Human Lispro 0 unit 03/11/19 00:00 03/28/19 06:14 Humalog SUB-Q Not Given Q6HR [facility] Protocol Morphine Sulfate 2 mg 03/10/19 17:56 03/28/19 03:41 Morphine IV 2 mg Q4H PRN Administration Pain, Moderate (4-6) Multi-Ingred Cream/Lotion/Oil/Oint 1 applic 03/14/19 06:51 03/20/19 10:22 Artificial Tears Ophth Oint OU 0.35 applic Q4HR PRN Administration Dry Eye(s) Ondansetron HCl 4 mg 03/10/19 17:46 03/11/19 05:04 Zofran IV 4 mg Q8H PRN Administration Nausea And Vomiting Rifaximin 550 mg 03/11/19 10:00 03/27/19 21:50 Xifaxan PO 550 mg BID CONNIE Administration Scopolamine 1 each 03/20/19 15:00 03/26/19 17:25 Transderm-Scop TD 1 each Q3D CONNIE Administration Simple Syrup 15 ml 03/14/19 13:25 Simple Syrup FEEDTUBE PRN PRN Hypoglycemia Simple Syrup 30 ml 03/14/19 13:25 Simple Syrup FEEDTUBE PRN PRN Hypoglycemia Sodium Bicarbonate 325 mg 03/14/19 13:25 Sodium Bicarbonate FEEDTUBE PRN PRN For Clogged Feeding Tube Sodium Chloride 10 ml 03/10/19 22:00 03/27/19 21:50 Sodium Chloride Flush Syringe 10 Ml IV 10 ml BID CONNIE Administration Sodium Chloride 10 ml 03/10/19 17:46 03/13/19 22:50 Sodium Chloride Flush Syringe 10 Ml IV 10 ml PRN PRN Administration LINE FLUSH Thiamine HCl 100 mg 03/11/19 10:00 03/27/19 10:00 Vitamin B-1 PO 100 mg QDAY CONNIE Administration
--- NOTE | 2019-03-28 08:04 | Progress Note ---
Assessment and Plan Assessment and plan: Patient is a 68-year-old woman from [facility] with a history of hypertension, diabetes mellitus type 2, hep C, liver disease secondary to alcoholism and chronic renal disease who presented to [facility] ED with altered mental status, she is only minimally responsive at baseline Acute resp failure with hypoxia on mechanical ventilator> 96 hours: trach and PEG consideration at 7 days, Management per communications tower climber, daily weaning trials Septic shock/pneumonia: treated with antibiotics, ID consult appreciated KERRI/CKD 3 is due to ATN and vasomotor nephropathy: -monitor cr level, stable and improved VRE UTI, septic shock, sepsis POA: resolved abx per ID, off vasopressors since 03/17/19, still in contact isolation for VRE Thrombocytopenia: likely 2/2 sepsis, stable Acute Metabolic encephalopathy with agitation: Probably due to the acute infection Acute on chronic Pancytopenia: continue to monitor levels, Oncology consulted Hypernatremia: probably 2/2 dehydration- improved on IV D5W- monitor BMP closely Hyperkalemia: s/p kayexalate, resolved Hypoglycemia: On hypoglycemic protocol H/o Chronic liver disease: treated with lactulose and rifaximin Nutrition: Continue tube feeding DVT prophylaxis: On sq lovenox Disposition: continue inpatient care, Prognosis is guarded/poor Tracheostomy/PEG tube placement anticipated. History Interval history: Patient was seen and examined. Follow-up on current diagnosis of AMS, respiratory failure, Not on Vasopressin or Dopamine IV drip at bedside. Patient eyes are open. No overnight events reported to me. Imaging, nursing note, chart, labs and old chart reviewed. Hospitalist Physical - Physical exam Narrative exam: Gen: critically ill, awake, eyes open, intubated not sedated on PS HEENT: NCAT, EOMI, PERRL, OP with ETT and NGT Neck: supple, no adenopathy, no thyromegaly, no JVD CVS/Heart: RRR, normal S1S2, pulses present bilaterally Chest/Lungs: Symmetrical chest expansion, good air entry bilaterally GI/Abdomen: soft, NTND, good bowel sounds, no guarding or rebound /Bladder: no suprapubic tenderness, no CVA or paraspinal tenderness Extermity/Skin: right neck IJ TLC MSK: sFROM x 4 Neuro: CN 2-12 grossly intact, doesn't follow commands Psych: calm - Constitutional Vitals: Temp Pulse Resp BP Pulse Ox 97.5 F L 79 12 96/55 97 03/28/19 04:00 03/28/19 07:00 03/28/19 07:00 03/28/19 07:00 03/28/19 07:00 General appearance: Present: no acute distress, other (mildly agitated) Results - Labs CBC & Chem 7: 03/28/19 04:53 03/28/19 04:53 Labs: Laboratory Last Values WBC 3.2 K/mm3 (4.5-11.0) L 03/28/19 04:53 RBC 2.41 M/mm3 (3.65-5.03) L 03/28/19 04:53 Hgb 7.7 gm/dl (10.1-14.3) L 03/28/19 04:53 Hct 24.3 % (30.3-42.9) L 03/28/19 04:53 MCV 101 fl (79-97) H 03/28/19 04:53 MCH 32 pg (28-32) 03/28/19 04:53 MCHC 32 % (30-34) 03/28/19 04:53 RDW 25.4 % (13.2-15.2) H 03/28/19 04:53 Plt Count 192 K/mm3 (140-440) 03/28/19 04:53 Lymph % (Auto) 6.2 % (13.4-35.0) L 03/17/19 04:45 Lee % (Auto) Heel Builder Machine 03/21/19 08:12 Eos % (Auto) 3.2 % (0.0-4.3) 03/17/19 04:45 Baso % (Auto) 0.2 % (0.0-1.8) 03/17/19 04:45 Lymph # 0.5 K/mm3 (1.2-5.4) L 03/17/19 04:45 Lee # 0.6 K/mm3 (0.0-0.8) 03/17/19 04:45 Eos # 0.3 K/mm3 (0.0-0.4) 03/17/19 04:45 Baso # 0.0 K/mm3 (0.0-0.1) 03/17/19 04:45 Add Manual Diff Complete 03/21/19 08:12 Total Counted 100 03/21/19 08:12 Seg Neutrophils % 84.0 % (40.0-70.0) H 03/17/19 04:45 Seg Neuts % (Manual) 67.0 % (40.0-70.0) 03/21/19 08:12 Band Neutrophils % 2.0 % 03/21/19 08:12 Lymphocytes % (Manual) 13.0 % (13.4-35.0) L 03/21/19 08:12 Reactive Lymphs % (Man) 1.0 % 03/21/19 08:12 Monocytes % (Manual) 13.0 % (0.0-7.3) H 03/21/19 08:12 Eosinophils % (Manual) 3.0 % (0.0-4.3) 03/21/19 08:12 Basophils % (Manual) 0 % (0.0-1.8) 03/21/19 08:12 Metamyelocytes % 1.0 % 03/21/19 08:12 Myelocytes % 0 % 03/21/19 08:12 Promyelocytes % 0 % 03/21/19 08:12 Blast Cells % 0 % 03/21/19 08:12 Nucleated RBC % Not Reportable 03/21/19 08:12 Seg Neutrophils # 7.2 K/mm3 (1.8-7.7) 03/17/19 04:45 Seg Neutrophils # Man 2.6 K/mm3 (1.8-7.7) 03/21/19 08:12 Band Neutrophils # 0.1 K/mm3 03/21/19 08:12 Lymphocytes # (Manual) 0.5 K/mm3 (1.2-5.4) L 03/21/19 08:12 Abs React Lymphs (Man) 0.0 K/mm3 03/21/19 08:12 Monocytes # (Manual) 0.5 K/mm3 (0.0-0.8) 03/21/19 08:12 Eosinophils # (Manual) 0.1 K/mm3 (0.0-0.4) 03/21/19 08:12 Basophils # (Manual) 0.0 K/mm3 (0.0-0.1) 03/21/19 08:12 Metamyelocytes # 0.0 K/mm3 03/21/19 08:12 Myelocytes # 0.0 K/mm3 03/21/19 08:12 Promyelocytes # 0.0 K/mm3 03/21/19 08:12 Blast Cells # 0.0 K/mm3 03/21/19 08:12 Pathologist Review 03/18/19 05:45 WBC Morphology Not Reportable 03/21/19 08:12 Hypersegmented Neuts Not Reportable 03/21/19 08:12 Hyposegmented Neuts Not Reportable 03/21/19 08:12 Hypogranular Neuts Not Reportable 03/21/19 08:12 Smudge Cells Not Reportable 03/21/19 08:12 Toxic Granulation Not Reportable 03/21/19 08:12 Toxic Vacuolation Not Reportable 03/21/19 08:12 Dohle Bodies Not Reportable 03/21/19 08:12 Pelger-Huet Anomaly Not Reportable 03/21/19 08:12 Sheila Rods Not Reportable 03/21/19 08:12 Platelet Estimate Consistent w auto 03/21/19 08:12 Clumped Platelets Not Reportable 03/21/19 08:12 Plt Clumps, EDTA Not Reportable 03/21/19 08:12 Large Platelets Not Reportable 03/21/19 08:12 Giant Platelets Not Reportable 03/21/19 08:12 Platelet Satelliting Not Reportable 03/21/19 08:12 Plt Morphology Comment Not Reportable 03/21/19 08:12 RBC Morphology Not Reportable 03/21/19 08:12 Dimorphic RBCs Not Reportable 03/21/19 08:12 Polychromasia Not Reportable 03/21/19 08:12 Hypochromasia Not Reportable 03/21/19 08:12 Poikilocytosis Not Reportable 03/21/19 08:12 Anisocytosis 1+ 03/21/19 08:12 Microcytosis Not Reportable 03/21/19 08:12 Macrocytosis 1+ 03/21/19 08:12 Spherocytes Not Reportable 03/21/19 08:12 Pappenheimer Bodies Not Reportable 03/21/19 08:12 Sickle Cells Not Reportable 03/21/19 08:12 Target Cells Few 03/21/19 08:12 Tear Drop Cells Not Reportable 03/21/19 08:12 Ovalocytes Not Reportable 03/21/19 08:12 Helmet Cells Not Reportable 03/21/19 08:12 [place] Bodies Not Reportable 03/21/19 08:12 [place] Rings Not Reportable 03/21/19 08:12 [place] Cells Not Reportable 03/21/19 08:12 Bite Cells Not Reportable 03/21/19 08:12 Crenated Cell Not Reportable 03/21/19 08:12 Elliptocytes Not Reportable 03/21/19 08:12 Acanthocytes (Spur) Not Reportable 03/21/19 08:12 Rouleaux Not Reportable 03/21/19 08:12 Hemoglobin C Crystals Not Reportable 03/21/19 08:12 Schistocytes Not Reportable 03/21/19 08:12 Malaria parasites Not Reportable 03/21/19 08:12 [place] Bodies Not Reportable 03/21/19 08:12 Hem Pathologist Commnt No 03/21/19 08:12 POC ABG pH 7.500 (7.35-7.45) H 03/23/19 04:37 ABG pH 7.379 pH Units (7.350-7.450) 03/24/19 04:36 POC ABG pCO2 39.6 (35-45) 03/23/19 04:37 ABG pCO2 43.0 mm Hg 03/24/19 04:36 POC ABG pO2 60 (80-105) L 03/23/19 04:37 ABG pO2 104.6 mm Hg (80.0-90.0) H 03/24/19 04:36 POC ABG HCO3 30.8 (22-26 mml/L) 03/23/19 04:37 ABG HCO3 24.8 mmol/L (20.0-26.0) 03/24/19 04:36 POC ABG Total CO2 32 (23-27mmol/L) 03/23/19 04:37 POC ABG O2 Sat 93 03/23/19 04:37 ABG O2 Saturation 97.7 % (95.0-99.0) 03/24/19 04:36 ABG O2 Content 9.7 (0.0-44) 03/24/19 04:36 POC ABG Base Excess 8 ((-2) - (+3)mmol/L) 03/23/19 04:37 ABG Base Excess -0.3 mmol/L (-2.0-3.0) 03/24/19 04:36 ABG Hemoglobin 7.1 gm/dl (12.0-16.0) L 03/24/19 04:36 ABG Carboxyhemoglobin 2.4 % (0.0-5.0) 03/24/19 04:36 ABG Methemoglobin 0.4 % (0.0-1.5) 03/24/19 04:36 Oxyhemoglobin 95.0 % (95.0-99.0) 03/24/19 04:36 FiO2 25 % 03/24/19 04:36 Sodium 149 mmol/L (137-145) H 03/28/19 04:53 Potassium 4.3 mmol/L (3.6-5.0) 03/28/19 04:53 Chloride 114.6 mmol/L (98-107) H 03/28/19 04:53 Carbon Dioxide 25 mmol/L (22-30) 03/28/19 04:53 Anion Gap 14 mmol/L 03/28/19 04:53 BUN 17 mg/dL (7-17) 03/28/19 04:53 Creatinine 0.5 mg/dL (0.7-1.2) L 03/28/19 04:53 Estimated GFR > 60 ml/min 03/28/19 04:53 BUN/Creatinine Ratio 34 % 03/28/19 04:53 Glucose 86 mg/dL (65-100) 03/28/19 04:53 POC Glucose 87 (70-105) 03/28/19 05:33 Hemoglobin A1c 4.6 % (4-6) 03/10/19 13:16 Lactic Acid 0.80 mmol/L (0.7-2.0) 03/21/19 13:05 Calcium 8.6 mg/dL (8.4-10.2) 03/28/19 04:53 Iron 81 ug/dL (37-170) 03/17/19 11:15 TIBC 127 mcg/dL (250-450) L 03/17/19 11:15 Ferritin 512.4 ng/mL (13.0-400.0) H 03/17/19 11:15 Total Bilirubin 0.50 mg/dL (0.1-1.2) 03/14/19 06:44 AST 144 units/L (5-40) H 03/14/19 06:44 ALT 90 units/L (7-56) H 03/14/19 06:44 Alkaline Phosphatase 226 units/L (35-129) H 03/14/19 06:44 Ammonia 54.0 umol/L (25-60) 03/11/19 07:29 Total Creatine Kinase 194 units/L (30-135) H 03/16/19 05:19 CK-MB (CK-2) 8.6 ng/mL (0.0-4.0) H 03/14/19 06:44 CK-MB (CK-2) Rel Index 7.1 (0-4) H 03/14/19 06:44 Troponin T 0.056 ng/mL (0.00-0.029) H D 03/14/19 06:44 Total Protein 6.7 g/dL (6.3-8.2) 03/14/19 06:44 Albumin 2.2 g/dL (3.9-5) L 03/14/19 06:44 Albumin/Globulin Ratio 0.5 % 03/14/19 06:44 Triglycerides 62 mg/dL (2-149) 03/14/19 06:44 Cholesterol 133 mg/dL (50-199) 03/14/19 06:44 LDL Cholesterol Direct 89 mg/dL (50-130) 03/14/19 06:44 HDL Cholesterol 43 mg/dL (40-59) 03/14/19 06:44 Cholesterol/HDL Ratio 3.09 % 03/14/19 06:44 Procalcitonin 1.19 ng/mL (<0.15) 03/21/19 13:05 Urine Color Straw (Yellow) 03/10/19 14:38 Urine Turbidity Clear (Clear) 03/10/19 14:38 Urine pH 7.0 (5.0-7.0) 03/10/19 14:38 Ur Specific [place] 1.009 (1.003-1.030) 03/10/19 14:38 Urine Protein <15 mg/dl mg/dL (Negative) 03/10/19 14:38 Urine Glucose (UA) Neg mg/dL (Negative) 03/10/19 14:38 Urine Ketones Neg mg/dL (Negative) 03/10/19 14:38 Urine Blood Neg (Negative) 03/10/19 14:38 Urine Nitrite Neg (Negative) 03/10/19 14:38 Urine Bilirubin Neg (Negative) 03/10/19 14:38 Urine Urobilinogen < 2.0 mg/dL (<2.0) 03/10/19 14:38 Ur Leukocyte Esterase Sm (Negative) 03/10/19 14:38 Urine WBC (Auto) 9.0 /HPF (0.0-6.0) H 03/10/19 14:38 Urine RBC (Auto) 2.0 /HPF (0.0-6.0) 03/10/19 14:38 U Epithel Cells (Auto) 1.0 /HPF (0-13.0) 03/10/19 14:38 Urine Bacteria (Auto) 2+ /HPF (Negative) 03/10/19 14:38 Urine Mucus Few /HPF 03/10/19 14:38 Vancomycin Trough 39.7 ug/mL (5.0-20.0) H 03/13/19 05:58 Random Vancomycin 27.6 ug/mL (0-40.0) 03/14/19 05:44 Active Medications - Current Medications Current Medications: Generic Name Dose Route Start Last Admin Trade Name Freq PRN Reason Stop Dose Admin Acetaminophen 650 mg 03/10/19 17:46 Tylenol PO Q4H PRN Pain MILD(1-3)/Fever >100.5/GUERRERO Albuterol 2.5 mg 03/11/19 03:52 Proventil IH TID PRN Wheezing Albuterol/Ipratropium 1 ampul 03/11/19 08:00 03/28/19 07:38 Duoneb *Not For Prn Use* IH 1 ampul Q6HRT [facility] Administration Lipase/Protease/Amylase 1 each 03/14/19 13:25 Pancremartine Sahni 10,500 Unit FEEDTUBE PRN PRN For Clogged Feeding Tube Dextrose 50 ml 03/10/19 22:27 03/14/19 17:55 D50w (25gm) Syringe IV 50 ml Q30MIN PRN Administration Hypoglycemia Enoxaparin Sodium 40 mg 03/25/19 10:00 03/27/19 10:00 Enoxaparin SUB-Q 40 mg QDAY@1000 [facility] Administration Famotidine 20 mg 03/22/19 10:00 03/27/19 21:50 Pepcid PO 20 mg BID CONNIE Administration Fluticasone Propionate 50 mcg 03/11/19 10:00 03/27/19 10:00 Flonase NS 50 mcg QDAY CONNIE Administration Folic Acid 1 mg 03/11/19 10:00 03/27/19 10:00 Folvite PO 1 mg QDAY CONNIE Administration Haloperidol 0.5 mg 03/11/19 03:52 03/12/19 09:32 Haldol PO 0.5 mg Q6H PRN Administration Agitation Hydrophilic Ointment 1 applic 03/14/19 06:51 Vaseline Lip Therapy TP Q2HR PRN Dry Lips Sodium Chloride 500 mls @ 15 mls/hr 03/17/19 20:00 Nacl 0.9% 500 Ml IV PRN [facility] Insulin Human Lispro 0 unit 03/11/19 00:00 03/28/19 06:14 Humalog SUB-Q Not Given Q6HR [facility] Protocol Morphine Sulfate 2 mg 03/10/19 17:56 03/28/19 03:41 Morphine IV 2 mg Q4H PRN Administration Pain, Moderate (4-6) Multi-Ingred Cream/Lotion/Oil/Oint 1 applic 03/14/19 06:51 03/20/19 10:22 Artificial Tears Ophth Oint OU 0.35 applic Q4HR PRN Administration Dry Eye(s) Ondansetron HCl 4 mg 03/10/19 17:46 03/11/19 05:04 Zofran IV 4 mg Q8H PRN Administration Nausea And Vomiting Rifaximin 550 mg 03/11/19 10:00 03/27/19 21:50 Xifaxan PO 550 mg BID CONNIE Administration Scopolamine 1 each 03/20/19 15:00 03/26/19 17:25 Transderm-Scop TD 1 each Q3D CONNIE Administration Simple Syrup 15 ml 03/14/19 13:25 Simple Syrup FEEDTUBE PRN PRN Hypoglycemia Simple Syrup 30 ml 03/14/19 13:25 Simple Syrup FEEDTUBE PRN PRN Hypoglycemia Sodium Bicarbonate 325 mg 03/14/19 13:25 Sodium Bicarbonate FEEDTUBE PRN PRN For Clogged Feeding Tube Sodium Chloride 10 ml 03/10/19 22:00 03/27/19 21:50 Sodium Chloride Flush Syringe 10 Ml IV 10 ml BID CONNIE Administration Sodium Chloride 10 ml 03/10/19 17:46 03/13/19 22:50 Sodium Chloride Flush Syringe 10 Ml IV 10 ml PRN PRN Administration LINE FLUSH Thiamine HCl 100 mg 03/11/19 10:00 03/27/19 10:00 Vitamin B-1 PO 100 mg QDAY CONNIE Administration Nutrition/Malnutrition Assess - Dietary Evaluation Nutrition/Malnutrition Findings: Nutrition Notes Start: 03/11/19 10:01 Freq: Status: Active Protocol: Document 03/24/19 12:19 AP (Rec: 03/24/19 12:32 AP [id number]) Co-Sign 03/24/19 12:19 LM Nutrition Notes Need for Assessment generated from: MD Order Initial or Follow up Reassessment Current Diagnosis COPD,Decubitus(Pressure Ulcer) ,Hypertension Other Pertinent Diagnosis AMS/nonverbal, Hep C, Anemia, Renal stones Current Diet Vital AF 1.2 at 55ml/hr Labs/Tests Na 149 Pertinent Medications Reviewed Height 5 ft 3 in Weight 102.2 kg [place] Body Weight (kg) 52.27 BMI 39.9 Weight Status Obese Subjective/Other Information F/U for TF rate/tolerance. Vital AF 1.2 running at 55ml/ hr. Pt to receive trach/PEG next week per RN. Percent of energy/protein needs met: 93%/94% Minimum of two criteria No Reduced Personnel Generalist Manager Strength Measurably Reduced (severe) #1 Nutrition Diagnosis Inadequate oral intake Diagnosis Progress(for reassessment Continues documentation) Is patient on ventilator? Yes Is Patient Ambulatory and/or Out of Bed No REE-([place]-confined to bed) [phone] Nutrition Intervention Change Diet Order: TF Nutrition Support: Vital AF 1.2 at 55ml/hr. Increase flush to 200ml q4h for hypernatremia. Once resolved flush 100ml q4h. Kcal 1,584 Protein (gm) 99 Fluid (mL) 1,071 Goal #1 TF tolerance Goal #2 TF continue to meet at least 80% of estimated energy and protein needs. Anticipated Discharge Needs: unable to determine at this time Follow-Up By: 03/28/19 Additional Comments F/U for TF tolerance, Na labs.
--- NOTE | 2019-03-28 08:20 | Progress Note ---
Assessment and Plan Severe sepsis with septic shock - resolved Cardiac arrest-asystole with ROSC Acute hypoxic respiratory failure on MVS Lactic acidosis- multifactorial ( resolved) Acute toxic- metabolic encephalopathy( improving) Aspiration pneumonia VRE UTI Hypernatremia Thrombocytopenia h/o Cirrhosis h/o Alcohol abuse disorder KERRI Hyperkalemia Patient remains mechanical ventilator support via ETT. Not tolerating PSV trials and continues to fail. She appears to get hypothermic when ambient temperatures drop. Asked that she be warmed passively, and monitor closely for any signs of an infection. Continue to monitor off antibiotics Awaiting scheduling of trach and PEG by Surgical service Continue free water flushes for hypernatremia Oral secretions are improving, continue with secretion management Avoid delirium, maintenance of sleep-wake cycle Continue with mobility and off loading to avoid pressure ulcer Discussed with ICU team during IDT rounds - Continue daily PSV as tolerated -VAP bundle addressed -Aspiration precautions, HOB>40 degrees - Lung protective strategies -Wean FIO2 for O2 sats>90% -CXR, ABG prn -CBC, BMP in am -Avoid nephrotoxins and adjust all medications fro GFR and CrCL -Continue tube feedings -Agitation management, Pain management -Continue contact isolation - Continue VTE prophylaxis - Continue stress ulcer prophylaxis - Accuchecks with glycemic control for SSI (Target blood glucose of 140-180 mg/dL; avoid hypoglycemia) - Continue to monitor hemodynamics closely -Monitor electrolyte profile closely and replete as indicated CONDITION: CRITICAL PROGNOSIS: GUARDED CODE STATUS: FULL CODE The high probability of a clinically significant, sudden or life-threatening deterioration of the [respiratory, cardiovascular, hematology] system(s) required my full and direct attention, intervention and personal management. The aggregate critical care time was [30] minutes without overlap. Time includes spent on; [x] Data Review and interpretation [x] Patient assessment and monitoring of vital signs [x] Documentation [x] Medication orders and management Subjective Date of service: 03/28/19 Principal diagnosis: low wbc - anemia Interval history: Follow up for severe sepsis with septic shock; acute hypoxemic respiratory failure on MVS; s/p cardiac arrest with ROSC; VRE UTI; aspiration pneumonia; Patient seen and examined. Vitals, labs, medications, chart and imaging reviewed. No fevers, no vomiting; weaning supplemental oxygen, More awake, was hypothermic overnight. Remains critically ill on full ventilatory support, not tolerating weaning Objective Vital Signs - 12hr 03/27/19 03/27/19 03/27/19 20:45 21:00 21:06 Temperature Pulse Rate 58 L 54 L 57 L Pulse Rate [ Anterior Bilateral] Pulse Rate [ From Monitor] Respiratory 12 Rate Respiratory Rate [Anterior Bilateral] Blood Pressure 118/71 115/71 O2 Sat by Pulse 100 100 Oximetry 03/27/19 03/27/19 03/27/19 21:15 22:00 23:00 Temperature Pulse Rate 77 78 Pulse Rate [ 58 L Anterior Bilateral] Pulse Rate [ From Monitor] Respiratory 12 14 Rate Respiratory 14 Rate [Anterior Bilateral] Blood Pressure 118/71 127/76 O2 Sat by Pulse 99 100 Oximetry 03/27/19 03/28/19 03/28/19 23:10 00:00 00:55 Temperature 94.8 F L Pulse Rate 77 69 59 L Pulse Rate [ Anterior Bilateral] Pulse Rate [ 67 From Monitor] Respiratory 17 11 L Rate Respiratory Rate [Anterior Bilateral] Blood Pressure 124/80 124/85 124/59 O2 Sat by Pulse 99 99 100 Oximetry 03/28/19 03/28/19 03/28/19 01:00 02:00 02:13 Temperature Pulse Rate 63 72 Pulse Rate [ 73 Anterior Bilateral] Pulse Rate [ From Monitor] Respiratory 12 13 Rate Respiratory 12 Rate [Anterior Bilateral] Blood Pressure 114/68 134/71 O2 Sat by Pulse 100 100 Oximetry 03/28/19 03/28/19 03/28/19 03:00 04:00 05:00 Temperature 97.5 F L Pulse Rate 75 69 65 Pulse Rate [ Anterior Bilateral] Pulse Rate [ 68 From Monitor] Respiratory 13 13 12 Rate Respiratory Rate [Anterior Bilateral] Blood Pressure 133/78 114/67 114/67 O2 Sat by Pulse 100 98 99 Oximetry 03/28/19 03/28/19 03/28/19 05:57 06:00 07:00 Temperature Pulse Rate 63 63 79 Pulse Rate [ Anterior Bilateral] Pulse Rate [ From Monitor] Respiratory 12 12 Rate Respiratory Rate [Anterior Bilateral] Blood Pressure 100/54 93/54 96/55 O2 Sat by Pulse 99 98 97 Oximetry Constitutional: no acute distress, alert, other (elderly looking obese AAF with mild respiratory distress on MVS ) Eyes: non-icteric ENT: oropharynx moist, other (ETT 23 cm JA) Neck: supple, no lymphadenopathy, no JVD, other (large neck circumference) Effort: normal Ascultation: Bilateral: diminished breath sounds, rales (scant in bases), rhonchi Percussion: Bilateral: not dull Cardiovascular: regular rate and rhythm, other (S1, S2, no murmurs, gallops or rubs) Gastrointestinal: normoactive bowel sounds, soft, non-tender, non-distended, other (No HSM) Integumentary: normal Extremities: no cyanosis, no edema, pulses normal, no ischemia or petechiae Neurologic: non-focal exam, pupils equal and round Psychiatric: mood appropriate, affect normal CBC and BMP: 03/28/19 04:53 03/28/19 04:53 ABG, PT/INR, D-dimer: ABG POC ABG pH 7.500 (7.35-7.45) H 03/23/19 04:37 ABG pH 7.379 pH Units (7.350-7.450) 03/24/19 04:36 POC ABG pCO2 39.6 (35-45) 03/23/19 04:37 ABG pCO2 43.0 mm Hg 03/24/19 04:36 POC ABG pO2 60 (80-105) L 03/23/19 04:37 ABG pO2 104.6 mm Hg (80.0-90.0) H 03/24/19 04:36 POC ABG HCO3 30.8 (22-26 mml/L) 03/23/19 04:37 POC ABG Total CO2 32 (23-27mmol/L) 03/23/19 04:37 POC ABG O2 Sat 93 03/23/19 04:37 ABG O2 Saturation 97.7 % (95.0-99.0) 03/24/19 04:36 Abnormal lab findings: Abnormal Labs 03/10/19 03/10/19 03/10/19 13:16 13:16 14:38 WBC 0.8 L* RBC 3.35 L Hgb Hct MCV RDW 22.1 H Plt Count 78 L Lymph % (Auto) Lymph # Seg Neutrophils % Seg Neuts % (Manual) Lymphocytes % (Manual) 49.0 H Monocytes % (Manual) Eosinophils % (Manual) Nucleated RBC % Seg Neutrophils # Man 0.3 L Lymphocytes # (Manual) 0.4 L POC ABG pH ABG pH POC ABG pCO2 POC ABG pO2 ABG pO2 ABG HCO3 ABG Base Excess ABG Hemoglobin Oxyhemoglobin Sodium 147 H Potassium 5.4 H Chloride 111.8 H Carbon Dioxide BUN Creatinine 0.6 L Glucose POC Glucose Lactic Acid Calcium TIBC Ferritin AST 128 H ALT 79 H Alkaline Phosphatase 174 H Total Creatine Kinase CK-MB (CK-2) CK-MB (CK-2) Rel Index Troponin T Total Protein Albumin 2.4 L Urine WBC (Auto) 9.0 H Vancomycin Trough 03/10/19 03/10/19 03/11/19 21:22 23:36 07:29 WBC RBC Hgb Hct MCV RDW Plt Count Lymph % (Auto) Lymph # Seg Neutrophils % Seg Neuts % (Manual) Lymphocytes % (Manual) Monocytes % (Manual) Eosinophils % (Manual) Nucleated RBC % Seg Neutrophils # Man Lymphocytes # (Manual) POC ABG pH ABG pH POC ABG pCO2 POC ABG pO2 ABG pO2 ABG HCO3 ABG Base Excess ABG Hemoglobin Oxyhemoglobin Sodium 148 H Potassium 5.6 H Chloride 122.3 H Carbon Dioxide 20 L BUN Creatinine 0.6 L Glucose POC Glucose 65 L 112 H Lactic Acid Calcium TIBC Ferritin AST 102 H ALT 65 H Alkaline Phosphatase 134 H Total Creatine Kinase CK-MB (CK-2) CK-MB (CK-2) Rel Index Troponin T Total Protein 6.1 L Albumin 1.8 L Urine WBC (Auto) Vancomycin Trough 03/11/19 03/11/19 03/11/19 11:25 15:28 18:00 WBC 1.2 L* RBC Hgb Hct MCV RDW 22.1 H Plt Count 53 L Lymph % (Auto) Lymph # Seg Neutrophils % Seg Neuts % (Manual) 78.6 H Lymphocytes % (Manual) 9.5 L Monocytes % (Manual) 9.5 H Eosinophils % (Manual) Nucleated RBC % Seg Neutrophils # Man 0.9 L Lymphocytes # (Manual) 0.1 L POC ABG pH ABG pH POC ABG pCO2 POC ABG pO2 ABG pO2 ABG HCO3 ABG Base Excess ABG Hemoglobin Oxyhemoglobin Sodium Potassium Chloride Carbon Dioxide BUN Creatinine Glucose POC Glucose 117 H 118 H Lactic Acid Calcium TIBC Ferritin AST ALT Alkaline Phosphatase Total Creatine Kinase CK-MB (CK-2) CK-MB (CK-2) Rel Index Troponin T Total Protein Albumin Urine WBC (Auto) Vancomycin Trough 03/12/19 03/12/19 03/12/19 00:19 05:45 08:55 WBC 2.4 L RBC 3.33 L Hgb Hct MCV RDW 22.8 H Plt Count 58 L Lymph % (Auto) Lymph # Seg Neutrophils % Seg Neuts % (Manual) 93.0 H Lymphocytes % (Manual) 4.0 L Monocytes % (Manual) Eosinophils % (Manual) Nucleated RBC % 7.0 H Seg Neutrophils # Man Lymphocytes # (Manual) 0.1 L POC ABG pH ABG pH POC ABG pCO2 POC ABG pO2 ABG pO2 ABG HCO3 ABG Base Excess ABG Hemoglobin Oxyhemoglobin Sodium Potassium Chloride Carbon Dioxide BUN Creatinine Glucose POC Glucose 124 H 116 H Lactic Acid Calcium TIBC Ferritin AST ALT Alkaline Phosphatase Total Creatine Kinase CK-MB (CK-2) CK-MB (CK-2) Rel Index Troponin T Total Protein Albumin Urine WBC (Auto) Vancomycin Trough 03/12/19 03/13/19 03/13/19 08:55 00:18 03:48 WBC 2.7 L RBC 3.06 L Hgb 9.4 L Hct 29.4 L MCV RDW 23.1 H Plt Count 62 L Lymph % (Auto) Lymph # Seg Neutrophils % Seg Neuts % (Manual) 76.0 H Lymphocytes % (Manual) Monocytes % (Manual) Eosinophils % (Manual) Nucleated RBC % 11.0 H Seg Neutrophils # Man Lymphocytes # (Manual) 0.5 L POC ABG pH ABG pH POC ABG pCO2 POC ABG pO2 ABG pO2 ABG HCO3 ABG Base Excess ABG Hemoglobin Oxyhemoglobin Sodium Potassium 5.6 H Chloride 114.2 H Carbon Dioxide 21 L BUN Creatinine Glucose POC Glucose 119 H Lactic Acid Calcium TIBC Ferritin AST ALT Alkaline Phosphatase Total Creatine Kinase CK-MB (CK-2) CK-MB (CK-2) Rel Index Troponin T Total Protein Albumin Urine WBC (Auto) Vancomycin Trough 03/13/19 03/13/19 03/13/19 03:48 05:52 05:58 WBC RBC Hgb Hct MCV RDW Plt Count Lymph % (Auto) Lymph # Seg Neutrophils % Seg Neuts % (Manual) Lymphocytes % (Manual) Monocytes % (Manual) Eosinophils % (Manual) Nucleated RBC % Seg Neutrophils # Man Lymphocytes # (Manual) POC ABG pH ABG pH POC ABG pCO2 POC ABG pO2 ABG pO2 ABG HCO3 ABG Base Excess ABG Hemoglobin Oxyhemoglobin Sodium Potassium Chloride 112.7 H Carbon Dioxide 21 L BUN Creatinine Glucose 103 H POC Glucose 114 H Lactic Acid Calcium TIBC Ferritin AST ALT Alkaline Phosphatase Total Creatine Kinase CK-MB (CK-2) CK-MB (CK-2) Rel Index Troponin T Total Protein Albumin Urine WBC (Auto) Vancomycin Trough 39.7 H 03/13/19 03/13/19 03/14/19 12:12 18:00 00:17 WBC RBC Hgb Hct MCV RDW Plt Count Lymph % (Auto) Lymph # Seg Neutrophils % Seg Neuts % (Manual) Lymphocytes % (Manual) Monocytes % (Manual) Eosinophils % (Manual) Nucleated RBC % Seg Neutrophils # Man Lymphocytes # (Manual) POC ABG pH ABG pH POC ABG pCO2 POC ABG pO2 ABG pO2 ABG HCO3 ABG Base Excess ABG Hemoglobin Oxyhemoglobin Sodium Potassium Chloride Carbon Dioxide BUN Creatinine Glucose POC Glucose 116 H 132 H 130 H Lactic Acid Calcium TIBC Ferritin AST ALT Alkaline Phosphatase Total Creatine Kinase CK-MB (CK-2) CK-MB (CK-2) Rel Index Troponin T Total Protein Albumin Urine WBC (Auto) Vancomycin Trough 03/14/19 03/14/19 03/14/19 05:24 06:44 06:44 WBC 2.6 L RBC 3.00 L Hgb 9.2 L Hct 28.3 L MCV RDW 22.5 H Plt Count 44 L Lymph % (Auto) Lymph # Seg Neutrophils % Seg Neuts % (Manual) 75.0 H Lymphocytes % (Manual) Monocytes % (Manual) Eosinophils % (Manual) 5.0 H Nucleated RBC % 19.0 H Seg Neutrophils # Man Lymphocytes # (Manual) 0.4 L POC ABG pH ABG pH POC ABG pCO2 POC ABG pO2 ABG pO2 ABG HCO3 ABG Base Excess ABG Hemoglobin Oxyhemoglobin Sodium Potassium Chloride 110.2 H Carbon Dioxide 21 L BUN Creatinine 1.3 H Glucose POC Glucose 110 H Lactic Acid Calcium TIBC Ferritin AST 144 H ALT 90 H Alkaline Phosphatase 226 H Total Creatine Kinase CK-MB (CK-2) 8.6 H CK-MB (CK-2) Rel Index 7.1 H Troponin T 0.056 H D Total Protein Albumin 2.2 L Urine WBC (Auto) Vancomycin Trough 03/14/19 03/14/19 03/14/19 09:05 11:54 12:15 WBC RBC Hgb Hct MCV RDW Plt Count Lymph % (Auto) Lymph # Seg Neutrophils % Seg Neuts % (Manual) Lymphocytes % (Manual) Monocytes % (Manual) Eosinophils % (Manual) Nucleated RBC % Seg Neutrophils # Man Lymphocytes # (Manual) POC ABG pH 7.283 L 7.458 H ABG pH POC ABG pCO2 54.9 H 32.7 L POC ABG pO2 76 L ABG pO2 ABG HCO3 ABG Base Excess ABG Hemoglobin Oxyhemoglobin Sodium Potassium Chloride Carbon Dioxide BUN Creatinine Glucose POC Glucose Lactic Acid 2.10 H* Calcium TIBC Ferritin AST ALT Alkaline Phosphatase Total Creatine Kinase CK-MB (CK-2) CK-MB (CK-2) Rel Index Troponin T Total Protein Albumin Urine WBC (Auto) Vancomycin Trough 03/14/19 03/14/19 03/14/19 12:43 13:35 15:35 WBC RBC Hgb Hct MCV RDW Plt Count Lymph % (Auto) Lymph # Seg Neutrophils % Seg Neuts % (Manual) Lymphocytes % (Manual) Monocytes % (Manual) Eosinophils % (Manual) Nucleated RBC % Seg Neutrophils # Man Lymphocytes # (Manual) POC ABG pH ABG pH POC ABG pCO2 POC ABG pO2 ABG pO2 ABG HCO3 ABG Base Excess ABG Hemoglobin Oxyhemoglobin Sodium Potassium Chloride Carbon Dioxide BUN Creatinine Glucose POC Glucose 68 L Lactic Acid 2.10 H* 3.50 H* Calcium TIBC Ferritin AST ALT Alkaline Phosphatase Total Creatine Kinase CK-MB (CK-2) CK-MB (CK-2) Rel Index Troponin T Total Protein Albumin Urine WBC (Auto) Vancomycin Trough 03/14/19 03/14/19 03/14/19 17:34 17:46 17:55 WBC RBC Hgb Hct MCV RDW Plt Count Lymph % (Auto) Lymph # Seg Neutrophils % Seg Neuts % (Manual) Lymphocytes % (Manual) Monocytes % (Manual) Eosinophils % (Manual) Nucleated RBC % Seg Neutrophils # Man Lymphocytes # (Manual) POC ABG pH 7.241 L 7.244 L ABG pH POC ABG pCO2 50.4 H 50.1 H POC ABG pO2 156 H ABG pO2 ABG HCO3 ABG Base Excess ABG Hemoglobin Oxyhemoglobin Sodium Potassium Chloride Carbon Dioxide BUN Creatinine Glucose POC Glucose 49 L Lactic Acid Calcium TIBC Ferritin AST ALT Alkaline Phosphatase Total Creatine Kinase CK-MB (CK-2) CK-MB (CK-2) Rel Index Troponin T Total Protein Albumin Urine WBC (Auto) Vancomycin Trough 03/14/19 03/14/19 03/14/19 18:29 18:32 20:27 WBC RBC Hgb Hct MCV RDW Plt Count Lymph % (Auto) Lymph # Seg Neutrophils % Seg Neuts % (Manual) Lymphocytes % (Manual) Monocytes % (Manual) Eosinophils % (Manual) Nucleated RBC % Seg Neutrophils # Man Lymphocytes # (Manual) POC ABG pH ABG pH POC ABG pCO2 POC ABG pO2 ABG pO2 ABG HCO3 ABG Base Excess ABG Hemoglobin Oxyhemoglobin Sodium Potassium Chloride 112.6 H Carbon Dioxide 19 L BUN Creatinine 1.4 H Glucose 132 H POC Glucose 57 L 115 H Lactic Acid Calcium TIBC Ferritin AST ALT Alkaline Phosphatase Total Creatine Kinase CK-MB (CK-2) CK-MB (CK-2) Rel Index Troponin T Total Protein Albumin Urine WBC (Auto) Vancomycin Trough 03/14/19 03/14/19 03/15/19 23:47 Unknown 04:00 WBC RBC 2.77 L Hgb 8.5 L Hct 27.3 L MCV 98 H RDW 23.0 H Plt Count 27 L Lymph % (Auto) Lymph # Seg Neutrophils % Seg Neuts % (Manual) 75.0 H Lymphocytes % (Manual) 1.0 L Monocytes % (Manual) Eosinophils % (Manual) Nucleated RBC % 4.0 H Seg Neutrophils # Man Lymphocytes # (Manual) 0.1 L POC ABG pH ABG pH POC ABG pCO2 POC ABG pO2 ABG pO2 ABG HCO3 ABG Base Excess ABG Hemoglobin Oxyhemoglobin Sodium Potassium Chloride Carbon Dioxide BUN Creatinine Glucose POC Glucose 116 H Lactic Acid 3.30 H* Calcium TIBC Ferritin AST ALT Alkaline Phosphatase Total Creatine Kinase CK-MB (CK-2) CK-MB (CK-2) Rel Index Troponin T Total Protein Albumin Urine WBC (Auto) Vancomycin Trough 03/15/19 03/15/19 03/15/19 04:00 06:24 07:35 WBC RBC Hgb Hct MCV RDW Plt Count Lymph % (Auto) Lymph # Seg Neutrophils % Seg Neuts % (Manual) Lymphocytes % (Manual) Monocytes % (Manual) Eosinophils % (Manual) Nucleated RBC % Seg Neutrophils # Man Lymphocytes # (Manual) POC ABG pH 7.282 L ABG pH POC ABG pCO2 50.4 H POC ABG pO2 71 L ABG pO2 ABG HCO3 ABG Base Excess ABG Hemoglobin Oxyhemoglobin Sodium Potassium Chloride 112.1 H Carbon Dioxide 19 L BUN Creatinine 1.5 H Glucose 123 H POC Glucose 140 H Lactic Acid Calcium 8.2 L TIBC Ferritin AST ALT Alkaline Phosphatase Total Creatine Kinase CK-MB (CK-2) CK-MB (CK-2) Rel Index Troponin T Total Protein Albumin Urine WBC (Auto) Vancomycin Trough 03/15/19 03/15/19 03/16/19 11:47 23:25 04:33 WBC RBC Hgb Hct MCV RDW Plt Count Lymph % (Auto) Lymph # Seg Neutrophils % Seg Neuts % (Manual) Lymphocytes % (Manual) Monocytes % (Manual) Eosinophils % (Manual) Nucleated RBC % Seg Neutrophils # Man Lymphocytes # (Manual) POC ABG pH ABG pH 7.304 L POC ABG pCO2 POC ABG pO2 ABG pO2 174.4 H ABG HCO3 19.2 L ABG Base Excess -6.6 L ABG Hemoglobin 8.5 L Oxyhemoglobin Sodium Potassium Chloride Carbon Dioxide BUN Creatinine Glucose POC Glucose 161 H 139 H Lactic Acid Calcium TIBC Ferritin AST ALT Alkaline Phosphatase Total Creatine Kinase CK-MB (CK-2) CK-MB (CK-2) Rel Index Troponin T Total Protein Albumin Urine WBC (Auto) Vancomycin Trough 03/16/19 03/16/19 03/16/19 05:19 05:19 05:19 WBC RBC 2.92 L Hgb 8.9 L Hct 28.0 L MCV RDW 22.8 H Plt Count 42 L Lymph % (Auto) Lymph # Seg Neutrophils % Seg Neuts % (Manual) 84.0 H Lymphocytes % (Manual) 5.0 L Monocytes % (Manual) Eosinophils % (Manual) Nucleated RBC % Seg Neutrophils # Man 7.8 H Lymphocytes # (Manual) 0.5 L POC ABG pH ABG pH POC ABG pCO2 POC ABG pO2 ABG pO2 ABG HCO3 ABG Base Excess ABG Hemoglobin Oxyhemoglobin Sodium Potassium 5.2 H Chloride 114.0 H Carbon Dioxide 18 L BUN 22 H Creatinine 1.7 H Glucose 109 H POC Glucose Lactic Acid Calcium 8.0 L TIBC Ferritin AST ALT Alkaline Phosphatase Total Creatine Kinase 194 H CK-MB (CK-2) CK-MB (CK-2) Rel Index Troponin T Total Protein Albumin Urine WBC (Auto) Vancomycin Trough 03/16/19 03/16/19 03/16/19 05:51 12:19 17:42 WBC RBC Hgb Hct MCV RDW Plt Count Lymph % (Auto) Lymph # Seg Neutrophils % Seg Neuts % (Manual) Lymphocytes % (Manual) Monocytes % (Manual) Eosinophils % (Manual) Nucleated RBC % Seg Neutrophils # Man Lymphocytes # (Manual) POC ABG pH ABG pH POC ABG pCO2 POC ABG pO2 ABG pO2 ABG HCO3 ABG Base Excess ABG Hemoglobin Oxyhemoglobin Sodium Potassium Chloride Carbon Dioxide BUN Creatinine Glucose POC Glucose 123 H 134 H 130 H Lactic Acid Calcium TIBC Ferritin AST ALT Alkaline Phosphatase Total Creatine Kinase CK-MB (CK-2) CK-MB (CK-2) Rel Index Troponin T Total Protein Albumin Urine WBC (Auto) Vancomycin Trough 03/17/19 03/17/19 03/17/19 00:46 04:45 04:45 WBC RBC 2.42 L Hgb 7.5 L Hct 23.4 L MCV RDW 22.2 H Plt Count 37 L Lymph % (Auto) 6.2 L Lymph # 0.5 L Seg Neutrophils % 84.0 H Seg Neuts % (Manual) Lymphocytes % (Manual) Monocytes % (Manual) Eosinophils % (Manual) Nucleated RBC % Seg Neutrophils # Man Lymphocytes # (Manual) POC ABG pH ABG pH POC ABG pCO2 POC ABG pO2 ABG pO2 ABG HCO3 ABG Base Excess ABG Hemoglobin Oxyhemoglobin Sodium Potassium Chloride 115.4 H Carbon Dioxide 16 L BUN 27 H Creatinine 1.8 H Glucose 109 H POC Glucose 115 H Lactic Acid Calcium 7.9 L TIBC Ferritin AST ALT Alkaline Phosphatase Total Creatine Kinase CK-MB (CK-2) CK-MB (CK-2) Rel Index Troponin T Total Protein Albumin Urine WBC (Auto) Vancomycin Trough 03/17/19 03/17/19 03/17/19 05:00 06:05 11:15 WBC RBC Hgb Hct MCV RDW Plt Count Lymph % (Auto) Lymph # Seg Neutrophils % Seg Neuts % (Manual) Lymphocytes % (Manual) Monocytes % (Manual) Eosinophils % (Manual) Nucleated RBC % Seg Neutrophils # Man Lymphocytes # (Manual) POC ABG pH ABG pH 7.238 L POC ABG pCO2 POC ABG pO2 ABG pO2 114.7 H ABG HCO3 17.9 L ABG Base Excess -8.8 L ABG Hemoglobin 7.3 L Oxyhemoglobin Sodium Potassium Chloride Carbon Dioxide BUN Creatinine Glucose POC Glucose 124 H Lactic Acid Calcium TIBC 127 L Ferritin AST ALT Alkaline Phosphatase Total Creatine Kinase CK-MB (CK-2) CK-MB (CK-2) Rel Index Troponin T Total Protein Albumin Urine WBC (Auto) Vancomycin Trough 03/17/19 03/17/19 03/17/19 11:15 12:06 18:27 WBC RBC Hgb Hct MCV RDW Plt Count Lymph % (Auto) Lymph # Seg Neutrophils % Seg Neuts % (Manual) Lymphocytes % (Manual) Monocytes % (Manual) Eosinophils % (Manual) Nucleated RBC % Seg Neutrophils # Man Lymphocytes # (Manual) POC ABG pH ABG pH POC ABG pCO2 POC ABG pO2 ABG pO2 ABG HCO3 ABG Base Excess ABG Hemoglobin Oxyhemoglobin Sodium Potassium Chloride Carbon Dioxide BUN Creatinine Glucose POC Glucose 133 H 158 H Lactic Acid Calcium TIBC Ferritin 512.4 H AST ALT Alkaline Phosphatase Total Creatine Kinase CK-MB (CK-2) CK-MB (CK-2) Rel Index Troponin T Total Protein Albumin Urine WBC (Auto) Vancomycin Trough 03/17/19 03/18/19 03/18/19 23:30 04:00 05:45 WBC RBC 2.31 L Hgb 7.0 L Hct 22.0 L MCV RDW 22.2 H Plt Count 45 L Lymph % (Auto) Lymph # Seg Neutrophils % Seg Neuts % (Manual) 82.0 H Lymphocytes % (Manual) 12.0 L Monocytes % (Manual) Eosinophils % (Manual) 5.0 H Nucleated RBC % 1.0 H Seg Neutrophils # Man Lymphocytes # (Manual) 0.8 L POC ABG pH ABG pH POC ABG pCO2 POC ABG pO2 ABG pO2 113.7 H ABG HCO3 ABG Base Excess -3.0 L ABG Hemoglobin 7.0 L Oxyhemoglobin Sodium Potassium Chloride Carbon Dioxide BUN Creatinine Glucose POC Glucose 143 H Lactic Acid Calcium TIBC Ferritin AST ALT Alkaline Phosphatase Total Creatine Kinase CK-MB (CK-2) CK-MB (CK-2) Rel Index Troponin T Total Protein Albumin Urine WBC (Auto) Vancomycin Trough 03/18/19 03/18/19 03/18/19 05:48 05:50 14:01 WBC RBC Hgb Hct MCV RDW Plt Count Lymph % (Auto) Lymph # Seg Neutrophils % Seg Neuts % (Manual) Lymphocytes % (Manual) Monocytes % (Manual) Eosinophils % (Manual) Nucleated RBC % Seg Neutrophils # Man Lymphocytes # (Manual) POC ABG pH 7.299 L ABG pH POC ABG pCO2 48.7 H POC ABG pO2 ABG pO2 ABG HCO3 ABG Base Excess ABG Hemoglobin Oxyhemoglobin Sodium Potassium Chloride 109.9 H Carbon Dioxide BUN 28 H Creatinine 1.5 H Glucose 128 H POC Glucose 118 H Lactic Acid Calcium 7.6 L TIBC Ferritin AST ALT Alkaline Phosphatase Total Creatine Kinase CK-MB (CK-2) CK-MB (CK-2) Rel Index Troponin T Total Protein Albumin Urine WBC (Auto) Vancomycin Trough 03/18/19 03/19/19 03/19/19 23:53 04:43 06:02 WBC RBC Hgb Hct MCV RDW Plt Count Lymph % (Auto) Lymph # Seg Neutrophils % Seg Neuts % (Manual) Lymphocytes % (Manual) Monocytes % (Manual) Eosinophils % (Manual) Nucleated RBC % Seg Neutrophils # Man Lymphocytes # (Manual) POC ABG pH ABG pH 7.332 L POC ABG pCO2 POC ABG pO2 ABG pO2 116.2 H ABG HCO3 ABG Base Excess -3.3 L ABG Hemoglobin 7.3 L Oxyhemoglobin 94.9 L Sodium Potassium Chloride Carbon Dioxide BUN Creatinine Glucose POC Glucose 130 H 122 H Lactic Acid Calcium TIBC Ferritin AST ALT Alkaline Phosphatase Total Creatine Kinase CK-MB (CK-2) CK-MB (CK-2) Rel Index Troponin T Total Protein Albumin Urine WBC (Auto) Vancomycin Trough 03/19/19 03/19/19 03/19/19 12:16 15:33 23:44 WBC RBC Hgb Hct MCV RDW Plt Count Lymph % (Auto) Lymph # Seg Neutrophils % Seg Neuts % (Manual) Lymphocytes % (Manual) Monocytes % (Manual) Eosinophils % (Manual) Nucleated RBC % Seg Neutrophils # Man Lymphocytes # (Manual) POC ABG pH 7.316 L ABG pH POC ABG pCO2 45.7 H POC ABG pO2 ABG pO2 ABG HCO3 ABG Base Excess ABG Hemoglobin Oxyhemoglobin Sodium Potassium Chloride Carbon Dioxide BUN Creatinine Glucose POC Glucose 132 H 106 H Lactic Acid Calcium TIBC Ferritin AST ALT Alkaline Phosphatase Total Creatine Kinase CK-MB (CK-2) CK-MB (CK-2) Rel Index Troponin T Total Protein Albumin Urine WBC (Auto) Vancomycin Trough 03/20/19 03/20/1919 01:00 EST 04:27 12:06 WBC RBC Hgb Hct MCV RDW Plt Count Lymph % (Auto) Lymph # Seg Neutrophils % Seg Neuts % (Manual) Lymphocytes % (Manual) Monocytes % (Manual) Eosinophils % (Manual) Nucleated RBC % Seg Neutrophils # Man Lymphocytes # (Manual) POC ABG pH ABG pH POC ABG pCO2 POC ABG pO2 ABG pO2 121.6 H ABG HCO3 ABG Base Excess ABG Hemoglobin 7.1 L Oxyhemoglobin Sodium Potassium 3.4 L Chloride 111.7 H Carbon Dioxide BUN 29 H Creatinine Glucose POC Glucose 134 H Lactic Acid Calcium 8.0 L TIBC Ferritin AST ALT Alkaline Phosphatase Total Creatine Kinase CK-MB (CK-2) CK-MB (CK-2) Rel Index Troponin T Total Protein Albumin Urine WBC (Auto) Vancomycin Trough 03/20/19 03/20/19 03/21/19 18:09 23:36 05:42 WBC RBC Hgb Hct MCV RDW Plt Count Lymph % (Auto) Lymph # Seg Neutrophils % Seg Neuts % (Manual) Lymphocytes % (Manual) Monocytes % (Manual) Eosinophils % (Manual) Nucleated RBC % Seg Neutrophils # Man Lymphocytes # (Manual) POC ABG pH ABG pH POC ABG pCO2 POC ABG pO2 ABG pO2 ABG HCO3 ABG Base Excess ABG Hemoglobin Oxyhemoglobin Sodium Potassium Chloride Carbon Dioxide BUN Creatinine Glucose POC Glucose 133 H 114 H 116 H Lactic Acid Calcium TIBC Ferritin AST ALT Alkaline Phosphatase Total Creatine Kinase CK-MB (CK-2) CK-MB (CK-2) Rel Index Troponin T Total Protein Albumin Urine WBC (Auto) Vancomycin Trough 03/21/19 03/21/19 03/21/19 08:12 14:09 17:51 WBC 3.9 L RBC 2.25 L Hgb 7.1 L Hct 21.6 L MCV RDW 21.6 H Plt Count 105 L Lymph % (Auto) Lymph # Seg Neutrophils % Seg Neuts % (Manual) Lymphocytes % (Manual) 13.0 L Monocytes % (Manual) 13.0 H Eosinophils % (Manual) Nucleated RBC % Seg Neutrophils # Man Lymphocytes # (Manual) 0.5 L POC ABG pH ABG pH POC ABG pCO2 POC ABG pO2 120 H ABG pO2 ABG HCO3 ABG Base Excess ABG Hemoglobin Oxyhemoglobin Sodium Potassium Chloride Carbon Dioxide BUN Creatinine Glucose POC Glucose 145 H Lactic Acid Calcium TIBC Ferritin AST ALT Alkaline Phosphatase Total Creatine Kinase CK-MB (CK-2) CK-MB (CK-2) Rel Index Troponin T Total Protein Albumin Urine WBC (Auto) Vancomycin Trough 03/22/19 03/22/19 03/22/19 05:36 11:10 11:39 WBC RBC Hgb Hct MCV RDW Plt Count Lymph % (Auto) Lymph # Seg Neutrophils % Seg Neuts % (Manual) Lymphocytes % (Manual) Monocytes % (Manual) Eosinophils % (Manual) Nucleated RBC % Seg Neutrophils # Man Lymphocytes # (Manual) POC ABG pH ABG pH POC ABG pCO2 POC ABG pO2 ABG pO2 ABG HCO3 ABG Base Excess ABG Hemoglobin Oxyhemoglobin Sodium 149 H Potassium Chloride 115.6 H Carbon Dioxide BUN 20 H Creatinine Glucose 109 H POC Glucose 106 H 124 H Lactic Acid Calcium TIBC Ferritin AST ALT Alkaline Phosphatase Total Creatine Kinase CK-MB (CK-2) CK-MB (CK-2) Rel Index Troponin T Total Protein Albumin Urine WBC (Auto) Vancomycin Trough 03/22/19 03/22/19 03/22/19 12:04 18:36 Unknown WBC 4.2 L RBC 2.45 L Hgb 7.6 L Hct 23.9 L MCV 98 H RDW 22.2 H Plt Count Lymph % (Auto) Lymph # Seg Neutrophils % Seg Neuts % (Manual) Lymphocytes % (Manual) Monocytes % (Manual) Eosinophils % (Manual) Nucleated RBC % Seg Neutrophils # Man Lymphocytes # (Manual) POC ABG pH 7.285 L ABG pH POC ABG pCO2 55.4 H POC ABG pO2 ABG pO2 ABG HCO3 ABG Base Excess ABG Hemoglobin Oxyhemoglobin Sodium Potassium Chloride Carbon Dioxide BUN Creatinine Glucose POC Glucose 120 H Lactic Acid Calcium TIBC Ferritin AST ALT Alkaline Phosphatase Total Creatine Kinase CK-MB (CK-2) CK-MB (CK-2) Rel Index Troponin T Total Protein Albumin Urine WBC (Auto) Vancomycin Trough 03/23/19 03/23/19 03/23/19 04:37 05:12 05:30 WBC 4.2 L RBC 2.22 L Hgb 7.0 L Hct 21.4 L MCV RDW 21.5 H Plt Count Lymph % (Auto) Lymph # Seg Neutrophils % Seg Neuts % (Manual) Lymphocytes % (Manual) Monocytes % (Manual) Eosinophils % (Manual) Nucleated RBC % Seg Neutrophils # Man Lymphocytes # (Manual) POC ABG pH 7.500 H ABG pH POC ABG pCO2 POC ABG pO2 60 L ABG pO2 ABG HCO3 ABG Base Excess ABG Hemoglobin Oxyhemoglobin Sodium Potassium Chloride Carbon Dioxide BUN Creatinine Glucose POC Glucose 106 H Lactic Acid Calcium TIBC Ferritin AST ALT Alkaline Phosphatase Total Creatine Kinase CK-MB (CK-2) CK-MB (CK-2) Rel Index Troponin T Total Protein Albumin Urine WBC (Auto) Vancomycin Trough 03/23/19 03/23/19 03/23/19 05:30 11:50 18:11 WBC RBC Hgb Hct MCV RDW Plt Count Lymph % (Auto) Lymph # Seg Neutrophils % Seg Neuts % (Manual) Lymphocytes % (Manual) Monocytes % (Manual) Eosinophils % (Manual) Nucleated RBC % Seg Neutrophils # Man Lymphocytes # (Manual) POC ABG pH ABG pH POC ABG pCO2 POC ABG pO2 ABG pO2 ABG HCO3 ABG Base Excess ABG Hemoglobin Oxyhemoglobin Sodium 149 H Potassium Chloride 114.7 H Carbon Dioxide BUN 19 H Creatinine Glucose POC Glucose 118 H 107 H Lactic Acid Calcium 8.3 L TIBC Ferritin AST ALT Alkaline Phosphatase Total Creatine Kinase CK-MB (CK-2) CK-MB (CK-2) Rel Index Troponin T Total Protein Albumin Urine WBC (Auto) Vancomycin Trough 03/23/19 03/24/19 03/24/19 23:23 04:36 04:42 WBC 4.0 L RBC 2.46 L Hgb 7.9 L Hct 24.4 L MCV 99 H RDW 23.5 H Plt Count Lymph % (Auto) Lymph # Seg Neutrophils % Seg Neuts % (Manual) Lymphocytes % (Manual) Monocytes % (Manual) Eosinophils % (Manual) Nucleated RBC % Seg Neutrophils # Man Lymphocytes # (Manual) POC ABG pH ABG pH POC ABG pCO2 POC ABG pO2 ABG pO2 104.6 H ABG HCO3 ABG Base Excess ABG Hemoglobin 7.1 L Oxyhemoglobin Sodium Potassium Chloride Carbon Dioxide BUN Creatinine Glucose POC Glucose 112 H Lactic Acid Calcium TIBC Ferritin AST ALT Alkaline Phosphatase Total Creatine Kinase CK-MB (CK-2) CK-MB (CK-2) Rel Index Troponin T Total Protein Albumin Urine WBC (Auto) Vancomycin Trough 03/24/19 03/24/19 03/24/19 04:42 06:03 12:24 WBC RBC Hgb Hct MCV RDW Plt Count Lymph % (Auto) Lymph # Seg Neutrophils % Seg Neuts % (Manual) Lymphocytes % (Manual) Monocytes % (Manual) Eosinophils % (Manual) Nucleated RBC % Seg Neutrophils # Man Lymphocytes # (Manual) POC ABG pH ABG pH POC ABG pCO2 POC ABG pO2 ABG pO2 ABG HCO3 ABG Base Excess ABG Hemoglobin Oxyhemoglobin Sodium 149 H Potassium Chloride 115.7 H Carbon Dioxide BUN 18 H Creatinine Glucose 128 H POC Glucose 136 H 137 H Lactic Acid Calcium 8.3 L TIBC Ferritin AST ALT Alkaline Phosphatase Total Creatine Kinase CK-MB (CK-2) CK-MB (CK-2) Rel Index Troponin T Total Protein Albumin Urine WBC (Auto) Vancomycin Trough 03/24/19 03/24/19 03/25/19 17:48 23:51 04:45 WBC RBC 2.35 L Hgb 7.5 L Hct 23.4 L MCV 100 H RDW 24.7 H Plt Count Lymph % (Auto) Lymph # Seg Neutrophils % Seg Neuts % (Manual) Lymphocytes % (Manual) Monocytes % (Manual) Eosinophils % (Manual) Nucleated RBC % Seg Neutrophils # Man Lymphocytes # (Manual) POC ABG pH ABG pH POC ABG pCO2 POC ABG pO2 ABG pO2 ABG HCO3 ABG Base Excess ABG Hemoglobin Oxyhemoglobin Sodium Potassium Chloride Carbon Dioxide BUN Creatinine Glucose POC Glucose 139 H 131 H Lactic Acid Calcium TIBC Ferritin AST ALT Alkaline Phosphatase Total Creatine Kinase CK-MB (CK-2) CK-MB (CK-2) Rel Index Troponin T Total Protein Albumin Urine WBC (Auto) Vancomycin Trough 03/25/19 03/25/19 03/25/19 04:45 05:33 18:21 WBC RBC Hgb Hct MCV RDW Plt Count Lymph % (Auto) Lymph # Seg Neutrophils % Seg Neuts % (Manual) Lymphocytes % (Manual) Monocytes % (Manual) Eosinophils % (Manual) Nucleated RBC % Seg Neutrophils # Man Lymphocytes # (Manual) POC ABG pH ABG pH POC ABG pCO2 POC ABG pO2 ABG pO2 ABG HCO3 ABG Base Excess ABG Hemoglobin Oxyhemoglobin Sodium 146 H Potassium Chloride 114.1 H Carbon Dioxide BUN Creatinine Glucose 117 H POC Glucose 129 H 120 H Lactic Acid Calcium TIBC Ferritin AST ALT Alkaline Phosphatase Total Creatine Kinase CK-MB (CK-2) CK-MB (CK-2) Rel Index Troponin T Total Protein Albumin Urine WBC (Auto) Vancomycin Trough 03/26/19 03/26/19 03/26/19 04:40 06:50 16:18 WBC 4.1 L RBC 2.35 L Hgb 7.5 L Hct 23.4 L MCV 100 H RDW 25.1 H Plt Count Lymph % (Auto) Lymph # Seg Neutrophils % Seg Neuts % (Manual) Lymphocytes % (Manual) Monocytes % (Manual) Eosinophils % (Manual) Nucleated RBC % Seg Neutrophils # Man Lymphocytes # (Manual) POC ABG pH ABG pH POC ABG pCO2 POC ABG pO2 ABG pO2 ABG HCO3 ABG Base Excess ABG Hemoglobin Oxyhemoglobin Sodium Potassium Chloride 113.9 H Carbon Dioxide BUN Creatinine Glucose POC Glucose 115 H Lactic Acid Calcium TIBC Ferritin AST ALT Alkaline Phosphatase Total Creatine Kinase CK-MB (CK-2) CK-MB (CK-2) Rel Index Troponin T Total Protein Albumin Urine WBC (Auto) Vancomycin Trough 03/26/19 03/27/19 03/27/19 18:06 01:57 05:27 WBC 2.9 L RBC 2.52 L Hgb 8.1 L Hct 25.1 L MCV 100 H RDW 24.7 H Plt Count Lymph % (Auto) Lymph # Seg Neutrophils % Seg Neuts % (Manual) Lymphocytes % (Manual) Monocytes % (Manual) Eosinophils % (Manual) Nucleated RBC % Seg Neutrophils # Man Lymphocytes # (Manual) POC ABG pH ABG pH POC ABG pCO2 POC ABG pO2 ABG pO2 ABG HCO3 ABG Base Excess ABG Hemoglobin Oxyhemoglobin Sodium Potassium Chloride Carbon Dioxide BUN Creatinine Glucose POC Glucose 121 H 130 H Lactic Acid Calcium TIBC Ferritin AST ALT Alkaline Phosphatase Total Creatine Kinase CK-MB (CK-2) CK-MB (CK-2) Rel Index Troponin T Total Protein Albumin Urine WBC (Auto) Vancomycin Trough 03/27/19 03/27/19 03/27/19 05:27 18:49 23:53 WBC RBC Hgb Hct MCV RDW Plt Count Lymph % (Auto) Lymph # Seg Neutrophils % Seg Neuts % (Manual) Lymphocytes % (Manual) Monocytes % (Manual) Eosinophils % (Manual) Nucleated RBC % Seg Neutrophils # Man Lymphocytes # (Manual) POC ABG pH ABG pH POC ABG pCO2 POC ABG pO2 ABG pO2 ABG HCO3 ABG Base Excess ABG Hemoglobin Oxyhemoglobin Sodium 148 H Potassium Chloride 114.5 H Carbon Dioxide BUN Creatinine 0.6 L Glucose 109 H POC Glucose 131 H 115 H Lactic Acid Calcium TIBC Ferritin AST ALT Alkaline Phosphatase Total Creatine Kinase CK-MB (CK-2) CK-MB (CK-2) Rel Index Troponin T Total Protein Albumin Urine WBC (Auto) Vancomycin Trough 03/28/19 03/28/19 04:53 04:53 WBC 3.2 L RBC 2.41 L Hgb 7.7 L Hct 24.3 L MCV 101 H RDW 25.4 H Plt Count Lymph % (Auto) Lymph # Seg Neutrophils % Seg Neuts % (Manual) Lymphocytes % (Manual) Monocytes % (Manual) Eosinophils % (Manual) Nucleated RBC % Seg Neutrophils # Man Lymphocytes # (Manual) POC ABG pH ABG pH POC ABG pCO2 POC ABG pO2 ABG pO2 ABG HCO3 ABG Base Excess ABG Hemoglobin Oxyhemoglobin Sodium 149 H Potassium Chloride 114.6 H Carbon Dioxide BUN Creatinine 0.5 L Glucose POC Glucose Lactic Acid Calcium TIBC Ferritin AST ALT Alkaline Phosphatase Total Creatine Kinase CK-MB (CK-2) CK-MB (CK-2) Rel Index Troponin T Total Protein Albumin Urine WBC (Auto) Vancomycin Trough Chest x-ray: image reviewed Allied health notes reviewed: nursing
[2019-03-28] MEDS: FAMOTIDINE 20 MG TAB PO SCH ×2 (09:46→21:06)
[2019-03-28] MEDS: ENOXAPARIN 40 MG/0.4 ML INJ SUB-Q SCH (09:46)
[2019-03-28] MEDS: THIAMINE 100 MG TAB PO SCH (09:46)
[2019-03-28] MEDS: RIFAXIMIN 550 MG TAB PO SCH ×2 (09:46→21:06)
[2019-03-28] MEDS: FOLIC ACID 1 MG TAB PO SCH (09:46)
[2019-03-28] MEDS: FLUTICASONE PROPIONATE NASAL SPRAY 16 GM NS SCH (09:47)
--- NOTE | 2019-03-28 10:54 | Progress Note ---
Assessment and Plan 68 yo F with 1. VDRF 2. septic shock 3. UTI 4. hepC 5. s/p code blue Plan: 1. continue vent management per critical care team 2. Trach/PEG scheduled for tomorrow 03/29/19 @1430 3. Hold TF after MN tonight 4. Discussed all risks, benefits, alternatives to surgery with son Sherman Jones and he is agreeable to proceed. Thank you, please call with questions. Subjective Date of service: 03/28/19 Narrative: Pt seen and examined. No acute change in patient's condition. Objective Vital Signs - 12hr 03/27/19 03/27/19 03/28/19 23:00 23:10 00:00 Temperature 94.8 F L Pulse Rate 78 77 69 Pulse Rate [ Anterior Bilateral] Pulse Rate [ 67 From Monitor] Respiratory 14 17 11 L Rate Respiratory Rate [Anterior Bilateral] Blood Pressure 127/76 124/80 124/85 O2 Sat by Pulse 100 99 99 Oximetry 03/28/19 03/28/19 03/28/19 00:55 01:00 02:00 Temperature Pulse Rate 59 L 63 72 Pulse Rate [ Anterior Bilateral] Pulse Rate [ From Monitor] Respiratory 12 13 Rate Respiratory Rate [Anterior Bilateral] Blood Pressure 124/59 114/68 134/71 O2 Sat by Pulse 100 100 100 Oximetry 03/28/19 03/28/19 03/28/19 02:13 03:00 04:00 Temperature 97.5 F L Pulse Rate 75 69 Pulse Rate [ 73 Anterior Bilateral] Pulse Rate [ 68 From Monitor] Respiratory 13 13 Rate Respiratory 12 Rate [Anterior Bilateral] Blood Pressure 133/78 114/67 O2 Sat by Pulse 100 98 Oximetry 03/28/19 03/28/19 03/28/19 05:00 05:57 06:00 Temperature Pulse Rate 65 63 63 Pulse Rate [ Anterior Bilateral] Pulse Rate [ From Monitor] Respiratory 12 12 Rate Respiratory Rate [Anterior Bilateral] Blood Pressure 114/67 100/54 93/54 O2 Sat by Pulse 99 99 98 Oximetry 03/28/19 03/28/19 07:00 08:25 Temperature Pulse Rate 79 79 Pulse Rate [ Anterior Bilateral] Pulse Rate [ From Monitor] Respiratory 12 Rate Respiratory Rate [Anterior Bilateral] Blood Pressure 96/55 79/41 O2 Sat by Pulse 97 97 Oximetry - General physical appearance Narrative Exam: Gen: Arousable on vent. ENT: ETT and NGT in place. CV: s1, S2+ Resp: on vent Ext: no c/c/e - Labs 03/28/19 04:53 03/28/19 04:53 Diabetes panel 03/28/19 Range/Units 04:53 Sodium 149 H (137-145) mmol/L Potassium 4.3 (3.6-5.0) mmol/L Chloride 114.6 H (98-107) mmol/L Carbon Dioxide 25 (22-30) mmol/L BUN 17 (7-17) mg/dL Creatinine 0.5 L (0.7-1.2) mg/dL Glucose 86 (65-100) mg/dL Calcium 8.6 (8.4-10.2) mg/dL Calcium panel 03/28/19 Range/Units 04:53 Calcium 8.6 (8.4-10.2) mg/dL Pituitary panel 03/28/19 Range/Units 04:53 Sodium 149 H (137-145) mmol/L Potassium 4.3 (3.6-5.0) mmol/L Chloride 114.6 H (98-107) mmol/L Carbon Dioxide 25 (22-30) mmol/L BUN 17 (7-17) mg/dL Creatinine 0.5 L (0.7-1.2) mg/dL Glucose 86 (65-100) mg/dL Calcium 8.6 (8.4-10.2) mg/dL Adrenal panel 03/28/19 Range/Units 04:53 Sodium 149 H (137-145) mmol/L Potassium 4.3 (3.6-5.0) mmol/L Chloride 114.6 H (98-107) mmol/L Carbon Dioxide 25 (22-30) mmol/L BUN 17 (7-17) mg/dL Creatinine 0.5 L (0.7-1.2) mg/dL Glucose 86 (65-100) mg/dL Calcium 8.6 (8.4-10.2) mg/dL
[2019-03-28] MEDS ORDERED: SODIUM BICARBONATE 325 MG TAB FEEDTUBE PRN (11:32)
[2019-03-28] MEDS ORDERED: LIPASE 10,500/PROTEASE 25,000/AMYLASE 43,750 (UNITS) DR CAP FEEDTUBE PRN (11:32)
[2019-03-28] MEDS ORDERED: SIMPLE SYRUP 15 ML FEEDTUBE PRN ×2 (11:32)
--- NOTE | 2019-03-28 12:21 | Anesthesia Consultation ---
Anesthesia Consult and Med Hx Date of service: 03/28/19 - Airway Anesthetic Teeth Evaluation: Poor ROM Head & Neck: Adequate Mental/Hyoid Distance: Adequate Mallampati Class: Class III Intubation Access Assessment: Possibly Difficult - Pre-Operative Health Status ASA Pre-Surgery Classification: ASA4 Proposed Anesthetic Plan: General - Pulmonary Hx Smoking: Yes Hx Asthma: Yes Hx Respiratory Symptoms: Yes (acute respiratory failure, intubated, on the ve ntilator) COPD: Yes Hx Pneumonia: No - Cardiovascular System Hx Hypertension: Yes Hx Pacemaker: No Hx Internal Defibrillator: No - Central Nervous System Hx Seizures: Yes CVA: No Hx Psychiatric Problems: No - Endocrine Hx Renal Disease: Yes Hx End Stage Renal Disease: No Hx Liver Disease: Yes (liver failure, Hep. C, alcoholism) Hx Non-Insulin Dependent Diabetes: Yes - Other Systems Hx Alcohol Use: Yes (chronic alcoholism) Hx Cancer: No Hx Obesity: Yes (BMI 42.2)
[2019-03-29] MEDS: INSULIN LISPRO 100 UNIT/ML SUB-Q SCH ×4 (01:30→18:21)
[2019-03-29] MEDS: IPRATROPIUM/ALBUTEROL SULFATE 3 ML AMPUL.NEB IH SCH ×4 (02:04→20:54)
[2019-03-29 05:40] LABS: Hematocrit 26.4 % (30.3-42.9); Hemoglobin 8.5 gm/dl (10.1-14.3); Mean Corpuscular HGB Conc 32 % (30-34); Mean Corpuscular Volume 101 fl (79-97); Platelet Count 219 K/mm3 (140-440)
[2019-03-29 05:42] LABS: Red Cell Distribution Width 25.4 % (13.2-15.2)
[2019-03-29] MEDS: DEXTROSE 50% IN WATER (25GM) 50 ML SYRINGE IV PRN (05:51)
[2019-03-29 06:05] LABS: BUN/Creatinine Ratio 28; Blood Urea Nitrogen 17 mg/dL (7-17); Calcium 8.7 mg/dL (8.4-10.2); Hemolysis Index 7
--- NOTE | 2019-03-29 07:06 | Hem/Onc Progress Note ---
Assessment and Plan 1. h/o Leukopenia and the patient has a history of liver disease and alcohol usage. These may have a role. Thrombocytopenia may have a similar reason. Deficiency investigations. In January, B12 was 1400, folate 13. 2. Encephalopathy, being treated for sepsis. 3. History of electrolyte imbalance. 4. History of hypertension. 5. History of chronic obstructive pulmonary disease. 6. AST, ALT abnormality. 7. The patient was placed on reverse isolation. I will follow the patient during inpatient stay. ANEMIA - FOLLOW b12 - folate normal - will follow h/o plt low - may be sec to infection/meds/antibiotics - pt was on vanco - zosyn - daptomycin ID following pt b12- folate - iron ferritin WNL platelets better lovenox for DVT prevention WBC fluctuating - will follow trach - PEG postponed to 03/30 - Patient Problems (1) Leukopenia Current Visit: Yes Status: Acute Qualifiers: Leukopenia type: unspecified Qualified Code(s): D72.819 - Decreased white blood cell count, unspecified Subjective Date of service: 03/29/19 Principal diagnosis: anemia - Low wbc Interval history: still on vent - trach - peg eval Objective - Exam Narrative Exam: Pain - on vent General appearance - intubated Performance status - complete dependence Eyes - no icterus, ENT - no bleeding LNs cervical not palpable Neck - no LN Respiratory Normal Breath sounds - CTA anteriorly CVS S1 S2 + Extremities edema+ General GI Soft Rectal deferred female - deferred Skin warm Musculoskeletal on vent Neurologically intubated - Constitutional Vitals: Last Vital Signs Temp 97.6 F 03/29/19 03:39 Pulse 71 03/29/19 06:00 Resp 12 03/29/19 06:00 BP 137/89 03/29/19 06:00 Pulse Ox 99 03/29/19 06:00 - Labs Lab Results: Laboratory Results - last 24 hr 03/28/19 03/28/19 03/28/19 12:51 19:20 23:59 WBC RBC Hgb Hct MCV MCH MCHC RDW Plt Count Sodium Potassium Chloride Carbon Dioxide Anion Gap BUN Creatinine Estimated GFR BUN/Creatinine Ratio Glucose POC Glucose 89 109 H 108 H Calcium 03/29/19 03/29/19 03/29/19 05:00 05:00 05:33 WBC 4.0 L RBC 2.60 L Hgb 8.5 L Hct 26.4 L MCV 101 H MCH 33 H MCHC 32 RDW 25.4 H Plt Count 219 Sodium 148 H Potassium 4.4 Chloride 111.8 H Carbon Dioxide 27 Anion Gap 14 BUN 17 Creatinine 0.6 L Estimated GFR > 60 BUN/Creatinine Ratio 28 Glucose 77 POC Glucose 79 Calcium 8.7 Medications & Allergies - Medications Allergies/Adverse Reactions: Allergies No Known Allergies Allergy (Verified 01/06/17 23:38) Per son Home Medications: Home Medications Medication Instructions Recorded Confirmed Last Taken Type Folic Acid [Folvite] 1 mg PO QDAY #30 tablet 08/12/18 03/10/19 03/09/19 Rx Haloperidol [Haldol] 0.5 mg PO Q6H PRN #30 tablet 08/12/18 03/10/19 03/10/19 Rx Lactulose [Cephulac] 20 gm PO Q12H #1 bottle 08/12/18 03/10/19 03/09/19 Rx Rifaximin [Xifaxan] 550 mg PO BID #60 tablet 08/12/18 03/10/19 03/09/19 Rx Thiamine [Vitamin B-1] 100 mg PO QDAY #30 tablet 08/12/18 03/10/19 03/09/19 Rx amLODIPine 5 mg PO QDAY #30 tablet 08/12/18 03/10/19 03/09/19 Rx chlordiazePOXIDE [Librium] 25 mg PO DAILY #3 capsule 08/12/18 03/10/19 03/09/19 Rx ALBUTEROL NEB's [Proventil] 2.5 mg IH TID PRN 02/06/19 03/10/19 03/09/19 History Acetaminophen [Tylenol] 650 mg PO Q6HR PRN 02/06/19 03/10/19 03/09/19 History Fluticasone [Flonase] 1 spray NS QDAY 02/06/19 03/10/19 03/09/19 History Ipratropium/Albuterol Sulfate 1 spray IH QID 02/06/19 03/10/19 03/09/19 History [Combivent Respimat] Melatonin [Melatonin 10MG CAP] 10 mg PO QHS 02/06/19 03/10/19 03/09/19 History Active Medications: Generic Name Dose Route Start Last Admin Trade Name Freq PRN Reason Stop Dose Admin Acetaminophen 650 mg 03/10/19 17:46 Tylenol PO Q4H PRN Pain MILD(1-3)/Fever >100.5/GUERRERO Albuterol 2.5 mg 03/11/19 03:52 Proventil IH TID PRN Wheezing Albuterol/Ipratropium 1 ampul 03/11/19 08:00 03/29/19 02:04 Duoneb *Not For Prn Use* IH 1 ampul Q6HRT [facility] Administration Lipase/Protease/Amylase 1 each 03/14/19 13:25 Pancreaze 10,500 Unit FEEDTUBE PRN PRN For Clogged Feeding Tube Dextrose 50 ml 03/10/19 22:27 03/29/19 05:51 D50w (25gm) Syringe IV 50 ml Q30MIN PRN Administration Hypoglycemia Enoxaparin Sodium 40 mg 03/25/19 10:00 03/28/19 09:46 Enoxaparin SUB-Q 40 mg QDAY@1000 [facility] Administration Famotidine 20 mg 03/22/19 10:00 03/28/19 21:06 Pepcid PO 20 mg BID [facility] Administration Fluticasone Propionate 50 mcg 03/11/19 10:00 03/28/19 09:47 Flonase NS Not Given QDAY [facility] Folic Acid 1 mg 03/11/19 10:00 03/28/19 09:46 Folvite PO 1 mg QDAY [facility] Administration Haloperidol 0.5 mg 03/11/19 03:52 03/12/19 09:32 Haldol PO 0.5 mg Q6H PRN Administration Agitation Hydrophilic Ointment 1 applic 03/14/19 06:51 Vaseline Lip Therapy TP Q2HR PRN Dry Lips Sodium Chloride 500 mls @ 15 mls/hr 03/17/19 20:00 Nacl 0.9% 500 Ml IV PRN [facility] Insulin Human Lispro 0 unit 03/11/19 00:00 03/29/19 05:51 Humalog SUB-Q Not Given Q6HR [facility] Protocol Morphine Sulfate 2 mg 03/10/19 17:56 03/28/19 03:41 Morphine IV 2 mg Q4H PRN Administration Pain, Moderate (4-6) Multi-Ingred Cream/Lotion/Oil/Oint 1 applic 03/14/19 06:51 03/20/19 10:22 Artificial Tears Ophth Oint OU 0.35 applic Q4HR PRN Administration Dry Eye(s) Ondansetron HCl 4 mg 03/10/19 17:46 03/11/19 05:04 Zofran IV 4 mg Q8H PRN Administration Nausea And Vomiting Rifaximin 550 mg 03/11/19 10:00 03/28/19 21:06 Xifaxan PO 550 mg BID CONNIE Administration Scopolamine 1 each 03/20/19 15:00 03/26/19 17:25 Transderm-Scop TD 1 each Q3D CONNIE Administration Simple Syrup 15 ml 03/14/19 13:25 Simple Syrup FEEDTUBE PRN PRN Hypoglycemia Simple Syrup 30 ml 03/14/19 13:25 Simple Syrup FEEDTUBE PRN PRN Hypoglycemia Sodium Bicarbonate 325 mg 03/14/19 13:25 Sodium Bicarbonate FEEDTUBE PRN PRN For Clogged Feeding Tube Sodium Chloride 10 ml 03/10/19 22:00 03/28/19 21:06 Sodium Chloride Flush Syringe 10 Ml IV 10 ml BID CONNIE Administration Sodium Chloride 10 ml 03/10/19 17:46 03/13/19 22:50 Sodium Chloride Flush Syringe 10 Ml IV 10 ml PRN PRN Administration LINE FLUSH Thiamine HCl 100 mg 03/11/19 10:00 03/28/19 09:46 Vitamin B-1 PO 100 mg QDAY CONNIE Administration
--- NOTE | 2019-03-29 09:17 | Progress Note ---
Assessment and Plan Severe sepsis with septic shock - resolved Cardiac arrest-asystole with ROSC Acute hypoxic respiratory failure on MVS Lactic acidosis- multifactorial ( resolved) Acute toxic- metabolic encephalopathy( improving) Aspiration pneumonia VRE UTI Hypernatremia Thrombocytopenia h/o Cirrhosis h/o Alcohol abuse disorder KERRI Hyperkalemia Patient remains on mechanical ventilator support via ETT. Daily PSV trials Continue to monitor off antibiotics Awaiting scheduling of trach and PEG by Surgical service- per surgeon plan for tomorrow. Sons are here to sign the consent Continue free water flushes for hypernatremia Oral secretions are improving, continue with secretion management Avoid delirium, maintenance of sleep-wake cycle Continue with mobility and off loading to avoid pressure ulcer Discussed with ICU team during IDT rounds -VAP bundle addressed -Aspiration precautions, HOB>40 degrees - Lung protective strategies -Wean FIO2 for O2 sats>90% -CXR, ABG prn -CBC, BMP in am -Avoid nephrotoxins and adjust all medications fro GFR and CrCL -Continue tube feedings -Agitation management, Pain management -Continue contact isolation - Continue VTE prophylaxis - Continue stress ulcer prophylaxis - Accuchecks with glycemic control for SSI (Target blood glucose of 140-180 mg/ dL; avoid hypoglycemia) - Continue to monitor hemodynamics closely -Monitor electrolyte profile closely and replete as indicated CONDITION: CRITICAL PROGNOSIS: GUARDED CODE STATUS: FULL CODE The high probability of a clinically significant, sudden or life-threatening deterioration of the [respiratory, cardiovascular, hematology] system(s) required my full and direct attention, intervention and personal management. The aggregate critical care time was [30] minutes without overlap. Time includes spent on; [x] Data Review and interpretation [x] Patient assessment and monitoring of vital signs [x] Documentation [x] Medication orders and management Subjective Date of service: 03/29/19 Principal diagnosis: Anemia - Low WBC Interval history: Follow up for severe sepsis with septic shock; acute hypoxemic respiratory failure on MVS; s/p cardiac arrest with ROSC; VRE UTI; aspiration pneumonia; Patient seen and examined. Vitals, labs, medications, chart and imaging reviewed. No fevers, no vomiting; weaning supplemental oxygen, More awake, was hypothermic overnight. Remains critically ill on full ventilatory support, not tolerating weaning; for trachesotomy and PEG placement; No acute overnight events reported Objective Vital Signs - 12hr 03/28/19 03/28/19 03/28/19 22:00 23:00 23:33 Temperature 98.4 F Pulse Rate 77 79 Pulse Rate [ Anterior Throughout] Pulse Rate [ From Monitor] Respiratory 15 14 Rate Respiratory Rate [Anterior Throughout] Blood Pressure 139/80 146/79 O2 Sat by Pulse 100 99 Oximetry 03/29/19 03/29/19 03/29/19 00:00 00:05 00:12 Temperature 98.4 F Pulse Rate 75 77 71 Pulse Rate [ Anterior Throughout] Pulse Rate [ 79 From Monitor] Respiratory 15 20 Rate Respiratory Rate [Anterior Throughout] Blood Pressure 124/78 124/78 146/79 O2 Sat by Pulse 100 100 100 Oximetry 03/29/19 03/29/19 03/29/19 01:00 02:00 02:02 Temperature Pulse Rate 77 77 Pulse Rate [ 86 Anterior Throughout] Pulse Rate [ From Monitor] Respiratory 15 14 Rate Respiratory 16 Rate [Anterior Throughout] Blood Pressure 117/69 143/84 O2 Sat by Pulse 99 95 Oximetry 03/29/19 03/29/19 03/29/19 03:00 03:39 04:00 Temperature 97.6 F Pulse Rate 72 80 Pulse Rate [ Anterior Throughout] Pulse Rate [ 80 From Monitor] Respiratory 12 12 Rate Respiratory Rate [Anterior Throughout] Blood Pressure 142/80 141/70 O2 Sat by Pulse 100 100 Oximetry 03/29/19 03/29/19 03/29/19 04:44 05:00 06:00 Temperature Pulse Rate 80 77 71 Pulse Rate [ Anterior Throughout] Pulse Rate [ From Monitor] Respiratory 20 12 Rate Respiratory Rate [Anterior Throughout] Blood Pressure 141/70 144/87 137/89 O2 Sat by Pulse 100 100 99 Oximetry 03/29/19 03/29/19 03/29/19 07:00 08:00 08:24 Temperature 98.1 F Pulse Rate 73 72 82 Pulse Rate [ Anterior Throughout] Pulse Rate [ From Monitor] Respiratory 13 13 20 Rate Respiratory Rate [Anterior Throughout] Blood Pressure 143/86 158/85 158/85 O2 Sat by Pulse 100 100 99 Oximetry 03/29/19 08:40 Temperature Pulse Rate Pulse Rate [ 78 Anterior Throughout] Pulse Rate [ From Monitor] Respiratory Rate Respiratory 21 Rate [Anterior Throughout] Blood Pressure O2 Sat by Pulse Oximetry Constitutional: no acute distress, alert, other (elderly looking obese AAF with mild respiratory distress on MVS ) Eyes: non-icteric ENT: oropharynx moist, other (ETT 23 cm JA) Neck: supple, no lymphadenopathy, no JVD, other (large neck circumference) Effort: normal Ascultation: Bilateral: diminished breath sounds, rales (scant in bases), rhonchi Percussion: Bilateral: not dull Cardiovascular: regular rate and rhythm, other (S1, S2, no murmurs, gallops or rubs) Gastrointestinal: normoactive bowel sounds, soft, non-tender, non-distended, other (No HSM) Integumentary: normal Extremities: no cyanosis, no edema, pulses normal, no ischemia or petechiae Neurologic: non-focal exam, pupils equal and round Psychiatric: mood appropriate, affect normal CBC and BMP: 03/29/19 05:00 03/29/19 05:00 ABG, PT/INR, D-dimer: ABG POC ABG pH 7.500 (7.35-7.45) H 03/23/19 04:37 ABG pH 7.379 pH Units (7.350-7.450) 03/24/19 04:36 POC ABG pCO2 39.6 (35-45) 03/23/19 04:37 ABG pCO2 43.0 mm Hg 03/24/19 04:36 POC ABG pO2 60 (80-105) L 03/23/19 04:37 ABG pO2 104.6 mm Hg (80.0-90.0) H 03/24/19 04:36 POC ABG HCO3 30.8 (22-26 mml/L) 03/23/19 04:37 POC ABG Total CO2 32 (23-27mmol/L) 03/23/19 04:37 POC ABG O2 Sat 93 03/23/19 04:37 ABG O2 Saturation 97.7 % (95.0-99.0) 03/24/19 04:36 Abnormal lab findings: Abnormal Labs 03/10/19 03/10/19 03/10/19 13:16 13:16 14:38 WBC 0.8 L* RBC 3.35 L Hgb Hct MCV MCH RDW 22.1 H Plt Count 78 L Lymph % (Auto) Lymph # Seg Neutrophils % Seg Neuts % (Manual) Lymphocytes % (Manual) 49.0 H Monocytes % (Manual) Eosinophils % (Manual) Nucleated RBC % Seg Neutrophils # Man 0.3 L Lymphocytes # (Manual) 0.4 L POC ABG pH ABG pH POC ABG pCO2 POC ABG pO2 ABG pO2 ABG HCO3 ABG Base Excess ABG Hemoglobin Oxyhemoglobin Sodium 147 H Potassium 5.4 H Chloride 111.8 H Carbon Dioxide BUN Creatinine 0.6 L Glucose POC Glucose Lactic Acid Calcium TIBC Ferritin AST 128 H ALT 79 H Alkaline Phosphatase 174 H Total Creatine Kinase CK-MB (CK-2) CK-MB (CK-2) Rel Index Troponin T Total Protein Albumin 2.4 L Urine WBC (Auto) 9.0 H Vancomycin Trough 03/10/19 03/10/19 03/11/19 21:22 23:36 07:29 WBC RBC Hgb Hct MCV MCH RDW Plt Count Lymph % (Auto) Lymph # Seg Neutrophils % Seg Neuts % (Manual) Lymphocytes % (Manual) Monocytes % (Manual) Eosinophils % (Manual) Nucleated RBC % Seg Neutrophils # Man Lymphocytes # (Manual) POC ABG pH ABG pH POC ABG pCO2 POC ABG pO2 ABG pO2 ABG HCO3 ABG Base Excess ABG Hemoglobin Oxyhemoglobin Sodium 148 H Potassium 5.6 H Chloride 122.3 H Carbon Dioxide 20 L BUN Creatinine 0.6 L Glucose POC Glucose 65 L 112 H Lactic Acid Calcium TIBC Ferritin AST 102 H ALT 65 H Alkaline Phosphatase 134 H Total Creatine Kinase CK-MB (CK-2) CK-MB (CK-2) Rel Index Troponin T Total Protein 6.1 L Albumin 1.8 L Urine WBC (Auto) Vancomycin Trough 03/11/19 03/11/19 03/11/19 11:25 15:28 18:00 WBC 1.2 L* RBC Hgb Hct MCV MCH RDW 22.1 H Plt Count 53 L Lymph % (Auto) Lymph # Seg Neutrophils % Seg Neuts % (Manual) 78.6 H Lymphocytes % (Manual) 9.5 L Monocytes % (Manual) 9.5 H Eosinophils % (Manual) Nucleated RBC % Seg Neutrophils # Man 0.9 L Lymphocytes # (Manual) 0.1 L POC ABG pH ABG pH POC ABG pCO2 POC ABG pO2 ABG pO2 ABG HCO3 ABG Base Excess ABG Hemoglobin Oxyhemoglobin Sodium Potassium Chloride Carbon Dioxide BUN Creatinine Glucose POC Glucose 117 H 118 H Lactic Acid Calcium TIBC Ferritin AST ALT Alkaline Phosphatase Total Creatine Kinase CK-MB (CK-2) CK-MB (CK-2) Rel Index Troponin T Total Protein Albumin Urine WBC (Auto) Vancomycin Trough 03/12/19 03/12/19 03/12/19 00:19 05:45 08:55 WBC 2.4 L RBC 3.33 L Hgb Hct MCV MCH RDW 22.8 H Plt Count 58 L Lymph % (Auto) Lymph # Seg Neutrophils % Seg Neuts % (Manual) 93.0 H Lymphocytes % (Manual) 4.0 L Monocytes % (Manual) Eosinophils % (Manual) Nucleated RBC % 7.0 H Seg Neutrophils # Man Lymphocytes # (Manual) 0.1 L POC ABG pH ABG pH POC ABG pCO2 POC ABG pO2 ABG pO2 ABG HCO3 ABG Base Excess ABG Hemoglobin Oxyhemoglobin Sodium Potassium Chloride Carbon Dioxide BUN Creatinine Glucose POC Glucose 124 H 116 H Lactic Acid Calcium TIBC Ferritin AST ALT Alkaline Phosphatase Total Creatine Kinase CK-MB (CK-2) CK-MB (CK-2) Rel Index Troponin T Total Protein Albumin Urine WBC (Auto) Vancomycin Trough 03/12/19 03/13/19 03/13/19 08:55 00:18 03:48 WBC 2.7 L RBC 3.06 L Hgb 9.4 L Hct 29.4 L MCV MCH RDW 23.1 H Plt Count 62 L Lymph % (Auto) Lymph # Seg Neutrophils % Seg Neuts % (Manual) 76.0 H Lymphocytes % (Manual) Monocytes % (Manual) Eosinophils % (Manual) Nucleated RBC % 11.0 H Seg Neutrophils # Man Lymphocytes # (Manual) 0.5 L POC ABG pH ABG pH POC ABG pCO2 POC ABG pO2 ABG pO2 ABG HCO3 ABG Base Excess ABG Hemoglobin Oxyhemoglobin Sodium Potassium 5.6 H Chloride 114.2 H Carbon Dioxide 21 L BUN Creatinine Glucose POC Glucose 119 H Lactic Acid Calcium TIBC Ferritin AST ALT Alkaline Phosphatase Total Creatine Kinase CK-MB (CK-2) CK-MB (CK-2) Rel Index Troponin T Total Protein Albumin Urine WBC (Auto) Vancomycin Trough 03/13/19 03/13/19 03/13/19 03:48 05:52 05:58 WBC RBC Hgb Hct MCV MCH RDW Plt Count Lymph % (Auto) Lymph # Seg Neutrophils % Seg Neuts % (Manual) Lymphocytes % (Manual) Monocytes % (Manual) Eosinophils % (Manual) Nucleated RBC % Seg Neutrophils # Man Lymphocytes # (Manual) POC ABG pH ABG pH POC ABG pCO2 POC ABG pO2 ABG pO2 ABG HCO3 ABG Base Excess ABG Hemoglobin Oxyhemoglobin Sodium Potassium Chloride 112.7 H Carbon Dioxide 21 L BUN Creatinine Glucose 103 H POC Glucose 114 H Lactic Acid Calcium TIBC Ferritin AST ALT Alkaline Phosphatase Total Creatine Kinase CK-MB (CK-2) CK-MB (CK-2) Rel Index Troponin T Total Protein Albumin Urine WBC (Auto) Vancomycin Trough 39.7 H 03/13/19 03/13/19 03/14/19 12:12 18:00 00:17 WBC RBC Hgb Hct MCV MCH RDW Plt Count Lymph % (Auto) Lymph # Seg Neutrophils % Seg Neuts % (Manual) Lymphocytes % (Manual) Monocytes % (Manual) Eosinophils % (Manual) Nucleated RBC % Seg Neutrophils # Man Lymphocytes # (Manual) POC ABG pH ABG pH POC ABG pCO2 POC ABG pO2 ABG pO2 ABG HCO3 ABG Base Excess ABG Hemoglobin Oxyhemoglobin Sodium Potassium Chloride Carbon Dioxide BUN Creatinine Glucose POC Glucose 116 H 132 H 130 H Lactic Acid Calcium TIBC Ferritin AST ALT Alkaline Phosphatase Total Creatine Kinase CK-MB (CK-2) CK-MB (CK-2) Rel Index Troponin T Total Protein Albumin Urine WBC (Auto) Vancomycin Trough 03/14/19 03/14/19 03/14/19 05:24 06:44 06:44 WBC 2.6 L RBC 3.00 L Hgb 9.2 L Hct 28.3 L MCV MCH RDW 22.5 H Plt Count 44 L Lymph % (Auto) Lymph # Seg Neutrophils % Seg Neuts % (Manual) 75.0 H Lymphocytes % (Manual) Monocytes % (Manual) Eosinophils % (Manual) 5.0 H Nucleated RBC % 19.0 H Seg Neutrophils # Man Lymphocytes # (Manual) 0.4 L POC ABG pH ABG pH POC ABG pCO2 POC ABG pO2 ABG pO2 ABG HCO3 ABG Base Excess ABG Hemoglobin Oxyhemoglobin Sodium Potassium Chloride 110.2 H Carbon Dioxide 21 L BUN Creatinine 1.3 H Glucose POC Glucose 110 H Lactic Acid Calcium TIBC Ferritin AST 144 H ALT 90 H Alkaline Phosphatase 226 H Total Creatine Kinase CK-MB (CK-2) 8.6 H CK-MB (CK-2) Rel Index 7.1 H Troponin T 0.056 H D Total Protein Albumin 2.2 L Urine WBC (Auto) Vancomycin Trough 03/14/19 03/14/19 03/14/19 09:05 11:54 12:15 WBC RBC Hgb Hct MCV MCH RDW Plt Count Lymph % (Auto) Lymph # Seg Neutrophils % Seg Neuts % (Manual) Lymphocytes % (Manual) Monocytes % (Manual) Eosinophils % (Manual) Nucleated RBC % Seg Neutrophils # Man Lymphocytes # (Manual) POC ABG pH 7.283 L 7.458 H ABG pH POC ABG pCO2 54.9 H 32.7 L POC ABG pO2 76 L ABG pO2 ABG HCO3 ABG Base Excess ABG Hemoglobin Oxyhemoglobin Sodium Potassium Chloride Carbon Dioxide BUN Creatinine Glucose POC Glucose Lactic Acid 2.10 H* Calcium TIBC Ferritin AST ALT Alkaline Phosphatase Total Creatine Kinase CK-MB (CK-2) CK-MB (CK-2) Rel Index Troponin T Total Protein Albumin Urine WBC (Auto) Vancomycin Trough 03/14/19 03/14/19 03/14/19 12:43 13:35 15:35 WBC RBC Hgb Hct MCV MCH RDW Plt Count Lymph % (Auto) Lymph # Seg Neutrophils % Seg Neuts % (Manual) Lymphocytes % (Manual) Monocytes % (Manual) Eosinophils % (Manual) Nucleated RBC % Seg Neutrophils # Man Lymphocytes # (Manual) POC ABG pH ABG pH POC ABG pCO2 POC ABG pO2 ABG pO2 ABG HCO3 ABG Base Excess ABG Hemoglobin Oxyhemoglobin Sodium Potassium Chloride Carbon Dioxide BUN Creatinine Glucose POC Glucose 68 L Lactic Acid 2.10 H* 3.50 H* Calcium TIBC Ferritin AST ALT Alkaline Phosphatase Total Creatine Kinase CK-MB (CK-2) CK-MB (CK-2) Rel Index Troponin T Total Protein Albumin Urine WBC (Auto) Vancomycin Trough 03/14/19 03/14/19 03/14/19 17:34 17:46 17:55 WBC RBC Hgb Hct MCV MCH RDW Plt Count Lymph % (Auto) Lymph # Seg Neutrophils % Seg Neuts % (Manual) Lymphocytes % (Manual) Monocytes % (Manual) Eosinophils % (Manual) Nucleated RBC % Seg Neutrophils # Man Lymphocytes # (Manual) POC ABG pH 7.241 L 7.244 L ABG pH POC ABG pCO2 50.4 H 50.1 H POC ABG pO2 156 H ABG pO2 ABG HCO3 ABG Base Excess ABG Hemoglobin Oxyhemoglobin Sodium Potassium Chloride Carbon Dioxide BUN Creatinine Glucose POC Glucose 49 L Lactic Acid Calcium TIBC Ferritin AST ALT Alkaline Phosphatase Total Creatine Kinase CK-MB (CK-2) CK-MB (CK-2) Rel Index Troponin T Total Protein Albumin Urine WBC (Auto) Vancomycin Trough 03/14/19 03/14/19 03/14/19 18:29 18:32 20:27 WBC RBC Hgb Hct MCV MCH RDW Plt Count Lymph % (Auto) Lymph # Seg Neutrophils % Seg Neuts % (Manual) Lymphocytes % (Manual) Monocytes % (Manual) Eosinophils % (Manual) Nucleated RBC % Seg Neutrophils # Man Lymphocytes # (Manual) POC ABG pH ABG pH POC ABG pCO2 POC ABG pO2 ABG pO2 ABG HCO3 ABG Base Excess ABG Hemoglobin Oxyhemoglobin Sodium Potassium Chloride 112.6 H Carbon Dioxide 19 L BUN Creatinine 1.4 H Glucose 132 H POC Glucose 57 L 115 H Lactic Acid Calcium TIBC Ferritin AST ALT Alkaline Phosphatase Total Creatine Kinase CK-MB (CK-2) CK-MB (CK-2) Rel Index Troponin T Total Protein Albumin Urine WBC (Auto) Vancomycin Trough 03/14/19 03/14/19 03/15/19 23:47 Unknown 04:00 WBC RBC 2.77 L Hgb 8.5 L Hct 27.3 L MCV 98 H MCH RDW 23.0 H Plt Count 27 L Lymph % (Auto) Lymph # Seg Neutrophils % Seg Neuts % (Manual) 75.0 H Lymphocytes % (Manual) 1.0 L Monocytes % (Manual) Eosinophils % (Manual) Nucleated RBC % 4.0 H Seg Neutrophils # Man Lymphocytes # (Manual) 0.1 L POC ABG pH ABG pH POC ABG pCO2 POC ABG pO2 ABG pO2 ABG HCO3 ABG Base Excess ABG Hemoglobin Oxyhemoglobin Sodium Potassium Chloride Carbon Dioxide BUN Creatinine Glucose POC Glucose 116 H Lactic Acid 3.30 H* Calcium TIBC Ferritin AST ALT Alkaline Phosphatase Total Creatine Kinase CK-MB (CK-2) CK-MB (CK-2) Rel Index Troponin T Total Protein Albumin Urine WBC (Auto) Vancomycin Trough 03/15/19 03/15/19 03/15/19 04:00 06:24 07:35 WBC RBC Hgb Hct MCV MCH RDW Plt Count Lymph % (Auto) Lymph # Seg Neutrophils % Seg Neuts % (Manual) Lymphocytes % (Manual) Monocytes % (Manual) Eosinophils % (Manual) Nucleated RBC % Seg Neutrophils # Man Lymphocytes # (Manual) POC ABG pH 7.282 L ABG pH POC ABG pCO2 50.4 H POC ABG pO2 71 L ABG pO2 ABG HCO3 ABG Base Excess ABG Hemoglobin Oxyhemoglobin Sodium Potassium Chloride 112.1 H Carbon Dioxide 19 L BUN Creatinine 1.5 H Glucose 123 H POC Glucose 140 H Lactic Acid Calcium 8.2 L TIBC Ferritin AST ALT Alkaline Phosphatase Total Creatine Kinase CK-MB (CK-2) CK-MB (CK-2) Rel Index Troponin T Total Protein Albumin Urine WBC (Auto) Vancomycin Trough 03/15/19 03/15/19 03/16/19 11:47 23:25 04:33 WBC RBC Hgb Hct MCV MCH RDW Plt Count Lymph % (Auto) Lymph # Seg Neutrophils % Seg Neuts % (Manual) Lymphocytes % (Manual) Monocytes % (Manual) Eosinophils % (Manual) Nucleated RBC % Seg Neutrophils # Man Lymphocytes # (Manual) POC ABG pH ABG pH 7.304 L POC ABG pCO2 POC ABG pO2 ABG pO2 174.4 H ABG HCO3 19.2 L ABG Base Excess -6.6 L ABG Hemoglobin 8.5 L Oxyhemoglobin Sodium Potassium Chloride Carbon Dioxide BUN Creatinine Glucose POC Glucose 161 H 139 H Lactic Acid Calcium TIBC Ferritin AST ALT Alkaline Phosphatase Total Creatine Kinase CK-MB (CK-2) CK-MB (CK-2) Rel Index Troponin T Total Protein Albumin Urine WBC (Auto) Vancomycin Trough 03/16/19 03/16/19 03/16/19 05:19 05:19 05:19 WBC RBC 2.92 L Hgb 8.9 L Hct 28.0 L MCV MCH RDW 22.8 H Plt Count 42 L Lymph % (Auto) Lymph # Seg Neutrophils % Seg Neuts % (Manual) 84.0 H Lymphocytes % (Manual) 5.0 L Monocytes % (Manual) Eosinophils % (Manual) Nucleated RBC % Seg Neutrophils # Man 7.8 H Lymphocytes # (Manual) 0.5 L POC ABG pH ABG pH POC ABG pCO2 POC ABG pO2 ABG pO2 ABG HCO3 ABG Base Excess ABG Hemoglobin Oxyhemoglobin Sodium Potassium 5.2 H Chloride 114.0 H Carbon Dioxide 18 L BUN 22 H Creatinine 1.7 H Glucose 109 H POC Glucose Lactic Acid Calcium 8.0 L TIBC Ferritin AST ALT Alkaline Phosphatase Total Creatine Kinase 194 H CK-MB (CK-2) CK-MB (CK-2) Rel Index Troponin T Total Protein Albumin Urine WBC (Auto) Vancomycin Trough 03/16/19 03/16/19 03/16/19 05:51 12:19 17:42 WBC RBC Hgb Hct MCV MCH RDW Plt Count Lymph % (Auto) Lymph # Seg Neutrophils % Seg Neuts % (Manual) Lymphocytes % (Manual) Monocytes % (Manual) Eosinophils % (Manual) Nucleated RBC % Seg Neutrophils # Man Lymphocytes # (Manual) POC ABG pH ABG pH POC ABG pCO2 POC ABG pO2 ABG pO2 ABG HCO3 ABG Base Excess ABG Hemoglobin Oxyhemoglobin Sodium Potassium Chloride Carbon Dioxide BUN Creatinine Glucose POC Glucose 123 H 134 H 130 H Lactic Acid Calcium TIBC Ferritin AST ALT Alkaline Phosphatase Total Creatine Kinase CK-MB (CK-2) CK-MB (CK-2) Rel Index Troponin T Total Protein Albumin Urine WBC (Auto) Vancomycin Trough 03/17/19 03/17/19 03/17/19 00:46 04:45 04:45 WBC RBC 2.42 L Hgb 7.5 L Hct 23.4 L MCV MCH RDW 22.2 H Plt Count 37 L Lymph % (Auto) 6.2 L Lymph # 0.5 L Seg Neutrophils % 84.0 H Seg Neuts % (Manual) Lymphocytes % (Manual) Monocytes % (Manual) Eosinophils % (Manual) Nucleated RBC % Seg Neutrophils # Man Lymphocytes # (Manual) POC ABG pH ABG pH POC ABG pCO2 POC ABG pO2 ABG pO2 ABG HCO3 ABG Base Excess ABG Hemoglobin Oxyhemoglobin Sodium Potassium Chloride 115.4 H Carbon Dioxide 16 L BUN 27 H Creatinine 1.8 H Glucose 109 H POC Glucose 115 H Lactic Acid Calcium 7.9 L TIBC Ferritin AST ALT Alkaline Phosphatase Total Creatine Kinase CK-MB (CK-2) CK-MB (CK-2) Rel Index Troponin T Total Protein Albumin Urine WBC (Auto) Vancomycin Trough 03/17/19 03/17/19 03/17/19 05:00 06:05 11:15 WBC RBC Hgb Hct MCV MCH RDW Plt Count Lymph % (Auto) Lymph # Seg Neutrophils % Seg Neuts % (Manual) Lymphocytes % (Manual) Monocytes % (Manual) Eosinophils % (Manual) Nucleated RBC % Seg Neutrophils # Man Lymphocytes # (Manual) POC ABG pH ABG pH 7.238 L POC ABG pCO2 POC ABG pO2 ABG pO2 114.7 H ABG HCO3 17.9 L ABG Base Excess -8.8 L ABG Hemoglobin 7.3 L Oxyhemoglobin Sodium Potassium Chloride Carbon Dioxide BUN Creatinine Glucose POC Glucose 124 H Lactic Acid Calcium TIBC 127 L Ferritin AST ALT Alkaline Phosphatase Total Creatine Kinase CK-MB (CK-2) CK-MB (CK-2) Rel Index Troponin T Total Protein Albumin Urine WBC (Auto) Vancomycin Trough 03/17/19 03/17/19 03/17/19 11:15 12:06 18:27 WBC RBC Hgb Hct MCV MCH RDW Plt Count Lymph % (Auto) Lymph # Seg Neutrophils % Seg Neuts % (Manual) Lymphocytes % (Manual) Monocytes % (Manual) Eosinophils % (Manual) Nucleated RBC % Seg Neutrophils # Man Lymphocytes # (Manual) POC ABG pH ABG pH POC ABG pCO2 POC ABG pO2 ABG pO2 ABG HCO3 ABG Base Excess ABG Hemoglobin Oxyhemoglobin Sodium Potassium Chloride Carbon Dioxide BUN Creatinine Glucose POC Glucose 133 H 158 H Lactic Acid Calcium TIBC Ferritin 512.4 H AST ALT Alkaline Phosphatase Total Creatine Kinase CK-MB (CK-2) CK-MB (CK-2) Rel Index Troponin T Total Protein Albumin Urine WBC (Auto) Vancomycin Trough 03/17/19 03/18/19 03/18/19 23:30 04:00 05:45 WBC RBC 2.31 L Hgb 7.0 L Hct 22.0 L MCV MCH RDW 22.2 H Plt Count 45 L Lymph % (Auto) Lymph # Seg Neutrophils % Seg Neuts % (Manual) 82.0 H Lymphocytes % (Manual) 12.0 L Monocytes % (Manual) Eosinophils % (Manual) 5.0 H Nucleated RBC % 1.0 H Seg Neutrophils # Man Lymphocytes # (Manual) 0.8 L POC ABG pH ABG pH POC ABG pCO2 POC ABG pO2 ABG pO2 113.7 H ABG HCO3 ABG Base Excess -3.0 L ABG Hemoglobin 7.0 L Oxyhemoglobin Sodium Potassium Chloride Carbon Dioxide BUN Creatinine Glucose POC Glucose 143 H Lactic Acid Calcium TIBC Ferritin AST ALT Alkaline Phosphatase Total Creatine Kinase CK-MB (CK-2) CK-MB (CK-2) Rel Index Troponin T Total Protein Albumin Urine WBC (Auto) Vancomycin Trough 03/18/19 03/18/1903/18/19 05:48 05:50 14:01 WBC RBC Hgb Hct MCV MCH RDW Plt Count Lymph % (Auto) Lymph # Seg Neutrophils % Seg Neuts % (Manual) Lymphocytes % (Manual) Monocytes % (Manual) Eosinophils % (Manual) Nucleated RBC % Seg Neutrophils # Man Lymphocytes # (Manual) POC ABG pH 7.299 L ABG pH POC ABG pCO2 48.7 H POC ABG pO2 ABG pO2 ABG HCO3 ABG Base Excess ABG Hemoglobin Oxyhemoglobin Sodium Potassium Chloride 109.9 H Carbon Dioxide BUN 28 H Creatinine 1.5 H Glucose 128 H POC Glucose 118 H Lactic Acid Calcium 7.6 L TIBC Ferritin AST ALT Alkaline Phosphatase Total Creatine Kinase CK-MB (CK-2) CK-MB (CK-2) Rel Index Troponin T Total Protein Albumin Urine WBC (Auto) Vancomycin Trough 03/18/19 03/19/19 03/19/19 23:53 04:43 06:02 WBC RBC Hgb Hct MCV MCH RDW Plt Count Lymph % (Auto) Lymph # Seg Neutrophils % Seg Neuts % (Manual) Lymphocytes % (Manual) Monocytes % (Manual) Eosinophils % (Manual) Nucleated RBC % Seg Neutrophils # Man Lymphocytes # (Manual) POC ABG pH ABG pH 7.332 L POC ABG pCO2 POC ABG pO2 ABG pO2 116.2 H ABG HCO3 ABG Base Excess -3.3 L ABG Hemoglobin 7.3 L Oxyhemoglobin 94.9 L Sodium Potassium Chloride Carbon Dioxide BUN Creatinine Glucose POC Glucose 130 H 122 H Lactic Acid Calcium TIBC Ferritin AST ALT Alkaline Phosphatase Total Creatine Kinase CK-MB (CK-2) CK-MB (CK-2) Rel Index Troponin T Total Protein Albumin Urine WBC (Auto) Vancomycin Trough 03/19/19 03/19/19 03/19/19 12:16 15:33 23:44 WBC RBC Hgb Hct MCV MCH RDW Plt Count Lymph % (Auto) Lymph # Seg Neutrophils % Seg Neuts % (Manual) Lymphocytes % (Manual) Monocytes % (Manual) Eosinophils % (Manual) Nucleated RBC % Seg Neutrophils # Man Lymphocytes # (Manual) POC ABG pH 7.316 L ABG pH POC ABG pCO2 45.7 H POC ABG pO2 ABG pO2 ABG HCO3 ABG Base Excess ABG Hemoglobin Oxyhemoglobin Sodium Potassium Chloride Carbon Dioxide BUN Creatinine Glucose POC Glucose 132 H 106 H Lactic Acid Calcium TIBC Ferritin AST ALT Alkaline Phosphatase Total Creatine Kinase CK-MB (CK-2) CK-MB (CK-2) Rel Index Troponin T Total Protein Albumin Urine WBC (Auto) Vancomycin Trough 03/20/19 03/20/19 03/20/19 01:00 EST 04:27 12:06 WBC RBC Hgb Hct MCV MCH RDW Plt Count Lymph % (Auto) Lymph # Seg Neutrophils % Seg Neuts % (Manual) Lymphocytes % (Manual) Monocytes % (Manual) Eosinophils % (Manual) Nucleated RBC % Seg Neutrophils # Man Lymphocytes # (Manual) POC ABG pH ABG pH POC ABG pCO2 POC ABG pO2 ABG pO2 121.6 H ABG HCO3 ABG Base Excess ABG Hemoglobin 7.1 L Oxyhemoglobin Sodium Potassium 3.4 L Chloride 111.7 H Carbon Dioxide BUN 29 H Creatinine Glucose POC Glucose 134 H Lactic Acid Calcium 8.0 L TIBC Ferritin AST ALT Alkaline Phosphatase Total Creatine Kinase CK-MB (CK-2) CK-MB (CK-2) Rel Index Troponin T Total Protein Albumin Urine WBC (Auto) Vancomycin Trough 03/20/19 03/20/19 03/21/19 18:09 23:36 05:42 WBC RBC Hgb Hct MCV MCH RDW Plt Count Lymph % (Auto) Lymph # Seg Neutrophils % Seg Neuts % (Manual) Lymphocytes % (Manual) Monocytes % (Manual) Eosinophils % (Manual) Nucleated RBC % Seg Neutrophils # Man Lymphocytes # (Manual) POC ABG pH ABG pH POC ABG pCO2 POC ABG pO2 ABG pO2 ABG HCO3 ABG Base Excess ABG Hemoglobin Oxyhemoglobin Sodium Potassium Chloride Carbon Dioxide BUN Creatinine Glucose POC Glucose 133 H 114 H 116 H Lactic Acid Calcium TIBC Ferritin AST ALT Alkaline Phosphatase Total Creatine Kinase CK-MB (CK-2) CK-MB (CK-2) Rel Index Troponin T Total Protein Albumin Urine WBC (Auto) Vancomycin Trough 03/21/19 03/21/19 03/21/19 08:12 14:09 17:51 WBC 3.9 L RBC 2.25 L Hgb 7.1 L Hct 21.6 L MCV MCH RDW 21.6 H Plt Count 105 L Lymph % (Auto) Lymph # Seg Neutrophils % Seg Neuts % (Manual) Lymphocytes % (Manual) 13.0 L Monocytes % (Manual) 13.0 H Eosinophils % (Manual) Nucleated RBC % Seg Neutrophils # Man Lymphocytes # (Manual) 0.5 L POC ABG pH ABG pH POC ABG pCO2 POC ABG pO2 120 H ABG pO2 ABG HCO3 ABG Base Excess ABG Hemoglobin Oxyhemoglobin Sodium Potassium Chloride Carbon Dioxide BUN Creatinine Glucose POC Glucose 145 H Lactic Acid Calcium TIBC Ferritin AST ALT Alkaline Phosphatase Total Creatine Kinase CK-MB (CK-2) CK-MB (CK-2) Rel Index Troponin T Total Protein Albumin Urine WBC (Auto) Vancomycin Trough 03/22/19 03/22/19 03/22/19 05:36 11:10 11:39 WBC RBC Hgb Hct MCV MCH RDW Plt Count Lymph % (Auto) Lymph # Seg Neutrophils % Seg Neuts % (Manual) Lymphocytes % (Manual) Monocytes % (Manual) Eosinophils % (Manual) Nucleated RBC % Seg Neutrophils # Man Lymphocytes # (Manual) POC ABG pH ABG pH POC ABG pCO2 POC ABG pO2 ABG pO2 ABG HCO3 ABG Base Excess ABG Hemoglobin Oxyhemoglobin Sodium 149 H Potassium Chloride 115.6 H Carbon Dioxide BUN 20 H Creatinine Glucose 109 H POC Glucose 106 H 124 H Lactic Acid Calcium TIBC Ferritin AST ALT Alkaline Phosphatase Total Creatine Kinase CK-MB (CK-2) CK-MB (CK-2) Rel Index Troponin T Total Protein Albumin Urine WBC (Auto) Vancomycin Trough 03/22/19 03/22/19 03/22/19 12:04 18:36 Unknown WBC 4.2 L RBC 2.45 L Hgb 7.6 L Hct 23.9 L MCV 98 H MCH RDW 22.2 H Plt Count Lymph % (Auto) Lymph # Seg Neutrophils % Seg Neuts % (Manual) Lymphocytes % (Manual) Monocytes % (Manual) Eosinophils % (Manual) Nucleated RBC % Seg Neutrophils # Man Lymphocytes # (Manual) POC ABG pH 7.285 L ABG pH POC ABG pCO2 55.4 H POC ABG pO2 ABG pO2 ABG HCO3 ABG Base Excess ABG Hemoglobin Oxyhemoglobin Sodium Potassium Chloride Carbon Dioxide BUN Creatinine Glucose POC Glucose 120 H Lactic Acid Calcium TIBC Ferritin AST ALT Alkaline Phosphatase Total Creatine Kinase CK-MB (CK-2) CK-MB (CK-2) Rel Index Troponin T Total Protein Albumin Urine WBC (Auto) Vancomycin Trough 03/23/19 03/23/19 03/23/19 04:37 05:12 05:30 WBC 4.2 L RBC 2.22 L Hgb 7.0 L Hct 21.4 L MCV MCH RDW 21.5 H Plt Count Lymph % (Auto) Lymph # Seg Neutrophils % Seg Neuts % (Manual) Lymphocytes % (Manual) Monocytes % (Manual) Eosinophils % (Manual) Nucleated RBC % Seg Neutrophils # Man Lymphocytes # (Manual) POC ABG pH 7.500 H ABG pH POC ABG pCO2 POC ABG pO2 60 L ABG pO2 ABG HCO3 ABG Base Excess ABG Hemoglobin Oxyhemoglobin Sodium Potassium Chloride Carbon Dioxide BUN Creatinine Glucose POC Glucose 106 H Lactic Acid Calcium TIBC Ferritin AST ALT Alkaline Phosphatase Total Creatine Kinase CK-MB (CK-2) CK-MB (CK-2) Rel Index Troponin T Total Protein Albumin Urine WBC (Auto) Vancomycin Trough 03/23/19 03/23/19 03/23/19 05:30 11:50 18:11 WBC RBC Hgb Hct MCV MCH RDW Plt Count Lymph % (Auto) Lymph # Seg Neutrophils % Seg Neuts % (Manual) Lymphocytes % (Manual) Monocytes % (Manual) Eosinophils % (Manual) Nucleated RBC % Seg Neutrophils # Man Lymphocytes # (Manual) POC ABG pH ABG pH POC ABG pCO2 POC ABG pO2 ABG pO2 ABG HCO3 ABG Base Excess ABG Hemoglobin Oxyhemoglobin Sodium 149 H Potassium Chloride 114.7 H Carbon Dioxide BUN 19 H Creatinine Glucose POC Glucose 118 H 107 H Lactic Acid Calcium 8.3 L TIBC Ferritin AST ALT Alkaline Phosphatase Total Creatine Kinase CK-MB (CK-2) CK-MB (CK-2) Rel Index Troponin T Total Protein Albumin Urine WBC (Auto) Vancomycin Trough 03/23/19 03/24/19 03/24/19 23:23 04:36 04:42 WBC 4.0 L RBC 2.46 L Hgb 7.9 L Hct 24.4 L MCV 99 H MCH RDW 23.5 H Plt Count Lymph % (Auto) Lymph # Seg Neutrophils % Seg Neuts % (Manual) Lymphocytes % (Manual) Monocytes % (Manual) Eosinophils % (Manual) Nucleated RBC % Seg Neutrophils # Man Lymphocytes # (Manual) POC ABG pH ABG pH POC ABG pCO2 POC ABG pO2 ABG pO2 104.6 H ABG HCO3 ABG Base Excess ABG Hemoglobin 7.1 L Oxyhemoglobin Sodium Potassium Chloride Carbon Dioxide BUN Creatinine Glucose POC Glucose 112 H Lactic Acid Calcium TIBC Ferritin AST ALT Alkaline Phosphatase Total Creatine Kinase CK-MB (CK-2) CK-MB (CK-2) Rel Index Troponin T Total Protein Albumin Urine WBC (Auto) Vancomycin Trough 03/24/19 03/24/19 03/24/19 04:42 06:03 12:24 WBC RBC Hgb Hct MCV MCH RDW Plt Count Lymph % (Auto) Lymph # Seg Neutrophils % Seg Neuts % (Manual) Lymphocytes % (Manual) Monocytes % (Manual) Eosinophils % (Manual) Nucleated RBC % Seg Neutrophils # Man Lymphocytes # (Manual) POC ABG pH ABG pH POC ABG pCO2 POC ABG pO2 ABG pO2 ABG HCO3 ABG Base Excess ABG Hemoglobin Oxyhemoglobin Sodium 149 H Potassium Chloride 115.7 H Carbon Dioxide BUN 18 H Creatinine Glucose 128 H POC Glucose 136 H 137 H Lactic Acid Calcium 8.3 L TIBC Ferritin AST ALT Alkaline Phosphatase Total Creatine Kinase CK-MB (CK-2) CK-MB (CK-2) Rel Index Troponin T Total Protein Albumin Urine WBC (Auto) Vancomycin Trough 03/24/19 03/24/19 03/25/19 17:48 23:51 04:45 WBC RBC 2.35 L Hgb 7.5 L Hct 23.4 L MCV 100 H MCH RDW 24.7 H Plt Count Lymph % (Auto) Lymph # Seg Neutrophils % Seg Neuts % (Manual) Lymphocytes % (Manual) Monocytes % (Manual) Eosinophils % (Manual) Nucleated RBC % Seg Neutrophils # Man Lymphocytes # (Manual) POC ABG pH ABG pH POC ABG pCO2 POC ABG pO2 ABG pO2 ABG HCO3 ABG Base Excess ABG Hemoglobin Oxyhemoglobin Sodium Potassium Chloride Carbon Dioxide BUN Creatinine Glucose POC Glucose 139 H 131 H Lactic Acid Calcium TIBC Ferritin AST ALT Alkaline Phosphatase Total Creatine Kinase CK-MB (CK-2) CK-MB (CK-2) Rel Index Troponin T Total Protein Albumin Urine WBC (Auto) Vancomycin Trough 03/25/19 03/25/19 03/25/19 04:45 05:33 18:21 WBC RBC Hgb Hct MCV MCH RDW Plt Count Lymph % (Auto) Lymph # Seg Neutrophils % Seg Neuts % (Manual) Lymphocytes % (Manual) Monocytes % (Manual) Eosinophils % (Manual) Nucleated RBC % Seg Neutrophils # Man Lymphocytes # (Manual) POC ABG pH ABG pH POC ABG pCO2 POC ABG pO2 ABG pO2 ABG HCO3 ABG Base Excess ABG Hemoglobin Oxyhemoglobin Sodium 146 H Potassium Chloride 114.1 H Carbon Dioxide BUN Creatinine Glucose 117 H POC Glucose 129 H 120 H Lactic Acid Calcium TIBC Ferritin AST ALT Alkaline Phosphatase Total Creatine Kinase CK-MB (CK-2) CK-MB (CK-2) Rel Index Troponin T Total Protein Albumin Urine WBC (Auto) Vancomycin Trough 03/26/19 03/26/19 03/26/19 04:40 06:50 16:18 WBC 4.1 L RBC 2.35 L Hgb 7.5 L Hct 23.4 L MCV 100 H MCH RDW 25.1 H Plt Count Lymph % (Auto) Lymph # Seg Neutrophils % Seg Neuts % (Manual) Lymphocytes % (Manual) Monocytes % (Manual) Eosinophils % (Manual) Nucleated RBC % Seg Neutrophils # Man Lymphocytes # (Manual) POC ABG pH ABG pH POC ABG pCO2 POC ABG pO2 ABG pO2 ABG HCO3 ABG Base Excess ABG Hemoglobin Oxyhemoglobin Sodium Potassium Chloride 113.9 H Carbon Dioxide BUN Creatinine Glucose POC Glucose 115 H Lactic Acid Calcium TIBC Ferritin AST ALT Alkaline Phosphatase Total Creatine Kinase CK-MB (CK-2) CK-MB (CK-2) Rel Index Troponin T Total Protein Albumin Urine WBC (Auto) Vancomycin Trough 03/26/19 03/27/19 03/27/19 18:06 01:57 05:27 WBC 2.9 L RBC 2.52 L Hgb 8.1 L Hct 25.1 L MCV 100 H MCH RDW 24.7 H Plt Count Lymph % (Auto) Lymph # Seg Neutrophils % Seg Neuts % (Manual) Lymphocytes % (Manual) Monocytes % (Manual) Eosinophils % (Manual) Nucleated RBC % Seg Neutrophils # Man Lymphocytes # (Manual) POC ABG pH ABG pH POC ABG pCO2 POC ABG pO2 ABG pO2 ABG HCO3 ABG Base Excess ABG Hemoglobin Oxyhemoglobin Sodium Potassium Chloride Carbon Dioxide BUN Creatinine Glucose POC Glucose 121 H 130 H Lactic Acid Calcium TIBC Ferritin AST ALT Alkaline Phosphatase Total Creatine Kinase CK-MB (CK-2) CK-MB (CK-2) Rel Index Troponin T Total Protein Albumin Urine WBC (Auto) Vancomycin Trough 03/27/19 03/27/19 03/27/19 05:27 18:49 23:53 WBC RBC Hgb Hct MCV MCH RDW Plt Count Lymph % (Auto) Lymph # Seg Neutrophils % Seg Neuts % (Manual) Lymphocytes % (Manual) Monocytes % (Manual) Eosinophils % (Manual) Nucleated RBC % Seg Neutrophils # Man Lymphocytes # (Manual) POC ABG pH ABG pH POC ABG pCO2 POC ABG pO2 ABG pO2 ABG HCO3 ABG Base Excess ABG Hemoglobin Oxyhemoglobin Sodium 148 H Potassium Chloride 114.5 H Carbon Dioxide BUN Creatinine 0.6 L Glucose 109 H POC Glucose 131 H 115 H Lactic Acid Calcium TIBC Ferritin AST ALT Alkaline Phosphatase Total Creatine Kinase CK-MB (CK-2) CK-MB (CK-2) Rel Index Troponin T Total Protein Albumin Urine WBC (Auto) Vancomycin Trough 03/28/19 03/28/19 03/28/19 04:53 04:53 19:20 WBC 3.2 L RBC 2.41 L Hgb 7.7 L Hct 24.3 L MCV 101 H MCH RDW 25.4 H Plt Count Lymph % (Auto) Lymph # Seg Neutrophils % Seg Neuts % (Manual) Lymphocytes % (Manual) Monocytes % (Manual) Eosinophils % (Manual) Nucleated RBC % Seg Neutrophils # Man Lymphocytes # (Manual) POC ABG pH ABG pH POC ABG pCO2 POC ABG pO2 ABG pO2 ABG HCO3 ABG Base Excess ABG Hemoglobin Oxyhemoglobin Sodium 149 H Potassium Chloride 114.6 H Carbon Dioxide BUN Creatinine 0.5 L Glucose POC Glucose 109 H Lactic Acid Calcium TIBC Ferritin AST ALT Alkaline Phosphatase Total Creatine Kinase CK-MB (CK-2) CK-MB (CK-2) Rel Index Troponin T Total Protein Albumin Urine WBC (Auto) Vancomycin Trough 03/28/19 03/29/19 03/29/19 23:59 05:00 05:00 WBC 4.0 L RBC 2.60 L Hgb 8.5 L Hct 26.4 L MCV 101 H MCH 33 H RDW 25.4 H Plt Count Lymph % (Auto) Lymph # Seg Neutrophils % Seg Neuts % (Manual) Lymphocytes % (Manual) Monocytes % (Manual) Eosinophils % (Manual) Nucleated RBC % Seg Neutrophils # Man Lymphocytes # (Manual) POC ABG pH ABG pH POC ABG pCO2 POC ABG pO2 ABG pO2 ABG HCO3 ABG Base Excess ABG Hemoglobin Oxyhemoglobin Sodium 148 H Potassium Chloride 111.8 H Carbon Dioxide BUN Creatinine 0.6 L Glucose POC Glucose 108 H Lactic Acid Calcium TIBC Ferritin AST ALT Alkaline Phosphatase Total Creatine Kinase CK-MB (CK-2) CK-MB (CK-2) Rel Index Troponin T Total Protein Albumin Urine WBC (Auto) Vancomycin Trough Allied health notes reviewed: nursing
[2019-03-29] MEDS: ENOXAPARIN 40 MG/0.4 ML INJ SUB-Q SCH (10:30)
[2019-03-29] MEDS: FAMOTIDINE 20 MG TAB PO SCH ×2 (10:30→21:36)
[2019-03-29] MEDS: FOLIC ACID 1 MG TAB PO SCH (10:30)
[2019-03-29] MEDS: RIFAXIMIN 550 MG TAB PO SCH ×2 (10:30→21:37)
[2019-03-29] MEDS: THIAMINE 100 MG TAB PO SCH (10:30)
--- NOTE | 2019-03-29 11:56 | Event Note ---
Date: 03/29/19 Patient's chart reviewed: 1. Tracheostomy/PEG tube postponed until tomorrow 03/30/19 at 245pm. Discussed with patient's RN Rahul and asked that TF be resumed for today. 2. continue vent management per critical care team 3. Hold TF after MN tonight 4. I spoke with the patient's son Sherman Jones over the telephone and updated him. 5. Message sent to Dr. Kntot Thank you, please call with questions.
[2019-03-29] MEDS: FLUTICASONE PROPIONATE NASAL SPRAY 16 GM NS SCH (13:24)
--- NOTE | 2019-03-29 16:02 | Progress Note ---
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 Tracheostomy/PEG PLANNED FOR AM. Per surgery discussed with son Sherman Jones. continue oral secreation management Septic shock/Aspiration pneumonia: treated with antibiotics, ID consult appreciated KERRI/CKD 3 is due to ATN and vasomotor nephropathy: -monitor cr level, stable and improved VRE UTI, septic shock, sepsis POA: resolved abx per ID, off vasopressors since 03/17/19, still in contact isolation for VRE Thrombocytopenia: likely 2/2 sepsis, stable Acute Metabolic encephalopathy with agitation: Probably due to the acute infection Acute on chronic Pancytopenia: continue to monitor levels, Oncology consulted Hypernatremia: probably 2/2 dehydration- improved on IV D5W- monitor BMP closely, continue free water flushes Hyperkalemia: s/p kayexalate, resolved Hypoglycemia: On hypoglycemic protocol H/o Chronic liver disease: treated with lactulose and rifaximin Nutrition: Continue tube feeding S/P CARDIAC ARREST-ASystole with ROSC DVT prophylaxis: On sq lovenox Disposition: continue inpatient care, Prognosis is guarded/poor Mobility and offloading to avoid pressure ulcer CODE STATUS: FULL CODE The high probability of a clinically significant, sudden or life-threatening deterioration of the [respiratory, cardiovascular, hematology] system(s) required my full and direct attention, intervention and personal management. The aggregate critical care time was [30] minutes without overlap. Time includes spent on; [x] Data Review and interpretation [x] Patient assessment and monitoring of vital signs [x] Documentation [x] Medication orders and management History Interval history: Patient seen and examined, remains of full ventilatory support. No adverse event reported Hospitalist Physical - Physical exam Narrative exam: Gen: critically ill, awake, eyes open, intubated not sedated on PS- controlled HEENT: NCAT, EOMI, PERRL, OP with ETT and NGT Neck: supple, no adenopathy, no thyromegaly, no JVD CVS/Heart: RRR, normal S1S2, pulses present bilaterally Chest/Lungs: Symmetrical chest expansion, good air entry bilaterally GI/Abdomen: soft, NTND, good bowel sounds, no guarding or rebound /Bladder: no suprapubic tenderness, no CVA or paraspinal tenderness Extermity/Skin: right neck IJ TLC MSK: sFROM x 4 Neuro: CN 2-12 grossly intact, doesn't follow commands Psych: calm - Constitutional Vitals: Temp Pulse Resp BP Pulse Ox 96.7 F L 93 H 21 158/73 95 03/29/19 12:00 03/29/19 15:00 03/29/19 15:00 03/29/19 15:00 03/29/19 15:00 General appearance: Present: no acute distress, other (mildly agitated) Results - Labs CBC & Chem 7: 03/29/19 05:00 03/29/19 05:00 Labs: Laboratory Last Values WBC 4.0 K/mm3 (4.5-11.0) L 03/29/19 05:00 RBC 2.60 M/mm3 (3.65-5.03) L 03/29/19 05:00 Hgb 8.5 gm/dl (10.1-14.3) L 03/29/19 05:00 Hct 26.4 % (30.3-42.9) L 03/29/19 05:00 MCV 101 fl (79-97) H 03/29/19 05:00 MCH 33 pg (28-32) H 03/29/19 05:00 MCHC 32 % (30-34) 03/29/19 05:00 RDW 25.4 % (13.2-15.2) H 03/29/19 05:00 Plt Count 219 K/mm3 (140-440) 03/29/19 05:00 Lymph % (Auto) 6.2 % (13.4-35.0) L 03/17/19 04:45 [place] % (Auto) General Cargo Clerk 03/21/19 08:12 Eos % (Auto) 3.2 % (0.0-4.3) 03/17/19 04:45 Baso % (Auto) 0.2 % (0.0-1.8) 03/17/19 04:45 Lymph # 0.5 K/mm3 (1.2-5.4) L 03/17/19 04:45 [place] # 0.6 K/mm3 (0.0-0.8) 03/17/19 04:45 Eos # 0.3 K/mm3 (0.0-0.4) 03/17/19 04:45 Baso # 0.0 K/mm3 (0.0-0.1) 03/17/19 04:45 Add Manual Diff Complete 03/21/19 08:12 Total Counted 100 03/21/19 08:12 Seg Neutrophils % 84.0 % (40.0-70.0) H 03/17/19 04:45 Seg Neuts % (Manual) 67.0 % (40.0-70.0) 03/21/19 08:12 Band Neutrophils % 2.0 % 03/21/19 08:12 Lymphocytes % (Manual) 13.0 % (13.4-35.0) L 03/21/19 08:12 Reactive Lymphs % (Man) 1.0 % 03/21/19 08:12 Monocytes % (Manual) 13.0 % (0.0-7.3) H 03/21/19 08:12 Eosinophils % (Manual) 3.0 % (0.0-4.3) 03/21/19 08:12 Basophils % (Manual) 0 % (0.0-1.8) 03/21/19 08:12 Metamyelocytes % 1.0 % 03/21/19 08:12 Myelocytes % 0 % 03/21/19 08:12 Promyelocytes % 0 % 03/21/19 08:12 Blast Cells % 0 % 03/21/19 08:12 Nucleated RBC % Not Reportable 03/21/19 08:12 Seg Neutrophils # 7.2 K/mm3 (1.8-7.7) 03/17/19 04:45 Seg Neutrophils # Man 2.6 K/mm3 (1.8-7.7) 03/21/19 08:12 Band Neutrophils # 0.1 K/mm3 03/21/19 08:12 Lymphocytes # (Manual) 0.5 K/mm3 (1.2-5.4) L 03/21/19 08:12 Abs React Lymphs (Man) 0.0 K/mm3 03/21/19 08:12 Monocytes # (Manual) 0.5 K/mm3 (0.0-0.8) 03/21/19 08:12 Eosinophils # (Manual) 0.1 K/mm3 (0.0-0.4) 03/21/19 08:12 Basophils # (Manual) 0.0 K/mm3 (0.0-0.1) 03/21/19 08:12 Metamyelocytes # 0.0 K/mm3 03/21/19 08:12 Myelocytes # 0.0 K/mm3 03/21/19 08:12 Promyelocytes # 0.0 K/mm3 03/21/19 08:12 Blast Cells # 0.0 K/mm3 03/21/19 08:12 Pathologist Review 03/18/19 05:45 WBC Morphology Not Reportable 03/21/19 08:12 Hypersegmented Neuts Not Reportable 03/21/19 08:12 Hyposegmented Neuts Not Reportable 03/21/19 08:12 Hypogranular Neuts Not Reportable 03/21/19 08:12 Smudge Cells Not Reportable 03/21/19 08:12 Toxic Granulation Not Reportable 03/21/19 08:12 Toxic Vacuolation Not Reportable 03/21/19 08:12 Dohle Bodies Not Reportable 03/21/19 08:12 Pelger-Huet Anomaly Not Reportable 03/21/19 08:12 Sheila Rods Not Reportable 03/21/19 08:12 Platelet Estimate Consistent w auto 03/21/19 08:12 Clumped Platelets Not Reportable 03/21/19 08:12 Plt Clumps, EDTA Not Reportable 03/21/19 08:12 Large Platelets Not Reportable 03/21/19 08:12 Giant Platelets Not Reportable 03/21/19 08:12 Platelet Satelliting Not Reportable 03/21/19 08:12 Plt Morphology Comment Not Reportable 03/21/19 08:12 RBC Morphology Not Reportable 03/21/19 08:12 Dimorphic RBCs Not Reportable 03/21/19 08:12 Polychromasia Not Reportable 03/21/19 08:12 Hypochromasia Not Reportable 03/21/19 08:12 Poikilocytosis Not Reportable 03/21/19 08:12 Anisocytosis 1+ 03/21/19 08:12 Microcytosis Not Reportable 03/21/19 08:12 Macrocytosis 1+ 03/21/19 08:12 Spherocytes Not Reportable 03/21/19 08:12 Pappenheimer Bodies Not Reportable 03/21/19 08:12 Sickle Cells Not Reportable 03/21/19 08:12 Target Cells Few 03/21/19 08:12 Tear Drop Cells Not Reportable 03/21/19 08:12 Ovalocytes Not Reportable 03/21/19 08:12 Helmet Cells Not Reportable 03/21/19 08:12 [place] Bodies Not Reportable 03/21/19 08:12 [place] Rings Not Reportable 03/21/19 08:12 [place] Cells Not Reportable 03/21/19 08:12 Bite Cells Not Reportable 03/21/19 08:12 Crenated Cell Not Reportable 03/21/19 08:12 Elliptocytes Not Reportable 03/21/19 08:12 Acanthocytes (Spur) Not Reportable 03/21/19 08:12 Rouleaux Not Reportable 03/21/19 08:12 Hemoglobin C Crystals Not Reportable 03/21/19 08:12 Schistocytes Not Reportable 03/21/19 08:12 Malaria parasites Not Reportable 03/21/19 08:12 [place] Bodies Not Reportable 03/21/19 08:12 Hem Pathologist Commnt No 03/21/19 08:12 POC ABG pH 7.500 (7.35-7.45) H 03/23/19 04:37 ABG pH 7.379 pH Units (7.350-7.450) 03/24/19 04:36 POC ABG pCO2 39.6 (35-45) 03/23/19 04:37 ABG pCO2 43.0 mm Hg 03/24/19 04:36 POC ABG pO2 60 (80-105) L 03/23/19 04:37 ABG pO2 104.6 mm Hg (80.0-90.0) H 03/24/19 04:36 POC ABG HCO3 30.8 (22-26 mml/L) 03/23/19 04:37 ABG HCO3 24.8 mmol/L (20.0-26.0) 03/24/19 04:36 POC ABG Total CO2 32 (23-27mmol/L) 03/23/19 04:37 POC ABG O2 Sat 93 03/23/19 04:37 ABG O2 Saturation 97.7 % (95.0-99.0) 03/24/19 04:36 ABG O2 Content 9.7 (0.0-44) 03/24/19 04:36 POC ABG Base Excess 8 ((-2) - (+3)mmol/L) 03/23/19 04:37 ABG Base Excess -0.3 mmol/L (-2.0-3.0) 03/24/19 04:36 ABG Hemoglobin 7.1 gm/dl (12.0-16.0) L 03/24/19 04:36 ABG Carboxyhemoglobin 2.4 % (0.0-5.0) 03/24/19 04:36 ABG Methemoglobin 0.4 % (0.0-1.5) 03/24/19 04:36 Oxyhemoglobin 95.0 % (95.0-99.0) 03/24/19 04:36 FiO2 25 % 03/24/19 04:36 Sodium 148 mmol/L (137-145) H 03/29/19 05:00 Potassium 4.4 mmol/L (3.6-5.0) 03/29/19 05:00 Chloride 111.8 mmol/L (98-107) H 03/29/19 05:00 Carbon Dioxide 27 mmol/L (22-30) 03/29/19 05:00 Anion Gap 14 mmol/L 03/29/19 05:00 BUN 17 mg/dL (7-17) 03/29/19 05:00 Creatinine 0.6 mg/dL (0.7-1.2) L 03/29/19 05:00 Estimated GFR > 60 ml/min 03/29/19 05:00 BUN/Creatinine Ratio 28 % 03/29/19 05:00 Glucose 77 mg/dL (65-100) 03/29/19 05:00 POC Glucose 85 (70-105) 03/29/19 12:00 Hemoglobin A1c 4.6 % (4-6) 03/10/19 13:16 Lactic Acid 0.80 mmol/L (0.7-2.0) 03/21/19 13:05 Calcium 8.7 mg/dL (8.4-10.2) 03/29/19 05:00 Iron 81 ug/dL (37-170) 03/17/19 11:15 TIBC 127 mcg/dL (250-450) L 03/17/19 11:15 Ferritin 512.4 ng/mL (13.0-400.0) H 03/17/19 11:15 Total Bilirubin 0.50 mg/dL (0.1-1.2) 03/14/19 06:44 AST 144 units/L (5-40) H 03/14/19 06:44 ALT 90 units/L (7-56) H 03/14/19 06:44 Alkaline Phosphatase 226 units/L (35-129) H 03/14/19 06:44 Ammonia 54.0 umol/L (25-60) 03/11/19 07:29 Total Creatine Kinase 194 units/L (30-135) H 03/16/19 05:19 CK-MB (CK-2) 8.6 ng/mL (0.0-4.0) H 03/14/19 06:44 CK-MB (CK-2) Rel Index 7.1 (0-4) H 03/14/19 06:44 Troponin T 0.056 ng/mL (0.00-0.029) H D 03/14/19 06:44 Total Protein 6.7 g/dL (6.3-8.2) 03/14/19 06:44 Albumin 2.2 g/dL (3.9-5) L 03/14/19 06:44 Albumin/Globulin Ratio 0.5 % 03/14/19 06:44 Triglycerides 62 mg/dL (2-149) 03/14/19 06:44 Cholesterol 133 mg/dL (50-199) 03/14/19 06:44 LDL Cholesterol Direct 89 mg/dL (50-130) 03/14/19 06:44 HDL Cholesterol 43 mg/dL (40-59) 03/14/19 06:44 Cholesterol/HDL Ratio 3.09 % 03/14/19 06:44 Procalcitonin 1.19 ng/mL (<0.15) 03/21/19 13:05 Urine Color Straw (Yellow) 03/10/19 14:38 Urine Turbidity Clear (Clear) 03/10/19 14:38 Urine pH 7.0 (5.0-7.0) 03/10/19 14:38 Ur Specific [place] 1.009 (1.003-1.030) 03/10/19 14:38 Urine Protein <15 mg/dl mg/dL (Negative) 03/10/19 14:38 Urine Glucose (UA) Neg mg/dL (Negative) 03/10/19 14:38 Urine Ketones Neg mg/dL (Negative) 03/10/19 14:38 Urine Blood Neg (Negative) 03/10/19 14:38 Urine Nitrite Neg (Negative) 03/10/19 14:38 Urine Bilirubin Neg (Negative) 03/10/19 14:38 Urine Urobilinogen < 2.0 mg/dL (<2.0) 03/10/19 14:38 Ur Leukocyte Esterase Sm (Negative) 03/10/19 14:38 Urine WBC (Auto) 9.0 /HPF (0.0-6.0) H 03/10/19 14:38 Urine RBC (Auto) 2.0 /HPF (0.0-6.0) 03/10/19 14:38 U Epithel Cells (Auto) 1.0 /HPF (0-13.0) 03/10/19 14:38 Urine Bacteria (Auto) 2+ /HPF (Negative) 03/10/19 14:38 Urine Mucus Few /HPF 03/10/19 14:38 Vancomycin Trough 39.7 ug/mL (5.0-20.0) H 03/13/19 05:58 Random Vancomycin 27.6 ug/mL (0-40.0) 03/14/19 05:44 Blood Type B POSITIVE 03/29/19 05:00 Antibody Screen Negative 03/29/19 05:00 Active Medications - Current Medications Current Medications: Generic Name Dose Route Start Last Admin Trade Name Freq PRN Reason Stop Dose Admin Acetaminophen 650 mg 03/10/19 17:46 Tylenol PO Q4H PRN Pain MILD(1-3)/Fever >100.5/GUERRERO Albuterol 2.5 mg 03/11/19 03:52 Proventil IH TID PRN Wheezing Albuterol/Ipratropium 1 ampul 03/11/19 08:00 03/29/19 13:48 Duoneb *Not For Prn Use* IH 1 ampul Q6HRT CONNIE Administration Lipase/Protease/Amylase 1 each 03/14/19 13:25 Roseann Sahni 10,500 Unit FEEDTUBE PRN PRN For Clogged Feeding Tube Dextrose 50 ml 03/10/19 22:27 03/29/19 05:51 D50w (25gm) Syringe IV 50 ml Q30MIN PRN Administration Hypoglycemia Enoxaparin Sodium 40 mg 03/25/19 10:00 03/29/19 10:30 Enoxaparin SUB-Q 40 mg QDAY@1000 CONNIE Administration Famotidine 20 mg 03/22/19 10:00 03/29/19 10:30 Pepcid PO 20 mg BID [facility] Administration Fluticasone Propionate 50 mcg 03/11/19 10:00 03/29/19 13:24 Flonase NS Not Given QDAY [facility] Folic Acid 1 mg 03/11/19 10:00 03/29/19 10:30 Folvite PO 1 mg QDAY [facility] Administration Haloperidol 0.5 mg 03/11/19 03:52 03/12/19 09:32 Haldol PO 0.5 mg Q6H PRN Administration Agitation Hydrophilic Ointment 1 applic 03/14/19 06:51 Vaseline Lip Therapy TP Q2HR PRN Dry Lips Sodium Chloride 500 mls @ 15 mls/hr 03/17/19 20:00 Nacl 0.9% 500 Ml IV PRN [facility] Insulin Human Lispro 0 unit 03/11/19 00:00 03/29/19 13:24 Humalog SUB-Q Not Given Q6HR [facility] Protocol Morphine Sulfate 2 mg 03/10/19 17:56 03/28/19 03:41 Morphine IV 2 mg Q4H PRN Administration Pain, Moderate (4-6) Multi-Ingred Cream/Lotion/Oil/Oint 1 applic 03/14/19 06:51 03/20/19 10:22 Artificial Tears Ophth Oint OU 0.35 applic Q4HR PRN Administration Dry Eye(s) Ondansetron HCl 4 mg 03/10/19 17:46 03/11/19 05:04 Zofran IV 4 mg Q8H PRN Administration Nausea And Vomiting Rifaximin 550 mg 03/11/19 10:00 03/29/19 10:30 Xifaxan PO 550 mg BID CONNIE Administration Scopolamine 1 each 03/20/19 15:00 03/26/19 17:25 Transderm-Scop TD 1 each Q3D CONNIE Administration Simple Syrup 15 ml 03/14/19 13:25 Simple Syrup FEEDTUBE PRN PRN Hypoglycemia Simple Syrup 30 ml 03/14/19 13:25 Simple Syrup FEEDTUBE PRN PRN Hypoglycemia Sodium Bicarbonate 325 mg 03/14/19 13:25 Sodium Bicarbonate FEEDTUBE PRN PRN For Clogged Feeding Tube Sodium Chloride 10 ml 03/10/19 22:00 03/28/19 21:06 Sodium Chloride Flush Syringe 10 Ml IV 10 ml BID CONNIE Administration Sodium Chloride 10 ml 03/10/19 17:46 03/13/19 22:50 Sodium Chloride Flush Syringe 10 Ml IV 10 ml PRN PRN Administration LINE FLUSH Thiamine HCl 100 mg 03/11/19 10:00 03/29/19 10:30 Vitamin B-1 PO 100 mg QDAY CONNIE Administration Nutrition/Malnutrition Assess - Dietary Evaluation Nutrition/Malnutrition Findings: Nutrition Notes Start: 03/11/19 10:01 Freq: Status: Active Protocol: Document 03/28/19 11:17 LM (Rec: 03/28/19 11:32 LM [id number]) Nutrition Notes Initial or Follow up Reassessment Current Diagnosis COPD,Decubitus(Pressure Ulcer) ,Hypertension Other Pertinent Diagnosis AMS/nonverbal, Hep C, Anemia, Renal stones Current Diet Vital AF 1.2 at 55ml/hr Labs/Tests Na 149 Cr 0.5 Pertinent Medications Reviewed Height 5 ft 3 in Weight 108 kg Ray Body Weight (kg) 52.27 BMI 42.1 Weight change and time frame Wt change noted. Pt with edema . Weight Status Obese Subjective/Other Information Vital AF running at 55 ml/hr. Pt remains on vent and tolerating TF. Percent of energy/protein needs met: 92%/94% Minimum of two criteria No Reduced Prosthetic Aide Strength Measurably Reduced (severe) #1 Nutrition Diagnosis Inadequate oral intake Diagnosis Progress(for reassessment Continues documentation) Is patient on ventilator? Yes Is Patient Ambulatory and/or Out of Bed No REE-([facility]-confined to bed) 1911.996 Kcal/Kg value to use for calculation 16 Approximate Energy Requirements Using 1728 kcal/Kg Calculation Used for Recommendations Kcal/kg Additional Notes Protein: >105 g (>2g/kg IBW 52 .27 kg) Fluids: 1 ml/kcal or per MD Nutrition Intervention Change Diet Order: TF Nutrition Support: Vital AF 1.2 at 55ml/hr. Increase flush to 250ml q4h for hypernatremia. Once resolved flush 100ml q4h. Kcal 1,584 Protein (gm) 99 Fluid (mL) 1,071 Goal #1 TF tolerance Goal #2 TF continue to meet at least 80% of estimated energy and protein needs. Anticipated Discharge Needs: unable to determine at this time Follow-Up By: 03/30/19 Additional Comments F/U for TF tolerance, Na labs. - Malnutrition Assessment Minimum of two criteria: No - Attestation Statement I have reviewed and agreed w/ Malnutrition eval & tx plan: Yes
[2019-03-29] MEDS: MORPHINE 2 MG/1 ML INJ IV PRN (18:15)
[2019-03-29] MEDS: SCOPOLAMINE TRANSDERMAL PATCH 72 HR TD SCH (18:15)
[2019-03-30] MEDS: IPRATROPIUM/ALBUTEROL SULFATE 3 ML AMPUL.NEB IH SCH ×4 (02:10→20:30)
[2019-03-30] MEDS: INSULIN LISPRO 100 UNIT/ML SUB-Q SCH ×4 (02:51→18:01)
[2019-03-30] MEDS: MORPHINE 2 MG/1 ML INJ IV PRN ×2 (02:52→16:02)
--- NOTE | 2019-03-30 07:29 | Hem/Onc Progress Note ---
Assessment and Plan 1. h/o Leukopenia and the patient has a history of liver disease and alcohol usage. These may have a role. Thrombocytopenia may have a similar reason. Deficiency investigations. In January, B12 was 1400, folate 13. 2. Encephalopathy, being treated for sepsis. 3. History of electrolyte imbalance. 4. History of hypertension. 5. History of chronic obstructive pulmonary disease. 6. AST, ALT abnormality. 7. The patient was placed on reverse isolation. I will follow the patient during inpatient stay. ANEMIA - FOLLOW b12 - folate normal - will follow h/o plt low - may be sec to infection/meds/antibiotics - pt was on vanco - zosyn - daptomycin ID following pt b12- folate - iron ferritin WNL platelets better lovenox for DVT prevention WBC fluctuating - will follow trach - PEG - 03/30 - Patient Problems (1) Leukopenia Current Visit: Yes Status: Acute Qualifiers: Leukopenia type: unspecified Qualified Code(s): D72.819 - Decreased white blood cell count, unspecified Subjective Date of service: 03/30/19 Principal diagnosis: anemia Interval history: due trach Objective - Exam Narrative Exam: Pain - on vent General appearance - intubated Performance status - complete dependence Eyes - no icterus, ENT - no bleeding LNs cervical not palpable Neck - no LN Respiratory Normal Breath sounds - CTA anteriorly CVS S1 S2 + Extremities edema+ General GI Soft Rectal deferred female - deferred Skin warm Musculoskeletal on vent Neurologically - intubated - Constitutional Vitals: Last Vital Signs Temp 98.1 F 03/30/19 04:00 Pulse 66 03/30/19 06:00 Resp 12 03/30/19 06:00 BP 130/73 03/30/19 06:00 Pulse Ox 100 03/30/19 06:00 - Labs Lab Results: Laboratory Results - last 24 hr 03/29/19 03/29/19 03/29/19 05:00 12:00 18:30 POC Glucose 85 121 H Blood Type B POSITIVE Antibody Screen Negative 03/29/19 03/30/19 23:16 05:38 POC Glucose 122 H 83 Blood Type Antibody Screen Medications & Allergies - Medications Allergies/Adverse Reactions: Allergies No Known Allergies Allergy (Verified 01/06/17 23:38) Per son Home Medications: Home Medications Medication Instructions Recorded Confirmed Last Taken Type Folic Acid [Folvite] 1 mg PO QDAY #30 tablet 08/12/18 03/10/19 03/09/19 Rx Haloperidol [Haldol] 0.5 mg PO Q6H PRN #30 tablet 08/12/18 03/10/19 03/10/19 Rx Lactulose [Cephulac] 20 gm PO Q12H #1 bottle 08/12/18 03/10/19 03/09/19 Rx Rifaximin [Xifaxan] 550 mg PO BID #60 tablet 08/12/18 03/10/19 03/09/19 Rx Thiamine [Vitamin B-1] 100 mg PO QDAY #30 tablet 08/12/18 03/10/19 03/09/19 Rx amLODIPine 5 mg PO QDAY #30 tablet 08/12/18 03/10/19 03/09/19 Rx chlordiazePOXIDE [Librium] 25 mg PO DAILY #3 capsule 08/12/18 03/10/19 03/09/19 Rx ALBUTEROL NEB's [Proventil] 2.5 mg IH TID PRN 02/06/19 03/10/19 03/09/19 History Acetaminophen [Tylenol] 650 mg PO Q6HR PRN 02/06/19 03/10/19 03/09/19 History Fluticasone [Flonase] 1 spray NS QDAY 02/06/19 03/10/19 03/09/19 History Ipratropium/Albuterol Sulfate 1 spray IH QID 02/06/19 03/10/19 03/09/19 History [Combivent Respimat] Melatonin [Melatonin 10MG CAP] 10 mg PO QHS 02/06/19 03/10/19 03/09/19 History Active Medications: Generic Name Dose Route Start Last Admin Trade Name Freq PRN Reason Stop Dose Admin Acetaminophen 650 mg 03/10/19 17:46 Tylenol PO Q4H PRN Pain MILD(1-3)/Fever >100.5/GUERRERO Albuterol 2.5 mg 03/11/19 03:52 Proventil IH TID PRN Wheezing Albuterol/Ipratropium 1 ampul 03/11/19 08:00 03/30/19 02:10 Duoneb *Not For Prn Use* IH 1 ampul Q6HRT CONNIE Administration Lipase/Protease/Amylase 1 each 03/14/19 13:25 Pancremartine Sahni 10,500 Unit FEEDTUBE PRN PRN For Clogged Feeding Tube Dextrose 50 ml 03/10/19 22:27 03/29/19 05:51 D50w (25gm) Syringe IV 50 ml Q30MIN PRN Administration Hypoglycemia Enoxaparin Sodium 40 mg 03/25/19 10:00 03/29/19 10:30 Enoxaparin SUB-Q 40 mg QDAY@1000 CONNIE Administration Famotidine 20 mg 03/22/19 10:00 03/29/19 21:36 Pepcid PO 20 mg BID [facility] Administration Fluticasone Propionate 50 mcg 03/11/19 10:00 03/29/19 13:24 Flonase NS Not Given QDAY [facility] Folic Acid 1 mg 03/11/19 10:00 03/29/19 10:30 Folvite PO 1 mg QDAY [facility] Administration Haloperidol 0.5 mg 03/11/19 03:52 03/12/19 09:32 Haldol PO 0.5 mg Q6H PRN Administration Agitation Hydrophilic Ointment 1 applic 03/14/19 06:51 Vaseline Lip Therapy TP Q2HR PRN Dry Lips Sodium Chloride 500 mls @ 15 mls/hr 03/17/19 20:00 Nacl 0.9% 500 Ml IV PRN [facility] Insulin Human Lispro 0 unit 03/11/19 00:00 03/30/19 07:23 Humalog SUB-Q Not Given Q6HR [facility] Protocol Morphine Sulfate 2 mg 03/10/19 17:56 03/30/19 02:52 Morphine IV 2 mg Q4H PRN Administration Pain, Moderate (4-6) Multi-Ingred Cream/Lotion/Oil/Oint 1 applic 03/14/19 06:51 03/20/19 10:22 Artificial Tears Ophth Oint OU 0.35 applic Q4HR PRN Administration Dry Eye(s) Ondansetron HCl 4 mg 03/10/19 17:46 03/11/19 05:04 Zofran IV 4 mg Q8H PRN Administration Nausea And Vomiting Rifaximin 550 mg 03/11/19 10:00 03/29/19 21:37 Xifaxan PO 550 mg BID [facility] Administration Scopolamine 1 each 03/20/19 15:00 03/29/19 18:15 Transderm-Scop TD 1 each Q3D CONNIE Administration Simple Syrup 15 ml 03/14/19 13:25 Simple Syrup FEEDTUBE PRN PRN Hypoglycemia Simple Syrup 30 ml 03/14/19 13:25 Simple Syrup FEEDTUBE PRN PRN Hypoglycemia Sodium Bicarbonate 325 mg 03/14/19 13:25 Sodium Bicarbonate FEEDTUBE PRN PRN For Clogged Feeding Tube Sodium Chloride 10 ml 03/10/19 22:00 03/29/19 21:37 Sodium Chloride Flush Syringe 10 Ml IV 10 ml BID CONNIE Administration Sodium Chloride 10 ml 03/10/19 17:46 03/13/19 22:50 Sodium Chloride Flush Syringe 10 Ml IV 10 ml PRN PRN Administration LINE FLUSH Thiamine HCl 100 mg 03/11/19 10:00 03/29/19 10:30 Vitamin B-1 PO 100 mg QDAY CONNIE Administration
--- NOTE | 2019-03-30 09:34 | Progress Note ---
Assessment and Plan Severe sepsis with septic shock - resolved Cardiac arrest-asystole with ROSC Acute hypoxic respiratory failure on MVS Lactic acidosis- multifactorial ( resolved) Acute toxic- metabolic encephalopathy( improving) Aspiration pneumonia VRE UTI Hypernatremia Thrombocytopenia h/o Cirrhosis h/o Alcohol abuse disorder KERRI Hyperkalemia Patient remains on mechanical ventilator support via ETT. Daily PSV trials Continue to monitor off antibiotics Trach and PEG by Surgical service- per surgeon plan for today. Continue free water flushes for hypernatremia Oral secretions are improving, continue with secretion management Avoid delirium, maintenance of sleep-wake cycle Continue with mobility and off loading to avoid pressure ulcer Discussed with ICU team during IDT rounds -VAP bundle addressed -Aspiration precautions, HOB>40 degrees - Lung protective strategies -Wean FIO2 for O2 sats>90% -CXR, ABG prn -CBC, BMP in am -Avoid nephrotoxins and adjust all medications fro GFR and CrCL -Continue tube feedings -Agitation management, Pain management -Continue contact isolation - Continue VTE prophylaxis - Continue stress ulcer prophylaxis - Accuchecks with glycemic control for SSI (Target blood glucose of 140-180 mg/dL; avoid hypoglycemia) - Continue to monitor hemodynamics closely -Monitor electrolyte profile closely and replete as indicated CONDITION: CRITICAL PROGNOSIS: GUARDED CODE STATUS: FULL CODE The high probability of a clinically significant, sudden or life-threatening deterioration of the [respiratory, cardiovascular, hematology] system(s) required my full and direct attention, intervention and personal management. The aggregate critical care time was [30] minutes without overlap. Time includes spent on; [x] Data Review and interpretation [x] Patient assessment and monitoring of vital signs [x] Documentation [x] Medication orders and management Subjective Date of service: 03/30/19 Principal diagnosis: anemia Interval history: Follow up for severe sepsis with septic shock; acute hypoxemic respiratory failure on MVS; s/p cardiac arrest with ROSC; VRE UTI; aspiration pneumonia; Patient seen and examined. Vitals, labs, medications, chart and imaging reviewed. No fevers, no vomiting; weaning supplemental oxygen, More awake, was hypothermic overnight. Remains critically ill on full ventilatory support, not tolerating weaning; for trachesotomy and PEG placement; No acute overnight events reported Objective Vital Signs - 12hr 03/29/19 03/29/19 03/29/19 22:00 22:08 23:00 Temperature Pulse Rate 85 83 79 Pulse Rate [ Anterior Throughout] Pulse Rate [ From Monitor] Respiratory 15 13 13 Rate Respiratory Rate [Anterior Throughout] Blood Pressure 155/84 155/84 135/70 O2 Sat by Pulse 97 99 98 Oximetry 03/30/19 03/30/19 03/30/19 00:00 00:25 01:00 Temperature 98.0 F Pulse Rate 80 78 79 Pulse Rate [ Anterior Throughout] Pulse Rate [ 80 From Monitor] Respiratory 13 12 Rate Respiratory Rate [Anterior Throughout] Blood Pressure 135/70 144/60 115/85 O2 Sat by Pulse 100 100 99 Oximetry 03/30/19 03/30/19 03/30/19 02:00 02:10 03:00 Temperature Pulse Rate 88 72 Pulse Rate [ 91 H Anterior Throughout] Pulse Rate [ From Monitor] Respiratory 17 12 Rate Respiratory 15 Rate [Anterior Throughout] Blood Pressure 115/85 113/63 O2 Sat by Pulse 98 100 Oximetry 03/30/19 03/30/19 03/30/19 04:00 05:00 05:08 Temperature 98.1 F Pulse Rate 62 61 69 Pulse Rate [ Anterior Throughout] Pulse Rate [ 69 From Monitor] Respiratory 12 12 Rate Respiratory Rate [Anterior Throughout] Blood Pressure 111/62 115/64 111/62 O2 Sat by Pulse 100 100 Oximetry 03/30/19 03/30/19 03/30/19 06:00 07:57 08:46 Temperature 98.5 F Pulse Rate 66 66 Pulse Rate [ Anterior Throughout] Pulse Rate [ From Monitor] Respiratory 12 23 Rate Respiratory Rate [Anterior Throughout] Blood Pressure 130/73 130/73 O2 Sat by Pulse 100 96 Oximetry Constitutional: no acute distress, alert, other (elderly looking obese AAF with mild respiratory distress on MVS ) Eyes: non-icteric ENT: oropharynx moist, other (ETT 23 cm JA) Neck: supple, no lymphadenopathy, no JVD, other (large neck circumference) Effort: normal Ascultation: Bilateral: diminished breath sounds, rales (scant in bases), rhonchi Percussion: Bilateral: not dull Cardiovascular: regular rate and rhythm, other (S1, S2, no murmurs, gallops or rubs) Gastrointestinal: normoactive bowel sounds, soft, non-tender, non-distended, other (No HSM) Integumentary: normal Extremities: no cyanosis, no edema, pulses normal, no ischemia or petechiae Neurologic: non-focal exam, pupils equal and round Psychiatric: mood appropriate, affect normal CBC and BMP: 03/29/19 05:00 03/29/19 05:00 ABG, PT/INR, D-dimer: ABG POC ABG pH 7.500 (7.35-7.45) H 03/23/19 04:37 ABG pH 7.379 pH Units (7.350-7.450) 03/24/19 04:36 POC ABG pCO2 39.6 (35-45) 03/23/19 04:37 ABG pCO2 43.0 mm Hg 03/24/19 04:36 POC ABG pO2 60 (80-105) L 03/23/19 04:37 ABG pO2 104.6 mm Hg (80.0-90.0) H 03/24/19 04:36 POC ABG HCO3 30.8 (22-26 mml/L) 03/23/19 04:37 POC ABG Total CO2 32 (23-27mmol/L) 03/23/19 04:37 POC ABG O2 Sat 93 03/23/19 04:37 ABG O2 Saturation 97.7 % (95.0-99.0) 03/24/19 04:36 Abnormal lab findings: Abnormal Labs 03/10/19 03/10/19 03/10/19 13:16 13:16 14:38 WBC 0.8 L* RBC 3.35 L Hgb Hct MCV MCH RDW 22.1 H Plt Count 78 L Lymph % (Auto) Lymph # Seg Neutrophils % Seg Neuts % (Manual) Lymphocytes % (Manual) 49.0 H Monocytes % (Manual) Eosinophils % (Manual) Nucleated RBC % Seg Neutrophils # Man 0.3 L Lymphocytes # (Manual) 0.4 L POC ABG pH ABG pH POC ABG pCO2 POC ABG pO2 ABG pO2 ABG HCO3 ABG Base Excess ABG Hemoglobin Oxyhemoglobin Sodium 147 H Potassium 5.4 H Chloride 111.8 H Carbon Dioxide BUN Creatinine 0.6 L Glucose POC Glucose Lactic Acid Calcium TIBC Ferritin AST 128 H ALT 79 H Alkaline Phosphatase 174 H Total Creatine Kinase CK-MB (CK-2) CK-MB (CK-2) Rel Index Troponin T Total Protein Albumin 2.4 L Urine WBC (Auto) 9.0 H Vancomycin Trough 03/10/19 03/10/19 03/11/19 21:22 23:36 07:29 WBC RBC Hgb Hct MCV MCH RDW Plt Count Lymph % (Auto) Lymph # Seg Neutrophils % Seg Neuts % (Manual) Lymphocytes % (Manual) Monocytes % (Manual) Eosinophils % (Manual) Nucleated RBC % Seg Neutrophils # Man Lymphocytes # (Manual) POC ABG pH ABG pH POC ABG pCO2 POC ABG pO2 ABG pO2 ABG HCO3 ABG Base Excess ABG Hemoglobin Oxyhemoglobin Sodium 148 H Potassium 5.6 H Chloride 122.3 H Carbon Dioxide 20 L BUN Creatinine 0.6 L Glucose POC Glucose 65 L 112 H Lactic Acid Calcium TIBC Ferritin AST 102 H ALT 65 H Alkaline Phosphatase 134 H Total Creatine Kinase CK-MB (CK-2) CK-MB (CK-2) Rel Index Troponin T Total Protein 6.1 L Albumin 1.8 L Urine WBC (Auto) Vancomycin Trough 03/11/19 03/11/19 03/11/19 11:25 15:28 18:00 WBC 1.2 L* RBC Hgb Hct MCV MCH RDW 22.1 H Plt Count 53 L Lymph % (Auto) Lymph # Seg Neutrophils % Seg Neuts % (Manual) 78.6 H Lymphocytes % (Manual) 9.5 L Monocytes % (Manual) 9.5 H Eosinophils % (Manual) Nucleated RBC % Seg Neutrophils # Man 0.9 L Lymphocytes # (Manual) 0.1 L POC ABG pH ABG pH POC ABG pCO2 POC ABG pO2 ABG pO2 ABG HCO3 ABG Base Excess ABG Hemoglobin Oxyhemoglobin Sodium Potassium Chloride Carbon Dioxide BUN Creatinine Glucose POC Glucose 117 H 118 H Lactic Acid Calcium TIBC Ferritin AST ALT Alkaline Phosphatase Total Creatine Kinase CK-MB (CK-2) CK-MB (CK-2) Rel Index Troponin T Total Protein Albumin Urine WBC (Auto) Vancomycin Trough 03/12/19 03/12/19 03/12/19 00:19 05:45 08:55 WBC 2.4 L RBC 3.33 L Hgb Hct MCV MCH RDW 22.8 H Plt Count 58 L Lymph % (Auto) Lymph # Seg Neutrophils % Seg Neuts % (Manual) 93.0 H Lymphocytes % (Manual) 4.0 L Monocytes % (Manual) Eosinophils % (Manual) Nucleated RBC % 7.0 H Seg Neutrophils # Man Lymphocytes # (Manual) 0.1 L POC ABG pH ABG pH POC ABG pCO2 POC ABG pO2 ABG pO2 ABG HCO3 ABG Base Excess ABG Hemoglobin Oxyhemoglobin Sodium Potassium Chloride Carbon Dioxide BUN Creatinine Glucose POC Glucose 124 H 116 H Lactic Acid Calcium TIBC Ferritin AST ALT Alkaline Phosphatase Total Creatine Kinase CK-MB (CK-2) CK-MB (CK-2) Rel Index Troponin T Total Protein Albumin Urine WBC (Auto) Vancomycin Trough 03/12/19 03/13/19 03/13/19 08:55 00:18 03:48 WBC 2.7 L RBC 3.06 L Hgb 9.4 L Hct 29.4 L MCV MCH RDW 23.1 H Plt Count 62 L Lymph % (Auto) Lymph # Seg Neutrophils % Seg Neuts % (Manual) 76.0 H Lymphocytes % (Manual) Monocytes % (Manual) Eosinophils % (Manual) Nucleated RBC % 11.0 H Seg Neutrophils # Man Lymphocytes # (Manual) 0.5 L POC ABG pH ABG pH POC ABG pCO2 POC ABG pO2 ABG pO2 ABG HCO3 ABG Base Excess ABG Hemoglobin Oxyhemoglobin Sodium Potassium 5.6 H Chloride 114.2 H Carbon Dioxide 21 L BUN Creatinine Glucose POC Glucose 119 H Lactic Acid Calcium TIBC Ferritin AST ALT Alkaline Phosphatase Total Creatine Kinase CK-MB (CK-2) CK-MB (CK-2) Rel Index Troponin T Total Protein Albumin Urine WBC (Auto) Vancomycin Trough 03/13/19 03/13/19 03/13/19 03:48 05:52 05:58 WBC RBC Hgb Hct MCV MCH RDW Plt Count Lymph % (Auto) Lymph # Seg Neutrophils % Seg Neuts % (Manual) Lymphocytes % (Manual) Monocytes % (Manual) Eosinophils % (Manual) Nucleated RBC % Seg Neutrophils # Man Lymphocytes # (Manual) POC ABG pH ABG pH POC ABG pCO2 POC ABG pO2 ABG pO2 ABG HCO3 ABG Base Excess ABG Hemoglobin Oxyhemoglobin Sodium Potassium Chloride 112.7 H Carbon Dioxide 21 L BUN Creatinine Glucose 103 H POC Glucose 114 H Lactic Acid Calcium TIBC Ferritin AST ALT Alkaline Phosphatase Total Creatine Kinase CK-MB (CK-2) CK-MB (CK-2) Rel Index Troponin T Total Protein Albumin Urine WBC (Auto) Vancomycin Trough 39.7 H 03/13/19 03/13/19 03/14/19 12:12 18:00 00:17 WBC RBC Hgb Hct MCV MCH RDW Plt Count Lymph % (Auto) Lymph # Seg Neutrophils % Seg Neuts % (Manual) Lymphocytes % (Manual) Monocytes % (Manual) Eosinophils % (Manual) Nucleated RBC % Seg Neutrophils # Man Lymphocytes # (Manual) POC ABG pH ABG pH POC ABG pCO2 POC ABG pO2 ABG pO2 ABG HCO3 ABG Base Excess ABG Hemoglobin Oxyhemoglobin Sodium Potassium Chloride Carbon Dioxide BUN Creatinine Glucose POC Glucose 116 H 132 H 130 H Lactic Acid Calcium TIBC Ferritin AST ALT Alkaline Phosphatase Total Creatine Kinase CK-MB (CK-2) CK-MB (CK-2) Rel Index Troponin T Total Protein Albumin Urine WBC (Auto) Vancomycin Trough 03/14/19 03/14/19 03/14/19 05:24 06:44 06:44 WBC 2.6 L RBC 3.00 L Hgb 9.2 L Hct 28.3 L MCV MCH RDW 22.5 H Plt Count 44 L Lymph % (Auto) Lymph # Seg Neutrophils % Seg Neuts % (Manual) 75.0 H Lymphocytes % (Manual) Monocytes % (Manual) Eosinophils % (Manual) 5.0 H Nucleated RBC % 19.0 H Seg Neutrophils # Man Lymphocytes # (Manual) 0.4 L POC ABG pH ABG pH POC ABG pCO2 POC ABG pO2 ABG pO2 ABG HCO3 ABG Base Excess ABG Hemoglobin Oxyhemoglobin Sodium Potassium Chloride 110.2 H Carbon Dioxide 21 L BUN Creatinine 1.3 H Glucose POC Glucose 110 H Lactic Acid Calcium TIBC Ferritin AST 144 H ALT 90 H Alkaline Phosphatase 226 H Total Creatine Kinase CK-MB (CK-2) 8.6 H CK-MB (CK-2) Rel Index 7.1 H Troponin T 0.056 H D Total Protein Albumin 2.2 L Urine WBC (Auto) Vancomycin Trough 03/14/19 03/14/19 03/14/19 09:05 11:54 12:15 WBC RBC Hgb Hct MCV MCH RDW Plt Count Lymph % (Auto) Lymph # Seg Neutrophils % Seg Neuts % (Manual) Lymphocytes % (Manual) Monocytes % (Manual) Eosinophils % (Manual) Nucleated RBC % Seg Neutrophils # Man Lymphocytes # (Manual) POC ABG pH 7.283 L 7.458 H ABG pH POC ABG pCO2 54.9 H 32.7 L POC ABG pO2 76 L ABG pO2 ABG HCO3 ABG Base Excess ABG Hemoglobin Oxyhemoglobin Sodium Potassium Chloride Carbon Dioxide BUN Creatinine Glucose POC Glucose Lactic Acid 2.10 H* Calcium TIBC Ferritin AST ALT Alkaline Phosphatase Total Creatine Kinase CK-MB (CK-2) CK-MB (CK-2) Rel Index Troponin T Total Protein Albumin Urine WBC (Auto) Vancomycin Trough 03/14/19 03/14/19 03/14/19 12:43 13:35 15:35 WBC RBC Hgb Hct MCV MCH RDW Plt Count Lymph % (Auto) Lymph # Seg Neutrophils % Seg Neuts % (Manual) Lymphocytes % (Manual) Monocytes % (Manual) Eosinophils % (Manual) Nucleated RBC % Seg Neutrophils # Man Lymphocytes # (Manual) POC ABG pH ABG pH POC ABG pCO2 POC ABG pO2 ABG pO2 ABG HCO3 ABG Base Excess ABG Hemoglobin Oxyhemoglobin Sodium Potassium Chloride Carbon Dioxide BUN Creatinine Glucose POC Glucose 68 L Lactic Acid 2.10 H* 3.50 H* Calcium TIBC Ferritin AST ALT Alkaline Phosphatase Total Creatine Kinase CK-MB (CK-2) CK-MB (CK-2) Rel Index Troponin T Total Protein Albumin Urine WBC (Auto) Vancomycin Trough 03/14/19 03/14/19 03/14/19 17:34 17:46 17:55 WBC RBC Hgb Hct MCV MCH RDW Plt Count Lymph % (Auto) Lymph # Seg Neutrophils % Seg Neuts % (Manual) Lymphocytes % (Manual) Monocytes % (Manual) Eosinophils % (Manual) Nucleated RBC % Seg Neutrophils # Man Lymphocytes # (Manual) POC ABG pH 7.241 L 7.244 L ABG pH POC ABG pCO2 50.4 H 50.1 H POC ABG pO2 156 H ABG pO2 ABG HCO3 ABG Base Excess ABG Hemoglobin Oxyhemoglobin Sodium Potassium Chloride Carbon Dioxide BUN Creatinine Glucose POC Glucose 49 L Lactic Acid Calcium TIBC Ferritin AST ALT Alkaline Phosphatase Total Creatine Kinase CK-MB (CK-2) CK-MB (CK-2) Rel Index Troponin T Total Protein Albumin Urine WBC (Auto) Vancomycin Trough 03/14/19 03/14/19 03/14/19 18:29 18:32 20:27 WBC RBC Hgb Hct MCV MCH RDW Plt Count Lymph % (Auto) Lymph # Seg Neutrophils % Seg Neuts % (Manual) Lymphocytes % (Manual) Monocytes % (Manual) Eosinophils % (Manual) Nucleated RBC % Seg Neutrophils # Man Lymphocytes # (Manual) POC ABG pH ABG pH POC ABG pCO2 POC ABG pO2 ABG pO2 ABG HCO3 ABG Base Excess ABG Hemoglobin Oxyhemoglobin Sodium Potassium Chloride 112.6 H Carbon Dioxide 19 L BUN Creatinine 1.4 H Glucose 132 H POC Glucose 57 L 115 H Lactic Acid Calcium TIBC Ferritin AST ALT Alkaline Phosphatase Total Creatine Kinase CK-MB (CK-2) CK-MB (CK-2) Rel Index Troponin T Total Protein Albumin Urine WBC (Auto) Vancomycin Trough 03/14/19 03/14/19 03/15/19 23:47 Unknown 04:00 WBC RBC 2.77 L Hgb 8.5 L Hct 27.3 L MCV 98 H MCH RDW 23.0 H Plt Count 27 L Lymph % (Auto) Lymph # Seg Neutrophils % Seg Neuts % (Manual) 75.0 H Lymphocytes % (Manual) 1.0 L Monocytes % (Manual) Eosinophils % (Manual) Nucleated RBC % 4.0 H Seg Neutrophils # Man Lymphocytes # (Manual) 0.1 L POC ABG pH ABG pH POC ABG pCO2 POC ABG pO2 ABG pO2 ABG HCO3 ABG Base Excess ABG Hemoglobin Oxyhemoglobin Sodium Potassium Chloride Carbon Dioxide BUN Creatinine Glucose POC Glucose 116 H Lactic Acid 3.30 H* Calcium TIBC Ferritin AST ALT Alkaline Phosphatase Total Creatine Kinase CK-MB (CK-2) CK-MB (CK-2) Rel Index Troponin T Total Protein Albumin Urine WBC (Auto) Vancomycin Trough 03/15/19 03/15/19 03/15/19 04:00 06:24 07:35 WBC RBC Hgb Hct MCV MCH RDW Plt Count Lymph % (Auto) Lymph # Seg Neutrophils % Seg Neuts % (Manual) Lymphocytes % (Manual) Monocytes % (Manual) Eosinophils % (Manual) Nucleated RBC % Seg Neutrophils # Man Lymphocytes # (Manual) POC ABG pH 7.282 L ABG pH POC ABG pCO2 50.4 H POC ABG pO2 71 L ABG pO2 ABG HCO3 ABG Base Excess ABG Hemoglobin Oxyhemoglobin Sodium Potassium Chloride 112.1 H Carbon Dioxide 19 L BUN Creatinine 1.5 H Glucose 123 H POC Glucose 140 H Lactic Acid Calcium 8.2 L TIBC Ferritin AST ALT Alkaline Phosphatase Total Creatine Kinase CK-MB (CK-2) CK-MB (CK-2) Rel Index Troponin T Total Protein Albumin Urine WBC (Auto) Vancomycin Trough 03/15/19 03/15/19 03/16/19 11:47 23:25 04:33 WBC RBC Hgb Hct MCV MCH RDW Plt Count Lymph % (Auto) Lymph # Seg Neutrophils % Seg Neuts % (Manual) Lymphocytes % (Manual) Monocytes % (Manual) Eosinophils % (Manual) Nucleated RBC % Seg Neutrophils # Man Lymphocytes # (Manual) POC ABG pH ABG pH 7.304 L POC ABG pCO2 POC ABG pO2 ABG pO2 174.4 H ABG HCO3 19.2 L ABG Base Excess -6.6 L ABG Hemoglobin 8.5 L Oxyhemoglobin Sodium Potassium Chloride Carbon Dioxide BUN Creatinine Glucose POC Glucose 161 H 139 H Lactic Acid Calcium TIBC Ferritin AST ALT Alkaline Phosphatase Total Creatine Kinase CK-MB (CK-2) CK-MB (CK-2) Rel Index Troponin T Total Protein Albumin Urine WBC (Auto) Vancomycin Trough 03/16/19 03/16/19 03/16/19 05:19 05:19 05:19 WBC RBC 2.92 L Hgb 8.9 L Hct 28.0 L MCV MCH RDW 22.8 H Plt Count 42 L Lymph % (Auto) Lymph # Seg Neutrophils % Seg Neuts % (Manual) 84.0 H Lymphocytes % (Manual) 5.0 L Monocytes % (Manual) Eosinophils % (Manual) Nucleated RBC % Seg Neutrophils # Man 7.8 H Lymphocytes # (Manual) 0.5 L POC ABG pH ABG pH POC ABG pCO2 POC ABG pO2 ABG pO2 ABG HCO3 ABG Base Excess ABG Hemoglobin Oxyhemoglobin Sodium Potassium 5.2 H Chloride 114.0 H Carbon Dioxide 18 L BUN 22 H Creatinine 1.7 H Glucose 109 H POC Glucose Lactic Acid Calcium 8.0 L TIBC Ferritin AST ALT Alkaline Phosphatase Total Creatine Kinase 194 H CK-MB (CK-2) CK-MB (CK-2) Rel Index Troponin T Total Protein Albumin Urine WBC (Auto) Vancomycin Trough 03/16/19 03/16/19 03/16/19 05:51 12:19 17:42 WBC RBC Hgb Hct MCV MCH RDW Plt Count Lymph % (Auto) Lymph # Seg Neutrophils % Seg Neuts % (Manual) Lymphocytes % (Manual) Monocytes % (Manual) Eosinophils % (Manual) Nucleated RBC % Seg Neutrophils # Man Lymphocytes # (Manual) POC ABG pH ABG pH POC ABG pCO2 POC ABG pO2 ABG pO2 ABG HCO3 ABG Base Excess ABG Hemoglobin Oxyhemoglobin Sodium Potassium Chloride Carbon Dioxide BUN Creatinine Glucose POC Glucose 123 H 134 H 130 H Lactic Acid Calcium TIBC Ferritin AST ALT Alkaline Phosphatase Total Creatine Kinase CK-MB (CK-2) CK-MB (CK-2) Rel Index Troponin T Total Protein Albumin Urine WBC (Auto) Vancomycin Trough 03/17/19 03/17/19 03/17/19 00:46 04:45 04:45 WBC RBC 2.42 L Hgb 7.5 L Hct 23.4 L MCV MCH RDW 22.2 H Plt Count 37 L Lymph % (Auto) 6.2 L Lymph # 0.5 L Seg Neutrophils % 84.0 H Seg Neuts % (Manual) Lymphocytes % (Manual) Monocytes % (Manual) Eosinophils % (Manual) Nucleated RBC % Seg Neutrophils # Man Lymphocytes # (Manual) POC ABG pH ABG pH POC ABG pCO2 POC ABG pO2 ABG pO2 ABG HCO3 ABG Base Excess ABG Hemoglobin Oxyhemoglobin Sodium Potassium Chloride 115.4 H Carbon Dioxide 16 L BUN 27 H Creatinine 1.8 H Glucose 109 H POC Glucose 115 H Lactic Acid Calcium 7.9 L TIBC Ferritin AST ALT Alkaline Phosphatase Total Creatine Kinase CK-MB (CK-2) CK-MB (CK-2) Rel Index Troponin T Total Protein Albumin Urine WBC (Auto) Vancomycin Trough 03/17/19 03/17/19 03/17/19 05:00 06:05 11:15 WBC RBC Hgb Hct MCV MCH RDW Plt Count Lymph % (Auto) Lymph # Seg Neutrophils % Seg Neuts % (Manual) Lymphocytes % (Manual) Monocytes % (Manual) Eosinophils % (Manual) Nucleated RBC % Seg Neutrophils # Man Lymphocytes # (Manual) POC ABG pH ABG pH 7.238 L POC ABG pCO2 POC ABG pO2 ABG pO2 114.7 H ABG HCO3 17.9 L ABG Base Excess -8.8 L ABG Hemoglobin 7.3 L Oxyhemoglobin Sodium Potassium Chloride Carbon Dioxide BUN Creatinine Glucose POC Glucose 124 H Lactic Acid Calcium TIBC 127 L Ferritin AST ALT Alkaline Phosphatase Total Creatine Kinase CK-MB (CK-2) CK-MB (CK-2) Rel Index Troponin T Total Protein Albumin Urine WBC (Auto) Vancomycin Trough 03/17/19 03/17/19 03/17/19 11:15 12:06 18:27 WBC RBC Hgb Hct MCV MCH RDW Plt Count Lymph % (Auto) Lymph # Seg Neutrophils % Seg Neuts % (Manual) Lymphocytes % (Manual) Monocytes % (Manual) Eosinophils % (Manual) Nucleated RBC % Seg Neutrophils # Man Lymphocytes # (Manual) POC ABG pH ABG pH POC ABG pCO2 POC ABG pO2 ABG pO2 ABG HCO3 ABG Base Excess ABG Hemoglobin Oxyhemoglobin Sodium Potassium Chloride Carbon Dioxide BUN Creatinine Glucose POC Glucose 133 H 158 H Lactic Acid Calcium TIBC Ferritin 512.4 H AST ALT Alkaline Phosphatase Total Creatine Kinase CK-MB (CK-2) CK-MB (CK-2) Rel Index Troponin T Total Protein Albumin Urine WBC (Auto) Vancomycin Trough 03/17/19 03/18/19 03/18/19 23:30 04:00 05:45 WBC RBC 2.31 L Hgb 7.0 L Hct 22.0 L MCV MCH RDW 22.2 H Plt Count 45 L Lymph % (Auto) Lymph # Seg Neutrophils % Seg Neuts % (Manual) 82.0 H Lymphocytes % (Manual) 12.0 L Monocytes % (Manual) Eosinophils % (Manual) 5.0 H Nucleated RBC % 1.0 H Seg Neutrophils # Man Lymphocytes # (Manual) 0.8 L POC ABG pH ABG pH POC ABG pCO2 POC ABG pO2 ABG pO2 113.7 H ABG HCO3 ABG Base Excess -3.0 L ABG Hemoglobin 7.0 L Oxyhemoglobin Sodium Potassium Chloride Carbon Dioxide BUN Creatinine Glucose POC Glucose 143 H Lactic Acid Calcium TIBC Ferritin AST ALT Alkaline Phosphatase Total Creatine Kinase CK-MB (CK-2) CK-MB (CK-2) Rel Index Troponin T Total Protein Albumin Urine WBC (Auto) Vancomycin Trough 03/18/19 03/18/19 03/18/19 05:48 05:50 14:01 WBC RBC Hgb Hct MCV MCH RDW Plt Count Lymph % (Auto) Lymph # Seg Neutrophils % Seg Neuts % (Manual) Lymphocytes % (Manual) Monocytes % (Manual) Eosinophils % (Manual) Nucleated RBC % Seg Neutrophils # Man Lymphocytes # (Manual) POC ABG pH 7.299 L ABG pH POC ABG pCO2 48.7 H POC ABG pO2 ABG pO2 ABG HCO3 ABG Base Excess ABG Hemoglobin Oxyhemoglobin Sodium Potassium Chloride 109.9 H Carbon Dioxide BUN 28 H Creatinine 1.5 H Glucose 128 H POC Glucose 118 H Lactic Acid Calcium 7.6 L TIBC Ferritin AST ALT Alkaline Phosphatase Total Creatine Kinase CK-MB (CK-2) CK-MB (CK-2) Rel Index Troponin T Total Protein Albumin Urine WBC (Auto) Vancomycin Trough 03/18/19 03/19/19 03/19/19 23:53 04:43 06:02 WBC RBC Hgb Hct MCV MCH RDW Plt Count Lymph % (Auto) Lymph # Seg Neutrophils % Seg Neuts % (Manual) Lymphocytes % (Manual) Monocytes % (Manual) Eosinophils % (Manual) Nucleated RBC % Seg Neutrophils # Man Lymphocytes # (Manual) POC ABG pH ABG pH 7.332 L POC ABG pCO2 POC ABG pO2 ABG pO2 116.2 H ABG HCO3 ABG Base Excess -3.3 L ABG Hemoglobin 7.3 L Oxyhemoglobin 94.9 L Sodium Potassium Chloride Carbon Dioxide BUN Creatinine Glucose POC Glucose 130 H 122 H Lactic Acid Calcium TIBC Ferritin AST ALT Alkaline Phosphatase Total Creatine Kinase CK-MB (CK-2) CK-MB (CK-2) Rel Index Troponin T Total Protein Albumin Urine WBC (Auto) Vancomycin Trough 03/19/19 03/19/19 03/19/19 12:16 15:33 23:44 WBC RBC Hgb Hct MCV MCH RDW Plt Count Lymph % (Auto) Lymph # Seg Neutrophils % Seg Neuts % (Manual) Lymphocytes % (Manual) Monocytes % (Manual) Eosinophils % (Manual) Nucleated RBC % Seg Neutrophils # Man Lymphocytes # (Manual) POC ABG pH 7.316 L ABG pH POC ABG pCO2 45.7 H POC ABG pO2 ABG pO2 ABG HCO3 ABG Base Excess ABG Hemoglobin Oxyhemoglobin Sodium Potassium Chloride Carbon Dioxide BUN Creatinine Glucose POC Glucose 132 H 106 H Lactic Acid Calcium TIBC Ferritin AST ALT Alkaline Phosphatase Total Creatine Kinase CK-MB (CK-2) CK-MB (CK-2) Rel Index Troponin T Total Protein Albumin Urine WBC (Auto) Vancomycin Trough 03/20/19 03/20/19 03/20/19 01:00 EST 04:27 12:06 WBC RBC Hgb Hct MCV MCH RDW Plt Count Lymph % (Auto) Lymph # Seg Neutrophils % Seg Neuts % (Manual) Lymphocytes % (Manual) Monocytes % (Manual) Eosinophils % (Manual) Nucleated RBC % Seg Neutrophils # Man Lymphocytes # (Manual) POC ABG pH ABG pH POC ABG pCO2 POC ABG pO2 ABG pO2 121.6 H ABG HCO3 ABG Base Excess ABG Hemoglobin 7.1 L Oxyhemoglobin Sodium Potassium 3.4 L Chloride 111.7 H Carbon Dioxide BUN 29 H Creatinine Glucose POC Glucose 134 H Lactic Acid Calcium 8.0 L TIBC Ferritin AST ALT Alkaline Phosphatase Total Creatine Kinase CK-MB (CK-2) CK-MB (CK-2) Rel Index Troponin T Total Protein Albumin Urine WBC (Auto) Vancomycin Trough 03/20/19 03/20/19 03/21/19 18:09 23:36 05:42 WBC RBC Hgb Hct MCV MCH RDW Plt Count Lymph % (Auto) Lymph # Seg Neutrophils % Seg Neuts % (Manual) Lymphocytes % (Manual) Monocytes % (Manual) Eosinophils % (Manual) Nucleated RBC % Seg Neutrophils # Man Lymphocytes # (Manual) POC ABG pH ABG pH POC ABG pCO2 POC ABG pO2 ABG pO2 ABG HCO3 ABG Base Excess ABG Hemoglobin Oxyhemoglobin Sodium Potassium Chloride Carbon Dioxide BUN Creatinine Glucose POC Glucose 133 H 114 H 116 H Lactic Acid Calcium TIBC Ferritin AST ALT Alkaline Phosphatase Total Creatine Kinase CK-MB (CK-2) CK-MB (CK-2) Rel Index Troponin T Total Protein Albumin Urine WBC (Auto) Vancomycin Trough 03/21/19 03/21/19 03/21/19 08:12 14:09 17:51 WBC 3.9 L RBC 2.25 L Hgb 7.1 L Hct 21.6 L MCV MCH RDW 21.6 H Plt Count 105 L Lymph % (Auto) Lymph # Seg Neutrophils % Seg Neuts % (Manual) Lymphocytes % (Manual) 13.0 L Monocytes % (Manual) 13.0 H Eosinophils % (Manual) Nucleated RBC % Seg Neutrophils # Man Lymphocytes # (Manual) 0.5 L POC ABG pH ABG pH POC ABG pCO2 POC ABG pO2 120 H ABG pO2 ABG HCO3 ABG Base Excess ABG Hemoglobin Oxyhemoglobin Sodium Potassium Chloride Carbon Dioxide BUN Creatinine Glucose POC Glucose 145 H Lactic Acid Calcium TIBC Ferritin AST ALT Alkaline Phosphatase Total Creatine Kinase CK-MB (CK-2) CK-MB (CK-2) Rel Index Troponin T Total Protein Albumin Urine WBC (Auto) Vancomycin Trough 03/22/19 03/22/19 03/22/19 05:36 11:10 11:39 WBC RBC Hgb Hct MCV MCH RDW Plt Count Lymph % (Auto) Lymph # Seg Neutrophils % Seg Neuts % (Manual) Lymphocytes % (Manual) Monocytes % (Manual) Eosinophils % (Manual) Nucleated RBC % Seg Neutrophils # Man Lymphocytes # (Manual) POC ABG pH ABG pH POC ABG pCO2 POC ABG pO2 ABG pO2 ABG HCO3 ABG Base Excess ABG Hemoglobin Oxyhemoglobin Sodium 149 H Potassium Chloride 115.6 H Carbon Dioxide BUN 20 H Creatinine Glucose 109 H POC Glucose 106 H 124 H Lactic Acid Calcium TIBC Ferritin AST ALT Alkaline Phosphatase Total Creatine Kinase CK-MB (CK-2) CK-MB (CK-2) Rel Index Troponin T Total Protein Albumin Urine WBC (Auto) Vancomycin Trough 03/22/19 03/22/19 03/22/19 12:04 18:36 Unknown WBC 4.2 L RBC 2.45 L Hgb 7.6 L Hct 23.9 L MCV 98 H MCH RDW 22.2 H Plt Count Lymph % (Auto) Lymph # Seg Neutrophils % Seg Neuts % (Manual) Lymphocytes % (Manual) Monocytes % (Manual) Eosinophils % (Manual) Nucleated RBC % Seg Neutrophils # Man Lymphocytes # (Manual) POC ABG pH 7.285 L ABG pH POC ABG pCO2 55.4 H POC ABG pO2 ABG pO2 ABG HCO3 ABG Base Excess ABG Hemoglobin Oxyhemoglobin Sodium Potassium Chloride Carbon Dioxide BUN Creatinine Glucose POC Glucose 120 H Lactic Acid Calcium TIBC Ferritin AST ALT Alkaline Phosphatase Total Creatine Kinase CK-MB (CK-2) CK-MB (CK-2) Rel Index Troponin T Total Protein Albumin Urine WBC (Auto) Vancomycin Trough 03/23/19 03/23/19 03/23/19 04:37 05:12 05:30 WBC 4.2 L RBC 2.22 L Hgb 7.0 L Hct 21.4 L MCV MCH RDW 21.5 H Plt Count Lymph % (Auto) Lymph # Seg Neutrophils % Seg Neuts % (Manual) Lymphocytes % (Manual) Monocytes % (Manual) Eosinophils % (Manual) Nucleated RBC % Seg Neutrophils # Man Lymphocytes # (Manual) POC ABG pH 7.500 H ABG pH POC ABG pCO2 POC ABG pO2 60 L ABG pO2 ABG HCO3 ABG Base Excess ABG Hemoglobin Oxyhemoglobin Sodium Potassium Chloride Carbon Dioxide BUN Creatinine Glucose POC Glucose 106 H Lactic Acid Calcium TIBC Ferritin AST ALT Alkaline Phosphatase Total Creatine Kinase CK-MB (CK-2) CK-MB (CK-2) Rel Index Troponin T Total Protein Albumin Urine WBC (Auto) Vancomycin Trough 03/23/19 03/23/19 03/23/19 05:30 11:50 18:11 WBC RBC Hgb Hct MCV MCH RDW Plt Count Lymph % (Auto) Lymph # Seg Neutrophils % Seg Neuts % (Manual) Lymphocytes % (Manual) Monocytes % (Manual) Eosinophils % (Manual) Nucleated RBC % Seg Neutrophils # Man Lymphocytes # (Manual) POC ABG pH ABG pH POC ABG pCO2 POC ABG pO2 ABG pO2 ABG HCO3 ABG Base Excess ABG Hemoglobin Oxyhemoglobin Sodium 149 H Potassium Chloride 114.7 H Carbon Dioxide BUN 19 H Creatinine Glucose POC Glucose 118 H 107 H Lactic Acid Calcium 8.3 L TIBC Ferritin AST ALT Alkaline Phosphatase Total Creatine Kinase CK-MB (CK-2) CK-MB (CK-2) Rel Index Troponin T Total Protein Albumin Urine WBC (Auto) Vancomycin Trough 03/23/19 03/24/19 03/24/19 23:23 04:36 04:42 WBC 4.0 L RBC 2.46 L Hgb 7.9 L Hct 24.4 L MCV 99 H MCH RDW 23.5 H Plt Count Lymph % (Auto) Lymph # Seg Neutrophils % Seg Neuts % (Manual) Lymphocytes % (Manual) Monocytes % (Manual) Eosinophils % (Manual) Nucleated RBC % Seg Neutrophils # Man Lymphocytes # (Manual) POC ABG pH ABG pH POC ABG pCO2 POC ABG pO2 ABG pO2 104.6 H ABG HCO3 ABG Base Excess ABG Hemoglobin 7.1 L Oxyhemoglobin Sodium Potassium Chloride Carbon Dioxide BUN Creatinine Glucose POC Glucose 112 H Lactic Acid Calcium TIBC Ferritin AST ALT Alkaline Phosphatase Total Creatine Kinase CK-MB (CK-2) CK-MB (CK-2) Rel Index Troponin T Total Protein Albumin Urine WBC (Auto) Vancomycin Trough 03/24/19 03/24/19 03/24/19 04:42 06:03 12:24 WBC RBC Hgb Hct MCV MCH RDW Plt Count Lymph % (Auto) Lymph # Seg Neutrophils % Seg Neuts % (Manual) Lymphocytes % (Manual) Monocytes % (Manual) Eosinophils % (Manual) Nucleated RBC % Seg Neutrophils # Man Lymphocytes # (Manual) POC ABG pH ABG pH POC ABG pCO2 POC ABG pO2 ABG pO2 ABG HCO3 ABG Base Excess ABG Hemoglobin Oxyhemoglobin Sodium 149 H Potassium Chloride 115.7 H Carbon Dioxide BUN 18 H Creatinine Glucose 128 H POC Glucose 136 H 137 H Lactic Acid Calcium 8.3 L TIBC Ferritin AST ALT Alkaline Phosphatase Total Creatine Kinase CK-MB (CK-2) CK-MB (CK-2) Rel Index Troponin T Total Protein Albumin Urine WBC (Auto) Vancomycin Trough 03/24/19 03/24/19 03/25/19 17:48 23:51 04:45 WBC RBC 2.35 L Hgb 7.5 L Hct 23.4 L MCV 100 H MCH RDW 24.7 H Plt Count Lymph % (Auto) Lymph # Seg Neutrophils % Seg Neuts % (Manual) Lymphocytes % (Manual) Monocytes % (Manual) Eosinophils % (Manual) Nucleated RBC % Seg Neutrophils # Man Lymphocytes # (Manual) POC ABG pH ABG pH POC ABG pCO2 POC ABG pO2 ABG pO2 ABG HCO3 ABG Base Excess ABG Hemoglobin Oxyhemoglobin Sodium Potassium Chloride Carbon Dioxide BUN Creatinine Glucose POC Glucose 139 H 131 H Lactic Acid Calcium TIBC Ferritin AST ALT Alkaline Phosphatase Total Creatine Kinase CK-MB (CK-2) CK-MB (CK-2) Rel Index Troponin T Total Protein Albumin Urine WBC (Auto) Vancomycin Trough 03/25/19 03/25/19 03/25/19 04:45 05:33 18:21 WBC RBC Hgb Hct MCV MCH RDW Plt Count Lymph % (Auto) Lymph # Seg Neutrophils % Seg Neuts % (Manual) Lymphocytes % (Manual) Monocytes % (Manual) Eosinophils % (Manual) Nucleated RBC % Seg Neutrophils # Man Lymphocytes # (Manual) POC ABG pH ABG pH POC ABG pCO2 POC ABG pO2 ABG pO2 ABG HCO3 ABG Base Excess ABG Hemoglobin Oxyhemoglobin Sodium 146 H Potassium Chloride 114.1 H Carbon Dioxide BUN Creatinine Glucose 117 H POC Glucose 129 H 120 H Lactic Acid Calcium TIBC Ferritin AST ALT Alkaline Phosphatase Total Creatine Kinase CK-MB (CK-2) CK-MB (CK-2) Rel Index Troponin T Total Protein Albumin Urine WBC (Auto) Vancomycin Trough 03/26/19 03/26/19 03/26/19 04:40 06:50 16:18 WBC 4.1 L RBC 2.35 L Hgb 7.5 L Hct 23.4 L MCV 100 H MCH RDW 25.1 H Plt Count Lymph % (Auto) Lymph # Seg Neutrophils % Seg Neuts % (Manual) Lymphocytes % (Manual) Monocytes % (Manual) Eosinophils % (Manual) Nucleated RBC % Seg Neutrophils # Man Lymphocytes # (Manual) POC ABG pH ABG pH POC ABG pCO2 POC ABG pO2 ABG pO2 ABG HCO3 ABG Base Excess ABG Hemoglobin Oxyhemoglobin Sodium Potassium Chloride 113.9 H Carbon Dioxide BUN Creatinine Glucose POC Glucose 115 H Lactic Acid Calcium TIBC Ferritin AST ALT Alkaline Phosphatase Total Creatine Kinase CK-MB (CK-2) CK-MB (CK-2) Rel Index Troponin T Total Protein Albumin Urine WBC (Auto) Vancomycin Trough 03/26/19 03/27/19 03/27/19 18:06 01:57 05:27 WBC 2.9 L RBC 2.52 L Hgb 8.1 L Hct 25.1 L MCV 100 H MCH RDW 24.7 H Plt Count Lymph % (Auto) Lymph # Seg Neutrophils % Seg Neuts % (Manual) Lymphocytes % (Manual) Monocytes % (Manual) Eosinophils % (Manual) Nucleated RBC % Seg Neutrophils # Man Lymphocytes # (Manual) POC ABG pH ABG pH POC ABG pCO2 POC ABG pO2 ABG pO2 ABG HCO3 ABG Base Excess ABG Hemoglobin Oxyhemoglobin Sodium Potassium Chloride Carbon Dioxide BUN Creatinine Glucose POC Glucose 121 H 130 H Lactic Acid Calcium TIBC Ferritin AST ALT Alkaline Phosphatase Total Creatine Kinase CK-MB (CK-2) CK-MB (CK-2) Rel Index Troponin T Total Protein Albumin Urine WBC (Auto) Vancomycin Trough 03/27/19 03/27/19 03/27/19 05:27 18:49 23:53 WBC RBC Hgb Hct MCV MCH RDW Plt Count Lymph % (Auto) Lymph # Seg Neutrophils % Seg Neuts % (Manual) Lymphocytes % (Manual) Monocytes % (Manual) Eosinophils % (Manual) Nucleated RBC % Seg Neutrophils # Man Lymphocytes # (Manual) POC ABG pH ABG pH POC ABG pCO2 POC ABG pO2 ABG pO2 ABG HCO3 ABG Base Excess ABG Hemoglobin Oxyhemoglobin Sodium 148 H Potassium Chloride 114.5 H Carbon Dioxide BUN Creatinine 0.6 L Glucose 109 H POC Glucose 131 H 115 H Lactic Acid Calcium TIBC Ferritin AST ALT Alkaline Phosphatase Total Creatine Kinase CK-MB (CK-2) CK-MB (CK-2) Rel Index Troponin T Total Protein Albumin Urine WBC (Auto) Vancomycin Trough 03/28/19 03/28/19 03/28/19 04:53 04:53 19:20 WBC 3.2 L RBC 2.41 L Hgb 7.7 L Hct 24.3 L MCV 101 H MCH RDW 25.4 H Plt Count Lymph % (Auto) Lymph # Seg Neutrophils % Seg Neuts % (Manual) Lymphocytes % (Manual) Monocytes % (Manual) Eosinophils % (Manual) Nucleated RBC % Seg Neutrophils # Man Lymphocytes # (Manual) POC ABG pH ABG pH POC ABG pCO2 POC ABG pO2 ABG pO2 ABG HCO3 ABG Base Excess ABG Hemoglobin Oxyhemoglobin Sodium 149 H Potassium Chloride 114.6 H Carbon Dioxide BUN Creatinine 0.5 L Glucose POC Glucose 109 H Lactic Acid Calcium TIBC Ferritin AST ALT Alkaline Phosphatase Total Creatine Kinase CK-MB (CK-2) CK-MB (CK-2) Rel Index Troponin T Total Protein Albumin Urine WBC (Auto) Vancomycin Trough 03/28/19 03/29/19 03/29/19 23:59 05:00 05:00 WBC 4.0 L RBC 2.60 L Hgb 8.5 L Hct 26.4 L MCV 101 H MCH 33 H RDW 25.4 H Plt Count Lymph % (Auto) Lymph # Seg Neutrophils % Seg Neuts % (Manual) Lymphocytes % (Manual) Monocytes % (Manual) Eosinophils % (Manual) Nucleated RBC % Seg Neutrophils # Man Lymphocytes # (Manual) POC ABG pH ABG pH POC ABG pCO2 POC ABG pO2 ABG pO2 ABG HCO3 ABG Base Excess ABG Hemoglobin Oxyhemoglobin Sodium 148 H Potassium Chloride 111.8 H Carbon Dioxide BUN Creatinine 0.6 L Glucose POC Glucose 108 H Lactic Acid Calcium TIBC Ferritin AST ALT Alkaline Phosphatase Total Creatine Kinase CK-MB (CK-2) CK-MB (CK-2) Rel Index Troponin T Total Protein Albumin Urine WBC (Auto) Vancomycin Trough 03/29/19 03/29/19 18:30 23:16 WBC RBC Hgb Hct MCV MCH RDW Plt Count Lymph % (Auto) Lymph # Seg Neutrophils % Seg Neuts % (Manual) Lymphocytes % (Manual) Monocytes % (Manual) Eosinophils % (Manual) Nucleated RBC % Seg Neutrophils # Man Lymphocytes # (Manual) POC ABG pH ABG pH POC ABG pCO2 POC ABG pO2 ABG pO2 ABG HCO3 ABG Base Excess ABG Hemoglobin Oxyhemoglobin Sodium Potassium Chloride Carbon Dioxide BUN Creatinine Glucose POC Glucose 121 H 122 H Lactic Acid Calcium TIBC Ferritin AST ALT Alkaline Phosphatase Total Creatine Kinase CK-MB (CK-2) CK-MB (CK-2) Rel Index Troponin T Total Protein Albumin Urine WBC (Auto) Vancomycin Trough Allied health notes reviewed: RT
[2019-03-30] MEDS: FLUTICASONE PROPIONATE NASAL SPRAY 16 GM NS SCH (10:06)
[2019-03-30] MEDS: DEXTROSE 50% IN WATER (25GM) 50 ML SYRINGE IV PRN ×2 (12:38→17:58)
[2019-03-30] MEDS: ENOXAPARIN 40 MG/0.4 ML INJ SUB-Q SCH (13:29)
[2019-03-30] MEDS: RIFAXIMIN 550 MG TAB PO SCH ×2 (13:29→21:39)
[2019-03-30] MEDS ORDERED: SODIUM CHLORIDE 0.9% 1000 ML 1,000 ML ONE (13:51)
[2019-03-30] MEDS ORDERED: fentaNYL 100 MCG/2 ML INJ ONE (13:52)
[2019-03-30] MEDS ORDERED: PROPOFOL 200 MG/20 ML VIAL IV ONE ×2 (13:53)
[2019-03-30] MEDS ORDERED: KETAMINE/STERILE WATER 50 MG/ML SYRINGE ONE (13:53)
[2019-03-30] MEDS ORDERED: LIDOCAINE MPF (2%) 20 MG/1 ML VIAL 5 ML ONE (14:00)
--- NOTE | 2019-03-30 14:55 | Procedure Note ---
Date of procedure: 03/30/19 Pre-op diagnosis: respiratory failure Post-op diagnosis: same Procedure: Bronchoscopy Dx - respiratory failure Indications: 68yo F with respiratory failure and inability to wean off vent. Anesth - Local/MAC EBL min Consent was obtained by Dr. Galeana. Timeout was called. We began by inspecting the airway. There was minimal amount of clear secretions in the ETT and airway. There was a moderated amount of whitish plaques throughout the trachea. The ETT was gradually pulled back from 22cm to 15cm. Dr Galeana performed the tracheostomy. We monitored the insertion of the introducer needle. It was close to the center. There was no active bleeding. We monitored the enter procedure. It proceeded smoothly. Once the tracheostomy tube was in place, I then placed the scope through the trach. There was no active bleeding. We were about 3-4cm above the holland. Pt tolerated the procedure well. There were no complications. PEG placement - We then moved onto the PEG placement. Mouth block was inserted. I was able to intubate the esophagus with a jaw thrust. The esophagus was fairly normal. We were able to transilluminate the stomach. Dr. Galeana performed the portion of the procedure to place the introducer needle. I then brought the guidewire back to the mouth and attached a 20Fr PEG tube. Dr. Galeana pulled it into position. The collar was at 4cm at the skin. There was no bleeding around the tube. I examined the rest of the upper GI tract. The duodenum was normal. There was minor tube trauma in the stomach and esophagus. No other abnormalities were seen. Pt tolerated the procedure well. There were no complications. Anesthesia: MAC Surgeon: EBER CROWE (Lissett did trach) Estimated blood loss: minimal Pathology: none Condition: stable Disposition: ICU
--- NOTE | 2019-03-30 15:01 | Procedure Note ---
Date of procedure: 03/30/19 Pre-op diagnosis: vent dependence Post-op diagnosis: same Procedure: tracheostomy Findings: Time out performed. Patient positioned with neck slightly hyperextended. Once anesthesia was induced, Dr. Ramos performed bronchoscopy throughout the placement of tracheostomy. The skin approximately 2 fingerbreadths superior to the sternal notch was anesthetized with 1% lidocaine. A small incision was made using a 15 blade and then the subcutaneous tissue dissected using a hemostat. The introducer needle was inserted into the trachea wire passed towards the holland under visualization by bronchoscopy. The needle was removed and the trachea serially dilated. An 8F shiley tracheostomy was inserted and all other materials removed. The balloon was inflated and the circuit connected to the tracheostomy. Inspiratory and expiratory volumes were satisfactory. Bronchoscopy through the tracheostomy showed the tip to be 4 cm from the holland and no bleeding. The tracheostomy was sutured to the skin using 2-0 prolene interrupted stitches. A drain sponge was applied. Hemostasis was ensured. The neck strap was applied. The patient tolerated the procedure well. All sharps were disposed of appropriately. Anesthesia: RUTHYA, local Surgeon: GURJIT ROWLAND Estimated blood loss: minimal Pathology: none Condition: stable Disposition: no change
[2019-03-30] MEDS ORDERED: PHENYLEPHRINE/NS 1,000 MCG/10 ML SYRINGE (OR USE) IV ONE (15:15)
[2019-03-30] MEDS ORDERED: ROCURONIUM 50 MG/5 ML INJ IV ONE (15:16)
[2019-03-30] MEDS: FAMOTIDINE 20 MG TAB PO SCH ×2 (15:24→21:39)
[2019-03-30] MEDS: FOLIC ACID 1 MG TAB PO SCH (15:24)
[2019-03-30] MEDS: THIAMINE 100 MG TAB PO SCH (15:24)
--- NOTE | 2019-03-30 15:24 | XRay Report ---
CHEST 1 VIEW INDICATION: trach placement. COMPARISON: 03/24/2019 FINDINGS: Support devices: The endotracheal tube and feeding tube have been removed. Been removed. A tracheosto my has been placed which appears in good position. Right arm midline terminates in the axillary vein. Heart: Within normal limits. Lungs/Pleura: Mild pulmonary venous congestion and small pleural effusions are stable. No significant pneumothorax or pneumomediastinum. Additional findings: None. IMPRESSION: Tracheostomy placement. No pneumothorax is visualized. Stable pulmonary venous congestion and pleura l effusions. Signer Name: Seng Varela Jr, MD Signed: 03/30/2019 3:20 PM Workstation Name: [id number]
--- NOTE | 2019-03-30 15:54 | Progress Note ---
Assessment and Plan Assessment and plan: Patient is a 68-year-old woman from [facility] with a history of hypertension, diabetes mellitus type 2, hep C, liver disease secondary to alcoholism and chronic renal disease who presented to [facility] ED with altered mental status, she is only minimally responsive at baseline Acute resp failure with hypoxia on mechanical ventilator> 96 hours: Management per purchasing assistant, daily weaning trials.s/p Trach and peg. Septic shock/Aspiration pneumonia: treated with antibiotics, ID consult appreciated KERRI/CKD 3 is due to ATN and vasomotor nephropathy: -monitor cr level, stable and improved VRE UTI, septic shock, sepsis POA: resolved abx per ID, off vasopressors since 03/17/19, still in contact isolation for VRE Thrombocytopenia: likely 2/2 sepsis, stable Acute Metabolic encephalopathy with agitation: Probably due to the acute infection Acute on chronic Pancytopenia: continue to monitor levels, Oncology consulted Hypernatremia: probably 2/2 dehydration- improved on IV D5W- monitor BMP closely, continue free water flushes Hyperkalemia: s/p kayexalate, resolved Hypoglycemia: On hypoglycemic protocol H/o Chronic liver disease: treated with lactulose and rifaximin Nutrition: Continue tube feeding S/P CARDIAC ARREST-ASystole with ROSC DVT prophylaxis: On sq lovenox Disposition: continue inpatient care, Prognosis is guarded/poor Mobility and offloading to avoid pressure ulcer CODE STATUS: FULL CODE The high probability of a clinically significant, sudden or life-threatening deterioration of the [respiratory, cardiovascular, hematology] system(s) required my full and direct attention, intervention and personal management. The aggregate critical care time was [30] minutes without overlap. Time includes spent on; [x] Data Review and interpretation [x] Patient assessment and monitoring of vital signs [x] Documentation [x] Medication orders and management History Interval history: Patient seen and examined, remains of full ventilatory support. No adverse event reported. Patient had trach and peg done today without any complications Hospitalist Physical - Physical exam Narrative exam: Gen: critically ill, awake, eyes open, intubated not sedated on PS- controlled HEENT: NCAT, EOMI, PERRL, trach in place. Peg inplace. No overt drainage Neck: supple, no adenopathy, no thyromegaly, no JVD CVS/Heart: RRR, normal S1S2, pulses present bilaterally Chest/Lungs: Symmetrical chest expansion, good air entry bilaterally GI/Abdomen: soft, NTND, good bowel sounds, no guarding or rebound /Bladder: no suprapubic tenderness, no CVA or paraspinal tenderness Extermity/Skin: right neck IJ TLC MSK: sFROM x 4 Neuro: CN 2-12 grossly intact, doesn't follow commands Psych: calm - Constitutional Vitals: Temp Pulse Resp BP Pulse Ox 97.0 F L 79 16 140/74 100 03/30/19 15:28 03/30/19 15:28 03/30/19 15:28 03/30/19 15:28 03/30/19 15:28 General appearance: Present: no acute distress, other (mildly agitated) Results - Labs CBC & Chem 7: 03/29/19 05:00 03/29/19 05:00 Labs: Laboratory Last Values WBC 4.0 K/mm3 (4.5-11.0) L 03/29/19 05:00 RBC 2.60 M/mm3 (3.65-5.03) L 03/29/19 05:00 Hgb 8.5 gm/dl (10.1-14.3) L 03/29/19 05:00 Hct 26.4 % (30.3-42.9) L 03/29/19 05:00 MCV 101 fl (79-97) H 03/29/19 05:00 MCH 33 pg (28-32) H 03/29/19 05:00 MCHC 32 % (30-34) 03/29/19 05:00 RDW 25.4 % (13.2-15.2) H 03/29/19 05:00 Plt Count 219 K/mm3 (140-440) 03/29/19 05:00 Lymph % (Auto) 6.2 % (13.4-35.0) L 03/17/19 04:45 [place] % (Auto) [employer] 03/21/19 08:12 Eos % (Auto) 3.2 % (0.0-4.3) 03/17/19 04:45 Baso % (Auto) 0.2 % (0.0-1.8) 03/17/19 04:45 Lymph # 0.5 K/mm3 (1.2-5.4) L 03/17/19 04:45 [place] # 0.6 K/mm3 (0.0-0.8) 03/17/19 04:45 Eos # 0.3 K/mm3 (0.0-0.4) 03/17/19 04:45 Baso # 0.0 K/mm3 (0.0-0.1) 03/17/19 04:45 Add Manual Diff Complete 03/21/19 08:12 Total Counted 100 03/21/19 08:12 Seg Neutrophils % 84.0 % (40.0-70.0) H 03/17/19 04:45 Seg Neuts % (Manual) 67.0 % (40.0-70.0) 03/21/19 08:12 Band Neutrophils % 2.0 % 03/21/19 08:12 Lymphocytes % (Manual) 13.0 % (13.4-35.0) L 03/21/19 08:12 Reactive Lymphs % (Man) 1.0 % 03/21/19 08:12 Monocytes % (Manual) 13.0 % (0.0-7.3) H 03/21/19 08:12 Eosinophils % (Manual) 3.0 % (0.0-4.3) 03/21/19 08:12 Basophils % (Manual) 0 % (0.0-1.8) 03/21/19 08:12 Metamyelocytes % 1.0 % 03/21/19 08:12 Myelocytes % 0 % 03/21/19 08:12 Promyelocytes % 0 % 03/21/19 08:12 Blast Cells % 0 % 03/21/19 08:12 Nucleated RBC % Not Reportable 03/21/19 08:12 Seg Neutrophils # 7.2 K/mm3 (1.8-7.7) 03/17/19 04:45 Seg Neutrophils # Man 2.6 K/mm3 (1.8-7.7) 03/21/19 08:12 Band Neutrophils # 0.1 K/mm3 03/21/19 08:12 Lymphocytes # (Manual) 0.5 K/mm3 (1.2-5.4) L 03/21/19 08:12 Abs React Lymphs (Man) 0.0 K/mm3 03/21/19 08:12 Monocytes # (Manual) 0.5 K/mm3 (0.0-0.8) 03/21/19 08:12 Eosinophils # (Manual) 0.1 K/mm3 (0.0-0.4) 03/21/19 08:12 Basophils # (Manual) 0.0 K/mm3 (0.0-0.1) 03/21/19 08:12 Metamyelocytes # 0.0 K/mm3 03/21/19 08:12 Myelocytes # 0.0 K/mm3 03/21/19 08:12 Promyelocytes # 0.0 K/mm3 03/21/19 08:12 Blast Cells # 0.0 K/mm3 03/21/19 08:12 Pathologist Review 03/18/19 05:45 WBC Morphology Not Reportable 03/21/19 08:12 Hypersegmented Neuts Not Reportable 03/21/19 08:12 Hyposegmented Neuts Not Reportable 03/21/19 08:12 Hypogranular Neuts Not Reportable 03/21/19 08:12 Smudge Cells Not Reportable 03/21/19 08:12 Toxic Granulation Not Reportable 03/21/19 08:12 Toxic Vacuolation Not Reportable 03/21/19 08:12 Dohle Bodies Not Reportable 03/21/19 08:12 Pelger-Huet Anomaly Not Reportable 03/21/19 08:12 Sheila Rods Not Reportable 03/21/19 08:12 Platelet Estimate Consistent w auto 03/21/19 08:12 Clumped Platelets Not Reportable 03/21/19 08:12 Plt Clumps, EDTA Not Reportable 03/21/19 08:12 Large Platelets Not Reportable 03/21/19 08:12 Giant Platelets Not Reportable 03/21/19 08:12 Platelet Satelliting Not Reportable 03/21/19 08:12 Plt Morphology Comment Not Reportable 03/21/19 08:12 RBC Morphology Not Reportable 03/21/19 08:12 Dimorphic RBCs Not Reportable 03/21/19 08:12 Polychromasia Not Reportable 03/21/19 08:12 Hypochromasia Not Reportable 03/21/19 08:12 Poikilocytosis Not Reportable 03/21/19 08:12 Anisocytosis 1+ 03/21/19 08:12 Microcytosis Not Reportable 03/21/19 08:12 Macrocytosis 1+ 03/21/19 08:12 Spherocytes Not Reportable 03/21/19 08:12 Pappenheimer Bodies Not Reportable 03/21/19 08:12 Sickle Cells Not Reportable 03/21/19 08:12 Target Cells Few 03/21/19 08:12 Tear Drop Cells Not Reportable 03/21/19 08:12 Ovalocytes Not Reportable 03/21/19 08:12 Helmet Cells Not Reportable 03/21/19 08:12 Ann-Struble Bodies Not Reportable 03/21/19 08:12 [place] Rings Not Reportable 03/21/19 08:12 [place] Cells Not Reportable 03/21/19 08:12 Bite Cells Not Reportable 03/21/19 08:12 Crenated Cell Not Reportable 03/21/19 08:12 Elliptocytes Not Reportable 03/21/19 08:12 Acanthocytes (Spur) Not Reportable 03/21/19 08:12 Rouleaux Not Reportable 03/21/19 08:12 Hemoglobin C Crystals Not Reportable 03/21/19 08:12 Schistocytes Not Reportable 03/21/19 08:12 Malaria parasites Not Reportable 03/21/19 08:12 [place] Bodies Not Reportable 03/21/19 08:12 Hem Pathologist Commnt No 03/21/19 08:12 POC ABG pH 7.500 (7.35-7.45) H 03/23/19 04:37 ABG pH 7.379 pH Units (7.350-7.450) 03/24/19 04:36 POC ABG pCO2 39.6 (35-45) 03/23/19 04:37 ABG pCO2 43.0 mm Hg 03/24/19 04:36 POC ABG pO2 60 (80-105) L 03/23/19 04:37 ABG pO2 104.6 mm Hg (80.0-90.0) H 03/24/19 04:36 POC ABG HCO3 30.8 (22-26 mml/L) 03/23/19 04:37 ABG HCO3 24.8 mmol/L (20.0-26.0) 03/24/19 04:36 POC ABG Total CO2 32 (23-27mmol/L) 03/23/19 04:37 POC ABG O2 Sat 93 03/23/19 04:37 ABG O2 Saturation 97.7 % (95.0-99.0) 03/24/19 04:36 ABG O2 Content 9.7 (0.0-44) 03/24/19 04:36 POC ABG Base Excess 8 ((-2) - (+3)mmol/L) 03/23/19 04:37 ABG Base Excess -0.3 mmol/L (-2.0-3.0) 03/24/19 04:36 ABG Hemoglobin 7.1 gm/dl (12.0-16.0) L 03/24/19 04:36 ABG Carboxyhemoglobin 2.4 % (0.0-5.0) 03/24/19 04:36 ABG Methemoglobin 0.4 % (0.0-1.5) 03/24/19 04:36 Oxyhemoglobin 95.0 % (95.0-99.0) 03/24/19 04:36 FiO2 25 % 03/24/19 04:36 Sodium 148 mmol/L (137-145) H 03/29/19 05:00 Potassium 4.4 mmol/L (3.6-5.0) 03/29/19 05:00 Chloride 111.8 mmol/L (98-107) H 03/29/19 05:00 Carbon Dioxide 27 mmol/L (22-30) 03/29/19 05:00 Anion Gap 14 mmol/L 03/29/19 05:00 BUN 17 mg/dL (7-17) 03/29/19 05:00 Creatinine 0.6 mg/dL (0.7-1.2) L 03/29/19 05:00 Estimated GFR > 60 ml/min 03/29/19 05:00 BUN/Creatinine Ratio 28 % 03/29/19 05:00 Glucose 77 mg/dL (65-100) 03/29/19 05:00 POC Glucose 72 (70-105) 03/30/19 12:13 Hemoglobin A1c 4.6 % (4-6) 03/10/19 13:16 Lactic Acid 0.80 mmol/L (0.7-2.0) 03/21/19 13:05 Calcium 8.7 mg/dL (8.4-10.2) 03/29/19 05:00 Iron 81 ug/dL (37-170) 03/17/19 11:15 TIBC 127 mcg/dL (250-450) L 03/17/19 11:15 Ferritin 512.4 ng/mL (13.0-400.0) H 03/17/19 11:15 Total Bilirubin 0.50 mg/dL (0.1-1.2) 03/14/19 06:44 AST 144 units/L (5-40) H 03/14/19 06:44 ALT 90 units/L (7-56) H 03/14/19 06:44 Alkaline Phosphatase 226 units/L (35-129) H 03/14/19 06:44 Ammonia 54.0 umol/L (25-60) 03/11/19 07:29 Total Creatine Kinase 194 units/L (30-135) H 03/16/19 05:19 CK-MB (CK-2) 8.6 ng/mL (0.0-4.0) H 03/14/19 06:44 CK-MB (CK-2) Rel Index 7.1 (0-4) H 03/14/19 06:44 Troponin T 0.056 ng/mL (0.00-0.029) H D 03/14/19 06:44 Total Protein 6.7 g/dL (6.3-8.2) 03/14/19 06:44 Albumin 2.2 g/dL (3.9-5) L 03/14/19 06:44 Albumin/Globulin Ratio 0.5 % 03/14/19 06:44 Triglycerides 62 mg/dL (2-149) 03/14/19 06:44 Cholesterol 133 mg/dL (50-199) 03/14/19 06:44 LDL Cholesterol Direct 89 mg/dL (50-130) 03/14/19 06:44 HDL Cholesterol 43 mg/dL (40-59) 03/14/19 06:44 Cholesterol/HDL Ratio 3.09 % 03/14/19 06:44 Procalcitonin 1.19 ng/mL (<0.15) 03/21/19 13:05 Urine Color Straw (Yellow) 03/10/19 14:38 Urine Turbidity Clear (Clear) 03/10/19 14:38 Urine pH 7.0 (5.0-7.0) 03/10/19 14:38 Ur Specific [place] 1.009 (1.003-1.030) 03/10/19 14:38 Urine Protein <15 mg/dl mg/dL (Negative) 03/10/19 14:38 Urine Glucose (UA) Neg mg/dL (Negative) 03/10/19 14:38 Urine Ketones Neg mg/dL (Negative) 03/10/19 14:38 Urine Blood Neg (Negative) 03/10/19 14:38 Urine Nitrite Neg (Negative) 03/10/19 14:38 Urine Bilirubin Neg (Negative) 03/10/19 14:38 Urine Urobilinogen < 2.0 mg/dL (<2.0) 03/10/19 14:38 Ur Leukocyte Esterase Sm (Negative) 03/10/19 14:38 Urine WBC (Auto) 9.0 /HPF (0.0-6.0) H 03/10/19 14:38 Urine RBC (Auto) 2.0 /HPF (0.0-6.0) 03/10/19 14:38 U Epithel Cells (Auto) 1.0 /HPF (0-13.0) 03/10/19 14:38 Urine Bacteria (Auto) 2+ /HPF (Negative) 03/10/19 14:38 Urine Mucus Few /HPF 03/10/19 14:38 Vancomycin Trough 39.7 ug/mL (5.0-20.0) H 03/13/19 05:58 Random Vancomycin 27.6 ug/mL (0-40.0) 03/14/19 05:44 Blood Type B POSITIVE 03/29/19 05:00 Antibody Screen Negative 03/29/19 05:00 Active Medications - Current Medications Current Medications: Generic Name Dose Route Start Last Admin Trade Name Freq PRN Reason Stop Dose Admin Acetaminophen 650 mg 03/10/19 17:46 Tylenol PO Q4H PRN Pain MILD(1-3)/Fever >100.5/GUERRERO Albuterol 2.5 mg 03/11/19 03:52 Proventil IH TID PRN Wheezing Albuterol/Ipratropium 1 ampul 03/11/19 08:00 03/30/19 14:55 Duoneb *Not For Prn Use* IH 1 ampul Q6HRT CONNIE Administration Lipase/Protease/Amylase 1 each 03/14/19 13:25 Roseann Sanhi 10,500 Unit FEEDTUBE PRN PRN For Clogged Feeding Tube Dextrose 50 ml 03/10/19 22:27 03/30/19 12:38 D50w (25gm) Syringe IV 10 ml Q30MIN PRN Administration Hypoglycemia Enoxaparin Sodium 40 mg 03/25/19 10:00 03/30/19 13:29 Enoxaparin SUB-Q Not Given QDAY@1000 [facility] Famotidine 20 mg 03/22/19 10:00 03/30/19 15:24 Pepcid PO Not Given BID [facility] Fluticasone Propionate 50 mcg 03/11/19 10:00 03/30/19 10:06 Flonase NS Not Given QDAY [facility] Folic Acid 1 mg 03/11/19 10:00 03/30/19 15:24 Folvite PO Not Given QDAY [facility] Haloperidol 0.5 mg 03/11/19 03:52 03/12/19 09:32 Haldol PO 0.5 mg Q6H PRN Administration Agitation Hydrophilic Ointment 1 applic 03/14/19 06:51 Vaseline Lip Therapy TP Q2HR PRN Dry Lips Sodium Chloride 500 mls @ 15 mls/hr 03/17/19 20:00 Nacl 0.9% 500 Ml IV PRN [facility] Insulin Human Lispro 0 unit 03/11/19 00:00 03/30/19 12:40 Humalog SUB-Q Not Given Q6HR [facility] Protocol Morphine Sulfate 2 mg 03/10/19 17:56 03/30/19 02:52 Morphine IV 2 mg Q4H PRN Administration Pain, Moderate (4-6) Multi-Ingred Cream/Lotion/Oil/Oint 1 applic 03/14/19 06:51 03/20/19 10:22 Artificial Tears Ophth Oint OU 0.35 applic Q4HR PRN Administration Dry Eye(s) Ondansetron HCl 4 mg 03/10/19 17:46 03/11/19 05:04 Zofran IV 4 mg Q8H PRN Administration Nausea And Vomiting Rifaximin 550 mg 03/11/19 10:00 03/30/19 13:29 Xifaxan PO Not Given BID [facility] Scopolamine 1 each 03/20/19 15:00 03/29/19 18:15 Transderm-Scop TD 1 each Q3D [facility] Administration Simple Syrup 15 ml 03/14/19 13:25 Simple Syrup FEEDTUBE PRN PRN Hypoglycemia Simple Syrup 30 ml 03/14/19 13:25 Simple Syrup FEEDTUBE PRN PRN Hypoglycemia Sodium Bicarbonate 325 mg 03/14/19 13:25 Sodium Bicarbonate FEEDTUBE PRN PRN For Clogged Feeding Tube Sodium Chloride 10 ml 03/10/19 22:00 03/30/19 10:06 Sodium Chloride Flush Syringe 10 Ml IV 10 ml BID CONNIE Administration Sodium Chloride 10 ml 03/10/19 17:46 03/13/19 22:50 Sodium Chloride Flush Syringe 10 Ml IV 10 ml PRN PRN Administration LINE FLUSH Thiamine HCl 100 mg 03/11/19 10:00 03/30/19 15:24 Vitamin B-1 PO Not Given QDAY CONNIE Nutrition/Malnutrition Assess - Dietary Evaluation Nutrition/Malnutrition Findings: Nutrition Notes Start: 03/11/19 10:01 Freq: Status: Active Protocol: Document 03/30/19 10:15 CC (Rec: 03/30/19 10:32 CC [email or web address]) Co-Sign 03/30/19 10:15 LP Nutrition Notes Initial or Follow up Reassessment Current Diagnosis COPD,Decubitus(Pressure Ulcer) ,Hypertension Other Pertinent Diagnosis AMS/nonverbal, Hep C, Anemia, Renal stones Current Diet npo Labs/Tests Na 148 Pertinent Medications Reviewed Height 5 ft 3 in Weight 105.6 kg [place] Body Weight (kg) 52.27 BMI 41.2 Weight change and time frame Wt change noted Weight Status Obese Subjective/Other Information Pt currently NPO, TF not running d/t trach/PEG scheduled for placement today Percent of energy/protein needs met: 0%/0% Minimum of two criteria No #1 Nutrition Diagnosis Inadequate oral intake Diagnosis Progress(for reassessment Continues documentation) Is patient on ventilator? Yes Is Patient Ambulatory and/or Out of Bed No REE-([facility]-confined to bed) 1883.220 Kcal/Kg value to use for calculation 16 Approximate Energy Requirements Using 1690 kcal/Kg Calculation Used for Recommendations Kcal/kg Additional Notes Protein: >105 g (>2g/kg IBW 52 .27 kg) Fluids: 1 ml/kcal or per MD Nutrition Intervention Change Diet Order: TF once trach is placed Nutrition Support: Vital AF 1.2 at 55ml/hr. Increase flush to 250ml q4h for hypernatremia. Once resolved flush 100ml q4h. Kcal 1,584 Protein (gm) 99 Fluid (mL) 1,071 Goal #1 TF started Goal #2 TF to meet at least 80% of estimated energy and protein needs. Anticipated Discharge Needs: unable to determine at this time Follow-Up By: 04/01/19 Additional Comments F/U for TF tolerance, Na labs
[2019-03-31] MEDS: IPRATROPIUM/ALBUTEROL SULFATE 3 ML AMPUL.NEB IH SCH ×4 (02:30→19:45)
[2019-03-31] MEDS: INSULIN LISPRO 100 UNIT/ML SUB-Q SCH ×3 (06:19→19:49)
--- NOTE | 2019-03-31 07:08 | Hem/Onc Progress Note ---
Assessment and Plan 1. h/o Leukopenia and the patient has a history of liver disease and alcohol usage. These may have a role. Thrombocytopenia may have a similar reason. Deficiency investigations. In January, B12 was 1400, folate 13. 2. Encephalopathy, being treated for sepsis. 3. History of electrolyte imbalance. 4. History of hypertension. 5. History of chronic obstructive pulmonary disease. 6. AST, ALT abnormality. 7. The patient was placed on reverse isolation. I will follow the patient during inpatient stay. ANEMIA - FOLLOW b12 - folate normal - will follow h/o plt low - may be sec to infection/meds/antibiotics - pt was on vanco - zosyn - daptomycin ID following pt b12- folate - iron ferritin WNL platelets better lovenox - for DVT prevention WBC fluctuating - will follow s/p trach - PEG - Patient Problems (1) Leukopenia Current Visit: Yes Status: Acute Qualifiers: Leukopenia type: unspecified Qualified Code(s): D72.819 - Decreased white blood cell count, unspecified Subjective Date of service: 03/31/19 Principal diagnosis: anemia Interval history: s/p trach - PEG Objective - Exam Narrative Exam: Pain - on vent General appearance - tracheostomy Performance status - complete dependence Eyes - no icterus, ENT - no bleeding LNs cervical not palpable Neck - no LN Respiratory Normal Breath sounds - CTA anteriorly CVS S1 S2 + Extremities edema+ General GI Soft - PEG+ Rectal deferred female - deferred Skin warm Musculoskeletal moving limbs Neurologically - trying to talk - Constitutional Vitals: Last Vital Signs Temp 97.6 F 03/31/19 04:00 Pulse 105 H 03/31/19 06:00 Resp 17 03/31/19 06:00 BP 150/90 03/31/19 06:00 Pulse Ox 99 03/31/19 06:00 - Labs Lab Results: Laboratory Results - last 24 hr 03/30/19 03/30/19 03/30/19 12:13 17:50 23:44 POC Glucose 72 64 L 87 03/31/19 05:37 POC Glucose 133 H Medications & Allergies - Medications Allergies/Adverse Reactions: Allergies No Known Allergies Allergy (Verified 01/06/17 23:38) Per son Home Medications: Home Medications Medication Instructions Recorded Confirmed Last Taken Type Folic Acid [Folvite] 1 mg PO QDAY #30 tablet 08/12/18 03/10/19 03/09/19 Rx Haloperidol [Haldol] 0.5 mg PO Q6H PRN #30 tablet 08/12/18 03/10/19 03/10/19 Rx Lactulose [Cephulac] 20 gm PO Q12H #1 bottle 08/12/18 03/10/19 03/09/19 Rx Rifaximin [Xifaxan] 550 mg PO BID #60 tablet 08/12/18 03/10/19 03/09/19 Rx Thiamine [Vitamin B-1] 100 mg PO QDAY #30 tablet 08/12/18 03/10/19 03/09/19 Rx amLODIPine 5 mg PO QDAY #30 tablet 08/12/18 03/10/19 03/09/19 Rx chlordiazePOXIDE [Librium] 25 mg PO DAILY #3 capsule 08/12/18 03/10/19 03/09/19 Rx ALBUTEROL NEB's [Proventil] 2.5 mg IH TID PRN 02/06/19 03/10/19 03/09/19 History Acetaminophen [Tylenol] 650 mg PO Q6HR PRN 02/06/19 03/10/19 03/09/19 History Fluticasone [Flonase] 1 spray NS QDAY 02/06/19 03/10/19 03/09/19 History Ipratropium/Albuterol Sulfate 1 spray IH QID 02/06/19 03/10/19 03/09/19 History [Combivent Respimat] Melatonin [Melatonin 10MG CAP] 10 mg PO QHS 02/06/19 03/10/19 03/09/19 History Active Medications: Generic Name Dose Route Start Last Admin Trade Name Freq PRN Reason Stop Dose Admin Acetaminophen 650 mg 03/10/19 17:46 Tylenol PO Q4H PRN Pain MILD(1-3)/Fever >100.5/GUERRERO Albuterol 2.5 mg 03/11/19 03:52 Proventil IH TID PRN Wheezing Albuterol/Ipratropium 1 ampul 03/11/19 08:00 03/31/19 02:30 Duoneb *Not For Prn Use* IH 1 ampul Q6HRT CONNIE Administration Lipase/Protease/Amylase 1 each 03/14/19 13:25 Pancremartine Sahni 10,500 Unit FEEDTUBE PRN PRN For Clogged Feeding Tube Dextrose 50 ml 03/10/19 22:27 03/30/19 17:58 D50w (25gm) Syringe IV 15 ml Q30MIN PRN Administration Hypoglycemia Enoxaparin Sodium 40 mg 03/25/19 10:00 03/30/19 13:29 Enoxaparin SUB-Q Not Given QDAY@1000 [facility] Famotidine 20 mg 03/22/19 10:00 03/30/19 21:39 Pepcid PO 20 mg BID [facility] Administration Fluticasone Propionate 50 mcg 03/11/19 10:00 03/30/19 10:06 Flonase NS Not Given QDAY [facility] Folic Acid 1 mg 03/11/19 10:00 03/30/19 15:24 Folvite PO Not Given QDAY [facility] Haloperidol 0.5 mg 03/11/19 03:52 03/12/19 09:32 Haldol PO 0.5 mg Q6H PRN Administration Agitation Hydrophilic Ointment 1 applic 03/14/19 06:51 Vaseline Lip Therapy TP Q2HR PRN Dry Lips Sodium Chloride 500 mls @ 15 mls/hr 03/17/19 20:00 Nacl 0.9% 500 Ml IV PRN [facility] Insulin Human Lispro 0 unit 03/11/19 00:00 03/31/19 06:19 Humalog SUB-Q Not Given Q6HR [facility] Protocol Morphine Sulfate 2 mg 03/10/19 17:56 03/30/19 16:02 Morphine IV 2 mg Q4H PRN Administration Pain, Moderate (4-6) Multi-Ingred Cream/Lotion/Oil/Oint 1 applic 03/14/19 06:51 03/20/19 10:22 Artificial Tears Ophth Oint OU 0.35 applic Q4HR PRN Administration Dry Eye(s) Ondansetron HCl 4 mg 03/10/19 17:46 03/11/19 05:04 Zofran IV 4 mg Q8H PRN Administration Nausea And Vomiting Rifaximin 550 mg 03/11/19 10:00 03/30/19 21:39 Xifaxan PO 550 mg BID [facility] Administration Scopolamine 1 each 03/20/19 15:00 03/29/19 18:15 Transderm-Scop TD 1 each Q3D CONNIE Administration Simple Syrup 15 ml 03/14/19 13:25 Simple Syrup FEEDTUBE PRN PRN Hypoglycemia Simple Syrup 30 ml 03/14/19 13:25 Simple Syrup FEEDTUBE PRN PRN Hypoglycemia Sodium Bicarbonate 325 mg 03/14/19 13:25 Sodium Bicarbonate FEEDTUBE PRN PRN For Clogged Feeding Tube Sodium Chloride 10 ml 03/10/19 22:00 03/30/19 21:39 Sodium Chloride Flush Syringe 10 Ml IV 10 ml BID CONNIE Administration Sodium Chloride 10 ml 03/10/19 17:46 03/13/19 22:50 Sodium Chloride Flush Syringe 10 Ml IV 10 ml PRN PRN Administration LINE FLUSH Thiamine HCl 100 mg 03/11/19 10:00 03/30/19 15:24 Vitamin B-1 PO Not Given QDAY CONNIE
--- NOTE | 2019-03-31 07:33 | Progress Note ---
Assessment and Plan Severe sepsis with septic shock Cardiac arrest (asystole with ROSC) Acute hypoxic respiratory failure on MVS Lactic acidosis- multifactorial (resolved) Acute toxic- metabolic encephalopathy Aspiration pneumonia VRE UTI Hypernatremia Thrombocytopenia h/o Cirrhosis h/o Alcohol abuse disorder KERRI Hyperkalemia - consult placed already for tracheastomy & PEG - continue daily SAT's and SBT assessment meanwhile, as tolerated - continue Lung protective strategies - continue to wean FIO2 for O2 sats >90% - VAP bundle addressed (Aspiration precautions, HOB > 40 degrees) - continue to wean per pulmonary driven protocol's otherwise - prn CXR's & ABG's at this point - CT head done and no acute process noted - weaned off vasopressors now - discontinued steen catheter - place scopolamine patch for secretion control - continue to avoid nephrotoxins and adjust all medications fro GFR and CrCL - continue enteral nutrition and advance to goal rate as tolerated (hold for tentative extubation) - continue agitation management / Pain management per CPOT - S/P empiric antibiotics course for aspiration PNA and VRE (ID input appreciated) - Continue contact isolation - Continue VTE prophylaxis (SCDs), trend platelet counts and monitor for bleeding - continue stress ulcer prophylaxis with PPI - continue accuchecks with glycemic control for SSI (While critically ill target blood glucose of 140-180 mg/dL; avoid hypoglycemia) - Continue mobility protocol for pressure ulcer prevention - Continue to monitor hemodynamics closely - Monitor electrolyte profile closely and replete as indicated - continue chronic home medications per attending and as clinically indicated - continue other care per attending / other consultants .... re-evaluate in am & prn CONDITION: CRITICAL PROGNOSIS: GUARDED CODE STATUS: FULL CODE The high probability of a clinically significant, sudden or life-threatening deterioration of the [respiratory, cardiovascular, neurologic & hematologic] system(s) required my full and direct attention, intervention and personal management. The aggregate critical care time was [34] minutes without overlap. Time includes spent on; [x] Data Review and interpretation [x] Patient assessment and monitoring of vital signs [x] Documentation [x] Medication orders and management Subjective Date of service: 03/31/19 Principal diagnosis: Severe sepsis with shock; Ac. hypoxemic resp failure; cardiac arrest; PNA Interval history: Follow up for severe sepsis with septic shock; acute hypoxemic respiratory failure on MVS; s/p cardiac arrest with ROSC; VRE UTI; Aspiration pneumonia Seen and examined at bedside; 24hour events reviewed; nursing and respiratory care staff consulted; no adverse overnight events reported to me; resting in bed; remains on MVS; Objective Vital Signs - 12hr 03/30/19 03/30/19 03/30/19 20:00 20:35 21:00 Temperature 97.4 F L Pulse Rate 68 64 Pulse Rate [ 69 Anterior Throughout] Pulse Rate [ 72 From Monitor] Respiratory 12 12 Rate Respiratory 12 Rate [Anterior Throughout] Respiratory Rate [ Generalized] Blood Pressure 139/89 133/62 O2 Sat by Pulse 100 100 Oximetry 03/30/19 03/30/19 03/30/19 21:53 22:00 23:00 Temperature Pulse Rate 76 72 Pulse Rate [ Anterior Throughout] Pulse Rate [ From Monitor] Respiratory 13 14 Rate Respiratory Rate [Anterior Throughout] Respiratory 12 Rate [ Generalized] Blood Pressure 149/92 126/74 O2 Sat by Pulse 100 100 Oximetry 03/30/19 03/30/19 03/31/19 23:30 23:39 00:00 Temperature 97.7 F Pulse Rate 70 63 Pulse Rate [ Anterior Throughout] Pulse Rate [ 68 From Monitor] Respiratory 12 12 11 L Rate Respiratory Rate [Anterior Throughout] Respiratory Rate [ Generalized] Blood Pressure 134/77 145/79 O2 Sat by Pulse 100 100 100 Oximetry 03/31/19 03/31/19 03/31/19 00:17 01:00 02:00 Temperature Pulse Rate 64 84 77 Pulse Rate [ Anterior Throughout] Pulse Rate [ From Monitor] Respiratory 12 12 Rate Respiratory Rate [Anterior Throughout] Respiratory Rate [ Generalized] Blood Pressure 145/79 135/82 143/83 O2 Sat by Pulse 100 98 100 Oximetry 03/31/19 03/31/19 03/31/19 02:30 03:00 03:56 Temperature Pulse Rate 99 H 88 Pulse Rate [ 75 Anterior Throughout] Pulse Rate [ From Monitor] Respiratory 4 L Rate Respiratory 12 Rate [Anterior Throughout] Respiratory Rate [ Generalized] Blood Pressure 143/81 O2 Sat by Pulse 98 Oximetry 03/31/19 03/31/19 03/31/19 04:00 05:00 05:24 Temperature 97.6 F Pulse Rate 89 89 98 H Pulse Rate [ Anterior Throughout] Pulse Rate [ 88 From Monitor] Respiratory 13 12 Rate Respiratory Rate [Anterior Throughout] Respiratory Rate [ Generalized] Blood Pressure 138/80 155/87 155/87 O2 Sat by Pulse 100 100 100 Oximetry 03/31/19 06:00 Temperature Pulse Rate 105 H Pulse Rate [ Anterior Throughout] Pulse Rate [ From Monitor] Respiratory 17 Rate Respiratory Rate [Anterior Throughout] Respiratory Rate [ Generalized] Blood Pressure 150/90 O2 Sat by Pulse 99 Oximetry Constitutional: appears uncomfortable, other (elderly looking obese AAF with mild respiratory distress on MVS ) Eyes: non-icteric ENT: oropharynx moist, other (ETT 23 cm JA) Neck: supple, no lymphadenopathy, no JVD, other (large neck circumference) Effort: mildly labored Ascultation: Bilateral: diminished breath sounds, rales (scant in bases), rhonchi Percussion: Bilateral: not dull Cardiovascular: regular rate and rhythm, other (S1, S2, no murmurs, gallops or rubs rhythm strip shows accelerated junctional ) Gastrointestinal: normoactive bowel sounds, soft, non-tender, non-distended, other (No HSM) Integumentary: normal Extremities: no cyanosis, no edema, pulses normal, no ischemia or petechiae Neurologic: non-focal exam (grossly), pupils equal and round, unable to assess, other (lethargic) Psychiatric: other (unable to assess) CBC and BMP: 03/29/19 05:00 03/29/19 05:00 ABG, PT/INR, D-dimer: ABG POC ABG pH 7.500 (7.35-7.45) H 03/23/19 04:37 ABG pH 7.379 pH Units (7.350-7.450) 03/24/19 04:36 POC ABG pCO2 39.6 (35-45) 03/23/19 04:37 ABG pCO2 43.0 mm Hg 03/24/19 04:36 POC ABG pO2 60 (80-105) L 03/23/19 04:37 ABG pO2 104.6 mm Hg (80.0-90.0) H 03/24/19 04:36 POC ABG HCO3 30.8 (22-26 mml/L) 03/23/19 04:37 POC ABG Total CO2 32 (23-27mmol/L) 03/23/19 04:37 POC ABG O2 Sat 93 03/23/19 04:37 ABG O2 Saturation 97.7 % (95.0-99.0) 03/24/19 04:36 Abnormal lab findings: Abnormal Labs 03/10/19 03/10/19 03/10/19 13:16 13:16 14:38 WBC 0.8 L* RBC 3.35 L Hgb Hct MCV MCH RDW 22.1 H Plt Count 78 L Lymph % (Auto) Lymph # Seg Neutrophils % Seg Neuts % (Manual) Lymphocytes % (Manual) 49.0 H Monocytes % (Manual) Eosinophils % (Manual) Nucleated RBC % Seg Neutrophils # Man 0.3 L Lymphocytes # (Manual) 0.4 L POC ABG pH ABG pH POC ABG pCO2 POC ABG pO2 ABG pO2 ABG HCO3 ABG Base Excess ABG Hemoglobin Oxyhemoglobin Sodium 147 H Potassium 5.4 H Chloride 111.8 H Carbon Dioxide BUN Creatinine 0.6 L Glucose POC Glucose Lactic Acid Calcium TIBC Ferritin AST 128 H ALT 79 H Alkaline Phosphatase 174 H Total Creatine Kinase CK-MB (CK-2) CK-MB (CK-2) Rel Index Troponin T Total Protein Albumin 2.4 L Urine WBC (Auto) 9.0 H Vancomycin Trough 03/10/19 03/10/19 03/11/19 21:22 23:36 07:29 WBC RBC Hgb Hct MCV MCH RDW Plt Count Lymph % (Auto) Lymph # Seg Neutrophils % Seg Neuts % (Manual) Lymphocytes % (Manual) Monocytes % (Manual) Eosinophils % (Manual) Nucleated RBC % Seg Neutrophils # Man Lymphocytes # (Manual) POC ABG pH ABG pH POC ABG pCO2 POC ABG pO2 ABG pO2 ABG HCO3 ABG Base Excess ABG Hemoglobin Oxyhemoglobin Sodium 148 H Potassium 5.6 H Chloride 122.3 H Carbon Dioxide 20 L BUN Creatinine 0.6 L Glucose POC Glucose 65 L 112 H Lactic Acid Calcium TIBC Ferritin AST 102 H ALT 65 H Alkaline Phosphatase 134 H Total Creatine Kinase CK-MB (CK-2) CK-MB (CK-2) Rel Index Troponin T Total Protein 6.1 L Albumin 1.8 L Urine WBC (Auto) Vancomycin Trough 03/11/19 03/11/19 03/11/19 11:25 15:28 18:00 WBC 1.2 L* RBC Hgb Hct MCV MCH RDW 22.1 H Plt Count 53 L Lymph % (Auto) Lymph # Seg Neutrophils % Seg Neuts % (Manual) 78.6 H Lymphocytes % (Manual) 9.5 L Monocytes % (Manual) 9.5 H Eosinophils % (Manual) Nucleated RBC % Seg Neutrophils # Man 0.9 L Lymphocytes # (Manual) 0.1 L POC ABG pH ABG pH POC ABG pCO2 POC ABG pO2 ABG pO2 ABG HCO3 ABG Base Excess ABG Hemoglobin Oxyhemoglobin Sodium Potassium Chloride Carbon Dioxide BUN Creatinine Glucose POC Glucose 117 H 118 H Lactic Acid Calcium TIBC Ferritin AST ALT Alkaline Phosphatase Total Creatine Kinase CK-MB (CK-2) CK-MB (CK-2) Rel Index Troponin T Total Protein Albumin Urine WBC (Auto) Vancomycin Trough 03/12/19 03/12/19 03/12/19 00:19 05:45 08:55 WBC 2.4 L RBC 3.33 L Hgb Hct MCV MCH RDW 22.8 H Plt Count 58 L Lymph % (Auto) Lymph # Seg Neutrophils % Seg Neuts % (Manual) 93.0 H Lymphocytes % (Manual) 4.0 L Monocytes % (Manual) Eosinophils % (Manual) Nucleated RBC % 7.0 H Seg Neutrophils # Man Lymphocytes # (Manual) 0.1 L POC ABG pH ABG pH POC ABG pCO2 POC ABG pO2 ABG pO2 ABG HCO3 ABG Base Excess ABG Hemoglobin Oxyhemoglobin Sodium Potassium Chloride Carbon Dioxide BUN Creatinine Glucose POC Glucose 124 H 116 H Lactic Acid Calcium TIBC Ferritin AST ALT Alkaline Phosphatase Total Creatine Kinase CK-MB (CK-2) CK-MB (CK-2) Rel Index Troponin T Total Protein Albumin Urine WBC (Auto) Vancomycin Trough 03/12/19 03/13/19 03/13/19 08:55 00:18 03:48 WBC 2.7 L RBC 3.06 L Hgb 9.4 L Hct 29.4 L MCV MCH RDW 23.1 H Plt Count 62 L Lymph % (Auto) Lymph # Seg Neutrophils % Seg Neuts % (Manual) 76.0 H Lymphocytes % (Manual) Monocytes % (Manual) Eosinophils % (Manual) Nucleated RBC % 11.0 H Seg Neutrophils # Man Lymphocytes # (Manual) 0.5 L POC ABG pH ABG pH POC ABG pCO2 POC ABG pO2 ABG pO2 ABG HCO3 ABG Base Excess ABG Hemoglobin Oxyhemoglobin Sodium Potassium 5.6 H Chloride 114.2 H Carbon Dioxide 21 L BUN Creatinine Glucose POC Glucose 119 H Lactic Acid Calcium TIBC Ferritin AST ALT Alkaline Phosphatase Total Creatine Kinase CK-MB (CK-2) CK-MB (CK-2) Rel Index Troponin T Total Protein Albumin Urine WBC (Auto) Vancomycin Trough 03/13/19 03/13/19 03/13/19 03:48 05:52 05:58 WBC RBC Hgb Hct MCV MCH RDW Plt Count Lymph % (Auto) Lymph # Seg Neutrophils % Seg Neuts % (Manual) Lymphocytes % (Manual) Monocytes % (Manual) Eosinophils % (Manual) Nucleated RBC % Seg Neutrophils # Man Lymphocytes # (Manual) POC ABG pH ABG pH POC ABG pCO2 POC ABG pO2 ABG pO2 ABG HCO3 ABG Base Excess ABG Hemoglobin Oxyhemoglobin Sodium Potassium Chloride 112.7 H Carbon Dioxide 21 L BUN Creatinine Glucose 103 H POC Glucose 114 H Lactic Acid Calcium TIBC Ferritin AST ALT Alkaline Phosphatase Total Creatine Kinase CK-MB (CK-2) CK-MB (CK-2) Rel Index Troponin T Total Protein Albumin Urine WBC (Auto) Vancomycin Trough 39.7 H 03/13/19 03/13/19 03/14/19 12:12 18:00 00:17 WBC RBC Hgb Hct MCV MCH RDW Plt Count Lymph % (Auto) Lymph # Seg Neutrophils % Seg Neuts % (Manual) Lymphocytes % (Manual) Monocytes % (Manual) Eosinophils % (Manual) Nucleated RBC % Seg Neutrophils # Man Lymphocytes # (Manual) POC ABG pH ABG pH POC ABG pCO2 POC ABG pO2 ABG pO2 ABG HCO3 ABG Base Excess ABG Hemoglobin Oxyhemoglobin Sodium Potassium Chloride Carbon Dioxide BUN Creatinine Glucose POC Glucose 116 H 132 H 130 H Lactic Acid Calcium TIBC Ferritin AST ALT Alkaline Phosphatase Total Creatine Kinase CK-MB (CK-2) CK-MB (CK-2) Rel Index Troponin T Total Protein Albumin Urine WBC (Auto) Vancomycin Trough 03/14/19 03/14/19 03/14/19 05:24 06:44 06:44 WBC 2.6 L RBC 3.00 L Hgb 9.2 L Hct 28.3 L MCV MCH RDW 22.5 H Plt Count 44 L Lymph % (Auto) Lymph # Seg Neutrophils % Seg Neuts % (Manual) 75.0 H Lymphocytes % (Manual) Monocytes % (Manual) Eosinophils % (Manual) 5.0 H Nucleated RBC % 19.0 H Seg Neutrophils # Man Lymphocytes # (Manual) 0.4 L POC ABG pH ABG pH POC ABG pCO2 POC ABG pO2 ABG pO2 ABG HCO3 ABG Base Excess ABG Hemoglobin Oxyhemoglobin Sodium Potassium Chloride 110.2 H Carbon Dioxide 21 L BUN Creatinine 1.3 H Glucose POC Glucose 110 H Lactic Acid Calcium TIBC Ferritin AST 144 H ALT 90 H Alkaline Phosphatase 226 H Total Creatine Kinase CK-MB (CK-2) 8.6 H CK-MB (CK-2) Rel Index 7.1 H Troponin T 0.056 H D Total Protein Albumin 2.2 L Urine WBC (Auto) Vancomycin Trough 03/14/19 03/14/19 03/14/19 09:05 11:54 12:15 WBC RBC Hgb Hct MCV MCH RDW Plt Count Lymph % (Auto) Lymph # Seg Neutrophils % Seg Neuts % (Manual) Lymphocytes % (Manual) Monocytes % (Manual) Eosinophils % (Manual) Nucleated RBC % Seg Neutrophils # Man Lymphocytes # (Manual) POC ABG pH 7.283 L 7.458 H ABG pH POC ABG pCO2 54.9 H 32.7 L POC ABG pO2 76 L ABG pO2 ABG HCO3 ABG Base Excess ABG Hemoglobin Oxyhemoglobin Sodium Potassium Chloride Carbon Dioxide BUN Creatinine Glucose POC Glucose Lactic Acid 2.10 H* Calcium TIBC Ferritin AST ALT Alkaline Phosphatase Total Creatine Kinase CK-MB (CK-2) CK-MB (CK-2) Rel Index Troponin T Total Protein Albumin Urine WBC (Auto) Vancomycin Trough 03/14/19 03/14/19 03/14/19 12:43 13:35 15:35 WBC RBC Hgb Hct MCV MCH RDW Plt Count Lymph % (Auto) Lymph # Seg Neutrophils % Seg Neuts % (Manual) Lymphocytes % (Manual) Monocytes % (Manual) Eosinophils % (Manual) Nucleated RBC % Seg Neutrophils # Man Lymphocytes # (Manual) POC ABG pH ABG pH POC ABG pCO2 POC ABG pO2 ABG pO2 ABG HCO3 ABG Base Excess ABG Hemoglobin Oxyhemoglobin Sodium Potassium Chloride Carbon Dioxide BUN Creatinine Glucose POC Glucose 68 L Lactic Acid 2.10 H* 3.50 H* Calcium TIBC Ferritin AST ALT Alkaline Phosphatase Total Creatine Kinase CK-MB (CK-2) CK-MB (CK-2) Rel Index Troponin T Total Protein Albumin Urine WBC (Auto) Vancomycin Trough 03/14/19 03/14/19 03/14/19 17:34 17:46 17:55 WBC RBC Hgb Hct MCV MCH RDW Plt Count Lymph % (Auto) Lymph # Seg Neutrophils % Seg Neuts % (Manual) Lymphocytes % (Manual) Monocytes % (Manual) Eosinophils % (Manual) Nucleated RBC % Seg Neutrophils # Man Lymphocytes # (Manual) POC ABG pH 7.241 L 7.244 L ABG pH POC ABG pCO2 50.4 H 50.1 H POC ABG pO2 156 H ABG pO2 ABG HCO3 ABG Base Excess ABG Hemoglobin Oxyhemoglobin Sodium Potassium Chloride Carbon Dioxide BUN Creatinine Glucose POC Glucose 49 L Lactic Acid Calcium TIBC Ferritin AST ALT Alkaline Phosphatase Total Creatine Kinase CK-MB (CK-2) CK-MB (CK-2) Rel Index Troponin T Total Protein Albumin Urine WBC (Auto) Vancomycin Trough 03/14/19 03/14/19 03/14/19 18:29 18:32 20:27 WBC RBC Hgb Hct MCV MCH RDW Plt Count Lymph % (Auto) Lymph # Seg Neutrophils % Seg Neuts % (Manual) Lymphocytes % (Manual) Monocytes % (Manual) Eosinophils % (Manual) Nucleated RBC % Seg Neutrophils # Man Lymphocytes # (Manual) POC ABG pH ABG pH POC ABG pCO2 POC ABG pO2 ABG pO2 ABG HCO3 ABG Base Excess ABG Hemoglobin Oxyhemoglobin Sodium Potassium Chloride 112.6 H Carbon Dioxide 19 L BUN Creatinine 1.4 H Glucose 132 H POC Glucose 57 L 115 H Lactic Acid Calcium TIBC Ferritin AST ALT Alkaline Phosphatase Total Creatine Kinase CK-MB (CK-2) CK-MB (CK-2) Rel Index Troponin T Total Protein Albumin Urine WBC (Auto) Vancomycin Trough 03/14/19 03/14/19 03/15/19 23:47 Unknown 04:00 WBC RBC 2.77 L Hgb 8.5 L Hct 27.3 L MCV 98 H MCH RDW 23.0 H Plt Count 27 L Lymph % (Auto) Lymph # Seg Neutrophils % Seg Neuts % (Manual) 75.0 H Lymphocytes % (Manual) 1.0 L Monocytes % (Manual) Eosinophils % (Manual) Nucleated RBC % 4.0 H Seg Neutrophils # Man Lymphocytes # (Manual) 0.1 L POC ABG pH ABG pH POC ABG pCO2 POC ABG pO2 ABG pO2 ABG HCO3 ABG Base Excess ABG Hemoglobin Oxyhemoglobin Sodium Potassium Chloride Carbon Dioxide BUN Creatinine Glucose POC Glucose 116 H Lactic Acid 3.30 H* Calcium TIBC Ferritin AST ALT Alkaline Phosphatase Total Creatine Kinase CK-MB (CK-2) CK-MB (CK-2) Rel Index Troponin T Total Protein Albumin Urine WBC (Auto) Vancomycin Trough 03/15/19 03/15/19 03/15/19 04:00 06:24 07:35 WBC RBC Hgb Hct MCV MCH RDW Plt Count Lymph % (Auto) Lymph # Seg Neutrophils % Seg Neuts % (Manual) Lymphocytes % (Manual) Monocytes % (Manual) Eosinophils % (Manual) Nucleated RBC % Seg Neutrophils # Man Lymphocytes # (Manual) POC ABG pH 7.282 L ABG pH POC ABG pCO2 50.4 H POC ABG pO2 71 L ABG pO2 ABG HCO3 ABG Base Excess ABG Hemoglobin Oxyhemoglobin Sodium Potassium Chloride 112.1 H Carbon Dioxide 19 L BUN Creatinine 1.5 H Glucose 123 H POC Glucose 140 H Lactic Acid Calcium 8.2 L TIBC Ferritin AST ALT Alkaline Phosphatase Total Creatine Kinase CK-MB (CK-2) CK-MB (CK-2) Rel Index Troponin T Total Protein Albumin Urine WBC (Auto) Vancomycin Trough 03/15/19 03/15/19 03/16/19 11:47 23:25 04:33 WBC RBC Hgb Hct MCV MCH RDW Plt Count Lymph % (Auto) Lymph # Seg Neutrophils % Seg Neuts % (Manual) Lymphocytes % (Manual) Monocytes % (Manual) Eosinophils % (Manual) Nucleated RBC % Seg Neutrophils # Man Lymphocytes # (Manual) POC ABG pH ABG pH 7.304 L POC ABG pCO2 POC ABG pO2 ABG pO2 174.4 H ABG HCO3 19.2 L ABG Base Excess -6.6 L ABG Hemoglobin 8.5 L Oxyhemoglobin Sodium Potassium Chloride Carbon Dioxide BUN Creatinine Glucose POC Glucose 161 H 139 H Lactic Acid Calcium TIBC Ferritin AST ALT Alkaline Phosphatase Total Creatine Kinase CK-MB (CK-2) CK-MB (CK-2) Rel Index Troponin T Total Protein Albumin Urine WBC (Auto) Vancomycin Trough 03/16/19 03/16/19 03/16/19 05:19 05:19 05:19 WBC RBC 2.92 L Hgb 8.9 L Hct 28.0 L MCV MCH RDW 22.8 H Plt Count 42 L Lymph % (Auto) Lymph # Seg Neutrophils % Seg Neuts % (Manual) 84.0 H Lymphocytes % (Manual) 5.0 L Monocytes % (Manual) Eosinophils % (Manual) Nucleated RBC % Seg Neutrophils # Man 7.8 H Lymphocytes # (Manual) 0.5 L POC ABG pH ABG pH POC ABG pCO2 POC ABG pO2 ABG pO2 ABG HCO3 ABG Base Excess ABG Hemoglobin Oxyhemoglobin Sodium Potassium 5.2 H Chloride 114.0 H Carbon Dioxide 18 L BUN 22 H Creatinine 1.7 H Glucose 109 H POC Glucose Lactic Acid Calcium 8.0 L TIBC Ferritin AST ALT Alkaline Phosphatase Total Creatine Kinase 194 H CK-MB (CK-2) CK-MB (CK-2) Rel Index Troponin T Total Protein Albumin Urine WBC (Auto) Vancomycin Trough 03/16/19 03/16/19 03/16/19 05:51 12:19 17:42 WBC RBC Hgb Hct MCV MCH RDW Plt Count Lymph % (Auto) Lymph # Seg Neutrophils % Seg Neuts % (Manual) Lymphocytes % (Manual) Monocytes % (Manual) Eosinophils % (Manual) Nucleated RBC % Seg Neutrophils # Man Lymphocytes # (Manual) POC ABG pH ABG pH POC ABG pCO2 POC ABG pO2 ABG pO2 ABG HCO3 ABG Base Excess ABG Hemoglobin Oxyhemoglobin Sodium Potassium Chloride Carbon Dioxide BUN Creatinine Glucose POC Glucose 123 H 134 H 130 H Lactic Acid Calcium TIBC Ferritin AST ALT Alkaline Phosphatase Total Creatine Kinase CK-MB (CK-2) CK-MB (CK-2) Rel Index Troponin T Total Protein Albumin Urine WBC (Auto) Vancomycin Trough 03/17/19 03/17/19 03/17/19 00:46 04:45 04:45 WBC RBC 2.42 L Hgb 7.5 L Hct 23.4 L MCV MCH RDW 22.2 H Plt Count 37 L Lymph % (Auto) 6.2 L Lymph # 0.5 L Seg Neutrophils % 84.0 H Seg Neuts % (Manual) Lymphocytes % (Manual) Monocytes % (Manual) Eosinophils % (Manual) Nucleated RBC % Seg Neutrophils # Man Lymphocytes # (Manual) POC ABG pH ABG pH POC ABG pCO2 POC ABG pO2 ABG pO2 ABG HCO3 ABG Base Excess ABG Hemoglobin Oxyhemoglobin Sodium Potassium Chloride 115.4 H Carbon Dioxide 16 L BUN 27 H Creatinine 1.8 H Glucose 109 H POC Glucose 115 H Lactic Acid Calcium 7.9 L TIBC Ferritin AST ALT Alkaline Phosphatase Total Creatine Kinase CK-MB (CK-2) CK-MB (CK-2) Rel Index Troponin T Total Protein Albumin Urine WBC (Auto) Vancomycin Trough 03/17/19 03/17/19 03/17/19 05:00 06:05 11:15 WBC RBC Hgb Hct MCV MCH RDW Plt Count Lymph % (Auto) Lymph # Seg Neutrophils % Seg Neuts % (Manual) Lymphocytes % (Manual) Monocytes % (Manual) Eosinophils % (Manual) Nucleated RBC % Seg Neutrophils # Man Lymphocytes # (Manual) POC ABG pH ABG pH 7.238 L POC ABG pCO2 POC ABG pO2 ABG pO2 114.7 H ABG HCO3 17.9 L ABG Base Excess -8.8 L ABG Hemoglobin 7.3 L Oxyhemoglobin Sodium Potassium Chloride Carbon Dioxide BUN Creatinine Glucose POC Glucose 124 H Lactic Acid Calcium TIBC 127 L Ferritin AST ALT Alkaline Phosphatase Total Creatine Kinase CK-MB (CK-2) CK-MB (CK-2) Rel Index Troponin T Total Protein Albumin Urine WBC (Auto) Vancomycin Trough 03/17/19 03/17/19 03/17/19 11:15 12:06 18:27 WBC RBC Hgb Hct MCV MCH RDW Plt Count Lymph % (Auto) Lymph # Seg Neutrophils % Seg Neuts % (Manual) Lymphocytes % (Manual) Monocytes % (Manual) Eosinophils % (Manual) Nucleated RBC % Seg Neutrophils # Man Lymphocytes # (Manual) POC ABG pH ABG pH POC ABG pCO2 POC ABG pO2 ABG pO2 ABG HCO3 ABG Base Excess ABG Hemoglobin Oxyhemoglobin Sodium Potassium Chloride Carbon Dioxide BUN Creatinine Glucose POC Glucose 133 H 158 H Lactic Acid Calcium TIBC Ferritin 512.4 H AST ALT Alkaline Phosphatase Total Creatine Kinase CK-MB (CK-2) CK-MB (CK-2) Rel Index Troponin T Total Protein Albumin Urine WBC (Auto) Vancomycin Trough 03/17/19 03/18/19 03/18/19 23:30 04:00 05:45 WBC RBC 2.31 L Hgb 7.0 L Hct 22.0 L MCV MCH RDW 22.2 H Plt Count 45 L Lymph % (Auto) Lymph # Seg Neutrophils % Seg Neuts % (Manual) 82.0 H Lymphocytes % (Manual) 12.0 L Monocytes % (Manual) Eosinophils % (Manual) 5.0 H Nucleated RBC % 1.0 H Seg Neutrophils # Man Lymphocytes # (Manual) 0.8 L POC ABG pH ABG pH POC ABG pCO2 POC ABG pO2 ABG pO2 113.7 H ABG HCO3 ABG Base Excess -3.0 L ABG Hemoglobin 7.0 L Oxyhemoglobin Sodium Potassium Chloride Carbon Dioxide BUN Creatinine Glucose POC Glucose 143 H Lactic Acid Calcium TIBC Ferritin AST ALT Alkaline Phosphatase Total Creatine Kinase CK-MB (CK-2) CK-MB (CK-2) Rel Index Troponin T Total Protein Albumin Urine WBC (Auto) Vancomycin Trough 03/18/19 03/18/19 03/18/19 05:48 05:50 14:01 WBC RBC Hgb Hct MCV MCH RDW Plt Count Lymph % (Auto) Lymph # Seg Neutrophils % Seg Neuts % (Manual) Lymphocytes % (Manual) Monocytes % (Manual) Eosinophils % (Manual) Nucleated RBC % Seg Neutrophils # Man Lymphocytes # (Manual) POC ABG pH 7.299 L ABG pH POC ABG pCO2 48.7 H POC ABG pO2 ABG pO2 ABG HCO3 ABG Base Excess ABG Hemoglobin Oxyhemoglobin Sodium Potassium Chloride 109.9 H Carbon Dioxide BUN 28 H Creatinine 1.5 H Glucose 128 H POC Glucose 118 H Lactic Acid Calcium 7.6 L TIBC Ferritin AST ALT Alkaline Phosphatase Total Creatine Kinase CK-MB (CK-2) CK-MB (CK-2) Rel Index Troponin T Total Protein Albumin Urine WBC (Auto) Vancomycin Trough 03/18/19 03/19/19 03/19/19 23:53 04:43 06:02 WBC RBC Hgb Hct MCV MCH RDW Plt Count Lymph % (Auto) Lymph # Seg Neutrophils % Seg Neuts % (Manual) Lymphocytes % (Manual) Monocytes % (Manual) Eosinophils % (Manual) Nucleated RBC % Seg Neutrophils # Man Lymphocytes # (Manual) POC ABG pH ABG pH 7.332 L POC ABG pCO2 POC ABG pO2 ABG pO2 116.2 H ABG HCO3 ABG Base Excess -3.3 L ABG Hemoglobin 7.3 L Oxyhemoglobin 94.9 L Sodium Potassium Chloride Carbon Dioxide BUN Creatinine Glucose POC Glucose 130 H 122 H Lactic Acid Calcium TIBC Ferritin AST ALT Alkaline Phosphatase Total Creatine Kinase CK-MB (CK-2) CK-MB (CK-2) Rel Index Troponin T Total Protein Albumin Urine WBC (Auto) Vancomycin Trough 03/19/19 03/19/19 03/19/19 12:16 15:33 23:44 WBC RBC Hgb Hct MCV MCH RDW Plt Count Lymph % (Auto) Lymph # Seg Neutrophils % Seg Neuts % (Manual) Lymphocytes % (Manual) Monocytes % (Manual) Eosinophils % (Manual) Nucleated RBC % Seg Neutrophils # Man Lymphocytes # (Manual) POC ABG pH 7.316 L ABG pH POC ABG pCO2 45.7 H POC ABG pO2 ABG pO2 ABG HCO3 ABG Base Excess ABG Hemoglobin Oxyhemoglobin Sodium Potassium Chloride Carbon Dioxide BUN Creatinine Glucose POC Glucose 132 H 106 H Lactic Acid Calcium TIBC Ferritin AST ALT Alkaline Phosphatase Total Creatine Kinase CK-MB (CK-2) CK-MB (CK-2) Rel Index Troponin T Total Protein Albumin Urine WBC (Auto) Vancomycin Trough 03/20/19 03/20/19 03/20/19 01:00 EST 04:27 12:06 WBC RBC Hgb Hct MCV MCH RDW Plt Count Lymph % (Auto) Lymph # Seg Neutrophils % Seg Neuts % (Manual) Lymphocytes % (Manual) Monocytes % (Manual) Eosinophils % (Manual) Nucleated RBC % Seg Neutrophils # Man Lymphocytes # (Manual) POC ABG pH ABG pH POC ABG pCO2 POC ABG pO2 ABG pO2 121.6 H ABG HCO3 ABG Base Excess ABG Hemoglobin 7.1 L Oxyhemoglobin Sodium Potassium 3.4 L Chloride 111.7 H Carbon Dioxide BUN 29 H Creatinine Glucose POC Glucose 134 H Lactic Acid Calcium 8.0 L TIBC Ferritin AST ALT Alkaline Phosphatase Total Creatine Kinase CK-MB (CK-2) CK-MB (CK-2) Rel Index Troponin T Total Protein Albumin Urine WBC (Auto) Vancomycin Trough 03/20/19 03/20/19 03/21/19 18:09 23:36 05:42 WBC RBC Hgb Hct MCV MCH RDW Plt Count Lymph % (Auto) Lymph # Seg Neutrophils % Seg Neuts % (Manual) Lymphocytes % (Manual) Monocytes % (Manual) Eosinophils % (Manual) Nucleated RBC % Seg Neutrophils # Man Lymphocytes # (Manual) POC ABG pH ABG pH POC ABG pCO2 POC ABG pO2 ABG pO2 ABG HCO3 ABG Base Excess ABG Hemoglobin Oxyhemoglobin Sodium Potassium Chloride Carbon Dioxide BUN Creatinine Glucose POC Glucose 133 H 114 H 116 H Lactic Acid Calcium TIBC Ferritin AST ALT Alkaline Phosphatase Total Creatine Kinase CK-MB (CK-2) CK-MB (CK-2) Rel Index Troponin T Total Protein Albumin Urine WBC (Auto) Vancomycin Trough 03/21/19 03/21/19 03/21/19 08:12 14:09 17:51 WBC 3.9 L RBC 2.25 L Hgb 7.1 L Hct 21.6 L MCV MCH RDW 21.6 H Plt Count 105 L Lymph % (Auto) Lymph # Seg Neutrophils % Seg Neuts % (Manual) Lymphocytes % (Manual) 13.0 L Monocytes % (Manual) 13.0 H Eosinophils % (Manual) Nucleated RBC % Seg Neutrophils # Man Lymphocytes # (Manual) 0.5 L POC ABG pH ABG pH POC ABG pCO2 POC ABG pO2 120 H ABG pO2 ABG HCO3 ABG Base Excess ABG Hemoglobin Oxyhemoglobin Sodium Potassium Chloride Carbon Dioxide BUN Creatinine Glucose POC Glucose 145 H Lactic Acid Calcium TIBC Ferritin AST ALT Alkaline Phosphatase Total Creatine Kinase CK-MB (CK-2) CK-MB (CK-2) Rel Index Troponin T Total Protein Albumin Urine WBC (Auto) Vancomycin Trough 03/22/19 03/22/19 03/22/19 05:36 11:10 11:39 WBC RBC Hgb Hct MCV MCH RDW Plt Count Lymph % (Auto) Lymph # Seg Neutrophils % Seg Neuts % (Manual) Lymphocytes % (Manual) Monocytes % (Manual) Eosinophils % (Manual) Nucleated RBC % Seg Neutrophils # Man Lymphocytes # (Manual) POC ABG pH ABG pH POC ABG pCO2 POC ABG pO2 ABG pO2 ABG HCO3 ABG Base Excess ABG Hemoglobin Oxyhemoglobin Sodium 149 H Potassium Chloride 115.6 H Carbon Dioxide BUN 20 H Creatinine Glucose 109 H POC Glucose 106 H 124 H Lactic Acid Calcium TIBC Ferritin AST ALT Alkaline Phosphatase Total Creatine Kinase CK-MB (CK-2) CK-MB (CK-2) Rel Index Troponin T Total Protein Albumin Urine WBC (Auto) Vancomycin Trough 03/22/19 03/22/19 03/22/19 12:04 18:36 Unknown WBC 4.2 L RBC 2.45 L Hgb 7.6 L Hct 23.9 L MCV 98 H MCH RDW 22.2 H Plt Count Lymph % (Auto) Lymph # Seg Neutrophils % Seg Neuts % (Manual) Lymphocytes % (Manual) Monocytes % (Manual) Eosinophils % (Manual) Nucleated RBC % Seg Neutrophils # Man Lymphocytes # (Manual) POC ABG pH 7.285 L ABG pH POC ABG pCO2 55.4 H POC ABG pO2 ABG pO2 ABG HCO3 ABG Base Excess ABG Hemoglobin Oxyhemoglobin Sodium Potassium Chloride Carbon Dioxide BUN Creatinine Glucose POC Glucose 120 H Lactic Acid Calcium TIBC Ferritin AST ALT Alkaline Phosphatase Total Creatine Kinase CK-MB (CK-2) CK-MB (CK-2) Rel Index Troponin T Total Protein Albumin Urine WBC (Auto) Vancomycin Trough 03/23/19 03/23/19 03/23/19 04:37 05:12 05:30 WBC 4.2 L RBC 2.22 L Hgb 7.0 L Hct 21.4 L MCV MCH RDW 21.5 H Plt Count Lymph % (Auto) Lymph # Seg Neutrophils % Seg Neuts % (Manual) Lymphocytes % (Manual) Monocytes % (Manual) Eosinophils % (Manual) Nucleated RBC % Seg Neutrophils # Man Lymphocytes # (Manual) POC ABG pH 7.500 H ABG pH POC ABG pCO2 POC ABG pO2 60 L ABG pO2 ABG HCO3 ABG Base Excess ABG Hemoglobin Oxyhemoglobin Sodium Potassium Chloride Carbon Dioxide BUN Creatinine Glucose POC Glucose 106 H Lactic Acid Calcium TIBC Ferritin AST ALT Alkaline Phosphatase Total Creatine Kinase CK-MB (CK-2) CK-MB (CK-2) Rel Index Troponin T Total Protein Albumin Urine WBC (Auto) Vancomycin Trough 03/23/19 03/23/19 03/23/19 05:30 11:50 18:11 WBC RBC Hgb Hct MCV MCH RDW Plt Count Lymph % (Auto) Lymph # Seg Neutrophils % Seg Neuts % (Manual) Lymphocytes % (Manual) Monocytes % (Manual) Eosinophils % (Manual) Nucleated RBC % Seg Neutrophils # Man Lymphocytes # (Manual) POC ABG pH ABG pH POC ABG pCO2 POC ABG pO2 ABG pO2 ABG HCO3 ABG Base Excess ABG Hemoglobin Oxyhemoglobin Sodium 149 H Potassium Chloride 114.7 H Carbon Dioxide BUN 19 H Creatinine Glucose POC Glucose 118 H 107 H Lactic Acid Calcium 8.3 L TIBC Ferritin AST ALT Alkaline Phosphatase Total Creatine Kinase CK-MB (CK-2) CK-MB (CK-2) Rel Index Troponin T Total Protein Albumin Urine WBC (Auto) Vancomycin Trough 03/23/19 03/24/19 03/24/19 23:23 04:36 04:42 WBC 4.0 L RBC 2.46 L Hgb 7.9 L Hct 24.4 L MCV 99 H MCH RDW 23.5 H Plt Count Lymph % (Auto) Lymph # Seg Neutrophils % Seg Neuts % (Manual) Lymphocytes % (Manual) Monocytes % (Manual) Eosinophils % (Manual) Nucleated RBC % Seg Neutrophils # Man Lymphocytes # (Manual) POC ABG pH ABG pH POC ABG pCO2 POC ABG pO2 ABG pO2 104.6 H ABG HCO3 ABG Base Excess ABG Hemoglobin 7.1 L Oxyhemoglobin Sodium Potassium Chloride Carbon Dioxide BUN Creatinine Glucose POC Glucose 112 H Lactic Acid Calcium TIBC Ferritin AST ALT Alkaline Phosphatase Total Creatine Kinase CK-MB (CK-2) CK-MB (CK-2) Rel Index Troponin T Total Protein Albumin Urine WBC (Auto) Vancomycin Trough 03/24/19 03/24/19 03/24/19 04:42 06:03 12:24 WBC RBC Hgb Hct MCV MCH RDW Plt Count Lymph % (Auto) Lymph # Seg Neutrophils % Seg Neuts % (Manual) Lymphocytes % (Manual) Monocytes % (Manual) Eosinophils % (Manual) Nucleated RBC % Seg Neutrophils # Man Lymphocytes # (Manual) POC ABG pH ABG pH POC ABG pCO2 POC ABG pO2 ABG pO2 ABG HCO3 ABG Base Excess ABG Hemoglobin Oxyhemoglobin Sodium 149 H Potassium Chloride 115.7 H Carbon Dioxide BUN 18 H Creatinine Glucose 128 H POC Glucose 136 H 137 H Lactic Acid Calcium 8.3 L TIBC Ferritin AST ALT Alkaline Phosphatase Total Creatine Kinase CK-MB (CK-2) CK-MB (CK-2) Rel Index Troponin T Total Protein Albumin Urine WBC (Auto) Vancomycin Trough 03/24/19 03/24/19 03/25/19 17:48 23:51 04:45 WBC RBC 2.35 L Hgb 7.5 L Hct 23.4 L MCV 100 H MCH RDW 24.7 H Plt Count Lymph % (Auto) Lymph # Seg Neutrophils % Seg Neuts % (Manual) Lymphocytes % (Manual) Monocytes % (Manual) Eosinophils % (Manual) Nucleated RBC % Seg Neutrophils # Man Lymphocytes # (Manual) POC ABG pH ABG pH POC ABG pCO2 POC ABG pO2 ABG pO2 ABG HCO3 ABG Base Excess ABG Hemoglobin Oxyhemoglobin Sodium Potassium Chloride Carbon Dioxide BUN Creatinine Glucose POC Glucose 139 H 131 H Lactic Acid Calcium TIBC Ferritin AST ALT Alkaline Phosphatase Total Creatine Kinase CK-MB (CK-2) CK-MB (CK-2) Rel Index Troponin T Total Protein Albumin Urine WBC (Auto) Vancomycin Trough 03/25/19 03/25/19 03/25/19 04:45 05:33 18:21 WBC RBC Hgb Hct MCV MCH RDW Plt Count Lymph % (Auto) Lymph # Seg Neutrophils % Seg Neuts % (Manual) Lymphocytes % (Manual) Monocytes % (Manual) Eosinophils % (Manual) Nucleated RBC % Seg Neutrophils # Man Lymphocytes # (Manual) POC ABG pH ABG pH POC ABG pCO2 POC ABG pO2 ABG pO2 ABG HCO3 ABG Base Excess ABG Hemoglobin Oxyhemoglobin Sodium 146 H Potassium Chloride 114.1 H Carbon Dioxide BUN Creatinine Glucose 117 H POC Glucose 129 H 120 H Lactic Acid Calcium TIBC Ferritin AST ALT Alkaline Phosphatase Total Creatine Kinase CK-MB (CK-2) CK-MB (CK-2) Rel Index Troponin T Total Protein Albumin Urine WBC (Auto) Vancomycin Trough 03/26/19 03/26/19 03/26/19 04:40 06:50 16:18 WBC 4.1 L RBC 2.35 L Hgb 7.5 L Hct 23.4 L MCV 100 H MCH RDW 25.1 H Plt Count Lymph % (Auto) Lymph # Seg Neutrophils % Seg Neuts % (Manual) Lymphocytes % (Manual) Monocytes % (Manual) Eosinophils % (Manual) Nucleated RBC % Seg Neutrophils # Man Lymphocytes # (Manual) POC ABG pH ABG pH POC ABG pCO2 POC ABG pO2 ABG pO2 ABG HCO3 ABG Base Excess ABG Hemoglobin Oxyhemoglobin Sodium Potassium Chloride 113.9 H Carbon Dioxide BUN Creatinine Glucose POC Glucose 115 H Lactic Acid Calcium TIBC Ferritin AST ALT Alkaline Phosphatase Total Creatine Kinase CK-MB (CK-2) CK-MB (CK-2) Rel Index Troponin T Total Protein Albumin Urine WBC (Auto) Vancomycin Trough 03/26/19 03/27/19 03/27/19 18:06 01:57 05:27 WBC 2.9 L RBC 2.52 L Hgb 8.1 L Hct 25.1 L MCV 100 H MCH RDW 24.7 H Plt Count Lymph % (Auto) Lymph # Seg Neutrophils % Seg Neuts % (Manual) Lymphocytes % (Manual) Monocytes % (Manual) Eosinophils % (Manual) Nucleated RBC % Seg Neutrophils # Man Lymphocytes # (Manual) POC ABG pH ABG pH POC ABG pCO2 POC ABG pO2 ABG pO2 ABG HCO3 ABG Base Excess ABG Hemoglobin Oxyhemoglobin Sodium Potassium Chloride Carbon Dioxide BUN Creatinine Glucose POC Glucose 121 H 130 H Lactic Acid Calcium TIBC Ferritin AST ALT Alkaline Phosphatase Total Creatine Kinase CK-MB (CK-2) CK-MB (CK-2) Rel Index Troponin T Total Protein Albumin Urine WBC (Auto) Vancomycin Trough 03/27/19 03/27/19 03/27/19 05:27 18:49 23:53 WBC RBC Hgb Hct MCV MCH RDW Plt Count Lymph % (Auto) Lymph # Seg Neutrophils % Seg Neuts % (Manual) Lymphocytes % (Manual) Monocytes % (Manual) Eosinophils % (Manual) Nucleated RBC % Seg Neutrophils # Man Lymphocytes # (Manual) POC ABG pH ABG pH POC ABG pCO2 POC ABG pO2 ABG pO2 ABG HCO3 ABG Base Excess ABG Hemoglobin Oxyhemoglobin Sodium 148 H Potassium Chloride 114.5 H Carbon Dioxide BUN Creatinine 0.6 L Glucose 109 H POC Glucose 131 H 115 H Lactic Acid Calcium TIBC Ferritin AST ALT Alkaline Phosphatase Total Creatine Kinase CK-MB (CK-2) CK-MB (CK-2) Rel Index Troponin T Total Protein Albumin Urine WBC (Auto) Vancomycin Trough 03/28/19 03/28/19 03/28/19 04:53 04:53 19:20 WBC 3.2 L RBC 2.41 L Hgb 7.7 L Hct 24.3 L MCV 101 H MCH RDW 25.4 H Plt Count Lymph % (Auto) Lymph # Seg Neutrophils % Seg Neuts % (Manual) Lymphocytes % (Manual) Monocytes % (Manual) Eosinophils % (Manual) Nucleated RBC % Seg Neutrophils # Man Lymphocytes # (Manual) POC ABG pH ABG pH POC ABG pCO2 POC ABG pO2 ABG pO2 ABG HCO3 ABG Base Excess ABG Hemoglobin Oxyhemoglobin Sodium 149 H Potassium Chloride 114.6 H Carbon Dioxide BUN Creatinine 0.5 L Glucose POC Glucose 109 H Lactic Acid Calcium TIBC Ferritin AST ALT Alkaline Phosphatase Total Creatine Kinase CK-MB (CK-2) CK-MB (CK-2) Rel Index Troponin T Total Protein Albumin Urine WBC (Auto) Vancomycin Trough 03/28/19 03/29/19 03/29/19 23:59 05:00 05:00 WBC 4.0 L RBC 2.60 L Hgb 8.5 L Hct 26.4 L MCV 101 H MCH 33 H RDW 25.4 H Plt Count Lymph % (Auto) Lymph # Seg Neutrophils % Seg Neuts % (Manual) Lymphocytes % (Manual) Monocytes % (Manual) Eosinophils % (Manual) Nucleated RBC % Seg Neutrophils # Man Lymphocytes # (Manual) POC ABG pH ABG pH POC ABG pCO2 POC ABG pO2 ABG pO2 ABG HCO3 ABG Base Excess ABG Hemoglobin Oxyhemoglobin Sodium 148 H Potassium Chloride 111.8 H Carbon Dioxide BUN Creatinine 0.6 L Glucose POC Glucose 108 H Lactic Acid Calcium TIBC Ferritin AST ALT Alkaline Phosphatase Total Creatine Kinase CK-MB (CK-2) CK-MB (CK-2) Rel Index Troponin T Total Protein Albumin Urine WBC (Auto) Vancomycin Trough 03/29/19 03/29/19 03/30/19 18:30 23:16 17:50 WBC RBC Hgb Hct MCV MCH RDW Plt Count Lymph % (Auto) Lymph # Seg Neutrophils % Seg Neuts % (Manual) Lymphocytes % (Manual) Monocytes % (Manual) Eosinophils % (Manual) Nucleated RBC % Seg Neutrophils # Man Lymphocytes # (Manual) POC ABG pH ABG pH POC ABG pCO2 POC ABG pO2 ABG pO2 ABG HCO3 ABG Base Excess ABG Hemoglobin Oxyhemoglobin Sodium Potassium Chloride Carbon Dioxide BUN Creatinine Glucose POC Glucose 121 H 122 H 64 L Lactic Acid Calcium TIBC Ferritin AST ALT Alkaline Phosphatase Total Creatine Kinase CK-MB (CK-2) CK-MB (CK-2) Rel Index Troponin T Total Protein Albumin Urine WBC (Auto) Vancomycin Trough 03/31/19 05:37 WBC RBC Hgb Hct MCV MCH RDW Plt Count Lymph % (Auto) Lymph # Seg Neutrophils % Seg Neuts % (Manual) Lymphocytes % (Manual) Monocytes % (Manual) Eosinophils % (Manual) Nucleated RBC % Seg Neutrophils # Man Lymphocytes # (Manual) POC ABG pH ABG pH POC ABG pCO2 POC ABG pO2 ABG pO2 ABG HCO3 ABG Base Excess ABG Hemoglobin Oxyhemoglobin Sodium Potassium Chloride Carbon Dioxide BUN Creatinine Glucose POC Glucose 133 H Lactic Acid Calcium TIBC Ferritin AST ALT Alkaline Phosphatase Total Creatine Kinase CK-MB (CK-2) CK-MB (CK-2) Rel Index Troponin T Total Protein Albumin Urine WBC (Auto) Vancomycin Trough Allied health notes reviewed: nursing
[2019-03-31] MEDS: ENOXAPARIN 40 MG/0.4 ML INJ SUB-Q SCH (10:26)
[2019-03-31] MEDS: FLUTICASONE PROPIONATE NASAL SPRAY 16 GM NS SCH (10:27)
[2019-03-31] MEDS: RIFAXIMIN 550 MG TAB PO SCH (10:27)
[2019-03-31] MEDS: FOLIC ACID 1 MG TAB PO SCH (10:27)
[2019-03-31] MEDS: FAMOTIDINE 20 MG TAB PO SCH (10:27)
[2019-03-31] MEDS: THIAMINE 100 MG TAB PO SCH (10:27)
--- NOTE | 2019-03-31 10:45 | Discharge Summary ---
<KASHIFALLEN MCKEONHI - Last Filed: 03/31/19 12:08> Providers - Providers Date of Admission: 03/10/19 17:46 Attending physician: MARIE CMAPBELL MD 03/10/19 17:56 Consult to Physician [CONS] Routine Comment: called office/ marisa Consulting Provider: OMARI HULL Physician Instructions: Reason For Exam: pancytopenia 03/10/19 22:27 Consult to Dietitian/Nutrition [CONS] Routine Physician Instructions: Reason For Exam: Reason for Consult: Poor oral intake 03/11/19 08:53 Physical Therapy Evaluation and Treat [CONS] Routine Comment: Reason For Exam: Weakness 03/12/19 10:50 Consult to Dietitian/Nutrition [CONS] Routine Physician Instructions: Reason For Exam: Reason for Consult: Write/Manage Tube Feeding 03/13/19 12:16 Consult to Physician [CONS] Urgent Comment: called answ. serv./ marisa Consulting Provider: JONAH ASIF Physician Instructions: Reason For Exam: VRE UTI 03/14/19 06:51 Consult to Dietitian/Nutrition [CONS] Routine Physician Instructions: Reason For Exam: Reason for Consult: Evaluate nutritional intake 03/14/19 07:31 Consult to Physician [CONS] Routine Comment: Consulting Provider: WAYNE ABDI Physician Instructions: Reason For Exam: MECHANICAL VENT. 03/14/19 08:20 Consult to Physician [CONS] Routine Comment: Consulting Provider: GIOVANNY LAL Physician Instructions: Reason For Exam: ICU admission 03/14/19 08:21 Consult to PICC Line RN [CONS] Routine Reason For Exam: midline Type Line:: Midline 03/15/19 16:30 Consult to Physician [CONS] Routine Comment: Consulting Provider: OMARI HULL Physician Instructions: Reason For Exam: thrombocytepenia 03/23/19 10:32 Consult to Wound/ET Nurse [CONS] Routine Reason For Exam: wound eval 03/25/19 10:32 Consult to Physician [CONS] Routine Comment: Consulting Provider: EBER CROWE Physician Instructions: Patient needs trach/PEG. Discussed with family Reason For Exam: Trach and PEG placement 03/30/19 09:48 Occupational Therapy Evaluate and Treat [CONS] Routine Comment: Reason For Exam: critical illness myopathy Physical Therapy Evaluation and Treat [CONS] Routine Comment: Reason For Exam: critical ill myopathy Primary care physician: ENEDINA BENNETT Hospitalization Condition: Fair Disposition: DC/[place]-63 MEDICARE CERT LTCH Exam - Constitutional Vitals: Temp Pulse Resp BP Pulse Ox 98.4 F 103 H 23 187/108 100 03/31/19 08:00 03/31/19 11:05 03/31/19 10:00 03/31/19 11:05 03/31/19 11:05 Plan Additional Instructions: DC TRACHEOSTOMY SUTURES ON Thursday04/04/19 Follow up with: ENEDINA BENNETT DO [Primary Care Provider] - 7 Days OMARI HULL MD [Staff Physician] - 7 Days WAYNE ABDI MD [Staff Physician] - 7 Days <MARIE CAMPBELL - Last Filed: 04/27/19 08:21> Providers - Providers Date of Admission: 03/10/19 17:46 Attending physician: MARIE CAMPBELL MD 03/10/19 17:56 Consult to Physician [CONS] Routine Comment: called office/ marisa Consulting Provider: OMARI HULL Physician Instructions: Reason For Exam: pancytopenia 03/10/19 22:27 Consult to Dietitian/Nutrition [CONS] Routine Physician Instructions: Reason For Exam: Reason for Consult: Poor oral intake 03/11/19 08:53 Physical Therapy Evaluation and Treat [CONS] Routine Comment: Reason For Exam: Weakness 03/12/19 10:50 Consult to Dietitian/Nutrition [CONS] Routine Physician Instructions: Reason For Exam: Reason for Consult: Write/Manage Tube Feeding 03/13/19 12:16 Consult to Physician [CONS] Urgent Comment: called answ. serv./ marisa Consulting Provider: JONAH ASIF Physician Instructions: Reason For Exam: VRE UTI 03/14/19 06:51 Consult to Dietitian/Nutrition [CONS] Routine Physician Instructions: Reason For Exam: Reason for Consult: Evaluate nutritional intake 03/14/19 07:31 Consult to Physician [CONS] Routine Comment: Consulting Provider: WAYNE ABDI Physician Instructions: Reason For Exam: MECHANICAL VENT. 03/14/19 08:20 Consult to Physician [CONS] Routine Comment: Consulting Provider: GIOVANNY LAL Physician Instructions: Reason For Exam: ICU admission 03/14/19 08:21 Consult to PICC Line RN [CONS] Routine Reason For Exam: midline Type Line:: Midline 03/15/19 16:30 Consult to Physician [CONS] Routine Comment: Consulting Provider: OMARI HULL Physician Instructions: Reason For Exam: thrombocytepenia 03/23/19 10:32 Consult to Wound/ET Nurse [CONS] Routine Reason For Exam: wound eval 03/25/19 10:32 Consult to Physician [CONS] Routine Comment: Consulting Provider: EBER CROWE Physician Instructions: Patient needs trach/PEG. 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 Septic shock/Aspiration pneumonia: treated with antibiotics, ID consult appreciated KERRI/CKD 3 is due to ATN and vasomotor nephropathy: -monitor cr level, stable and improved VRE UTI, septic shock, sepsis POA: resolved abx per ID, off vasopressors since 03/17/19, still in contact isolation for VRE Thrombocytopenia: likely 2/2 sepsis, stable Acute Metabolic encephalopathy with agitation: Probably due to the acute infection Acute on chronic Pancytopenia: continue to monitor levels, Oncology consulted Hypernatremia: probably 2/2 dehydration- improved on IV D5W- monitor BMP closely, continue free water flushes Hyperkalemia: s/p kayexalate, resolved Hypoglycemia: On hypoglycemic protocol H/o Chronic liver disease: treated with lactulose and rifaximin Nutrition: Continue tube feeding S/P CARDIAC ARREST-ASystole with ROSC DVT prophylaxis: On sq lovenox Patient was transfered to LTAC for continued care and vent weaning. Prognosis is guarded/poor Mobility and offloading to avoid pressure ulcer CODE STATUS: FULL CODE Time spent for discharge: 35 MINS Core Measure Documentation - Palliative Care Palliative Care/ Comfort Measures: Not Applicable - Core Measures Any of the following diagnoses?: none Exam - Physical Exam Narrative exam: Gen: critically ill, awake, eyes open, intubated not sedated on PS- controlled HEENT: NCAT, EOMI, PERRL, trach in place. Peg inplace. No overt drainage Neck: supple, no adenopathy, no thyromegaly, no JVD CVS/Heart: RRR, normal S1S2, pulses present bilaterally Chest/Lungs: Symmetrical chest expansion, good air entry bilaterally GI/Abdomen: soft, NTND, good bowel sounds, no guarding or rebound /Bladder: no suprapubic tenderness, no CVA or paraspinal tenderness Extermity/Skin: right neck IJ TLC MSK: sFROM x 4 Neuro: CN 2-12 grossly intact, doesn't follow commands Psych: calm - Constitutional Vitals: Temp Pulse Resp BP Pulse Ox 98.4 F 95 H 25 H 157/101 98 03/31/19 08:00 03/31/19 09:08 03/31/19 09:08 03/31/19 09:08 03/31/19 09:08
--- NOTE | 2019-03-31 11:00 | Anesthesia Day of Surgery ---
Anesthesia Day of Surgery - Day of Surgery Patient Examined: Yes (late entry for anesthetic performed on 03/30/19) Patient H&P Reviewed: Yes Patient is NPO: Yes
--- NOTE | 2019-03-31 11:01 | Post Anesthesia Evaluation ---
- Post Anesthesia Evaluation Patient Participated: No Airway Patent: Yes Stable Respiratory Function: Yes Nausea/Vomiting: No Temp > 96.8F: Yes Pain Manageable: Yes Adequeate Hydration: Yes Anesthesia Complications: No Patient on Ventilator: Yes (returned to pre-procedure vent settings immediately post-procedure)
[2019-03-31] MEDS: MORPHINE 2 MG/1 ML INJ IV PRN (11:40)
--- NOTE | 2019-03-31 12:08 | Progress Note ---
Assessment and Plan 68 yo F s/p percutaneous tracheostomy, PEG tube placement, fiberoptic bronchoscopy, POD 1 1. vent management per CCU team 2. continue TF at goal 3. dc trach sutures on Wednesday 04/04 4. will s/o Thank you, please call with questions. Subjective Date of service: 03/31/19 Narrative: Pt seen and examined. Denies pain. No overnight events. Tolerating TF via PEG. Objective Vital Signs - 12hr 03/31/19 03/31/19 03/31/19 00:17 01:00 02:00 Temperature Pulse Rate 64 84 77 Pulse Rate [ Anterior Throughout] Pulse Rate [ From Monitor] Respiratory 12 12 Rate Respiratory Rate [Anterior Throughout] Blood Pressure 145/79 135/82 143/83 O2 Sat by Pulse 100 98 100 Oximetry 03/31/19 03/31/19 03/31/19 02:30 03:00 03:56 Temperature Pulse Rate 99 H 88 Pulse Rate [ 75 Anterior Throughout] Pulse Rate [ From Monitor] Respiratory 4 L Rate Respiratory 12 Rate [Anterior Throughout] Blood Pressure 143/81 O2 Sat by Pulse 98 Oximetry 03/31/19 03/31/19 03/31/19 04:00 05:00 05:24 Temperature 97.6 F Pulse Rate 89 89 98 H Pulse Rate [ Anterior Throughout] Pulse Rate [ 88 From Monitor] Respiratory 13 12 Rate Respiratory Rate [Anterior Throughout] Blood Pressure 138/80 155/87 155/87 O2 Sat by Pulse 100 100 100 Oximetry 03/31/19 03/31/19 03/31/19 06:00 07:01 08:00 Temperature 98.4 F Pulse Rate 105 H 102 H 94 H Pulse Rate [ Anterior Throughout] Pulse Rate [ From Monitor] Respiratory 17 20 15 Rate Respiratory Rate [Anterior Throughout] Blood Pressure 150/90 150/87 151/94 O2 Sat by Pulse 99 94 100 Oximetry 03/31/19 03/31/19 03/31/19 08:56 08:59 09:00 Temperature Pulse Rate 95 H 93 H Pulse Rate [ 94 H Anterior Throughout] Pulse Rate [ From Monitor] Respiratory 17 Rate Respiratory 17 Rate [Anterior Throughout] Blood Pressure 162/97 168/99 O2 Sat by Pulse 100 100 Oximetry 03/31/19 03/31/19 03/31/19 09:08 10:00 11:05 Temperature Pulse Rate 95 H 92 H 103 H Pulse Rate [ Anterior Throughout] Pulse Rate [ From Monitor] Respiratory 25 H 23 Rate Respiratory Rate [Anterior Throughout] Blood Pressure 157/101 161/95 187/108 O2 Sat by Pulse 98 100 100 Oximetry - General physical appearance Narrative Exam: Gen: Opens eyes to name, following commands ENT: tracheostomy in place, site c/d/i. No hematoma or bleeding CV: s1, S2+ Resp: on vent Abd: soft, NT, ND. PEG tube in place with bumper at 4cm at the skin. TF running. No bleeding. NO r/r/g Ext: no c/c/e - Labs 03/29/19 05:00 03/29/19 05:00
[2019-03-31] MEDS ORDERED: FUROSEMIDE 20 MG/2 ML INJ IV SCH (13:00)
[2019-03-31 19:19] VITALS: BP 175/97
== END 2019-03-31 20:40 | DRG 4 ==
LOC: ED 13:00 → 2B-ACE 17:46 → CC1 03-14 08:21
PROVIDERS: ADMIT Internal Medicine; ATTEND Internal Medicine
PROC: 5A1955Z Respiratory Ventilation, Greater than 96 Consecutive Hours (ICD-10-PCS; principal; 2019-03-14)
PROC: 0BH17EZ Insertion of Endotracheal Airway into Trachea, Via Natural or Artificial Opening (ICD-10-PCS; 2019-03-14)
PROC: 4A033R1 Measurement of Arterial Saturation, Peripheral, Percutaneous Approach (ICD-10-PCS; 2019-03-14)
PROC: 05HY33Z Insertion of Infusion Device into Upper Vein, Percutaneous Approach (ICD-10-PCS; 2019-03-14)
PROC: 5A12012 Performance of Cardiac Output, Single, Manual (ICD-10-PCS; 2019-03-14)
PROC: 05HM33Z Insertion of Infusion Device into Right Internal Jugular Vein, Percutaneous Approach (ICD-10-PCS; 2019-03-16)
PROC: B543ZZA Ultrasonography of Right Jugular Veins, Guidance (ICD-10-PCS; 2019-03-16)
PROC: 0B113F4 Bypass Trachea to Cutaneous with Tracheostomy Device, Percutaneous Approach (ICD-10-PCS; 2019-03-30)
PROC: 0BJ08ZZ Inspection of Tracheobronchial Tree, Via Natural or Artificial Opening Endoscopic (ICD-10-PCS; 2019-03-30)
PROC: 0DH63UZ Insertion of Feeding Device into Stomach, Percutaneous Approach (ICD-10-PCS; 2019-03-30)
DX: A41.9 Sepsis, unspecified organism (principal); R65.21 Severe sepsis with septic shock; N17.0 Acute kidney failure with tubular necrosis; J96.01 Acute respiratory failure with hypoxia; I46.9 Cardiac arrest, cause unspecified; G92 Toxic encephalopathy; J69.0 Pneumonitis due to inhalation of food and vomit; E87.0 Hyperosmolality and hypernatremia; D61.818 Other pancytopenia; N30.01 Acute cystitis with hematuria; E87.5 Hyperkalemia; I10 Essential (primary) hypertension; B19.20 Unspecified viral hepatitis C without hepatic coma; J44.9 Chronic obstructive pulmonary disease, unspecified; F03.90 Unspecified dementia, unspecified severity, without behavioral disturbance, psychotic disturbance, mood disturbance, and anxiety; E11.649 Type 2 diabetes mellitus with hypoglycemia without coma; F10.20 Alcohol dependence, uncomplicated; E86.0 Dehydration; D69.6 Thrombocytopenia, unspecified; R74.0 Nonspecific elevation of levels of transaminase and lactic acid dehydrogenase [LDH]; Z79.899 Other long term (current) drug therapy; Z87.442 Personal history of urinary calculi; Z82.49 Family history of ischemic heart disease and other diseases of the circulatory system
CPT/HCPCS: 31500; 36415; 36600; 70450; 71045; 74018; 80048; 80053; 80061; 80202; 81001; 82140; 82550; 82553; 82728; 82803; 82962; 83036; 83550; 84145; 84484; 85007; 85025; 85027; 86850; 86900; 86901; 87040; 87070; 87076; 87086; 87186; 87205; 93005; 93010; 93306; 94002; 94003; 94640; 96365; G0378; J0330; J0692; J0878; J1265; J1650; J1815; J1940; J2250; J2270; J2370; J2405; J2543; J2704; J3010; J3370; J7030; J7040; J7042; J7070; J7120; P9047